=== PATIENT | male | born 1965 | race African-American/Black ===

== ENCOUNTER 2016-03-12 15:49 | Emergency (ER) | payer SELFPAY ==
[~2016-03-12] VITALS: Ht 182.9 cm; Wt 124.7 kg
[~2016-03-12 15:49] MED LIST: ALLP300T PO; AMIT150T3 PO; AMIT25TA9 PO; AMIT50TA3 PO; ASP325T PO; ASP81TEC PO; ASPI-875 PO; ATOR10TA66 PO; CLOP75TA PO; COLC0.6T7 PO; CPR500T PO; CYCL10TA9 PO; DICL50TA4 PO; DULA0.75 SQ; FAMO20TA5 PO; FENO145T2 PO; GLIP5TAB26 PO; GLPZ5TCR PO; GLYB5TAB6; HYDR-1231 PO; HYDR-2858 PO; HYDR-3454 PO; HYDR-3714 PO; HYDR-3816 PO; HYDR1TAB PO; HYOS0.1217 PO; INDO50CA PO; INSASP10V SC; INSASP10V SQ; INSU100I14 SQ; INSU100I5 SQ; INSU100V16 SQ; INSU100V5 SQ; LISI-552 PO; LISI5TAB PO; LISI5TAB14 PO; MAGN400T6 PO; METF-380 PO; METF500T8 PO; METO-272 PO; METO50TA7 PO; NAPR-243 PO; NF-LOVAZAC; NTR.4SL SL; OMEP40CA36 PO; OMG1KC PO; ONDA-42 SL; ONDAN4ODT PO; OXC5T PO; OXYC-109 PO; OXYC20TA63; PNT40TEC PO; PROM25SU10 PR; PROM25TA14 PO; SUCR1ORA5 PO; SULF1TAB35 PO; TIZA2CAP9 PO; TMSL.4C PO; TRAM50TA2 PO; TRM50T PO; [UNRECOGNIZED DRUG - OTHER]; mega red PO
--- OUTSIDE RECORDS SUMMARY | 2016-03-12 15:55 | XMS REPORT | Continuity of Care Document ---
Author Author [facility] Organization [facility] Address Unknown Phone Unavailable Care Team Providers Care Anode Rebuilder Name Role Phone [facility] OF PCP Insurance Providers Payer Name Policy Number Subscriber Name Relationship Unknown Charles Abraham 20 Self / Same As Patient Advance Directives Directive Response Recorded Date/Time Advance Directives No 06/28/15 12:42am Health Care Power of Firer Locomotive Crane No 06/28/15 12:42am Organ Donor No 06/27/15 9:56pm Chief Complaint and Reason for Visit Chief Complaint Abdominal/GI Problems Reason for Visit [id number] Diarrhea [id number] Chronic renal failure Vomiting Problems Active Problems Medical Problem Onset Date Status Abdominal pain, acute, left upper quadrant Unknown Acute Chest pain Unknown Acute Cholelithiasis without obstruction Unknown Acute Chronic renal failure Unknown Acute Diabetes Unknown Acute Diabetes Unknown Acute Diabetes mellitus Unknown Acute Diarrhea Unknown Acute Encounter for medication refill Unknown Acute Encounter for medication refill Unknown Acute Gastroenteritis Unknown Acute Gastroenteritis Unknown Acute Gout of left knee Unknown Acute Hyperglycemia due to type 2 diabetes mellitus Unknown Acute Hypomagnesemia Unknown Acute Hypomagnesemia Unknown Acute Nausea and vomiting Unknown Acute Pancreatitis Unknown Acute Vomiting Unknown Acute Medications Current Home Medications Medication Dose Units Route Directions Days/Qty Instructions Start Date Allopurinol 300 Mg 300 Mg Oral Bedtime 06/28/09 Metoprolol Succinate 50 Mg 50 Mg Oral Bedtime 05/12/12 Glipizide 5 Mg 5 Mg Oral Bedtime 06/04/12 Hydroxyzine Hcl 50 Mg 50 Mg Oral Bedtime 06/04/12 Insulin Detemir 100 Unit/1 Ml 100 Unit Sub-Q Twice A Day 04/16/13 Metformin Hcl (Glucophage) 1,000 Mg 1 Each Oral Twice A Day With Meals 40 09/08/14 Lisinopril 20 Mg 20 Mg Oral Daily 0 06/28/15 Amitriptyline Hcl 50 Mg 100 Mg Oral Bedtime AD TO TAKE 2 TABS (TOTAL OF 100MG) @ HS AND MAY TAKE 3 TABS IF NEEDED 06/28/15 Tizanidine Hcl 2 Mg 2 Mg Oral Three Times A Day 0 FOR SPASMS AND MUSCLE RELAXER 06/28/15 Omeprazole 40 Mg 40 Mg Oral Daily 30 06/28/15 Hydrocodone/Acetaminophen 1 Each 1 Each Oral Every 6 Hours 8 01/02/16 Promethazine Hcl (Phenergan Tablet) 25 Mg 25 Mg Oral Every 8HRS as needed for Nausea/Vomiting 14 01/02/16 Past Home Medications Medication Directions Ordered Status Indomethacin 50 Mg Capsule, 1 Each Oral Three Times A Day 09/15/08 Discontinued Colchicine 0.6 Mg Tablet, 0 Oral As Directed 09/15/08 Discontinued Lisinopril (Zestril) 5 Mg Tablet, 5 Mg Oral Bedtime 04/11/09 Discontinued Glyburide (Micronase) 5 Mg Tablet, 04/11/09 Discontinued [id number] Ethyl Esters 1 Gm Capsule, 04/11/09 Discontinued Insulin Determir 100 Unit/1 Ml Insuln.pen, 100 Unit Sub-Q Twice A Day Discontinued Insulin Aspart 10 Unit/0.1 Ml Vial, 25 Unit Sub-Q Before Meals 04/11/09 Discontinued Oxycodone Hcl 20 Mg Tab.sr.12h, 04/11/09 Discontinued Promethazine Hcl 25 Mg Supp, 25 Mg Rectal Every 4HRS 05/23/09 Discontinued Oxycodone Hcl (Oxycodone Ir) 5 Mg Tab, 5 Mg Oral Every 4HRS 05/23/09 Discontinued Oxycodone Hcl/Acetaminophen 1 Each Tablet, 1 Each Oral Every 4HRS 05/23/09 Discontinued [Isobard] , Daily 01/07/11 Discontinued Clopidogrel Bisulfate 75 Mg Tablet, 75 Mg Oral Daily 01/07/11 Discontinued Acetaminophen/Hydrocodone Bitart 1 Each Tablet, 1 - 2 Each Oral Q4hr Prn 05/09 Discontinued Ciprofloxacin 500 Mg Tablet, 1 Tab Oral Twice A Day 11/27/11 Discontinued Naproxen 500 Mg Tablet, 1 Each Oral Three Times A Day And Prn 11/27/11 Discontinued Tramadol Hcl 50 Mg Tab, 50 Mg Oral Q4-6HOURS as needed 11/27/11 Discontinued Ondansetron Hcl 4 Mg Tab, 4 Mg Oral Every 4HRS 11/27/11 Discontinued Amitriptyline Hcl (Elavil) 25 Mg Tablet, 2 Each Oral Bedtime 03/26/12 Discontinued Atorvastatin Calcium 10 Mg Tablet, 10 Mg Oral Bedtime 03/27/12 Discontinued Fish Oil 1,000 Mg Cap, 1000 Mg Oral Three Times A Day 03/27/12 Discontinued Aspirin 81 Mg Tabec, 81 Mg Oral Daily 03/27/12 Discontinued Nitroglycerin 0.4 Mg Subl, 0.4 Mg Sublingual As Needed 05/12/12 Discontinued Amitriptyline Hcl 150 Mg Tablet, 25 Mg Oral Twice A Day 05/12/12 Discontinued Aspirin 325 Mg Tab, 81 Mg Oral Bedtime 06/04/12 Discontinued Insulin Aspart 10 Unit/0.1 Ml Susp, 6 Unit Subcutaneously Daily@06,11 Discontinued Insulin Aspart 10 Unit/0.1 Ml Susp, 15 Unit Subcutaneously Before Meals 06/04 Discontinued Amitriptyline Hcl (Elavil) 25 Mg Tablet, 1 Tab Oral Bedtime 06/04/12 Discontinued Fenofibrate 145 Mg Tablet, 1 Tab Oral Bedtime 06/04/12 Discontinued Tramadol Hcl 50 Mg Tablet, 50 Mg Oral As Needed 06/04/12 Discontinued [Josue Red] , 1 Tab Oral Bedtime 06/04/12 Discontinued Tramadol Hcl 50 Mg Tab, 50 Mg Oral Every 4HRS 07/10/12 Discontinued Aspirin 81 Mg Tablet.dr, 81 Mg Oral Bedtime 04/16/13 Discontinued Amitriptyline Hcl (Elavil) 50 Mg Tablet, 50 Mg Oral Daily 04/16/13 Discontinued Metformin Hcl (Glucophage Xr) 500 Mg Tab.sr.24h, 1000 Mg Oral Twice A Day Discontinued Cyclobenzaprine Hcl (Flexeril) 10 Mg Tablet, 10 Mg Oral Three Times A Day as needed for Muscle Spasms 04/16/13 Discontinued Tramadol Hcl 50 Mg Tablet, 50 Mg Oral Every 6 Hours as needed for Pain Discontinued Insulin Aspart 100 Unit/1 Ml Insuln.pen, 15 Units Sub-Q Three Times A Day Discontinued Hydrocodone Bit/Acetaminophen 1 Each Tablet, 1-2 Tab Oral Every 4HRS as needed for Pain 04/20/13 Discontinued Hydrocodone Bit/Acetaminophen 1 Tab Tablet, 1-2 Tab Oral Every 6 Hours as needed for Pain 11/06/13 Discontinued Ondansetron Hcl 4 Mg Tab, 4-8 Mg Sublingual Every 6 Hours as needed for Nausea /Vomiting 06/15/14 Discontinued Hyoscyamine Sulfate (Levsin) 0.125 Mg/Tab Tab.rapdis, 1-2 Each Oral Every 4HRS as needed for Diarrhea/Cramping 06/15/14 Discontinued Famotidine (Pepcid) 20 Mg Tablet, 1 Each Oral Twice A Day 06/15/14 Discontinued Magnesium Oxide 400 Mg Tablet, 1 Each Oral Twice A Day With Meals 06/15/14 Discontinued Lisinopril (Lisinopril 5MG) 5 Mg Tablet, 5 Mg Oral Daily 09/08/14 Discontinued Atorvastatin Calcium 10 Mg Tablet, 10 Mg Oral Daily 09/08/14 Discontinued Metoprolol Succinate (Toprol Xl) 50 Mg Tab.sr.24h, 1 Each Oral Daily Discontinued Glipizide (Glucotrol Xl) 5 Mg Tab.osm.24, 1 Each Oral Daily 09/08/14 Discontinued Hydroxyzine Hcl 50 Mg Tablet, 50 Mg Oral Bedtime 09/08/14 Discontinued Amitriptyline Hcl (Elavil) 50 Mg Tablet, 1 Each Oral Bedtime 09/08/14 Discontinued Cyclobenzaprine Hcl (Flexeril) 10 Mg Tablet, 1 Each Oral Every 8HRS as needed for Spasms 09/08/14 Discontinued Insulin Detemir 100 Unit/1 Ml Vial, 100 Unit Sub-Q Twice A Day 09/08/14 Discontinued Indomethacin 50 Mg Capsule, 1 Each Oral Three Times A Day 09/08/14 Discontinued Hydrocodone Bit/Acetaminophen 1 Tab Tablet, 1 Tab Oral Every 4HRS as needed for Pain 09/08/14 Discontinued Sulfamethoxazole/Trimethoprim 1 Each Tablet, 1 Each Oral Twice A Day Discontinued Sucralfate 1 Gm/10 Ml Oral.susp, 1 Gm Oral Qid Ac And Hs 01/12/15 Discontinued Indomethacin 50 Mg Capsule, 50 Mg Oral Three Times A Day 01/12/15 Discontinued Social History Social History Problem Response Recorded Date/Time Alcohol Use Occasionally Uses 06/28/2015 12:39am Recreational Drug Use No 06/28/2015 12:39am Recent Foreign Travel No 11/06/2013 9:25pm Recent Infectious Disease Exposure No 11/06/2013 9:25pm Hospitalization with Isolation Denies 11/06/2013 9:25pm Sexually Transmitted Disease No 01/02/2016 3:28pm HIV/AIDS No 01/02/2016 3:28pm Do you dip or chew tobacco? No 06/27/2015 9:56pm Recent Hopitalizations Y KIDNEY STONES AND GASTROENTERITIS 01/02/2016 3:28pm Sexually Transmitted Disease No 01/02/2016 3:28pm Hospitalization with Isolation Denies 11/06/2013 9:25pm Hospital Discharge Instructions No hospital discharge instructions. Plan of Care Discharge Date 01/02/16 7:05pm Disposition 01 HOME, SELF-CARE Condition at Discharge Stable Instructions/Education Provided Diarrhea in Adolescents and Adults Acute Abdomen (Belly Pain), Adult (DC) Nausea and Vomiting, Adult Prescriptions See Medication Section Referrals [facility] - Primary Care Physician Additional Instructions/Education All discharge instructions reviewed with patient and/or family. Voiced understanding. Clear liquid diet for 24 hours and then advance as tolerated. [facility] tomorrow at 8 a.m. Take medications as directed. Return for worse pain, fever, vomiting, weakness, breathing problems or other concerns as needed. Functional Status No functional status results. Allergies, Adverse Reactions, Alerts No known allergies. Immunizations No immunization records. Vital Signs Acute Vital Signs Vital Response Date/Time Temperature (Fahrenheit) 97.8 degrees F (97.6 - 99.5) 01/02/2016 3:26pm Temperature (Calculated Celsius) 36.85340 degrees C (36.4 - 37.5) 01/02/2016 3:26pm Temperature Source Tympanic 01/02/2016 3:26pm Pulse Rate (adult) 80 bpm (60 - 90) 01/02/2016 3:26pm Respiratory Rate 18 bpm (12 - 24) 01/02/2016 3:26pm O2 Sat by Pulse Oximetry 98 % (88 - 100) 01/02/2016 3:26pm Blood Pressure 131/100 mm Hg 01/02/2016 3:26pm Blood Pressure Mean 110 mm Hg 01/02/2016 3:26pm Pain Numeric Pain Scale 10-Worst Possible Pain 01/02/2016 4:05pm Pain Numeric Pain Scale 10-Worst Possible Pain 01/02/2016 4:05pm Height (Feet) 6 feet 01/02/2016 3:26pm Height (Inches) 1 inches 01/02/2016 3:26pm Height (Calculated Centimeters) 185.478475 cm 01/02/2016 3:26pm Weight (Pounds) 290 pounds 01/02/2016 3:26pm Weight (Calculated Kilograms) 131.336834 kilograms 01/02/2016 3:26pm Capillary Refill Capillary Refill Less Than 3 Seconds 01/02/2016 3:26pm Height 6 ft 1 in Weight 290 lb Body Mass Index 38.3 kg/m^2 Results Laboratory Results Test Name Result Units Flags Reference Collection Date/Time Result Date/ Time Comments White Blood Count 17.2 10^3/uL H 4.3-11.0 01/02/2016 3:35pm 01/02/2016 3: 56pm Red Blood Count 5.02 10^6/uL 4.35-5.85 01/02/2016 3:35pm 01/02/2016 3: 56pm Hemoglobin 13.7 G/DL 13.3-17.7 01/02/2016 3:35pm 01/02/2016 3:56pm Hematocrit 40 % 40-54 01/02/2016 3:35pm 01/02/2016 3:56pm Mean Corpuscular Volume 80 FL 80-99 01/02/2016 3:35pm 01/02/2016 3: 56pm Mean Corpuscular Hemoglobin 27 PG 25-34 01/02/2016 3:35pm 01/02/2016 3: 56pm Mean Corpuscular Hemoglobin Concent 34 G/DL 32-36 01/02/2016 3:35pm 05/2015 3:56pm Red Cell Distribution Width 14.9 % H 10.0-14.5 01/02/2016 3:35pm 2015 3:56pm Platelet Count 308 10^3/uL 130-400 01/02/2016 3:35pm 01/02/2016 3:56pm Mean Platelet Volume 10.3 FL 7.4-10.4 01/02/2016 3:35pm 01/02/2016 3: 56pm Neutrophils (%) (Auto) 87 % H 42-75 01/02/2016 3:35pm 01/02/2016 3:56pm Lymphocytes (%) (Auto) 8 % L 12-44 01/02/2016 3:35pm 01/02/2016 3:56pm Monocytes (%) (Auto) 4 % 0-12 01/02/2016 3:35pm 01/02/2016 3:56pm Eosinophils (%) (Auto) 1 % 0-10 01/02/2016 3:35pm 01/02/2016 3:56pm Basophils (%) (Auto) 0 % 0-10 01/02/2016 3:35pm 01/02/2016 3:56pm Neutrophils # (Auto) 15.0 X 10^3 H 1.8-7.8 01/02/2016 3:35pm 01/02/2016 3 :56pm Lymphocytes # (Auto) 1.4 X 10^3 1.0-4.0 01/02/2016 3:35pm 01/02/2016 3: 56pm Monocytes # (Auto) 0.6 X 10^3 0.0-1.0 01/02/2016 3:35pm 01/02/2016 3: 56pm Eosinophils # (Auto) 0.2 10^3/uL 0.0-0.3 01/02/2016 3:35pm 01/02/2016 3 :56pm Basophils # (Auto) 0.0 10^3/uL 0.0-0.1 01/02/2016 3:35pm 01/02/2016 3: 56pm Neutrophils % (Manual) 79 % 01/02/2016 3:35pm 01/02/2016 4:13pm Band Neutrophils 0 % 01/02/2016 3:35pm 01/02/2016 4:13pm Lymphocytes % (Manual) 15 % 01/02/2016 3:35pm 01/02/2016 4:13pm Monocytes % (Manual) 2 % 01/02/2016 3:35pm 01/02/2016 4:13pm Eosinophils % (Manual) 1 % 01/02/2016 3:35pm 01/02/2016 4:13pm Basophils % (Manual) 2 % 01/02/2016 3:35pm 01/02/2016 4:13pm Metamyelocytes % 1 % 01/02/2016 3:35pm 01/02/2016 4:13pm Blood Morphology Comment NORMAL 01/02/2016 3:35pm 01/02/2016 4: 13pm Urine Color YELLOW 01/02/2016 5:20pm 01/02/2016 5:46pm Urine Clarity CLEAR 01/02/2016 5:20pm 01/02/2016 5:46pm Urine pH 5 5-9 01/02/2016 5:20pm 01/02/2016 5:46pm Urine Specific Valentines 1.015 * 1.016-1.022 01/02/2016 5:20pm 2015 5:46pm Urine Protein 4+ NEGATIVE 01/02/2016 5:20pm 01/02/2016 5:46pm Urine Glucose (UA) 2+ * NEGATIVE 01/02/2016 5:20pm 01/02/2016 5:46pm Urine RBC (Auto) 3+ * NEGATIVE 01/02/2016 5:20pm 01/02/2016 5:46pm Urine Ketones NEGATIVE NEGATIVE 01/02/2016 5:pm 01/02/2016 5:46pm Urine Nitrite NEGATIVE NEGATIVE 01/02/2016 5:20pm 01/02/2016 5:46pm Urine Bilirubin NEGATIVE NEGATIVE 01/02/2016 5:20pm 01/02/2016 5: 46pm Urine Urobilinogen NORMAL MG/DL NORMAL 01/02/2016 5:20pm 01/02/2016 5: 46pm Urine Leukocyte Esterase 1+ * NEGATIVE 01/02/2016 5:20pm 01/02/2016 5: 46pm Urine RBC 5-10 /HPF * 01/02/2016 5:20pm 01/02/2016 5:46pm Urine WBC 10-25 /HPF * 01/02/2016 5:20pm 01/02/2016 5:46pm Urine Bacteria FEW /HPF * 01/02/2016 5:20pm 01/02/2016 5:46pm Urine Squamous Epithelial Cells 0-2 /HPF 01/02/2016 5:20pm 2015 5:46pm Urine Crystals NONE /LPF 01/02/2016 5:20pm 01/02/2016 5:46pm Urine Casts NONE /LPF 01/02/2016 5:20pm 01/02/2016 5:46pm Urine Mucus NEGATIVE /LPF 01/02/2016 5:20pm 01/02/2016 5:46pm Urine Culture Indicated YES 01/02/2016 5:20pm 01/02/2016 5:46pm Sodium Level 137 MMOL/L 135-145 01/02/2016 3:35pm 01/02/2016 4:10pm Potassium Level 4.7 MMOL/L 3.6-5.0 01/02/2016 3:35pm 01/02/2016 4:10pm Chloride Level 107 MMOL/L 98-107 01/02/2016 3:35pm 01/02/2016 4:10pm Carbon Dioxide Level 16 MMOL/L L 21-32 01/02/2016 3:35pm 01/02/2016 4: 10pm Anion Gap 14 MMOL/L 5-14 01/02/2016 3:35pm 01/02/2016 4:10pm Blood Urea Nitrogen 32 MG/DL H 7-18 01/02/2016 3:35pm 01/02/2016 4:10pm Creatinine 2.59 MG/DL H 0.60-1.30 01/02/2016 3:35pm 01/02/2016 4:10pm BUN/Creatinine Ratio 12 01/02/2016 3:35pm 01/02/2016 4:10pm Estimat Glomerular Filtration Rate 32 01/02/2016 3:35pm 01/02/2016 4:10pm GFR INTERPRETIVE DATA UNITS FOR ESTIMATED GFR (eGFR): mL/min/1.73 M2 REFERENCE RANGE FOR ESTIMATED GFR (eGFR) eGFR NORMAL eGFR >60 MODERATELY DECREASED eGFR 30-59 SEVERLY DECREASED eGFR 15-29 KIDNEY FAILURE <15 (OR DIALYSIS) Glucose Level 302 MG/DL H 70-105 01/02/2016 3:35pm 01/02/2016 4:10pm Calcium Level 9.4 MG/DL 8.5-10.1 01/02/2016 3:35pm 01/02/2016 4:10pm Total Bilirubin 0.3 MG/DL 0.1-1.0 01/02/2016 3:35pm 01/02/2016 4:10pm Alkaline Phosphatase 89 U/L 40-136 01/02/2016 3:35pm 01/02/2016 4:10pm Aspartate Amino Transf (AST/SGOT) 17 U/L 5-34 01/02/2016 3:35pm 2015 4:10pm Alanine Aminotransferase (ALT/SGPT) 19 U/L 0-55 01/02/2016 3:35pm 01/01 4:10pm Total Protein 7.4 G/DL 6.4-8.2 01/02/2016 3:35pm 01/02/2016 4:10pm Albumin 3.8 G/DL 3.2-4.5 01/02/2016 3:35pm 01/02/2016 4:10pm Lipase 54 U/L 8-78 01/02/2016 3:35pm 01/02/2016 4:10pm Procedures No known history of procedures. Encounters Encounter Location Arrival/Admit Date Discharge/Depart Date Attending Provider Departed Emergency Room [facility] 01/02/16 3:14pm 01/01 7:05pm ROSALIE BURDICK MD Recent Diagnosis
[2016-03-12 16:09] VITALS: BP 187/97
[2016-03-12] MEDS ORDERED: HYDROcodone/APAP 5 MG/325 MG (LORTAB) TAB PO ONE (17:15)
[2016-03-12 17:31] LABS: BASOPHILS % (AUTO) 0 % (0-10); EOSINOPHILS # (AUTO) 0.1 10^3/uL (0.0-0.3); EOSINOPHILS % (AUTO) 1 % (0-10); LYMPHOCYTES # (AUTO) 2.1 X 10^3 (1.0-4.0); LYMPHOCYTES % (AUTO) 13 % (12-44); MEAN CORPUSCULAR HEMOGLOBIN 28 PG (25-34); MEAN CORPUSCULAR HGB CONC 33 G/DL (32-36); MEAN CORPUSCULAR VOLUME 83 FL (80-99); MEAN PLATELET VOLUME 10.7 FL (7.4-10.4); MONOCYTES # (AUTO) 0.8 X 10^3 (0.0-1.0); MONOCYTES % (AUTO) 5 % (0-12); NEUTROPHILS # (AUTO) 12.9 X 10^3 (1.8-7.8); NEUTROPHILS % (AUTO) 81 % (42-75); PLATELET COUNT 249 10^3/uL (130-400); RED CELL DISTRIBUTION WIDTH 16.1 % (10.0-14.5)
[2016-03-12] MEDS ORDERED: fentaNYL INJECTION 100 MCG/2 ML AMP IM ONE (17:45)
--- NOTE | 2016-03-12 17:49 | ED Lower Extremity ---
General Chief Complaint: Lower Extremity Stated Complaint: R FOOT SWELLING Nursing Triage Note: TO ROOM 06 VIA WC. COMPLAINS OF SEVERE RIGHT FOOT PAIN AND SWELLING X2 DAYS. DENIES INJURY. THINKS IT MIGHT BE GOUT. PT HAS RAN OUT OF HYDROCODONE. Nursing Sepsis Screen: No Definite Risk Source: patient Exam Limitations: no limitations History of Present Illness Time seen by provider: 17:44 Initial Comments To ER accompanied by his with reports of right foot pain for 2 days. Denies injury. He was recently treated for gouty arthropathy of the right knee with steroids. He is also diabetic. He denies fevers or chills. He finished his prednisone about 10 days. Onset: other (2 days ago) Severity: severe Pain/Injury Location: right foot Method of Injury: unknown Modifying Factors: Worse With Movement Allergies and Home Medications Allergies Coded Allergies: No Known Drug Allergies (Unverified , 09/15/08) Home Medications Allopurinol 300 Mg Tablet 300 MG PO HS (Reported) Amitriptyline HCl 50 Mg Tablet #AD 100 MG PO HS TO TAKE 2 TABS (TOTAL OF 100MG) @ HS AND MAY TAKE 3 TABS IF NEEDED Prescribed by: TANNER LONG on 06/28/15 1131 Diclofenac Potassium 50 Mg Tablet #30 50 MG PO Q6H PRN PRN ankle pain/swelling Prescribed by: JOS QUIROZ on 01/09/16 1646 Dulaglutide 0.75 Mg/0.5 Ml Pen.injctr 0.75 MG SQ WEEK (Reported) Hydrocodone/Acetaminophen 1 Each Tablet #8 1 EACH PO Q6H Prescribed by: ROSALIE BURDICK on 01/02/16 1843 Insulin Aspart 100 Unit/1 Ml Susp 30 UNIT SQ AC (Reported) Insulin Detemir 100 Unit/1 Ml Vial 100 UNIT SQ BID (Reported) Metoprolol Succinate 50 Mg Tab 50 MG PO HS (Reported) Omeprazole 40 Mg Capsule.dr #30 40 MG PO DAILY Prescribed by: KAYA BLOOD on 06/28/15 1142 Promethazine HCl 25 Mg Tablet #14 25 MG PO Q8H PRN PRN NAUSEA/VOMITING Prescribed by: ROSALIE BURDICK on 01/02/16 1843 Promethazine HCl 25 Mg Tablet 25 MG PO Q6H PRN PRN NAUSEA/VOMITING (Reported) Tizanidine HCl 2 Mg Capsule #0 2 MG PO TID FOR SPASMS AND MUSCLE RELAXER Prescribed by: TANNER LONG on 06/28/15 1133 Constitutional: see HPI EENTM: see HPI Respiratory: no symptoms reported Cardiovascular: no symptoms reported Genitourinary: no symptoms reported Musculoskeletal: see HPI Skin: see HPI Psychiatric/Neurological: No Symptoms Reported Past Lhvlxzl-Ekjgln-Pvwach Hx Patient Social History Recent Foreign Travel: No Contact w/Someone Who Travel: No Recent Infectious Disease Expo: No Recent Hopitalizations: Yes (KIDNEY STONES AND GASTROENTERITIS) Immunizations Up To Date Tetanus Booster (TDap): More than 5yrs PED Vaccines UTD: Yes Date of Influenza Vaccine: Dec 29, 2010 Seasonal Allergies Seasonal Allergies: No Surgeries HX Surgeries: Yes ("GROWTH UNDER ABDOMEN" REMOVED-BENIGN, PER PT. URETERAL STENTS ) Surgeries: Abdominal, Gallbladder, Renal Respiratory Hx Respiratory Disorders: No Cardiovascular Hx Cardiac Disorders: Yes (has had 2 stents in the past) Cardiac Disorders: High Cholesterol, Hypertension Neurological Hx Neurological Disorders: No Reproductive System Hx Reproductive Disorders: No Sexually Transmitted Disease: No HIV/AIDS: No Genitourinary Hx Genitourinary Disorders: Yes Genitourinary Disorders: Kidney Infection, Kidney Stones Gastrointestinal Hx Gastrointestinal Disorders: Yes Gastrointestinal Disorders: Gastroesophageal Reflux, Gall Bladder Disease Musculoskeletal Hx Musculoskeletal Disorders: Yes (R KNEE PAIN) Musculoskeletal Disorders: Gout Endocrine Hx Endocrine Disorders: Yes Endocrine Disorders: Diabetes, Insulin dep HEENT HX ENT Disorders: No Cancer Hx Cancer: No Psychosocial Hx Psychiatric Problems: Yes Behavioral Health Disorders: Anxiety Integumentary HX Skin/Integumentary Disorder: No Blood Transfusions Hx Blood Disorders: No Adverse Reaction to a Blood Tr: No Family Medical History Significant Family History: No Pertinent Family Hx Family Medial History: Chest pain 03 MOTHER Family history: Arthritis 03 MOTHER Family history: Diabetes mellitus 03 MOTHER 09 BROTHER Family history: Gastrointestinal disease 03 MOTHER 09 BROTHER Family history: Thyroid disorder 03 MOTHER Headache 03 MOTHER Hypercholesterolemia 03 FATHER 03 MOTHER 09 BROTHER Myocardial infarction 03 FATHER 03 MOTHER No Family History of: Abdominal aortic aneurysm Niraj's disease Alcoholism Aphasia Cancer Cancer of colon Cataract Congenital heart disease Congestive heart failure Cystic fibrosis Dementia Dysphagia Family history: Allergy Family history: Alzheimer's disease Family history: Asthma Family history: Breast disease Family history: Cardiovascular disease Family history: Coronary thrombosis Family history: Glaucoma Family history: Hypertension Family history: Osteoporosis Hearing loss Heart disease Hereditary disease History of - anemia History of - disorder History of - respiratory disease History of drug abuse Human immunodeficiency virus (HIV) seropositivity Kidney disease Malignant neoplasm of lung Parkinson's disease Prostate cancer Psychotic disorder Seizure disorder Stroke Tuberculosis Visual impairment Physical Exam Vital Signs Vital Sign - Last 12Hours 03/12/16 16:09 Temp 99.7 Pulse 98 Resp 18 B/P 187/97 Pulse Ox 93 O2 Delivery Room Air Capillary Refill : Less Than 3 Seconds General Appearance: WD/WN no apparent distress HEENT: PERRL/EOMI normal ENT inspection Neck: non-tender full range of motion Respiratory: no respiratory distress no accessory muscle use Hips: bilateral hip non-tender, bilateral hip normal inspection, bilateral hip normal range of motion Legs: bilateral leg non-tender, bilateral leg normal inspection, bilateral leg normal range of motion Knees: bilateral knee non-tender, bilateral knee normal inspection, bilateral knee normal range of motion Ankles: bilateral ankle non-tender, bilateral ankle normal inspection, bilateral ankle normal range of motion Feet: right foot swelling (there is mild swelling of the right foot with most of the tenderness being over the dorsal aspect of the midfoot. There is no particular pain over the first MTP joint. There is no redness swelling or pain to the calf or leg.) Neurologic/Psychiatric: alert normal mood/affect oriented x 3 Skin: normal color warm/dry Progress/Results/Core Measures Results/Orders Lab Results Laboratory Tests Test 03/12/16 17:06 Range/Units Band Neutrophils 0 % Basophils # (Auto) 0.0 0.0-0.1 10^3/uL Basophils % (Manual) 0 % Basophils (%) (Auto) 0 0-10 % Blood Morphology Comment NORMAL C-Reactive Protein High Sensitivity 8.85 H 0.00-0.50 MG/DL Eosinophils # (Auto) 0.1 0.0-0.3 10^3/uL Eosinophils % (Manual) 0 % Eosinophils (%) (Auto) 1 0-10 % Hematocrit 36 L 40-54 % Hemoglobin 12.1 L 13.3-17.7 G/DL Lymphocytes # (Auto) 2.1 1.0-4.0 X 10^3 Lymphocytes % (Manual) 20 % Lymphocytes (%) (Auto) 13 12-44 % Mean Corpuscular Hemoglobin 28 25-34 PG Mean Corpuscular Hemoglobin Concent 33 32-36 G/DL Mean Corpuscular Volume 83 80-99 FL Mean Platelet Volume 10.7 H 7.4-10.4 FL Monocytes # (Auto) 0.8 0.0-1.0 X 10^3 Monocytes % (Manual) 1 % Monocytes (%) (Auto) 5 0-12 % Neutrophils # (Auto) 12.9 H 1.8-7.8 X 10^3 Neutrophils % (Manual) 77 % Neutrophils (%) (Auto) 81 H 42-75 % Platelet Count 249 130-400 10^3/uL Reactive Lymphocytes 2 % Red Blood Count 4.40 4.35-5.85 10^6/uL Red Cell Distribution Width 16.1 H 10.0-14.5 % White Blood Count 16.0 H 4.3-11.0 10^3/uL My Orders Orders-BENJAMIN ANAND APRN Cbc With Automated Diff (03/12/16 16:34) Hs C Reactive Protein (03/12/16 16:34) Hydrocodone/Apap 5/325 Tablet (Lortab 5 (03/12/16 17:15) Foot, Right, 3 View (03/12/16 17:23) Manual Differential (03/12/16 17:06) Basic Metabolic Panel (03/12/16 17:40) Fentanyl Injection (Sublimaze Injection (03/12/16 17:45) Amoxicillin/Clavulanate Tablet (Augmenti (03/12/16 18:00) Medications Given in ED Current Medications Medications Dose Ordered Sig/Augusto Route Start Time Stop Time Status Last Admin Dose Admin Acetaminophen/ Hydrocodone Bitart 1 tab ONCE ONCE PO 03/12/16 17:15 03/12/16 17:16 DC 03/12/16 17:13 1 TAB Fentanyl Citrate 75 mcg ONCE ONCE IM 03/12/16 17:45 03/12/16 17:46 DC 03/12/16 17:58 75 MCG Vital Signs/I&O Vital Sign - Last 12Hours 03/12/16 16:09 Temp 99.7 Pulse 98 Resp 18 B/P 187/97 Pulse Ox 93 O2 Delivery Room Air Blood Pressure Mean: 127 Diagnostic Imaging Diagonstic Imaging: Xray Comments NAME: EVA ABRAHAM [facility] REC#: [id number] PT STATUS: REG ER : 1965 PHYSICIAN: BENJAMIN ANAND APRN ADMIT DATE: 03/12/16/ER Draft Date of Exam:03/12/16 FOOT, RIGHT, 3 VIEW INDICATION: Right foot pain and swelling. EXAMINATION: Three views of the right foot were obtained. FINDINGS: The alignment of the foot is normal. There are mild degenerative changes. There is no fracture or dislocation. There is some degenerative spurring of the inferior calcaneus. There are vascular calcifications. IMPRESSION: Mild degenerative changes; however, no acute fracture or dislocation. Dictated on workstation # [id number] Dict: 03/12/16 1745 Trans: 03/12/16 1749 [facility] [id number] Interpreted by: BISI MOREL Electronically signed by: Departure Impression Impression: Primary Impression: Cellulitis of foot Disposition: HOME, SELF-CARE Condition: Stable Departure-Patient Inst. Decision time for Depature: 17:51 Referrals: [facility] (PCP/Family) Primary Care Physician Patient Instructions: Cellulitis (Skin Infection), Adult (DC) Add. Discharge Instructions: 1. REturn to Er for any fevers, worsening swelling or redness 2. Antibiotics as directed. This is far more important than pain medication so if you can only afford one medication, choose the antibiotics 3. Follow-up with [facility] walk-in clinic on Tuesday. All discharge instructions reviewed with patient and/or family. Voiced understanding. Scripts Oxycodone HCl/Acetaminophen (Percocet 5-325 mg Tablet)1 Each Tablet1 Each PO Q4H PRN PAIN #10 TAB Do not fill unless the Augmentin is also filled Prov:BENJAMIN ANAND PIGMENT FURNACE TENDER 03/12/16 Amoxicillin/Potassium Clav (Augmentin 875-125 Tablet)1 Each Tablet1 Each PO BID #20 TAB Prov:BENJAMIN ANAND PIGMENT FURNACE TENDER 03/12/16 BENJAMIN ANAND PIGMENT FURNACE TENDER Mar 12, 2016 17:48
[2016-03-12 17:50] LABS: BAND NEUTROPHILS 0 %; BASOPHILS % (MANUAL) 0 %; EOSINOPHILS % (MANUAL) 0 %; LYMPHOCYTES % (MANUAL) 20 %; NEUTROPHILS % (MANUAL) 77 %; REACTIVE LYMPHOCYTES 2 %
[2016-03-12] MEDS ORDERED: AUGMENTIN 875 MG TAB (AMOXICILLIN/CLAVULANATE) PO SCH (18:00)
[2016-03-12 18:03] LABS: CALCIUM 9.2 MG/DL (8.5-10.1); CREATININE SERUM 2.29 MG/DL (0.60-1.30); POTASSIUM 4.1 MMOL/L (3.6-5.0)
[2016-03-12] MEDS ORDERED: AMOX-358 PO (18:03)
[2016-03-12] MEDS ORDERED: OXYC-197 PO (18:03)
== END 2016-03-12 18:18 | disposition home or self-care (01) ==
LOC: EDUNIT# 15:49 → ER 15:50
DX: L03.115 Cellulitis of right lower limb (principal); I10 Essential (primary) hypertension; E11.9 Type 2 diabetes mellitus without complications; Z79.899 Other long term (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 therapy; Z79.4 Long term (current) use of insulin; Z95.5 Presence of coronary angioplasty implant and graft
CPT/HCPCS: 36415; 73630; 80048; 85007; 85027; 86141; 96372; 99281

== ENCOUNTER 2016-03-18 14:01 | Emergency (ER) | payer SELFPAY ==
[~2016-03-18] VITALS: Ht 185.4 cm; Wt 124.7 kg
[~2016-03-18 14:01] MED LIST changes: +AMOX-358 PO; +OXYC-197 PO
--- OUTSIDE RECORDS SUMMARY | 2016-03-18 14:08 | XMS REPORT | Continuity of Care Document ---
Author Author [facility] Organization [facility] Address Unknown Phone Unavailable Care Team Providers Care Casino Runner Name Role Phone [facility] Insurance Providers Payer Name Policy Number Subscriber Name Relationship Unknown Charles Abraham 20 Self / Same As Patient Advance Directives Directive Response Recorded Date/Time Advance Directives No 06/28/15 12:42am Health Care Power of Pharmacy Clinical Specialist No 06/28/15 12:42am Organ Donor No 06/27/15 9:56pm Chief Complaint and Reason for Visit Chief Complaint Abdominal/GI Problems Reason for Visit [id number] Diarrhea [id number] Chronic renal failure Vomiting Problems Active Problems [...] Glyburide (Micronase) 5 Mg Tablet, 04/11/09 Discontinued [id number]-[id number] Ethyl Esters 1 Gm Capsule, 04/11/09 Discontinued [...] Vomiting, Adult Prescriptions See Medication Section Referrals [facility] - Primary Care Physician Additional Instructions/Education All discharge instructions reviewed with patient and/or family. Voiced understanding. Clear liquid diet for 24 hours and then advance as tolerated. Follow-up with the [facility] walk-in clinic tomorrow at 8 a.m. Take medications as directed. Return for worse pain, fever, vomiting, weakness, breathing problems or other concerns as needed. Functional Status No functional status results. Allergies, Adverse Reactions, Alerts No known allergies. Immunizations No immunization records. Vital Signs Acute Vital Signs Vital Response Date/Time Temperature (Fahrenheit) 97.8 degrees F (97.6 - 99.5) 01/02/2016 3:26pm Temperature (Calculated Celsius) 36.04529 degrees C (36.4 - 37.5) 01/02/2016 3:26pm [...] 1 inches 01/02/2016 3:26pm Height (Calculated Centimeters) 185.284363 cm 01/02/2016 3:26pm Weight (Pounds) 290 pounds 01/02/2016 3:26pm Weight (Calculated Kilograms) 131.089250 kilograms 01/02/2016 3:26pm Capillary Refill Capillary Refill [...] 5-9 01/02/2016 5:20pm 01/02/2016 5:46pm Urine Specific [place] 1.015 * 1.016-1.022 01/02/2016 5:20pm 2015 5:46pm [...] Date Attending Provider Departed Emergency Room [facility] 01/02/16 3:14pm 01/01 7:05pm ROSALIE BURDICK MD Recent Diagnosis
--- NOTE | 2016-03-18 16:53 | ED Lower Extremity ---
General Chief Complaint: Lower Extremity Stated Complaint: RIGHT FOOT PAIN Nursing Triage Note: PT TO ED 10 W/ C/O RT FOOT PAIN. PT REPORTS WAS SEEN IN THIS ED OVER THE PAST WEEK ET AT PCP'S ET DENIES IMPROVEMENT. NO OTHER C/O VOICED Nursing Sepsis Screen: No Definite Risk (MIKHAIL ARCHIBALD) History of Present Illness Time seen by provider: 16:10 Initial Comments Evaluation of continued right foot pain and swelling. (MIKHAIL ARCHIBALD) Allergies and Home Medications Allergies Coded Allergies: No Known Drug Allergies (Unverified , 09/15/08) Home Medications Allopurinol 300 Mg Tablet 300 MG PO HS (Reported) Amitriptyline HCl 50 Mg Tablet #AD 100 MG PO HS TO TAKE 2 TABS (TOTAL OF 100MG) @ HS AND MAY TAKE 3 TABS IF NEEDED Prescribed by: TANNER LONG on 06/28/15 1131 Amoxicillin/Potassium Clav 1 Each Tablet #20 1 EACH PO BID Prescribed by: BENJAMIN ANAND on 03/12/16 180 Diclofenac Potassium 50 Mg Tablet #30 50 MG PO Q6H PRN PRN ankle pain/swelling Prescribed by: JOS QUIROZ on 01/09/16 1646 Dulaglutide 0.75 Mg/0.5 Ml Pen.injctr 0.75 MG SQ WEEK (Reported) Hydrocodone/Acetaminophen 1 Each Tablet #8 1 EACH PO Q6H Prescribed by: ROSALIE BURDICK on 01/02/16 1843 Insulin Aspart 100 Unit/1 Ml Susp 30 UNIT SQ AC (Reported) Insulin Detemir 100 Unit/1 Ml Vial 100 UNIT SQ BID (Reported) Metoprolol Succinate 50 Mg Tab 50 MG PO HS (Reported) Naproxen 500 Mg Tablet #40 500 MG PO Q12H Prescribed by: MIKHAIL ARCHIBALD on 03/18/16 1737 Omeprazole 40 Mg Capsule.dr #30 40 MG PO DAILY Prescribed by: KAYA BLOOD on 06/28/15 1142 Oxycodone HCl/Acetaminophen 1 Each Tablet #10 1 EACH PO Q4H PRN PRN PAIN Do not fill unless the Augmentin is also filled Prescribed by: BENJAMIN ANAND on 03/12/16 1803 Promethazine HCl 25 Mg Tablet #14 25 MG PO Q8H PRN PRN NAUSEA/VOMITING Prescribed by: ROSALIE BURDICK on 01/02/16 1843 Promethazine HCl 25 Mg Tablet 25 MG PO Q6H PRN PRN NAUSEA/VOMITING (Reported) Tizanidine HCl 2 Mg Capsule #0 2 MG PO TID FOR SPASMS AND MUSCLE RELAXER Prescribed by: TANNER LONG on 06/28/15 1133 Constitutional: no symptoms reported see HPI EENTM: no symptoms reported see HPI Respiratory: no symptoms reported see HPI Cardiovascular: no symptoms reported see HPI Gastrointestinal: no symptoms reported see HPI Genitourinary: no symptoms reported see HPI Musculoskeletal: see HPI joint pain muscle pain other (Swelling, soft tissue tenderness, no erythema. Right foot. Sensation intact, pedal pulses 1+ and symmetric) Skin: no symptoms reported see HPI Psychiatric/Neurological: No Symptoms Reported See HPI (MIKHAIL ARCHIBALD) All Other Systems Reviewed Negative Unless Noted: Yes (MIKHAIL ARCHIBALD) Past Xypsdhd-Tfdkku-Cvbrfo Hx Patient Social History Alcohol Use: Rarely Uses Recreational Drug Use: Yes (MARIJUANA) Smoking Status: Current Everyday Smoker Recent Foreign Travel: No Contact w/Someone Who Travel: No Recent Infectious Disease Expo: No Recent Hopitalizations: Yes (KIDNEY STONES AND GASTROENTERITIS) Physical Abuse Screen: No Sexual Abuse: No (MIKHAIL ARCHIBALD) Immunizations Up To Date Tetanus Booster (TDap): More than 5yrs PED Vaccines UTD: Yes Date of Influenza Vaccine: Dec 29, 2010 (MIKHAIL ARCHIBALD) Seasonal Allergies Seasonal Allergies: No (MIKHAIL ARCHIBALD) Surgeries HX Surgeries: Yes ("GROWTH UNDER ABDOMEN" REMOVED-BENIGN, PER PT. URETERAL STENTS ) Surgeries: Abdominal, Gallbladder, Renal (MIKHAIL ARCHIBALD) Respiratory Hx Respiratory Disorders: No (MIKHAIL ARCHIBALD) Cardiovascular Hx Cardiac Disorders: Yes (has had 2 stents in the past) Cardiac Disorders: High Cholesterol, Hypertension (MIKHAIL ARCHIBALD) Neurological Hx Neurological Disorders: No (MIKHAIL ARCHIBALD) Reproductive System Hx Reproductive Disorders: No Sexually Transmitted Disease: No HIV/AIDS: No (MIKHAIL ARCHIBALD) Genitourinary Hx Genitourinary Disorders: Yes Genitourinary Disorders: Kidney Infection, Kidney Stones (MIKHAIL ARCHIBALD) Gastrointestinal Hx Gastrointestinal Disorders: Yes Gastrointestinal Disorders: Gastroesophageal Reflux, Gall Bladder Disease (MIKHAIL ARCHIBALD) Musculoskeletal Hx Musculoskeletal Disorders: Yes (R KNEE PAIN) Musculoskeletal Disorders: Gout (MIKHAIL ARCHIBALD) Endocrine Hx Endocrine Disorders: Yes Endocrine Disorders: Diabetes, Insulin dep (MIKHAIL ARCHIBALD) HEENT HX ENT Disorders: No (MIKHAIL ARCHIBALD) Cancer Hx Cancer: No (MIKHAIL ARCHIBALD) Psychosocial Hx Psychiatric Problems: Yes Behavioral Health Disorders: Anxiety (MIKHAIL ARCHIBALD) Integumentary HX Skin/Integumentary Disorder: No (MIKHAIL ARCHIBALD) Blood Transfusions Hx Blood Disorders: No Adverse Reaction to a Blood Tr: No (MIKHAIL ARCHIBALD) Reviewed Nursing Assessment Reviewed/Agree w Nursing PMH: Yes (MIKHAIL ARCHIBALD) Family Medical History Significant Family History: No Pertinent Family Hx Family Medial History: Chest pain 03 MOTHER Family history: Arthritis 03 MOTHER Family history: Diabetes mellitus 03 MOTHER 09 BROTHER Family history: Gastrointestinal disease 03 MOTHER 09 BROTHER Family history: Thyroid disorder 03 MOTHER Headache 03 MOTHER Hypercholesterolemia 03 FATHER 03 MOTHER 09 BROTHER Myocardial infarction 03 FATHER 03 MOTHER No Family History of: Abdominal aortic aneurysm [place] disease Alcoholism Aphasia Cancer Cancer of colon Cataract Congenital heart disease Congestive heart failure Cystic fibrosis Dementia Dysphagia Family history: Allergy Family history: Alzheimer's disease Family history: Asthma Family history: Breast disease Family history: Cardiovascular disease Family history: Coronary thrombosis Family history: Glaucoma Family history: Hypertension Family history: Osteoporosis Hearing loss Heart disease Hereditary disease History of - anemia History of - disorder History of - respiratory disease History of drug abuse Human immunodeficiency virus (HIV) seropositivity Kidney disease Malignant neoplasm of lung Parkinson's disease Prostate cancer Psychotic disorder Seizure disorder Stroke Tuberculosis Visual impairment (MIKHAIL ARCHIBALD) Family Medial History: Chest pain 03 MOTHER Family history: Arthritis 03 MOTHER Family history: Diabetes mellitus 03 MOTHER 09 BROTHER Family history: Gastrointestinal disease 03 MOTHER 09 BROTHER Family history: Thyroid disorder 03 MOTHER Headache 03 MOTHER Hypercholesterolemia 03 FATHER 03 MOTHER 09 BROTHER Myocardial infarction 03 FATHER 03 MOTHER No Family History of: Abdominal aortic aneurysm Niraj's disease Alcoholism Aphasia Cancer Cancer of colon Cataract Congenital heart disease Congestive heart failure Cystic fibrosis Dementia Dysphagia Family history: Allergy Family history: Alzheimer's disease Family history: Asthma Family history: Breast disease Family history: Cardiovascular disease Family history: Coronary thrombosis Family history: Glaucoma Family history: Hypertension Family history: Osteoporosis Hearing loss Heart disease Hereditary disease History of - anemia History of - disorder History of - respiratory disease History of drug abuse Human immunodeficiency virus (HIV) seropositivity Kidney disease Malignant neoplasm of lung Parkinson's disease Prostate cancer Psychotic disorder Seizure disorder Stroke Tuberculosis Visual impairment (ROSALIE BURDICK MD) Physical Exam Vital Signs Vital Sign - Last 12Hours 03/18/16 14:48 Temp 98.4 Pulse 84 Resp 20 B/P 155/94 Pulse Ox 96 O2 Delivery Room Air (ROSALIE BURDICK MD) Vital Signs Capillary Refill : Less Than 3 Seconds (MIKHAIL ARCHIBALD) General Appearance: WD/WN no apparent distress HEENT: PERRL/EOMI normal ENT inspection TMs normal pharynx normal Neck: non-tender full range of motion supple normal inspection Cardiovascular: normal peripheral pulses regular rate, rhythm no murmur Respiratory: chest non-tender lungs clear normal breath sounds no respiratory distress Gastrointestinal: normal bowel sounds non tender soft Hips: bilateral hip non-tender, bilateral hip normal inspection, bilateral hip normal range of motion Knees: right knee non-tender, right knee normal inspection, right knee normal range of motion, left knee pain, left knee soft tissue tenderness (no effusion) Ankles: bilateral ankle non-tender, bilateral ankle normal inspection, bilateral ankle normal range of motion Feet: left foot non-tender, left foot normal inspection, left foot normal range of motion, left foot no evidence of injury, right foot pain, right foot soft tissue tenderness, right foot swelling Neurologic/Tendon: normal sensation normal motor functions normal tendon functions Neurologic/Psychiatric: no motor/sensory deficits alert normal mood/affect oriented x 3 Skin: normal color warm/dry Lymphatic: no adenopathy (MIKHAIL ARCHIBALD) Progress/Results/Core Measures Results/Orders Lab Results Laboratory Tests Test 03/18/16 17:00 Range/Units Alanine Aminotransferase (ALT/SGPT) 17 0-55 U/L Albumin 3.3 3.2-4.5 G/DL Alkaline Phosphatase 77 40-136 U/L Anion Gap 11 5-14 MMOL/L Aspartate Amino Transf (AST/SGOT) 18 5-34 U/L BUN/Creatinine Ratio 9 Basophils # (Auto) 0.0 0.0-0.1 10^3/uL Basophils (%) (Auto) 0 0-10 % Blood Urea Nitrogen 21 H 7-18 MG/DL Calcium Level 9.3 8.5-10.1 MG/DL Carbon Dioxide Level 25 21-32 MMOL/L Chloride Level 104 98-107 MMOL/L Creatinine 2.29 H 0.60-1.30 MG/DL Eosinophils # (Auto) 0.2 0.0-0.3 10^3/uL Eosinophils (%) (Auto) 2 0-10 % Estimat Glomerular Filtration Rate 37 Glucose Level 136 H 70-105 MG/DL Hematocrit 39 L 40-54 % Hemoglobin 13.1 L 13.3-17.7 G/DL Lymphocytes # (Auto) 1.7 1.0-4.0 X 10^3 Lymphocytes (%) (Auto) 14 12-44 % Mean Corpuscular Hemoglobin 28 25-34 PG Mean Corpuscular Hemoglobin Concent 33 32-36 G/DL Mean Corpuscular Volume 83 80-99 FL Mean Platelet Volume 9.4 7.4-10.4 FL Monocytes # (Auto) 0.6 0.0-1.0 X 10^3 Monocytes (%) (Auto) 5 0-12 % Neutrophils # (Auto) 9.9 H 1.8-7.8 X 10^3 Neutrophils (%) (Auto) 80 H 42-75 % Platelet Count 280 130-400 10^3/uL Potassium Level 4.4 3.6-5.0 MMOL/L Red Blood Count 4.72 4.35-5.85 10^6/uL Red Cell Distribution Width 16.2 H 10.0-14.5 % Sodium Level 140 135-145 MMOL/L Total Bilirubin 0.2 0.1-1.0 MG/DL Total Protein 6.7 6.4-8.2 G/DL White Blood Count 12.5 H 4.3-11.0 10^3/uL (ROSALIE BURDICK MD) Vital Signs/I&O Vital Sign - Last 12Hours 03/18/16 03/18/16 14:48 17:39 Temp 98.4 Pulse 84 88 Resp 20 20 B/P 155/94 Pulse Ox 96 98 O2 Delivery Room Air Room Air (ROSALIE BURDICK MD) Blood Pressure Mean: 114 Progress Note : Time: 16:10 Progress Note Initial evaluation completed, labs ordered. 1700 WBC down to 12.5 (16 on 03/12/16) Glucose 136. (MIKHAIL ARCHIBALD) Progress Note : Progress Note 03/21/16:90 have reviewed the chart. Patient noted to have renal dysfunction that is chronic. I called and spoke with the patient. He has not filled his prescription for Naprosyn. I informed him of his renal dysfunction that is chronic. He has appointment on Tuesday with his clinic and will follow up with them for recheck and further evaluation and further prescriptions as needed. I did call [facility] and canceled the prescription. Patient was informed to avoid NSAIDs overall due to the chronic renal dysfunction. Patient verbalize understanding and agreement. Patient instructed to return for any worsening or other concerns as needed. Patient verbalized understanding and agreement. (ROSALIE BURDICK MD) Departure Impression Impression: Primary Impression: Cellulitis of foot Disposition: HOME, SELF-CARE Condition: Stable Departure-Patient Inst. Decision time for Depature: 17:35 (MIKHAIL ARCHIBALD) Referrals: [facility] (PCP/Family) Primary Care Physician Patient Instructions: Cellulitis (Skin Infection), Adult (DC) Add. Discharge Instructions: All discharge instructions reviewed with patient and/or family. Voiced understanding. Warm moist compresses every 2-3 hours to right foot. Keep foot elevated, move toes and ankle regularly. Use Naproxen for 3-4 days, then discontinue. Follow up with [facility] next . Scripts Naproxen 500 Mg [id number] Mg PO Q12H #40 TAB Ref 0 Prov:MIKHAIL ARCHIBALD 03/18/16 Work/School Note: Work Release Form Date Seen in the Emergency Department: Mar 18, 2016 Return to Work: Mar 29, 2016 Restrictions: No Restrictions Copy Copies To 1: CHARMAINE MERRILL AMY ARNP Mar 18, 2016 16:53 ROSALIE BURDICK MD Mar 21, 2016 11:00
[2016-03-18 17:05] LABS: BASOPHILS % (AUTO) 0 % (0-10); EOSINOPHILS # (AUTO) 0.2 10^3/uL (0.0-0.3); EOSINOPHILS % (AUTO) 2 % (0-10); LYMPHOCYTES # (AUTO) 1.7 X 10^3 (1.0-4.0); LYMPHOCYTES % (AUTO) 14 % (12-44); MEAN CORPUSCULAR HEMOGLOBIN 28 PG (25-34); MEAN CORPUSCULAR HGB CONC 33 G/DL (32-36); MEAN CORPUSCULAR VOLUME 83 FL (80-99); MEAN PLATELET VOLUME 9.4 FL (7.4-10.4); MONOCYTES # (AUTO) 0.6 X 10^3 (0.0-1.0); MONOCYTES % (AUTO) 5 % (0-12); NEUTROPHILS # (AUTO) 9.9 X 10^3 (1.8-7.8); NEUTROPHILS % (AUTO) 80 % (42-75); PLATELET COUNT 280 10^3/uL (130-400); RED BLOOD COUNT 4.72 10^6/uL (4.35-5.85); RED CELL DISTRIBUTION WIDTH 16.2 % (10.0-14.5); WHITE BLOOD COUNT 12.5 10^3/uL (4.3-11.0)
[2016-03-18 17:24] LABS: ALBUMIN 3.3 G/DL (3.2-4.5); BILIRUBIN,TOTAL 0.2 MG/DL (0.1-1.0); CALCIUM 9.3 MG/DL (8.5-10.1); CREATININE SERUM 2.29 MG/DL (0.60-1.30); POTASSIUM 4.4 MMOL/L (3.6-5.0); TOTAL PROTEIN 6.7 G/DL (6.4-8.2)
[2016-03-18] MEDS ORDERED: NAPR500T3 PO (17:37)
[2016-03-18 17:39] VITALS: BP 151/98
== END 2016-03-18 17:39 | disposition home or self-care (01) ==
LOC: EDUNIT# 14:01 → ER 14:04
DX: L03.115 Cellulitis of right lower limb (principal); I10 Essential (primary) hypertension; E11.9 Type 2 diabetes mellitus without complications; F17.210 Nicotine dependence, cigarettes, uncomplicated; Z79.899 Other long term (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 therapy; Z79.4 Long term (current) use of insulin; Z95.5 Presence of coronary angioplasty implant and graft
CPT/HCPCS: 36415; 80053; 85025; 99283

== ENCOUNTER 2016-04-04 21:55 | Emergency (ER) | payer SELFPAY ==
[~2016-04-04] VITALS: Ht 185.4 cm; Wt 129.3 kg
[~2016-04-04 21:55] MED LIST changes: +NAPR500T3 PO
--- OUTSIDE RECORDS SUMMARY | 2016-04-04 22:03 | XMS REPORT | Continuity of Care Document ---
Author Author [facility] Organization [facility] Address Unknown Phone Unavailable Care Team Providers Care Brass Molder Helper Name Role Phone [facility] OF PCP Insurance Providers Payer Name Policy Number Subscriber Name Relationship Unknown Charles Abraham 20 Self / Same As Patient Advance Directives Directive Response Recorded Date/Time Advance Directives No 06/28/15 12:42am Health Care Power of Insurance Office Manager No 06/28/15 12:42am Organ Donor No 06/27/15 9:56pm Chief Complaint and Reason for Visit Chief Complaint Abdominal/GI Problems Reason for Visit [id number] Diarrhea [id number] Chronic renal failure Vomiting Problems Active Problems [...] Glyburide (Micronase) 5 Mg Tablet, 04/11/09 Discontinued Pywtd-5-[id number] Ethyl Esters 1 Gm Capsule, 04/11/09 Discontinued [...] Vomiting, Adult Prescriptions See Medication Section Referrals [facility] - Primary Care Physician Additional Instructions/Education All discharge instructions reviewed with patient and/or family. Voiced understanding. Clear liquid diet for 24 hours and then advance as tolerated. Follow-up with the [facility] tomorrow at 8 a.m. Take medications as directed. Return for worse pain, fever, vomiting, weakness, breathing problems or other concerns as needed. Functional Status No functional status results. Allergies, Adverse Reactions, Alerts No known allergies. Immunizations No immunization records. Vital Signs Acute Vital Signs Vital Response Date/Time Temperature (Fahrenheit) 97.8 degrees F (97.6 - 99.5) 01/02/2016 3:26pm Temperature (Calculated Celsius) 36.71875 degrees C (36.4 - 37.5) 01/02/2016 3:26pm [...] 1 inches 01/02/2016 3:26pm Height (Calculated Centimeters) 185.110312 cm 01/02/2016 3:26pm Weight (Pounds) 290 pounds 01/02/2016 3:26pm Weight (Calculated Kilograms) 131.899740 kilograms 01/02/2016 3:26pm Capillary Refill Capillary Refill [...] 5-9 01/02/2016 5:20pm 01/02/2016 5:46pm Urine Specific [place] 1.015 * 1.016-1.022 01/02/2016 5:20pm 2015 5:46pm [...] Date Attending Provider Departed Emergency Room [facility] 01/02/16 3:14pm 01/01 7:05pm ROSALIE BURDICK MD Recent Diagnosis
[2016-04-04] MEDS ORDERED: FAMOTIDINE 20MG/2ML IV (PEPCID) IV STA (22:35)
[2016-04-04] MEDS ORDERED: NS IV 1000 ML 1,000 ML IV ONE ×2 (22:35→23:32)
[2016-04-04] MEDS ORDERED: ONDANSETRON 4 MG/2 ML (SDV) Z0FRAN IVP ONE (22:45)
[2016-04-04 22:47] LABS: BASOPHILS # (AUTO) 0.1 10^3/uL (0.0-0.1); BASOPHILS % (AUTO) 0 % (0-10); EOSINOPHILS # (AUTO) 0.2 10^3/uL (0.0-0.3); EOSINOPHILS % (AUTO) 1 % (0-10); LYMPHOCYTES # (AUTO) 2.5 X 10^3 (1.0-4.0); LYMPHOCYTES % (AUTO) 17 % (12-44); MEAN CORPUSCULAR HEMOGLOBIN 28 PG (25-34); MEAN CORPUSCULAR HGB CONC 34 G/DL (32-36); MEAN CORPUSCULAR VOLUME 82 FL (80-99); MEAN PLATELET VOLUME 9.6 FL (7.4-10.4); MONOCYTES # (AUTO) 0.6 X 10^3 (0.0-1.0); MONOCYTES % (AUTO) 5 % (0-12); NEUTROPHILS % (AUTO) 77 % (42-75); PLATELET COUNT 312 10^3/uL (130-400); RED BLOOD COUNT 4.67 10^6/uL (4.35-5.85); RED CELL DISTRIBUTION WIDTH 16.5 % (10.0-14.5); WHITE BLOOD COUNT 14.3 10^3/uL (4.3-11.0)
[2016-04-04 23:00] LABS: BAND NEUTROPHILS 17 %; BASOPHILS % (MANUAL) 0 %; EOSINOPHILS % (MANUAL) 0 %; LYMPHOCYTES % (MANUAL) 2 %; NEUTROPHILS % (MANUAL) 79 %
[2016-04-04 23:08] LABS: ALBUMIN 3.5 G/DL (3.2-4.5); BILIRUBIN,TOTAL 0.4 MG/DL (0.1-1.0); CALCIUM 9.6 MG/DL (8.5-10.1); CREATININE SERUM 2.71 MG/DL (0.60-1.30); MAGNESIUM 1.7 MG/DL (1.8-2.4); TOTAL PROTEIN 7.2 G/DL (6.4-8.2); URIC ACID 8.3 MG/DL (2.6-7.2)
[2016-04-04] MEDS ORDERED: PROMETHAZINE INJ 25 MG/ML (PHENERGAN) AMP IVP ONE (23:45)
[2016-04-05 00:44] LABS: BILIRUBIN,URINE NEGATIVE (NEGATIVE); KETONES,URINE 1+ (NEGATIVE); LEUKOCYTE ESTERASE ,URINE 2+ (NEGATIVE); NITRITE,URINE NEGATIVE (NEGATIVE); PH,URINE 7 (5-9); PROTEIN,URINE 4+ (NEGATIVE); UROBILINOGEN,URINE NORMAL (NORMAL)
[2016-04-05 01:03] LABS: SQUAMOUS EPITHELIAL CELL,UR RARE /HPF; WBC,URINE >100 /HPF
[2016-04-05 01:04] LABS: TRICHOMONAS,URINE FEW /HPF
[2016-04-05] MEDS ORDERED: METR500T PO (01:06)
[2016-04-05] MEDS ORDERED: SULF1TAB35 PO (01:06)
--- NOTE | 2016-04-05 01:06 | ED GI ---
General Chief Complaint: Abdominal/GI Problems Stated Complaint: N/V, R FOOT SWELLING, FEVER Nursing Triage Note: nausea/vomitting/abdominal pain x2 days. Sepsis Screen: Possible Sepsis Risk Source of Information: Spouse (/S.O. DOES ALL TALKING FOR PT) History of Present Illness Time Seen By Provider: 22:25 Initial Comments C/O NAUSEA/VOMITING/DIARRHEA AND GENERALIZED ABDOMINAL PAIN X 2 DAYS VOMITED >10 <20 TIMES TODAY-NO HEMATEMESIS OR COFFEE GROUND EMESIS DIARRHEA X 2 TODAY--NO BLACK/BLOODY/TARRY STOOLS NO URINARY DIFFICULTY STATES HE HAS NOT EATEN IN 2 DAYS AND CAN'T KEEP ANYTHING DOWN C/O CHILLS, NO KNOWN FEVER HAS HAD SLIGHT COUGH PT IS CURRENTLY BEING TREATED FOR GOUT AND CELLULITIS OF RIGHT FOOT--STARTED ON LEFT FOOT, THEN MOVED TO RIGHT FOOT--STATES PAIN IS ONLY WHEN HE BEARS WEIGHT ON RIGHT FOOT. NO INJURY TO EITHER FOOT. PT ALSO HAS PERIPHERAL NEUROPATHY PT WAS ON AUGMENTIN 500 MG AND WAS INCREASED TO 1000 MG ON TUESDAY BY EARLY CHILDHOOD EDUCATION SPECIALIST CHAPARRO MUJICA. PT STATES SINCE HE INCREASED DOSE, THESE SYMPTOMS BEGAN--NO PROBLEMS ON LOWER DOSE HE DOES STATE THAT PAIN IN FOOT IS MUCH BETTER SINCE INCREASING THE DOSE AFTER 1 DAY SEEN IN ER 02/22/16 FOR RIGHT KNEE EFFUSION AND TOOK PREDNISONE X 10 DAYS SEEN IN ER 03/12/16 FOR CELLULITIS IN RIGHT FOOT--RX FOR NAPROXEN WAS CANCELLED DUE TO RENAL INSUFFICIENCY. NO OTHER RX GIVEN SEEN AGAIN IN ER FOR CELLULITIS IN RIGHT FOOT--RX FOR AUGMENTIN 875 MG GIVEN NO SICK CONTACTS OR SUSPICIOUS FOODS PT IS DIABETIC, AND BLOOD SUGARS HAVE BEEN IN 80'S AND 90'S FOR THE LAST 2 DAYS , BUT HAS CONTINUED TO GIVE HIM LONG ACTING INSULIN. PCP: TORRI-TESFAYE Allergies and Home Medications Allergies Coded Allergies: No Known Drug Allergies (Unverified , 09/15/08) Home Medications Allopurinol 300 Mg Tablet 300 MG PO HS (Reported) Amitriptyline HCl 50 Mg Tablet #AD 100 MG PO HS TO TAKE 2 TABS (TOTAL OF 100MG) @ HS AND MAY TAKE 3 TABS IF NEEDED Prescribed by: TANNER LONG on 06/28/15 1131 Amoxicillin/Potassium Clav 1 Each Tablet #20 1 EACH PO BID Prescribed by: BENJAMIN ANAND on 03/12/16 1803 Diclofenac Potassium 50 Mg Tablet #30 50 MG PO Q6H PRN PRN ankle pain/swelling Prescribed by: JOS QUIROZ on 01/09/16 1646 Dulaglutide 0.75 Mg/0.5 Ml Pen.injctr 0.75 MG SQ WEEK (Reported) Hydrocodone/Acetaminophen 1 Each Tablet #8 1 EACH PO Q6H Prescribed by: ROSALIE BURDICK on 01/02/16 1843 Insulin Aspart 100 Unit/1 Ml Susp 30 UNIT SQ AC (Reported) Insulin Detemir 100 Unit/1 Ml Vial 100 UNIT SQ BID (Reported) Metoprolol Succinate 50 Mg Tab 50 MG PO HS (Reported) Metronidazole 500 Mg Tablet #40 500 MG PO QID Prescribed by: ANGELIA CHAMORRO on 04/05/16 0106 Naproxen 500 Mg Tablet #40 500 MG PO Q12H Prescribed by: MIKHAIL ARCHIBALD on 03/18/16 1737 Omeprazole 40 Mg Capsule.dr #30 40 MG PO DAILY Prescribed by: KAYA BLOOD on 06/28/15 1142 Oxycodone HCl/Acetaminophen 1 Each Tablet #10 1 EACH PO Q4H PRN PRN PAIN Do not fill unless the Augmentin is also filled Prescribed by: BENJAMIN ANAND on 03/12/16 1803 Sulfamethoxazole/Trimethoprim 1 Each Tablet #40 2 EACH PO BID Prescribed by: ANGELIA CHAMORRO on 04/05/16 0106 Tizanidine HCl 2 Mg Capsule #0 2 MG PO TID FOR SPASMS AND MUSCLE RELAXER Prescribed by: TANNER LONG on 06/28/15 1133 Review of Systems Constitutional: see HPI chillsNo diaphoresis EENTM: No Symptoms Reported Respiratory: See HPI CoughDenies Shortness of Air, Denies Wheezing Cardiovascular: No Symptoms ReportedDenies Chest Pain Gastrointestinal: See HPI Abdominal Pain Diarrhea Nausea Poor Appetite Poor Fluid IntakeDenies Rectal Bleeding, Vomiting Genitourinary: No Symptoms Reported Musculoskeletal: see HPI Skin: no symptoms reported Psychiatric/Neurological: See HPI Pre-Existing Deficit (PERIPHERAL NEUROPATHY) Endocrine: No Symptoms ReportedDenies Increased Thrist, Denies Increased Urine Hematologic/Lymphatic: No Symptoms Reported Past Mxayzje-Itudej-Ffojjr Hx Patient Social History Alcohol Use: Past History Recreational Drug Use: Yes (THC) Drug of Choice: cannibus Smoking Status: Current Everyday Smoker Type Used: Cigarettes 2nd Hand Smoke Exposure: Yes Recent Foreign Travel: No Contact w/Someone Who Travel: No Recent Infectious Disease Expo: No Recent Hopitalizations: Yes (KIDNEY STONES AND GASTROENTERITIS) Immunizations Up To Date Tetanus Booster (TDap): More than 5yrs PED Vaccines UTD: Yes Date of Influenza Vaccine: Dec 29, 2010 Seasonal Allergies Seasonal Allergies: No Surgeries HX Surgeries: Yes ("GROWTH UNDER ABDOMEN" REMOVED-BENIGN, PER PT. URETERAL STENTS; CARDIAC CATH-STENTS X 2 ) Surgeries: Abdominal, Cardiac, Coronary Stent, Gallbladder, Renal Respiratory Hx Respiratory Disorders: No Cardiovascular Hx Cardiac Disorders: Yes (has had 2 stents in the past) Cardiac Disorders: Coronary Artery Disease, High Cholesterol, Hypertension Neurological Hx Neurological Disorders: Yes (PERIPHERAL NEUROPATHY) Neurological Disorders: Neuropathy Reproductive System Hx Reproductive Disorders: No Sexually Transmitted Disease: No HIV/AIDS: No Genitourinary Hx Genitourinary Disorders: Yes (CHRONIC RENAL FAILURE/INSUFFICIENCY--HAS NOT BEEN REFERRED TO SINGLE STROKE PREFORMER) Genitourinary Disorders: Kidney Stones, Renal Failure Gastrointestinal Hx Gastrointestinal Disorders: Yes (S/P ASHLEY) Gastrointestinal Disorders: Gastroesophageal Reflux, Gall Bladder Disease Musculoskeletal Hx Musculoskeletal Disorders: Yes (R KNEE PAIN) Musculoskeletal Disorders: Gout Endocrine Hx Endocrine Disorders: Yes Endocrine Disorders: Diabetes, Insulin dep HEENT HX ENT Disorders: No Cancer Hx Cancer: No Psychosocial Hx Psychiatric Problems: Yes Behavioral Health Disorders: Anxiety Integumentary HX Skin/Integumentary Disorder: No Blood Transfusions Hx Blood Disorders: No Adverse Reaction to a Blood Tr: No Family Medical History Family Medial History: Chest pain 03 MOTHER Family history: Arthritis 03 MOTHER Family history: Diabetes mellitus 03 MOTHER 09 BROTHER Family history: Gastrointestinal disease 03 MOTHER 09 BROTHER Family history: Thyroid disorder 03 MOTHER Headache 03 MOTHER Hypercholesterolemia 03 FATHER 03 MOTHER 09 BROTHER Myocardial infarction 03 FATHER 03 MOTHER No Family History of: Abdominal aortic aneurysm [place]ont's disease Alcoholism Aphasia Cancer Cancer of colon Cataract Congenital heart disease Congestive heart failure Cystic fibrosis Dementia Dysphagia Family history: Allergy Family history: Alzheimer's disease Family history: Asthma Family history: Breast disease Family history: Cardiovascular disease Family history: Coronary thrombosis Family history: Glaucoma Family history: Hypertension Family history: Osteoporosis Hearing loss Heart disease Hereditary disease History of - anemia History of - disorder History of - respiratory disease History of drug abuse Human immunodeficiency virus (HIV) seropositivity Kidney disease Malignant neoplasm of lung Parkinson's disease Prostate cancer Psychotic disorder Seizure disorder Stroke Tuberculosis Visual impairment Physical Exam Vital Signs VS - Last 72 Hours, by Label 04/04/16 04/05/16 22:26 01:19 Temp 99.1 99.0 Pulse 112 93 Resp 22 18 B/P 148/97 Pulse Ox 97 94 O2 Delivery Room Air Capillary Refill : Less Than 3 Seconds General Appearance: WD/WN no apparent distress (BUT KEEPS BLANKETS PULLED OVER HEAD AND DOES NOT ANSWER ANY QUESTIONS) HEENT: PERRL/EOMI Neck: normal inspection Respiratory: normal breath sounds no respiratory distress no accessory muscle use Cardiovascular: regular rate, rhythm no murmur Gastrointestinal: normal bowel sounds soft no organomegaly no pulsatile massNo distended, No guarding, No rebound, tenderness (MILD DIFFUSE TENDERNESS , MODERATE EPIGASTRIC TENDERNESS)No hernia Extremities: normal range of motion normal capillary refill other (TRACE EDEMA TO DORSUM OF RIGHT FOOT--NO WOUNDS, NO WARMTH OR ERYTHEMA OR DISCOLORATION. NO EXTERNAL EVIDENCE OF TRAUMA. MILD TENDERNESS TO ENTIRE RIGHT FOOT. ANKLE IS WNL. HAS SENSATION TO BOTH FEET, BUT STATES BOTH FEET BURN ALL THE TIME) Back: no CVA tenderness Neurologic/Psychiatric: cutter banana room II-XII nml as tested no motor/sensory deficits alert oriented x 3 Skin: normal color warm/dry Progress/Results/Core Measures Results/Orders Lab Results Laboratory Tests Test 04/04/16 00:37 04/04/16 22:40 04/04/16 22:50 Range/Units Urine Bacteria TRACE /HPF Urine Bilirubin NEGATIVE NEGATIVE Urine Casts NONE /LPF Urine Clarity VERY CLOUDY H Urine Color YELLOW Urine Crystals NONE /LPF Urine Culture Indicated YES Urine Glucose (UA) NEGATIVE NEGATIVE Urine Ketones 1+ H NEGATIVE Urine Leukocyte Esterase 2+ H NEGATIVE Urine Mucus NEGATIVE /LPF Urine Nitrite NEGATIVE NEGATIVE Urine Other FEW SPERM H /HPF Urine Protein 4+ NEGATIVE Urine RBC 0-2 /HPF Urine RBC (Auto) 3+ H NEGATIVE Urine Specific [place] 1.010 L 1.016-1.022 Urine Squamous Epithelial Cells RARE /HPF Urine Trichomonas FEW H /HPF Urine Urobilinogen NORMAL NORMAL MG/DL Urine WBC >100 H /HPF Urine pH 7 5-9 Alanine Aminotransferase (ALT/SGPT) 12 0-55 U/L Albumin 3.5 3.2-4.5 G/DL Alkaline Phosphatase 85 40-136 U/L Amylase Level 142 H 25-125 U/L Anion Gap 15 H 5-14 MMOL/L Aspartate Amino Transf (AST/SGOT) 15 5-34 U/L BUN/Creatinine Ratio 7 Band Neutrophils 17 % Basophils # (Auto) 0.1 0.0-0.1 10^3/uL Basophils % (Manual) 0 % Basophils (%) (Auto) 0 0-10 % Blood Morphology Comment NORMAL Blood Urea Nitrogen 18 7-18 MG/DL C-Reactive Protein High Sensitivity 3.15 H 0.00-0.50 MG/DL Calcium Level 9.6 8.5-10.1 MG/DL Carbon Dioxide Level 25 21-32 MMOL/L Chloride Level 100 98-107 MMOL/L Creatinine 2.71 H 0.60-1.30 MG/DL Eosinophils # (Auto) 0.2 0.0-0.3 10^3/uL Eosinophils % (Manual) 0 % Eosinophils (%) (Auto) 1 0-10 % Erythrocyte Sedimentation Rate 90 H 0-15 MM/HR Estimat Glomerular Filtration Rate 31 Glucose Level 100 70-105 MG/DL Hematocrit 38 L 40-54 % Hemoglobin 12.9 L 13.3-17.7 G/DL Lipase 15 8-78 U/L Lymphocytes # (Auto) 2.5 1.0-4.0 X 10^3 Lymphocytes % (Manual) 2 % Lymphocytes (%) (Auto) 17 12-44 % Magnesium Level 1.7 L 1.8-2.4 MG/DL Mean Corpuscular Hemoglobin 28 25-34 PG Mean Corpuscular Hemoglobin Concent 34 32-36 G/DL Mean Corpuscular Volume 82 80-99 FL Mean Platelet Volume 9.6 7.4-10.4 FL Monocytes # (Auto) 0.6 0.0-1.0 X 10^3 Monocytes % (Manual) 5 % Monocytes (%) (Auto) 5 0-12 % Neutrophils # (Auto) 11.0 H 1.8-7.8 X 10^3 Neutrophils % (Manual) 79 % Neutrophils (%) (Auto) 77 H 42-75 % Platelet Count 312 130-400 10^3/uL Potassium Level 4.0 3.6-5.0 MMOL/L Red Blood Count 4.67 4.35-5.85 10^6/uL Red Cell Distribution Width 16.5 H 10.0-14.5 % Sodium Level 140 135-145 MMOL/L Total Bilirubin 0.4 0.1-1.0 MG/DL Total Protein 7.2 6.4-8.2 G/DL Uric Acid 8.3 H 2.6-7.2 MG/DL White Blood Count 14.3 H 4.3-11.0 10^3/uL Lactic Acid Level 1.7 0.5-2.0 MMOL/L My Orders Orders-ANGELIA CHAMORRO DO Saline Lock/Iv-Start (04/04/16 22:27) Amylase (04/04/16 22:27) Cbc With Automated Diff (04/04/16 22:27) Comprehensive Metabolic Panel (04/04/16 22:27) Lactic Acid Analyzer (04/04/16 22:27) Lipase (04/04/16 22:27) Magnesium (04/04/16 22:27) Ua Culture If Indicated (04/04/16 22:27) Blood Culture (04/04/16 22:27) Uric Acid (04/04/16 22:35) Ondansetron Injection (Zofran Injectio (04/04/16 22:45) Famotidine Injection (Pepcid Injection) (04/04/16 22:35) Saline Lock/Iv-Start (04/04/16 22:35) Ns Iv 1000 Ml (Sodium Chloride 0.9%) (04/04/16 22:35) Manual Differential (04/04/16 22:40) Hs C Reactive Protein (04/04/16 23:17) Erythrocyte Sedimentation Rate (04/04/16 23:17) Promethazine Injection (Phenergan Injec (04/04/16 23:45) Saline Lock/Iv-Start (04/04/16 23:32) Ns Iv 1000 Ml (Sodium Chloride 0.9%) (04/04/16 23:32) Ct Abdomen/Pelvis Wo (04/04/16 23:33) Urine Culture (04/04/16 00:37) Medications Given in ED Current Medications Medications Dose Ordered Sig/Augusto Route Start Time Stop Time Status Last Admin Dose Admin Ondansetron HCl 8 mg 8 mg ONCE ONCE IVP 04/04/16 22:45 04/04/16 22:46 DC 04/04/16 22:46 8 MG Promethazine HCl 50 mg 50 mg ONCE ONCE IVP 04/04/16 23:45 04/04/16 23:46 DC 04/04/16 23:44 50 MG Sodium Chloride 1,000 ml @ 0 mls/hr Q0M ONCE IV 04/04/16 22:35 04/04/16 22:36 DC 04/04/16 22:46 0 MLS/HR Sodium Chloride 1,000 ml @ 0 mls/hr Q0M ONCE IV 04/04/16 23:32 04/04/16 23:33 DC 04/04/16 23:44 0 MLS/HR Vital Signs/I&O Vital Sign - Last 12Hours 04/04/16 04/05/16 22:26 01:19 Temp 99.1 99.0 Pulse 112 93 Resp 22 18 B/P 148/97 Pulse Ox 97 94 O2 Delivery Room Air Intake and Output 04/05/16 00:00 Intake Total 1000 ml Balance 1000 ml Blood Pressure Mean: 114 Progress Note : Progress Note SYMPTOMS RESOLVED WITH MEDICATIONS-PT SITTING UP, SMILING, TALKING. PT ABLE TO TOLERATE ICE CHIPS AND SIPS OF WATER PRIOR TO DISMISSAL ECG Initial ECG Impression Time: 21:19 Initial ECG Rate: 99 Initial ECG Rhythm: Normal Sinus Initial ECG Impression: Nonspecific Changes Initial ECG Comparisson: Unchanged Diagnostic Imaging Comments CT ABDOMEN/PELVIS--NO ACUTE PROCESS, ASVD, PER [facility] VIA FAX @ 0049 Reviewed: Reviewed by Me Departure Impression Impression: Primary Impression: NAUSEA/VOMITING/ DIARRHEA AND EPIGASTRIC PAIN Additional Impressions: GASTROENTRITIS VS ADVERSE REACTION TO MEDICATION--DOSE RELATED Gout POSSIBLE CELLULITIS RIGHT FOOT IDDM (insulin dependent diabetes mellitus) Trichomonas infection Urinary tract infection Chronic renal failure Disposition: 01 HOME, SELF-CARE Condition: Improved Departure-Patient Inst. Referrals: [facility] (PCP/Family) Primary Care Physician Patient Instructions: Trichomoniasis (DC), Viral Gastroenteritis, Adult (DC), Urinary Tract Infection, Adult (DC) Add. Discharge Instructions: CLEAR LIQUIDS--WATER, BROTH, JELLO, GATORADE--SIPS AT A TIME TOMORROW IF YOU ARE BETTER, ADD BRATS DIET TO CLEAR LIQUIDS--BANANAS, RICE, APPLESAUCE, TOAST, SALTINES ACIDOPHILUS 2 PILLS 4 TIMES A DAY X 2 WEEKS STOP AUGMENTIN PARTNER NEEDS CHECKED / TREATED FOR TRICHOMONAS FOLLOW UP WITH YOUR DR IN 2-3 DAYS FOR RECHECK RETURN TO ER IF WORSE All discharge instructions reviewed with patient and/or family. Voiced understanding. Scripts Ondansetron (Zofran Odt)4 Mg Tab.rapdis4 Mg PO Q4H Nausea/Vomiting #10 TAB Prov:ANGELIA CHAMORRO DO 04/05/16 Promethazine HCl (Phenergan)25 Mg Supp.rect25 Mg RC Q4H Nausea/Vomiting #10 SUPP.RECT Prov:ANGELIA CHAMORRO DO 04/05/16 Metronidazole (Flagyl)500 Mg [id number] Mg PO QID FOR INFECTION #40 TAB Prov:ANGELIA CHAMORRO DO 04/05/16 Sulfamethoxazole/Trimethoprim (Bactrim Ds Tablet)1 Each Tablet2 Each PO BID #40 TAB Prov:ANGELIA CHAMORRO DO 04/05/16 ANGELIA CHAMORRO DO Apr 05, 2016 01:06
[2016-04-05 01:19] VITALS: BP 142/99
[2016-04-05] MEDS ORDERED: PROM25SU43 RC (03:33)
[2016-04-05] MEDS ORDERED: ONDA4TAB8 PO (03:33)
--- NOTE | 2016-04-05 07:04 | Diagnostic Imaging Report ---
PROCEDURE: CT abdomen and pelvis without contrast. TECHNIQUE: Multiple contiguous axial images were obtained through the abdomen and pelvis without the use of intravenous contrast. INDICATION: History of nephrolithiasis. Study compared 01/02/2016. FINDINGS: Appendix is normal. Exophytic left renal nodule stable. There is no hydronephrosis. No opaque kidney stone. Nonaneurysmal atherosclerotic aorta unchanged. Gallbladder absent. The liver, bile ducts, spleen, adrenals and pancreas all unremarkable. There is no ascites, abscess, hematoma or other fluid collection. No pneumatosis or free air. There is no focal inflammatory process identified. IMPRESSION: No obstructive phenomenon, fluid collection, ascites or focal inflammatory process. Dictated by: Dictated on workstation # [id number]
== END 2016-04-05 01:18 | disposition home or self-care (01) ==
LOC: EDUNIT# 21:55 → ER 21:58
DX: R11.2 Nausea with vomiting, unspecified (principal); R19.7 Diarrhea, unspecified; R10.13 Epigastric pain; A59.03 Trichomonal cystitis and urethritis; I12.9 Hypertensive chronic kidney disease with stage 1 through stage 4 chronic kidney disease, or unspecified chronic kidney disease; N18.9 Chronic kidney disease, unspecified; E11.9 Type 2 diabetes mellitus without complications; M10.9 Gout, unspecified; F17.210 Nicotine dependence, cigarettes, uncomplicated; Z79.4 Long term (current) use of insulin; Z79.899 Other long term (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 therapy; Z95.5 Presence of coronary angioplasty implant and graft
CPT/HCPCS: 36415; 74176; 80053; 81000; 82150; 83605; 83690; 83735; 84550; 85007; 85027; 85652; 86141; 87040; 87088; 96361; 96374; 96375

== ENCOUNTER 2016-06-04 08:40 | Day surgery (SDC) | payer OTHER ==
[~2016-06-04] VITALS: Ht 185.4 cm; Wt 135.3 kg
[2016-06-04] VITALS (13 sets, daily range): BP systolic 114–185; BP diastolic 74–99
[~2016-06-04 08:40] MED LIST changes: +METR500T PO; +ONDA4TAB8 PO; +PROM25SU43 RC
--- NOTE | 2016-06-04 09:48 | Diagnostic Imaging Report ---
Clinical indication: Patient complains of feeling faint and weak for approximately 3 days. Exam: Portable chest x-ray upright view. Comparisons: Chest x-ray dated 06/27/2015. Findings: Lungs/pleura: Lungs are clear. There is no pneumothorax. There is no pleural effusion. Mediastinum: Unremarkable. Pulmonary vasculature: Unremarkable. Heart: Unremarkable. Bones/extrathoracic soft tissue: Unremarkable. Impression: There is no radiographic evidence of acute cardiopulmonary process. Dictated by: Dictated on workstation # [id number]
[2016-06-04 09:51] LABS: BASOPHILS % (AUTO) 0 % (0-10); EOSINOPHILS # (AUTO) 0.5 10^3/uL (0.0-0.3); EOSINOPHILS % (AUTO) 4 % (0-10); LYMPHOCYTES % (AUTO) 16 % (12-44); MEAN CORPUSCULAR HEMOGLOBIN 28 PG (25-34); MEAN CORPUSCULAR HGB CONC 33 G/DL (32-36); MEAN CORPUSCULAR VOLUME 85 FL (80-99); MEAN PLATELET VOLUME 10.1 FL (7.4-10.4); MONOCYTES # (AUTO) 0.7 X 10^3 (0.0-1.0); MONOCYTES % (AUTO) 5 % (0-12); NEUTROPHILS # (AUTO) 9.5 X 10^3 (1.8-7.8); NEUTROPHILS % (AUTO) 75 % (42-75); PLATELET COUNT 253 10^3/uL (130-400); RED BLOOD COUNT 4.31 10^6/uL (4.35-5.85); RED CELL DISTRIBUTION WIDTH 16.1 % (10.0-14.5); WHITE BLOOD COUNT 12.7 10^3/uL (4.3-11.0)
[2016-06-04 10:37] LABS: ALANINE AMINOTRANSFERASE 15 U/L (0-55); ALBUMIN 3.2 G/DL (3.2-4.5); ANION GAP 11 MMOL/L (5-14); ASPARTATE AMINO TRANSFERASE 17 U/L (5-34); BILIRUBIN,TOTAL 0.3 MG/DL (0.1-1.0); BLOOD UREA NITROGEN 21 MG/DL (7-18); BUN/CREATININE RATIO 9; CARBON DIOXIDE 25 MMOL/L (21-32); CHLORIDE 102 MMOL/L (98-107); CREATININE SERUM 2.34 MG/DL (0.60-1.30); GFR ESTIMATED 36; GLUCOSE 305 MG/DL (70-105); POTASSIUM 4.6 MMOL/L (3.6-5.0); SODIUM 138 MMOL/L (135-145); TOTAL PROTEIN 6.6 G/DL (6.4-8.2)
[2016-06-04 10:43] LABS: TROPONIN I < 0.30 NG/ML (<0.30)
[2016-06-04] MEDS ORDERED: NS IV 1000 ML 1,000 ML ONE (11:32)
[2016-06-04] MEDS ORDERED: LIDOCAINE 1% INJ 20 ML (XYLOCAINE) VIAL ONE (11:32)
[2016-06-04] MEDS ORDERED: HEParin (CATH LAB) 2,000 ML IV ONE (11:32)
--- NOTE | 2016-06-04 11:37 | ED Chest Pain ---
General Chief Complaint: Chest Pain Stated Complaint: CHEST PAIN Nursing Triage Note: c/o chest pain x 2 days with mild SOA. Denies cough/N-V/fever/chills. Hx of CAD with stent. Nursing Sepsis Screen: No Definite Risk Source: patient Exam Limitations: no limitations History of Present Illness Time seen by provider: 11:32 Initial Comments The patient is a 50-year-old black male who presents today with a chief complaint of left chest pain. He reports that this is been coming at intervals for the last 2-3 days. It lasts 3-4 minutes and then abates. It is not related to eating or exercise. He has multiple risk factors which include male sex, hypertension, poorly controlled diabetes over many years, and smoking at one half to one pack of cigarettes per day. He denied radiation or diaphoresis. Timing/Duration: 2-3 days Severity/Quality: moderate, sharp Location: substernal Radiation: no radiation Activities at Onset: none Prior CP/Workup: no prior chest pain Associated Symptoms: denies symptoms Allergies and Home Medications Allergies Coded Allergies: No Known Drug Allergies (Unverified , 09/15/08) Home Medications Allopurinol 300 Mg Tablet, 300 MG PO HS, (Reported) Amitriptyline HCl 50 Mg Tablet, 100 MG PO HS, #AD TO TAKE 2 TABS (TOTAL OF 100MG) @ HS AND MAY TAKE 3 TABS IF NEEDED Prescribed by: TANNER LONG on 06/28/15 1131 Amoxicillin/Potassium Clav 1 Each Tablet, 1 EACH PO BID, #20 Prescribed by: BENJAMIN ANAND on 03/12/16 1803 Diclofenac Potassium 50 Mg Tablet, 50 MG PO Q6H PRN for ankle pain/swelling, # 30 Ref 0 Prescribed by: JOS QUIORZ on 01/09/16 1646 Dulaglutide 0.75 Mg/0.5 Ml Pen.injctr, 0.75 MG SQ WEEK, (Reported) Hydrocodone/Acetaminophen 1 Each Tablet, 1 EACH PO Q6H, #8 Prescribed by: ROSALIE BURDICK on 01/02/16 1843 Insulin Aspart 100 Unit/1 Ml Susp, 30 UNIT SQ AC, (Reported) Insulin Detemir 100 Unit/1 Ml Vial, 100 UNIT SQ BID, (Reported) Metoprolol Succinate 50 Mg Tab, 50 MG PO HS, (Reported) Metronidazole 500 Mg Tablet, 500 MG PO QID, #40 Prescribed by: ANGELIA CHAMORRO on 04/05/16 0106 Naproxen 500 Mg Tablet, 500 MG PO Q12H, #40 Ref 0 Prescribed by: MIKHAIL ARCHIBALD on 03/18/16 1737 Omeprazole 40 Mg Capsule.dr, 40 MG PO DAILY, #30 Ref 0 Prescribed by: KAYA BLOOD on 06/28/15 1142 Ondansetron 4 Mg Tab.rapdis, 4 MG PO Q4H, #10 Prescribed by: ANGELIA CHAMORRO on 04/05/16 0333 Oxycodone HCl/Acetaminophen 1 Each Tablet, 1 EACH PO Q4H PRN for PAIN, #10 Do not fill unless the Augmentin is also filled Prescribed by: BENJAMIN ANAND on 03/12/16 1803 Promethazine HCl 25 Mg Supp.rect, 25 MG RC Q4H, #10 Prescribed by: ANGELIA CHAMORRO on 04/05/16 0333 Sulfamethoxazole/Trimethoprim 1 Each Tablet, 2 EACH PO BID, #40 Prescribed by: ANGELIA CHAMORRO on 04/05/16 0106 Tizanidine HCl 2 Mg Capsule, 2 MG PO TID, #0 FOR SPASMS AND MUSCLE RELAXER Prescribed by: TANNER LONG on 06/28/15 1133 Review of Systems Constitutional: see HPI EENTM: No Symptoms Reported Respiratory: No Symptoms Reported Cardiovascular: See HPI Gastrointestinal: No Symptoms Reported Genitourinary: No Symptoms Reported Musculoskeletal: no symptoms reported Skin: no symptoms reported Psychiatric/Neurological: No Symptoms Reported Endocrine: No Symptoms Reported Past Lqcnxvu-Bdfowk-Hbspwl Hx Patient Social History Alcohol Use: Denies Use Recreational Drug Use: No Drug of Choice: cannibus Type Used: Cigarettes 2nd Hand Smoke Exposure: Yes Recent Foreign Travel: No Contact w/Someone Who Travel: No Recent Infectious Disease Expo: No Recent Hopitalizations: Yes (KIDNEY STONES AND GASTROENTERITIS) Immunizations Up To Date Tetanus Booster (TDap): More than 5yrs PED Vaccines UTD: Yes Date of Influenza Vaccine: Dec 29, 2010 Seasonal Allergies Seasonal Allergies: No Surgeries HX Surgeries: Yes Surgeries: Abdominal, Cardiac, Coronary Stent, Gallbladder, Renal Respiratory Hx Respiratory Disorders: No Cardiovascular Hx Cardiac Disorders: Yes (has had 2 stents in the past) Cardiac Disorders: Coronary Artery Disease, High Cholesterol, Hypertension Neurological Hx Neurological Disorders: Yes (PERIPHERAL NEUROPATHY) Neurological Disorders: Neuropathy Reproductive System Hx Reproductive Disorders: No Sexually Transmitted Disease: No HIV/AIDS: No Genitourinary Hx Genitourinary Disorders: Yes (CHRONIC RENAL FAILURE/INSUFFICIENCY--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) Genitourinary Disorders: Kidney Stones, Renal Failure Gastrointestinal Hx Gastrointestinal Disorders: Yes (S/P ASHLEY) Gastrointestinal Disorders: Gastroesophageal Reflux, Gall Bladder Disease Musculoskeletal Hx Musculoskeletal Disorders: Yes (R KNEE PAIN) Musculoskeletal Disorders: Gout Endocrine Hx Endocrine Disorders: Yes Endocrine Disorders: Diabetes, Insulin dep HEENT HX ENT Disorders: No Cancer Hx Cancer: No Psychosocial Hx Psychiatric Problems: Yes Behavioral Health Disorders: Anxiety Integumentary HX Skin/Integumentary Disorder: No Blood Transfusions Hx Blood Disorders: No Adverse Reaction to a Blood Tr: No Family Medical History Family Medial History: Chest pain 03 MOTHER Family history: Arthritis 03 MOTHER Family history: Diabetes mellitus 03 MOTHER 09 BROTHER Family history: Gastrointestinal disease 03 MOTHER 09 BROTHER Family history: Thyroid disorder 03 MOTHER Headache 03 MOTHER Hypercholesterolemia 03 FATHER 03 MOTHER 09 BROTHER Myocardial infarction 03 FATHER 03 MOTHER No Family History of: Abdominal aortic aneurysm Juniata's disease Alcoholism Aphasia Cancer Cancer of colon Cataract Congenital heart disease Congestive heart failure Cystic fibrosis Dementia Dysphagia Family history: Allergy Family history: Alzheimer's disease Family history: Asthma Family history: Breast disease Family history: Cardiovascular disease Family history: Coronary thrombosis Family history: Glaucoma Family history: Hypertension Family history: Osteoporosis Hearing loss Heart disease Hereditary disease History of - anemia History of - disorder History of - respiratory disease History of drug abuse Human immunodeficiency virus (HIV) seropositivity Kidney disease Malignant neoplasm of lung Parkinson's disease Prostate cancer Psychotic disorder Seizure disorder Stroke Tuberculosis Visual impairment Physical Exam Vital Signs Vital Sign - Last 12Hours 06/04/16 08:40 Temp 97.5 Pulse 70 Resp 16 B/P (MAP) 144/92 Pulse Ox 98 O2 Delivery Room Air Capillary Refill : Less Than 3 Seconds General Appearance: No Apparent Distress, WD/WN HEENT: Normal ENT Inspection Respiratory: Chest Non Tender, Lungs Clear, Normal Breath Sounds, No Accessory Muscle Use, No Respiratory Distress Cardiovascular: Regular Rate, Rhythm, No Edema, No Gallop, No JVD, No Murmur, Normal Peripheral Pulses Gastrointestinal: Normal Bowel Sounds, No Organomegaly, No Pulsatile Mass, Non Tender Extremity: Normal Capillary Refill, Normal Inspection, Normal Range of Motion, Non Tender, No Calf Tenderness, No Pedal Edema Neurologic/Psychiatric: Alert Skin: Normal Color, Warm/Dry Progress/Results/Core Measures Results/Orders Lab Results Laboratory Tests Test 06/04/16 09:38 06/04/16 10:09 Range/Units White Blood Count 12.7 H 4.3-11.0 10^3/uL Red Blood Count 4.31 L 4.35-5.85 10^6/uL Hemoglobin 12.1 L 13.3-17.7 G/DL Hematocrit 37 L 40-54 % Mean Corpuscular Volume 85 80-99 FL Mean Corpuscular Hemoglobin 28 25-34 PG Mean Corpuscular Hemoglobin Concent 33 32-36 G/DL Red Cell Distribution Width 16.1 H 10.0-14.5 % Platelet Count 253 130-400 10^3/uL Mean Platelet Volume 10.1 7.4-10.4 FL Neutrophils (%) (Auto) 75 42-75 % Lymphocytes (%) (Auto) 16 12-44 % Monocytes (%) (Auto) 5 0-12 % Eosinophils (%) (Auto) 4 0-10 % Basophils (%) (Auto) 0 0-10 % Neutrophils # (Auto) 9.5 H 1.8-7.8 X 10^3 Lymphocytes # (Auto) 2.0 1.0-4.0 X 10^3 Monocytes # (Auto) 0.7 0.0-1.0 X 10^3 Eosinophils # (Auto) 0.5 H 0.0-0.3 10^3/uL Basophils # (Auto) 0.0 0.0-0.1 10^3/uL Sodium Level 138 135-145 MMOL/L Potassium Level 4.6 3.6-5.0 MMOL/L Chloride Level 102 98-107 MMOL/L Carbon Dioxide Level 25 21-32 MMOL/L Anion Gap 11 5-14 MMOL/L Blood Urea Nitrogen 21 H 7-18 MG/DL Creatinine 2.34 H 0.60-1.30 MG/DL Estimat Glomerular Filtration Rate 36 BUN/Creatinine Ratio 9 Glucose Level 305 H 70-105 MG/DL Calcium Level 9.0 8.5-10.1 MG/DL Total Bilirubin 0.3 0.1-1.0 MG/DL Aspartate Amino Transf (AST/SGOT) 17 5-34 U/L Alanine Aminotransferase (ALT/SGPT) 15 0-55 U/L Alkaline Phosphatase 81 40-136 U/L Troponin I < 0.30 <0.30 NG/ML Total Protein 6.6 6.4-8.2 G/DL Albumin 3.2 3.2-4.5 G/DL My Orders Orders - CONSTANZA LANGFORD MD Cbc With Automated Diff (06/04/16 08:56) Comprehensive Metabolic Panel (06/04/16 08:56) Troponin I (06/04/16 08:56) Chest 1 View, Ap/Pa Only (06/04/16 08:56) Ekg Tracing (06/04/16 08:56) Vital Signs/I&O Vital Sign - Last 12Hours 06/04/16 08:40 Temp 97.5 Pulse 70 Resp 16 B/P (MAP) 144/92 Pulse Ox 98 O2 Delivery Room Air Blood Pressure Mean: 109 Departure Communication Progress Notes The patient workup was negative. He is considered at high risk because of his multiple risk factors. Dr. Valadez was contacted and was in the ER at 1125. He plans acute cardiac angiography today to clear up these issues Impression Impression: Primary Impression: chest pain/angina pectoris Disposition: ADMITTED INPATIENT Condition: Stable/Unchanged Decision to Admit Reason: Admit from ER (General) Decision to Admit/Date: Jun 04, 2016 Time/Decision to Admit Time: 11:38 Departure-Patient Inst. Referrals: [facility] (PCP/Family) Primary Care Physician CONSTANZA LANGFORD MD Jun 04, 2016 11:37
[2016-06-04] MEDS ORDERED: inSUlin ASPART (NovoLOG) 1 UNIT/0.01 ML (CHARGE PER UNIT) SC ONE (12:00)
[2016-06-04] MEDS ORDERED: NS IV 1000 ML 1,000 ML IV SCH ×2 (12:30→13:45)
[2016-06-04 12:32] LABS: INR 1.1 (0.8-1.4); PROTHROMBIN TIME PATIENT 13.6 SEC (12.2-14.7)
[2016-06-04] MEDS ORDERED: NITROGLYCERIN SUBLINGUAL 0.4 MG TAB (NITROSTAT) SL PRN (13:45)
[2016-06-04] MEDS ORDERED: CATHETER FLUSH 10 ML SYR IV PRN (13:45)
--- NOTE | 2016-06-04 14:08 | Cardiac Procedure Note-CS/ASA ---
Pre-Procedure Note Pre-Op Procedure Note H&P Reviewed The H&P was reviewed, patient examined and no changes noted. Date H&P Reviewed: Jun 04, 2016 Time H&P Reviewed: 14:08 Conscious Sedation Pre-Proced Time Reviewed: 14:08 ASA Class: 3 Airway Mallampati Classification: ([place] appropriate class) I. II. III, IV Lungs Heart ASA score ASA 1: a normal healthy patient ASA 2: a patient with a mild systemic disease (mid diabetes, controlled hypertension, obesity x ASA 3: a patient with a severe systemic disease that limits activity (angina , COPD, prior Myocardial infarction) ASA 4: a patient with an incapacitating disease that is a constant threat to life (CHF, renal failure) ASA 5: a moribund patient not expected to survive 24 hrs. (ruptured aneurysm) ASA 6: a declared brain patient whose organs are being harvested. For emergent operations, add the letter E after the classification Grade 3 Sedation Plan: Analgesia, Amnesia, Plan communicated to team members, Discussed options with patient/fam, Discussed risks with patient/fam Note The patient is an appropriate candidate to undergo the planned procedure, sedation, and anesthesia. The patient immediately re-assessed prior to indication. ERICA BOWMAN MD Jun 04, 2016 14:08
--- NOTE | 2016-06-04 14:08 | Cardiology History & Physical ---
HPI-Cardiology Cardiology Consultation Date of Consultation 06/04/16 Date of Admission Indication: chest pain HPI 50 years old gentleman with history of hypertension, hyperlipidemia, diabetes mellitus, obesity, tobaccoism and family history of heart disease started having recurrent chest pain for the last 3 days became worse today. Associated with shortness of breath and diaphoresis, generalized fatigue and loss of energy. Came into the emergency room for evaluation. Pain responded to nitroglycerin, started having some pain again while in the emergency room, reporting the pain ranging between 2-6/10. PMH-Cardiology Immunizations Up To Date Tetanus Booster (DTap): More than 5yrs Date of Influenza Vaccine: Dec 29, 2010 Seasonal Allergies Seasonal Allergies: No Surgeries HX Surgeries: Yes Surgeries: Gall Bladder, Cardiac, Coronary Stent Respiratory Hx Respiratory Disorders: No Cardiovascular Hx Cardiovascular Disorders: Yes (has had 2 stents in the past) Cardiac Disorders: Hypertension Neurological Hx Neurological Disorders: Yes (PERIPHERAL NEUROPATHY) Neurological Disorders: Neuropathy Reproductive System Hx Reproductive Disorders: No Sexually Transmitted Disease: No HIV/AIDS: No Genitourinary Hx Genitourinary Disorders: Yes (CHRONIC RENAL FAILURE/INSUFFICIENCY--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) Genitourinary Disorders: Kidney Stones, Renal Failure Gastrointestinal Hx Gastrointestinal Disorders: Yes (S/P ASHLEY) Gastrointestinal Disorders: Gastroesophageal Reflux, Gall Bladder Disease Musculoskeletal Hx Musculoskeletal Disorders: Yes (R KNEE PAIN) Musculoskeletal Disorders: Gout Endocrine Hx Endocrine Disorders: Yes Endocrine Disorders: Diabetes, Insulin dep HEENT HX ENT Disorders: No Cancer Hx Cancer: No Psychosocial Hx Psychiatric Problems: Yes Behavioral Health Disorders: Anxiety Integumentary HX Skin/Integumentary Disorder: No Blood Transfusions Hx Blood Disorders: No Adverse Reaction to a Blood Tr: No Other PMHx Other PMHx: past medical history as discussed below Social History Patient Social History Alcohol Use: Occasionally Uses Recreational Drug Use: Yes Smoking: Current some day smoker Dip or chew tobacco?: No Recent Foreign Travel: No Contact w/other who traveled: No Recent Infectious Disease Expo: No Family Hx Family History: 03 FATHER Hypercholesterolemia Myocardial infarction 03 MOTHER Chest pain Family history: Arthritis Family history: Diabetes mellitus Family history: Gastrointestinal disease Family history: Thyroid disorder Headache Hypercholesterolemia Myocardial infarction 09 BROTHER Family history: Diabetes mellitus Family history: Gastrointestinal disease Hypercholesterolemia ROS-Cardiology Review of Systems General: No Chills, No Night Sweats, Fatigue, Malaise, No Appetite HEENT: No Head Aches, No Visual Changes, No Eye Pain, No Ear Pain, No Dysphasia , No Sinus Congestion, No Post Nasal Drip, No Sore Throat Pulmonary: Dyspnea, No Cough, No Pleuritic Chest Pain Cardiovascular: Chest Pain, No: Edema, Lt Headedness, Orthopnea, Palpitations, Paroxysmal Noc. Dyspnea Gastrointestinal: No: Abdominal Pain, Constipation, Diarrhea, Hematochezia, Melena, Nausea, Vomiting Genitourinary: No Dysuria, No Frequency, No Incontinence, No Hematuria, No Retention Musculoskeletal: No: arm pain, back pain, foot pain, hand pain, leg pain, neck pain, shoulder pain Neurological: No: Change in speech, Confusion, Incoordination, Numbness, Seizures, Weakness Home Medications & Allergies Allergies: Coded Allergies: No Known Drug Allergies (Unverified , 09/15/08) Home Medication List Reviewed: Yes Exam-Cardiology Vital Signs Vital Signs Date Time Temp Pulse Resp B/P (MAP) Pulse Ox O2 Delivery O2 Flow Rate FiO2 06/04/16 13:28 80 06/04/16 13:20 98.6 25 153/94 95 Room Air Exam General Appearance: Alert, Oriented X3, Cooperative, No Acute Distress HEENT: Atraumatic, PERRLA Respiratory: Clear to Auscultation, Normal Air Movement Cardiovascular: Regular Rate, Normal S1, Normal S2, No Murmurs Abdominal: Normal Bowel Sounds, Soft, No Tenderness, No Hepatosplenomegaly, No Masses Extremities: No Clubbing, No Cyanosis, No Edema, Normal Pulses, No Tenderness/ Swelling Skin: No Rashes, No Breakdown, No Significant Lesion Neuro: Normal Gait, Normal Speech, Strength at 5/5 X4 Ext, Normal Tone, Sensation Intact Psych/Mental Status: Mental Status NL, Mood NL Results Labs Labs Laboratory Tests 06/04/16 09:38: White Blood Count 12.7H, Red Blood Count 4.31L, Hemoglobin 12.1L, Hematocrit 37L , Mean Corpuscular Volume 85, Mean Corpuscular Hemoglobin 28, Mean Corpuscular Hemoglobin Concent 33, Red Cell Distribution Width 16.1H, Platelet Count 253, Mean Platelet Volume 10.1, Neutrophils (%) (Auto) 75, Lymphocytes (%) (Auto) 16 , Monocytes (%) (Auto) 5, Eosinophils (%) (Auto) 4, Basophils (%) (Auto) 0, Neutrophils # (Auto) 9.5H, Lymphocytes # (Auto) 2.0, Monocytes # (Auto) 0.7, Eosinophils # (Auto) 0.5H, Basophils # (Auto) 0.0 06/04/16 10:09: Sodium Level 138, Potassium Level 4.6, Chloride Level 102, Carbon Dioxide Level 25, Anion Gap 11, Blood Urea Nitrogen 21H, Creatinine 2.34H, Estimat Glomerular Filtration Rate 36, BUN/Creatinine Ratio 9, Glucose Level 305H, Calcium Level 9.0, Total Bilirubin 0.3, Aspartate Amino Transf (AST/SGOT) 17, Alanine Aminotransferase (ALT/SGPT) 15, Alkaline Phosphatase 81, Troponin I < 0.30, Total Protein 6.6, Albumin 3.2 06/04/16 12:15: Prothrombin Time 13.6, INR Comment 1.1, Activated Partial Thromboplast Time 32 A/P-Cardiology Admission Diagnosis Chest pain nonspecific etiology Hypertension Hyperlipidemia Diabetes mellitus Assessment/Plan Chest pain resembling angina, multiple risk factors, we discussed the management plan, recommended cardiac catheterization possible PTCA. Procedure was explained in length to the patient all pros and cons were explained all questions were answered. Coronary artery disease, history of Promus stent 3.0x[address] Moreland, cardiac cath showed severe in stent restenosis, deployment of 3.0x28 Xience stent overlapping proximally, Severe proximal RCA for staged intervention Hypertension, I will restart home medication monitor blood pressure Hyperlipidemia, restart home medication and evaluate lipids Diabetes mellitus, has been on metformin, it will be held for 48 hours, monitor renal function closely. Tobaccoism, educated on smoking cessation Obesity, BMI 38, we discussed weight loss Family history of heart disease. Clinical Quality Measures AMI/AHF: ASA po Prior to arrival: No DVT/VTE Risk/Contraindication: Risk Factor Score Per Nursin RFS Level Per Nursing on Admit: 3=High ERICA BOWMAN MD Jun 04, 2016 14:08
[2016-06-04] MEDS ORDERED: fentaNYL INJECTION 100 MCG/2 ML AMP ONE (14:12)
[2016-06-04] MEDS ORDERED: MIDAZOLAM 5 MG/5 ML (VERSED) VIAL ONE (14:12)
[2016-06-04] MEDS ORDERED: NITROGLYCERIN DRIP 25 MG/D5W 250 ML IV ONE (14:30)
[2016-06-04] MEDS ORDERED: HEParin 1000 UNIT/ML (10ML VIAL) FOR BOLUS ONE (14:30)
[2016-06-04] MEDS ORDERED: EPTIFIBATIDE BOLUS 20 ML IV ONE (14:31)
[2016-06-04] MEDS ORDERED: TICAGRELOR 90 MG TABLET (BRILINTA) PO ONE (14:58)
[2016-06-04] MEDS ORDERED: ASPIRIN 81 MG CHEW (CHILDREN'S ASA) ONE (14:59)
[2016-06-04] MEDS ORDERED: PATIENT MAY USE OWN MEDS, ALL PO SCH (15:15)
[2016-06-04] MEDS ORDERED: OMEP40CA36 PO (15:21)
[2016-06-04] MEDS ORDERED: QUET50TA55 PO (15:21)
[2016-06-04] MEDS ORDERED: ATOR10TA PO (15:39)
[2016-06-04] MEDS: NS IV 1000 ML 1,000 ML IV SCH (16:22)
[2016-06-04] MEDS: inSUlin ASPART (NovoLOG) 1 UNIT/0.01 ML (CHARGE PER UNIT) SQ SCH (18:40)
[2016-06-04] MEDS ORDERED: QUEtiapine 100 MG (SEROquel) TAB IMMEDIATE RELEASE PO SCH (20:24)
[2016-06-04] MEDS ORDERED: ATORVASTATIN 10 MG (LIPITOR) TABLET PO SCH (21:00)
[2016-06-04] MEDS ORDERED: meTOproloL SUCCINATE 50 MG (TOPROL XL) TAB PO SCH (21:00)
[2016-06-04 21:05] LABS: CALCIUM 8.8 MG/DL (8.5-10.1); CREATININE SERUM 2.27 MG/DL (0.60-1.30); MAGNESIUM 1.5 MG/DL (1.8-2.4); POTASSIUM 3.7 MMOL/L (3.6-5.0)
[2016-06-04] MEDS ORDERED: MAGNESIUM 1 GM/100 ML IVPB 200 ML IV ONE (21:28)
[2016-06-04] MEDS ORDERED: PANTOPRAZOLE 40 MG (PROTONIX) TAB PO ONE (21:28)
[2016-06-04] MEDS: TICAGRELOR 90 MG TABLET (BRILINTA) PO SCH (21:37)
[2016-06-04] MEDS: inSUlin DETERMIR 1 UNIT/0.01 ML (LEVEMIR) CHARGE PER UNIT SQ SCH (21:40)
[2016-06-04] MEDS: MAGNESIUM 1 GM/100 ML IVPB 100 ML IV SCH ×2 (21:44→23:50)
[2016-06-05] VITALS (8 sets, daily range): BP systolic 125–193; BP diastolic 51–95
[2016-06-05] MEDS: NS IV 1000 ML 1,000 ML IV SCH (01:34)
[2016-06-05 03:46] LABS: MEAN PLATELET VOLUME 9.5 FL (7.4-10.4); RED BLOOD COUNT 3.97 10^6/uL (4.35-5.85); RED CELL DISTRIBUTION WIDTH 15.9 % (10.0-14.5); WHITE BLOOD COUNT 14.4 10^3/uL (4.3-11.0)
[2016-06-05 04:17] LABS: ANION GAP 12 MMOL/L (5-14); BLOOD UREA NITROGEN 20 MG/DL (7-18); BUN/CREATININE RATIO 9; CALCIUM 8.5 MG/DL (8.5-10.1); CARBON DIOXIDE 22 MMOL/L (21-32); CHLORIDE 107 MMOL/L (98-107); CHOLESTEROL 155 MG/DL (< 200); CREATININE SERUM 2.21 MG/DL (0.60-1.30); DIRECT LDL 54 MG/DL (1-129); GFR ESTIMATED 39; GLUCOSE 126 MG/DL (70-105); POTASSIUM 3.7 MMOL/L (3.6-5.0); SODIUM 141 MMOL/L (135-145); TRIGLYCERIDES 382 MG/DL (<150); VLDL CHOLESTEROL 76 MG/DL (5-40)
[2016-06-05 04:25] LABS: TROPONIN I < 0.30 NG/ML (<0.30)
[2016-06-05] MEDS ORDERED: PANTOPRAZOLE 40 MG (PROTONIX) TAB PO SCH (07:00)
--- NOTE | 2016-06-05 08:51 | Cardiology Discharge Summary ---
Diagnosis/Chief Complaint Date of Admission Jun 04, 2016 at 11:50 Date of Discharge Admission Diagnosis Chest pain nonspecific etiology Hypertension Hyperlipidemia Diabetes mellitus Discharge Diagnosis unstable angina Coronary artery disease Hypertension Hyperlipidemia Chief Complaint/HPI Chief Complaint/HPI 50 years old gentleman with history of coronary artery disease, stent to the LAD , admitted with unstable angina, chronic catheterization was carried out under emergency condition which showed severe disease in stent in the proximal to mid LAD, underwent balloon angioplasty and stent deployment with excellent results, still having a lesion in the proximal right coronary artery which will be operated on at the later point. He is feeling well, recovering well. We discussed the management plan, wishes to go home, I will discharge him and arrange for follow-up as an outpatient for a staged intervention to his right coronary artery Discharge Summary Hospital Course Hospital Course unstable angina, status post emergency cardiac catheterization showing severe stenosis in the LAD stent, underwent balloon angioplasty then appointment of 3.0 28 Xcience Alpine stentin the proximal LAD with excellent results. Still have severe stenosis in the proximal to midright coronary artery which will be staged for an intervention at a later point due to the underlying renal function. Coronary artery disease, history of Promus stent 3.0x[address] Moreland, cardiac cath showed severe in stent restenosis, deployment of 3.0x28 Xience stent overlapping proximally, Severe proximal RCA for staged intervention, I will see him as an outpatient, educated on the importance of compliance with medication. Hypertension, continue to monitor blood pressure Hyperlipidemia, continue to monitor lipids Diabetes mellitus, has been on metformin, it will be held for 48 hours, monitor renal function closely. Tobaccoism, educated on smoking cessation Obesity, BMI 38, we discussed weight loss Family history of heart disease. Labs Laboratory Tests 06/04/16 09:38: White Blood Count 12.7H, Red Blood Count 4.31L, Hemoglobin 12.1L, Hematocrit 37L , Red Cell Distribution Width 16.1H, Neutrophils # (Auto) 9.5H, Eosinophils # ( Auto) 0.5H 06/04/16 10:09: Blood Urea Nitrogen 21H, Creatinine 2.34H, Glucose Level 305H 06/04/16 12:15: 06/04/16 15:45: 06/04/16 17:53: Glucometer 144H 06/04/16 20:40: Blood Urea Nitrogen 20H, Creatinine 2.27H, Glucose Level 135H, Magnesium Level 1.5L 06/05/16 03:30: Blood Urea Nitrogen 20H, Creatinine 2.21H, Glucose Level 126H, White Blood Count 14.4H, Red Blood Count 3.97L, Hemoglobin 10.9L, Hematocrit 33L, Red Cell Distribution Width 15.9H, Triglycerides Level 382H, VLDL Cholesterol 76H, HDL Cholesterol 23L Procedures None. Discharge Physical Examination Allergies: Coded Allergies: No Known Drug Allergies (Unverified , 09/15/08) Vitals & I&Os Vital Signs Date Time Temp Pulse Resp B/P (MAP) Pulse Ox O2 Delivery O2 Flow Rate FiO2 06/05/16 07:00 67 06/05/16 07:00 98.6 06/05/16 06:00 16 130/70 95 Room Air General Appearance: Alert, Oriented X3, Cooperative, No Acute Distress HEENT: Atraumatic, PERRLA Respiratory: Clear to Auscultation, Normal Air Movement Cardiovascular: Regular Rate, Normal S1, Normal S2, No Murmurs Abdominal: Normal Bowel Sounds, Soft, No Tenderness, No Hepatosplenomegaly, No Masses Extremities: No Clubbing, No Cyanosis, No Edema, Normal Pulses, No Tenderness/ Swelling Skin: No Rashes, No Breakdown, No Significant Lesion Neuro: Normal Gait, Normal Speech, Strength at 5/5 X4 Ext, Normal Tone, Sensation Intact, Cranial Nerves 3-12 NL, Reflexes 2+ Psych/Mental Status: Mental Status NL, Mood NL Discharge Home Medications Reviewed and agree with Discharge Medication list on patient's Discharge Instruction sheet Instructions to Patient/Family Please see electonic discharge instructions given to patient. Clinical Quality Measures AMI/AHF: ASA po Prior to arrival: No DVT/VTE Risk/Contraindication: Risk Factor Score Per Nursin RFS Level Per Nursing on Admit: 3=High ERICA BOWMAN MD Jun 05, 2016 08:51
[2016-06-05] MEDS ORDERED: TICA90TA PO (08:58)
[2016-06-05] MEDS ORDERED: LISI-556 PO (08:58)
[2016-06-05] MEDS ORDERED: ASPI-983 PO (08:58)
[2016-06-05] MEDS: TICAGRELOR 90 MG TABLET (BRILINTA) PO SCH (08:59)
--- NOTE | 2016-06-05 08:59 | Discharge Inst-Post CATH ---
Discharge Inst-CATH Post Cardiac Cath D/C Inst Follow Up/Plan Appointment with Dr. Valadez's office on Tuesday, June 07, 2016 at 1 p.m. Hold metformin for 48 hours CARDIAC CATH DISCHARGE INSTRUCTIONS *Hold Metformin for 48 hours post heart cath. ACTIVITY * Go Home directly and rest. * Limit activity of the leg (or wrist if it was used) for 7 days including aerobics, swimming, jogging, bicycling, etc. * Restrict stair-climbing for 7 days if possible, if not, climb up with your non -cath leg, then bring together on the same step. * Avoid lifting, pushing, pulling or excessive movement of the affected extremity for 7 days. * Customary sexual activity may be resumed after 2 days-use caution not to use a position that strains or causes pain to the affected extremity. * No driving for 24 hours. * NO SMOKING. * Avoid straining for bowel movements for 7 days. * Gentle walking on level ground is allowed. * Returning to work will depend on the type of procedure and the results. Your doctor will discuss this with you. CALL YOUR DOCTOR FOR ANY OF THE FOLLOWING: *If bleeding from the puncture site occurs- Apply gentle pressure to site with clean cloth and call your doctor or EMS. * If a knot or lump forms under the skin, increases in size, or causes pain. * If bruising appears to be worsening or moving further down your leg instead of disappearing. * Temperature above 101 F. CARE OF YOUR GROIN INCISION; * Bruising or purple discoloration of the skin near the puncture site is common. * You may shower only, no bathtub bathing for 5 days. Be careful to avoid slipping as your leg may feel stiff. * If a closure device was used on your femoral artery, please see the attached guide regarding care of the device and your leg. * REMOVE the dressing from your groin the next day after your procedure in the shower. CARE OF YOUR WRIST INCISION; * Bruising or purple discoloration of the skin near the puncture site is common. * You may shower. * DO NOT submerge wrist. * Remove dressing in 24 hours. ERICA VALADEZ MD Jun 05, 2016 08:59
[2016-06-05] MEDS ORDERED: ASPIRIN E.C. 81 MG (ECOTRIN) TAB PO SCH (09:00)
[2016-06-05] MEDS: inSUlin DETERMIR 1 UNIT/0.01 ML (LEVEMIR) CHARGE PER UNIT SQ SCH (09:02)
[2016-06-05] MEDS: inSUlin ASPART (NovoLOG) 1 UNIT/0.01 ML (CHARGE PER UNIT) SQ SCH (09:02)
--- NOTE | 2016-06-06 12:47 | CARDIAC CATHETERIZATION ---
PROCEDURE PHYSICIAN: ERICA BOWMAN DATE OF PROCEDURE: 06/04/2016 REFERRING PHYSICIAN: [facility] BRIEF HISTORY: Mr. Silverman is a 50-year-old gentleman with history of coronary artery disease, known to have Promus Premier stent to the LAD in the remote past. He was admitted with unstable angina and brought for emergency cardiac catheterization. PROCEDURE NOTE: After explaining the procedure to the patient, all pros and cons were explained. All questions were answered. The patient signed a consent and then he was placed on the cardiac catheterization laboratory. The right groin was prepped in a sterile fashion. Local anesthesia applied to the right groin. 6-[place]ux[place] sheath was placed in the right femoral artery. Combination of right and left Rocky catheter were used to access the right and left coronary system. Multiple views were obtained. Pigtail catheter advanced to the left ventricular cavity. Pressure was measured. No left ventriculogram was done. Then I decided to proceed with percutaneous intervention. The patient was given to 5,000 units of heparin, double bolus Integrilin. FL 4.5 guide was advanced to the left coronary system. A BMW wire was advanced and parked in the distal LAD. The patient had 70 to 80% stenosis in the mid LAD within the stent and proximal to the stent. I proceeded with a predilatation using 3.0 x 20 mm then proceeded with placement of 3.0 x 23 mm Xience stent overlapping with the previous stent, deployed under 16 atmosphere up to 3.25 with good results. No residual stenosis was noted. At this point, sheath was removed. Mynx device deployed. Hemostasis achieved. Total contrast used 97 mL. FINDINGS: HEMODYNAMICS: LV pressure 143/16, end-diastolic pressure of 16. Aortic pressure 144/84, mean of 108. ANATOMY: 1. Left main coronary artery is bifurcating to left anterior descending and left circumflex artery with no obstructive disease. 2. The left anterior descending artery has a stent in its midportion, noted to be Promus Premiere 3.0 x 30, has 70% stenosis in-stent restenosis in the proximal portion of the stent and proximal to the stent. Some area within the stent is up to 80%. Successful balloon angioplasty then deployment of an overlapping stent with the previous stents using Xience Alpine 3.0 x 23 mm with excellent results. No residual stenosis was noted. 3. Left circumflex artery is moderate in size with mild disease, nonobstructive disease. 4. Right coronary artery is dominant artery, tortuous artery with 70% stenosis at the midportion, which will be treated with intervention at a later point to limit the amount of contrast used due to the renal failure. 5. No left ventriculogram was done. Left ventricular end diastolic pressure is normal. CONCLUSION: 1. Severe in-stent restenosis in the mid LAD. Successful balloon angioplasty then deployment of an overlapping stent proximal to the previous stents using Xience Alpine 3.0 x 23 mm expanded to 3.25 mm with excellent results. 2. 70% stenosis in the mid right coronary artery which will be treated at a later point. 3. Normal left ventricular end-diastolic pressure. DISCUSSION AND RECOMMENDATION: The patient will be treated medically. I will continue with aggressive medical therapy due to the fact that he has underlying renal failure. I will proceed with aggressive hydration, monitoring his renal function and then intervention on the right coronary artery. If patient continues to be symptomatic I will consider, bringing in back and doing the procedure earlier. Job ID: [id number] Dictated Date: 06/04/2016 15:17:12 Hospital Personnel Director Date: 06/06/2016 12:35:16 / ashleigh
--- OUTSIDE RECORDS SUMMARY | 2016-07-08 21:09 | XMS REPORT | Continuity of Care Document ---
Author Author [facility] Address Unknown Phone Unavailable Allergies Active Description Code Type Severity Reaction Onset Reported/Identified Relationship to Patient Clinical Status Yes No Known Drug Allergies [id number] Drug Allergy Mild N/A 09/15/2008 Yes Actos Drug Allergy 06/25/2009 Yes Actos Drug Allergy N/A N/A 06/25/2009 Yes acetaminophen-codeine 300-30 mg tablet Drug Allergy N/A N /A 09/24/2013 Medications Problems Date Dx Coded Attending Type Code Diagnosis Diagnosed By 09/15/2008 Ot 250.00 09/15/2008 Ot 274.9 09/15/2008 Ot 729.5 09/15/2008 Ot V15.81 11/01/2008 250.02 DIABETES MELLITUS POORLY CONTROLLED 11/01/2008 272.4 HYPERLIPIDEMIA HYPERLIPOPROTEINEMIAS (Old Classification) 11/01/2008 GARFIELD MAURICIO CHARMAINE K 250.02 DIABETES MELLITUS POORLY CONTROLLED 11/01/2008 GARFIELD MAURICIO CHARMAINE K 272.4 HYPERLIPIDEMIA HYPERLIPOPROTEINEMIAS (Old Classification) 11/01/2008 SARI MOJICA MD 250.02 DIABETES MELLITUS POORLY CONTROLLED 11/01/2008 SARI MOJICA MD 272.4 HYPERLIPIDEMIA HYPERLIPOPROTEINEMIAS (Old Classification) 11/01/2008 MERRILL DO CHARMAINE K 250.02 DIABETES MELLITUS POORLY CONTROLLED 11/01/2008 MERRILL DO CHARMAINE K 272.4 HYPERLIPIDEMIA HYPERLIPOPROTEINEMIAS (Old Classification) 11/01/2008 MERRILL , CHARMAINE K 250.02 DIABETES MELLITUS POORLY CONTROLLED 11/01/2008 MERRILL DO CHARMAINE K 272.4 HYPERLIPIDEMIA HYPERLIPOPROTEINEMIAS (Old Classification) 11/01/2008 MERRILL DO CHARMAINE K 250.02 DIABETES MELLITUS POORLY CONTROLLED 11/01/2008 MERRILL DO CHARMAINE K 272.4 HYPERLIPIDEMIA HYPERLIPOPROTEINEMIAS (Old Classification) 11/01/2008 MERRILL DO CHARMAINE K 250.02 DIABETES MELLITUS POORLY CONTROLLED 11/01/2008 MERRILL DO CHARMAINE K 272.4 HYPERLIPIDEMIA HYPERLIPOPROTEINEMIAS (Old Classification) 11/01/2008 MERRILL DO, CHARMAINE K 250.02 DIABETES MELLITUS POORLY CONTROLLED 11/01/2008 MERRILL DO, CHARMAINE K 272.4 HYPERLIPIDEMIA HYPERLIPOPROTEINEMIAS (Old Classification) 11/01/2008 MERRILL DO, CHARMAINE K 250.02 DIABETES MELLITUS POORLY CONTROLLED 11/01/2008 MERRILL DO, CHARMAINE K 272.4 HYPERLIPIDEMIA HYPERLIPOPROTEINEMIAS (Old Classification) 11/01/2008 MERRILL DO, CHARMAINE K 250.02 DIABETES MELLITUS POORLY CONTROLLED 11/01/2008 MERRILL DO, CHARMAINE K 272.4 HYPERLIPIDEMIA HYPERLIPOPROTEINEMIAS (Old Classification) 11/01/2008 MERRILL DO, CHARMAINE K 250.02 DIABETES MELLITUS POORLY CONTROLLED 11/01/2008 MERRILL DO, CHARMAINE K 272.4 HYPERLIPIDEMIA HYPERLIPOPROTEINEMIAS (Old Classification) 11/01/2008 MERRILL DO, CHARMAINE K 250.02 DIABETES MELLITUS POORLY CONTROLLED 11/01/2008 MERRILL DO, CHARMAINE K 272.4 HYPERLIPIDEMIA HYPERLIPOPROTEINEMIAS (Old Classification) 11/01/2008 MUOGHALU DDS, SANA N 250.02 DIABETES MELLITUS POORLY CONTROLLED 11/01/2008 MUOGHALU DDS, SANA N 272.4 HYPERLIPIDEMIA HYPERLIPOPROTEINEMIAS ( Old Classification) 11/07/2008 250.40 DIABETIC NEPHROPATHY 11/07/2008 MERRILL DO, CHARMAINE K 250.40 DIABETIC NEPHROPATHY 11/07/2008 SARI MOJICA MD 250.40 DIABETIC NEPHROPATHY 11/07/2008 MERRILL DO, CHARMAINE K 250.40 DIABETIC NEPHROPATHY 11/07/2008 MERRILL DO, CHARMAINE K 250.40 DIABETIC NEPHROPATHY 11/07/2008 MERRILL DO, CHARMAINE K 250.40 DIABETIC NEPHROPATHY 11/07/2008 MERRILL DO, CHARMAINE K 250.40 DIABETIC NEPHROPATHY 11/07/2008 MERRILL DO, CHARMAINE K 250.40 DIABETIC NEPHROPATHY 11/07/2008 MERRILL DO, CHARMAINE K 250.40 DIABETIC NEPHROPATHY 11/07/2008 MERRILL DO, CHARMAINE K 250.40 DIABETIC NEPHROPATHY 11/07/2008 MERRILL DO, CHARMAINE K 250.40 DIABETIC NEPHROPATHY 11/07/2008 MERRILL DO, CHARMAINE K 250.40 DIABETIC NEPHROPATHY 11/07/2008 MUOGHALU DDS, SANA N 250.40 DIABETIC NEPHROPATHY 02/11/2009 250.00 DIABETES MELLITUS TYPE II 02/11/2009 MERRILL DO, CHARMAINE K 250.00 DIABETES MELLITUS TYPE II 02/11/2009 SARI MOJICA MD 250.00 DIABETES MELLITUS TYPE II 02/11/2009 MERRILL DO, CHARMAINE K 250.00 DIABETES MELLITUS TYPE II 02/11/2009 MERRILL DO, CHARMAINE K 250.00 DIABETES MELLITUS TYPE II 02/11/2009 MERRILL DO, CHARMAINE K 250.00 DIABETES MELLITUS TYPE II 02/11/2009 MERRILL DO, CHARMAINE K 250.00 DIABETES MELLITUS TYPE II 02/11/2009 MERRILL DO, CHARMAINE K 250.00 DIABETES MELLITUS TYPE II 02/11/2009 MERRILL DO, CHARMAINE K 250.00 DIABETES MELLITUS TYPE II 02/11/2009 MERRILL DO, CHARMAINE K 250.00 DIABETES MELLITUS TYPE II 02/11/2009 MERRILL DO, CHARMAINE K 250.00 DIABETES MELLITUS TYPE II 02/11/2009 MERRILL DO, CHARMAINE K 250.00 DIABETES MELLITUS TYPE II 02/11/2009 LUIZ MONROYS, SANA N 250.00 DIABETES MELLITUS TYPE II 02/18/2009 599.7 HEMATURIA 02/18/2009 788.1 pain during urination (dysuria) 02/18/2009 MERRILL DO, CHARMAINE K 599.7 HEMATURIA 02/18/2009 MERRILL DO, CHARMAINE K 788.1 Pain During Urination (dysuria) 02/18/2009 SARI MOJICA MD 599.7 HEMATURIA 02/18/2009 SARI MOJICA MD 788.1 Pain During Urination (dysuria) 02/18/2009 MERRILL DO, CHARMAINE K 599.7 HEMATURIA 02/18/2009 MERRILL DO, CHARMAINE K 788.1 Pain During Urination (dysuria) 02/18/2009 MERRILL DO, CHARMAINE K 599.7 HEMATURIA 02/18/2009 MERRILL DO, CHARMAINE K 788.1 Pain During Urination (dysuria) 02/18/2009 MERRILL DO, CHARMAINE K 599.7 HEMATURIA 02/18/2009 MERRILL DO, CHARMAINE K 788.1 Pain During Urination (dysuria) 02/18/2009 MERRILL DO, CHARMAINE K 599.7 HEMATURIA 02/18/2009 MERRILL DO, CHARMAINE K 788.1 Pain During Urination (dysuria) 02/18/2009 MERRILL DO, CHARMAINE K 599.7 HEMATURIA 02/18/2009 MERRILL DO, CHARMAINE K 788.1 Pain During Urination (dysuria) 02/18/2009 MERRILL DO, CHARMAINE K 599.7 HEMATURIA 02/18/2009 MERRILL DO, CHARMAINE K 788.1 Pain During Urination (dysuria) 02/18/2009 MERRILL DO, CHARMAINE K 599.7 HEMATURIA 02/18/2009 MERRILL DO, CHARMAINE K 788.1 Pain During Urination (dysuria) 02/18/2009 MERRILL DO, CHARMAINE K 599.7 HEMATURIA 02/18/2009 MERRILL DO, CHARMAINE K 788.1 Pain During Urination (dysuria) 02/18/2009 MERRILL DO, CHARMAINE K 599.7 HEMATURIA 02/18/2009 MERRILL DO, CHARMAINE K 788.1 Pain During Urination (dysuria) 02/18/2009 MUOGHALU DDS, SANA N 599.7 HEMATURIA 02/18/2009 MUOGHALU DDS, SANA N 788.1 pain during urination (dysuria) 02/19/2009 599.70 blood in urine 02/19/2009 MERRILL DO, CHARMAINE K 599.70 Blood In Urine 02/19/2009 SARI MOJICA MD 599.70 Blood In Urine 02/19/2009 MERRILL DO, CHARMAINE K 599.70 Blood In Urine 02/19/2009 MRERILL DO, CHARMAINE K 599.70 Blood In Urine 02/19/2009 MERRILL DO, CHARMAINE K 599.70 Blood In Urine 02/19/2009 MERRILL DO, CHARMAINE K 599.70 Blood In Urine 02/19/2009 MERRILL DO, CHARMAINE K 599.70 Blood In Urine 02/19/2009 MERRILL DO, CHARMAINE K 599.70 Blood In Urine 02/19/2009 MERRILL DO, CHARMAINE K 599.70 Blood In Urine 02/19/2009 MERRILL DO, CHARMAINE K 599.70 Blood In Urine 02/19/2009 MERRILL DO, CHARMAINE K 599.70 Blood In Urine 02/19/2009 MUOGHALU DDS, SANA N 599.70 blood in urine 03/19/2009 NODX NO DIAGNOSIS 03/19/2009 MERRILL DO, CHARMAINE K NODX No Diagnosis 03/19/2009 SARI MOJICA MD NODX No Diagnosis 03/19/2009 MERRILL DO, CHARMAINE K NODX No Diagnosis 03/19/2009 MERRILL DO, CHARMAINE K NODX No Diagnosis 03/19/2009 MERRILL DOCHARMAINE NODX No Diagnosis 03/19/2009 MERRILL DO, CHARMAINE K NODX No Diagnosis 03/19/2009 MERRILL DO, CHARMAINE K NODX No Diagnosis 03/19/2009 MERRILL DO, CHARMAINE K NODX No Diagnosis 03/19/2009 MERRILL DO, CHARMAINE K NODX No Diagnosis 03/19/2009 MERRILL DO, CHARMAINE K NODX No Diagnosis 03/19/2009 MERRILL DO, CHARMAINE K NODX No Diagnosis 03/19/2009 FROYLANOGARTURU DDS, SANA N NODX NO DIAGNOSIS 05/23/2009 Ot 250.00 DIAB MIHAELA WO COMPL, TYPE II OR UNSPEC TY 05/23/2009 Ot 401.9 HYPERTENSION NOS 05/23/2009 Ot 574.20 CHOLELITHIASIS NOS 05/23/2009 Ot 592.1 CALCULUS OF URETER 05/23/2009 Ot 788.0 RENAL COLIC 05/23/2009 Ot 789.09 05/23/2009 Ot V58.67 LONG-TERM (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 07/05/2009 Ot 250.02 DIAB MIHAELA WO COMPL, TYPE II OR UNSPEC TY 07/05/2009 Ot 272.1 PURE HYPERGLYCERIDEMIA 07/05/2009 Ot 274.9 GOUT NOS 07/05/2009 Ot 278.00 OBESITY, NOS 07/05/2009 Ot 305.1 TOBACCO USE DISORDER 07/05/2009 Ot 401.9 HYPERTENSION NOS 07/05/2009 Ot 414.01 CORONARY ATHEROSCLEROSIS OF [place] CORON 07/05/2009 Ot 574.20 CHOLELITHIASIS NOS 07/05/2009 Ot 577.0 ACUTE PANCREATITIS 07/05/2009 Ot 592.0 CALCULUS OF KIDNEY 07/05/2009 Ot 593.9 RENAL URETERAL DIS NOS 07/05/2009 Ot 794.39 ABN CARDIOVASC STUDY NEC 07/05/2009 Ot V12.79 PERSONAL HISTORY OTH SPEC DIGESTIVE SYST 07/05/2009 Ot V85.39 BODY MASS INDEX 39.0-39.9, ADULT 08/16/2009 Ot 414.00 CORON ATHEROSCLER NOS TYPE VESSEL, NATIV 08/16/2009 Ot 440.20 ATHEROSCLEROSIS [place] ARTERIES EXTREMIT 08/16/2009 Ot 496 CHR AIRWAY OBSTRUCT NEC 08/16/2009 Ot 786.50 CHEST PAIN NOS 09/30/2009 729.5 PAIN IN LIMB 09/30/2009 MERRILL DO, CHARMAINE K 729.5 Pain In Limb 09/30/2009 SARI MOJICA MD 729.5 Pain In Limb 09/30/2009 MERRILL DO, CHARMAINE K 729.5 Pain In Limb 09/30/2009 MERRILL DO, CHARMAINE K 729.5 Pain In Limb 09/30/2009 MERRILL DO, CHARMAINE K 729.5 Pain In Limb 09/30/2009 MERRILL DO, CHARMAINE K 729.5 Pain In Limb 09/30/2009 MERRILL DO, CHARMAINE K 729.5 Pain In Limb 09/30/2009 MERRILL DO, CHARMAINE K 729.5 Pain In Limb 09/30/2009 MERRILL DO, CHARMAINE K 729.5 Pain In Limb 09/30/2009 MERRILL DO, CHARMAINE K 729.5 Pain In Limb 09/30/2009 MERRILL DO, CHARMAINE K 729.5 Pain In Limb 09/30/2009 LUIZ LUNA, SANA N 729.5 PAIN IN LIMB 02/03/2010 692.83 DERMATITIS DUE TO METALS 02/03/2010 MERRILL DO, CHARMAINE K 692.83 Dermatitis Due To Metals 02/03/2010 SARI MOJICA MD 692.83 Dermatitis Due To Metals 02/03/2010 MERRILL DO, CHARMAINE K 692.83 Dermatitis Due To Metals 02/03/2010 MERRILL DO, CHARMAINE K 692.83 Dermatitis Due To Metals 02/03/2010 MERRILL DO, CHARMAINE K 692.83 Dermatitis Due To Metals 02/03/2010 MERRILL DO, CHARMAINE K 692.83 Dermatitis Due To Metals 02/03/2010 MERRILL DO, CHARMAINE K 692.83 Dermatitis Due To Metals 02/03/2010 MERRILL DO, CHARMAINE K 692.83 Dermatitis Due To Metals 02/03/2010 MERRILL DO, CHARMAINE K 692.83 Dermatitis Due To Metals 02/03/2010 MERRILL DO, CHARMAINE K 692.83 Dermatitis Due To Metals 02/03/2010 MERRILL DO, CHARMAINE K 692.83 Dermatitis Due To Metals 02/03/2010 LUIZ LUNA, SANA N 692.83 DERMATITIS DUE TO METALS 05/14/2010 585.3 CHRONIC KIDNEY DISEASE STAGE III (MODERATE) 05/14/2010 MERRILL DO, CHARMAINE K 585.3 CHRONIC KIDNEY DISEASE STAGE III (MODERATE) 05/14/2010 GALINA KRAMER, SARI 585.3 CHRONIC KIDNEY DISEASE STAGE III (MODERATE) 05/14/2010 MERRILL DO, CHARMAINE K 585.3 CHRONIC KIDNEY DISEASE STAGE III (MODERATE) 05/14/2010 MERRILL DO, CHARMAINE K 585.3 CHRONIC KIDNEY DISEASE STAGE III (MODERATE) 05/14/2010 MERRILL DO, CHARMAINE K 585.3 CHRONIC KIDNEY DISEASE STAGE III (MODERATE) 05/14/2010 MERRILL DO, CHARMAINE K 585.3 CHRONIC KIDNEY DISEASE STAGE III (MODERATE) 05/14/2010 MERRILL DO, CHARMAINE K 585.3 CHRONIC KIDNEY DISEASE STAGE III (MODERATE) 05/14/2010 MERRILL DO, CHARMAINE K 585.3 CHRONIC KIDNEY DISEASE STAGE III (MODERATE) 05/14/2010 MERRILL DO, CHARMAINE K 585.3 CHRONIC KIDNEY DISEASE STAGE III (MODERATE) 05/14/2010 MERRILL DO, CHARMAINE K 585.3 CHRONIC KIDNEY DISEASE STAGE III (MODERATE) 05/14/2010 MERRILL DO, CHARMAINE K 585.3 CHRONIC KIDNEY DISEASE STAGE III (MODERATE) 05/14/2010 LUIZ DDS, SANA [place] 585.3 CHRONIC KIDNEY DISEASE STAGE III ( MODERATE) 12/10/2010 278.00 OBESITY UNSPECIFIED 12/10/2010 700 CORNS AND CALLOSITIES 12/10/2010 724.2 LUMBAGO 12/10/2010 V04.81 FLU DX (3 YRS AND ABOVE, IM) 12/10/2010 MERRILL DO, CHARMAINE K 278.00 OBESITY UNSPECIFIED 12/10/2010 MERRILL DO, CHARMAINE K 700 Corns And Callosities 12/10/2010 MERRILL DO, CHARMAINE K 724.2 LUMBAGO 12/10/2010 MERRILL DO, CHARMAINE K V04.81 FLU DX (3 YRS AND ABOVE, IM) 12/10/2010 SARI MOJICA MD 278.00 OBESITY UNSPECIFIED 12/10/2010 SARI MOJICA MD 700 Corns And Callosities 12/10/2010 SARI MOJICA MD 724.2 LUMBAGO 12/10/2010 SARI MOJICA MD V04.81 FLU DX (3 YRS AND ABOVE, IM) 12/10/2010 MERRILL DO, CHARMAINE K 278.00 OBESITY UNSPECIFIED 12/10/2010 MERRILL DO, CHARMAINE K 700 Corns And Callosities 12/10/2010 MERRILL DO, CHARMAINE K 724.2 LUMBAGO 12/10/2010 MERRILL DO, CHARMAINE K V04.81 FLU DX (3 YRS AND ABOVE, IM) 12/10/2010 MERRILL DO, CHARMAINE K 278.00 OBESITY UNSPECIFIED 12/10/2010 MERRILL DO, CHARMAINE K 700 Corns And Callosities 12/10/2010 MERRILL DO, CHARMAINE K 724.2 LUMBAGO 12/10/2010 MERRILL DO, CHARMAINE K V04.81 FLU DX (3 YRS AND ABOVE, IM) 12/10/2010 MERRILL DO, CHARMAINE K 278.00 OBESITY UNSPECIFIED 12/10/2010 MERRILL DO, CHARMAINE K 700 Corns And Callosities 12/10/2010 MERRILL DO, CHARMAINE K 724.2 LUMBAGO 12/10/2010 MERRILL DO, CHARMAINE K V04.81 FLU DX (3 YRS AND ABOVE, IM) 12/10/2010 MERRILL DO, CHARMAINE K 278.00 OBESITY UNSPECIFIED 12/10/2010 MERRILL DO, CHARMAINE K 700 Corns And Callosities 12/10/2010 MERRILL DO, CHARMAINE K 724.2 LUMBAGO 12/10/2010 MERRILL DO, CHARMAINE K V04.81 FLU DX (3 YRS AND ABOVE, IM) 12/10/2010 MERRILL DO, CHARMAINE K 278.00 OBESITY UNSPECIFIED 12/10/2010 MERRILL DO, CHARMAINE K 700 Corns And Callosities 12/10/2010 MERRILL DO, CHARMAINE K 724.2 LUMBAGO 12/10/2010 MERRILL DO, CHARMAINE K V04.81 FLU DX (3 YRS AND ABOVE, IM) 12/10/2010 MERRILL DO, CHARMAINE K 278.00 OBESITY UNSPECIFIED 12/10/2010 MERRILL DO, CHARMAINE K 700 Corns And Callosities 12/10/2010 MERRILL DO, CHARMAINE K 724.2 LUMBAGO 12/10/2010 MERRILL DO, CHARMAINE K V04.81 FLU DX (3 YRS AND ABOVE, IM) 12/10/2010 MERRILL DO, CHARMAINE K 278.00 OBESITY UNSPECIFIED 12/10/2010 MERRILL DO, CHARMAINE K 700 Corns And Callosities 12/10/2010 MERRILL DO, CHARMAINE K 724.2 LUMBAGO 12/10/2010 MERRILL DO, CHARMAINE K V04.81 FLU DX (3 YRS AND ABOVE, IM) 12/10/2010 MERRILL DO, CHARMAINE K 278.00 OBESITY UNSPECIFIED 12/10/2010 MERRILL DO, CHARMAINE K 700 Corns And Callosities 12/10/2010 MERRILL DO, CHARMAINE K 724.2 LUMBAGO 12/10/2010 MERRILL DO, CHARMAINE K V04.81 FLU DX (3 YRS AND ABOVE, IM) 12/10/2010 MERRILL DO, CHARMAINE K 278.00 OBESITY UNSPECIFIED 12/10/2010 MERRILL DO, CHARMAINE K 700 Corns And Callosities 12/10/2010 MERRILL DO, CHARMAINE K 724.2 LUMBAGO 12/10/2010 MERRILL DO, CHARMAINE K V04.81 FLU DX (3 YRS AND ABOVE, IM) 12/10/2010 MUOGHALU DDS, SANA N 278.00 OBESITY UNSPECIFIED 12/10/2010 MUOGHALU DDS, SANA N 700 CORNS AND CALLOSITIES 12/10/2010 MUOGHALU DDS, SANA N 724.2 LUMBAGO 12/10/2010 MUOGHALU DDS, SANA N V04.81 FLU DX (3 YRS AND ABOVE, IM) 01/07/2011 Ot 250.00 DIAB MIHAELA WO COMPL, TYPE II OR UNSPEC TY 01/07/2011 Ot 305.1 TOBACCO USE DISORDER 01/07/2011 Ot 401.9 HYPERTENSION NOS 01/07/2011 Ot 414.01 CORONARY ATHEROSCLEROSIS OF [place] CORON 01/07/2011 Ot 786.50 CHEST PAIN NOS 01/07/2011 Ot 789.00 ABDOMINAL PAIN, UNSPECIFIED SITE 01/07/2011 Ot 791.9 ABN URINE FINDINGS NEC 01/07/2011 Ot V45.82 PERCUTANEOUS TRANSLUM CORON ANGIOPLASTY 01/07/2011 Ot V58.67 LONG-TERM (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 05/01/2011 Ot 840.4 SPRAIN ROTATOR CUFF 05/01/2011 Ot 924.20 CONTUSION OF FOOT 05/01/2011 Ot 959.2 SHLDR/UPPER ARM INJ NOS 05/01/2011 Ot E000.8 OTHER EXTERNAL CAUSE STATUS 05/01/2011 Ot E849.0 ACCIDENT IN HOME 05/01/2011 Ot E917.9 STRUCK BY OBJ/PERSON NEC 05/01/2011 Ot E927.0 OVEREXERTION FROM SUDDEN STRENUOUS MOVEM 05/13/2011 840.4 ROTATOR CUFF (CAPSULE) SPRAIN 05/13/2011 MERRILL DO, CHARMAINE K 840.4 Rotator Cuff (capsule) Sprain 05/13/2011 SARI MOJICA MD 840.4 Rotator Cuff (capsule) Sprain 05/13/2011 MERRILL DO, CHARMAINE K 840.4 Rotator Cuff (capsule) Sprain 05/13/2011 MERRILL DO, CHARMAINE K 840.4 Rotator Cuff (capsule) Sprain 05/13/2011 MERRILL DO, CHARMAINE K 840.4 Rotator Cuff (capsule) Sprain 05/13/2011 MERRILL DO, CHARMAINE K 840.4 Rotator Cuff (capsule) Sprain 05/13/2011 MERRILL DO, CHARMAINE K 840.4 Rotator Cuff (capsule) Sprain 05/13/2011 MERRILL DO, CHARMAINE K 840.4 Rotator Cuff (capsule) Sprain 05/13/2011 MERRILL DO, CHARMAINE K 840.4 Rotator Cuff (capsule) Sprain 05/13/2011 MERRILL DO, CHARMAINE K 840.4 Rotator Cuff (capsule) Sprain 05/13/2011 MERRILL DO, CHARMAINE K 840.4 Rotator Cuff (capsule) Sprain 05/13/2011 LUIZ LUNA, SANA N 840.4 ROTATOR CUFF (CAPSULE) SPRAIN 06/21/2011 719.41 PAIN IN JOINT INVOLVING SHOULDER REGION 06/21/2011 CHARMAINE MERRILL DO 719.41 Pain In Joint Involving Shoulder Region 06/21/2011 SARI MOJICA MD 719.41 Pain In Joint Involving Shoulder Region 06/21/2011 CHARMAINE MERRILL DO 719.41 Pain In Joint Involving Shoulder Region 06/21/2011 KATERIN MERRILL DOA K 719.41 Pain In Joint Involving Shoulder Region 06/21/2011 CHARMAINE MERRILL DO K 719.41 Pain In Joint Involving Shoulder Region 06/21/2011 CHARMAINE MERRILL DO 719.41 Pain In Joint Involving Shoulder Region 06/21/2011 CHARMAINE MERRILL DO K 719.41 Pain In Joint Involving Shoulder Region 06/21/2011 CHARMAINE MERRILL DO K 719.41 Pain In Joint Involving Shoulder Region 06/21/2011 CHARMAINE MERRILL DO K 719.41 Pain In Joint Involving Shoulder Region 06/21/2011 CHARMAINE MERRILL DO K 719.41 Pain In Joint Involving Shoulder Region 06/21/2011 CHARMAINE MERRILL DO K 719.41 Pain In Joint Involving Shoulder Region 06/21/2011 LUIZ LUNA, SANA N 719.41 PAIN IN JOINT INVOLVING SHOULDER REGION 11/27/2011 Ot 250.00 DIAB MIHAELA WO COMPL, TYPE II OR UNSPEC TY 11/27/2011 Ot 414.00 CORON ATHEROSCLER NOS TYPE VESSEL, NATIV 11/27/2011 Ot 789.09 ABDOMINAL PAIN, OTHER SPECIFIED SITE 11/27/2011 Ot V45.82 PERCUTANEOUS TRANSLUM CORON ANGIOPLASTY 11/27/2011 Ot V58.67 LONG-TERM (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 11/27/2011 Ot V58.69 OTH MED,LT,CURRENT USE 03/23/2012 CHARMAINE MERRILL DO 414.00 CORONARY ATHEROSCLEROSIS OF UNSPECIFIED TYPE OF VESSEL [place] OR GRAFT 03/23/2012 CHARMAINE MERRILL DO 780.52 INSOMNIA UNSPECIFIED 03/23/2012 KATERIN MERRILL DOA K 791.0 MICROALBUMINURIA 03/23/2012 CHARMAINE MERRILL DO K V58.69 LONG-TERM (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 OTHER MEDICATIONS 03/23/2012 SARI MOJICA MD 414.00 CORONARY ATHEROSCLEROSIS OF UNSPECIFIED TYPE OF VESSEL [place] OR GRAFT 03/23/2012 SARI MOJICA MD 780.52 INSOMNIA UNSPECIFIED 03/23/2012 SARI MOJICA MD 791.0 MICROALBUMINURIA 03/23/2012 SARI MOJICA MD V58.69 LONG-TERM (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 OTHER MEDICATIONS 03/23/2012 CHARMAINE MERRILL DO 414.00 CORONARY ATHEROSCLEROSIS OF UNSPECIFIED TYPE OF VESSEL [place] OR GRAFT 03/23/2012 CHARMAINE MERRILL DO 780.52 INSOMNIA UNSPECIFIED 03/23/2012 KATERIN MERRILL DOA K 791.0 MICROALBUMINURIA 03/23/2012 GARFIELD MAURICIO CHARMAINE K V58.69 LONG-TERM (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 OTHER MEDICATIONS 03/23/2012 KATERIN MERRILL DOA K 414.00 CORONARY ATHEROSCLEROSIS OF UNSPECIFIED TYPE OF VESSEL [place] OR GRAFT 03/23/2012 GARFIELD MAURICIO CHARMAINE K 780.52 INSOMNIA UNSPECIFIED 03/23/2012 GARFIELD MAURICIO CHARMAINE K 791.0 MICROALBUMINURIA 03/23/2012 GARFIELD MAURICIO CHARMAINE K V58.69 LONG-TERM (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 OTHER MEDICATIONS 03/23/2012 MERRILL DO, CHARMAINE K 414.00 CORONARY ATHEROSCLEROSIS OF UNSPECIFIED TYPE OF VESSEL [place] OR GRAFT 03/23/2012 MERRILL DO, CHARMAINE K 780.52 INSOMNIA UNSPECIFIED 03/23/2012 MERRILL DO, CHARMAINE K 791.0 MICROALBUMINURIA 03/23/2012 MERRILL DO, CHARMAINE K V58.69 LONG-TERM (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 OTHER MEDICATIONS 03/23/2012 MERRILL DO, CHARMAINE K 414.00 CORONARY ATHEROSCLEROSIS OF UNSPECIFIED TYPE OF VESSEL [place] OR GRAFT 03/23/2012 MERRILL DO, CHARMAINE K 780.52 INSOMNIA UNSPECIFIED 03/23/2012 MERRILL DO, CHARMAINE K 791.0 MICROALBUMINURIA 03/23/2012 MERRILL DO, CHARMAINE K V58.69 LONG-TERM (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 OTHER MEDICATIONS 03/23/2012 MERRILL DO, CHARMAINE K 414.00 CORONARY ATHEROSCLEROSIS OF UNSPECIFIED TYPE OF VESSEL [place] OR GRAFT 03/23/2012 MERRILL DO, CHARMAINE K 780.52 INSOMNIA UNSPECIFIED 03/23/2012 MERRILL DO, CHARMAINE K 791.0 MICROALBUMINURIA 03/23/2012 MERRILL DO, CHARMAINE K V58.69 LONG-TERM (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 OTHER MEDICATIONS 03/23/2012 MERRILL DO, CHARMAINE K 414.00 CORONARY ATHEROSCLEROSIS OF UNSPECIFIED TYPE OF VESSEL [place] OR GRA[place] 03/23/2012 MERRILL DO, CHARMAINE K 780.52 INSOMNIA UNSPECIFIED 03/23/2012 MERRILL DO, CHARMAINE K 791.0 MICROALBUMINURIA 03/23/2012 MERRILL DO, CHARMAINE K V58.69 LONG-TERM (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 OTHER MEDICATIONS 03/23/2012 MERRILL DO, CHARMAINE K 414.00 CORONARY ATHEROSCLEROSIS OF UNSPECIFIED TYPE OF VESSEL [place] 03/23/2012 MERRILL DO, CHARMAINE K 780.52 INSOMNIA UNSPECIFIED 03/23/2012 MERRILL DO, CHARMAINE K 791.0 MICROALBUMINURIA 03/23/2012 MERRILL DO, CHARMAINE K V58.69 LONG-TERM (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 OTHER MEDICATIONS 03/23/2012 MERRILL DO, CHARMAINE K 414.00 CORONARY ATHEROSCLEROSIS OF UNSPECIFIED TYPE OF VESSEL [place] OR [place]RAFT 03/23/2012 MERRILL DO, CHARMAINE K 780.52 INSOMNIA UNSPECIFIED 03/23/2012 MERRILL DO, CHARMAINE K 791.0 MICROALBUMINURIA 03/23/2012 MERRILL DO, CHARMAINE K V58.69 LONG-TERM (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 OTHER MEDICATIONS 03/23/2012 MERRILL CHARMAINE MAURICIO 414.00 CORONARY ATHEROSCLEROSIS OF UNSPECIFIED TYPE OF VESSEL [place]RA[place] 03/23/2012 MERRILL CHARMAINE MAURICIO 780.52 INSOMNIA UNSPECIFIED 03/23/2012 CHARMAINE MERRILL DO 791.0 MICROALBUMINURIA 03/23/2012 GARFIELD MAURICIOCHARMAINE V58.69 LONG-TERM (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 OTHER MEDICATIONS 03/27/2012 Ot 250.00 DIAB MIHAELA WO COMPL, TYPE II OR UNSPEC TY 03/27/2012 Ot 272.4 HYPERLIPIDEMIA NEC/NOS 03/27/2012 Ot 276.50 VOLUME DEPLETION, UNSPECIFIED 03/27/2012 Ot 305.1 TOBACCO USE DISORDER 03/27/2012 Ot 403.90 HYPTNSV CHR KID DIS, UNSPEC, W CHR KD ST 03/27/2012 Ot 414.01 CORONARY ATHEROSCLEROSIS OF [place] CORON 03/27/2012 Ot 585.9 CHRONIC KIDNEY DISEASE, UNSPECIFIED 03/27/2012 Ot 787.01 NAUSEA WITH VOMITING 03/27/2012 Ot 789.09 ABDOMINAL PAIN, OTHER SPECIFIED SITE 03/27/2012 Ot V45.82 PERCUTANEOUS TRANSLUM CORON ANGIOPLASTY 06/05/2012 Ot 250.00 DIAB MIHAELA WO COMPL, TYPE II OR UNSPEC TY 06/05/2012 Ot 274.9 GOUT NOS 06/05/2012 Ot 414.01 CORONARY ATHEROSCLEROSIS OF [place] CORON 06/05/2012 Ot 593.9 RENAL URETERAL DIS NOS 06/05/2012 Ot 786.50 CHEST PAIN NOS 06/05/2012 Ot 794.31 ABNORM ELECTROCARDIOGRAM 06/05/2012 Ot V45.82 PERCUTANEOUS TRANSLUM CORON ANGIOPLASTY 06/05/2012 Ot V58.66 LONG-TERM (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 ASPIRIN 06/05/2012 Ot V58.67 LONG-TERM (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 06/05/2012 Ot V58.69 OTH MED,LT,CURRENT USE 07/10/2012 HARRISON KRAMER, LESIA Crowder Ot 719.46 JOINT PAIN-L/LEG 07/10/2012 HARRISON KRAMER, LESIA Crowder Ot 823.80 FX TIBIA NOS-CLOSED 07/10/2012 LESIA TERRY MD Ot E000.8 OTHER EXTERNAL CAUSE STATUS 07/10/2012 LESIA TERRY MD Ot E917.4 STAT OB W/O SUB FALL NEC 04/19/2013 FERNANDA KRAMER, ARIELLE Lezama Ot 250.00 DIAB MIHAELA WO COMPL, TYPE II OR UNSPEC TY 04/19/2013 FERNANDA KRAMER, ARIELLE Lezama Ot 272.0 PURE HYPERCHOLESTEROLEM 04/19/2013 ARIELLE MICHAEL MD Ot 272.4 HYPERLIPIDEMIA NEC/NOS 04/19/2013 ARIELLE MICHAEL MD Ot 274.9 GOUT NOS 04/19/2013 ARIELLE MICHAEL MD Ot 276.1 HYPOSMOLALITY 04/19/2013 ARIELLE MICHAEL MD Ot 305.1 TOBACCO USE DISORDER 04/19/2013 ARIELLE MICHAEL MD Ot 401.9 HYPERTENSION NOS 04/19/2013 ARIELLE MICHAEL MD Ot 414.01 CORONARY ATHEROSCLEROSIS OF [place] CORON 04/19/2013 ARIELLE MICHAEL MD Ot 574.20 CHOLELITHIASIS NOS 04/19/2013 ARIELLE MICHAEL MD Ot 577.0 ACUTE PANCREATITIS 04/19/2013 ARIELLE MICHAEL MD Ot 787.01 NAUSEA WITH VOMITING 04/19/2013 ARIELLE MICHAEL MD Ot V15.81 HX OF PAST NONCOMPLIANCE 04/19/2013 ARIELLE MICHAEL MD Ot V45.82 PERCUTANEOUS TRANSLUM CORON ANGIOPLASTY 04/20/2013 BRAYAN KRAMER, FACUNDO M Ot 574.10 CHOLELITH W CHOLECYS NEC 05/08/2013 MERRILL DO, CHARMAINE K 372.30 CONJUNCTIVITIS UNSPECIFIED 05/08/2013 MERRILL DO, CHARMAINE K 372.30 CONJUNCTIVITIS UNSPECIFIED 05/08/2013 MERRILL DO, CHARMAINE K 372.30 CONJUNCTIVITIS UNSPECIFIED 05/08/2013 MERRILL DO, CHARMAINE K 372.30 CONJUNCTIVITIS UNSPECIFIED 05/08/2013 MERRILL DO, CHARMAINE K 372.30 CONJUNCTIVITIS UNSPECIFIED 05/08/2013 MERRILL DO, CHARMAINE K 372.30 CONJUNCTIVITIS UNSPECIFIED 05/08/2013 MERRILL DO, CHARMAINE K 372.30 CONJUNCTIVITIS UNSPECIFIED 05/08/2013 MERRILL DO, CHARMAINE K 372.30 CONJUNCTIVITIS UNSPECIFIED 06/11/2013 MERRILL DO, CHARMAINE K 274.9 GOUT UNSPECIFIED 06/11/2013 MERRILL DO, CHARMAINE K 274.9 GOUT UNSPECIFIED 06/11/2013 MERRILL DO, CHARMAINE K 274.9 GOUT UNSPECIFIED 06/11/2013 MERRILL DO, CHARMAINE K 274.9 GOUT UNSPECIFIED 06/11/2013 MERRILL DO, CHARMAINE K 274.9 GOUT UNSPECIFIED 06/11/2013 MERRILL DO, CHARMAINE K 274.9 GOUT UNSPECIFIED 06/11/2013 MERRILL DO, CHARMAINE K 274.9 GOUT UNSPECIFIED 09/10/2013 MERRILL DO, CHARMAINE K 719.46 PAIN IN JOINT INVOLVING LOWER LEG 09/10/2013 MERRILL DO, CHARMAINE K 784.0 HEADACHE 09/10/2013 MERRILL DO, CHARMAINE K V15.81 PERSONAL HISTORY OF NONCOMPLIANCE WITH MEDICAL TREATMENT PRESENTING HAZARDS TO HEALTH 09/10/2013 MERRILL DO, CHARMAINE K 719.46 PAIN IN JOINT INVOLVING LOWER LEG 09/10/2013 MERRILL DO, CHARMAINE K 784.0 HEADACHE 09/10/2013 MERRILL DO, CHARMAINE K V15.81 PERSONAL HISTORY OF NONCOMPLIANCE WITH MEDICAL TREATMENT PRESENTING HAZARDS TO HEALTH 09/10/2013 MERRILL DO, CHARMAINE K 719.46 PAIN IN JOINT INVOLVING LOWER LEG 09/10/2013 MERRILL DO, CHARMAINE K 784.0 HEADACHE 09/10/2013 MERRILL DO, CHARMAINE K V15.81 PERSONAL HISTORY OF NONCOMPLIANCE WITH MEDICAL TREATMENT PRESENTING HAZARDS TO HEALTH 09/10/2013 MERRILL DO, CHARMAINE K 719.46 PAIN IN JOINT INVOLVING LOWER LEG 09/10/2013 MERRILL DO, CHARMAINE K 784.0 HEADACHE 09/10/2013 MERRILL DO, CHARMAINE K V15.81 PERSONAL HISTORY OF NONCOMPLIANCE WITH MEDICAL TREATMENT PRESENTING HAZARDS TO HEALTH 09/10/2013 MERRILL DO, CHARMAINE K 719.46 PAIN IN JOINT INVOLVING LOWER LEG 09/10/2013 MERRILL DO, CHARMAINE K 784.0 HEADACHE 09/10/2013 MERRILL DO, CHARMAINE K V15.81 PERSONAL HISTORY OF NONCOMPLIANCE WITH MEDICAL TREATMENT PRESENTING HAZARDS TO HEALTH 11/06/2013 COMPA WANG Ot 719.46 JOINT PAIN-L/LEG 02/06/2014 Ot 414.01 02/06/2014 Ot 786.50 02/06/2014 Ot 414.9 02/06/2014 Ot 786.50 02/06/2014 AMI MEZA MD Ot 717.5 02/11/2014 MERRILL DO, CHARMAINE K 840.9 SPRAIN OF UNSPECIFIED SITE OF SHOULDER AND UPPER ARM 03/06/2014 MARCEL MARIA TERESA KRAMER (DDU) Ot V68.01 03/06/2014 MARIA TERESA ROD MD (DDU) Ot V82.89 06/15/2014 OJS QUIROZ DO Ot 250.00 DIAB MIHAELA WO COMPL, TYPE II OR UNSPEC TY 06/15/2014 JOS QUIROZ DO Ot 275.2 DIS MAGNESIUM METABOLISM 06/15/2014 JOS QUIROZ DO Ot 558.9 NONINF GASTROENTERIT NEC 06/15/2014 JOS QUIROZ DO Ot 789.07 ABDOMINAL PAIN, GENERALIZED 06/15/2014 JOS QUIROZ DO Ot V58.69 OT MED,LT,CURRENT USE 06/15/2014 Ot 414.01 06/15/2014 Ot 786.50 06/15/2014 Ot 414.9 06/15/2014 Ot 786.50 06/15/2014 AMI MEZA MD Ot 717.5 06/15/2014 VINCE MEJIA MD (DDU) Ot V68.01 06/15/2014 VINCE MEJIA MD (DDU) Ot V82.89 06/15/2014 MARIA TERESA RDO MD (DDU) Ot V68.01 06/15/2014 MARIA TERESA ROD MD (DDU) Ot V82.89 09/08/2014 Ot 414.01 09/08/2014 Ot 786.50 09/08/2014 Ot 414.9 09/08/2014 Ot 786.50 09/08/2014 AMI MEZA MD Ot 717.5 09/08/2014 VINCE MEJIA MD (DDU) Ot V68.01 09/08/2014 VINCE MEJIA MD (DDU) Ot V82.89 09/08/2014 MARIA TERESA ROD MD (DDU) Ot V68.01 09/08/2014 MARIA TERESA ROD MD (DDU) Ot V82.89 09/08/2014 COMPA WANG Ot 250.00 DIAB MIHAELA WO COMPL, TYPE II OR UNSPEC TY 09/08/2014 COMPA WANG Ot 272.0 PURE HYPERCHOLESTEROLEM 09/08/2014 COMPA WANG Ot 274.9 GOUT NOS 09/08/2014 COMPA WANG Ot 401.9 HYPERTENSION NOS 09/08/2014 COMPA WANG Ot 729.5 PAIN IN LIMB 09/08/2014 COMPA WANG Ot V15.81 HX OF PAST NONCOMPLIANCE 09/08/2014 Ot 414.01 09/08/2014 Ot 786.50 09/08/2014 Ot 414.9 09/08/2014 Ot 786.50 09/08/2014 AMI MEZA MD Ot 717.5 09/08/2014 VINCE MEJIA MD (DDU) Ot V68.01 09/08/2014 VINCE MEJIA MD (DDU) Ot V82.89 09/08/2014 MARIA TERESA ROD MD (DDU) Ot V68.01 09/08/2014 MARIA TERESA ROD MD (DDU) Ot V82.89 09/13/2014 Ot 414.01 09/13/2014 Ot 786.50 09/13/2014 Ot 414.9 09/13/2014 Ot 786.50 09/13/2014 AMI MEZA MD Ot 717.5 09/13/2014 VINCE MEJIA MD (DDU) Ot V68.01 09/13/2014 VINCE MEJIA MD (DDU) Ot V82.89 09/13/2014 MARIA TERESA ROD MD (DDU) Ot V68.01 09/13/2014 MARIA TERESA ROD MD (DDU) Ot V82.89 01/12/2015 Ot 414.01 01/12/2015 Ot 786.50 01/12/2015 Ot 414.9 01/12/2015 Ot 786.50 01/12/2015 AMI MEZA MD Ot 717.5 01/12/2015 VINCE MEJIA MD (DDU) Ot V68.01 01/12/2015 VINCE MEJIA MD (DDU) Ot V82.89 01/12/2015 MARIA TERESA ROD MD (DDU) Ot V68.01 01/12/2015 MARIA TERESA ROD MD (DDU) Ot V82.89 01/12/2015 ANGELIA CHAMORRO DO Ot E11.9 TYPE 2 DIABETES MELLITUS WITHOUT COMPLIC 01/12/2015 ANGELIA CHAMORRO DO Ot F17.210 NICOTINE DEPENDENCE, CIGARETTES, UNCOMPL 01/12/2015 ANGELIA CHAMORRO DO Ot I70.201 UNSP ATHSCL [place] [facility] 01/12/2015 ANGELIA CHAMORRO DO Ot M77.31 CALCANEAL SPUR, RIGHT FOOT 01/12/2015 ANGELIA CHAMORRO DO Ot Z79.4 WATER PLUMBER (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 01/12/2015 ANGELIA CHAMORRO DO Ot Z79.899 OTHER SHELTER (CURRENT) DRUG THERAPY 01/14/2015 Ot 414.01 01/14/2015 Ot 786.50 01/14/2015 Ot 414.9 01/14/2015 Ot 786.50 01/14/2015 AMI MEZA MD Ot 717.5 01/14/2015 VINCE MEJIA MD (DDU) Ot V68.01 01/14/2015 VINCE MEJIA MD (DDU) Ot V82.89 01/14/2015 MARIA TERESA ROD MD (DDU) Ot V68.01 01/14/2015 MARIA TERESA ROD MD (DDU) Ot V82.89 06/27/2015 Ot 414.01 CORONARY ATHEROSCLEROSIS OF [place] CORON 06/27/2015 Ot 786.50 CHEST PAIN NOS 06/27/2015 Ot 414.9 CHR ISCHEMIC HRT DIS NOS 06/27/2015 Ot 786.50 CHEST PAIN NOS 06/27/2015 AMI MEZA MD Ot 717.5 DERANGEMENT MENISCUS NEC 06/27/2015 VINCE MEJIA MD (DDU) Ot V68.01 DISABILITY EXAMINATION 06/27/2015 VINCE MEJIA MD (DDU) Ot V82.89 SCREEN FOR OTH SPECIF CONDITIONS 06/27/2015 MARIA TERESA ROD MD (DDU) Ot V68.01 DISABILITY EXAMINATION 06/27/2015 MARIA TERESA ROD MD (DDU) Ot V82.89 SCREEN FOR OTH SPECIF CONDITIONS 06/28/2015 Ot 414.01 CORONARY ATHEROSCLEROSIS OF [place] CORON 06/28/2015 Ot 786.50 CHEST PAIN NOS 06/28/2015 Ot 414.9 CHR ISCHEMIC HRT DIS NOS 06/28/2015 Ot 786.50 CHEST PAIN NOS 06/28/2015 AMI MEZA MD Ot 717.5 DERANGEMENT MENISCUS NEC 06/28/2015 VINCE MEJIA MD (DDU) Ot V68.01 DISABILITY EXAMINATION 06/28/2015 VINCE MEJIA MD (DDU) Ot V82.89 SCREEN FOR OTH SPECIF CONDITIONS 06/28/2015 MARIA TERESA ROD MD (DDU) Ot V68.01 DISABILITY EXAMINATION 06/28/2015 MARIA TERESA ROD MD ([facility]) Ot V82.89 SCREEN FOR OTH SPECIF CONDITIONS 06/28/2015 KAYA TADEO MD Ot E11.65 TYPE 2 DIABETES MELLITUS WITH HYPERGLYCE 06/28/2015 KAYA TADEO MD Ot E66.9 OBESITY, UNSPECIFIED 06/28/2015 KAYA TADEO MD Ot F17.210 NICOTINE DEPENDENCE, CIGARETTES, UNCOMPL 06/28/2015 KAYA TADEO MD Ot I12.9 HYPERTENSIVE CHRONIC KIDNEY DISEASE W ST 06/28/2015 KAYA TADEO MD Ot K21.9 GASTRO-ESOPHAGEAL REFLUX DISEASE WITHOUT 06/28/2015 KAYA TADEO MD, Ot N18.3 CHRONIC KIDNEY DISEASE, STAGE 3 (MODERAT 06/28/2015 KAYA TADEO MD Ot R07.89 OTHER CHEST PAIN 06/28/2015 KAYA TADEO MD, Ot Z68.37 BODY MASS INDEX (BMI) 37.0-37.9, ADULT 06/28/2015 KAYA TADEO MD Ot Z79.4 SHELTER (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 06/28/2015 KAYA TADEO MD Ot Z91.14 PATIENT'S OTHER NONCOMPLIANCE WITH MEDIC 06/28/2015 KAYA TADEO MD Ot E11.65 TYPE 2 DIABETES MELLITUS WITH HYPERGLYCE 06/28/2015 KAYA TADEO MD Ot E66.9 OBESITY, UNSPECIFIED 06/28/2015 KAYA TADEO MD, Ot F17.210 NICOTINE DEPENDENCE, CIGARETTES, UNCOMPL 06/28/2015 KAYA TADEO MD, Ot I12.9 HYPERTENSIVE CHRONIC KIDNEY DISEASE W ST 06/28/2015 KAYA TADEO MD, Ot K21.9 GASTRO-ESOPHAGEAL REFLUX DISEASE WITHOUT 06/28/2015 KAYA TADEO MD, Ot N18.3 CHRONIC KIDNEY DISEASE, STAGE 3 (MODERAT 06/28/2015 KAYA TADEO MD Ot R07.89 OTHER CHEST PAIN 06/28/2015 KAYA TADEO MD Ot Z68.37 BODY MASS INDEX (BMI) 37.0-37.9, ADULT 06/28/2015 KAYA TADEO MD Ot Z79.4 SHELTER (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 06/28/2015 KAYA TADEO MD Ot Z91.14 PATIENT'S OTHER NONCOMPLIANCE WITH MEDIC 06/30/2015 Ot 414.01 CORONARY ATHEROSCLEROSIS OF [place] CORON 06/30/2015 Ot 786.50 CHEST PAIN NOS 06/30/2015 Ot 414.9 CHR ISCHEMIC HRT DIS NOS 06/30/2015 Ot 786.50 CHEST PAIN NOS 06/30/2015 AMI MEZA MD Ot 717.5 DERANGEMENT MENISCUS NEC 06/30/2015 VINCE MEJIA MD (U) Ot V68.01 DISABILITY EXAMINATION 06/30/2015 VINCE MEJIA MD (U) Ot V82.89 SCREEN FOR OTH SPECIF CONDITIONS 06/30/2015 MARIA TERESA ROD MD (U) Ot V68.01 DISABILITY EXAMINATION 06/30/2015 MARIA TERESA ROD MD (U) Ot V82.89 SCREEN FOR OTH SPECIF CONDITIONS 08/20/2015 Ot 574.20 CHOLELITHIASIS NOS 08/20/2015 Ot 592.0 CALCULUS OF KIDNEY 08/20/2015 Ot 592.1 CALCULUS OF URETER 08/20/2015 Ot 274.11 URIC ACID NEPHROLITHIAS 08/20/2015 Ot 592.1 CALCULUS OF URETER 08/20/2015 Ot 414.01 CORONARY ATHEROSCLEROSIS OF [place] CORON 08/20/2015 Ot 786.50 CHEST PAIN NOS 08/20/2015 Ot 414.9 CHR ISCHEMIC HRT DIS NOS 08/20/2015 Ot 786.50 CHEST PAIN NOS 08/20/2015 AMI MEZA MD Ot 717.5 DERANGEMENT MENISCUS NEC 08/20/2015 VINCE MEJIA MD (U) Ot V68.01 DISABILITY EXAMINATION 08/20/2015 VINCE MEJIA MD (U) Ot V82.89 SCREEN FOR OTH SPECIF CONDITIONS 08/20/2015 MARIA TERESA ROD MD (U) Ot V68.01 DISABILITY EXAMINATION 08/20/2015 MARIA TERESA ROD MD (U) Ot V82.89 SCREEN FOR OTH SPECIF CONDITIONS 08/20/2015 Ot 414.01 CORONARY ATHEROSCLEROSIS OF [place] CORON 08/20/2015 Ot 786.50 CHEST PAIN NOS 08/20/2015 Ot 414.9 CHR ISCHEMIC HRT DIS NOS 08/20/2015 Ot 786.50 CHEST PAIN NOS 08/20/2015 AIM MEZA MD Ot 717.5 DERANGEMENT MENISCUS NEC 08/20/2015 VINCE MEJIA MD (DDU) Ot V68.01 DISABILITY EXAMINATION 08/20/2015 VINCE MEJIA MD (DDU) Ot V82.89 SCREEN FOR OTH SPECIF CONDITIONS 08/20/2015 MARIA TERESA ROD MD (DDU) Ot V68.01 DISABILITY EXAMINATION 08/20/2015 MARIA TERESA ROD MD (DDU) Ot V82.89 SCREEN FOR OTH SPECIF CONDITIONS 09/29/2015 Ot 414.01 CORONARY ATHEROSCLEROSIS OF [place] CORON 09/29/2015 Ot 786.50 CHEST PAIN NOS 09/29/2015 Ot 414.9 CHR ISCHEMIC HRT DIS NOS 09/29/2015 Ot 786.50 CHEST PAIN NOS 09/29/2015 AMI MEZA MD Ot 717.5 DERANGEMENT MENISCUS NEC 09/29/2015 VINCE MEJIA MD (DDU) Ot V68.01 DISABILITY EXAMINATION 09/29/2015 VINCE MEJIA MD (DDU) Ot V82.89 SCREEN FOR OTH SPECIF CONDITIONS 09/29/2015 MARIA TERESA ROD MD (DDU) Ot V68.01 DISABILITY EXAMINATION 09/29/2015 MARIA TERESA ROD MD (DDU) Ot V82.89 SCREEN FOR OTH SPECIF CONDITIONS 11/10/2015 Ot 414.9 CHR ISCHEMIC HRT DIS NOS 11/10/2015 Ot 786.50 CHEST PAIN NOS 11/10/2015 AMI MEZA MD Ot 717.5 DERANGEMENT MENISCUS NEC 11/10/2015 VINCE MEJIA MD (DDU) Ot V68.01 DISABILITY EXAMINATION 11/10/2015 VINCE MEJIA MD (DDU) Ot V82.89 SCREEN FOR OTH SPECIF CONDITIONS 11/10/2015 MARIA TERESA ROD MD (DDU) Ot V68.01 DISABILITY EXAMINATION 11/10/2015 MARIA TERESA ROD MD (DDU) Ot V82.89 SCREEN FOR OTH SPECIF CONDITIONS 01/02/2016 Ot 414.9 CHR ISCHEMIC HRT DIS NOS 01/02/2016 Ot 786.50 CHEST PAIN NOS 01/02/2016 AMI MEZA MD Ot 717.5 DERANGEMENT MENISCUS NEC 01/02/2016 VINCE MEJIA MD (DDU) Ot V68.01 DISABILITY EXAMINATION 01/02/2016 VINCE MEJIA MD (DDU) Ot V82.89 SCREEN FOR OTH SPECIF CONDITIONS 01/02/2016 MARIA TERESA ROD MD (DDU) Ot V68.01 DISABILITY EXAMINATION 01/02/2016 MARIA TERESA ROD MD (DDU) Ot V82.89 SCREEN FOR OTH SPECIF CONDITIONS 01/02/2016 ROSALIE BURDICK MD Ot E11.65 TYPE 2 DIABETES MELLITUS WITH HYPERGLYCE 01/02/2016 ROSALIE BURDICK MD Ot I12.9 HYPERTENSIVE CHRONIC KIDNEY DISEASE W ST 01/02/2016 ROSALIE BURDICK MD Ot N18.9 CHRONIC KIDNEY DISEASE, UNSPECIFIED 01/02/2016 ROSALIE BURDICK MD Ot N28.89 OTHER SPECIFIED DISORDERS OF KIDNEY AND 01/02/2016 ROSALIE BURDICK MD Ot R10.32 LEFT LOWER QUADRANT PAIN 01/02/2016 ROSALIE BURDICK MD Ot R11.2 NAUSEA WITH VOMITING, UNSPECIFIED 01/02/2016 ROSALIE BURDICK MD Ot R19.7 DIARRHEA, UNSPECIFIED 01/02/2016 ROSALIE BURDICK MD Ot Z79.4 SHELTER (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 01/02/2016 ROSALIE BURDICK MD Ot Z79.84 SHELTER (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 ORAL HYPOGLYC 01/02/2016 ROSALIE BURDICK MD Ot Z79.899 OTHER WATER PLUMBER (CURRENT) DRUG THERAPY 01/02/2016 Ot 414.9 CHR ISCHEMIC HRT DIS NOS 01/02/2016 Ot 786.50 CHEST PAIN NOS 01/02/2016 AMI MEZA MD Ot 717.5 DERANGEMENT MENISCUS NEC 01/02/2016 VINCE MEJIA MD (DDU) Ot V68.01 DISABILITY EXAMINATION 01/02/2016 VINCE MEJIA MD (DDU) Ot V82.89 SCREEN FOR OTH SPECIF CONDITIONS 01/02/2016 MARIA TERESA ROD MD (DDU) Ot V68.01 DISABILITY EXAMINATION 01/02/2016 MARIA TERESA ROD MD (DDU) Ot V82.89 SCREEN FOR OTH SPECIF CONDITIONS 01/09/2016 Ot 414.9 CHR ISCHEMIC HRT DIS NOS 01/09/2016 Ot 786.50 CHEST PAIN NOS 01/09/2016 AMI MEZA MD Ot 717.5 DERANGEMENT MENISCUS NEC 01/09/2016 VINCE MEJIA MD (DDU) Ot V68.01 DISABILITY EXAMINATION 01/09/2016 ROBERTO KRAMER, VINCE H (DDU) Ot V82.89 SCREEN FOR OTH SPECIF CONDITIONS 01/09/2016 MARIA TERESA ROD MD (DDU) Ot V68.01 DISABILITY EXAMINATION 01/09/2016 MARIA TERESA ROD MD (DDU) Ot V82.89 SCREEN FOR OTH SPECIF CONDITIONS 01/09/2016 JOS QUIROZ DO Ot E11.9 TYPE 2 DIABETES MELLITUS WITHOUT COMPLIC 01/09/2016 JOS QUIROZ DO Ot I10 ESSENTIAL (PRIMARY) HYPERTENSION 01/09/2016 JOS QUIROZ DO Ot S93.402A SPRAIN OF UNSPECIFIED LIGAMENT OF LEFT A 01/09/2016 JOS QUIROZ DO, Ot S99.912A UNSPECIFIED INJURY OF LEFT ANKLE, INITIA 01/09/2016 JOS QUIROZ DO Ot W18.31XA FALL ON SAME LEVEL DUE TO STEPPING ON AN 01/09/2016 JOS QUIROZ DO, Ot Y92.[address] OR NOT APPLICABLE 01/09/2016 JOS QUIROZ DO Ot Y93.9 ACTIVITY, UNSPECIFIED 01/09/2016 JOS QUIROZ DO, Ot Y99.8 OTHER EXTERNAL CAUSE STATUS 01/09/2016 JOS QUIROZ DO, Ot Z79.4 SHELTER (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 01/09/2016 JOS QUIROZ DO, Ot Z79.899 OTHER SHELTER (CURRENT) DRUG THERAPY 01/10/2016 ROSALIE BURDICK MD Ot E11.65 TYPE 2 DIABETES MELLITUS WITH HYPERGLYCE 01/10/2016 ROSALIE BURDICK MD Ot I12.9 HYPERTENSIVE CHRONIC KIDNEY DISEASE W ST 01/10/2016 ROSALIE BURDICK MD Ot N18.9 CHRONIC KIDNEY DISEASE, UNSPECIFIED 01/10/2016 ROSALIE BURDICK MD Ot N28.89 OTHER SPECIFIED DISORDERS OF KIDNEY AND 01/10/2016 ROSALIE BURDICK MD Ot R10.32 LEFT LOWER QUADRANT PAIN 01/10/2016 ROSALIE BURDICK MD, Ot R11.2 NAUSEA WITH VOMITING, UNSPECIFIED 01/10/2016 ROSALIE BURDICK MD Ot R19.7 DIARRHEA, UNSPECIFIED 01/10/2016 ROSALIE BURDICK MD, Ot Z79.4 WATER PLUMBER (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 01/10/2016 ROSALIE BURDICK MD, Ot Z79.84 SHELTER (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 ORAL HYPOGLYC 01/10/2016 ROSALIE BURDICK MD, Ot Z79.899 OTHER WATER PLUMBER (CURRENT) DRUG THERAPY 01/12/2016 JOS QUIROZ DO, Ot E11.9 TYPE 2 DIABETES MELLITUS WITHOUT COMPLIC 01/12/2016 JOS QUIROZ DO Ot I10 ESSENTIAL (PRIMARY) HYPERTENSION 01/12/2016 JOS QUIROZ DO, Ot S93.402A SPRAIN OF UNSPECIFIED LIGAMENT OF LEFT A 01/12/2016 JOS QUIROZ DO, Ot S99.912A UNSPECIFIED INJURY OF LEFT ANKLE, INITIA 01/12/2016 JOS QUIROZ DO, Ot W18.31XA FALL ON SAME LEVEL DUE TO STEPPING ON AN 01/12/2016 JOS QUIROZ DO, Ot Y92.[address] OR NOT APPLICABLE 01/12/2016 JOS QUIROZ DO, Ot Y93.9 ACTIVITY, UNSPECIFIED 01/12/2016 JOS QUIROZ DO, Ot Y99.8 OTHER EXTERNAL CAUSE STATUS 01/12/2016 JOS QUIROZ DO, Ot Z79.4 WATER PLUMBER (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 01/12/2016 JOS QUIROZ DO, Ot Z79.899 OTHER WATER PLUMBER (CURRENT) DRUG THERAPY 02/24/2016 SAMSON SMITH MD Ot E11.9 TYPE 2 DIABETES MELLITUS WITHOUT COMPLIC 02/24/2016 SAMSON SMITH MD Ot I10 ESSENTIAL (PRIMARY) HYPERTENSION 02/24/2016 SAMSON SMITH MD Ot M10.9 GOUT, UNSPECIFIED 02/24/2016 SAMSON SMITH MD Ot M25.462 EFFUSION, LEFT KNEE 02/24/2016 SAMSON SMITH MD Ot M25.472 EFFUSION, LEFT ANKLE 02/24/2016 SAMSON SMITH MD Ot M25.562 PAIN IN LEFT KNEE 02/24/2016 SAMSON SMITH MD Ot Z79.4 WATER PLUMBER (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 02/24/2016 SASMON SMITH MD Ot Z79.899 OTHER SHELTER (CURRENT) DRUG THERAPY 03/12/2016 BENJAMIN ANAND APRN Ot E11.9 TYPE 2 DIABETES MELLITUS WITHOUT COMPLIC 03/12/2016 BENJAMIN ANAND REMOTE SENSING RESEARCH SCIENTIST Ot I10 ESSENTIAL (PRIMARY) HYPERTENSION 03/12/2016 BENJAMIN ANAND REMOTE SENSING RESEARCH SCIENTIST Ot L03.115 CELLULITIS OF RIGHT LOWER LIMB 03/12/2016 BENJAMIN ANAND REMOTE SENSING RESEARCH SCIENTIST Ot R22.41 LOCALIZED SWELLING, MASS AND LUMP, RIGHT 03/12/2016 BENJAMIN ANAND APRN Ot Z79.4 WATER PLUMBER (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 03/12/2016 BENJAMIN ANAND APRN Ot Z79.899 OTHER WATER PLUMBER (CURRENT) DRUG THERAPY 03/12/2016 BENJAMIN ANAND APRN Ot Z95.5 PRESENCE OF CORONARY ANGIOPLASTY IMPLANT 03/15/2016 BENJAMIN ANAND REMOTE SENSING RESEARCH SCIENTIST Ot E11.9 TYPE 2 DIABETES MELLITUS WITHOUT COMPLIC 03/15/2016 BENJAMIN ANAND APRN Ot I10 ESSENTIAL (PRIMARY) HYPERTENSION 03/15/2016 BENJAMIN ANAND REMOTE SENSING RESEARCH SCIENTIST Ot L03.115 CELLULITIS OF RIGHT LOWER LIMB 03/15/2016 BENJAMIN ANAND REMOTE SENSING RESEARCH SCIENTIST Ot R22.41 LOCALIZED SWELLING, MASS AND LUMP, RIGHT 03/15/2016 BENJAMIN ANAND APRN Ot Z79.4 SHELTER (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 03/15/2016 BNEJAMIN ANAND APRN Ot Z79.899 OTHER SHELTER (CURRENT) DRUG THERAPY 03/15/2016 BENJAMIN ANAND APRN Ot Z95.5 PRESENCE OF CORONARY ANGIOPLASTY IMPLANT 03/18/2016 MIKHAIL ARCHIBALDP Ot E11.9 TYPE 2 DIABETES MELLITUS WITHOUT COMPLIC 03/18/2016 MIKHAIL ARCHIBALD DATA CONTROL CLERK SUPERVISOR Ot F17.210 NICOTINE DEPENDENCE, CIGARETTES, UNCOMPL 03/18/2016 MIKHAIL ARCHIBALD DATA CONTROL CLERK SUPERVISOR Ot I10 ESSENTIAL (PRIMARY) HYPERTENSION 03/18/2016 MIKHAIL ARCHIBALD DATA CONTROL CLERK SUPERVISOR Ot L03.115 CELLULITIS OF RIGHT LOWER LIMB 03/18/2016 MIKHAIL ARCHIBALDP Ot M79.671 PAIN IN RIGHT FOOT 03/18/2016 MIKHAIL ARCHIBALDP Ot Z79.4 SHELTER (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 03/18/2016 MIKHAIL ARCHIBALDP Ot Z79.899 OTHER SHELTER (CURRENT) DRUG THERAPY 03/18/2016 MIKHAIL ARCHIBALD DATA CONTROL CLERK SUPERVISOR Ot Z95.5 PRESENCE OF CORONARY ANGIOPLASTY IMPLANT 03/19/2016 MIKHAIL ARCHIBALD DATA CONTROL CLERK SUPERVISOR Ot E11.9 TYPE 2 DIABETES MELLITUS WITHOUT COMPLIC 03/19/2016 DRAGAN, MIKHAIL DATA CONTROL CLERK SUPERVISOR Ot F17.210 NICOTINE DEPENDENCE, CIGARETTES, UNCOMPL 03/19/2016 DRAGAN, MIKHAIL DATA CONTROL CLERK SUPERVISOR Ot I10 ESSENTIAL (PRIMARY) HYPERTENSION 03/19/2016 DRAGAN, MIKHAIL DATA CONTROL CLERK SUPERVISOR Ot L03.115 CELLULITIS OF RIGHT LOWER LIMB 03/19/2016 DRAGAN, MIKHAIL DATA CONTROL CLERK SUPERVISOR Ot M79.671 PAIN IN RIGHT FOOT 03/19/2016 DRAGAN, MIKHAIL DATA CONTROL CLERK SUPERVISOR Ot Z79.4 WATER PLUMBER (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 03/19/2016 DRAGAN, MIKHAIL DATA CONTROL CLERK SUPERVISOR Ot Z79.899 OTHER WATER PLUMBER (CURRENT) DRUG THERAPY 03/19/2016 DRAGAN, MIKHAIL DATA CONTROL CLERK SUPERVISOR Ot Z95.5 PRESENCE OF CORONARY ANGIOPLASTY IMPLANT 03/24/2016 DRAGAN, MIKHAIL DATA CONTROL CLERK SUPERVISOR Ot E11.9 TYPE 2 DIABETES MELLITUS WITHOUT COMPLIC 03/24/2016 DRAGAN, MIKHAIL DATA CONTROL CLERK SUPERVISOR Ot F17.210 NICOTINE DEPENDENCE, CIGARETTES, UNCOMPL 03/24/2016 DRAGAN, MIKHAIL DATA CONTROL CLERK SUPERVISOR Ot I10 ESSENTIAL (PRIMARY) HYPERTENSION 03/24/2016 DRAGAN, MIKHAIL DATA CONTROL CLERK SUPERVISOR Ot L03.115 CELLULITIS OF RIGHT LOWER LIMB 03/24/2016 DRAGAN, MIKHAIL DATA CONTROL CLERK SUPERVISOR Ot M79.671 PAIN IN RIGHT FOOT 03/24/2016 DRAGAN, MIKHAIL DATA CONTROL CLERK SUPERVISOR Ot Z79.4 WATER PLUMBER (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 03/24/2016 DRAGAN, MIKHAIL DATA CONTROL CLERK SUPERVISOR Ot Z79.899 OTHER SHELTER (CURRENT) DRUG THERAPY 03/24/2016 DRAGAN, MIKHAIL DATA CONTROL CLERK SUPERVISOR Ot Z95.5 PRESENCE OF CORONARY ANGIOPLASTY IMPLANT 06/07/2016 Ot 414.9 CHR ISCHEMIC HRT DIS NOS 06/07/2016 Ot 786.50 CHEST PAIN NOS 06/07/2016 AMI MEZA MD Ot 717.5 DERANGEMENT MENISCUS NEC 06/07/2016 VINCE MEJIA MD (DDU) Ot V68.01 DISABILITY EXAMINATION 06/07/2016 VINCE MEJIA MD (DDU) Ot V82.89 SCREEN FOR OTH SPECIF CONDITIONS 06/07/2016 MARIA TERESA ROD MD (DDU) Ot V68.01 DISABILITY EXAMINATION 06/07/2016 MARIA TERESA ROD MD (DDU) Ot V82.89 SCREEN FOR OTH SPECIF CONDITIONS 06/24/2016 ERICA BOWMAN MD Ot E11.22 TYPE 2 DIABETES MELLITUS W DIABETIC AUTOMOBILE WASHER STEAM 06/24/2016 ERICA BOWMAN MD, Ot E66.9 OBESITY, UNSPECIFIED 06/24/2016 ERICA BOWMAN MD, Ot E78.5 HYPERLIPIDEMIA, UNSPECIFIED 06/24/2016 ERICA BOWMAN MD, Ot I12.9 HYPERTENSIVE CHRONIC KIDNEY DISEASE W ST 06/24/2016 ERICA BOWMAN MD, Ot I25.110 ATHSCL HEART DISEASE OF [place] [facility] ART W 06/24/2016 ERICA BOWMAN MD, Ot N18.9 CHRONIC KIDNEY DISEASE, UNSPECIFIED 06/24/2016 ERICA BOWMAN MD, Ot T82.855A STENOSIS OF CORONARY ARTERY STENT, INITI 06/24/2016 ERICA BOWMAN MD, Ot Z68.38 BODY MASS INDEX (BMI) 38.0-38.9, ADULT 06/24/2016 ERICA BOWMAN MD, Ot Z72.0 TOBACCO USE 06/24/2016 ERICA BOWMAN MD, Ot Z79.84 SHELTER (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 ORAL HYPOGLYC 06/24/2016 ERICA BOWMAN MD, Ot Z79.899 OTHER SHELTER (CURRENT) DRUG THERAPY Procedures Code Description Performed By Performed On 00.40 07/04/2009 00.45 07/04/2009 00.66 07/04/2009 36.07 07/04/2009 88.56 07/04/2009 56253 ROUTINE VENIPUNCTURE 03/23/2012 31087 A1C (IN-HOUSE) 60376 MICRO ALBUMIN-IN HOUSE 03/23/2012 17195 MICROALBUMIN 70890 CMP 03/23/2012 30533 LIPID PANEL 03/23 [id number] GFR CALC (RESULT ONLY) 03/23/2012 Cardiolog Rory Moreland 04/27/2012 35069 A1C (IN-HOUSE) 77056 ROUTINE VENIPUNCTURE 06/14/2013 25840 A1C (IN-HOUSE) 58765 MICRO ALBUMIN-IN HOUSE 06/14/2013 [id number] GFR CALC (RESULT ONLY) 06/14/2013 09487 CMP 06/14/2013 97256 LIPID PANEL 06/14 34438 MICROALBUMIN 24535 CMP 09/10/2013 86422 URIC ACID 2013 80022 [employer] 2013 69860 A1C (IN-HOUSE) 11322 JOINT INJECTION- LARGE JOINT (SPECIFY MEDCIN DESCRIPTION) 11/23/2013 76531 ROUTINE VENIPUNCTURE 02/11/2014 07125 [facility] 02/11/2014 81576 A1C (IN-HOUSE) Results Test Result Range Complete blood count (CBC) with automated white blood cell (WBC) differential - 01/02/16 15:35 Blood leukocytes automated count (number/volume) 17.2 10*3/ uL 4.3-11.0 Blood erythrocytes automated count (number/volume) 5.02 10*6 /uL 4.35-5.85 Venous blood hemoglobin measurement (mass/volume) 13.7 g/dL 13.3-17.7 Blood hematocrit (volume fraction) 40 % 40-54 Automated erythrocyte mean corpuscular volume 80 [foz_us] 80-99 Automated erythrocyte mean corpuscular hemoglobin (mass per erythrocyte) 27 pg 25-34 Automated erythrocyte mean corpuscular hemoglobin concentration measurement ( mass/volume) 34 g/dL 32-36 Automated erythrocyte distribution width ratio 14.9 % 10.0-14.5 Automated blood platelet count (count/volume) 308 10*3/uL 130-400 Automated blood platelet mean volume measurement 10.3 [foz_ us] 7.4-10.4 Automated blood neutrophils/100 leukocytes 87 % 42-75 Automated blood lymphocytes/100 leukocytes 8 % 12-44 Blood monocytes/100 leukocytes 4 % 0-12 Automated blood eosinophils/100 leukocytes 1 % 0-10 Automated blood basophils/100 leukocytes 0 % 0-10 Blood neutrophils automated count (number/volume) 15.0 10*3 1.8-7.8 Blood lymphocytes automated count (number/volume) 1.4 10*3 1.0-4.0 Blood monocytes automated count (number/volume) 0.6 10*3 0.0-1.0 Automated eosinophil count 0.2 10*3/uL 0.0-0.3 Automated blood basophil count (count/volume) 0.0 10*3/uL 0.0-0.1 Comprehensive metabolic panel - 01/02/16 15:35 Serum or plasma sodium measurement (moles/volume) 137 mmol/ L 135-145 Serum or plasma potassium measurement (moles/volume) 4.7 mmol/L 3.6-5.0 Serum or plasma chloride measurement (moles/volume) 107 mmol /L 98-107 Carbon dioxide 16 mmol/L 21-32 Serum or plasma anion gap determination (moles/volume) 14 mmol/L 5-14 Serum or plasma urea nitrogen measurement (mass/volume) 32 mg/dL 7-18 Serum or plasma creatinine measurement (mass/volume) 2.59 mg /dL 0.60-1.30 Serum or plasma urea nitrogen/creatinine mass ratio 12 NRG Serum or plasma creatinine measurement with calculation of estimated glomerular filtration rate 32 NRG Serum or plasma glucose measurement (mass/volume) 302 mg/dL 70-105 Serum or plasma calcium measurement (mass/volume) 9.4 mg/dL 8.5-10.1 Serum or plasma total bilirubin measurement (mass/volume) 0.3 mg/dL 0.1-1.0 Serum or plasma alkaline phosphatase measurement (enzymatic activity/volume) 89 U/L 40-136 Serum or plasma aspartate aminotransferase measurement (enzymatic activity/ volume) 17 U/L 5-34 Serum or plasma alanine aminotransferase measurement (enzymatic activity/volume ) 19 U/L 0-55 Serum or plasma protein measurement (mass/volume) 7.4 g/dL 6.4-8.2 Serum or plasma albumin measurement (mass/volume) 3.8 g/dL 3.2-4.5 Lipase - 01/02/16 15:35 Lipase 54 U/L 8-78 Blood manual differential performed detection - 01/02/16 15:35 Blood monocytes/100 leukocytes 2 % NRG Manual blood segmented neutrophils/100 leukocytes 79 % NRG Blood band neutrophils/100 leukocytes 0 % NRG Manual blood lymphocytes/100 leukocytes 15 % NRG Manual eosinophils/100 leukocytes in nose 1 % NRG Manual blood basophils/100 leukocytes 2 % NRG Blood erythrocyte morphology finding identification NORMAL NR Manual blood metamyelocytes/100 leukocytes 1 % NRG Urine drug screening test - 01/02/16 17:20 Urine phencyclidine detection by screening method NEGATIVE NEGATIVE Urine benzodiazepines detection by screening method NEGATIVE NEGATIVE Urine cocaine detection NEGATIVE NEGATIVE Urine amphetamines detection by screening method NEGATIVE NEGATIVE Urine methamphetamine detection by screening method NEGATIVE NEGATIVE Urine cannabinoids detection by screening method POSITIVE NEGATIVE Urine opiates detection by screening method NEGATIVE NEGATIVE Urine barbiturates detection NEGATIVE NEGATIVE Screening urine tricyclic antidepressants detection POSITIVE NEGATIVE Urine methadone detection by screening method NEGATIVE NEGATIVE Urine oxycodone detection NEGATIVE NEGATIVE Urine propoxyphene detection NEGATIVE NEGATIVE Urine buprenophrine screen NEGATIVE NEGATIVE Complete urinalysis with reflex to culture - 01/02/16 17:20 Urine color determination YELLOW NRG Urine clarity determination CLEAR NRG Urine pH measurement by test strip 5 5- 9 Specific gravity of urine by test strip 1.015 1.016-1.022 Urine protein assay by test strip, semi-quantitative 4+ NEGATIVE Urine glucose detection by automated test strip 2+ NEGATIVE Erythrocytes detection in urine sediment by light microscopy 3+ NEGATIVE Urine ketones detection by automated test strip NEGATIVE NEGATIVE Urine nitrite detection by test strip NEGATIVE NEGATIVE Urine total bilirubin detection by test strip NEGATIVE NEGATIVE Urine urobilinogen measurement by automated test strip (mass/volume) NORMAL NORMAL Urine leukocyte esterase detection by dipstick 1+ NEGATIVE Automated urine sediment erythrocyte count by microscopy (number/high power field) [HPF] NRG Automated urine sediment leukocyte count by microscopy (number/high power field ) [HPF] NRG Bacteria detection in urine sediment by light microscopy FEW NRG Squamous epithelial cells detection in urine sediment by light microscopy 0-2 NRG Crystals detection in urine sediment by light microscopy NONE NRG Casts detection in urine sediment by light microscopy NONE NRG Mucus detection in urine sediment by light microscopy NEGATIVE NRG Complete urinalysis with reflex to culture YES NRG Bacterial urine culture - 01/02/16 17:20 URINE CULTURE RESULTS <10,000/ML NRG Complete blood count (CBC) with automated white blood cell (WBC) differential - 02/22/16 15:42 Blood leukocytes automated count (number/volume) 11.3 10*3/ uL 4.3-11.0 Blood erythrocytes automated count (number/volume) 4.38 10*6 /uL 4.35-5.85 Venous blood hemoglobin measurement (mass/volume) 12.1 g/dL 13.3-17.7 Blood hematocrit (volume fraction) 36 % 40-54 Automated erythrocyte mean corpuscular volume 82 [foz_us] 80-99 Automated erythrocyte mean corpuscular hemoglobin (mass per erythrocyte) 28 pg 25-34 Automated erythrocyte mean corpuscular hemoglobin concentration measurement ( mass/volume) 34 g/dL 32-36 Automated erythrocyte distribution width ratio 15.8 % 10.0-14.5 Automated blood platelet count (count/volume) 229 10*3/uL 130-400 Automated blood platelet mean volume measurement 10.3 [foz_ us] 7.4-10.4 Automated blood neutrophils/100 leukocytes 74 % 42-75 Automated blood lymphocytes/100 leukocytes 18 % 12-44 Blood monocytes/100 leukocytes 6 % 0-12 Automated blood eosinophils/100 leukocytes 2 % 0-10 Automated blood basophils/100 leukocytes 0 % 0-10 Blood neutrophils automated count (number/volume) 8.4 10*3 1.8-7.8 Blood lymphocytes automated count (number/volume) 2.0 10*3 1.0-4.0 Blood monocytes automated count (number/volume) 0.6 10*3 0.0-1.0 Automated eosinophil count 0.2 10*3/uL 0.0-0.3 Automated blood basophil count (count/volume) 0.0 10*3/uL 0.0-0.1 Erythrocyte sedimentation rate by westergren method - 02/22/16 15:42 Erythrocyte sedimentation rate by westergren method 68 mm 0-15 Serum or plasma uric acid measurement (mass/volume) - 02/22/16 15:42 Serum or plasma uric acid measurement (mass/volume) 7.0 mg/ dL 2.6-7.2 Comprehensive metabolic panel - 02/22/16 15:42 Serum or plasma sodium measurement (moles/volume) 132 mmol/ L 135-145 Serum or plasma potassium measurement (moles/volume) 4.4 mmol/L 3.6-5.0 Serum or plasma chloride measurement (moles/volume) 101 mmol /L 98-107 Carbon dioxide 19 mmol/L 21-32 Serum or plasma anion gap determination (moles/volume) 12 mmol/L 5-14 Serum or plasma urea nitrogen measurement (mass/volume) 23 mg/dL 7-18 Serum or plasma creatinine measurement (mass/volume) 2.88 mg /dL 0.60-1.30 Serum or plasma urea nitrogen/creatinine mass ratio 8 NRG Serum or plasma creatinine measurement with calculation of estimated glomerular filtration rate 29 NRG Serum or plasma glucose measurement (mass/volume) 536 mg/dL 70-105 Serum or plasma calcium measurement (mass/volume) 8.7 mg/dL 8.5-10.1 Serum or plasma total bilirubin measurement (mass/volume) 0.2 mg/dL 0.1-1.0 Serum or plasma alkaline phosphatase measurement (enzymatic activity/volume) 90 U/L 40-136 Serum or plasma aspartate aminotransferase measurement (enzymatic activity/ volume) 13 U/L 5-34 Serum or plasma alanine aminotransferase measurement (enzymatic activity/volume ) 14 U/L 0-55 Serum or plasma protein measurement (mass/volume) 6.6 g/dL 6.4-8.2 Serum or plasma albumin measurement (mass/volume) 3.2 g/dL 3.2-4.5 Complete blood count (CBC) with automated white blood cell (WBC) differential - 03/12/16 17:06 Blood leukocytes automated count (number/volume) 16.0 10*3/ uL 4.3-11.0 Blood erythrocytes automated count (number/volume) 4.40 10*6 /uL 4.35-5.85 Venous blood hemoglobin measurement (mass/volume) 12.1 g/dL 13.3-17.7 Blood hematocrit (volume fraction) 36 % 40-54 Automated erythrocyte mean corpuscular volume 83 [foz_us] 80-99 Automated erythrocyte mean corpuscular hemoglobin (mass per erythrocyte) 28 pg 25-34 Automated erythrocyte mean corpuscular hemoglobin concentration measurement ( mass/volume) 33 g/dL 32-36 Automated erythrocyte distribution width ratio 16.1 % 10.0-14.5 Automated blood platelet count (count/volume) 249 10*3/uL 130-400 Automated blood platelet mean volume measurement 10.7 [foz_ us] 7.4-10.4 Automated blood neutrophils/100 leukocytes 81 % 42-75 Automated blood lymphocytes/100 leukocytes 13 % 12-44 Blood monocytes/100 leukocytes 5 % 0-12 Automated blood eosinophils/100 leukocytes 1 % 0-10 Automated blood basophils/100 leukocytes 0 % 0-10 Blood neutrophils automated count (number/volume) 12.9 10*3 1.8-7.8 Blood lymphocytes automated count (number/volume) 2.1 10*3 1.0-4.0 Blood monocytes automated count (number/volume) 0.8 10*3 0.0-1.0 Automated eosinophil count 0.1 10*3/uL 0.0-0.3 Automated blood basophil count (count/volume) 0.0 10*3/uL 0.0-0.1 Serum or plasma C reactive protein measurement (mass/volume) - 03/12/16 17:06 Serum or plasma C reactive protein measurement (mass/volume) 8.85 mg/dL 0.00-0.50 Blood manual differential performed detection - 03/12/16 17:06 Blood monocytes/100 leukocytes 1 % NRG Manual blood segmented neutrophils/100 leukocytes 77 % NRG Blood band neutrophils/100 leukocytes 0 % NRG Manual blood lymphocytes/100 leukocytes 20 % NRG Manual eosinophils/100 leukocytes in nose 0 % NRG Manual blood basophils/100 leukocytes 0 % NRG Blood lymphocytes variant/100 leukocytes 2 % NRG Blood erythrocyte morphology finding identification NORMAL NR Whole blood basic metabolic panel - 03/12/16 17:06 Serum or plasma sodium measurement (moles/volume) 139 mmol/ L 135-145 Serum or plasma potassium measurement (moles/volume) 4.1 mmol/L 3.6-5.0 Serum or plasma chloride measurement (moles/volume) 103 mmol /L 98-107 Carbon dioxide 25 mmol/L 21-32 Serum or plasma anion gap determination (moles/volume) 11 mmol/L 5-14 Serum or plasma urea nitrogen measurement (mass/volume) 22 mg/dL 7-18 Serum or plasma creatinine measurement (mass/volume) 2.29 mg /dL 0.60-1.30 Serum or plasma urea nitrogen/creatinine mass ratio 10 NRG Serum or plasma creatinine measurement with calculation of estimated glomerular filtration rate 37 NRG Serum or plasma glucose measurement (mass/volume) 150 mg/dL 70-105 Serum or plasma calcium measurement (mass/volume) 9.2 mg/dL 8.5-10.1 Complete blood count (CBC) with automated white blood cell (WBC) differential - 03/18/16 17:00 Blood leukocytes automated count (number/volume) 12.5 10*3/ uL 4.3-11.0 Blood erythrocytes automated count (number/volume) 4.72 10*6 /uL 4.35-5.85 Venous blood hemoglobin measurement (mass/volume) 13.1 g/dL 13.3-17.7 Blood hematocrit (volume fraction) 39 % 40-54 Automated erythrocyte mean corpuscular volume 83 [foz_us] 80-99 Automated erythrocyte mean corpuscular hemoglobin (mass per erythrocyte) 28 pg 25-34 Automated erythrocyte mean corpuscular hemoglobin concentration measurement ( mass/volume) 33 g/dL 32-36 Automated erythrocyte distribution width ratio 16.2 % 10.0-14.5 Automated blood platelet count (count/volume) 280 10*3/uL 130-400 Automated blood platelet mean volume measurement 9.4 [foz_us ] 7.4-10.4 Automated blood neutrophils/100 leukocytes 80 % 42-75 Automated blood lymphocytes/100 leukocytes 14 % 12-44 Blood monocytes/100 leukocytes 5 % 0-12 Automated blood eosinophils/100 leukocytes 2 % 0-10 Automated blood basophils/100 leukocytes 0 % 0-10 Blood neutrophils automated count (number/volume) 9.9 10*3 1.8-7.8 Blood lymphocytes automated count (number/volume) 1.7 10*3 1.0-4.0 Blood monocytes automated count (number/volume) 0.6 10*3 0.0-1.0 Automated eosinophil count 0.2 10*3/uL 0.0-0.3 Automated blood basophil count (count/volume) 0.0 10*3/uL 0.0-0.1 Comprehensive metabolic panel - 03/18/16 17:00 Serum or plasma sodium measurement (moles/volume) 140 mmol/ L 135-145 Serum or plasma potassium measurement (moles/volume) 4.4 mmol/L 3.6-5.0 Serum or plasma chloride measurement (moles/volume) 104 mmol /L 98-107 Carbon dioxide 25 mmol/L 21-32 Serum or plasma anion gap determination (moles/volume) 11 mmol/L 5-14 Serum or plasma urea nitrogen measurement (mass/volume) 21 mg/dL 7-18 Serum or plasma creatinine measurement (mass/volume) 2.29 mg /dL 0.60-1.30 Serum or plasma urea nitrogen/creatinine mass ratio 9 NRG Serum or plasma creatinine measurement with calculation of estimated glomerular filtration rate 37 NRG Serum or plasma glucose measurement (mass/volume) 136 mg/dL 70-105 Serum or plasma calcium measurement (mass/volume) 9.3 mg/dL 8.5-10.1 Serum or plasma total bilirubin measurement (mass/volume) 0.2 mg/dL 0.1-1.0 Serum or plasma alkaline phosphatase measurement (enzymatic activity/volume) 77 U/L 40-136 Serum or plasma aspartate aminotransferase measurement (enzymatic activity/ volume) 18 U/L 5-34 Serum or plasma alanine aminotransferase measurement (enzymatic activity/volume ) 17 U/L 0-55 Serum or plasma protein measurement (mass/volume) 6.7 g/dL 6.4-8.2 Serum or plasma albumin measurement (mass/volume) 3.3 g/dL 3.2-4.5 Complete urinalysis with reflex to culture - 04/04/16 00:37 Urine color determination YELLOW NRG Urine clarity determination VERY CLOUDY NRG Urine pH measurement by test strip 7 5- 9 Specific gravity of urine by test strip 1.010 1.016-1.022 Urine protein assay by test strip, semi-quantitative 4+ NEGATIVE Urine glucose detection by automated test strip NEGATIVE NEGATIVE Erythrocytes detection in urine sediment by light microscopy 3+ NEGATIVE Urine ketones detection by automated test strip 1+ NEGATIVE Urine nitrite detection by test strip NEGATIVE NEGATIVE Urine total bilirubin detection by test strip NEGATIVE NEGATIVE Urine urobilinogen measurement by automated test strip (mass/volume) NORMAL NORMAL Urine leukocyte esterase detection by dipstick 2+ NEGATIVE Automated urine sediment erythrocyte count by microscopy (number/high power field) [HPF] NRG Automated urine sediment leukocyte count by microscopy (number/high power field ) > [HPF] NRG Bacteria detection in urine sediment by light microscopy TRACE NRG Squamous epithelial cells detection in urine sediment by light microscopy RARE NRG Crystals detection in urine sediment by light microscopy NONE NRG Casts detection in urine sediment by light microscopy NONE NRG Mucus detection in urine sediment by light microscopy NEGATIVE NRG Complete urinalysis with reflex to culture YES NRG Urine Trichomonas species detection by light microscopy FEW NRG Other elements identification in urine sediment by light microscopy FEW SPERM NRG Bacterial urine culture - 04/04/16 00:37 URINE CULTURE RESULTS <10,000/ML NRG Complete blood count (CBC) with automated white blood cell (WBC) differential - 04/04/16 22:40 Blood leukocytes automated count (number/volume) 14.3 10*3/ uL 4.3-11.0 Blood erythrocytes automated count (number/volume) 4.67 10*6 /uL 4.35-5.85 Venous blood hemoglobin measurement (mass/volume) 12.9 g/dL 13.3-17.7 Blood hematocrit (volume fraction) 38 % 40-54 Automated erythrocyte mean corpuscular volume 82 [foz_us] 80-99 Automated erythrocyte mean corpuscular hemoglobin (mass per erythrocyte) 28 pg 25-34 Automated erythrocyte mean corpuscular hemoglobin concentration measurement ( mass/volume) 34 g/dL 32-36 Automated erythrocyte distribution width ratio 16.5 % 10.0-14.5 Automated blood platelet count (count/volume) 312 10*3/uL 130-400 Automated blood platelet mean volume measurement 9.6 [foz_us ] 7.4-10.4 Automated blood neutrophils/100 leukocytes 77 % 42-75 Automated blood lymphocytes/100 leukocytes 17 % 12-44 Blood monocytes/100 leukocytes 5 % 0-12 Automated blood eosinophils/100 leukocytes 1 % 0-10 Automated blood basophils/100 leukocytes 0 % 0-10 Blood neutrophils automated count (number/volume) 11.0 10*3 1.8-7.8 Blood lymphocytes automated count (number/volume) 2.5 10*3 1.0-4.0 Blood monocytes automated count (number/volume) 0.6 10*3 0.0-1.0 Automated eosinophil count 0.2 10*3/uL 0.0-0.3 Automated blood basophil count (count/volume) 0.1 10*3/uL 0.0-0.1 Blood manual differential performed detection - 04/04/16 22:40 Blood monocytes/100 leukocytes 5 % NR Manual blood segmented neutrophils/100 leukocytes 79 % NRG Blood band neutrophils/100 leukocytes 17 % NRG Manual blood lymphocytes/100 leukocytes 2 % NRG Manual eosinophils/100 leukocytes in nose 0 % NRG Manual blood basophils/100 leukocytes 0 % NRG Blood erythrocyte morphology finding identification NORMAL [facility] Comprehensive metabolic panel - 04/04/16 22:40 Serum or plasma sodium measurement (moles/volume) 140 mmol/ L 135-145 Serum or plasma potassium measurement (moles/volume) 4.0 mmol/L 3.6-5.0 Serum or plasma chloride measurement (moles/volume) 100 mmol /L 98-107 Carbon dioxide 25 mmol/L 21-32 Serum or plasma anion gap determination (moles/volume) 15 mmol/L 5-14 Serum or plasma urea nitrogen measurement (mass/volume) 18 mg/dL 7-18 Serum or plasma creatinine measurement (mass/volume) 2.71 mg /dL 0.60-1.30 Serum or plasma urea nitrogen/creatinine mass ratio 7 NRG Serum or plasma creatinine measurement with calculation of estimated glomerular filtration rate 31 NRG Serum or plasma glucose measurement (mass/volume) 100 mg/dL 70-105 Serum or plasma calcium measurement (mass/volume) 9.6 mg/dL 8.5-10.1 Serum or plasma total bilirubin measurement (mass/volume) 0.4 mg/dL 0.1-1.0 Serum or plasma alkaline phosphatase measurement (enzymatic activity/volume) 85 U/L 40-136 Serum or plasma aspartate aminotransferase measurement (enzymatic activity/ volume) 15 U/L 5-34 Serum or plasma alanine aminotransferase measurement (enzymatic activity/volume ) 12 U/L 0-55 Serum or plasma protein measurement (mass/volume) 7.2 g/dL 6.4-8.2 Serum or plasma albumin measurement (mass/volume) 3.5 g/dL 3.2-4.5 Serum or plasma uric acid measurement (mass/volume) - 04/04/16 22:40 Serum or plasma uric acid measurement (mass/volume) 8.3 mg/ dL 2.6-7.2 Magnesium - 04/04/16 22:40 Magnesium 1.7 mg/dL 1.8-2.4 Serum or plasma amylase measurement (enzymatic activity/volume) - 04/04/16 22: 40 Serum or plasma amylase measurement (enzymatic activity/volume) 142 U/L 25-125 Lipase - 04/04/16 22:40 Lipase 15 U/L 8-78 Serum or plasma C reactive protein measurement (mass/volume) - 04/04/16 22:40 Serum or plasma C reactive protein measurement (mass/volume) 3.15 mg/dL 0.00-0.50 Erythrocyte sedimentation rate by westergren method - 04/04/16 22:40 Erythrocyte sedimentation rate by westergren method 90 mm 0-15 Blood lactic acid measurement (moles/volume) - 04/04/16 22:50 Blood lactic acid measurement (moles/volume) 1.7 mmol/L 0.5-2.0 Bacterial blood culture - 04/04/16 22:50 Bacterial blood culture [facility] [place] Bacterial blood culture - 04/04/16 22:50 Bacterial blood culture [facility] [place] Complete blood count (CBC) with automated white blood cell (WBC) differential - 06/04/16 09:38 Blood leukocytes automated count (number/volume) 12.7 10*3/ uL 4.3-11.0 Blood erythrocytes automated count (number/volume) 4.31 10*6 /uL 4.35-5.85 Venous blood hemoglobin measurement (mass/volume) 12.1 g/dL 13.3-17.7 Blood hematocrit (volume fraction) 37 % 40-54 Automated erythrocyte mean corpuscular volume 85 [foz_us] 80-99 Automated erythrocyte mean corpuscular hemoglobin (mass per erythrocyte) 28 pg 25-34 Automated erythrocyte mean corpuscular hemoglobin concentration measurement ( mass/volume) 33 g/dL 32-36 Automated erythrocyte distribution width ratio 16.1 % 10.0-14.5 Automated blood platelet count (count/volume) 253 10*3/uL 130-400 Automated blood platelet mean volume measurement 10.1 [foz_ us] 7.4-10.4 Automated blood neutrophils/100 leukocytes 75 % 42-75 Automated blood lymphocytes/100 leukocytes 16 % 12-44 Blood monocytes/100 leukocytes 5 % 0-12 Automated blood eosinophils/100 leukocytes 4 % 0-10 Automated blood basophils/100 leukocytes 0 % 0-10 Blood neutrophils automated count (number/volume) 9.5 10*3 1.8-7.8 Blood lymphocytes automated count (number/volume) 2.0 10*3 1.0-4.0 Blood monocytes automated count (number/volume) 0.7 10*3 0.0-1.0 Automated eosinophil count 0.5 10*3/uL 0.0-0.3 Automated blood basophil count (count/volume) 0.0 10*3/uL 0.0-0.1 Comprehensive metabolic panel - 06/04/16 10:09 Serum or plasma sodium measurement (moles/volume) 138 mmol/ L 135-145 Serum or plasma potassium measurement (moles/volume) 4.6 mmol/L 3.6-5.0 Serum or plasma chloride measurement (moles/volume) 102 mmol /L 98-107 Carbon dioxide 25 mmol/L 21-32 Serum or plasma anion gap determination (moles/volume) 11 mmol/L 5-14 Serum or plasma urea nitrogen measurement (mass/volume) 21 mg/dL 7-18 Serum or plasma creatinine measurement (mass/volume) 2.34 mg /dL 0.60-1.30 Serum or plasma urea nitrogen/creatinine mass ratio 9 NRG Serum or plasma creatinine measurement with calculation of estimated glomerular filtration rate 36 NRG Serum or plasma glucose measurement (mass/volume) 305 mg/dL 70-105 Serum or plasma calcium measurement (mass/volume) 9.0 mg/dL 8.5-10.1 Serum or plasma total bilirubin measurement (mass/volume) 0.3 mg/dL 0.1-1.0 Serum or plasma alkaline phosphatase measurement (enzymatic activity/volume) 81 U/L 40-136 Serum or plasma aspartate aminotransferase measurement (enzymatic activity/ volume) 17 U/L 5-34 Serum or plasma alanine aminotransferase measurement (enzymatic activity/volume ) 15 U/L 0-55 Serum or plasma protein measurement (mass/volume) 6.6 g/dL 6.4-8.2 Serum or plasma albumin measurement (mass/volume) 3.2 g/dL 3.2-4.5 Serum or plasma troponin i.cardiac measurement (mass/volume) - 06/04/16 10:09 Serum or plasma troponin i.cardiac measurement (mass/volume) < ng/mL <0.30 PT panel in platelet poor plasma by coagulation assay - 06/04/16 12:15 Prothrombin time (PT) in platelet poor plasma by coagulation assay 13.6 s 12.2-14.7 INR in platelet poor plasma or blood by coagulation assay 1.1 0.8-1.4 Activated partial thromboplastin time (aPTT) in platelet poor plasma bycoagulation assay - 06/04/16 12:15 Activated partial thromboplastin time (aPTT) in platelet poor plasma bycoagulation assay 32 s 24-35 Serum or plasma troponin i.cardiac measurement (mass/volume) - 06/04/16 15:45 Serum or plasma troponin i.cardiac measurement (mass/volume) < ng/mL <0.30 Capillary blood glucose measurement by glucometer (mass/volume) - 06/04/16 17: 53 Capillary blood glucose measurement by glucometer (mass/volume) 144 mg/dL 70-110 Whole blood basic metabolic panel - 06/04/16 20:40 Serum or plasma sodium measurement (moles/volume) 142 mmol/ L 135-145 Serum or plasma potassium measurement (moles/volume) 3.7 mmol/L 3.6-5.0 Serum or plasma chloride measurement (moles/volume) 105 mmol /L 98-107 Carbon dioxide 26 mmol/L 21-32 Serum or plasma anion gap determination (moles/volume) 11 mmol/L 5-14 Serum or plasma urea nitrogen measurement (mass/volume) 20 mg/dL 7-18 Serum or plasma creatinine measurement (mass/volume) 2.27 mg /dL 0.60-1.30 Serum or plasma urea nitrogen/creatinine mass ratio 9 NRG Serum or plasma creatinine measurement with calculation of estimated glomerular filtration rate 38 NRG Serum or plasma glucose measurement (mass/volume) 135 mg/dL 70-105 Serum or plasma calcium measurement (mass/volume) 8.8 mg/dL 8.5-10.1 Magnesium - 06/04/16 20:40 Magnesium 1.5 mg/dL 1.8-2.4 Automated blood complete blood count (hemogram) panel - 06/05/16 03:30 Blood leukocytes automated count (number/volume) 14.4 10*3/ uL 4.3-11.0 Blood erythrocytes automated count (number/volume) 3.97 10*6 /uL 4.35-5.85 Venous blood hemoglobin measurement (mass/volume) 10.9 g/dL 13.3-17.7 Blood hematocrit (volume fraction) 33 % 40-54 Automated erythrocyte mean corpuscular volume 83 [foz_us] 80-99 Automated erythrocyte mean corpuscular hemoglobin (mass per erythrocyte) 28 pg 25-34 Automated erythrocyte mean corpuscular hemoglobin concentration measurement ( mass/volume) 33 g/dL 32-36 Automated erythrocyte distribution width ratio 15.9 % 10.0-14.5 Automated blood platelet count (count/volume) 273 10*3/uL 130-400 Automated blood platelet mean volume measurement 9.5 [foz_us ] 7.4-10.4 Whole blood basic metabolic panel - 06/05/16 03:30 Serum or plasma sodium measurement (moles/volume) 141 mmol/ L 135-145 Serum or plasma potassium measurement (moles/volume) 3.7 mmol/L 3.6-5.0 Serum or plasma chloride measurement (moles/volume) 107 mmol /L 98-107 Carbon dioxide 22 mmol/L 21-32 Serum or plasma anion gap determination (moles/volume) 12 mmol/L 5-14 Serum or plasma urea nitrogen measurement (mass/volume) 20 mg/dL 7-18 Serum or plasma creatinine measurement (mass/volume) 2.21 mg /dL 0.60-1.30 Serum or plasma urea nitrogen/creatinine mass ratio 9 NRG Serum or plasma creatinine measurement with calculation of estimated glomerular filtration rate 39 NRG Serum or plasma glucose measurement (mass/volume) 126 mg/dL 70-105 Serum or plasma calcium measurement (mass/volume) 8.5 mg/dL 8.5-10.1 Serum or plasma troponin i.cardiac measurement (mass/volume) - 06/05/16 03:30 Serum or plasma troponin i.cardiac measurement (mass/volume) < ng/mL <0.30 Lipid 1996 panel - 06/05/16 03:30 Serum or plasma triglyceride measurement (mass/volume) 382 mg/dL <150 Serum or plasma cholesterol measurement (mass/volume) 155 mg /dL < 200 Serum or plasma cholesterol in HDL measurement (mass/volume) 23 mg/dL 40-60 Cholesterol in LDL [mass/volume] in serum or plasma by direct assay 54 mg/dL 1-129 Serum or plasma cholesterol in VLDL measurement (mass/volume) 76 mg/dL 5-40 Encounters ACCT No. Visit Date/Time Discharge Status Pt. Type Provider Facility Loc./Unit Complaint [id number] 02/11/2014 11:53:00 02/11/2014 23: 59:59 CLS Outpatient [facility] [id number] 12/20/2013 00:00:00 12/20/2013 23: 59:59 CLS Outpatient [facility]MA[facility] K [id number] 11/23/2013 11:17:00 11/23/2013 23: 59:59 CLS Outpatient [facility] [id number] 10/12/2013 13:36:00 10/12/2013 23: 59:59 CLS Outpatient [facility] DO [facility]MA[facility] K [id number] 09/10/2013 08:26:00 09/10/2013 23: 59:59 CLS Outpatient [facility] [id number] 06/14/2013 11:34:00 06/14/2013 23: 59:59 CLS Outpatient [facility] [id number] 06/11/2013 16:49:00 06/11/2013 23: 59:59 CLS Outpatient [facility] [id number] 05/08/2013 16:16:00 05/08/2013 23: 59:59 CLS Outpatient [facility] [id number] 09/06/2012 10:39:00 09/06/2012 23: 59:59 CLS Outpatient [facility] [id number] 04/12/2012 12:53:00 04/12/2012 23: 59:59 CLS Outpatient SARI MOJICA MD [id number] 03/23/2012 09:53:00 03/23/2012 23: 59:59 CLS Outpatient CHARMAINE MERRILL DO [id number] 01/11/2012 14:51:00 01/11/2012 23: 59:59 CLS Outpatient [id number] 07/08/2011 13:35:00 07/08/2011 23:59 :59 CLS Outpatient SANA DEE DDS
--- OUTSIDE RECORDS SUMMARY | 2016-07-08 21:10 | XMS REPORT ---
Author Author CHAPARRO MUJICA [facility] eClinicalWorks Address Unknown Phone Unavailable Care Team Providers Care Senior Economist Name Role Phone CHAPARRO MUJICA CP Unavailable Allergies, Adverse Reactions, Alerts Substance Reaction Event Type Acetaminophen-Codeine #3 Failed Ameritox UDS- THC Drug Allergy Problems Problem Type Condition Code Onset Dates Condition Status Assessment Diabetes E11.9 Active Assessment Right foot pain M79.671 Active Assessment Insomnia, unspecified type G47.00 Active Problem Gout, unspecified M10.9 Active Problem Gastroesophageal reflux disease, esophagitis presence not specified K21.9 Active Problem Diabetes E11.9 Active Problem Coronary atherosclerosis of unspecified type of vessel, [place] or graft I25.10 Active Problem Encounter for long-term (current) use of other medications V58.69 Active Problem Proteinuria R80.9 Active Problem Insomnia, unspecified G47.00 Active Medications Medication Code System Code Instructions Start Date End Date Status Dosage Actos [facility] [address]-13 15 mg Feb 14, 2014 take 1 tablet (15 mg) by oral route once daily Seroquel [facility] [address]-38 50 MG Once a day Feb 11, 2014 3 tablet by Oral route 1 time per day at bedtime HydrOXYzine HCl [facility] [address]-00 50 mg Feb 11, 2014 1 tablet by Oral route 4 times per day PRN for anxiety GlipiZIDE [facility] [address]-91 10 MG 2 times a day Feb 11, 2014 2 tablet by Oral route 2 times per day Indomethacin [facility] [address]-16 50 mg Feb 11, 2014 1 capsule by Oral route 3 times per day Levemir [facility] [address]-52 100 units/mL May 16, 2014 inject 100 units by Subcutaneous route 2 times per day PredniSONE [facility] [address]-56 20 MG Orally Once a day Jan 22, 2015 Jan 27, 2015 1 tablet with food or milk Lisinopril [facility] [address]-62 5 mg Feb 11, 2014 1 tablet by Oral route 1 time per day Lipitor [facility] [address]-52 10 mg 1 TAB orally once a day Feb 11, 2014 1 tablet by Oral route 1 time per day Allopurinol [facility] [address]-12 300 mg Feb 11, 2014 1 tablet by Oral route 1 time per day Ranitidine HCl [facility] [address]-46 150 mg May 13, 2014 1 tablet by Oral route every [address] [facility] [address]-21 200-40 MG/5ML Orally 2 times a day 7.5 ml metformin ND 0 500 mg Feb 11, 2014 take 2 tablet by Oral route 2 times per day with the evening meal Procedures Procedure Coding System Code Date Office Visit, Est Pt., Level 3 CPT-4 58383 Jan 22, 2015 GLYCATED HEMOGLOBIN TEST CPT-4 96223 Jan 22, 2015 Vital Signs Date/Time: Jan 22, 2015 Temperature 98.1 F Weight 292.8 lbs Height 73 in BMI 38.63 Index Blood Pressure Diastolic 86 mmHg Blood Pressure Systolic 126 mmHg Cardiac Monitoring Heart Rate 104 bpm Results Name Result Date Reference Range Unit Abnormality Flag A1C (IN HOUSE) ----A1C IN HOUSE 10.1 20150122 4.30 - 5.6 % ----Previous A1c 12.3 20150122 ----Lot # [id number] ----Exp date 20150122 Summary Purpose eClinicalWorks Submission
--- OUTSIDE RECORDS SUMMARY | 2016-07-08 21:11 | XMS REPORT ---
Author Author CHAPARRO MUJICA Organization eClinicalWorks Address Unknown Phone Unavailable Care Team Providers Care Department Of Natural Resources Officer Name Role Phone CHAPARRO MUJICA CP Unavailable Allergies No Known Allergies Problems Problem Type Condition Code Onset Dates Condition Status Problem Gout, unspecified M10.9 Active Problem Gastroesophageal reflux disease, esophagitis presence not specified K21.9 Active Problem Diabetes E11.9 Active Problem Coronary atherosclerosis of unspecified type of vessel, [place] or graft I25.10 Active Problem Encounter for long-term (current) use of other medications V58.69 Active Problem Proteinuria R80.9 Active Problem Insomnia, unspecified G47.00 Active Medications No Known Medications Results No Known Results Summary Purpose eClinicalWorks Submission
--- OUTSIDE RECORDS SUMMARY | 2016-07-08 21:11 | XMS REPORT ---
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 781552684 Problem Leukocytosis, unspecified type D72.829 Active 033006573 Problem Chronic renal failure, stage 3 (moderate) N18.3 Active 21941430 Problem Type 2 diabetes mellitus with hyperglycemia E11.65 Active 450942341826120 Problem group home 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 Active 693622067 Problem Encounter for long-term (current) use of other medications V58.69 Active 468511064 Problem Coronary atherosclerosis of unspecified type of vessel, [place] or graft I25.10 Active 863208125 Problem Insomnia, unspecified G47.00 Active 763726392 Assessment Type 2 diabetes mellitus with hyperglycemia E11.65 Jan, Active 836328198125960 Problem Proteinuria R80.9 Active 05335575 ALLERGIES Unknown Allergies SOCIAL HISTORY No smoking Hx information available PLAN OF CARE VITAL SIGNS MEDICATIONS Medication Instructions Dosage Frequency Start Date End Date Duration Status Levemir FlexTouch 100 UNIT/ML Subcutaneous 2 times a day Inject 25 units 12h Jan, 160 days Active Toprol XL 50 mg TAKE ONE TABLET BY MOUTH ONCE DAILY 90 days Active Seroquel 50 mg Orally Once a day 3 Tablets 24h Jan, 30 days Active Trulicity 0.75 MG/0.5ML Inject 0.5 ml Jan, 160 days Active Levemir 100 UNIT/ML Subcutaneous 2 times a day inject 25 units 12h 19 Apr, 2014 Active PredniSONE 20 mg Orally Once a day 3 now, 2 qd3 d, 1qd 3d 24h Dec, Active NovoLog 100 UNIT/ML 30 units with meal, 10 units with snack Dec, Active Tizanidine HCl 2 MG TAKE ONE TABLET BY MOUTH THREE TIMES DAILY Active Atorvastatin Calcium 10 mg TAKE ONE TABLET BY MOUTH DAILY 90 days Active Allopurinol 300 MG TAKE ONE TABLET BY MOUTH DAILY 90 Active Hydrocodone-Acetaminophen 7.5-325 MG Orally every 4 hrs 1 tablet as needed 4h Dec, Active Omeprazole 40 mg Orally Once a day 1 capsule 24h May, 30 days Active Glucometer as directed Dec, Active PredniSONE 10 mg Orally Once a day 4 tablets daily X 4 days, 3 tabs daily X 3 days, 2 tabs daily X 3 days stop 24h Dec, Active RESULTS No Results PROCEDURES No Known procedures IMMUNIZATIONS No Known Immunizations
--- OUTSIDE RECORDS SUMMARY | 2016-07-08 21:11 | XMS REPORT ---
Author Author CHAPARRO MUJICA Organization eClinicalWorks Address Unknown Phone Unavailable Care Team Providers Care Account Executive Sales Representative Name Role Phone CHAPARRO MUJICA CP Unavailable Allergies No Known Allergies Problems Problem Type Condition Code Onset Dates Condition Status Problem Gout, unspecified M10.9 Active Problem Gastroesophageal reflux disease, esophagitis presence not specified K21.9 Active Problem Diabetes E11.9 Active Problem Coronary atherosclerosis of unspecified type of vessel, [place] or graft I25.10 Active Problem Encounter for long-term (current) use of other medications V58.69 Active Problem Proteinuria R80.9 Active Problem Insomnia, unspecified G47.00 Active Medications Medication Code System Code Instructions Start Date End Date Status Dosage GlipiZIDE [facility] [address]-21 10 mg Once a day at HS Feb 11, 2014 0 .5 tablet by Oral route 2 times per day Omeprazole [facility] [address]-18 40 MG Orally Once a day June 28, 2015 1 capsule Levemir [facility] [address]-58 100 units/mL May 16, 2014 inject 100 units by Subcutaneous route 2 times per day Tizanidine HCl [facility] 91594890913 2 MG TAKE ONE TABLET BY MOUTH THREE TIMES DAILY MetFORMIN HCl ER (OSM) [facility] 82808609212 1000 MG TAKE ONE TABLET BY MOUTH TWICE DAILY Amitriptyline HCl [facility] [address]-75 50 mg Orally Once a day at HS 2 tablet Toprol XL [facility] [address]-17 50 mg Orally Once a day at HS 1 tablet Allopurinol [facility] [address]-35 300 mg Feb 11, 2014 1 tablet by Oral route 1 time per day HydrOXYzine HCl [facility] 75568288881 50 MG TAKE ONE TABLET BY MOUTH FOUR TIMES DAILY NEEDED Lisinopril [facility] [address]-37 20 MG Orally Feb 11, 2014 1 tablet by Oral route 1 time per day Results No Known Results Summary Purpose eClinicalWorks Submission
--- OUTSIDE RECORDS SUMMARY | 2016-07-08 21:11 | XMS REPORT ---
Author Author CHAPARRO MUJICA Organization eClinicalWorks Address Unknown Phone Unavailable Care Team Providers Care Oracle Brm Developer Name Role Phone CHAPARRO MUJICA CP Unavailable Allergies No Known Allergies Problems Problem Type Condition Code Onset Dates Condition Status Problem Gout, unspecified M10.9 Active Problem Gastroesophageal reflux disease, esophagitis presence not specified K21.9 Active Problem Diabetes E11.9 Active Problem Coronary atherosclerosis of unspecified type of vessel, [place] or graft I25.10 Active Problem Encounter for long-term (current) use of other medications V58.69 Active Problem Proteinuria R80.9 Active Problem Insomnia, unspecified G47.00 Active Medications Medication Code System Code Instructions Start Date End Date Status Dosage [facility] [address]-89 15 MG Feb 14, 2014 take 1 tablet (15 mg) by oral route once daily Results No Known Results Summary Purpose eClinicalWorks Submission
--- OUTSIDE RECORDS SUMMARY | 2016-07-08 21:11 | XMS REPORT ---
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 Problem Type 2 diabetes mellitus with hyperglycemia E11.65 Active Problem Chronic kidney disease, stage 3 N18.3 Active Problem Chronic renal failure, stage 3 (moderate) N18.3 Active Problem Diabetes E11.9 Active Problem long-term 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 Active Problem Leukocytosis, unspecified type D72.829 Active Problem Encounter for long-term (current) use of other medications V58.69 Active Problem Coronary atherosclerosis of unspecified type of vessel, [place] or graft I25.10 Active Problem Insomnia, unspecified G47.00 Active Medications No Known Medications Results No Known Results Summary Purpose eClinicalWorks Submission
--- OUTSIDE RECORDS SUMMARY | 2016-07-08 21:12 | XMS REPORT ---
Author Author CHAPARRO MUJICA [facility] eClinicalWorks Address Unknown Phone Unavailable Care Team Providers Care Brine Tank Operator Name Role Phone CHAPARRO MUJICA CP Unavailable Allergies No Known Allergies Problems Problem Type Condition Code Onset Dates Condition Status Problem Proteinuria 791.0 Active Problem Esophageal reflux 530.81 Active Problem Pain in joint, shoulder region 719.41 Active Problem Gout, unspecified 274.9 Active Problem Headache 784.0 Active Problem Unspecified conjunctivitis 372.30 Active Problem Sprain and strain of unspecified site of shoulder and upper arm 840.9 Active Problem Rotator cuff (capsule) sprain and strain 840.4 Active Problem Personal history of noncompliance with medical treatment, presenting hazards to health V15.81 Active Problem Pain in joint, lower leg 719.46 Active Problem Encounter for long-term (current) use of other medications V58.69 Active Problem Coronary atherosclerosis of unspecified type of vessel, [place] or graft 414.00 Active Problem Insomnia, unspecified 780.52 Active Medications No Known Medications Results No Known Results Summary Purpose eClinicalWorks Submission
--- OUTSIDE RECORDS SUMMARY | 2016-07-08 21:12 | XMS REPORT ---
Author Author KAYA BLOOD [facility] Address [address] 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 095750172 Problem Leukocytosis, unspecified type D72.829 Active 745671164 Problem Chronic renal failure, stage 3 (moderate) N18.3 Active 87638762 Problem Type 2 diabetes mellitus with hyperglycemia E11.65 Active 162572942798170 Problem intermediate designer 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 Active 930334789 Problem Encounter for long-term (current) use of other medications V58.69 Active 941317409 Problem Coronary atherosclerosis of unspecified type of vessel, [place] or graft I25.10 Active 756733585 Problem Insomnia, unspecified G47.00 Active 760650883 Assessment Chronic kidney disease, stage 3 N18.3 Dec, Active 158665917 Problem Proteinuria R80.9 Active 19089954 ALLERGIES Substance Reaction Event Type Date Status Acetaminophen-Codeine #3 Failed [facility]itox UDS- THC Drug Allergy Dec, Active SOCIAL HISTORY No smoking Hx information available PLAN OF CARE VITAL SIGNS Height 73 in 2016-01-07 Weight 282 lbs 2016-01-07 Heart Rate 84 bpm 2016-01-07 Respiratory Rate 22 2016-01-07 BMI 37.20 kg/m2 2016-01-07 Blood pressure systolic 120 mmHg 2016-01-07 Blood pressure diastolic 80 mmHg 2016-01-07 MEDICATIONS Medication Instructions Dosage Frequency Start Date End Date Duration Status Seroquel 50 mg Orally Once a day 3 Tablets 24h Jan, 30 days Active Atorvastatin Calcium 10 mg TAKE ONE TABLET BY MOUTH DAILY 90 days Active Allopurinol 300 MG TAKE ONE TABLET BY MOUTH DAILY 90 Active NovoLog 100 UNIT/ML 30 units with meal, 10 units with snack Dec, Active Omeprazole 40 mg Orally Once a day 1 capsule 24h May, 30 days Active Toprol XL 50 mg TAKE ONE TABLET BY MOUTH ONCE DAILY 90 days Active Trulicity 0.75 MG/0.5ML Subcutaneous once weekly 0.5 ml Jul, Active Tizanidine HCl 2 MG TAKE ONE TABLET BY MOUTH THREE TIMES DAILY Active Hydrocodone-Acetaminophen 7.5-325 MG Orally every 6 hrs 1 tablet as needed 6h Active Glucometer as directed Dec, Active Levemir 100 UNIT/ML Subcutaneous 2 times a day inject 25 units 12h Apr, Active RESULTS No Results PROCEDURES Procedure Date Ordered Related Diagnosis Body Site COMPREHEN METABOLIC PANEL Jan 07, 2016 ASSAY OF PHOSPHORUS Jan 07, 2016 MANUAL CELL COUNT, EACH Jan 07, 2016 ASSAY OF BLOOD/URIC ACID Jan 07, 2016 VENIPUNCT, ROUTINE* Jan 07, 2016 Office Visit, Est Pt., Level 4 Jan 07, 2016 IMMUNIZATIONS No Known Immunizations
--- OUTSIDE RECORDS SUMMARY | 2016-07-08 21:12 | XMS REPORT ---
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 Active Problem Encounter for long-term (current) use of other medications V58.69 Active Problem Coronary atherosclerosis of unspecified type of vessel, [place] or graft I25.10 Active Assessment Diabetes E11.9 Active Problem Insomnia, unspecified G47.00 Active Medications Medication Code System Code Instructions Start Date End Date Status Dosage Toprol XL [facility] [address]-40 50 mg TAKE ONE TABLET BY MOUTH ONCE DAILY Atorvastatin Calcium [facility] [address]-76 10 mg TAKE ONE TABLET BY MOUTH DAILY Levemir [facility] [address]-14 100 UNIT/ML Subcutaneous 2 times a day May 16, 2014 inject 25 units NovoLog [facility] [address]-71 100 UNIT/ML Subcutaneous Jan 03, 2016 30 units with meal, 10 units with snack Omeprazole [facility] [address]-76 40 mg Orally Once a day June 28, 2015 1 capsule Trulicity [facility] [address]-72 0.75 MG/0.5ML Subcutaneous once weekly July 0.5 ml Tizanidine HCl [facility] 49249370066 2 MG TAKE ONE TABLET BY MOUTH THREE TIMES DAILY Hydrocodone-Acetaminophen [facility] [address]-15 7.5-325 MG Orally every 4 hrs Jan 12, 2016 1 tablet as needed PredniSONE [facility] [address]-06 20 mg Orally Once a day Jan 12, 2016 3 now, 2 qd3 d, 1qd 3d Glucometer [facility] 0 Jan 03, 2016 as directed Seroquel [facility] [address]-52 50 mg Orally Once a day Feb 11, 2014 3 Tablets Allopurinol [facility] 29988304481 300 MG TAKE ONE TABLET BY MOUTH DAILY Procedures Procedure Coding System Code Date Office Visit, Est Pt., Level 3 CPT-4 53125 Jan 12, 2016 Vital Signs Date/Time: Jan 12, 2016 Cardiac Monitoring Heart Rate 80 bpm Weight 281.8 lbs Height 73 in BMI 37.17 Index Blood Pressure Diastolic 78 mmHg Blood Pressure Systolic 132 mmHg Results No Known Results Summary Purpose eClinicalWorks Submission
--- OUTSIDE RECORDS SUMMARY | 2016-07-08 21:12 | XMS REPORT ---
Author DONAVAN Mata [facility] eClinicalWorks Address Unknown Phone Unavailable Care Team Providers Care Science Professor Name Role Phone DONAVAN NAJERA CP Unavailable Allergies, Adverse Reactions, Alerts Substance Reaction Event Type Acetaminophen-Codeine #3 Failed Ameritox UDS- THC Drug Allergy Problems Problem Type Condition Code Onset Dates Condition Status Assessment Leukocytosis, unspecified type D72.829 Active Problem Coronary atherosclerosis of unspecified type of vessel, [place] or graft I25.10 Active Problem Encounter for long-term (current) use of other medications V58.69 Active Assessment Nausea R11.0 Active Assessment Chronic renal failure, stage 3 (moderate) N18.3 Active Problem Chronic renal failure, stage 3 (moderate) N18.3 Active Problem Diabetes E11.9 Active Problem Leukocytosis, unspecified type D72.829 Active Problem Proteinuria R80.9 Active Problem Insomnia, unspecified G47.00 Active Problem Gout, unspecified M10.9 Active Problem Gastroesophageal reflux disease, esophagitis presence not specified K21.9 Active Medications Medication Code System Code Instructions Start Date End Date Status Dosage Omeprazole [facility] [address]-99 40 mg Orally Once a day June 28, 2015 1 capsule GlipiZIDE [facility] [address]-88 5 mg Orally Once a day Feb 11, 2014 1 tablet at bedtime Allopurinol [facility] 77048561671 300 MG TAKE ONE TABLET BY MOUTH DAILY Trulicity [facility] [address]-72 0.75 MG/0.5ML Subcutaneous once weekly July 0.5 ml Atorvastatin Calcium [facility] [address]-01 10 mg TAKE ONE TABLET BY MOUTH DAILY Tizanidine HCl [facility] 09200773392 2 MG TAKE ONE TABLET BY MOUTH THREE TIMES DAILY NovoLog [facility] [address]-84 100 UNIT/ML Subcutaneous Jan 03, 2016 30 units with meal, 10 units with snack Seroquel [facility] [address]-80 50 mg Orally Once a day Feb 11, 2014 3 Tablets Toprol XL [facility] [address]-14 50 mg TAKE ONE TABLET BY MOUTH ONCE DAILY Levemir [facility] [address]-33 100 UNIT/ML Subcutaneous 2 times a day May 16, 2014 inject 25 units Glucometer [facility] 0 Jan 03, 2016 as directed Hydrocodone-Acetaminophen [facility] [address]-77 7.5-325 MG Orally every 6 hrs 1 tablet as needed Procedures Procedure Coding System Code Date ROCEPHIN 1 GM (IM) CPT-4 J0696 Jan 03, 2016 THER/PROPH/DIAG INJ, SC/IM CPT-4 61473 Jan 03, 2016 Office Visit, Est Pt., Level 3 CPT-4 59212 Jan 03, 2016 URINALYSIS, AUTO, W/O SCOPE CPT-4 06423 Jan 03, 2016 Vital Signs Date/Time: Jan 03, 2016 Cardiac Monitoring Heart Rate 88 bpm Weight 282.8 lbs Height 73 in BMI 37.31 Index Blood Pressure Diastolic 84 mmHg Blood Pressure Systolic 130 mmHg Results Name Result Date Reference Range Unit Abnormality Flag UA LONG DIP (IN HOUSE) ----SASHA 1+ 20160103 ----NIT Negative 20160103 ----Exp date 20160103 ----Lot # [id number] 20160103 ----SG 1.025 20160103 ----KET negative 20160103 ----ANDREW negative 20160103 ----GLU Trace 20160103 ----Odor no 20160103 ----pH 5.0 20160103 ----BLO 2+ 20160103 ----URO 0.2 20160103 ----Protein 3+ 20160103 ----Lot # [id number] 20160103 ----Exp date 20160103 ----Clarity CLOUDY 20160103 ----Color yellow 20160103 Summary Purpose eClinicalWorks Submission
--- OUTSIDE RECORDS SUMMARY | 2016-07-08 21:12 | XMS REPORT ---
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 916576998 Problem Leukocytosis, unspecified type D72.829 Active 216552689 Problem Chronic renal failure, stage 3 (moderate) N18.3 Active 25214645 Problem Type 2 diabetes mellitus with hyperglycemia E11.65 Active [id number] Problem residential 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 Active 193985843 Problem Encounter for long-term (current) use of other medications V58.69 Active 436594305 Problem Coronary atherosclerosis of unspecified type of vessel, [place] or graft I25.10 Active 612847337 Problem Insomnia, unspecified G47.00 Active 750999583 Assessment Gout of left knee due to renal impairment, unspecified chronicity M10.362 Dec, Active 369592926 Problem Proteinuria R80.9 Active 68621769 ALLERGIES Substance Reaction Event Type Date Status Acetaminophen-Codeine #3 Failed [facility]itox [facility]DS- [facility] Drug Allergy Dec, Active SOCIAL HISTORY No smoking Hx information available PLAN OF CARE VITAL SIGNS Height 73 in 2016-01-28 Weight 287.0 lbs 2016-01-28 Heart Rate 88 bpm 2016-01-28 Respiratory Rate 22 2016-01-28 BMI 37.86 kg/m2 2016-01-28 Blood pressure systolic 131 mmHg 2016-01-28 Blood pressure diastolic 86 mmHg 2016-01-28 MEDICATIONS Medication Instructions Dosage Frequency Start Date End Date Duration Status Allopurinol 300 MG TAKE ONE TABLET BY MOUTH DAILY 90 Active PredniSONE 20 mg Orally Once a day 3 now, 2 qd3 d, 1qd 3d 24h Dec, Active Glucometer as directed Dec, Active Seroquel 50 mg Orally Once a day 3 Tablets 24h Jan, 30 days Active Atorvastatin Calcium 10 mg TAKE ONE TABLET BY MOUTH DAILY 90 days Active Trulicity 0.75 MG/0.5ML Subcutaneous once weekly 0.5 ml Jul, Active Omeprazole 40 mg Orally Once a day 1 capsule 24h May, 30 days Active PredniSONE 10 mg Orally Once a day 4 tablets daily X 4 days, 3 tabs daily X 3 days, 2 tabs daily X 3 days stop 24h Dec, Active Hydrocodone-Acetaminophen 7.5-325 MG Orally every 4 hrs 1 tablet as needed 4h Dec, Active Levemir 100 UNIT/ML Subcutaneous 2 times a day inject 25 units 12h 19 Apr, 2014 Active NovoLog 100 UNIT/ML 30 units with meal, 10 units with snack Dec, Active Toprol XL 50 mg TAKE ONE TABLET BY MOUTH ONCE DAILY 90 days Active Tizanidine HCl 2 MG TAKE ONE TABLET BY MOUTH THREE TIMES DAILY Active RESULTS No Results PROCEDURES Procedure Date Ordered Related Diagnosis Body Site Office Visit, Est Pt., Level 3 Jan 28, 2016 IMMUNIZATIONS No Known Immunizations
--- OUTSIDE RECORDS SUMMARY | 2016-07-08 21:13 | XMS REPORT ---
Author Author CHAPARRO MUJICA [facility] eClinicalWorks Address Unknown Phone Unavailable Care Team Providers Care Fender Mechanic Apprentice Name Role Phone CHAPARRO MUJICA CP Unavailable Allergies, Adverse Reactions, Alerts Substance Reaction Event Type Acetaminophen-Codeine #3 Failed Ameritox UDS- THC Drug Allergy Problems Problem Type Condition Code Onset Dates Condition Status Assessment Pain in right foot M79.671 Active Problem Encounter for long-term (current) use of other medications V58.69 Active Medications Medication Code System Code Instructions Start Date End Date Status Dosage GlipiZIDE [facility] [address]-39 10 mg Feb 11, 2014 1 tablet by Oral route 2 times per day HydrOXYzine HCl [facility] [address]-91 50 mg Feb 11, 2014 1 tablet by Oral route 4 times per day PRN for anxiety Levemir [facility] [address]-80 100 units/mL May 16, 2014 inject 100 units by Subcutaneous route 2 times per day Lipitor [facility] [address]-81 10 mg 1 TAB orally once a day Feb 11, 2014 1 tablet by Oral route 1 time per day Ranitidine HCl [facility] [address]-69 150 mg May 13, 2014 1 tablet by Oral route every 12 hours metformin ND 0 500 mg Feb 11, 2014 take 2 tablet by Oral route 2 times per day with the evening meal Seroquel [facility] [address]-16 50 mg Feb 11, 2014 1-2 tablet by Oral route 1 time per day at bedtime Bactrim [facility] [address]-54 200-40 MG/5ML Orally 2 times a day 7.5 ml Actos [facility] [address]-57 15 mg Feb 14, 2014 take 1 tablet (15 mg) by oral route once daily Lisinopril [facility] [address]-70 5 mg Feb 11, 2014 1 tablet by Oral route 1 time per day Indomethacin [facility] [address]-98 50 mg Feb 11, 2014 1 capsule by Oral route 3 times per day Allopurinol [facility] [address]-06 300 mg Feb 11, 2014 1 tablet by Oral route 1 time per day Procedures Procedure Coding System Code Date Office Visit, Est Pt., Level 3 CPT-4 57798 Jan 13, 2015 Vital Signs Date/Time: Jan 13, 2015 Temperature 98.0 F Weight 302 lbs Height 73 in BMI 39.84 Index Blood Pressure Diastolic 110 mmHg Blood Pressure Systolic 170 mmHg Cardiac Monitoring Heart Rate 84 bpm Results No Known Results Summary Purpose eClinicalWorks Submission
--- OUTSIDE RECORDS SUMMARY | 2016-07-08 21:13 | XMS REPORT ---
Author Author CHAPARRO MUJICA [facility] eClinicalWorks Address Unknown Phone Unavailable Care Team Providers Care Brim Pouncing Machine Operator Name Role Phone CHAPARRO MUJICA CP Unavailable Allergies, Adverse Reactions, Alerts Substance Reaction Event Type Acetaminophen-Codeine #3 Failed Ameritox UDS- THC Drug Allergy Problems Problem Type Condition Code Onset Dates Condition Status Assessment Localized edema R60.0 Active Assessment Type 2 diabetes mellitus with hyperglycemia E11.65 Active Assessment Pain in right foot M79.671 Active Problem Gout, unspecified M10.9 Active Problem Gastroesophageal reflux disease, esophagitis presence not specified K21.9 Active Problem Diabetes E11.9 Active Problem Coronary atherosclerosis of unspecified type of vessel, [place] or graft I25.10 Active Problem Encounter for long-term (current) use of other medications V58.69 Active Problem Proteinuria R80.9 Active Problem Insomnia, unspecified G47.00 Active Medications Medication Code System Code Instructions Start Date End Date Status Dosage Allopurinol [facility] [address]-61 300 mg Feb 11, 2014 1 tablet by Oral route 1 time per day HydrOXYzine HCl [facility] [address]-66 50 mg Feb 11, 2014 1 tablet by Oral route 4 times per day PRN for anxiety Levemir [facility] [address]-59 100 units/mL May 16, 2014 inject 100 units by Subcutaneous route 2 times per day Seroquel [facility] [address]-73 50 MG Once a day Feb 11, 2014 3 tablet by Oral route 1 time per day at bedtime GlipiZIDE [facility] [address]-01 10 MG 2 times a day Feb 11, 2014 2 tablet by Oral route 2 times per day Lipitor [facility] [address]-52 10 mg 1 TAB orally once a day Feb 11, 2014 1 tablet by Oral route 1 time per day Indomethacin [facility] [address]-57 50 mg Feb 11, 2014 1 capsule by Oral route 3 times per day metformin ND 0 500 mg Feb 11, 2014 take 2 tablet by Oral route 2 times per day with the evening meal Ranitidine HCl [facility] [address]-20 150 mg May 13, 2014 1 tablet by Oral route every 12 hours Lisinopril [facility] [address]-60 20 MG Orally Feb 11, 2014 1 tablet by Oral route 1 time per day Bactrim [facility] [address]-68 200-40 MG/5ML Orally 2 times a day 7.5 ml Actos [facility] [address]-60 15 mg Feb 14, 2014 take 1 tablet (15 mg) by oral route once daily Procedures Procedure Coding System Code Date Office Visit, Est Pt., Level 3 CPT-4 46310 Feb 04, 2015 Vital Signs Date/Time: Feb 04, 2015 Temperature 98.8 F Weight 289.2 lbs Height 73 in BMI 38.15 Index Blood Pressure Diastolic 86 mmHg Blood Pressure Systolic 160 mmHg Cardiac Monitoring Heart Rate 96 bpm Results No Known Results Summary Purpose eClinicalWorks Submission
--- OUTSIDE RECORDS SUMMARY | 2016-07-08 21:13 | XMS REPORT ---
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
--- OUTSIDE RECORDS SUMMARY | 2016-07-08 21:13 | XMS REPORT ---
Author Author CHAPARRO MUJICA [facility] eClinicalWorks Address Unknown Phone Unavailable Care Team Providers Care Box Liner Name Role Phone CHAPARRO MUJICA CP Unavailable Allergies, Adverse Reactions, Alerts Substance Reaction Event Type Acetaminophen-Codeine #3 Failed [facility]itox UDS- [facility]C Drug Allergy Problems Problem Type Condition Code Onset Dates Condition Status Assessment Viral illness B34.9 Active Problem Gout, unspecified M10.9 Active Problem Gastroesophageal reflux disease, esophagitis presence not specified K21.9 Active Problem Diabetes E11.9 Active Problem Coronary atherosclerosis of unspecified type of vessel, [place] or graft I25.10 Active Problem Encounter for long-term (current) use of other medications V58.69 Active Problem Proteinuria R80.9 Active Problem Insomnia, unspecified G47.00 Active Medications Medication Code System Code Instructions Start Date End Date Status Dosage GlipiZIDE [facility] [address]-95 10 MG 2 times a day Feb 11, 2014 2 tablet by Oral route 2 times per day Seroquel [facility] [address]-14 50 MG Once a day Feb 11, 2014 3 tablet by Oral route 1 time per day at bedtime Ranitidine HCl [facility] [address]-87 150 mg May 13, 2014 1 tablet by Oral route every 12 hours Levemir [facility] [address]-35 100 units/mL May 16, 2014 inject 100 units by Subcutaneous route 2 times per day Bactrim [facility] [address]-09 200-40 MG/5ML Orally 2 times a day 7.5 ml Promethazine-Codeine [facility] [address]-74 6.25-10 MG/5ML Orally every 6 hrs prn cough Feb 17, 2015 5 ml as needed Zofran [facility] [address]-48 4 MG Orally 3 times a day prn nause Feb 17, 2015 1 tablet metformin ND 0 500 mg Feb 11, 2014 take 2 tablet by Oral route 2 times per day with the evening meal Allopurinol [facility] [address]-04 300 mg Feb 11, 2014 1 tablet by Oral route 1 time per day Lipitor [facility] [address]-23 10 mg 1 TAB orally once a day Feb 11, 2014 1 tablet by Oral route 1 time per day Lisinopril [facility] [address]-70 20 MG Orally Feb 11, 2014 1 tablet by Oral route 1 time per day Actos [facility] [address]-41 15 mg Feb 14, 2014 take 1 tablet (15 mg) by oral route once daily Indomethacin [facility] [address]-56 50 mg Feb 11, 2014 1 capsule by Oral route 3 times per day HydrOXYzine HCl [facility] [address]-17 50 mg Feb 11, 2014 1 tablet by Oral route 4 times per day PRN for anxiety Procedures Procedure Coding System Code Date Office Visit, Est Pt., Level 3 CPT-4 47692 Feb 17, 2015 Vital Signs Date/Time: Feb 17, 2015 Temperature 99.0 F Weight 288.4 lbs Height 73 in BMI 38.05 Index Blood Pressure Diastolic 96 mmHg Blood Pressure Systolic 160 mmHg Cardiac Monitoring Heart Rate 96 bpm Results No Known Results Summary Purpose eClinicalWorks Submission
--- OUTSIDE RECORDS SUMMARY | 2016-07-08 21:57 | XMS REPORT | Continuity of Care Document ---
Author Author [facility] Address Unknown Phone Unavailable Allergies Active Description Code Type Severity Reaction Onset Reported/Identified Relationship to Patient Clinical Status Yes No Known Drug Allergies [id number] Drug Allergy Mild N/A 09/15/2008 Yes Actos [...] NOS 07/05/2009 Ot 414.01 CORONARY ATHEROSCLEROSIS OF [place] CORON 07/05/2009 Ot 574.20 CHOLELITHIASIS NOS 07/05/2009 Ot 577.0 ACUTE PANCREATITIS 07/05/2009 Ot 592.0 CALCULUS OF KIDNEY 07/05/2009 Ot 593.9 RENAL URETERAL DIS NOS 07/05/2009 Ot 794.39 ABN CARDIOVASC STUDY NEC 07/05/2009 Ot V12.79 PERSONAL HISTORY OTH SPEC DIGESTIVE SYST 07/05/2009 Ot V85.39 BODY MASS INDEX 39.0-39.9, ADULT 08/16/2009 Ot 414.00 CORON ATHEROSCLER NOS TYPE VESSEL, NATIV 08/16/2009 Ot 440.20 ATHEROSCLEROSIS [place] ARTERIES EXTREMIT 08/16/2009 Ot 496 CHR [...] NOS 01/07/2011 Ot 414.01 CORONARY ATHEROSCLEROSIS OF [place] CORON 01/07/2011 Ot 786.50 CHEST PAIN [...] CORONARY ATHEROSCLEROSIS OF UNSPECIFIED TYPE OF VESSEL [place] OR GRAFT 03/23/2012 CHARMAINE MERRILL DO 780.52 INSOMNIA UNSPECIFIED 03/23/2012 KATERIN MERRILL DOA K 791.0 MICROALBUMINURIA 03/23/2012 CHARMAINE MERRILL DO K V58.69 LONG-TERM (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 OTHER MEDICATIONS 03/23/2012 SARI MOJICA MD 414.00 CORONARY ATHEROSCLEROSIS OF UNSPECIFIED TYPE OF VESSEL [place] OR GRAFT 03/23/2012 SARI MOJICA MD 780.52 INSOMNIA UNSPECIFIED 03/23/2012 SARI MOJICA MD 791.0 MICROALBUMINURIA 03/23/2012 SARI MOJICA MD V58.69 LONG-TERM (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 OTHER MEDICATIONS 03/23/2012 CHARMAINE MERRILL DO 414.00 CORONARY ATHEROSCLEROSIS OF UNSPECIFIED TYPE OF VESSEL [place] OR GRAFT 03/23/2012 CHARMAINE MERRILL DO 780.52 INSOMNIA UNSPECIFIED 03/23/2012 KATERIN MERRILL DOA K 791.0 MICROALBUMINURIA 03/23/2012 GARFIELD MAURICIO CHARMAINE K V58.69 LONG-TERM (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 OTHER MEDICATIONS 03/23/2012 KATERIN MERRILL DOA K 414.00 CORONARY ATHEROSCLEROSIS OF UNSPECIFIED TYPE OF VESSEL [place] OR GRAFT 03/23/2012 GARFIELD MAURICIO CHARMAINE K 780.52 INSOMNIA UNSPECIFIED 03/23/2012 GARFIELD MAURICIO CHARMAINE K 791.0 MICROALBUMINURIA 03/23/2012 GARFIELD MAURICIO CHARMAINE K V58.69 LONG-TERM (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 OTHER MEDICATIONS 03/23/2012 MERRILL DO, CHARMAINE K 414.00 CORONARY ATHEROSCLEROSIS OF UNSPECIFIED TYPE OF VESSEL [place] OR GRAFT 03/23/2012 MERRILL DO, CHARMAINE K 780.52 INSOMNIA UNSPECIFIED 03/23/2012 MERRILL DO, CHARMAINE K 791.0 MICROALBUMINURIA 03/23/2012 MERRILL DO, CHARMAINE K V58.69 LONG-TERM (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 OTHER MEDICATIONS 03/23/2012 MERRILL DO, CHARMAINE K 414.00 CORONARY ATHEROSCLEROSIS OF UNSPECIFIED TYPE OF VESSEL [place] OR GRAFT 03/23/2012 MERRILL DO, CHARMAINE K 780.52 INSOMNIA UNSPECIFIED 03/23/2012 MERRILL DO, CHARMAINE K 791.0 MICROALBUMINURIA 03/23/2012 MERRILL DO, CHARMAINE K V58.69 LONG-TERM (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 OTHER MEDICATIONS 03/23/2012 MERRILL DO, CHARMAINE K 414.00 CORONARY ATHEROSCLEROSIS OF UNSPECIFIED TYPE OF VESSEL [place] OR GRAFT 03/23/2012 MERRILL DO, CHARMAINE K 780.52 INSOMNIA UNSPECIFIED 03/23/2012 MERRILL DO, CHARMAINE K 791.0 MICROALBUMINURIA 03/23/2012 MERRILL DO, CHARMAINE K V58.69 LONG-TERM (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 OTHER MEDICATIONS 03/23/2012 MERRILL DO, CHARMAINE K 414.00 CORONARY ATHEROSCLEROSIS OF UNSPECIFIED TYPE OF VESSEL [place] OR GRAFT 03/23/2012 MERRILL DO, CHARMAINE K 780.52 INSOMNIA UNSPECIFIED 03/23/2012 MERRILL DO, CHARMAINE K 791.0 MICROALBUMINURIA 03/23/2012 MERRILL DO, CHARMAINE K V58.69 LONG-TERM (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 OTHER MEDICATIONS 03/23/2012 MERRILL DO, CHARMAINE K 414.00 CORONARY ATHEROSCLEROSIS OF UNSPECIFIED TYPE OF VESSEL [place] OR GRAFT 03/23/2012 MERRILL DO, CHARMAINE K 780.52 INSOMNIA UNSPECIFIED 03/23/2012 MERRILL DO, CHARMAINE K 791.0 MICROALBUMINURIA 03/23/2012 MERRILL DO, CHARMAINE K V58.69 LONG-TERM (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 OTHER MEDICATIONS 03/23/2012 MERRILL DO, CHARMAINE K 414.00 CORONARY ATHEROSCLEROSIS OF UNSPECIFIED TYPE OF VESSEL [place] OR GRAFT 03/23/2012 MERRILL DO, CHARMAINE K 780.52 INSOMNIA UNSPECIFIED 03/23/2012 MERRILL DO, CHARMAINE K 791.0 MICROALBUMINURIA 03/23/2012 MERRILL DO, CHARMAINE K V58.69 LONG-TERM (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 OTHER MEDICATIONS 03/23/2012 MERRILL CHARMAINE MAURICIO 414.00 CORONARY ATHEROSCLEROSIS OF UNSPECIFIED TYPE OF VESSEL [place] OR GRAFT 03/23/2012 MERRILL CHARMAINE MAURICIO [...] ST 03/27/2012 Ot 414.01 CORONARY ATHEROSCLEROSIS OF [place] CORON 03/27/2012 Ot 585.9 CHRONIC KIDNEY DISEASE, UNSPECIFIED 03/27/2012 Ot 787.01 NAUSEA WITH VOMITING 03/27/2012 Ot 789.09 ABDOMINAL PAIN, OTHER SPECIFIED SITE 03/27/2012 Ot V45.82 PERCUTANEOUS TRANSLUM CORON ANGIOPLASTY 06/05/2012 Ot 250.00 DIAB MIHAELA WO COMPL, TYPE II OR UNSPEC TY 06/05/2012 Ot 274.9 GOUT NOS 06/05/2012 Ot 414.01 CORONARY ATHEROSCLEROSIS OF [place] CORON 06/05/2012 Ot 593.9 RENAL URETERAL [...] MICHAEL MD Ot 414.01 CORONARY ATHEROSCLEROSIS OF [place] CORON 04/19/2013 ARIELLE MICHAEL MD Ot [...] TERESA ROD MD (DDU) Ot V82.89 06/15/2014 JOS QUIROZ DO Ot 250.00 DIAB MIHAELA WO [...] MD (DDU) Ot V82.89 06/15/2014 MARIA TERESA ROD MD (DDU) Ot V68.01 06/15/2014 MARIA TERESA [...] ANGELIA CHAMORRO DO Ot I70.201 UNSP ATHSCL [place] ARTERIES OF [facility] 01/12/2015 ANGELIA CHAMORRO DO Ot M77.31 CALCANEAL SPUR, RIGHT FOOT 01/12/2015 ANGELIA CHAMORRO DO Ot 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 01/12/2015 ANGELIA CHAMORRO DO Ot Z79.899 OTHER GROUP HOME (CURRENT) DRUG THERAPY 01/14/2015 Ot 414.01 01/14/2015 Ot 786.50 01/14/2015 Ot 414.9 01/14/2015 Ot 786.50 01/14/2015 AMI MEZA MD Ot 717.5 01/14/2015 VINCE MEJIA MD (DDU) Ot V68.01 01/14/2015 VINCE MEJIA MD (DDU) Ot V82.89 01/14/2015 MARIA TERESA ROD MD (DDU) Ot V68.01 01/14/2015 MARIA TERESA ROD MD (DDU) Ot V82.89 06/27/2015 Ot 414.01 CORONARY ATHEROSCLEROSIS OF [place] CORON 06/27/2015 Ot 786.50 CHEST PAIN [...] CONDITIONS 06/28/2015 Ot 414.01 CORONARY ATHEROSCLEROSIS OF [place] CORON 06/28/2015 Ot 786.50 CHEST PAIN [...] DISABILITY EXAMINATION 06/28/2015 MARIA TERESA ROD MD ([facility]) Ot V82.89 SCREEN FOR OTH SPECIF [...] ADULT 06/28/2015 KAYA TADEO MD Ot Z79.4 GROUP HOME (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 06/28/2015 KAYA TADEO [...] BODY MASS INDEX (BMI) 37.0-37.9, ADULT 06/28/2015 AKYA TADEO MD Ot Z79.4 GROUP HOME (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 06/28/2015 KAYA TADEO MD Ot Z91.14 PATIENT'S OTHER NONCOMPLIANCE WITH MEDIC 06/30/2015 Ot 414.01 CORONARY ATHEROSCLEROSIS OF [place] CORON 06/30/2015 Ot 786.50 CHEST PAIN [...] URETER 08/20/2015 Ot 414.01 CORONARY ATHEROSCLEROSIS OF [place] CORON 08/20/2015 Ot 786.50 CHEST PAIN [...] CONDITIONS 08/20/2015 Ot 414.01 CORONARY ATHEROSCLEROSIS OF [place] CORON 08/20/2015 Ot 786.50 CHEST PAIN [...] CONDITIONS 09/29/2015 Ot 414.01 CORONARY ATHEROSCLEROSIS OF [place] CORON 09/29/2015 Ot 786.50 CHEST PAIN [...] UNSPECIFIED 01/02/2016 ROSALIE BURDICK MD Ot Z79.4 GROUP HOME (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 01/02/2016 ROSALIE BURDICK MD Ot Z79.84 GROUP HOME (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 ORAL HYPOGLYC 01/02/2016 ROSALIE BURDICK MD Ot Z79.899 OTHER 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 (CURRENT) DRUG THERAPY 01/02/2016 Ot 414.9 CHR [...] STATUS 01/09/2016 JOS QUIROZ DO, Ot Z79.4 GROUP HOME (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 01/09/2016 JOS QUIROZ DO, Ot Z79.899 OTHER GROUP HOME (CURRENT) DRUG THERAPY 01/10/2016 ROSALIE BURDICK MD [...] UNSPECIFIED 01/10/2016 ROSALIE BURDICK MD, Ot 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 01/10/2016 ROSALIE BURDICK MD, Ot Z79.84 GROUP HOME (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 ORAL HYPOGLYC 01/10/2016 ROSALIE BURDICK MD, Ot Z79.899 OTHER 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 (CURRENT) DRUG THERAPY 01/12/2016 JOS QUIROZ DO, [...] STATUS 01/12/2016 JOS QUIROZ DO, Ot 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 01/12/2016 JOS QUIROZ DO, Ot Z79.899 OTHER 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 (CURRENT) DRUG THERAPY 02/24/2016 SAMSON SMITH MD [...] KNEE 02/24/2016 SAMSON SMITH MD Ot 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 02/24/2016 SAMSON SMITH MD Ot Z79.899 OTHER GROUP HOME (CURRENT) DRUG THERAPY 03/12/2016 BENJAMIN ANAND APRN Ot E11.9 TYPE 2 DIABETES MELLITUS WITHOUT COMPLIC 03/12/2016 BENJAMIN ANAND PARTS WASHER Ot I10 ESSENTIAL (PRIMARY) HYPERTENSION 03/12/2016 BENJAMIN ANAND PARTS WASHER Ot L03.115 CELLULITIS OF RIGHT LOWER LIMB 03/12/2016 BENJAMIN ANAND PARTS WASHER Ot R22.41 LOCALIZED SWELLING, MASS AND LUMP, RIGHT 03/12/2016 BENJAMIN ANAND APRN Ot 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 03/12/2016 BENJAMIN ANAND APRN Ot Z79.899 OTHER 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 (CURRENT) DRUG THERAPY 03/12/2016 BENJAMIN ANAND APRN Ot Z95.5 PRESENCE OF CORONARY ANGIOPLASTY IMPLANT 03/15/2016 BENJAMIN ANAND PARTS WASHER Ot E11.9 TYPE 2 DIABETES MELLITUS WITHOUT COMPLIC 03/15/2016 BENJAMIN ANAND APRN Ot I10 ESSENTIAL (PRIMARY) HYPERTENSION 03/15/2016 BENJAMIN ANAND PARTS WASHER Ot L03.115 CELLULITIS OF RIGHT LOWER LIMB 03/15/2016 BENJAMIN ANAND PARTS WASHER Ot R22.41 LOCALIZED SWELLING, MASS AND LUMP, RIGHT 03/15/2016 BENJAMIN ANAND APRN Ot Z79.4 GROUP HOME (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 03/15/2016 BENJAMIN ANAND APRN Ot Z79.899 OTHER GROUP HOME (CURRENT) DRUG THERAPY 03/15/2016 BENJAMIN ANAND APRN Ot Z95.5 PRESENCE OF CORONARY ANGIOPLASTY IMPLANT 03/18/2016 MIKHAIL ARCHIBALDP Ot E11.9 TYPE 2 DIABETES MELLITUS WITHOUT COMPLIC 03/18/2016 MIKHAIL ARCHIBALD BRAID PATTERN SETTER Ot F17.210 NICOTINE DEPENDENCE, CIGARETTES, UNCOMPL 03/18/2016 MIKHAIL ARCHIBALD BRAID PATTERN SETTER Ot I10 ESSENTIAL (PRIMARY) HYPERTENSION 03/18/2016 MIKHAIL ARCHIBALD BRAID PATTERN SETTER Ot L03.115 CELLULITIS OF RIGHT LOWER LIMB 03/18/2016 MIKHAIL ARCHIBALDP Ot M79.671 PAIN IN RIGHT FOOT 03/18/2016 MIKHAIL ARCHIBALDP Ot Z79.4 GROUP HOME (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 03/18/2016 MIKHAIL ARCHIBALDP Ot Z79.899 OTHER GROUP HOME (CURRENT) DRUG THERAPY 03/18/2016 MIKHAIL ARCHIBALD BRAID PATTERN SETTER Ot Z95.5 PRESENCE OF CORONARY ANGIOPLASTY IMPLANT 03/19/2016 MIKHAIL ARCHIBALD BRAID PATTERN SETTER Ot E11.9 TYPE 2 DIABETES MELLITUS WITHOUT COMPLIC 03/19/2016 DRAGAN, MIKHAIL BRAID PATTERN SETTER Ot F17.210 NICOTINE DEPENDENCE, CIGARETTES, UNCOMPL 03/19/2016 DRAGAN, MIKHAIL BRAID PATTERN SETTER Ot I10 ESSENTIAL (PRIMARY) HYPERTENSION 03/19/2016 DRAGAN, MIKHAIL BRAID PATTERN SETTER Ot L03.115 CELLULITIS OF RIGHT LOWER LIMB 03/19/2016 DRAGAN, MIKHAIL BRAID PATTERN SETTER Ot M79.671 PAIN IN RIGHT FOOT 03/19/2016 DRAGAN, MIKHAIL BRAID PATTERN SETTER Ot 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 03/19/2016 DRAGAN, MIKHAIL BRAID PATTERN SETTER Ot Z79.899 OTHER 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 (CURRENT) DRUG THERAPY 03/19/2016 DRAGAN, MIKHAIL BRAID PATTERN SETTER Ot Z95.5 PRESENCE OF CORONARY ANGIOPLASTY IMPLANT 03/24/2016 DRAGAN, MIKHAIL BRAID PATTERN SETTER Ot E11.9 TYPE 2 DIABETES MELLITUS WITHOUT COMPLIC 03/24/2016 DRAGAN, MIKHAIL BRAID PATTERN SETTER Ot F17.210 NICOTINE DEPENDENCE, CIGARETTES, UNCOMPL 03/24/2016 DRAGAN, MIKHAIL BRAID PATTERN SETTER Ot I10 ESSENTIAL (PRIMARY) HYPERTENSION 03/24/2016 DRAGAN, MIKHAIL BRAID PATTERN SETTER Ot L03.115 CELLULITIS OF RIGHT LOWER LIMB 03/24/2016 DRAGAN, MIKHAIL BRAID PATTERN SETTER Ot M79.671 PAIN IN RIGHT FOOT 03/24/2016 DRAGAN, MIKHAIL BRAID PATTERN SETTER Ot 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9 CHRONIC KIDNEY DISEASE, UNSPECIFIED 06/24/2016 ERICA BOWMAN MD, Ot T82.855A STENOSIS OF CORONARY ARTERY STENT, INITI 06/24/2016 ERICA BOWMAN MD, Ot Z68.38 BODY MASS INDEX (BMI) 38.0-38.9, ADULT 06/24/2016 ERICA BOWMAN MD, Ot Z72.0 TOBACCO USE 06/24/2016 ERICA BOWMAN MD, Ot Z79.84 GROUP HOME (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 ORAL HYPOGLYC 06/24/2016 ERICA BOWMAN MD, Ot Z79.899 OTHER GROUP HOME (CURRENT) DRUG THERAPY Procedures Code Description Performed By Performed On 00.40 07/04/2009 00.45 07/04/2009 00.66 07/04/2009 36.07 07/04/2009 88.56 07/04/2009 81451 ROUTINE VENIPUNCTURE 03/23/2012 51880 A1C (IN-HOUSE) 34941 MICRO ALBUMIN-IN HOUSE 03/23/2012 89377 MICROALBUMIN 12257 CMP 03/23/2012 95826 LIPID PANEL 03/23 0197955 GFR CALC (RESULT ONLY) 03/23/2012 Cardiolog Rory Moreland 04/27/2012 09022 A1C (IN-HOUSE) 93981 ROUTINE VENIPUNCTURE 06/14/2013 39695 A1C (IN-HOUSE) 43268 MICRO ALBUMIN-IN HOUSE 06/14/2013 3229588 GFR CALC (RESULT ONLY) 06/14/2013 21902 CMP 06/14/2013 15890 LIPID PANEL 06/14 78405 MICROALBUMIN 88781 CMP 09/10/2013 06064 URIC ACID 2013 37881 [employer] 2013 93881 A1C (IN-HOUSE) 51143 JOINT INJECTION- LARGE JOINT (SPECIFY MEDCIN DESCRIPTION) 11/23/2013 80098 ROUTINE VENIPUNCTURE 02/11/2014 71015 [facility] 02/11/2014 23208 A1C (IN-HOUSE) Results Test Result Range Complete [...] Blood erythrocyte morphology finding identification NORMAL [facility] Comprehensive metabolic panel - 04/04/16 [...] culture - 04/04/16 22:50 Bacterial blood culture [facility] Bacterial blood culture - 04/04/16 22:50 Bacterial blood culture [facility] Complete blood count (CBC) with automated white [...] Status Pt. Type Provider Facility Loc./Unit Complaint [id number] 02/11/2014 11:53:00 02/11/2014 23: 59:59 CLS Outpatient MERRILL DOCHARMAINE [id number] 12/20/2013 00:00:00 12/20/2013 23: 59:59 CLS Outpatient MERRILL DO CHARMAINE K [id number] 11/23/2013 11:17:00 11/23/2013 23: 59:59 CLS Outpatient MERRILL DOCHARMAINE [id number] 10/12/2013 13:36:00 10/12/2013 23: 59:59 CLS Outpatient MERRILL DO CHARMAINE K [id number] 09/10/2013 08:26:00 09/10/2013 23: 59:59 CLS Outpatient MERRILL DOCHARMAINE [id number] 06/14/2013 11:34:00 06/14/2013 23: 59:59 CLS Outpatient MERRILL DOCHARMAINE [id number] 06/11/2013 16:49:00 06/11/2013 23: 59:59 CLS Outpatient MERRILL DOCHARMAINE [id number] 05/08/2013 16:16:00 05/08/2013 23: 59:59 CLS Outpatient MERRILL DOCHARMAINE [id number] 09/06/2012 10:39:00 09/06/2012 23: 59:59 CLS Outpatient MERRILL DOCHARMAINE [id number] 04/12/2012 12:53:00 04/12/2012 23: 59:59 CLS Outpatient SARI MOJICA MD [id number] 03/23/2012 09:53:00 03/23/2012 23: 59:59 CLS Outpatient CHARMAINE MERRILL DO [id number] 01/11/2012 14:51:00 01/11/2012 23: 59:59 CLS Outpatient [id number] 07/08/2011 13:35:00 07/08/2011 23:59 :59 CLS Outpatient SANA DEE DDS
== END 2016-06-05 08:58 | disposition home or self-care (01) ==
LOC: EDUNIT# 08:40 → ER 08:42 → ICU 11:50 → UNDOADMOB 11:50 → CATH 13:20 → ICU 13:20 → CATH 06-05 08:58 → UNDODISOB 06-05 11:13
PROVIDERS: ATTEND Internal Medicine Cardiovascular Disease
DX: I25.110 Atherosclerotic heart disease of native coronary artery with unstable angina pectoris (principal); T82.855A Stenosis of coronary artery stent, initial encounter; I12.9 Hypertensive chronic kidney disease with stage 1 through stage 4 chronic kidney disease, or unspecified chronic kidney disease; N18.9 Chronic kidney disease, unspecified; E78.5 Hyperlipidemia, unspecified; E11.22 Type 2 diabetes mellitus with diabetic chronic kidney disease; E66.9 Obesity, unspecified; Z79.84 Long term (current) use of oral hypoglycemic drugs; Z68.38 Body mass index [BMI] 38.0-38.9, adult; Z72.0 Tobacco use; Z79.899 Other long term (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 therapy
CPT/HCPCS: 36415; 71010; 80048; 80053; 80061; 82962; 83735; 84484; 85025; 85027; 85347; 85610; 85730; 93005; 93458; 96372

== ENCOUNTER → 2016-07-21 | Day surgery (SDC) | payer SELFPAY ==
[~2016-07-21] VITALS: Ht 185.4 cm; Wt 127.9 kg
[~2016-07-21] MED LIST changes: +ASPI-586 PO; +ASPI-983 PO; +ATOR10TA PO; +CLOP75TA69 PO; +HEParin (CATH LAB) 2,000 ML IV ONE; +LIDOCAINE 1% INJ 20 ML (XYLOCAINE) VIAL ONE; +LISI-556 PO; +NS IV 1000 ML 1,000 ML IV SCH; +NS IV 1000 ML 1,000 ML ONE; +QUET50TA PO; +QUET50TA55 PO; +TICA90TA PO
[2016-07-21 07:07] VITALS: BP 153/93
[2016-07-21 07:12] LABS: MEAN PLATELET VOLUME 9.8 FL (7.4-10.4); RED BLOOD COUNT 4.63 10^6/uL (4.35-5.85); WHITE BLOOD COUNT 14.5 10^3/uL (4.3-11.0)
[2016-07-21 07:13] LABS: BILIRUBIN,URINE NEGATIVE (NEGATIVE); KETONES,URINE NEGATIVE (NEGATIVE); LEUKOCYTE ESTERASE ,URINE 1+ (NEGATIVE); NITRITE,URINE NEGATIVE (NEGATIVE); PH,URINE 6.5 (5-9); PROTEIN,URINE 4+ (NEGATIVE); UROBILINOGEN,URINE NORMAL (NORMAL)
--- NOTE | 2016-07-21 07:21 | Diagnostic Imaging Report ---
EXAM: CHEST 1 VIEW, AP/PA ONLY. INDICATION: Chest pain. COMPARISON: Chest radiograph 06/04/2016. FINDINGS: Normal heart size and pulmonary vascularity. Calcified aorta. Low lung volumes. No dense consolidation, pleural effusion, or pneumothorax. Advanced degenerative changes in the left acromioclavicular joint. No acute osseous findings. IMPRESSION: Low lung volumes. No acute cardiopulmonary findings. Dictated by: Dictated on workstation # [id number]
[2016-07-21 07:23] LABS: PROTHROMBIN TIME PATIENT 12.5 SEC (12.2-14.7)
[2016-07-21 07:24] LABS: SQUAMOUS EPITHELIAL CELL,UR RARE /HPF; WBC,URINE 25-50 /HPF
[2016-07-21 07:33] LABS: ALBUMIN 3.7 G/DL (3.2-4.5); BILIRUBIN,TOTAL 0.2 MG/DL (0.1-1.0); CALCIUM 9.4 MG/DL (8.5-10.1); CREATININE SERUM 3.09 MG/DL (0.60-1.30); TOTAL PROTEIN 7.3 G/DL (6.4-8.2)
[2016-07-21 09:19] LABS: PROTEIN/CREATININE RATIO 2.63
== END ==
LOC: CATH 06:44
PROVIDERS: ATTEND Internal Medicine Cardiovascular Disease
DX: R07.89 Other chest pain (principal); Z53.09 Procedure and treatment not carried out because of other contraindication; I25.10 Atherosclerotic heart disease of native coronary artery without angina pectoris; I10 Essential (primary) hypertension; E78.5 Hyperlipidemia, unspecified; E11.9 Type 2 diabetes mellitus without complications; Z79.4 Long term (current) use of insulin; Z79.899 Other long term (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 therapy; Z72.0 Tobacco use; Z95.5 Presence of coronary angioplasty implant and graft; R35.8 Other polyuria
CPT/HCPCS: 36415; 71010; 80053; 80061; 81000; 82570; 84156; 85027; 85610; 85730; 87081; 87088; 93005

== ENCOUNTER → 2016-08-02 | Outpatient (CLI) | payer OTHER ==
[~2016-08-02] MED LIST changes: -HEParin (CATH LAB) 2,000 ML IV ONE; -LIDOCAINE 1% INJ 20 ML (XYLOCAINE) VIAL ONE; -NS IV 1000 ML 1,000 ML IV SCH; -NS IV 1000 ML 1,000 ML ONE
[2016-08-02 15:06] LABS: CALCIUM 8.8 MG/DL (8.5-10.1); CREATININE SERUM 2.25 MG/DL (0.60-1.30)
== END ==
LOC: LAB 14:24
PROVIDERS: ATTEND Physician Assistant
DX: I25.10 Atherosclerotic heart disease of native coronary artery without angina pectoris (principal); N18.9 Chronic kidney disease, unspecified; R07.89 Other chest pain; K21.9 Gastro-esophageal reflux disease without esophagitis
CPT/HCPCS: 36415; 80048

== ENCOUNTER 2016-08-04 07:54 | Day surgery (SDC) | payer OTHER ==
[2016-08-04] VITALS (18 sets, daily range): BP systolic 103–179; BP diastolic 54–104
[~2016-08-04] VITALS: Ht 185.4 cm; Wt 127.0 kg
[~2016-08-04 07:54] MED LIST changes: +HEParin (CATH LAB) 2,000 ML IV ONE; +NS IV 1000 ML 1,000 ML ONE
[2016-08-04] MEDS: NS IV 1000 ML 1,000 ML IV SCH ×4 (08:16→14:43)
[2016-08-04 08:21] LABS: MEAN PLATELET VOLUME 9.5 FL (7.4-10.4); RED BLOOD COUNT 4.58 10^6/uL (4.35-5.85); RED CELL DISTRIBUTION WIDTH 16.3 % (10.0-14.5); WHITE BLOOD COUNT 12.9 10^3/uL (4.3-11.0)
[2016-08-04 08:22] LABS: BILIRUBIN,URINE NEGATIVE (NEGATIVE); KETONES,URINE NEGATIVE (NEGATIVE); LEUKOCYTE ESTERASE ,URINE 1+ (NEGATIVE); NITRITE,URINE NEGATIVE (NEGATIVE); PH,URINE 6 (5-9); PROTEIN,URINE 4+ (NEGATIVE); UROBILINOGEN,URINE NORMAL (NORMAL)
[2016-08-04 08:32] LABS: PROTHROMBIN TIME PATIENT 12.7 SEC (12.2-14.7)
--- NOTE | 2016-08-04 08:32 | Diagnostic Imaging Report ---
Portable upright radiograph of the chest. INDICATION: Chest pain. FINDINGS: The lungs are clear. The heart size is normal. No effusion or pneumothorax. The mediastinum and ruby appear unremarkable. IMPRESSION: Unremarkable exam. Dictated by: Dictated on workstation # [id number]
[2016-08-04 08:40] LABS: ALBUMIN 3.5 G/DL (3.2-4.5); BILIRUBIN,TOTAL 0.2 MG/DL (0.1-1.0); CREATININE SERUM 2.36 MG/DL (0.60-1.30); POTASSIUM 3.8 MMOL/L (3.6-5.0); TOTAL PROTEIN 7.2 G/DL (6.4-8.2)
--- NOTE | 2016-08-04 09:24 | Cardiac Procedure Note-CS/ASA ---
Pre-Procedure Note Pre-Op Procedure Note H&P Reviewed The H&P was reviewed, patient examined and no changes noted. Date H&P Reviewed: Aug 04, 2016 Time H&P Reviewed: 09:23 Conscious Sedation Pre-Proced Time Reviewed: :23 ASA Class: 3 Airway Mallampati Classification: ([place] appropriate class) I. II. III, IV Lungs Heart ASA score ASA 1: a normal healthy patient ASA 2: a patient with a mild systemic disease (mid diabetes, controlled hypertension, obesity x ASA 3: a patient with a severe systemic disease that limits activity (angina , COPD, prior Myocardial infarction) ASA 4: a patient with an incapacitating disease that is a constant threat to life (CHF, renal failure) ASA 5: a moribund patient not expected to survive 24 hrs. (ruptured aneurysm) ASA 6: a declared brain patient whose organs are being harvested. For emergent operations, add the letter E after the classification Grade 3 Sedation Plan: Analgesia, Amnesia, Plan communicated to team members, Discussed options with patient/fam, Discussed risks with patient/fam Note The patient is an appropriate candidate to undergo the planned procedure, sedation, and anesthesia. The patient immediately re-assessed prior to indication. ERICA BOWMAN MD Aug 04, 2016 09:24
[2016-08-04] MEDS ORDERED: MIDAZOLAM 5 MG/5 ML (VERSED) VIAL ONE (09:50)
[2016-08-04] MEDS ORDERED: fentaNYL INJECTION 100 MCG/2 ML AMP ONE (09:50)
[2016-08-04] MEDS ORDERED: NS IV 1000 ML 1,000 ML ONE (09:57)
[2016-08-04] MEDS ORDERED: NITROGLYCERIN DRIP 25 MG/D5W 250 ML IV ONE (10:08)
[2016-08-04] MEDS ORDERED: HEParin 1000 UNIT/ML (10ML VIAL) FOR BOLUS ONE (10:08)
[2016-08-04] MEDS ORDERED: EPTIFIBATIDE BOLUS 0 ML IV ONE (10:09)
[2016-08-04] MEDS ORDERED: CLOPIDOGREL 300 MG (PLAVIX) TABLET PO ONE (10:53)
[2016-08-04] MEDS ORDERED: ASPIRIN 325 MG (5 GR) TABLET ONE (10:53)
--- NOTE | 2016-08-04 10:55 | Cardiology Post Procedure Note ---
Post-Procedure Note Physician (s)/Laborer Tree Tapping (s) Physician ERICA BOWMAN MD Pre-Procedure Diagnosis Pre-Procedure Diagnosis: CAD Post-Procedure Note Procedure Start Date: Aug 04, 2016 Procedure Start Time: 10:52 Name of Procedure: Stent to RCA Findings/Procedure Note 70% stenosis to mid RCA, 3.5x23 Xience Alpine with no residual stenosis Anesthesia Type: Conscious Sedation Estimated blood loss (mL): 20 ml Contrast Amount: 43 ml Post-Procedure Diagnosis Post-operative diagnosis: CAD ERICA BOWMAN MD Aug 04, 2016 10:55
[2016-08-04] MEDS ORDERED: PATIENT MAY USE OWN MEDS, ALL PO SCH (11:00)
[2016-08-04] MEDS ORDERED: NON-FORMULARY MEDICATION 1 EA EA (Dulaglutide (Trulicity) 0.75 MG) SQ SCH (11:00)
--- NOTE | 2016-08-04 13:54 | CARDIAC CATHETERIZATION ---
DATE OF SERVICE: 08/04/2016 CARDIAC CATHETERIZATION REFERRING PHYSICIAN: Jose Antonio Patel MD, [facility]. BRIEF HISTORY: The patient is a 50-year-old gentleman with history of coronary artery disease, stent to the LAD, underwent emergency angioplasty and stenting to the right coronary artery. The patient has underlying renal failure. He was seen by relationship consultant and cleared for intervention with plan to hydrate him well pre and post procedure with the use of minimal amount of contrast. PROCEDURE NOTE: After explaining the procedure to the patient, all pros and cons were explained, all questions were answered. The patient signed a consent, then he was placed on the cardiac catheterization laboratory. Right groin was prepped in a sterile fashion. Local anesthesia applied to the right groin. A 6-[place] sheath was placed in the right femoral artery with difficulties. At the end of the procedure, Mynx device failed to deploy. Manual pressure applied. I advanced FR guide to the right coronary artery. Angiogram was done. Then, I placed a BMW wire in the right coronary artery. Angiogram showed 70% to 80% stenosis. Pre-dilatation with 3.0 x 15 mm balloon, then I tried to advance a 3.5 x 23 mm XIENCE Alpine stent without success in crossing the lesion. I advanced a second BMW wire as a chloe wire, then I was able to advance the stent with difficulties. Then, stent was deployed under 12 atmosphere increased at the end to 14 atmosphere. Intracoronary nitroglycerin was given. Angiogram showed excellent results with no residual stenosis. Total contrast used was 43 mL. Total radiation dose is 1110 mGy. Hemostasis achieved. FINDINGS: Right coronary artery has 70% to 80% stenosis, complex intervention using chloe wire with deployment of 3.5 x 23 mm drug-eluting stent XIENCE Alpine expanded to 3.7 mm with excellent result, no residual stenosis. Manual pressure applied due to failure of Mynx device. CONCLUSION: Successful complex stenting to the right coronary artery using XIENCE Alpine 3.5 x 23 mm, expanded to 3.7 mm with excellent results. No residual stenosis. FINAL DIAGNOSES: 1. Coronary artery disease. 2. Hypertension. 3. Hyperlipidemia. 4. Diabetes mellitus. Job ID: [id number] DocumentID: [id number] Dictated Date: 08/04/2016 11:02:09 Apparel Cutter Date: 08/04/2016 12:46:25 Dictated By: ERICA BOWMAN MD
[2016-08-04] MEDS ORDERED: inSUlin DETERMIR 1 UNIT/0.01 ML (LEVEMIR) CHARGE PER UNIT SQ ONE (14:34)
[2016-08-04] MEDS: inSUlin ASPART (NovoLOG) 1 UNIT/0.01 ML (CHARGE PER UNIT) SQ SCH ×2 (14:43→19:22)
[2016-08-04] MEDS: inSUlin DETERMIR 1 UNIT/0.01 ML (LEVEMIR) CHARGE PER UNIT SQ SCH ×2 (14:44→20:59)
[2016-08-04] MEDS ORDERED: inSUlin DETERMIR 1000 UNITS/10 ML VIAL (LEVEMIR) SQ SCH (21:00)
[2016-08-04] MEDS ORDERED: CLOPIDOGREL 75 MG (PLAVIX) TABLET PO SCH (21:00)
[2016-08-04] MEDS ORDERED: ASPIRIN E.C. 81 MG (ECOTRIN) TAB PO SCH (21:00)
[2016-08-04] MEDS ORDERED: NON-FORMULARY MEDICATION 1 EA EA (Omeprazole 40 MG) PO SCH (21:00)
[2016-08-04] MEDS ORDERED: SEROQUEL 100 MG PO SCH (21:00)
[2016-08-04] MEDS ORDERED: ATORVASTATIN 10 MG (LIPITOR) TABLET PO SCH (21:00)
[2016-08-04] MEDS ORDERED: meTOproloL SUCCINATE 50 MG (TOPROL XL) TAB PO SCH (21:00)
[2016-08-04] MEDS ORDERED: PANTOPRAZOLE 40 MG (PROTONIX) TAB PO SCH (21:00)
[2016-08-04] MEDS ORDERED: QUEtiapine 100 MG (SEROquel) TAB IMMEDIATE RELEASE PO SCH (21:00)
[2016-08-05] VITALS: BP 128/53
[2016-08-05] MEDS: NS IV 1000 ML 1,000 ML IV SCH (00:46)
[2016-08-05 03:48] LABS: MEAN PLATELET VOLUME 9.9 FL (7.4-10.4); RED BLOOD COUNT 4.06 10^6/uL (4.35-5.85); RED CELL DISTRIBUTION WIDTH 16.1 % (10.0-14.5); WHITE BLOOD COUNT 13.8 10^3/uL (4.3-11.0)
[2016-08-05 04:00] VITALS: BP 166/75
[2016-08-05 04:07] LABS: CALCIUM 8.4 MG/DL (8.5-10.1); CREATININE SERUM 2.03 MG/DL (0.60-1.30); POTASSIUM 3.9 MMOL/L (3.6-5.0)
--- NOTE | 2016-08-05 07:48 | Discharge Inst-Post CATH ---
Discharge Inst-CATH Post Cardiac Cath D/C Inst Follow Up/Plan Appointment with Dr. Valadez's office in 2-4 weeks CARDIAC CATH DISCHARGE INSTRUCTIONS *Hold Metformin for 48 hours post heart cath. ACTIVITY * Go Home directly and rest. * Limit activity of the leg (or wrist if it was used) for 7 days including aerobics, swimming, jogging, bicycling, etc. * Restrict stair-climbing for 7 days if possible, if not, climb up with your non -cath leg, then bring together on the same step. * Avoid lifting, pushing, pulling or excessive movement of the affected extremity for 7 days. * Customary sexual activity may be resumed after 2 days-use caution not to use a position that strains or causes pain to the affected extremity. * No driving for 24 hours. * NO SMOKING. * Avoid straining for bowel movements for 7 days. * Gentle walking on level ground is allowed. * Returning to work will depend on the type of procedure and the results. Your doctor will discuss this with you. CALL YOUR DOCTOR FOR ANY OF THE FOLLOWING: *If bleeding from the puncture site occurs- Apply gentle pressure to site with clean cloth and call your doctor or EMS. * If a knot or lump forms under the skin, increases in size, or causes pain. * If bruising appears to be worsening or moving further down your leg instead of disappearing. * Temperature above 101 F. CARE OF YOUR GROIN INCISION; * Bruising or purple discoloration of the skin near the puncture site is common. * You may shower only, no bathtub bathing for 5 days. Be careful to avoid slipping as your leg may feel stiff. * If a closure device was used on your femoral artery, please see the attached guide regarding care of the device and your leg. * REMOVE the dressing from your groin the next day after your procedure in the shower. CARE OF YOUR WRIST INCISION; * Bruising or purple discoloration of the skin near the puncture site is common. * You may shower. * DO NOT submerge wrist. * Remove dressing in 24 hours. ERICA VALADEZ MD Aug 05, 2016 07:48
--- NOTE | 2016-08-05 07:50 | Cardiology Progress Note ---
Subjective Date Seen by Provider: Aug 05, 2016 Time Seen by Provider: 07:30 Subjective/Events-last exam patient is laying down in bed, groin is healed well. No hematoma, denied any chest pain or shortness of breath. No new complaint Review of Systems General: No Chills, No Night Sweats, No Fatigue, No Malaise, No Appetite, No Other HEENT: No Head Aches, No Visual Changes, No Eye Pain, No Ear Pain, No Dysphasia , No Sinus Congestion, No Post Nasal Drip, No Sore Throat, No Other Pulmonary: No Dyspnea, No Cough, No Pleuritic Chest Pain, No Other Cardiovascular: No: Chest Pain, Edema, Lt Headedness, Orthopnea, Other, Palpitations, Paroxysmal Noc. Dyspnea Objective-Cardiology Exam Last Set of Vital Signs Vital Signs Capillary Refill : NONE I&O Intake and Output 08/05/16 00:00 Intake Total 1612 ml Output Total 675 ml Balance 937 ml Intake Oral 612 ml IV Total 1000 ml Output Urine Total 675 ml # Voids 1 General: Alert, Oriented X3, Cooperative HEENT: Atraumatic, PERRLA Neck: Supple, No JVD, No Thyromegaly Lungs: Clear to Auscultation, Normal Air Movement Heart: Regular Rate, Normal S1, Normal S2, No Murmurs Abdomen: Normal Bowel Sounds, Soft, No Tenderness, No Hepatosplenomegaly, No Masses Extremities: No Clubbing, No Cyanosis, No Edema, Normal Pulses, No Tenderness/ Swelling Skin: No Rashes, No Breakdown, No Significant Lesion Neuro: Normal Gait, Normal Speech, Strength at 5/5 X4 Ext, Normal Tone, Sensation Intact Psych/Mental Status: Mental Status NL, Mood NL Results Lab Laboratory Tests 08/04/16 08:11 08/05/16 03:27 A/P-Cardiology Admission Diagnosis coronary artery disease Hypertension Hyperlipidemia Diabetes mellitus Assessment/Plan Coronary artery disease status post stent to the right coronary artery, history of stenting to the LAD done last month, recovering well Hypertension, controlled, continue current medication Hyperlipidemia, continue current medications Diabetes mellitus, followed and managed by primary care physician Acute on chronic renal insufficiency, improved with aggressive hydration, limited contrast exposure. ERICA BOWMAN MD Aug 05, 2016 07:50
[2016-08-05] MEDS: inSUlin DETERMIR 1 UNIT/0.01 ML (LEVEMIR) CHARGE PER UNIT SQ SCH (08:10)
[2016-08-05] MEDS: inSUlin ASPART (NovoLOG) 1 UNIT/0.01 ML (CHARGE PER UNIT) SQ SCH (08:10)
--- OUTSIDE RECORDS SUMMARY | 2016-08-16 09:59 | XMS REPORT | Continuity of Care Document ---
Author Author [facility] Address Unknown Phone Unavailable Allergies Active Description Code Type Severity Reaction Onset Reported/Identified Relationship to Patient Clinical Status Yes No Known Drug Allergies [id number] Drug Allergy Mild N/A 09/15/2008 Yes Actos [...] NOS 07/05/2009 Ot 414.01 CORONARY ATHEROSCLEROSIS OF [place] CORON 07/05/2009 Ot 574.20 CHOLELITHIASIS NOS 07/05/2009 Ot 577.0 ACUTE PANCREATITIS 07/05/2009 Ot 592.0 CALCULUS OF KIDNEY 07/05/2009 Ot 593.9 RENAL URETERAL DIS NOS 07/05/2009 Ot 794.39 ABN CARDIOVASC STUDY NEC 07/05/2009 Ot V12.79 PERSONAL HISTORY OTH SPEC DIGESTIVE SYST 07/05/2009 Ot V85.39 BODY MASS INDEX 39.0-39.9, ADULT 08/16/2009 Ot 414.00 CORON ATHEROSCLER NOS TYPE VESSEL, NATIV 08/16/2009 Ot 440.20 ATHEROSCLEROSIS [place] ARTERIES EXTREMIT 08/16/2009 Ot [address] [...] K 692.83 Dermatitis Due To Metals 02/03/2010 MERIRLL DO, CHARMAINE K 692.83 Dermatitis Due To [...] NOS 01/07/2011 Ot 414.01 CORONARY ATHEROSCLEROSIS OF [place] CORON 01/07/2011 Ot 786.50 CHEST PAIN NOS [...] CORONARY ATHEROSCLEROSIS OF UNSPECIFIED TYPE OF VESSEL [place] OR GRAFT 03/23/2012 CHARMAINE MERRILL DO 780.52 INSOMNIA UNSPECIFIED 03/23/2012 KATERIN MERRILL DOA K 791.0 MICROALBUMINURIA 03/23/2012 CHARMAINE MERRILL DO K V58.69 LONG-TERM (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 OTHER MEDICATIONS 03/23/2012 SARI MOJICA MD 414.00 CORONARY ATHEROSCLEROSIS OF UNSPECIFIED TYPE OF VESSEL [place] OR GRAFT 03/23/2012 SARI MOJICA MD 780.52 INSOMNIA UNSPECIFIED 03/23/2012 SARI MOJICA MD 791.0 MICROALBUMINURIA 03/23/2012 SARI MOJICA MD V58.69 LONG-TERM (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 OTHER MEDICATIONS 03/23/2012 CHARMAINE MERRILL DO 414.00 CORONARY ATHEROSCLEROSIS OF UNSPECIFIED TYPE OF VESSEL [place] OR GRAFT 03/23/2012 CHARMAINE MERRILL DO 780.52 INSOMNIA UNSPECIFIED 03/23/2012 KATERIN MERRILL DOA K 791.0 MICROALBUMINURIA 03/23/2012 GARFIELD MAURICIO CHARMAINE K V58.69 LONG-TERM (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 OTHER MEDICATIONS 03/23/2012 KATERIN MERRILL DOA K 414.00 CORONARY ATHEROSCLEROSIS OF UNSPECIFIED TYPE OF VESSEL [place] OR GRAFT 03/23/2012 GARFIELD MAURICIO CHARMAINE K 780.52 INSOMNIA UNSPECIFIED 03/23/2012 GARFIELD MAURICIO CHARMAINE K 791.0 MICROALBUMINURIA 03/23/2012 GARFIELD MAURICIO CHARMAINE K V58.69 LONG-TERM (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 OTHER MEDICATIONS 03/23/2012 MERRILL DO, CHARMAINE K 414.00 CORONARY ATHEROSCLEROSIS OF UNSPECIFIED TYPE OF VESSEL [place] OR GRAFT 03/23/2012 MERRILL DO, CHARMAINE K 780.52 INSOMNIA UNSPECIFIED 03/23/2012 MERRILL DO, CHARMAINE K 791.0 MICROALBUMINURIA 03/23/2012 MERRILL DO, CHARMAINE K V58.69 LONG-TERM (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 OTHER MEDICATIONS 03/23/2012 MERRILL DO, CHARMAINE K 414.00 CORONARY ATHEROSCLEROSIS OF UNSPECIFIED TYPE OF VESSEL [place] OR GRAFT 03/23/2012 MERRILL DO, CHARMAINE K 780.52 INSOMNIA UNSPECIFIED 03/23/2012 MERRILL DO, CHARMAINE K 791.0 MICROALBUMINURIA 03/23/2012 MERRILL DO, CHARMAINE K V58.69 LONG-TERM (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 OTHER MEDICATIONS 03/23/2012 MERRILL DO, CHARMAINE K 414.00 CORONARY ATHEROSCLEROSIS OF UNSPECIFIED TYPE OF VESSEL [place] OR GRAFT 03/23/2012 MERRILL DO, CHARMAINE K 780.52 INSOMNIA UNSPECIFIED 03/23/2012 MERRILL DO, CHARMAINE K 791.0 MICROALBUMINURIA 03/23/2012 MERRILL DO, CHARMAINE K V58.69 LONG-TERM (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 OTHER MEDICATIONS 03/23/2012 MERRILL DO, CHARMAINE K 414.00 CORONARY ATHEROSCLEROSIS OF UNSPECIFIED TYPE OF VESSEL [place] OR GRAFT 03/23/2012 MERRILL DO, CHARMAINE K 780.52 INSOMNIA UNSPECIFIED 03/23/2012 MERRILL DO, CHARMAINE K 791.0 MICROALBUMINURIA 03/23/2012 MERRILL DO, CHARMAINE K V58.69 LONG-TERM (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 OTHER MEDICATIONS 03/23/2012 MERRILL DO, CHARMAINE K 414.00 CORONARY ATHEROSCLEROSIS OF UNSPECIFIED TYPE OF VESSEL [place] OR GRAFT 03/23/2012 MERRILL DO, CHARMAINE K 780.52 INSOMNIA UNSPECIFIED 03/23/2012 MERRILL DO, CHARMAINE K 791.0 MICROALBUMINURIA 03/23/2012 MERRILL DO, CHARMAINE K V58.69 LONG-TERM (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 OTHER MEDICATIONS 03/23/2012 MERRILL DO, CHARMAINE K 414.00 CORONARY ATHEROSCLEROSIS OF UNSPECIFIED TYPE OF VESSEL [place] OR GRAFT 03/23/2012 MERRILL DO, CHARMAINE K 780.52 INSOMNIA UNSPECIFIED 03/23/2012 MERRILL DO, CHARAMINE K 791.0 MICROALBUMINURIA 03/23/2012 MERRILL DO, CHARMAINE K V58.69 LONG-TERM (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 OTHER MEDICATIONS 03/23/2012 MERRILL CHARMAINE MAURICIO 414.00 CORONARY ATHEROSCLEROSIS OF UNSPECIFIED TYPE OF VESSEL [place] OR GRAFT 03/23/2012 MERRILL CHARMAINE MAURICIO 780.52 [...] ST 03/27/2012 Ot 414.01 CORONARY ATHEROSCLEROSIS OF [place] CORON 03/27/2012 Ot 585.9 CHRONIC KIDNEY DISEASE, UNSPECIFIED 03/27/2012 Ot 787.01 NAUSEA WITH VOMITING 03/27/2012 Ot 789.09 ABDOMINAL PAIN, OTHER SPECIFIED SITE 03/27/2012 Ot V45.82 PERCUTANEOUS TRANSLUM CORON ANGIOPLASTY 06/05/2012 Ot 250.00 DIAB MIHAELA WO COMPL, TYPE II OR UNSPEC TY 06/05/2012 Ot 274.9 GOUT NOS 06/05/2012 Ot 414.01 CORONARY ATHEROSCLEROSIS OF [place] CORON 06/05/2012 Ot 593.9 RENAL URETERAL DIS [...] MICHAEL MD Ot 414.01 CORONARY ATHEROSCLEROSIS OF [place] CORON 04/19/2013 ARIELLE MICHAEL MD Ot 574.20 [...] K 274.9 GOUT UNSPECIFIED 06/11/2013 MERRILL DO, CAHRMAINE K 274.9 GOUT UNSPECIFIED 06/11/2013 MERRILL DO, [...] ANGELIA CHAMORRO DO Ot I70.201 UNSP ATHSCL [place] ARTERIES OF [facility] 01/12/2015 ANGELIA CHAMORRO DO Ot M77.31 CALCANEAL SPUR, RIGHT FOOT 01/12/2015 ANGELIA CHAMORRO DO Ot Z79.4 SEMAPHORE OPERATOR (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 01/12/2015 ANGELIA CHAMORRO DO Ot Z79.899 OTHER FDC (CURRENT) DRUG THERAPY 01/14/2015 Ot 414.01 01/14/2015 Ot 786.50 01/14/2015 Ot 414.9 01/14/2015 Ot 786.50 01/14/2015 AMI MEZA MD Ot 717.5 01/14/2015 VINCE MEJIA MD (DDU) Ot V68.01 01/14/2015 VINCE MEJIA MD (DDU) Ot V82.89 01/14/2015 MARIA TERESA ROD MD (DDU) Ot V68.01 01/14/2015 MARIA TERESA ROD MD (DDU) Ot V82.89 06/27/2015 Ot 414.01 CORONARY ATHEROSCLEROSIS OF [place] CORON 06/27/2015 Ot 786.50 CHEST PAIN NOS [...] CONDITIONS 06/28/2015 Ot 414.01 CORONARY ATHEROSCLEROSIS OF [place] CORON 06/28/2015 Ot 786.50 CHEST PAIN NOS [...] DISABILITY EXAMINATION 06/28/2015 MARIA TERESA ROD MD ([facility]) Ot V82.89 SCREEN FOR OTH SPECIF [...] ADULT 06/28/2015 KAYA TADEO MD Ot Z79.4 FDC (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 06/28/2015 KAYA TADEO [...] ADULT 06/28/2015 KAYA TADEO MD Ot Z79.4 FDC (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 06/28/2015 KAYA TADEO MD Ot Z91.14 PATIENT'S OTHER NONCOMPLIANCE WITH MEDIC 06/30/2015 Ot 414.01 CORONARY ATHEROSCLEROSIS OF [place] CORON 06/30/2015 Ot 786.50 CHEST PAIN NOS [...] URETER 08/20/2015 Ot 414.01 CORONARY ATHEROSCLEROSIS OF [place] CORON 08/20/2015 Ot 786.50 CHEST PAIN NOS [...] CONDITIONS 08/20/2015 Ot 414.01 CORONARY ATHEROSCLEROSIS OF [place] CORON 08/20/2015 Ot 786.50 CHEST PAIN NOS [...] CONDITIONS 09/29/2015 Ot 414.01 CORONARY ATHEROSCLEROSIS OF [place] CORON 09/29/2015 Ot 786.50 CHEST PAIN NOS [...] UNSPECIFIED 01/02/2016 ROSALIE BURDICK MD Ot Z79.4 FDC (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 01/02/2016 ROSALIE BURDICK MD Ot Z79.84 FDC (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 ORAL HYPOGLYC 01/02/2016 ROSALIE BURDICK MD Ot Z79.899 OTHER SEMAPHORE OPERATOR (CURRENT) DRUG THERAPY 01/02/2016 Ot 414.9 CHR [...] STATUS 01/09/2016 JOS QUIROZ DO, Ot Z79.4 FDC (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 01/09/2016 JOS QUIROZ DO, Ot Z79.899 OTHER FDC (CURRENT) DRUG THERAPY 01/10/2016 ROSALIE BURDICK MD [...] UNSPECIFIED 01/10/2016 ROSALIE BURDICK MD, Ot Z79.4 SEMAPHORE OPERATOR (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 01/10/2016 ROSALIE BURDICK MD, Ot Z79.84 FDC (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 ORAL HYPOGLYC 01/10/2016 ROSALIE BURDICK MD, Ot Z79.899 OTHER SEMAPHORE OPERATOR (CURRENT) DRUG THERAPY 01/12/2016 JOS QUIROZ DO, [...] STATUS 01/12/2016 JOS QUIROZ DO, Ot Z79.4 SEMAPHORE OPERATOR (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 01/12/2016 JOS QUIROZ DO, Ot Z79.899 OTHER SEMAPHORE OPERATOR (CURRENT) DRUG THERAPY 02/24/2016 SAMSON SMITH MD [...] KNEE 02/24/2016 SAMSON SMITH MD Ot Z79.4 SEMAPHORE OPERATOR (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 02/24/2016 SAMSON SMITH MD Ot Z79.899 OTHER FDC (CURRENT) DRUG THERAPY 03/12/2016 BENJAMIN ANAND APRN Ot E11.9 TYPE 2 DIABETES MELLITUS WITHOUT COMPLIC 03/12/2016 BENJAMIN ANAND GROCERY TEAM MEMBER Ot I10 ESSENTIAL (PRIMARY) HYPERTENSION 03/12/2016 BENJAMIN ANAND GROCERY TEAM MEMBER Ot L03.115 CELLULITIS OF RIGHT LOWER LIMB 03/12/2016 BENJAMIN ANAND GROCERY TEAM MEMBER Ot R22.41 LOCALIZED SWELLING, MASS AND LUMP, RIGHT 03/12/2016 BENJAMIN ANAND APRN Ot Z79.4 SEMAPHORE OPERATOR (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 03/12/2016 BENJAMIN ANAND APRN Ot Z79.899 OTHER SEMAPHORE OPERATOR (CURRENT) DRUG THERAPY 03/12/2016 BENJAMIN ANAND APRN Ot Z95.5 PRESENCE OF CORONARY ANGIOPLASTY IMPLANT 03/15/2016 BENJAMIN ANAND GROCERY TEAM MEMBER Ot E11.9 TYPE 2 DIABETES MELLITUS WITHOUT COMPLIC 03/15/2016 BENJAMIN ANAND APRN Ot I10 ESSENTIAL (PRIMARY) HYPERTENSION 03/15/2016 BENJAMIN ANAND GROCERY TEAM MEMBER Ot L03.115 CELLULITIS OF RIGHT LOWER LIMB 03/15/2016 BENJAMIN ANAND GROCERY TEAM MEMBER Ot R22.41 LOCALIZED SWELLING, MASS AND LUMP, RIGHT 03/15/2016 BENJAMIN ANAND APRN Ot Z79.4 FDC (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 03/15/2016 BENJAMIN ANAND APRN Ot Z79.899 OTHER FDC (CURRENT) DRUG THERAPY 03/15/2016 BENJAMIN ANAND APRN Ot Z95.5 PRESENCE OF CORONARY ANGIOPLASTY IMPLANT 03/18/2016 MIKHAIL ARCHIBALDP Ot E11.9 TYPE 2 DIABETES MELLITUS WITHOUT COMPLIC 03/18/2016 MIKHAIL ARCHIBALD PAYROLL TECHNICIAN Ot F17.210 NICOTINE DEPENDENCE, CIGARETTES, UNCOMPL 03/18/2016 MIKHAIL ARCHIBALD PAYROLL TECHNICIAN Ot I10 ESSENTIAL (PRIMARY) HYPERTENSION 03/18/2016 MIKHAIL ARCHIBALD PAYROLL TECHNICIAN Ot L03.115 CELLULITIS OF RIGHT LOWER LIMB 03/18/2016 MIKHAIL ARCHIBALDP Ot M79.671 PAIN IN RIGHT FOOT 03/18/2016 MIKHAIL ARCHIBALDP Ot Z79.4 FDC (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 03/18/2016 MIKHAIL ARCHIBALDP Ot Z79.899 OTHER FDC (CURRENT) DRUG THERAPY 03/18/2016 MIKHAIL ARCHIBALD PAYROLL TECHNICIAN Ot Z95.5 PRESENCE OF CORONARY ANGIOPLASTY IMPLANT 03/19/2016 MIKHAIL ARCHIBALD PAYROLL TECHNICIAN Ot E11.9 TYPE 2 DIABETES MELLITUS WITHOUT COMPLIC 03/19/2016 DRAGAN, MIKHAIL PAYROLL TECHNICIAN Ot F17.210 NICOTINE DEPENDENCE, CIGARETTES, UNCOMPL 03/19/2016 DRAGAN, MIKHAIL PAYROLL TECHNICIAN Ot I10 ESSENTIAL (PRIMARY) HYPERTENSION 03/19/2016 DRAGAN, MIKHAIL PAYROLL TECHNICIAN Ot L03.115 CELLULITIS OF RIGHT LOWER LIMB 03/19/2016 DRAGAN, MIKHAIL PAYROLL TECHNICIAN Ot M79.671 PAIN IN RIGHT FOOT 03/19/2016 DRAGAN, MIKHAIL PAYROLL TECHNICIAN Ot Z79.4 SEMAPHORE OPERATOR (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 03/19/2016 DRAGAN, MIKHAIL PAYROLL TECHNICIAN Ot Z79.899 OTHER SEMAPHORE OPERATOR (CURRENT) DRUG THERAPY 03/19/2016 DRAGAN, MIKHAIL PAYROLL TECHNICIAN Ot Z95.5 PRESENCE OF CORONARY ANGIOPLASTY IMPLANT 03/24/2016 DRAGAN, MIKHAIL PAYROLL TECHNICIAN Ot E11.9 TYPE 2 DIABETES MELLITUS WITHOUT COMPLIC 03/24/2016 DRAGAN, MIKHAIL PAYROLL TECHNICIAN Ot F17.210 NICOTINE DEPENDENCE, CIGARETTES, UNCOMPL 03/24/2016 DRAGAN, MIKHAIL PAYROLL TECHNICIAN Ot I10 ESSENTIAL (PRIMARY) HYPERTENSION 03/24/2016 DRAGAN, MIKHAIL PAYROLL TECHNICIAN Ot L03.115 CELLULITIS OF RIGHT LOWER LIMB 03/24/2016 DRAGAN, MIKHAIL PAYROLL TECHNICIAN Ot M79.671 PAIN IN RIGHT FOOT 03/24/2016 DRAGAN, MIKHAIL PAYROLL TECHNICIAN Ot Z79.4 SEMAPHORE OPERATOR (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 03/24/2016 DRAGAN, MIKHAIL PAYROLL TECHNICIAN Ot Z79.899 OTHER FDC (CURRENT) DRUG THERAPY 03/24/2016 DRAGAN, MIKHAIL PAYROLL TECHNICIAN Ot Z95.5 PRESENCE OF CORONARY ANGIOPLASTY IMPLANT 04/05/2016 ASHTYN DO, ANGELIA K Ot A59.03 TRICHOMONAL CYSTITIS AND URETHRITIS 04/05/2016 ASHTYN DO, ANGELIA K Ot E11.9 TYPE 2 DIABETES MELLITUS WITHOUT COMPLIC 04/05/2016 ASHTYN DO, ANGELIA K Ot F17.210 NICOTINE DEPENDENCE, CIGARETTES, UNCOMPL 04/05/2016 ASHTYN DO, ANGELIA K Ot I12.9 HYPERTENSIVE CHRONIC KIDNEY DISEASE W ST 04/05/2016 ASHTYN DO, ANGELIA K Ot M10.9 GOUT, UNSPECIFIED 04/05/2016 ASHTYN DO, ANGELIA K Ot N18.9 CHRONIC KIDNEY DISEASE, UNSPECIFIED 04/05/2016 ASHTYN DO, ANGELIA K Ot R10.13 EPIGASTRIC PAIN 04/05/2016 ASHTYN DO, ANGELIA K Ot R11.2 NAUSEA WITH VOMITING, UNSPECIFIED 04/05/2016 ASHTYN ANGELIA MAURICIO Ot R19.7 DIARRHEA, UNSPECIFIED 04/05/2016 ASHTYN ANGELIA MAURICIO Ot Z79.4 SEMAPHORE OPERATOR (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 04/05/2016 ANGELIA CHAMORRO DO K Ot Z79.899 OTHER SEMAPHORE OPERATOR (CURRENT) DRUG THERAPY 04/05/2016 ASHTYNANGELIA Toscano DO Ot Z95.5 PRESENCE OF CORONARY ANGIOPLASTY IMPLANT 06/05/2016 ERICA BOWMAN MD Ot E11.22 TYPE 2 DIABETES MELLITUS W DIABETIC 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 06/05/2016 ERICA BOWMAN MD, Ot E66.9 OBESITY, UNSPECIFIED 06/05/2016 ERICA BOWMAN MD, Ot E78.5 HYPERLIPIDEMIA, UNSPECIFIED 06/05/2016 ERICA BOWMAN MD, Ot I12.9 HYPERTENSIVE CHRONIC KIDNEY DISEASE W ST 06/05/2016 ERICA BOWMAN MD Ot I25.110 ATHSCL HEART DISEASE OF [place] COR ART W 06/05/2016 ERICA BOWMAN MD, Ot N18.9 CHRONIC KIDNEY DISEASE, UNSPECIFIED 06/05/2016 ERICA BOWMAN MD, Ot T82.855A STENOSIS OF CORONARY ARTERY STENT, INITI 06/05/2016 ERICA BOWMAN MD, Ot Z68.38 BODY MASS INDEX (BMI) 38.0-38.9, ADULT 06/05/2016 ERICA BOWMAN MD Ot Z72.0 TOBACCO USE 06/05/2016 ERICA BOWMAN MD, Ot Z79.84 SEMAPHORE OPERATOR (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 ORAL HYPOGLYC 06/05/2016 ERICA BOWMAN MD, Ot Z79.899 OTHER FDC (CURRENT) DRUG THERAPY 06/07/2016 Ot 414.9 CHR ISCHEMIC HRT DIS NOS 06/07/2016 Ot 786.50 CHEST PAIN NOS 06/07/2016 AMI MEZA MD Ot 717.5 DERANGEMENT MENISCUS NEC 06/07/2016 VINCE MEJIA MD (DDU) Ot V68.01 DISABILITY EXAMINATION 06/07/2016 VINCE MEJIA MD (PORFIRIOU) Ot V82.89 SCREEN FOR OTH SPECIF CONDITIONS 06/07/2016 MARIA TERESA ROD MD (DDU) Ot V68.01 DISABILITY EXAMINATION 06/07/2016 MARIA TERESA ROD MD (DDU) Ot V82.89 SCREEN FOR OTH SPECIF CONDITIONS 06/24/2016 ERICA BOWMAN MD Ot E11.22 TYPE 2 DIABETES MELLITUS W DIABETIC 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 MANAGER 06/24/2016 ERICA BOWMAN MD, Ot E66.9 OBESITY, UNSPECIFIED 06/24/2016 ERICA BOWMAN MD Ot E78.5 HYPERLIPIDEMIA, UNSPECIFIED 06/24/2016 ERICA BOWMAN MD Ot I12.9 HYPERTENSIVE CHRONIC KIDNEY DISEASE W ST 06/24/2016 ERICA BOWMAN MD Ot I25.110 ATHSCL HEART DISEASE OF [place] COR ART W 06/24/2016 ERICA BOWMAN MD, Ot N18.9 CHRONIC KIDNEY DISEASE, UNSPECIFIED 06/24/2016 ERICA BOWMAN MD, Ot T82.855A STENOSIS OF CORONARY ARTERY STENT, INITI 06/24/2016 ERICA BOWMAN MD, Ot Z68.38 BODY MASS INDEX (BMI) 38.0-38.9, ADULT 06/24/2016 ERICA BOWMAN MD, Ot Z72.0 TOBACCO USE 06/24/2016 ERICA BOWMAN MD, Ot Z79.84 SEMAPHORE OPERATOR (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 ORAL HYPOGLYC 06/24/2016 ERICA BOWMAN MD, Ot Z79.899 OTHER FDC (CURRENT) DRUG THERAPY 08/03/2016 DENISA FU Ot I25.10 ATHSCL HEART DISEASE OF [place] CORONARY 08/03/2016 DENISA FU Ot K21.9 GASTRO-ESOPHAGEAL REFLUX DISEASE WITHOUT 08/03/2016 DENISA FU Ot N18.9 CHRONIC KIDNEY DISEASE, UNSPECIFIED 08/03/2016 DENISA FU Ot R07.89 OTHER CHEST PAIN 08/04/2016 DENISA FU Ot I25.10 ATHSCL HEART DISEASE OF [place] CORONARY 08/04/2016 DENISA FU Ot K21.9 GASTRO-ESOPHAGEAL REFLUX DISEASE WITHOUT 08/04/2016 DENISA FU Ot N18.9 CHRONIC KIDNEY DISEASE, UNSPECIFIED 08/04/2016 DENISA FU Ot R07.89 OTHER CHEST PAIN 08/04/2016 Ot 414.9 CHR ISCHEMIC HRT DIS NOS 08/04/2016 Ot 786.50 CHEST PAIN NOS 08/04/2016 AMI MEZA MD Ot 717.5 DERANGEMENT MENISCUS NEC 08/04/2016 VINCE MEJIA MD (DDU) Ot V68.01 DISABILITY EXAMINATION 08/04/2016 VINCE MEJIA MD (DDU) Ot V82.89 SCREEN FOR OTH SPECIF CONDITIONS 08/04/2016 MARIA TERESA ROD MD (DDU) Ot V68.01 DISABILITY EXAMINATION 08/04/2016 MARIA TERESA ROD MD (DDU) Ot V82.89 SCREEN FOR OTH SPECIF CONDITIONS 08/04/2016 ERICA BOWMAN MD Ot E11.9 TYPE 2 DIABETES MELLITUS WITHOUT COMPLIC 08/04/2016 ERICA BOWMAN MD Ot E78.5 HYPERLIPIDEMIA, UNSPECIFIED 08/04/2016 ERICA BOWMAN MD Ot I10 ESSENTIAL (PRIMARY) HYPERTENSION 08/04/2016 ERICA BOWMAN MD, Ot I25.10 ATHSCL HEART DISEASE OF [place] CORONARY 08/04/2016 ERICA BOWMAN MD Ot R07.89 OTHER CHEST PAIN 08/04/2016 ERICA BOWMAN MD Ot R35.8 OTHER POLYURIA 08/04/2016 ERICA BOWMAN MD, Ot Z53.09 PROC/TRTMT NOT CARRIED OUT BECAUSE OF CO 08/04/2016 ERICA BOWMAN MD Ot Z72.0 TOBACCO USE 08/04/2016 ERICA BOWMAN MD Ot Z79.4 FDC (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 08/04/2016 ERICA BOWMAN MD, Ot Z79.899 OTHER SEMAPHORE OPERATOR (CURRENT) DRUG THERAPY 08/04/2016 ERICA BOWMAN MD Ot Z95.5 PRESENCE OF CORONARY ANGIOPLASTY IMPLANT 08/04/2016 DENISA FU Ot I25.10 ATHSCL HEART DISEASE OF [place] CORONARY 08/04/2016 DENISA FU Ot K21.9 GASTRO-ESOPHAGEAL REFLUX DISEASE WITHOUT 08/04/2016 DENISA FU Ot N18.9 CHRONIC KIDNEY DISEASE, UNSPECIFIED 08/04/2016 DENISA FU Ot R07.89 OTHER CHEST PAIN 08/05/2016 ANGELIA CHAMORRO DO Ot A59.03 TRICHOMONAL CYSTITIS AND URETHRITIS 08/05/2016 ASHTYN DO, ANGELIA K Ot E11.9 TYPE 2 DIABETES MELLITUS WITHOUT COMPLIC 08/05/2016 ASHTYN DO, ANGELIA K Ot F17.210 NICOTINE DEPENDENCE, CIGARETTES, UNCOMPL 08/05/2016 ASHTYN DO, ANGELIA K Ot I12.9 HYPERTENSIVE CHRONIC KIDNEY DISEASE W ST 08/05/2016 ASHTYN DO, ANGELIA K Ot M10.9 GOUT, UNSPECIFIED 08/05/2016 ASHTYN DO, ANGELIA K Ot N18.9 CHRONIC KIDNEY DISEASE, UNSPECIFIED 08/05/2016 ASHTYN DO, ANGELIA K Ot R10.13 EPIGASTRIC PAIN 08/05/2016 ASHTYN DO, ANGELIA K Ot R11.2 NAUSEA WITH VOMITING, UNSPECIFIED 08/05/2016 ASHTYN DO, ANGELIA K Ot R19.7 DIARRHEA, UNSPECIFIED 08/05/2016 ASHTYN DO, ANGELIA K Ot Z79.4 SEMAPHORE OPERATOR (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 08/05/2016 ASHTYN DO, ANGELIA K Ot Z79.899 OTHER SEMAPHORE OPERATOR (CURRENT) DRUG THERAPY 08/05/2016 ASHTYN DO, ANGELIA K Ot Z95.5 PRESENCE OF CORONARY ANGIOPLASTY IMPLANT 08/11/2016 ERICA BOWMAN MD Ot E11.9 TYPE 2 DIABETES MELLITUS WITHOUT COMPLIC 08/11/2016 ERICA BOWMAN MD Ot E78.5 HYPERLIPIDEMIA, UNSPECIFIED 08/11/2016 ERICA BOWMAN MD Ot I10 ESSENTIAL (PRIMARY) HYPERTENSION 08/11/2016 ERICA BOWMAN MD Ot I25.10 ATHSCL HEART DISEASE OF [place] CORONARY 08/11/2016 ERICA BOWMAN MD Ot R07.89 OTHER CHEST PAIN 08/11/2016 ERICA BOWMAN MD Ot R35.8 OTHER POLYURIA 08/11/2016 ERICA BOWMAN MD, Ot Z53.09 PROC/TRTMT NOT CARRIED OUT BECAUSE OF CO 08/11/2016 ERICA BOWMAN MD Ot Z72.0 TOBACCO USE 08/11/2016 ERICA BOWMAN MD, Ot Z79.4 FDC (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 08/11/2016 ERICA BOWMAN MD Ot Z79.899 OTHER SEMAPHORE OPERATOR (CURRENT) DRUG THERAPY 08/11/2016 ERICA BOWMAN MD Ot Z95.5 PRESENCE OF CORONARY ANGIOPLASTY IMPLANT 08/11/2016 DENISA FU Ot I25.10 ATHSCL HEART DISEASE OF [place] CORONARY 08/11/2016 DENISA FU Ot K21.9 GASTRO-ESOPHAGEAL REFLUX DISEASE WITHOUT 08/11/2016 DENISA FU Ot N18.9 CHRONIC KIDNEY DISEASE, UNSPECIFIED 08/11/2016 DENISA FU Ot R07.89 OTHER CHEST PAIN Procedures Code Description Performed By Performed On 00.40 07/04/2009 00.45 07/04/2009 00.66 07/04/2009 36.07 07/04/2009 88.56 07/04/2009 [id number] ROUTINE VENIPUNCTURE 03/23/2012 24749 A1C (IN-HOUSE) 68872 MICRO ALBUMIN-IN HOUSE 03/23/2012 50728 MICROALBUMIN 15065 CMP 03/23/2012 56972 LIPID PANEL 03/23 [id number] GFR CALC (RESULT ONLY) 03/23/2012 Cardiolog Rory Moreland 04/27/2012 20067 A1C (IN-HOUSE) 52367 ROUTINE VENIPUNCTURE 06/14/2013 68529 A1C (IN-HOUSE) 10777 MICRO ALBUMIN-IN HOUSE 06/14/2013 [id number] GFR CALC (RESULT ONLY) 06/14/2013 85492 CMP 06/14/2013 33439 LIPID PANEL 06/14 17772 MICROALBUMIN 15577 CMP 09/10/2013 87566 URIC ACID 2013 35869 [employer] 2013 16730 A1C (IN-HOUSE) 27058 JOINT INJECTION- LARGE JOINT (SPECIFY MEDCIN DESCRIPTION) 11/23/2013 38290 ROUTINE VENIPUNCTURE 02/11/2014 40461 CMP 02/11/2014 30172 A1C (IN-HOUSE) Results Test Result Range Complete [...] NRG Blood erythrocyte morphology finding identification NORMAL NRG Manual blood metamyelocytes/100 leukocytes 1 % NRG [...] NRG Blood erythrocyte morphology finding identification NORMAL NRG Whole blood basic metabolic panel - 03/12/16 [...] 04/04/16 22:40 Blood monocytes/100 leukocytes 5 % NRG Manual blood segmented neutrophils/100 leukocytes 79 % NRG Blood band neutrophils/100 leukocytes 17 % NRG Manual blood lymphocytes/100 leukocytes 2 % NRG Manual eosinophils/100 leukocytes in nose 0 % NRG Manual blood basophils/100 leukocytes 0 % NRG Blood erythrocyte morphology finding identification NORMAL [facility] Comprehensive metabolic panel - 04/04/16 22:40 [...] culture - 04/04/16 22:50 Bacterial blood culture NG NRG Bacterial blood culture - 04/04/16 22:50 Bacterial blood culture NG NRG Complete blood count (CBC) with automated [...] in VLDL measurement (mass/volume) 76 mg/dL 5-40 Automated blood complete blood count (hemogram) panel - 07/21/16 07:03 Blood leukocytes automated count (number/volume) 14.5 10*3/ uL 4.3-11.0 Blood erythrocytes automated count (number/volume) 4.63 10*6 /uL 4.35-5.85 Venous blood hemoglobin measurement (mass/volume) 12.5 g/dL 13.3-17.7 Blood hematocrit (volume fraction) 38 % 40-54 Automated erythrocyte mean corpuscular volume 83 [foz_us] 80-99 Automated erythrocyte mean corpuscular hemoglobin (mass per erythrocyte) 27 pg 25-34 Automated erythrocyte mean corpuscular hemoglobin concentration measurement ( mass/volume) 33 g/dL 32-36 Automated erythrocyte distribution width ratio 16.0 % 10.0-14.5 Automated blood platelet count (count/volume) 294 10*3/uL 130-400 Automated blood platelet mean volume measurement 9.8 [foz_us ] 7.4-10.4 Complete urinalysis with reflex to culture - 07/21/16 07:03 Urine color determination YELLOW NRG Urine clarity determination CLEAR NRG Urine pH measurement by test strip 6.5 5 -9 Specific gravity of urine by test strip [...] urinalysis with reflex to culture YES NRG PT panel in platelet poor plasma by coagulation assay - 07/21/16 07:03 Prothrombin time (PT) in platelet poor plasma by coagulation assay 12.5 s 12.2-14.7 INR in platelet poor plasma or blood by coagulation assay 1.0 0.8-1.4 Activated partial thromboplastin time (aPTT) in platelet poor plasma bycoagulation assay - 07/21/16 07:03 Activated partial thromboplastin time (aPTT) in platelet poor plasma bycoagulation assay 34 s 24-35 Comprehensive metabolic panel - 07/21/16 07:03 Serum or plasma sodium measurement (moles/volume) 139 mmol/ L 135-145 Serum or plasma potassium measurement (moles/volume) 4.0 mmol/L 3.6-5.0 Serum or plasma chloride measurement (moles/volume) 105 mmol /L 98-107 Carbon dioxide 21 mmol/L 21-32 Serum or plasma anion gap determination (moles/volume) 13 mmol/L 5-14 Serum or plasma urea nitrogen measurement (mass/volume) 38 mg/dL 7-18 Serum or plasma creatinine measurement (mass/volume) 3.09 mg /dL 0.60-1.30 Serum or plasma urea nitrogen/creatinine mass ratio 12 [facility] Serum or plasma creatinine measurement with calculation of estimated glomerular filtration rate 26 [facility] Serum or plasma glucose measurement (mass/volume) 208 mg/dL 70-105 Serum or plasma calcium measurement (mass/volume) 9.4 mg/dL 8.5-10.1 Serum or plasma total bilirubin measurement (mass/volume) 0.2 mg/dL 0.1-1.0 Serum or plasma alkaline phosphatase measurement (enzymatic activity/volume) 76 U/L 40-136 Serum or plasma aspartate aminotransferase measurement (enzymatic activity/ volume) 15 U/L 5-34 Serum or plasma alanine aminotransferase measurement (enzymatic activity/volume ) 11 U/L 0-55 Serum or plasma protein measurement (mass/volume) 7.3 g/dL 6.4-8.2 Serum or plasma albumin measurement (mass/volume) 3.7 g/dL 3.2-4.5 Lipid 1996 panel - 07/21/16 07:03 Serum or plasma triglyceride measurement (mass/volume) 668 mg/dL <150 Serum or plasma cholesterol measurement (mass/volume) 189 mg /dL < 200 Serum or plasma cholesterol in HDL measurement (mass/volume) 22 mg/dL 40-60 Cholesterol in LDL [mass/volume] in serum or plasma by direct assay 55 mg/dL 1-129 Serum or plasma cholesterol in VLDL measurement (mass/volume) 134 mg/dL 5-40 Urine protein/creatinine mass ratio - 07/21/16 07:03 Urine protein measurement (mass/volume) 295 mg/dL 6-12 Urine creatinine measurement (mass/volume) 112 mg/dL 30-125 Urine protein/creatinine mass ratio 2.63 NR Bacterial urine culture - 07/21/16 07:03 Bacterial urine culture [id number] NRG COLONY COUNT >100,000/ML NRG FTX;REPORTABLE SENSITIVITY NOT USUALLY PERFORMED FOR NRG FREE TEXT ENTRY 2 THIS ORGANISM. NR Methicillin resistant Staphylococcus aureus (MRSA) screening culture - 07:05 Methicillin resistant Staphylococcus aureus (MRSA) screening culture NEG NR Whole blood basic metabolic panel - 08/02/16 14:41 Serum or plasma sodium measurement (moles/volume) 139 mmol/ L 135-145 Serum or plasma potassium measurement (moles/volume) 4.0 mmol/L 3.6-5.0 Serum or plasma chloride measurement (moles/volume) 106 mmol /L 98-107 Carbon dioxide 22 mmol/L 21-32 Serum or plasma anion gap determination (moles/volume) 11 mmol/L 5-14 Serum or plasma urea nitrogen measurement (mass/volume) 18 mg/dL 7-18 Serum or plasma creatinine measurement (mass/volume) 2.25 mg /dL 0.60-1.30 Serum or plasma urea nitrogen/creatinine mass ratio 8 NRG Serum or plasma creatinine measurement with calculation of estimated glomerular filtration rate 38 NRG Serum or plasma glucose measurement (mass/volume) 278 mg/dL 70-105 Serum or plasma calcium measurement (mass/volume) 8.8 mg/dL 8.5-10.1 Complete urinalysis with reflex to culture - 08/04/16 08:05 Urine color determination YELLOW NRG Urine clarity determination SLIGHTLY CLOUDY NRG Urine pH measurement by test strip 6 5- 9 Specific gravity of urine by [...] detection in urine sediment by light microscopy 2-5 NRG Crystals detection in urine sediment by light microscopy NONE NRG Casts detection in urine sediment by light microscopy NONE NRG Mucus detection in urine sediment by light microscopy NEGATIVE NRG Complete urinalysis with reflex to culture YES NRG Bacterial urine culture - 08/04/16 08:05 Bacterial urine culture [id number] NRG COLONY COUNT >100,000/ML NRG FTX;REPORTABLE SENSITIVITY NOT USUALLY PERFORMED ON NRG FREE TEXT ENTRY 2 THIS ORGANISM. NRG Automated blood complete blood count (hemogram) panel - 08/04/16 08:11 Blood leukocytes automated count (number/volume) 12.9 10*3/ uL 4.3-11.0 Blood erythrocytes automated count (number/volume) 4.58 10*6 /uL 4.35-5.85 Venous blood hemoglobin measurement (mass/volume) 12.5 g/dL 13.3-17.7 Blood hematocrit (volume fraction) 38 % 40-54 Automated erythrocyte mean corpuscular volume 83 [foz_us] 80-99 Automated erythrocyte mean corpuscular hemoglobin (mass per erythrocyte) 27 pg 25-34 Automated erythrocyte mean corpuscular hemoglobin concentration measurement ( mass/volume) 33 g/dL 32-36 Automated erythrocyte distribution width ratio 16.3 % 10.0-14.5 Automated blood platelet count (count/volume) 265 10*3/uL 130-400 Automated blood platelet mean volume measurement 9.5 [foz_us ] 7.4-10.4 PT panel in platelet poor plasma by coagulation assay - 08/04/16 08:11 Prothrombin time (PT) in platelet poor plasma by coagulation assay 12.7 s 12.2-14.7 INR in platelet poor plasma or blood by coagulation assay 1.0 0.8-1.4 Activated partial thromboplastin time (aPTT) in platelet poor plasma bycoagulation assay - 08/04/16 08:11 Activated partial thromboplastin time (aPTT) in platelet poor plasma bycoagulation assay 30 s 24-35 Comprehensive metabolic panel - 08/04/16 08:11 Serum or plasma sodium measurement (moles/volume) 140 mmol/ L 135-145 Serum or plasma potassium measurement (moles/volume) 3.8 mmol/L 3.6-5.0 Serum or plasma chloride measurement (moles/volume) 106 mmol /L 98-107 Carbon dioxide 24 mmol/L 21-32 Serum or plasma anion gap determination (moles/volume) 10 mmol/L 5-14 Serum or plasma urea nitrogen measurement (mass/volume) 17 mg/dL 7-18 Serum or plasma creatinine measurement (mass/volume) 2.36 mg /dL 0.60-1.30 Serum or plasma urea nitrogen/creatinine mass ratio 7 NRG Serum or plasma creatinine measurement with calculation of estimated glomerular filtration rate 36 NRG Serum or plasma glucose measurement (mass/volume) 209 mg/dL 70-105 Serum or plasma calcium measurement (mass/volume) 9.0 mg/dL 8.5-10.1 Serum or plasma total bilirubin measurement (mass/volume) 0.2 mg/dL 0.1-1.0 Serum or plasma alkaline phosphatase measurement (enzymatic activity/volume) 77 U/L 40-136 Serum or plasma aspartate aminotransferase measurement (enzymatic activity/ volume) 18 U/L 5-34 Serum or plasma alanine aminotransferase measurement (enzymatic activity/volume ) 23 U/L 0-55 Serum or plasma protein measurement (mass/volume) 7.2 g/dL 6.4-8.2 Serum or plasma albumin measurement (mass/volume) 3.5 g/dL 3.2-4.5 Methicillin resistant Staphylococcus aureus (MRSA) screening culture - 08:11 Methicillin resistant Staphylococcus aureus (MRSA) screening culture NEG NRG Capillary blood glucose measurement by glucometer (mass/volume) - 08/04/16 19: 20 Capillary blood glucose measurement by glucometer (mass/volume) 103 mg/dL 70-110 Capillary blood glucose measurement by glucometer (mass/volume) - 08/04/16 20: 54 Capillary blood glucose measurement by glucometer (mass/volume) 102 mg/dL 70-110 Automated blood complete blood count (hemogram) panel - 08/05/16 03:27 Blood leukocytes automated count (number/volume) 13.8 10*3/ uL 4.3-11.0 Blood erythrocytes automated count (number/volume) 4.06 10*6 /uL 4.35-5.85 Venous blood hemoglobin measurement (mass/volume) 11.0 g/dL 13.3-17.7 Blood hematocrit (volume fraction) 34 % 40-54 Automated erythrocyte mean corpuscular volume 83 [foz_us] 80-99 Automated erythrocyte mean corpuscular hemoglobin (mass per erythrocyte) 27 pg 25-34 Automated erythrocyte mean corpuscular hemoglobin concentration measurement ( mass/volume) 33 g/dL 32-36 Automated erythrocyte distribution width ratio 16.1 % 10.0-14.5 Automated blood platelet count (count/volume) 250 10*3/uL 130-400 Automated blood platelet mean volume measurement 9.9 [foz_us ] 7.4-10.4 Whole blood basic metabolic panel - 08/05/16 03:27 Serum or plasma sodium measurement (moles/volume) 142 mmol/ L 135-145 Serum or plasma potassium measurement (moles/volume) 3.9 mmol/L 3.6-5.0 Serum or plasma chloride measurement (moles/volume) 110 mmol /L 98-107 Carbon dioxide 22 mmol/L 21-32 Serum or plasma anion gap determination (moles/volume) 10 mmol/L 5-14 Serum or plasma urea nitrogen measurement (mass/volume) 16 mg/dL 7-18 Serum or plasma creatinine measurement (mass/volume) 2.03 mg /dL 0.60-1.30 Serum or plasma urea nitrogen/creatinine mass ratio 8 NRG Serum or plasma creatinine measurement with calculation of estimated glomerular filtration rate 43 NRG Serum or plasma glucose measurement (mass/volume) 98 mg/dL 70-105 Serum or plasma calcium measurement (mass/volume) 8.4 mg/dL 8.5-10.1 Encounters ACCT No. Visit Date/Time Discharge Status Pt. Type Provider Facility Loc./Unit Complaint [id number] 02/11/2014 11:53:00 02/11/2014 23: 59:59 [facility] Outpatient CHARMAINE MERRILL DO [id number] 12/20/2013 00:00:00 12/20/2013 23: 59:59 [facility] Outpatient CHARMAINE MERRILL DO [id number] 11/23/2013 11:17:00 11/23/2013 23: 59:59 [facility] MERRILL DOCHARMAINE [id number] 10/12/2013 13:36:00 10/12/2013 23: 59:59 [facility] Outpatient MERRILL DOCHARMAINE [id number] 09/10/2013 08:26:00 09/10/2013 23: 59:59 [facility] Outpatient MERRILL DOCHARMAINE [id number] 06/14/2013 11:34:00 06/14/2013 23: 59:59 [facility] Outpatient MERRILL DOCHARMAINE [id number] 06/11/2013 16:49:00 06/11/2013 23: 59:59 [facility] Outpatient MERRILL DOCHARMAINE [id number] 05/08/2013 16:16:00 05/08/2013 23: 59:59 [facility] Outpatient MERRILL DOCHARMAINE [id number] 09/06/2012 10:39:00 09/06/2012 23: 59:59 [facility] Outpatient MERRILL DOCHARMAINE [id number] 04/12/2012 12:53:00 04/12/2012 23: 59:59 [facility] Outpatient GALINA KRAMER, SARI [id number] 03/23/2012 09:53:00 03/23/2012 23: 59:59 [facility] Outpatient MERRILL DOCHARMAINE [id number] 01/11/2012 14:51:00 01/11/2012 23: 59:59 [facility] Outpatient [id number] 07/08/2011 13:35:00 07/08/2011 23:59 :59 [facility] Outpatient SANA DEE DDS
== END 2016-08-05 09:05 | disposition home or self-care (01) ==
LOC: CATH 07:54 → ICU 11:21 → CATH 08-05 09:05
PROVIDERS: ATTEND Internal Medicine Cardiovascular Disease
DX: I25.10 Atherosclerotic heart disease of native coronary artery without angina pectoris (principal); N18.9 Chronic kidney disease, unspecified; E11.22 Type 2 diabetes mellitus with diabetic chronic kidney disease; I12.9 Hypertensive chronic kidney disease with stage 1 through stage 4 chronic kidney disease, or unspecified chronic kidney disease; E78.5 Hyperlipidemia, unspecified; K21.9 Gastro-esophageal reflux disease without esophagitis; E66.9 Obesity, unspecified; Z79.4 Long term (current) use of insulin; Z79.899 Other long term (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 therapy; Z72.0 Tobacco use; Z68.37 Body mass index [BMI] 37.0-37.9, adult; Z95.5 Presence of coronary angioplasty implant and graft
CPT/HCPCS: 36415; 71010; 80048; 80053; 81000; 82962; 85027; 85347; 85610; 85730; 87081; 87088; 93005

== ENCOUNTER → 2016-08-26 | Outpatient (CLI) | payer OTHER ==
[~2016-08-26] MED LIST changes: -HEParin (CATH LAB) 2,000 ML IV ONE; -NS IV 1000 ML 1,000 ML ONE
[2016-08-26 13:30] LABS: CALCIUM 9.5 MG/DL (8.5-10.1); CREATININE SERUM 2.97 MG/DL (0.60-1.30)
== END ==
LOC: LAB 12:36
PROVIDERS: ATTEND Internal Medicine Cardiovascular Disease
DX: I25.10 Atherosclerotic heart disease of native coronary artery without angina pectoris (principal); E78.2 Mixed hyperlipidemia; R07.89 Other chest pain; I10 Essential (primary) hypertension
CPT/HCPCS: 36415; 80048

== ENCOUNTER 2016-09-19 16:09 | Inpatient (IN) | payer OTHER ==
[~2016-09-19] VITALS: Ht 185.4 cm; Wt 126.6 kg
[2016-09-19 19:35] LABS: BASOPHILS # (AUTO) 0.1 10^3/uL (0.0-0.1); BASOPHILS % (AUTO) 0 % (0-10); EOSINOPHILS # (AUTO) 0.6 10^3/uL (0.0-0.3); EOSINOPHILS % (AUTO) 4 % (0-10); LYMPHOCYTES # (AUTO) 2.2 X 10^3 (1.0-4.0); LYMPHOCYTES % (AUTO) 14 % (12-44); MEAN CORPUSCULAR HEMOGLOBIN 28 PG (25-34); MEAN CORPUSCULAR HGB CONC 33 G/DL (32-36); MEAN CORPUSCULAR VOLUME 85 FL (80-99); MEAN PLATELET VOLUME 9.5 FL (7.4-10.4); MONOCYTES # (AUTO) 0.9 X 10^3 (0.0-1.0); MONOCYTES % (AUTO) 6 % (0-12); NEUTROPHILS # (AUTO) 11.8 X 10^3 (1.8-7.8); NEUTROPHILS % (AUTO) 76 % (42-75); PLATELET COUNT 371 10^3/uL (130-400); RED BLOOD COUNT 4.48 10^6/uL (4.35-5.85); RED CELL DISTRIBUTION WIDTH 16.9 % (10.0-14.5); WHITE BLOOD COUNT 15.5 10^3/uL (4.3-11.0)
[2016-09-19 19:49] LABS: BAND NEUTROPHILS 1 %; BASOPHILS % (MANUAL) 0 %; EOSINOPHILS % (MANUAL) 2 %; LYMPHOCYTES % (MANUAL) 19 %; NEUTROPHILS % (MANUAL) 76 %
[2016-09-19 19:54] LABS: ALBUMIN 3.7 GM/DL (3.2-4.5); BILIRUBIN,TOTAL 0.3 MG/DL (0.1-1.0); CALCIUM 9.4 MG/DL (8.5-10.1); POTASSIUM 4.2 MMOL/L (3.6-5.0); TOTAL PROTEIN 7.6 GM/DL (6.4-8.2); URIC ACID 5.1 MG/DL (2.6-7.2); hs C REACTIVE PROTEIN 3.7 MG/DL (0.00-0.50)
[2016-09-19 19:55] LABS: ERYTHROCYTE SEDIMENTATION RATE 71 MM/HR (0-15)
[2016-09-19] MEDS ORDERED: CLINDAMYCIN INJECTION 900 MG in NS (IVPB) 50 ML IV ONE (20:30)
[2016-09-19] MEDS ORDERED: methylPREDNISolone 125 MG (Solu-MEDROL) VIAL IVP ONE (20:30)
[2016-09-19 20:41] LABS: BILIRUBIN,URINE NEGATIVE (NEGATIVE); KETONES,URINE NEGATIVE (NEGATIVE); LEUKOCYTE ESTERASE ,URINE 1+ (NEGATIVE); NITRITE,URINE NEGATIVE (NEGATIVE); PH,URINE 7 (5-9); PROTEIN,URINE 4+ (NEGATIVE); UROBILINOGEN,URINE NORMAL (NORMAL)
--- NOTE | 2016-09-19 20:46 | Diagnostic Imaging Report ---
INDICATION: Knee pain. 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 Lateral view suggests a probable small joint effusion. A fracture dislocation is not identified. IMPRESSION: Probable joint effusion. No acute bony abnormality. Dictated by: Dictated on workstation # [id number]
[2016-09-19 20:51] LABS: CREATININE SERUM 2.83 MG/DL (0.60-1.30)
[2016-09-19] MEDS ORDERED: fentaNYL INJECTION 100 MCG/2 ML AMP IVP STA (21:34)
[2016-09-19 22:42] VITALS: BP 151/79
[2016-09-19] MEDS ORDERED: fentaNYL INJECTION 100 MCG/2 ML AMP IV PRN (23:45)
[2016-09-20] MEDS ORDERED: fentaNYL INJECTION 100 MCG/2 ML AMP IVP PRN (00:15)
[2016-09-20] MEDS ORDERED: QUEtiapine 100 MG (SEROquel) TAB IMMEDIATE RELEASE ONE (01:48)
[2016-09-20] MEDS: NS IV 1000 ML 1,000 ML IV SCH ×2 (01:59→14:13)
[2016-09-20 04:00] VITALS: BP 154/71
--- NOTE | 2016-09-20 04:14 | ED Lower Extremity ---
General Chief Complaint: Lower Extremity Stated Complaint: SEPTIC L KNEE JOINT; I.D.D.M; CHRONIC RENAL FAILUR Nursing Triage Note: PT STATES HE HAS HAD PROBLEMS WITH HIS L KNEE/ANKLE FOR A LONG TIME, STATES HE QUIT WORKING FOR A WHILE AND THE PAIN WENT AWAY BUT HAS STARTED WORKING RECENTLY AND HAS INCREASED PAIN, HE CANNOT PUT ANY WEIGHT ON IN. Nursing Sepsis Screen: No Definite Risk Source: patient (SOMEWHAT LIMITED HISTORIAN--WANTS FEMALE S.O. TO DO ALL TALKING FOR HIM), other (FEMALE S.O.) History of Present Illness Time seen by provider: 18:30 Initial Comments PT ARRIVES VIA POV ON [place] HAS HAD ONGOING PROBLEMS WITH LEFT KNEE SINCE 12/2015 HAS ALSO HAD PAIN IN BOTH KNEES, LEGS, FEET AND ANKLES--PAIN MOVES AROUND ORIGINALLY WAS FELT TO BE GOUT, AND TREATED WITH PREDNISONE AND SYMPTOMS GOT BETTER FOR A COUPLE OF DAYS, THEN PAIN RETURNED PAIN MOVED TO RIGHT LEG AND FOOT AND WAS DX WITH CELLULITIS AND TREATED WITH ANTIBIOTICS, AND SYMPTOMS IMPROVED, BUT FELT LIKE THE INFECTION NEVER WENT AWAY COMPLETELY WAS TREATED 1 1/2 MONTHS AGO AGAIN FOR CELLULITIS IN LEGS/FEET AND ALSO FOR GOUT --WITH BOTH ANTIBIOTICS AND GOUT MEDICATION, WITH IMPROVEMENT IN SYMPTOMS PT WAS OFF WORK FOR SEVERAL MONTHS FOR THESE PROBLEMS, AND PAIN WAS BETTER, THEN RECENTLY STARTED WORKING AGAIN AND PAIN HAS STARTED TO RETURN IN KNEES AND LEFT ANKLE, BUT HAS BEEN SEVERE IN LEFT KNEE FOR THE LAST COUPLE OF DAYS, AND HAS NOT BEEN ABLE TO BEAR WEIGHT AT ALL ON LEFT LEG, AND CANNOT BEND OR MOVE LEFT KNEE WITHOUT SEVERE PAIN --LEFT KNEE IS VERY SWOLLEN AND RED PT HAS HAD SUBJECTIVE FEVER AND CHILLS SINCE YESTERDAY PT HAS HISTORY OF PERIPHERAL NEUROPATHY, BUT STATES SINCE YESTERDAY HIS LEFT FOOT AND TOES ARE NUMB FROM THE ANKLE DOWN. NO KNOWN INJURY TO KNEE NO KNOWN OPEN SORES TO LEGS OR FEET. PCP:TORRI-TESFAYE, CRAFT CENTER DIRECTOR CHAPARRO MUJICA TRUCK SAFETY INSPECTOR: DR. BOWMAN Allergies and Home Medications Allergies Coded Allergies: No Known Drug Allergies (Unverified , 09/15/08) Home Medications Allopurinol 300 Mg Tablet, 300 MG PO HS, (Reported) Aspirin 81 Mg Tablet., 81 MG PO HS, (Reported) Atorvastatin Calcium 10 Mg Tablet, 10 MG PO HS, (Reported) Clopidogrel Bisulfate 75 Mg Tablet, 75 MG PO HS, (Reported) Dulaglutide 0.75 Mg/0.5 Ml Pen.injctr, 0.75 MG SQ WEEK, (Reported) Insulin Aspart 100 Unit/1 Ml Susp, 30 UNIT SQ AC, (Reported) Insulin Detemir 100 Unit/1 Ml Vial, 35 UNIT SQ BID, (Reported) Metoprolol Succinate 50 Mg Tab, 50 MG PO HS, (Reported) Omeprazole 40 Mg Capsule.dr, 40 MG PO HS, (Reported) Quetiapine Fumarate 50 Mg Tablet, 100-150 MG PO HS, (Reported) TAKES 2-3 (50 MG) TABLETS AT BEDTIME Constitutional: see HPI, chills, fever Respiratory: no symptoms reported Cardiovascular: no symptoms reported Gastrointestinal: no symptoms reported Genitourinary: no symptoms reported Musculoskeletal: see HPI Skin: no symptoms reported Psychiatric/Neurological: See HPI Past [id number] Hx Patient Social History Alcohol Use: Denies Use Recreational Drug Use: Yes (THC) Drug of Choice: cannibus Smoking Status: Current Everyday Smoker ( 1 PPD) Type Used: Cigarettes 2nd Hand Smoke Exposure: Yes Recent Foreign Travel: No Contact w/Someone Who Travel: No Recent Infectious Disease Expo: No Recent Hopitalizations: Yes Physical Abuse Screen: No Sexual Abuse: No Immunizations Up To Date Tetanus Booster (TDap): More than 5yrs PED Vaccines UTD: Yes Date of Influenza Vaccine: Dec 29, 2010 Seasonal Allergies Seasonal Allergies: No Surgeries HX Surgeries: Yes (CARDIAC CATHS-MULTIPLE STENTS) Surgeries: Abdominal, Cardiac, Coronary Stent, Gallbladder, Renal Respiratory Hx Respiratory Disorders: No Cardiovascular Hx Cardiac Disorders: Yes (MULTIPLE CARDIAC CATHS WITH MULTIPLE STENTS-MOST RECENT BEING 06/04/16, 07/21/16, 08/04/16) Cardiac Disorders: Coronary Artery Disease, High Cholesterol, Hypertension Neurological Hx Neurological Disorders: Yes (PERIPHERAL NEUROPATHY) Neurological Disorders: Neuropathy Reproductive System Hx Reproductive Disorders: No Sexually Transmitted Disease: No HIV/AIDS: No Genitourinary Hx Genitourinary Disorders: Yes (CHRONIC RENAL FAILURE/INSUFFICIENCY--HAS SEEN DAYCARE ASSISTANT X 1 ) Genitourinary Disorders: Kidney Stones, Renal Failure Gastrointestinal Hx Gastrointestinal Disorders: Yes (S/P ASHLEY) Gastrointestinal Disorders: Gastroesophageal Reflux, Gall Bladder Disease Musculoskeletal Hx Musculoskeletal Disorders: Yes (CHRONIC LEG, KNEE, ANKLE AND FOOT PAIN ) Musculoskeletal Disorders: Gout Endocrine Hx Endocrine Disorders: Yes Endocrine Disorders: Diabetes, Insulin dep HEENT HX ENT Disorders: No Cancer Hx Cancer: No Psychosocial Hx Psychiatric Problems: Yes Behavioral Health Disorders: Anxiety Integumentary HX Skin/Integumentary Disorder: No Blood Transfusions Hx Blood Disorders: No Adverse Reaction to a Blood Tr: No Family Medical History Family Medial History: Chest pain 03 MOTHER Family history: Arthritis 03 MOTHER Family history: Diabetes mellitus 03 MOTHER 09 BROTHER Family history: Gastrointestinal disease 03 MOTHER 09 BROTHER Family history: Thyroid disorder 03 MOTHER Headache 03 MOTHER Hypercholesterolemia 03 FATHER 03 MOTHER 09 BROTHER Myocardial infarction 03 FATHER 03 MOTHER No Family History of: Abdominal aortic aneurysm Broward's disease Alcoholism Aphasia Cancer Cancer of colon Cataract Congenital heart disease Congestive heart failure Cystic fibrosis Dementia Dysphagia Family history: Allergy Family history: Alzheimer's disease Family history: Asthma Family history: Breast disease Family history: Cardiovascular disease Family history: Coronary thrombosis Family history: Glaucoma Family history: Hypertension Family history: Osteoporosis Hearing loss Heart disease Hereditary disease History of - anemia History of - disorder History of - respiratory disease History of drug abuse Human immunodeficiency virus (HIV) seropositivity Kidney disease Malignant neoplasm of lung Parkinson's disease Prostate cancer Psychotic disorder Seizure disorder Stroke Tuberculosis Visual impairment Physical Exam Vital Signs Vital Sign - Last 12Hours 09/19/16 18:30 Temp 98.6 Pulse 97 Resp 16 B/P (MAP) 161/95 Capillary Refill : Less Than 3 Seconds General Appearance: other (LAYING WITH HAT PULLED DOWN OVER FACE AND BLANKET PULLED OVER HEAD) Cardiovascular: regular rate, rhythm, no murmur Respiratory: normal breath sounds Gastrointestinal: soft Legs: bilateral leg other (TRACE EDEMA BILATERALLY, WITH +1/4 DISTAL PULSES BILATERALLY. 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 publisher II-XII nml as tested, no motor/sensory deficits, alert, oriented x 3 Skin: warm/dry Progress/Results/Core Measures Results/Orders Lab Results Laboratory Tests Test 09/19/16 18:23 09/19/16 19:30 09/19/16 19:57 09/19/16 20:40 Range/Units Urine Color YELLOW Urine Clarity CLEAR Urine pH 7 5-9 Urine Specific [place] 1.010 L 1.016-1.022 Urine Protein 4+ NEGATIVE Urine Glucose (UA) 1+ H NEGATIVE Urine Ketones NEGATIVE NEGATIVE Urine Nitrite NEGATIVE NEGATIVE Urine Bilirubin NEGATIVE NEGATIVE Urine Urobilinogen NORMAL NORMAL MG/DL Urine Leukocyte Esterase 1+ H NEGATIVE Urine RBC (Auto) 2+ H NEGATIVE Urine RBC 5-10 H /HPF Urine WBC 10-25 H /HPF Urine Squamous Epithelial Cells 2-5 /HPF Urine Crystals NONE /LPF Urine Bacteria FEW H /HPF Urine Casts NONE /LPF Urine Mucus SMALL H /LPF Urine Culture Indicated YES Urine Opiates Screen NEGATIVE NEGATIVE Urine Oxycodone Screen NEGATIVE NEGATIVE Urine Methadone Screen NEGATIVE NEGATIVE Urine Propoxyphene Screen NEGATIVE NEGATIVE Urine Barbiturates Screen NEGATIVE NEGATIVE Ur Tricyclic Antidepressants Screen POSITIVE H NEGATIVE Urine Phencyclidine Screen NEGATIVE NEGATIVE Urine Amphetamines Screen NEGATIVE NEGATIVE Urine Methamphetamines Screen NEGATIVE NEGATIVE Urine Benzodiazepines Screen NEGATIVE NEGATIVE Urine Cocaine Screen NEGATIVE NEGATIVE Urine Cannabinoids Screen POSITIVE H NEGATIVE White Blood Count 15.5 H 4.3-11.0 10^3/uL Red Blood Count 4.48 4.35-5.85 10^6/uL Hemoglobin 12.4 L 13.3-17.7 G/DL Hematocrit 38 L 40-54 % Mean Corpuscular Volume 85 80-99 FL Mean Corpuscular Hemoglobin 28 25-34 PG Mean Corpuscular Hemoglobin Concent 33 32-36 G/DL Red Cell Distribution Width 16.9 H 10.0-14.5 % Platelet Count 371 130-400 10^3/uL Mean Platelet Volume 9.5 7.4-10.4 FL Neutrophils (%) (Auto) 76 H 42-75 % Lymphocytes (%) (Auto) 14 12-44 % Monocytes (%) (Auto) 6 0-12 % Eosinophils (%) (Auto) 4 0-10 % Basophils (%) (Auto) 0 0-10 % Neutrophils # (Auto) 11.8 H 1.8-7.8 X 10^3 Lymphocytes # (Auto) 2.2 1.0-4.0 X 10^3 Monocytes # (Auto) 0.9 0.0-1.0 X 10^3 Eosinophils # (Auto) 0.6 H 0.0-0.3 10^3/uL Basophils # (Auto) 0.1 0.0-0.1 10^3/uL Neutrophils % (Manual) 76 % Lymphocytes % (Manual) 19 % Monocytes % (Manual) 2 % Eosinophils % (Manual) 2 % Basophils % (Manual) 0 % Band Neutrophils 1 % Blood Morphology Comment NORMAL Erythrocyte Sedimentation Rate 71 H 0-15 MM/HR Sodium Level 139 135-145 MMOL/L Potassium Level 4.2 3.6-5.0 MMOL/L Chloride Level 103 98-107 MMOL/L Carbon Dioxide Level 21 21-32 MMOL/L Anion Gap 15 H 5-14 MMOL/L Blood Urea Nitrogen 28 H 7-18 MG/DL Creatinine 2.83 H 0.60-1.30 MG/DL Estimat Glomerular Filtration Rate 29 BUN/Creatinine Ratio 10 Glucose Level 222 H 70-105 MG/DL Uric Acid 5.1 2.6-7.2 MG/DL Calcium Level 9.4 8.5-10.1 MG/DL Total Bilirubin 0.3 0.1-1.0 MG/DL Aspartate Amino Transf (AST/SGOT) 11 5-34 U/L Alanine Aminotransferase (ALT/SGPT) 16 0-55 U/L Alkaline Phosphatase 89 40-136 U/L C-Reactive Protein High Sensitivity 3.70 H 0.00-0.50 MG/DL Total Protein 7.6 6.4-8.2 GM/DL Albumin 3.7 3.2-4.5 GM/DL Glucometer 211 H 70-110 MG/DL Lactic Acid Level 2.09 *H 0.50-2.00 MMOL/L My Orders Orders - ANGELIA CHAMORRO DO Accucheck Stat ONCE (09/19/16 18:38) Saline Lock/Iv-Start (09/19/16 18:38) Cbc With Automated Diff (09/19/16 18:38) Comprehensive Metabolic Panel (09/19/16 18:38) Hs C Reactive Protein (09/19/16 18:38) Erythrocyte Sedimentation Rate (09/19/16 18:38) Uric Acid (09/19/16 18:38) Manual Differential (09/19/16 19:30) Methylprednisolone Sod Succ (Solu-Medrol (09/19/16 20:30) Lactic Acid Analyzer (09/19/16 20:21) Blood Culture (09/19/16 20:21) Knee, Left, 3 Views (09/19/16 20:21) Clindamycin Injection (Cleocin Injection (09/19/16 20:30) Drug Screen Stat (Urine) (09/19/16 20:26) Ua Culture If Indicated (09/19/16 20:26) Urine Culture (09/19/16 18:23) Medications Given in ED Current Medications Medications Dose Ordered Sig/Augusto Route Start Time Stop Time Status Last Admin Dose Admin Clindamycin Phosphate 900 mg/ Sodium Chloride 56 ml @ 100 mls/hr ONCE ONCE IV 09/19/16 20:30 09/19/16 21:03 DC 09/19/16 21:03 100 MLS/HR Methylprednisolone Sodium Succinate 125 mg ONCE ONCE IVP 09/19/16 20:30 09/19/16 20:31 DC 09/19/16 20:42 125 MG Vital Signs/I&O Vital Sign - Last 12Hours 09/19/16 18:30 Temp 98.6 Pulse 97 Resp 16 B/P (MAP) 161/95 Blood Pressure Mean: 103 Point of Care Testing Finger Stick Blood Glucose: 211 Blood Glucose Action Taken: erp notified Progress Note : Progress Note PAIN EASED AT TIME OF ADMIT Diagnostic Imaging Comments XRAYS LEFT KNEE--NO ACUTE BONY INJURY, PROBABLE SMALL JOINT EFFUSION, PER RADIOLOGIST REPORT Reviewed: Reviewed by Me Departure Communication Progress Notes 2114--SPOKE WITH DR. MEJIA, ACCEPTS PT FOR ADMIT. 2118--SPOKE WITH DR. ROMAN FOR ORTHOPEDIC CONSULT, HE DOES NOT ADVISE ANY ADDITIONAL ANTIBIOTICS UNTIL KNEE CAN BE ASPIRATED TOMORROW Impression Impression: Primary Impression: LEFT KNEE PAIN, REDNESS AND SWELLING-R/O SEPTIC JOINT Additional Impressions: IDDM (insulin dependent diabetes mellitus) Hx of gout HX OF CELLULITIS TO LEGS AND FEET PERIPHERAL NEUROPTHY Urinary tract infection Disposition: ADMITTED INPATIENT Condition: Improved Decision to Admit Reason: Admit from ER (General) Decision to Admit/Date: Sep 19, 2016 Time/Decision to Admit Time: 21:15 Departure-Patient Inst. Referrals: CHAPARRO MUJICA (Family) Primary Care Physician SARI MOJICA MD (PCP) Primary Care Physician ANGELIA CHAMORRO DO Sep 20, 2016 04:14
[2016-09-20] MEDS ORDERED: inSUlin ASPART (NovoLOG) 1 UNIT/0.01 ML (CHARGE PER UNIT) SC SCH (06:00)
[2016-09-20 06:44] LABS: BASOPHILS % (AUTO) 0 % (0-10); EOSINOPHILS % (AUTO) 0 % (0-10); LYMPHOCYTES # (AUTO) 0.8 X 10^3 (1.0-4.0); LYMPHOCYTES % (AUTO) 5 % (12-44); MEAN CORPUSCULAR HEMOGLOBIN 28 PG (25-34); MEAN CORPUSCULAR HGB CONC 33 G/DL (32-36); MEAN CORPUSCULAR VOLUME 83 FL (80-99); MEAN PLATELET VOLUME 10.4 FL (7.4-10.4); MONOCYTES # (AUTO) 0.1 X 10^3 (0.0-1.0); MONOCYTES % (AUTO) 1 % (0-12); NEUTROPHILS # (AUTO) 13.7 X 10^3 (1.8-7.8); NEUTROPHILS % (AUTO) 94 % (42-75); PLATELET COUNT 378 10^3/uL (130-400); RED BLOOD COUNT 4.36 10^6/uL (4.35-5.85); RED CELL DISTRIBUTION WIDTH 16.2 % (10.0-14.5); WHITE BLOOD COUNT 14.6 10^3/uL (4.3-11.0)
[2016-09-20 07:00] LABS: ALBUMIN 3.3 GM/DL (3.2-4.5); BILIRUBIN,TOTAL 0.3 MG/DL (0.1-1.0); CREATININE SERUM 2.87 MG/DL (0.60-1.30); POTASSIUM 5.5 MMOL/L (3.6-5.0); TOTAL PROTEIN 7.1 GM/DL (6.4-8.2)
[2016-09-20 08:00] VITALS: BP 137/89
--- NOTE | 2016-09-20 08:04 | Consultation ---
History of Present Illness History of Present Illness Patient Consulted On(ellie/time) 09/20/16 07:59 Date Seen by Provider: Sep 20, 2016 Time Seen by Provider: 07:59 Reason for Visit: L knee pain History of Present Illness 51 yr old BM with severe L knee pain. Admits to low grade fevers and also a long history of gout and joint pain. Recently he has experienced severe RLE and R ankle pain as well. The pain "moves around" often. He has had similar episodes in his R knee and fluid aspirations have been done repeatedly on other occasions. He takes aspirin but denies lovenox or coumadin therapies. Allergies and Home Medications Allergies Coded Allergies: No Known Drug Allergies (Unverified , 09/15/08) Home Medications Allopurinol 300 Mg Tablet, 300 MG PO HS, (Reported) Aspirin 81 Mg Tablet.dr, 81 MG PO HS, (Reported) Atorvastatin Calcium 10 Mg Tablet, 10 MG PO HS, (Reported) Clopidogrel Bisulfate 75 Mg Tablet, 75 MG PO HS, (Reported) Dulaglutide 0.75 Mg/0.5 Ml Pen.injctr, 0.75 MG SQ WEEK, (Reported) Insulin Aspart 100 Unit/1 Ml Susp, 30 UNIT SQ AC, (Reported) Insulin Detemir 100 Unit/1 Ml Vial, 35 UNIT SQ BID, (Reported) Metoprolol Succinate 50 Mg Tab, 50 MG PO HS, (Reported) Omeprazole 40 Mg Capsule.dr, 40 MG PO HS, (Reported) Quetiapine Fumarate 50 Mg Tablet, 100-150 MG PO HS, (Reported) TAKES 2-3 (50 MG) TABLETS AT BEDTIME Past Moenxzx-Zatcjl-Oumili Hx Patient Social History Alcohol Use: Denies Use Recreational Drug Use: Yes (THC) Drug of Choice: cannibus Smoking Status: Current Everyday Smoker ( 1 PPD) Type Used: Cigarettes 2nd Hand Smoke Exposure: Yes Recent Foreign Travel: No Contact w/Someone Who Travel: No Recent Infectious Disease Expo: No Recent Hopitalizations: Yes Physical Abuse Screen: No Sexual Abuse: No Immunizations Up To Date Tetanus Booster (TDap): More than 5yrs PED Vaccines UTD: Yes Date of Influenza Vaccine: Dec 29, 2010 Seasonal Allergies Seasonal Allergies: No Surgeries HX Surgeries: Yes (CARDIAC CATHS-MULTIPLE STENTS) Surgeries: Abdominal, Cardiac, Coronary Stent, Gallbladder, Renal Respiratory Hx Respiratory Disorders: No Cardiovascular Hx Cardiac Disorders: Yes (MULTIPLE CARDIAC CATHS WITH MULTIPLE STENTS-MOST RECENT BEING 06/04/16, 07/21/16, 08/04/16) Cardiac Disorders: Coronary Artery Disease, High Cholesterol, Hypertension Neurological Hx Neurological Disorders: Yes (PERIPHERAL NEUROPATHY) Neurological Disorders: Neuropathy Reproductive System Hx Reproductive Disorders: No Sexually Transmitted Disease: No HIV/AIDS: No Genitourinary Hx Genitourinary Disorders: Yes (CHRONIC RENAL FAILURE/INSUFFICIENCY--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 ) Genitourinary Disorders: Kidney Stones, Renal Failure Gastrointestinal Hx Gastrointestinal Disorders: Yes (S/P ASHLEY) Gastrointestinal Disorders: Gastroesophageal Reflux, Gall Bladder Disease Musculoskeletal Hx Musculoskeletal Disorders: Yes (CHRONIC LEG, KNEE, ANKLE AND FOOT PAIN ) Musculoskeletal Disorders: Gout Endocrine Hx Endocrine Disorders: Yes Endocrine Disorders: Diabetes, Insulin dep HEENT HX ENT Disorders: No Cancer Hx Cancer: No Psychosocial Hx Psychiatric Problems: Yes Behavioral Health Disorders: Anxiety Integumentary HX Skin/Integumentary Disorder: No Blood Transfusions Hx Blood Disorders: No Adverse Reaction to a Blood Tr: No Family Medical History Family Medial History: Chest pain 03 MOTHER Family history: Arthritis 03 MOTHER Family history: Diabetes mellitus 03 MOTHER 09 BROTHER Family history: Gastrointestinal disease 03 MOTHER 09 BROTHER Family history: Thyroid disorder 03 MOTHER Headache 03 MOTHER Hypercholesterolemia 03 FATHER 03 MOTHER 09 BROTHER Myocardial infarction 03 FATHER 03 MOTHER No Family History of: Abdominal aortic aneurysm Niraj's disease Alcoholism Aphasia Cancer Cancer of colon Cataract Congenital heart disease Congestive heart failure Cystic fibrosis Dementia Dysphagia Family history: Allergy Family history: Alzheimer's disease Family history: Asthma Family history: Breast disease Family history: Cardiovascular disease Family history: Coronary thrombosis Family history: Glaucoma Family history: Hypertension Family history: Osteoporosis Hearing loss Heart disease Hereditary disease History of - anemia History of - disorder History of - respiratory disease History of drug abuse Human immunodeficiency virus (HIV) seropositivity Kidney disease Malignant neoplasm of lung Parkinson's disease Prostate cancer Psychotic disorder Seizure disorder Stroke Tuberculosis Visual impairment Review of Systems-General Constitutional: no symptoms reported Physical Exam-General Problems Physical Exam Vital Signs Vital Sign - Last 12Hours 09/19/16 09/19/16 18:30 22:12 Temp 98.6 Pulse 97 Resp 16 B/P (MAP) 161/95 Pulse Ox 94 O2 Delivery Room Air Capillary Refill : Less Than 3 Seconds Extremities: other (LLE: pain ful lateral jointline with attempted flexion, slightly warm to touch c/w the right, skin intact, negative patellar balotment) Assessment/Plan Assessment/Plan Admission Diagnosis/Plan ASSESMENT: L knee gout vs septic joint PLAN: hold blood thinners NPO for now L knee aspiration this AM: will f/u on results Clinical Quality Measures DVT/VTE Risk/Contraindication: Risk Factor Score Per Nursin RFS Level Per Nursing on Admit: 4+=Very High JAQUELINE MOREL DO Sep 20, 2016 08:03
[2016-09-20] MEDS: inSUlin (REGULAR) HUMAN 1 UNIT/0.01 ML (CHARGE PER UNIT) SC SCH ×2 (08:19→12:30)
--- NOTE | 2016-09-20 09:49 | Short Stay Summary-Hospitalist ---
HPI History of Present Illness: HPI/Chief Complaint CC: Left knee pain HPI: This is a 51-year-old -[place] male of [facility] with a past medical history of heart disease and diabetes mellitus insulin- dependent the presents to the emergency room with left knee pain and swelling and fever. I confer with the ER physician and she consulted orthopedics to evaluate whether or not this is a septic joint considering the findings that knee was tapped for the effusion and shows evidence of pseudogout and no evidence of any infection. He is responding to steroids and he is having subsequent hyperglycemia due to steroids. He reports that the knee feels much better and is able to walk on it and likely will be able to discharge today on appropriate treatment. He rarely checks his blood sugar even though he takes insulin. Source: patient Exam Limitations: no limitations Date Seen 09/20/16 Time Seen by Provider: 09:15 Attending Physician Kristie Tyler David F MD Referring Physician Date of Admission Sep 19, 2016 at 21:15 Home Medications & Allergies Home Medications Reviewed patient Home Medication Reconciliation Form Allergies Allergies Coded Allergies No Known Drug Allergies (Unverified09/15/08) Past Nqffxuc-Aodcks-Iyjref Hx Patient Social History Marrital Status: single Employed/Student: unemployed Alcohol Use: Denies Use Recreational Drug Use: Yes (THC) Drug of Choice: cannibus Smoking Status: Current Everyday Smoker ( 1 PPD) Type Used: Cigarettes 2nd Hand Smoke Exposure: Yes Physical Abuse Screen: No Sexual Abuse: No Recent Foreign Travel: No Contact w/other who traveled: No Recent Hopitalizations: Yes Recent Infectious Disease Expo: No Immunizations Up To Date Tetanus Booster (TDap): More than 5yrs Date of Influenza Vaccine: Dec 29, 2010 Seasonal Allergies Seasonal Allergies: No Surgeries HX Surgeries: Yes (CARDIAC CATHS-MULTIPLE STENTS) Surgeries: Abdominal, Cardiac, Coronary Stent, Gallbladder, Renal Respiratory Hx Respiratory Disorders: No Cardiovascular Hx Cardiovascular Disorders: Yes (MULTIPLE CARDIAC CATHS WITH MULTIPLE STENTS- MOST RECENT BEING 06/04/16, 07/21/16, 08/04/16) Cardiac Disorders: Coronary Artery Disease, High Cholesterol, Hypertension Neurological Hx Neurological Disorders: Yes (PERIPHERAL NEUROPATHY) Neurological Disorders: Neuropathy Reproductive System Hx Reproductive Disorders: No Sexually Transmitted Disease: No HIV/AIDS: No Genitourinary Hx Genitourinary Disorders: Yes (CHRONIC RENAL FAILURE/INSUFFICIENCY--HAS SEEN CHECKERER HAND X 1 ) Genitourinary Disorders: Kidney Stones, Renal Failure Gastrointestinal Hx Gastrointestinal Disorders: Yes (S/P ASHLEY) Gastrointestinal Disorders: Gastroesophageal Reflux, Gall Bladder Disease Musculoskeletal Hx Musculoskeletal Disorders: Yes (CHRONIC LEG, KNEE, ANKLE AND FOOT PAIN ) Musculoskeletal Disorders: Gout Endocrine Hx Endocrine Disorders: Yes Endocrine Disorders: Diabetes, Insulin dep HEENT HX ENT Disorders: No Cancer Hx Cancer: No Psychosocial Hx Psychiatric Problems: Yes Behavioral Health Disorders: Anxiety Integumentary HX Skin/Integumentary Disorder: No Blood Transfusions Hx Blood Disorders: No Adverse Reaction to a Blood Tr: No Family Medical History Family Hx: Chest pain 03 MOTHER Family history: Arthritis 03 MOTHER Family history: Diabetes mellitus 03 MOTHER 09 BROTHER Family history: Gastrointestinal disease 03 MOTHER 09 BROTHER Family history: Thyroid disorder 03 MOTHER Headache 03 MOTHER Hypercholesterolemia 03 FATHER 03 MOTHER 09 BROTHER Myocardial infarction 03 FATHER 03 MOTHER No Family History of: Abdominal aortic aneurysm Bulloch's disease Alcoholism Aphasia Cancer Cancer of colon Cataract Congenital heart disease Congestive heart failure Cystic fibrosis Dementia Dysphagia Family history: Allergy Family history: Alzheimer's disease Family history: Asthma Family history: Breast disease Family history: Cardiovascular disease Family history: Coronary thrombosis Family history: Glaucoma Family history: Hypertension Family history: Osteoporosis Hearing loss Heart disease Hereditary disease History of - anemia History of - disorder History of - respiratory disease History of drug abuse Human immunodeficiency virus (HIV) seropositivity Kidney disease Malignant neoplasm of lung Parkinson's disease Prostate cancer Psychotic disorder Seizure disorder Stroke Tuberculosis Visual impairment Review of Systems Constitutional: see HPI, fever, weakness EENTM: no symptoms reported Respiratory: no symptoms reported Cardiovascular: no symptoms reported Gastrointestinal: no symptoms reported Genitourinary: no symptoms reported Musculoskeletal: joint pain (left knee) Skin: no symptoms reported Psychiatric/Neurological: No Symptoms Reported All Other Systems Reviewed Negative Unless Noted: Yes Physical Exam Physical Exam Vital Signs Vital Sign - Last 12Hours 09/19/16 09/19/16 18:30 22:12 Temp 98.6 Pulse 97 Resp 16 B/P (MAP) 161/95 Pulse Ox 94 O2 Delivery Room Air Capillary Refill : Less Than 3 Seconds General Appearance: No Apparent Distress, WD/WN, Chronically ill Eyes: Bilateral Eye Normal Inspection, Bilateral Eye PERRL HEENT: PERRL/EOMI, Normal ENT Inspection, Pharynx Normal Neck: Full Range of Motion, Normal Inspection, Non Tender, Supple, Carotid Bruit Respiratory: Chest Non Tender, Lungs Clear, Normal Breath Sounds, No Accessory Muscle Use, No Respiratory Distress Cardiovascular: Regular Rate, Rhythm, No Edema, No Gallop, No JVD, No Murmur, Normal Peripheral Pulses Gastrointestinal: Normal Bowel Sounds, No Organomegaly, No Pulsatile Mass, Non Tender, Soft Back: Normal Inspection, No CVA Tenderness, No Vertebral Tenderness Extremity: Normal Capillary Refill, Normal Inspection, Normal Range of Motion, Non Tender, No Calf Tenderness, No Pedal Edema, Other (much improved effusion left knee w/improved erythema) Neurologic/Psychiatric: Alert, Oriented x3, No Motor/Sensory Deficits, Normal Mood/Affect Skin: Normal Color, Warm/Dry Lymphatic: No Adenopathy Results Results/Procedures Lab Laboratory Tests 09/19/16 19:30 09/20/16 06:00 09/20/16 06:10 Short Stay Diagnosis Discharge Diagnosis-Short Stay Admission Diagnosis Assessment: Acute left knee pseudogout status post joint fluid analysis Diabetes mellitus out of control due to steroids Coronary artery disease Current smoker Chronic renal failure creatinine usual 2.8 Final Discharge Diagnosis Assessment: Acute left knee pseudogout status post joint fluid analysis Diabetes mellitus out of control due to steroids Coronary artery disease Current smoker Chronic renal failure creatinine usual 2.8 Conclusion Plan Plan: Reconcile all home meds Steroid treatment Likely discharge today Steroids will cause hyperglycemia so will have close follow-up with [facility] Clinical Quality Measures DVT/VTE Risk/Contraindication: Risk Factor Score Per Nursin RFS Level Per Nursing on Admit: 4+=Very High IRENE MEJIA DO Sep 20, 2016 09:49
[2016-09-20] MEDS ORDERED: FEBU80TA PO (10:30)
[2016-09-20] MEDS ORDERED: cefTRIAXone INJECTION 1,000 MG in NS (IVPB) 50 ML IV SCH ×4 (10:45)
[2016-09-20] MEDS ORDERED: inSUlin ASPART (NovoLOG) 1 UNIT/0.01 ML (CHARGE PER UNIT) SQ SCH (11:00)
[2016-09-20 12:00] VITALS: BP 157/88
--- NOTE | 2016-09-20 12:47 | Progress Note-Standard ---
Standard Progress Note Progress Notes/Assess & Plan Date Seen by Provider: Sep 20, 2016 Time Seen by Provider: 12:46 Progress/Assessment & Plan aspirate came back as pseudogout. recommend cochicine continue allopurinol f/u PRN JAQUELINE MOREL DO Sep 20, 2016 12:47
[2016-09-20] MEDS ORDERED: COLC0.6C3 PO (12:50)
[2016-09-20] MEDS ORDERED: COLCHICINE 0.6 MG (COLCRYS) TABLET PO NR (13:00)
--- NOTE | 2016-09-20 13:18 | Discharge Summary-Hospitalist ---
Diagnosis/Chief Complaint Date of Admission Sep 19, 2016 at 21:15 Date of Discharge Discharge Date: Sep 20, 2016 Admission Diagnosis Assessment: Acute left knee pseudogout status post joint fluid analysis Diabetes mellitus out of control due to steroids Coronary artery disease Current smoker Chronic renal failure creatinine usual 2.8 Discharge Diagnosis Assessment: Acute left knee pseudogout CRI 2.8 creat CAD DM OOC due to steroids HTN HLP Plan: Reconcile all home meds Steroid treatment Likely discharge today Steroids will cause hyperglycemia so will have close follow-up with [facility] Reason Hospital Visit/Course CC: Left knee pain HPI: This is a 51-year-old -[place] male of [facility] with a past medical history of heart disease and diabetes mellitus insulin- dependent the presents to the emergency room with left knee pain and swelling and fever. I confer with the ER physician and she consulted orthopedics to evaluate whether or not this is a septic joint considering the findings that knee was tapped for the effusion and shows evidence of pseudogout and no evidence of any infection. He is responding to steroids and he is having subsequent hyperglycemia due to steroids. He reports that the knee feels much better and is able to walk on it and likely will be able to discharge today on appropriate treatment. He rarely checks his blood sugar even though he takes insulin. Hospital course: joint fluid was assessed to be without bacteria and dx with pseudogout so colchicine was rxed by ortho service and he was deemed stable for DC on home insulin dose since he was not dc on steroids. Pain was controlled by time of DC but if he needed any narcotic pain medicine I instructed him to call [facility] and maintain appt on 09/23 with [facility] as scheduled. Discharge Summary Discharge Physical Examination Allergies: Coded Allergies: No Known Drug Allergies (Unverified , 09/15/08) Vitals & I&Os Vital Signs Date Time Temp Pulse Resp B/P (MAP) Pulse Ox O2 Delivery O2 Flow Rate FiO2 09/20/16 12:00 98.9 79 20 157/88 97 Room Air Hospital Course Labs (last 24 hrs) Bad tablePending Labs Bad table Discharge Home Medications: Active Scripts Active Colchicine 0.6 Mg Capsule 0.6 Mg PO DAILY Reported Uloric (Febuxostat) 80 Mg Tablet 80 Mg PO HS Seroquel (Quetiapine Fumarate) 50 Mg Tablet 100-150 Mg PO HS TAKES 2-3 (50 MG) TABLETS AT BEDTIME Plavix (Clopidogrel Bisulfate) 75 Mg Tablet 75 Mg PO HS Aspir 81 (Aspirin) 81 Mg Tablet.dr 81 Mg PO HS Lipitor (Atorvastatin Calcium) 10 Mg Tablet 10 Mg PO HS Omeprazole 40 Mg Capsule.dr 40 Mg PO HS Trulicity (Dulaglutide) 0.75 Mg/0.5 Ml Pen.injctr 0.75 Mg SQ FR Novolog (Insulin Aspart) 100 Unit/1 Ml Susp 30 Unit SQ AC Levemir Vial (Insulin Detemir) 100 Unit/1 Ml Vial 35 Unit SQ BID Toprol Xl (Metoprolol Succinate) 50 Mg Tab 50 Mg PO HS Instructions to patient/family Please see electonic discharge instructions given to patient. Clinical Quality Measures DVT/VTE Risk/Contraindication: Risk Factor Score Per Nursin RFS Level Per Nursing on Admit: 4+=Very High IRENE MEJIA DO Sep 20, 2016 13:18
[2016-09-20 14:45] VITALS: BP 157/88
[2016-09-20] MEDS ORDERED: meTOproloL SUCCINATE 50 MG (TOPROL XL) TAB PO SCH (21:00)
[2016-09-20] MEDS ORDERED: PANTOPRAZOLE 40 MG (PROTONIX) TAB PO SCH (21:00)
[2016-09-20] MEDS ORDERED: CLOPIDOGREL 75 MG (PLAVIX) TABLET PO SCH (21:00)
[2016-09-20] MEDS ORDERED: ASPIRIN E.C. 81 MG (ECOTRIN) TAB PO SCH (21:00)
[2016-09-20] MEDS ORDERED: inSUlin DETERMIR 1 UNIT/0.01 ML (LEVEMIR) CHARGE PER UNIT SQ SCH (21:00)
[2016-09-20] MEDS ORDERED: ATORVASTATIN 10 MG (LIPITOR) TABLET PO SCH (21:00)
[2016-09-20] MEDS ORDERED: FEBUXOSTAT 80 MG PO SCH (21:00)
[2016-09-20] MEDS ORDERED: QUEtiapine 100 MG (SEROquel) TAB IMMEDIATE RELEASE PO SCH ×2 (21:00)
[2016-09-21] MEDS ORDERED: COLCHICINE 0.6 MG (COLCRYS) TABLET PO SCH (09:00)
[2016-09-24] MEDS ORDERED: NON-FORMULARY MEDICATION 1 EA EA (Dulaglutide (Trulicity) 0.75 MG) SQ SCH (10:45)
== END 2016-09-20 14:45 | disposition home or self-care (01) | DRG 554 ==
LOC: EDUNIT# 16:09 → ER 16:11 → 4TH 21:15 → 3RD 09-20 13:34 → 4TH 09-20 13:34
PROVIDERS: ADMIT Internal Medicine; ATTEND Family Medicine
PROC: 0S9D3ZX Drainage of Left Knee Joint, Percutaneous Approach, Diagnostic (ICD-10-PCS; principal; 2016-09-20)
DX: M11.262 Other chondrocalcinosis, left knee (principal); E11.65 Type 2 diabetes mellitus with hyperglycemia; I25.10 Atherosclerotic heart disease of native coronary artery without angina pectoris; I12.9 Hypertensive chronic kidney disease with stage 1 through stage 4 chronic kidney disease, or unspecified chronic kidney disease; N18.9 Chronic kidney disease, unspecified; F17.210 Nicotine dependence, cigarettes, uncomplicated; Z95.5 Presence of coronary angioplasty implant and graft; E78.5 Hyperlipidemia, unspecified; G62.9 Polyneuropathy, unspecified; T38.0X5A Adverse effect of glucocorticoids and synthetic analogues, initial encounter; Z79.4 Long term (current) use of insulin
CPT/HCPCS: 36415; 73562; 80053; 80306; 81000; 82962; 83605; 84550; 85007; 85025; 85027; 85652; 86141; 87040; 87070; 87075; 87077; 87088; 87116; 87205; 89051; 89060; 96365; 96375

== ENCOUNTER → 2016-11-22 | Outpatient (CLI) | payer OTHER ==
[~2016-11-22] MED LIST changes: +COLC0.6C3 PO; +FEBU80TA PO
--- NOTE | 2016-11-22 12:08 | Diagnostic Imaging Report ---
EXAMINATION: Doppler vascular ultrasound of the kidneys. INDICATION: Chronic renal disease. Proteinuria. FINDINGS: The right kidney is 11.6 and the left kidney is 9.4 CM in length. There is no hydronephrosis or focal lesion seen. Peak systolic velocities in the mid and distal segments of the right renal artery are 72 and 60 CM/S. The proximal renal artery on the right side is obscured. The proximal left renal artery is also obscured with velocities of 77 and 61 CM per second in the mid and distal segments. The resistive index in the right kidney is in the range of 0.44-0.71 and on the left side is in the range of 0.75-0.69. The urinary bladder appears unremarkable. IMPRESSION: The proximal renal artery on both sides is obscured. Dictated by: Dictated on workstation # [id number]
--- NOTE | 2016-11-22 12:25 | Diagnostic Imaging Report ---
Ultrasound of the pelvis. INDICATION: Chronic renal disease. FINDINGS: The urinary bladder appears normal with prevoid volume of 268 mL. After voiding, the urinary bladder is completely empty. IMPRESSION: Unremarkable exam. Dictated by: Dictated on workstation # [id number]
== END ==
LOC: RAD 09:01
PROVIDERS: ATTEND Internal Medicine Nephrology
DX: I12.9 Hypertensive chronic kidney disease with stage 1 through stage 4 chronic kidney disease, or unspecified chronic kidney disease (principal); N18.3 Chronic kidney disease, stage 3 (moderate); R80.9 Proteinuria, unspecified; N20.0 Calculus of kidney; E11.9 Type 2 diabetes mellitus without complications
CPT/HCPCS: 76857; 93975

== ENCOUNTER → 2016-11-29 | Outpatient (CLI) | payer OTHER ==
[2016-11-29 17:49] LABS: MEAN PLATELET VOLUME 10.2 FL (7.4-10.4); RED BLOOD COUNT 4.64 10^6/uL (4.35-5.85); WHITE BLOOD COUNT 10.9 10^3/uL (4.3-11.0)
[2016-11-29 18:09] LABS: ALBUMIN 3.6 GM/DL (3.2-4.5); CALCIUM 9.3 MG/DL (8.5-10.1); CREATININE SERUM 3.45 MG/DL (0.60-1.30); MAGNESIUM 1.9 MG/DL (1.8-2.4); PHOSPHORUS 3.5 MG/DL (2.3-4.7); POTASSIUM 4.2 MMOL/L (3.6-5.0); URIC ACID 6.9 MG/DL (2.6-7.2)
[2016-12-01 07:14] LABS: CALCIUM PARA THYROID HORMONE 9.1 mg/dL (8.5-10.5)
== END ==
LOC: LAB 17:28
PROVIDERS: ATTEND Internal Medicine Nephrology
DX: I12.9 Hypertensive chronic kidney disease with stage 1 through stage 4 chronic kidney disease, or unspecified chronic kidney disease (principal); N18.3 Chronic kidney disease, stage 3 (moderate); R80.9 Proteinuria, unspecified; E11.21 Type 2 diabetes mellitus with diabetic nephropathy; N20.0 Calculus of kidney
CPT/HCPCS: 36415; 80069; 82306; 83735; 83970; 84550; 85027

== ENCOUNTER → 2016-12-01 | Outpatient (CLI) | payer OTHER ==
[2016-12-01 10:08] LABS: BILIRUBIN,URINE NEGATIVE (NEGATIVE); KETONES,URINE NEGATIVE (NEGATIVE); LEUKOCYTE ESTERASE ,URINE 1+ (NEGATIVE); NITRITE,URINE NEGATIVE (NEGATIVE); PH,URINE 5 (5-9); PROTEIN,URINE 4+ (NEGATIVE); UROBILINOGEN,URINE NORMAL (NORMAL)
[2016-12-01 10:18] LABS: WBC,URINE 25-50 /HPF
[2016-12-01 10:45] LABS: PROTEIN/CREATININE RATIO 3.42
== END ==
LOC: LAB 10:01
PROVIDERS: ATTEND Nurse Practitioner Community Health
DX: N18.3 Chronic kidney disease, stage 3 (moderate); E11.9 Type 2 diabetes mellitus without complications; I12.9 Hypertensive chronic kidney disease with stage 1 through stage 4 chronic kidney disease, or unspecified chronic kidney disease; R80.9 Proteinuria, unspecified; N20.0 Calculus of kidney
CPT/HCPCS: 81000; 82570; 84156; 87088

== ENCOUNTER 2017-02-08 15:23 | Emergency (ER) | payer SELFPAY ==
[~2017-02-08] VITALS: Ht 185.4 cm; Wt 131.5 kg
[~2017-02-08 15:23] MED LIST changes: -NAPR500T3 PO; +NAPR500T4 PO
--- OUTSIDE RECORDS SUMMARY | 2017-02-08 15:29 | XMS REPORT ---
Author Author CHARMAINE MERRILL [facility] Address [address] [place] [address] Care Team Providers Care Communication Assistant Name Role Phone CHARMAINE MERRILL Unavailable PROBLEMS Type Condition ICD9-CM Code [id number] Code Onset Dates Condition Status SNOMED Code Problem Gout, unspecified M10.9 Active 45157102 Problem medical terminologist 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 Active 973208513 Problem Insomnia, unspecified G47.00 Active 024322800 Problem Coronary atherosclerosis of unspecified type of vessel, [place] or graft I25.10 Active 134489593 Problem Gastroesophageal reflux disease, esophagitis presence not specified K21.9 Active 858570149 Problem Pseudogout M11.20 Active 304674291 Problem Mixed hyperlipidemia E78.2 Active 377905916 Problem 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 866837265 Problem Type 2 diabetes mellitus with hyperglycemia E11.65 Active 075782165640315 Problem Mood disorder F39 Active 36098003 Problem Chronic kidney disease, stage 3 N18.3 Active 973450331 ALLERGIES No Information SOCIAL HISTORY Never Assessed PLAN OF CARE VITAL SIGNS MEDICATIONS Unknown Medications RESULTS No Results PROCEDURES No Known procedures IMMUNIZATIONS No Known Immunizations MEDICAL (GENERAL) HISTORY Type Description Date Medical History hyperlipidemia Medical History uric acid kidney stone (to be on lifelong allopurinol tx) Medical History coronary artery disease Medical History type II diabetes Medical History diabetic neuropathy Medical History chronic renal failure stage 3 Medical History Gout Medical History Gout, unspecified Medical History Encounter for long-term (current) use of other medications Medical History Diabetes Medical History Cellulitis of right lower extremity Medical History Proteinuria Medical History Leukocytosis, unspecified type Surgical History Gall stone/Kidney stone removal Surgical History Mass removal from groin Surgical History Gallbladder removal Surgical History Stents Hospitalization History Surgery Hospitalization History GERD, Atypical Chest Pain, Uncontrolled DMT2, Essential HTN, CKD stage 3, Obesity 06/27/15 Hospitalization History Stent placement 06/2016 Hospitalization History addtl stent placement 07/2016 Hospitalization History Acute left knee pseudogout status post joint fluid analysis-[facility] 09/20/16
--- OUTSIDE RECORDS SUMMARY | 2017-02-08 15:29 | XMS REPORT ---
Author Author CHAPARRO MUJICA [facility] Address [address] [place] [address] Care Team Providers Care Checker/Stocker Name Role Phone CHAPARRO MUJICA Unavailable PROBLEMS Type Condition ICD9-CM Code GAG91-HJ Code Onset Dates Condition Status SNOMED Code Problem Gout, unspecified M10.9 Active 25204292 Problem custodial 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 Active 075310791 Problem Insomnia, unspecified G47.00 Active 436372419 Problem Coronary atherosclerosis of unspecified type of vessel, [place] or graft I25.10 Active 000820070 Problem Gastroesophageal reflux disease, esophagitis presence not specified K21.9 Active 042269221 Problem Pseudogout M11.20 Active 390332963 Problem Mixed hyperlipidemia E78.2 Active 427234065 Problem 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 988702738 Problem Type 2 diabetes mellitus with hyperglycemia E11.65 Active 804711507737398 Problem Mood disorder F39 Active 65469402 Problem Chronic kidney disease, stage 3 N18.3 Active 811958852 ALLERGIES No Information SOCIAL HISTORY Never Assessed PLAN OF CARE VITAL SIGNS MEDICATIONS Medication Instructions Dosage Frequency Start Date End Date Duration Status Levemir 100 UNIT/ML Subcutaneous 2 times a day Inject 35 units 12h Apr, May, 30 days Active RESULTS No Results PROCEDURES No Known [...] left knee pseudogout status post joint fluid analysis-[facility] 09/20/16
--- OUTSIDE RECORDS SUMMARY | 2017-02-08 15:30 | XMS REPORT ---
Author Author CHAPARRO MUJICA [facility] Address [address] [place] [address] Care Team Providers Care Talking Books Library Clerk Name Role Phone CHAPARRO MUJICA Unavailable PROBLEMS Type Condition ICD9-CM Code WPT81-VL Code Onset Dates Condition Status SNOMED Code Problem Gout, unspecified M10.9 Active 97673509 Problem detention 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 Active 638831605 Problem Insomnia, unspecified G47.00 Active 810016600 Problem Coronary atherosclerosis of unspecified type of vessel, [place] or graft I25.10 Active 402984766 Problem Gastroesophageal reflux disease, esophagitis presence not specified K21.9 Active 842557536 Problem Pseudogout M11.20 Active 792931522 Problem Mixed hyperlipidemia E78.2 Active 208996450 Problem 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 581877709 Problem Type 2 diabetes mellitus with hyperglycemia E11.65 Active 354902150183289 Problem Mood disorder F39 Active 28978917 Problem Chronic kidney disease, stage 3 N18.3 Active 294127139 ALLERGIES Unknown Allergies SOCIAL HISTORY No smoking Hx information available PLAN OF CARE VITAL SIGNS MEDICATIONS Unknown Medications RESULTS No Results PROCEDURES No Known procedures IMMUNIZATIONS No Known Immunizations
--- OUTSIDE RECORDS SUMMARY | 2017-02-08 15:30 | XMS REPORT ---
Author Author CHAPARRO MUJICA 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 Active 401961776 Problem Insomnia, unspecified G47.00 Active 647591558 Problem Coronary atherosclerosis of unspecified type of vessel, [place] or graft I25.10 Active 369823737 Problem Gastroesophageal reflux disease, esophagitis presence not specified K21.9 Active 099935898 Problem Pseudogout M11.20 Active 961372417 Problem Mixed hyperlipidemia E78.2 Active 044294914 Problem 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 333256624 Problem Type 2 diabetes mellitus with hyperglycemia E11.65 Active 176241186494761 Problem Mood disorder F39 Active 22078211 Problem Chronic kidney disease, stage 3 N18.3 Active 715039434 ALLERGIES Substance Reaction Event Type Date Status Acetaminophen-Codeine #3 Failed [facility]ox UDS- THC Drug Allergy Mar, Active SOCIAL HISTORY Never Assessed PLAN OF CARE Activity Details Follow Up 4 Weeks Reason:DM VITAL SIGNS Height 73 in 2016-04-15 Weight 289.2 lbs 2016-04-15 Temperature 98.0 degrees Fahrenheit 2016-04-15 Heart Rate 88 bpm 2016-04-15 Respiratory Rate 20 2016-04-15 BMI 38.15 kg/m2 2016-04-15 Blood pressure systolic 130 mmHg 2016-04-15 Blood pressure diastolic 84 mmHg 2016-04-15 MEDICATIONS Medication Instructions Dosage Frequency Start Date End Date Duration Status Toprol XL 50 mg TAKE ONE TABLET BY MOUTH ONCE DAILY 90 days Active Levemir FlexTouch 100 UNIT/ML Subcutaneous 2 times a day Inject 35 units 12h 05 Jan, 2016 53 days Active Allopurinol 300 MG TAKE ONE TABLET BY MOUTH DAILY 90 Active Seroquel 50 mg Orally Once a day 3 Tablets 24h 15 Jan, 2014 30 days Active NovoLog 100 UNIT/ML 30 units with meal, 10 units with snack Dec, Active Flagyl 500 MG Orally 2 times a day 1 tablet 12h Mar, Mar, 07 days Active Trulicity 0.75 MG/0.5ML Inject 0.5 ml Jan, 160 days Active Glucometer as directed Dec, Active Omeprazole 40 mg Orally Once a day 1 capsule 24h May, 30 days Active Insulin Syringe 31G X 07/13 as directed Jan, Active Atorvastatin Calcium 10 mg TAKE ONE TABLET BY MOUTH DAILY 90 days Active RESULTS No Results PROCEDURES No [...] left knee pseudogout status post joint fluid analysis-[facility] 09/20/16
--- OUTSIDE RECORDS SUMMARY | 2017-02-08 15:31 | XMS REPORT ---
Author Author CHAPARRO MUJICA [facility] Address [address] [place] [address] Care Team Providers Care Custom Motorcycle Painter Name Role Phone CHAPARRO MUJICA Unavailable PROBLEMS Type Condition ICD9-CM Code [id number] Code Onset Dates Condition Status SNOMED Code Problem Gout, unspecified M10.9 Active 68936962 Problem long-term 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 Active 057882769 Problem Insomnia, unspecified G47.00 Active 015880116 Problem Coronary atherosclerosis of unspecified type of vessel, [place] or graft I25.10 Active 765132365 Problem Gastroesophageal reflux disease, esophagitis presence not specified K21.9 Active 202581231 Problem Pseudogout M11.20 Active 017645638 Problem Mixed hyperlipidemia E78.2 Active 937472865 Problem 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
--- OUTSIDE RECORDS SUMMARY | 2017-02-08 15:31 | XMS REPORT ---
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 Active 760742610 Problem Insomnia, unspecified G47.00 Active 308164958 Problem Coronary atherosclerosis of unspecified type of vessel, [place] or graft I25.10 Active 925941034 Problem Gastroesophageal reflux disease, esophagitis presence not specified K21.9 Active 480835606 Problem Pseudogout M11.20 Active 615000210 Problem Mixed hyperlipidemia E78.2 Active 656942771 Problem 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 313989466 Problem Type 2 diabetes mellitus with hyperglycemia E11.65 Active 698917015053620 Problem Mood disorder F39 Active 38480738 Problem Chronic kidney disease, stage 3 N18.3 Active 618915843 ALLERGIES Substance Reaction Event Type Date Status Acetaminophen-Codeine #3 Failed [facility]itox UDS- THC Drug Allergy Feb, Active SOCIAL HISTORY No smoking Hx information available PLAN OF CARE Activity Details Follow Up prn Reason: VITAL SIGNS Height 73 in 2016-03-23 Weight 286.9 lbs 2016-03-23 Temperature 97.9 degrees Fahrenheit 2016-03-23 Heart Rate 80 bpm 2016-03-23 Respiratory Rate 22 2016-03-23 BMI 37.85 kg/m2 2016-03-23 Blood pressure systolic 132 mmHg 2016-03-23 Blood pressure diastolic 90 mmHg 2016-03-23 MEDICATIONS Medication Instructions Dosage Frequency Start Date End Date Duration Status Glucometer as directed Dec, Active Seroquel 50 mg Orally Once a day 3 Tablets 24h Jan, 30 days Active Allopurinol 300 MG TAKE ONE TABLET BY MOUTH DAILY 90 Active Omeprazole 40 mg Orally Once a day 1 capsule 24h May, 30 days Active Toprol XL 50 mg TAKE ONE TABLET BY MOUTH ONCE DAILY 90 days Active Atorvastatin Calcium 10 mg TAKE ONE TABLET BY MOUTH DAILY 90 days Active Trulicity 0.75 MG/0.5ML Inject 0.5 ml Jan, 160 days Active Hydrocodone-Acetaminophen 10-325 MG Orally every 6 hrs 1 tablet as needed 6h Feb, 10 days Active NovoLog 100 UNIT/ML 30 units with meal, 10 units with snack Dec, Active Insulin Syringe 31G X 5/16 as directed Jan, Active RESULTS No Results PROCEDURES Procedure Date Ordered Related Diagnosis Body Site Office Visit, Est Pt., Level 3 Mar 23, 2016 IMMUNIZATIONS No Known Immunizations
--- OUTSIDE RECORDS SUMMARY | 2017-02-08 15:31 | XMS REPORT ---
Author Author CHAPARRO MUJICA [facility] Address [address] [place] [address] Care Team Providers Care Modeling And Simulation Analyst Name Role Phone CHAPARRO MUJICA Unavailable PROBLEMS Type Condition ICD9-CM Code [id number] Code Onset Dates Condition Status SNOMED Code Problem Gout, unspecified M10.9 Active 27811540 Problem [facility] 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 Active 237405675 Problem Insomnia, unspecified G47.00 Active 403324553 Problem Coronary atherosclerosis of unspecified type of vessel, [place] or graft I25.10 Active 103784289 Problem Gastroesophageal reflux disease, esophagitis presence not specified K21.9 Active 272462403 Problem Pseudogout M11.20 Active 358640774 Problem Mixed hyperlipidemia E78.2 Active 081312575 Problem 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
--- OUTSIDE RECORDS SUMMARY | 2017-02-08 15:31 | XMS REPORT ---
Author Author CHAPARRO MUJICA [facility] Address [address] [place] [address] Care Team Providers Care Television Cameraman Name Role Phone CHAPARRO MUJICA Unavailable PROBLEMS Type Condition ICD9-CM Code ONW06-TF Code Onset Dates Condition Status SNOMED Code Problem Gout, unspecified M10.9 Active 59263563 Problem long-term 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 Active 348462611 Problem Insomnia, unspecified G47.00 Active 259895545 Problem Coronary atherosclerosis of unspecified type of vessel, [place] or graft I25.10 Active 706531096 Problem Gastroesophageal reflux disease, esophagitis presence not specified K21.9 Active 114061840 Problem Pseudogout M11.20 Active 706689342 Problem Mixed hyperlipidemia E78.2 Active 842683557 Problem 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
--- OUTSIDE RECORDS SUMMARY | 2017-02-08 15:31 | XMS REPORT ---
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 Active 137467856 Problem Insomnia, unspecified G47.00 Active 382614507 Problem Coronary atherosclerosis of unspecified type of vessel, [place] or graft I25.10 Active 277007538 Problem Gastroesophageal reflux disease, esophagitis presence not specified K21.9 Active 490376701 Problem Pseudogout M11.20 Active 653261669 Problem Mixed hyperlipidemia E78.2 Active 098047395 Problem 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 701430129 Problem Type 2 diabetes mellitus with hyperglycemia E11.65 Active 186853697717060 Problem Mood disorder F39 Active 20806732 Problem Chronic kidney disease, stage 3 N18.3 Active 282387538 ALLERGIES Substance Reaction Event Type Date Status Acetaminophen-Codeine #3 Failed [facility]itox UDS- THC Drug Allergy Feb, Active SOCIAL HISTORY No smoking Hx information available PLAN OF CARE Activity Details Follow Up 2 - 3 Days Reason:infected foot VITAL SIGNS Height 73 in 2016-03-15 Weight 281.3 lbs 2016-03-15 Temperature 98.0 degrees Fahrenheit 2016-03-15 Heart Rate 78 bpm 2016-03-15 Respiratory Rate 20 2016-03-15 BMI 37.11 kg/m2 2016-03-15 Blood pressure systolic 132 mmHg 2016-03-15 Blood pressure diastolic 86 mmHg 2016-03-15 MEDICATIONS Medication Instructions Dosage Frequency Start Date End Date Duration Status Seroquel 50 mg Orally Once a day 3 Tablets 24h Jan, 30 days Active Atorvastatin Calcium 10 mg TAKE ONE TABLET BY MOUTH DAILY 90 days Active Trulicity 0.75 MG/0.5ML Inject 0.5 ml Jan, 160 days Active PredniSONE 20 mg Orally Once a day 2 tablet 24h Feb, Feb, 05 days Active NovoLog 100 UNIT/ML 30 units with meal, 10 units with snack Dec, Active Hydrocodone-Acetaminophen 5-325 MG Orally every 6 hrs 1 tablet as needed 6h Active Amoxicillin 500 MG Orally every 8 hrs 1 tablet 8h Active Glucometer as directed Dec, Active Insulin Syringe 31G X /16 as directed Jan, Active Omeprazole 40 mg Orally Once a day 1 capsule 24h May, 30 days Active Levemir FlexTouch 100 UNIT/ML Subcutaneous 2 times a day Inject 35 units 12h Jan, Active Tizanidine HCl 2 MG TAKE ONE TABLET BY MOUTH THREE TIMES DAILY Active Allopurinol 300 MG TAKE ONE TABLET BY MOUTH DAILY 90 Active Nystatin 102684 UNIT/ML Mouth/Throat Four times a day 5 ml 6h Feb, Feb, 20 days Active Toprol XL 50 mg TAKE ONE TABLET BY MOUTH ONCE DAILY 90 days Active Hydrocodone-Acetaminophen 10-325 MG Orally every 6 hrs 1 tablet as needed 6h Feb, Feb, 10 days Active RESULTS Name Result Date Reference Range A1C (IN HOUSE) 2016-03-15 A1C IN HOUSE 11.1 4.3 - 5.6 % Previous A1c 11.3 Lot [id number] Exp date Nov 2017 URINE PROTEIN TO CREATININE RATIO 2016-03-15 Creatinine, Urine 289.2 Not Estab. Protein,Total,Urine 927.6 Not Estab. Protein/Creat Ratio 3207 0-200 CRP 2016-03-15 C-Reactive Protein, Quant 36.2 0.0-4.9 MICROALBUMIN/CREATININE RATIO, URINE 2016-03-15 Microalbumin, Urine 5532.1 Not Estab. Microalb/Creat Ratio 1912.9 0.0-30.0 JOHNSON ANALYZER 2016-03-15 JOHNSON Direct Negative Negative See below: URIC ACID, SERUM 2016-03-15 Uric Acid, Serum 7.0 3.7-8.6 CBC 2016-03-15 WBC 11.1 3.4-10.8 RBC 4.46 4.14-5.80 Hemoglobin 12.2 12.6-17.7 Hematocrit 36.7 37.5-51.0 MCV 82 79-97 MCH 27.4 26.6-33.0 MCHC 33.2 31.5-35.7 RDW 16.5 12.3-15.4 Platelets 301 150-379 Neutrophils 68 Lymphs 26 Monocytes 4 Eos 2 Basos 0 Neutrophils (Absolute) 7.6 1.4-7.0 Lymphs (Absolute) 2.9 0.7-3.1 Monocytes(Absolute) 0.5 0.1-0.9 Eos (Absolute) 0.2 0.0-0.4 Baso (Absolute) 0.0 0.0-0.2 Immature Granulocytes 0 Immature Grans (Abs) 0.0 0.0-0.1 RA (RHEUMATOID) FACTOR 2016-03-15 RA Latex Turbid. 11.8 0.0-13.9 CMP 2016-03-15 Glucose, Serum 181 65-99 BUN 21 6-24 Creatinine, Serum 2.47 0.76-1.27 eGFR If NonAfricn Am 30 >59 eGFR If Africn Am 34 >59 BUN/Creatinine Ratio 9 9-20 Sodium, Serum 141 134-144 Potassium, Serum 4.5 3.5-5.2 Chloride, Serum 97 96-106 Carbon Dioxide, Total 26 18-29 Calcium, Serum 9.3 8.7-10.2 Protein, Total, Serum 6.3 6.0-8.5 Albumin, Serum 3.3 3.5-5.5 Globulin, Total 3.0 1.5-4.5 A/G Ratio 1.1 1.1-2.5 Bilirubin, Total <0.2 0.0-1.2 Alkaline Phosphatase, S 86 39-117 AST (SGOT) 11 0-40 ALT (SGPT) 11 0-44 ESR/SED RATE (IN HOUSE) 2016-03-15 SED/ESR RATE 104 mm/hr Lot # [id number] Exp Date 27 Apr 2016 0 - 15 mm MICROALBUMIN, URINE (IN HOUSE) 2016-03-15 MICROALBUMIN Abnormal Lot # [id number] Exp date Clarity cloudy Color yellow ALB 150 mg/L CRE 300 mg/dL A:C (IN HOUSE) 30-300 mg/g Control normal Control abnormal Lot # [id number] Exp date PROCEDURES Procedure Date Ordered Related Diagnosis Body Site ASSAY OF PROTEIN, URINE Mar 15, 2016 COMPREHEN METABOLIC PANEL Mar 15, 2016 ASSAY OF URINE CREATININE Mar 15, 2016 COMPLETE CBC W/AUTO DIFF WBC Mar 15, 2016 ASSAY OF BLOOD/URIC ACID Mar 15, 2016 C-REACTIVE PROTEIN Mar 15, 2016 RHEUMATOID FACTOR, QUANT Mar 15, 2016 GLYCATED HEMOGLOBIN TEST Mar 15, 2016 RBC SED RATE, NONAUTOMATED Mar 15, 2016 Office Visit, Est Pt., Level 3 Mar 15, 2016 MICROALBUMIN, SEMIQUANT Mar 15, 2016 MICROALBUMIN, QUANTITATIVE Mar 15, 2016 ANTINUCLEAR ANTIBODIES Mar 15, 2016 VENIPUNCT, ROUTINE* Mar 15, 2016 IMMUNIZATIONS No Known Immunizations
--- OUTSIDE RECORDS SUMMARY | 2017-02-08 15:31 | XMS REPORT ---
Author Author CHAPARRO MUJICA [facility] Address [address] [place] [address] Care Team Providers Care Joinery Machinist Name Role Phone CHAPARRO MUJICA Unavailable PROBLEMS Type Condition ICD9-CM Code [id number] Code Onset Dates Condition Status SNOMED Code Problem Gout, unspecified M10.9 Active 51693944 Problem custodial 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 Active 398893216 Problem Insomnia, unspecified G47.00 Active 692281337 Problem Coronary atherosclerosis of unspecified type of vessel, [place] or graft I25.10 Active 305479376 Problem Gastroesophageal reflux disease, esophagitis presence not specified K21.9 Active 271421745 Problem Pseudogout M11.20 Active 692394034 Problem Mixed hyperlipidemia E78.2 Active 169496735 Problem 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
--- OUTSIDE RECORDS SUMMARY | 2017-02-08 15:31 | XMS REPORT ---
Author Author CHAPARRO MUJICA [facility] Address [address] [place] [address] Care Team Providers Care Suction Dredge Dumping Supervisor Name Role Phone CHAPARRO MUJICA Unavailable PROBLEMS Type Condition ICD9-CM Code [id number]-RQ Code Onset Dates Condition Status SNOMED Code Problem Gout, unspecified M10.9 Active 35288624 Problem [facility]P 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 Active 200366642 Problem Insomnia, unspecified G47.00 Active 666325016 Problem Coronary atherosclerosis of unspecified type of vessel, [place] or graft I25.10 Active 346272434 Problem Gastroesophageal reflux disease, esophagitis presence not specified K21.9 Active 395655038 Problem Pseudogout M11.20 Active 605753098 Problem Mixed hyperlipidemia E78.2 Active 895471523 Problem 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
--- OUTSIDE RECORDS SUMMARY | 2017-02-08 15:32 | XMS REPORT ---
Author Author CHAPARRO MUJICA [facility] Address [address] [place] [address] Care Team Providers Care Full Stack Java Developer Name Role Phone CHAPARRO MUJICA Unavailable PROBLEMS Type Condition ICD9-CM Code YQU84-TK Code Onset Dates Condition Status SNOMED Code Problem Gout, unspecified M10.9 Active 45920209 Problem senior care 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 Active 862476369 Problem Insomnia, unspecified G47.00 Active 828207771 Problem Coronary atherosclerosis of unspecified type of vessel, [place] or graft I25.10 Active 660900883 Problem Gastroesophageal reflux disease, esophagitis presence not specified K21.9 Active 610668758 Problem Pseudogout M11.20 Active 218566423 Problem Mixed hyperlipidemia E78.2 Active 415836336 Problem 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
--- OUTSIDE RECORDS SUMMARY | 2017-02-08 15:32 | XMS REPORT ---
Author Author CHAPARRO MUJICA [facility] Address [address] [place] [address] Care Team Providers Care Lip Reading Teacher Name Role Phone CHAPARRO MUJICA Unavailable PROBLEMS Type Condition ICD9-CM Code BTR23-MD Code Onset Dates Condition Status SNOMED Code Problem Gout, unspecified M10.9 Active 02036619 Problem intermediate 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 Active 081743186 Problem Insomnia, unspecified G47.00 Active 291850052 Problem Coronary atherosclerosis of unspecified type of vessel, [place] or graft I25.10 Active 738807507 Problem Gastroesophageal reflux disease, esophagitis presence not specified K21.9 Active 425836760 Problem Pseudogout M11.20 Active 254059180 Problem Mixed hyperlipidemia E78.2 Active 023437465 Problem 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 022526844 Problem Type 2 diabetes mellitus with hyperglycemia E11.65 Active 055556552497363 Problem Mood disorder F39 Active 34008661 Problem Chronic kidney disease, stage 3 N18.3 Active 542917223 ALLERGIES Unknown Allergies SOCIAL HISTORY No smoking Hx information available PLAN OF CARE VITAL SIGNS MEDICATIONS Unknown Medications RESULTS Name Result Date Reference Range CBC 2016-03-29 WBC 14.4 3.4-10.8 RBC 4.44 4.14-5.80 Hemoglobin 12.1 12.6-17.7 Hematocrit 36.2 37.5-51.0 MCV 82 79-97 MCH 27.3 26.6-33.0 MCHC 33.4 31.5-35.7 RDW 17.3 12.3-15.4 Platelets 221 150-379 Neutrophils 77 Lymphs 16 Monocytes 5 Eos 1 Basos 0 Immature Cells Neutrophils (Absolute) 11.2 1.4-7.0 Lymphs (Absolute) 2.2 0.7-3.1 Monocytes(Absolute) 0.7 0.1-0.9 Eos (Absolute) 0.2 0.0-0.4 Baso (Absolute) 0.0 0.0-0.2 Immature Granulocytes 1 Immature Grans (Abs) 0.1 0.0-0.1 NRBC Hematology Comments: PROCEDURES Procedure Date Ordered Related Diagnosis Body Site COMPLETE CBC W/AUTO DIFF WBC Mar 29, 2016 VENIPUNCT, ROUTINE* Mar 29, 2016 IMMUNIZATIONS No Known Immunizations
--- OUTSIDE RECORDS SUMMARY | 2017-02-08 15:32 | XMS REPORT ---
Author Author CHAPARRO MUJICA [facility] Address [address] [place] [address] Care Team Providers Care Executive Advisor Name Role Phone CHAPARRO MUJICA Unavailable PROBLEMS Type Condition ICD9-CM Code VDD86-HQ Code Onset Dates Condition Status SNOMED Code Problem Gout, unspecified M10.9 Active 08223505 Problem prison 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 Active 111807383 Problem Insomnia, unspecified G47.00 Active 047724106 Problem Coronary atherosclerosis of unspecified type of vessel, [place] or graft I25.10 Active 901142741 Problem Gastroesophageal reflux disease, esophagitis presence not specified K21.9 Active 978705788 Problem Pseudogout M11.20 Active 103079668 Problem Mixed hyperlipidemia E78.2 Active 641515023 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
--- OUTSIDE RECORDS SUMMARY | 2017-02-08 15:32 | XMS REPORT ---
Author Author CHAPARRO MUJICA [facility] Address [address] [place] [address] Care Team Providers Care Computer Information Science Professor Name Role Phone CHAPARRO MUJICA Unavailable PROBLEMS Type Condition ICD9-CM Code YWI08-IC Code Onset Dates Condition Status SNOMED Code Problem Gout, unspecified M10.9 Active 45784950 Problem care home 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 Active 750321235 Problem Insomnia, unspecified G47.00 Active 213417332 Problem Coronary atherosclerosis of unspecified type of vessel, [place] or graft I25.10 Active 687524680 Problem Gastroesophageal reflux disease, esophagitis presence not specified K21.9 Active 652432215 Problem Pseudogout M11.20 Active 890578677 Problem Mixed hyperlipidemia E78.2 Active 023011071 Problem 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
--- OUTSIDE RECORDS SUMMARY | 2017-02-08 15:32 | XMS REPORT ---
Author Author CHAPARRO MUJICA [facility] Address [address] [place] [address] Care Team Providers Care Air Liaison And Special Staff Name Role Phone CHAPARRO MUJICA Unavailable PROBLEMS Type Condition ICD9-CM Code [id number] Code Onset Dates Condition Status SNOMED Code Problem Gout, unspecified M10.9 Active 01083115 Problem terminal gauger 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 Active 155902525 Problem Insomnia, unspecified G47.00 Active 629882107 Problem Coronary atherosclerosis of unspecified type of vessel, [place] or graft I25.10 Active 418052883 Problem Gastroesophageal reflux disease, esophagitis presence not specified K21.9 Active 058165024 Problem Pseudogout M11.20 Active 965760644 Problem Mixed hyperlipidemia E78.2 Active 620706156 Problem 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 025577613 Problem Type 2 diabetes mellitus with hyperglycemia E11.65 Active 506053402896291 Problem Mood disorder F39 Active 84061928 Problem Chronic kidney disease, stage 3 N18.3 Active 297409108 ALLERGIES Substance Reaction Event Type Date Status Acetaminophen-Codeine #3 Failed [facility]ox UDS- THC Drug Allergy Apr, Active SOCIAL HISTORY Never Assessed PLAN OF CARE Activity Details Follow Up prn Reason: VITAL SIGNS Height 73 in 2016-05-06 Weight 273.7 lbs 2016-05-06 Temperature 97.7 degrees Fahrenheit 2016-05-06 Heart Rate 112 bpm 2016-05-06 Respiratory Rate 20 2016-05-06 BMI 36.11 kg/m2 2016-05-06 Blood pressure systolic 125 mmHg 2016-05-06 Blood pressure diastolic 88 mmHg 2016-05-06 MEDICATIONS Medication Instructions Dosage Frequency Start Date End Date Duration Status Omeprazole 40 MG TAKE ONE CAPSULE BY MOUTH ONCE DAILY 30 Active NovoLog 100 UNIT/ML Subcutaneous 3 times a day Inject 30 units with meals 8h Dec, 90 days Active Tylenol/Codeine #3 300-30 MG Orally every 6 hrs 1 tablet as needed 6h Apr, Apr, 10 days Active Insulin Syringe 31G X 5/16 as directed Jan, Active Levemir FlexTouch 100 UNIT/ML Subcutaneous 2 times a day Inject 35 units 12h Jan, 53 days Active Toprol XL 50 mg TAKE ONE TABLET BY MOUTH ONCE DAILY 90 days Active Atorvastatin Calcium 10 mg TAKE ONE TABLET BY MOUTH DAILY 90 days Active Seroquel 50 mg Orally Once a day 3 Tablets 24h Jan, 30 days Active Allopurinol 300 MG TAKE ONE TABLET BY MOUTH DAILY 90 Active Glucometer as directed Dec, Active Trulicity 0.75 MG/0.5ML Inject 0.5 ml Jan, 160 days Active RESULTS Name Result Date Reference Range GLUCOSE FINGERSTICK (IN HOUSE) GLU FINGERSTICK 133 PC Lot # [id number] Exp date 07/17/2016 PROCEDURES Procedure Date Ordered Result Body Site GLUCOSE BLOOD TEST May 06, 2016 IMMUNIZATIONS No Known Immunizations MEDICAL (GENERAL) HISTORY [...]
--- OUTSIDE RECORDS SUMMARY | 2017-02-08 15:33 | XMS REPORT ---
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 Active 851272596 Problem Insomnia, unspecified G47.00 Active 154752570 Problem Coronary atherosclerosis of unspecified type of vessel, [place] or graft I25.10 Active 736786806 Problem Gastroesophageal reflux disease, esophagitis presence not specified K21.9 Active 604272018 Problem Pseudogout M11.20 Active 683092492 Problem Mixed hyperlipidemia E78.2 Active 469577456 Problem 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 944419028 Problem Type 2 diabetes mellitus with hyperglycemia E11.65 Active 573363967679835 Problem Mood disorder F39 Active 49225917 Problem Chronic kidney disease, stage 3 N18.3 Active 465332412 ALLERGIES Substance Reaction Event Type Date Status Acetaminophen-Codeine #3 Failed Ameritox UDS- THC Drug Allergy Feb, Active SOCIAL HISTORY No smoking Hx information available PLAN OF CARE Activity Details Follow Up 4 Weeks Reason:DM VITAL SIGNS Height 73 in 2016-03-08 Weight 278.5 lbs 2016-03-08 Temperature 98.3 degrees Fahrenheit 2016-03-08 Heart Rate 82 bpm 2016-03-08 Respiratory Rate 22 2016-03-08 BMI 36.74 kg/m2 2016-03-08 Blood pressure systolic 142 mmHg 2016-03-08 Blood pressure diastolic 90 mmHg 2016-03-08 MEDICATIONS Medication Instructions Dosage Frequency Start Date End Date Duration Status Levemir FlexTouch 100 UNIT/ML Subcutaneous 2 times a day Inject 25 units 12h Jan, 160 days Active Glucometer as directed Dec, Active Tizanidine HCl 2 MG TAKE ONE TABLET BY MOUTH THREE TIMES DAILY Active Seroquel 50 mg Orally Once a day 3 Tablets 24h 15 Jan, 2014 30 days Active Nystatin 324633 UNIT/ML Mouth/Throat Four times a day 5 ml 6h Feb, Feb, 20 days Active Allopurinol 300 MG TAKE ONE TABLET BY MOUTH DAILY 90 Active Atorvastatin Calcium 10 mg TAKE ONE TABLET BY MOUTH DAILY 90 days Active NovoLog 100 UNIT/ML 30 units with meal, 10 units with snack Dec, Active Insulin Syringe 31G X 5/16 as directed Jan, Active Toprol XL 50 mg TAKE ONE TABLET BY MOUTH ONCE DAILY 90 days Active Omeprazole 40 mg Orally Once a day 1 capsule 24h May, 30 days Active Trulicity 0.75 MG/0.5ML Inject 0.5 ml Jan, 160 days Active RESULTS Name Result Date Reference Range A1C (IN HOUSE) 2016-03-08 A1C IN HOUSE 11.3 4.3 - 5.6 % Previous A1c 11.8 Lot [id number] Exp date 11/2017 PROCEDURES Procedure Date Ordered Related Diagnosis Body Site GLYCATED HEMOGLOBIN TEST Mar 08, 2016 Office Visit, Est Pt., Level 3 Mar 08, 2016 IMMUNIZATIONS No Known Immunizations
--- OUTSIDE RECORDS SUMMARY | 2017-02-08 15:33 | XMS REPORT ---
Author Author CHAPARRO MUJICA [facility] Address [address] [place] [address] Care Team Providers Care Welder 2Nd Shift Name Role Phone CHAPARRO MUJICA Unavailable PROBLEMS Type Condition ICD9-CM Code [id number] Code Onset Dates Condition Status SNOMED Code Problem Gout, unspecified M10.9 Active 27461288 Problem long-term 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 Active 832834662 Problem Insomnia, unspecified G47.00 Active 202147979 Problem Coronary atherosclerosis of unspecified type of vessel, [place] or graft I25.10 Active 449189460 Problem Gastroesophageal reflux disease, esophagitis presence not specified K21.9 Active 789677813 Problem Pseudogout M11.20 Active 599414887 Problem Mixed hyperlipidemia E78.2 Active 484517172 Problem 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
--- OUTSIDE RECORDS SUMMARY | 2017-02-08 15:33 | XMS REPORT ---
Author Author CHAPARRO MUJICA [facility] Address [address] [place] [address] Care Team Providers Care Batch Dumper Name Role Phone CHAPARRO MUJICA Unavailable PROBLEMS Type Condition ICD9-CM Code NWS11-WT Code Onset Dates Condition Status SNOMED Code Problem Gout, unspecified M10.9 Active 38218250 Problem senior care 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 Active 250538347 Problem Insomnia, unspecified G47.00 Active 108591135 Problem Coronary atherosclerosis of unspecified type of vessel, [place] or graft I25.10 Active 882251167 Problem Gastroesophageal reflux disease, esophagitis presence not specified K21.9 Active 098255184 Problem Pseudogout M11.20 Active 238282027 Problem Mixed hyperlipidemia E78.2 Active 688010854 Problem 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
--- OUTSIDE RECORDS SUMMARY | 2017-02-08 15:34 | XMS REPORT ---
Author Author CHAPARRO MUJICA [facility] Address [address] [place] [address] Care Team Providers Care Roll Shop Supervisor Name Role Phone CHAPARRO MUJICA Unavailable PROBLEMS Type Condition ICD9-CM Code [id number] Code Onset Dates Condition Status SNOMED Code Problem Gout, unspecified M10.9 Active 08581446 Problem USP 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 Active 738446931 Problem Insomnia, unspecified G47.00 Active 071337802 Problem Coronary atherosclerosis of unspecified type of vessel, [place] or graft I25.10 Active 041901335 Problem Gastroesophageal reflux disease, esophagitis presence not specified K21.9 Active 260279438 Problem Pseudogout M11.20 Active 814559221 Problem Mixed hyperlipidemia E78.2 Active 389935040 Problem 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
--- OUTSIDE RECORDS SUMMARY | 2017-02-08 15:34 | XMS REPORT ---
Author Author CHAPARRO MUJICA [facility] Address [address] [place] [address] Care Team Providers Care Wood Boatbuilder Apprentice Name Role Phone CHAPARRO MUJICA Unavailable PROBLEMS Type Condition ICD9-CM Code RQI27-BH Code Onset Dates Condition Status SNOMED Code Problem Gout, unspecified M10.9 Active 12182361 Problem termite renewal inspector 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 Active 564701416 Problem Insomnia, unspecified G47.00 Active 147794280 Problem Coronary atherosclerosis of unspecified type of vessel, [place] or graft I25.10 Active 738234131 Problem Gastroesophageal reflux disease, esophagitis presence not specified K21.9 Active 242814440 Problem Pseudogout M11.20 Active 359547221 Problem Mixed hyperlipidemia E78.2 Active 299047045 Problem 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 056028033 Problem Type 2 diabetes mellitus with hyperglycemia E11.65 Active 559699282478412 Problem Mood disorder F39 Active 56658880 Problem Chronic kidney disease, stage 3 N18.3 Active 884916739 ALLERGIES Substance Reaction Event Type Date Status Acetaminophen-Codeine #3 Failed [facility]itox UDS- THC Drug Allergy Mar, Active SOCIAL HISTORY Never Assessed PLAN OF CARE Activity Details Follow Up 2 Weeks Reason:cellulitis VITAL SIGNS Height 73 in 2016-04-01 Weight 291.1 lbs 2016-04-01 Temperature 98.1 degrees Fahrenheit 2016-04-01 Heart Rate 92 bpm 2016-04-01 Respiratory Rate 20 2016-04-01 BMI 38.40 kg/m2 2016-04-01 Blood pressure systolic 142 mmHg 2016-04-01 Blood pressure diastolic 94 mmHg 2016-04-01 MEDICATIONS Medication Instructions Dosage Frequency Start Date End Date Duration Status NovoLog 100 UNIT/ML 30 units with meal, 10 units with snack Dec, Active Hydrocodone-Acetaminophen 10-325 MG Orally every 6 hrs 1 tablet as needed 6h Mar, 10 days Active Omeprazole 40 mg Orally Once a day 1 capsule 24h May, 30 days Active Insulin Syringe 31G X /16 as directed Jan, Active Levemir FlexTouch 100 UNIT/ML Subcutaneous 2 times a day Inject 35 units 12h Jan, 53 days Active Trulicity 0.75 MG/0.5ML Inject 0.5 ml Jan, 160 days Active Seroquel 50 mg Orally Once a day 3 Tablets 24h Jan, 30 days Active Toprol XL 50 mg TAKE ONE TABLET BY MOUTH ONCE DAILY 90 days Active Amoxicillin 500 MG Orally 3 times a day 2 capsules 8h Feb,Mar 10 day(s) Active Allopurinol 300 MG TAKE ONE TABLET BY MOUTH DAILY 90 Active Glucometer as directed Dec, Active Atorvastatin Calcium 10 mg TAKE ONE [...]
--- OUTSIDE RECORDS SUMMARY | 2017-02-08 15:34 | XMS REPORT ---
Author Author CHAPARRO MUJICA [facility] Address [address] [place] [address] Care Team Providers Care Sausage Wrapper Name Role Phone CHAPARRO MUJICA Unavailable PROBLEMS Type Condition ICD9-CM Code [id number] Code Onset Dates Condition Status SNOMED Code Problem Gout, unspecified M10.9 Active 52876915 Problem [facility] 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 Active 179885899 Problem Insomnia, unspecified G47.00 Active 477145413 Problem Coronary atherosclerosis of unspecified type of vessel, [place] or graft I25.10 Active 647759307 Problem Gastroesophageal reflux disease, esophagitis presence not specified K21.9 Active 356191348 Problem Pseudogout M11.20 Active 188451426 Problem Mixed hyperlipidemia E78.2 Active 432235780 Problem 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 314551003 Problem Type 2 diabetes mellitus with hyperglycemia E11.65 Active 856683586981094 Problem Mood disorder F39 Active 32889380 Problem Chronic kidney disease, stage 3 N18.3 Active 034096671 ALLERGIES Unknown Allergies SOCIAL HISTORY No smoking Hx information available PLAN OF CARE VITAL SIGNS MEDICATIONS Medication Instructions Dosage Frequency Start Date End Date Duration Status Seroquel 50 mg Orally Once a day 3 Tablets 24h Jan, 30 days Active Levemir FlexTouch 100 UNIT/ML Subcutaneous 2 times a day Inject 35 units 12h Jan, 53 days Active NovoLog 100 UNIT/ML 30 units with meal, 10 units with snack Dec, Active Omeprazole 40 mg Orally Once a day 1 capsule 24h May, 30 days Active RESULTS No Results PROCEDURES No Known procedures IMMUNIZATIONS No Known Immunizations
--- OUTSIDE RECORDS SUMMARY | 2017-02-08 15:34 | XMS REPORT ---
Author Author CHAPARRO MUJICA [facility] Address [address] [place] [address] Care Team Providers Care Rn Relief Charge Name Role Phone CHAPARRO UMJICA Unavailable PROBLEMS Type Condition ICD9-CM Code [id number] Code Onset Dates Condition Status SNOMED Code Problem Gout, unspecified M10.9 Active 10824060 Problem detention 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 Active 544307982 Problem Insomnia, unspecified G47.00 Active 215231479 Problem Coronary atherosclerosis of unspecified type of vessel, [place] or graft I25.10 Active 762718429 Problem Gastroesophageal reflux disease, esophagitis presence not specified K21.9 Active 523537854 Problem Pseudogout M11.20 Active 170933375 Problem Mixed hyperlipidemia E78.2 Active 710653071 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
--- OUTSIDE RECORDS SUMMARY | 2017-02-08 15:36 | XMS REPORT ---
Author Author CHAPARRO MUJICA [facility] Address [address] [place] [address] Care Team Providers Care Automatic Transmission Mechanic Name Role Phone CHAPARRO MUJICA Unavailable PROBLEMS Type Condition ICD9-CM Code ANV15-WY Code Onset Dates Condition Status SNOMED Code Problem Gout, unspecified M10.9 Active 20480675 Problem USP 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 Active 920939807 Problem Insomnia, unspecified G47.00 Active 231598448 Problem Coronary atherosclerosis of unspecified type of vessel, [place] or graft I25.10 Active 984468432 Problem Gastroesophageal reflux disease, esophagitis presence not specified K21.9 Active 010622300 Problem Pseudogout M11.20 Active 727707034 Problem Mixed hyperlipidemia E78.2 Active 453107055 Problem 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
--- NOTE | 2017-02-08 15:41 | ED Lower Extremity ---
General Chief Complaint: Lower Extremity Stated Complaint: LT KNEE PAIN/SWELLING Source: patient Exam Limitations: no limitations History of Present Illness Time seen by provider: 15:39 Initial Comments To ER with left knee pain and swelling for the past 2-3 days. Patient has a history of pseudogout. He was admitted a few months ago for similar presentation of the right knee. He denies fevers or chills. Is also diabetic. Onset: other Severity: moderate Pain/Injury Location: left knee Modifying Factors: Worse With Movement Allergies and Home Medications Allergies Coded Allergies: No Known Drug Allergies (Unverified , 09/15/08) Home Medications Aspirin 81 Mg Tablet.dr, 81 MG PO HS, (Reported) Atorvastatin Calcium 10 Mg Tablet, 10 MG PO HS, (Reported) Clopidogrel Bisulfate 75 Mg Tablet, 75 MG PO HS, (Reported) Colchicine 0.6 Mg Capsule, 0.6 MG PO DAILY, #7 Ref 0 Prescribed by: LESIA DEMARCO on 09/20/16 1250 Dulaglutide 0.75 Mg/0.5 Ml Pen.injctr, 0.75 MG SQ Fr, (Reported) Febuxostat 80 Mg Tablet, 80 MG PO HS, (Reported) Insulin Aspart 100 Unit/1 Ml Susp, 30 UNIT SQ AC, (Reported) Insulin Detemir 100 Unit/1 Ml Vial, 35 UNIT SQ BID, (Reported) Metoprolol Succinate 50 Mg Tab, 50 MG PO HS, (Reported) Omeprazole 40 Mg Capsule.dr, 40 MG PO HS, (Reported) Quetiapine Fumarate 50 Mg Tablet, 100-150 MG PO HS, (Reported) TAKES 2-3 (50 MG) TABLETS AT BEDTIME Constitutional: see HPI EENTM: see HPI Respiratory: no symptoms reported Cardiovascular: no symptoms reported Genitourinary: no symptoms reported Musculoskeletal: see HPI Skin: no symptoms reported Psychiatric/Neurological: No Symptoms Reported Past Nevroea-Bzumxh-Kekrce Hx Patient Social History Drug of Choice: cannibus Type Used: Cigarettes 2nd Hand Smoke Exposure: Yes Recent Foreign Travel: No Contact w/Someone Who Travel: No Recent Hopitalizations: Yes Immunizations Up To Date Tetanus Booster (TDap): More than 5yrs PED Vaccines UTD: Yes Date of Influenza Vaccine: Dec 29, 2010 Seasonal Allergies Seasonal Allergies: No Surgeries History of Surgeries: Yes (STONES IN KIDNEYS) Surgeries: Abdominal, Cardiac, Coronary Stent, Gallbladder, Renal Respiratory History of Respiratory Disorde: No Cardiovascular History of Cardiac Disorders: Yes (has had 2 stents in the past) Cardiac Disorders: Coronary Artery Disease, High Cholesterol, Hypertension Neurological History of Neurological Disord: No Neurological Disorders: Neuropathy Reproductive System Hx Reproductive Disorders: No Sexually Transmitted Disease: No HIV/AIDS: No Genitourinary History of Genitourinary Disor: Yes Genitourinary Disorders: Kidney Stones, Renal Failure Gastrointestinal History of Gastrointestinal Di: Yes (S/P ASHLEY) Gastrointestinal Disorders: Gastroesophageal Reflux, Gall Bladder Disease Musculoskeletal History of Musculoskeletal Dis: Yes (R KNEE PAIN) Musculoskeletal Disorders: Gout Endocrine History of Endocrine Disorders: Yes Endocrine Disorders: Diabetes, Insulin dep HEENT History of HEENT Disorders: No Cancer History of Cancer: No Psychosocial History of Psychiatric Problem: No Behavioral Health Disorders: Anxiety Integumentary History of Skin or Integumenta: No Blood Transfusions History of Blood Disorders: No Adverse Reaction to a Blood Tr: No Family Medical History Family Medial History: Chest pain 03 MOTHER Family history: Arthritis 03 MOTHER Family history: Diabetes mellitus 03 MOTHER 09 BROTHER Family history: Gastrointestinal disease 03 MOTHER 09 BROTHER Family history: Thyroid disorder 03 MOTHER Headache 03 MOTHER Hypercholesterolemia 03 FATHER 03 MOTHER 09 BROTHER Myocardial infarction 03 FATHER 03 MOTHER No Family History of: Abdominal aortic aneurysm [place]'s disease Alcoholism Aphasia Cancer Cancer of colon Cataract Congenital heart disease Congestive heart failure Cystic fibrosis Dementia Dysphagia Family history: Allergy Family history: Alzheimer's disease Family history: Asthma Family history: Breast disease Family history: Cardiovascular disease Family history: Coronary thrombosis Family history: Glaucoma Family history: Hypertension Family history: Osteoporosis Hearing loss Heart disease Hereditary disease History of - anemia History of - disorder History of - respiratory disease History of drug abuse Human immunodeficiency virus (HIV) seropositivity Kidney disease Malignant neoplasm of lung Parkinson's disease Prostate cancer Psychotic disorder Seizure disorder Stroke Tuberculosis Visual impairment Physical Exam Vital Signs Vital Sign - Last 12Hours 02/08/17 15:29 Temp 95.6 Pulse 87 Resp 18 B/P (MAP) 137/105 (116) Pulse Ox 95 O2 Delivery Room Air Capillary Refill : General Appearance: WD/WN, no apparent distress HEENT: PERRL/EOMI, normal ENT inspection Neck: non-tender, full range of motion Respiratory: normal breath sounds, no respiratory distress, no accessory muscle use Gastrointestinal: normal bowel sounds, non tender Hips: bilateral hip non-tender, bilateral hip normal inspection, bilateral hip normal range of motion Legs: bilateral leg non-tender, bilateral leg normal inspection, bilateral leg no evidence of injury Knees: left knee swelling (there is a palpable knee effusion. There is no erythema or warmth to the knee. There are no sores. He has limited flexion of the knee due to pain and swelling. He is unable to fully extend the knee either because of pain.) Ankles: bilateral ankle non-tender, bilateral ankle normal inspection, bilateral ankle normal range of motion Feet: bilateral foot non-tender, bilateral foot normal inspection, bilateral foot normal range of motion Neurologic/Psychiatric: alert, normal mood/affect, oriented x 3 Skin: normal color, warm/dry Progress/Results/Core Measures Results/Orders Lab Results Laboratory Tests Test 02/08/17 15:58 02/08/17 16:09 Range/Units White Blood Count 15.4 H 4.3-11.0 10^3/uL Red Blood Count 5.16 4.35-5.85 10^6/uL Hemoglobin 14.3 13.3-17.7 G/DL Hematocrit 42 40-54 % Mean Corpuscular Volume 81 80-99 FL Mean Corpuscular Hemoglobin 28 25-34 PG Mean Corpuscular Hemoglobin Concent 34 32-36 G/DL Red Cell Distribution Width 15.4 H 10.0-14.5 % Platelet Count 222 130-400 10^3/uL Mean Platelet Volume 10.0 7.4-10.4 FL Neutrophils (%) (Auto) 73 42-75 % Lymphocytes (%) (Auto) 18 12-44 % Monocytes (%) (Auto) 6 0-12 % Eosinophils (%) (Auto) 2 0-10 % Basophils (%) (Auto) 1 0-10 % Neutrophils # (Auto) 11.3 H 1.8-7.8 X 10^3 Lymphocytes # (Auto) 2.8 1.0-4.0 X 10^3 Monocytes # (Auto) 0.9 0.0-1.0 X 10^3 Eosinophils # (Auto) 0.3 0.0-0.3 10^3/uL Basophils # (Auto) 0.1 0.0-0.1 10^3/uL Neutrophils % (Manual) 71 % Lymphocytes % (Manual) 23 % Monocytes % (Manual) 1 % Eosinophils % (Manual) 4 % Basophils % (Manual) 0 % Band Neutrophils 1 % Blood Morphology Comment NORMAL Sodium Level 137 135-145 MMOL/L Potassium Level 4.9 3.6-5.0 MMOL/L Chloride Level 100 98-107 MMOL/L Carbon Dioxide Level 23 21-32 MMOL/L Anion Gap 14 5-14 MMOL/L Blood Urea Nitrogen 31 H 7-18 MG/DL Creatinine 3.32 H 0.60-1.30 MG/DL Estimat Glomerular Filtration Rate 24 BUN/Creatinine Ratio 9 Glucose Level 153 H 70-105 MG/DL Calcium Level 9.4 8.5-10.1 MG/DL C-Reactive Protein High Sensitivity 2.50 H 0.00-0.50 MG/DL My Orders Orders - BENJAMIN ANAND APRN Cbc With Automated Diff (02/08/17 15:37) Erythrocyte Sedimentation Rate (02/08/17 15:37) Hs C Reactive Protein (02/08/17 15:37) Basic Metabolic Panel (02/08/17 15:37) Saline Lock/Iv-Start (02/08/17 15:37) Ketorolac Injection (Toradol Injection) (02/08/17 15:45) Fentanyl Injection (Sublimaze Injection (02/08/17 15:45) Body Fluid Cell Count (02/08/17 15:37) Body Fluid Culture (02/08/17 15:37) Lidocaine 2% Injection 20 Ml (Xylocaine (02/08/17 15:45) Bupivacaine 0.5% Injection (Sensorcaine (02/08/17 15:45) Manual Differential (02/08/17 15:58) Ns Iv 1000 Ml (Sodium Chloride 0.9%) (02/08/17 17:00) Hydrocodone/Apap 5/325 Tablet (Lortab 5 (02/08/17 17:00) Dexamethasone Injection (Decadron Inject (02/08/17 17:00) Medications Given in ED Current Medications Medications Dose Ordered Sig/Augusto Route Start Time Stop Time Status Last Admin Dose Admin Acetaminophen/ Hydrocodone Bitart 1 tab ONCE ONCE PO 17 17:00 02/08/17 17:01 DC 02/08/17 17:19 1 TAB Dexamethasone Sodium Phosphate 10 mg ONCE ONCE IV 02/08/17 17:00 02/08/17 17:01 DC 02/08/17 17:21 10 MG Fentanyl Citrate 50 mcg ONCE ONCE IVP 02/08/17 15:45 02/08/17 15:46 DC 02/08/17 15:58 50 MCG Ketorolac Tromethamine 15 mg ONCE ONCE IVP 02/08/17 15:45 02/08/17 15:46 DC 02/08/17 15:58 15 MG Lidocaine HCl 2 ml ONCE ONCE INJ 02/08/17 15:45 02/08/17 15:46 DC 02/08/17 17:19 2 ML Vital Signs/I&O Vital Sign - Last 12Hours 02/08/17 15:29 Temp 95.6 Pulse 87 Resp 18 B/P (MAP) 137/105 (116) Pulse Ox 95 O2 Delivery Room Air Departure Communication (Admissions) Progress Notes 1619- lab calls to report that the synovial fluid which was very sanguinous upon aspiration had clotted and is unable to have cell count performed. Impression Impression: Primary Impression: Pseudogout of left knee Additional Impression: Chronic renal failure Disposition: HOME, SELF-CARE Condition: Stable Departure-Patient Inst. Decision time for Depature: 17:34 Referrals: SARI MOJICA MD (PCP) Primary Care Physician CAHPARRO MUJICA (Family) Primary Care Physician Patient Instructions: Gout (DC), Lifestyle Changes to Manage Gout Add. Discharge Instructions: 1. medication as directed 2. return to er as needed for any increased swelling or pain to the knee or fevers All discharge instructions reviewed with patient and/or family. Voiced understanding. Scripts Hydrocodone/Acetaminophen ([place] 5-325 Tablet) 1 Each Tablet 1 EACH PO Q6H Y for PAIN-MODERATE, #30 TAB Prov: BENJAMIN ANAND APRN 02/08/17 Work/School Note: Work Release Form Date Seen in the Emergency Department: Feb 15, 2017 Return to Work: Feb 09, 2017 BENJAMIN ANAND APRN Feb 08, 2017 15:41
[2017-02-08] MEDS ORDERED: LIDOCAINE 2% 20 ML (XYLOCAINE) VIAL INJ ONE (15:45)
[2017-02-08] MEDS ORDERED: KETOROLAC 30 MG/ML VIAL IVP ONE (15:45)
[2017-02-08] MEDS ORDERED: fentaNYL INJECTION 100 MCG/2 ML AMP IVP ONE (15:45)
[2017-02-08 16:05] LABS: BASOPHILS # (AUTO) 0.1 10^3/uL (0.0-0.1); BASOPHILS % (AUTO) 1 % (0-10); EOSINOPHILS # (AUTO) 0.3 10^3/uL (0.0-0.3); EOSINOPHILS % (AUTO) 2 % (0-10); LYMPHOCYTES # (AUTO) 2.8 X 10^3 (1.0-4.0); LYMPHOCYTES % (AUTO) 18 % (12-44); MEAN CORPUSCULAR HEMOGLOBIN 28 PG (25-34); MEAN CORPUSCULAR HGB CONC 34 G/DL (32-36); MEAN CORPUSCULAR VOLUME 81 FL (80-99); MONOCYTES # (AUTO) 0.9 X 10^3 (0.0-1.0); MONOCYTES % (AUTO) 6 % (0-12); NEUTROPHILS # (AUTO) 11.3 X 10^3 (1.8-7.8); NEUTROPHILS % (AUTO) 73 % (42-75); PLATELET COUNT 222 10^3/uL (130-400); RED BLOOD COUNT 5.16 10^6/uL (4.35-5.85); RED CELL DISTRIBUTION WIDTH 15.4 % (10.0-14.5); WHITE BLOOD COUNT 15.4 10^3/uL (4.3-11.0)
[2017-02-08 16:17] LABS: BAND NEUTROPHILS 1 %; BASOPHILS % (MANUAL) 0 %; EOSINOPHILS % (MANUAL) 4 %; NEUTROPHILS % (MANUAL) 71 %
[2017-02-08 16:18] LABS: LYMPHOCYTES % (MANUAL) 23 %
[2017-02-08 16:22] LABS: CALCIUM 9.4 MG/DL (8.5-10.1); CREATININE SERUM 3.32 MG/DL (0.60-1.30); POTASSIUM 4.9 MMOL/L (3.6-5.0); hs C REACTIVE PROTEIN 2.5 MG/DL (0.00-0.50)
[2017-02-08] MEDS ORDERED: DEXAMETHASONE 10 MG/ML (DECADRON) 1 ML VIAL IV ONE (17:00)
[2017-02-08] MEDS ORDERED: NS IV 1000 ML 1,000 ML IV SCH (17:00)
[2017-02-08] MEDS ORDERED: HYDROcodone/APAP 5 MG/325 MG (LORTAB) TAB PO ONE (17:00)
[2017-02-08] MEDS: BUPIVACAINE 0.5% 30 ML (SENSORCAINE) VIAL INJ ONE ×2 (17:19→17:23)
[2017-02-08 17:33] LABS: ERYTHROCYTE SEDIMENTATION RATE 25 MM/HR (0-15)
[2017-02-08] MEDS ORDERED: HYDR-757 PO (17:36)
[2017-02-08 18:30] VITALS: BP 139/98
== END 2017-02-08 18:30 | disposition home or self-care (01) ==
LOC: EDUNIT# 15:23 → ER 15:24
DX: M11.262 Other chondrocalcinosis, left knee (principal); E11.22 Type 2 diabetes mellitus with diabetic chronic kidney disease; I12.9 Hypertensive chronic kidney disease with stage 1 through stage 4 chronic kidney disease, or unspecified chronic kidney disease; N18.9 Chronic kidney disease, unspecified; E11.40 Type 2 diabetes mellitus with diabetic neuropathy, unspecified; I25.10 Atherosclerotic heart disease of native coronary artery without angina pectoris; E78.00 Pure hypercholesterolemia, unspecified; K21.9 Gastro-esophageal reflux disease without esophagitis; F41.9 Anxiety disorder, unspecified; Z82.49 Family history of ischemic heart disease and other diseases of the circulatory system; Z87.19 Personal history of other diseases of the digestive system; Z77.22 Contact with and (suspected) exposure to environmental tobacco smoke (acute) (chronic); Z79.4 Long term (current) use of insulin; Z87.442 Personal history of urinary calculi; Z95.5 Presence of coronary angioplasty implant and graft
CPT/HCPCS: 36415; 80048; 85007; 85027; 85652; 86141; 87070; 87205

== ENCOUNTER 2017-02-13 18:56 | Emergency (ER) | payer SELFPAY ==
[~2017-02-13] VITALS: Ht 185.4 cm; Wt 129.3 kg
[~2017-02-13 18:56] MED LIST changes: +HYDR-757 PO
[2017-02-13 19:45] LABS: BASOPHILS # (AUTO) 0.1 10^3/uL (0.0-0.1); BASOPHILS % (AUTO) 0 % (0-10); EOSINOPHILS # (AUTO) 0.6 10^3/uL (0.0-0.3); EOSINOPHILS % (AUTO) 4 % (0-10); LYMPHOCYTES # (AUTO) 1.8 X 10^3 (1.0-4.0); LYMPHOCYTES % (AUTO) 14 % (12-44); MEAN CORPUSCULAR HEMOGLOBIN 27 PG (25-34); MEAN CORPUSCULAR HGB CONC 33 G/DL (32-36); MEAN CORPUSCULAR VOLUME 82 FL (80-99); MEAN PLATELET VOLUME 9.8 FL (7.4-10.4); MONOCYTES # (AUTO) 0.8 X 10^3 (0.0-1.0); MONOCYTES % (AUTO) 6 % (0-12); NEUTROPHILS # (AUTO) 9.8 X 10^3 (1.8-7.8); NEUTROPHILS % (AUTO) 76 % (42-75); PLATELET COUNT 261 10^3/uL (130-400); RED BLOOD COUNT 4.29 10^6/uL (4.35-5.85); RED CELL DISTRIBUTION WIDTH 14.9 % (10.0-14.5)
--- NOTE | 2017-02-13 19:55 | Diagnostic Imaging Report ---
INDICATION: Gout. EXAMINATION: Three views of the left knee. FINDINGS: No bony erosion or abnormal soft tissue calcifications. The lateral view showed no definite joint effusion or loose body. IMPRESSION: No acute appearing abnormality. Dictated by: Dictated on workstation # [id number]
--- NOTE | 2017-02-13 19:56 | ED Lower Extremity ---
General Chief Complaint: Lower Extremity Stated Complaint: L KNEE SWELLING Nursing Triage Note: Pt c/o gout in left knee. Nursing Sepsis Screen: No Definite Risk Source: patient, old records History of Present Illness Time seen by provider: 19:14 Initial Comments C/O LEFT KNEE PAIN AND SWELLING FOR AT LEAST 2 WEEKS HAS PAIN TO DISTAL ASPECT OF LEFT POSTERIOR THIGH RADIATING TO POSTERIOR ASPECT OF LEFT KNEE NO FEVER NO NEW PARESTHESIAS OR MOTOR DEFICITS--PT DOES HAVE PERIPHERAL NEUROPATHY AND IS DIABETIC NO KNOWN INJURY NO OPEN WOUNDS/SORES NO REDNESS TO KNEE PT HAS HISTORY OF GOUT/PSEUDOGOUT, AND THIS IS A FREQUENT PROBLEM, ESPECIALLY OVER THE PAST YEAR. HAS ALSO PERIODICALLY HAD SIMILAR IN OTHER JOINTS OF BOTH LEGS AND FEET, BUT SEEMS WORST AND MOST FREQUENTLY IN LEFT KNEE. PT WAS SEEN HERE ON 02/08/17 FOR THE SAME AND FLUID WAS ASPIRATED FROM THE KNEE- -CULTURES DONE SHOWED NO GROWTH / NO BACTERIA GIVEN RX FOR HYDROCODONE PT STATES NO RELIEF WITH 4 HYDROCODONE AT 1430 TODAY PCP: TORRI-TESFAYE, INFORMATION MANAGER CHAPARRO MJUICA MANAGER VALIDATION: DR. BOWMAN Allergies and Home Medications Allergies Coded Allergies: No Known Drug Allergies (Unverified , 09/15/08) Home Medications Aspirin 81 Mg Tablet.dr, 81 MG PO HS, (Reported) Atorvastatin Calcium 10 Mg Tablet, 10 MG PO HS, (Reported) Clopidogrel Bisulfate 75 Mg Tablet, 75 MG PO HS, (Reported) Colchicine 0.6 Mg Capsule, 0.6 MG PO DAILY, #7 Ref 0 Prescribed by: LESIA DEMARCO on 09/20/16 1250 Colchicine 0.6 Mg Capsule, 0.6 MG PO UD, #10 Prescribed by: ANGELIA CHAMORRO on 02/13/17 2120 Dulaglutide 0.75 Mg/0.5 Ml Pen.injctr, 0.75 MG SQ Fr, (Reported) Febuxostat 80 Mg Tablet, 80 MG PO HS, (Reported) Hydrocodone/Acetaminophen 1 Each Tablet, 1 EACH PO Q6H PRN for PAIN-MODERATE, # 30 Prescribed by: BENJAMIN ANAND on 02/08/17 1736 Insulin Aspart 100 Unit/1 Ml Susp, 30 UNIT SQ AC, (Reported) Insulin Detemir 100 Unit/1 Ml Vial, 35 UNIT SQ BID, (Reported) Methylprednisolone 4 Mg Tab.ds.pk, 4 MG PO UD, #1 Prescribed by: ANGELIA CHAMORRO on 02/13/172119 Metoprolol Succinate 50 Mg Tab, 50 MG PO HS, (Reported) Omeprazole 40 Mg Capsule.dr, 40 MG PO HS, (Reported) Quetiapine Fumarate 50 Mg Tablet, 100-150 MG PO HS, (Reported) TAKES 2-3 (50 MG) TABLETS AT BEDTIME Constitutional: no symptoms reported Respiratory: no symptoms reported Cardiovascular: no symptoms reported Musculoskeletal: see HPI Skin: no symptoms reported Psychiatric/Neurological: See HPI Past Zbjhaxo-Hqcjgb-Cfmfan Hx Patient Social History Alcohol Use: Denies Use Recreational Drug Use: Yes (THC, ) Drug of Choice: THC Smoking Status: Current Everyday Smoker (1 PPD) Type Used: Cigarettes 2nd Hand Smoke Exposure: Yes Recent Foreign Travel: No Contact w/Someone Who Travel: No Recent Infectious Disease Expo: No Recent Hopitalizations: Yes Physical Abuse: No Sexual Abuse: No Mistreated: No Fear: No Immunizations Up To Date Tetanus Booster (TDap): Unknown PED Vaccines UTD: Yes Date of Influenza Vaccine: Dec 29, 2010 Seasonal Allergies Seasonal Allergies: No Surgeries History of Surgeries: Yes ("GROWTH UNDER ABDOMEN" REMOVED--BENIGN, PER PT; URETERAL STENTS; CARDIAC CATHS--STENTS X 2) Surgeries: Abdominal, Cardiac, Coronary Stent, Gallbladder, Renal Respiratory History of Respiratory Disorde: No Cardiovascular History of Cardiac Disorders: Yes (CARDIAC CATHS--STENTS X 2 --LAST CATH ) Cardiac Disorders: Coronary Artery Disease, High Cholesterol, Hypertension Neurological History of Neurological Disord: Yes (PERIPHERAL NEUROPATHY) Neurological Disorders: Neuropathy Reproductive System Hx Reproductive Disorders: No Sexually Transmitted Disease: No HIV/AIDS: No Genitourinary History of Genitourinary Disor: Yes (CHRONIC RENAL FAILURE/INSUFFICIENCY--SEEN [employer] X 1 PRIOR TO CARDIAC CATH 07/2016, BUT OTHERWISE DOES NOT SEE [employer]) Genitourinary Disorders: Kidney Stones, Renal Failure Gastrointestinal History of Gastrointestinal Di: Yes (S/P ASHLEY) Gastrointestinal Disorders: Gastroesophageal Reflux, Gall Bladder Disease Musculoskeletal History of Musculoskeletal Dis: Yes (CHRONIC KNEE PAIN, ANKLE PAIN, FOOT PAIN ; PSEUDO GOUT ) Musculoskeletal Disorders: Gout Endocrine History of Endocrine Disorders: Yes Endocrine Disorders: Diabetes, Insulin dep HEENT History of HEENT Disorders: No Cancer History of Cancer: No Psychosocial History of Psychiatric Problem: Yes Behavioral Health Disorders: Anxiety Suicide Risk Score: 1 Integumentary History of Skin or Integumenta: Yes (MULTIPLE EPISODES OF CELLULITIS) Blood Transfusions History of Blood Disorders: No Adverse Reaction to a Blood Tr: No Family Medical History Family Medial History: Chest pain 03 MOTHER Family history: Arthritis 03 MOTHER Family history: Diabetes mellitus 03 MOTHER 09 BROTHER Family history: Gastrointestinal disease 03 MOTHER 09 BROTHER Family history: Thyroid disorder 03 MOTHER Headache 03 MOTHER Hypercholesterolemia 03 FATHER 03 MOTHER 09 BROTHER Myocardial infarction 03 FATHER 03 MOTHER No Family History of: Abdominal aortic aneurysm Niraj's disease Alcoholism Aphasia Cancer Cancer of colon Cataract Congenital heart disease Congestive heart failure Cystic fibrosis Dementia Dysphagia Family history: Allergy Family history: Alzheimer's disease Family history: Asthma Family history: Breast disease Family history: Cardiovascular disease Family history: Coronary thrombosis Family history: Glaucoma Family history: Hypertension Family history: Osteoporosis Hearing loss Heart disease Hereditary disease History of - anemia History of - disorder History of - respiratory disease History of drug abuse Human immunodeficiency virus (HIV) seropositivity Kidney disease Malignant neoplasm of lung Parkinson's disease Prostate cancer Psychotic disorder Seizure disorder Stroke Tuberculosis Visual impairment Physical Exam Vital Signs Vital Sign - Last 12Hours 02/13/17 19:00 Pulse 90 Resp 18 B/P (MAP) 156/109 (125) Pulse Ox 99 O2 Delivery Room Air Capillary Refill : Less Than 3 Seconds General Appearance: WD/WN, no apparent distress, other (WALKS IN WITH CRUTCHES) Cardiovascular: regular rate, rhythm, no murmur Respiratory: normal breath sounds Hips: bilateral hip normal inspection Legs: bilateral leg normal inspection Knees: right knee normal inspection, left knee other (LEFT KNEE WITH MILD SWELLING AND EFFUSION. MARKED TENDERNESS--EXAGGERATED PAIN RESPONSE. LIMITED ROM IN FLEXION AND EXTENSION DUE TO PAIN. HAS SLIGHTLY DECREASE SENSATION TO LIGHT TOUCH-CHRONIC/STABLE; MOTOR/VASCULAR INTACT. ) Ankles: bilateral ankle normal inspection Feet: bilateral foot normal inspection Neurologic/Tendon: normal motor functions, normal tendon functions Neurologic/Psychiatric: button cutter II-XII nml as tested, alert, normal mood/affect, oriented x 3 Skin: normal color, warm/dry, No rash Progress/Results/Core Measures Results/Orders Lab Results Laboratory Tests Test 02/13/17 19:35 02/13/17 20:30 Range/Units White Blood Count 13.0 H 4.3-11.0 10^3/uL Red Blood Count 4.29 L 4.35-5.85 10^6/uL Hemoglobin 11.6 L 13.3-17.7 G/DL Hematocrit 35 L 40-54 % Mean Corpuscular Volume 82 80-99 FL Mean Corpuscular Hemoglobin 27 25-34 PG Mean Corpuscular Hemoglobin Concent 33 32-36 G/DL Red Cell Distribution Width 14.9 H 10.0-14.5 % Platelet Count 261 130-400 10^3/uL Mean Platelet Volume 9.8 7.4-10.4 FL Neutrophils (%) (Auto) 76 H 42-75 % Lymphocytes (%) (Auto) 14 12-44 % Monocytes (%) (Auto) 6 0-12 % Eosinophils (%) (Auto) 4 0-10 % Basophils (%) (Auto) 0 0-10 % Neutrophils # (Auto) 9.8 H 1.8-7.8 X 10^3 Lymphocytes # (Auto) 1.8 1.0-4.0 X 10^3 Monocytes # (Auto) 0.8 0.0-1.0 X 10^3 Eosinophils # (Auto) 0.6 H 0.0-0.3 10^3/uL Basophils # (Auto) 0.1 0.0-0.1 10^3/uL Erythrocyte Sedimentation Rate 55 H 0-15 MM/HR Sodium Level 139 135-145 MMOL/L Potassium Level 5.1 H 3.6-5.0 MMOL/L Chloride Level 106 98-107 MMOL/L Carbon Dioxide Level 22 21-32 MMOL/L Anion Gap 11 5-14 MMOL/L Blood Urea Nitrogen 42 H 7-18 MG/DL Creatinine 3.86 #H 0.60-1.30 MG/DL Estimat Glomerular Filtration Rate 20 BUN/Creatinine Ratio 11 Glucose Level 149 H 70-105 MG/DL Uric Acid 5.0 2.6-7.2 MG/DL Calcium Level 9.2 8.5-10.1 MG/DL Total Bilirubin 0.2 0.1-1.0 MG/DL Aspartate Amino Transf (AST/SGOT) 21 5-34 U/L Alanine Aminotransferase (ALT/SGPT) 16 0-55 U/L Alkaline Phosphatase 79 40-136 U/L Total Protein 7.5 6.4-8.2 GM/DL Albumin 3.5 3.2-4.5 GM/DL Urine Color YELLOW Urine Clarity CLEAR Urine pH 6 5-9 Urine Specific [place] 1.015 L 1.016-1.022 Urine Protein 4+ NEGATIVE Urine Glucose (UA) NEGATIVE NEGATIVE Urine Ketones NEGATIVE NEGATIVE Urine Nitrite NEGATIVE NEGATIVE Urine Bilirubin NEGATIVE NEGATIVE Urine Urobilinogen NORMAL NORMAL MG/DL Urine Leukocyte Esterase NEGATIVE NEGATIVE Urine RBC (Auto) 3+ H NEGATIVE Urine RBC 5-10 H /HPF Urine WBC 5-10 H /HPF Urine Squamous Epithelial Cells 2-5 /HPF Urine Crystals NONE /LPF Urine Bacteria TRACE /HPF Urine Casts NONE /LPF Urine Mucus NEGATIVE /LPF Urine Culture Indicated YES Urine Opiates Screen POSITIVE H NEGATIVE Urine Oxycodone Screen NEGATIVE NEGATIVE Urine Methadone Screen NEGATIVE NEGATIVE Urine Propoxyphene Screen NEGATIVE NEGATIVE Urine Barbiturates Screen NEGATIVE NEGATIVE Ur Tricyclic Antidepressants Screen POSITIVE H NEGATIVE Urine Phencyclidine Screen NEGATIVE NEGATIVE Urine Amphetamines Screen NEGATIVE NEGATIVE Urine Methamphetamines Screen NEGATIVE NEGATIVE Urine Benzodiazepines Screen NEGATIVE NEGATIVE Urine Cocaine Screen NEGATIVE NEGATIVE Urine Cannabinoids Screen POSITIVE H NEGATIVE My Orders Orders - ANGELIA CHAMORRO DO Knee, Left, 3 Views (02/13/17 19:14) Saline Lock/Iv-Start (02/13/17 19:18) Cbc With Automated Diff (02/13/17 19:18) Comprehensive Metabolic Panel (02/13/17 19:18) Erythrocyte Sedimentation Rate (02/13/17 19:18) Uric Acid (02/13/17 19:18) Drug Screen Stat (Urine) (02/13/17 19:18) Ua Culture If Indicated (02/13/17 19:18) Ct Extremity Lower Left Wo (02/13/17 20:06) Methylprednisolone Sod Succ (Solu-Medrol (02/13/17 20:30) 1/2 Ns Iv Solution (0.45% Sodium Chlorid (02/13/17 20:30) Urine Culture (02/13/17 20:30) Fentanyl Injection (Sublimaze Injection (02/13/17 20:53) Fentanyl Injection (Sublimaze Injection (02/13/17 20:54) Medications Given in ED Current Medications Medications Dose Ordered Sig/Augusto Route Start Time Stop Time Status Last Admin Dose Admin Methylprednisolone Sodium Succinate 125 mg ONCE ONCE IVP 02/13/17 20:30 02/13/17 20:31 DC 02/13/17 20:21 125 MG Vital Signs/I&O Vital Sign - Last 12Hours 02/13/17 02/13/17 19:00 21:40 Pulse 90 84 Resp 18 18 B/P (MAP) 156/109 (125) Pulse Ox 99 99 O2 Delivery Room Air Room Air Intake and Output 02/14/17 00:00 Intake Total 1000 ml Balance 1000 ml Blood Pressure Mean: 125 Progress Note : Progress Note PRIOR TO DISMISSAL, PT AMBULATED TO AND FROM THE BATHROOM ON HIS OWN WITHOUT THE USE OF CRUTCHES, WITHOUT DIFFICULTY Diagnostic Imaging Comments XRAYS LEFT KNEE--NO ACUTE PROCESS, PER RADIOLOGIST REPORT @ 1954 CT OF LEFT KNEE--SUB Q EDEMA, JOINT EFFUSION AND PROBABLE MILD CHRONIC EXTRA- ARTICULAR CORTICAL EROSIONS OFF THE POSTEROLATERAL FEMORAL CONDYLE. NO ABNORMAL SOFT TISSUE CALCIFICATIONS. NO LOOSE BODY. MEJIA'S CYST SUSPECTED. PER RADIOLOGIST REPORT @ 2119 Reviewed: Reviewed by Me Departure Impression Impression: Primary Impression: Pseudogout of left knee Additional Impressions: POSSIBLE MEJIA'S CYST LEFT KNEE Chronic pain of left knee HX OF GOUT AND PSEUDOGOUT Disposition: HOME, SELF-CARE Condition: Stable Departure-Patient Inst. Referrals: SARI MOJICA MD (PCP) Primary Care Physician CHAPARRO MUJICA (Family) Primary Care Physician VINCE FLORES DO ORTHO 4 STATES Patient Instructions: Mejia's Cyst (DC), Calcium Pyrophosphate Deposition Disease (Pseudogout), Gout (DC), Pseudogout (DC) Add. Discharge Instructions: USE CRUTCHES NEEDED FOR PAIN CONTINUE YOUR CURRENT MEDICATIONS TAKE YOUR HOME HYDROCODONE NEEDED FOR PAIN FOLLOW UP WITH DR. FLORES / LUL 4 STATES THIS WEEK FOR FURTHER CARE All discharge instructions reviewed with patient and/or family. Voiced understanding. Scripts Colchicine (Colchicine) 0.6 Mg Capsule 0.6 MG PO UD, #10 CAP Prov: ANGELIA CHAMORRO DO 02/13/17 Methylprednisolone (Medrol) 4 Mg Tab.ds.pk 4 MG PO UD, #1 PKG Prov: ANGELIA CHAMORRO DO 02/13/17 ANGELIA CHAMORRO DO Feb 13, 2017 19:56
[2017-02-13 20:03] LABS: ERYTHROCYTE SEDIMENTATION RATE 55 MM/HR (0-15)
[2017-02-13 20:05] LABS: ALBUMIN 3.5 GM/DL (3.2-4.5); BILIRUBIN,TOTAL 0.2 MG/DL (0.1-1.0); CALCIUM 9.2 MG/DL (8.5-10.1); CREATININE SERUM 3.86 MG/DL (0.60-1.30); POTASSIUM 5.1 MMOL/L (3.6-5.0); TOTAL PROTEIN 7.5 GM/DL (6.4-8.2)
[2017-02-13] MEDS ORDERED: methylPREDNISolone 125 MG (Solu-MEDROL) VIAL IVP ONE (20:30)
[2017-02-13] MEDS ORDERED: 1/2 NS IV SOLUTION 1,000 ML IV SCH (20:30)
[2017-02-13 20:41] LABS: BILIRUBIN,URINE NEGATIVE (NEGATIVE); KETONES,URINE NEGATIVE (NEGATIVE); LEUKOCYTE ESTERASE ,URINE NEGATIVE (NEGATIVE); NITRITE,URINE NEGATIVE (NEGATIVE); PH,URINE 6 (5-9); PROTEIN,URINE 4+ (NEGATIVE); UROBILINOGEN,URINE NORMAL (NORMAL)
[2017-02-13] MEDS ORDERED: fentaNYL INJECTION 100 MCG/2 ML AMP IVP STA (20:53)
[2017-02-13] MEDS ORDERED: fentaNYL INJECTION 100 MCG/2 ML AMP ONE (20:54)
--- NOTE | 2017-02-13 21:07 | Diagnostic Imaging Report ---
PROCEDURE: CT left lower extremity without contrast. TECHNIQUE: Multiple contiguous axial images were obtained through the left lower extremity without the use of intravenous contrast. Sagittal and coronal reformations were then performed. INDICATION: Gout. FINDINGS: Atherosclerotic vascular calcifications are noted. There is a small retropatellar knee joint effusion. Incidental bipartite patella present. No bony destruction is found. There appears to be is a small popliteal fossa Mejia's cyst. No abnormal soft tissue calcifications. No articular incongruity. There is no fracture. There is likely some chronic marginal erosion off the posterolateral aspect of the extra-articular femoral condyle. There is some generalized subcutaneous edema. IMPRESSION: Subcutaneous edema, joint effusion and probable mild chronic extra-articular cortical erosions off the posterolateral femoral condyle. No abnormal soft tissue calcifications. No loose body. No fracture. No acute osseous pathology. Mejia's cyst suspected. Dictated by: Dictated on workstation # [id number]
[2017-02-13] MEDS ORDERED: COLC0.6C3 PO (21:20)
[2017-02-13] MEDS ORDERED: METH4TAB PO (21:20)
[2017-02-13 21:40] VITALS: BP 146/89
== END 2017-02-13 21:39 | disposition home or self-care (01) ==
LOC: EDUNIT# 18:56 → ER 18:57
DX: M25.562 Pain in left knee (principal); G89.29 Other chronic pain; F12.10 Cannabis abuse, uncomplicated; F17.210 Nicotine dependence, cigarettes, uncomplicated; I25.10 Atherosclerotic heart disease of native coronary artery without angina pectoris; E11.40 Type 2 diabetes mellitus with diabetic neuropathy, unspecified; E11.22 Type 2 diabetes mellitus with diabetic chronic kidney disease; I12.9 Hypertensive chronic kidney disease with stage 1 through stage 4 chronic kidney disease, or unspecified chronic kidney disease; N18.9 Chronic kidney disease, unspecified; K21.9 Gastro-esophageal reflux disease without esophagitis; F41.9 Anxiety disorder, unspecified; E78.00 Pure hypercholesterolemia, unspecified; Z95.5 Presence of coronary angioplasty implant and graft; Z96.0 Presence of urogenital implants; Z82.49 Family history of ischemic heart disease and other diseases of the circulatory system; Z79.82 Long term (current) use of aspirin; Z79.4 Long term (current) use of insulin
CPT/HCPCS: 36415; 73562; 73700; 80053; 80306; 81000; 84550; 85025; 85652; 87088

== ENCOUNTER → 2017-07-05 | Outpatient (CLI) | payer OTHER ==
[~2017-07-05] MED LIST changes: +HYDR-34 PO; -HYDR-3816 PO; +METH4TAB PO; +NAPR-915 PO; -NAPR500T4 PO
[2017-07-05 10:06] LABS: ALBUMIN 3.5 GM/DL (3.2-4.5); BILIRUBIN,TOTAL 0.2 MG/DL (0.1-1.0); CALCIUM 8.6 MG/DL (8.5-10.1); CREATININE SERUM 3.92 MG/DL (0.60-1.30); POTASSIUM 4.5 MMOL/L (3.6-5.0); TOTAL PROTEIN 7.3 GM/DL (6.4-8.2)
== END ==
LOC: LAB 09:16
PROVIDERS: ATTEND Surgery
DX: Z02.71 Encounter for disability determination (principal)
CPT/HCPCS: 36415; 80053

== ENCOUNTER 2017-12-06 13:37 | Emergency (ER) | payer SELFPAY ==
[~2017-12-06] VITALS: Ht 185.4 cm; Wt 131.5 kg
[~2017-12-06 13:37] MED LIST changes: +HYDR-4226 PO; -HYDR-757 PO; +INDO50CA11 PO; -OXYC-197 PO; +OXYC1TAB87 PO
--- OUTSIDE RECORDS SUMMARY | 2017-12-06 13:44 | XMS REPORT ---
Author Author CHAPARRO MUJICA Organization [facility] Address [address] [place] [address] Care Team Providers Care Reports Analyst Name Role Phone CHAPARRO MUJICA Unavailable PROBLEMS Type Condition ICD9-CM Code QAM51-WU Code Onset Dates Condition Status SNOMED Code Problem 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 704946672 Problem Mood disorder F39 Active 18834066 Problem Chronic kidney disease, stage 3 N18.3 Active 867483812 Problem Chronic kidney disease, stage V (very severe) N18.5 Active 144545249 Problem Essential hypertension I10 Active 64384024 Problem Pseudogout M11.20 Active 900765383 Problem Mixed hyperlipidemia E78.2 Active 099782158 Problem Primary osteoarthritis of left knee M17.12 Active [id number] Problem Gout of left knee due to renal impairment, unspecified chronicity M10.362 Active 136608056 Problem Hypertriglyceridemia E78.1 Active 891554486 Problem Gastroesophageal reflux disease, esophagitis presence not specified K21.9 Active 176307353 Problem Coronary atherosclerosis of unspecified type of vessel, flandreau or graft I25.10 Active 951363800 Problem Gout, unspecified M10.9 Active 70577341 Problem snf 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 Active 703098634 Problem Insomnia, unspecified G47.00 Active 886984073 Problem Type 2 diabetes mellitus with hyperglycemia E11.65 Active [id number] ALLERGIES No Information ENCOUNTERS Encounter Location Date Diagnosis [facility] [address] [facility] [id number] [address] Oct, Essential hypertension I10 ; Coronary atherosclerosis of unspecified type of vessel, flandreau or graft I25.10 ; Type 2 diabetes mellitus with hyperglycemia E11.65 and Gout, unspecified M10.9 [facility] [address] [facility] [id number] [place] [address] Oct, Chronic kidney disease, stage V (very severe) N18.5 [place] [id number] [place] [address] 40565- 4705 Oct, Mixed hyperlipidemia E78.2 [place] [address] [place] [id number] [place] [address] 82920- 6255 Sep, Type 2 diabetes mellitus with hyperglycemia E11.65 [place] [address] [place] [id number] [place] [address] 14982- 6951 Sep, Mixed hyperlipidemia E78.2 [place] [address] [place] [id number] [place] [address] 63938- 7783 Sep, Chronic kidney disease, stage V (very severe) N18.5 [place] [address] [place] [id number] [place] [address] 40224- 0181 Sep, Type 2 diabetes mellitus with hyperglycemia E11.65 and Essential hypertension I10 [place] [address] [place] [id number] [place] [address] 45180- 7212 Sep, Type 2 diabetes mellitus with hyperglycemia E11.65 [place] [id number] [place] [address] 42535- 8300 Aug, Gout, unspecified M10.9 ; Gastroesophageal reflux disease, esophagitis presence not specified K21.9 ; Mood disorder F39 and Coronary atherosclerosis of unspecified type of vessel, flandreau or graft I25.10 [place] [id number] [place] [address] 49123- 3757 Aug, [place] [id number] [place] [address] 12012- 5098 June, Type 2 diabetes mellitus with hyperglycemia E11.65 [place] [address] [place] [id number] [place] [address] 55105- 4038 May, Mood disorder F39 ; Gastroesophageal reflux disease, esophagitis presence not specified K21.9 ; Gout, unspecified M10.9 ; Coronary atherosclerosis of unspecified type of vessel, flandreau or graft I25.10 and Type 2 diabetes mellitus with hyperglycemia E11.65 [place] [id number] [place] [address] 49448- 2988 May, Type 2 diabetes mellitus with hyperglycemia E11.65 [place] [address] [place] [id number] [place] [address] 27341- 3376 Apr, Diabetes E11.9 and Mood disorder F39 [place] [address] [place] [id number] [place] [address] 50755- 5050 15 Mar, 2017 Primary osteoarthritis of left knee M17.12 and Tear of lateral meniscus of left knee, unspecified tear type, unspecified whether old or current tear, initial encounter S83.282A [place] [address] [place] [id number] [place] [address] 50785- 9247 Feb, Mood disorder F39 [place] [address] [place] [id number] [place] [address] 16428- 0729 Feb, Pseudogout M11.20 [place] [address] [place] [id number] [place] [address] 80649- 4075 Jan, Other intermediate frame tender (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 [facility] [address] [place] [id number] [place] [address] 59682 -8633 Jan, [place] [address] [place] [id number] [place] [address] 62959- 2461 Jan, Pseudogout M11.20 ; Type 2 diabetes mellitus with hyperglycemia E11.65 and Other intermediate frame tender (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 [place] [address] [place] [id number] [place] [address] 86563- 0775 Jan, Gout of left knee due to renal impairment, unspecified chronicity M10.362 ; Type 2 diabetes mellitus with diabetic nephropathy E11.21 ; Synovial cyst of popliteal space [Mejia], left knee M71.22 and Low back pain M54.5 [facility] [address] [place] [id number] [place] [address] 25887- 7920 Dec, Pseudogout M11.20 [place] [address] [place] [id number] [place] [address] 26550- 2767 14 Dec, 2016 [place] [address] 92033- 3203 Dec, Type 2 diabetes mellitus with diabetic nephropathy E11.21 and Right anterior knee pain M25.561 [place] [address] [place] [id number] [place] [address] 58932- 1992 Nov, Pseudogout M11.20 [place] [address] [place] [id number] [place] [address] 64186- 6733 Nov, Pseudogout M11.20 ; Chronic kidney disease, stage 3 N18.3 ; Mixed hyperlipidemia E78.2 ; Gout, unspecified M10.9 ; Coronary atherosclerosis of unspecified type of vessel, flandreau or graft I25.10 ; Mood disorder F39 and Gastroesophageal reflux disease, esophagitis presence not specified K21.9 [place] [address] [place] [id number] [place] [address] 71123- 4005 Nov, [place] [address] [place] [id number] [place] [address] 37621- 3165 Oct, Pseudogout M11.20 [place] [address] [place] [id number] [place] [address] 57935- 3751 Sep, Pseudogout M11.20 [place] [address] [place] [id number] [place] [address] 53778- 7800 Sep, Pseudogout M11.20 [place] [address] [place] [id number] [place] [address] 13957- 2310 Sep, [place] [address] [place] [id number] [place] [address] [id number] Aug, [place] [address] [place] [id number] [place] [address] 20692- 8836 Aug, Diabetes E11.9 ; Chronic kidney disease, stage 3 N18.3 ; Hyperuricemia E79.0 ; Mixed hyperlipidemia E78.2 ; Gastroesophageal reflux disease, esophagitis presence not specified K21.9 ; Gout, unspecified M10.9 ; Coronary atherosclerosis of unspecified type of vessel, flandreau or graft I25.10 and Mood disorder F39 [place] [address] [place] [id number] [place] [address] 97518- 9536 June, [place] [address] [place] [id number] [place] [address] 93474- 7527 June, [place] [address] 11191- 0938 June, [place] [address] [place] [id number] [place] [address] 00291- 1789 May, Chronic renal failure, stage 3 (moderate) N18.3 [place] [address] [place] [id number] [place] [address] 92920- 3574 May, Diabetes E11.9 [place] [address] 28917- 7793 May, [place] [address] [place] [id number] [place] [address] 47088- 2375 Apr, [place] [address] [place] [id number] [place] [address] 04102- 8278 Apr, [place] [address] [place] [id number] [place] [address] 44632- 0940 Apr, Cellulitis of right lower extremity L03.115 and Diabetes E11.9 [place] [address] [place] [id number] [place] [address] 10047- 4631 Apr, Type 2 diabetes mellitus with hyperglycemia E11.65 [place] [address] [place] [id number] [place] [address] 02949- 7425 Mar, Cellulitis of right lower extremity L03.115 and Low back pain M54.5 [place] [address] [place] [id number] [place] [address] 82636- 3957 Mar, [place] [address] [place] [id number] [place] [address] 83698- 1088 Mar, Cellulitis of right lower extremity L03.115 [place] [address] [place] [address] 55095- 1255 Mar, Cellulitis of right lower extremity L03.115 [place] [address] [place] [address] 09163- 4779 Feb, Cellulitis of right lower extremity L03.115 [place] [address] [place] [address] 36518- 5132 Feb, Cellulitis of right lower extremity L03.115 [place] [address] [place] [address] 07790- 4588 Feb, [place] [address] [place] [address] 66174- 6738 Feb, Leukocytosis, unspecified type D72.829 ; Chronic renal failure, stage 3 (moderate) N18.3 and Type 2 diabetes mellitus with hyperglycemia E11.65 [place] [address] [place] [address] 17336- 2298 Feb, Leukocytosis, unspecified type D72.829 [place] [address] [address]- 4669 Feb, [place] [address] [place] [address] 80994- 3601 Feb, Cellulitis of right lower extremity L03.115 ; Thrush B37.0 ; Gout of left knee due to renal impairment, unspecified chronicity M10.362 and Chronic renal failure, stage 3 (moderate) N18.3 [place] [address] [place] [address] 54629- 2681 Feb, [place] [address] [address]- 6311 Feb, Right foot infection L08.9 ; Type 2 diabetes mellitus with hyperglycemia E11.65 ; Arthralgia of left knee M25.562 ; Chronic kidney disease , stage 3 N18.3 and Diabetes E11.9 [place] [address] [place] [id number] [place] [address] 71143- 0346 Feb, [place] [address] [place] [id number] [place] [address] 87825- 8310 Feb, Diabetes E11.9 ; Arthralgia of left knee M25.562 and Thrush B37.0 [place] [address] [place] [id number] [place] [address] 55849- 7496 Jan, [place] [address] [place] [id number] [place] [address] 22324- 3929 Jan, Type 2 diabetes mellitus with hyperglycemia E11.65 ; Chronic renal failure, stage 3 (moderate) N18.3 and Leukocytosis, unspecified type D72.829 [place] [address] [place] [id number] [place] [address] 12406- 5250 Jan, Type 2 diabetes mellitus with hyperglycemia E11.65 [place] [address] [place] [id number] [place] [address] 29837- 6648 Dec, Gout of left knee due to renal impairment, unspecified chronicity M10.362 [place] [address] [place] [id number] [place] [address] 57087- 2014 Dec, Gout of left knee due to renal impairment, unspecified chronicity M10.362 and Diabetes E11.9 [place] [address] [place] [id number] [place] [address] 03356- 0171 Dec, [place] [address] [place] [id number] [place] [address] 95689- 9784 Dec, [facility] [address] [place] [id number] [place] [address] 79510 -3283 Dec, [place] [address] [place] [address] 87733- 5828 Dec, Chronic kidney disease, stage 3 N18.3 ; Type 2 diabetes mellitus with diabetic nephropathy E11.21 ; Type 2 diabetes mellitus with hyperglycemia E11.65 and 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 [facility] [address] [place] [id number] [place] [address] 20136 -4809 Dec, Leukocytosis, unspecified type D72.829 ; Chronic renal failure, stage 3 (moderate) N18.3 and Nausea R11.0 [facility] [address] [place] [id number] [place] [address] 54546- 8348 Nov, [facility] [address] 09940- 9030 Jul, [place] [address] [place] [id number] [place] [address] 13156- 9038 Jul, Diabetes E11.9 ; Low back pain M54.5 and Other chronic pain G89.29 [place] [address] [place] [id number] [place] [address] 18878- 9878 June, [place] [address] 68308- 6381 June, [place] [address] [place] [id number] [place] [address] 36301- 8151 Jan, Viral illness B34.9 [place] [address] [place] [id number] [place] [address] 22869- 2046 08 Jan, 2015 Type 2 diabetes mellitus with hyperglycemia E11.65 ; Pain in right foot M79.671 and Localized edema R60.0 [facility] [address] [place] [id number] [place] [address] 36770- 3945 07 Jan, 2015 [place] [address] [place] [id number] [place] [address] 10623- 3434 Dec, Right foot pain M79.671 ; Insomnia, unspecified type G47.00 and Diabetes E11.9 [facility] [address] [place] [id number] [place] [address] 33588- 7187 16 Dec, 2014 Pain in right foot M79.671 [place] [address] [place] [address]- 0503 Nov, [facility] [address] [id number] [place] [address]- 0460 Sep, [facility] [address] [facility] [id number] [place] [address]- 1990 Sep, Diabetes mellitus, type II 250.00 [facility] [address] [facility] [id number] [place] [address]- 6376 May, [facility] [address] [facility] [id number] [place] [address]- 1611 May, [facility] [address] [facility] [id number] [place] [address]- 6002 Apr, [facility] [address] [facility] [id number] [place] [address]- 3442 Apr, [facility] [address] [place] [id number] [place] [address]- 4112 16 Apr, 2014 [facility] [address] [facility] [id number] [place] [address]- 4136 16 Apr, 2014 [facility] [address] [place] [id number] [place] [address]- 0417 Apr, [facility] [address] [facility] [id number] [place] [address]- 1142 Apr, [facility] [address] [facility] [id number] [place] [address]- 8261 Apr, [facility] [address] [id number] [place] [address]- 1597 Apr, [facility] [place] [facility] [address] [facility] [id number] [place] [address]- 7961 Jan, [facility] [place] [facility] [address] [facility] [id number] [place] [address]- 0846 Jan, [facility] [address] [facility] [id number] [place] [address]- 6371 Jan, [facility] [place] [facility] [address] [id number] [place] [address]- 5601 15 Jan, 2014 [facility] [place] [facility] [address] [id number] [place] [address]- 5699 Dec, [facility] [place] [facility] [address] [id number] [place] [address]- 5618 Dec, [facility] [place] [facility] [address] [id number] [place] [address]- 8493 Nov, [facility] [place] [facility] [address] [id number] [place] [address]- 1476 Nov, [facility] [place] [facility] [address] [id number] [place] [address]- 7851 Oct, [facility] [place] [facility] [address] [id number] [place] [address]- 8564 Oct, [facility] [place] [facility] [address] [id number] [place] [address]- 0793 Oct, [facility] [place] [facility] [address] [id number] [place] [address]- 7201 Oct, [facility] [place] [facility] [address] [id number] [place] [address]- 8781 Sep, [facility] [place] [facility] [address] [id number] [place] [address]- 6673 Sep, [facility] [place] [facility] [address] [id number] [place] [address]- 6792 Sep, [facility] [place] [facility] [address] [id number] [place] [address]- 9091 Sep, [facility] [place] [facility] [address] [id number] [place] [address]- 0554 Sep, [facility] [place] [facility] [address] [id number] [place] [address]- 0487 Sep, [facility] [place] [facility] [address] [id number] [place] [address]- 6981 Sep, [facility] [place] [facility] [address] [id number] [place] [address]- 9557 Sep, [facility] [place] [facility] [address] [id number] [place] [address]- 2155 Sep, [facility] [place] [facility] [address] [id number] [place] [address]- 9668 Sep, [facility] [place] [facility] [address] [id number] [place] [address]- 2361 Sep, [facility] [place] [facility] [address] [id number] [place] [address]- 5893 Sep, [facility] [place] [facility] [address] [id number] [place] [address]- 9129 Aug, [facility] [place] [facility] [address] [id number] [place] [address]- 2251 Aug, [facility] [place] [facility] [address] [id number] [place] [address]- 1563 Aug, [facility] [place] [facility] [address] [id number] [place] [address]- 5599 Aug, [facility] [place] [facility] [address] [id number] [place] [address]- 7125 June, [facility] [place] [facility] [address] [id number] [place] [address]- 8364 May, [facility] [place] [facility] [address] [id number] [place] [address]- 5365 24 May, 2013 [facility] [place] [facility] [address] [id number] [place] [address]- 8853 May, [facility] [place] [facility] [address] [id number] [place] [address]- 4274 18 May, 2013 [facility] [place] [facility] [address] [id number] [place] [address]- 9603 May, [facility] [place] [facility] [address] [id number] [place] [address]- 0536 17 May, 2013 [facility] [place] [facility] [address] [id number] [place] [address]- 5211 16 May, 2013 [facility] [place] [facility] [address] [id number] [place] [address]- 7474 16 May, 2013 [facility] [place] [facility] [address] [id number] [place] [address]- 5199 14 May, 2013 [facility] [place] [facility] [address] [id number] [place] [address]- 7311 14 May, 2013 [facility] [place] [facility] [address] [id number] [place] [address]- 1647 May, [facility] [place] [facility] [address] [id number] [place] [address]- 6012 May, [facility] [place] [facility] [address] [id number] [place] [address]- 4340 Apr, [facility] [place] [facility] [address] [id number] [place] [address]- 4034 Apr, [facility] [place] [facility] [address] [id number] [place] [address]- 5189 Mar, [facility] [place] [facility] [address] [id number] [place] [address]- 7766 Mar, [facility] [place] [facility] [address] [id number] [place] [address]- 5099 Dec, [facility] [place] [facility] [address] [id number] [place] [address]- 5758 Dec, [facility] [place] [facility] [address] [id number] [place] [address]- 0778 Dec, [facility] [place] [facility] [address] [id number] [place] [address]- 7838 Dec, [facility] [place] [facility] [address] [id number] [place] [address]- 2546 Nov, [facility] [address] [id number] [place] [address]- 2356 Nov, [facility] [place] [facility] [address] [id number] [place] [address]- 0193 30 Oct, 2012 [facility] [address] [id number] [place] [address] 2540 Oct, [facility] [place] [facility] [address] [id number] [place] [address]- 2138 Aug, [facility] [address] [id number] [place] [address]- 0417 Aug, [facility] [address] [id number] [place] [address]- 7797 Aug, [facility] [address] [facility] [id number] [place] [address]- 0269 Jul, [facility] [place] [facility] [address] [id number] [place] [address]- 2725 June, [facility] [address] [id number] [place] [address]- 8107 June, [facility] [address] [facility] [id number] [place] [address]- 2079 Apr, [facility] [address] [id number] [place] [address]- 4488 Mar, [facility] [place] [facility] [address] [id number] [place] [address]- 3112 Mar, [facility] [place] [facility] [address] [id number] [place] [address]- 6899 Mar, [facility] [place] [facility] [address] [id number] [place] 3576 Mar, [facility] [place] [facility] [address] [facility] [id number] [place] [address] Mar, [facility] [place] [facility] [address] [id number] [place] [address] Feb, [facility] [place] [facility] [address] [id number] [place] [address] Feb, [facility] [place] [facility] [address] [id number] [place] [address] Feb, [facility] [place] [facility] [address] [id number] [place] [address] Feb, [facility] [place] [facility] [address] [id number] [place] [address] Jan, [facility] [place] [facility] [address] [id number] [place] [address] Jan, [facility] [place] [facility] [address] [id number] [place] [address] Dec, [facility] [place] [facility] [address] [id number] [place] [address] Dec, [facility] [place] [facility] [address] [id number] [place] [address] Dec, [facility] [place] [facility] [address] [id number] [place] [address] Dec, [facility] [place] [facility] [address] [id number] [place] [address] Oct, [facility] [place] [facility] [address] [id number] [place] [address] Aug, [facility] [place] [facility] [address] [id number] [place] [address] Jul, [facility] [place] [facility] [address] [id number] [place] [address] June, [facility] [place] [facility] [address] [id number] [place] [address] June, [facility] [place] [facility] [address] [id number] [place] [address] June, [facility] [address] [id number] [place] [address] June, [facility] [place] [facility] [address] [id number] [place] [address] June, [facility] [place] [facility] [address] [id number] [place] [address] May, [facility] [place] [facility] [address] [id number] [place] [address] May, [facility] [place] [facility] [address] [id number] [place] [address] Apr, [facility] [place] [facility] [address] [id number] [place] [address] Apr, [facility] [place] [facility] [address] [id number] [place] [address] Mar, [facility] [place] [facility] [address] [id number] [place] [address] Feb, [facility] [place] [facility] [address] [id number] [place] [address] Nov, [facility] [place] [facility] [address] [id number] [place] [address] Nov, [facility] [place] [facility] [address] [id number] [place] [address] Nov, [facility] [place] [facility] [address] [id number] [place] [address] 17 Apr, 2010 [facility] [place] [facility] [address] [id number] [place] [address] Jan, [facility] [place] [facility] [address] [address] [id number] [place] [address] Dec, [facility] [place] [facility] [address] [id number] [place] [address] Dec, [facility] [place] [facility] [address] [id number] [place] [address] 29 Nov, 2009 [facility] [address] [id number] [place] [address] 12 Jun, 2009 [facility] [address] [id number] [place] [address] 29 Jan, 2009 [facility] [address] [id number] [place] [address] 28 Jan, 2009 [facility] [address] [id number] [place] [address] 23 Jan, 2009 [facility] [address] [id number] [place] [address] 22 Jan, 2009 [facility] [address] [id number] [place] [address] 16 Jan, 2009 [facility] [address] [facility] [id number] [place] [address] 15 Jan, 2009 [facility] [address] [id number] [place] [address] 15 Jan, 2009 [facility] [address] [facility] [id number] [place] [address] 11 Jan, 2009 [facility] [address] [facility] [id number] [place] [address] 11 Jan, 2009 [facility] [address] [id number] [place] [address] 10 Jan, 2009 [facility] [address] [id number] [place] [address] 04 Jan, 2009 [facility] [address] [id number] [place] [address] 02 Jan, 2009 [facility] [address] [id number] [place] [address] 25 Dec, 2008 [facility] [address] [id number] [place] [address] Dec, [facility] [address] [facility] [id number] [place] [address] Dec, [facility] [address] [facility] [id number] [place] [address] Dec, [facility] [address] [facility] [id number] [place] [address] Nov, [facility] [address] [facility] [id number] [place] [address] Oct, IMMUNIZATIONS No Known Immunizations SOCIAL HISTORY Never Assessed REASON FOR VISIT Lab (walk-in) PLAN OF CARE VITAL SIGNS MEDICATIONS Unknown Medications RESULTS No Results PROCEDURES Procedure Date Ordered Result Body Site ASSAY OF PROTEIN, URINE Nov 04, 2017 ASSAY OF URINE CREATININE Nov 04, 2017 URINALYSIS, AUTO W/SCOPE Nov 04, 2017 COMPLETE CBC W/AUTO DIFF WBC Nov 04, 2017 VENIPUNCT, ROUTINE* Nov 04, 2017 INSTRUCTIONS MEDICATIONS ADMINISTERED No Known Medications MEDICAL (GENERAL) HISTORY Type Description Date Medical [...] left knee pseudogout status post joint fluid analysis-[facility] 09/20/16
--- OUTSIDE RECORDS SUMMARY | 2017-12-06 13:44 | XMS REPORT ---
Author Author CHAPARRO MUJICA Organization [facility] Address [address] [place] [address] Care Team Providers Care Automotive Vehicle Inspector Name Role Phone CHAPARRO MUJICA Unavailable PROBLEMS Type Condition ICD9-CM Code JSS88-IQ Code Onset Dates Condition Status SNOMED Code Problem 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 333357962 Problem Mood disorder F39 Active 51678545 Problem Chronic kidney disease, stage 3 N18.3 Active 826883281 Problem Chronic kidney disease, stage V (very severe) N18.5 Active 378975311 Problem Essential hypertension I10 Active 59134720 Problem Pseudogout M11.20 Active 376422850 Problem Mixed hyperlipidemia E78.2 Active 597649503 Problem Primary osteoarthritis of left knee M17.12 Active 149308679926414 Problem Gout of left knee due to renal impairment, unspecified chronicity M10.362 Active 299021423 Problem Hypertriglyceridemia E78.1 Active 597259924 Problem Gastroesophageal reflux disease, esophagitis presence not specified K21.9 Active 016623446 Problem Coronary atherosclerosis of unspecified type of vessel, soboba or graft I25.10 Active 054846119 Problem Gout, unspecified M10.9 Active 90883417 Problem FPC 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 Active 312209613 Problem Insomnia, unspecified G47.00 Active 811834606 Problem Type 2 diabetes mellitus with hyperglycemia E11.65 Active [id number] ALLERGIES No Information ENCOUNTERS Encounter Location Date Diagnosis [facility] [address] [facility] [id number] [address] Oct, Essential hypertension I10 ; Coronary atherosclerosis of unspecified type of vessel, soboba or graft I25.10 ; Type 2 diabetes mellitus with hyperglycemia E11.65 and Gout, unspecified M10.9 [facility] [address] [facility] [id number] [address] Oct, Chronic kidney disease, stage V (very severe) N18.5 [place] [id number] [place] [address] 69681- 0683 Oct, Mixed hyperlipidemia E78.2 [place] [address] [place] [id number] [place] [address] 32191- 0010 Sep, Type 2 diabetes mellitus with hyperglycemia E11.65 [place] [address] [place] [id number] [place] [address] 81042- 6090 Sep, Mixed hyperlipidemia E78.2 [place] [address] [place] [id number] [place] [address] 28978- 4638 Sep, Chronic kidney disease, stage V (very severe) N18.5 [place] [address] [place] [id number] [place] [address] 47744- 0503 Sep, Type 2 diabetes mellitus with hyperglycemia E11.65 and Essential hypertension I10 [place] [address] [place] [id number] [place] [address] 86663- 7901 Sep, Type 2 diabetes mellitus with hyperglycemia E11.65 [place] [id number] [place] [address] 83318- 4452 Aug, Gout, unspecified M10.9 ; Gastroesophageal reflux disease, esophagitis presence not specified K21.9 ; Mood disorder F39 and Coronary atherosclerosis of unspecified type of vessel, soboba or graft I25.10 [place] [id number] [place] [address] 56864- 1144 Aug, [place] [id number] [place] [address] 32495- 9192 June, Type 2 diabetes mellitus with hyperglycemia E11.65 [place] [address] [place] [id number] [place] [address] 68523- 2194 May, Mood disorder F39 ; Gastroesophageal reflux disease, esophagitis presence not specified K21.9 ; Gout, unspecified M10.9 ; Coronary atherosclerosis of unspecified type of vessel, soboba or graft I25.10 and Type 2 diabetes mellitus with hyperglycemia E11.65 [place] [id number] [place] [address] 67824- 0177 May, Type 2 diabetes mellitus with hyperglycemia E11.65 [place] [address] [place] [id number] [place] [address] 01805- 6626 Apr, Diabetes E11.9 and Mood disorder F39 [place] [address] [place] [id number] [place] [address] 55907- 0050 15 Mar, 2017 Primary osteoarthritis of left knee M17.12 and Tear of lateral meniscus of left knee, unspecified tear type, unspecified whether old or current tear, initial encounter S83.282A [place] [address] [place] [id number] [place] [address] 88382- 7923 Feb, Mood disorder F39 [place] [address] [place] [id number] [place] [address] 15241- 3528 Feb, Pseudogout M11.20 [place] [address] [place] [id number] [place] [address] 84165- 4006 Jan, 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 terminal superintendent (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 [facility] [address] [place] [id number] [place] [address] 89863 -1228 Jan, [place] [address] [place] [id number] [place] [address] 84285- 3502 Jan, Pseudogout M11.20 ; Type 2 diabetes mellitus with hyperglycemia E11.65 and Other terminal superintendent (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 [place] [address] [place] [id number] [place] [address] 32504- 8149 Jan, Gout of left knee due to renal impairment, unspecified chronicity M10.362 ; Type 2 diabetes mellitus with diabetic nephropathy E11.21 ; Synovial cyst of popliteal space [Mejia], left knee M71.22 and Low back pain M54.5 [facility] [address] [place] [id number] [place] [address] 67680- 0213 Dec, Pseudogout M11.20 [place] [address] [place] [id number] [place] [address] 68437- 3402 14 Dec, 2016 [place] [address] 96779- 7270 Dec, Type 2 diabetes mellitus with diabetic nephropathy E11.21 and Right anterior knee pain M25.561 [place] [address] [place] [id number] [place] [address] 54162- 9191 Nov, Pseudogout M11.20 [place] [address] [place] [id number] [place] [address] 30530- 6948 Nov, Pseudogout M11.20 ; Chronic kidney disease, stage 3 N18.3 ; Mixed hyperlipidemia E78.2 ; Gout, unspecified M10.9 ; Coronary atherosclerosis of unspecified type of vessel, soboba or graft I25.10 ; Mood disorder F39 and Gastroesophageal reflux disease, esophagitis presence not specified K21.9 [place] [address] [place] [id number] [place] [address] 49923- 3845 Nov, [place] [address] [place] [id number] [place] [address] 50731- 5148 Oct, Pseudogout M11.20 [place] [address] [place] [id number] [place] [address] 92467- 0268 Sep, Pseudogout M11.20 [place] [address] [place] [id number] [place] [address] 00526- 2910 Sep, Pseudogout M11.20 [place] [address] [place] [id number] [place] [address] 55149- 5022 Sep, [place] [address] [place] [id number] [place] [address] [id number] Aug, [place] [address] [place] [id number] [place] [address] 59057- 0341 Aug, Diabetes E11.9 ; Chronic kidney disease, stage 3 N18.3 ; Hyperuricemia E79.0 ; Mixed hyperlipidemia E78.2 ; Gastroesophageal reflux disease, esophagitis presence not specified K21.9 ; Gout, unspecified M10.9 ; Coronary atherosclerosis of unspecified type of vessel, soboba or graft I25.10 and Mood disorder F39 [place] [address] [place] [id number] [place] [address] 58604- 6897 June, [place] [address] [place] [id number] [place] [address] 19841- 2038 June, [place] [address] 33334- 8334 June, [place] [address] [place] [id number] [place] [address] 36656- 7073 May, Chronic renal failure, stage 3 (moderate) N18.3 [place] [address] [place] [id number] [place] [address] 98918- 6716 May, Diabetes E11.9 [place] [address] 24688- 3530 May, [place] [address] [place] [id number] [place] [address] 09347- 8273 Apr, [place] [address] [place] [id number] [place] [address] 23473- 8991 Apr, [place] [address] [place] [id number] [place] [address] 27313- 4621 Apr, Cellulitis of right lower extremity L03.115 and Diabetes E11.9 [place] [address] [place] [id number] [place] [address] 74418- 4707 Apr, Type 2 diabetes mellitus with hyperglycemia E11.65 [place] [address] [place] [id number] [place] [address] 34539- 9407 Mar, Cellulitis of right lower extremity L03.115 and Low back pain M54.5 [place] [address] [place] [id number] [place] [address] 50045- 1591 Mar, [place] [address] [place] [id number] [place] [address] 22242- 3334 Mar, Cellulitis of right lower extremity L03.115 [place] [id number] [place] [address] 74562- 2261 Mar, Cellulitis of right lower extremity L03.115 [place] [id number] [place] [address] 14955- 6387 Feb, Cellulitis of right lower extremity L03.115 [place] [id number] [place] [address] 72358- 2283 Feb, Cellulitis of right lower extremity L03.115 [place] [id number] [place] [address] 12699- 3364 Feb, [place] [id number] [place] [address] 63328- 9352 Feb, Leukocytosis, unspecified type D72.829 ; Chronic renal failure, stage 3 (moderate) N18.3 and Type 2 diabetes mellitus with hyperglycemia E11.65 [place] [address] [place] [address] 87282- 9222 Feb, Leukocytosis, unspecified type D72.829 [place] [address] [address]- 6425 Feb, [place] [id number] [place] [address] 72852- 5983 Feb, Cellulitis of right lower extremity L03.115 ; Thrush B37.0 ; Gout of left knee due to renal impairment, unspecified chronicity M10.362 and Chronic renal failure, stage 3 (moderate) N18.3 [place] [id number] [place] [address] 31882- 3977 Feb, [place] [address] [address]- 7155 Feb, Right foot infection L08.9 ; Type 2 diabetes mellitus with hyperglycemia E11.65 ; Arthralgia of left knee M25.562 ; Chronic kidney disease , stage 3 N18.3 and Diabetes E11.9 [place] [address] [place] [id number] [place] [address] 65303- 3777 Feb, [place] [address] [place] [id number] [place] [address] 51986- 2379 Feb, Diabetes E11.9 ; Arthralgia of left knee M25.562 and Thrush B37.0 [place] [address] [place] [id number] [place] [address] 38892- 2955 Jan, [place] [address] [place] [id number] [place] [address] 54101- 5974 Jan, Type 2 diabetes mellitus with hyperglycemia E11.65 ; Chronic renal failure, stage 3 (moderate) N18.3 and Leukocytosis, unspecified type D72.829 [place] [address] [place] [id number] [place] [address] 36862- 3629 Jan, Type 2 diabetes mellitus with hyperglycemia E11.65 [place] [address] [place] [id number] [place] [address] 71215- 7958 Dec, Gout of left knee due to renal impairment, unspecified chronicity M10.362 [place] [address] [place] [id number] [place] [address] 35787- 6285 Dec, Gout of left knee due to renal impairment, unspecified chronicity M10.362 and Diabetes E11.9 [place] [address] [place] [id number] [place] [address] 98664- 0794 Dec, [place] [address] [place] [id number] [place] [address] 09927- 4276 Dec, [facility] [address] [place] [id number] [place] [address] 19255 -7179 Dec, [place] [id number] [place] [address] 60482- 9907 Dec, Chronic kidney disease, stage 3 N18.3 ; Type 2 diabetes mellitus with diabetic nephropathy E11.21 ; Type 2 diabetes mellitus with hyperglycemia E11.65 and terminal makeup operator 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 [facility] [address] [place] [id number] [place] [address] 41169 -6012 Dec, Leukocytosis, unspecified type D72.829 ; Chronic renal failure, stage 3 (moderate) N18.3 and Nausea R11.0 [facility] [address] [place] [id number] [place] [address] 57138- 6601 Nov, [facility] [address] 17399- 6576 Jul, [place] [address] [place] [id number] [place] [address] 30465- 1640 Jul, Diabetes E11.9 ; Low back pain M54.5 and Other chronic pain G89.29 [place] [address] [place] [id number] [place] [address] 40430- 2659 June, [place] [address] 26917- 7267 June, [place] [address] [place] [id number] [place] [address] 78945- 2167 Jan, Viral illness B34.9 [place] [address] [place] [id number] [place] [address] 10936- 1629 08 Jan, 2015 Type 2 diabetes mellitus with hyperglycemia E11.65 ; Pain in right foot M79.671 and Localized edema R60.0 [facility] [address] [place] [id number] [place] [address] 69175- 3618 07 Jan, 2015 [place] [address] [place] [id number] [place] [address] 74952- 8353 Dec, Right foot pain M79.671 ; Insomnia, unspecified type G47.00 and Diabetes E11.9 [facility] [address] [place] [id number] [place] [address] 96560- 7838 16 Dec, 2014 Pain in right foot M79.671 [place] [address] [place] [address]- 7816 Nov, [facility] [address] [id number] [place] [address]- 6520 Sep, [facility] [address] [facility] [id number] [place] [address]- 9483 Sep, Diabetes mellitus, type II 250.00 [facility] [address] [facility] [id number] [place] [address]- 0271 May, [facility] [address] [facility] [id number] [place] [address]- 6032 May, [facility] [address] [facility] [id number] [place] [address]- 9116 Apr, [facility] [address] [facility] [id number] [place] [address]- 7051 Apr, [facility] [address] [place] [id number] [address]- 9927 16 Apr, 2014 [facility] [address] [facility] [id number] [place] [address]- 9616 16 Apr, 2014 [facility] [address] [place] [id number] [place] [address]- 2558 Apr, [facility] [address] [facility] [id number] [place] [address]- 2980 Apr, [facility] [address] [facility] [id number] [place] [address]- 8226 Apr, [facility] [address] [id number] [place] [address]- 3275 Apr, [facility] [place] [facility] [address] [facility] [id number] [place] [address]- 3335 Jan, [facility] [place] [facility] [address] [facility] [id number] [place] [address]- 7726 Jan, [facility] [address] [facility] [id number] [place] [address]- 2654 Jan, [facility] [place] [facility] [address] [id number] [place] [address]- 1249 15 Jan, 2014 [facility] [place] [facility] [address] [id number] [place] [address]- 6286 Dec, [facility] [place] [facility] [address] [id number] [place] [address]- 7717 Dec, [facility] [place] [facility] [address] [id number] [place] [address]- 3314 Nov, [facility] [place] [facility] [address] [id number] [place] [address]- 6432 Nov, [facility] [place] [facility] [address] [id number] [place] [address]- 5183 Oct, [facility] [place] [facility] [address] [id number] [place] [address]- 9763 Oct, [facility] [place] [facility] [address] [id number] [place] [address]- 5807 Oct, [facility] [place] [facility] [address] [id number] [place] [address]- 9209 Oct, [facility] [place] [facility] [address] [id number] [place] [address]- 5100 Sep, [facility] [place] [facility] [address] [id number] [place] [address]- 0832 Sep, [facility] [place] [facility] [address] [id number] [address]- 5351 Sep, [facility] [place] [facility] [address] [id number] [place] [address]- 5801 Sep, [facility] [place] [facility] [address] [id number] [place] [address]- 5792 Sep, [facility] [place] [facility] [address] [id number] [place] [address]- 9869 Sep, [facility] [place] [facility] [address] [id number] [place] [address]- 0543 Sep, [facility] [place] [facility] [address] [id number] [place] [address]- 1744 Sep, [facility] [place] [facility] [address] [id number] [place] [address]- 5665 Sep, [facility] [place] [facility] [address] [id number] [place] [address]- 3233 Sep, [facility] [place] [facility] [address] [id number] [place] [address]- 3580 Sep, [facility] [place] [facility] [address] [id number] [place] [address]- 1646 Sep, [facility] [place] [facility] [address] [id number] [place] [address]- 5502 Aug, [facility] [place] [facility] [address] [id number] [place] [address]- 8650 Aug, [facility] [place] [facility] [address] [id number] [place] [address]- 7302 Aug, [facility] [place] [facility] [address] [id number] [place] [address]- 5673 Aug, [facility] [place] [facility] [address] [id number] [place] [address]- 2553 June, [facility] [place] [facility] [address] [id number] [place] [address]- 8284 May, [facility] [place] [facility] [address] [id number] [place] [address]- 4707 24 May, 2013 [facility] [place] [facility] [address] [id number] [place] [address]- 7403 May, [facility] [place] [facility] [address] [id number] [place] [address]- 5859 18 May, 2013 [facility] [place] [facility] [address] [id number] [place] [address]- 7364 May, [facility] [place] [facility] [address] [id number] [place] [address]- 9888 17 May, 2013 [facility] [place] [facility] [address] [id number] [place] [address]- 6873 16 May, 2013 [facility] [place] [facility] [address] [id number] [place] [address]- 9466 16 May, 2013 [facility] [place] [facility] [address] [id number] [place] [address]- 7462 14 May, 2013 [facility] [place] [facility] [address] [id number] [place] [address]- 7486 14 May, 2013 [facility] [place] [facility] [address] [id number] [place] [address]- 8429 May, [facility] [place] [facility] [address] [id number] [place] [address]- 5038 May, [facility] [place] [facility] [address] [id number] [place] [address]- 5928 Apr, [facility] [place] [facility] [address] [id number] [place] [address]- 9417 Apr, [facility] [place] [facility] [address] [id number] [place] [address]- 5365 Mar, [facility] [place] [facility] [address] [id number] [place] [address]- 9244 Mar, [facility] [place] [facility] [address] [id number] [place] [address]- 2035 Dec, [facility] [place] [facility] [address] [id number] [place] [address]- 8203 Dec, [facility] [place] [facility] [address] [id number] [place] [address]- 4112 Dec, [facility] [place] [facility] [address] [id number] [place] [address]- 2828 Dec, [facility] [place] [facility] [address] [id number] [place] [address]- 2546 Nov, [facility] [address] [id number] [place] [address]- 6027 Nov, [facility] [place] [facility] [address] [id number] [place] [address]- 5192 30 Oct, 2012 [facility] [address] [id number] [place] [address] 2549 Oct, [facility] [place] [facility] [address] [id number] [place] [address]- 1033 Aug, [facility] [address] [id number] [place] [address]- 3109 Aug, [facility] [address] [id number] [place] [address]- 5758 Aug, [facility] [address] [facility] [id number] [place] [address]- 4510 Jul, [facility] [place] [facility] [address] [id number] [place] [address]- 5889 June, [facility] [address] [id number] [place] [address]- 9816 June, [facility] [address] [facility] [id number] [place] [address]- 6355 Apr, [facility] [address] [id number], [place] [address]- 0753 Mar, [facility] [place] [facility] [address] [id number] [place] [address]- 8093 Mar, [facility] [place] [facility] [address] [id number] [place] [address] Mar, [facility] [place] [facility] [address] [id number] [address] Mar, [facility] [place] [facility] [address] [facility] [id number], [place] [address] Mar, [facility] [place] [facility] [address] [id number] [place] [address] Feb, [facility] [place] [facility] [address] [id number] [place] [address] Feb, [facility] [place] [facility] [address] [id number] [place] [address] Feb, [facility] [place] [facility] [address] [id number] [place] [address] Feb, [facility] [place] [facility] [address] [id number] [place] [address] Jan, [facility] [place] [facility] [address] [id number] [place] [address] Jan, [facility] [place] [facility] [address] [id number] [place] [address] Dec, [facility] [place] [facility] [address] [id number] [place] [address] Dec, [facility] [place] [facility] [address] [id number] [place] [address] Dec, [facility] [place] [facility] [address] [id number] [place] [address] Dec, [facility] [place] [facility] [address] [id number] [place] [address] Oct, [facility] [place] [facility] [address] [id number] [place] [address] Aug, [facility] [place] [facility] [address] [id number] [place] [address] Jul, [facility] [place] [facility] [address] [id number] [place] [address] June, [facility] [place] [facility] [address] [id number] [place] [address] June, [facility] [place] [facility] [address] [id number] [place] [address] June, [facility] [address] [id number] [place] [address] June, [facility] [place] [facility] [address] [id number] [place] [address] June, [facility] [place] [facility] [address] [id number] [place] [address] May, [facility] [place] [facility] [address] [id number] [place] [address]- [address] May, [facility] [place] [facility] [address] [id number] [place] [address] Apr, [facility] [place] [facility] [address] [id number] [place] [address] Apr, [facility] [place] [facility] [address] [id number] [place] [address] Mar, [facility] [place] [facility] [address] [id number] [place] [address] Feb, [facility] [place] [facility] [address] [id number] [place] [address] Nov, [facility] [place] [facility] [address] [id number] [place] [address] Nov, [facility] [place] [facility] [address] [id number], [place] [address] Nov, [facility] [place] [facility] [address] [id number], [place] [address] 17 Apr, 2010 [facility] [place] [facility] [address] [id number] [place] [address] Jan, [facility] [place] [facility] [address] [id number] [place] [address] Dec, [facility] [place] [facility] [address] [id number] [place] [address] Dec, [facility] [place] [facility] [address] [id number] [place] [address] 29 Nov, 2009 [facility] [address] [id number] [place] [address] 12 Jun, 2009 [facility] [address] [id number] [place] [address] 29 Jan, 2009 [facility] [address] [id number] [place] [address] 28 Jan, 2009 [facility] [address] [id number] [place] [address] 23 Jan, 2009 [facility] [address] [id number] [place] [address] 22 Jan, 2009 [facility] [address] [id number] [place] [address] 16 Jan, 2009 [facility] [address] [facility] [id number] [place] [address] 15 Jan, 2009 [facility] [address] [id number] [place] [address] 15 Jan, 2009 [facility] [address] [facility] [id number] [place] [address] 11 Jan, 2009 [facility] [address] [facility] [id number] [place] [address] 11 Jan, 2009 [facility] [address] [id number] [place] [address] 10 Jan, 2009 [facility] [address] [id number] [place] [address] 04 Jan, 2009 [facility] [address] [id number] [place] [address] 02 Jan, 2009 [facility] [address] [id number] [place] [address] 25 Dec, 2008 [facility] [address] [id number] [place] [address] Dec, [facility] [address] [facility] [id number] [place] [address] Dec, [facility] [address] [facility] [id number] [address] Dec, [facility] [address] [facility] [id number][place] [address] Nov, [facility] [address] [facility] [id number][place] [address] Oct, IMMUNIZATIONS No Known Immunizations SOCIAL HISTORY Never Assessed REASON FOR VISIT Repository Medication PLAN OF CARE VITAL SIGNS MEDICATIONS Medication Instructions Dosage Frequency Start Date End Date Duration Status Atorvastatin Calcium 40 MG Orally Once a day 1 tablet 24h 90 days Active RESULTS No Results PROCEDURES No Known procedures INSTRUCTIONS MEDICATIONS ADMINISTERED No Known Medications MEDICAL [...] left knee pseudogout status post joint fluid analysis-[facility] 09/20/16
--- OUTSIDE RECORDS SUMMARY | 2017-12-06 13:45 | XMS REPORT ---
Author Author CHAPARRO MUJICA Organization [facility] Address [address] [place] [address] Care Team Providers Care Accounts Receivable Bookkeeper Name Role Phone CHAPARRO MUJICA Unavailable PROBLEMS Type Condition ICD9-CM Code ZPG72-BQ Code Onset Dates Condition Status SNOMED Code Problem 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 393554981 Problem Mood disorder F39 Active 78272795 Problem Chronic kidney disease, stage 3 N18.3 Active 027377985 Problem Chronic kidney disease, stage V (very severe) N18.5 Active 979193451 Problem Essential hypertension I10 Active 43318726 Problem Pseudogout M11.20 Active 642999723 Problem Mixed hyperlipidemia E78.2 Active 885791731 Problem Primary osteoarthritis of left knee M17.12 Active [id number] Problem Gout of left knee due to renal impairment, unspecified chronicity M10.362 Active 419086003 Problem Hypertriglyceridemia E78.1 Active 439239404 Problem Gastroesophageal reflux disease, esophagitis presence not specified K21.9 Active 897711456 Problem Coronary atherosclerosis of unspecified type of vessel, chemehuevi or graft I25.10 Active 252433932 Problem Gout, unspecified M10.9 Active 84345060 Problem snf 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 Active 615624258 Problem Insomnia, unspecified G47.00 Active 072850416 Problem Type 2 diabetes mellitus with hyperglycemia E11.65 Active [id number] ALLERGIES No Information ENCOUNTERS Encounter Location Date Diagnosis [facility] [address] [facility] [id number] [address] Oct, Essential hypertension I10 ; Coronary atherosclerosis of unspecified type of vessel, chemehuevi or graft I25.10 ; Type 2 diabetes mellitus with hyperglycemia E11.65 and Gout, unspecified M10.9 [facility] [address] [facility] [id number], [place] [address] Oct, Chronic kidney disease, stage V (very severe) N18.5 [place] [id number] [place] [address] 70524- 2776 Oct, Mixed hyperlipidemia E78.2 [place] [address] [place] [id number] [place] [address] 42131- 2451 Sep, Type 2 diabetes mellitus with hyperglycemia E11.65 [place] [address] [place] [id number] [place] [address] 07220- 1379 Sep, Mixed hyperlipidemia E78.2 [place] [address] [place] [id number] [place] [address] 75621- 2574 Sep, Chronic kidney disease, stage V (very severe) N18.5 [place] [address] [place] [id number] [place] [address] 98277- 9556 Sep, Type 2 diabetes mellitus with hyperglycemia E11.65 and Essential hypertension I10 [place] [address] [place] [id number] [place] [address] 89947- 1418 Sep, Type 2 diabetes mellitus with hyperglycemia E11.65 [place] [id number] [place] [address] 56882- 6545 Aug, Gout, unspecified M10.9 ; Gastroesophageal reflux disease, esophagitis presence not specified K21.9 ; Mood disorder F39 and Coronary atherosclerosis of unspecified type of vessel, chemehuevi or graft I25.10 [place] [id number] [place] [address] 86699- 2148 Aug, [place] [id number] [place] [address] 07376- 5001 June, Type 2 diabetes mellitus with hyperglycemia E11.65 [place] [address] [place] [id number] [place] [address] 19780- 1769 May, Mood disorder F39 ; Gastroesophageal reflux disease, esophagitis presence not specified K21.9 ; Gout, unspecified M10.9 ; Coronary atherosclerosis of unspecified type of vessel, chemehuevi or graft I25.10 and Type 2 diabetes mellitus with hyperglycemia E11.65 [place] [id number] [place] [address] 02216- 4721 May, Type 2 diabetes mellitus with hyperglycemia E11.65 [place] [address] [place] [id number] [place] [address] 72483- 3436 Apr, Diabetes E11.9 and Mood disorder F39 [place] [address] [place] [id number] [place] [address] 53631- 4519 15 Mar, 2017 Primary osteoarthritis of left knee M17.12 and Tear of lateral meniscus of left knee, unspecified tear type, unspecified whether old or current tear, initial encounter S83.282A [place] [address] [place] [id number] [place] [address] 01720- 5225 Feb, Mood disorder F39 [place] [address] [place] [id number] [place] [address] 14768- 9792 Feb, Pseudogout M11.20 [place] [address] [place] [id number] [place] [address] 15299- 7822 Jan, 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 [facility] [address] [place] [id number] [place] [address] 29001 -9722 Jan, [place] [address] [place] [id number] [place] [address] 63369- 9416 Jan, Pseudogout M11.20 ; Type 2 diabetes mellitus with hyperglycemia E11.65 and 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 [place] [address] [place] [id number] [place] [address] 04137- 7711 Jan, Gout of left knee due to renal impairment, unspecified chronicity M10.362 ; Type 2 diabetes mellitus with diabetic nephropathy E11.21 ; Synovial cyst of popliteal space [Mejia], left knee M71.22 and Low back pain M54.5 [facility] [address] [id number] [place] [address] 53289- 7765 Dec, Pseudogout M11.20 [place] [address] [place] [id number] [place] [address] 11766- 4938 14 Dec, 2016 [place] [address] 12208- 0414 Dec, Type 2 diabetes mellitus with diabetic nephropathy E11.21 and Right anterior knee pain M25.561 [place] [address] [place] [id number] [place] [address] 84437- 4840 Nov, Pseudogout M11.20 [place] [address] [place] [id number] [place] [address] 05893- 6137 Nov, Pseudogout M11.20 ; Chronic kidney disease, stage 3 N18.3 ; Mixed hyperlipidemia E78.2 ; Gout, unspecified M10.9 ; Coronary atherosclerosis of unspecified type of vessel, chemehuevi or graft I25.10 ; Mood disorder F39 and Gastroesophageal reflux disease, esophagitis presence not specified K21.9 [place] [address] [place] [id number] [place] [address] 98016- 1966 Nov, [place] [address] [place] [id number] [place] [address] 39359- 4948 Oct, Pseudogout M11.20 [place] [address] [place] [id number] [place] [address] 32460- 1343 Sep, Pseudogout M11.20 [place] [address] [place] [id number] [place] [address] 27681- 0314 Sep, Pseudogout M11.20 [place] [address] [place] [id number] [place] [address] 78762- 5780 Sep, [place] [address] [place] [id number] [place] [address] [id number] Aug, [place] [address] [place] [id number] [place] [address] 67294- 4817 Aug, Diabetes E11.9 ; Chronic kidney disease, stage 3 N18.3 ; Hyperuricemia E79.0 ; Mixed hyperlipidemia E78.2 ; Gastroesophageal reflux disease, esophagitis presence not specified K21.9 ; Gout, unspecified M10.9 ; Coronary atherosclerosis of unspecified type of vessel, chemehuevi or graft I25.10 and Mood disorder F39 [place] [address] [place] [id number] [place] [address] 47071- 7339 June, [place] [address] [place] [id number] [place] [address] 71911- 6622 June, [place] [address] 71443- 8552 June, [place] [address] [place] [id number] [place] [address] 82501- 5307 May, Chronic renal failure, stage 3 (moderate) N18.3 [place] [address] [place] [id number] [place] [address] 45302- 0473 May, Diabetes E11.9 [place] [address] 06714- 1551 May, [place] [address] [place] [id number] [place] [address] 81529- 2415 Apr, [place] [address] [place] [id number] [place] [address] 16943- 9919 Apr, [place] [address] [place] [id number] [place] [address] 28091- 6520 Apr, Cellulitis of right lower extremity L03.115 and Diabetes E11.9 [place] [address] [place] [id number] [place] [address] 91819- 9640 Apr, Type 2 diabetes mellitus with hyperglycemia E11.65 [place] [address] [place] [id number] [place] [address] 70915- 9996 Mar, Cellulitis of right lower extremity L03.115 and Low back pain M54.5 [place] [address] [place] [id number] [place] [address] 67330- 6796 Mar, [place] [address] [place] [id number] [place] [address] 64125- 6763 Mar, Cellulitis of right lower extremity L03.115 [place] [address] [place] [address] 67110- 0149 Mar, Cellulitis of right lower extremity L03.115 [place] [id number] [place] [address] 37243- 1828 Feb, Cellulitis of right lower extremity L03.115 [place] [id number] [place] [address] 84403- 9467 Feb, Cellulitis of right lower extremity L03.115 [place] [address] [place] [address] 63724- 9266 Feb, [place] [id number] [place] [address] 03051- 0920 Feb, Leukocytosis, unspecified type D72.829 ; Chronic renal failure, stage 3 (moderate) N18.3 and Type 2 diabetes mellitus with hyperglycemia E11.65 [place] [address] [place] [address] 61506- 3079 Feb, Leukocytosis, unspecified type D72.829 [place] [address] [address]- 1119 Feb, [place] [address] [place] [address] 76804- 5591 Feb, Cellulitis of right lower extremity L03.115 ; Thrush B37.0 ; Gout of left knee due to renal impairment, unspecified chronicity M10.362 and Chronic renal failure, stage 3 (moderate) N18.3 [place] [address] [place] [address] 97746- 9886 Feb, [place] [address] [address]- 2987 Feb, Right foot infection L08.9 ; Type 2 diabetes mellitus with hyperglycemia E11.65 ; Arthralgia of left knee M25.562 ; Chronic kidney disease , stage 3 N18.3 and Diabetes E11.9 [place] [address] [place] [id number] [place] [address] 27901- 6514 Feb, [place] [address] [place] [id number] [place] [address] 90546- 2670 Feb, Diabetes E11.9 ; Arthralgia of left knee M25.562 and Thrush B37.0 [place] [address] [place] [id number] [place] [address] 42022- 0863 Jan, [place] [address] [place] [id number] [place] [address] 41095- 6544 Jan, Type 2 diabetes mellitus with hyperglycemia E11.65 ; Chronic renal failure, stage 3 (moderate) N18.3 and Leukocytosis, unspecified type D72.829 [place] [address] [place] [id number] [place] [address] 72746- 0131 Jan, Type 2 diabetes mellitus with hyperglycemia E11.65 [place] [address] [place] [id number] [place] [address] 92080- 6926 Dec, Gout of left knee due to renal impairment, unspecified chronicity M10.362 [place] [address] [place] [id number] [place] [address] 96258- 6803 Dec, Gout of left knee due to renal impairment, unspecified chronicity M10.362 and Diabetes E11.9 [place] [address] [place] [id number] [place] [address] 59120- 9472 Dec, [place] [address] [place] [id number] [place] [address] 57952- 9041 Dec, [facility] [address] [place] [id number] [place] [address] 62753 -6275 Dec, [place] [id number] [place] [address] 77889- 1867 Dec, Chronic kidney disease, stage 3 N18.3 ; Type 2 diabetes mellitus with diabetic nephropathy E11.21 ; Type 2 diabetes mellitus with hyperglycemia E11.65 and 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 [facility] [address] [place] [id number] [place] [address] 59145 -1454 Dec, Leukocytosis, unspecified type D72.829 ; Chronic renal failure, stage 3 (moderate) N18.3 and Nausea R11.0 [facility] [address] [place] [id number] [place] [address] 00578- 4821 Nov, [facility] [address] 39237- 8441 Jul, [place] [address] [place] [id number] [place] [address] 30247- 1320 Jul, Diabetes E11.9 ; Low back pain M54.5 and Other chronic pain G89.29 [place] [address] [place] [id number] [place] [address] 17708- 3836 June, [place] [address] 61252- 3147 June, [place] [address] [place] [id number] [place] [address] 66660- 5417 Jan, Viral illness B34.9 [place] [address] [place] [id number] [place] [address] 72139- 8035 08 Jan, 2015 Type 2 diabetes mellitus with hyperglycemia E11.65 ; Pain in right foot M79.671 and Localized edema R60.0 [facility] [address] [place] [id number] [place] [address] 78929- 5345 07 Jan, 2015 [place] [address] [place] [id number] [place] [address] 46810- 6045 Dec, Right foot pain M79.671 ; Insomnia, unspecified type G47.00 and Diabetes E11.9 [facility] [address] [place] [id number] [place] [address] 90621- 6461 16 Dec, 2014 Pain in right foot M79.671 [place] [address] [place] [address]- 3762 Nov, [facility] [address] [id number] [place] [address]- 7402 Sep, [facility] [address] [facility] [id number] [place] [address]- 7075 Sep, Diabetes mellitus, type II 250.00 [facility] [address] [facility] [id number] [place] [address]- 3625 May, [facility] [address] [facility] [id number] [place] [address]- 0990 May, [facility] [address] [facility] [id number] [place] [address]- 3904 Apr, [facility] [address] [facility] [id number] [place] [address]- 9450 Apr, [facility] [address] [place] [id number] [place] [address]- 8942 16 Apr, 2014 [facility] [address] [facility] [id number] [place] [address]- 2111 16 Apr, 2014 [facility] [address] [place] [id number] [place] [address]- 1328 Apr, [facility] [address] [facility] [id number] [place] [address]- 3205 Apr, [facility] [address] [facility] [id number] [place] [address]- 2341 Apr, [facility] [address] [id number] [place] [address]- 5779 Apr, [facility] [place] [facility] [address] [facility] [id number] [place] [address]- 1625 Jan, [facility] [place] [facility] [address] [facility] [id number] [place] [address]- 5316 Jan, [facility] [address] [facility] [id number] [place] [address]- 8392 Jan, [facility] [place] [facility] [address] [id number] [place] [address]- 1167 15 Jan, 2014 [facility] [place] [facility] [address] [id number] [place] [address]- 4353 Dec, [facility] [place] [facility] [address] [id number] [place] [address]- 6760 Dec, [facility] [place] [facility] [address] [id number] [place] [address]- 0337 Nov, [facility] [place] [facility] [address] [id number] [place] [address]- 6119 Nov, [facility] [place] [facility] [address] [id number] [place] [address]- 9748 Oct, [facility] [place] [facility] [address] [id number] [place] [address]- 8933 Oct, [facility] [place] [facility] [address] [id number] [place] [address]- 4229 Oct, [facility] [place] [facility] [address] [id number] [place] [address]- 4361 Oct, [facility] [place] [facility] [address] [id number] [place] [address]- 2790 Sep, [facility] [place] [facility] [address] [id number] [place] [address]- 6135 Sep, [facility] [place] [facility] [address] [id number], [place] [address]- 2705 Sep, [facility] [place] [facility] [address] [id number] [place] [address]- 2254 Sep, [facility] [place] [facility] [address] [id number] [place] [address]- 7877 Sep, [facility] [place] [facility] [address] [id number] [place] [address]- 8862 Sep, [facility] [place] [facility] [address] [id number] [place] [address]- 6706 Sep, [facility] [place] [facility] [address] [id number] [place] [address]- 0443 Sep, [facility] [place] [facility] [address] [id number] [place] [address]- 4192 Sep, [facility] [place] [facility] [address] [id number] [place] [address]- 3680 Sep, [facility] [place] [facility] [address] [id number] [place] [address]- 0367 Sep, [facility] [place] [facility] [address] [id number] [place] [address]- 6461 Sep, [facility] [place] [facility] [address] [id number] [place] [address]- 7411 Aug, [facility] [place] [facility] [address] [id number] [place] [address]- 3156 Aug, [facility] [place] [facility] [address] [id number] [place] [address]- 6383 Aug, [facility] [place] [facility] [address] [id number] [place] [address]- 2568 Aug, [facility] [place] [facility] [address] [id number] [place] [address]- 8865 June, [facility] [place] [facility] [address] [id number] [place] [address]- 9392 May, [facility] [place] [facility] [address] [id number] [place] [address]- 2088 24 May, 2013 [facility] [place] [facility] [address] [id number] [place] [address]- 6330 May, [facility] [place] [facility] [address] [id number] [place] [address]- 5340 18 May, 2013 [facility] [place] [facility] [address] [id number] [place] [address]- 4089 May, [facility] [place] [facility] [address] [id number] [place] [address]- 2800 17 May, 2013 [facility] [place] [facility] [address] [id number] [place] [address]- 4396 16 May, 2013 [facility] [place] [facility] [address] [id number] [place] [address]- 9436 16 May, 2013 [facility] [place] [facility] [address] [id number] [place] [address]- 4685 14 May, 2013 [facility] [place] [facility] [address] [id number] [place] [address]- 4668 14 May, 2013 [facility] [place] [facility] [address] [id number] [place] [address]- 1994 May, [facility] [place] [facility] [address] [id number] [place] [address]- 7423 May, [facility] [place] [facility] [address] [id number] [place] [address]- 7533 Apr, [facility] [place] [facility] [address] [id number] [place] [address]- 3277 Apr, [facility] [place] [facility] [address] [id number] [place] [address]- 2343 Mar, [facility] [place] [facility] [address] [id number] [place] [address]- 1353 Mar, [facility] [place] [facility] [address] [id number] [place] [address]- 2831 Dec, [facility] [place] [facility] [address] [id number] [place] [address]- 1654 Dec, [facility] [place] [facility] [address] [id number] [place] [address]- 8495 Dec, [facility] [place] [facility] [address] [id number] [place] [address]- 4423 Dec, [facility] [place] [facility] [address] [id number] [place] [address]- 2546 Nov, [facility] [address] [id number] [place] [address]- 8889 Nov, [facility] [place] [facility] [address] [id number] [place] [address]- 1874 30 Oct, 2012 [facility] [address] [id number] [place] [address] 2541 Oct, [facility] [place] [facility] [address] [id number] [place] [address]- 9628 Aug, [facility] [address] [id number] [place] [address]- 8475 Aug, [facility] [address] [id number] [place] [address]- 6184 Aug, [facility] [address] [facility] [id number] [place] [address]- 5238 Jul, [facility] [place] [facility] [address] [id number] [place] [address]- 6071 June, [facility] [address] [id number] [place] [address]- 0709 June, [facility] [address] [facility] [id number] [place] [address]- 5151 Apr, [facility] [address] [id number], [place] [address]- 1754 Mar, [facility] [place] [facility] [address] [id number] [place] [address]- 9750 Mar, [facility] [place] [facility] [address] [id number] [place] [address]- 4960 Mar, [facility] [place] [facility] [address] [id number] 4582 Mar, [facility] [place] [facility] [address] [facility] [id number], [place] [address]- 5639 Mar, [facility] [place] [facility] [address] [id number] [place] [address]- 9387 Feb, [facility] [place] [facility] [address] [id number] [place] [address] Feb, [facility] [place] [facility] [address] [id number] [place] [address] Feb, [facility] [place] [facility] [address] [id number] [place] [address] Feb, [facility] [place] [facility] [address] [id number] [place] [address] Jan, [facility] [place] [facility] [address] [id number] [place] [address] Jan, [facility] [place] [facility] [address] [id number] [place] [address] Dec, [facility] [place] [facility] [address] [id number] [place] [address] Dec, [facility] [place] [facility] [address] [id number] [place] [address] Dec, [facility] [place] [facility] [address] [id number] [place] [address] Dec, [facility] [place] [facility] [address] [id number] [place] [address] Oct, [facility] [place] [facility] [address] [id number] [place] [address] Aug, [facility] [place] [facility] [address] [id number] [place] [address] Jul, [facility] [place] [facility] [address] [id number] [place] [address] June, [facility] [place] [facility] [address] [id number] [place] [address] June, [facility] [place] [facility] [address] [id number] [place] [address] June, [facility] [address] [id number] [place] [address] June, [facility] [place] [facility] [address] [id number] [place] [address] June, [facility] [place] [facility] [address] [id number] [place] [address] May, [facility] [place] [facility] [address] [id number] [place] [address]- [address] May, [facility] [place] [facility] [address] [id number] [place] [address] Apr, [facility] [place] [facility] [address] [id number] [place] [address] Apr, [facility] [place] [facility] [address] [id number] [place] [address] Mar, [facility] [place] [facility] [address] [id number] [place] [address] Feb, [facility] [place] [facility] [address] [id number] [place] [address] Nov, [facility] [place] [facility] [address] [id number] [place] [address] Nov, [facility] [place] [facility] [address] [id number], [place] [address] Nov, [facility] [place] [facility] [address] [id number], [place] [address] 17 Apr, 2010 [facility] [place] [facility] [address] [id number] [place] [address] Jan, [facility] [place] [facility] [address] [id number] [place] [address] Dec, [facility] [place] [facility] [address] [id number] [place] [address] Dec, [facility] [place] [facility] [address] [id number] [place] [address] 29 Nov, 2009 [facility] [address] [id number] [place] [address] 12 Jun, 2009 [facility] [address] [id number] [place] [address] 29 Jan, 2009 [facility] [address] [id number] [place] [address] 28 Jan, 2009 [facility] [address] [id number] [place] [address] 23 Jan, 2009 [facility] [address] [id number] [place] [address] 22 Jan, 2009 [facility] [address] [id number] [place] [address] 16 Jan, 2009 [facility] [address] [facility] [id number] [place] [address] 15 Jan, 2009 [facility] [address] [id number] [place] [address] 15 Jan, 2009 [facility] [address] [facility] [id number] [place] [address] 11 Jan, 2009 [facility] [address] [facility] [id number] [place] [address] 11 Jan, 2009 [facility] [address] [id number] [place] [address] 10 Jan, 2009 [facility] [address] [id number] [place] [address] 04 Jan, 2009 [facility] [address] [id number] [place] [address] 02 Jan, 2009 [facility] [address] [id number] [place] [address] 25 Dec, 2008 [facility] [address] [id number] [place] [address] Dec, [facility] [address] [facility] [id number], [place] [address] Dec, [facility] [address] [facility] [id number], [place] [address] Dec, [facility] [address] [facility] [id number], [place] [address] Nov, [facility] [address] [facility] [id number], [place] [address] Oct, IMMUNIZATIONS No Known Immunizations SOCIAL HISTORY Never Assessed REASON FOR VISIT PALS Application/scripts PLAN OF CARE VITAL SIGNS MEDICATIONS Medication Instructions Dosage Frequency Start Date End Date Duration Status Lantus 100 UNIT/ML Subcutaneous 2 times a day Inject 35 units 12h Sep, 90 days Active Trulicity 0.75 MG/0.5ML Subcutaneous once weekly Inject 0.5 ml Jan, 90 days Active NovoLog 100 UNIT/ML Subcutaneous 3 times [...]
--- OUTSIDE RECORDS SUMMARY | 2017-12-06 13:45 | XMS REPORT ---
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 Name Role Phone CHAPARRO MUJICA Unavailable PROBLEMS Type Condition ICD9-CM Code ZCW51-MR Code Onset Dates Condition Status SNOMED Code Problem 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 168225313 Problem Mood disorder F39 Active 38519533 Problem Chronic kidney disease, stage 3 N18.3 Active 643246970 Problem Chronic kidney disease, stage V (very severe) N18.5 Active 433118494 Problem Essential hypertension I10 Active 30503492 Problem Pseudogout M11.20 Active 650723026 Problem Mixed hyperlipidemia E78.2 Active 272833536 Problem Primary osteoarthritis of left knee M17.12 Active [id number] Problem Gout of left knee due to renal impairment, unspecified chronicity M10.362 Active 168226558 Problem Hypertriglyceridemia E78.1 Active 648387785 Problem Gastroesophageal reflux disease, esophagitis presence not specified K21.9 Active 030046870 Problem Coronary atherosclerosis of unspecified type of vessel, lumbee or graft I25.10 Active 971232486 Problem Gout, unspecified M10.9 Active 24146304 Problem assisted 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 Active 150675723 Problem Insomnia, unspecified G47.00 Active 173230224 Problem Type 2 diabetes mellitus with hyperglycemia E11.65 Active [id number] ALLERGIES No Information ENCOUNTERS Encounter Location Date Diagnosis [facility] [address] [facility] [id number] [address] Oct, Essential hypertension I10 and Coronary atherosclerosis of unspecified type of vessel, lumbee or graft I25.10 [facility] [address] [facility] [id number] [address] 07 Oct, 2017 Chronic kidney disease, stage V (very severe) N18.5 [place] [id number] [place] [address] 81542- 5903 Oct, Mixed hyperlipidemia E78.2 [place] [address] [place] [id number] [place] [address] 55114- 4643 Sep, Type 2 diabetes mellitus with hyperglycemia E11.65 [place] [address] [id number] [place] [address] 06012- 6559 Sep, Mixed hyperlipidemia E78.2 [place] [address] [address] [id number] [place] [address] 84402- 6953 Sep, Chronic kidney disease, stage V (very severe) N18.5 [place] [address] [id number] [place] [address] 86554- 7966 Sep, Type 2 diabetes mellitus with hyperglycemia E11.65 and Essential hypertension I10 [place] [address] [id number] [place] [address] 85714- 1673 Sep, Type 2 diabetes mellitus with hyperglycemia E11.65 [place] [address] [id number] [place] [address] 10740- 3218 Aug, Gout, unspecified M10.9 ; Gastroesophageal reflux disease, esophagitis presence not specified K21.9 ; Mood disorder F39 and Coronary atherosclerosis of unspecified type of vessel, lumbee or graft I25.10 [place] [address] [address] 16[address] Aug, [place] [address] [place] [id number] [place] [address] 01116- 3100 June, Type 2 diabetes mellitus with hyperglycemia E11.65 [place] [address] [place] [address] 13757- 9091 May, Mood disorder F39 ; Gastroesophageal reflux disease, esophagitis presence not specified K21.9 ; Gout, unspecified M10.9 ; Coronary atherosclerosis of unspecified type of vessel, lumbee or graft I25.10 and Type 2 diabetes mellitus with hyperglycemia E11.65 [place] [address] [place] [id number] [place] [address] 40429- 0706 May, Type 2 diabetes mellitus with hyperglycemia E11.65 [place] [address] [address] [id number] [place] [address] 95281- 8030 Apr, Diabetes E11.9 and Mood disorder F39 [facility] [id number] [place] [address] 58998- 2301 15 Mar, 2017 Primary osteoarthritis of left knee M17.12 and Tear of lateral meniscus of left knee, unspecified tear type, unspecified whether old or current tear, initial encounter S83.282A [place] [address] [address] [id number] [place] [address] 40497- 2633 Feb, Mood disorder F39 [place] [address] [id number] [place] [address] 96254- 4463 09 Feb, 2017 Pseudogout M11.20 [place] [address] 75321- 9053 Jan, 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 [facility] [id number] [place] [address] 36483 -8267 Jan, [place] [address] [address] [id number] [place] [address] 78767- 8172 Jan, Pseudogout M11.20 ; Type 2 diabetes mellitus with hyperglycemia E11.65 and Other [facility] (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 [place] [address] [address] [id number] [place] [address] 76271- 2543 Jan, Gout of left knee due to renal impairment, unspecified chronicity M10.362 ; Type 2 diabetes mellitus with diabetic nephropathy E11.21 ; Synovial cyst of popliteal space [Mejia], left knee M71.22 and Low back pain M54.5 [facility] [id number] [place] [address] 99357- 5701 21 Dec, 2016 Pseudogout M11.20 [facility] [id number] [place] [address] 04955- 4835 Dec, [place] [address] [place] [address] 47371- 4586 Dec, Type 2 diabetes mellitus with diabetic nephropathy E11.21 and Right anterior knee pain M25.561 [place] [address] [address] [id number] [place] [address] 34008- 3184 Nov, Pseudogout M11.20 [place] [id number] [place] [address] 59502- 7926 Nov, Pseudogout M11.20 ; Chronic kidney disease, stage 3 N18.3 ; Mixed hyperlipidemia E78.2 ; Gout, unspecified M10.9 ; Coronary atherosclerosis of unspecified type of vessel, lumbee or graft I25.10 ; Mood disorder F39 and Gastroesophageal reflux disease, esophagitis presence not specified K21.9 [place] [address] [address] [id number] [place] [address] 25598- 2903 Nov, [place] [address] [address] [id number] [place] [address] 18463- 7604 Oct, Pseudogout M11.20 [place] [address] [address] [id number] [place] [address] 23814- 9181 Sep, Pseudogout M11.20 [place] [address] [id number] [place] [address] 74435- 7825 Sep, Pseudogout M11.20 [place] [id number] [place] [address] 77678- 2455 Sep, [place] [address] [place] [id number] [place] [address] [id number] Aug, [place] [address] 31897- 6891 Aug, Diabetes E11.9 ; Chronic kidney disease, stage 3 N18.3 ; Hyperuricemia E79.0 ; Mixed hyperlipidemia E78.2 ; Gastroesophageal reflux disease, esophagitis presence not specified K21.9 ; Gout, unspecified M10.9 ; Coronary atherosclerosis of unspecified type of vessel, lumbee or graft I25.10 and Mood disorder F39 [facility] [id number] [place] [address] 68275- 5814 June, [facility] [id number] [place] [address] 10021- 8644 June, [facility] [id number] [place] [address] 71406- 2030 June, [facility] [id number] [place] [address] 60938- 6453 May, Chronic renal failure, stage 3 (moderate) N18.3 [facility] [id number] [place] [address] 20683- 7050 May, Diabetes E11.9 [facility] [id number] [place] [address] 28954- 7453 May, [facility] [id number] [place] [address] 27038- 3707 Apr, [facility] [id number] [place] [address] 96608- 3658 Apr, [facility] [id number] [place] [address] 24887- 6181 Apr, Cellulitis of right lower extremity L03.115 and Diabetes E11.9 [facility] [id number] [place] [address] 57411- 0583 Apr, Type 2 diabetes mellitus with hyperglycemia E11.65 [facility] [id number] [place] [address] 55163- 5825 Mar, Cellulitis of right lower extremity L03.115 and Low back pain M54.5 [facility] [id number] [place] [address] 71346- 5402 Mar, [facility] [id number] [place] [address] 39901- 5974 Mar, Cellulitis of right lower extremity L03.115 [facility] [address] [address]- 4767 Mar, Cellulitis of right lower extremity L03.115 [facility] [address], [place] [address]- 1329 Feb, Cellulitis of right lower extremity L03.115 [facility] [address] [place] [address] 91652- 4382 Feb, Cellulitis of right lower extremity L03.115 [facility] [address] [address]- 7089 Feb, [place] [address] [place] [address] 66715- 2671 Feb, Leukocytosis, unspecified type D72.829 ; Chronic renal failure, stage 3 (moderate) N18.3 and Type 2 diabetes mellitus with hyperglycemia E11.65 [place] [address] [address]- 1857 Feb, Leukocytosis, unspecified type D72.829 [place] [address] [address]- 6820 Feb, [place] [address], [place] [address]- 0550 Feb, Cellulitis of right lower extremity L03.115 ; Thrush B37.0 ; Gout of left knee due to renal impairment, unspecified chronicity M10.362 and Chronic renal failure, stage 3 (moderate) N18.3 [facility] [address] [place] [id number] [address]- 5384 Feb, [place] [address] [address]- 9165 Feb, Right foot infection L08.9 ; Type 2 diabetes mellitus with hyperglycemia E11.65 ; Arthralgia of left knee M25.562 ; Chronic kidney disease , stage 3 N18.3 and Diabetes E11.9 [place] [address], [place] [address]- 2881 Feb, [place] [address] [address] [id number] [place] [address] 54953- 0796 Feb, Diabetes E11.9 ; Arthralgia of left knee M25.562 and Thrush B37.0 [place] [address] [address] [id number] [place] [address] 10123- 1242 Jan, [place] [address] [address] [id number] [place] [address] 72941- 1607 Jan, Type 2 diabetes mellitus with hyperglycemia E11.65 ; Chronic renal failure, stage 3 (moderate) N18.3 and Leukocytosis, unspecified type D72.829 [place] [address] [place] [address] [id number] [place] [address] 41913- 2252 Jan, Type 2 diabetes mellitus with hyperglycemia E11.65 [place] [address] [address] [id number] [place] [address] 29375- 8144 Dec, Gout of left knee due to renal impairment, unspecified chronicity M10.362 [place] [id number] [place] [address] 02093- 0538 Dec, Gout of left knee due to renal impairment, unspecified chronicity M10.362 and Diabetes E11.9 [place] [address] [place] [address] 02767- 8601 Dec, [place] [address] [place] [address] 74261- 9024 Dec, [facility] [address] [place] [address] 66141 -4615 Dec, [place] [address] [place] [id number] [place] [address] 50632- 1755 Dec, Chronic kidney disease, stage 3 N18.3 ; Type 2 diabetes mellitus with diabetic nephropathy E11.21 ; Type 2 diabetes mellitus with hyperglycemia E11.65 and assisted 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 [facility] [address] [id number] [place] [address] 14840 -8337 Dec, Leukocytosis, unspecified type D72.829 ; Chronic renal failure, stage 3 (moderate) N18.3 and Nausea R11.0 [place] [address] [place] [id number] [place] [address] 32704- 7269 Nov, [place] [address] 06568- 4061 Jul, [place] [address] 14534- 2966 Jul, Diabetes E11.9 ; Low back pain M54.5 and Other chronic pain G89.29 [place] [address] [place] [id number] [place] [address] 43436- 4662 June, [address] 97851- 6790 June, [place] [address] 23156- 9448 Jan, Viral illness B34.[address] 01448- 1039 Jan, Type 2 diabetes mellitus with hyperglycemia E11.65 ; Pain in right foot M79.671 and Localized edema R60.[address] 39203- 3594 Jan, [place] [address] 67341- 5369 Dec, Right foot pain M79.671 ; Insomnia, unspecified type G47.00 and Diabetes E11.9 [place] [address] [place] [id number] [place] [address] 57589- 1710 Dec, Pain in right foot M79.671 [place] [address] [place] [id number] [place] [address] 95407- 3056 Nov, [facility] [address] [id number] [place] [address]- 8302 Sep, [facility] [address] [id number] [place] [address]- 8657 Sep, Diabetes mellitus, type II 250.00 [facility] [address] [id number] [place] [address]- 5038 14 May, 2014 [facility] [address] [id number] [place] [address]- 8624 May, [facility] [address] [id number] [place] [address]- 6048 Apr, [facility] [address] [id number] [place] [address]- 6166 Apr, [facility] [address] [facility] [id number] [place] [address]- 3188 16 Apr, 2014 [facility] [address] [facility] [id number] [place] [address]- 4334 16 Apr, 2014 [facility] [address] [facility] [id number] [place] [address]- 1529 Apr, [facility] [address] [facility] [id number] [place] [address]- 3935 Apr, [facility] [address] [facility] [id number] [place] [address]- 7533 05 Apr, 2014 [facility] [place] [facility] [address] [id number] [address]- 6583 05 Apr, 2014 [facility] [place] [facility] [address] [id number] [place] [address]- 1482 Jan, [facility] [place] [facility] [address] [id number] [place] [address]- 9209 18 Jan, 2014 [facility] [place] [facility] [address] [facility] [id number] [place] [address]- 1599 15 Jan, 2014 [facility] [place] [facility] [address] [facility] [id number] [place] [address]- 3755 15 Jan, 2014 [facility] [place] [facility] [address] [id number] [place] [address]- 0590 Dec, [facility] [place] [facility] [address] [id number] [place] [address]- 2715 Dec, [facility] [place] [facility] [address] [id number] [place] [address]- 3852 Nov, [facility] [place] [facility] [address] [id number] [place] [address]- 3204 Nov, [facility] [place] [facility] [address] [id number] [place] [address]- 4512 Oct, [facility] [place] [facility] [address] [id number] [place] [address]- 9145 Oct, [facility] [place] [facility] [address] [id number] [place] [address]- 7438 Oct, [facility] [place] [facility] [address] [id number] [place] [address]- 9143 Oct, [facility] [place] [facility] [address] [id number] [place] [address]- 6974 Sep, [facility] [place] [facility] [address] [id number] [place] [address]- 3842 Sep, [facility] [place] [facility] [address] [id number] [place] [address]- 6853 Sep, [facility] [place] [facility] [address] [id number] [place] [address]- 4525 Sep, [facility] [place] [facility] [address] [id number] [place] [address]- 0856 Sep, [facility] [place] [facility] [address] [id number] [place] [address]- 3066 Sep, [facility] [place] [facility] [address] [id number] [place] [address]- 8798 Sep, [facility] [place] [facility] [address] [id number] [place] [address]- 5266 Sep, [facility] [place] [facility] [address] [id number] [place] [address]- 5442 Sep, [facility] [place] [facility] [address] [id number] [place] [address]- 7144 Sep, [facility] [place] [facility] [address] [id number] [place] [address]- 2593 Sep, [facility] [place] [facility] [address] [id number] [place] [address]- 7952 Sep, [facility] [place] [facility] [address] [id number] [place] [address]- 6986 Aug, [facility] [place] [facility] [address] [id number] [place] [address]- 8307 Aug, [facility] [place] [facility] [address] [id number] [place] [address]- 2278 Aug, [facility] [place] [facility] [address] [id number] [place] [address]- 3736 Aug, [facility] [place] [facility] [address] [id number] [place] [address]- 2579 June, [facility] [place] [facility] [address] [id number] [place] [address]- 5089 May, [facility] [place] [facility] [address] [id number] [place] [address]- 2071 May, [facility] [place] [facility] [address] [id number] [place] [address]- 2722 May, [facility] [place] [facility] [address] [id number] [place] [address]- 2826 May, [facility] [place] [facility] [address] [id number] [place] [address]- 4379 May, [facility] [place] [facility] [address] [id number] [place] [address]- 8398 17 May, 2013 [facility] [place] [facility] [address] [id number] [place] [address]- 7495 16 May, 2013 [facility] [place] [facility] [address] [id number] [place] [address]- 6859 16 May, 2013 [facility] [place] [facility] [address] [id number] [place] [address]- 5118 May, [facility] [place] [facility] [address] [id number] [place] [address]- 3348 14 May, 2013 [facility] [place] [facility] [address] [id number] [place] [address]- 2059 May, [facility] [place] [facility] [address] [id number] [place] [address]- 6842 May, [facility] [place] [facility] [address] [id number] [place] [address]- 6740 Apr, [facility] [place] [facility] [address] [id number] [place] [address]- 8896 Apr, [facility] [place] [facility] [address] [id number] [place] [address]- 2846 Mar, [facility] [place] [facility] [address] [id number] [place] [address]- 8619 Mar, [facility] [place] [facility] [address] [id number], [place] [address]- 3751 Dec, [facility] [place] [facility] [address] [id number] [place] [address]- 0336 Dec, [facility] [place] [facility] [address] [id number] [place] [address]- 0730 Dec, [facility] [place] [facility] [address] [id number] [place] [address]- 4690 Dec, [facility] [place] [facility] [address] [id number] [place] [address]- 8438 Nov, [facility] [place] [facility] [address] [id number] [place] [address]- 9099 25 Nov, 2012 [facility] [address] [id number] [place] [address]- 7589 30 Oct, 2012 [facility] [place] [facility] [address] [id number] [place] [address]- 3609 Oct, [facility] [address] [id number] [place] [address]- 6012 Aug, [facility] [address] [id number] [place] [address]- 3338 Aug, [facility] [address] [id number] [place] [address]- 2644 Aug, [facility] [address] [id number] [place] [address]- 1613 Jul, [facility] [address] [id number] [place] [address]- 2960 June, [facility] [address] [id number] [place] [address]- 2192 June, [facility] [address] [id number] [place] [address]- 3593 Apr, [facility] [address] [id number] [place] [address]- 6842 Mar, [facility] [place] [facility] [address] [id number] [place] [address]- 9137 Mar, [facility] [address] [id number] [place] [address]- 5641 Mar, [facility] [place] [facility] [address] [id number] [place] [address]- 1667 Mar, [facility] [place] [facility] [address] [id number] [place] [address] Mar, [facility] [place] [facility] [address] [id number] [place] [address] Feb, [facility] [place] [facility] [address] [id number] [place] [address] Feb, [facility] [place] [facility] [address] [id number] [place] [address] Feb, [facility] [place] [facility] [address] [id number] [place] [address] Feb, [facility] [place] [facility] [address] [id number] [place] [address] Jan, [facility] [place] [facility] [address] [id number] [place] [address] Jan, [facility] [place] [facility] [address] [id number] [place] [address] Dec, [facility] [place] [facility] [address] [id number] [place] [address] Dec, [facility] [place] [facility] [address] [id number] [place] [address] Dec, [facility] [place] [facility] [address] [id number] [place] [address] Dec, [facility] [place] [facility] [address] [id number] [place] [address] Oct, [facility] [place] [facility] [address] [id number] [place] [address] Aug, [facility] [place] [facility] [address] [id number], [place] [address] Jul, [facility] [place] [facility] [address] [id number] [place] [address] June, [facility] [place] [facility] [address] [id number] [place] [address] June, [facility] [place] [facility] [address] [id number] [place] [address] June, [facility] [place] [facility] [address] [id number] [place] [address] June, [facility] [address] [id number] [place] [address] June, [facility] [address] [id number] [place] [address] May, [facility] [address] [id number] [place] [address] May, [facility] [address] [id number] [place] [address]- [address] Apr, [facility] [address] [id number] [place] [address] Apr, [facility] [address] [id number] [place] [address] Mar, [facility] [address] [id number] [place] [address] Feb, [facility] [address] [id number] [place] [address] Nov, [facility] [address] [id number] [place] [address] Nov, [facility] [address] [facility] [id number] [place] [address] 13 Nov, 2010 [facility] [address] [id number] [place] [address] 17 Apr, 2010 [facility] [address] [id number] [place] [address] Jan, [facility] [place] [facility] [address] [id number] [place] [address] 24 Dec, 2009 [facility] [place] [facility] [address] [id number] [place] [address] Dec, [facility] [address] [id number] [place] [address] 29 Nov, 2009 [facility] [address] [id number] [place] [address] June, [facility] [address] [id number] [place] [address] 29 Jan, 2009 [facility] [address] [id number] [place] [address] 28 Jan, 2009 [facility] [address] [id number] [place] [address] 23 Jan, 2009 [facility] [address] [id number] [place] [address] 22 Jan, 2009 [facility] [address] [id number] [place] [address] 16 Jan, 2009 [facility] [address] [facility] [id number] [place] [address] 15 Jan, 2009 [facility] [address] [id number], [place] [address] 15 Jan, 2009 [facility] [address] [facility] [id number], [place] [address] 11 Jan, 2009 [facility] [address] [facility] [id number], [place] [address] 11 Jan, 2009 [facility] [place] [facility] [address] [facility] [id number], [place] [address] 10 Jan, 2009 [facility] [place] [facility] [address] [id number], [place] [address] 04 Jan, 2009 [facility] [place] [facility] [address] [id number], [place] [address] 02 Jan, 2009 [facility] [place] [facility] [address] [id number][place] 25 Dec, 2008 [facility] [place] [facility] [address] [facility] [id number], [place] [address] Dec, [facility] [place] [facility] [address] [id number], [place] [address] Dec, [facility] [address] [facility] [id number] [place] [address] Dec, [facility] [address] [facility] [id number], [place] [address] Nov, [facility] [address] [facility] [id number] [place] [address] 10 Oct, 2008 IMMUNIZATIONS No Known Immunizations SOCIAL HISTORY Never Assessed REASON FOR VISIT Orders from Results PLAN OF CARE VITAL SIGNS MEDICATIONS Medication Instructions Dosage Frequency Start Date End Date Duration Status Atorvastatin Calcium 40 MG Orally Once a day 1 tablet 24h Active RESULTS No Results PROCEDURES No Known [...] left knee pseudogout status post joint fluid analysis-[facility] 09/20/16
--- OUTSIDE RECORDS SUMMARY | 2017-12-06 13:46 | XMS REPORT ---
Author Author CHAPARRO MUJICA Organization [facility] Address [address] [place] [address] Care Team Providers Care Seo Consultant Name Role Phone CHAPARRO MUJICA Unavailable PROBLEMS Type Condition ICD9-CM Code NAP88-EN Code Onset Dates Condition Status SNOMED Code Problem 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 573989296 Problem Mood disorder F39 Active 99538108 Problem Chronic kidney disease, stage 3 N18.3 Active 439642379 Problem Chronic kidney disease, stage V (very severe) N18.5 Active 007404745 Problem Essential hypertension I10 Active 32314971 Problem Pseudogout M11.20 Active 384114959 Problem Mixed hyperlipidemia E78.2 Active 232840564 Problem Primary osteoarthritis of left knee M17.12 Active [id number] Problem Gout of left knee due to renal impairment, unspecified chronicity M10.362 Active 289089288 Problem Hypertriglyceridemia E78.1 Active 669921613 Problem Gastroesophageal reflux disease, esophagitis presence not specified K21.9 Active 133241593 Problem Coronary atherosclerosis of unspecified type of vessel, quinault or graft I25.10 Active 646155119 Problem Gout, unspecified M10.9 Active 64848819 Problem correction 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 Active 706014512 Problem Insomnia, unspecified G47.00 Active 110920243 Problem Type 2 diabetes mellitus with hyperglycemia E11.65 Active [id number] ALLERGIES Substance Reaction Event Type Date Status Acetaminophen-Codeine #3 Failed Ameritox UDS- THC Drug Allergy Sep, Active ENCOUNTERS Encounter Location Date Diagnosis [facility] [address] [facility] [id number] [address] Oct, Chronic kidney disease, stage V (very severe) N18.5 [facility] [address] [facility] [id number] [place] [address] Oct, Mixed hyperlipidemia E78.2 [facility] [place] [address] [place] [id number] [place] [address] 26972- 7603 Sep, Type 2 diabetes mellitus with hyperglycemia E11.65 [facility] [place] [address] [place] [id number] [place] [address] 37755- 5815 Sep, Mixed hyperlipidemia E78.2 [facility] [place] [address] [id number] [place] [address] 17192- 2220 Sep, Chronic kidney disease, stage V (very severe) N18.5 [facility] [place] [address] [id number] [place] [address] 56257- 8710 Sep, Type 2 diabetes mellitus with hyperglycemia E11.65 and Essential hypertension I10 [place] [address] [place] [id number] [place] [address] 89082- 3481 Sep, Type 2 diabetes mellitus with hyperglycemia E11.65 [facility] [place] [address] [id number] [place] [address] 36168- 8969 Aug, Gout, unspecified M10.9 ; Gastroesophageal reflux disease, esophagitis presence not specified K21.9 ; Mood disorder F39 and Coronary atherosclerosis of unspecified type of vessel, quinault or graft I25.10 [place] [address] [place] [address] [id number] [place] [address] 51480- 6433 Aug, [facility] [place] [address] [id number] [place] [address] 02000- 1795 June, Type 2 diabetes mellitus with hyperglycemia E11.65 [facility] [place] [address] [address] [id number] [place] [address] 89404- 6876 May, Mood disorder F39 ; Gastroesophageal reflux disease, esophagitis presence not specified K21.9 ; Gout, unspecified M10.9 ; Coronary atherosclerosis of unspecified type of vessel, quinault or graft I25.10 and Type 2 diabetes mellitus with hyperglycemia E11.65 [place] [address] [place] [address] 00871- 7066 May, Type 2 diabetes mellitus with hyperglycemia E11.65 [place] [address] [place] [address] 09540- 9762 Apr, Diabetes E11.9 and Mood disorder F39 [place] [address] [place] [address] [id number] [place] [address] 04955- 9579 15 Mar, 2017 Primary osteoarthritis of left knee M17.12 and Tear of lateral meniscus of left knee, unspecified tear type, unspecified whether old or current tear, initial encounter S83.282A [facility] [address] [address] [id number] [place] [address] 21547- 5003 Feb, Mood disorder F39 [facility] [address] [address] [id number] [place] [address] 66371- 5133 Feb, Pseudogout M11.20 [facility] [address] [address] [id number] [place] [address] 75798- 7986 Jan, 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 [facility] [id number] [place] [address] 44993 -2049 Jan, [facility] [address] [place] [address] [id number] [place] [address] 08386- 0266 Jan, Pseudogout M11.20 ; Type 2 diabetes mellitus with hyperglycemia E11.65 and 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 [place] [address] [place] [address] 63973- 7986 Jan, Gout of left knee due to renal impairment, unspecified chronicity M10.362 ; Type 2 diabetes mellitus with diabetic nephropathy E11.21 ; Synovial cyst of popliteal space [Mejia], left knee M71.22 and Low back pain M54.5 [facility] [address] [id number] [place] [address] 41422- 6683 Dec, Pseudogout M11.20 [facility] [id number] [place] [address] 25831- 6149 14 Dec, 2016 [place] [address] [id number] [place] [address] 13902- 5152 Dec, Type 2 diabetes mellitus with diabetic nephropathy E11.21 and Right anterior knee pain M25.561 [facility] [address] [address] [id number] [place] [address] 64523- 8821 Nov, Pseudogout M11.20 [facility] [address] [id number] [place] [address] 96685- 7938 Nov, Pseudogout M11.20 ; Chronic kidney disease, stage 3 N18.3 ; Mixed hyperlipidemia E78.2 ; Gout, unspecified M10.9 ; Coronary atherosclerosis of unspecified type of vessel, quinault or graft I25.10 ; Mood disorder F39 and Gastroesophageal reflux disease, esophagitis presence not specified K21.9 [place] [address] [address] [id number] [place] [address] 39458- 6693 Nov, [facility] [place] [address] [address] [id number] [place] [address] 42033- 2080 Oct, Pseudogout M11.20 [place] [address] [id number] [place] [address] 85260- 4467 Sep, Pseudogout M11.20 [facility] [address] [address] [id number] [place] [address] 10313- 8439 Sep, Pseudogout M11.20 [place] [address] [address] [id number] [place] [address] 39797- 1413 Sep, [facility] [id number] [place] [address] [id number] Aug, [place] [address] [place] [address] 38189- 2995 Aug, Diabetes E11.9 ; Chronic kidney disease, stage 3 N18.3 ; Hyperuricemia E79.0 ; Mixed hyperlipidemia E78.2 ; Gastroesophageal reflux disease, esophagitis presence not specified K21.9 ; Gout, unspecified M10.9 ; Coronary atherosclerosis of unspecified type of vessel, quinault or graft I25.10 and Mood disorder F39 [place] [address] [address] June, [facility] [address] [place] [address] 32913- 9660 June, [facility] [id number] [place] [address] 12006- 6832 June, [facility] [id number] [place] [address] 50497- 5906 May, Chronic renal failure, stage 3 (moderate) N18.3 [facility] [address] [place] [address] 70075- 5098 May, Diabetes E11.9 [facility] [address] [id number] [place] [address] 49264- 7188 May, [facility] [id number] [place] [address] 80304- 1795 Apr, [facility] [address] [place] [address] 94014- 1965 Apr, [facility] [address] [place] [address] 78575- 9174 Apr, Cellulitis of right lower extremity L03.115 and Diabetes E11.9 [facility] [address] [place] [address] 19086- 2476 Apr, Type 2 diabetes mellitus with hyperglycemia E11.65 [facility] [address] [place] [address] 17190- 4937 Mar, Cellulitis of right lower extremity L03.115 and Low back pain M54.5 [facility] [address] [place] [address] 77535- 8449 Mar, [facility] [address] [place] [address] 33536- 0270 Mar, Cellulitis of right lower extremity L03.115 [facility] [id number] [place] [address] 49515- 8949 Mar, Cellulitis of right lower extremity L03.115 [place] [address] [place] [address] 47097- 7907 Feb, Cellulitis of right lower extremity L03.115 [place] [address] [place] [address] 73739- 7319 Feb, Cellulitis of right lower extremity L03.115 [place] [address] [place] [address] 10959- 4450 Feb, [place] [address] [place] [address] 01538- 7361 Feb, Leukocytosis, unspecified type D72.829 ; Chronic renal failure, stage 3 (moderate) N18.3 and Type 2 diabetes mellitus with hyperglycemia E11.65 [place] [address] [place] [address] 65961- 2093 Feb, Leukocytosis, unspecified type D72.829 [place] [address] [place] [address] 12708- 8726 Feb, [place] [address] [place] [address] 35266- 9130 Feb, Cellulitis of right lower extremity L03.115 ; Thrush B37.0 ; Gout of left knee due to renal impairment, unspecified chronicity M10.362 and Chronic renal failure, stage 3 (moderate) N18.3 [place] [address] [place] [address] 36673- 1028 Feb, [place] [address] [place] [address] 35230- 7289 Feb, Right foot infection L08.9 ; Type 2 diabetes mellitus with hyperglycemia E11.65 ; Arthralgia of left knee M25.562 ; Chronic kidney disease , stage 3 N18.3 and Diabetes E11.9 [place] [address] [place] [address] 52887- 4674 Feb, [place] [address] [place] [address] 49172- 7677 Feb, Diabetes E11.9 ; Arthralgia of left knee M25.562 and Thrush B37.0 [place] [address] [place] [address] [id number] [place] [address] 08431- 0121 Jan, [place] [address] [place] [id number] [place] [address] 09651- 9729 Jan, Type 2 diabetes mellitus with hyperglycemia E11.65 ; Chronic renal failure, stage 3 (moderate) N18.3 and Leukocytosis, unspecified type D72.829 [place] [address] [place] [id number] [place] [address] 08047- 0050 Jan, Type 2 diabetes mellitus with hyperglycemia E11.65 [place] [address] [place] [id number] [place] [address] 67673- 2033 Dec, Gout of left knee due to renal impairment, unspecified chronicity M10.362 [place] [address] [place] [id number] [place] [address] 11754- 8907 Dec, Gout of left knee due to renal impairment, unspecified chronicity M10.362 and Diabetes E11.9 [place] [address] [place] [address] 31452- 3842 Dec, [place] [address] [place] [id number] [place] [address] 99002- 7630 Dec, [facility] [address] [address] Dec, [place] [address] [place] [id number] [place] [address] 79015- 3007 Dec, Chronic kidney disease, stage 3 N18.3 ; Type 2 diabetes mellitus with diabetic nephropathy E11.21 ; Type 2 diabetes mellitus with hyperglycemia E11.65 and 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 [facility] [address] [place] [id number] [place] [address] 11638 -7036 Dec, Leukocytosis, unspecified type D72.829 ; Chronic renal failure, stage 3 (moderate) N18.3 and Nausea R11.0 [place] [address] 62512- 2756 Nov, [facility] [address] 99033- 0521 Jul, [facility] [address] 36286- 9412 Jul, Diabetes E11.9 ; Low back pain M54.5 and Other chronic pain G89.29 [place] [address] 55072- 9064 June, [place] [address] 79001- 5160 June, [place] [address] 40859- 3126 Jan, Viral illness B34.9 [place] [address] 47368- 1593 Jan, Type 2 diabetes mellitus with hyperglycemia E11.65 ; Pain in right foot M79.671 and Localized edema R60.0 [place] [address] [place] [id number] [place] [address] 93645- 4930 Jan, [place] [address] 10341- 5285 Dec, Right foot pain M79.671 ; Insomnia, unspecified type G47.00 and Diabetes E11.9 [place] [address] 33340- 0950 Dec, Pain in right foot M79.671 [facility] [address] [place] [id number] [place] [address] 68473- 1107 Nov, [place] [address] 66055- 7328 Sep, [facility] [address] [id number] [place] [address]- 9947 Sep, Diabetes mellitus, type II 250.00 [facility] [address] [id number] [place] [address]- 2686 14 May, 2014 [facility] [address] [id number] [place] [address]- 2975 May, [facility] [address] [id number] [place] [address]- 1352 Apr, [facility] [address] [id number] [place] [address]- 4989 19 Apr, 2014 [facility] [address] [id number] [place] [address]- 7752 16 Apr, 2014 [facility] [address] [id number] [place] [address]- 2352 16 Apr, 2014 [facility] [address] [id number] [place] [address]- 0487 Apr, [facility] [address] [id number] [place] [address]- 7500 Apr, [facility] [address] [id number] [place] [address]- 4911 05 Apr, 2014 [facility] [address] [id number] [place] [address]- 9231 05 Apr, 2014 [facility] [place] [facility] [address] [id number] [place] [address]- 2386 18 Jan, 2014 [facility] [place] [facility] [address] [id number] [place] 3298 18 Jan, 2014 [facility] [place] [facility] [address] [facility] [id number] [place]- 6290 15 Jan, 2014 [facility] [place] [facility] [address] [facility] [id number] [place] 4078 15 Jan, 2014 [facility] [place] [facility] [address] [id number] [place] [address]- 4426 10 Dec, 2013 [facility] [place] [facility] [address] [id number] [place] [address]- 7768 Dec, [facility] [place] [facility] [address] [id number] [place] [address]- 1595 Nov, [facility] [place] [facility] [address] [id number] [place] [address]- 7908 Nov, [facility] [place] [facility] [address] [id number] [place] [address]- 8059 Oct, [facility] [place] [facility] [address] [id number] [place] [address]- 3884 Oct, [facility] [place] [facility] [address] [id number] [place] [address]- 4991 05 Oct, 2013 [facility] [place] [facility] [address] [id number] [place] [address]- 0235 Oct, [facility] [place] [facility] [address] [id number] [place] [address]- 7096 Sep, [facility] [place] [facility] [address] [id number] [place] [address]- 2130 Sep, [facility] [place] [facility] [address] [id number] [place] [address]- 5382 Sep, [facility] [place] [facility] [address] [id number] [place] [address]- 6181 Sep, [facility] [place] [facility] [address] [id number] [place] [address]- 8510 Sep, [facility] [place] [facility] [address] [id number] [place] [address]- 4263 Sep, [facility] [place] [facility] [address] [id number] [place] [address]- 6962 Sep, [facility] [place] [facility] [address] [id number] [place] [address]- 0503 Sep, [facility] [place] [facility] [address] [id number] [place] [address]- 1159 Sep, [facility] [place] [facility] [address] [id number] [place] [address]- 1604 Sep, [facility] [place] [facility] [address] [id number] [place] [address]- 1587 Sep, [facility] [place] [facility] [address] [id number] [place] [address]- 4697 Sep, [facility] [place] [facility] [address] [id number] [place] [address]- 2247 Aug, [facility] [place] [facility] [address] [id number] [place] [address]- 8321 Aug, [facility] [place] [facility] [address] [id number] [place] [address]- 3675 Aug, [facility] [place] [facility] [address] [id number] [place] [address]- 6392 Aug, [facility] [place] [facility] [address] [id number] [place] [address]- 7019 June, [facility] [place] [facility] [address] [id number] [place] [address]- 2010 May, [facility] [place] [facility] [address] [id number] [place] [address]- 2224 May, [facility] [place] [facility] [address] [id number] [place] [address]- 8230 May, [facility] [place] [facility] [address] [id number] [place] [address]- 2608 May, [facility] [place] [facility] [address] [id number] [place] [address]- 6766 May, [facility] [place] [facility] [address] [id number] [place] [address]- 9846 May, [facility] [place] [facility] [address] [id number] [place] [address]- 6295 16 May, 2013 [facility] [place] [facility] [address] [id number] [place] [address]- 3588 16 May, 2013 [facility] [place] [facility] [address] [id number] [place] [address]- 3388 14 May, 2013 [facility] [place] [facility] [address] [id number] [place] [address]- 9452 14 May, 2013 [facility] [place] [facility] [address] [id number] [place] [address]- 9959 14 May, 2013 [facility] [place] [facility] [address] [id number] [place] [address]- 2881 May, [facility] [place] [facility] [address] [facility] [id number] [place] [address]- 7137 Apr, [facility] [place] [facility] [address] [facility] [id number] [place] [address]- 7444 Apr, [facility] [place] [facility] [address] [facility] [id number] [place] [address]- 9549 Mar, [facility] [place] [facility] [address] [facility] [id number] [place] [address]- 9666 Mar, [facility] [place] [facility] [address] [facility] [id number] [place] [address]- 5373 Dec, [facility] [place] [facility] [address] [id number] [place] [address]- 5726 Dec, [facility] [place] [facility] [address] [facility] [id number] [place] [address]- 8293 Dec, [facility] [place] [facility] [address] [id number] [place] [address]- 8677 Dec, [facility] [place] [facility] [address] [facility] [id number] [place] [address]- 7176 Nov, [facility] [place] [facility] [address] [facility] [id number] [place] [address]- 9505 Nov, [facility] [place] [facility] [address] [id number] [place] [address]- 2386 30 Oct, 2012 [facility] [place] [facility] [address] [id number] [place] [address]- 8318 27 Oct, 2012 [facility] [place] [facility] [address] [id number] [place] [address]- 8471 Aug, [facility] [place] [facility] [address] [id number] [place] [address]- 8993 Aug, [facility] [place] [facility] [address] [id number] [place] [address]- 3142 Aug, [facility] [place] [facility] [address] [id number] [place] [address]- 8801 Jul, [facility] [place] [facility] [address] [facility] [id number] [place] [address] June, [facility] [place] [facility] [address] [id number] [place] [address] June, [facility] [place] [facility] [address] [id number] [place] [address] Apr, [facility] [place] [facility] [address] [id number] [place] [address] Mar, [facility] [place] [facility] [address] [id number] [place] [address] Mar, [facility] [place] [facility] [address] [id number] [place] [address] Mar, [facility] [place] [facility] [address] [id number] [place] [address] Mar, [facility] [place] [facility] [address] [id number] [place] [address] Mar, [facility] [place] [facility] [address] [id number] [place] [address] Feb, [facility] [place] [facility] [address] [id number] [place] [address] Feb, [facility] [address] [id number] [place] [address] Feb, [facility] [place] [facility] [address] [id number] [place] [address] Feb, [facility] [address] [id number] [place] [address] Jan, [facility] [place] [facility] [address] [id number] [place] [address] Jan, [facility] [address] [id number] [place] [address] Dec, [facility] [place] [facility] [address] [id number] [place] [address] Dec, [facility] [address] [id number] [place] [address] Dec, [facility] [place] [facility] [address] [id number] [place] [address] Dec, [facility] [address] [id number] [place] [address] Oct, [facility] [place] [facility] [address] [id number] [place] [address] Aug, [facility] [address] [id number] [place] [address] Jul, [facility] [place] [facility] [address] [id number] [place] [address] June, [facility] [place] [facility] [address] [id number] [place] [address] June, [facility] [place] [facility] [address] [id number] [place] [address] June, [facility] [place] [facility] [address] [facility] [id number] [place] [address] June, [facility] [place] [facility] [address] [id number] [place] [address] June, [facility] [place] [facility] [address] [id number] [place] [address] May, [facility] [place] [facility] [address] [id number] [place] [address] May, [facility] [place] [facility] [address] [id number] [place] [address] Apr, [facility] [place] [facility] [address] [id number] [place] [address] Apr, [facility] [place] [facility] [address] [id number] [place] [address] Mar, [facility] [place] [facility] [address] [id number] [place] [address] Feb, [facility] [place] [facility] [address] [id number] [place] [address] Nov, [facility] [place] [facility] [address] [id number] [place] [address] Nov, [facility] [place] [facility] [address] [id number] [place] [address]- [address] Nov, [facility] [place] [facility] [address] [id number] [place] [address] Apr, [facility] [place] [facility] [address] [id number] [place] [address] Jan, [facility] [place] [facility] [address] [id number] [place] [address] Dec, [facility] [place] [facility] [address] [id number] [place] [address] Dec, [facility] [place] [facility] [address] [id number] [place] [address] Nov, [facility] [place] [facility] [address] [id number] [place] [address] June, [facility] [address] [id number] [place] [address]- [id number] 29 Jan, 2009 [facility] [address] [id number] [place] [address] 28 Jan, 2009 [facility] [address] [facility] [id number] [place] [address] 23 Jan, 2009 [facility] [address] [id number] [place] [address] 22 Jan, 2009 [facility] [address] [id number] [place] [address] 16 Jan, 2009 [facility] [address] [id number] [place] [address] 15 Jan, 2009 [facility] [address] [facility] [id number] [place] [address] 15 Jan, 2009 [facility] [address] [id number] [place] [address] 11 Jan, 2009 [facility] [address] [id number] [place] [address] 11 Jan, 2009 [facility] [address] [facility] [id number] [place] [address] 10 Jan, 2009 [facility] [address] [id number] [place] [address] 04 Jan, 2009 [facility] [place] [facility] [address] [id number] [place] [address] 02 Jan, 2009 [facility] [place] [facility] [address] [id number] [place] [address] 25 Dec, 2008 [facility] [place] [facility] [address] [id number] [place] [address] Dec, [facility] [place] [facility] [address] [facility] [id number] [place] [address] 17 Dec, 2008 [facility] [place] [facility] [address] [facility] [id number] [place] [address] Dec, [facility] [address] [facility] [id number] [place] [address] Nov, [facility] [address] [facility] [id number] [place] [address] Oct, IMMUNIZATIONS No Known Immunizations SOCIAL HISTORY Never Assessed REASON FOR VISIT Diabetes-ANDREY mckay PLAN OF CARE Activity Details Follow Up 3 Months Reason:DM VITAL SIGNS Height 73 in 2017-10-12 Weight 302.0 lbs 2017-10-12 Temperature 98.8 degrees Fahrenheit 2017-10-12 Heart Rate 73 bpm 2017-10-12 Respiratory Rate 20 2017-10-12 Oximetry on room air:97 % 2017-10-12 BMI 39.84 kg/m2 2017-10-12 Blood pressure systolic 150 mmHg 2017-10-12 Blood pressure diastolic 98 mmHg 2017-10-12 MEDICATIONS Medication Instructions Dosage Frequency Start Date End Date Duration Status NovoLog 100 UNIT/ML Subcutaneous 3 times a day Inject 30 units with meals 8h Dec, 90 days Active Trulicity 0.75 MG/0.5ML Subcutaneous once weekly Inject 0.5 ml Jan, 90 days Active Lantus 100 UNIT/ML Subcutaneous 2 times a day 35u 12h Sep, Active Insulin Syringe 31G X 5/16 as directed Jan, Active Uloric 80 MG Orally Once a day 1 tablet 24h Aug, 90 days Active Toprol XL 100 mg Orally Once a day 1 /2tablet 24h Active Aspir-81 81 MG Orally Once a day 1 tablet 24h Active Omeprazole 40 MG Orally Once a day 1 capsule 24h 30 days Active Atorvastatin Calcium 10 MG Orally Once a day 1 tablet 24h 90 days Active Plavix 75 MG Orally Once a day 1 tablet 24h 90 days Active BD Insulin Syringe Ultrafine 31G X 15/64 as directed May, Active Seroquel 50 mg Orally Once a day 3 Tablets 24h Jan, 30 days Active Levemir FlexTouch 100 UNIT/ML Subcutaneous 2 times a day Inject 35 units 12h Jan, 90 days Not-Taking RESULTS Name Result Date Reference Range A1C (IN HOUSE) 2017-10-12 A1C IN HOUSE 11.1 4.3 - 5.6 % Previous A1c 10.1 Lot [id number] Exp date 04/2019 PROCEDURES Procedure Date Ordered Result Body Site GLYCATED HEMOGLOBIN TEST Oct 12, 2017 INSTRUCTIONS MEDICATIONS ADMINISTERED No Known Medications [...] left knee pseudogout status post joint fluid analysis-[facility] 09/20/16
--- OUTSIDE RECORDS SUMMARY | 2017-12-06 13:46 | XMS REPORT ---
Author Author CHAPARRO MUJICA [facility] Address [address] [place] [address] Care Team Providers Care [employer] Worker Name Role Phone CHPAARRO MUJICA Unavailable PROBLEMS Type Condition ICD9-CM Code NGP16-EQ Code Onset Dates Condition Status SNOMED Code Problem 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 314144741 Problem Mood disorder F39 Active 95253130 Problem Chronic kidney disease, stage 3 N18.3 Active 317222548 Problem Chronic kidney disease, stage V (very severe) N18.5 Active 018817200 Problem Essential hypertension I10 Active 37699541 Problem Pseudogout M11.20 Active 008872014 Problem Mixed hyperlipidemia E78.2 Active 613308458 Problem Primary osteoarthritis of left knee M17.12 Active 492381225449103 Problem Gout of left knee due to renal impairment, unspecified chronicity M10.362 Active 285473537 Problem Hypertriglyceridemia E78.1 Active 489954748 Problem Gastroesophageal reflux disease, esophagitis presence not specified K21.9 Active 378984076 Problem Coronary atherosclerosis of unspecified type of vessel, nulato or graft I25.10 Active 602903979 Problem Gout, unspecified M10.9 Active 86981893 Problem FPC 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 Active 270990546 Problem Insomnia, unspecified G47.00 Active 779949312 Problem Type 2 diabetes mellitus with hyperglycemia E11.65 Active [id number] ALLERGIES No Information ENCOUNTERS Encounter Location Date Diagnosis [facility] [address] [facility] [id number] [address] Oct, Essential hypertension I10 and Coronary atherosclerosis of unspecified type of vessel, nulato or graft I25.10 [facility] [address] [facility] [id number] [address] 07 Oct, 2017 Chronic kidney disease, stage V (very severe) N18.5 [place] [id number] [place] [address] 68125- 8775 Oct, Mixed hyperlipidemia E78.2 [place] [address] [place] [id number] [place] [address] 83974- 8006 Sep, Type 2 diabetes mellitus with hyperglycemia E11.65 [place] [id number] [place] [address] 24982- 8423 Sep, Mixed hyperlipidemia E78.2 [place] [id number] [place] [address] 78474- 7976 Sep, Chronic kidney disease, stage V (very severe) N18.5 [place] [id number] [place] [address] 92645- 4950 Sep, Type 2 diabetes mellitus with hyperglycemia E11.65 and Essential hypertension I10 [place] [id number] [place] [address] 32860- 1657 Sep, Type 2 diabetes mellitus with hyperglycemia E11.65 [place] [id number] [place] [address] 51551- 0006 Aug, Gout, unspecified M10.9 ; Gastroesophageal reflux disease, esophagitis presence not specified K21.9 ; Mood disorder F39 and Coronary atherosclerosis of unspecified type of vessel, nulato or graft I25.10 [place] [address] [address] Aug, [place] [id number] [place] [address] 88562- 7648 June, Type 2 diabetes mellitus with hyperglycemia E11.65 [place] [id number] [place] [address] 64074- 4030 May, Mood disorder F39 ; Gastroesophageal reflux disease, esophagitis presence not specified K21.9 ; Gout, unspecified M10.9 ; Coronary atherosclerosis of unspecified type of vessel, nulato or graft I25.10 and Type 2 diabetes mellitus with hyperglycemia E11.65 [place] [id number] [place] [address] 80542- 5392 May, Type 2 diabetes mellitus with hyperglycemia E11.65 [place] [id number] [place] [address] 57625- 5065 Apr, Diabetes E11.9 and Mood disorder F39 [facility] [id number] [place] [address] 05028- 3631 15 Mar, 2017 Primary osteoarthritis of left knee M17.12 and Tear of lateral meniscus of left knee, unspecified tear type, unspecified whether old or current tear, initial encounter S83.282A [place] [id number] [place] [address] 73300- 0965 Feb, Mood disorder F39 [place] [id number] [place] [address] 98303- 1503 09 Feb, 2017 Pseudogout M11.20 [place] [address] 73793- 6501 Jan, Other financial professional (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 [facility] [id number] [place] [address] 30426 -2804 Jan, [place] [id number] [place] [address] 11768- 7290 Jan, Pseudogout M11.20 ; Type 2 diabetes mellitus with hyperglycemia E11.65 and Other correction (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 [place] [id number] [place] [address] 83235- 6634 Jan, Gout of left knee due to renal impairment, unspecified chronicity M10.362 ; Type 2 diabetes mellitus with diabetic nephropathy E11.21 ; Synovial cyst of popliteal space [Mejia], left knee M71.22 and Low back pain M54.5 [facility] [id number] [place] [address] 13436- 7094 21 Dec, 2016 Pseudogout M11.20 [facility] [id number] [place] [address] 25355- 7662 Dec, [place] [id number] [place] [address] 46012- 7083 Dec, Type 2 diabetes mellitus with diabetic nephropathy E11.21 and Right anterior knee pain M25.561 [place] [id number] [place] [address] 29364- 6771 Nov, Pseudogout M11.20 [place] [id number] [place] [address] 91664- 5136 Nov, Pseudogout M11.20 ; Chronic kidney disease, stage 3 N18.3 ; Mixed hyperlipidemia E78.2 ; Gout, unspecified M10.9 ; Coronary atherosclerosis of unspecified type of vessel, nulato or graft I25.10 ; Mood disorder F39 and Gastroesophageal reflux disease, esophagitis presence not specified K21.9 [place] [id number] [place] [address] 22579- 0340 Nov, [place] [id number] [place] [address] 88122- 7950 Oct, Pseudogout M11.20 [place] [id number] [place] [address] 83188- 3437 Sep, Pseudogout M11.20 [place] [id number] [place] [address] 19183- 5632 Sep, Pseudogout M11.20 [place] [id number] [place] [address] 58511- 1334 Sep, [place] [address] [place] [id number] [place] [address] [id number] Aug, [place] [address] 10178- 6617 Aug, Diabetes E11.9 ; Chronic kidney disease, stage 3 N18.3 ; Hyperuricemia E79.0 ; Mixed hyperlipidemia E78.2 ; Gastroesophageal reflux disease, esophagitis presence not specified K21.9 ; Gout, unspecified M10.9 ; Coronary atherosclerosis of unspecified type of vessel, nulato or graft I25.10 and Mood disorder F39 [facility] [id number] [place] [address] 14329- 2471 June, [facility] [id number] [place] [address] 36099- 4106 June, [facility] [id number] [place] [address] 04732- 7693 June, [facility] [id number] [place] [address] 27401- 3202 May, Chronic renal failure, stage 3 (moderate) N18.3 [facility] [id number] [place] [address] 92273- 6240 May, Diabetes E11.9 [facility] [id number] [place] [address] 03261- 2619 May, [facility] [id number] [place] [address] 52060- 6957 Apr, [facility] [id number] [place] [address] 84868- 8897 Apr, [facility] [id number] [place] [address] 93079- 0381 Apr, Cellulitis of right lower extremity L03.115 and Diabetes E11.9 [facility] [id number] [place] [address] 65764- 8156 Apr, Type 2 diabetes mellitus with hyperglycemia E11.65 [facility] [id number] [place] [address] 17010- 9594 Mar, Cellulitis of right lower extremity L03.115 and Low back pain M54.5 [facility] [id number] [place] [address] 98485- 1302 Mar, [facility] [id number] [place] [address] 13572- 3023 Mar, Cellulitis of right lower extremity L03.115 [facility] [address] [address]- 0401 Mar, Cellulitis of right lower extremity L03.115 [facility] [address] [address]- 9054 Feb, Cellulitis of right lower extremity L03.115 [facility] [address] [place] [address] 01686- 5318 Feb, Cellulitis of right lower extremity L03.115 [facility] [address] [address]- 2678 Feb, [place] [address] [place] [address] 93201- 7075 Feb, Leukocytosis, unspecified type D72.829 ; Chronic renal failure, stage 3 (moderate) N18.3 and Type 2 diabetes mellitus with hyperglycemia E11.65 [place] [address] [address]- 0857 Feb, Leukocytosis, unspecified type D72.829 [place] [address] [address]- 4160 Feb, [place] [address] [address]- 6092 Feb, Cellulitis of right lower extremity L03.115 ; Thrush B37.0 ; Gout of left knee due to renal impairment, unspecified chronicity M10.362 and Chronic renal failure, stage 3 (moderate) N18.3 [facility] [address] [place] [id number] [address]- 0921 Feb, [place] [address] [address]- 4139 Feb, Right foot infection L08.9 ; Type 2 diabetes mellitus with hyperglycemia E11.65 ; Arthralgia of left knee M25.562 ; Chronic kidney disease , stage 3 N18.3 and Diabetes E11.9 [place] [address] [address]- 6087 Feb, [place] [id number] [place] [address] 14291- 9731 Feb, Diabetes E11.9 ; Arthralgia of left knee M25.562 and Thrush B37.0 [place] [id number] [place] [address] 41856- 8565 Jan, [place] [id number] [place] [address] 70524- 5746 Jan, Type 2 diabetes mellitus with hyperglycemia E11.65 ; Chronic renal failure, stage 3 (moderate) N18.3 and Leukocytosis, unspecified type D72.829 [place] [id number] [place] [address] 79105- 4589 Jan, Type 2 diabetes mellitus with hyperglycemia E11.65 [place] [id number] [place] [address] 81457- 0271 Dec, Gout of left knee due to renal impairment, unspecified chronicity M10.362 [place] [id number] [place] [address] 47533- 4797 Dec, Gout of left knee due to renal impairment, unspecified chronicity M10.362 and Diabetes E11.9 [place] [id number] [place] [address] 09407- 1995 Dec, [place] [id number] [place] [address] 06429- 8618 Dec, [facility] [address] [place] [address] 38639 -6079 Dec, [place] [id number] [place] [address] 98714- 8821 Dec, Chronic kidney disease, stage 3 N18.3 ; Type 2 diabetes mellitus with diabetic nephropathy E11.21 ; Type 2 diabetes mellitus with hyperglycemia E11.65 and FPC 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 [facility] [id number] [place] [address] 85558 -0823 Dec, Leukocytosis, unspecified type D72.829 ; Chronic renal failure, stage 3 (moderate) N18.3 and Nausea R11.0 [place] [id number] [place] [address] 08959- 2741 Nov, [place] [address] 59790- 2481 Jul, [place] [address] 93416- 5848 Jul, Diabetes E11.9 ; Low back pain M54.5 and Other chronic pain G89.29 [place] [address] [id number] [place] [address] 17581- 7138 June, [address] 86247- 7752 June, [place] [address] 97109- 5195 Jan, Viral illness B34.[address] 93966- 6138 Jan, Type 2 diabetes mellitus with hyperglycemia E11.65 ; Pain in right foot M79.671 and Localized edema R60.[address] 80691- 8388 Jan, [place] [address] 00193- 5870 Dec, Right foot pain M79.671 ; Insomnia, unspecified type G47.00 and Diabetes E11.9 [place] [address] [id number] [place] [address] 66385- 6719 Dec, Pain in right foot M79.671 [place] [id number] [place] [address] 10387- 6601 Nov, [facility] [address] [id number] [place] [address]- 6689 Sep, [facility] [address] [id number] [place] [address]- 3383 Sep, Diabetes mellitus, type II 250.00 [facility] [address] [id number] [place] [address]- 4284 14 May, 2014 [facility] [address] [id number] [place] [address]- 4865 May, [facility] [address] [id number] [place] [address]- 1951 Apr, [facility] [address] [id number] [place] [address]- 5251 Apr, [facility] [address] [facility] [id number] [place] [address]- 7368 16 Apr, 2014 [facility] [address] [facility] [id number] [place] [address]- 8573 16 Apr, 2014 [facility] [address] [facility] [id number] [place] [address]- 5331 Apr, [facility] [address] [facility] [id number] [place] [address]- 4613 Apr, [facility] [address] [facility] [id number] [place] [address]- 4442 05 Apr, 2014 [facility] [place] [facility] [address] [id number] [address]- 3365 05 Apr, 2014 [facility] [place] [facility] [address] [id number] [place] [address]- 6409 Jan, [facility] [place] [facility] [address] [id number] [place] [address]- 8368 18 Jan, 2014 [facility] [place] [facility] [address] [facility] [id number] [place] [address]- 2273 15 Jan, 2014 [facility] [place] [facility] [address] [facility] [id number] [place] [address]- 3874 15 Jan, 2014 [facility] [place] [facility] [address] [id number] [place] [address]- 7731 Dec, [facility] [place] [facility] [address] [id number] [place] [address]- 8490 Dec, [facility] [place] [facility] [address] [id number] [place] [address]- 4617 Nov, [facility] [place] [facility] [address] [id number] [place] [address]- 6294 Nov, [facility] [place] [facility] [address] [id number] [place] [address]- 5261 Oct, [facility] [place] [facility] [address] [id number] [place] [address]- 7745 Oct, [facility] [place] [facility] [address] [id number] [place] [address]- 1176 Oct, [facility] [place] [facility] [address] [id number] [place] [address]- 7056 Oct, [facility] [place] [facility] [address] [id number] [place] [address]- 7707 Sep, [facility] [place] [facility] [address] [id number] [place] [address]- 4299 Sep, [facility] [place] [facility] [address] [id number] [place] [address]- 1701 Sep, [facility] [place] [facility] [address] [id number] [place] [address]- 9642 Sep, [facility] [place] [facility] [address] [id number] [place] [address]- 3746 Sep, [facility] [place] [facility] [address] [id number] [place] [address]- 1051 Sep, [facility] [place] [facility] [address] [id number] [place] [address]- 1551 Sep, [facility] [place] [facility] [address] [id number] [place] [address]- 0716 Sep, [facility] [place] [facility] [address] [id number] [place] [address]- 5584 Sep, [facility] [place] [facility] [address] [id number] [place] [address]- 5495 Sep, [facility] [place] [facility] [address] [id number] [place] [address]- 3264 Sep, [facility] [place] [facility] [address] [id number] [place] [address]- 7813 Sep, [facility] [place] [facility] [address] [id number] [place] [address]- 3246 Aug, [facility] [place] [facility] [address] [id number] [place] [address]- 6284 Aug, [facility] [place] [facility] [address] [id number] [place] [address]- 3002 Aug, [facility] [place] [facility] [address] [id number] [place] [address]- 6315 Aug, [facility] [place] [facility] [address] [id number] [place] [address]- 3648 June, [facility] [place] [facility] [address] [id number] [place] [address]- 6403 May, [facility] [place] [facility] [address] [id number] [place] [address]- 2295 May, [facility] [place] [facility] [address] [id number] [place] [address]- 5575 May, [facility] [place] [facility] [address] [id number] [place] [address]- 2697 May, [facility] [place] [facility] [address] [id number] [place] [address]- 3374 May, [facility] [place] [facility] [address] [id number] [place] [address]- 0501 17 May, 2013 [facility] [place] [facility] [address] [id number] [place] [address]- 5334 16 May, 2013 [facility] [place] [facility] [address] [id number] [place] [address]- 3232 16 May, 2013 [facility] [place] [facility] [address] [id number] [place] [address]- 7291 May, [facility] [place] [facility] [address] [id number] [place] [address]- 5642 14 May, 2013 [facility] [place] [facility] [address] [id number] [place] [address]- 6041 May, [facility] [place] [facility] [address] [id number] [place] [address]- 1006 May, [facility] [place] [facility] [address] [id number] [place] [address]- 7650 Apr, [facility] [place] [facility] [address] [id number] [place] [address]- 6130 Apr, [facility] [place] [facility] [address] [id number] [place] [address]- 0044 Mar, [facility] [place] [facility] [address] [id number] [place] [address]- 6040 Mar, [facility] [place] [facility] [address] [id number] [address]- 5651 Dec, [facility] [place] [facility] [address] [id number] [place] [address]- 5015 Dec, [facility] [place] [facility] [address] [id number] [place] [address]- 7405 Dec, [facility] [place] [facility] [address] [id number] [place] [address]- 7453 Dec, [facility] [place] [facility] [address] [id number] [place] [address]- 6080 Nov, [facility] [place] [facility] [address] [id number] [place] [address]- 1241 25 Nov, 2012 [facility] [address] [id number] [place] [address]- 6510 30 Oct, 2012 [facility] [place] [facility] [address] [id number] [place] [address]- 1729 Oct, [facility] [address] [id number] [place] [address]- 4299 Aug, [facility] [address] [id number] [place] [address]- 9864 Aug, [facility] [address] [id number] [place] [address]- 8120 Aug, [facility] [address] [id number] [place] [address]- 2546 Jul, [facility] [address] [id number] [place] [address]- 6000 June, [facility] [address] [id number] [place] [address]- 6130 June, [facility] [address] [id number] [place] [address]- 5354 Apr, [facility] [address] [id number] [place] [address]- 1656 Mar, [facility] [place] [facility] [address] [id number] [place] [address]- 6110 Mar, [facility] [address] [id number] [place] [address]- 7292 Mar, [facility] [place] [facility] [address] [id number] [place] [address]- 0948 Mar, [facility] [place] [facility] [address] [id number] [place] [address]- 5690 Mar, [facility] [place] [facility] [address] [id number] [place] [address]- 8486 Feb, [facility] [place] [facility] [address] [id number] [place] [address]- 7776 Feb, [facility] [place] [facility] [address] [id number] [place] [address]- 6866 Feb, [facility] [place] [facility] [address] [id number] [place] [address] 2546 Feb, [facility] [place] [facility] [address] [id number] [place] [address] Jan, [facility] [place] [facility] [address] [id number] [place] [address] Jan, [facility] [place] [facility] [address] [id number] [place] [address] Dec, [facility] [place] [facility] [address] [id number] [place] [address] Dec, [facility] [place] [facility] [address] [id number] [place] [address] Dec, [facility] [place] [facility] [address] [id number] [place] [address] Dec, [facility] [place] [facility] [address] [id number] [place] [address] Oct, [facility] [place] [facility] [address] [id number] [place] [address] Aug, [facility] [place] [facility] [address] [id number] [place] [address] Jul, [facility] [place] [facility] [address] [id number] [place] [address] June, [facility] [place] [facility] [address] [id number] [place] [address] June, [facility] [place] [facility] [address] [id number] [place] [address] June, [facility] [place] [facility] [address] [id number] [place] [address] June, [facility] [address] [id number] [place] [address] June, [facility] [address] [id number] [place] [address] May, [facility] [address] [id number] [place] [address] May, [facility] [address] [id number] [place] [address] Apr, [facility] [address] [id number] [place] [address] Apr, [facility] [address] [id number] [place] [address] Mar, [facility] [address] [id number] [place] [address] Feb, [facility] [address] [id number] [place] [address] Nov, [facility] [address] [id number] [place] [address] Nov, [facility] [address] [facility] [id number] [place] [address] 13 Nov, 2010 [facility] [address] [id number] [place] [address] 17 Apr, 2010 [facility] [address] [id number] [place] [address] Jan, [facility] [place] [facility] [address] [id number] [place] [address] 24 Dec, 2009 [facility] [place] [facility] [address] [id number] [place] [address] Dec, [facility] [address] [id number] [place] [address] 29 Nov, 2009 [facility] [address] [id number] [place] [address] June, [facility] [address] [id number] [place] [address] 29 Jan, 2009 [facility] [address] [id number] [place] [address] 28 Jan, 2009 [facility] [address] [id number] [place] [address] 23 Jan, 2009 [facility] [address] [id number] [place] [address] 22 Jan, 2009 [facility] [address] [id number] [place] [address] 16 Jan, 2009 [facility] [address] [facility] [id number] [place] [address] 15 Jan, 2009 [facility] [facility] [address] [id number] [place] [address] 15 Jan, 2009 [facility] [address] [facility] [id number] [address] 11 Jan, 2009 [facility] [address] [facility] [id number] [address] 11 Jan, 2009 [facility] [address] [facility] [id number] [address] 10 Jan, 2009 [facility] [address] [id number] [place] [address] 04 Jan, 2009 [facility] [address] [id number] [place] [address] 02 Jan, 2009 [facility] [address] [id number] [place] [address] 25 Dec, 2008 [facility] [address] [facility] [id number] [place] [address] Dec, [facility] [address] [id number] [place] [address] Dec, [facility] [address] [facility] [id number] [place] [address] Dec, [facility] [address] [facility] [id number] [place] [address] Nov, [facility] [address] [facility] [id number] [place] [address] 10 Oct, 2008 IMMUNIZATIONS No Known Immunizations SOCIAL HISTORY Never Assessed REASON FOR VISIT Nephrology Appointment PLAN OF CARE VITAL SIGNS MEDICATIONS Unknown [...] left knee pseudogout status post joint fluid analysis-[facility] 09/20/16
--- OUTSIDE RECORDS SUMMARY | 2017-12-06 13:47 | XMS REPORT ---
Author Author CHAPARRO MUJICA Organization [facility] Address [address] [place] [address] Care Team Providers Care Software Development Advisor Name Role Phone CHAPARRO MUJICA Unavailable PROBLEMS Type Condition ICD9-CM Code CNU64-RH Code Onset Dates Condition Status SNOMED Code Problem 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 401242739 Problem Mood disorder F39 Active 73647193 Problem Chronic kidney disease, stage 3 N18.3 Active 028605191 Problem Chronic kidney disease, stage V (very severe) N18.5 Active 174852649 Problem Essential hypertension I10 Active 79561705 Problem Pseudogout M11.20 Active 689672417 Problem Mixed hyperlipidemia E78.2 Active 643109866 Problem Primary osteoarthritis of left knee M17.12 Active [id number] Problem Gout of left knee due to renal impairment, unspecified chronicity M10.362 Active 347421514 Problem Hypertriglyceridemia E78.1 Active 000813178 Problem Gastroesophageal reflux disease, esophagitis presence not specified K21.9 Active 302951688 Problem Coronary atherosclerosis of unspecified type of vessel, [place] or graft I25.10 Active 378014306 Problem Gout, unspecified M10.9 Active 92671397 Problem detention 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 Active 893291292 Problem Insomnia, unspecified G47.00 Active 527260436 Problem Type 2 diabetes mellitus with hyperglycemia E11.65 Active [id number] ALLERGIES No Information ENCOUNTERS Encounter Location Date Diagnosis [facility] [id number] [place] [address] 21678- 9811 Oct, Chronic kidney disease, stage V (very severe) N18.5 [facility] [address] [address] 6[address] Oct, Mixed hyperlipidemia E78.2 [facility] [id number] [place] [address] 91728- 9796 Sep, Type 2 diabetes mellitus with hyperglycemia E11.65 [place] [address] 06503- 0625 Sep, Mixed hyperlipidemia E78.2 [place] [address] 73770- 6660 Sep, Chronic kidney disease, stage V (very severe) N18.5 [place] [address] 43643- 2205 Sep, Type 2 diabetes mellitus with hyperglycemia E11.65 and Essential hypertension I10 [place] [address] 68898- 3292 Sep, Type 2 diabetes mellitus with hyperglycemia E11.65 [place] [address] 39045- 1803 Aug, Gout, unspecified M10.9 ; Gastroesophageal reflux disease, esophagitis presence not specified K21.9 ; Mood disorder F39 and Coronary atherosclerosis of unspecified type of vessel, [place] or graft I25.10 [place] [address] 33463- 4467 Aug, [place] [address] 42720- 8516 June, Type 2 diabetes mellitus with hyperglycemia E11.65 [place] [address] [place] [id number] [place] [address] 05524- 5794 May, Mood disorder F39 ; Gastroesophageal reflux disease, esophagitis presence not specified K21.9 ; Gout, unspecified M10.9 ; Coronary atherosclerosis of unspecified type of vessel, [place] or graft I25.10 and Type 2 diabetes mellitus with hyperglycemia E11.65 [place] [address] 21749- 0137 May, Type 2 diabetes mellitus with hyperglycemia E11.65 [place] [address] 74438- 3352 Apr, Diabetes E11.9 and Mood disorder F39 [facility] [address] [address] 5478 15 Mar, 2017 Primary osteoarthritis of left knee M17.12 and Tear of lateral meniscus of left knee, unspecified tear type, unspecified whether old or current tear, initial encounter S83.282A [place] [address] [place] [id number] [place] [address] 77696- 1640 Feb, Mood disorder F39 [place] [address] [place] [id number] [place] [address] 81663- 0191 Feb, Pseudogout M11.20 [place] [address] [place] [id number] [place] [address] 80370- 5797 Jan, 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 [facility] [address] [place] [id number] [place] [address] 41926 -7011 Jan, [place] [address] [place] [id number] [place] [address] 91864- 9558 Jan, Pseudogout M11.20 ; Type 2 diabetes mellitus with hyperglycemia E11.65 and Other mcc (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 [place] [id number] [place] [address] 11368- 4648 Jan, Gout of left knee due to renal impairment, unspecified chronicity M10.362 ; Type 2 diabetes mellitus with diabetic nephropathy E11.21 ; Synovial cyst of popliteal space [Mejia], left knee M71.22 and Low back pain M54.5 [place] [address] [address]- 7118 Dec, Pseudogout M11.20 [place] [address] [place] [id number] [place] [address] 96634- 9960 14 Dec, 2016 [place] [id number] [place] [address] 82205- 7955 13 Dec, 2016 Type 2 diabetes mellitus with diabetic nephropathy E11.21 and Right anterior knee pain M25.561 [place] [address] [place] [id number] [place] [address] 26762- 0137 Nov, Pseudogout M11.20 [place] [address] [place] [id number] [place] [address] 94218- 9644 Nov, Pseudogout M11.20 ; Chronic kidney disease, stage 3 N18.3 ; Mixed hyperlipidemia E78.2 ; Gout, unspecified M10.9 ; Coronary atherosclerosis of unspecified type of vessel, [place] or graft I25.10 ; Mood disorder F39 and Gastroesophageal reflux disease, esophagitis presence not specified K21.9 [place] [address] 82632- 2147 Nov, [place] [address] [place] [id number] [place] [address] 75922- 6637 Oct, Pseudogout M11.20 [place] [address] 16270- 9112 Sep, Pseudogout M11.20 [place] [address] [place] [id number] [place] [address] 71525- 0077 Sep, Pseudogout M11.20 [place] [address] [place] [id number] [place] [address] 82496- 3534 Sep, [facility] [address] [id number] [place] [address] [id number] Aug, [place] [address] [place] [id number] [place] [address] 23090- 6005 Aug, Diabetes E11.9 ; Chronic kidney disease, stage 3 N18.3 ; Hyperuricemia E79.0 ; Mixed hyperlipidemia E78.2 ; Gastroesophageal reflux disease, esophagitis presence not specified K21.9 ; Gout, unspecified M10.9 ; Coronary atherosclerosis of unspecified type of vessel, [place] or graft I25.10 and Mood disorder F39 [place] [address] [place] [id number] [place] [address] 83817- 6452 June, [place] [id number] [address]- 2034 June, [facility] [address] [place] [address] [id number] [place] [address] 61570- 4267 June, [facility] [address] [address]- 2133 May, Chronic renal failure, stage 3 (moderate) N18.3 [facility] [address] [place] [id number] [place] [address] 74081- 4186 May, Diabetes E11.9 [facility] [address] [place] [id number] [place] [address] 40817- 3577 May, [facility] [address] [place] [id number] [place] [address] 08426- 3839 Apr, [facility] [address] [place] [id number] [place] [address] 15898- 2771 Apr, [facility] [address] [place] [address] [id number] [place] [address] 91654- 0535 Apr, Cellulitis of right lower extremity L03.115 and Diabetes E11.9 [facility] [id number] [place] [address] 00935- 0412 Apr, Type 2 diabetes mellitus with hyperglycemia E11.65 [place] [id number] [place] [address] 11039- 3269 Mar, Cellulitis of right lower extremity L03.115 and Low back pain M54.5 [facility] [address] [address]- 5748 Mar, [facility] [address] [place] [id number] [place] [address] 07225- 2379 Mar, Cellulitis of right lower extremity L03.115 [facility] [address] 9841 Mar, Cellulitis of right lower extremity L03.115 [place] [address] [address]- 3592 Feb, Cellulitis of right lower extremity L03.115 [place] [address] [address]- 1292 Feb, Cellulitis of right lower extremity L03.115 [place] [address], [place] [address]- 7700 Feb, [place] [id number] [place] [address] 47371- 1436 Feb, Leukocytosis, unspecified type D72.829 ; Chronic renal failure, stage 3 (moderate) N18.3 and Type 2 diabetes mellitus with hyperglycemia E11.65 [place] [address] [address]- 5854 Feb, Leukocytosis, unspecified type D72.829 [place] [address] [address]- 7426 Feb, [place] [id number] [place] [address] 05557- 4088 Feb, Cellulitis of right lower extremity L03.115 ; Thrush B37.0 ; Gout of left knee due to renal impairment, unspecified chronicity M10.362 and Chronic renal failure, stage 3 (moderate) N18.3 [place] [address] [address]- 2586 Feb, [place] [address] [address]- 8516 Feb, Right foot infection L08.9 ; Type 2 diabetes mellitus with hyperglycemia E11.65 ; Arthralgia of left knee M25.562 ; Chronic kidney disease , stage 3 N18.3 and Diabetes E11.9 [place] [address] [address]- 8074 Feb, [place] [id number] [place] [address] 68386- 8279 Feb, Diabetes E11.9 ; Arthralgia of left knee M25.562 and Thrush B37.0 [place] [address] [place] [id number] [place] [address] 64418- 5657 Jan, [place] [address] [place] [id number] [place] [address] 28856- 5348 Jan, Type 2 diabetes mellitus with hyperglycemia E11.65 ; Chronic renal failure, stage 3 (moderate) N18.3 and Leukocytosis, unspecified type D72.829 [place] [address] [place] [id number] [place] [address] 01339- 5182 Jan, Type 2 diabetes mellitus with hyperglycemia E11.65 [place] [address] [place] [id number] [place] [address] 05814- 9557 Dec, Gout of left knee due to renal impairment, unspecified chronicity M10.362 [place] [id number] [place] [address] 35651- 0905 Dec, Gout of left knee due to renal impairment, unspecified chronicity M10.362 and Diabetes E11.9 [place] [address] [place] [id number] [place] [address] 24964- 0339 Dec, [place] [address] [place] [id number] [place] [address] 20540- 5526 Dec, [facility] [place] [address] [address] [id number] [place] [address] 65604 -5821 Dec, [place] [address] [place] [id number] [place] [address] 85543- 8220 Dec, Chronic kidney disease, stage 3 N18.3 ; Type 2 diabetes mellitus with diabetic nephropathy E11.21 ; Type 2 diabetes mellitus with hyperglycemia E11.65 and 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 [facility] [place] [id number] [place] [address] 63421 -2879 Dec, Leukocytosis, unspecified type D72.829 ; Chronic renal failure, stage 3 (moderate) N18.3 and Nausea R11.0 [facility] [address] 13020- 1193 Nov, [facility] [address] 97864- 6843 Jul, [facility] [address] 93060- 2921 Jul, Diabetes E11.9 ; Low back pain M54.5 and Other chronic pain G89.29 [facility] [address] 48212- 4204 June, [facility] [address] 99457- 0911 June, [facility] [address] 75814- 7246 Jan, Viral illness B34.9 [place] [address] 97184- 4932 Jan, Type 2 diabetes mellitus with hyperglycemia E11.65 ; Pain in right foot M79.671 and Localized edema R60.0 [place] [address] 78238- 5011 Jan, [place] [address] 25677- 6013 Dec, Right foot pain M79.671 ; Insomnia, unspecified type G47.00 and Diabetes E11.9 [place] [address] 76370- 1984 16 Dec, 2014 Pain in right foot M79.671 [place] [address] 82152- 2841 Nov, [facility] [address] 79020- 3993 Sep, [place] [address] 33697- 8799 Sep, Diabetes mellitus, type II 250.00 [facility] [address] [id number] [place] [address]- 5337 14 May, 2014 [facility] [address] [facility] [id number] [place] [address]- 1334 13 May, 2014 [facility] [address] [facility] [id number] [place] [address]- 4564 19 Apr, 2014 [facility] [address] [facility] [id number] [place] [address]- 0340 19 Apr, 2014 [facility] [address] [facility] [id number] [place] [address]- 3745 16 Apr, 2014 [facility] [address] [facility] [id number] [place] [address]- 1900 16 Apr, 2014 [facility] [address] [facility] [id number] [place] [address]- 5483 12 Apr, 2014 [facility] [address] [facility] [id number] [place] [address]- 3011 12 Apr, 2014 [facility] [address] [facility] [id number] [place] [address]- 1980 05 Apr, 2014 [facility] [address] [facility] [id number] [place] [address]- 2481 05 Apr, 2014 [facility] [address] [facility] [id number] [place] [address]- 8352 18 Jan, 2014 [facility] [address] [facility] [id number] [address]- 0518 18 Jan, 2014 [facility] [address] [facility] [id number] [address]- 1510 15 Jan, 2014 [facility] [address] [facility] [id number] [place] 2850 15 Jan, 2014 [facility] [address] [facility] [id number] [address]- 3667 Dec, [facility] [place] [facility] [address] [id number] [place] [address]- 7984 Dec, [facility] [place] [facility] [address] [id number] [place] [address]- 0503 Nov, [facility] [place] [facility] [address] [id number] [place] [address]- 1361 Nov, [facility] [place] [facility] [address] [id number] [place] [address]- 5464 Oct, [facility] [place] [facility] [address] [id number] [place] [address]- 7068 Oct, [facility] [place] [facility] [address] [id number] [place] [address]- 3026 Oct, [facility] [place] [facility] [address] [id number] [place] [address]- 7756 Oct, [facility] [place] [facility] [address] [id number] [place] [address]- 9487 Sep, [facility] [place] [facility] [address] [id number] [place] [address]- 3685 Sep, [facility] [place] [facility] [address] [id number] [place] [address]- 9068 Sep, [facility] [place] [facility] [address] [id number] [place] [address]- 4947 Sep, [facility] [place] [facility] [address] [id number] [place] [address]- 6931 Sep, [facility] [place] [facility] [address] [id number] [place] [address]- 9437 Sep, [facility] [place] [facility] [address] [id number] [place] [address]- 7812 Sep, [facility] [place] [facility] [address] [id number] [place] [address]- 2717 Sep, [facility] [place] [facility] [address] [id number] [place] [address]- 9960 Sep, [facility] [place] [facility] [address] [id number] [place] [address]- 8130 Sep, [facility] [place] [facility] [address] [id number] [place] [address]- 2164 Sep, [facility] [place] [facility] [address] [id number] [place] 8828 Sep, [facility] [place] [facility] [address] [id number] [place] [address]- 5009 Aug, [facility] [place] [facility] [address] [id number] [place] [address]- 8798 Aug, [facility] [place] [facility] [address] [id number] [place] [address]- 8325 Aug, [facility] [place] [facility] [address] [id number] [place] [address]- 3299 Aug, [facility] [place] [facility] [address] [id number] [place] [address]- 9551 June, [facility] [place] [facility] [address] [id number] [place] [address]- 8747 May, [facility] [place] [facility] [address] [id number] [place] [address]- 7421 May, [facility] [place] [facility] [address] [id number] [place] [address]- 3417 May, [facility] [place] [facility] [address] [id number] [place] [address]- 6756 18 May, 2013 [facility] [place] [facility] [address] [id number] [place] [address]- 9146 May, [facility] [place] [facility] [address] [id number] [place] [address]- 3253 May, [facility] [place] [facility] [address] [id number] [place] [address]- 5036 16 May, 2013 [facility] [place] [facility] [address] [id number] [place] [address]- 0405 16 May, 2013 [facility] [address] [id number] [place] [address]- 9191 14 May, 2013 [facility] [place] [facility] [address] [id number] [place] [address]- 9369 14 May, 2013 [facility] [place] [facility] [address] [id number] [place] [address]- 1823 14 May, 2013 [facility] [place] [facility] [address] [id number] [place] [address]- 4953 14 May, 2013 [facility] [place] [facility] [address] [id number] [place] [address]- 8974 Apr, [facility] [place] [facility] [address] [id number] [place] [address]- 0406 Apr, [facility] [place] [facility] [address] [id number] [place] [address]- 4121 Mar, [facility] [place] [facility] [address] [id number] [place] [address]- 5460 Mar, [facility] [place] [facility] [address] [facility] [id number] [place] [address]- 8041 Dec, [facility] [place] [facility] [address] [id number] [place] [address]- 5300 Dec, [facility] [place] [facility] [address] [id number] [place] [address]- 2337 Dec, [facility] [place] [facility] [address] [id number] [place] [address]- 2123 Dec, [facility] [place] [facility] [address] [id number] [place] [address]- 0991 Nov, [facility] [place] [facility] [address] [id number] [place] [address]- 5908 Nov, [facility] [place] [facility] [address] [id number] [place] [address]- 7302 30 Oct, 2012 [facility] [address] [id number] [place] [address]- 9998 Oct, [facility] [place] [facility] [address] [id number] [place] [address]- 5946 Aug, [facility] [place] [facility] [address] [id number] [place] [address]- 6540 Aug, [facility] [place] [facility] [address] [id number] [place] [address]- 3733 Aug, [facility] [address] [id number] [place] [address]- 8287 Jul, [facility] [place] [facility] [address] [id number] [place] [address]- 8697 June, [facility] [place] [facility] [address] [id number] [place] [address]- 5525 June, [facility] [place] [facility] [address] [id number] [place] [address]- 9331 Apr, [facility] [place] [facility] [address] [id number] [place] [address]- 7430 Mar, [facility] [place] [facility] [address] [id number] [place] [address]- 0695 Mar, [facility] [place] [facility] [address] [id number] [place] [address]- 5186 Mar, [facility] [place] [facility] [address] [id number] [address]- 3832 Mar, [facility] [place] [facility] [address] [id number] [place] [address]- 8037 Mar, [facility] [place] [facility] [address] [id number] [place] [address]- 7846 Feb, [facility] [place] [facility] [address] [id number] [place] [address]- 9573 Feb, [facility] [place] [facility] [address] [id number] [place] [address]- 0104 Feb, [facility] [address] [id number] [place] [address] Feb, [facility] [place] [facility] [address] [id number] [place] [address] Jan, [facility] [address] [id number] [place] [address] Jan, [facility] [place] [facility] [address] [id number] [place] [address] Dec, [facility] [address] [id number] [place] [address] Dec, [facility] [address] [id number] [place] [address] Dec, [facility] [address] [id number] [place] [address] Dec, [facility] [address] [id number] [place] [address] Oct, [facility] [place] [facility] [address] [id number] [place] [address] Aug, [facility] [address] [id number] [place] [address] Jul, [facility] [address] [id number] [place] [address] June, [facility] [address] [id number] [place] [address] June, [facility] [place] [facility] [address] [id number] [place] [address] June, [facility] [place] [facility] [address] [id number] [place] [address] June, [facility] [address] [id number] [place] [address] June, [facility] [place] [facility] [address] [id number] [place] [address] May, [facility] [place] [facility] [address] [id number] [place] [address] May, [facility] [place] [facility] [address] [id number] [place] [address] Apr, [facility] [place] [facility] [address] [id number] [place] [address] Apr, [facility] [address] [id number] [place] [address] Mar, [facility] [place] [facility] [address] [id number] [place] [address] Feb, [facility] [address] [id number] [place] [address] Nov, [facility] [address] [id number] [place] [address] Nov, [facility] [address] [id number] [place] [address] Nov, [facility] [address] [id number] [place] [address] Apr, [facility] [place] [facility] [address] [id number] [place] [address] Jan, [facility] [place] [facility] [address] [id number] [address] Dec, [facility] [place] [facility] [address] [id number] [place] [address] Dec, [facility] [place] [facility] [address] [id number] [place] [address] 29 Nov, 2009 [facility] [place] [facility] [address] [id number] [place] [address] June, [facility] [place] [facility] [address] [id number], [place] [address] 29 Jan, 2009 [facility] [address] [id number] [place] [address] 28 Jan, 2009 [facility] [address] [id number], [place] [address] 23 Jan, 2009 [facility] [address] [facility] [id number] [place] [address] 22 Jan, 2009 [facility] [address] [id number], [place] [address] 16 Jan, 2009 [facility] [address] [id number] [place] [address] 15 Jan, 2009 [facility] [address] [id number], [place] [address] 15 Jan, 2009 [facility] [address] [facility] [id number] [address] 11 Jan, 2009 [facility] [address] [id number], [place] [address] 254 11 Jan, 2009 [facility] [address] [id number], [place] [address] 10 Jan, 2009 [facility] [address] [facility] [id number], [place] [address] 04 Jan, 2009 [facility] [address] [id number][place] [address] 02 Jan, 2009 [facility] [address] [id number], [place] [address] 25 Dec, 2008 [facility] [address] [id number], [place] [address] 19 Dec, 2008 [facility] [address] [id number], [place] [address] 17 Dec, 2008 [facility] [address] [facility] [id number], [place] [address] 17 Dec, 2008 [facility] [address] [facility] [id number] [place] [id number] Nov, [facility] [address] [facility] [id number], [place] [address] 10 Oct, 2008 IMMUNIZATIONS No Known Immunizations SOCIAL HISTORY Never Assessed REASON FOR VISIT Lab (walk-in) PLAN OF CARE VITAL SIGNS MEDICATIONS Unknown Medications RESULTS No Results PROCEDURES Procedure Date Ordered Result Body Site LIPID PANEL Oct 12, 2017 COMPREHEN METABOLIC PANEL Oct 12, 2017 VENIPUNCT, ROUTINE* Oct 12, 2017 INSTRUCTIONS MEDICATIONS ADMINISTERED No [...]
--- OUTSIDE RECORDS SUMMARY | 2017-12-06 13:47 | XMS REPORT ---
Author Author CHAPARRO MUJICA [facility] Address [address] [place] [address] Care Team Providers Care Encyclopedia Research Worker Name Role Phone CHAPARRO MUJICA Unavailable PROBLEMS Type Condition ICD9-CM Code GFC36-FC Code Onset Dates Condition Status SNOMED Code Problem 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 489952364 Problem Mood disorder F39 Active 31689460 Problem Chronic kidney disease, stage 3 N18.3 Active 019891100 Problem Chronic kidney disease, stage V (very severe) N18.5 Active 541709622 Problem Essential hypertension I10 Active 23671569 Problem Pseudogout M11.20 Active 484692513 Problem Mixed hyperlipidemia E78.2 Active 870452344 Problem Primary osteoarthritis of left knee M17.12 Active [id number] Problem Gout of left knee due to renal impairment, unspecified chronicity M10.362 Active 984188397 Problem Hypertriglyceridemia E78.1 Active 405910586 Problem Gastroesophageal reflux disease, esophagitis presence not specified K21.9 Active 836302146 Problem Coronary atherosclerosis of unspecified type of vessel, bridge[place] or graft I25.10 Active 039106731 Problem Gout, unspecified M10.9 Active 44979537 Problem senior living 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 Active 663717498 Problem Insomnia, unspecified G47.00 Active 268560072 Problem Type 2 diabetes mellitus with hyperglycemia E11.65 Active [id number] ALLERGIES No Information ENCOUNTERS Encounter Location Date Diagnosis [facility] [id number] [place] [address] 68804- 3379 Sep, Type 2 diabetes mellitus with hyperglycemia E11.65 [facility] [address] [address] 7330 Sep, Mixed hyperlipidemia E78.2 [facility] [address] [place] [address] 28461- 1305 Sep, Chronic kidney disease, stage V (very severe) N18.5 [facility] [address] [address]28- 0277 Sep, Type 2 diabetes mellitus with hyperglycemia E11.65 and Essential hypertension I10 [facility] [address] [place] [id number] [place] [address] 48820- 9117 Sep, Type 2 diabetes mellitus with hyperglycemia E11.65 [facility] [address] 68412- 5738 Aug, Gout, unspecified M10.9 ; Gastroesophageal reflux disease, esophagitis presence not specified K21.9 ; Mood disorder F39 and Coronary atherosclerosis of unspecified type of vessel, bridge[place] or graft I25.10 [facility] [address] 46031- 1522 Aug, [place] [address] 05801- 0372 June, Type 2 diabetes mellitus with hyperglycemia E11.65 [facility] [place] [address] [place] [id number] [place] [address] 59037- 2609 May, Mood disorder F39 ; Gastroesophageal reflux disease, esophagitis presence not specified K21.9 ; Gout, unspecified M10.9 ; Coronary atherosclerosis of unspecified type of vessel, bridge[place] or graft I25.10 and Type 2 diabetes mellitus with hyperglycemia E11.65 [facility] [place] [address] [place] [id number] [place] [address] 65815- 9174 May, Type 2 diabetes mellitus with hyperglycemia E11.65 [facility] [place] [address] [place] [id number] [place] [address] 46560- 9054 Apr, Diabetes E11.9 and Mood disorder F39 [facility] [address] [place] [id number] [place] [address] 47511- 9582 15 Mar, 2017 Primary osteoarthritis of left knee M17.12 and Tear of lateral meniscus of left knee, unspecified tear type, unspecified whether old or current tear, initial encounter S83.282A [facility] [address] [address] 2523 Feb, Mood disorder F39 [facility] [place] [address] [place] [id number] [place] [address] 15692- 4320 Feb, Pseudogout M11.20 [facility] [address] [place] [id number] [place] [address] 64736- 4172 Jan, Other assisted (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 [facility] [address] [id number] [place] [address] 40739 -7842 Jan, [facility] [address] [place] [id number] [place] [address] 35878- 2617 Jan, Pseudogout M11.20 ; Type 2 diabetes mellitus with hyperglycemia E11.65 and 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 [facility] [address] [place] [id number] [place] [address] 45494- 5562 Jan, Gout of left knee due to renal impairment, unspecified chronicity M10.362 ; Type 2 diabetes mellitus with diabetic nephropathy E11.21 ; Synovial cyst of popliteal space [Mejia], left knee M71.22 and Low back pain M54.5 [facility] [address] [place] [address] 36171- 9122 Dec, Pseudogout M11.20 [facility] [address] [place] [id number] [place] [address] 39718- 1936 14 Dec, 2016 [facility] [place] [address] [place] [id number] [place] [address] 82302- 6302 13 Dec, 2016 Type 2 diabetes mellitus with diabetic nephropathy E11.21 and Right anterior knee pain M25.561 [facility] [address] [place] [id number] [place] [address] 62115- 0450 Nov, Pseudogout M11.20 [facility] [place] [address] [place] [id number] [place] [address] 76519- 8935 Nov, Pseudogout M11.20 ; Chronic kidney disease, stage 3 N18.3 ; Mixed hyperlipidemia E78.2 ; Gout, unspecified M10.9 ; Coronary atherosclerosis of unspecified type of vessel, bridgeport or graft I25.10 ; Mood disorder F39 and Gastroesophageal reflux disease, esophagitis presence not specified K21.9 [facility] [id number] [place] [address] 75224- 2401 Nov, [facility] [address] [place] [id number] [place] [address] 80583- 9431 Oct, Pseudogout M11.20 [facility] [address] [place] [id number] [place] [address] 30955- 6155 Sep, Pseudogout M11.20 [facility] [address] [place] [id number] [place] [address] 13384- 1096 Sep, Pseudogout M11.20 [facility] [address] [place] [id number] [place] [address] 64595- 3590 Sep, [facility] [address] [id number] [place] [address] [id number] Aug, [facility] [address] [place] [id number] [place] [address] 32468- 3170 Aug, Diabetes E11.9 ; Chronic kidney disease, stage 3 N18.3 ; Hyperuricemia E79.0 ; Mixed hyperlipidemia E78.2 ; Gastroesophageal reflux disease, esophagitis presence not specified K21.9 ; Gout, unspecified M10.9 ; Coronary atherosclerosis of unspecified type of vessel, bridgeport or graft I25.10 and Mood disorder F39 [facility] [address] [place] [id number] [place] [address] 40712- 6102 June, [facility] [address] [place] [id number] [place] [address] 10066- 2978 June, [facility] [address] [place] [id number] [place] [address] 51266- 8959 June, [facility] [address] [place] [id number] [place] [address] 78372- 0916 May, Chronic renal failure, stage 3 (moderate) N18.3 [facility] [address] [place] [address] 23175- 7835 May, Diabetes E11.9 [facility] [address] [id number] [place] [address] 01507- 2773 May, [facility] [address] [place] [id number] [place] [address] 78873- 0103 Apr, [facility] [address] [place] [id number] [place] [address] 10040- 5934 Apr, [place] [address] [place] [id number] [place] [address] 57172- 9148 Apr, Cellulitis of right lower extremity L03.115 and Diabetes E11.9 [place] [address] [place] [id number] [place] [address] 42901- 6273 Apr, Type 2 diabetes mellitus with hyperglycemia E11.65 [facility] [address] [place] [id number] [place] [address] 96517- 7026 Mar, Cellulitis of right lower extremity L03.115 and Low back pain M54.5 [place] [address] [place] [address] 81400- 1247 Mar, [place] [address] [place] [address] 67819- 3494 Mar, Cellulitis of right lower extremity L03.115 [facility] [address] [place] [address] 51469- 7509 Mar, Cellulitis of right lower extremity L03.115 [place] [address] [place] [id number] [place] [address] 05713- 1427 Feb, Cellulitis of right lower extremity L03.115 [facility] [address] [address]- 9853 Feb, Cellulitis of right lower extremity L03.115 [facility] [address] [address]- 7272 Feb, [place] [address] [address]- 8019 Feb, Leukocytosis, unspecified type D72.829 ; Chronic renal failure, stage 3 (moderate) N18.3 and Type 2 diabetes mellitus with hyperglycemia E11.65 [facility] [address] [address]- 1220 Feb, Leukocytosis, unspecified type D72.829 [facility] [address] [address]- 8509 Feb, [facility] [address] [place] [address] 92856- 3583 Feb, Cellulitis of right lower extremity L03.115 ; Thrush B37.0 ; Gout of left knee due to renal impairment, unspecified chronicity M10.362 and Chronic renal failure, stage 3 (moderate) N18.3 [place] [address] [address]- 1588 Feb, [place] [address] [place] [address] 71052- 7360 Feb, Right foot infection L08.9 ; Type 2 diabetes mellitus with hyperglycemia E11.65 ; Arthralgia of left knee M25.562 ; Chronic kidney disease , stage 3 N18.3 and Diabetes E11.9 [place] [address] [address]- 0190 Feb, [place] [address] [address]- 6414 Feb, Diabetes E11.9 ; Arthralgia of left knee M25.562 and Thrush B37.0 [place] [address] [address]- 5678 Jan, [place] [address] [place] [address] 25744- 2917 Jan, Type 2 diabetes mellitus with hyperglycemia E11.65 ; Chronic renal failure, stage 3 (moderate) N18.3 and Leukocytosis, unspecified type D72.829 [facility] [address] [place] [address] 00702- 7597 Jan, Type 2 diabetes mellitus with hyperglycemia E11.65 [facility] [address] [place] [id number] [place] [address] 09976- 6945 Dec, Gout of left knee due to renal impairment, unspecified chronicity M10.362 [facility] [place] [address] [place] [id number] [place] [address] 52381- 6353 Dec, Gout of left knee due to renal impairment, unspecified chronicity M10.362 and Diabetes E11.9 [facility] [address] [place] [id number] [place] [address] 95775- 3271 Dec, [place] [address] [place] [id number] [place] [address] 57423- 9087 Dec, [facility] [address] [place] [id number] [place] [address] 53837 -5929 Dec, [place] [address] [place] [id number] [place] [address] 29428- 9572 Dec, Chronic kidney disease, stage 3 N18.3 ; Type 2 diabetes mellitus with diabetic nephropathy E11.21 ; Type 2 diabetes mellitus with hyperglycemia E11.65 and 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 [facility] [address] [place] [id number] [place] [address] 32536 -9840 05 Dec, 2015 Leukocytosis, unspecified type D72.829 ; Chronic renal failure, stage 3 (moderate) N18.3 and Nausea R11.0 [place] [address] [place] [id number] [place] [address] 89864- 2969 Nov, [facility] [address] [place] [id number] [place] [address] 11597- 8195 Jul, [place] [address] [place] [id number] [place] [address] 81420- 4453 07 Jul, 2015 Diabetes E11.9 ; Low back pain M54.5 and Other chronic pain G89.29 [facility] [address] 94512- 3661 June, [facility] [address] [place] [id number] [place] [address] 12400- 6908 June, [facility] [address] 94972- 2062 Jan, Viral illness B34.9 [place] [address] 16290- 5306 Jan, Type 2 diabetes mellitus with hyperglycemia E11.65 ; Pain in right foot M79.671 and Localized edema R60.0 [place] [address] 48479- 2007 Jan, [place] [address] 90574- 2142 Dec, Right foot pain M79.671 ; Insomnia, unspecified type G47.00 and Diabetes E11.9 [place] [address] [place] [id number] [place] [address] 50517- 3299 Dec, Pain in right foot M79.671 [place] [address] [place] [id number] [place] [address] 68305- 7375 Nov, [facility] [address] 99562- 0384 Sep, [facility] [address] [place] [id number] [place] [address] 54834- 2276 Sep, Diabetes mellitus, type II 250.00 [facility] [address] [place] [id number] [place] [address] 09103- 0929 May, [place] [address] [place] [id number] [place] [address] 06725- 8562 May, [facility] [place] [facility] [address] [id number] [place] [address]- 7150 19 Apr, 2014 [facility] [place] [facility] [address] [id number] [place] [address]- 4436 19 Apr, 2014 [facility] [place] [facility] [address] [id number] [place] [address]- 9294 16 Apr, 2014 [facility] [place] [facility] [address] [id number] [place] [address]- 3937 16 Apr, 2014 [facility] [place] [facility] [address] [id number] [place] [address]- 8568 12 Apr, 2014 [facility] [place] [facility] [address] [id number] [place] [address]- 4221 12 Apr, 2014 [facility] [place] [facility] [address] [id number] [place] [address]- 2512 05 Apr, 2014 [facility] [place] [facility] [address] [id number] [place] [address]- 6734 05 Apr, 2014 [facility] [place] [facility] [address] [id number] [place] [address]- 0839 18 Jan, 2014 [facility] [place] [facility] [address] [id number] [place] [address]- 1313 18 Jan, 2014 [facility] [place] [facility] [address] [id number] [place] [address]- 1822 15 Jan, 2014 [facility] [place] [facility] [address] [id number] [place] [address]- 0136 15 Jan, 2014 [facility] [place] [facility] [address] [id number] [place] [address]- 2899 10 Dec, 2013 [facility] [place] [facility] [address] [id number] [place] [address]- 5604 10 Dec, 2013 [facility] [place] [facility] [address] [id number] [place] [address]- 9886 13 Nov, 2013 [facility] [place] [facility] [address] [id number] [place] [address]- 2601 Nov, [facility] [place] [facility] [address] [id number] [place] [address]- 7648 Oct, [facility] [place] [facility] [address] [id number] [place] [address]- 6212 Oct, [facility] [place] [facility] [address] [id number] [place] [address]- 8007 Oct, [facility] [place] [facility] [address] [id number] [place] [address]- 0491 05 Oct, 2013 [facility] [place] [facility] [address] [id number] [place] [address]- 7216 Sep, [facility] [place] [facility] [address] [id number] [place] [address]- 3795 Sep, [facility] [place] [facility] [address] [id number] [place] [address]- 9826 Sep, [facility] [place] [facility] [address] [id number] [place] [address]- 5914 Sep, [facility] [place] [facility] [address] [id number] [place] [address]- 2860 Sep, [facility] [place] [facility] [address] [id number] [place] [address]- 2943 Sep, [facility] [place] [facility] [address] [id number] [place] [address]- 2308 Sep, [facility] [place] [facility] [address] [id number] [address]- 4218 Sep, [facility] [place] [facility] [address] [id number] [place] [address]- 4053 Sep, [facility] [place] [facility] [address] [id number] [place] [address]- 1310 Sep, [facility] [place] [facility] [address] [id number] [place] [address]- 7833 Sep, [facility] [place] [facility] [address] [id number] [place] [address]- 0413 Sep, [facility] [address] [id number] [place] [address]- 9296 Aug, [facility] [address] [id number] [place] [address]- 3191 Aug, [facility] [address] [id number] [place] [address]- 2675 Aug, [facility] [address] [id number] [place] [address]- 0422 Aug, [facility] [address] [id number] [place] [address]- 3950 June, [facility] [address] [id number] [place] [address]- 5246 May, [facility] [address] [id number] [place] [address]- 6355 May, [facility] [address] [id number] [place] [address]- 4776 May, [facility] [address] [id number] [place] [address]- 4572 18 May, 2013 [facility] [address] [id number] [place] [address]- 3730 May, [facility] [place] [facility] [address] [id number] [place] [address]- 3926 17 May, 2013 [facility] [place] [facility] [address] [id number] [place] [address]- 9553 16 May, 2013 [facility] [place] [facility] [address] [id number] [place] [address]- 3863 16 May, 2013 [facility] [place] [facility] [address] [id number] [place] [address]- 7555 May, [facility] [place] [facility] [address] [id number] [place] [address]- 0789 May, [facility] [place] [facility] [address] [id number] [place] [address]- 1487 May, [facility] [place] [facility] [address] [id number] [place] [address]- 2400 May, [facility] [place] [facility] [address] [id number] [place] [address]- 2547 Apr, [facility] [place] [facility] [address] [id number] [place] [address]- 6194 Apr, [facility] [place] [facility] [address] [id number] [place] [address]- 7842 Mar, [facility] [place] [facility] [address] [id number] [place] [address]- 3534 Mar, [facility] [place] [facility] [address] [id number] [place] [address]- 1046 Dec, [facility] [place] [facility] [address] [id number] [address]- 9434 Dec, [facility] [place] [facility] [address] [id number] [place] [address]- 3940 Dec, [facility] [place] [facility] [address] [facility] [id number] [address]- 4504 Dec, [facility] [place] [facility] [address] [id number] [place] [address]- 4582 Nov, [facility] [place] [facility] [address] [id number] [place] [address]- 2784 Nov, [facility] [place] [facility] [address] [id number] [place] [address]- 1330 30 Oct, 2012 [facility] [place] [facility] [address] [id number] [place] [address]- 8077 Oct, [facility] [place] [facility] [address] [id number] [place] [address]- 3646 Aug, [facility] [place] [facility] [address] [id number] [place] [address]- 4036 Aug, [facility] [address] [id number] [place] [address]- 3809 Aug, [facility] [place] [facility] [address] [id number] [place] [address]- 2729 Jul, [facility] [place] [facility] [address] [id number] [place] [address]- 3970 June, [facility] [place] [facility] [address] [id number] [place] [address]- 9058 June, [facility] [address] [id number] [place] [address]- 0946 Apr, [facility] [place] [facility] [address] [id number] [place] [address]- 6410 Mar, [facility] [address] [id number] [place] [address]- 3184 Mar, [facility] [place] [facility] [address] [id number] [place] [address]- 5412 Mar, [facility] [address] [id number] [place] [address]- 2583 Mar, [facility] [address] [facility] [id number] [place] [address]- 4064 Mar, [facility] [address] [id number] [place] [address]- 3229 Feb, [facility] [place] [facility] [address] [id number] [place] [address]- 6171 Feb, [facility] [place] [facility] [address] [id number] [place] [address] Feb, [facility] [place] [facility] [address] [id number] [place] [address] Feb, [facility] [place] [facility] [address] [id number] [place] [address] Jan, [facility] [place] [facility] [address] [id number] [place] [address] Jan, [facility] [address] [id number] [place] [address] Dec, [facility] [address] [id number] [place] [address] Dec, [facility] [address] [id number] [place] [address] Dec, [facility] [address] [id number] [place] [address] Dec, [facility] [address] [id number] [place] [address] Oct, [facility] [address] [id number] [place] [address] Aug, [facility] [address] [id number] [place] [address] Jul, [facility] [address] [id number] [place] [address] June, [facility] [address] [id number] [place] [address] June, [facility] [address] [id number] [place] [address] June, [facility] [address] [id number] [place] [address] June, [facility] [place] [facility] [address] [id number] [place] [address] June, [facility] [place] [facility] [address] [id number] [place] [address] May, [facility] [place] [facility] [address] [id number] [place] [address] May, [facility] [place] [facility] [address] [id number] [place] [address] 15 Apr, 2011 [facility] [place] [facility] [address] [id number] [place] [address] 13 Apr, 2011 [facility] [place] [facility] [address] [id number] [place] [address] 27 Mar, 2011 [facility] [place] [facility] [address] [id number] [place] [address] Feb, [facility] [place] [facility] [address] [id number] [place] [address] Nov, [facility] [place] [facility] [address] [id number] [place] [address] 13 Nov, 2010 [facility] [place] [facility] [address] [id number] [place] [address] 13 Nov, 2010 [facility] [place] [facility] [address] [id number] [place] [address] Apr, [facility] [place] [facility] [address] [id number] [place] [address] Jan, [facility] [place] [facility] [address] [id number] [place] [address] Dec, [facility] [place] [facility] [address] [id number] [place] [address] Dec, [facility] [place] [facility] [address] [id number] [place] [address] 29 Nov, 2009 [facility] [place] [facility] [address] [id number] [place] [address] June, [facility] [place] [facility] [address] [id number] [place] [address] [address] 29 Jan, 2009 [facility] [place] [facility] [address] [id number] [place] [address] 28 Jan, 2009 [facility] [place] [facility] [address] [id number] [place] [address] 23 Jan, 2009 [facility] [place] [facility] [address] [facility] [id number] [address] [address] 22 Jan, 2009 [facility] [address] [facility] [id number] [address] 16 Jan, 2009 [facility] [address] [facility] [id number] [place] [address] 15 Jan, 2009 [facility] [address] [facility] [id number] [place] 15 Jan, 2009 [facility] [address] [facility] [id number] [place] [address] Jan, [facility] [id number] [address] Jan, [facility] [address] [facility] [id number] [address] Jan, [facility] [id number] [address] 04 Jan, 2009 [facility] [address] [id number] [address] 02 Jan, 2009 [facility] [id number] [address] Dec, [facility] [id number] [address] Dec, [facility] [id number] [address] Dec, [facility] [address] [id number] [address] 17 Dec, 2008 [facility] [id number] [address] Nov, [facility] [address] [id number] [address] 10 Oct, 2008 IMMUNIZATIONS No Known Immunizations SOCIAL HISTORY Never Assessed REASON FOR VISIT Repository Medication Request PLAN OF CARE VITAL SIGNS MEDICATIONS Medication Instructions Dosage Frequency Start Date End Date Duration Status Seroquel 50 mg Orally Once a day 3 Tablets 24h Jan, 30 days Active Atorvastatin Calcium 10 MG Orally Once a day 1 tablet 24h 90 days Active Uloric 80 MG Orally Once a day 1 tablet 24h Aug, 90 days Active Omeprazole 40 MG Orally Once a day 1 capsule 24h 30 days Active Toprol XL 100 MG Orally Once a day 1 tablet [...]
--- OUTSIDE RECORDS SUMMARY | 2017-12-06 13:48 | XMS REPORT ---
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 Active 593091747 Problem Type 2 diabetes mellitus with hyperglycemia E11.65 Active 294108326830803 Problem Chronic kidney disease, stage 3 N18.3 Active 571283328 Problem Gout, unspecified M10.9 Active 60038012 Problem Insomnia, unspecified G47.00 Active 057593034 Problem Coronary atherosclerosis of unspecified type of vessel, [place] or graft I25.10 Active 153261019 Problem Gastroesophageal reflux disease, esophagitis presence not specified K21.9 Active 423137618 Problem Primary osteoarthritis of left knee M17.12 Active 384820085414550 Problem Gout of left knee due to renal impairment, unspecified chronicity M10.362 Active 039000653 Problem Mixed hyperlipidemia E78.2 Active 506165669 Problem 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 377873494 Problem Pseudogout M11.20 Active 214084412 Problem Mood disorder F39 Active 55292474 ALLERGIES Substance Reaction Event Type Date Status Acetaminophen-Codeine #3 Failed Ameritox UDS- THC Drug Allergy May, Active ENCOUNTERS Encounter Location Date Diagnosis [facility] [address] [facility] [id number] [address] Sep, [place] [address] [id number] [address] Aug, Gout, unspecified M10.9 ; Gastroesophageal reflux disease, esophagitis presence not specified K21.9 ; Mood disorder F39 and Coronary atherosclerosis of unspecified type of vessel, [place] or graft I25.10 [facility] [id number] [place] [address] 16279- 2711 Aug, [place] [id number] [place] [address] 98749- 5606 June, Type 2 diabetes mellitus with hyperglycemia E11.65 [place] [id number] [place] [address] 65295- 3541 May, Mood disorder F39 ; Gastroesophageal reflux disease, esophagitis presence not specified K21.9 ; Gout, unspecified M10.9 ; Coronary atherosclerosis of unspecified type of vessel, [place] or graft I25.10 and Type 2 diabetes mellitus with hyperglycemia E11.65 [place] [address] [address]- 1141 May, Type 2 diabetes mellitus with hyperglycemia E11.65 [place] [id number] [place] [address] 72015- 2416 Apr, Diabetes E11.9 and Mood disorder F39 [place] [id number] [place] [address] 38016- 5407 Mar, Primary osteoarthritis of left knee M17.12 and Tear of lateral meniscus of left knee, unspecified tear type, unspecified whether old or current tear, initial encounter S83.282A [place] [id number] [place] [address] 06282- 8339 Feb, Mood disorder F39 [place] [id number] [place] [address] 04675- 2848 Feb, Pseudogout M11.20 [place] [id number] [place] [address] 24186- 7320 Jan, Other retirement (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 [place] [id number] [place] [address] 35769- 2691 18 Jan, 2017 Gout of left knee due to renal impairment, unspecified chronicity M10.362 ; Type 2 diabetes mellitus with diabetic nephropathy E11.21 ; Synovial cyst of popliteal space [Mejia], left knee M71.22 and Low back pain M54.5 [place] [id number] [place] [address] 66942- 3264 Dec, Pseudogout M11.20 [place] [address] 39014- 4624 14 Dec, 2016 [place] [address] 14329- 7186 Dec, Type 2 diabetes mellitus with diabetic nephropathy E11.21 and Right anterior knee pain M25.561 [place] [address] 83704- 7445 Nov, Pseudogout M11.20 [place] [id number] [place] [address] 53665- 3976 Nov, Pseudogout M11.20 ; Chronic kidney disease, stage 3 N18.3 ; Mixed hyperlipidemia E78.2 ; Gout, unspecified M10.9 ; Coronary atherosclerosis of unspecified type of vessel, [place] or graft I25.10 ; Mood disorder F39 and Gastroesophageal reflux disease, esophagitis presence not specified K21.9 [place] [id number] [place] [address] 51807- 4880 Nov, [place] [id number] [place] [address] 55149- 8458 Oct, Pseudogout M11.20 [place] [id number] [place] [address] 83524- 1703 Sep, Pseudogout M11.20 [place] [address] 86839- 1596 Sep, Pseudogout M11.20 [facility] [id number] [place] [address] 23423- 7148 Sep, [facility] [id number] [place] [address] [id number] Aug, [facility] [id number] [place] [address] 08118- 5187 Aug, Diabetes E11.9 ; Chronic kidney disease, stage 3 N18.3 ; Hyperuricemia E79.0 ; Mixed hyperlipidemia E78.2 ; Gastroesophageal reflux disease, esophagitis presence not specified K21.9 ; Gout, unspecified M10.9 ; Coronary atherosclerosis of unspecified type of vessel, [place] or graft I25.10 and Mood disorder F39 [place] [id number] [place] [address] 61765- 4079 June, [facility] [id number] [place] [address] 30300- 0916 June, [facility] [id number] [place] [address] 75596- 5994 June, [facility] [id number] [place] [address] 72996- 1670 May, Chronic renal failure, stage 3 (moderate) N18.3 [facility] [id number] [place] [address] 55360- 0553 May, Diabetes E11.9 [facility] [id number] [place] [address] 99465- 6015 May, [facility] [id number] [place] [address] 85554- 1771 Apr, [place] [id number] [place] [address] 237493- 6619 Apr, [facility] [id number] [place] [address] 69902356- 3908 Apr, Cellulitis of right lower extremity L03.115 and Diabetes E11.9 [place] [id number] [place] [address] 13757- 8207 Apr, Type 2 diabetes mellitus with hyperglycemia E11.65 [place] [id number] [place] [address] 47175- 8065 Mar, Cellulitis of right lower extremity L03.115 and Low back pain M54.5 [place] [id number] [place] [address] 91809- 5856 Mar, [place] [id number] [place] [address] 73878- 9042 Mar, Cellulitis of right lower extremity L03.115 [place] [id number] [place] [address] 92083- 0236 Mar, Cellulitis of right lower extremity L03.115 [place] [id number] [place] [address] 42111- 5483 Feb, Cellulitis of right lower extremity L03.115 [place] [id number] [place] [address] 18386- 2753 Feb, Cellulitis of right lower extremity L03.115 [place] [address] [place] [address] 05006- 2099 Feb, [place] [address] [place] [address] 20946- 6279 Feb, Leukocytosis, unspecified type D72.829 ; Chronic renal failure, stage 3 (moderate) N18.3 and Type 2 diabetes mellitus with hyperglycemia E11.65 [place] [address] [place] [address] 19987- 6739 Feb, Leukocytosis, unspecified type D72.829 [place] [address] [place] [address] 52339- 1372 Feb, [place] [id number] [place] [address] 55989- 0309 Feb, Cellulitis of right lower extremity L03.115 ; Thrush B37.0 ; Gout of left knee due to renal impairment, unspecified chronicity M10.362 and Chronic renal failure, stage 3 (moderate) N18.3 [place] [address] [address]- 4585 Feb, [place] [id number] [place] [address] 31852- 6156 Feb, Right foot infection L08.9 ; Type 2 diabetes mellitus with hyperglycemia E11.65 ; Arthralgia of left knee M25.562 ; Chronic kidney disease , stage 3 N18.3 and Diabetes E11.9 [place] [id number] [place] [address] 62711- 0024 Feb, [place] [id number] [place] [address] 90259- 4478 Feb, Diabetes E11.9 ; Arthralgia of left knee M25.562 and Thrush B37.0 [place] [id number] [place] [address] 85519- 3279 Jan, [place] [id number] [place] [address] 24065- 9381 Jan, Type 2 diabetes mellitus with hyperglycemia E11.65 ; Chronic renal failure, stage 3 (moderate) N18.3 and Leukocytosis, unspecified type D72.829 [place] [address] [place] [address] 10591- 7556 Jan, Type 2 diabetes mellitus with hyperglycemia E11.65 [place] [address] [place] [address] 16960- 5120 Dec, Gout of left knee due to renal impairment, unspecified chronicity M10.362 [place] [address] [place] [address] 60062- 5872 Dec, Gout of left knee due to renal impairment, unspecified chronicity M10.362 and Diabetes E11.9 [place] [address] [place] [address] 03088- 9265 14 Dec, 2015 [facility] [id number] [place] [address] 33920- 6989 Dec, [facility] [id number] [place] [address] 70880 -3931 Dec, [place] [address] 76295- 5487 Dec, Chronic kidney disease, stage 3 N18.3 ; Type 2 diabetes mellitus with diabetic nephropathy E11.21 ; Type 2 diabetes mellitus with hyperglycemia E11.65 and penitentiary 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 [facility] [id number] [place] [address] 04420 -4470 05 Dec, 2015 Leukocytosis, unspecified type D72.829 ; Chronic renal failure, stage 3 (moderate) N18.3 and Nausea R11.0 [place] [id number] [place] [address] 92205- 0020 Nov, [place] [id number] [place] [address] 77766- 3008 Jul, [place] [id number] [place] [address] 12384- 6941 Jul, Diabetes E11.9 ; Low back pain M54.5 and Other chronic pain G89.29 [place] [id number] [place] [address] 28192- 0022 June, [place] [id number] [place] [address] 99743- 6642 June, [place] [id number] [place] [address] 09483- 7374 Jan, Viral illness B34.9 [place] [id number] [place] [address] 98175- 6287 08 Jan, 2015 Type 2 diabetes mellitus with hyperglycemia E11.65 ; Pain in right foot M79.671 and Localized edema R60.0 [facility] [id number] [place] [address] 67062- 9191 Jan, [facility] [id number] [place] [address] 21576- 9591 Dec, Right foot pain M79.671 ; Insomnia, unspecified type G47.00 and Diabetes E11.9 [facility] [address] 50266- 5744 Dec, Pain in right foot M79.671 [facility] [id number] [place] [address] 84856- 7491 Nov, [facility] [id number] [place] [address] 76943- 0750 Sep, [facility] [id number] [place] [address] 60381- 0350 Sep, Diabetes mellitus, type II 250.00 [facility] [id number] [place] [address] 49923- 4773 May, [facility] [id number] [place] [address] 43760- 7017 May, [facility] [id number] [place] [address] 60345- 0012 Apr, [facility] [id number] [place] [address] 89561- 3956 Apr, [facility] [id number] [place] [address] 26456- 9043 Apr, [facility] [id number] [place] [address] 90228- 2101 Apr, [facility] [id number] [place] [address] 62283- 1864 Apr, [facility] [id number] [place] [address] 87052- 9268 Apr, [facility] [place] [facility] [address] [id number] [place] [address]- 3002 05 Apr, 2014 [facility] [place] [facility] [address] [id number] [place] [address]- 1696 05 Apr, 2014 [facility] [place] [facility] [address] [id number] [place] [address]- 1897 18 Jan, 2014 [facility] [place] [facility] [address] [id number] [place] 0855 18 Jan, 2014 [facility] [place] [facility] [address] [id number] [place] [address]- 2705 Jan, [facility] [place] [facility] [address] [id number] [place] [address]- 4410 Jan, [facility] [place] [facility] [address] [id number] [place] [address]- 0146 Dec, [facility] [place] [facility] [address] [id number] [place] [address]- 1856 Dec, [facility] [place] [facility] [address] [id number] [place] [address]- 9526 Nov, [facility] [place] [facility] [address] [id number] [place] [address]- 9227 Nov, [facility] [place] [facility] [address] [id number] [place] [address]- 6357 Oct, [facility] [place] [facility] [address] [id number] [place] [address]- 2707 Oct, [facility] [place] [facility] [address] [id number] [place] [address]- 2349 Oct, [facility] [place] [facility] [address] [id number] [place] [address]- 6076 Oct, [facility] [place] [facility] [address] [id number] [place] 6731 Sep, [facility] [place] [facility] [address] [id number] [place] [address]- 7128 Sep, [facility] [place] [facility] [address] [id number] [place] [address]- 8516 Sep, [facility] [place] [facility] [address] [id number] [place] [address]- 0321 Sep, [facility] [place] [facility] [address] [id number] [place] [address]- 7877 Sep, [facility] [place] [facility] [address] [id number] [place] [address]- 8331 Sep, [facility] [place] [facility] [address] [id number] [place] [address]- 4665 Sep, [facility] [place] [facility] [address] [id number] [place] [address]- 2370 Sep, [facility] [place] [facility] [address] [id number] [place] [address]- 7375 Sep, [facility] [place] [facility] [address] [id number] [place] [address]- 6310 Sep, [facility] [place] [facility] [address] [id number] [place] [address]- 1780 Sep, [facility] [place] [facility] [address] [id number] [place] [address]- 9417 Sep, [facility] [place] [facility] [address] [id number] [place] [address]- 0282 Aug, [facility] [place] [facility] [address] [id number] [place] [address]- 9024 Aug, [facility] [place] [facility] [address] [id number] [place] [address]- 2927 Aug, [facility] [place] [facility] [address] [id number] [place] [address]- 3087 Aug, [facility] [place] [facility] [address] [id number] [place] [address]- 2234 June, [facility] [place] [facility] [address] [id number] [place] [address]- 2101 24 May, 2013 [facility] [place] [facility] [address] [id number] [place] [address]- 4341 24 May, 2013 [facility] [place] [facility] [address] [id number] [place] [address]- 1163 21 May, 2013 [facility] [place] [facility] [address] [id number] [place] [address]- 1586 18 May, 2013 [facility] [place] [facility] [address] [id number] [place] [address]- 8737 17 May, 2013 [facility] [place] [facility] [address] [id number] [place] [address]- 9020 17 May, 2013 [facility] [place] [facility] [address] [id number] [place] [address]- 7684 16 May, 2013 [facility] [place] [facility] [address] [id number] [place] [address]- 9256 16 May, 2013 [facility] [place] [facility] [address] [id number] [place] [address]- 0642 14 May, 2013 [facility] [place] [facility] [address] [id number] [place] [address]- 4987 14 May, 2013 [facility] [place] [facility] [address] [id number] [place] [address]- 8084 14 May, 2013 [facility] [place] [facility] [address] [id number] [place] [address]- 0862 14 May, 2013 [facility] [place] [facility] [address] [id number] [place] [address]- 3610 Apr, [facility] [place] [facility] [address] [id number] [place] [address]- 5559 Apr, [facility] [place] [facility] [address] [id number] [place] [address]- 4728 Mar, [facility] [place] [facility] [address] [id number] [place] [address]- 2092 Mar, [facility] [place] [facility] [address] [id number] [place] [address]- 0819 Dec, [facility] [place] [facility] [address] [id number] [place] [address]- 4004 Dec, [facility] [place] [facility] [address] [id number] [place] [address]- 4568 Dec, [facility] [place] [facility] [address] [id number] [place] [address]- 0322 Dec, [facility] [place] [facility] [address] [id number] [place] [address]- 2798 Nov, [facility] [place] [facility] [address] [id number] [place] [address]- 0725 Nov, [facility] [place] [facility] [address] [id number] [place] [address]- 5006 Oct, [facility] [place] [facility] [address] [id number] [place] [address]- 5581 Oct, [facility] [place] [facility] [address] [id number] [place] [address]- 0089 Aug, [facility] [place] [facility] [address] [id number] [place] [address]- 9563 Aug, [facility] [place] [facility] [address] [id number] [place] [address]- 1605 Aug, [facility] [place] [facility] [address] [id number], [place] [address]- 6624 Jul, [facility] [place] [facility] [address] [id number] [place] [address]- 9192 June, [facility] [place] [facility] [address] [id number] [place] [address]- 7986 June, [facility] [place] [facility] [address] [id number] [place] [address]- 8656 Apr, [facility] [place] [facility] [address] [id number], [place] [address]- 5877 Mar, [facility] [address] [id number] [place] [address]- 9156 Mar, [facility] [address] [id number] [place] [address]- 3916 Mar, [facility] [address] [id number] [place] [address]- 8026 Mar, [facility] [place] [facility] [address] [id number] [place] [address]- 4426 Mar, [facility] [address] [id number] [place] [address]- 4009 Feb, [facility] [address] [id number] [place] [address]- 4889 Feb, [facility] [address] [id number] [place] [address]- 2591 Feb, [facility] [address] [id number] [place] [address]- 9405 Feb, [facility] [address] [id number] [place] [address]- 0162 Jan, [facility] [address] [id number] [place] [address]- 3450 Jan, [facility] [address] [id number] [place] [address]- 0141 Dec, [facility] [place] [facility] [address] [id number] [place] [address]- 2421 Dec, [facility] [place] [facility] [address] [id number] [place] [address]- 0212 Dec, [facility] [place] [facility] [address] [id number] [place] [address] Dec, [facility] [address] [id number] [address] Oct, [facility] [place] [facility] [address] [id number] [place] [address] Aug, [facility] [address] [id number] [place] [address] Jul, [facility] [place] [facility] [address] [id number] [place] [address] June, [facility] [address] [id number] [place] [address] June, [facility] [address] [id number] [place] [address] June, [facility] [address] [id number] [place] [address] June, [facility] [address] [id number] [place] [address] June, [facility] [address] [id number] [place] [address] May, [facility] [address] [id number] [place] [address] May, [facility] [address] [id number] [place] [address] Apr, [facility] [place] [facility] [address] [id number] [place] [address] Apr, [facility] [address] [id number] [place] [address] Mar, [facility] [place] [facility] [address] [id number] [place] [address] Feb, [facility] [place] [facility] [address] [id number] [place] [address] Nov, [facility] [place] [facility] [address] [id number] [place] [address] Nov, [facility] [place] [facility] [address] [id number] [place] [address] 13 Nov, 2010 [facility] [place] [facility] [address] [id number] [place] [address] 17 Apr, 2010 [facility] [place] [facility] [address] [id number] [place] [address] 07 Jan, 2010 [facility] [place] [facility] [address] [id number] [place] [address] 24 Dec, 2009 [facility] [place] [facility] [address] [id number] [place] [address] Dec, [facility] [place] [facility] [address] [id number] [place] [address] 29 Nov, 2009 [facility] [place] [facility] [address] [id number] [place] [address] June, [facility] [place] [facility] [address] [id number] [place] [address] 29 Jan, 2009 [facility] [place] [facility] [address] [id number] [place] [address] 28 Jan, 2009 [facility] [place] [facility] [address] [id number] [place] [address] 23 Jan, 2009 [facility] [place] [facility] [address] [id number] [place] [address] 22 Jan, 2009 [facility] [place] [facility] [address] [id number], [place] [address] 16 Jan, 2009 [facility] [place] [facility] [address] [id number] [place] [address] 15 Jan, 2009 [facility] [place] [facility] [address] [id number] [place] [address] 15 Jan, 2009 [facility] [place] [facility] [address] [id number] [place] [address] 11 Jan, 2009 [facility] [place] [facility] [address] [id number] [place] [address] 11 Jan, 2009 [facility] [place] [facility] [address] [id number], [place] [address] Jan, [facility] [id number], [place] [address] Jan, [facility] [id number], [place] [address] Jan, [facility] [facility] [id number] [address] Dec, [facility] [id number] [address] Dec, [facility] [id number] [place] [id number] Dec, [facility] [id number] [address] Dec, [facility] [id number] [address] Nov, [facility] [id number], [place] [address] Oct, IMMUNIZATIONS No Known Immunizations SOCIAL HISTORY Never Assessed REASON FOR VISIT Diabetes PLAN OF CARE Activity Details Follow Up 3 Months Reason:DM VITAL SIGNS Height 73 in 2017-06-08 Weight 290 lbs 2017-06-08 Temperature 98.1 degrees Fahrenheit 2017-06-08 Heart Rate 92 bpm 2017-06-08 Respiratory Rate 20 2017-06-08 BMI 38.26 kg/m2 2017-06-08 Blood pressure systolic 146 mmHg 2017-06-08 Blood pressure diastolic 96 mmHg 2017-06-08 MEDICATIONS Medication Instructions Dosage Frequency Start Date End Date Duration Status Levemir FlexTouch 100 UNIT/ML Subcutaneous 2 times a day Inject 35 units 12h Jan, 53 days Active Plavix 75 MG Orally Once a day 1 tablet 24h 90 days Active Omeprazole 40 MG Orally Once a day 1 capsule 24h 90 days Active Trulicity 0.75 MG/0.5ML Inject 0.5 ml Jan, 160 days Active Insulin Syringe 31G X 5/16 as directed Jan, Active Glucometer as directed Dec, Active Aspir-81 81 MG Orally Once a day 1 tablet 24h Active Seroquel 50 MG Orally Once a day 3 Tablets 24h Jan, 30 days Active Toprol XL 100 MG Orally Once a day 1 tablet 24h 90 days Active NovoLog 100 UNIT/ML Subcutaneous 3 times a day Inject 30 units with meals 8h Dec, Active Uloric 80 MG Orally Once a day 1 tablet 24h 19 Aug, 2016 90 days Active Atorvastatin Calcium 10 MG Orally Once a day 1 tablet 24h 90 days Active RESULTS Name Result Date Reference Range A1C (IN HOUSE) 2017-06-08 A1C IN HOUSE 10.1 4.3 - 5.6 % Previous A1c 8.7 Lot [id number] Exp date 03/2019 PROCEDURES Procedure Date Ordered Result Body Site GLYCATED HEMOGLOBIN TEST June 08, 2017 INSTRUCTIONS MEDICATIONS ADMINISTERED No Known Medications [...]
--- OUTSIDE RECORDS SUMMARY | 2017-12-06 13:48 | XMS REPORT ---
Author Author CHAPARRO MUJICA [facility] Address [address] [place] [address] Care Team Providers [place] Stocker Name Role Phone CHAPARRO MUJICA Unavailable PROBLEMS Type Condition ICD9-CM Code XAU93-QY Code Onset Dates Condition Status SNOMED Code Problem 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 890971418 Problem Mood disorder F39 Active 03469187 Problem Chronic kidney disease, stage 3 N18.3 Active 296744090 Problem Chronic kidney disease, stage V (very severe) N18.5 Active 970920551 Problem Essential hypertension I10 Active 74054108 Problem Pseudogout M11.20 Active 355623977 Problem Mixed hyperlipidemia E78.2 Active 426124942 Problem Primary osteoarthritis of left knee M17.12 Active [id number] Problem Gout of left knee due to renal impairment, unspecified chronicity M10.362 Active 131521564 Problem Hypertriglyceridemia E78.1 Active 589934136 Problem Gastroesophageal reflux disease, esophagitis presence not specified K21.9 Active 116720135 Problem Coronary atherosclerosis of unspecified type of vessel, pyramid [place] or graft I25.10 Active 824454129 Problem Gout, unspecified M10.9 Active 39790607 Problem FCI 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 Active 267905094 Problem Insomnia, unspecified G47.00 Active 970721271 Problem Type 2 diabetes mellitus with hyperglycemia E11.65 Active [id number] ALLERGIES No Information ENCOUNTERS Encounter Location Date Diagnosis [facility] [id number] [place] [address] 10780- 2572 Sep, Type 2 diabetes mellitus with hyperglycemia E11.65 [facility] [address], [place] [address] 2775 Sep, Mixed hyperlipidemia E78.2 [facility] [id number] [place] [address] 96718- 5651 Sep, Chronic kidney disease, stage V (very severe) N18.5 [place] [address] 57467- 2700 Sep, Type 2 diabetes mellitus with hyperglycemia E11.65 and Essential hypertension I10 [place] [address] [id number] [place] [address] 34368- 4018 Sep, Type 2 diabetes mellitus with hyperglycemia E11.65 [place] [address] 69756- 4075 Aug, Gout, unspecified M10.9 ; Gastroesophageal reflux disease, esophagitis presence not specified K21.9 ; Mood disorder F39 and Coronary atherosclerosis of unspecified type of vessel, [place] or graft I25.10 [place] [address] 76271- 0098 Aug, [place] [address] 38570- 8785 June, Type 2 diabetes mellitus with hyperglycemia E11.65 [place] [id number] [place] [address] 34853- 2142 May, Mood disorder F39 ; Gastroesophageal reflux disease, esophagitis presence not specified K21.9 ; Gout, unspecified M10.9 ; Coronary atherosclerosis of unspecified type of vessel, [place] or graft I25.10 and Type 2 diabetes mellitus with hyperglycemia E11.65 [place] [id number] [place] [address] 94918- 1507 May, Type 2 diabetes mellitus with hyperglycemia E11.65 [place] [address] [id number] [place] [address] 91611- 5743 Apr, Diabetes E11.9 and Mood disorder F39 [place] [id number] [place] [address] 46374- 4181 15 Mar, 2017 Primary osteoarthritis of left knee M17.12 and Tear of lateral meniscus of left knee, unspecified tear type, unspecified whether old or current tear, initial encounter S83.282A [facility] [address], [place] [address] 8329 Feb, Mood disorder F39 [place] [id number] [place] [address] 89685- 9368 Feb, Pseudogout M11.20 [place] [id number] [place] [address] 56850- 6768 Jan, Other care home (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 [facility] [id number] [place] [address] 97400 -9174 Jan, [place] [address] [id number] [place] [address] 36841- 3079 Jan, Pseudogout M11.20 ; Type 2 diabetes mellitus with hyperglycemia E11.65 and 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 [place] [address] [id number] [place] [address] 15688- 5706 Jan, Gout of left knee due to renal impairment, unspecified chronicity M10.362 ; Type 2 diabetes mellitus with diabetic nephropathy E11.21 ; Synovial cyst of popliteal space [Mejia], left knee M71.22 and Low back pain M54.5 [place] [address] [place] [address] 31698- 4448 Dec, Pseudogout M11.20 [place] [id number] [place] [address] 38265- 9446 14 Dec, 2016 [place] [id number] [place] [address] 31222- 9942 13 Dec, 2016 Type 2 diabetes mellitus with diabetic nephropathy E11.21 and Right anterior knee pain M25.561 [place] [address] [id number] [place] [address] 29593- 9225 Nov, Pseudogout M11.20 [place] [address] [address] [id number] [place] [address] 81008- 1449 Nov, Pseudogout M11.20 ; Chronic kidney disease, stage 3 N18.3 ; Mixed hyperlipidemia E78.2 ; Gout, unspecified M10.9 ; Coronary atherosclerosis of unspecified type of vessel, pyramid [place] or graft I25.10 ; Mood disorder F39 and Gastroesophageal reflux disease, esophagitis presence not specified K21.9 [facility] [id number] [place] [address] 60666- 8193 Nov, [facility] [id number] [place] [address] 93098- 7516 Oct, Pseudogout M11.20 [place] [id number] [place] [address] 29459- 4722 Sep, Pseudogout M11.20 [place] [id number] [place] [address] 73662- 7540 Sep, Pseudogout M11.20 [place] [id number] [place] [address] 37547- 8066 Sep, [facility] [id number] [place] [address] [id number] Aug, [place] [id number] [place] [address] 01568- 4431 Aug, Diabetes E11.9 ; Chronic kidney disease, stage 3 N18.3 ; Hyperuricemia E79.0 ; Mixed hyperlipidemia E78.2 ; Gastroesophageal reflux disease, esophagitis presence not specified K21.9 ; Gout, unspecified M10.9 ; Coronary atherosclerosis of unspecified type of vessel, pyramid [place] or graft I25.10 and Mood disorder F39 [facility] [id number] [place] [address] 68445- 5802 June, [facility] [id number] [place] [address] 73497- 3460 June, [facility] [id number] [place] [address] 19319- 8013 June, [facility] [id number] [place] [address] 84289- 5228 May, Chronic renal failure, stage 3 (moderate) N18.3 [facility] [address] [place] [address] 50434- 0605 May, Diabetes E11.9 [facility] [id number] [place] [address] 72945- 7555 May, [facility] [id number] [place] [address] 39187- 7425 Apr, [facility] [id number] [place] [address] 34583- 4326 Apr, [place] [id number] [place] [address] 44050- 0349 Apr, Cellulitis of right lower extremity L03.115 and Diabetes E11.9 [place] [id number] [place] [address] 32915- 0412 Apr, Type 2 diabetes mellitus with hyperglycemia E11.65 [place] [address] [id number] [place] [address] 82618- 9928 Mar, Cellulitis of right lower extremity L03.115 and Low back pain M54.5 [place] [address] [place] [address] 23781- 3094 Mar, [place] [address] [place] [address] 93575- 0207 Mar, Cellulitis of right lower extremity L03.115 [facility] [address] [place] [address] 49755- 5360 Mar, Cellulitis of right lower extremity L03.115 [place] [id number] [place] [address] 15870- 3018 Feb, Cellulitis of right lower extremity L03.115 [place] [address], [place] [address]- 0729 Feb, Cellulitis of right lower extremity L03.115 [place] [address], [place] [address]- 4560 Feb, [place] [address], [place] [address]- 8180 Feb, Leukocytosis, unspecified type D72.829 ; Chronic renal failure, stage 3 (moderate) N18.3 and Type 2 diabetes mellitus with hyperglycemia E11.65 [place] [address], [place] [address]- 7629 Feb, Leukocytosis, unspecified type D72.829 [place] [address], [place] [address]- 1185 Feb, [place] [address] [place] [address] 47708- 4542 Feb, Cellulitis of right lower extremity L03.115 ; Thrush B37.0 ; Gout of left knee due to renal impairment, unspecified chronicity M10.362 and Chronic renal failure, stage 3 (moderate) N18.3 [place] [address], [place] [address]- 3120 Feb, [place] [address] [place] [address] 44402- 7915 Feb, Right foot infection L08.9 ; Type 2 diabetes mellitus with hyperglycemia E11.65 ; Arthralgia of left knee M25.562 ; Chronic kidney disease , stage 3 N18.3 and Diabetes E11.9 [place] [address], [place] [address]- 2624 Feb, [place] [address] [address]- 4695 Feb, Diabetes E11.9 ; Arthralgia of left knee M25.562 and Thrush B37.0 [place] [address], [place] [address]- 0065 Jan, [place] [address] [place] [address] 87059- 2641 Jan, Type 2 diabetes mellitus with hyperglycemia E11.65 ; Chronic renal failure, stage 3 (moderate) N18.3 and Leukocytosis, unspecified type D72.829 [place] [address] [place] [address] 93190- 3671 Jan, Type 2 diabetes mellitus with hyperglycemia E11.65 [place] [id number] [place] [address] 49551- 0027 Dec, Gout of left knee due to renal impairment, unspecified chronicity M10.362 [place] [id number] [place] [address] 75724- 2603 Dec, Gout of left knee due to renal impairment, unspecified chronicity M10.362 and Diabetes E11.9 [place] [id number] [place] [address] 96602- 3788 Dec, [place] [id number] [place] [address] 65695- 6332 Dec, [facility] [id number] [place] [address] 44048 -2036 Dec, [place] [id number] [place] [address] 14298- 4140 Dec, Chronic kidney disease, stage 3 N18.3 ; Type 2 diabetes mellitus with diabetic nephropathy E11.21 ; Type 2 diabetes mellitus with hyperglycemia E11.65 and 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 [facility] [id number] [place] [address] 84843 -1993 05 Dec, 2015 Leukocytosis, unspecified type D72.829 ; Chronic renal failure, stage 3 (moderate) N18.3 and Nausea R11.0 [place] [id number] [place] [address] 75073- 2973 Nov, [facility] [id number] [place] [address] 11271- 3343 Jul, [place] [address] [place] [address] [place] [address] 76040- 4049 07 Jul, 2015 Diabetes E11.9 ; Low back pain M54.5 and Other chronic pain G89.29 [facility] [address] 47418- 4185 June, [facility] [id number] [place] [address] 61780- 3296 June, [facility] [address] 63308- 1370 Jan, Viral illness B34.9 [place] [address] 43889- 1553 Jan, Type 2 diabetes mellitus with hyperglycemia E11.65 ; Pain in right foot M79.671 and Localized edema R60.0 [place] [address] 04760- 0396 Jan, [place] [address] 55705- 9449 Dec, Right foot pain M79.671 ; Insomnia, unspecified type G47.00 and Diabetes E11.9 [place] [address] [id number] [place] [address] 24559- 3869 Dec, Pain in right foot M79.671 [place] [address] [id number] [place] [address] 12091- 4123 Nov, [facility] [address] 85286- 4555 Sep, [facility] [id number] [place] [address] 47969- 2174 Sep, Diabetes mellitus, type II 250.00 [facility] [id number] [place] [address] 32975- 6293 May, [place] [id number] [place] [address] 76896- 2709 May, [facility] [place] [facility] [address] [id number] [place] [address]- 2177 19 Apr, 2014 [facility] [place] [facility] [address] [id number] [place] [address]- 4528 19 Apr, 2014 [facility] [place] [facility] [address] [id number] [place] [address]- 8749 16 Apr, 2014 [facility] [place] [facility] [address] [id number] [place] [address]- 9366 16 Apr, 2014 [facility] [place] [facility] [address] [id number] [place] [address]- 9688 12 Apr, 2014 [facility] [place] [facility] [address] [id number] [place] [address]- 8978 12 Apr, 2014 [facility] [place] [facility] [address] [id number] [place] [address]- 5946 05 Apr, 2014 [facility] [place] [facility] [address] [id number] [place] [address]- 2180 05 Apr, 2014 [facility] [place] [facility] [address] [id number] [place] [address]- 0738 18 Jan, 2014 [facility] [place] [facility] [address] [id number] [place] [address]- 1920 18 Jan, 2014 [facility] [place] [facility] [address] [id number] [place] [address]- 3309 15 Jan, 2014 [facility] [place] [facility] [address] [id number] [place] [address]- 0215 15 Jan, 2014 [facility] [place] [facility] [address] [id number] [place] [address]- 3689 10 Dec, 2013 [facility] [place] [facility] [address] [id number] [place] [address]- 9315 10 Dec, 2013 [facility] [place] [facility] [address] [id number] [place] [address]- 8530 13 Nov, 2013 [facility] [place] [facility] [address] [id number] [place] [address]- 1075 Nov, [facility] [place] [facility] [address] [id number] [place] [address]- 1542 Oct, [facility] [place] [facility] [address] [id number] [place] [address]- 2718 Oct, [facility] [place] [facility] [address] [id number] [place] [address]- 1962 Oct, [facility] [place] [facility] [address] [id number] [place] [address]- 9716 05 Oct, 2013 [facility] [place] [facility] [address] [id number] [place] [address]- 5561 Sep, [facility] [place] [facility] [address] [id number] [place] [address]- 7594 Sep, [facility] [place] [facility] [address] [id number] [place] [address]- 4696 Sep, [facility] [place] [facility] [address] [id number] [place] [address]- 9084 Sep, [facility] [place] [facility] [address] [id number] [place] [address]- 1189 Sep, [facility] [place] [facility] [address] [id number] [place] [address]- 3311 Sep, [facility] [place] [facility] [address] [id number] [place] [address]- 9719 Sep, [facility] [place] [facility] [address] [id number], [place] [address]- 7314 Sep, [facility] [place] [facility] [address] [id number] [place] [address]- 1814 Sep, [facility] [place] [facility] [address] [id number] [place] [address]- 5053 Sep, [facility] [place] [facility] [address] [id number] [place] [address]- 5849 Sep, [facility] [place] [facility] [address] [id number] [place] [address]- 1798 Sep, [facility] [address] [id number] [place] [address]- 5353 Aug, [facility] [address] [id number] [place] [address]- 5333 Aug, [facility] [address] [id number] [place] [address]- 5270 Aug, [facility] [address] [id number] [place] [address]- 4303 Aug, [facility] [address] [id number] [place] [address]- 4826 June, [facility] [address] [id number] [place] [address]- 4694 May, [facility] [address] [id number] [place] [address]- 7990 May, [facility] [address] [id number] [place] [address]- 4253 May, [facility] [address] [id number] [place] [address]- 0774 18 May, 2013 [facility] [address] [id number] [place] [address]- 9953 May, [facility] [place] [facility] [address] [id number] [place] [address]- 3560 17 May, 2013 [facility] [place] [facility] [address] [id number] [place] [address]- 0134 16 May, 2013 [facility] [place] [facility] [address] [id number] [place] [address]- 7533 16 May, 2013 [facility] [place] [facility] [address] [id number] [place] [address]- 9953 May, [facility] [place] [facility] [address] [id number] [place] [address]- 7213 May, [facility] [place] [facility] [address] [id number] [place] [address]- 4229 May, [facility] [place] [facility] [address] [id number] [place] [address]- 6751 May, [facility] [place] [facility] [address] [id number] [place] [address]- 1924 Apr, [facility] [place] [facility] [address] [id number] [place] [address]- 1984 Apr, [facility] [place] [facility] [address] [id number] [place] [address]- 7829 Mar, [facility] [place] [facility] [address] [id number] [place] [address]- 5017 Mar, [facility] [place] [facility] [address] [id number] [place] [address]- 5209 Dec, [facility] [place] [facility] [address] [id number], [place] [address]- 7043 Dec, [facility] [place] [facility] [address] [id number] [place] [address]- 4169 Dec, [facility] [place] [facility] [address] [facility] [id number], [place] [address]- 5214 Dec, [facility] [place] [facility] [address] [id number], [place] [address]- 9630 Nov, [facility] [place] [facility] [address] [id number], [place] [address]- 4710 Nov, [facility] [place] [facility] [address] [id number] [place] [address]- 5250 30 Oct, 2012 [facility] [place] [facility] [address] [id number], [place] [address]- 5782 Oct, [facility] [place] [facility] [address] [id number], [place] [address]- 9387 Aug, [facility] [place] [facility] [address] [id number], [place] [address]- 7188 Aug, [facility] [address] [id number] [place] [address]- 3763 Aug, [facility] [place] [facility] [address] [id number] [place] [address]- 5037 Jul, [facility] [place] [facility] [address] [id number] [place] [address]- 4423 June, [facility] [place] [facility] [address] [id number] [place] [address]- 9643 June, [facility] [address] [id number] [place] [address]- 9018 Apr, [facility] [place] [facility] [address] [id number] [place] [address]- 1348 Mar, [facility] [address] [id number] [place] [address]- 1287 Mar, [facility] [place] [facility] [address] [id number] [place] [address]- 4057 Mar, [facility] [address] [id number] [place] [address]- 4876 Mar, [facility] [address] [facility] [id number] [place] [address]- 9287 Mar, [facility] [address] [id number] [place] [address]- 6996 Feb, [facility] [place] [facility] [address] [id number] [place] [address]- 7260 Feb, [facility] [place] [facility] [address] [id number] [place] [address]- 0689 Feb, [facility] [place] [facility] [address] [id number] [place] [address]- 5786 Feb, [facility] [place] [facility] [address] [id number] [place] [address]- 8437 Jan, [facility] [place] [facility] [address] [id number] [place] [address] 2545 Jan, [facility] [address] [id number] [place] [address]- 3166 Dec, [facility] [address] [id number] [place] [address] Dec, [facility] [address] [id number] [place] [address] Dec, [facility] [address] [id number] [place] [address] Dec, [facility] [address] [id number] [place] [address] Oct, [facility] [address] [id number] [place] [address] Aug, [facility] [address] [id number] [place] [address] Jul, [facility] [address] [id number] [place] [address] June, [facility] [address] [id number] [place] [address] June, [facility] [address] [id number] [place] [address] June, [facility] [address] [id number] [place] [address] June, [facility] [place] [facility] [address] [id number] [place] [address] June, [facility] [place] [facility] [address] [id number] [place] [address] May, [facility] [place] [facility] [address] [id number] [place] [address] May, [facility] [place] [facility] [address] [id number] [place] [address] 15 Apr, 2011 [facility] [place] [facility] [address] [id number] [place] [address] 13 Apr, 2011 [facility] [place] [facility] [address] [id number] [place] [address] 27 Mar, 2011 [facility] [place] [facility] [address] [id number] [place] [address] Feb, [facility] [place] [facility] [address] [id number] [place] [address] Nov, [facility] [place] [facility] [address] [id number] [place] [address] 13 Nov, 2010 [facility] [place] [facility] [address] [id number] [place] [address] 13 Nov, 2010 [facility] [place] [facility] [address] [id number] [place] [address] Apr, [facility] [place] [facility] [address] [id number] [place] [address] Jan, [facility] [place] [facility] [address] [id number] [place] [address] Dec, [facility] [place] [facility] [address] [id number] [place] [address] Dec, [facility] [place] [facility] [address] [id number] [place] [address] 29 Nov, 2009 [facility] [place] [facility] [address] [id number] [place] [address] June, [facility] [place] [facility] [address] [id number] [place] [address] 29 Jan, 2009 [facility] [place] [facility] [address] [id number] [place] [address] 28 Jan, 2009 [facility] [place] [facility] [address] [id number] [place] [address] 23 Jan, 2009 [facility] [place] [facility] [address] [facility] [id number], [place] [address] 22 Jan, 2009 [facility] [address] [facility] [id number] [address] 16 Jan, 2009 [facility] [address] [id number] [address] [address] 15 Jan, 2009 [facility] [id number] [address] 15 Jan, 2009 [facility] [address] [facility] [id number] [address] [address] Jan, [facility] [facility] [id number] [address] Jan, [facility] [id number] [address] Jan, [facility] [id number], [place] [address] 04 Jan, 2009 [facility] [id number] [address] 02 Jan, 2009 [facility] [id number], [place] [address] Dec, [facility] [id number] [address] Dec, [facility] [id number] [place] [address] Dec, [facility] [id number], [place] [address] Dec, [facility] [id number], [place] [address] Nov, [facility] [id number], [place] [address] 10 Oct, 2008 IMMUNIZATIONS No Known Immunizations SOCIAL HISTORY Never Assessed REASON FOR VISIT unable to contact/Repository Medication PLAN OF CARE VITAL SIGNS MEDICATIONS Unknown [...] left knee pseudogout status post joint fluid analysis-[facility] 09/20/16
--- OUTSIDE RECORDS SUMMARY | 2017-12-06 13:49 | XMS REPORT ---
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 Active 789561497 Problem Type 2 diabetes mellitus with hyperglycemia E11.65 Active 171050773934102 Problem Chronic kidney disease, stage 3 N18.3 Active 965768449 Problem Gout, unspecified M10.9 Active 25205395 Problem Insomnia, unspecified G47.00 Active 778399776 Problem Coronary atherosclerosis of unspecified type of vessel, rosebud or graft I25.10 Active 750481466 Problem Gastroesophageal reflux disease, esophagitis presence not specified K21.9 Active 084390629 Problem Primary osteoarthritis of left knee M17.12 Active [id number] Problem Gout of left knee due to renal impairment, unspecified chronicity M10.362 Active 061472624 Problem Mixed hyperlipidemia E78.2 Active 611132052 Problem 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 361423171 Problem Pseudogout M11.20 Active 706168556 Problem Mood disorder F39 Active 26208431 ALLERGIES No Information ENCOUNTERS Encounter Location Date Diagnosis [address] [facility] [id number] [address] Sep, [facility] [address] [id number] [address] 16 Aug, 2017 Gout, unspecified M10.9 ; Gastroesophageal reflux disease, esophagitis presence not specified K21.9 ; Mood disorder F39 and Coronary atherosclerosis of unspecified type of vessel, rosebud or graft I25.10 [facility] [address] [facility] [id number] [address] 11 Aug, 2017 [place] [id number] [place] [address] 47602- 0030 June, Type 2 diabetes mellitus with hyperglycemia E11.65 [place] [id number] [place] [address] 06242- 1041 May, Mood disorder F39 ; Gastroesophageal reflux disease, esophagitis presence not specified K21.9 ; Gout, unspecified M10.9 ; Coronary atherosclerosis of unspecified type of vessel, rosebud or graft I25.10 and Type 2 diabetes mellitus with hyperglycemia E11.65 [place] [id number] [place] [address] 26876- 9501 May, Type 2 diabetes mellitus with hyperglycemia E11.65 [place] [id number] [place] [address] 92637- 3148 Apr, Diabetes E11.9 and Mood disorder F39 [place] [address] [address]- 69[address] Mar, Primary osteoarthritis of left knee M17.12 and Tear of lateral meniscus of left knee, unspecified tear type, unspecified whether old or current tear, initial encounter S83.282A [place] [id number] [place] [address] 35077- 4764 Feb, Mood disorder F39 [place] [id number] [place] [address] 28633- 9701 Feb, Pseudogout M11.20 [place] [id number] [place] [address] 35019- 8374 Jan, Other mcc (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 [place] [id number] [place] [address] 01454- 8455 18 Jan, 2017 Gout of left knee due to renal impairment, unspecified chronicity M10.362 ; Type 2 diabetes mellitus with diabetic nephropathy E11.21 ; Synovial cyst of popliteal space [Mejia], left knee M71.22 and Low back pain M54.5 [place] [id number] [place] [address] 69824- 4667 Dec, Pseudogout M11.20 [place] [address] 18988- 6677 Dec, [place] [address] 75771- 0385 Dec, Type 2 diabetes mellitus with diabetic nephropathy E11.21 and Right anterior knee pain M25.561 [place] [address] 42509- 5459 Nov, Pseudogout M11.20 [place] [id number] [place] [address] 46751- 8236 Nov, Pseudogout M11.20 ; Chronic kidney disease, stage 3 N18.3 ; Mixed hyperlipidemia E78.2 ; Gout, unspecified M10.9 ; Coronary atherosclerosis of unspecified type of vessel, rosebud or graft I25.10 ; Mood disorder F39 and Gastroesophageal reflux disease, esophagitis presence not specified K21.9 [place] [id number] [place] [address] 91858- 3732 Nov, [place] [id number] [place] [address] 70834- 3420 Oct, Pseudogout M11.20 [place] [id number] [place] [address] 92690- 6995 Sep, Pseudogout M11.20 [place] [id number] [place] [address] 29236- 4194 Sep, Pseudogout M11.20 [place] [id number] [place] [address] 75923- 6515 Sep, [facility] [id number] [place] [address] [id number] Aug, [facility] [id number] [place] [address] 72899- 8204 Aug, Diabetes E11.9 ; Chronic kidney disease, stage 3 N18.3 ; Hyperuricemia E79.0 ; Mixed hyperlipidemia E78.2 ; Gastroesophageal reflux disease, esophagitis presence not specified K21.9 ; Gout, unspecified M10.9 ; Coronary atherosclerosis of unspecified type of vessel, rosebud or graft I25.10 and Mood disorder F39 [facility] [id number] [place] [address] 14340- 4420 June, [facility] [id number] [place] [address] 75874- 2935 June, [facility] [id number] [place] [address] 87331- 3012 June, [facility] [id number] [place] [address] 82169- 3977 May, Chronic renal failure, stage 3 (moderate) N18.3 [facility] [id number] [place] [address] 61702- 7041 May, Diabetes E11.9 [facility] [id number] [place] [address] 38562- 2911 May, [facility] [id number] [place] [address] 66446- 3421 Apr, [facility] [id number] [place] [address] 84573- 5286 Apr, [facility] [id number] [place] [address] [id number]- 0194 09 Apr, 2016 Cellulitis of right lower extremity L03.115 and Diabetes E11.9 [facility] [id number] [place] [address] 98226- 7512 Apr, Type 2 diabetes mellitus with hyperglycemia E11.65 [place] [address] [place] [address] 47631- 7301 Mar, Cellulitis of right lower extremity L03.115 and Low back pain M54.5 [place] [id number] [place] [address] 77735- 6430 Mar, [place] [id number] [place] [address] 09675- 1189 Mar, Cellulitis of right lower extremity L03.115 [place] [id number] [place] [address] 50249- 2624 Mar, Cellulitis of right lower extremity L03.115 [place] [id number] [place] [address] 65046- 3152 Feb, Cellulitis of right lower extremity L03.115 [place] [id number] [place] [address] 23636- 3918 Feb, Cellulitis of right lower extremity L03.115 [place] [address] [place] [address] 60456- 9887 Feb, [place] [address] [place] [address] 89069- 8767 Feb, Leukocytosis, unspecified type D72.829 ; Chronic renal failure, stage 3 (moderate) N18.3 and Type 2 diabetes mellitus with hyperglycemia E11.65 [place] [address] [place] [address] 79581- 8091 Feb, Leukocytosis, unspecified type D72.829 [place] [address] [place] [address] 33883- 4144 Feb, [place] [address] [place] [address] 30360- 5952 Feb, Cellulitis of right lower extremity L03.115 ; Thrush B37.0 ; Gout of left knee due to renal impairment, unspecified chronicity M10.362 and Chronic renal failure, stage 3 (moderate) N18.3 [place] [id number] [place] [address] 65373- 7814 Feb, [place] [id number] [place] [address] 42025- 1613 Feb, Right foot infection L08.9 ; Type 2 diabetes mellitus with hyperglycemia E11.65 ; Arthralgia of left knee M25.562 ; Chronic kidney disease , stage 3 N18.3 and Diabetes E11.9 [place] [id number] [place] [address] 68556- 9076 Feb, [place] [id number] [place] [address] 24591- 7619 Feb, Diabetes E11.9 ; Arthralgia of left knee M25.562 and Thrush B37.0 [place] [id number] [place] [address] 70035- 2854 Jan, [place] [id number] [place] [address] 55766- 8670 Jan, Type 2 diabetes mellitus with hyperglycemia E11.65 ; Chronic renal failure, stage 3 (moderate) N18.3 and Leukocytosis, unspecified type D72.829 [place] [id number] [place] [address] 03583- 1613 Jan, Type 2 diabetes mellitus with hyperglycemia E11.65 [place] [id number] [place] [address] 97176- 8428 Dec, Gout of left knee due to renal impairment, unspecified chronicity M10.362 [place] [id number] [place] [address] 06931- 8192 Dec, Gout of left knee due to renal impairment, unspecified chronicity M10.362 and Diabetes E11.9 [place] [id number] [place] [address] 72799- 3099 Dec, [facility] [id number] [place] [address] 97808- 4980 Dec, 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 [id number] [place] [address] 68498 -0449 Dec, Leukocytosis, unspecified type D72.829 ; Chronic renal failure, stage 3 (moderate) N18.3 and Nausea R11.0 [place] [id number] [place] [address] 95276- 5575 Nov, [facility] [id number] [place] [address] 18337- 6576 Jul, [place] [address] 26766- 0799 Jul, Diabetes E11.9 ; Low back pain M54.5 and Other chronic pain G89.29 [place] [id number] [place] [address] 22087- 2433 June, [place] [id number] [place] [address] 45453- 8614 June, [facility] [id number] [place] [address] 81973- 2914 Jan, Viral illness B34.9 [place] [address] 25382- 2415 08 Jan, 2015 Type 2 diabetes mellitus with hyperglycemia E11.65 ; Pain in right foot M79.671 and Localized edema R60.0 [place] [address] 58550- 4883 Jan, [facility] [id number] [place] [address] 11071- 1831 Dec, Right foot pain M79.671 ; Insomnia, unspecified type G47.00 and Diabetes E11.9 [facility] [id number] [place] [address] 78891- 3786 Dec, Pain in right foot M79.671 [facility] [id number] [place] [address] 77228- 8914 Nov, [facility] [id number] [place] [address] 29413- 3969 Sep, [facility] [id number] [place] [address] 62023- 9318 Sep, Diabetes mellitus, type II 250.00 [facility] [id number] [place] [address] 40251- 2275 May, [facility] [id number] [place] [address] 10994- 4454 May, [facility] [id number] [place] [address] 51858- 0584 Apr, [facility] [address] [address]- 6767 Apr, [facility] [address] [place] [address] 39994- 9352 16 Apr, 2014 [facility] [address] [address]- 6361 16 Apr, 2014 [facility] [id number] [place] [address] 05137- 5710 Apr, [facility] [address] [address]- 3158 Apr, [facility] [address] [place] [address] 94739- 0079 05 Apr, 2014 [facility] [place] [facility] [address] [id number] [place] [address]- 5242 05 Apr, 2014 [facility] [place] [facility] [address] [id number] [place] [address]- 8267 Jan, [facility] [place] [facility] [address] [id number] [place] 4941 Jan, [facility] [place] [facility] [address] [id number] [place] [address]- 9838 Jan, [facility] [place] [facility] [address] [id number] [place] [address]- 3500 Jan, [facility] [place] [facility] [address] [id number] [place] [address]- 5070 Dec, [facility] [place] [facility] [address] [id number] [place] [address]- 8638 Dec, [facility] [place] [facility] [address] [id number] [place] [address]- 3159 Nov, [facility] [place] [facility] [address] [id number] [place] [address]- 4838 Nov, [facility] [place] [facility] [address] [id number] [place] [address]- 1771 Oct, [facility] [place] [facility] [address] [id number] [place] [address]- 0129 Oct, [facility] [place] [facility] [address] [id number] [place] [address]- 7222 Oct, [facility] [place] [facility] [address] [id number] [place] [address]- 5317 Oct, [facility] [place] [facility] [address] [id number] [place] [address]- 5415 Sep, [facility] [place] [facility] [address] [id number] [place] 2803 Sep, [facility] [place] [facility] [address] [id number] [place] [address]- 7513 Sep, [facility] [place] [facility] [address] [id number] [place] [address]- 6380 Sep, [facility] [place] [facility] [address] [id number] [place] [address]- 5736 Sep, [facility] [place] [facility] [address] [id number] [place] [address]- 9048 Sep, [facility] [place] [facility] [address] [id number] [place] [address]- 0592 Sep, [facility] [place] [facility] [address] [id number] [place] [address]- 8827 Sep, [facility] [place] [facility] [address] [id number] [place] [address]- 6988 Sep, [facility] [place] [facility] [address] [id number] [place] [address]- 2228 Sep, [facility] [place] [facility] [address] [id number] [place] [address]- 0290 Sep, [facility] [place] [facility] [address] [id number] [place] [address]- 5808 Sep, [facility] [place] [facility] [address] [id number] [place] [address]- 9269 Aug, [facility] [place] [facility] [address] [id number] [place] [address]- 0660 Aug, [facility] [place] [facility] [address] [id number] [place] [address]- 6454 Aug, [facility] [place] [facility] [address] [id number] [place] [address]- 8257 Aug, [facility] [place] [facility] [address] [id number] [place] [address]- 6344 June, [facility] [place] [facility] [address] [id number] [place] [address]- 2196 May, [facility] [place] [facility] [address] [id number] [place] [address]- 8868 24 May, 2013 [facility] [place] [facility] [address] [id number] [place] [address]- 2377 21 May, 2013 [facility] [place] [facility] [address] [id number] [place] [address]- 3899 18 May, 2013 [facility] [place] [facility] [address] [id number] [place] [address]- 8796 17 May, 2013 [facility] [place] [facility] [address] [id number] [place] [address]- 3091 17 May, 2013 [facility] [place] [facility] [address] [id number] [place] [address]- 7423 16 May, 2013 [facility] [place] [facility] [address] [id number] [place] [address]- 0683 16 May, 2013 [facility] [place] [facility] [address] [id number] [place] [address]- 3526 14 May, 2013 [facility] [place] [facility] [address] [id number] [place] [address]- 8862 14 May, 2013 [facility] [place] [facility] [address] [id number] [place] [address]- 9959 14 May, 2013 [facility] [place] [facility] [address] [id number] [place] [address]- 6116 14 May, 2013 [facility] [place] [facility] [address] [id number] [place] [address]- 1954 Apr, [facility] [place] [facility] [address] [id number] [place] [address]- 8102 Apr, [facility] [place] [facility] [address] [id number] [place] 1750 Mar, [facility] [place] [facility] [address] [id number] [place] [address]- 9610 Mar, [facility] [place] [facility] [address] [id number] [place] [address]- 6768 Dec, [facility] [place] [facility] [address] [id number] [place] [address]- 2547 Dec, [facility] [place] [facility] [address] [id number] [place] [address]- 1816 Dec, [facility] [place] [facility] [address] [facility] [id number] [place] [address]- 2546 Dec, [facility] [place] [facility] [address] [id number] [place] [address]- 9729 Nov, [facility] [place] [facility] [address] [id number] [place] [address]- 2778 Nov, [facility] [place] [facility] [address] [id number] [place] [address]- 8806 Oct, [facility] [place] [facility] [address] [id number] [place] [address]- 9876 Oct, [facility] [place] [facility] [address] [id number] [address]- 9296 Aug, [facility] [place] [facility] [address] [id number] [place] [address]- 9682 Aug, [facility] [place] [facility] [address] [facility] [id number] [place] [address]- 9107 Aug, [facility] [place] [facility] [address] [id number] [place] [address]- 3707 Jul, [facility] [place] [facility] [address] [id number] [place] [address]- 2546 June, [facility] [place] [facility] [address] [id number] [place] [address]- 2546 June, [facility] [place] [facility] [address] [id number] [place] [address]- 2546 Apr, [facility] [place] [facility] [address] [id number] [place] [address]- 2546 Mar, [facility] [place] [facility] [address] [id number] [place] [address]- 6466 Mar, [facility] [address] [id number] [place] [address]- 4026 Mar, [facility] [place] [facility] [address] [id number] [place] [address] 2546 Mar, [facility] [address] [id number] [place] [address]- 8766 Mar, [facility] [address] [id number] [place] [address] 2545 Feb, [facility] [address] [id number] [place] [address]- 8504 Feb, [facility] [address] [id number] [place] [address]- 9860 Feb, [facility] [address] [id number] [place] [address]- 1632 Feb, [facility] [address] [id number] [place] [address]- 2922 Jan, [facility] [address] [id number] [place] [address]- 2447 Jan, [facility] [address] [id number] [place] 3950 Dec, [facility] [address] [id number] [place] [address] 2546 Dec, [facility] [address] [id number] [place] [address] Dec, [facility] [place] [facility] [address] [id number] [place] [address] Dec, [facility] [place] [facility] [address] [id number] [place] [address] Oct, [facility] [address] [id number] [place] [address] Aug, [facility] [address] [id number] [place] [address] Jul, [facility] [place] [facility] [address] [id number] [place] [address] June, [facility] [place] [facility] [address] [id number] [place] [address] June, [facility] [place] [facility] [address] [id number] [place] [address] June, [facility] [place] [facility] [address] [id number] [place] [address] June, [facility] [place] [facility] [address] [id number] [place] [address] June, [facility] [place] [facility] [address] [id number] [place] [address] May, [facility] [place] [facility] [address] [id number] [place] [address] May, [facility] [place] [facility] [address] [id number] [place] [address] Apr, [facility] [place] [facility] [address] [id number] [place] [address] Apr, [facility] [place] [facility] [address] [id number] [place] [address] Mar, [facility] [place] [facility] [address] [id number] [address] Feb, [facility] [place] [facility] [address] [id number] [place] [address] Nov, [facility] [place] [facility] [address] [id number] [place] [address] Nov, [facility] [place] [facility] [address] [id number] [place] [address] Nov, [facility] [place] [facility] [address] [id number] [place] [address] 17 Apr, 2010 [facility] [address] [id number] [place] [id number] 07 Jan, 2010 [facility] [place] [facility] [address] [id number] [place] [address] 24 Dec, 2009 [facility] [address] [id number] [place] [address] 11 Dec, 2009 [facility] [place] [facility] [address] [id number] [place] [address] 29 Nov, 2009 [facility] [address] [id number] [place] [address] June, [facility] [place] [facility] [address] [id number] [place] [address] 29 Jan, 2009 [facility] [address] [id number] [place] [address] 28 Jan, 2009 [facility] [place] [facility] [address] [id number] [place] [address] 23 Jan, 2009 [facility] [address] [id number] [place] [address] 22 Jan, 2009 [facility] [address] [facility] [id number] [place] [address] 16 Jan, 2009 [facility] [place] [facility] [address] [id number] [place] [address] 15 Jan, 2009 [facility] [place] [facility] [address] [id number] [place] [address] 15 Jan, 2009 [facility] [place] [facility] [address] [id number] [place] [address] 11 Jan, 2009 [facility] [place] [facility] [address] [facility] [id number] [place] [id number] Jan, 2009 [facility] [place] [facility] [address] [facility] [id number] [place] [address] [id number] 10 Jan, 2009 [facility] [place] [facility] [id number] [address] Jan, [facility] [id number] [address] Jan, [facility] [id number] [address] Dec, [facility] [id number] [address] Dec, [facility] [address] [id number] [address] Dec, [facility] [id number] [address] Dec, [facility] [id number] [address] Nov, [facility] [id number] [address] Oct, IMMUNIZATIONS No Known Immunizations SOCIAL HISTORY Never Assessed REASON FOR VISIT Refill request PLAN OF CARE VITAL SIGNS MEDICATIONS Medication Instructions Dosage Frequency Start Date End Date Duration Status BD Insulin Syringe Ultrafine 31G X 15/64" 1 ML as directed May, Active Omeprazole 40 MG Orally Once a day 1 capsule 24h 90 days Active Toprol XL 100 MG Orally Once a day 1 tablet 24h 90 days Active Seroquel 50 mg Orally Once a day 3 Tablets 24h Jan, 30 days Active Plavix 75 MG Orally Once a day 1 tablet 24h 90 days Active Uloric 80 MG Orally Once a day 1 tablet 24h Aug, 90 days Active RESULTS No Results PROCEDURES [...]
--- OUTSIDE RECORDS SUMMARY | 2017-12-06 13:49 | XMS REPORT ---
Author Author VICTOR M CHIN [facility] Address [address] [place] [address] Care Team Providers Care Digital Media Planner Name Role Phone VICTOR M CHIN Unavailable PROBLEMS Type Condition ICD9-CM Code BSB88-TV Code Onset Dates Condition Status SNOMED Code Problem [facility] 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 Active 331093948 Problem Type 2 diabetes mellitus with hyperglycemia E11.65 Active 148726845576464 Problem Chronic kidney disease, stage 3 N18.3 Active 893594840 Problem Gout, unspecified M10.9 Active 79997746 Problem Insomnia, unspecified G47.00 Active 782640046 Problem Coronary atherosclerosis of unspecified type of vessel, [place] or graft I25.10 Active 115024801 Problem Gastroesophageal reflux disease, esophagitis presence not specified K21.9 Active 542901558 Problem Primary osteoarthritis of left knee M17.12 Active [id number] Problem Gout of left knee due to renal impairment, unspecified chronicity M10.362 Active 428803104 Problem Mixed hyperlipidemia E78.2 Active 338484406 Problem 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 614905377 Problem Pseudogout M11.20 Active 140340915 Problem Mood disorder F39 Active 38431314 ALLERGIES No Information ENCOUNTERS Encounter Location Date Diagnosis [place] [id number] [place] [address] 79390- 8562 June, Type 2 diabetes mellitus with hyperglycemia E11.65 [place] [address] [place] [address] 19063- 9837 May, Mood disorder F39 ; Gastroesophageal reflux disease, esophagitis presence not specified K21.9 ; Gout, unspecified M10.9 ; Coronary atherosclerosis of unspecified type of vessel, [place] or graft I25.10 and Type 2 diabetes mellitus with hyperglycemia E11.65 [place] [address] [place] [address] 73310- 6792 May, Type 2 diabetes mellitus with hyperglycemia E11.65 [place] [address] [place] [id number] [place] [address] 92273- 7530 Apr, Diabetes E11.9 and Mood disorder F39 [facility] [address] [id number] [place] [address] 08734- 2606 15 Mar, 2017 Primary osteoarthritis of left knee M17.12 and Tear of lateral meniscus of left knee, unspecified tear type, unspecified whether old or current tear, initial encounter S83.282A [place] [address] [place] [id number] [place] [address] 08943- 7308 Feb, Mood disorder F39 [place] [address] [place] [id number] [place] [address] 17566- 9885 Feb, Pseudogout M11.20 [place] [address] [place] [id number] [place] [address] 33312- 3149 Jan, Other oil heaterman (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 [facility] [address] [place] [id number] [place] [address] 19107 -8781 Jan, [place] [address] [place] [id number] [place] [address] 20854- 2342 Jan, Pseudogout M11.20 ; Type 2 diabetes mellitus with hyperglycemia E11.65 and Other halfway (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 [place] [address] [place] [id number] [place] [address] 35632- 1160 Jan, Gout of left knee due to renal impairment, unspecified chronicity M10.362 ; Type 2 diabetes mellitus with diabetic nephropathy E11.21 ; Synovial cyst of popliteal space [Mejia], left knee M71.22 and Low back pain M54.5 [facility] [address] [place] [address] 05356- 8254 21 Dec, 2016 Pseudogout M11.20 [facility] [address] [place] [id number] [place] [address] 82673- 7381 Dec, [place] [address] [place] [address] 39175- 2992 Dec, Type 2 diabetes mellitus with diabetic nephropathy E11.21 and Right anterior knee pain M25.561 [place] [address] [place] [id number] [place] [address] 06293- 9615 Nov, Pseudogout M11.20 [place] [address] [place] [id number] [place] [address] 28229- 2578 Nov, Pseudogout M11.20 ; Chronic kidney disease, stage 3 N18.3 ; Mixed hyperlipidemia E78.2 ; Gout, unspecified M10.9 ; Coronary atherosclerosis of unspecified type of vessel, [place] or graft I25.10 ; Mood disorder F39 and Gastroesophageal reflux disease, esophagitis presence not specified K21.9 [place] [address] [place] [id number] [place] [address] 80690- 0117 Nov, [place] [address] [place] [id number] [place] [address] 10768- 9769 Oct, Pseudogout M11.20 [place] [address] [place] [id number] [place] [address] 25639- 1801 Sep, Pseudogout M11.20 [place] [address] [place] [id number] [place] [address] 07285- 0090 Sep, Pseudogout M11.20 [place] [address] [place] [id number] [place] [address] 43254- 8065 Sep, [place] [address] [place] [id number] [place] [address] [id number] Aug, [place] [address] [place] [id number] [place] [address] 97379- 8639 Aug, Diabetes E11.9 ; Chronic kidney disease, stage 3 N18.3 ; Hyperuricemia E79.0 ; Mixed hyperlipidemia E78.2 ; Gastroesophageal reflux disease, esophagitis presence not specified K21.9 ; Gout, unspecified M10.9 ; Coronary atherosclerosis of unspecified type of vessel, [place] or graft I25.10 and Mood disorder F39 [facility] [address] [id number] [place] [address] 35344- 5849 June, [facility] [address] [id number] [place] [address] 57378- 5686 June, [facility] [address] [place] [id number] [place] [address] 92698- 1315 June, [facility] [address] [place] [id number] [place] [address] 29217- 0670 May, Chronic renal failure, stage 3 (moderate) N18.3 [facility] [address] 56021- 2178 May, Diabetes E11.9 [place] [address] [place] [id number] [place] [address] 82340- 8139 May, [facility] [address] [place] [id number] [place] [address] 55295- 0428 Apr, [facility] [address] [place] [id number] [place] [address] 37818- 1008 Apr, [place] [address] [place] [id number] [place] [address] 76484- 6404 Apr, Cellulitis of right lower extremity L03.115 and Diabetes E11.9 [facility] [address] [place] [id number] [place] [address] 42983- 7940 Apr, Type 2 diabetes mellitus with hyperglycemia E11.65 [facility] [address] [place] [id number] [place] [address] 35816- 2373 Mar, Cellulitis of right lower extremity L03.115 and Low back pain M54.5 [facility] [address] [place] [id number] [place] [address] 01018- 2034 Mar, [facility] [address] [place] [address] [id number] [place] [address] 36401- 9885 Mar, Cellulitis of right lower extremity L03.115 [facility] [address] [address]- 4479 Mar, Cellulitis of right lower extremity L03.115 [facility] [address] [address]- 2426 Feb, Cellulitis of right lower extremity L03.115 [facility] [address] [place] [address] 11091- 2894 Feb, Cellulitis of right lower extremity L03.115 [place] [address] [address]- 5865 Feb, [place] [address] [place] [address] 03042- 7662 Feb, Leukocytosis, unspecified type D72.829 ; Chronic renal failure, stage 3 (moderate) N18.3 and Type 2 diabetes mellitus with hyperglycemia E11.65 [place] [address] [address]- 4705 Feb, Leukocytosis, unspecified type D72.829 [place] [address] [address]- 8510 Feb, [place] [address] [place] [id number] [address]- 0237 Feb, Cellulitis of right lower extremity L03.115 ; Thrush B37.0 ; Gout of left knee due to renal impairment, unspecified chronicity M10.362 and Chronic renal failure, stage 3 (moderate) N18.3 [place] [address] [place] [id number] [address]- 4368 Feb, [place] [address] [address]- 8379 Feb, Right foot infection L08.9 ; Type 2 diabetes mellitus with hyperglycemia E11.65 ; Arthralgia of left knee M25.562 ; Chronic kidney disease , stage 3 N18.3 and Diabetes E11.9 [place] [address] [address]- 4253 Feb, [place] [address] [place] [id number] [place] [address] 03295- 8273 Feb, Diabetes E11.9 ; Arthralgia of left knee M25.562 and Thrush B37.0 [place] [address] [place] [id number] [place] [address] 30006- 7352 Jan, [place] [address] [place] [id number] [place] [address] 69597- 6413 Jan, Type 2 diabetes mellitus with hyperglycemia E11.65 ; Chronic renal failure, stage 3 (moderate) N18.3 and Leukocytosis, unspecified type D72.829 [place] [address] [place] [id number] [place] [address] 78182- 5799 Jan, Type 2 diabetes mellitus with hyperglycemia E11.65 [place] [address] [place] [id number] [place] [address] 26027- 5249 Dec, Gout of left knee due to renal impairment, unspecified chronicity M10.362 [place] [address] [place] [id number] [place] [address] 69498- 4831 Dec, Gout of left knee due to renal impairment, unspecified chronicity M10.362 and Diabetes E11.9 [place] [address] [place] [address] 95117- 7480 Dec, [place] [address] [place] [address] 38538- 8173 Dec, [facility] [address] [place] [address] 18547 -4268 Dec, [place] [address] [place] [id number] [place] [address] 25411- 4649 Dec, Chronic kidney disease, stage 3 N18.3 ; Type 2 diabetes mellitus with diabetic nephropathy E11.21 ; Type 2 diabetes mellitus with hyperglycemia E11.65 and [facility] 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 [facility] [address] [place] [address] 63944 -9085 Dec, Leukocytosis, unspecified type D72.829 ; Chronic renal failure, stage 3 (moderate) N18.3 and Nausea R11.0 [place] [address] [place] [id number] [place] [address] 22013- 1984 Nov, [place] [address] 11388- 4816 Jul, [place] [address] 98660- 4031 Jul, Diabetes E11.9 ; Low back pain M54.5 and Other chronic pain G89.29 [place] [address] [place] [id number] [place] [address] 61798- 4699 June, [address] 93519- 0989 June, [place] [address] [place] [id number] [place] [address] 02105- 4475 Jan, Viral illness B34.[address] 60364- 5805 Jan, Type 2 diabetes mellitus with hyperglycemia E11.65 ; Pain in right foot M79.671 and Localized edema R60.0 [place] [id number] [place] [address] 81990- 8013 Jan, [place] [address] 96763- 4213 Dec, Right foot pain M79.671 ; Insomnia, unspecified type G47.00 and Diabetes E11.9 [place] [address] 26151- 8512 16 Dec, 2014 Pain in right foot M79.671 [place] [address] [place] [id number] [place] [address] 67992- 2460 Nov, [place] [address] [id number] [place] [address]- 5686 Sep, [facility] [address] [id number] [place] [address]- 9620 Sep, Diabetes mellitus, type II 250.00 [facility] [address] [id number] [place] [address]- 9967 14 May, 2014 [facility] [address] [id number] [place] [address]- 4460 May, [facility] [address] [id number] [place] [address]- 2122 Apr, [facility] [address] [id number] [place] [address]- 1719 Apr, [facility] [address] [facility] [id number] [place] [address]- 1341 16 Apr, 2014 [facility] [address] [facility] [id number] [place] [address]- 6113 16 Apr, 2014 [facility] [address] [facility] [id number] [place] [address]- 9883 Apr, [facility] [address] [facility] [id number] [place] [address]- 0609 Apr, [facility] [address] [facility] [id number] [place] [address]- 9837 Apr, [facility] [place] [facility] [address] [id number] [address]- 0776 05 Apr, 2014 [facility] [place] [facility] [address] [facility] [id number] [place] [address]- 3914 Jan, [facility] [place] [facility] [address] [id number] [place] [address]- 2531 Jan, [facility] [place] [facility] [address] [facility] [id number] [place] [address]- 3282 15 Jan, [address] [facility] [place] [facility] [address] [id number] [place] [address]- 4119 15 Jan, 2014 [facility] [place] [facility] [address] [id number] [place] [address]- 2378 Dec, [facility] [place] [facility] [address] [id number] [place] [address]- 6070 Dec, [facility] [place] [facility] [address] [id number] [place] [address]- 3271 Nov, [facility] [place] [facility] [address] [id number] [place] [address]- 1392 Nov, [facility] [place] [facility] [address] [id number] [place] [address]- 5205 Oct, [facility] [place] [facility] [address] [id number] [place] [address]- 4112 Oct, [facility] [place] [facility] [address] [id number] [place] [address]- 6307 Oct, [facility] [place] [facility] [address] [id number] [place] [address]- 2923 Oct, [facility] [place] [facility] [address] [id number] [place] [address]- 4695 Sep, [facility] [place] [facility] [address] [id number] [place] [address]- 9574 Sep, [facility] [place] [facility] [address] [id number] [place] [address]- 8327 Sep, [facility] [place] [facility] [address] [id number] [place] [address]- 6620 Sep, [facility] [place] [facility] [address] [id number] [place] [address]- 2300 Sep, [facility] [place] [facility] [address] [id number] [place] [address]- 1335 Sep, [facility] [place] [facility] [address] [id number] [place] [address]- 9748 Sep, [facility] [place] [facility] [address] [id number] [place] [address]- 7213 Sep, [facility] [place] [facility] [address] [id number] [place] [address]- 8626 Sep, [facility] [place] [facility] [address] [id number] [place] [address]- 9508 Sep, [facility] [place] [facility] [address] [id number] [place] [address]- 5988 Sep, [facility] [place] [facility] [address] [id number] [place] [address]- 1552 Sep, [facility] [place] [facility] [address] [id number] [place] [address]- 6585 Aug, [facility] [place] [facility] [address] [id number] [place] [address]- 4517 Aug, [facility] [place] [facility] [address] [id number] [place] [address]- 1868 Aug, [facility] [place] [facility] [address] [id number] [place] [address]- 6482 Aug, [facility] [place] [facility] [address] [id number] [place] [address]- 8068 June, [facility] [place] [facility] [address] [id number] [place] [address]- 2358 May, [facility] [place] [facility] [address] [id number] [place] [address]- 2908 May, [facility] [place] [facility] [address] [id number] [place] [address]- 6560 May, [facility] [place] [facility] [address] [id number] [place] [address]- 6761 May, [facility] [place] [facility] [address] [id number] [place] [address]- 3758 May, [facility] [place] [facility] [address] [id number] [place] [address]- 6586 17 May, 2013 [facility] [place] [facility] [address] [id number] [place] [address]- 8916 16 May, 2013 [facility] [place] [facility] [address] [id number] [place] [address]- 3208 16 May, 2013 [facility] [place] [facility] [address] [id number] [place] [address]- 5568 May, [facility] [place] [facility] [address] [id number] [place] [address]- 0816 14 May, 2013 [facility] [place] [facility] [address] [id number] [place] [address]- 4180 May, [facility] [place] [facility] [address] [id number] [place] [address]- 9041 May, [facility] [place] [facility] [address] [id number] [place] [address]- 1994 Apr, [facility] [place] [facility] [address] [id number] [place] [address]- 2244 Apr, [facility] [place] [facility] [address] [id number] [place] [address]- 7864 Mar, [facility] [place] [facility] [address] [id number] [place] [address]- 4753 Mar, [facility] [place] [facility] [address] [id number] [place] [address]- 0704 Dec, [facility] [place] [facility] [address] [id number] [place] [address]- 4709 Dec, [facility] [place] [facility] [address] [id number] [place] [address]- 0898 Dec, [facility] [place] [facility] [address] [id number] [place] [address]- 1644 Dec, [facility] [place] [facility] [address] [id number] [place] [address]- 6329 Nov, [facility] [place] [facility] [address] [id number] [place] [address]- 1213 Nov, [facility] [address] [id number] [place] [address]- 0337 30 Oct, 2012 [facility] [place] [facility] [address] [id number] [place] [address]- 6433 Oct, [facility] [address] [id number] [place] [address]- 6729 Aug, [facility] [place] [facility] [address] [id number] [place] [address]- 8096 Aug, [facility] [address] [id number] [place] [address]- 9451 Aug, [facility] [address] [id number] [place] [address]- 4632 Jul, [facility] [address] [id number] [place] [address]- 5313 June, [facility] [address] [id number] [place] [address]- 2284 June, [facility] [address] [id number] [place] [address]- 4924 Apr, [facility] [address] [id number] [place] [address]- 2163 Mar, [facility] [place] [facility] [address] [id number] [place] [address]- 5458 Mar, [facility] [address] [id number] [place] [address]- 8667 Mar, [facility] [place] [facility] [address] [id number] [place] [address]- 0236 Mar, [facility] [place] [facility] [address] [id number] [place] [address]- 0246 Mar, [facility] [place] [facility] [address] [id number] [place] [address]- 3685 Feb, [facility] [address] [id number] [place] [address]- 1324 Feb, [facility] [place] [facility] [address] [id number] [place] [address]- 2116 Feb, [facility] [address] [id number] [place] [address] 2546 Feb, [facility] [address] [id number] [place] [address]- 0646 Jan, [facility] [address] [id number] [place] [address]- 2061 Jan, [facility] [place] [facility] [address] [id number] [place] [address]- 4245 Dec, [facility] [place] [facility] [address] [id number] [place] [address]- 5926 Dec, [facility] [place] [facility] [address] [id number], [place] [address]- 0618 Dec, [facility] [place] [facility] [address] [id number] [place] [address]- 7035 Dec, [facility] [place] [facility] [address] [id number] [place] [address]- 5526 Oct, [facility] [place] [facility] [address] [id number], [place] [address]- 3156 Aug, [facility] [place] [facility] [address] [id number], [place] [address]- 8149 Jul, [facility] [place] [facility] [address] [id number] [place] [address]- 0626 June, [facility] [place] [facility] [address] [id number], [place] [address]- 9276 June, [facility] [place] [facility] [address] [id number] [place] [address]- 2856 June, [facility] [place] [facility] [address] [id number] [place] [address]- 1399 June, [facility] [address] [id number] [place] [address]- 2484 June, [facility] [place] [facility] [address] [id number] [place] [address]- 8006 May, [facility] [address] [id number] [place] [address]- 3626 May, [facility] [place] [facility] [address] [id number] [place] [address]- 4424 15 Apr, 2011 [facility] [address] [id number] [place] [address]- 1964 Apr, [facility] [address] [id number] [place] [address]- 9008 Mar, [facility] [address] [id number] [place] [address] Feb, [facility] [address] [id number] [place] [address] Nov, [facility] [address] [id number] [place] [address] Nov, [facility] [address] [facility] [id number] [place] [address] 13 Nov, 2010 [facility] [address] [id number] [place] [address] 17 Apr, 2010 [facility] [place] [facility] [address] [id number] [place] [address] Jan, [facility] [place] [facility] [address] [id number] [place] [address] 24 Dec, 2009 [facility] [place] [facility] [address] [id number] [place] [address] Dec, [facility] [place] [facility] [address] [id number] [place] [address] 29 Nov, 2009 [facility] [place] [facility] [address] [id number] [place] [address] 12 Jun, 2009 [facility] [address] [id number] [place] [address] 29 Jan, 2009 [facility] [address] [id number] [place] [address] 28 Jan, 2009 [facility] [address] [id number] [place] [address]46 23 Jan, 2009 [facility] [address] [id number] [place] [address] 22 Jan, 2009 [facility] [address] [id number] [place] [address] 16 Jan, 2009 [facility] [address] [facility] [id number] [place] [address] 15 Jan, 2009 [facility] [address] [id number], [place] [address] 15 Jan, 2009 [facility] [address] [id number] [place] [address] 11 Jan, 2009 [facility] [address] [id number], [place] [address] 11 Jan, 2009 [facility] [address] [facility] [id number], [place] [address] 10 Jan, 2009 [facility] [address] [id number], [place] [address] 04 Jan, 2009 [facility] [address] [id number], [place] [address] 02 Jan, 2009 [facility] [place] [facility] [address] [id number] [address] 25 Dec, 2008 [facility] [address] [id number], [place] [address] 19 Dec, 2008 [facility] [address] [id number], [place] [address] Dec, [facility] [address] [facility] [id number] [place] [address] Dec, [facility] [address] [facility] [id number], [place] [address] Nov, [facility] [address] [facility] [id number] [place] [address] Oct, IMMUNIZATIONS No Known Immunizations SOCIAL HISTORY Never Assessed REASON FOR VISIT mejia's cyst left knee-xray done and ER records scanned in. Consult Victor M Chin; Nettie RT(R) PLAN OF CARE Activity Details Follow Up 1 Week Reason: VITAL SIGNS Height 73 in 2017-04-14 Blood pressure systolic 144 mmHg 2017-04-14 Blood pressure diastolic 86 mmHg 2017-04-14 MEDICATIONS Unknown Medications RESULTS No Results PROCEDURES [...]
--- OUTSIDE RECORDS SUMMARY | 2017-12-06 13:50 | XMS REPORT ---
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 Active 035060942 Problem Type 2 diabetes mellitus with hyperglycemia E11.65 Active 224259117783331 Problem Chronic kidney disease, stage 3 N18.3 Active 576961827 Problem Gout, unspecified M10.9 Active 08742414 Problem Insomnia, unspecified G47.00 Active 523021071 Problem Coronary atherosclerosis of unspecified type of vessel, [place] or graft I25.10 Active 348559122 Problem Gastroesophageal reflux disease, esophagitis presence not specified K21.9 Active 854297622 Problem Primary osteoarthritis of left knee M17.12 Active 283741402335004 Problem Gout of left knee due to renal impairment, unspecified chronicity M10.362 Active 264673014 Problem Mixed hyperlipidemia E78.2 Active 817286653 Problem 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 082808614 Problem Pseudogout M11.20 Active 168668422 Problem Mood disorder F39 Active 29256661 ALLERGIES No Information ENCOUNTERS Encounter Location Date Diagnosis [place] [address] [facility] [id number] [address] Sep, [place] [address] [facility] [id number] [address] 6897 Aug, [place] [address] [place] [id number] [place] [address] 22190- 9502 June, Type 2 diabetes mellitus with hyperglycemia E11.65 [place] [address] [facility] [id number] [address] 18 Apr, 2018 Mood disorder F39 ; Gastroesophageal reflux disease, esophagitis presence not specified K21.9 ; Gout, unspecified M10.9 ; Coronary atherosclerosis of unspecified type of vessel, [place] or graft I25.10 and Type 2 diabetes mellitus with hyperglycemia E11.65 [place] [address] [place] [id number] [place] [address] 05378- 1781 May, Type 2 diabetes mellitus with hyperglycemia E11.65 [place] [address] [place] [id number] [place] [address] 11564- 7153 Apr, Diabetes E11.9 and Mood disorder F39 [place] [address] [place] [id number] [place] [address] 76642- 4887 15 Mar, 2017 Primary osteoarthritis of left knee M17.12 and Tear of lateral meniscus of left knee, unspecified tear type, unspecified whether old or current tear, initial encounter S83.282A [place] [address] [place] [id number] [place] [address] 14530- 8932 Feb, Mood disorder F39 [place] [address] [place] [id number] [place] [address] 63127- 1410 Feb, Pseudogout M11.20 [place] [address] [place] [id number] [place] [address] 83829- 7944 Jan, 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 [facility] WALK IN [facility] [address] [place] [id number] [place] [address] 56613 -4679 Jan, [facility] [address] [place] [id number] [place] [address] 70928- 9782 Jan, Pseudogout M11.20 ; Type 2 diabetes mellitus with hyperglycemia E11.65 and Other care home (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 [place] [address] [place] [id number] [place] [address] 93094- 0239 Jan, Gout of left knee due to renal impairment, unspecified chronicity M10.362 ; Type 2 diabetes mellitus with diabetic nephropathy E11.21 ; Synovial cyst of popliteal space [Mejia], left knee M71.22 and Low back pain M54.5 [facility] [address] [place] [id number] [place] [address] 72891- 2618 Dec, Pseudogout M11.20 [facility] [address] [place] [id number] [place] [address] 50864- 9002 14 Dec, 2016 [facility] [address] 07605- 0351 13 Dec, 2016 Type 2 diabetes mellitus with diabetic nephropathy E11.21 and Right anterior knee pain M25.561 [facility] [address] [address]- 1984 Nov, Pseudogout M11.20 [place] [address] 61237- 7335 Nov, Pseudogout M11.20 ; Chronic kidney disease, stage 3 N18.3 ; Mixed hyperlipidemia E78.2 ; Gout, unspecified M10.9 ; Coronary atherosclerosis of unspecified type of vessel, [place] or graft I25.10 ; Mood disorder F39 and Gastroesophageal reflux disease, esophagitis presence not specified K21.9 [place] [address] [place] [id number] [place] [address] 84674- 0828 Nov, [facility] [address] [place] [id number] [place] [address] 12106- 8505 Oct, Pseudogout M11.20 [facility] [address] [place] [id number] [place] [address] 62602- 8110 Sep, Pseudogout M11.20 [facility] [address] [place] [id number] [place] [address] 51065- 7426 Sep, Pseudogout M11.20 [facility] [address] 26350- 8715 Sep, [facility] [address] [id number] Aug, [facility] [address] 02993- 8616 Aug, Diabetes E11.9 ; Chronic kidney disease, stage 3 N18.3 ; Hyperuricemia E79.0 ; Mixed hyperlipidemia E78.2 ; Gastroesophageal reflux disease, esophagitis presence not specified K21.9 ; Gout, unspecified M10.9 ; Coronary atherosclerosis of unspecified type of vessel, [place] or graft I25.10 and Mood disorder F39 [place] [address] 70577- 8747 June, [place] [address] 13440- 2780 June, [place] [address] 72876- 7950 June, [place] [address] 79885- 0638 May, Chronic renal failure, stage 3 (moderate) N18.3 [place] [address] 69496- 0065 May, Diabetes E11.9 [place] [address] 62798- 9198 May, [place] [address] 84659- 5748 Apr, [place] [address] [place] [id number] [place] [address] 96520- 8962 Apr, [place] [address] [place] [id number] [place] [address] 74499- 6009 Apr, Cellulitis of right lower extremity L03.115 and Diabetes E11.9 [place] [address] 51736- 2843 Apr, Type 2 diabetes mellitus with hyperglycemia E11.65 [place] [address] 62367- 0045 16 Mar, 2016 Cellulitis of right lower extremity L03.115 and Low back pain M54.5 [place] [address] [address]- 8673 Mar, [place] [id number] [place] [address] 22379- 7528 Mar, Cellulitis of right lower extremity L03.115 [place] [address]00565100[place] [address] 2546 Mar, Cellulitis of right lower extremity L03.115 [place] [id number] [place] [address] 19048 2543 Feb, Cellulitis of right lower extremity L03.115 [place] [address] [place] [id number] [place] [address] 74479- 5061 Feb, Cellulitis of right lower extremity L03.115 [place] [address]00565[address] [address]- 3140 Feb, [place] [id number] [place] [address] 20622- 0178 Feb, Leukocytosis, unspecified type D72.829 ; Chronic renal failure, stage 3 (moderate) N18.3 and Type 2 diabetes mellitus with hyperglycemia E11.65 [place] [address] [address]- 6702 Feb, Leukocytosis, unspecified type D72.829 [place] [address] [address]- 5763 Feb, [place] [address] [address]- 2743 Feb, Cellulitis of right lower extremity L03.115 ; Thrush B37.0 ; Gout of left knee due to renal impairment, unspecified chronicity M10.362 and Chronic renal failure, stage 3 (moderate) N18.3 [place] [address] [address]- 0863 Feb, [place] [address] [place] [id number] [address]- 2693 Feb, Right foot infection L08.9 ; Type 2 diabetes mellitus with hyperglycemia E11.65 ; Arthralgia of left knee M25.562 ; Chronic kidney disease , stage 3 N18.3 and Diabetes E11.9 [place] [address] [place] [id number] [place] [address] 32216- 6662 Feb, [place] [address] [place] [id number] [place] [address] 07286- 2840 Feb, Diabetes E11.9 ; Arthralgia of left knee M25.562 and Thrush B37.0 [place] [address] [place] [id number] [place] [address] 20045- 9069 Jan, [place] [address] [place] [id number] [place] [address] 86367- 1072 Jan, Type 2 diabetes mellitus with hyperglycemia E11.65 ; Chronic renal failure, stage 3 (moderate) N18.3 and Leukocytosis, unspecified type D72.829 [place] [address] [place] [id number] [place] [address] 71003- 3119 Jan, Type 2 diabetes mellitus with hyperglycemia E11.65 [place] [address] [place] [id number] [place] [address] 89617- 5737 Dec, Gout of left knee due to renal impairment, unspecified chronicity M10.362 [place] [id number] [place] [address] 51372- 7362 Dec, Gout of left knee due to renal impairment, unspecified chronicity M10.362 and Diabetes E11.9 [place] [address] [address]- 1055 Dec, [place] [address] [place] [id number] [place] [address] 68180- 5979 Dec, [facility] [address]00565100[place] [address] -6418 Dec, [facility] [address] [place] [id number] [place] [address] 90596- 8516 Dec, Chronic kidney disease, stage 3 N18.3 ; Type 2 diabetes mellitus with diabetic nephropathy E11.21 ; Type 2 diabetes mellitus with hyperglycemia E11.65 and intermediate 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 [facility] [address] [place] [id number] [place] [address] 20305 -0446 Dec, Leukocytosis, unspecified type D72.829 ; Chronic renal failure, stage 3 (moderate) N18.3 and Nausea R11.0 [place] [address] [place] [id number] [place] [address] 81711- 8629 Nov, [place] [address] 15743- 4976 Jul, [place] [address] 84657- 3571 Jul, Diabetes E11.9 ; Low back pain M54.5 and Other chronic pain G89.29 [place] [address] [place] [id number] [place] [address] 87563- 5176 June, [place] [address] 20954- 3917 June, [place] [address] [place] [id number] [place] [address] 07639- 1906 Jan, Viral illness B34.9 [place] [address] 86270- 2563 Jan, Type 2 diabetes mellitus with hyperglycemia E11.65 ; Pain in right foot M79.671 and Localized edema R60.0 [place] [address] 42547- 5274 Jan, [place] [address] [place] [id number] [place] [address] 80999- 7985 Dec, Right foot pain M79.671 ; Insomnia, unspecified type G47.00 and Diabetes E11.9 [place] [address] [address]- 8803 Dec, Pain in right foot M79.671 [facility] [address] [place] [address]- 8873 Nov, [facility] [address]65100[place] [address]- 4868 Sep, [facility] [address] [address]- 7810 Sep, Diabetes mellitus, type II 250.00 [facility] [address] [place] [address]- 2176 May, [facility] [address]005[address]100[place] [address]- 7530 May, [facility] [address] [address]- 1475 Apr, [facility] [address] [address]- 4880 Apr, [facility] [address]100[place] [address]- 6371 Apr, [facility] [address] [address]- 6542 Apr, [facility] [address] [place] [id number] [address]- 1506 Apr, [facility] [address] [place] [id number] [address]- 3385 Apr, [facility] [address] [place] [id number] [address]- 1778 Apr, [facility] [address] [place] [id number] [address]- 8686 05 Apr, [address] [facility] [address] [place] [id number] [address]- 2534 Jan, [facility] [address] [place] [address]- 6337 18 Jan, 2014 [facility] [place] [facility] [address] [id number] [place] [address]- 4086 15 Jan, 2014 [facility] [place] [facility] [address] [id number] [place] [address]- 4340 15 Jan, 2014 [facility] [place] [facility] [address] [id number] [place] [address]- 2084 Dec, [facility] [place] [facility] [address] [id number] [place] [address]- 0264 Dec, [facility] [place] [facility] [address] [id number] [place] [address]- 6878 Nov, [facility] [place] [facility] [address] [id number] [place] [address]- 3145 Nov, [facility] [place] [facility] [address] [id number] [place] [address]- 2027 Oct, [facility] [place] [facility] [address] [id number] [place] [address]- 9377 26 Oct, 2013 [facility] [place] [facility] [address] [id number] [place] [address]- 1634 05 Oct, 2013 [facility] [place] [facility] [address] [id number] [place] [address]- 2411 05 Oct, 2013 [facility] [place] [facility] [address] [id number] [place] [address]- 9760 Sep, [facility] [place] [facility] [address] [id number] [place] [address]- 3881 Sep, [facility] [place] [facility] [address] [id number] [place] [address]- 8196 Sep, [facility] [place] [facility] [address] [id number] [place] [address]- 9863 Sep, [facility] [place] [facility] [address] [id number] [place] [address]- 9394 Sep, [facility] [place] [facility] [address] [id number] [place] [address]- 0443 Sep, [facility] [place] [facility] [address] [id number] [place] [address]- 3834 Sep, [facility] [place] [facility] [address] [id number] [place] [address]- 0926 Sep, [facility] [place] [facility] [address] [id number] [place] [address]- 3368 Sep, [facility] [place] [facility] [address] [id number] [place] [address]- 0922 Sep, [facility] [place] [facility] [address] [id number] [place] [address]- 4447 Sep, [facility] [place] [facility] [address] [id number] [place] [address]- 7838 Sep, [facility] [place] [facility] [address] [id number] [place] [address]- 7435 Aug, [facility] [place] [facility] [address] [id number] [place] [address]- 4427 Aug, [facility] [place] [facility] [address] [id number] [place] [address]- 1374 Aug, [facility] [place] [facility] [address] [id number] [place] [address]- 1262 Aug, [facility] [place] [facility] [address] [id number] [place] [address]- 2400 June, [facility] [place] [facility] [address] [id number] [place] [address]- 1135 May, [facility] [place] [facility] [address] [id number] [place] [address]- 7942 May, [facility] [place] [facility] [address] [id number] [place] [address]- 7272 May, [facility] [place] [facility] [address] [id number] [place] [address]- 3947 18 May, 2013 [facility] [place] [facility] [address] [id number] [place] [address]- 1134 17 May, 2013 [facility] [place] [facility] [address] [id number] [place] [address]- 4244 17 May, 2013 [facility] [place] [facility] [address] [id number] [place] [address]- 5590 16 May, 2013 [facility] [place] [facility] [address] [id number] [place] [address]- 7067 16 May, 2013 [facility] [place] [facility] [address] [id number] [place] [address]- 5501 14 May, 2013 [facility] [place] [facility] [address] [id number] [place] [address]- 1530 May, [facility] [place] [facility] [address] [id number] [place] [address]- 4995 May, [facility] [place] [facility] [address] [id number] [place] [address]- 3284 14 May, 2013 [facility] [place] [facility] [address] [id number] [place] [address]- 2636 Apr, [facility] [place] [facility] [address] [id number] [place] [address]- 1486 Apr, [facility] [place] [facility] [address] [id number] [place] [address]- 0216 Mar, [facility] [place] [facility] [address] [id number] [place] [address]- 0525 Mar, [facility] [place] [facility] [address] [id number] [place] [address]- 0002 Dec, [facility] [place] [facility] [address] [id number] [place] [address]- 9265 Dec, [facility] [place] [facility] [address] [id number] [place] [address]- 5468 Dec, [facility] [place] [facility] [address] [id number] [place] [address]- 1319 Dec, [facility] [place] [facility] [address] [id number] [place] [address]- 4428 Nov, [facility] [place] [facility] [address] [id number] [place] [address]- 2238 Nov, [facility] [place] [facility] [address] [id number] [place] [address]- 3204 30 Oct, 2012 [facility] [place] [facility] [address] [id number] [place] [address]- 4077 Oct, [facility] [place] [facility] [address] [id number] [place] [address]- 7499 Aug, [facility] [place] [facility] [address] [id number] [place] [address]- 1369 Aug, [facility] [place] [facility] [address] [id number] [place] [address]- 8839 Aug, [facility] [place] [facility] [address] [id number] [place] [address]- 6784 Jul, [facility] [place] [facility] [address] [id number] [place] [address]- 9572 June, [facility] [place] [facility] [address] [id number] [place] [address]- 2090 June, [facility] [place] [facility] [address] [id number] [place] [address]- 9839 Apr, [facility] [place] [facility] [address] [id number] [place] [address]- 9056 Mar, [facility] [place] [facility] [address] [id number] [place] [address]- 8002 Mar, [facility] [place] [facility] [address] [id number] [place] [address]- 5394 Mar, [facility] [place] [facility] [address] [id number] [address]- 3036 08 Mar, 2012 [facility] [address] [id number] [place] [address]- 5278 Mar, [facility] [address] [id number] [place] [address]- 9489 Feb, [facility] [address] [id number] [place] [address]- 7512 Feb, [facility] [place] [facility] [address] [id number] [place] [address]- 8446 Feb, [facility] [address] [id number] [place] [address]- 9020 Feb, [facility] [address] [id number] [place] 5438 Jan, [facility] [address] [id number] [place] 2579 Jan, [facility] [address] [id number] [place] [address]- 5168 Dec, [facility] [address] [id number] [place] [address]- 9058 Dec, [facility] [address] [id number] [place] [address]- 0139 Dec, [facility] [address] [id number] [address]- 6633 Dec, [facility] [place] [facility] [address] [id number] [place] [address]- 9069 Oct, [facility] [place] [facility] [address] [id number] [place] [address]- 2367 Aug, [facility] [place] [facility] [address] [id number] [place] [address]- 9686 Jul, [facility] [place] [facility] [address] [id number] [place] [address]- 4182 June, [facility] [place] [facility] [address] [id number] [place] [address]- 8356 June, [facility] [address] [id number] [place] [address]- 6226 June, [facility] [address] [id number] [place] [address]- 2546 June, [facility] [address] [id number] [place] [address]- 0996 June, [facility] [address] [id number] [place] [address]- 8256 May, [facility] [address] [id number] [place] [address]- 9116 May, [facility] [address] [id number] [place] [address]- 7496 Apr, [facility] [address] [id number] [place] [address] [address] Apr, [facility] [address] [id number] [place] [address] [address] Mar, [facility] [address] [id number] [place] [address] [address] Feb, [facility] [address] [id number] [place] [address] [address] Nov, [facility] [address] [id number] [place] [address] [address] Nov, [facility] [address] [id number] [place] [address] Nov, [facility] [address] [id number] [place] [address] 17 Apr, [address] [facility] [address] [id number] [place] [address] Jan, [facility] [address] [id number] [place] [address] Dec, [facility] [address] [id number] [place] [address] 11 Dec, 2009 [facility] [address] [id number] [place] [address] 29 Nov, 2009 [facility] [address] [id number] [place] [address] June, [facility] [address] [id number] [place] [address] 29 Jan, 2009 [facility] [address] [id number] [place] [address] 28 Jan, 2009 [facility] [address] [id number] [place] [address] 23 Jan, 2009 [facility] [address] [facility] [id number] [place] [address] 22 Jan, 2009 [facility] [address] [id number] [address] 16 Jan, 2009 [facility] [address] [id number] [place] [address] 15 Jan, 2009 [facility] [address] [facility] [id number] [place] [address] 15 Jan, 2009 [facility] [place] [facility] [address] [id number] [address] 11 Jan, 2009 [facility] [place] [facility] [address] [id number] [address] 11 Jan, 2009 [facility] [place] [facility] [address] [id number] [place] [address] 10 Jan, 2009 [facility] [place] [facility] [address] [id number] [address] 04 Jan, 2009 [facility] [place] [facility] [address] [facility] [id number] [place] 02 Jan, 2009 [facility] [place] [facility] [address] [facility] [id number] [place] [address] Dec, [facility] [address] [id number] [address] Dec, [facility] [address] [id number] [address] Dec, [facility] [address] [id number] [address] Dec, [facility] [address] [id number] [address] Nov, [facility] [address] [id number] [address] Oct, IMMUNIZATIONS No Known Immunizations SOCIAL HISTORY Never Assessed REASON FOR VISIT Medication refill request PLAN OF CARE VITAL SIGNS MEDICATIONS Medication Instructions Dosage Frequency Start Date End Date Duration Status Atorvastatin Calcium 10 MG Orally Once a day 1 tablet 24h 90 days Active Seroquel 50 MG Orally Once a day 3 Tablets 24h Jan, 30 days Active Insulin Syringe 31G X 5/16 as directed Jan, Active RESULTS No Results PROCEDURES No Known [...] left knee pseudogout status post joint fluid analysis-[facility] 09/20/16
--- OUTSIDE RECORDS SUMMARY | 2017-12-06 13:50 | XMS REPORT ---
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 453244621 Problem Type 2 diabetes mellitus with hyperglycemia E11.65 Active 896776418212515 Problem Chronic kidney disease, stage 3 N18.3 Active 915721308 Problem Gout, unspecified M10.9 Active 90138586 Problem Insomnia, unspecified G47.00 Active 812075415 Problem Coronary atherosclerosis of unspecified type of vessel, tatitlek or graft I25.10 Active 750225968 Problem Gastroesophageal reflux disease, esophagitis presence not specified K21.9 Active 987259668 Problem Primary osteoarthritis of left knee M17.12 Active 178349162384605 Problem Gout of left knee due to renal impairment, unspecified chronicity M10.362 Active 083804499 Problem Mixed hyperlipidemia E78.2 Active 366442492 Problem 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 999646654 Problem Pseudogout M11.20 Active 168482570 Problem Mood disorder F39 Active 05294858 ALLERGIES No Information ENCOUNTERS Encounter Location Date Diagnosis [place] [id number] [place] [address] 27190- 5444 June, Type 2 diabetes mellitus with hyperglycemia E11.65 [place] [id number] [place] [address] 49332- 7023 May, Mood disorder F39 ; Gastroesophageal reflux disease, esophagitis presence not specified K21.9 ; Gout, unspecified M10.9 ; Coronary atherosclerosis of unspecified type of vessel, tatitlek or graft I25.10 and Type 2 diabetes mellitus with hyperglycemia E11.65 [place] [id number] [address] 2268 May, Type 2 diabetes mellitus with hyperglycemia E11.65 [place] [id number] [place] [address] 51889- 3763 Apr, Diabetes E11.9 and Mood disorder F39 [facility] [id number] [place] [address] 68146- 2118 15 Mar, 2017 Primary osteoarthritis of left knee M17.12 and Tear of lateral meniscus of left knee, unspecified tear type, unspecified whether old or current tear, initial encounter S83.282A [place] [id number] [place] [address] 43494- 3395 Feb, Mood disorder F39 [place] [id number] [place] [address] 90238- 8688 Feb, Pseudogout M11.20 [place] [id number] [place] [address] 40278- 9189 Jan, 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 [facility] [id number] [place] [address] 80554 -5823 Jan, [place] [id number] [place] [address] 45017- 0788 Jan, Pseudogout M11.20 ; Type 2 diabetes mellitus with hyperglycemia E11.65 and Other custodial (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 [place] [id number] [place] [address] 22333- 4834 Jan, Gout of left knee due to renal impairment, unspecified chronicity M10.362 ; Type 2 diabetes mellitus with diabetic nephropathy E11.21 ; Synovial cyst of popliteal space [Mejia], left knee M71.22 and Low back pain M54.5 [place] [id number] [place] [address] 48294- 2528 Dec, Pseudogout M11.20 [place] [id number] [place] [address] 48658- 3352 Dec, [place] [id number] [place] [address] 33538- 4420 Dec, Type 2 diabetes mellitus with diabetic nephropathy E11.21 and Right anterior knee pain M25.561 [place] [id number] [place] [address] 46208- 6579 Nov, Pseudogout M11.20 [place] [id number] [place] [address] 58372- 0596 Nov, Pseudogout M11.20 ; Chronic kidney disease, stage 3 N18.3 ; Mixed hyperlipidemia E78.2 ; Gout, unspecified M10.9 ; Coronary atherosclerosis of unspecified type of vessel, tatitlek or graft I25.10 ; Mood disorder F39 and Gastroesophageal reflux disease, esophagitis presence not specified K21.9 [place] [id number] [place] [address] 21254- 2624 Nov, [place] [id number] [place] [address] 93496- 6396 Oct, Pseudogout M11.20 [place] [id number] [place] [address] 71692- 1881 Sep, Pseudogout M11.20 [place] [id number] [place] [address] 78644- 5989 Sep, Pseudogout M11.20 [place] [id number] [place] [address] 34016- 3523 Sep, [facility] [id number] [place] [address] [id number] Aug, [place] [address] 17830- 2039 Aug, Diabetes E11.9 ; Chronic kidney disease, stage 3 N18.3 ; Hyperuricemia E79.0 ; Mixed hyperlipidemia E78.2 ; Gastroesophageal reflux disease, esophagitis presence not specified K21.9 ; Gout, unspecified M10.9 ; Coronary atherosclerosis of unspecified type of vessel, tatitlek or graft I25.10 and Mood disorder F39 [facility] [id number] [place] [address] 84131- 7144 June, [facility] [id number] [place] [address] 96483- 9788 June, [facility] [id number] [place] [address] 22431- 9680 June, [facility] [id number] [place] [address] 58679- 7850 May, Chronic renal failure, stage 3 (moderate) N18.3 [facility] [id number] [place] [address] 75751- 8787 May, Diabetes E11.9 [facility] [id number] [place] [address] 21400- 9802 May, [facility] [id number] [place] [address] 45523- 4598 Apr, [facility] [id number] [place] [address] 30445- 2610 Apr, [facility] [id number] [place] [address] 23967- 8823 Apr, Cellulitis of right lower extremity L03.115 and Diabetes E11.9 [facility] [id number] [place] [address] 73139- 5839 Apr, Type 2 diabetes mellitus with hyperglycemia E11.65 [facility] [id number] [place] [address] 18934- 4274 Mar, Cellulitis of right lower extremity L03.115 and Low back pain M54.5 [facility] [id number] [place] [address] 41256- 5408 Mar, [facility] [id number] [place] [address] 27205- 2325 Mar, Cellulitis of right lower extremity L03.115 [facility] [address] [address]- 3509 Mar, Cellulitis of right lower extremity L03.115 [facility] [address] [address]- 6193 Feb, Cellulitis of right lower extremity L03.115 [place] [id number] [place] [address] 39262- 1823 Feb, Cellulitis of right lower extremity L03.115 [place] [address] [address]- 6377 Feb, [place] [id number] [place] [address] 53222- 6682 Feb, Leukocytosis, unspecified type D72.829 ; Chronic renal failure, stage 3 (moderate) N18.3 and Type 2 diabetes mellitus with hyperglycemia E11.65 [place] [address], [place] [address]- 4528 Feb, Leukocytosis, unspecified type D72.829 [place] [address] [address]- 6684 Feb, [place] [id number] [place] [address] 43490- 9752 Feb, Cellulitis of right lower extremity L03.115 ; Thrush B37.0 ; Gout of left knee due to renal impairment, unspecified chronicity M10.362 and Chronic renal failure, stage 3 (moderate) N18.3 [place] [address] [address]- 7260 Feb, [place] [id number] [place] [address] 95760- 2287 Feb, Right foot infection L08.9 ; Type 2 diabetes mellitus with hyperglycemia E11.65 ; Arthralgia of left knee M25.562 ; Chronic kidney disease , stage 3 N18.3 and Diabetes E11.9 [place] [id number] [place] [address] 14631- 5571 Feb, [place] [address] 57837- 0180 Feb, Diabetes E11.9 ; Arthralgia of left knee M25.562 and Thrush B37.0 [place] [address] 85871- 3929 Jan, [place] [address] 26170- 8842 Jan, Type 2 diabetes mellitus with hyperglycemia E11.65 ; Chronic renal failure, stage 3 (moderate) N18.3 and Leukocytosis, unspecified type D72.829 [place] [id number] [place] [address] 08867- 9938 Jan, Type 2 diabetes mellitus with hyperglycemia E11.65 [place] [id number] [place] [address] 36681- 4442 Dec, Gout of left knee due to renal impairment, unspecified chronicity M10.362 [place] [id number] [place] [address] 99302- 2807 Dec, Gout of left knee due to renal impairment, unspecified chronicity M10.362 and Diabetes E11.9 [place] [id number] [place] [address] 02857- 6328 Dec, [place] [id number] [place] [address] 67616- 6090 Dec, 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 [id number] [place] [address] 64758 -1685 Dec, Leukocytosis, unspecified type D72.829 ; Chronic renal failure, stage 3 (moderate) N18.3 and Nausea R11.0 [place] [id number] [place] [address] 73544- 0724 Nov, [place] [address] 08299- 0654 Jul, [place] [address] 89962- 8433 Jul, Diabetes E11.9 ; Low back pain M54.5 and Other chronic pain G89.29 [place] [id number] [place] [address] 92447- 3485 June, [place] [address] 06749- 3142 June, [place] [address] 27330- 5249 Jan, Viral illness B34.[address] 39995- 9249 Jan, Type 2 diabetes mellitus with hyperglycemia E11.65 ; Pain in right foot M79.671 and Localized edema R60.0 [place] [id number] [place] [address] 62647- 0976 Jan, [place] [address] 98355- 4080 Dec, Right foot pain M79.671 ; Insomnia, unspecified type G47.00 and Diabetes E11.9 [place] [id number] [place] [address] 25814- 8841 16 Dec, 2014 Pain in right foot M79.671 [place] [address] 39563- 6785 Nov, [facility] [address] [id number] [place] [address]- 6607 Sep, [facility] [address] [facility] [id number] [place] [address]- 3734 Sep, Diabetes mellitus, type II 250.00 [facility] [address] [facility] [id number] [place] [address]- 3346 May, [facility] [address] [facility] [id number] [place] [address]- 5485 May, [facility] [address] [id number] [place] [address]- 4403 Apr, [facility] [address] [facility] [id number] [place] [address]- 8621 Apr, [facility] [address] [facility] [id number] [place] [address]- 6968 16 Apr, 2014 [facility] [address] [facility] [id number] [place] [address]- 1296 16 Apr, 2014 [facility] [address] [facility] [id number] [place] [address]- 1087 Apr, [facility] [address] [facility] [id number] [place] [address]- 3473 Apr, [facility] [address] [facility] [id number] [place] [address]- 7122 05 Apr, 2014 [facility] [place] [facility] [address] [id number] [address]- 3098 05 Apr, 2014 [facility] [place] [facility] [address] [id number] [place] [address]- 9819 Jan, [facility] [place] [facility] [address] [facility] [id number] [place] [address]- 6048 18 Jan, 2014 [facility] [place] [facility] [address] [facility] [id number] [place] [address]- 2370 15 Jan, 2014 [facility] [place] [facility] [address] [facility] [id number] [place] [address]- 5139 15 Jan, 2014 [facility] [place] [facility] [address] [id number] [place] [address]- 7243 Dec, [facility] [place] [facility] [address] [id number] [place] [address]- 3258 Dec, [facility] [place] [facility] [address] [id number] [place] [address]- 8100 Nov, [facility] [place] [facility] [address] [id number] [place] [address]- 7164 Nov, [facility] [place] [facility] [address] [id number] [place] [address]- 9787 Oct, [facility] [place] [facility] [address] [id number] [place] [address]- 9716 Oct, [facility] [place] [facility] [address] [id number] [place] [address]- 0996 Oct, [facility] [place] [facility] [address] [id number] [place] [address]- 9308 Oct, [facility] [place] [facility] [address] [id number] [place] [address]- 1142 Sep, [facility] [place] [facility] [address] [id number] [place] [address]- 1541 Sep, [facility] [place] [facility] [address] [id number] [place] [address]- 4042 Sep, [facility] [place] [facility] [address] [id number] [place] [address]- 2392 Sep, [facility] [place] [facility] [address] [id number] [place] [address]- 4256 Sep, [facility] [place] [facility] [address] [id number] [place] [address]- 0730 Sep, [facility] [place] [facility] [address] [id number] [place] [address]- 6509 Sep, [facility] [place] [facility] [address] [id number] [place] [address]- 7797 Sep, [facility] [place] [facility] [address] [id number] [place] [address]- 6891 Sep, [facility] [place] [facility] [address] [id number] [place] 3482 Sep, [facility] [place] [facility] [address] [id number] [place] [address]- 3565 Sep, [facility] [place] [facility] [address] [id number] [place] [address]- 3082 Sep, [facility] [place] [facility] [address] [id number] [place] [address]- 1552 Aug, [facility] [place] [facility] [address] [id number] [place] [address]- 4193 Aug, [facility] [place] [facility] [address] [id number] [place] [address]- 5007 Aug, [facility] [place] [facility] [address] [id number] [place] [address]- 5164 Aug, [facility] [place] [facility] [address] [id number] [place] [address]- 2601 June, [facility] [place] [facility] [address] [id number] [place] [address]- 7011 May, [facility] [place] [facility] [address] [id number] [place] [address]- 1715 May, [facility] [place] [facility] [address] [id number] [place] [address]- 8469 May, [facility] [place] [facility] [address] [id number] [place] [address]- 4549 May, [facility] [place] [facility] [address] [id number] [place] 1897 May, [facility] [place] [facility] [address] [id number], [place] [address]- 9163 17 May, 2013 [facility] [place] [facility] [address] [id number] [place] [address]- 2437 16 May, 2013 [facility] [place] [facility] [address] [id number] [place] [address]- 4661 16 May, 2013 [facility] [place] [facility] [address] [id number] [place] [address]- 7185 May, [facility] [place] [facility] [address] [id number] [place] [address]- 3127 May, [facility] [place] [facility] [address] [id number] [place] [address]- 2661 May, [facility] [place] [facility] [address] [id number] [place] [address]- 5859 May, [facility] [place] [facility] [address] [facility] [id number] [place] [address]- 7381 Apr, [facility] [place] [facility] [address] [id number] [place] [address]- 2183 Apr, [facility] [place] [facility] [address] [id number] [place] [address]- 5348 Mar, [facility] [place] [facility] [address] [facility] [id number] [place] [address]- 6046 Mar, [facility] [place] [facility] [address] [id number], [place] [address]- 0425 Dec, [facility] [place] [facility] [address] [id number], [place] [address]- 4455 Dec, [facility] [place] [facility] [address] [id number] [place] [address]- 8145 Dec, [facility] [place] [facility] [address] [id number] [place] [address]- 4760 Dec, [facility] [place] [facility] [address] [facility] [id number] [place] [address]- 6677 Nov, [facility] [place] [facility] [address] [id number] [place] [address]- 9229 25 Nov, 2012 [facility] [place] [facility] [address] [id number] [place] [address]- 4320 30 Oct, 2012 [facility] [place] [facility] [address] [id number] [place] [address]- 0516 Oct, [facility] [place] [facility] [address] [id number] [place] [address]- 8994 Aug, [facility] [place] [facility] [address] [id number] [place] [address]- 6638 Aug, [facility] [place] [facility] [address] [id number] [place] [address]- 0887 Aug, [facility] [place] [facility] [address] [id number] [place] [address]- 7403 Jul, [facility] [place] [facility] [address] [id number] [place] [address]- 1944 June, [facility] [place] [facility] [address] [id number] [place] [address]- 3698 June, [facility] [place] [facility] [address] [id number] [place] [address]- 4618 Apr, [facility] [place] [facility] [address] [id number] [place] [address]- 4011 Mar, [facility] [place] [facility] [address] [id number] [place] [address]- 5773 Mar, [facility] [place] [facility] [address] [id number] [place] [address]- 9109 Mar, [facility] [place] [facility] [address] [id number] [place] [address]- 5443 Mar, [facility] [place] [facility] [address] [id number] [place] [address]- 0421 Mar, [facility] [place] [facility] [address] [id number] [place] [address]- 0068 Feb, [facility] [address] [id number] [place] [address]- 8203 Feb, [facility] [place] [facility] [address] [id number] [place] [address]- 5203 Feb, [facility] [place] [facility] [address] [id number] [place] [address]- 8800 Feb, [facility] [place] [facility] [address] [id number] [place] [address]- 5392 Jan, [facility] [place] [facility] [address] [id number] [place] 3793 Jan, [facility] [place] [facility] [address] [id number] [place] [address]- 1667 Dec, [facility] [place] [facility] [address] [id number] [place] [address]- 3791 Dec, [facility] [place] [facility] [address] [id number] [place] [address]- 4733 Dec, [facility] [place] [facility] [address] [id number] [place] [address]- 0924 Dec, [facility] [place] [facility] [address] [id number] [place] [address]- 3876 Oct, [facility] [place] [facility] [address] [id number] [place] [address]- 4374 Aug, [facility] [place] [facility] [address] [id number] [place] [address]- 1403 Jul, [facility] [place] [facility] [address] [id number] [place] [address]- 8883 June, [facility] [place] [facility] [address] [id number] [place] [address]- 5507 June, [facility] [place] [facility] [address] [id number] [place] [address] June, [facility] [place] [facility] [address] [id number] [place] [address] June, [facility] [address] [id number] [place] [address] June, [facility] [place] [facility] [address] [id number] [place] [address] May, [facility] [address] [id number] [place] [address] May, [facility] [address] [id number] [place] [address] Apr, [facility] [address] [id number] [place] [address] Apr, [facility] [address] [id number] [place] [address] Mar, [facility] [address] [id number] [place] [address] Feb, [facility] [address] [id number] [place] [address] Nov, [facility] [address] [id number] [place] [address] Nov, [facility] [address] [facility] [id number] [place] [address] Nov, [facility] [address] [id number] [place] [address] 17 Apr, 2010 [facility] [address] [id number] [place] [address] Jan, [facility] [place] [facility] [address] [id number] [place] [address] Dec, [facility] [place] [facility] [address] [id number] [place] [address] Dec, [facility] [place] [facility] [address] [id number] [place] [address] 29 Nov, 2009 [facility] [address] [id number] [place] [address] June, [facility] [address] [id number] [place] [address] 29 Jan, 2009 [facility] [address] [id number] [place] [address] 28 Jan, 2009 [facility] [address] [id number] [place] [address] 23 Jan, 2009 [facility] [address] [id number] [place] [address] 22 Jan, 2009 [facility] [address] [id number] [place] [address] 16 Jan, 2009 [facility] [address] [facility] [id number] [place] [address] 15 Jan, 2009 [facility] [address] [id number], [place] [address] 15 Jan, 2009 [facility] [address] [id number] [place] [address] 11 Jan, 2009 [facility] [address] [id number], [place] [address] 11 Jan, 2009 [facility] [address] [id number], [place] [address] 10 Jan, 2009 [facility] [place] [facility] [address] [id number], [place] [address] 04 Jan, 2009 [facility] [place] [facility] [address] [id number] [place] [address] 02 Jan, 2009 [facility] [place] [facility] [address] [id number], [place] [address] 25 Dec, 2008 [facility] [place] [facility] [address] [id number], [place] [address] 19 Dec, 2008 [facility] [place] [facility] [address] [facility] [id number] [place] [address] Dec, [facility] [address] [facility] [id number] [place] [address] Dec, [facility] [address] [facility] [id number] [place] [address] Nov, [facility] [address] [facility] [id number] [place] [address] Oct, IMMUNIZATIONS No Known Immunizations SOCIAL HISTORY Never Assessed REASON FOR VISIT Missed Appointment PLAN OF CARE VITAL SIGNS MEDICATIONS [...]
--- OUTSIDE RECORDS SUMMARY | 2017-12-06 13:51 | XMS REPORT ---
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 Active 847857500 Problem Type 2 diabetes mellitus with hyperglycemia E11.65 Active [id number] Problem Chronic kidney disease, stage 3 N18.3 Active 974576538 Problem Gout, unspecified M10.9 Active 21764287 Problem Insomnia, unspecified G47.00 Active 986507809 Problem Coronary atherosclerosis of unspecified type of vessel, umkumiut or graft I25.10 Active 431525149 Problem Gastroesophageal reflux disease, esophagitis presence not specified K21.9 Active 583528387 Problem Primary osteoarthritis of left knee M17.12 Active [id number] Problem Gout of left knee due to renal impairment, unspecified chronicity M10.362 Active 754389455 Problem Mixed hyperlipidemia E78.2 Active 254128069 Problem 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 452311111 Problem Pseudogout M11.20 Active 873397196 Problem Mood disorder F39 Active 37920393 ALLERGIES Substance Reaction Event Type Date Status Acetaminophen-Codeine #3 Failed Ameritox UDS- THC Drug Allergy Aug, Active ENCOUNTERS Encounter Location Date Diagnosis [facility] [place] [address] [facility] [id number], [place] [address] May, [facility] [place] [address] [facility] [id number], [place] [address] Apr, Diabetes E11.9 and Mood disorder F39 [facility] [place] [address] [facility] [id number], [place] [address] 15 Mar, 2017 Primary osteoarthritis of left knee M17.12 and Tear of lateral meniscus of left knee, unspecified tear type, unspecified whether old or current tear, initial encounter S83.282A [place] [address] [id number] [place] [address] 00852- 4332 Feb, Mood disorder F39 [facility] [place] [id number] [place] [address] 46534- 1463 Feb, Pseudogout M11.20 [place] [address] [id number] [place] [address] 73578- 2104 Jan, 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 [id number] [place] [address] 37422 -6691 Jan, [place] [address] [id number] [place] [address] 31375- 2617 Jan, Pseudogout M11.20 ; Type 2 diabetes mellitus with hyperglycemia E11.65 and Other longterm (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 [place] [address] [id number] [place] [address] 28280- 2720 18 Jan, 2017 Gout of left knee due to renal impairment, unspecified chronicity M10.362 ; Type 2 diabetes mellitus with diabetic nephropathy E11.21 ; Synovial cyst of popliteal space [Mejia], left knee M71.22 and Low back pain M54.5 [place] [address] [place] [address] 86707- 2135 Dec, Pseudogout M11.20 [place] [id number], [place] [address] 4558 14 Dec, 2016 [place] [address] [id number] [place] [address] 33189- 5057 13 Dec, 2016 Type 2 diabetes mellitus with diabetic nephropathy E11.21 and Right anterior knee pain M25.561 [place] [address] [id number] [place] [address] 35333- 5890 Nov, Pseudogout M11.20 [place] [address] [id number] [place] [address] 59105- 4067 Nov, Pseudogout M11.20 ; Chronic kidney disease, stage 3 N18.3 ; Mixed hyperlipidemia E78.2 ; Gout, unspecified M10.9 ; Coronary atherosclerosis of unspecified type of vessel, umkumiut or graft I25.10 ; Mood disorder F39 and Gastroesophageal reflux disease, esophagitis presence not specified K21.9 [place] [address] 20000- 9327 Nov, [place] [address] 68579- 6825 Oct, Pseudogout M11.20 [place] [address] 01386- 1514 Sep, Pseudogout M11.20 [place] [address] 49939- 9567 Sep, Pseudogout M11.20 [place] [address] [id number] [place] [address] 25523- 4131 Sep, [facility] [address] [id number] Aug, [place] [address] [id number] [place] [address] 45317- 9351 Aug, Diabetes E11.9 ; Chronic kidney disease, stage 3 N18.3 ; Hyperuricemia E79.0 ; Mixed hyperlipidemia E78.2 ; Gastroesophageal reflux disease, esophagitis presence not specified K21.9 ; Gout, unspecified M10.9 ; Coronary atherosclerosis of unspecified type of vessel, umkumiut or graft I25.10 and Mood disorder F39 [place] [id number] [place] [address] 06230- 0187 June, [facility] [place] [address] [id number] [place] [address] 90730- 8749 June, [facility] [place] [id number] [place] [address] 41286- 5784 June, [facility] [place] [address] [place] [address] 11543- 1447 May, Chronic renal failure, stage 3 (moderate) N18.3 [facility] [place] [id number] [place] [address] 02391- 7484 May, Diabetes E11.9 [facility] [place] [id number] [place] [address] 48732- 3628 May, [facility] [place] [address] [id number] [place] [address] 80304- 8028 Apr, [facility] [place] [address] [id number] [place] [address] 13721- 5308 Apr, [facility] [place] [id number] [place] [address] 93163- 7645 Apr, Cellulitis of right lower extremity L03.115 and Diabetes E11.9 [facility] [place] [address] [id number] [place] [address] 29493- 0377 Apr, Type 2 diabetes mellitus with hyperglycemia E11.65 [facility] [place] [address] [id number] [place] [address] 96435- 9930 Mar, Cellulitis of right lower extremity L03.115 and Low back pain M54.5 [place] [id number] [place] [address] 37089- 1593 Mar, [facility] [place] [id number] [place] [address] 04192- 5648 Mar, Cellulitis of right lower extremity L03.115 [facility] [place] [id number] [place] [address] 81456- 1617 Mar, Cellulitis of right lower extremity L03.115 [facility] [place] [address] [place] [address] 42062- 1594 Feb, Cellulitis of right lower extremity L03.115 [facility] [place] [address] [id number] [address]- 8839 Feb, Cellulitis of right lower extremity L03.115 [place] [address], [place] [address]- 8268 Feb, [place] [address] [address]- 9930 Feb, Leukocytosis, unspecified type D72.829 ; Chronic renal failure, stage 3 (moderate) N18.3 and Type 2 diabetes mellitus with hyperglycemia E11.65 [place] [address], [place] [address]- 8013 Feb, Leukocytosis, unspecified type D72.829 [place] [address], [place] [address]- 5602 Feb, [place] [address] [address]- 4656 Feb, Cellulitis of right lower extremity L03.115 ; Thrush B37.0 ; Gout of left knee due to renal impairment, unspecified chronicity M10.362 and Chronic renal failure, stage 3 (moderate) N18.3 [place] [address], [place] [address]- 8490 Feb, [place] [address], [place] [address]- 7565 Feb, Right foot infection L08.9 ; Type 2 diabetes mellitus with hyperglycemia E11.65 ; Arthralgia of left knee M25.562 ; Chronic kidney disease , stage 3 N18.3 and Diabetes E11.9 [place] [address], [place] [address]- 7771 Feb, [place] [address] [place] [address] 79218- 0015 Feb, Diabetes E11.9 ; Arthralgia of left knee M25.562 and Thrush B37.0 [place] [address] [place] [address] 19717- 7753 Jan, [facility] [place] [address], [place] [address]- 1319 Jan, Type 2 diabetes mellitus with hyperglycemia E11.65 ; Chronic renal failure, stage 3 (moderate) N18.3 and Leukocytosis, unspecified type D72.829 [place] [address], [place] [address]- 0011 Jan, Type 2 diabetes mellitus with hyperglycemia E11.65 [place] [address] [id number] [place] [address] 42011- 7581 Dec, Gout of left knee due to renal impairment, unspecified chronicity M10.362 [place] [id number] [place] [address] 95591- 4867 Dec, Gout of left knee due to renal impairment, unspecified chronicity M10.362 and Diabetes E11.9 [place] [id number] [place] [address] 71088- 1724 Dec, [place] [id number] [place] [address] 52520- 3011 Dec, [facility] [place] [id number] [place] [address] 78972 -3150 Dec, [place] [id number] [place] [address] 77813- 1031 Dec, Chronic kidney disease, stage 3 N18.3 ; Type 2 diabetes mellitus with diabetic nephropathy E11.21 ; Type 2 diabetes mellitus with hyperglycemia E11.65 and half-way 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 [facility] [address] [place] [address] 79508 -0598 Dec, Leukocytosis, unspecified type D72.829 ; Chronic renal failure, stage 3 (moderate) N18.3 and Nausea R11.0 [place] [address], [place] [address]- 4039 Nov, [place] [address] [place] [address]- 1900 07 Jul, 2015 [facility] [place] [id number] [place] [address] 58922- 4774 Jul, Diabetes E11.9 ; Low back pain M54.5 and Other chronic pain G89.29 [facility] [place] [address] 08420- 1568 June, [facility] [place] [address] 30824- 4182 June, [facility] [place] [address] 92025- 6593 Jan, Viral illness B34.9 [place] [address] 30253- 7943 Jan, Type 2 diabetes mellitus with hyperglycemia E11.65 ; Pain in right foot M79.671 and Localized edema R60.0 [place] [address] 68302- 4760 Jan, [facility] [place] [address] 96437- 6205 Dec, Right foot pain M79.671 ; Insomnia, unspecified type G47.00 and Diabetes E11.9 [place] [address] [id number] [place] [address] 13942- 0204 Dec, Pain in right foot M79.671 [facility] [place] [address] [id number] [place] [address] 07269- 8789 Nov, [facility] [place] [address] 50195- 0044 Sep, [facility] [place] [address] 32560- 9299 Sep, Diabetes mellitus, type II 250.00 [facility] [place] [address] [id number] [place] [address] 48241- 2747 May, [facility] [place] [facility] [address] [id number] [place] [address]- 6293 13 May, 2014 [facility] [place] [facility] [address] [id number] [place] [address]- 3575 19 Apr, 2014 [facility] [place] [facility] [address] [id number] [place] [address]- 7846 19 Apr, 2014 [facility] [place] [facility] [address] [id number] [place] [address]- 8141 16 Apr, 2014 [facility] [place] [facility] [address] [id number] [place] [address]- 7554 16 Apr, 2014 [facility] [place] [facility] [address] [id number] [place] [address]- 9305 12 Apr, 2014 [facility] [place] [facility] [address] [id number] [place] [address]- 6337 12 Apr, 2014 [facility] [place] [facility] [address] [id number] [place] [address]- 3998 05 Apr, 2014 [facility] [place] [facility] [address] [id number] [place] [address]- 7005 05 Apr, 2014 [facility] [place] [facility] [address] [id number] [place] [address]- 1957 18 Jan, 2014 [facility] [place] [facility] [address] [id number] [place] [address]- 9222 18 Jan, 2014 [facility] [place] [facility] [address] [id number] [place] [address]- 3838 15 Jan, 2014 [facility] [place] [facility] [address] [id number] [place] [address]- 0887 15 Jan, 2014 [facility] [place] [facility] [address] [id number] [place] [address]- 1328 10 Dec, 2013 [facility] [place] [facility] [address] [id number] [place] [address]- 5906 10 Dec, 2013 [facility] [place] [facility] [address] [id number] [place] [address]- 1996 Nov, [facility] [place] [facility] [address] [id number] [place] [address]- 4105 Nov, [facility] [place] [facility] [address] [id number] [place] [address]- 8035 Oct, [facility] [place] [facility] [address] [id number] [place] [address]- 9794 Oct, [facility] [place] [facility] [address] [id number] [place] [address]- 8881 Oct, [facility] [place] [facility] [address] [id number] [place] [address]- 2914 Oct, [facility] [place] [facility] [address] [id number] [place] [address]- 2498 Sep, [facility] [place] [facility] [address] [id number] [place] [address]- 7513 Sep, [facility] [place] [facility] [address] [id number] [place] [address]- 9497 Sep, [facility] [place] [facility] [address] [id number] [place] [address]- 5881 Sep, [facility] [place] [facility] [address] [id number] [place] [address]- 6770 Sep, [facility] [place] [facility] [address] [id number], [place] [address]- 7042 Sep, [facility] [place] [facility] [address] [id number], [place] [address]- 7127 Sep, [facility] [place] [facility] [address] [id number] [place] [address]- 2336 Sep, [facility] [place] [facility] [address] [id number] [place] [address]- 9085 Sep, [facility] [place] [facility] [address] [id number] [place] [address]- 1612 Sep, [facility] [place] [facility] [address] [id number] [place] [address]- 4636 Sep, [facility] [place] [facility] [address] [id number] [place] 0571 Sep, [facility] [place] [facility] [address] [id number] [place] [address]- 0079 Aug, [facility] [place] [facility] [address] [id number] [place] 6663 Aug, [facility] [place] [facility] [address] [id number] [place] [address]- 3054 Aug, [facility] [place] [facility] [address] [id number] [place] [address]- 1195 Aug, [facility] [place] [facility] [address] [id number] [place] [address]- 9302 June, [facility] [place] [facility] [address] [id number] [place] [address]- 8295 May, [facility] [place] [facility] [address] [id number] [place] [address]- 8529 24 May, 2013 [facility] [place] [facility] [address] [id number] [place] [address]- 3144 May, [facility] [place] [facility] [address] [id number] [place] [address]- 2534 18 May, 2013 [facility] [place] [facility] [address] [id number] [place] [address]- 4752 17 May, 2013 [facility] [place] [facility] [address] [id number] [place] [address]- 1636 17 May, 2013 [facility] [place] [facility] [address] [id number] [place] [address]- 5349 16 May, 2013 [facility] [place] [facility] [address] [id number] [place] [address]- 2060 16 May, 2013 [facility] [place] [facility] [address] [id number] [place] [address]- 1871 14 May, 2013 [facility] [place] [facility] [address] [id number] [place] [address]- 6110 May, [facility] [place] [facility] [address] [id number] [place] [address]- 7068 May, [facility] [place] [facility] [address] [id number] [place] [address]- 7370 May, [facility] [place] [facility] [address] [id number] [place] [address]- 4006 Apr, [facility] [place] [facility] [address] [id number] [place] [address]- 3423 Apr, [facility] [place] [facility] [address] [id number] [place] [address]- 5873 Mar, [facility] [place] [facility] [address] [id number] [place] [address]- 0014 Mar, [facility] [place] [facility] [address] [id number] [place] [address]- 9400 Dec, [facility] [place] [facility] [address] [id number] [place] [address]- 2297 Dec, [facility] [place] [facility] [address] [id number] [place] [address]- 1691 Dec, [facility] [place] [facility] [address] [id number] [place] [address]- 0917 Dec, [facility] [place] [facility] [address] [id number], [place] [address]- 0252 Nov, [facility] [place] [facility] [address] [id number] [place] [address]- 9287 Nov, [facility] [place] [facility] [address] [id number] [place] [address]- 0379 30 Oct, 2012 [facility] [place] [facility] [address] [id number] [place] 7363 Oct, [facility] [place] [facility] [address] [id number], [place] [address]- 5038 Aug, [facility] [address] [id number] [place] [address]- 1779 Aug, [facility] [address] [id number] [place] [address]- 0327 Aug, [facility] [address] [id number] [place] [address]- 6694 Jul, [facility] [address] [id number] [place] [address]- 4932 June, [facility] [address] [id number] [place] [address]- 6852 June, [facility] [address] [id number] [place] [address]- 8626 Apr, [facility] [address] [id number] [place] [address]- 9553 Mar, [facility] [address] [id number] [place] [address]- 1643 Mar, [facility] [address] [id number] [place] [address]- 1505 Mar, [facility] [address] [id number] [place] [address]- 3412 Mar, [facility] [address] [id number] [place] [address]- 3125 Mar, [facility] [place] [facility] [address] [id number], [place] [address]- 9622 Feb, [facility] [place] [facility] [address] [id number] [place] [address]- 7014 Feb, [facility] [place] [facility] [address] [id number] [place] [address]- 7169 Feb, [facility] [place] [facility] [address] [id number], [place] [address]- 6087 Feb, [facility] [place] [facility] [address] [id number] [place] [address]- 8799 Jan, [facility] [address] [id number] [place] [address]- 9305 Jan, [facility] [place] [facility] [address] [id number] [place] [address]- 1673 Dec, [facility] [place] [facility] [address] [id number] [place] [address]- 6464 Dec, [facility] [address] [id number] [place] [address]- 3319 Dec, [facility] [place] [facility] [address] [id number] [place] [address] Dec, [facility] [address] [id number] [place] [address] Oct, [facility] [address] [id number] [place] [address] Aug, [facility] [address] [id number] [place] [address] Jul, [facility] [place] [facility] [address] [id number] [place] [address] June, [facility] [place] [facility] [address] [id number] [place] [address] June, [facility] [place] [facility] [address] [id number] [place] [address] June, [facility] [place] [facility] [address] [id number] [place] [address] June, [facility] [place] [facility] [address] [id number] [place] [address] June, [facility] [place] [facility] [address] [id number] [place] [address] May, [facility] [place] [facility] [address] [id number] [place] [address] 23 May, 2011 [facility] [place] [facility] [address] [id number] [place] [address]- [address] 15 Apr, 2011 [facility] [place] [facility] [address] [id number] [place] [address]- [address] 13 Apr, 2011 [facility] [place] [facility] [address] [id number] [place] [address] 27 Mar, 2011 [facility] [place] [facility] [address] [id number] [place] [address]- 49[address] Feb, [facility] [place] [facility] [address] [id number] [place] [address] 26 Nov, 2010 [facility] [place] [facility] [address] [id number] [place] [address]- [address] 13 Nov, 2010 [facility] [place] [facility] [address] [id number] [place] [address]- [address] 13 Nov, 2010 [facility] [place] [facility] [address] [id number] [place] [address]- [address] 17 Apr, 2010 [facility] [place] [facility] [address] [id number] [place] [address]- [address] 07 Jan, 2010 [facility] [place] [facility] [address] [id number] [place] [address] 24 Dec, 2009 [facility] [place] [facility] [address] [id number] [address] Dec, [facility] [place] [facility] [address] [id number] [place] [address]- [address] 29 Nov, 2009 [facility] [place] [facility] [address] [id number] [place] [address] June, [facility] [place] [facility] [address] [id number] [place] [address] 29 Jan, 2009 [facility] [place] [facility] [address] [id number] [place] [address]- [address] Jan, [facility] [place] [facility] [address] [id number] [place] [address] 23 Jan, 2009 [facility] [address] [facility] [id number] [place] [address] 22 Jan, 2009 [facility] [address] [id number] [place] [address] 16 Jan, 2009 [facility] [address] [facility] [id number] [place] [address] 15 Jan, 2009 [facility] [address] [id number] [place] [address] 2546 15 Jan, 2009 [facility] [address] [facility] [id number] [place] [address], [place] [address] 11 Jan, 2009 [facility] [address] [facility] [id number] [place] [address] 11 Jan, 2009 [facility] [address] [facility] [id number] [place] [address] 10 Jan, 2009 [facility] [address] [facility] [id number], [place] [address] 04 Jan, 2009 [facility] [address] [facility] [facility] [id number] [place] [address] 02 Jan, 2009 [facility] [address] [facility] [facility] [id number], [place] [address] 25 Dec, 2008 [facility] [address] [facility] [facility] [id number], [place] [address] 19 Dec, 2008 [facility] [address] [facility] [facility] [id number], [place] [address] 17 Dec, 2008 [facility] [address] [facility] [facility] [id number], [place] [address] 17 Dec, 2008 [facility] [address] [facility] [facility] [id number], [place] [address] 20 Nov, 2008 [facility] [address] [facility] [facility] [id number], [place] [address] Oct, IMMUNIZATIONS No Known Immunizations SOCIAL HISTORY Never Assessed REASON FOR VISIT Diabetes. Med refills needed. Knees and feet have been swelling. Pt will be going to see Nephrology specialist soon. KENNY Young PLAN OF CARE Activity Details Follow Up 3 Months Reason:DM VITAL SIGNS Height 73 in 2016-09-15 Weight 283 lbs 2016-09-15 Temperature 98.6 degrees Fahrenheit 2016-09-15 Heart Rate 72 bpm 2016-09-15 Respiratory Rate 20 2016-09-15 BMI 37.33 kg/m2 2016-09-15 Blood pressure systolic 150 mmHg 2016-09-15 Blood pressure diastolic 94 mmHg 2016-09-15 MEDICATIONS Medication Instructions Dosage Frequency Start Date End Date Duration Status Seroquel 50 mg Orally Once a day 3 Tablets 24h Jan, 30 days Active Esomeprazole Magnesium 40 MG Orally Once a day 1 capsule 24h May, 30 day(s) Active NovoLog 100 UNIT/ML Subcutaneous 3 times a day Inject 30 units with meals 8h Dec, Active Plavix 75 MG Orally Once a day 1 tablet 24h 90 days Active Toprol XL 50 MG Orally Once a day 1 tablet 24h 90 days Active Uloric 80 MG Orally Once a day 1 tablet 24h Aug, 90 days Active Omeprazole 40 MG Orally Once a day 1 capsule 24h 90 days Active Aspir-81 81 MG Orally Once a day 1 tablet 24h Active Glucometer as directed Dec, Active Uloric 80 MG Orally Once a day 1 tablet 24h Aug, Nov, 90 days Active Levemir FlexTouch 100 UNIT/ML Subcutaneous 2 times a day Inject 35 units 12h Jan, 53 days Active Insulin Syringe 31G X 5/16 as directed Jan, Active Atorvastatin Calcium 10 MG Orally Once a day 1 tablet 24h 90 days Active Trulicity 0.75 MG/0.5ML Inject 0.5 ml Jan, 160 days Active RESULTS Name Result Date Reference Range A1C (IN HOUSE) 2016-09-15 A1C IN HOUSE 8.4 4.3 - 5.6 % Previous A1c 11.1 Lot [id number] Exp date 05/2018 PROCEDURES Procedure Date Ordered Result Body Site GLYCATED HEMOGLOBIN TEST September 15, 2016 INSTRUCTIONS MEDICATIONS ADMINISTERED No Known Medications MEDICAL [...]
--- OUTSIDE RECORDS SUMMARY | 2017-12-06 13:51 | XMS REPORT ---
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 Active 982176693 Problem Type 2 diabetes mellitus with hyperglycemia E11.65 Active 887067826347458 Problem Chronic kidney disease, stage 3 N18.3 Active 398997599 Problem Gout, unspecified M10.9 Active 43754620 Problem Insomnia, unspecified G47.00 Active 308775272 Problem Coronary atherosclerosis of unspecified type of vessel, lytton or graft I25.10 Active 884059470 Problem Gastroesophageal reflux disease, esophagitis presence not specified K21.9 Active 558723603 Problem Primary osteoarthritis of left knee M17.12 Active [id number] Problem Gout of left knee due to renal impairment, unspecified chronicity M10.362 Active 794050586 Problem Mixed hyperlipidemia E78.2 Active 043437169 Problem 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 657398129 Problem Pseudogout M11.20 Active 989684602 Problem Mood disorder F39 Active 72347109 ALLERGIES No Information ENCOUNTERS Encounter Location Date Diagnosis [place] [id number] [place] [address] 27015- 7762 June, Type 2 diabetes mellitus with hyperglycemia E11.65 [place] [id number] [place] [address] 24185- 2669 May, Mood disorder F39 ; Gastroesophageal reflux disease, esophagitis presence not specified K21.9 ; Gout, unspecified M10.9 ; Coronary atherosclerosis of unspecified type of vessel, lytton or graft I25.10 and Type 2 diabetes mellitus with hyperglycemia E11.65 [place] [id number] [address] 2382 May, Type 2 diabetes mellitus with hyperglycemia E11.65 [place] [id number] [place] [address] 97945- 1721 Apr, Diabetes E11.9 and Mood disorder F39 [facility] [id number] [place] [address] 01359- 7493 15 Mar, 2017 Primary osteoarthritis of left knee M17.12 and Tear of lateral meniscus of left knee, unspecified tear type, unspecified whether old or current tear, initial encounter S83.282A [place] [id number] [place] [address] 63450- 0429 Feb, Mood disorder F39 [place] [id number] [place] [address] 43572- 8450 Feb, Pseudogout M11.20 [place] [id number] [place] [address] 42235- 9445 Jan, 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 [facility] [id number] [place] [address] 59659 -1822 Jan, [place] [id number] [place] [address] 83955- 1600 Jan, Pseudogout M11.20 ; Type 2 diabetes mellitus with hyperglycemia E11.65 and Other jail (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 [place] [id number] [place] [address] 09379- 8395 Jan, Gout of left knee due to renal impairment, unspecified chronicity M10.362 ; Type 2 diabetes mellitus with diabetic nephropathy E11.21 ; Synovial cyst of popliteal space [Mejia], left knee M71.22 and Low back pain M54.5 [place] [id number] [place] [address] 69920- 2881 Dec, Pseudogout M11.20 [place] [id number] [place] [address] 38618- 6282 Dec, [place] [id number] [place] [address] 61030- 8123 Dec, Type 2 diabetes mellitus with diabetic nephropathy E11.21 and Right anterior knee pain M25.561 [place] [id number] [place] [address] 29775- 9401 Nov, Pseudogout M11.20 [place] [id number] [place] [address] 00889- 4591 Nov, Pseudogout M11.20 ; Chronic kidney disease, stage 3 N18.3 ; Mixed hyperlipidemia E78.2 ; Gout, unspecified M10.9 ; Coronary atherosclerosis of unspecified type of vessel, lytton or graft I25.10 ; Mood disorder F39 and Gastroesophageal reflux disease, esophagitis presence not specified K21.9 [place] [id number] [place] [address] 94193- 4614 Nov, [place] [id number] [place] [address] 26691- 1699 Oct, Pseudogout M11.20 [place] [id number] [place] [address] 01151- 8106 Sep, Pseudogout M11.20 [place] [id number] [place] [address] 30946- 4181 Sep, Pseudogout M11.20 [place] [id number] [place] [address] 53733- 2504 Sep, [facility] [id number] [place] [address] [id number] Aug, [place] [address] 62849- 8454 Aug, Diabetes E11.9 ; Chronic kidney disease, stage 3 N18.3 ; Hyperuricemia E79.0 ; Mixed hyperlipidemia E78.2 ; Gastroesophageal reflux disease, esophagitis presence not specified K21.9 ; Gout, unspecified M10.9 ; Coronary atherosclerosis of unspecified type of vessel, lytton or graft I25.10 and Mood disorder F39 [facility] [id number] [place] [address] 18410- 8893 June, [facility] [id number] [place] [address] 76867- 9864 June, [facility] [id number] [place] [address] 05822- 8694 June, [facility] [id number] [place] [address] 97582- 8846 May, Chronic renal failure, stage 3 (moderate) N18.3 [facility] [id number] [place] [address] 76168- 7224 May, Diabetes E11.9 [facility] [id number] [place] [address] 39965- 1625 May, [facility] [id number] [place] [address] 54188- 8928 Apr, [facility] [id number] [place] [address] 82617- 5740 Apr, [facility] [id number] [place] [address] 15122- 2192 Apr, Cellulitis of right lower extremity L03.115 and Diabetes E11.9 [facility] [address] [place] [address] 52137- 7676 Apr, Type 2 diabetes mellitus with hyperglycemia E11.65 [facility] [address] [place] [address] 74281- 0966 Mar, Cellulitis of right lower extremity L03.115 and Low back pain M54.5 [facility] [id number] [place] [address] 95492- 8822 Mar, [facility] [id number] [place] [address] 15626- 3916 Mar, Cellulitis of right lower extremity L03.115 [facility] [address] [address] 2319 Mar, Cellulitis of right lower extremity L03.115 [facility] [address] [address]- 8892 Feb, Cellulitis of right lower extremity L03.115 [place] [address] [place] [address] 13768- 4160 Feb, Cellulitis of right lower extremity L03.115 [place] [address] [address]- 1894 Feb, [place] [address] [place] [address] 31487- 1718 Feb, Leukocytosis, unspecified type D72.829 ; Chronic renal failure, stage 3 (moderate) N18.3 and Type 2 diabetes mellitus with hyperglycemia E11.65 [place] [address] [address]- 8631 Feb, Leukocytosis, unspecified type D72.829 [place] [address] [address]- 2274 Feb, [place] [address] [place] [address] 15341- 7167 Feb, Cellulitis of right lower extremity L03.115 ; Thrush B37.0 ; Gout of left knee due to renal impairment, unspecified chronicity M10.362 and Chronic renal failure, stage 3 (moderate) N18.3 [place] [address] [address]- 7357 Feb, [place] [address] [place] [address] 00571- 5075 Feb, Right foot infection L08.9 ; Type 2 diabetes mellitus with hyperglycemia E11.65 ; Arthralgia of left knee M25.562 ; Chronic kidney disease , stage 3 N18.3 and Diabetes E11.9 [place] [id number] [place] [address] 78671- 0388 Feb, [place] [address] 37458- 0131 Feb, Diabetes E11.9 ; Arthralgia of left knee M25.562 and Thrush B37.0 [place] [address] 61444- 4886 Jan, [place] [address] 55170- 0995 Jan, Type 2 diabetes mellitus with hyperglycemia E11.65 ; Chronic renal failure, stage 3 (moderate) N18.3 and Leukocytosis, unspecified type D72.829 [place] [id number] [place] [address] 47535- 0412 Jan, Type 2 diabetes mellitus with hyperglycemia E11.65 [place] [id number] [place] [address] 50286- 7227 Dec, Gout of left knee due to renal impairment, unspecified chronicity M10.362 [place] [id number] [place] [address] 09159- 2278 Dec, Gout of left knee due to renal impairment, unspecified chronicity M10.362 and Diabetes E11.9 [place] [id number] [place] [address] 33066- 2494 Dec, [place] [id number] [place] [address] 99806- 8553 Dec, [facility] [id number] [place] [address] 58789 -1198 Dec, [place] [id number] [place] [address] 10926- 8888 Dec, Chronic kidney disease, stage 3 N18.3 ; Type 2 diabetes mellitus with diabetic nephropathy E11.21 ; Type 2 diabetes mellitus with hyperglycemia E11.65 and terminal operator 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 [facility] [id number] [place] [address] 73765 -3571 Dec, Leukocytosis, unspecified type D72.829 ; Chronic renal failure, stage 3 (moderate) N18.3 and Nausea R11.0 [place] [id number] [place] [address] 00259- 9375 Nov, [place] [address] 39146- 5184 Jul, [place] [address] 46671- 8353 Jul, Diabetes E11.9 ; Low back pain M54.5 and Other chronic pain G89.29 [place] [id number] [place] [address] 12772- 2856 June, [place] [address] 25235- 7644 June, [place] [address] 40568- 3598 Jan, Viral illness B34.[address] 83984- 2443 Jan, Type 2 diabetes mellitus with hyperglycemia E11.65 ; Pain in right foot M79.671 and Localized edema R60.0 [place] [id number] [place] [address] 26294- 9223 Jan, [place] [address] 95463- 6593 Dec, Right foot pain M79.671 ; Insomnia, unspecified type G47.00 and Diabetes E11.9 [place] [id number] [place] [address] 05231- 4333 16 Dec, 2014 Pain in right foot M79.671 [place] [address] 99749- 2469 Nov, [facility] [address] [id number] [place] [address]- 9597 Sep, [facility] [address] [facility] [id number] [place] [address]- 4196 Sep, Diabetes mellitus, type II 250.00 [facility] [address] [facility] [id number] [place] [address]- 8009 May, [facility] [address] [facility] [id number] [place] [address]- 0670 May, [facility] [address] [id number] [place] [address]- 8026 Apr, [facility] [address] [facility] [id number] [place] [address]- 4536 Apr, [facility] [address] [facility] [id number] [place] [address]- 3240 16 Apr, 2014 [facility] [address] [facility] [id number] [place] [address]- 6090 16 Apr, 2014 [facility] [address] [facility] [id number] [place] [address]- 0705 Apr, [facility] [address] [facility] [id number] [place] [address]- 9501 Apr, [facility] [address] [facility] [id number] [place] [address]- 7959 05 Apr, 2014 [facility] [place] [facility] [address] [id number] [address]- 4740 05 Apr, 2014 [facility] [place] [facility] [address] [id number] [place] [address]- 3079 Jan, [facility] [place] [facility] [address] [facility] [id number] [place] [address]- 6709 18 Jan, 2014 [facility] [place] [facility] [address] [facility] [id number] [place] [address]- 6272 15 Jan, 2014 [facility] [place] [facility] [address] [facility] [id number] [place] [address]- 0692 15 Jan, 2014 [facility] [place] [facility] [address] [id number] [place] [address]- 5864 Dec, [facility] [place] [facility] [address] [id number] [place] [address]- 3272 Dec, [facility] [place] [facility] [address] [id number] [place] [address]- 0182 Nov, [facility] [place] [facility] [address] [id number] [place] [address]- 4315 Nov, [facility] [place] [facility] [address] [id number] [place] [address]- 3037 Oct, [facility] [place] [facility] [address] [id number] [place] [address]- 1996 Oct, [facility] [place] [facility] [address] [id number] [place] [address]- 7943 Oct, [facility] [place] [facility] [address] [id number] [place] [address]- 2895 Oct, [facility] [place] [facility] [address] [id number] [place] [address]- 0010 Sep, [facility] [place] [facility] [address] [id number] [place] [address]- 1493 Sep, [facility] [place] [facility] [address] [id number] [place] [address]- 7724 Sep, [facility] [place] [facility] [address] [id number] [place] [address]- 8742 Sep, [facility] [place] [facility] [address] [id number] [place] [address]- 6727 Sep, [facility] [place] [facility] [address] [id number] [place] [address]- 7156 Sep, [facility] [place] [facility] [address] [id number] [place] [address]- 3695 Sep, [facility] [place] [facility] [address] [id number] [place] [address]- 0077 Sep, [facility] [place] [facility] [address] [id number] [place] [address]- 4889 Sep, [facility] [place] [facility] [address] [id number] [place] 0669 Sep, [facility] [place] [facility] [address] [id number] [place] [address]- 2623 Sep, [facility] [place] [facility] [address] [id number] [place] [address]- 2662 Sep, [facility] [place] [facility] [address] [id number] [place] [address]- 0754 Aug, [facility] [place] [facility] [address] [id number] [place] [address]- 4528 Aug, [facility] [place] [facility] [address] [id number] [place] [address]- 6344 Aug, [facility] [place] [facility] [address] [id number] [place] [address]- 5161 Aug, [facility] [place] [facility] [address] [id number] [place] [address]- 6237 June, [facility] [place] [facility] [address] [id number] [place] [address]- 7184 May, [facility] [place] [facility] [address] [id number] [place] [address]- 5586 May, [facility] [place] [facility] [address] [id number] [place] [address]- 6096 May, [facility] [place] [facility] [address] [id number] [place] [address]- 7908 May, [facility] [place] [facility] [address] [id number] [place] 6416 May, [facility] [place] [facility] [address] [id number] [address]- 8556 17 May, 2013 [facility] [place] [facility] [address] [id number] [place] [address]- 6114 16 May, 2013 [facility] [place] [facility] [address] [id number] [place] [address]- 0908 16 May, 2013 [facility] [place] [facility] [address] [id number] [place] [address]- 7345 May, [facility] [place] [facility] [address] [id number] [place] [address]- 0901 May, [facility] [place] [facility] [address] [id number] [place] [address]- 3319 May, [facility] [place] [facility] [address] [id number] [place] [address]- 1542 May, [facility] [place] [facility] [address] [facility] [id number] [place] [address]- 4528 Apr, [facility] [place] [facility] [address] [id number] [place] [address]- 7269 Apr, [facility] [place] [facility] [address] [id number] [place] [address]- 9112 Mar, [facility] [place] [facility] [address] [facility] [id number] [place] [address]- 1303 Mar, [facility] [place] [facility] [address] [id number], [place] [address]- 7736 Dec, [facility] [place] [facility] [address] [id number], [place] [address]- 9301 Dec, [facility] [place] [facility] [address] [id number] [place] [address]- 1950 Dec, [facility] [place] [facility] [address] [id number] [place] [address]- 4913 Dec, [facility] [place] [facility] [address] [facility] [id number] [place] [address]- 9387 Nov, [facility] [place] [facility] [address] [id number] [place] [address]- 7479 25 Nov, 2012 [facility] [place] [facility] [address] [id number] [place] [address]- 0281 30 Oct, 2012 [facility] [place] [facility] [address] [id number] [place] [address]- 0728 Oct, [facility] [place] [facility] [address] [id number] [place] [address]- 2275 Aug, [facility] [place] [facility] [address] [id number] [place] [address]- 1853 Aug, [facility] [place] [facility] [address] [id number] [place] [address]- 1059 Aug, [facility] [place] [facility] [address] [id number] [place] [address]- 0939 Jul, [facility] [place] [facility] [address] [id number] [place] [address]- 6054 June, [facility] [place] [facility] [address] [id number] [place] [address]- 1531 June, [facility] [place] [facility] [address] [id number] [place] [address]- 0915 Apr, [facility] [place] [facility] [address] [id number] [place] [address]- 6360 Mar, [facility] [place] [facility] [address] [id number] [place] [address]- 4735 Mar, [facility] [place] [facility] [address] [id number] [place] [address]- 5238 Mar, [facility] [place] [facility] [address] [id number] [place] [address]- 6216 Mar, [facility] [place] [facility] [address] [id number] [place] [address]- 0120 Mar, [facility] [place] [facility] [address] [id number] [place] [address]- 0242 Feb, [facility] [address] [id number] [place] [address]- 5926 Feb, [facility] [place] [facility] [address] [id number] [place] [address]- 0311 Feb, [facility] [place] [facility] [address] [id number] [place] [address]- 0619 Feb, [facility] [place] [facility] [address] [id number] [place] [address]- 1816 Jan, [facility] [place] [facility] [address] [id number] [place] 2665 Jan, [facility] [place] [facility] [address] [id number] [place] [address]- 3785 Dec, [facility] [place] [facility] [address] [id number] [place] [address]- 5673 Dec, [facility] [place] [facility] [address] [id number] [place] [address]- 3536 Dec, [facility] [place] [facility] [address] [id number] [place] [address] Dec, [facility] [place] [facility] [address] [id number] [place] [address] Oct, [facility] [place] [facility] [address] [id number] [place] [address] Aug, [facility] [place] [facility] [address] [id number] [place] [address] Jul, [facility] [place] [facility] [address] [id number] [place] [address] June, [facility] [place] [facility] [address] [id number] [place] [address] June, [facility] [place] [facility] [address] [id number] [place] [address] June, [facility] [place] [facility] [address] [id number] [place] [address] June, [facility] [address] [id number] [place] [address] June, [facility] [place] [facility] [address] [id number] [place] [address] May, [facility] [address] [id number] [place] [address] May, [facility] [address] [id number] [place] [address]- [address] Apr, [facility] [address] [id number] [place] [address] Apr, [facility] [address] [id number] [place] [address] Mar, [facility] [address] [id number] [place] [address] Feb, [facility] [address] [id number] [place] [address] Nov, [facility] [address] [id number] [place] [address] Nov, [facility] [address] [facility] [id number] [place] [address] Nov, [facility] [address] [id number] [place] [address]- [address]16 17 Apr, 2010 [facility] [address] [id number] [place] [address] Jan, [facility] [place] [facility] [address] [id number] [place] [address] Dec, [facility] [place] [facility] [address] [id number] [place] [address]46 Dec, [facility] [place] [facility] [address] [id number] [place] [address]- [address] 29 Nov, 2009 [facility] [address] [id number] [place] [address] June, [facility] [address] [id number] [place] [address]- [address]846 29 Jan, 2009 [facility] [address] [id number] [place] [address]- [address]98 28 Jan, 2009 [facility] [address] [id number] [place] [address]- [address] 23 Jan, 2009 [facility] [address] [id number] [place] [address] 22 Jan, 2009 [facility] [address] [id number] [place] [address]- [address] 16 Jan, 2009 [facility] [address] [facility] [id number] [place] [address] 15 Jan, 2009 [facility] [address] [id number], [place] [address] 15 Jan, 2009 [facility] [address] [id number] [place] [address]- [address]46 11 Jan, 2009 [facility] [address] [id number], [place] [address]68 11 Jan, 2009 [facility] [address] [id number], [place] [address] 10 Jan, 2009 [facility] [place] [facility] [address] [id number], [place] [address] 04 Jan, 2009 [facility] [place] [facility] [address] [id number] [place] [address]- 12[address] 02 Jan, 2009 [facility] [place] [facility] [address] [id number] [address] 25 Dec, 2008 [facility] [facility] [address] [id number] [address] 19 Dec, 2008 [facility] [address] [facility] [id number] [place] [address] 17 Dec, 2008 [facility] [address] [facility] [id number] [place] [address] Dec, [facility] [address] [facility] [id number][place] [address] Nov, [facility] [address] [facility] [id number][place] [address] Oct, IMMUNIZATIONS No Known Immunizations SOCIAL HISTORY Never Assessed REASON FOR VISIT Repository PLAN OF CARE VITAL SIGNS MEDICATIONS Medication Instructions Dosage Frequency Start Date End Date Duration Status Omeprazole 40 MG Orally Once a day 1 capsule 24h 90 days Active Toprol XL 100 MG Orally Once a day 1 tablet 24h 90 days Active Plavix 75 MG Orally Once a day 1 tablet 24h 90 days Active Atorvastatin Calcium 10 MG Orally Once a day 1 tablet 24h 90 days Active Uloric 80 MG Orally Once a day 1 tablet 24h Aug, 90 days Active Seroquel 50 MG Orally Once a day 3 Tablets 24h Jan, 30 days Active RESULTS No Results PROCEDURES [...]
--- OUTSIDE RECORDS SUMMARY | 2017-12-06 13:53 | XMS REPORT ---
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 Active 277512964 Problem Type 2 diabetes mellitus with hyperglycemia E11.65 Active [id number] Problem Chronic kidney disease, stage 3 N18.3 Active 168019890 Problem Gout, unspecified M10.9 Active 41204389 Problem Insomnia, unspecified G47.00 Active 324594944 Problem Coronary atherosclerosis of unspecified type of vessel, jena or graft I25.10 Active 292256377 Problem Gastroesophageal reflux disease, esophagitis presence not specified K21.9 Active 211603209 Problem Primary osteoarthritis of left knee M17.12 Active [id number] Problem Gout of left knee due to renal impairment, unspecified chronicity M10.362 Active 752478580 Problem Mixed hyperlipidemia E78.2 Active 542203550 Problem 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 512348825 Problem Pseudogout M11.20 Active 933287067 Problem Mood disorder F39 Active 25253857 ALLERGIES No Information ENCOUNTERS Encounter Location Date Diagnosis [place] [id number] [place] [address] 76183- 9075 June, Type 2 diabetes mellitus with hyperglycemia E11.65 [place] [address] [place] [address] 54106- 4137 May, Mood disorder F39 ; Gastroesophageal reflux disease, esophagitis presence not specified K21.9 ; Gout, unspecified M10.9 ; Coronary atherosclerosis of unspecified type of vessel, jena or graft I25.10 and Type 2 diabetes mellitus with hyperglycemia E11.65 [place] [id number] [address] 4[address] May, Type 2 diabetes mellitus with hyperglycemia E11.65 [place] [id number] [place] [address] 06024- 9673 Apr, Diabetes E11.9 and Mood disorder F39 [facility] [id number] [place] [address] 73387- 3008 15 Mar, 2017 Primary osteoarthritis of left knee M17.12 and Tear of lateral meniscus of left knee, unspecified tear type, unspecified whether old or current tear, initial encounter S83.282A [place] [id number] [place] [address] 47030- 4124 Feb, Mood disorder F39 [place] [id number] [place] [address] 53216- 3002 Feb, Pseudogout M11.20 [place] [id number] [place] [address] 31780- 5435 Jan, Other rn long term care (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 [facility] [id number] [place] [address] 11929 -3412 Jan, [place] [id number] [place] [address] 72218- 6414 Jan, Pseudogout M11.20 ; Type 2 diabetes mellitus with hyperglycemia E11.65 and Other residential (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 [place] [id number] [place] [address] 17538- 5042 Jan, Gout of left knee due to renal impairment, unspecified chronicity M10.362 ; Type 2 diabetes mellitus with diabetic nephropathy E11.21 ; Synovial cyst of popliteal space [Mejia], left knee M71.22 and Low back pain M54.5 [place] [id number] [place] [address] 20167- 4159 Dec, Pseudogout M11.20 [place] [id number] [place] [address] 92599- 8376 Dec, [place] [id number] [place] [address] 83731- 0255 Dec, Type 2 diabetes mellitus with diabetic nephropathy E11.21 and Right anterior knee pain M25.561 [place] [id number] [place] [address] 07950- 3832 Nov, Pseudogout M11.20 [place] [id number] [place] [address] 04709- 1567 Nov, Pseudogout M11.20 ; Chronic kidney disease, stage 3 N18.3 ; Mixed hyperlipidemia E78.2 ; Gout, unspecified M10.9 ; Coronary atherosclerosis of unspecified type of vessel, jena or graft I25.10 ; Mood disorder F39 and Gastroesophageal reflux disease, esophagitis presence not specified K21.9 [place] [id number] [place] [address] 25898- 9860 Nov, [place] [id number] [place] [address] 38077- 7014 Oct, Pseudogout M11.20 [place] [id number] [place] [address] 69213- 6903 Sep, Pseudogout M11.20 [place] [id number] [place] [address] 81670- 5197 Sep, Pseudogout M11.20 [place] [id number] [place] [address] 70371- 6511 Sep, [facility] [id number] [place] [address] [id number] Aug, [place] [address] 07658- 4517 Aug, Diabetes E11.9 ; Chronic kidney disease, stage 3 N18.3 ; Hyperuricemia E79.0 ; Mixed hyperlipidemia E78.2 ; Gastroesophageal reflux disease, esophagitis presence not specified K21.9 ; Gout, unspecified M10.9 ; Coronary atherosclerosis of unspecified type of vessel, jena or graft I25.10 and Mood disorder F39 [facility] [id number] [place] [address] 30566- 6984 June, [facility] [id number] [place] [address] 47384- 6491 June, [facility] [id number] [place] [address] 11805- 2990 June, [facility] [id number] [place] [address] 75977- 8807 May, Chronic renal failure, stage 3 (moderate) N18.3 [facility] [id number] [place] [address] 12270- 8302 May, Diabetes E11.9 [facility] [id number] [place] [address] 10015- 7763 May, [facility] [id number] [place] [address] 20185- 3289 Apr, [facility] [id number] [place] [address] 21727- 9006 Apr, [facility] [id number] [place] [address] 93670- 1766 Apr, Cellulitis of right lower extremity L03.115 and Diabetes E11.9 [facility] [address] [place] [address] 03273- 9194 Apr, Type 2 diabetes mellitus with hyperglycemia E11.65 [facility] [address] [place] [address] 71228- 7926 Mar, Cellulitis of right lower extremity L03.115 and Low back pain M54.5 [facility] [id number] [place] [address] 58018- 3543 Mar, [facility] [id number] [place] [address] 85943- 3134 Mar, Cellulitis of right lower extremity L03.115 [facility] [address] [address]- 7939 Mar, Cellulitis of right lower extremity L03.115 [facility] [address] [address]- 8646 Feb, Cellulitis of right lower extremity L03.115 [place] [address] [place] [address] 86429- 8696 Feb, Cellulitis of right lower extremity L03.115 [place] [address] [address]- 3345 Feb, [place] [address] [place] [address] 64724- 7235 Feb, Leukocytosis, unspecified type D72.829 ; Chronic renal failure, stage 3 (moderate) N18.3 and Type 2 diabetes mellitus with hyperglycemia E11.65 [place] [address] [address]- 6001 Feb, Leukocytosis, unspecified type D72.829 [place] [address] [address]- 6858 Feb, [place] [address] [place] [address] 22044- 9472 Feb, Cellulitis of right lower extremity L03.115 ; Thrush B37.0 ; Gout of left knee due to renal impairment, unspecified chronicity M10.362 and Chronic renal failure, stage 3 (moderate) N18.3 [place] [address] [address]- 7797 Feb, [place] [address] [place] [address] 56837- 4841 Feb, Right foot infection L08.9 ; Type 2 diabetes mellitus with hyperglycemia E11.65 ; Arthralgia of left knee M25.562 ; Chronic kidney disease , stage 3 N18.3 and Diabetes E11.9 [place] [id number] [place] [address] 74255- 2132 Feb, [place] [address] 75926- 2515 Feb, Diabetes E11.9 ; Arthralgia of left knee M25.562 and Thrush B37.0 [place] [address] 91559- 9478 Jan, [place] [address] 75238- 7841 Jan, Type 2 diabetes mellitus with hyperglycemia E11.65 ; Chronic renal failure, stage 3 (moderate) N18.3 and Leukocytosis, unspecified type D72.829 [place] [id number] [place] [address] 54003- 1369 Jan, Type 2 diabetes mellitus with hyperglycemia E11.65 [place] [id number] [place] [address] 05849- 0985 Dec, Gout of left knee due to renal impairment, unspecified chronicity M10.362 [place] [id number] [place] [address] 04415- 9208 Dec, Gout of left knee due to renal impairment, unspecified chronicity M10.362 and Diabetes E11.9 [place] [id number] [place] [address] 67655- 6628 Dec, [place] [id number] [place] [address] 89836- 7760 Dec, [facility] [id number] [place] [address] 59674 -2328 Dec, [place] [id number] [place] [address] 84105- 2623 Dec, Chronic kidney disease, stage 3 N18.3 ; Type 2 diabetes mellitus with diabetic nephropathy E11.21 ; Type 2 diabetes mellitus with hyperglycemia E11.65 and 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 [facility] [id number] [place] [address] 03901 -6660 Dec, Leukocytosis, unspecified type D72.829 ; Chronic renal failure, stage 3 (moderate) N18.3 and Nausea R11.0 [place] [id number] [place] [address] 06092- 8127 Nov, [place] [address] 58262- 9352 Jul, [place] [address] 53127- 1975 Jul, Diabetes E11.9 ; Low back pain M54.5 and Other chronic pain G89.29 [place] [id number] [place] [address] 83058- 0395 June, [place] [address] 72003- 5927 June, [place] [address] 27458- 1277 Jan, Viral illness B34.[address] 25867- 5030 Jan, Type 2 diabetes mellitus with hyperglycemia E11.65 ; Pain in right foot M79.671 and Localized edema R60.0 [place] [id number] [place] [address] 15484- 0407 Jan, [place] [address] 75068- 7485 Dec, Right foot pain M79.671 ; Insomnia, unspecified type G47.00 and Diabetes E11.9 [place] [id number] [place] [address] 88955- 1261 16 Dec, 2014 Pain in right foot M79.671 [place] [address] 39788- 0449 Nov, [facility] [address] [id number] [place] [address]- 0784 Sep, [facility] [address] [facility] [id number] [place] [address]- 5653 Sep, Diabetes mellitus, type II 250.00 [facility] [address] [facility] [id number] [place] [address]- 6020 May, [facility] [address] [facility] [id number] [place] [address]- 9291 May, [facility] [address] [id number] [place] [address]- 7552 Apr, [facility] [address] [facility] [id number] [place] [address]- 8032 Apr, [facility] [address] [facility] [id number] [place] [address]- 1046 16 Apr, 2014 [facility] [address] [facility] [id number] [place] [address]- 1014 16 Apr, 2014 [facility] [address] [facility] [id number] [place] [address]- 2086 Apr, [facility] [address] [facility] [id number] [place] [address]- 5755 Apr, [facility] [address] [facility] [id number] [place] [address]- 6675 05 Apr, 2014 [facility] [place] [facility] [address] [id number] [address]- 0652 05 Apr, 2014 [facility] [place] [facility] [address] [id number] [place] [address]- 1575 Jan, [facility] [place] [facility] [address] [facility] [id number] [place] [address]- 0636 18 Jan, 2014 [facility] [place] [facility] [address] [facility] [id number] [place] [address]- 2284 15 Jan, 2014 [facility] [place] [facility] [address] [facility] [id number] [place] [address]- 1852 15 Jan, 2014 [facility] [place] [facility] [address] [id number] [place] [address]- 5029 Dec, [facility] [place] [facility] [address] [id number] [place] [address]- 7132 Dec, [facility] [place] [facility] [address] [id number] [place] [address]- 2768 Nov, [facility] [place] [facility] [address] [id number] [place] [address]- 3017 Nov, [facility] [place] [facility] [address] [id number] [place] [address]- 0840 Oct, [facility] [place] [facility] [address] [id number] [place] [address]- 2802 Oct, [facility] [place] [facility] [address] [id number] [place] [address]- 1900 Oct, [facility] [place] [facility] [address] [id number] [place] [address]- 2216 Oct, [facility] [place] [facility] [address] [id number] [place] [address]- 1828 Sep, [facility] [place] [facility] [address] [id number] [place] [address]- 7940 Sep, [facility] [place] [facility] [address] [id number] [place] [address]- 3199 Sep, [facility] [place] [facility] [address] [id number] [place] [address]- 1077 Sep, [facility] [place] [facility] [address] [id number] [place] [address]- 5580 Sep, [facility] [place] [facility] [address] [id number] [place] [address]- 2057 Sep, [facility] [place] [facility] [address] [id number] [place] [address]- 5733 Sep, [facility] [place] [facility] [address] [id number] [place] [address]- 0827 Sep, [facility] [place] [facility] [address] [id number] [place] [address]- 0869 Sep, [facility] [place] [facility] [address] [id number] [place] 0552 Sep, [facility] [place] [facility] [address] [id number] [place] [address]- 7676 Sep, [facility] [place] [facility] [address] [id number] [place] [address]- 1359 Sep, [facility] [place] [facility] [address] [id number] [place] [address]- 2453 Aug, [facility] [place] [facility] [address] [id number] [place] [address]- 1048 Aug, [facility] [place] [facility] [address] [id number] [place] [address]- 9548 Aug, [facility] [place] [facility] [address] [id number] [place] [address]- 9077 Aug, [facility] [place] [facility] [address] [id number] [place] [address]- 0063 June, [facility] [place] [facility] [address] [id number] [place] [address]- 3212 May, [facility] [place] [facility] [address] [id number] [place] [address]- 2264 May, [facility] [place] [facility] [address] [id number] [place] [address]- 0625 May, [facility] [place] [facility] [address] [id number] [place] [address]- 8558 May, [facility] [place] [facility] [address] [id number] [place] 9815 May, [facility] [place] [facility] [address] [id number], [place] [address]- 5551 17 May, 2013 [facility] [place] [facility] [address] [id number] [place] [address]- 4186 16 May, 2013 [facility] [place] [facility] [address] [id number] [place] [address]- 7909 16 May, 2013 [facility] [place] [facility] [address] [id number] [place] [address]- 2670 May, [facility] [place] [facility] [address] [id number] [place] [address]- 9950 May, [facility] [place] [facility] [address] [id number] [place] [address]- 9017 May, [facility] [place] [facility] [address] [id number] [place] [address]- 3375 May, [facility] [place] [facility] [address] [facility] [id number] [place] [address]- 6785 Apr, [facility] [place] [facility] [address] [id number] [place] [address]- 8586 Apr, [facility] [place] [facility] [address] [id number] [place] [address]- 9241 Mar, [facility] [place] [facility] [address] [facility] [id number] [place] [address]- 5320 Mar, [facility] [place] [facility] [address] [id number], [place] [address]- 0237 Dec, [facility] [place] [facility] [address] [id number], [place] [address]- 1290 Dec, [facility] [place] [facility] [address] [id number] [place] [address]- 9115 Dec, [facility] [place] [facility] [address] [id number] [place] [address]- 9061 Dec, [facility] [place] [facility] [address] [facility] [id number] [place] [address]- 6823 Nov, [facility] [place] [facility] [address] [id number] [place] [address]- 6860 25 Nov, 2012 [facility] [place] [facility] [address] [id number] [place] [address]- 6233 30 Oct, 2012 [facility] [place] [facility] [address] [id number] [place] [address]- 6299 Oct, [facility] [place] [facility] [address] [id number] [place] [address]- 5048 Aug, [facility] [place] [facility] [address] [id number] [place] [address]- 1433 Aug, [facility] [place] [facility] [address] [id number] [place] [address]- 9464 Aug, [facility] [place] [facility] [address] [id number] [place] [address]- 8171 Jul, [facility] [place] [facility] [address] [id number] [place] [address]- 8047 June, [facility] [place] [facility] [address] [id number] [place] [address]- 1170 June, [facility] [place] [facility] [address] [id number] [place] [address]- 4866 Apr, [facility] [place] [facility] [address] [id number] [place] [address]- 4690 Mar, [facility] [place] [facility] [address] [id number] [place] [address]- 7451 Mar, [facility] [place] [facility] [address] [id number] [place] [address]- 5775 Mar, [facility] [place] [facility] [address] [id number] [place] [address]- 5752 Mar, [facility] [place] [facility] [address] [id number] [place] [address]- 0318 Mar, [facility] [place] [facility] [address] [id number] [place] [address]- 4423 Feb, [facility] [address] [id number] [place] [address]- 9793 Feb, [facility] [place] [facility] [address] [id number] [place] [address]- 7802 Feb, [facility] [place] [facility] [address] [id number] [place] [address]- 7884 Feb, [facility] [place] [facility] [address] [id number] [place] [address]- 8217 Jan, [facility] [place] [facility] [address] [id number] [place] 6556 Jan, [facility] [place] [facility] [address] [id number] [place] [address]- 6224 Dec, [facility] [place] [facility] [address] [id number] [place] [address]- 5165 Dec, [facility] [place] [facility] [address] [id number] [place] [address]- 0960 Dec, [facility] [place] [facility] [address] [id number] [place] [address]- 5882 Dec, [facility] [place] [facility] [address] [id number] [place] [address]- 1254 Oct, [facility] [place] [facility] [address] [id number] [place] [address]- 6409 Aug, [facility] [place] [facility] [address] [id number] [place] [address]- 9065 Jul, [facility] [place] [facility] [address] [id number] [place] [address]- 8493 June, [facility] [place] [facility] [address] [id number] [place] [address]- 3505 June, [facility] [place] [facility] [address] [id number] [place] 5815 June, [facility] [place] [facility] [address] [id number] [place] [address] June, [facility] [address] [id number] [place] [address] June, [facility] [place] [facility] [address] [id number] [place] [address] May, [facility] [address] [id number] [place] [address] May, [facility] [address] [id number] [place] [address] Apr, [facility] [address] [id number] [place] [address] Apr, [facility] [address] [id number] [place] [address] Mar, [facility] [address] [id number] [place] [address] Feb, [facility] [address] [id number] [place] [address] Nov, [facility] [address] [id number] [place] [address] Nov, [facility] [address] [facility] [id number] [place] [address] Nov, [facility] [address] [id number] [place] [address] 17 Apr, 2010 [facility] [address] [id number] [place] [address] Jan, [facility] [place] [facility] [address] [id number] [place] [address] Dec, [facility] [place] [facility] [address] [id number] [place] [address] Dec, [facility] [place] [facility] [address] [id number] [place] [address] 29 Nov, 2009 [facility] [address] [id number] [place] [address] June, [facility] [address] [id number] [place] [address] 29 Jan, 2009 [facility] [address] [id number] [place] [address] 28 Jan, 2009 [facility] [address] [id number] [place] [address] 23 Jan, 2009 [facility] [address] [id number] [place] [address] 22 Jan, 2009 [facility] [address] [id number] [place] [address] 16 Jan, 2009 [facility] [address] [facility] [id number] [place] [address] 15 Jan, 2009 [facility] [address] [id number] [address] 15 Jan, 2009 [facility] [address] [id number] [place] [address] 11 Jan, 2009 [facility] [address] [id number], [place] [address] 11 Jan, 2009 [facility] [address] [id number], [place] [address] 10 Jan, 2009 [facility] [place] [facility] [address] [id number], [place] [address] 04 Jan, 2009 [facility] [place] [facility] [address] [id number] [place] [address] 02 Jan, 2009 [facility] [place] [facility] [address] [id number], [place] [address] 25 Dec, 2008 [facility] [place] [facility] [address] [id number], [place] [address] 19 Dec, 2008 [facility] [place] [facility] [address] [facility] [id number] [place] [address] Dec, [facility] [address] [facility] [id number] [place] [address] Dec, [facility] [address] [facility] [id number] [place] [address] Nov, [facility] [address] [facility] [facility] [id number] [place] [address] Oct, IMMUNIZATIONS No Known Immunizations SOCIAL HISTORY Never Assessed REASON FOR VISIT Mert Garcia RN PLAN OF CARE Activity Details Follow Up prn Reason: VITAL SIGNS MEDICATIONS Unknown Medications RESULTS Name Result Date Reference Range [employer] 2017-02-23 PROCEDURES Procedure Date Ordered Result Body Site No Charge Feb 23, 2017 INSTRUCTIONS MEDICATIONS ADMINISTERED No Known Medications [...] left knee pseudogout status post joint fluid analysis-[facility] 09/20/16
--- OUTSIDE RECORDS SUMMARY | 2017-12-06 13:53 | XMS REPORT ---
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 Active 137603985 Problem Type 2 diabetes mellitus with hyperglycemia E11.65 Active 302898390567343 Problem Chronic kidney disease, stage 3 N18.3 Active 385740532 Problem Gout, unspecified M10.9 Active 63892500 Problem Insomnia, unspecified G47.00 Active 241680967 Problem Coronary atherosclerosis of unspecified type of vessel, [place] or graft I25.10 Active 961390534 Problem Gastroesophageal reflux disease, esophagitis presence not specified K21.9 Active 828856302 Problem Primary osteoarthritis of left knee M17.12 Active [id number] Problem Gout of left knee due to renal impairment, unspecified chronicity M10.362 Active 802829382 Problem Mixed hyperlipidemia E78.2 Active 189493805 Problem 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 783832557 Problem Pseudogout M11.20 Active 694001205 Problem Mood disorder F39 Active 93407721 ALLERGIES No Information ENCOUNTERS Encounter Location Date Diagnosis [place] [id number] [place] [address] 55060- 0237 May, [place] [id number], [place] [address] 7[address] May, Type 2 diabetes mellitus with hyperglycemia E11.65 [place] [id number] [place] [address] 85301- 8551 Apr, Diabetes E11.9 and Mood disorder F39 [place] [id number] [place] [address] 65213- 5739 Mar, Primary osteoarthritis of left knee M17.12 and Tear of lateral meniscus of left knee, unspecified tear type, unspecified whether old or current tear, initial encounter S83.282A [place] [id number] [place] [address] 39164- 2164 Feb, Mood disorder F39 [facility] [id number] [place] [address] 34253- 3258 Feb, Pseudogout M11.20 [place] [id number] [place] [address] 31437- 2526 Jan, Other longterm (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 [facility] [id number] [place] [address] 14447 -7472 Jan, [place] [id number] [place] [address] 42680- 9741 Jan, Pseudogout M11.20 ; Type 2 diabetes mellitus with hyperglycemia E11.65 and 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 [place] [id number] [place] [address] 87303- 1786 Jan, Gout of left knee due to renal impairment, unspecified chronicity M10.362 ; Type 2 diabetes mellitus with diabetic nephropathy E11.21 ; Synovial cyst of popliteal space [Mejia], left knee M71.22 and Low back pain M54.5 [place] [id number] [place] [address] 60776- 7482 Dec, Pseudogout M11.20 [place] [address], [place] [address] 5[address] 14 Dec, 2016 [place] [id number] [place] [address] 96561- 1686 13 Dec, 2016 Type 2 diabetes mellitus with diabetic nephropathy E11.21 and Right anterior knee pain M25.561 [place] [id number] [place] [address] 11213- 8113 Nov, Pseudogout M11.20 [facility] [id number] [place] [address] 22601- 9102 Nov, Pseudogout M11.20 ; Chronic kidney disease, stage 3 N18.3 ; Mixed hyperlipidemia E78.2 ; Gout, unspecified M10.9 ; Coronary atherosclerosis of unspecified type of vessel, [place] or graft I25.10 ; Mood disorder F39 and Gastroesophageal reflux disease, esophagitis presence not specified K21.9 [facility] [id number] [place] [address] 60930- 9265 Nov, [facility] [id number] [place] [address] 82874- 1826 Oct, Pseudogout M11.20 [facility] [id number] [place] [address] 97972- 0259 Sep, Pseudogout M11.20 [place] [id number] [place] [address] 39160- 3576 Sep, Pseudogout M11.20 [place] [id number] [place] [address] 18972- 2200 Sep, [facility] [id number] [place] [address] [id number] Aug, [place] [id number] [place] [address] 44456- 5096 Aug, Diabetes E11.9 ; Chronic kidney disease, stage 3 N18.3 ; Hyperuricemia E79.0 ; Mixed hyperlipidemia E78.2 ; Gastroesophageal reflux disease, esophagitis presence not specified K21.9 ; Gout, unspecified M10.9 ; Coronary atherosclerosis of unspecified type of vessel, [place] or graft I25.10 and Mood disorder F39 [facility] [address] [place] [address] 86298- 5232 June, [facility] [id number] [place] [address] 77770- 7752 June, [facility] [id number], [place] [address] 3912 June, [facility] [id number] [place] [address] 67865- 4513 May, Chronic renal failure, stage 3 (moderate) N18.3 [facility] [address], [place] [address]- 4883 May, Diabetes E11.9 [facility] [id number] [place] [address] 45261- 3303 May, [facility] [id number] [place] [address] 10760- 7410 Apr, [facility] [id number] [place] [address] 28424- 5891 Apr, [facility] [id number] [place] [address] 30989- 9481 Apr, Cellulitis of right lower extremity L03.115 and Diabetes E11.9 [facility] [address], [place] [address]- 6368 Apr, Type 2 diabetes mellitus with hyperglycemia E11.65 [place] [address] [place] [address] 30980- 2131 Mar, Cellulitis of right lower extremity L03.115 and Low back pain M54.5 [place] [address] [address] 8314 Mar, [facility] [address] [address]- 4830 Mar, Cellulitis of right lower extremity L03.115 [facility] [address] 5306 Mar, Cellulitis of right lower extremity L03.115 [facility] [address] 5806 Feb, Cellulitis of right lower extremity L03.115 [place] [address], [place] [address]- 3979 Feb, Cellulitis of right lower extremity L03.115 [place] [address] [address]- 3716 Feb, [place] [address], [place] [address]- 7019 Feb, Leukocytosis, unspecified type D72.829 ; Chronic renal failure, stage 3 (moderate) N18.3 and Type 2 diabetes mellitus with hyperglycemia E11.65 [place] [address], [place] [address]- 9350 Feb, Leukocytosis, unspecified type D72.829 [place] [address], [place] [address]- 3138 Feb, [place] [address] [place] [address] 89310- 2029 Feb, Cellulitis of right lower extremity L03.115 ; Thrush B37.0 ; Gout of left knee due to renal impairment, unspecified chronicity M10.362 and Chronic renal failure, stage 3 (moderate) N18.3 [place] [address], [place] [address]- 8670 Feb, [place] [address] [place] [address]- 6907 Feb, Right foot infection L08.9 ; Type 2 diabetes mellitus with hyperglycemia E11.65 ; Arthralgia of left knee M25.562 ; Chronic kidney disease , stage 3 N18.3 and Diabetes E11.9 [place] [address], [place] [address]- 9645 Feb, [place] [address] [place] [address]- 4254 Feb, Diabetes E11.9 ; Arthralgia of left knee M25.562 and Thrush B37.0 [place] [address] [place] [address] 02833- 8315 Jan, [place] [id number] [place] [address] 06826- 2325 Jan, Type 2 diabetes mellitus with hyperglycemia E11.65 ; Chronic renal failure, stage 3 (moderate) N18.3 and Leukocytosis, unspecified type D72.829 [place] [id number] [place] [address] 54668- 1492 Jan, Type 2 diabetes mellitus with hyperglycemia E11.65 [place] [id number] [place] [address] 75925- 4768 Dec, Gout of left knee due to renal impairment, unspecified chronicity M10.362 [place] [id number] [place] [address] 54661- 1934 Dec, Gout of left knee due to renal impairment, unspecified chronicity M10.362 and Diabetes E11.9 [place] [id number] [place] [address] 52251- 3327 Dec, [place] [id number] [place] [address] 91399- 3866 Dec, [facility] [place] [id number] [place] [address] 98495 -9704 Dec, [place] [id number] [place] [address] 91886- 5493 Dec, Chronic kidney disease, stage 3 N18.3 ; Type 2 diabetes mellitus with diabetic nephropathy E11.21 ; Type 2 diabetes mellitus with hyperglycemia E11.65 and residential 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 [facility] [id number] [place] [address] 71208 -9889 05 Dec, 2015 Leukocytosis, unspecified type D72.829 ; Chronic renal failure, stage 3 (moderate) N18.3 and Nausea R11.0 [place] [id number] [place] [address] 00222- 4275 Nov, [facility] [id number] [place] [address] 43526- 8895 Jul, [facility] [address] 56034- 5475 Jul, Diabetes E11.9 ; Low back pain M54.5 and Other chronic pain G89.29 [facility] [address] 76983- 1429 June, [facility] [address] 50274- 3295 June, [facility] [address] 02455- 4789 Jan, Viral illness B34.9 [place] [address] 06510- 1758 Jan, Type 2 diabetes mellitus with hyperglycemia E11.65 ; Pain in right foot M79.671 and Localized edema R60.0 [place] [address] 60975- 2253 Jan, [facility] [address] 05597- 6671 Dec, Right foot pain M79.671 ; Insomnia, unspecified type G47.00 and Diabetes E11.9 [place] [id number] [place] [address] 57416- 9658 Dec, Pain in right foot M79.671 [facility] [id number] [place] [address] 19980- 4158 Nov, [facility] [address] 13880- 9188 Sep, [facility] [address] 04475- 9574 Sep, Diabetes mellitus, type II 250.00 [facility] [address] 34823- 8656 14 May, 2014 [facility] [place] [facility] [address] [id number] [place] [address]- 8501 13 May, 2014 [facility] [place] [facility] [address] [id number] [place] [address]- 2359 19 Apr, 2014 [facility] [place] [facility] [address] [id number] [place] [address]- 0570 19 Apr, 2014 [facility] [place] [facility] [address] [id number] [place] [address]- 4108 16 Apr, 2014 [facility] [place] [facility] [address] [id number] [place] [address]- 2175 16 Apr, 2014 [facility] [place] [facility] [address] [id number] [place] [address]- 6866 12 Apr, 2014 [facility] [place] [facility] [address] [id number] [place] [address]- 7076 12 Apr, 2014 [facility] [place] [facility] [address] [id number] [place] [address]- 7512 05 Apr, 2014 [facility] [place] [facility] [address] [id number] [place] [address]- 5457 05 Apr, 2014 [facility] [place] [facility] [address] [id number] [place] [address]- 7958 18 Jan, 2014 [facility] [place] [facility] [address] [id number] [place] [address]- 3347 18 Jan, 2014 [facility] [place] [facility] [address] [id number] [place] [address]- 6524 15 Jan, 2014 [facility] [place] [facility] [address] [id number] [place] 7867 15 Jan, 2014 [facility] [place] [facility] [address] [id number] [place] [address]- 0909 10 Dec, 2013 [facility] [place] [facility] [address] [id number] [place] [address]- 1931 10 Dec, 2013 [facility] [place] [facility] [address] [id number] [place] [address]- 5160 Nov, [facility] [place] [facility] [address] [id number] [place] [address]- 6679 Nov, [facility] [place] [facility] [address] [id number] [place] [address]- 9183 Oct, [facility] [place] [facility] [address] [id number] [place] [address]- 6535 Oct, [facility] [place] [facility] [address] [id number] [place] [address]- 6153 Oct, [facility] [place] [facility] [address] [id number] [place] [address]- 0279 Oct, [facility] [place] [facility] [address] [id number] [place] [address]- 5323 Sep, [facility] [place] [facility] [address] [id number] [place] [address]- 7390 Sep, [facility] [place] [facility] [address] [id number] [place] [address]- 2606 Sep, [facility] [place] [facility] [address] [id number] [place] [address]- 5659 Sep, [facility] [place] [facility] [address] [id number] [place] [address]- 5204 Sep, [facility] [place] [facility] [address] [id number] [place] [address]- 1946 Sep, [facility] [place] [facility] [address] [id number] [place] [address]- 2758 Sep, [facility] [place] [facility] [address] [id number] [place] [address]- 5397 Sep, [facility] [place] [facility] [address] [id number] [place] [address]- 1538 Sep, [facility] [place] [facility] [address] [id number] [place] [address]- 6554 Sep, [facility] [place] [facility] [address] [id number] [place] [address]- 9057 Sep, [facility] [place] [facility] [address] [id number] [place] [address]- 1873 Sep, [facility] [place] [facility] [address] [id number] [place] [address]- 3852 Aug, [facility] [place] [facility] [address] [id number] [place] [address]- 4420 Aug, [facility] [place] [facility] [address] [id number] [place] [address]- 6677 Aug, [facility] [place] [facility] [address] [id number] [place] [address]- 8656 Aug, [facility] [place] [facility] [address] [id number] [place] [address]- 9129 June, [facility] [place] [facility] [address] [id number] [place] [address]- 5858 May, [facility] [place] [facility] [address] [id number] [place] [address]- 0740 May, [facility] [place] [facility] [address] [id number] [place] [address]- 2075 May, [facility] [place] [facility] [address] [id number] [place] [address]- 4417 May, [facility] [place] [facility] [address] [id number] [place] [address]- 6222 May, [facility] [place] [facility] [address] [id number] [place] [address]- 5991 May, [facility] [place] [facility] [address] [id number] [place] [address]- 1528 May, [facility] [place] [facility] [address] [id number] [place] 6049 May, [facility] [place] [facility] [address] [id number] [place] [address]- 8934 14 May, 2013 [facility] [place] [facility] [address] [id number] [place] [address]- 1139 May, [facility] [place] [facility] [address] [id number] [place] [address]- 4007 14 May, 2013 [facility] [place] [facility] [address] [id number] [place] [address]- 0832 May, [facility] [place] [facility] [address] [id number] [place] [address]- 4355 Apr, [facility] [place] [facility] [address] [id number] [place] [address]- 9358 Apr, [facility] [place] [facility] [address] [id number] [place] [address]- 2035 Mar, [facility] [place] [facility] [address] [facility] [id number] [place] [address]- 5073 Mar, [facility] [place] [facility] [address] [facility] [id number] [place] [address]- 2167 Dec, [facility] [place] [facility] [address] [facility] [id number] [place] [address]- 5336 Dec, [facility] [place] [facility] [address] [facility] [id number] [place] [address]- 0563 Dec, [facility] [place] [facility] [address] [facility] [id number] [place] [address]- 6714 Dec, [facility] [place] [facility] [address] [facility] [id number] [place] [address]- 8443 Nov, [facility] [place] [facility] [address] [id number] [place] [address]- 8677 Nov, [facility] [place] [facility] [address] [facility] [id number] [place] [address]- 4970 30 Oct, 2012 [facility] [place] [facility] [address] [facility] [id number] [place] [address]- 3072 Oct, [facility] [place] [facility] [address] [id number] [place] [address]- 8905 Aug, [facility] [place] [facility] [address] [id number] [place] [address]- 0242 Aug, [facility] [place] [facility] [address] [id number] [place] [address]- 5284 Aug, [facility] [place] [facility] [address] [id number] [place] [address]- 5344 Jul, [facility] [place] [facility] [address] [id number] [place] [address]- 4663 June, [facility] [place] [facility] [address] [id number] [place] [address]- 0940 June, [facility] [place] [facility] [address] [id number] [place] [address]- 6866 Apr, [facility] [place] [facility] [address] [id number] [place] [address]- 9758 Mar, [facility] [place] [facility] [address] [id number] [place] [address]- 6727 Mar, [facility] [place] [facility] [address] [id number] [place] [address]- 7109 Mar, [facility] [place] [facility] [address] [id number] [place] [address]- 1515 Mar, [facility] [place] [facility] [address] [id number] [place] [address]- 3112 Mar, [facility] [place] [facility] [address] [id number] [place] [address]- 8099 Feb, [facility] [place] [facility] [address] [id number] [place] [address] 7997 Feb, [facility] [place] [facility] [address] [id number] [place] 4169 Feb, [facility] [place] [facility] [address] [id number] [address]- 6151 Feb, [facility] [address] [id number] [place] [address]- 6220 Jan, [facility] [place] [facility] [address] [id number] [place] [address]- 3806 Jan, [facility] [place] [facility] [address] [id number] [place] [address]- 9952 Dec, [facility] [place] [facility] [address] [id number] [place] [address]- 1398 Dec, [facility] [place] [facility] [address] [id number] [place] [address]- 5146 Dec, [facility] [place] [facility] [address] [id number] [place] [address]- 4120 Dec, [facility] [address] [id number] [place] [address]- 1960 Oct, [facility] [place] [facility] [address] [id number] [place] [address]- 7141 Aug, [facility] [address] [id number] [place] [address]- 5458 Jul, [facility] [place] [facility] [address] [id number] [place] [address]- 0477 June, [facility] [place] [facility] [address] [id number] [place] [address]- 5967 June, [facility] [place] [facility] [address] [id number] [place] [address]- 0043 June, [facility] [place] [facility] [address] [id number] [place] [address]- 1563 June, [facility] [place] [facility] [address] [id number] [place] [address]- 0709 June, [facility] [place] [facility] [address] [id number] [place] [address]- 7421 May, [facility] [place] [facility] [address] [id number] [place] [address]- 7994 23 May, 2011 [facility] [address] [id number] [place] [address]- 9703 15 Apr, 2011 [facility] [place] [facility] [address] [id number] [place] [address] 2546 13 Apr, 2011 [facility] [address] [id number] [place] [address]- 3726 27 Mar, 2011 [facility] [place] [facility] [address] [id number] [place] [address]- 7681 Feb, [facility] [address] [id number] [place] [address]- 6136 26 Nov, 2010 [facility] [place] [facility] [address] [id number] [place] [address] 13 Nov, 2010 [facility] [place] [facility] [address] [id number] [place] [address] 13 Nov, 2010 [facility] [address] [id number] [place] [address] 17 Apr, 2010 [facility] [place] [facility] [address] [id number] [place] [address] Jan, [facility] [place] [facility] [address] [id number] [place] [address] 24 Dec, 2009 [facility] [place] [facility] [address] [id number] [place] [address] Dec, [facility] [place] [facility] [address] [id number] [place] [address] 29 Nov, 2009 [facility] [place] [facility] [address] [id number] [place] [address] June, [facility] [place] [facility] [address] [id number] [place] [address] 29 Jan, 2009 [facility] [place] [facility] [address] [id number] [place] [address] 28 Jan, 2009 [facility] [address] [id number] [place] [address] 23 Jan, 2009 [facility] [place] [facility] [address] [id number] [place] [address]296 22 Jan, 2009 [facility] [address] [facility] [id number], [place] [address] 16 Jan, 2009 [facility] [place] [facility] [address] [id number], [place] [address] 15 Jan, 2009 [facility] [address] [id number] [place] [address] 15 Jan, 2009 [facility] [place] [facility] [address] [id number], [place] [address] 11 Jan, 2009 [facility] [place] [facility] [address] [facility] [id number], [place] [address] 11 Jan, 2009 [facility] [place] [facility] [address] [id number], [place] [address] 10 Jan, 2009 [facility] [place] [facility] [address] [id number], [place] [address] 04 Jan, 2009 [facility] [place] [facility] [address] [facility] [id number], [place] [address] 02 Jan, 2009 [facility] [place] [facility] [address] [id number], [place] [address] 25 Dec, 2008 [facility] [place] [facility] [address] [id number], [place] [address] 19 Dec, 2008 [facility] [place] [facility] [address] [id number], [place] [address] 17 Dec, 2008 [facility] [place] [facility] [address] [id number], [place] [address] 17 Dec, 2008 [facility] [place] [facility] [address] [facility] [id number], [place] [address] 20 Nov, 2008 [facility] [place] [facility] [address] [facility] [id number] [place] [address] 10 Oct, 2008 IMMUNIZATIONS No Known Immunizations SOCIAL HISTORY Never Assessed REASON FOR VISIT Controlled Med Refill 10/27/2016 PLAN OF CARE VITAL SIGNS MEDICATIONS Medication Instructions Dosage Frequency Start Date End Date Duration Status Hydrocodone-Acetaminophen 7.5-325 MG Orally 3 times a day 1 tablet as needed 8h Sep, 28 days Active RESULTS No Results PROCEDURES No [...]
--- OUTSIDE RECORDS SUMMARY | 2017-12-06 13:54 | XMS REPORT ---
Author Author CHAPARRO MUJICA [facility] Address [address] [place] [address] Care Team Providers Care Commercial Drone Pilot Name Role Phone CHAPARRO MUJICA Unavailable PROBLEMS Type Condition ICD9-CM Code WKB22-TE Code Onset Dates Condition Status SNOMED Code Problem meterman 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 Active 955503801 Problem Type 2 diabetes mellitus with hyperglycemia E11.65 Active 074547174253147 Problem Chronic kidney disease, stage 3 N18.3 Active 379514366 Problem Gout, unspecified M10.9 Active 81002641 Problem Insomnia, unspecified G47.00 Active 379537296 Problem Coronary atherosclerosis of unspecified type of vessel, chemehuevi or graft I25.10 Active 637544682 Problem Gastroesophageal reflux disease, esophagitis presence not specified K21.9 Active 433168542 Problem Primary osteoarthritis of left knee M17.12 Active [id number] Problem Gout of left knee due to renal impairment, unspecified chronicity M10.362 Active 493327764 Problem Mixed hyperlipidemia E78.2 Active 438057135 Problem 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 087404665 Problem Pseudogout M11.20 Active 239125469 Problem Mood disorder F39 Active 05111061 ALLERGIES No Information ENCOUNTERS Encounter Location Date Diagnosis [place] [id number] [address] May, [place] [id number] [facility] [id number], [place] [address] 09 Apr, 2017 Diabetes E11.9 and Mood disorder F39 [place] [id number] [place] [address] 30806- 6953 15 Mar, 2017 Primary osteoarthritis of left knee M17.12 and Tear of lateral meniscus of left knee, unspecified tear type, unspecified whether old or current tear, initial encounter S83.282A [place] [address], [place] [address] Feb, Mood disorder F39 [place] [id number] [place] [address] 86156- 9656 Feb, Pseudogout M11.20 [place] [id number] [place] [address] 51242- 2995 Jan, Other care home (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 [facility] [id number] [place] [address] 09337 -7948 Jan, [place] [id number] [place] [address] 41475- 9662 Jan, Pseudogout M11.20 ; Type 2 diabetes mellitus with hyperglycemia E11.65 and Other meterman (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 [place] [id number] [place] [address]- 1960 Jan, Gout of left knee due to renal impairment, unspecified chronicity M10.362 ; Type 2 diabetes mellitus with diabetic nephropathy E11.21 ; Synovial cyst of popliteal space [Mejia], left knee M71.22 and Low back pain M54.5 [place] [id number] [place] [address] 24538- 6209 Dec, Pseudogout M11.20 [place] [id number] [place] [address] 49329- 1158 14 Dec, 2016 [place] [id number] [place] [address] 20269- 6177 13 Dec, 2016 Type 2 diabetes mellitus with diabetic nephropathy E11.21 and Right anterior knee pain M25.561 [place] [id number] [place] [address] 02768- 5996 Nov, Pseudogout M11.20 [place] [id number] [place] [address] 98877- 0155 Nov, Pseudogout M11.20 ; Chronic kidney disease, stage 3 N18.3 ; Mixed hyperlipidemia E78.2 ; Gout, unspecified M10.9 ; Coronary atherosclerosis of unspecified type of vessel, chemehuevi or graft I25.10 ; Mood disorder F39 and Gastroesophageal reflux disease, esophagitis presence not specified K21.9 [facility] [address], [place] [address] 44[address] Nov, [facility] [id number] [place] [address] 52269- 2012 Oct, Pseudogout M11.20 [facility] [id number] [place] [address] 68286- 0213 Sep, Pseudogout M11.20 [facility] [id number] [place] [address] 16284- 7270 Sep, Pseudogout M11.20 [place] [id number] [place] [address] 18652- 1746 Sep, [facility] [id number] [place] [address] [id number] Aug, [facility] [id number] [place] [address] 97469- 4616 Aug, Diabetes E11.9 ; Chronic kidney disease, stage 3 N18.3 ; Hyperuricemia E79.0 ; Mixed hyperlipidemia E78.2 ; Gastroesophageal reflux disease, esophagitis presence not specified K21.9 ; Gout, unspecified M10.9 ; Coronary atherosclerosis of unspecified type of vessel, chemehuevi or graft I25.10 and Mood disorder F39 [facility] [address], [place] [address]- 7273 June, [facility] [id number] [place] [address] 74787- 3011 June, [facility] [address] [place] [address] 02427- 6028 June, [facility] [id number] [place] [address] 45864- 2578 May, Chronic renal failure, stage 3 (moderate) N18.3 [facility] [id number] [place] [address] 25512- 0039 May, Diabetes E11.9 [facility] [address] [place] [address] 83324- 8893 May, [facility] [id number] [place] [address] 48982- 2335 Apr, [place] [id number] [place] [address] 62504- 9168 Apr, [place] [id number] [place] [address] 24237- 5621 Apr, Cellulitis of right lower extremity L03.115 and Diabetes E11.9 [place] [id number] [place] [address] 68673- 5230 Apr, Type 2 diabetes mellitus with hyperglycemia E11.65 [place] [id number] [place] [address] 84239- 7009 Mar, Cellulitis of right lower extremity L03.115 and Low back pain M54.5 [place] [address] [place] [address] 26308- 7623 Mar, [place] [address] [place] [address] 68175- 5260 Mar, Cellulitis of right lower extremity L03.115 [place] [address] [place] [address] 55411- 4739 Mar, Cellulitis of right lower extremity L03.115 [place] [id number] [place] [address] 40970- 0026 Feb, Cellulitis of right lower extremity L03.115 [facility] [address], [place] [address]- 7734 Feb, Cellulitis of right lower extremity L03.115 [place] [address], [place] [address]- 5757 Feb, [place] [address], [place] [address]- 4295 Feb, Leukocytosis, unspecified type D72.829 ; Chronic renal failure, stage 3 (moderate) N18.3 and Type 2 diabetes mellitus with hyperglycemia E11.65 [place] [address], [place] [address]- 1200 Feb, Leukocytosis, unspecified type D72.829 [place] [address], [place] [address]- 3304 Feb, [place] [address] [place] [address] 99128- 6476 Feb, Cellulitis of right lower extremity L03.115 ; Thrush B37.0 ; Gout of left knee due to renal impairment, unspecified chronicity M10.362 and Chronic renal failure, stage 3 (moderate) N18.3 [place] [address], [place] [address]- 9749 Feb, [place] [address] [place] [address] 88689- 5682 Feb, Right foot infection L08.9 ; Type 2 diabetes mellitus with hyperglycemia E11.65 ; Diabetes E11.9 ; Chronic kidney disease, stage 3 N18.3 and Arthralgia of left knee M25.562 [place] [address], [place] [address]- 6818 Feb, [place] [address], [place] [address]- 0799 Feb, Diabetes E11.9 ; Arthralgia of left knee M25.562 and Thrush B37.0 [place] [address], [place] [address]- 7629 Jan, [place] [address] [place] [address] 26740- 5905 Jan, Type 2 diabetes mellitus with hyperglycemia E11.65 ; Chronic renal failure, stage 3 (moderate) N18.3 and Leukocytosis, unspecified type D72.829 [place] [id number] [place] [address] 72366- 1968 Jan, Type 2 diabetes mellitus with hyperglycemia E11.65 [place] [id number] [place] [address] 75023- 4768 Dec, Gout of left knee due to renal impairment, unspecified chronicity M10.362 [place] [id number] [place] [address] 02443- 2090 Dec, Gout of left knee due to renal impairment, unspecified chronicity M10.362 and Diabetes E11.9 [place] [id number] [place] [address] 96738- 7488 Dec, [place] [id number] [place] [address] 59838- 3731 Dec, [facility] [id number] [place] [address] 23444 -5569 Dec, [place] [id number] [place] [address] 16706- 1711 Dec, Chronic kidney disease, stage 3 N18.3 ; Type 2 diabetes mellitus with diabetic nephropathy E11.21 ; Type 2 diabetes mellitus with hyperglycemia E11.65 and meterman 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 [facility] WALK IN [facility] [id number] [place] [address] 67979 -8346 05 Dec, 2015 Leukocytosis, unspecified type D72.829 ; Chronic renal failure, stage 3 (moderate) N18.3 and Nausea R11.0 [place] [id number] [place] [address] 69166- 2490 Nov, [place] [id number] [place] [address] 98452- 1388 Jul, [place] [id number] [place] [address] 27502- 7811 07 Jul, 2015 Diabetes E11.9 ; Low back pain M54.5 and Other chronic pain G89.29 [place] [address] 94982- 2762 June, [facility] [address] 58401- 2567 June, [place] [address] 76859- 3261 Jan, Viral illness B34.9 [place] [address] 49094- 1691 Jan, Type 2 diabetes mellitus with hyperglycemia E11.65 ; Pain in right foot M79.671 and Localized edema R60.0 [place] [address] 98850- 2334 Jan, [place] [address] 89766- 0211 Dec, Right foot pain M79.671 ; Insomnia, unspecified type G47.00 and Diabetes E11.9 [place] [id number] [place] [address] 02840- 2648 Dec, Pain in right foot M79.671 [place] [id number] [place] [address] 56287- 1086 Nov, [place] [address] 82922- 8058 Sep, [place] [address] 03240- 0641 Sep, Diabetes mellitus, type II 250.00 [facility] [id number] [place] [address] 78742- 5419 May, [place] [address] 96296- 5848 May, [facility] [place] [facility] [address] [id number] [place] [address]- 6947 19 Apr, 2014 [facility] [place] [facility] [address] [id number] [place] [address]- 5432 19 Apr, 2014 [facility] [place] [facility] [address] [id number] [place] [address]- 1319 16 Apr, 2014 [facility] [place] [facility] [address] [id number] [place] [address]- 9617 16 Apr, 2014 [facility] [place] [facility] [address] [id number] [place] [address]- 0306 12 Apr, 2014 [facility] [place] [facility] [address] [id number] [place] [address]- 6256 12 Apr, 2014 [facility] [place] [facility] [address] [id number] [place] [address]- 7790 05 Apr, 2014 [facility] [place] [facility] [address] [id number] [place] [address]- 7153 05 Apr, 2014 [facility] [place] [facility] [address] [id number] [place] [address]- 2012 18 Jan, 2014 [facility] [place] [facility] [address] [id number] [place] [address]- 2921 18 Jan, 2014 [facility] [place] [facility] [address] [id number] [place] [address]- 2349 15 Jan, 2014 [facility] [place] [facility] [address] [id number] [place] [address]- 1088 15 Jan, 2014 [facility] [place] [facility] [address] [id number] [place] [address]- 4646 10 Dec, 2013 [facility] [place] [facility] [address] [id number] [place] [address]- 4900 10 Dec, 2013 [facility] [place] [facility] [address] [id number] [place] [address]- 4630 13 Nov, 2013 [facility] [place] [facility] [address] [id number] [address]- 9801 Nov, [facility] [place] [facility] [address] [id number] [place] [address]- 8975 Oct, [facility] [place] [facility] [address] [id number] [place] [address]- 5947 Oct, [facility] [place] [facility] [address] [id number] [place] [address]- 3712 Oct, [facility] [place] [facility] [address] [id number] [place] [address]- 9867 Oct, [facility] [place] [facility] [address] [id number] [place] [address]- 7749 Sep, [facility] [place] [facility] [address] [id number] [place] [address]- 6192 Sep, [facility] [place] [facility] [address] [id number] [place] [address]- 0266 Sep, [facility] [place] [facility] [address] [id number] [place] [address]- 8833 Sep, [facility] [place] [facility] [address] [id number] [place] [address]- 9116 Sep, [facility] [place] [facility] [address] [id number] [place] [address]- 2632 Sep, [facility] [place] [facility] [address] [id number] [place] [address]- 6873 Sep, [facility] [place] [facility] [address] [id number] [place] [address]- 5298 Sep, [facility] [place] [facility] [address] [id number] [place] [address]- 9523 Sep, [facility] [place] [facility] [address] [id number] [place] [address]- 9098 Sep, [facility] [place] [facility] [address] [id number] [place] [address]- 0538 Sep, [facility] [place] [facility] [address] [id number] [place] [address]- 3910 Sep, [facility] [place] [facility] [address] [id number] [place] [address]- 2463 Aug, [facility] [place] [facility] [address] [id number] [place] [address]- 9020 Aug, [facility] [place] [facility] [address] [id number] [place] [address]- 2689 Aug, [facility] [place] [facility] [address] [id number] [place] [address]- 3598 Aug, [facility] [place] [facility] [address] [id number] [place] [address]- 2799 June, [facility] [place] [facility] [address] [id number] [place] [address]- 6012 May, [facility] [place] [facility] [address] [id number] [place] [address]- 6566 May, [facility] [place] [facility] [address] [id number] [place] [address]- 5914 May, [facility] [place] [facility] [address] [id number] [place] [address]- 7285 18 May, 2013 [facility] [place] [facility] [address] [id number] [place] [address]- 4674 May, [facility] [place] [facility] [address] [id number] [place] [address]- 9897 17 May, 2013 [facility] [place] [facility] [address] [id number] [place] [address]- 7163 16 May, 2013 [facility] [place] [facility] [address] [id number] [place] [address]- 6696 May, [facility] [place] [facility] [address] [id number] [place] [address]- 0497 May, [facility] [place] [facility] [address] [id number] [place] [address]- 6883 May, [facility] [place] [facility] [address] [id number] [place] [address]- 4725 May, [facility] [place] [facility] [address] [id number] [place] [address]- 0062 May, [facility] [place] [facility] [address] [id number] [place] [address]- 3575 Apr, [facility] [place] [facility] [address] [id number] [place] [address]- 2695 Apr, [facility] [place] [facility] [address] [id number] [place] [address]- 2639 Mar, [facility] [place] [facility] [address] [id number] [place] [address]- 8650 Mar, [facility] [place] [facility] [address] [id number] [place] [address]- 3001 Dec, [facility] [place] [facility] [address] [id number] [place] [address]- 7247 Dec, [facility] [place] [facility] [address] [id number] [place] [address]- 8544 Dec, [facility] [place] [facility] [address] [id number] [place] [address]- 0653 Dec, [facility] [place] [facility] [address] [id number], [place] [address]- 8993 Nov, [facility] [place] [facility] [address] [id number], [place] [address]- 6005 Nov, [facility] [place] [facility] [address] [id number] [place] [address]- 2359 Oct, [facility] [place] [facility] [address] [id number] [place] [address]- 9376 Oct, [facility] [place] [facility] [address] [id number] [place] 0049 Aug, [facility] [place] [facility] [address] [id number] [place] [address]- 9720 10 Aug, 2012 [facility] [address] [id number] [place] [address]- 4711 Aug, [facility] [address] [id number] [place] [address]- 7871 Jul, [facility] [address] [id number] [place] [address]- 8527 June, [facility] [address] [id number] [place] [address]- 0914 June, [facility] [address] [id number] [place] [address]- 8452 Apr, [facility] [address] [id number] [place] [address]- 0971 Mar, [facility] [address] [id number] [place] [address]- 6929 Mar, [facility] [address] [id number] [place] [address]- 7653 Mar, [facility] [address] [id number] [place] [address]- 9979 Mar, [facility] [address] [facility] [id number] [place] [address]- 0229 Mar, [facility] [address] [id number] [place] [address]- 0044 Feb, [facility] [address] [id number] [place] [address] 2548 Feb, [facility] [place] [facility] [address] [id number] [place] [address]- 5513 Feb, [facility] [place] [facility] [address] [id number] [place] [address] 2546 Feb, [facility] [address] [id number] [place] [address]- 1074 Jan, [facility] [place] [facility] [address] [id number] [place] [address]- 1161 Jan, [facility] [place] [facility] [address] [id number] [place] [address]- 2226 Dec, [facility] [place] [facility] [address] [id number] [place] [address]- 3766 Dec, [facility] [place] [facility] [address] [id number] [place] [address]- 6686 Dec, [facility] [place] [facility] [address] [id number] [place] [address]- 6569 Dec, [facility] [place] [facility] [address] [id number] [place] [address]- 0266 Oct, [facility] [place] [facility] [address] [id number] [place] [address]- 5846 Aug, [facility] [place] [facility] [address] [id number] [place] [address]- 9676 Jul, [facility] [place] [facility] [address] [id number] [place] [address]- 2834 June, [facility] [place] [facility] [address] [id number] [place] [address]- 6767 June, [facility] [place] [facility] [address] [id number] [place] [address]- 8286 June, [facility] [place] [facility] [address] [id number] [place] [address]- 2356 June, [facility] [place] [facility] [address] [id number] [place] [address]- 4396 June, [facility] [place] [facility] [address] [id number] [place] [address]- 7976 May, [facility] [place] [facility] [address] [id number] [place] [address]- 5886 May, [facility] [place] [facility] [address] [id number] [place] [address]- 3078 15 Apr, 2011 [facility] [address] [id number] [place] [address] 13 Apr, 2011 [facility] [place] [facility] [address] [id number] [place] [address] 27 Mar, 2011 [facility] [place] [facility] [address] [id number] [place] [address] Feb, [facility] [place] [facility] [address] [id number] [place] [address] 26 Nov, 2010 [facility] [place] [facility] [address] [id number] [place] [address] Nov, [facility] [place] [facility] [address] [id number] [place] [address] 13 Nov, 2010 [facility] [address] [id number] [place] [address] 17 Apr, 2010 [facility] [place] [facility] [address] [id number] [place] [address] Jan, [facility] [place] [facility] [address] [id number] [place] [address] Dec, [facility] [place] [facility] [address] [id number] [place] [address] Dec, [facility] [place] [facility] [address] [id number] [place] [address] 29 Nov, 2009 [facility] [place] [facility] [address] [id number] [place] [address] June, [facility] [place] [facility] [address] [id number] [place] [address] 29 Jan, 2009 [facility] [place] [facility] [address] [id number] [place] [address] Jan, [facility] [place] [facility] [address] [id number] [place] [address] Jan, [facility] [place] [facility] [address] [facility] [id number][place] [address] 22 Jan, 2009 [facility] [address] [facility] [id number][place] [address] 16 Jan, 2009 [facility] [address] [facility] [id number] [address] 15 Jan, 2009 [facility] [address] [facility] [id number][place] [address] 15 Jan, 2009 [facility] [address] [facility] [id number][place] [address] Jan, [facility] [address] [facility] [id number][place] [address] Jan, [facility] [address] [id number], [place] [address] Jan, [facility] [id number], [place] [address] 04 Jan, 2009 [facility] [id number], [place] [address] Jan, [facility] [id number], [place] [address] Dec, [facility] [id number], [place] [address] Dec, [facility] [address] [facility] [id number], [place] [address] Dec, [facility] [address] [facility] [id number][place] [address] 17 Dec, 2008 [facility] [address] [facility] [id number] 20 Nov, 2008 [facility] [address] [facility] [id number][place] [address] 10 Oct, 2008 IMMUNIZATIONS No Known Immunizations SOCIAL HISTORY Never Assessed REASON FOR VISIT Hospital admit/DC PLAN OF CARE VITAL SIGNS MEDICATIONS Medication Instructions Dosage Frequency Start Date End Date Duration Status Aspir-81 81 MG Orally Once a day 1 tablet 24h Active NovoLog 100 UNIT/ML Subcutaneous 3 times a day Inject 30 units with meals 8h Dec, Active Insulin Syringe 31G X 5/16 as directed Jan, Active Glucometer as directed Dec, Active Colchicine 0.6 MG Orally Once a day 1 tablet 24h Aug, Sep, Active Seroquel 50 mg Orally Once a day 3 Tablets 24h 15 Jan, 2014 30 days Active Trulicity 0.75 MG/0.5ML Inject 0.5 ml Jan, 160 days Active Uloric 80 MG Orally Once a day 1 tablet 24h Aug, 90 days Active Atorvastatin Calcium 10 MG Orally Once a day 1 tablet 24h 90 days Active Toprol XL 50 MG Orally Once a day 1 tablet 24h 90 days Active Levemir FlexTouch 100 UNIT/ML Subcutaneous 2 times a day Inject 35 units 12h Jan, 53 days Active Omeprazole 40 MG Orally Once a day 1 capsule 24h 90 days Active Plavix 75 MG [...]
--- OUTSIDE RECORDS SUMMARY | 2017-12-06 13:54 | XMS REPORT ---
Author Author CHAPARRO MUJICA [facility] Address [address] [place] [address] Care Team Providers Care Customer Relationship Specialist Name Role Phone CHAPARRO MUJICA Unavailable PROBLEMS Type Condition ICD9-CM Code ZKZ48-BR Code Onset Dates Condition Status SNOMED Code Problem long term care pharmacist 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 Active 782439459 Problem Type 2 diabetes mellitus with hyperglycemia E11.65 Active 891603889833628 Problem Chronic kidney disease, stage 3 N18.3 Active 357054299 Problem Gout, unspecified M10.9 Active 04337494 Problem Insomnia, unspecified G47.00 Active 127235755 Problem Coronary atherosclerosis of unspecified type of vessel, hughes or graft I25.10 Active 153154373 Problem Gastroesophageal reflux disease, esophagitis presence not specified K21.9 Active 597510612 Problem Primary osteoarthritis of left knee M17.12 Active 199325258246512 Problem Gout of left knee due to renal impairment, unspecified chronicity M10.362 Active 495708895 Problem Mixed hyperlipidemia E78.2 Active 846848683 Problem 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 164712907 Problem Pseudogout M11.20 Active 983064792 Problem Mood disorder F39 Active 58000411 ALLERGIES No Information ENCOUNTERS Encounter Location Date Diagnosis [place] [id number] [place] [address] 40967- 0256 June, Type 2 diabetes mellitus with hyperglycemia E11.65 [place] [id number] [place] [address] 11638- 5098 May, Mood disorder F39 ; Gastroesophageal reflux disease, esophagitis presence not specified K21.9 ; Gout, unspecified M10.9 ; Coronary atherosclerosis of unspecified type of vessel, hughes or graft I25.10 and Type 2 diabetes mellitus with hyperglycemia E11.65 [place] [id number] [address] 6076 May, Type 2 diabetes mellitus with hyperglycemia E11.65 [place] [id number] [place] [address] 06715- 4323 Apr, Diabetes E11.9 and Mood disorder F39 [facility] [place] [id number] [place] [address] 26922- 4675 15 Mar, 2017 Primary osteoarthritis of left knee M17.12 and Tear of lateral meniscus of left knee, unspecified tear type, unspecified whether old or current tear, initial encounter S83.282A [place] [id number] [place] [address] 30056- 0161 Feb, Mood disorder F39 [place] [id number] [place] [address] 22337- 9065 Feb, Pseudogout M11.20 [place] [id number] [place] [address] 54144- 4072 Jan, 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 [facility] [id number] [place] [address] 63382 -0822 Jan, [place] [id number] [place] [address] 49239- 4694 Jan, Pseudogout M11.20 ; Type 2 diabetes mellitus with hyperglycemia E11.65 and Other halfway (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 [place] [id number] [place] [address] 21752- 8594 Jan, Gout of left knee due to renal impairment, unspecified chronicity M10.362 ; Type 2 diabetes mellitus with diabetic nephropathy E11.21 ; Synovial cyst of popliteal space [Mejia], left knee M71.22 and Low back pain M54.5 [place] [id number] [place] [address] 73298- 5516 Dec, Pseudogout M11.20 [place] [id number] [place] [address] 11796- 8494 Dec, [place] [id number] [place] [address] 20687- 8458 Dec, Type 2 diabetes mellitus with diabetic nephropathy E11.21 and Right anterior knee pain M25.561 [place] [id number] [place] [address] 51957- 7252 Nov, Pseudogout M11.20 [place] [id number] [place] [address] 35131- 0426 Nov, Pseudogout M11.20 ; Chronic kidney disease, stage 3 N18.3 ; Mixed hyperlipidemia E78.2 ; Gout, unspecified M10.9 ; Coronary atherosclerosis of unspecified type of vessel, hughes or graft I25.10 ; Mood disorder F39 and Gastroesophageal reflux disease, esophagitis presence not specified K21.9 [place] [id number] [place] [address] 45352- 7559 Nov, [place] [id number] [place] [address] 34194- 3206 Oct, Pseudogout M11.20 [place] [id number] [place] [address] 00232- 6639 Sep, Pseudogout M11.20 [place] [id number] [place] [address] 06815- 7009 Sep, Pseudogout M11.20 [place] [id number] [place] [address] 74359- 4105 Sep, [facility] [id number] [place] [address] [id number] Aug, [place] [address] 89445- 0052 Aug, Diabetes E11.9 ; Chronic kidney disease, stage 3 N18.3 ; Hyperuricemia E79.0 ; Mixed hyperlipidemia E78.2 ; Gastroesophageal reflux disease, esophagitis presence not specified K21.9 ; Gout, unspecified M10.9 ; Coronary atherosclerosis of unspecified type of vessel, hughes or graft I25.10 and Mood disorder F39 [facility], [place] [id number] [place] [address] 14945- 3335 June, [facility], [place] [id number] [place] [address] 71127- 1004 June, [facility] [place] [id number] [place] [address] 41905- 9581 June, [facility] [place] [id number] [place] [address] 85676- 8224 May, Chronic renal failure, stage 3 (moderate) N18.3 [facility] [place] [id number] [place] [address] 88291- 9904 May, Diabetes E11.9 [facility] [place] [id number] [place] [address] 35899- 8023 May, [facility] [place] [id number] [place] [address] 28118- 8996 Apr, [facility] [place] [id number] [place] [address] 05756- 9039 Apr, [facility] [place] [id number] [place] [address] 20287- 4303 Apr, Cellulitis of right lower extremity L03.115 and Diabetes E11.9 [facility] [place] [id number] [place] [address] 77195- 3014 Apr, Type 2 diabetes mellitus with hyperglycemia E11.65 [facility] [place] [id number] [place] [address] 44568- 9027 Mar, Cellulitis of right lower extremity L03.115 and Low back pain M54.5 [facility] [place] [id number] [place] [address] 26617- 3833 Mar, [facility] [place] [id number] [place] [address] 04390- 2812 Mar, Cellulitis of right lower extremity L03.115 [facility], [place] [address] [address]- 5584 Mar, Cellulitis of right lower extremity L03.115 [facility], [place] [address] [address]- 8291 Feb, Cellulitis of right lower extremity L03.115 [place] [address] [place] [address] 68564- 3808 Feb, Cellulitis of right lower extremity L03.115 [place] [address] [address]- 6961 Feb, [place] [address] [place] [address] 26806- 6848 Feb, Leukocytosis, unspecified type D72.829 ; Chronic renal failure, stage 3 (moderate) N18.3 and Type 2 diabetes mellitus with hyperglycemia E11.65 [place] [address] [address]- 5580 Feb, Leukocytosis, unspecified type D72.829 [place] [address] [address]- 2745 Feb, [place] [address] [place] [address] 58717- 7852 Feb, Cellulitis of right lower extremity L03.115 ; Thrush B37.0 ; Gout of left knee due to renal impairment, unspecified chronicity M10.362 and Chronic renal failure, stage 3 (moderate) N18.3 [place] [address] [address]- 3636 Feb, [place] [address] [place] [address] 87127- 9722 Feb, Right foot infection L08.9 ; Type 2 diabetes mellitus with hyperglycemia E11.65 ; Arthralgia of left knee M25.562 ; Chronic kidney disease , stage 3 N18.3 and Diabetes E11.9 [place] [id number] [place] [address] 98244- 7469 Feb, [place] [address] 56322- 9524 Feb, Diabetes E11.9 ; Arthralgia of left knee M25.562 and Thrush B37.0 [place] [address] 40841- 4441 Jan, [place] [address] 21703- 9854 Jan, Type 2 diabetes mellitus with hyperglycemia E11.65 ; Chronic renal failure, stage 3 (moderate) N18.3 and Leukocytosis, unspecified type D72.829 [place] [id number] [place] [address] 10827- 6983 Jan, Type 2 diabetes mellitus with hyperglycemia E11.65 [place] [id number] [place] [address] 66112- 3178 Dec, Gout of left knee due to renal impairment, unspecified chronicity M10.362 [place] [id number] [place] [address] 13402- 5513 Dec, Gout of left knee due to renal impairment, unspecified chronicity M10.362 and Diabetes E11.9 [place] [id number] [place] [address] 37784- 1476 Dec, [place] [id number] [place] [address] 60846- 4322 Dec, [facility] [id number] [place] [address] 42026 -2992 Dec, [place] [id number] [place] [address] 41143- 0242 Dec, Chronic kidney disease, stage 3 N18.3 ; Type 2 diabetes mellitus with diabetic nephropathy E11.21 ; Type 2 diabetes mellitus with hyperglycemia E11.65 and long term care pharmacist 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 [facility] [id number] [place] [address] 94270 -0527 Dec, Leukocytosis, unspecified type D72.829 ; Chronic renal failure, stage 3 (moderate) N18.3 and Nausea R11.0 [place] [id number] [place] [address] 61187- 4113 Nov, [place] [address] 14842- 4223 Jul, [place] [address] 50626- 2076 Jul, Diabetes E11.9 ; Low back pain M54.5 and Other chronic pain G89.29 [place] [id number] [place] [address] 27159- 4726 June, [place] [address] 15890- 4693 June, [place] [address] 62806- 9011 Jan, Viral illness B34.[address] 06025- 1385 Jan, Type 2 diabetes mellitus with hyperglycemia E11.65 ; Pain in right foot M79.671 and Localized edema R60.0 [place] [id number] [place] [address] 30905- 4764 Jan, [place] [address] 41815- 9504 Dec, Right foot pain M79.671 ; Insomnia, unspecified type G47.00 and Diabetes E11.9 [place] [id number] [place] [address] 04574- 8595 16 Dec, 2014 Pain in right foot M79.671 [place] [address] 67266- 1915 Nov, [facility] [address] [id number] [place] [address]- 5197 Sep, [facility] [address] [facility] [id number] [place] [address]- 8263 Sep, Diabetes mellitus, type II 250.00 [facility] [address] [facility] [id number] [place] [address]- 6510 May, [facility] [address] [facility] [id number] [place] [address]- 6537 May, [facility] [address] [id number] [place] [address]- 2725 Apr, [facility] [address] [facility] [id number] [place] [address]- 5850 Apr, [facility] [address] [facility] [id number] [place] [address]- 6110 16 Apr, 2014 [facility] [address] [facility] [id number] [place] [address]- 7673 16 Apr, 2014 [facility] [address] [facility] [id number] [place] [address]- 4663 Apr, [facility] [address] [facility] [id number] [place] [address]- 1193 Apr, [facility] [address] [facility] [id number] [place] [address]- 2552 05 Apr, 2014 [facility] [place] [facility] [address] [id number] [address]- 8326 05 Apr, 2014 [facility] [place] [facility] [address] [id number] [place] [address]- 0862 Jan, [facility] [place] [facility] [address] [facility] [id number] [place] [address]- 4576 18 Jan, 2014 [facility] [place] [facility] [address] [facility] [id number] [place] [address]- 3709 15 Jan, 2014 [facility] [place] [facility] [address] [facility] [id number] [place] [address]- 5625 15 Jan, 2014 [facility] [place] [facility] [address] [id number] [place] [address]- 4671 Dec, [facility] [place] [facility] [address] [id number] [place] [address]- 0888 Dec, [facility] [place] [facility] [address] [id number] [place] [address]- 8678 Nov, [facility] [place] [facility] [address] [id number] [place] [address]- 3311 Nov, [facility] [place] [facility] [address] [id number] [place] [address]- 2344 Oct, [facility] [place] [facility] [address] [id number] [place] [address]- 5724 Oct, [facility] [place] [facility] [address] [id number] [place] [address]- 8402 Oct, [facility] [place] [facility] [address] [id number] [place] [address]- 8118 Oct, [facility] [place] [facility] [address] [id number] [place] [address]- 6411 Sep, [facility] [place] [facility] [address] [id number] [place] [address]- 0387 Sep, [facility] [place] [facility] [address] [id number] [place] [address]- 8766 Sep, [facility] [place] [facility] [address] [id number] [place] [address]- 2832 Sep, [facility] [place] [facility] [address] [id number] [place] [address]- 6404 Sep, [facility] [place] [facility] [address] [id number] [place] [address]- 5894 Sep, [facility] [place] [facility] [address] [id number] [place] [address]- 4036 Sep, [facility] [place] [facility] [address] [id number] [place] [address]- 4746 Sep, [facility] [place] [facility] [address] [id number] [place] [address]- 1684 Sep, [facility] [place] [facility] [address] [id number] [place] 3003 Sep, [facility] [place] [facility] [address] [id number] [place] [address]- 2381 Sep, [facility] [place] [facility] [address] [id number] [place] [address]- 7068 Sep, [facility] [place] [facility] [address] [id number] [place] [address]- 3185 Aug, [facility] [place] [facility] [address] [id number] [place] [address]- 6710 Aug, [facility] [place] [facility] [address] [id number] [place] [address]- 0774 Aug, [facility] [place] [facility] [address] [id number] [place] [address]- 7084 Aug, [facility] [place] [facility] [address] [id number] [place] [address]- 4580 June, [facility] [place] [facility] [address] [id number] [place] [address]- 1729 May, [facility] [place] [facility] [address] [id number] [place] [address]- 7032 May, [facility] [place] [facility] [address] [id number] [place] [address]- 5964 May, [facility] [place] [facility] [address] [id number] [place] [address]- 4672 May, [facility] [place] [facility] [address] [id number] [place] 6213 May, [facility] [place] [facility] [address] [id number] [address]- 0223 17 May, 2013 [facility] [place] [facility] [address] [id number] [place] [address]- 7235 16 May, 2013 [facility] [place] [facility] [address] [id number] [place] [address]- 1548 16 May, 2013 [facility] [place] [facility] [address] [id number] [place] [address]- 7669 May, [facility] [place] [facility] [address] [id number] [place] [address]- 1951 May, [facility] [place] [facility] [address] [id number] [place] [address]- 8195 May, [facility] [place] [facility] [address] [id number] [place] [address]- 3302 May, [facility] [place] [facility] [address] [facility] [id number] [place] [address]- 9654 Apr, [facility] [place] [facility] [address] [id number] [place] [address]- 3991 Apr, [facility] [place] [facility] [address] [id number] [place] [address]- 5792 Mar, [facility] [place] [facility] [address] [facility] [id number] [place] [address]- 9887 Mar, [facility] [place] [facility] [address] [id number] [place] [address]- 8038 Dec, [facility] [place] [facility] [address] [id number] [place] [address]- 8891 Dec, [facility] [place] [facility] [address] [id number] [place] [address]- 3907 Dec, [facility] [place] [facility] [address] [id number] [place] [address]- 4682 Dec, [facility] [place] [facility] [address] [facility] [id number] [place] [address]- 1091 Nov, [facility] [place] [facility] [address] [id number] [place] [address]- 3157 25 Nov, 2012 [facility] [place] [facility] [address] [id number] [place] [address]- 4389 30 Oct, 2012 [facility] [place] [facility] [address] [id number] [place] [address]- 7323 Oct, [facility] [place] [facility] [address] [id number] [place] [address]- 2695 Aug, [facility] [place] [facility] [address] [id number] [place] [address]- 7299 Aug, [facility] [place] [facility] [address] [id number] [place] [address]- 2215 Aug, [facility] [place] [facility] [address] [id number] [place] [address]- 2976 Jul, [facility] [place] [facility] [address] [id number] [place] [address]- 8062 June, [facility] [place] [facility] [address] [id number] [place] [address]- 3217 June, [facility] [place] [facility] [address] [id number] [place] [address]- 7043 Apr, [facility] [place] [facility] [address] [id number] [place] [address]- 9780 Mar, [facility] [place] [facility] [address] [id number] [place] [address]- 3689 Mar, [facility] [place] [facility] [address] [id number] [place] [address]- 1042 Mar, [facility] [place] [facility] [address] [id number] [place] [address]- 2835 Mar, [facility] [place] [facility] [address] [id number] [place] [address]- 8988 Mar, [facility] [place] [facility] [address] [id number] [place] [address]- 3277 Feb, [facility] [address] [id number] [place] [address]- 8161 Feb, [facility] [place] [facility] [address] [id number] [place] [address]- 1593 Feb, [facility] [place] [facility] [address] [id number] [place] [address]- 2454 Feb, [facility] [place] [facility] [address] [id number] [place] [address]- 9990 Jan, [facility] [place] [facility] [address] [id number] [place] 8306 Jan, [facility] [place] [facility] [address] [id number] [place] [address]- 8638 Dec, [facility] [place] [facility] [address] [id number] [place] [address]- 6384 Dec, [facility] [place] [facility] [address] [id number] [place] [address]- 6020 Dec, [facility] [place] [facility] [address] [id number] [place] [address]- 6857 Dec, [facility] [place] [facility] [address] [id number] [place] [address]- 1327 Oct, [facility] [place] [facility] [address] [id number] [place] [address]- 1119 Aug, [facility] [place] [facility] [address] [id number] [place] [address]- 5073 Jul, [facility] [place] [facility] [address] [id number] [place] [address]- 3084 June, [facility] [place] [facility] [address] [id number] [place] [address]- 6526 June, [facility] [place] [facility] [address] [id number] [place] 0660 June, [facility] [place] [facility] [address] [id number] [place] [address] June, [facility] [address] [id number] [place] [address] June, [facility] [place] [facility] [address] [id number] [place] [address] May, [facility] [address] [id number] [place] [address] May, [facility] [address] [id number] [place] [address] Apr, [facility] [address] [id number] [place] [address] Apr, [facility] [address] [id number] [place] [address] Mar, [facility] [address] [id number] [place] [address] Feb, [facility] [address] [id number] [place] [address] Nov, [facility] [address] [id number] [place] [address] Nov, [facility] [address] [facility] [id number] [place] [address] Nov, [facility] [address] [id number] [place] [address] 17 Apr, 2010 [facility] [address] [id number] [place] [address] Jan, [facility] [place] [facility] [address] [id number] [place] [address] Dec, [facility] [place] [facility] [address] [id number] [place] [address] Dec, [facility] [place] [facility] [address] [id number] [place] [address] 29 Nov, 2009 [facility] [address] [id number] [place] [address] June, [facility] [address] [id number] [place] [address] 29 Jan, 2009 [facility] [address] [id number] [place] [address] 28 Jan, 2009 [facility] [address] [id number] [place] [address] 23 Jan, 2009 [facility] [address] [id number] [place] [address] 22 Jan, 2009 [facility] [address] [id number] [place] [address] 16 Jan, 2009 [facility] [address] [facility] [id number] [place] [address] 15 Jan, 2009 [facility] [address] [id number] [place] [address] 15 Jan, 2009 [facility] [address] [id number] [place] [address] 11 Jan, 2009 [facility] [address] [id number] [place] [address] 11 Jan, 2009 [facility] [address] [id number] [place] [address] 10 Jan, 2009 [facility] [place] [facility] [address] [id number] [place] [address] 04 Jan, 2009 [facility] [place] [facility] [address] [id number] [place] [address] 02 Jan, 2009 [facility] [place] [facility] [address] [id number] [place] [address] 25 Dec, 2008 [facility] [place] [facility] [address] [id number] [place] [address] 19 Dec, 2008 [facility] [place] [facility] [address] [facility] [id number] [place] [address] Dec, [facility] [place] [address] [facility] [id number] [place] [address] Dec, [facility] [place] [address] [facility] [id number] [place] [address] Nov, [facility] [place] [address] [facility] [id number] [place] [address] Oct, IMMUNIZATIONS No Known Immunizations SOCIAL HISTORY Never Assessed REASON FOR VISIT Controlled Med Refill PLAN OF CARE VITAL SIGNS MEDICATIONS Unknown [...] left knee pseudogout status post joint fluid analysis-[facility] 09/20/16
--- OUTSIDE RECORDS SUMMARY | 2017-12-06 13:55 | XMS REPORT ---
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 596270239 Problem Type 2 diabetes mellitus with hyperglycemia E11.65 Active 714460682620863 Problem Chronic kidney disease, stage 3 N18.3 Active 908546236 Problem Gout, unspecified M10.9 Active 91432636 Problem Insomnia, unspecified G47.00 Active 850883718 Problem Coronary atherosclerosis of unspecified type of vessel, shinnecock or graft I25.10 Active 261277510 Problem Gastroesophageal reflux disease, esophagitis presence not specified K21.9 Active 919103487 Problem Primary osteoarthritis of left knee M17.12 Active [id number] Problem Gout of left knee due to renal impairment, unspecified chronicity M10.362 Active 876497342 Problem Mixed hyperlipidemia E78.2 Active 549902907 Problem 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 244435615 Problem Pseudogout M11.20 Active 824224760 Problem Mood disorder F39 Active 71361825 ALLERGIES Substance Reaction Event Type Date Status Acetaminophen-Codeine #3 Failed Ameritox UDS- [facility] Drug Allergy Dec, Active ENCOUNTERS Encounter Location Date Diagnosis [facility] [address] [facility] [id number], [place] [address] June, Type 2 diabetes mellitus with hyperglycemia E11.65 [facility] [address] [facility] [id number], [place] [address] May, Mood disorder F39 ; Gastroesophageal reflux disease, esophagitis presence not specified K21.9 ; Gout, unspecified M10.9 ; Coronary atherosclerosis of unspecified type of vessel, shinnecock or graft I25.10 and Type 2 diabetes mellitus with hyperglycemia E11.65 [facility] [id number] [address] May, Type 2 diabetes mellitus with hyperglycemia E11.65 [facility] [id number] [place] [address] 56884- 1345 Apr, Diabetes E11.9 and Mood disorder F39 [facility] [id number] [place] [address] 14153- 1534 15 Mar, 2017 Primary osteoarthritis of left knee M17.12 and Tear of lateral meniscus of left knee, unspecified tear type, unspecified whether old or current tear, initial encounter S83.282A [facility] [id number] [place] [address] 10410- 3648 Feb, Mood disorder F39 [place] [id number] [place] [address] 34325- 9655 Feb, Pseudogout M11.20 [facility] [id number] [place] [address] 63430- 2236 Jan, Other residential (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 [facility] [id number] [place] [address] 09627 -8477 Jan, [place] [address] [place] [address] 01831- 6732 Jan, Pseudogout M11.20 ; Type 2 diabetes mellitus with hyperglycemia E11.65 and 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 [place] [address] [place] [address] 26211- 5425 Jan, Gout of left knee due to renal impairment, unspecified chronicity M10.362 ; Type 2 diabetes mellitus with diabetic nephropathy E11.21 ; Synovial cyst of popliteal space [Mejia], left knee M71.22 and Low back pain M54.5 [facility] [address] [place] [address] 62242- 0451 Dec, Pseudogout M11.20 [place] [address] [place] [address] 29516- 9637 Dec, [facility] [place] [id number] [place] [address] 53643- 6461 Dec, Type 2 diabetes mellitus with diabetic nephropathy E11.21 and Right anterior knee pain M25.561 [facility] [address] 25448- 8146 Nov, Pseudogout M11.20 [facility] [id number] [place] [address] 76646- 2421 Nov, Pseudogout M11.20 ; Chronic kidney disease, stage 3 N18.3 ; Mixed hyperlipidemia E78.2 ; Gout, unspecified M10.9 ; Coronary atherosclerosis of unspecified type of vessel, shinnecock or graft I25.10 ; Mood disorder F39 and Gastroesophageal reflux disease, esophagitis presence not specified K21.9 [facility] [id number] [place] [address] 14901- 7254 Nov, [facility] [id number] [place] [address] 68237- 7834 Oct, Pseudogout M11.20 [facility] [id number] [place] [address] 37490- 3123 Sep, Pseudogout M11.20 [facility] [id number] [place] [address] 00114- 0567 Sep, Pseudogout M11.20 [place] [id number] [place] [address] 21465- 8129 Sep, [facility] [address] [id number] Aug, [place] [id number] [place] [address] 25854- 8363 Aug, Diabetes E11.9 ; Chronic kidney disease, stage 3 N18.3 ; Hyperuricemia E79.0 ; Mixed hyperlipidemia E78.2 ; Gastroesophageal reflux disease, esophagitis presence not specified K21.9 ; Gout, unspecified M10.9 ; Coronary atherosclerosis of unspecified type of vessel, shinnecock or graft I25.10 and Mood disorder F39 [place] [id number] [place] [address] 72906- 9459 June, [place] [id number] [place] [address] 88163- 3521 June, [place] [address] 98818- 5907 June, [place] [address] 60886- 7932 May, Chronic renal failure, stage 3 (moderate) N18.3 [place] [id number] [place] [address] 47005- 6531 May, Diabetes E11.9 [place] [id number] [place] [address] 11480- 8226 May, [place] [id number] [place] [address] 04842- 5984 Apr, [place] [id number] [place] [address] 72438- 5365 Apr, [place] [id number] [place] [address] 69524- 1610 Apr, Cellulitis of right lower extremity L03.115 and Diabetes E11.9 [place] [id number] [place] [address] 66771- 4329 Apr, Type 2 diabetes mellitus with hyperglycemia E11.[address] [address]87- 8727 Mar, Cellulitis of right lower extremity L03.115 and Low back pain M54.5 [place] [id number] [place] [address] 23010- 5777 Mar, [id number] [address] 3716 Mar, Cellulitis of right lower extremity L03.115 [place] [address], [place] [address] 7758 Mar, Cellulitis of right lower extremity L03.115 [place] [address], [place] [address]- 1286 Feb, Cellulitis of right lower extremity L03.115 [place] [address], [place] [address]- 3694 Feb, Cellulitis of right lower extremity L03.115 [place] [address] [place] [address] 36289- 1139 Feb, [place] [address], [place] [address] 3033 Feb, Leukocytosis, unspecified type D72.829 ; Chronic renal failure, stage 3 (moderate) N18.3 and Type 2 diabetes mellitus with hyperglycemia E11.65 [place] [address], [place] [address]- 5472 Feb, Leukocytosis, unspecified type D72.829 [place] [address], [place] [address]- 1057 Feb, [place] [address] [address]- 0155 Feb, Cellulitis of right lower extremity L03.115 ; Thrush B37.0 ; Gout of left knee due to renal impairment, unspecified chronicity M10.362 and Chronic renal failure, stage 3 (moderate) N18.3 [place] [address], [place] [address]- 5013 Feb, [place] [id number] [address]- 4845 Feb, Right foot infection L08.9 ; Type 2 diabetes mellitus with hyperglycemia E11.65 ; Arthralgia of left knee M25.562 ; Chronic kidney disease , stage 3 N18.3 and Diabetes E11.9 [place] [id number] [place] [address] 04892- 7339 Feb, [place] [id number] [place] [address] 72451- 6699 Feb, Diabetes E11.9 ; Arthralgia of left knee M25.562 and Thrush B37.0 [place] [id number] [place] [address] 20096- 1318 Jan, [place] [id number] [place] [address] 74144- 7649 Jan, Type 2 diabetes mellitus with hyperglycemia E11.65 ; Chronic renal failure, stage 3 (moderate) N18.3 and Leukocytosis, unspecified type D72.829 [place] [id number] [place] [address] 23481- 0926 Jan, Type 2 diabetes mellitus with hyperglycemia E11.65 [place] [id number] [place] [address] 04879- 1228 Dec, Gout of left knee due to renal impairment, unspecified chronicity M10.362 [place] [address] [place] [address] 74602- 9888 Dec, Gout of left knee due to renal impairment, unspecified chronicity M10.362 and Diabetes E11.9 [place] [address] [place] [address] 44536- 1743 Dec, [place] [address] [place] [address] 67093- 5904 Dec, [facility] [address] [place] [address] 55086 -5213 Dec, [place] [address] [place] [address] 68454- 8747 Dec, Chronic kidney disease, stage 3 N18.3 ; Type 2 diabetes mellitus with diabetic nephropathy E11.21 ; Type 2 diabetes mellitus with hyperglycemia E11.65 and alf 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 [facility] [id number] [place] [address] 36650 -5270 Dec, Leukocytosis, unspecified type D72.829 ; Chronic renal failure, stage 3 (moderate) N18.3 and Nausea R11.0 [place] [id number] [place] [address] 78546- 0868 Nov, [facility] [id number] [place] [address] 78721- 2051 Jul, [place] [address] 19107- 7870 Jul, Diabetes E11.9 ; Low back pain M54.5 and Other chronic pain G89.29 [place] [address] 75207- 4034 June, [facility] [id number] [place] [address] 32691- 5143 June, [place] [address] 81918- 8140 Jan, Viral illness B34.9 [place] [address] 26128- 9494 08 Jan, 2015 Type 2 diabetes mellitus with hyperglycemia E11.65 ; Pain in right foot M79.671 and Localized edema R60.0 [place] [id number] [place] [address] 03001- 8688 07 Jan, 2015 [place] [address] 35589- 6794 Dec, Right foot pain M79.671 ; Insomnia, unspecified type G47.00 and Diabetes E11.9 [place] [id number] [place] [address] 60421- 6547 16 Dec, 2014 Pain in right foot M79.671 [facility] [place] [facility] [address] [id number] [place] [address]- 7383 Nov, [facility] [address] [id number] [place] [address]- 7350 Sep, [facility] [place] [facility] [address] [facility] [id number] [place] [address]- 1133 Sep, Diabetes mellitus, type II 250.00 [facility] [place] [facility] [address] [id number] [place] [address]- 6649 14 May, 2014 [facility] [place] [facility] [address] [id number] [place] [address]- 6177 May, [facility] [place] [facility] [address] [facility] [id number] [place] [address]- 1617 Apr, [facility] [place] [facility] [address] [facility] [id number] [place] [address]- 1105 Apr, [facility] [place] [facility] [address] [facility] [id number], [place] [address]- 3811 16 Apr, 2014 [facility] [place] [facility] [address] [facility] [id number] [place] [address]- 0283 16 Apr, 2014 [facility] [place] [facility] [address] [facility] [id number], [place] [address]- 3976 Apr, [facility] [place] [facility] [address] [facility] [id number], [place] [address]- 8110 Apr, [facility] [place] [facility] [address] [facility] [id number], [place] [address]- 7530 05 Apr, 2014 [facility] [place] [facility] [address] [facility] [id number] [place] [address]- 1091 05 Apr, 2014 [facility] [place] [facility] [address] [facility] [id number], [place] [address]- 3063 Jan, [facility] [place] [facility] [address] [facility] [id number], [place] [address]- 3776 Jan, [facility] [place] [facility] [address] [facility] [id number], [place] [address]- 2419 15 Jan, 2014 [facility] [place] [facility] [address] [id number] [place] [address]- 3608 15 Jan, 2014 [facility] [place] [facility] [address] [id number] [place] [address]- 1273 Dec, [facility] [place] [facility] [address] [id number] [place] [address]- 9723 Dec, [facility] [place] [facility] [address] [id number] [place] [address]- 3295 Nov, [facility] [place] [facility] [address] [id number] [place] [address]- 3002 Nov, [facility] [place] [facility] [address] [id number] [place] [address]- 4722 Oct, [facility] [place] [facility] [address] [id number] [place] [address]- 9019 Oct, [facility] [place] [facility] [address] [id number] [place] [address]- 4968 Oct, [facility] [place] [facility] [address] [id number] [place] [address]- 4941 05 Oct, 2013 [facility] [place] [facility] [address] [facility] [id number] [place] [address]- 1347 Sep, [facility] [place] [facility] [address] [id number] [place] [address]- 5484 Sep, [facility] [place] [facility] [address] [id number], [place] [address]- 1368 Sep, [facility] [place] [facility] [address] [id number] [place] [address]- 6421 Sep, [facility] [place] [facility] [address] [id number] [place] [address]- 3225 Sep, [facility] [place] [facility] [address] [id number] [place] [address]- 3448 Sep, [facility] [place] [facility] [address] [id number] [place] [address]- 8355 Sep, [facility] [place] [facility] [address] [id number] [place] 3844 Sep, [facility] [place] [facility] [address] [id number] [place] [address]- 1647 Sep, [facility] [place] [facility] [address] [id number] [place] [address]- 7286 Sep, [facility] [place] [facility] [address] [id number] [place] [address]- 4191 Sep, [facility] [place] [facility] [address] [id number] [place] [address]- 5699 Sep, [facility] [place] [facility] [address] [id number] [place] [address]- 4400 Aug, [facility] [place] [facility] [address] [id number] [place] [address]- 2412 Aug, [facility] [place] [facility] [address] [id number] [place] [address]- 5757 Aug, [facility] [place] [facility] [address] [id number] [place] [address]- 2643 Aug, [facility] [place] [facility] [address] [id number] [place] [address]- 3774 June, [facility] [place] [facility] [address] [id number] [place] [address]- 9819 May, [facility] [place] [facility] [address] [id number] [place] [address]- 8625 24 May, 2013 [facility] [place] [facility] [address] [id number] [place] [address]- 3069 May, [facility] [place] [facility] [address] [id number] [place] [address]- 6397 18 May, 2013 [facility] [place] [facility] [address] [id number] [place] [address]- 8127 17 May, 2013 [facility] [place] [facility] [address] [id number] [place] [address]- 5733 17 May, 2013 [facility] [place] [facility] [address] [id number] [place] [address]- 9061 16 May, 2013 [facility] [place] [facility] [address] [id number] [place] [address]- 2505 16 May, 2013 [facility] [place] [facility] [address] [id number] [place] [address]- 6479 14 May, 2013 [facility] [place] [facility] [address] [id number] [place] [address]- 9552 May, [facility] [place] [facility] [address] [id number] [place] [address]- 8389 May, [facility] [place] [facility] [address] [id number] [place] [address]- 5224 May, [facility] [place] [facility] [address] [id number] [place] [address]- 5446 Apr, [facility] [place] [facility] [address] [id number] [place] [address]- 1735 Apr, [facility] [place] [facility] [address] [id number] [place] [address]- 1579 Mar, [facility] [place] [facility] [address] [id number] [place] [address]- 5279 Mar, [facility] [place] [facility] [address] [id number], [place] [address]- 0005 Dec, [facility] [place] [facility] [address] [id number] [place] [address]- 3623 Dec, [facility] [place] [facility] [address] [id number] [place] [address]- 0963 Dec, [facility] [place] [facility] [address] [id number] [place] [address]- 6635 Dec, [facility] [place] [facility] [address] [id number] [place] [address]- 4006 Nov, [facility] [address] [id number] [place] [address]- 7827 Nov, [facility] [address] [id number] [place] [address]- 3747 30 Oct, 2012 [facility] [address] [id number] [place] [address]- 7638 Oct, [facility] [address] [id number] [place] [address]- 4314 Aug, [facility] [address] [id number] [place] [address]- 9155 Aug, [facility] [address] [id number] [place] [address]- 0038 Aug, [facility] [address] [id number] [place] [address]- 7031 Jul, [facility] [address] [id number] [place] [address]- 8757 June, [facility] [address] [id number] [place] [address]- 4587 June, [facility] [address] [facility] [id number] [place] [address]- 4260 Apr, [facility] [address] [id number] [place] [address]- 9336 Mar, [facility] [address] [id number] [place] [address]- 6664 Mar, [facility] [place] [facility] [address] [id number] [place] [address]- 4806 Mar, [facility] [address] [id number] [place] [address]- 2546 Mar, [facility] [address] [id number] [place] [address]- 2468 Mar, [facility] [address] [id number] [place] [address]- 8430 Feb, [facility] [place] [facility] [address] [id number] [place] [address]- 9300 Feb, [facility] [place] [facility] [address] [id number] [place] [address]- 5494 Feb, [facility] [place] [facility] [address] [id number] [place] [address]- 4294 Feb, [facility] [place] [facility] [address] [id number] [place] [address]- 6219 Jan, [facility] [place] [facility] [address] [id number] [place] [address]- 7729 Jan, [facility] [place] [facility] [address] [id number] [place] [address]- 4006 Dec, [facility] [place] [facility] [address] [id number] [place] [address]- 9892 Dec, [facility] [place] [facility] [address] [id number] [place] [address]- 6337 Dec, [facility] [place] [facility] [address] [id number] [place] [address]- 8209 Dec, [facility] [place] [facility] [address] [id number], [place] [address]- 5191 Oct, [facility] [place] [facility] [address] [id number], [place] [address]- 5012 Aug, [facility] [place] [facility] [address] [id number] [place] [address]- 2311 Jul, [facility] [place] [facility] [address] [id number], [place] [address] June, [facility] [place] [facility] [address] [id number] [place] [address] June, [facility] [place] [facility] [address] [id number] [place] [address] June, [facility] [address] [id number] [place] [address] June, [facility] [place] [facility] [address] [id number] [place] [address] June, [facility] [place] [facility] [address] [id number] [place] [address] May, [facility] [place] [facility] [address] [id number] [place] [address] May, [facility] [place] [facility] [address] [id number] [place] [address] Apr, [facility] [place] [facility] [address] [id number] [place] [address] Apr, [facility] [place] [facility] [address] [id number] [place] [address] Mar, [facility] [place] [facility] [address] [id number] [place] [address] Feb, [facility] [place] [facility] [address] [id number] [place] [address] Nov, [facility] [place] [facility] [address] [id number] [place] [address] Nov, [facility] [place] [facility] [address] [id number] [place] [address] Nov, [facility] [place] [facility] [address] [id number] [place] [address] 17 Apr, 2010 [facility] [place] [facility] [address] [id number] [place] [address] Jan, [facility] [place] [facility] [address] [id number] [place] [address] 24 Dec, 2009 [facility] [place] [facility] [address] [id number] [place] [address] Dec, [facility] [place] [facility] [address] [id number] [place] [address] 29 Nov, 2009 [facility] [address] [id number] [place] [address] June, [facility] [address] [id number] [place] [address] 29 Jan, 2009 [facility] [address] [id number] [place] [address] 28 Jan, 2009 [facility] [address] [id number] [place] [address]- [address] 23 Jan, 2009 [facility] [address] [id number] [place] [address] 22 Jan, 2009 [facility] [address] [id number] [place] [address] 16 Jan, 2009 [facility] [address] [id number] [place] [address] 15 Jan, 2009 [facility] [address] [id number] [place] [address] 15 Jan, 2009 [facility] [address] [id number] [place] [address] Jan, [facility] [address] [id number] [place] [address] 11 Jan, 2009 [facility] [address] [id number], [place] [address] 10 Jan, 2009 [facility] [address] [id number] [place] [address] 04 Jan, 2009 [facility] [address] [id number] [place] [address] 02 Jan, 2009 [facility] [address] [id number] [place] [address] 25 Dec, 2008 [facility] [address] [id number], [place] [address] Dec, [facility] [address] [facility] [id number], [place] [address] Dec, [facility] [address] [facility] [id number] [id number] Dec, [facility] [address] [facility] [id number], [place] [address] Nov, [facility] [address] [facility] [id number], [place] [address] Oct, IMMUNIZATIONS No Known Immunizations SOCIAL HISTORY Never Assessed REASON FOR VISIT pain management [facility] PLAN OF CARE Activity Details Follow Up 4 Weeks Reason:DM VITAL SIGNS Height 73 in 2017-01-10 Weight 294.7 lbs 2017-01-10 Temperature 96.9 degrees Fahrenheit 2017-01-10 Heart Rate 92 bpm 2017-01-10 Respiratory Rate 20 2017-01-10 BMI 38.88 kg/m2 2017-01-10 Blood pressure systolic 130 mmHg 2017-01-10 Blood pressure diastolic 78 mmHg 2017-01-10 MEDICATIONS Medication Instructions Dosage Frequency Start Date End Date Duration Status Insulin Syringe 31G X 5/16 as directed Jan, Active Trulicity 0.75 MG/0.5ML Inject 0.5 ml Jan, 160 days Active Glucometer as directed Dec, Active NovoLog 100 UNIT/ML Subcutaneous 3 times a day Inject 30 units with meals 8h Dec, Active Uloric 80 MG Orally Once a day 1 tablet 24h Aug, 90 days Active Hydrocodone-Acetaminophen 7.5-325 MG Orally 3 times a day 1 tablet as needed 8h 25 Nov, 2016 28 days Active Toprol XL 100 MG Orally Once a day 1 tablet 24h 90 days Active Seroquel 50 mg Orally Once a day 3 Tablets 24h 15 Jan, 2014 30 days Active Aspir-81 81 MG Orally Once a day 1 tablet 24h Active Omeprazole 40 MG Orally Once a day 1 capsule 24h 90 days Active Levemir FlexTouch 100 UNIT/ML Subcutaneous 2 times a day Inject 35 units 12h Jan, 53 days Active Atorvastatin Calcium 10 MG Orally Once a day 1 tablet 24h 90 days Active Plavix 75 MG Orally Once a day 1 tablet 24h 90 days Active RESULTS Name Result Date Reference Range A1C (IN HOUSE) 2017-01-10 A1C IN HOUSE 8.7 4.3 - 5.6 % Previous A1c 8.4 Lot [id number] Exp date 08/2018 Xray : Knee, Right 1-2 views (IN HOUSE) 2017-01-10 PROCEDURES Procedure Date Ordered Result Body Site GLYCATED HEMOGLOBIN TEST Jan 10, 2017 X-RAY EXAM OF KNEE, 1 OR 2 Jan 10, 2017 INSTRUCTIONS MEDICATIONS ADMINISTERED No Known Medications [...] left knee pseudogout status post joint fluid analysis-[facility] 09/20/16
--- OUTSIDE RECORDS SUMMARY | 2017-12-06 13:55 | XMS REPORT ---
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 Active 986364616 Problem Type 2 diabetes mellitus with hyperglycemia E11.65 Active [id number] Problem Chronic kidney disease, stage 3 N18.3 Active 519967443 Problem Gout, unspecified M10.9 Active 15561433 Problem Insomnia, unspecified G47.00 Active 647492135 Problem Coronary atherosclerosis of unspecified type of vessel, [place] or graft I25.10 Active 114235693 Problem Gastroesophageal reflux disease, esophagitis presence not specified K21.9 Active 187635780 Problem Primary osteoarthritis of left knee M17.12 Active [id number] Problem Gout of left knee due to renal impairment, unspecified chronicity M10.362 Active 896828734 Problem Mixed hyperlipidemia E78.2 Active 987652295 Problem 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 828168161 Problem Pseudogout M11.20 Active 246081463 Problem Mood disorder F39 Active 07314914 ALLERGIES No Information ENCOUNTERS Encounter Location Date Diagnosis [place] [id number] [place] [address] 09295- 8028 June, Type 2 diabetes mellitus with hyperglycemia E11.65 [place] [id number] [place] [address] 68623- 6039 May, Mood disorder F39 ; Gastroesophageal reflux disease, esophagitis presence not specified K21.9 ; Gout, unspecified M10.9 ; Coronary atherosclerosis of unspecified type of vessel, [place] or graft I25.10 and Type 2 diabetes mellitus with hyperglycemia E11.65 [place] [id number], [place] [address] 0967 May, Type 2 diabetes mellitus with hyperglycemia E11.65 [place] [id number] [place] [address] 78987- 7174 Apr, Diabetes E11.9 and Mood disorder F39 [facility] [id number] [place] [address] 71332- 3757 15 Mar, 2017 Primary osteoarthritis of left knee M17.12 and Tear of lateral meniscus of left knee, unspecified tear type, unspecified whether old or current tear, initial encounter S83.282A [place] [id number] [place] [address] 20738- 6729 Feb, Mood disorder F39 [place] [id number] [place] [address] 92523- 6601 Feb, Pseudogout M11.20 [place] [id number] [place] [address] 06897- 8738 Jan, Other salvage determiner (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 [facility] [id number] [place] [address] 01917 -1980 Jan, [place] [id number] [place] [address] 68363- 9717 Jan, Pseudogout M11.20 ; Type 2 diabetes mellitus with hyperglycemia E11.65 and Other care home (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 [place] [id number] [place] [address] 37785- 2461 Jan, Gout of left knee due to renal impairment, unspecified chronicity M10.362 ; Type 2 diabetes mellitus with diabetic nephropathy E11.21 ; Synovial cyst of popliteal space [Mejia], left knee M71.22 and Low back pain M54.5 [place] [id number] [place] [address] 95242- 0420 Dec, Pseudogout M11.20 [place] [id number] [place] [address] 35660- 0211 Dec, [place] [id number] [place] [address] 01036- 9924 Dec, Type 2 diabetes mellitus with diabetic nephropathy E11.21 and Right anterior knee pain M25.561 [place] [id number] [place] [address] 31356- 0585 Nov, Pseudogout M11.20 [place] [id number] [place] [address] 10781- 9971 Nov, Pseudogout M11.20 ; Chronic kidney disease, stage 3 N18.3 ; Mixed hyperlipidemia E78.2 ; Gout, unspecified M10.9 ; Coronary atherosclerosis of unspecified type of vessel, kasigl[place] or graft I25.10 ; Mood disorder F39 and Gastroesophageal reflux disease, esophagitis presence not specified K21.9 [place] [id number] [place] [address] 59384- 9586 Nov, [place] [id number] [place] [address] 74299- 6917 Oct, Pseudogout M11.20 [place] [id number] [place] [address] 68550- 6753 Sep, Pseudogout M11.20 [place] [id number] [place] [address] 34765- 8678 Sep, Pseudogout M11.20 [place] [id number] [place] [address] 53807- 0023 Sep, [facility] [id number] [place] [address] [id number] Aug, [place] [address] 53627- 2987 Aug, Diabetes E11.9 ; Chronic kidney disease, stage 3 N18.3 ; Hyperuricemia E79.0 ; Mixed hyperlipidemia E78.2 ; Gastroesophageal reflux disease, esophagitis presence not specified K21.9 ; Gout, unspecified M10.9 ; Coronary atherosclerosis of unspecified type of vessel, kasigl[place] or graft I25.10 and Mood disorder F39 [facility] [id number] [place] [address] 74181- 0697 June, [facility] [id number] [place] [address] 57488- 0984 June, [facility] [id number] [place] [address] 01932- 0644 June, [facility] [id number] [place] [address] 67833- 6099 May, Chronic renal failure, stage 3 (moderate) N18.3 [facility] [id number] [place] [address] 31131- 6442 May, Diabetes E11.9 [facility] [id number] [place] [address] 40560- 8025 May, [facility] [id number] [place] [address] 28955- 6612 Apr, [facility] [id number] [place] [address] 09641- 4074 Apr, [facility] [id number] [place] [address] 46447- 5319 Apr, Cellulitis of right lower extremity L03.115 and Diabetes E11.9 [facility] [address] [place] [address] 85014- 6359 Apr, Type 2 diabetes mellitus with hyperglycemia E11.65 [facility] [address] [place] [address] 65703- 6937 Mar, Cellulitis of right lower extremity L03.115 and Low back pain M54.5 [facility] [id number] [place] [address] 46958- 5209 Mar, [facility] [id number] [place] [address] 93076- 8347 Mar, Cellulitis of right lower extremity L03.115 [facility] [address] [address]- 7145 Mar, Cellulitis of right lower extremity L03.115 [facility] [address] [address]- 8140 Feb, Cellulitis of right lower extremity L03.115 [place] [address] [place] [address] 15822- 6702 Feb, Cellulitis of right lower extremity L03.115 [place] [address] [address]- 4298 Feb, [place] [address] [place] [address] 65572- 3533 Feb, Leukocytosis, unspecified type D72.829 ; Chronic renal failure, stage 3 (moderate) N18.3 and Type 2 diabetes mellitus with hyperglycemia E11.65 [place] [address], [place] [address]- 7418 Feb, Leukocytosis, unspecified type D72.829 [place] [address] [address]- 8576 Feb, [place] [address] [place] [address] 50902- 8499 Feb, Cellulitis of right lower extremity L03.115 ; Thrush B37.0 ; Gout of left knee due to renal impairment, unspecified chronicity M10.362 and Chronic renal failure, stage 3 (moderate) N18.3 [place] [address] [address]- 9239 Feb, [place] [address] [place] [address] 93985- 6584 Feb, Right foot infection L08.9 ; Type 2 diabetes mellitus with hyperglycemia E11.65 ; Arthralgia of left knee M25.562 ; Chronic kidney disease , stage 3 N18.3 and Diabetes E11.9 [place] [id number] [place] [address] 41775- 1475 Feb, [place] [address] 65970- 1175 Feb, Diabetes E11.9 ; Arthralgia of left knee M25.562 and Thrush B37.0 [place] [address] 37455- 1474 Jan, [place] [address] 21547- 0170 Jan, Type 2 diabetes mellitus with hyperglycemia E11.65 ; Chronic renal failure, stage 3 (moderate) N18.3 and Leukocytosis, unspecified type D72.829 [place] [id number] [place] [address] 35984- 3571 Jan, Type 2 diabetes mellitus with hyperglycemia E11.65 [place] [id number] [place] [address] 38581- 6166 Dec, Gout of left knee due to renal impairment, unspecified chronicity M10.362 [place] [id number] [place] [address] 74698- 7398 Dec, Gout of left knee due to renal impairment, unspecified chronicity M10.362 and Diabetes E11.9 [place] [id number] [place] [address] 91027- 1946 Dec, [place] [id number] [place] [address] 46758- 8805 Dec, [facility] [id number] [place] [address] 79579 -6479 Dec, [place] [id number] [place] [address] 58746- 3599 Dec, Chronic kidney disease, stage 3 N18.3 ; Type 2 diabetes mellitus with diabetic nephropathy E11.21 ; Type 2 diabetes mellitus with hyperglycemia E11.65 and 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 [facility] [id number] [place] [address] 25849 -0883 Dec, Leukocytosis, unspecified type D72.829 ; Chronic renal failure, stage 3 (moderate) N18.3 and Nausea R11.0 [place] [id number] [place] [address] 83408- 0215 Nov, [place] [address] 26100- 0846 Jul, [place] [address] 20105- 0371 Jul, Diabetes E11.9 ; Low back pain M54.5 and Other chronic pain G89.29 [place] [id number] [place] [address] 80844- 2524 June, [place] [address] 55138- 3292 June, [place] [address] 88724- 3056 Jan, Viral illness B34.[address] 95419- 4501 Jan, Type 2 diabetes mellitus with hyperglycemia E11.65 ; Pain in right foot M79.671 and Localized edema R60.0 [place] [id number] [place] [address] 62827- 2093 Jan, [place] [address] 94015- 8079 Dec, Right foot pain M79.671 ; Insomnia, unspecified type G47.00 and Diabetes E11.9 [place] [id number] [place] [address] 67131- 8916 16 Dec, 2014 Pain in right foot M79.671 [place] [address] 55882- 0827 Nov, [facility] [address] [id number] [place] [address]- 4610 Sep, [facility] [address] [facility] [id number] [place] [address]- 0636 Sep, Diabetes mellitus, type II 250.00 [facility] [address] [facility] [id number] [place] [address]- 4512 May, [facility] [address] [facility] [id number] [place] [address]- 8601 May, [facility] [address] [id number] [place] [address]- 6028 Apr, [facility] [address] [facility] [id number] [place] [address]- 7106 Apr, [facility] [address] [facility] [id number] [place] [address]- 0960 16 Apr, 2014 [facility] [address] [facility] [id number] [place] [address]- 8251 16 Apr, 2014 [facility] [address] [facility] [id number] [place] [address]- 3711 Apr, [facility] [address] [facility] [id number] [place] [address]- 6008 Apr, [facility] [address] [facility] [id number] [place] [address]- 9622 05 Apr, 2014 [facility] [place] [facility] [address] [id number], [place] [address]- 2645 05 Apr, 2014 [facility] [place] [facility] [address] [id number] [place] [address]- 2682 Jan, [facility] [place] [facility] [address] [facility] [id number] [place] [address]- 1048 18 Jan, 2014 [facility] [place] [facility] [address] [facility] [id number] [place] [address]- 8774 15 Jan, 2014 [facility] [place] [facility] [address] [facility] [id number] [place] [address]- 9152 15 Jan, 2014 [facility] [place] [facility] [address] [id number] [place] [address]- 5048 Dec, [facility] [place] [facility] [address] [id number] [place] [address]- 8121 Dec, [facility] [place] [facility] [address] [id number] [place] [address]- 6487 Nov, [facility] [place] [facility] [address] [id number] [place] [address]- 5055 Nov, [facility] [place] [facility] [address] [id number] [place] [address]- 5521 Oct, [facility] [place] [facility] [address] [id number] [place] [address]- 3431 Oct, [facility] [place] [facility] [address] [id number] [place] [address]- 1966 Oct, [facility] [place] [facility] [address] [id number] [place] [address]- 2482 Oct, [facility] [place] [facility] [address] [id number] [place] [address]- 6894 Sep, [facility] [place] [facility] [address] [id number] [place] [address]- 2432 Sep, [facility] [place] [facility] [address] [id number] [place] [address]- 5109 Sep, [facility] [place] [facility] [address] [id number] [place] [address]- 4525 Sep, [facility] [place] [facility] [address] [id number] [place] [address]- 3294 Sep, [facility] [place] [facility] [address] [id number] [place] [address]- 2631 Sep, [facility] [place] [facility] [address] [id number] [place] [address]- 0246 Sep, [facility] [place] [facility] [address] [id number] [place] [address]- 7271 Sep, [facility] [place] [facility] [address] [id number] [place] [address]- 7618 Sep, [facility] [place] [facility] [address] [id number] [place] 1563 Sep, [facility] [place] [facility] [address] [id number] [place] [address]- 5832 Sep, [facility] [place] [facility] [address] [id number] [place] [address]- 2364 Sep, [facility] [place] [facility] [address] [id number] [place] [address]- 1839 Aug, [facility] [place] [facility] [address] [id number] [place] [address]- 2878 Aug, [facility] [place] [facility] [address] [id number] [place] [address]- 6895 Aug, [facility] [place] [facility] [address] [id number] [place] [address]- 2738 Aug, [facility] [place] [facility] [address] [id number] [place] [address]- 2035 June, [facility] [place] [facility] [address] [id number] [place] [address]- 4523 May, [facility] [place] [facility] [address] [id number] [place] [address]- 5337 May, [facility] [place] [facility] [address] [id number] [place] [address]- 0129 May, [facility] [place] [facility] [address] [id number] [place] [address]- 0268 May, [facility] [place] [facility] [address] [id number] [place] 1154 May, [facility] [place] [facility] [address] [id number], [place] [address]- 6736 17 May, 2013 [facility] [place] [facility] [address] [id number] [place] [address]- 9937 16 May, 2013 [facility] [place] [facility] [address] [id number] [place] [address]- 9130 16 May, 2013 [facility] [place] [facility] [address] [id number] [place] [address]- 9496 May, [facility] [place] [facility] [address] [id number] [place] [address]- 9851 May, [facility] [place] [facility] [address] [id number] [place] [address]- 6775 May, [facility] [place] [facility] [address] [id number] [place] [address]- 2116 May, [facility] [place] [facility] [address] [facility] [id number] [place] [address]- 2679 Apr, [facility] [place] [facility] [address] [id number] [place] [address]- 3996 Apr, [facility] [place] [facility] [address] [id number] [place] [address]- 5797 Mar, [facility] [place] [facility] [address] [facility] [id number] [place] [address]- 9322 Mar, [facility] [place] [facility] [address] [id number], [place] [address]- 2859 Dec, [facility] [place] [facility] [address] [id number], [place] [address]- 5426 Dec, [facility] [place] [facility] [address] [id number] [place] [address]- 1724 Dec, [facility] [place] [facility] [address] [id number] [place] [address]- 2245 Dec, [facility] [place] [facility] [address] [facility] [id number] [place] [address]- 3328 Nov, [facility] [place] [facility] [address] [id number] [place] [address]- 2496 25 Nov, 2012 [facility] [place] [facility] [address] [id number] [place] [address]- 9337 30 Oct, 2012 [facility] [place] [facility] [address] [id number] [place] [address]- 9065 Oct, [facility] [place] [facility] [address] [id number] [place] [address]- 1400 Aug, [facility] [place] [facility] [address] [id number] [place] [address]- 1398 Aug, [facility] [place] [facility] [address] [id number] [place] [address]- 8631 Aug, [facility] [place] [facility] [address] [id number] [place] [address]- 0215 Jul, [facility] [place] [facility] [address] [id number] [place] [address]- 3677 June, [facility] [place] [facility] [address] [id number] [place] [address]- 8909 June, [facility] [place] [facility] [address] [id number] [place] [address]- 9947 Apr, [facility] [place] [facility] [address] [id number] [place] [address]- 2531 Mar, [facility] [place] [facility] [address] [id number] [place] [address]- 0199 Mar, [facility] [place] [facility] [address] [id number] [place] [address]- 6888 Mar, [facility] [place] [facility] [address] [id number] [place] [address]- 5270 Mar, [facility] [place] [facility] [address] [id number] [place] [address]- 0815 Mar, [facility] [place] [facility] [address] [id number] [place] [address]- 3998 Feb, [facility] [address] [id number] [place] [address]- 9800 Feb, [facility] [place] [facility] [address] [id number] [place] [address]- 1951 Feb, [facility] [place] [facility] [address] [id number] [place] [address]- 2058 Feb, [facility] [place] [facility] [address] [id number] [place] [address]- 4703 Jan, [facility] [place] [facility] [address] [id number] [place] 2580 Jan, [facility] [place] [facility] [address] [id number] [place] [address]- 9598 Dec, [facility] [place] [facility] [address] [id number] [place] [address]- 7294 Dec, [facility] [place] [facility] [address] [id number] [place] [address]- 7275 Dec, [facility] [place] [facility] [address] [id number] [place] [address]- 7016 Dec, [facility] [place] [facility] [address] [id number] [place] [address]- 9456 Oct, [facility] [place] [facility] [address] [id number] [place] [address]- 6846 Aug, [facility] [place] [facility] [address] [id number] [place] [address]- 5812 Jul, [facility] [place] [facility] [address] [id number] [place] [address]- 4481 June, [facility] [place] [facility] [address] [id number] [place] [address] June, [facility] [place] [facility] [address] [id number] [place] [address] June, [facility] [place] [facility] [address] [id number] [place] [address] June, [facility] [address] [id number] [place] [address] June, [facility] [place] [facility] [address] [id number] [place] [address] May, [facility] [address] [id number] [place] [address] May, [facility] [address] [id number] [place] [address] Apr, [facility] [address] [id number] [place] [address] Apr, [facility] [address] [id number] [place] [address] Mar, [facility] [address] [id number] [place] [address] Feb, [facility] [address] [id number] [place] [address] Nov, [facility] [address] [id number] [place] [address] Nov, [facility] [address] [facility] [id number] [place] [address] Nov, [facility] [address] [id number] [place] [address] 17 Apr, 2010 [facility] [address] [id number] [place] [address] Jan, [facility] [place] [facility] [address] [id number] [place] [address] Dec, [facility] [place] [facility] [address] [id number] [place] [address] Dec, [facility] [place] [facility] [address] [id number] [place] [address] 29 Nov, 2009 [facility] [address] [id number] [place] [address] June, [facility] [address] [id number] [place] [address]- [address] 29 Jan, 2009 [facility] [address] [id number] [place] [address] 28 Jan, 2009 [facility] [address] [id number] [place] [address] 23 Jan, 2009 [facility] [address] [id number] [place] [address]- [address] 22 Jan, 2009 [facility] [address] [id number] [place] [address]- [address] 16 Jan, 2009 [facility] [address] [facility] [id number] [place] [address] 15 Jan, 2009 [facility] [address] [id number], [place] [address] 15 Jan, 2009 [facility] [address] [id number] [place] [address] 11 Jan, 2009 [facility] [address] [id number], [place] [address] 11 Jan, 2009 [facility] [address] [id number], [place] [address] 10 Jan, 2009 [facility] [place] [facility] [address] [id number], [place] [address] 04 Jan, 2009 [facility] [place] [facility] [address] [id number] [place] [address]- [address] 02 Jan, 2009 [facility] [place] [facility] [address] [id number], [place] [address] 25 Dec, 2008 [facility] [place] [facility] [address] [id number], [place] [address] 19 Dec, 2008 [facility] [place] [facility] [address] [facility] [id number] [place] [address] Dec, [facility] [facility] [address] [facility] [id number] [place] [address] Dec, [facility] [address] [facility] [id number] [place] [address] Nov, [facility] [address] [facility] [id number] [place] [address] Oct, IMMUNIZATIONS No Known Immunizations SOCIAL HISTORY Never Assessed REASON FOR VISIT Controlled Med Refill PLAN OF CARE VITAL SIGNS MEDICATIONS Medication Instructions Dosage Frequency Start Date End Date Duration Status Hydrocodone-Acetaminophen 7.5-325 MG Orally 3 times a day 1 tablet as needed 8h Jan, 28 days Active RESULTS No Results PROCEDURES [...]
--- OUTSIDE RECORDS SUMMARY | 2017-12-06 13:56 | XMS REPORT ---
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 Active 156916676 Problem Type 2 diabetes mellitus with hyperglycemia E11.65 Active 709492149510390 Problem Chronic kidney disease, stage 3 N18.3 Active 236043851 Problem Gout, unspecified M10.9 Active 07898241 Problem Insomnia, unspecified G47.00 Active 046313173 Problem Coronary atherosclerosis of unspecified type of vessel, catawba or graft I25.10 Active 348651226 Problem Gastroesophageal reflux disease, esophagitis presence not specified K21.9 Active 435178274 Problem Primary osteoarthritis of left knee M17.12 Active [id number] Problem Gout of left knee due to renal impairment, unspecified chronicity M10.362 Active 153295695 Problem Mixed hyperlipidemia E78.2 Active 328810070 Problem 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 405269054 Problem Pseudogout M11.20 Active 868062221 Problem Mood disorder F39 Active 54896519 ALLERGIES No Information ENCOUNTERS Encounter Location Date Diagnosis [place] [id number] [place] [address] 60364- 5504 June, Type 2 diabetes mellitus with hyperglycemia E11.65 [place] [id number] [place] [address] 85534- 0081 May, Mood disorder F39 ; Gastroesophageal reflux disease, esophagitis presence not specified K21.9 ; Gout, unspecified M10.9 ; Coronary atherosclerosis of unspecified type of vessel, catawba or graft I25.10 and Type 2 diabetes mellitus with hyperglycemia E11.65 [place] [id number] [address] 6518 May, Type 2 diabetes mellitus with hyperglycemia E11.65 [place] [id number] [place] [address] 80795- 1635 Apr, Diabetes E11.9 and Mood disorder F39 [facility] [id number] [place] [address] 08646- 8504 15 Mar, 2017 Primary osteoarthritis of left knee M17.12 and Tear of lateral meniscus of left knee, unspecified tear type, unspecified whether old or current tear, initial encounter S83.282A [place] [id number] [place] [address] 81825- 6718 Feb, Mood disorder F39 [place] [id number] [place] [address] 21177- 3720 Feb, Pseudogout M11.20 [place] [id number] [place] [address] 36975- 4031 Jan, 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 [facility] [id number] [place] [address] 22287 -4987 Jan, [place] [id number] [place] [address] 02755- 9414 Jan, Pseudogout M11.20 ; Type 2 diabetes mellitus with hyperglycemia E11.65 and Other assisted (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 [place] [id number] [place] [address] 96984- 0147 Jan, Gout of left knee due to renal impairment, unspecified chronicity M10.362 ; Type 2 diabetes mellitus with diabetic nephropathy E11.21 ; Synovial cyst of popliteal space [Mejia], left knee M71.22 and Low back pain M54.5 [place] [id number] [place] [address] 92765- 7242 Dec, Pseudogout M11.20 [place] [id number] [place] [address] 08851- 6060 Dec, [place] [id number] [place] [address] 15353- 7797 Dec, Type 2 diabetes mellitus with diabetic nephropathy E11.21 and Right anterior knee pain M25.561 [place] [id number] [place] [address] 83075- 0386 Nov, Pseudogout M11.20 [place] [id number] [place] [address] 39041- 6771 Nov, Pseudogout M11.20 ; Chronic kidney disease, stage 3 N18.3 ; Mixed hyperlipidemia E78.2 ; Gout, unspecified M10.9 ; Coronary atherosclerosis of unspecified type of vessel, catawba or graft I25.10 ; Mood disorder F39 and Gastroesophageal reflux disease, esophagitis presence not specified K21.9 [place] [id number] [place] [address] 94487- 3177 Nov, [place] [id number] [place] [address] 82045- 9116 Oct, Pseudogout M11.20 [place] [id number] [place] [address] 19980- 2858 Sep, Pseudogout M11.20 [place] [id number] [place] [address] 72515- 9390 Sep, Pseudogout M11.20 [place] [id number] [place] [address] 76631- 4341 Sep, [facility] [id number] [place] [address] [id number] Aug, [place] [address] 12826- 3335 Aug, Diabetes E11.9 ; Chronic kidney disease, stage 3 N18.3 ; Hyperuricemia E79.0 ; Mixed hyperlipidemia E78.2 ; Gastroesophageal reflux disease, esophagitis presence not specified K21.9 ; Gout, unspecified M10.9 ; Coronary atherosclerosis of unspecified type of vessel, catawba or graft I25.10 and Mood disorder F39 [facility] [id number] [place] [address] 69369- 9542 June, [facility] [id number] [place] [address] 85805- 6229 June, [facility] [id number] [place] [address] 01808- 6179 June, [facility] [id number] [place] [address] 91841- 0994 May, Chronic renal failure, stage 3 (moderate) N18.3 [facility] [id number] [place] [address] 32440- 1117 May, Diabetes E11.9 [facility] [id number] [place] [address] 69640- 1030 May, [facility] [id number] [place] [address] 81406- 7101 Apr, [facility] [id number] [place] [address] 08792- 0335 Apr, [facility] [id number] [place] [address] 55970- 3269 Apr, Cellulitis of right lower extremity L03.115 and Diabetes E11.9 [facility] [id number] [place] [address] 69794- 3151 Apr, Type 2 diabetes mellitus with hyperglycemia E11.65 [facility] [id number] [place] [address] 03578- 6624 Mar, Cellulitis of right lower extremity L03.115 and Low back pain M54.5 [facility] [id number] [place] [address] 34675- 0427 Mar, [facility] [id number] [place] [address] 08482- 2237 Mar, Cellulitis of right lower extremity L03.115 [facility] [address] [address]- 3115 Mar, Cellulitis of right lower extremity L03.115 [facility] [address] [address]- 3966 Feb, Cellulitis of right lower extremity L03.115 [place] [id number] [place] [address] 74809- 1048 Feb, Cellulitis of right lower extremity L03.115 [place] [address] [address]- 8628 Feb, [place] [id number] [place] [address] 26283- 5328 Feb, Leukocytosis, unspecified type D72.829 ; Chronic renal failure, stage 3 (moderate) N18.3 and Type 2 diabetes mellitus with hyperglycemia E11.65 [place] [address] [address]- 5924 Feb, Leukocytosis, unspecified type D72.829 [place] [address] [address]- 9696 Feb, [place] [id number] [place] [address] 71244- 2715 Feb, Cellulitis of right lower extremity L03.115 ; Thrush B37.0 ; Gout of left knee due to renal impairment, unspecified chronicity M10.362 and Chronic renal failure, stage 3 (moderate) N18.3 [place] [address] [address]- 5718 Feb, [place] [id number] [place] [address] 44278- 8984 Feb, Right foot infection L08.9 ; Type 2 diabetes mellitus with hyperglycemia E11.65 ; Arthralgia of left knee M25.562 ; Chronic kidney disease , stage 3 N18.3 and Diabetes E11.9 [place] [id number] [place] [address] 55115- 3374 Feb, [place] [address] 09740- 6242 Feb, Diabetes E11.9 ; Arthralgia of left knee M25.562 and Thrush B37.0 [place] [address] 25515- 2586 Jan, [place] [address] 42724- 7712 Jan, Type 2 diabetes mellitus with hyperglycemia E11.65 ; Chronic renal failure, stage 3 (moderate) N18.3 and Leukocytosis, unspecified type D72.829 [place] [id number] [place] [address] 90809- 4658 Jan, Type 2 diabetes mellitus with hyperglycemia E11.65 [place] [id number] [place] [address] 83414- 2428 Dec, Gout of left knee due to renal impairment, unspecified chronicity M10.362 [place] [id number] [place] [address] 83783- 7133 Dec, Gout of left knee due to renal impairment, unspecified chronicity M10.362 and Diabetes E11.9 [place] [id number] [place] [address] 76439- 5070 Dec, [place] [id number] [place] [address] 06254- 1349 Dec, [facility] [id number] [place] [address] 36030 -7022 Dec, [place] [id number] [place] [address] 86963- 6426 Dec, Chronic kidney disease, stage 3 N18.3 ; Type 2 diabetes mellitus with diabetic nephropathy E11.21 ; Type 2 diabetes mellitus with hyperglycemia E11.65 and long term care pharmacist 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 [facility] [id number] [place] [address] 91951 -6490 Dec, Leukocytosis, unspecified type D72.829 ; Chronic renal failure, stage 3 (moderate) N18.3 and Nausea R11.0 [place] [id number] [place] [address] 95011- 2162 Nov, [place] [address] 83686- 5233 Jul, [place] [address] 99074- 1270 Jul, Diabetes E11.9 ; Low back pain M54.5 and Other chronic pain G89.29 [place] [id number] [place] [address] 15316- 0914 June, [place] [address] 83126- 9753 June, [place] [address] 43399- 4836 Jan, Viral illness B34.[address] 80847- 8679 Jan, Type 2 diabetes mellitus with hyperglycemia E11.65 ; Pain in right foot M79.671 and Localized edema R60.0 [place] [id number] [place] [address] 63907- 4025 Jan, [place] [address] 99977- 3321 Dec, Right foot pain M79.671 ; Insomnia, unspecified type G47.00 and Diabetes E11.9 [place] [id number] [place] [address] 76922- 8110 16 Dec, 2014 Pain in right foot M79.671 [place] [address] 24079- 8841 Nov, [facility] [address] [id number] [place] [address]- 7996 Sep, [facility] [address] [facility] [id number] [place] [address]- 0580 Sep, Diabetes mellitus, type II 250.00 [facility] [address] [facility] [id number] [place] [address]- 5015 May, [facility] [address] [facility] [id number] [place] [address]- 1913 May, [facility] [address] [id number] [place] [address]- 4149 Apr, [facility] [address] [facility] [id number] [place] [address]- 5176 Apr, [facility] [address] [facility] [id number] [place] [address]- 4035 16 Apr, 2014 [facility] [address] [facility] [id number] [place] [address]- 2139 16 Apr, 2014 [facility] [address] [facility] [id number] [place] [address]- 1386 Apr, [facility] [address] [facility] [id number] [place] [address]- 2343 Apr, [facility] [address] [facility] [id number] [place] [address]- 3796 05 Apr, 2014 [facility] [place] [facility] [address] [id number] [address]- 4145 05 Apr, 2014 [facility] [place] [facility] [address] [id number] [place] [address]- 3788 Jan, [facility] [place] [facility] [address] [facility] [id number] [place] [address]- 8500 18 Jan, 2014 [facility] [place] [facility] [address] [facility] [id number] [place] [address]- 8634 15 Jan, 2014 [facility] [place] [facility] [address] [facility] [id number] [place] [address]- 5244 15 Jan, 2014 [facility] [place] [facility] [address] [id number] [place] [address]- 4028 Dec, [facility] [place] [facility] [address] [id number] [place] [address]- 5316 Dec, [facility] [place] [facility] [address] [id number] [place] [address]- 4917 Nov, [facility] [place] [facility] [address] [id number] [place] [address]- 1762 Nov, [facility] [place] [facility] [address] [id number] [place] [address]- 0290 Oct, [facility] [place] [facility] [address] [id number] [place] [address]- 4874 Oct, [facility] [place] [facility] [address] [id number] [place] [address]- 6290 Oct, [facility] [place] [facility] [address] [id number] [place] [address]- 3446 Oct, [facility] [place] [facility] [address] [id number] [place] [address]- 2798 Sep, [facility] [place] [facility] [address] [id number] [place] [address]- 4536 Sep, [facility] [place] [facility] [address] [id number] [place] [address]- 0551 Sep, [facility] [place] [facility] [address] [id number] [place] [address]- 2982 Sep, [facility] [place] [facility] [address] [id number] [place] [address]- 2328 Sep, [facility] [place] [facility] [address] [id number] [place] [address]- 2712 Sep, [facility] [place] [facility] [address] [id number] [place] [address]- 6915 Sep, [facility] [place] [facility] [address] [id number] [place] [address]- 2981 Sep, [facility] [place] [facility] [address] [id number] [place] [address]- 4255 Sep, [facility] [place] [facility] [address] [id number] [place] 4010 Sep, [facility] [place] [facility] [address] [id number] [place] [address]- 4920 Sep, [facility] [place] [facility] [address] [id number] [place] [address]- 6866 Sep, [facility] [place] [facility] [address] [id number] [place] [address]- 0710 Aug, [facility] [place] [facility] [address] [id number] [place] [address]- 1149 Aug, [facility] [place] [facility] [address] [id number] [place] [address]- 5801 Aug, [facility] [place] [facility] [address] [id number] [place] [address]- 3092 Aug, [facility] [place] [facility] [address] [id number] [place] [address]- 8858 June, [facility] [place] [facility] [address] [id number] [place] [address]- 0911 May, [facility] [place] [facility] [address] [id number] [place] [address]- 8924 May, [facility] [place] [facility] [address] [id number] [place] [address]- 9305 May, [facility] [place] [facility] [address] [id number] [place] [address]- 0850 May, [facility] [place] [facility] [address] [id number] [place] 2977 May, [facility] [place] [facility] [address] [id number] [address]- 4675 17 May, 2013 [facility] [place] [facility] [address] [id number] [place] [address]- 3978 16 May, 2013 [facility] [place] [facility] [address] [id number] [place] [address]- 4644 16 May, 2013 [facility] [place] [facility] [address] [id number] [place] [address]- 4294 May, [facility] [place] [facility] [address] [id number] [place] [address]- 8133 May, [facility] [place] [facility] [address] [id number] [place] [address]- 7413 May, [facility] [place] [facility] [address] [id number] [place] [address]- 7283 May, [facility] [place] [facility] [address] [facility] [id number] [place] [address]- 8553 Apr, [facility] [place] [facility] [address] [id number] [place] [address]- 6830 Apr, [facility] [place] [facility] [address] [id number] [place] [address]- 6688 Mar, [facility] [place] [facility] [address] [facility] [id number] [place] [address]- 3315 Mar, [facility] [place] [facility] [address] [id number], [place] [address]- 3257 Dec, [facility] [place] [facility] [address] [id number], [place] [address]- 9163 Dec, [facility] [place] [facility] [address] [id number] [place] [address]- 8675 Dec, [facility] [place] [facility] [address] [id number] [place] [address]- 1645 Dec, [facility] [place] [facility] [address] [facility] [id number] [place] [address]- 6273 Nov, [facility] [place] [facility] [address] [id number] [place] [address]- 5874 25 Nov, 2012 [facility] [place] [facility] [address] [id number] [place] [address]- 0006 30 Oct, 2012 [facility] [place] [facility] [address] [id number] [place] [address]- 3849 Oct, [facility] [place] [facility] [address] [id number] [place] [address]- 8233 Aug, [facility] [place] [facility] [address] [id number] [place] [address]- 9606 Aug, [facility] [place] [facility] [address] [id number] [place] [address]- 4930 Aug, [facility] [place] [facility] [address] [id number] [place] [address]- 0819 Jul, [facility] [place] [facility] [address] [id number] [place] [address]- 7828 June, [facility] [place] [facility] [address] [id number] [place] [address]- 1347 June, [facility] [place] [facility] [address] [id number] [place] [address]- 1915 Apr, [facility] [place] [facility] [address] [id number] [place] [address]- 0763 Mar, [facility] [place] [facility] [address] [id number] [place] [address]- 5943 Mar, [facility] [place] [facility] [address] [id number] [place] [address]- 8420 Mar, [facility] [place] [facility] [address] [id number] [place] [address]- 7492 Mar, [facility] [place] [facility] [address] [id number] [place] [address]- 2079 Mar, [facility] [place] [facility] [address] [id number] [place] [address]- 4689 Feb, [facility] [address] [id number] [place] [address]- 7280 Feb, [facility] [place] [facility] [address] [id number] [place] [address]- 9120 Feb, [facility] [place] [facility] [address] [id number] [place] [address]- 4329 Feb, [facility] [place] [facility] [address] [id number] [place] [address]- 6629 Jan, [facility] [place] [facility] [address] [id number] [place] 7512 Jan, [facility] [place] [facility] [address] [id number] [place] [address]- 8126 Dec, [facility] [place] [facility] [address] [id number] [place] [address]- 2557 Dec, [facility] [place] [facility] [address] [id number] [place] [address]- 6412 Dec, [facility] [place] [facility] [address] [id number] [place] [address]- 5870 Dec, [facility] [place] [facility] [address] [id number] [place] [address]- 5150 Oct, [facility] [place] [facility] [address] [id number] [place] [address]- 4719 Aug, [facility] [place] [facility] [address] [id number] [place] [address]- 4253 Jul, [facility] [place] [facility] [address] [id number] [place] [address]- 6899 June, [facility] [place] [facility] [address] [id number] [place] [address]- 4687 June, [facility] [place] [facility] [address] [id number] [place] 9734 June, [facility] [place] [facility] [address] [id number] [place] [address] 2546 June, [facility] [address] [id number] [place] [address]- 7646 June, [facility] [place] [facility] [address] [id number] [place] [address]- 1216 May, [facility] [address] [id number] [place] [address]- 1486 May, [facility] [address] [id number] [place] [address] Apr, [facility] [address] [id number] [place] [address] Apr, [facility] [address] [id number] [place] [address] Mar, [facility] [address] [id number] [place] [address] Feb, [facility] [address] [id number] [place] [address] Nov, [facility] [address] [id number] [place] [address] Nov, [facility] [address] [facility] [id number] [place] [address] Nov, [facility] [address] [id number] [place] [address] 17 Apr, 2010 [facility] [address] [id number] [place] [address] Jan, [facility] [place] [facility] [address] [id number] [place] [address] Dec, [facility] [place] [facility] [address] [id number] [place] [address] Dec, [facility] [place] [facility] [address] [id number] [place] [address] 29 Nov, 2009 [facility] [address] [id number] [place] [address] June, [facility] [address] [id number] [place] [address] 29 Jan, 2009 [facility] [address] [id number] [place] [address] 28 Jan, 2009 [facility] [address] [id number] [place] [address] 23 Jan, 2009 [facility] [address] [id number] [place] [address] 22 Jan, 2009 [facility] [address] [id number] [place] [address] 16 Jan, 2009 [facility] [address] [facility] [id number] [place] [address] 15 Jan, 2009 [facility] [address] [id number] [address] 15 Jan, 2009 [facility] [address] [id number] [place] [address] 11 Jan, 2009 [facility] [address] [id number], [place] [address] 11 Jan, 2009 [facility] [address] [id number] [address] 10 Jan, 2009 [facility] [place] [facility] [address] [id number] [address] 04 Jan, 2009 [facility] [place] [facility] [address] [id number] [place] [address] 02 Jan, 2009 [facility] [place] [facility] [address] [id number][place] [address] 25 Dec, 2008 [facility] [place] [facility] [address] [id number] [address] 19 Dec, 2008 [facility] [place] [facility] [address] [facility] [id number] [place] [address] Dec, [facility] [address] [facility] [id number] [place] [address] Dec, [facility] [address] [facility] [id number] [place] [address] Nov, [facility] [address] [facility] [id number] [place] [address] Oct, IMMUNIZATIONS No Known Immunizations SOCIAL HISTORY Never Assessed REASON FOR VISIT DC Narcotic Med due to violation PLAN OF CARE VITAL SIGNS MEDICATIONS Unknown [...] left knee pseudogout status post joint fluid analysis-[facility] 09/20/16
--- OUTSIDE RECORDS SUMMARY | 2017-12-06 13:57 | XMS REPORT ---
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 436653196 Problem Type 2 diabetes mellitus with hyperglycemia E11.65 Active [id number] Problem Chronic kidney disease, stage 3 N18.3 Active 339549085 Problem Gout, unspecified M10.9 Active 00823368 Problem Insomnia, unspecified G47.00 Active 181149433 Problem Coronary atherosclerosis of unspecified type of vessel, [place] or graft I25.10 Active 749993424 Problem Gastroesophageal reflux disease, esophagitis presence not specified K21.9 Active 972307572 Problem Primary osteoarthritis of left knee M17.12 Active [id number] Problem Gout of left knee due to renal impairment, unspecified chronicity M10.362 Active 260457449 Problem Mixed hyperlipidemia E78.2 Active 511283850 Problem 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 310348423 Problem Pseudogout M11.20 Active 925289410 Problem Mood disorder F39 Active 36058188 ALLERGIES Substance Reaction Event Type Date Status Acetaminophen-Codeine #3 Failed [facility] UDS- [facility]C Drug Allergy Jan, Active ENCOUNTERS Encounter Location Date Diagnosis [facility] [address] [facility] [id number] [address] June, Type 2 diabetes mellitus with hyperglycemia E11.65 [facility] [address] [facility] [id number], [place] [address] May, Mood disorder F39 ; Gastroesophageal reflux disease, esophagitis presence not specified K21.9 ; Gout, unspecified M10.9 ; Coronary atherosclerosis of unspecified type of vessel, [place] or graft I25.10 and Type 2 diabetes mellitus with hyperglycemia E11.65 [facility] [address] [id number] [address] May, Type 2 diabetes mellitus with hyperglycemia E11.65 [facility] [id number] [place] [address] 28358- 6411 Apr, Diabetes E11.9 and Mood disorder F39 [place] [id number] [place] [address] 58624- 4435 15 Mar, 2017 Primary osteoarthritis of left knee M17.12 and Tear of lateral meniscus of left knee, unspecified tear type, unspecified whether old or current tear, initial encounter S83.282A [place] [id number] [place] [address] 34566- 7475 Feb, Mood disorder F39 [place] [id number] [place] [address] 38295- 3611 Feb, Pseudogout M11.20 [place] [id number] [place] [address] 79077- 3248 Jan, Other jail (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 [facility] [id number] [place] [address] 68849 -2004 Jan, [place] [address] [place] [address] 17148- 2067 Jan, Pseudogout M11.20 ; Type 2 diabetes mellitus with hyperglycemia E11.65 and Other long term care administrator (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 [place] [address] [place] [address] 92680- 2818 Jan, Gout of left knee due to renal impairment, unspecified chronicity M10.362 ; Type 2 diabetes mellitus with diabetic nephropathy E11.21 ; Synovial cyst of popliteal space [Mejia], left knee M71.22 and Low back pain M54.5 [facility] [address] [place] [address] 43762- 0462 Dec, Pseudogout M11.20 [place] [address] [place] [address] 75662- 0677 Dec, [place] [id number] [place] [address] 69122- 4967 Dec, Type 2 diabetes mellitus with diabetic nephropathy E11.21 and Right anterior knee pain M25.561 [place] [address] 96022- 1651 Nov, Pseudogout M11.20 [place] [id number] [place] [address] 26425- 9467 Nov, Pseudogout M11.20 ; Chronic kidney disease, stage 3 N18.3 ; Mixed hyperlipidemia E78.2 ; Gout, unspecified M10.9 ; Coronary atherosclerosis of unspecified type of vessel, [place] or graft I25.10 ; Mood disorder F39 and Gastroesophageal reflux disease, esophagitis presence not specified K21.9 [place] [id number] [place] [address] 94319- 4197 Nov, [place] [id number] [place] [address] 57285- 8631 Oct, Pseudogout M11.20 [place] [id number] [place] [address] 24968- 2476 Sep, Pseudogout M11.20 [place] [id number] [place] [address] 06454- 5517 Sep, Pseudogout M11.20 [place] [id number] [place] [address] 83305- 6407 Sep, [facility] [address] [id number] Aug, [place] [id number] [place] [address] 04467- 7005 Aug, Diabetes E11.9 ; Chronic kidney disease, stage 3 N18.3 ; Hyperuricemia E79.0 ; Mixed hyperlipidemia E78.2 ; Gastroesophageal reflux disease, esophagitis presence not specified K21.9 ; Gout, unspecified M10.9 ; Coronary atherosclerosis of unspecified type of vessel, [place] or graft I25.10 and Mood disorder F39 [place] [id number] [place] [address] 17039- 3922 June, [place] [id number] [place] [address] 79397- 7439 June, [place] [address] 41852- 4445 June, [place] [address] 75358- 0328 May, Chronic renal failure, stage 3 (moderate) N18.3 [place] [id number] [place] [address] 77066- 1592 May, Diabetes E11.9 [place] [id number] [place] [address] 72601- 4893 May, [place] [id number] [place] [address] 15262- 7393 Apr, [place] [id number] [place] [address] 49049- 3972 Apr, [place] [id number] [place] [address] 66450- 8780 Apr, Cellulitis of right lower extremity L03.115 and Diabetes E11.9 [place] [id number] [place] [address] 45578- 9403 Apr, Type 2 diabetes mellitus with hyperglycemia E11.[address] 82478- 8292 Mar, Cellulitis of right lower extremity L03.115 and Low back pain M54.5 [place] [id number] [place] [address] 17792- 2191 Mar, [id number] [address] 2851 Mar, Cellulitis of right lower extremity L03.115 [place] [address] [address] 2310 Mar, Cellulitis of right lower extremity L03.115 [place] [address] [address] 3166 Feb, Cellulitis of right lower extremity L03.115 [place] [address] [address] 3769 Feb, Cellulitis of right lower extremity L03.115 [place] [address] [place] [address] 07185- 8161 Feb, [place] [address] [address] 0109 Feb, Leukocytosis, unspecified type D72.829 ; Chronic renal failure, stage 3 (moderate) N18.3 and Type 2 diabetes mellitus with hyperglycemia E11.65 [place] [address] [address] 7612 Feb, Leukocytosis, unspecified type D72.829 [place] [address] [address]- 9649 Feb, [place] [address] [address]- 9529 Feb, Cellulitis of right lower extremity L03.115 ; Thrush B37.0 ; Gout of left knee due to renal impairment, unspecified chronicity M10.362 and Chronic renal failure, stage 3 (moderate) N18.3 [place] [address] [address]- 4680 Feb, [place] [id number] [address]- 5349 Feb, Right foot infection L08.9 ; Type 2 diabetes mellitus with hyperglycemia E11.65 ; Arthralgia of left knee M25.562 ; Chronic kidney disease , stage 3 N18.3 and Diabetes E11.9 [place] [id number] [place] [address] 48697- 2359 Feb, [place] [id number] [place] [address] 85952- 1954 Feb, Diabetes E11.9 ; Arthralgia of left knee M25.562 and Thrush B37.0 [place] [id number] [place] [address] 05263- 7299 Jan, [place] [id number] [place] [address] 05622- 9156 Jan, Type 2 diabetes mellitus with hyperglycemia E11.65 ; Chronic renal failure, stage 3 (moderate) N18.3 and Leukocytosis, unspecified type D72.829 [place] [id number] [place] [address] 23924- 3039 Jan, Type 2 diabetes mellitus with hyperglycemia E11.65 [place] [id number] [place] [address] 59269- 4522 Dec, Gout of left knee due to renal impairment, unspecified chronicity M10.362 [place] [address] [place] [address] 62786- 2277 Dec, Gout of left knee due to renal impairment, unspecified chronicity M10.362 and Diabetes E11.9 [place] [address] [place] [address] 46403- 9778 Dec, [place] [address] [place] [address] 76076- 1661 Dec, [facility] [address] [place] [address] 33263 -2267 Dec, [place] [address] [place] [address] 64797- 5477 Dec, Chronic kidney disease, stage 3 N18.3 ; Type 2 diabetes mellitus with diabetic nephropathy E11.21 ; Type 2 diabetes mellitus with hyperglycemia E11.65 and retirement 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 [facility] [id number] [place] [address] 72389 -8207 Dec, Leukocytosis, unspecified type D72.829 ; Chronic renal failure, stage 3 (moderate) N18.3 and Nausea R11.0 [place] [id number] [place] [address] 34794- 1281 Nov, [facility] [id number] [place] [address] 14141- 8956 Jul, [place] [address] 47137- 4471 Jul, Diabetes E11.9 ; Low back pain M54.5 and Other chronic pain G89.29 [place] [address] 90659- 5740 June, [facility] [id number] [place] [address] 16577- 0316 June, [place] [address] 38710- 9025 Jan, Viral illness B34.9 [place] [address] 10004- 5588 08 Jan, 2015 Type 2 diabetes mellitus with hyperglycemia E11.65 ; Pain in right foot M79.671 and Localized edema R60.0 [place] [id number] [place] [address] 73551- 5280 07 Jan, 2015 [place] [address] 68653- 2819 Dec, Right foot pain M79.671 ; Insomnia, unspecified type G47.00 and Diabetes E11.9 [place] [id number] [place] [address] 67893- 3657 16 Dec, 2014 Pain in right foot M79.671 [facility] [place] [facility] [address] [id number] [place] [address]- 8294 Nov, [facility] [address] [id number] [place] [address]- 2796 Sep, [facility] [place] [facility] [address] [facility] [id number] [place] [address]- 0233 Sep, Diabetes mellitus, type II 250.00 [facility] [address] [id number] [place] [address]- 8978 14 May, 2014 [facility] [place] [facility] [address] [id number] [place] [address]- 6175 May, [facility] [place] [facility] [address] [facility] [id number] [place] [address]- 0806 Apr, [facility] [place] [facility] [address] [facility] [id number] [place] [address]- 4859 Apr, [facility] [place] [facility] [address] [facility] [id number], [place] [address]- 5692 16 Apr, 2014 [facility] [place] [facility] [address] [facility] [id number] [place] [address]- 3778 16 Apr, 2014 [facility] [place] [facility] [address] [facility] [id number], [place] [address]- 5093 Apr, [facility] [place] [facility] [address] [facility] [id number], [place] [address]- 6129 Apr, [facility] [place] [facility] [address] [facility] [id number], [place] [address]- 3806 05 Apr, 2014 [facility] [place] [facility] [address] [facility] [id number] [place] [address]- 8815 05 Apr, 2014 [facility] [place] [facility] [address] [facility] [id number], [place] [address]- 6783 Jan, [facility] [place] [facility] [address] [facility] [id number], [place] [address]- 8636 Jan, [facility] [place] [facility] [address] [facility] [id number], [place] [address]- 3066 15 Jan, 2014 [facility] [place] [facility] [address] [id number] [place] [address]- 9516 15 Jan, 2014 [facility] [place] [facility] [address] [id number] [place] [address]- 3740 Dec, [facility] [place] [facility] [address] [id number] [place] [address]- 9833 Dec, [facility] [place] [facility] [address] [id number] [place] [address]- 8247 Nov, [facility] [place] [facility] [address] [id number] [place] [address]- 5209 Nov, [facility] [place] [facility] [address] [id number] [place] [address]- 3136 Oct, [facility] [place] [facility] [address] [id number] [place] [address]- 0099 Oct, [facility] [place] [facility] [address] [id number] [place] [address]- 7846 Oct, [facility] [place] [facility] [address] [id number] [place] [address]- 1240 05 Oct, 2013 [facility] [place] [facility] [address] [facility] [id number] [place] [address]- 3294 Sep, [facility] [place] [facility] [address] [id number] [place] [address]- 7297 Sep, [facility] [place] [facility] [address] [id number], [place] [address]- 6405 Sep, [facility] [place] [facility] [address] [id number] [place] [address]- 3796 Sep, [facility] [place] [facility] [address] [id number] [place] [address]- 4569 Sep, [facility] [place] [facility] [address] [id number] [place] [address]- 7424 Sep, [facility] [place] [facility] [address] [id number] [place] [address]- 3740 Sep, [facility] [place] [facility] [address] [id number] [place] 4812 Sep, [facility] [place] [facility] [address] [id number] [place] [address]- 5394 Sep, [facility] [place] [facility] [address] [id number] [place] [address]- 9744 Sep, [facility] [place] [facility] [address] [id number] [place] [address]- 5982 Sep, [facility] [place] [facility] [address] [id number] [place] [address]- 8988 Sep, [facility] [place] [facility] [address] [id number] [place] [address]- 2729 Aug, [facility] [place] [facility] [address] [id number] [place] [address]- 2111 Aug, [facility] [place] [facility] [address] [id number] [place] [address]- 1320 Aug, [facility] [place] [facility] [address] [id number] [place] [address]- 0735 Aug, [facility] [place] [facility] [address] [id number] [place] [address]- 9770 June, [facility] [place] [facility] [address] [id number] [place] [address]- 0300 May, [facility] [place] [facility] [address] [id number] [place] [address]- 6916 24 May, 2013 [facility] [place] [facility] [address] [id number] [place] [address]- 2683 May, [facility] [place] [facility] [address] [id number] [place] [address]- 1298 18 May, 2013 [facility] [place] [facility] [address] [id number] [place] [address]- 8175 17 May, 2013 [facility] [place] [facility] [address] [id number] [place] [address]- 1001 17 May, 2013 [facility] [place] [facility] [address] [id number] [place] [address]- 6280 16 May, 2013 [facility] [place] [facility] [address] [id number] [place] [address]- 2424 16 May, 2013 [facility] [place] [facility] [address] [id number] [place] [address]- 2330 14 May, 2013 [facility] [place] [facility] [address] [id number] [place] [address]- 0754 May, [facility] [place] [facility] [address] [id number] [place] [address]- 6516 May, [facility] [place] [facility] [address] [id number] [place] [address]- 2245 May, [facility] [place] [facility] [address] [id number] [place] [address]- 8221 Apr, [facility] [place] [facility] [address] [id number] [place] [address]- 9628 Apr, [facility] [place] [facility] [address] [id number] [place] [address]- 2088 Mar, [facility] [place] [facility] [address] [id number] [place] [address]- 8064 Mar, [facility] [place] [facility] [address] [id number], [place] [address]- 9399 Dec, [facility] [place] [facility] [address] [id number] [place] [address]- 3843 Dec, [facility] [place] [facility] [address] [id number] [place] [address]- 6054 Dec, [facility] [place] [facility] [address] [id number] [place] [address]- 2077 Dec, [facility] [place] [facility] [address] [id number] [place] [address]- 2666 Nov, [facility] [address] [id number] [place] [address]- 6360 Nov, [facility] [address] [id number] [place] [address]- 1436 30 Oct, 2012 [facility] [address] [id number] [place] [address]- 8243 Oct, [facility] [address] [id number] [place] [address]- 8673 Aug, [facility] [address] [id number] [place] [address]- 3074 Aug, [facility] [address] [id number] [place] [address]- 2753 Aug, [facility] [address] [id number] [place] [address]- 8420 Jul, [facility] [address] [id number] [place] [address]- 5103 June, [facility] [address] [id number] [place] [address]- 7058 June, [facility] [address] [facility] [id number] [place] [address]- 1532 Apr, [facility] [address] [id number] [place] [address]- 4636 Mar, [facility] [address] [id number] [place] [address]- 5299 Mar, [facility] [address] [id number] [place] [address]- 4606 Mar, [facility] [address] [id number] [place] [address]- 2546 Mar, [facility] [address] [id number] [place] [address]- 6945 Mar, [facility] [address] [id number] [place] [address]- 2962 Feb, [facility] [place] [facility] [address] [id number] [place] [address]- 5233 Feb, [facility] [place] [facility] [address] [id number] [place] [address]- 3744 Feb, [facility] [place] [facility] [address] [id number] [place] [address]- 0117 Feb, [facility] [place] [facility] [address] [id number] [place] [address]- 6145 Jan, [facility] [place] [facility] [address] [id number] [place] [address]- 1933 Jan, [facility] [place] [facility] [address] [id number] [place] [address]- 5517 Dec, [facility] [place] [facility] [address] [id number] [place] [address]- 0135 Dec, [facility] [place] [facility] [address] [id number] [place] [address]- 0633 Dec, [facility] [place] [facility] [address] [id number] [place] [address]- 6099 Dec, [facility] [place] [facility] [address] [id number], [place] [address]- 8888 Oct, [facility] [place] [facility] [address] [id number], [place] [address]- 9223 Aug, [facility] [place] [facility] [address] [id number] [place] [address]- 4301 Jul, [facility] [place] [facility] [address] [id number], [place] [address]- 4336 June, [facility] [place] [facility] [address] [id number] [place] [address]- 5892 June, [facility] [place] [facility] [address] [id number] [place] [address]- 7732 June, [facility] [address] [id number] [place] [address]- 9433 June, [facility] [place] [facility] [address] [id number] [place] [address]- 9436 June, [facility] [place] [facility] [address] [id number] [place] [address]- 8047 May, [facility] [place] [facility] [address] [id number] [place] [address]- 9150 May, [facility] [place] [facility] [address] [id number] [place] [address]- 9516 Apr, [facility] [place] [facility] [address] [id number] [place] [address]- 8102 Apr, [facility] [place] [facility] [address] [id number] [place] [address]- 6811 Mar, [facility] [place] [facility] [address] [id number] [place] [address] Feb, [facility] [place] [facility] [address] [id number] [place] [address] Nov, [facility] [place] [facility] [address] [id number] [place] [address] Nov, [facility] [place] [facility] [address] [id number] [place] [address] Nov, [facility] [place] [facility] [address] [id number] [place] [address] 17 Apr, 2010 [facility] [place] [facility] [address] [id number] [place] [address] Jan, [facility] [place] [facility] [address] [id number] [place] [address] 24 Dec, 2009 [facility] [place] [facility] [address] [id number] [place] [address] Dec, [facility] [place] [facility] [address] [id number] [place] [address] 29 Nov, 2009 [facility] [address] [id number] [place] [address] June, [facility] [address] [id number] [place] [address] 29 Jan, 2009 [facility] [address] [id number] [place] [address] 28 Jan, 2009 [facility] [address] [id number] [place] [address] 23 Jan, 2009 [facility] [address] [id number] [place] [address] 22 Jan, 2009 [facility] [address] [id number] [place] [address] 16 Jan, 2009 [facility] [address] [id number] [place] [address] 15 Jan, 2009 [facility] [address] [id number] [place] [address] 15 Jan, 2009 [facility] [address] [id number] [place] [address] Jan, [facility] [address] [id number] [place] [address] 11 Jan, 2009 [facility] [address] [id number], [place] [address] 10 Jan, 2009 [facility] [address] [id number] [place] [address] 04 Jan, 2009 [facility] [address] [id number] [place] [address] 02 Jan, 2009 [facility] [address] [id number] [place] [address] 25 Dec, 2008 [facility] [address] [id number], [place] [address] Dec, [facility] [address] [facility] [id number], [place] [address] Dec, [facility] [address] [facility] [id number], [place] [address] Dec, [facility] [address] [facility] [id number], [place] [address] Nov, [facility] [address] [facility] [id number], [place] [address] Oct, IMMUNIZATIONS No Known Immunizations SOCIAL HISTORY Never Assessed REASON FOR VISIT Hospital f/u- swollen left knee for several days- had fluid on knee and gout, fluid was removed in the ER in Tuesday, went home worked the next day, then Tuesday knee got much worse, could not bare weight, went back to ER last night ( tuesday) was told had a Bakers cyst, was told needed to see Ortho, is here today requesting refferal to Chris or Yogesh Garcia RN PLAN OF CARE Activity Details Follow Up 2 Months Reason:DM VITAL SIGNS Height 73 in 2017-02-14 Weight 293 lbs 2017-02-14 Temperature 98.0 degrees Fahrenheit 2017-02-14 Heart Rate 88 bpm 2017-02-14 Respiratory Rate 18 2017-02-14 BMI 38.65 kg/m2 2017-02-14 Blood pressure systolic 142 mmHg 2017-02-14 Blood pressure diastolic 82 mmHg 2017-02-14 MEDICATIONS Medication Instructions Dosage Frequency Start Date End Date Duration Status Uloric 80 MG Orally Once a day 1 tablet 24h Aug, 90 days Active NovoLog 100 UNIT/ML Subcutaneous 3 times a day Inject 30 units with meals 8h Dec, Active Levemir FlexTouch 100 UNIT/ML Subcutaneous 2 times a day Inject 35 units 12h Jan, 53 days Active Atorvastatin Calcium 10 MG Orally Once a day 1 tablet 24h 90 days Active Glucometer as directed Dec, Active Trulicity 0.75 MG/0.5ML Inject 0.5 ml Jan, 160 days Active Aspir-81 81 MG Orally Once a day 1 tablet 24h Active Toprol XL 100 MG Orally Once a day 1 tablet 24h 90 days Active Seroquel 50 mg Orally Once a day 3 Tablets 24h 15 Jan, 2014 30 days Active Omeprazole 40 MG Orally Once a day 1 capsule 24h 90 days Active Insulin Syringe 31G X 07/13 as directed Jan, Active Hydrocodone-Acetaminophen 7.5-325 MG Orally 3 times a day 1 tablet as needed 8h Dec, 28 days Active Plavix 75 MG Orally Once [...]
[2017-12-06] MEDS ORDERED: ASPIRIN 81 MG CHEW (CHILDREN'S ASA) PO ONE (14:00)
[2017-12-06] MEDS ORDERED: ONDANSETRON 4 MG (ZOFRAN) ORAL DISSOLVE TAB SL STA (14:14)
--- NOTE | 2017-12-06 14:14 | ED Chest Pain ---
General Chief Complaint: Chest Pain Stated Complaint: CHEST PAIN Nursing Triage Note: PT AMB TO ROOM #7 W/O DIFFICULTY. A&OX4. C/O CHEST PAIN THAT BEGINS ON LT SIDE OF CHEST, RADIATES TO RT SIDE OF CHEST, THEN RADIATES UP RT SIDE OF NECK. SOB. PT REPORTS INTERMITTENT PAIN DESCRIBED "PRESSURE." REPORTS PAIN BEGAN X3 DAYS AGO WHILE HE WAS AT WORK. PT HAS CARDIAC HISTORY OF STENT PLACEMENT 1.5 YEARS AGO. INITIAL BP 176/110. Nursing Sepsis Screen: No Definite Risk History of Present Illness Date Seen by Provider: Dec 06, 2017 Time Seen by Provider: 13:40 Initial Comments Here with report of chest pain on the left side of the chest that radiates to the right side to the right neck. Short of breath. Intermittent over the last 3 days but worse now. Does have significant blood pressure issues takes aspirin at nighttime but has not had any today. Takes blood pressure medicines at nighttime and has not had it yet today. Denies nausea or vomiting. Blood pressures been uncontrolled since l took him off lisinopril due to chronic renal disease. Timing/Duration: intermittent, 2-3 days Severity/Quality: moderate, pressure Location: central Radiation: neck Activities at Onset: none Prior CP/Workup: cardiac cath, echocardiography, heart attack Modifying Factors: improves with rest ASA po WASTEWATER MANAGER: No NTG SL WASTEWATER MANAGER: No Associated Symptoms: No abdominal pain, No back pain, No diaphoresis, No nausea /vomiting, No shortness of breath, No weakness Allergies and Home Medications Allergies Coded Allergies: No Known Drug Allergies (Unverified , 09/15/08) Home Medications Aspirin 81 Mg Tablet.dr, 81 MG PO HS, (Reported) Atorvastatin Calcium 10 Mg Tablet, 10 MG PO HS, (Reported) Clopidogrel Bisulfate 75 Mg Tablet, 75 MG PO HS, (Reported) Colchicine 0.6 Mg Capsule, 0.6 MG PO DAILY Prescribed by: LESIA DEMARCO on 09/20/16 1250 Colchicine 0.6 Mg Capsule, 0.6 MG PO UD Prescribed by: ANGELIA CHAMORRO on 02/13/172119 Dulaglutide 0.75 Mg/0.5 Ml Pen.injctr, 0.75 MG SQ Fr, (Reported) Febuxostat 80 Mg Tablet, 80 MG PO HS, (Reported) Hydrocodone/Acetaminophen 1 Each Tablet, 1 EACH PO Q6H PRN for PAIN-MODERATE Prescribed by: BENJAMIN ANAND on 02/08/17 1736 Insulin Aspart 100 Unit/1 Ml Susp, 30 UNIT SQ AC, (Reported) Insulin Detemir 100 Unit/1 Ml Vial, 35 UNIT SQ BID, (Reported) Methylprednisolone 4 Mg Tab.ds.pk, 4 MG PO UD Prescribed by: ANGELIA CHAMORRO on 02/13/17 2120 Metoprolol Succinate 50 Mg Tab, 50 MG PO HS, (Reported) Omeprazole 40 Mg Capsule.dr, 40 MG PO HS, (Reported) Quetiapine Fumarate 50 Mg Tablet, 100-150 MG PO HS, (Reported) TAKES 2-3 (50 MG) TABLETS AT BEDTIME Patient Home Medication List Home Medication List Reviewed: Yes Review of Systems Review of Systems Constitutional: see HPI; No chills, No fever EENTM: No Symptoms Reported Respiratory: Denies Cough, Denies Shortness of Air; Other (chest pain worse with deep breathing.) Cardiovascular: Chest Pain; Denies Edema, Denies Lightheadedness Gastrointestinal: No Symptoms Reported Genitourinary: No Symptoms Reported Musculoskeletal: no symptoms reported Skin: no symptoms reported All Other Systems Reviewed Negative Unless Noted: Yes Past Tdfbdtd-Vhcczc-Kdefbv Hx Past Med/Social Hx: Reviewed Nursing Past Med/Soc Hx Patient Social History Alcohol Use: Rarely Uses Recreational Drug Use: No Drug of Choice: THC Type Used: Cigarettes 2nd Hand Smoke Exposure: Yes Recent Foreign Travel: No Contact w/Someone Who Travel: No Recent Infectious Disease Expo: No Recent Hopitalizations: Yes Immunizations Up To Date Tetanus Booster (TDap): Unknown PED Vaccines UTD: Yes Date of Influenza Vaccine: Dec 29, 2010 Seasonal Allergies Seasonal Allergies: No Past Medical History Surgeries: Yes Abdominal, Cardiac, Coronary Stent, Gallbladder, Renal Respiratory: No Cardiac: Yes (CARDIAC CATHS--STENTS X 2 --LAST CATH 08/04/16) Coronary Artery Disease, High Cholesterol, Hypertension Neurological: Yes (PERIPHERAL NEUROPATHY) Neuropathy Reproductive Disorders: No Sexually Transmitted Disease: No HIV/AIDS: No Genitourinary: Yes Kidney Stones, Renal Failure Gastrointestinal: Yes (S/P ASHLEY) Gastroesophageal Reflux, Gall Bladder Disease Musculoskeletal: Yes (CHRONIC KNEE PAIN, ANKLE PAIN, FOOT PAIN ; PSEUDO GOUT ) Gout Endocrine: Yes Diabetes, Insulin dep HEENT: No Cancer: No Psychosocial: Yes Anxiety Integumentary: Yes (MULTIPLE EPISODES OF CELLULITIS) Blood Disorders: No Adverse Reaction/Blood Tranf: No Family Medical History Reviewed Nursing Family Hx Chest pain 03 MOTHER Family history: Arthritis 03 MOTHER Family history: Diabetes mellitus 03 MOTHER 09 BROTHER Family history: Gastrointestinal disease 03 MOTHER 09 BROTHER Family history: Thyroid disorder 03 MOTHER Headache 03 MOTHER Hypercholesterolemia 03 FATHER 03 MOTHER 09 BROTHER Myocardial infarction 03 FATHER 03 MOTHER No Family History of: Abdominal aortic aneurysm Luling's disease Alcoholism Aphasia Cancer Cancer of colon Cataract Congenital heart disease Congestive heart failure Cystic fibrosis Dementia Dysphagia Family history: Allergy Family history: Alzheimer's disease Family history: Asthma Family history: Breast disease Family history: Cardiovascular disease Family history: Coronary thrombosis Family history: Glaucoma Family history: Hypertension Family history: Osteoporosis Hearing loss Heart disease Hereditary disease History of - anemia History of - disorder History of - respiratory disease History of drug abuse Human immunodeficiency virus (HIV) seropositivity Kidney disease Malignant neoplasm of lung Parkinson's disease Prostate cancer Psychotic disorder Seizure disorder Stroke Tuberculosis Visual impairment Physical Exam Vital Signs Vital Signs - First Documented 12/06/17 13:38 Temp 97.8 Pulse 66 Resp 18 B/P (MAP) 176/110 (132) Pulse Ox 96 O2 Delivery Room Air Capillary Refill : Less Than 3 Seconds Height, Weight, BMI Height: 6'1.00" Weight: 290lbs. 0.0oz. 131.712069td; 36.8 BMI Method:Stated General Appearance: No Apparent Distress, WD/WN HEENT: PERRL/EOMI, Pharynx Normal Neck: Non Tender, Supple Respiratory: Lungs Clear, Normal Breath Sounds Cardiovascular: Regular Rate, Rhythm, No Murmur Gastrointestinal: Non Tender, Soft Extremity: Normal Range of Motion, Non Tender Neurologic/Psychiatric: Alert, Oriented x3 Skin: Normal Color, Warm/Dry Progress/Results/Core Measures Results/Orders Lab Results Laboratory Tests Test 12/06/17 14:32 Range/Units White Blood Count 12.5 H 4.3-11.0 10^3/uL Red Blood Count 4.23 L 4.35-5.85 10^6/uL Hemoglobin 11.3 L 13.3-17.7 G/DL Hematocrit 35 L 40-54 % Mean Corpuscular Volume 82 80-99 FL Mean Corpuscular Hemoglobin 27 25-34 PG Mean Corpuscular Hemoglobin Concent 33 32-36 G/DL Red Cell Distribution Width 15.6 H 10.0-14.5 % Platelet Count 274 130-400 10^3/uL Mean Platelet Volume 10.3 7.4-10.4 FL Neutrophils (%) (Auto) 73 42-75 % Lymphocytes (%) (Auto) 18 12-44 % Monocytes (%) (Auto) 5 0-12 % Eosinophils (%) (Auto) 4 0-10 % Basophils (%) (Auto) 0 0-10 % Neutrophils # (Auto) 9.2 H 1.8-7.8 X 10^3 Lymphocytes # (Auto) 2.2 1.0-4.0 X 10^3 Monocytes # (Auto) 0.6 0.0-1.0 X 10^3 Eosinophils # (Auto) 0.5 H 0.0-0.3 10^3/uL Basophils # (Auto) 0.1 0.0-0.1 10^3/uL Prothrombin Time 13.2 12.2-14.7 SEC INR Comment 1.0 0.8-1.4 Activated Partial Thromboplast Time 21 L 24-35 SEC D-Dimer 0.87 H 0.00-0.49 UG/ML Sodium Level 138 135-145 MMOL/L Potassium Level 5.1 H 3.6-5.0 MMOL/L Chloride Level 106 98-107 MMOL/L Carbon Dioxide Level 22 21-32 MMOL/L Anion Gap 10 5-14 MMOL/L Blood Urea Nitrogen 39 H 7-18 MG/DL Creatinine 4.90 H 0.60-1.30 MG/DL Estimat Glomerular Filtration Rate 15 BUN/Creatinine Ratio 8 Glucose Level 123 H 70-105 MG/DL Calcium Level 8.9 8.5-10.1 MG/DL Corrected Calcium 9.1 8.5-10.1 MG/DL Magnesium Level 1.7 L 1.8-2.4 MG/DL Total Bilirubin 0.3 0.1-1.0 MG/DL Aspartate Amino Transf (AST/SGOT) 23 5-34 U/L Alanine Aminotransferase (ALT/SGPT) 19 0-55 U/L Alkaline Phosphatase 71 40-136 U/L Myoglobin 246.2 H 10.0-92.0 NG/ML Troponin I < 0.30 <0.30 NG/ML B-Type Natriuretic Peptide 43.0 <100.0 PG/ML Total Protein 7.4 6.4-8.2 GM/DL Albumin 3.7 3.2-4.5 GM/DL My Orders Orders - ROSALIE BURDICK MD Ekg Tracing (12/06/17 13:39) Cbc With Automated Diff (12/06/17 13:51) Magnesium (12/06/17 13:51) Chest 1 View, Ap/Pa Only (12/06/17 13:51) Cardiac Profile 1 (12/06/17 13:51) Comprehensive Metabolic Panel (12/06/17 13:51) Myoglobin Serum (12/06/17 13:51) Protime With Inr (12/06/17 13:51) Partial Thromboplastin Time (12/06/17 13:51) O2 (12/06/17 13:51) Monitor-Rhythm Ecg Trace Only (12/06/17 13:51) Aspirin Chewable Tablet (Baby Aspirin Ch (12/06/17 14:00) Saline Lock/Iv-Start (12/06/17 13:51) BNP (12/06/17 13:51) Fibrin Degradation Products (12/06/17 13:51) Ondansetron Oral Dissolve Tab (Zofran (12/06/17 14:14) Nitroglycerin 0.4 Mg Btl 25's (Nitrostat (12/06/17 15:15) Metoprolol Tartrate (Ir) Tab (Lopressor (12/06/17 17:15) Nitroglycerin Ointment (Nitrobid Ointme (12/06/17 17:15) Ns Iv 1000 Ml (Sodium Chloride 0.9%) (12/06/17 17:15) Medications Given in ED Vital Signs/I&O 12/06/17 12/06/17 12/06/17 13:38 13:38 19:08 Temp 97.8 97.1 Pulse 66 68 Resp 18 17 B/P (MAP) 176/110 (132) 173/102 (125) Pulse Ox 96 98 O2 Delivery Room Air Room Air Room Air Blood Pressure Mean: 132 Progress Progress Note : Progress Note Seen and evaluated. IV, labs, EKG and chest x-ray ordered. ASA 324 mg by mouth ordered. Monitor patient. 1513: Patient very difficult IV start. Lab was able to get blood for evaluation but unable to get IV. I was able to place a right EJ 20-gauge catheter with success. Patient had still hypertensive 160s over 100s and we will initiate nitroglycerin sublingual now. Monitor patient. 1650: Pain resolved after nitroglycerin. I did discuss with his primary provider regarding the chest pain workup as he has fairly significant disease history with stents placed to the right coronary artery last year in July. Patient does have worsening renal failure and currently his creatinine is 4.9. In discussion with the on-call provider for [facility], she is concerned about the need for nephrology consult for which I agree. Patient has advanced renal disease and this will make management difficult in the setting of his chest pain and hypertension. Blood pressure currently 166/86. I have discussed the findings and concerns with the patient and family. We will need to transfer him. He sees a female supervisor machining at the [facility] in [place] on and they are unsure of her name. They believe it is Dr. Mcknight. They would like to pursue transfer to [facility] in [place], [place] and this has been initiated and we're pending call back. Patient accepted for transfer to [place]. Case discussed with Hospitalist hydrogen plant operations manager who accepted. Family agrees with plan. To go by EMS. Initial ECG Impression Date: Dec 06, 2017 Initial ECG Impression Time: 13:41 Initial ECG Rate: 72 Initial ECG Rhythm: Normal Sinus Initial ECG Comparisson: Unchanged Comment Sinus rhythm with normal axis. No evidence of ST elevation AK. Unchanged from 05 August 2016. Interpreted by me. Diagnostic Imaging Diagonstic Imaging: Xray Plain Films/CT/US/NM/MRI: chest Comments VIA [facility]. [place], [place] NAME: EVA ABRAHAM [facility] REC#: [id number] PT STATUS: REG ER : 1965 PHYSICIAN: ROSALIE BURDICK MD ADMIT DATE: 12/06/17/ER Draft Date of Exam:12/06/17 CHEST 1 VIEW, AP/PA ONLY Indication: Chest pain Frontal chest obtained at 238 hours p.m. and compared to 08/04/2016. Study limited by motion artifact. Heart and mediastinal silhouette are normal in appearance. The lungs appear clear. There is no pneumothorax or pleural fluid Impression: Limited study but no overt acute abnormality. Dictated on workstation # [id number] Dict: 12/06/17 1456 Trans: 12/06/17 1459 [facility] [id number] Interpreted by: WAYNE HOOVER MD Electronically signed by: Departure Impression Primary Impression: Chest pain Qualified Codes: R07.9 - Chest pain, unspecified Additional Impressions: Malignant hypertension Acute on chronic renal failure Qualified Codes: N17.9 - Acute kidney failure, unspecified; N18.5 - Chronic kidney disease, stage 5 Disposition: 02 XFER SHT-TRM HOSP Condition: Stable Transfer Time Spoke to Accepting Phy: 16:50 Transfer Time: 17:30 Transfer Facility: [place], [place], Hospitalist accepting Method of Transfer: EMS Departure-Patient Inst. Referrals: SARI MOJICA MD (PCP) Primary Care Physician CHAPARRO MUJICA (Family) Primary Care Physician ROSALIE BURDICK MD Dec 06, 2017 14:14
[2017-12-06 14:41] LABS: BASOPHILS # (AUTO) 0.1 10^3/uL (0.0-0.1); BASOPHILS % (AUTO) 0 % (0-10); EOSINOPHILS # (AUTO) 0.5 10^3/uL (0.0-0.3); EOSINOPHILS % (AUTO) 4 % (0-10); HEMATOCRIT 35 % (40-54); HEMOGLOBIN 11.3 G/DL (13.3-17.7); LYMPHOCYTES # (AUTO) 2.2 X 10^3 (1.0-4.0); LYMPHOCYTES % (AUTO) 18 % (12-44); MEAN CORPUSCULAR HEMOGLOBIN 27 PG (25-34); MEAN CORPUSCULAR HGB CONC 33 G/DL (32-36); MEAN CORPUSCULAR VOLUME 82 FL (80-99); MEAN PLATELET VOLUME 10.3 FL (7.4-10.4); MONOCYTES # (AUTO) 0.6 X 10^3 (0.0-1.0); MONOCYTES % (AUTO) 5 % (0-12); NEUTROPHILS # (AUTO) 9.2 X 10^3 (1.8-7.8); NEUTROPHILS % (AUTO) 73 % (42-75); PLATELET COUNT 274 10^3/uL (130-400); RED BLOOD COUNT 4.23 10^6/uL (4.35-5.85); RED CELL DISTRIBUTION WIDTH 15.6 % (10.0-14.5); WHITE BLOOD COUNT 12.5 10^3/uL (4.3-11.0)
[2017-12-06 14:59] LABS: PROTHROMBIN TIME PATIENT 13.2 SEC (12.2-14.7)
--- NOTE | 2017-12-06 15:00 | Diagnostic Imaging Report ---
Indication: Chest pain Frontal chest obtained at 238 hours p.m. and compared to 08/04/2016. Study limited by motion artifact. Heart and mediastinal silhouette are normal in appearance. The lungs appear clear. There is no pneumothorax or pleural fluid Impression: Limited study but no overt acute abnormality. Dictated by: Dictated on workstation # [id number]
[2017-12-06 15:02] LABS: ALANINE AMINOTRANSFERASE 19 U/L (0-55); ALBUMIN 3.7 GM/DL (3.2-4.5); ALKALINE PHOSPHATASE 71 U/L (40-136); BILIRUBIN,TOTAL 0.3 MG/DL (0.1-1.0); BUN/CREATININE RATIO 8; CALCIUM 8.9 MG/DL (8.5-10.1); CARBON DIOXIDE 22 MMOL/L (21-32); CHLORIDE 106 MMOL/L (98-107); GFR ESTIMATED 15; GLUCOSE 123 MG/DL (70-105); MAGNESIUM 1.7 MG/DL (1.8-2.4); POTASSIUM 5.1 MMOL/L (3.6-5.0); SODIUM 138 MMOL/L (135-145); TOTAL PROTEIN 7.4 GM/DL (6.4-8.2)
[2017-12-06 15:09] LABS: MYOGLOBIN SERUM 246.2 NG/ML (10.0-92.0)
[2017-12-06] MEDS: NITROGLYCERIN 0.4 MG SL TABS BTL 25'S SL PRN ×3 (15:12→15:24)
[2017-12-06] MEDS ORDERED: NS IV 1000 ML 1,000 ML IV SCH (17:15)
[2017-12-06] MEDS ORDERED: NITROGLYCERIN 2% OINT 1 GM UNIT DOSE PACKET TOP ONE (17:15)
[2017-12-06] MEDS ORDERED: meTOprolol TARTRATE 50 MG (LOPRESSOR) TAB PO ONE (17:15)
[2017-12-06 19:08] VITALS: BP 173/102
== END 2017-12-06 19:08 | disposition short-term general hospital (02) ==
LOC: ER 13:37
DX: R07.89 Other chest pain (principal); E11.22 Type 2 diabetes mellitus with diabetic chronic kidney disease; I12.9 Hypertensive chronic kidney disease with stage 1 through stage 4 chronic kidney disease, or unspecified chronic kidney disease; N18.9 Chronic kidney disease, unspecified; N17.9 Acute kidney failure, unspecified; I25.10 Atherosclerotic heart disease of native coronary artery without angina pectoris; E78.00 Pure hypercholesterolemia, unspecified; F41.9 Anxiety disorder, unspecified; K21.9 Gastro-esophageal reflux disease without esophagitis; M10.9 Gout, unspecified; F12.10 Cannabis abuse, uncomplicated; Z77.22 Contact with and (suspected) exposure to environmental tobacco smoke (acute) (chronic); Z82.49 Family history of ischemic heart disease and other diseases of the circulatory system; Z87.442 Personal history of urinary calculi; Z90.49 Acquired absence of other specified parts of digestive tract; Z95.5 Presence of coronary angioplasty implant and graft; Z79.82 Long term (current) use of aspirin; Z79.4 Long term (current) use of insulin; Z79.52 Long term (current) use of systemic steroids
CPT/HCPCS: 36415; 71045; 80053; 83735; 83874; 83880; 84484; 85025; 85379; 85610; 85730; 93005; 93041

== ENCOUNTER 2018-01-17 16:39 | Emergency (ER) | payer MEDICAID ==
[~2018-01-17] VITALS: Ht 185.4 cm; Wt 129.3 kg
--- OUTSIDE RECORDS SUMMARY | 2018-01-17 16:45 | XMS REPORT ---
Author Author CHAPARRO MUJICA [facility] Address [address] [place] [address] Care Team Providers Care Salvage Cutter Name Role Phone CHAPARRO MUJICA Unavailable PROBLEMS Type Condition ICD9-CM Code YBX02-NP Code Onset Dates Condition Status SNOMED Code Problem Chronic kidney disease, stage 3 N18.3 Active 715907117 Problem Mixed hyperlipidemia E78.2 Active 660124399 Problem Mood disorder F39 Active 50321881 Problem Delayed gastric emptying K30 Active 838093598 Problem Chronic kidney disease, stage V (very severe) N18.5 Active 110390111 Problem Gout of left knee due to renal impairment, unspecified chronicity M10.362 Active 913380701 Problem Pseudogout M11.20 Active 771895866 Problem Essential hypertension I10 Active 15054993 Problem Primary osteoarthritis of left knee M17.12 Active 945280862653462 Problem Hypertriglyceridemia E78.1 Active 537483056 Problem Gout, unspecified M10.9 Active 05031725 Problem Coronary atherosclerosis of unspecified type of vessel, [place] or graft I25.10 Active 627549613 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 Active 362804071 Problem Insomnia, unspecified G47.00 Active 430536112 Problem Type 2 diabetes mellitus with hyperglycemia E11.65 Active 337124270800332 Problem Gastroesophageal reflux disease, esophagitis presence not specified K21.9 Active 507011103 Problem 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 988281098 ALLERGIES No Information ENCOUNTERS Encounter Location Date Diagnosis [facility] [id number], [place] [address] Jan, [facility] [id number] [address] Dec, Type 2 diabetes mellitus with hyperglycemia E11.65 [facility] [id number] [place] [address] 87881- 2554 Dec, [place] [id number] [place] [address] 99622- 1220 Nov, Type 2 diabetes mellitus with hyperglycemia E11.65 [facility] [id number] [place] [address] 76844- 7566 Nov, [place] [address] [address]- 7389 Nov, Chronic kidney disease, stage V (very severe) N18.5 ; Type 2 diabetes mellitus with hyperglycemia E11.65 ; Encounter for immunization Z23 and Delayed gastric emptying K30 [place] [address] [address]- 4464 Nov, [facility] [place] [id number] [place] [address] 93576- 6023 Oct, Essential hypertension I10 ; Coronary atherosclerosis of unspecified type of vessel, [place] or graft I25.10 ; Type 2 diabetes mellitus with hyperglycemia E11.65 and Gout, unspecified M10.9 [facility] [id number] [place] [address] 40302- 9539 07 Oct, 2017 Chronic kidney disease, stage V (very severe) N18.5 [facility] [id number] [place] [address] 04739- 1984 Oct, Mixed hyperlipidemia E78.2 [place] [id number] [place] [address] 23572- 0686 Sep, Type 2 diabetes mellitus with hyperglycemia E11.65 [facility] [id number] [place] [address] 07468- 0071 Sep, Mixed hyperlipidemia E78.2 [facility] [id number] [place] [address] 36347- 6747 16 Sep, 2017 Chronic kidney disease, stage V (very severe) N18.5 [place] [id number] [place] [address] 27077- 1720 Sep, Type 2 diabetes mellitus with hyperglycemia E11.65 and Essential hypertension I10 [place] [id number] [place] [address] 11021- 3571 Sep, Type 2 diabetes mellitus with hyperglycemia E11.65 [facility] [id number] [place] [address] 45230- 7773 16 Aug, 2017 Gout, unspecified M10.9 ; Gastroesophageal reflux disease, esophagitis presence not specified K21.9 ; Mood disorder F39 and Coronary atherosclerosis of unspecified type of vessel, [place] or graft I25.10 [place] [id number] [place] [address] 16102- 5409 Aug, [place] [id number] [place] [address] 65405- 2943 June, Type 2 diabetes mellitus with hyperglycemia E11.65 [facility] [id number] [place] [address] 72260- 0818 May, Mood disorder F39 ; Gastroesophageal reflux disease, esophagitis presence not specified K21.9 ; Gout, unspecified M10.9 ; Coronary atherosclerosis of unspecified type of vessel, [place] or graft I25.10 and Type 2 diabetes mellitus with hyperglycemia E11.65 [place] [id number] [place] [address] 06307- 4036 May, Type 2 diabetes mellitus with hyperglycemia E11.65 [place] [id number] [place] [address] 31802- 4660 Apr, Diabetes E11.9 and Mood disorder F39 [place] [id number] [place] [address] 29558- 3549 Mar, Primary osteoarthritis of left knee M17.12 and Tear of lateral meniscus of left knee, unspecified tear type, unspecified whether old or current tear, initial encounter S83.282A [place] [id number] [place] [address] 13551- 2842 Feb, Mood disorder F39 [place] [id number] [place] [address] 77091- 5336 Feb, Pseudogout M11.20 [facility] [id number] [place] [address] 84919- 5738 Jan, Other senior care (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 [facility] [address] [address] Jan, [facility] [id number] [place] [address] 41684- 6291 Jan, Pseudogout M11.20 ; Type 2 diabetes mellitus with hyperglycemia E11.65 and Other long term care administrator (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 [place] [id number] [place] [address] 88305- 8966 Jan, Gout of left knee due to renal impairment, unspecified chronicity M10.362 ; Type 2 diabetes mellitus with diabetic nephropathy E11.21 ; Synovial cyst of popliteal space [Mejia], left knee M71.22 and Low back pain M54.5 [place] [id number] [place] [address] 54136- 3834 Dec, Pseudogout M11.20 [place] [id number] [place] [address] 21789- 5258 14 Dec, 2016 [place] [id number] [place] [address] 02032- 4970 13 Dec, 2016 Type 2 diabetes mellitus with diabetic nephropathy E11.21 and Right anterior knee pain M25.561 [place] [address] [place] [address] 53218- 7352 Nov, Pseudogout M11.20 [place] [id number] [place] [address] 56191- 8504 Nov, Pseudogout M11.20 ; Chronic kidney disease, stage 3 N18.3 ; Mixed hyperlipidemia E78.2 ; Gout, unspecified M10.9 ; Coronary atherosclerosis of unspecified type of vessel, [place] or graft I25.10 ; Mood disorder F39 and Gastroesophageal reflux disease, esophagitis presence not specified K21.9 [facility] [id number] [place] [address] 93339- 1929 Nov, [facility] [id number] [place] [address] 15772- 2563 Oct, Pseudogout M11.20 [facility] [id number] [place] [address] 50809- 5352 Sep, Pseudogout M11.20 [facility] [id number] [place] [address] 37258- 0870 Sep, Pseudogout M11.20 [facility] [id number] [place] [address] 57457- 3556 Sep, [facility] [id number] [place] [address] [id number] Aug, [facility] [id number] [place] [address] 09490- 5248 Aug, Diabetes E11.9 ; Chronic kidney disease, stage 3 N18.3 ; Hyperuricemia E79.0 ; Mixed hyperlipidemia E78.2 ; Gastroesophageal reflux disease, esophagitis presence not specified K21.9 ; Gout, unspecified M10.9 ; Coronary atherosclerosis of unspecified type of vessel, [place] or graft I25.10 and Mood disorder F39 [facility] [id number] [place] [address] 93713- 2140 June, [facility] [id number] [place] [address] 87010- 5427 June, [facility] [id number] [place] [address] 50087- 8418 June, [facility] [id number] [place] [address] 54713- 4766 May, Chronic renal failure, stage 3 (moderate) N18.3 [facility] [id number] [place] [address] 05403- 1837 May, Diabetes E11.9 [facility] [address], [place] [address]- 8599 May, [facility] [id number] [place] [address] 83974- 0996 Apr, [facility] [id number] [place] [address] 90808- 3616 Apr, [facility] [id number] [place] [address] 11410- 4849 Apr, Cellulitis of right lower extremity L03.115 and Diabetes E11.9 [facility] [id number] [place] [address] 32251- 2615 Apr, Type 2 diabetes mellitus with hyperglycemia E11.65 [facility] [id number] [place] [address] 58859- 4937 Mar, Cellulitis of right lower extremity L03.115 and Low back pain M54.5 [facility] [address], [place] [address]- 5683 Mar, [facility] [id number] [place] [address] 67968- 1838 Mar, Cellulitis of right lower extremity L03.115 [facility] [address], [place] [address]- 9174 Mar, Cellulitis of right lower extremity L03.115 [facility] [address], [place] [address]- 0724 Feb, Cellulitis of right lower extremity L03.115 [facility] [address] [place] [address] 30632- 7946 Feb, Cellulitis of right lower extremity L03.115 [facility] [address], [place] [address]- 5485 Feb, [facility] [address] [place] [address] 90987- 4816 Feb, Leukocytosis, unspecified type D72.829 ; Chronic renal failure, stage 3 (moderate) N18.3 and Type 2 diabetes mellitus with hyperglycemia E11.65 [place] [address], [place] [address]- 3010 Feb, Leukocytosis, unspecified type D72.829 [place] [id number] [place] [address] 40275- 2391 Feb, [place] [id number] [place] [address] 62334- 3097 Feb, Cellulitis of right lower extremity L03.115 ; Thrush B37.0 ; Gout of left knee due to renal impairment, unspecified chronicity M10.362 and Chronic renal failure, stage 3 (moderate) N18.3 [place] [address], [place] [address]- 4587 Feb, [place] [id number] [place] [address] 16538- 3519 Feb, Right foot infection L08.9 ; Type 2 diabetes mellitus with hyperglycemia E11.65 ; Arthralgia of left knee M25.562 ; Chronic kidney disease , stage 3 N18.3 and Diabetes E11.9 [place] [address], [place] [address]- 6058 Feb, [place] [address], [place] [address]- 0380 Feb, Diabetes E11.9 ; Arthralgia of left knee M25.562 and Thrush B37.0 [place] [address], [place] [address]- 3657 Jan, [id number] [place] [address] 45345- 9650 Jan, Type 2 diabetes mellitus with hyperglycemia E11.65 ; Chronic renal failure, stage 3 (moderate) N18.3 and Leukocytosis, unspecified type D72.829 [place] [address] [place] [address] 94868- 0347 Jan, Type 2 diabetes mellitus with hyperglycemia E11.65 [facility] [id number] [place] [address] 46257- 9052 30 Dec, 2015 Gout of left knee due to renal impairment, unspecified chronicity M10.362 [id number] [place] [address] 79644- 7982 Dec, Gout of left knee due to renal impairment, unspecified chronicity M10.362 and Diabetes E11.9 [place] [id number] [place] [address] 25929- 9724 Dec, [place] [id number] [place] [address] 25470- 6010 Dec, [facility] [address] [id number] [place] [address] 48663 -6234 Dec, [place] [id number] [place] [address] 95947- 0904 Dec, Chronic kidney disease, stage 3 N18.3 ; Type 2 diabetes mellitus with diabetic nephropathy E11.21 ; Type 2 diabetes mellitus with hyperglycemia E11.65 and halfway 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 [facility] [place] [id number] [place] [address] 80572 -3304 Dec, Leukocytosis, unspecified type D72.829 ; Chronic renal failure, stage 3 (moderate) N18.3 and Nausea R11.0 [place] [address] [place] [address] 70195- 3601 Nov, [place] [id number] [place] [address] 36865- 1674 Jul, [place] [id number] [place] [address] 30733- 5697 Jul, Diabetes E11.9 ; Low back pain M54.5 and Other chronic pain G89.29 [place] [id number] [place] [address] 32493- 7170 June, [facility] [id number] [place] [address] 97870- 0487 June, [facility] [id number] [place] [address] 71678- 9926 Jan, Viral illness B34.9 [facility] [address] 19281- 1711 Jan, Type 2 diabetes mellitus with hyperglycemia E11.65 ; Pain in right foot M79.671 and Localized edema R60.0 [facility] [address] 85768- 5505 Jan, [facility] [address] 91722- 0536 Dec, Right foot pain M79.671 ; Insomnia, unspecified type G47.00 and Diabetes E11.9 [facility] [id number] [place] [address] 69873- 4842 Dec, Pain in right foot M79.671 [facility] [id number] [place] [address] 09682- 9160 Nov, [facility] [id number] [place] [address] 28157- 9830 Sep, [facility] [id number] [place] [address] 01391- 8458 Sep, Diabetes mellitus, type II 250.00 [facility] [id number] [place] [address] 93055- 9970 May, [facility] [address] 37976- 0336 May, [facility] [id number] [place] [address] 49840- 1410 Apr, [facility] [id number] [place] [address] 70672- 8944 Apr, 2014 [facility] [place] [facility] [address] [id number] [place] [address]- 5827 16 Apr, 2014 [facility] [place] [facility] [address] [id number] [place] [address]- 8603 16 Apr, 2014 [facility] [place] [facility] [address] [id number] [place] [address]- 4180 12 Apr, 2014 [facility] [place] [facility] [address] [id number] [place] [address]- 8448 12 Apr, 2014 [facility] [place] [facility] [address] [id number] [place] [address]- 0359 05 Apr, 2014 [facility] [place] [facility] [address] [id number] [place] [address]- 4101 05 Apr, 2014 [facility] [place] [facility] [address] [id number] [place] [address]- 2130 18 Jan, 2014 [facility] [place] [facility] [address] [id number] [place] [address]- 9480 18 Jan, 2014 [facility] [place] [facility] [address] [id number] [place] [address]- 4056 15 Jan, 2014 [facility] [place] [facility] [address] [id number] [place] [address]- 2769 15 Jan, 2014 [facility] [place] [facility] [address] [id number] [address]- 1612 10 Dec, 2013 [facility] [place] [facility] [address] [id number] [address]- 3003 10 Dec, 2013 [facility] [place] [facility] [address] [id number] [place] [address]- 4979 13 Nov, 2013 [facility] [place] [facility] [address] [id number] [place] [address]- 0052 13 Nov, 2013 [facility] [place] [facility] [address] [id number] [place] [address]- 5608 26 Oct, 2013 [facility] [place] [facility] [address] [id number] [place] [address]- 7233 Oct, 2013 [facility] [place] [facility] [address] [id number] [place] [address]- 5713 Oct, [facility] [place] [facility] [address] [id number] [place] [address]- 2252 Oct, [facility] [place] [facility] [address] [id number] [place] [address]- 6403 Sep, [facility] [place] [facility] [address] [id number] [place] [address]- 3268 Sep, [facility] [place] [facility] [address] [id number] [place] [address]- 5692 Sep, [facility] [place] [facility] [address] [id number] [place] [address]- 6286 Sep, [facility] [place] [facility] [address] [id number] [place] [address]- 1561 Sep, [facility] [place] [facility] [address] [id number] [place] [address]- 8647 Sep, [facility] [place] [facility] [address] [id number] [place] [address]- 8453 Sep, [facility] [place] [facility] [address] [id number] [place] [address]- 5490 Sep, [facility] [place] [facility] [address] [id number] [place] [address]- 2820 Sep, [facility] [place] [facility] [address] [id number] [place] [address]- 9948 Sep, [facility] [place] [facility] [address] [id number] [place] [address]- 3928 Sep, [facility] [place] [facility] [address] [id number] [place] [address]- 0245 Sep, [facility] [place] [facility] [address] [id number] [place] [address]- 4363 Aug, [facility] [place] [facility] [address] [id number] [place] [address]- 3178 Aug, [facility] [place] [facility] [address] [id number] [place] [address]- 3955 Aug, [facility] [place] [facility] [address] [id number] [place] [address]- 7597 Aug, [facility] [place] [facility] [address] [id number] [place] [address]- 9099 June, [facility] [place] [facility] [address] [id number] [place] [address]- 9234 24 May, 2013 [facility] [place] [facility] [address] [id number] [place] [address]- 4870 24 May, 2013 [facility] [place] [facility] [address] [id number] [place] [address]- 3004 May, [facility] [place] [facility] [address] [id number] [place] [address]- 7601 18 May, 2013 [facility] [place] [facility] [address] [id number] [place] [address]- 3909 17 May, 2013 [facility] [place] [facility] [address] [id number] [place] [address]- 3608 17 May, 2013 [facility] [place] [facility] [address] [id number] [place] [address]- 9920 16 May, 2013 [facility] [place] [facility] [address] [id number] [place] [address]- 3968 16 May, 2013 [facility] [place] [facility] [address] [id number] [place] [address]- 8120 14 May, 2013 [facility] [place] [facility] [address] [id number] [place] [address]- 7342 14 May, 2013 [facility] [place] [facility] [address] [id number] [place] [address]- 1296 14 May, 2013 [facility] [place] [facility] [address] [id number] [place] [address]- 0068 May, [facility] [place] [facility] [address] [id number] [place] [address]- 8897 Apr, [facility] [place] [facility] [address] [id number] [place] [address]- 0842 Apr, [facility] [place] [facility] [address] [id number] [place] 8766 Mar, [facility] [place] [facility] [address] [id number] [place] [address]- 4153 Mar, [facility] [place] [facility] [address] [id number] [place] 6038 Dec, [facility] [place] [facility] [address] [id number] [place] [address]- 6599 Dec, [facility] [place] [facility] [address] [id number] [place] [address]- 3279 Dec, [facility] [place] [facility] [address] [id number] [place] [address]- 1219 Dec, [facility] [place] [facility] [address] [id number] [place] [address]- 8526 Nov, [facility] [place] [facility] [address] [id number] [place] [address]- 7050 Nov, [facility] [place] [facility] [address] [id number] [place] [address]- 2428 Oct, [facility] [place] [facility] [address] [id number] [place] [address]- 0763 Oct, [facility] [place] [facility] [address] [id number] [place] [address]- 0142 Aug, [facility] [place] [facility] [address] [id number] [place] 7671 Aug, [facility] [place] [facility] [address] [id number] [place] [address]- 2964 Aug, [facility] [place] [facility] [address] [id number] [place] [address]- 5138 Jul, [facility] [address] [id number] [place] [address]- 9995 June, [facility] [address] [id number] [place] [address] June, [facility] [address] [id number] [place] [address] Apr, [facility] [address] [id number] [place] [address] Mar, [facility] [address] [id number] [place] [address] Mar, [facility] [address] [id number] [place] [address] Mar, [facility] [address] [id number] [place] [address] Mar, [facility] [address] [id number] [place] [address] Mar, [facility] [address] [id number] [place] [address] Feb, [facility] [address] [id number] [place] [address] Feb, [facility] [address] [id number] [place] [address] Feb, [facility] [address] [id number] [place] [address] Feb, [facility] [place] [facility] [address] [id number] [place] [address] Jan, [facility] [place] [facility] [address] [id number] [place] [address] Jan, [facility] [address] [id number] [place] [address] Dec, [facility] [place] [facility] [address] [id number] [place] [address] Dec, [facility] [place] [facility] [address] [id number] [place] [address] Dec, [facility] [place] [facility] [address] [id number] [place] [address] Dec, [facility] [place] [facility] [address] [id number] [place] [address] Oct, [facility] [place] [facility] [address] [id number] [place] [address] Aug, [facility] [place] [facility] [address] [id number] [place] [address] Jul, [facility] [place] [facility] [address] [id number] [place] [address] June, [facility] [place] [facility] [address] [id number] [place] [address] June, [facility] [place] [facility] [address] [id number] [place] [address] June, [facility] [place] [facility] [address] [id number] [place] [address] June, [facility] [place] [facility] [address] [id number] [place] [address] June, [facility] [place] [facility] [address] [id number] [place] [address] May, [facility] [place] [facility] [address] [id number] [place] [address] May, [facility] [place] [facility] [address] [id number] [place] [address] Apr, [facility] [place] [facility] [address] [id number] [place] [address] Apr, [facility] [place] [facility] [address] [id number] [place] [address] 27 Mar, 2011 [facility] [address] [id number] [place] [address] Feb, [facility] [address] [id number] [place] [address] 26 Nov, 2010 [facility] [address] [id number] [place] [address] 13 Nov, 2010 [facility] [address] [id number] [place] [address] 13 Nov, 2010 [facility] [address] [id number] [place] [address], [place] [address] 17 Apr, 2010 [facility] [address] [id number] [place] Jan, [facility] [address] [id number] [place] [address] Dec, [facility] [address] [id number] [place] [address] Dec, [facility] [address] [facility] [id number] [place] [address] 29 Nov, 2009 [facility] [address] [facility] [id number] [place] [address] June, [facility] [address] [id number] [place] [address] 29 Jan, 2009 [facility] [address] [id number] [place] [address] 28 Jan, 2009 [facility] [address] [id number] [place] [address] 23 Jan, 2009 [facility] [address] [id number] [place] [address] 22 Jan, 2009 [facility] [address] [id number] [place] [address] 16 Jan, 2009 [facility] [address] [id number] [address] 15 Jan, 2009 [facility] [address] [facility] [id number] [address] Jan, [facility] [address] [facility] [id number] [address] Jan, [facility] [address] [facility] [id number], [place] [address] Jan, [facility] [address] [facility] [id number], [place] [address] Jan, [facility] [address] [facility] [id number][place] [address] Jan, [facility] [id number] [address] Jan, [facility] [id number], [place] [address] Dec, [facility] [id number], [place] [address] Dec, [facility] [id number] [address] Dec, [facility] [address] [id number], [place] [address] Dec, [facility] [address] [id number], [place] [address] Nov, [facility] [address] [id number], [place] [address] Oct, IMMUNIZATIONS No Known Immunizations SOCIAL HISTORY Never Assessed REASON FOR VISIT Medication refill request PLAN OF CARE VITAL SIGNS MEDICATIONS Medication Instructions Dosage Frequency Start Date End Date Duration Status Lantus SoloStar 100 UNIT/ML Subcutaneous 2 times a day inject 35 units 12h Oct, 90 days Active NovoLog 100 UNIT/ML Subcutaneous 3 times a day Inject 30 units with meals 8h 05 Dec, 2015 90 days Active RESULTS No Results PROCEDURES [...] History Proteinuria Medical History Leukocytosis, unspecified type Medical History 11/2017 Nuclear stress test [facility] WN Medical History 11/2017 Swallow study Severe gastroparesis. Surgical History Gall stone/Kidney stone removal Surgical History Mass removal from groin Surgical History Gallbladder removal Surgical History Stents Surgical History stress test 11/2017 Surgical History stomach test--empty slowly 11/2017 Hospitalization History Surgery Hospitalization History GERD, Atypical Chest Pain, Uncontrolled DMT2, Essential HTN, CKD stage 3, Obesity 06/27/15 Hospitalization History Stent placement 06/2016 Hospitalization History addtl stent placement 07/2016 Hospitalization History Acute left knee pseudogout status post joint fluid analysis-[facility] 09/20/16 Hospitalization History kidneys--[facility] 11/2017
--- OUTSIDE RECORDS SUMMARY | 2018-01-17 16:45 | XMS REPORT ---
Author Author CHAPARRO MUJICA [facility] Address [address] [place] [address] Care Team Providers Care Engineering Inspection Assistant Name Role Phone CHAPARRO MUJICA Unavailable PROBLEMS Type Condition ICD9-CM Code YCK19-BZ Code Onset Dates Condition Status SNOMED Code Problem Chronic kidney disease, stage 3 N18.3 Active 296079538 Problem Mixed hyperlipidemia E78.2 Active 199756842 Problem Mood disorder F39 Active 33463516 Problem Delayed gastric emptying K30 Active 691217501 Problem Chronic kidney disease, stage V (very severe) N18.5 Active 154310758 Problem Gout of left knee due to renal impairment, unspecified chronicity M10.362 Active 912904944 Problem Pseudogout M11.20 Active 206158271 Problem Essential hypertension I10 Active 24081685 Problem Primary osteoarthritis of left knee M17.12 Active 108294008796203 Problem Hypertriglyceridemia E78.1 Active 118041285 Problem Gout, unspecified M10.9 Active 44428962 Problem Coronary atherosclerosis of unspecified type of vessel, [place] or graft I25.10 Active 043597564 Problem snf 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 Active 410217326 Problem Insomnia, unspecified G47.00 Active 860480892 Problem Type 2 diabetes mellitus with hyperglycemia E11.65 Active 782488435224121 Problem Gastroesophageal reflux disease, esophagitis presence not specified K21.9 Active 871206196 Problem 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 406663900 ALLERGIES No Information ENCOUNTERS Encounter Location Date Diagnosis [facility] [id number], [place] [address] 03 Jan, 2018 [facility] [id number], [place] [address] 3[address] 14 Dec, 2017 [facility] [id number], [place] [address] 8782 Dec, Chronic kidney disease, stage 3 N18.3 [facility] [id number] [place] [address] 33635- 0796 Dec, Type 2 diabetes mellitus with hyperglycemia E11.65 [facility] [id number] [place] [address] 78361- 1812 Dec, [facility] [id number] [place] [address] 94045- 4180 Nov, Type 2 diabetes mellitus with hyperglycemia E11.65 [facility] [id number] [place] [address] 64275- 9056 Nov, [place] [id number] [place] [address] 77526- 2526 Nov, Chronic kidney disease, stage V (very severe) N18.5 ; Type 2 diabetes mellitus with hyperglycemia E11.65 ; Encounter for immunization Z23 and Delayed gastric emptying K30 [place] [id number] [place] [address] 15903- 5517 Nov, [place] [id number] [place] [address] 45856- 1260 Oct, Essential hypertension I10 ; Coronary atherosclerosis of unspecified type of vessel, [place] or graft I25.10 ; Type 2 diabetes mellitus with hyperglycemia E11.65 and Gout, unspecified M10.9 [place] [id number] [place] [address] 04232- 4850 Oct, Chronic kidney disease, stage V (very severe) N18.5 [place] [id number] [place] [address] 60298- 6043 Oct, Mixed hyperlipidemia E78.2 [place] [id number] [place] [address] 82048- 9674 Sep, Type 2 diabetes mellitus with hyperglycemia E11.65 [facility] [id number] [place] [address] 61948- 8324 Sep, Mixed hyperlipidemia E78.2 [place] [address] [place] [address] 13289- 5143 16 Sep, 2017 Chronic kidney disease, stage V (very severe) N18.5 [place] [id number] [place] [address] 30220- 0374 Sep, Type 2 diabetes mellitus with hyperglycemia E11.65 and Essential hypertension I10 [place] [id number] [place] [address] 79300- 4997 Sep, Type 2 diabetes mellitus with hyperglycemia E11.65 [place] [id number] [place] [address] 38619- 2060 Aug, Gout, unspecified M10.9 ; Gastroesophageal reflux disease, esophagitis presence not specified K21.9 ; Mood disorder F39 and Coronary atherosclerosis of unspecified type of vessel, [place] or graft I25.10 [id number] [place] [address] 81601- 7457 Aug, [place] [id number] [place] [address] 46038- 2546 June, Type 2 diabetes mellitus with hyperglycemia E11.65 [place] [id number] [place] [address] 15140- 7439 May, Mood disorder F39 ; Gastroesophageal reflux disease, esophagitis presence not specified K21.9 ; Gout, unspecified M10.9 ; Coronary atherosclerosis of unspecified type of vessel, wy[place] or graft I25.10 and Type 2 diabetes mellitus with hyperglycemia E11.65 [place] [address] [place] [address] 02716- 8315 May, Type 2 diabetes mellitus with hyperglycemia E11.65 [place] [id number] [place] [address] 30806- 0256 Apr, Diabetes E11.9 and Mood disorder F39 [place] [id number] [place] [address] 13032- 7518 Mar, Primary osteoarthritis of left knee M17.12 and Tear of lateral meniscus of left knee, unspecified tear type, unspecified whether old or current tear, initial encounter S83.282A [place] [id number] [place] [address] 34174- 0638 Feb, Mood disorder F39 [facility] [id number] [place] [address] 94741- 9861 Feb, Pseudogout M11.20 [facility] [id number] [place] [address] 07786- 4964 Jan, Other long term care pharmacist (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 [facility]ALK IN [facility] [id number] [place] [address] 18718 -9388 Jan, [place] [id number] [place] [address] 62618- 4197 Jan, Pseudogout M11.20 ; Type 2 diabetes mellitus with hyperglycemia E11.65 and Other [facility] (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 [place] [id number] [place] [address] 95038- 6820 Jan, Gout of left knee due to renal impairment, unspecified chronicity M10.362 ; Type 2 diabetes mellitus with diabetic nephropathy E11.21 ; Synovial cyst of popliteal space [Mejia], left knee M71.22 and Low back pain M54.5 [place] [id number] [place] [address] 85963- 2941 Dec, Pseudogout M11.20 [place] [id number] [place] [address] 42994- 0373 14 Dec, 2016 [place] [id number] [place] [address] 48973- 2569 13 Dec, 2016 Type 2 diabetes mellitus with diabetic nephropathy E11.21 and Right anterior knee pain M25.561 [place] [id number] [place] [address] 25511- 0565 Nov, Pseudogout M11.20 [place] [id number] [place] [address] 51117- 1598 Nov, Pseudogout M11.20 ; Chronic kidney disease, stage 3 N18.3 ; Mixed hyperlipidemia E78.2 ; Gout, unspecified M10.9 ; Coronary atherosclerosis of unspecified type of vessel, wy[place] or graft I25.10 ; Mood disorder F39 and Gastroesophageal reflux disease, esophagitis presence not specified K21.9 [facility] [address] [place] [address] 82313- 6294 Nov, [facility] [id number] [place] [address] 14767- 6764 Oct, Pseudogout M11.20 [facility] [id number] [place] [address] 77154- 0662 Sep, Pseudogout M11.20 [facility] [id number] [place] [address] 07665- 6824 Sep, Pseudogout M11.20 [facility] [id number] [place] [address] 65603- 5301 Sep, [facility] [id number] [place] [address] [id number] Aug, [facility] [id number] [place] [address] 82234- 1543 Aug, Diabetes E11.9 ; Chronic kidney disease, stage 3 N18.3 ; Hyperuricemia E79.0 ; Mixed hyperlipidemia E78.2 ; Gastroesophageal reflux disease, esophagitis presence not specified K21.9 ; Gout, unspecified M10.9 ; Coronary atherosclerosis of unspecified type of vessel, wy[place] or graft I25.10 and Mood disorder F39 [facility] [id number] [place] [address] 57896- 7370 June, [facility] [id number] [place] [address] 22971- 2867 June, [facility] [address] [place] [address] 22093- 3690 June, [place] [address], [place] [address]- 8536 May, Chronic renal failure, stage 3 (moderate) N18.3 [facility] [id number] [place] [address] 81143- 6700 May, Diabetes E11.9 [facility] [id number] [place] [address] 88019- 4146 May, [facility] [id number] [place] [address] 12732- 4440 Apr, [facility] [id number] [place] [address] 79351- 1726 Apr, [place] [id number] [place] [address] 11945- 6229 Apr, Cellulitis of right lower extremity L03.115 and Diabetes E11.9 [place] [id number] [place] [address] 40089- 1444 Apr, Type 2 diabetes mellitus with hyperglycemia E11.65 [place] [id number] [place] [address] 49608- 5597 Mar, Cellulitis of right lower extremity L03.115 and Low back pain M54.5 [place] [id number] [place] [address] 98062- 7297 Mar, [facility] [id number] [place] [address] 80670- 9601 Mar, Cellulitis of right lower extremity L03.115 [facility] [address] [place] [address] 31470- 0867 Mar, Cellulitis of right lower extremity L03.115 [facility] [id number] [place] [address] 501052- 5473 Feb, Cellulitis of right lower extremity L03.115 [facility] [address] [place] [address] 75293- 9505 Feb, Cellulitis of right lower extremity L03.115 [facility] [address], [place] [address]- 6368 Feb, [facility] [address] [place] [address] 44771- 8945 Feb, Leukocytosis, unspecified type D72.829 ; Chronic renal failure, stage 3 (moderate) N18.3 and Type 2 diabetes mellitus with hyperglycemia E11.65 [address] [place], [place] [address]- 8301 Feb, Leukocytosis, unspecified type D72.829 [address] [address] [place] [address] 02349- 7392 Feb, [address] [place] [address] [place] [address] 49719- 9734 Feb, Cellulitis of right lower extremity L03.115 ; Thrush B37.0 ; Gout of left knee due to renal impairment, unspecified chronicity M10.362 and Chronic renal failure, stage 3 (moderate) N18.3 [address], [place] [address]- 9470 Feb, [address] [address], [place] [address]- 7850 Feb, Right foot infection L08.9 ; Type 2 diabetes mellitus with hyperglycemia E11.65 ; Arthralgia of left knee M25.562 ; Chronic kidney disease , stage 3 N18.3 and Diabetes E11.9 [address] [place], [place] [address]- 0042 Feb, [address] [place] [place] [address] 85099- 6931 Feb, Diabetes E11.9 ; Arthralgia of left knee M25.562 and Thrush B37.0 [address] [place] [address] [place] [address] 24756- 3051 Jan, [address], [place] [address]- 8614 Jan, Type 2 diabetes mellitus with hyperglycemia E11.65 ; Chronic renal failure, stage 3 (moderate) N18.3 and Leukocytosis, unspecified type D72.829 [address] [place] [address] [place] [address] 24866- 5009 Jan, Type 2 diabetes mellitus with hyperglycemia E11.65 [place] [id number] [place] [address] 79504- 7576 Dec, Gout of left knee due to renal impairment, unspecified chronicity M10.362 [place] [id number] [place] [address] 24352- 6458 Dec, Gout of left knee due to renal impairment, unspecified chronicity M10.362 and Diabetes E11.9 [place] [id number] [place] [address] 27569- 7232 Dec, [place] [id number] [place] [address] 58403- 1605 Dec, [facility]ALK IN [place] [id number] [place] [address] 45034 -2534 Dec, [address] [place] [place] [address] 56346- 5221 Dec, Chronic kidney disease, stage 3 N18.3 ; Type 2 diabetes mellitus with diabetic nephropathy E11.21 ; Type 2 diabetes mellitus with hyperglycemia E11.65 and long term care administrator 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 [facility] IN [facility] [address] [place] [address] 25232 -2862 Dec, Leukocytosis, unspecified type D72.829 ; Chronic renal failure, stage 3 (moderate) N18.3 and Nausea R11.0 [address] [address] [place] [address] 08544- 1704 Nov, [place] [id number] [place] [address] 47146- 1134 Jul, [facility] [id number] [place] [address] 95369- 0369 Jul, Diabetes E11.9 ; Low back pain M54.5 and Other chronic pain G89.29 [facility] [id number] [place] [address] 66577- 9410 June, [facility] [address] 17083- 2459 June, [facility] [address] 00043- 8725 Jan, Viral illness B34.9 [address] [address] 60844- 2426 Jan, Type 2 diabetes mellitus with hyperglycemia E11.65 ; Pain in right foot M79.671 and Localized edema R60.0 [address] [address] 10733- 8163 Jan, [facility] [address] 22794- 9054 Dec, Right foot pain M79.671 ; Insomnia, unspecified type G47.00 and Diabetes E11.9 [facility] [id number] [place] [address] 76402- 5951 Dec, Pain in right foot M79.671 [facility] [id number] [place] [address] 90586- 3034 Nov, [facility] [id number] [place] [address] 76214- 7560 Sep, [facility] [address] 42511- 3836 Sep, Diabetes mellitus, type II 250.00 [facility] [id number] [place] [address] 76235- 0428 May, [facility] [address] [place] [address]- 9232 13 May, 2014 [facility] [place] [facility] [address] [id number] [place] [address]- 9729 19 Apr, 2014 [facility] [place] [facility] [address] [id number] [place] [address]- 5416 19 Apr, 2014 [facility] [place] [facility] [address] [id number] [place] [address]- 6339 16 Apr, 2014 [facility] [place] [facility] [address] [id number] [place] [address]- 5438 16 Apr, 2014 [facility] [place] [facility] [address] [id number] [place] [address]- 3895 12 Apr, 2014 [facility] [place] [facility] [address] [id number] [place] [address]- 0371 12 Apr, 2014 [facility] [place] [facility] [address] [id number] [place] [address]- 8549 05 Apr, 2014 [facility] [place] [facility] [address] [id number] [place] [address]- 4556 05 Apr, 2014 [facility] [place] [facility] [address] [id number] [place] [address]- 4111 18 Jan, 2014 [facility] [place] [facility] [address] [facility] [id number] [place] [address]- 9820 18 Jan, 2014 [facility] [place] [facility] [address] [id number] [place] [address]- 2577 15 Jan, 2014 [facility] [place] [facility] [address] [id number] [place] [address]- 5847 15 Jan, 2014 [facility] [place] [facility] [address] [id number] [place] [address]- 6094 10 Dec, 2013 [facility] [place] [facility] [address] [facility] [id number] [place] [address]- 9013 10 Dec, 2013 [facility] [place] [facility] [address] [facility] [id number] [place] [address]- 1060 13 Nov, 2013 [facility] [place] [facility] [address] [id number] [place] [address]- 8599 Nov, [facility] [place] [facility] [address] [id number] [place] [address]- 4606 Oct, [facility] [place] [facility] [address] [id number] [place] [address]- 6259 Oct, [facility] [place] [facility] [address] [id number] [place] [address]- 5278 Oct, [facility] [place] [facility] [address] [id number] [place] [address]- 4804 Oct, [facility] [place] [facility] [address] [id number] [place] [address]- 7171 Sep, [facility] [place] [facility] [address] [id number] [place] [address]- 1052 Sep, [facility] [place] [facility] [address] [id number] [place] [address]- 8931 Sep, [facility] [place] [facility] [address] [id number] [place] [address]- 0385 Sep, [facility] [place] [facility] [address] [id number] [place] [address]- 9701 Sep, [facility] [place] [facility] [address] [id number] [place] [address]- 1546 Sep, [facility] [place] [facility] [address] [id number] [place] [address]- 3606 Sep, [facility] [place] [facility] [address] [id number] [place] [address]- 5770 Sep, [facility] [place] [facility] [address] [id number] [place] [address]- 1428 Sep, [facility] [place] [facility] [address] [id number] [place] [address]- 0752 Sep, [facility] [place] [facility] [address] [id number] [place] [address]- 2468 Sep, [facility] [place] [facility] [address] [id number] [place] [address]- 4561 Sep, [facility] [place] [facility] [address] [id number] [place] [address]- 7345 Aug, [facility] [place] [facility] [address] [id number] [place] [address]- 0170 Aug, [facility] [place] [facility] [address] [id number] [place] [address]- 5365 Aug, [facility] [place] [facility] [address] [id number] [place] [address]- 7083 Aug, [facility] [place] [facility] [address] [id number] [place] [address]- 6073 June, [facility] [place] [facility] [address] [id number] [place] [address]- 9784 May, [facility] [place] [facility] [address] [id number] [place] [address]- 0294 24 May, 2013 [facility] [place] [facility] [address] [id number] [place] [address]- 2940 May, [facility] [place] [facility] [address] [id number] [place] [address]- 1835 18 May, 2013 [facility] [place] [facility] [address] [id number] [place] [address]- 9769 May, [facility] [place] [facility] [address] [id number] [place] [address]- 7213 17 May, 2013 [facility] [place] [facility] [address] [id number] [place] [address]- 6813 16 May, 2013 [facility] [place] [facility] [address] [id number] [place] [address]- 5608 16 May, 2013 [facility] [place] [facility] [address] [id number] [place] [address]- 0933 May, [facility] [place] [facility] [address] [id number] [place] [address]- 5671 14 May, 2013 [facility] [address] [id number] [place] [address]- 7173 May, [facility] [place] [facility] [address] [id number] [place] [address]- 2031 May, [facility] [place] [facility] [address] [id number] [place] [address]- 3508 Apr, [facility] [place] [facility] [address] [id number] [place] [address]- 9351 Apr, [facility] [place] [facility] [address] [id number] [place] [address]- 4189 Mar, [facility] [place] [facility] [address] [id number] [place] [address]- 2608 Mar, [facility] [place] [facility] [address] [id number] [place] [address]- 2526 Dec, [facility] [place] [facility] [address] [id number] [place] [address]- 7728 Dec, [facility] [place] [facility] [address] [id number] [place] [address]- 0018 Dec, [facility] [place] [facility] [address] [facility] [id number] [place] [address]- 2594 Dec, [facility] [place] [facility] [address] [id number] [place] [address]- 9826 Nov, [facility] [place] [facility] [address] [id number] [place] [address]- 3752 Nov, [facility] [place] [facility] [address] [id number] [place] [address]- 5297 30 Oct, 2012 [facility] [place] [facility] [address] [id number] [place] [address]- 5106 Oct, [facility] [place] [facility] [address] [id number] [place] [address] Aug, [facility] [address] [id number] [place] [address] Aug, [facility] [place] [facility] [address] [id number] [place] [address] Aug, [facility] [address] [id number] [place] [address] Jul, [facility] [place] [facility] [address] [id number] [place] [address] June, [facility] [address] [id number] [place] [address] June, [facility] [place] [facility] [address] [id number] [place] [address] Apr, [facility] [place] [facility] [address] [id number] [place] [address] Mar, [facility] [place] [facility] [address] [id number] [place] [address] Mar, [facility] [place] [facility] [address] [id number] [place] [address] Mar, [facility] [place] [facility] [address] [id number] [place] [address] Mar, [facility] [place] [facility] [address] [id number] [place] [address] Mar, [facility] [place] [facility] [address] [id number], [place] [address] Feb, [facility] [place] [facility] [address] [id number] [place] [address] Feb, [facility] [place] [facility] [address] [id number] [place] [address] Feb, [facility] [place] [facility] [address] [id number] [place] [address] Feb, [facility] [place] [facility] [address] [id number] [place] [address] Jan, [facility] [address] [id number] [place] [address] Jan, [facility] [place] [facility] [address] [id number] [place] [address] Dec, [facility] [address] [id number] [place] [address] Dec, [facility] [place] [facility] [address] [id number] [place] [address] Dec, [facility] [address] [id number] [place] [address] Dec, [facility] [place] [facility] [address] [id number] [place] [address] Oct, [facility] [address] [id number] [place] [address] Aug, [facility] [address] [id number] [place] [address] Jul, [facility] [place] [facility] [address] [id number] [place] [address] June, [facility] [address] [id number] [place] [address] June, [facility] [place] [facility] [address] [id number] [place] [address] June, [facility] [place] [facility] [address] [id number] [place] [address] June, [facility] [place] [facility] [address] [id number] [place] [address] June, [facility] [place] [facility] [address] [id number] [place] [address] May, [facility] [place] [facility] [address] [id number] [place] [address] May, [facility] [place] [facility] [address] [address] [id number] [place] [address] 15 Apr, 2011 [facility] [place] [facility] [address] [id number] [place] [address] 13 Apr, 2011 [facility] [place] [facility] [address] [id number] [place] [address] 27 Mar, 2011 [facility] [place] [facility] [address] [id number] [place] [address] Feb, [facility] [address] [id number] [place] [address] Nov, [facility] [place] [facility] [address] [id number] [place] [address] 13 Nov, 2010 [facility] [place] [facility] [address] [id number] [place] [address] Nov, [facility] [address] [id number] [place] [address] 17 Apr, 2010 [facility] [place] [facility] [address] [id number] [place] [address] Jan, [facility] [place] [facility] [address] [id number] [place] [address] 24 Dec, 2009 [facility] [place] [facility] [address] [id number] [place] [address] Dec, [facility] [place] [facility] [address] [id number], [place] [address] 29 Nov, 2009 [facility] [place] [facility] [address] [id number] [place] [address] June, [facility] [place] [facility] [address] [id number] [place] [address] 29 Jan, 2009 [facility] [place] [facility] [address] [id number] [place] [address] Jan, [facility] [place] [facility] [address] [id number], [place] [address] 23 Jan, 2009 [facility] [address] [id number], [place] [address] 22 Jan, 2009 [facility] [address] [id number], [place] [address] 16 Jan, 2009 [facility] [address] [id number], [place] [address] 15 Jan, 2009 [facility] [address] [id number], [place] [address] 15 Jan, 2009 [facility] [address] [id number], [place] [address] 11 Jan, 2009 [facility] [address] [id number], [place] [address] 11 Jan, 2009 [facility] [id number], [place] [address] 10 Jan, 2009 [facility] [address] [id number], [place] [address] 04 Jan, 2009 [facility] [address] [id number], [place] [address] 02 Jan, 2009 [facility] [address] [id number], [place] [address] 25 Dec, 2008 [facility] [address] [id number], [place] [address] Dec, [facility] [address] [id number], [place] [address] 17 Dec, 2008 [facility] [address] [id number], [place] [address] 17 Dec, 2008 [facility] [address] [id number], [place] [address] 20 Nov, 2008 [facility] [address] [id number], [place] [address] 10 Oct, 2008 IMMUNIZATIONS No Known Immunizations SOCIAL HISTORY Never Assessed REASON FOR VISIT Nephrology Appt PLAN OF CARE VITAL SIGNS MEDICATIONS Unknown [...] pseudogout status post joint fluid analysis-VC 09/20/16 Hospitalization History kidneys--[facility] 11/2017
--- OUTSIDE RECORDS SUMMARY | 2018-01-17 16:46 | XMS REPORT ---
Author Author CHAPARRO MUJICA [facility] Address [address] [place] [address] Care Team Providers Care Boom Master Name Role Phone CHAPARRO MUJICA Unavailable PROBLEMS Type Condition ICD9-CM Code [id number] Code Onset Dates Condition Status SNOMED Code Problem Chronic kidney disease, stage 3 N18.3 Active 838432734 Problem Mixed hyperlipidemia E78.2 Active 399088509 Problem Mood disorder F39 Active 30365895 Problem Delayed gastric emptying K30 Active 714230657 Problem Chronic kidney disease, stage V (very severe) N18.5 Active 902814120 Problem Gout of left knee due to renal impairment, unspecified chronicity M10.362 Active 001588603 Problem Pseudogout M11.20 Active 741280178 Problem Essential hypertension I10 Active 18170856 Problem Primary osteoarthritis of left knee M17.12 Active 265466378255618 Problem Hypertriglyceridemia E78.1 Active 390643643 Problem Gout, unspecified M10.9 Active 51571409 Problem Coronary atherosclerosis of unspecified type of vessel, [place] or graft I25.10 Active 999076398 Problem 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 Active 820301939 Problem Insomnia, unspecified G47.00 Active 686954337 Problem Type 2 diabetes mellitus with hyperglycemia E11.65 Active 050260830778417 Problem Gastroesophageal reflux disease, esophagitis presence not specified K21.9 Active 939624151 Problem 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 369622879 ALLERGIES No Information ENCOUNTERS Encounter Location Date Diagnosis [facility] [id number] [address] Dec, [facility] [id number] [address] Nov, Type 2 diabetes mellitus with hyperglycemia E11.65 [facility] [id number] [place] [address] 09898- 5390 18 Nov, 2017 [place] [address] 58095- 3096 17 Nov, 2017 Chronic kidney disease, stage V (very severe) N18.5 ; Type 2 diabetes mellitus with hyperglycemia E11.65 ; Encounter for immunization Z23 and Delayed gastric emptying K30 [place] [id number] [place] [address] 16512- 2821 Nov, [place] [address] 20665- 6051 Oct, Essential hypertension I10 ; Coronary atherosclerosis of unspecified type of vessel, or[place] or graft I25.10 ; Type 2 diabetes mellitus with hyperglycemia E11.65 and Gout, unspecified M10.9 [place] [address] 96148- 1751 Oct, Chronic kidney disease, stage V (very severe) N18.5 [place] [address] 36615- 1818 Oct, Mixed hyperlipidemia E78.2 [place] [address] 27145- 2891 Sep, Type 2 diabetes mellitus with hyperglycemia E11.65 [facility] [id number] [place] [address] 81505- 5836 Sep, Mixed hyperlipidemia E78.2 [place] [id number] [place] [address] 23946- 9472 Sep, Chronic kidney disease, stage V (very severe) N18.5 [place] [id number] [place] [address] 24716- 3460 Sep, Type 2 diabetes mellitus with hyperglycemia E11.65 and Essential hypertension I10 [place] [id number] [place] [address] 53589- 0826 Sep, Type 2 diabetes mellitus with hyperglycemia E11.65 [place] [address] 86133- 0453 Aug, Gout, unspecified M10.9 ; Gastroesophageal reflux disease, esophagitis presence not specified K21.9 ; Mood disorder F39 and Coronary atherosclerosis of unspecified type of vessel, or[place] or graft I25.10 [place] [id number] [place] [address] 41440- 3979 Aug, [place] [id number] [place] [address] 90016- 2457 June, Type 2 diabetes mellitus with hyperglycemia E11.65 [place] [id number] [place] [address] 72638- 1414 May, Mood disorder F39 ; Gastroesophageal reflux disease, esophagitis presence not specified K21.9 ; Gout, unspecified M10.9 ; Coronary atherosclerosis of unspecified type of vessel, orutsar[place] or graft I25.10 and Type 2 diabetes mellitus with hyperglycemia E11.65 [facility] [id number] [place] [address] 09908- 9971 May, Type 2 diabetes mellitus with hyperglycemia E11.65 [facility] [id number] [place] [address] 62601- 2020 Apr, Diabetes E11.9 and Mood disorder F39 [place] [address] [place] [address] 01254- 9877 15 Mar, 2017 Primary osteoarthritis of left knee M17.12 and Tear of lateral meniscus of left knee, unspecified tear type, unspecified whether old or current tear, initial encounter S83.282A [place] [address] [place] [address] 30459- 9199 Feb, Mood disorder F39 [place] [id number] [place] [address] 01761- 7900 Feb, Pseudogout M11.20 [place] [address] [place] [address] 30105- 2712 Jan, Other enhanced environmental operator (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 [facility] [id number] [place] [address] 06405 -6609 Jan, [place] [address] 79089- 0683 Jan, Pseudogout M11.20 ; Type 2 diabetes mellitus with hyperglycemia E11.65 and Other fpc (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 [place] [address] 17236- 2838 Jan, Gout of left knee due to renal impairment, unspecified chronicity M10.362 ; Type 2 diabetes mellitus with diabetic nephropathy E11.21 ; Synovial cyst of popliteal space [Mejia], left knee M71.22 and Low back pain M54.5 [place] [address] 50306- 9114 Dec, Pseudogout M11.20 [place] [address] 90444- 2094 Dec, [place] [address] 68893- 3876 Dec, Type 2 diabetes mellitus with diabetic nephropathy E11.21 and Right anterior knee pain M25.561 [place] [address] 45333- 7786 Nov, Pseudogout M11.20 [place] [address] 29752- 4359 Nov, Pseudogout M11.20 ; Chronic kidney disease, stage 3 N18.3 ; Mixed hyperlipidemia E78.2 ; Gout, unspecified M10.9 ; Coronary atherosclerosis of unspecified type of vessel, or[place] or graft I25.10 ; Mood disorder F39 and Gastroesophageal reflux disease, esophagitis presence not specified K21.9 [place] [address] 51355- 3500 16 Nov, 2016 [place] [address] 07010- 9223 Oct, Pseudogout M11.20 [facility] [address] [place] [address] 07215- 1725 Sep, Pseudogout M11.20 [facility] [id number] [place] [address] 45965- 4390 Sep, Pseudogout M11.20 [facility] [id number] [place] [address] 13904- 6759 Sep, [facility] [address] [id number] Aug, [facility] [id number] [place] [address] 00970- 6861 Aug, Diabetes E11.9 ; Chronic kidney disease, stage 3 N18.3 ; Hyperuricemia E79.0 ; Mixed hyperlipidemia E78.2 ; Gastroesophageal reflux disease, esophagitis presence not specified K21.9 ; Gout, unspecified M10.9 ; Coronary atherosclerosis of unspecified type of vessel, orutsar[place] or graft I25.10 and Mood disorder F39 [facility] [id number] [place] [address] 35212- 5151 June, [facility] [id number] [place] [address] 81337- 1280 June, [facility] [id number] [place] [address] 65110- 6331 June, [facility] [id number] [place] [address] 99185- 9586 May, Chronic renal failure, stage 3 (moderate) N18.3 [facility] [id number] [place] [address] 83280- 7156 May, Diabetes E11.9 [facility] [id number] [place] [address] 04955- 4259 May, [facility] [id number] [place] [address] 65747- 9846 Apr, [place] [address] [address] 6016 Apr, [place] [id number] [place] [address] 67742- 9265 Apr, Cellulitis of right lower extremity L03.115 and Diabetes E11.9 [place] [address] [place] [address] 64930- 7068 Apr, Type 2 diabetes mellitus with hyperglycemia E11.65 [place] [id number] [place] [address] 81917- 3404 Mar, Cellulitis of right lower extremity L03.115 and Low back pain M54.5 [place] [id number] [place] [address] 42288- 9562 Mar, [place] [id number] [place] [address] 71637- 8584 Mar, Cellulitis of right lower extremity L03.115 [place] [address] [place] [address] 09472- 6000 Mar, Cellulitis of right lower extremity L03.115 [place] [address] [place] [address] 64404- 1338 Feb, Cellulitis of right lower extremity L03.115 [place] [address] [place] [address] 31951- 0860 Feb, Cellulitis of right lower extremity L03.115 [place] [address] [place] [address] 97305- 4437 Feb, [place] [address] [place] [address] 07760- 3577 Feb, Leukocytosis, unspecified type D72.829 ; Chronic renal failure, stage 3 (moderate) N18.3 and Type 2 diabetes mellitus with hyperglycemia E11.65 [place] [address] [address]- 3691 Feb, Leukocytosis, unspecified type D72.829 [place] [id number], [place] [address]- 9265 Feb, [place] [address], [place] [address]- 0052 Feb, Cellulitis of right lower extremity L03.115 ; Thrush B37.0 ; Gout of left knee due to renal impairment, unspecified chronicity M10.362 and Chronic renal failure, stage 3 (moderate) N18.3 [place] [address] [address]- 8671 Feb, [place] [address] [place] [address] 12554- 1514 Feb, Right foot infection L08.9 ; Type 2 diabetes mellitus with hyperglycemia E11.65 ; Arthralgia of left knee M25.562 ; Chronic kidney disease , stage 3 N18.3 and Diabetes E11.9 [place] [address], [place] [address]- 5956 Feb, [place] [address] [address]- 9973 Feb, Diabetes E11.9 ; Arthralgia of left knee M25.562 and Thrush B37.0 [place] [address] [address]- 9826 Jan, [place] [address] [address]- 3286 Jan, Type 2 diabetes mellitus with hyperglycemia E11.65 ; Chronic renal failure, stage 3 (moderate) N18.3 and Leukocytosis, unspecified type D72.829 [place] [address], [place] [address]- 0498 Jan, Type 2 diabetes mellitus with hyperglycemia E11.65 [place] [id number], [place] [address]- 4752 Dec, Gout of left knee due to renal impairment, unspecified chronicity M10.362 [facility] [id number] [place] [address] 25026- 7081 Dec, Gout of left knee due to renal impairment, unspecified chronicity M10.362 and Diabetes E11.9 [facility] [id number] [place] [address] 43757- 2964 Dec, [facility] [address] 02218- 2557 Dec, [facility] [id number] [place] [address] 41297 -7446 Dec, [place] [address] 09220- 1067 Dec, Chronic kidney disease, stage 3 N18.3 ; Type 2 diabetes mellitus with diabetic nephropathy E11.21 ; Type 2 diabetes mellitus with hyperglycemia E11.65 and 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 [facility] [id number] [place] [address] 18969 -2688 Dec, Leukocytosis, unspecified type D72.829 ; Chronic renal failure, stage 3 (moderate) N18.3 and Nausea R11.0 [place] [id number] [place] [address] 22704- 6288 Nov, [place] [id number] [place] [address] 74720- 2610 Jul, [place] [id number] [place] [address] 37223- 8523 Jul, Diabetes E11.9 ; Low back pain M54.5 and Other chronic pain G89.29 [place] [id number] [place] [address] 07393- 1886 June, [place] [id number] [place] [address] 51698- 4949 June, [place] [address] 04029- 5621 Jan, Viral illness B34.9 [facility] [id number] [place] [address] 69264- 0424 Jan, Type 2 diabetes mellitus with hyperglycemia E11.65 ; Pain in right foot M79.671 and Localized edema R60.0 [facility] [id number] [place] [address] 81208- 3776 Jan, [facility] [address] 40236- 7608 Dec, Right foot pain M79.671 ; Insomnia, unspecified type G47.00 and Diabetes E11.9 [facility] [address] 64047- 0665 Dec, Pain in right foot M79.671 [facility] [id number] [place] [address] 26857- 6773 Nov, [facility] [id number] [place] [address] 60184- 6440 Sep, [facility] [id number] [place] [address] 85028- 8032 Sep, Diabetes mellitus, type II 250.00 [facility] [id number] [place] [address] 96367- 2213 14 May, 2014 [facility] [id number] [place] [address] 99777- 0481 May, [facility] [id number] [place] [address] 06201- 2530 Apr, [facility] [id number] [place] [address] 81845- 3813 Apr, [facility] [id number] [place] [address] 556987- 2410 Apr, [facility] [id number] [place] [address] 32567- 0100 Apr, [facility] [place] [facility] [address] [id number] [place] [address]- 7378 12 Apr, 2014 [facility] [place] [facility] [address] [id number] [place] [address]- 7223 12 Apr, 2014 [facility] [place] [facility] [address] [id number] [place] [address]- 3500 05 Apr, 2014 [facility] [place] [facility] [address] [id number] [place] [address]- 9714 05 Apr, 2014 [facility] [place] [facility] [address] [id number] [place] [address]- 7402 18 Jan, 2014 [facility] [place] [facility] [address] [id number] [place] [address]- 3256 18 Jan, 2014 [facility] [place] [facility] [address] [id number] [place] [address]- 1842 15 Jan, 2014 [facility] [place] [facility] [address] [id number] [place] [address]- 7051 15 Jan, 2014 [facility] [place] [facility] [address] [id number] [place] [address]- 4569 Dec, [facility] [place] [facility] [address] [id number] [place] [address]- 1847 Dec, [facility] [place] [facility] [address] [id number] [place] [address]- 8895 Nov, [facility] [place] [facility] [address] [id number] [place] [address]- 0696 Nov, [facility] [place] [facility] [address] [id number] [place] [address]- 4388 Oct, [facility] [place] [facility] [address] [id number] [place] [address]- 4381 Oct, [facility] [place] [facility] [address] [id number] [place] [address]- 6705 05 Oct, 2013 [facility] [place] [facility] [address] [id number] [place] [address]- 2321 Oct, [facility] [place] [facility] [address] [id number] [place] [address]- 3953 Sep, [facility] [place] [facility] [address] [id number] [place] [address]- 5106 Sep, [facility] [place] [facility] [address] [id number] [place] [address]- 9715 Sep, [facility] [place] [facility] [address] [id number] [place] [address]- 7738 Sep, [facility] [place] [facility] [address] [id number] [place] [address]- 6743 Sep, [facility] [place] [facility] [address] [id number] [place] [address]- 8279 Sep, [facility] [place] [facility] [address] [id number] [place] [address]- 0518 Sep, [facility] [place] [facility] [address] [id number] [place] [address]- 1142 Sep, [facility] [place] [facility] [address] [id number] [place] [address]- 7421 Sep, [facility] [place] [facility] [address] [id number] [place] [address]- 8867 Sep, [facility] [place] [facility] [address] [id number] [place] [address]- 8586 Sep, [facility] [place] [facility] [address] [id number] [place] [address]- 0722 Sep, [facility] [place] [facility] [address] [id number] [place] [address]- 6460 Aug, [facility] [place] [facility] [address] [id number] [place] [address]- 1725 Aug, [facility] [place] [facility] [address] [id number] [place] [address]- 6703 Aug, [facility] [place] [facility] [address] [id number] [place] [address]- 9802 14 Aug, 2013 [facility] [address] [id number] [place] [address]- 8844 23 Jun, 2013 [facility] [address] [id number] [place] [address]- 8805 24 May, 2013 [facility] [address] [id number] [place] [address]- 5018 24 May, 2013 [facility] [address] [id number] [place] [address]- 2395 21 May, 2013 [facility] [address] [id number] [place] [address]- 0922 18 May, 2013 [facility] [address] [id number] [place] [address]- 1263 17 May, 2013 [facility] [address] [id number] [place] [address]- 4900 17 May, 2013 [facility] [address] [id number] [place] [address]- 4862 16 May, 2013 [facility] [address] [id number] [place] [address]- 9391 16 May, 2013 [facility] [address] [id number] [place] [address]- 8538 14 May, 2013 [facility] [place] [facility] [address] [id number] [place] [address]- 7538 14 May, 2013 [facility] [address] [id number] [place] [address]- 1516 14 May, 2013 [facility] [place] [facility] [address] [id number] [place] [address]- 5338 14 May, 2013 [facility] [place] [facility] [address] [id number] [place] [address]- 8168 11 Apr, 2013 [facility] [place] [facility] [address] [id number] [place] [address]- 5749 Apr, [facility] [place] [facility] [address] [id number] [place] [address]- 6227 Mar, [facility] [place] [facility] [address] [id number] [place] 9126 Mar, [facility] [place] [facility] [address] [id number] [place] [address]- 4435 Dec, [facility] [place] [facility] [address] [id number] [place] [address]- 4484 Dec, [facility] [place] [facility] [address] [id number] [place] [address]- 4372 Dec, [facility] [place] [facility] [address] [id number] [place] [address]- 8921 Dec, [facility] [place] [facility] [address] [id number] [place] [address]- 3943 Nov, [facility] [place] [facility] [address] [id number] [address]- 5204 Nov, [facility] [place] [facility] [address] [id number] [place] [address]- 4048 Oct, [facility] [place] [facility] [address] [id number], [place] [address]- 5232 Oct, [facility] [place] [facility] [address] [id number], [place] [address]- 8963 Aug, [facility] [place] [facility] [address] [id number], [place] [address]- 7756 Aug, [facility] [place] [facility] [address] [id number] [place] [address]- 2545 Aug, [facility] [place] [facility] [address] [id number], [place] [address]- 2104 Jul, [facility] [place] [facility] [address] [id number], [place] [address]- 4097 June, [facility] [place] [facility] [address] [id number], [place] [address]- 3245 June, [facility] [address] [id number] [place] [address] Apr, [facility] [place] [facility] [address] [id number] [place] [address] Mar, [facility] [address] [id number] [place] [address] Mar, [facility] [place] [facility] [address] [id number] [place] [address] Mar, [facility] [address] [id number] [place] [address] Mar, [facility] [address] [id number] [place] [address] Mar, [facility] [address] [id number] [place] [address] Feb, [facility] [address] [id number] [place] [address] Feb, [facility] [address] [id number] [place] [address] Feb, [facility] [address] [facility] [id number] [place] [address] Feb, [facility] [address] [id number] [place] [address] Jan, [facility] [address] [id number] [place] [address] Jan, [facility] [place] [facility] [address] [id number] [place] [address] Dec, [facility] [place] [facility] [address] [id number] [place] [address] Dec, [facility] [address] [id number] [place] [address] Dec, [facility] [place] [facility] [address] [id number] [place] [address] Dec, [facility] [address] [id number] [place] [address] Oct, [facility] [address] [id number] [place] [address] Aug, [facility] [address] [id number] [place] [address] Jul, [facility] [address] [id number] [place] [address] June, [facility] [address] [id number] [place] [address] June, [facility] [address] [id number] [place] [address] June, [facility] [address] [id number] [place] [address] June, [facility] [address] [id number] [place] [address] June, [facility] [address] [id number] [place] [address] May, [facility] [place] [facility] [address] [id number] [place] [address] May, [facility] [place] [facility] [address] [id number] [place] [address] Apr, [facility] [place] [facility] [address] [id number] [place] [address] Apr, [facility] [place] [facility] [address] [id number] [place] [address] Mar, [facility] [place] [facility] [address] [id number] [place] [address] Feb, [facility] [place] [facility] [address] [id number], [place] [address] Nov, 2010 [facility] [address] [address] [id number] [place] [address] 13 Nov, 2010 [facility] [place] [facility] [address] [id number] [place] [address] 13 Nov, 2010 [facility] [place] [facility] [address] [id number] [place] [address] 17 Apr, 2010 [facility] [place] [facility] [address] [id number] [place] [address] 07 Jan, 2010 [facility] [place] [facility] [address] [id number] [place] [address] 24 Dec, 2009 [facility] [place] [facility] [address] [id number] [place] [address] Dec, [facility] [address] [id number] [place] [address] 29 Nov, 2009 [facility] [place] [facility] [address] [id number] [place] [address] June, [facility] [address] [id number] [place] [address] 29 Jan, 2009 [facility] [place] [facility] [address] [id number] [place] [address] 28 Jan, 2009 [facility] [place] [facility] [address] [id number] [place] [address] 23 Jan, 2009 [facility] [place] [facility] [address] [id number] [place] [address] 22 Jan, 2009 [facility] [place] [facility] [address] [id number] [place] [address]46 16 Jan, 2009 [facility] [place] [facility] [address] [id number] [place] [address]47 15 Jan, 2009 [facility] [place] [facility] [address] [id number] [place] [address] 254 15 Jan, 2009 [facility] [place] [facility] [address] [facility] [id number], [place] [address] 11 Jan, 2009 [facility] [address] [facility] [id number], [place] [address] Jan, [facility] [address] [facility] [id number], [place] [address] Jan, [facility] [address] [facility] [id number], [place] [address] Jan, [facility] [address] [facility] [id number], [place] [address] Jan, [facility] [address] [facility] [id number], [place] [address] Dec, [facility] [address] [facility] [id number][place] [address] Dec, [facility] [id number], [place] [address] Dec, [facility] [address] [facility] [id number], [place] [address] Dec, [facility] [id number] [address] Nov, [facility] [address] [id number], [place] [address] Oct, IMMUNIZATIONS No Known Immunizations SOCIAL HISTORY Never Assessed REASON FOR VISIT medication reconciliation per discharge summary Sandy PLAN OF CARE VITAL SIGNS MEDICATIONS Medication Instructions Dosage Frequency Start Date End Date Duration Status NovoLog 100 UNIT/ML Subcutaneous 3 times a day Inject 30 units with meals 8h Dec, 90 days Active Plavix 75 MG Orally Once a day 1 tablet 24h 90 days Active Lantus 100 UNIT/ML Subcutaneous 2 times a day Inject 35 units 12h Sep, 90 days Active Insulin Syringe 31G X 5/16 as directed Jan, Active Atorvastatin Calcium 40 MG Orally Once a day 1 tablet 24h 90 days Active Reglan 10 MG as directed Active BD Insulin Syringe Ultrafine 31G X 5/16 as directed May, Active Uloric 80 MG Orally Once a day 1 tablet 24h Aug, 90 days Active Toprol XL 100 mg Orally Once a day 1.5 tablets 24h 90 days Active Lantus SoloStar 100 UNIT/ML Subcutaneous 2 times a day Inject 35 units 12h Oct, 42 days Not-Taking BD Pen Needle Fiorella U/F 32G X 4 MM as directed Oct, Not- Taking Aspir-81 81 MG Orally Once a day 1 tablet 24h Active Trulicity 0.75 MG/0.5ML Subcutaneous once weekly Inject 0.5 ml Jan, 90 days Active Omeprazole 40 MG Orally Once a day 1 capsule 24h 30 days Active Seroquel 50 mg Orally Once a day 3 Tablets 24h 30 days Active RESULTS No Results PROCEDURES [...] Medical History 11/2017 Nuclear stress test [facility] Medical History 11/2017 Swallow study Severe gastroparesis. [...] pseudogout status post joint fluid analysis-[facility] 09/20/16 Hospitalization History kidneys--[facility] 11/2017
--- OUTSIDE RECORDS SUMMARY | 2018-01-17 16:47 | XMS REPORT ---
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 Name Role Phone CHAPARRO MUJICA Unavailable PROBLEMS Type Condition ICD9-CM Code KOY70-LF Code Onset Dates Condition Status SNOMED Code Problem Chronic kidney disease, stage 3 N18.3 Active 587966927 Problem Mixed hyperlipidemia E78.2 Active 970792323 Problem Mood disorder F39 Active 17605597 Problem Delayed gastric emptying K30 Active 312803203 Problem Chronic kidney disease, stage V (very severe) N18.5 Active 277348291 Problem Gout of left knee due to renal impairment, unspecified chronicity M10.362 Active 762452691 Problem Pseudogout M11.20 Active 002920654 Problem Essential hypertension I10 Active 97810877 Problem Primary osteoarthritis of left knee M17.12 Active 451464516644405 Problem Hypertriglyceridemia E78.1 Active 012914161 Problem Gout, unspecified M10.9 Active 59077516 Problem Coronary atherosclerosis of unspecified type of vessel, [place] or graft I25.10 Active 150473701 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 Active 255505614 Problem Insomnia, unspecified G47.00 Active 371822167 Problem Type 2 diabetes mellitus with hyperglycemia E11.65 Active 819051662785032 Problem Gastroesophageal reflux disease, esophagitis presence not specified K21.9 Active 760697844 Problem 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 [id number] ALLERGIES No Information ENCOUNTERS Encounter Location Date Diagnosis [facility] [address], [place] [address] Nov, Type 2 diabetes mellitus with hyperglycemia E11.65 [facility] [id number], [place] [address] Nov, [facility] [id number] [place] [address] 82942- 5529 Nov, Chronic kidney disease, stage V (very severe) N18.5 ; Type 2 diabetes mellitus with hyperglycemia E11.65 ; Encounter for immunization Z23 and Delayed gastric emptying K30 [facility] [id number] [place] [address] 87733- 6472 Nov, [facility] [address] 24892- 2513 Oct, Essential hypertension I10 ; Coronary atherosclerosis of unspecified type of vessel, [place] or graft I25.10 ; Type 2 diabetes mellitus with hyperglycemia E11.65 and Gout, unspecified M10.9 [facility] [address] 12659- 2529 Oct, Chronic kidney disease, stage V (very severe) N18.5 [facility] [address] 89449- 1341 Oct, Mixed hyperlipidemia E78.2 [facility] [address] 41979- 8659 Sep, Type 2 diabetes mellitus with hyperglycemia E11.65 [facility] [id number] [place] [address] 62661- 2578 Sep, Mixed hyperlipidemia E78.2 [facility] [id number] [place] [address] 44986- 8319 Sep, Chronic kidney disease, stage V (very severe) N18.5 [facility] [id number] [place] [address] 61116- 9924 Sep, Type 2 diabetes mellitus with hyperglycemia E11.65 and Essential hypertension I10 [facility] [address] 82315- 4251 Sep, Type 2 diabetes mellitus with hyperglycemia E11.65 [facility] [id number] [place] [address] 11600- 0383 Aug, Gout, unspecified M10.9 ; Gastroesophageal reflux disease, esophagitis presence not specified K21.9 ; Mood disorder F39 and Coronary atherosclerosis of unspecified type of vessel, [place] or graft I25.10 [facility] [id number] [place] [address] 77893- 3665 Aug, [facility] [id number] [place] [address] 72527- 2361 June, Type 2 diabetes mellitus with hyperglycemia E11.65 [facility] [id number] [place] [address] 97567- 1121 May, Mood disorder F39 ; Gastroesophageal reflux disease, esophagitis presence not specified K21.9 ; Gout, unspecified M10.9 ; Coronary atherosclerosis of unspecified type of vessel, [place] or graft I25.10 and Type 2 diabetes mellitus with hyperglycemia E11.65 [facility] [id number] [place] [address] 99457- 3772 May, Type 2 diabetes mellitus with hyperglycemia E11.65 [facility] [id number] [place] [address] 73953- 2648 Apr, Diabetes E11.9 and Mood disorder F39 [facility] [id number] [place] [address] 06959- 0761 Mar, Primary osteoarthritis of left knee M17.12 and Tear of lateral meniscus of left knee, unspecified tear type, unspecified whether old or current tear, initial encounter S83.282A [facility] [id number] [place] [address] 90579- 6102 Feb, Mood disorder F39 [facility] [id number] [place] [address] 48226- 7759 Feb, Pseudogout M11.20 [facility] [id number] [place] [address] 00749- 0850 Jan, Other long term care social worker (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 [facility] [id number] [place] [address] 80772 -0827 Jan, [facility] [id number] [place] [address] 84616- 4547 22 Jan, 2017 Pseudogout M11.20 ; Type 2 diabetes mellitus with hyperglycemia E11.65 and Other long term care social worker (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 [facility] [id number] [place] [address] 76137- 1886 18 Jan, 2017 Gout of left knee due to renal impairment, unspecified chronicity M10.362 ; Type 2 diabetes mellitus with diabetic nephropathy E11.21 ; Synovial cyst of popliteal space [Mejia], left knee M71.22 and Low back pain M54.5 [place] [id number] [place] [address] 78638- 9948 Dec, Pseudogout M11.20 [facility] [id number] [place] [address] 54549- 0280 14 Dec, [address] 62015- 2849 13 Dec, 2016 Type 2 diabetes mellitus with diabetic nephropathy E11.21 and Right anterior knee pain M25.561 [facility] [id number] [place] [address] 40637- 9800 Nov, Pseudogout M11.20 [place] [id number] [place] [address] 21885- 0994 Nov, Pseudogout M11.20 ; Chronic kidney disease, stage 3 N18.3 ; Mixed hyperlipidemia E78.2 ; Gout, unspecified M10.9 ; Coronary atherosclerosis of unspecified type of vessel, [place] or graft I25.10 ; Mood disorder F39 and Gastroesophageal reflux disease, esophagitis presence not specified K21.9 [facility] [place] [id number] [place] [address] 97975- 1523 Nov, [facility] [id number] [place] [address] 21307- 6466 Oct, Pseudogout M11.[address] 85800- 4433 Sep, Pseudogout M11.20 [facility] [id number] [place] [address] 98112- 3513 Sep, Pseudogout M11.20 [facility] [id number] [place] [address] 280524- 1053 Sep, [facility] [address] [id number] Aug, [facility] [id number] [place] [address] 01548- 0969 Aug, Diabetes E11.9 ; Chronic kidney disease, stage 3 N18.3 ; Hyperuricemia E79.0 ; Mixed hyperlipidemia E78.2 ; Gastroesophageal reflux disease, esophagitis presence not specified K21.9 ; Gout, unspecified M10.9 ; Coronary atherosclerosis of unspecified type of vessel, [place] or graft I25.10 and Mood disorder F39 [facility] [id number] [place] [address] 85784- 4796 June, [facility] [id number] [place] [address] 15281- 6415 June, [facility] [id number] [place] [address] 05765- 1375 June, [facility] [id number] [place] [address] 53659- 9447 May, Chronic renal failure, stage 3 (moderate) N18.3 [facility] [id number] [place] [address] 47365- 5795 May, Diabetes E11.9 [facility] [id number] [place] [address] 55269- 2394 May, [facility] [id number] [place] [address] 81968- 7208 Apr, [facility] [id number] [place] [address] 82657- 0145 Apr, [place] [id number] [place] [address] 98556- 8509 Apr, Cellulitis of right lower extremity L03.115 and Diabetes E11.9 [facility] [place] [id number] [place] [address] 74264- 3825 Apr, Type 2 diabetes mellitus with hyperglycemia E11.65 [facility] [id number] [place] [address] 59704- 1236 Mar, Cellulitis of right lower extremity L03.115 and Low back pain M54.5 [place] [address] 56749- 9154 Mar, [facility] [id number] [place] [address] 59455- 7981 Mar, Cellulitis of right lower extremity L03.115 [facility] [place] [id number] [place] [address] 53028- 8588 Mar, Cellulitis of right lower extremity L03.115 [facility] [id number] [place] [address] 68723- 8753 Feb, Cellulitis of right lower extremity L03.115 [facility] [place] [id number] [place] [address] 23322- 2496 Feb, Cellulitis of right lower extremity L03.115 [facility] [place] [id number] [place] [address] 08662- 9634 Feb, [facility] [id number] [place] [address] 67121- 3120 Feb, Leukocytosis, unspecified type D72.829 ; Chronic renal failure, stage 3 (moderate) N18.3 and Type 2 diabetes mellitus with hyperglycemia E11.65 [place] [address] [place] [address] 89648- 4015 Feb, Leukocytosis, unspecified type D72.829 [facility] [place] [id number] [place] [address] 71173- 4882 Feb, [facility] [address], [place] [address]- 5744 Feb, Cellulitis of right lower extremity L03.115 ; Thrush B37.0 ; Gout of left knee due to renal impairment, unspecified chronicity M10.362 and Chronic renal failure, stage 3 (moderate) N18.3 [facility] [id number] [place] [address] 23456- 7377 Feb, [facility] [place] [id number] [place] [address] 37071- 6156 Feb, Right foot infection L08.9 ; Type 2 diabetes mellitus with hyperglycemia E11.65 ; Arthralgia of left knee M25.562 ; Chronic kidney disease , stage 3 N18.3 and Diabetes E11.9 [place] [id number] [place] [address] 75807- 1770 Feb, [place] [id number] [place] [address] 75118- 1764 Feb, Diabetes E11.9 ; Arthralgia of left knee M25.562 and Thrush B37.0 [place] [id number] [place] [address] 03338- 4538 Jan, [place] [address] [place] [address] 72493- 3503 Jan, Type 2 diabetes mellitus with hyperglycemia E11.65 ; Chronic renal failure, stage 3 (moderate) N18.3 and Leukocytosis, unspecified type D72.829 [place] [address] [place] [address] 46068- 1000 Jan, Type 2 diabetes mellitus with hyperglycemia E11.65 [facility] [place] [address] [place] [address] 89826- 2776 Dec, Gout of left knee due to renal impairment, unspecified chronicity M10.362 [facility] [address] [place] [address] 11196- 8806 Dec, Gout of left knee due to renal impairment, unspecified chronicity M10.362 and Diabetes E11.9 [place] [id number] [place] [address] 34259- 9890 14 Dec, 2015 [facility] [id number] [place] [address] 31715- 5129 Dec, [facility] [address] 92656 -6060 Dec, [place] [address] 65630- 3661 Dec, Chronic kidney disease, stage 3 N18.3 ; Type 2 diabetes mellitus with diabetic nephropathy E11.21 ; Type 2 diabetes mellitus with hyperglycemia E11.65 and 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 [facility] IN [facility] [address] 53844 -5220 Dec, Leukocytosis, unspecified type D72.829 ; Chronic renal failure, stage 3 (moderate) N18.3 and Nausea R11.0 [place] [id number] [place] [address] 37257- 8838 Nov, [place] [id number] [place] [address] 45222- 9637 Jul, [place] [id number] [place] [address] 10707- 8547 Jul, Diabetes E11.9 ; Low back pain M54.5 and Other chronic pain G89.29 [place] [id number] [place] [address] 61740- 2186 June, [place] [address] 17718- 3749 June, [place] [id number] [place] [address] 13079- 3016 Jan, Viral illness B34.9 [place] [address] 50254- 3355 Jan, Type 2 diabetes mellitus with hyperglycemia E11.65 ; Pain in right foot M79.671 and Localized edema R60.0 [facility] [id number] [place] [address] 71065- 7671 Jan, [facility] [id number] [place] [address] 67481- 1619 Dec, Right foot pain M79.671 ; Insomnia, unspecified type G47.00 and Diabetes E11.9 [facility] [id number] [place] [address] 46422- 3231 Dec, Pain in right foot M79.671 [facility] [id number] [place] [address] 18972- 4897 Nov, [facility] [id number] [place] [address] 27668- 9028 Sep, [facility] [id number] [place] [address] 35420- 0868 Sep, Diabetes mellitus, type II 250.00 [facility] [id number] [place] [address] 61247- 7469 May, [facility] [id number] [place] [address] 33246- 6991 May, [facility] [id number] [place] [address] 86105- 1518 Apr, [facility] [id number] [place] [address] 99964- 6804 Apr, [facility] [id number] [place] [address] 48889- 2583 16 Apr, 2014 [facility] [id number] [place] [address] 25889- 5710 16 Apr, 2014 [facility] [id number] [place] [address] 28838- 6062 Apr, [facility] [place] [facility] [address] [id number] [place] [address]- 1107 12 Apr, 2014 [facility] [place] [facility] [address] [id number] [place] [address]- 4345 Apr, [facility] [place] [facility] [address] [id number] [place] [address]- 1622 05 Apr, 2014 [facility] [place] [facility] [address] [id number] [place] [address]- 5136 Jan, [facility] [place] [facility] [address] [id number] [place] [address]- 6520 18 Jan, 2014 [facility] [place] [facility] [address] [id number] [place] [address]- 9876 Jan, [facility] [place] [facility] [address] [id number] [place] [address]- 9132 Jan, [facility] [place] [facility] [address] [id number] [place] [address]- 6840 Dec, [facility] [place] [facility] [address] [id number] [place] [address]- 9386 Dec, [facility] [place] [facility] [address] [id number] [place] [address]- 9094 Nov, [facility] [place] [facility] [address] [id number] [place] [address]- 3601 Nov, [facility] [place] [facility] [address] [id number] [place] [address]- 2272 Oct, [facility] [place] [facility] [address] [id number] [place] [address]- 4104 Oct, [facility] [place] [facility] [address] [id number] [place] [address]- 7032 Oct, [facility] [place] [facility] [address] [id number] [place] [address]- 7036 05 Oct, 2013 [facility] [place] [facility] [address] [id number] [place] [address]- 5546 Sep, [facility] [place] [facility] [address] [id number] [place] [address]- 0810 Sep, [facility] [place] [facility] [address] [id number] [place] [address]- 3607 Sep, [facility] [place] [facility] [address] [id number] [place] [address]- 4029 Sep, [facility] [place] [facility] [address] [id number] [place] [address]- 4533 Sep, [facility] [place] [facility] [address] [id number] [place] [address]- 8885 Sep, [facility] [place] [facility] [address] [id number] [place] [address]- 1697 Sep, [facility] [place] [facility] [address] [id number] [place] [address]- 8537 Sep, [facility] [place] [facility] [address] [id number] [place] [address]- 8160 Sep, [facility] [place] [facility] [address] [id number] [place] [address]- 5233 Sep, [facility] [place] [facility] [address] [id number] [place] [address]- 5735 Sep, [facility] [place] [facility] [address] [id number] [place] [address]- 5186 Sep, [facility] [place] [facility] [address] [id number] [place] [address]- 1088 Aug, [facility] [place] [facility] [address] [id number] [place] [address]- 0283 Aug, [facility] [place] [facility] [address] [id number] [place] [address]- 5096 Aug, [facility] [place] [facility] [address] [id number] [place] [address]- 3975 Aug, [facility] [place] [facility] [address] [id number] [place] [address]- 2724 June, [facility] [address] [id number] [place] [address]- 6044 24 May, 2013 [facility] [place] [facility] [address] [id number] [place] [address]- 6015 24 May, 2013 [facility] [address] [id number] [place] [address]- 2341 21 May, 2013 [facility] [place] [facility] [address] [id number] [place] [address]- 8562 18 May, 2013 [facility] [address] [id number] [place] [address]- 0344 17 May, 2013 [facility] [place] [facility] [address] [id number] [place] [address]- 1722 17 May, 2013 [facility] [place] [facility] [address] [id number] [place] [address]- 0213 16 May, 2013 [facility] [address] [id number] [place] [address]- 4655 16 May, 2013 [facility] [place] [facility] [address] [id number] [place] [address]- 3396 14 May, 2013 [facility] [address] [id number] [place] [address]- 6322 14 May, 2013 [facility] [place] [facility] [address] [id number] [place] [address]- 8541 14 May, 2013 [facility] [place] [facility] [address] [id number] [place] [address]- 1644 14 May, 2013 [facility] [place] [facility] [address] [id number] [place] [address]- 6260 Apr, [facility] [place] [facility] [address] [id number] [place] [address]- 9961 Apr, [facility] [place] [facility] [address] [id number] [place] [address]- 6078 Mar, [facility] [place] [facility] [address] [id number] [place] [address]- 1864 Mar, [facility] [place] [facility] [address] [id number] [place] [address]- 6920 Dec, [facility] [place] [facility] [address] [id number] [place] [address]- 0017 Dec, [facility] [place] [facility] [address] [id number] [place] [address]- 0604 Dec, [facility] [place] [facility] [address] [id number] [place] [address]- 9696 Dec, [facility] [place] [facility] [address] [id number] [place] [address]- 6658 Nov, [facility] [place] [facility] [address] [id number] [place] [address]- 3858 Nov, [facility] [place] [facility] [address] [id number] [place] [address]- 8329 Oct, [facility] [place] [facility] [address] [id number] [place] [address]- 5589 Oct, [facility] [place] [facility] [address] [id number], [place] [address]- 9847 Aug, [facility] [place] [facility] [address] [id number], [place] [address]- 8395 Aug, [facility] [place] [facility] [address] [id number], [place] [address]- 7834 Aug, [facility] [place] [facility] [address] [id number] [place] [address]- 8081 Jul, [facility] [place] [facility] [address] [id number], [place] [address]- 1165 June, [facility] [place] [facility] [address] [id number], [place] [address]- 7360 June, [facility] [place] [facility] [address] [id number], [place] [address] Apr, [facility] [address] [id number] [place] [address] Mar, [facility] [place] [facility] [address] [id number] [place] [address] Mar, [facility] [address] [id number] [place] [address] Mar, [facility] [place] [facility] [address] [id number] [place] [address] Mar, [facility] [address] [id number] [place] [address] Mar, [facility] [address] [id number] [place] [address] Feb, [facility] [address] [id number] [place] [address] Feb, [facility] [address] [id number] [place] [address] Feb, [facility] [address] [id number] [place] [address] Feb, [facility] [address] [id number] [place] [address] Jan, [facility] [address] [id number] [place] [address] Jan, [facility] [place] [facility] [address] [id number] [place] [address] Dec, [facility] [place] [facility] [address] [id number] [place] [address] Dec, [facility] [place] [facility] [address] [id number] [place] [address] Dec, [facility] [place] [facility] [address] [id number] [place] [address] Dec, [facility] [place] [facility] [address] [id number] [place] [address] Oct, [facility] [address] [id number] [place] [address] Aug, [facility] [address] [id number] [place] [address] Jul, [facility] [address] [id number] [place] [address] June, [facility] [address] [id number] [place] [address] June, [facility] [address] [id number] [place] [address] June, [facility] [address] [id number] [place] [address] June, [facility] [address] [id number] [place] [address] June, [facility] [address] [id number] [place] [address] May, [facility] [address] [id number] [place] [address] May, [facility] [address] [id number] [place] [address] Apr, [facility] [place] [facility] [address] [id number], [place] [address] Apr, [facility] [place] [facility] [address] [id number] [place] [address] Mar, [facility] [place] [facility] [address] [id number] [place] [address] Feb, [facility] [place] [facility] [address] [id number] [place] [address] Nov, [facility] [place] [facility] [address] [id number], [place] [address] 13 Nov, 2010 [facility] [address] [id number] [place] [address] 13 Nov, 2010 [facility] [place] [facility] [address] [id number] [place] [address] 17 Apr, 2010 [facility] [address] [id number] [place] [address] 07 Jan, 2010 [facility] [place] [facility] [address] [id number] [place] [address]45 24 Dec, 2009 [facility] [place] [facility] [address] [id number] [place] [address] 11 Dec, 2009 [facility] [place] [facility] [address] [id number] [place] [address] 29 Nov, 2009 [facility] [address] [facility] [id number] [place] [address] June, [facility] [place] [facility] [address] [id number] [place] [address] 29 Jan, 2009 [facility] [place] [facility] [address] [id number] [place] [address] 28 Jan, 2009 [facility] [place] [facility] [address] [id number] [place] [address] 23 Jan, 2009 [facility] [place] [facility] [address] [id number] [place] [address] 22 Jan, 2009 [facility] [place] [facility] [address] [id number] [address] 16 Jan, 2009 [facility] [place] [facility] [address] [id number] [place] [address]46 15 Jan, 2009 [facility] [place] [facility] [address] [id number] [place] [address] 15 Jan, 2009 [facility] [place] [facility] [address] [id number] [place] [address] 254 11 Jan, 2009 [facility] [place] [facility] [address] [id number] [address] 11 Jan, 2009 [facility] [address], [place] [address] Jan, [facility] [address], [place] [address] Jan, [facility] [address], [place] [address] Jan, [facility] [address], [place] [address] Dec, [facility] [id number] [place] [address] Dec, [facility] [address], [place] [address] Dec, [facility] [address], [place] [address] Dec, [facility] [address], [place] [address] Nov, [facility] [address], [place] [address] Oct, IMMUNIZATIONS No Known Immunizations SOCIAL HISTORY Never Assessed REASON FOR VISIT Sample Request PLAN OF CARE VITAL SIGNS MEDICATIONS Medication Instructions Dosage Frequency Start Date End Date Duration Status BD Insulin Syringe Ultrafine 31G X 5/16" 0.5 ML as directed May, Active RESULTS No Results PROCEDURES No Known [...] type Medical History 11/2017 Nuclear stress test Aston JADE Medical History 11/2017 Swallow study Severe gastroparesis. [...] left knee pseudogout status post joint fluid analysis-[facility] 09/20/16 Hospitalization History kidneys--[facility] 11/2017
--- NOTE | 2018-01-17 17:16 | ED Lower Extremity ---
General Chief Complaint: Lower Extremity Stated Complaint: R KNEE PAIN Source: patient Exam Limitations: no limitations History of Present Illness Date Seen by Provider: Jan 17, 2018 Time Seen by Provider: 17:16 Allergies and Home Medications Allergies Coded Allergies: No Known Drug Allergies (Unverified , 09/15/08) Home Medications Aspirin 81 Mg Tablet.dr, 81 MG PO HS, (Reported) Atorvastatin Calcium 10 Mg Tablet, 10 MG PO HS, (Reported) Clopidogrel Bisulfate 75 Mg Tablet, 75 MG PO HS, (Reported) Colchicine 0.6 Mg Capsule, 0.6 MG PO DAILY Prescribed by: LESIA DEMARCO on 09/20/16 1250 Colchicine 0.6 Mg Capsule, 0.6 MG PO UD Prescribed by: ANGELIA CHAMORRO on 02/13/172119 Dulaglutide 0.75 Mg/0.5 Ml Pen.injctr, 0.75 MG SQ Fr, (Reported) Febuxostat 80 Mg Tablet, 80 MG PO HS, (Reported) Hydrocodone/Acetaminophen 1 Each Tablet, 1 EACH PO Q6H PRN for PAIN-MODERATE Prescribed by: BENJAMIN ANAND on 02/08/17 1736 Insulin Aspart 100 Unit/1 Ml Susp, 30 UNIT SQ AC, (Reported) Insulin Detemir 100 Unit/1 Ml Vial, 35 UNIT SQ BID, (Reported) Methylprednisolone 4 Mg Tab.ds.pk, 4 MG PO UD Prescribed by: ANGELIA CHAMORRO on 02/13/172119 Metoprolol Succinate 50 Mg Tab, 50 MG PO HS, (Reported) Omeprazole 40 Mg Capsule.dr, 40 MG PO HS, (Reported) Quetiapine Fumarate 50 Mg Tablet, 100-150 MG PO HS, (Reported) TAKES 2-3 (50 MG) TABLETS AT BEDTIME Past Zwxokoy-Umiwij-Lnmowb Hx Patient Social History Drug of Choice: THC Type Used: Cigarettes 2nd Hand Smoke Exposure: Yes Recent Foreign Travel: No Contact w/Someone Who Travel: No Recent Hopitalizations: Yes Immunizations Up To Date Tetanus Booster (TDap): Unknown PED Vaccines UTD: Yes Date of Influenza Vaccine: Dec 29, 2010 Seasonal Allergies Seasonal Allergies: No Past Medical History Surgeries: Yes Abdominal, Cardiac, Coronary Stent, Gallbladder, Renal Respiratory: No Cardiac: Yes (CARDIAC CATHS--STENTS X 2 --LAST CATH 08/04/16) Coronary Artery Disease, High Cholesterol, Hypertension Neurological: Yes (PERIPHERAL NEUROPATHY) Neuropathy Reproductive Disorders: No Sexually Transmitted Disease: No HIV/AIDS: No Genitourinary: Yes Kidney Stones, Renal Failure Gastrointestinal: Yes (S/P ASHLEY) Gastroesophageal Reflux, Gall Bladder Disease Musculoskeletal: Yes (CHRONIC KNEE PAIN, ANKLE PAIN, FOOT PAIN ; PSEUDO GOUT ) Gout Endocrine: Yes Diabetes, Insulin dep HEENT: No Cancer: No Psychosocial: Yes Anxiety Integumentary: Yes (MULTIPLE EPISODES OF CELLULITIS) Blood Disorders: No Adverse Reaction/Blood Tranf: No Family Medical History Chest pain 03 MOTHER Family history: Arthritis 03 MOTHER Family history: Diabetes mellitus 03 MOTHER 09 BROTHER Family history: Gastrointestinal disease 03 MOTHER 09 BROTHER Family history: Thyroid disorder 03 MOTHER Headache 03 MOTHER Hypercholesterolemia 03 FATHER 03 MOTHER 09 BROTHER Myocardial infarction 03 FATHER 03 MOTHER No Family History of: Abdominal aortic aneurysm Kane's disease Alcoholism Aphasia Cancer Cancer of colon Cataract Congenital heart disease Congestive heart failure Cystic fibrosis Dementia Dysphagia Family history: Allergy Family history: Alzheimer's disease Family history: Asthma Family history: Breast disease Family history: Cardiovascular disease Family history: Coronary thrombosis Family history: Glaucoma Family history: Hypertension Family history: Osteoporosis Hearing loss Heart disease Hereditary disease History of - anemia History of - disorder History of - respiratory disease History of drug abuse Human immunodeficiency virus (HIV) seropositivity Kidney disease Malignant neoplasm of lung Parkinson's disease Prostate cancer Psychotic disorder Seizure disorder Stroke Tuberculosis Visual impairment Physical Exam Vital Signs Vital Signs - First Documented 01/17/18 16:53 Temp 98.6 Pulse 84 Resp 18 B/P (MAP) 153/99 (117) Pulse Ox 94 O2 Delivery Room Air Capillary Refill : Height, Weight, BMI Height: 6'1.00" Weight: 290lbs. 0.0oz. 131.464924nw; 36.8 BMI Method:Stated Progress/Results/Core Measures Results/Orders My Orders Orders - ROLAND GOODEN Hydrocodone/Apap 7.5/325 Tab (Lortab 7. (01/17/18 17:15) Knee, Right, 3 Views (01/17/18 17:14) Medications Given in ED Current Medications Medications Dose Ordered Sig/Augusto Route Start Time Stop Time Status Last Admin Dose Admin Acetaminophen/ Hydrocodone Bitart 1 ea ONCE ONCE PO 01/17/18 17:15 01/17/18 17:16 DC 01/17/18 17:31 1 EA Vital Signs/I&O 01/17/18 16:53 Temp 98.6 Pulse 84 Resp 18 B/P (MAP) 153/99 (117) Pulse Ox 94 O2 Delivery Room Air Departure Impression Primary Impression: Chronic pain of right knee Additional Impression: Ellie-Schlatter's disease of right lower extremity Disposition: 01 HOME, SELF-CARE Condition: Stable/Unchanged Departure-Patient Inst. Decision time for Depature: 17:54 Referrals: [facility] (PCP) Primary Care Physician CHAPARRO MUJICA (Family) Primary Care Physician LEXY AVALOS MD Patient Instructions: Chronic Knee Pain (DC), [place]-Schlatter Disease (DC) Add. Discharge Instructions: Ice to the sore areas at 20 minute intervals. Tylenol as directed by the bottle for pain relief. Follow-up with [facility] within 1 week for recheck. Follow-up with an orthopedic surgeon to discuss options for your chronic knee pain. Return back to the emergency room for any worsening symptoms or concerns as needed. All discharge instructions reviewed with patient and/or family. Voiced understanding. ROLAND GOODEN Jan 17, 2018 17:16
[2018-01-17] MEDS: HYDROcodone/APAP 7.5 MG/325 MG (LORTAB, LORCET PLUS) TABLET PO ONE (17:31)
--- NOTE | 2018-01-17 17:45 | Diagnostic Imaging Report ---
INDICATION: Right knee pain and swelling COMPARISON: None. FINDINGS: Three views of the right knee demonstrate no fracture or dislocation. There is no joint effusion. There is chronic [place]-Schlatter's. Atherosclerosis is present. IMPRESSION: 1. No fracture or dislocation. 2. Atherosclerosis. 3. Chronic [place]-Schlatter's. Dictated by: Dictated on workstation # [id number]
[2018-01-17 18:20] VITALS: BP 168/89
== END 2018-01-17 18:20 | disposition home or self-care (01) ==
LOC: EDUNIT# 16:39 → ER 16:40
DX: M25.561 Pain in right knee (principal); G89.29 Other chronic pain; M92.51 Juvenile osteochondrosis of proximal tibia; I25.10 Atherosclerotic heart disease of native coronary artery without angina pectoris; E78.00 Pure hypercholesterolemia, unspecified; I10 Essential (primary) hypertension; K21.9 Gastro-esophageal reflux disease without esophagitis; E11.40 Type 2 diabetes mellitus with diabetic neuropathy, unspecified; F41.9 Anxiety disorder, unspecified; M10.9 Gout, unspecified; Z87.448 Personal history of other diseases of urinary system; Z87.442 Personal history of urinary calculi; Z82.49 Family history of ischemic heart disease and other diseases of the circulatory system; Z79.82 Long term (current) use of aspirin; Z79.02 Long term (current) use of antithrombotics/antiplatelets; Z79.4 Long term (current) use of insulin; Z77.22 Contact with and (suspected) exposure to environmental tobacco smoke (acute) (chronic); Z95.5 Presence of coronary angioplasty implant and graft; Z95.9 Presence of cardiac and vascular implant and graft, unspecified; Z79.52 Long term (current) use of systemic steroids
CPT/HCPCS: 73562

== ENCOUNTER → 2018-01-24 | Outpatient (CLI) | payer MEDICAID | LOC: CARD 12:50 | PROVIDERS: ATTEND Physician Assistant | DX: I25.10 Atherosclerotic heart disease of native coronary artery without angina pectoris (principal); I12.9 Hypertensive chronic kidney disease with stage 1 through stage 4 chronic kidney disease, or unspecified chronic kidney disease; N18.9 Chronic kidney disease, unspecified; E13.9 Other specified diabetes mellitus without complications; E78.2 Mixed hyperlipidemia; I08.3 Combined rheumatic disorders of mitral, aortic and tricuspid valves | CPT/HCPCS: 93306 ==

== ENCOUNTER → 2018-03-23 | Outpatient (CLI) | payer MEDICAID ==
[2018-03-23 14:21] LABS: HEMOGLOBIN 9.8 G/DL (13.3-17.7); RED BLOOD COUNT 3.76 10^6/uL (4.35-5.85); RED CELL DISTRIBUTION WIDTH 16.1 % (10.0-14.5)
[2018-03-23 14:53] LABS: ALBUMIN 3.5 GM/DL (3.2-4.5); CALCIUM 8.4 MG/DL (8.5-10.1); CREATININE SERUM 5.9 MG/DL (0.60-1.30); PHOSPHORUS 4.1 MG/DL (2.3-4.7); POTASSIUM 4.7 MMOL/L (3.6-5.0)
== END ==
LOC: LAB 13:47
PROVIDERS: ATTEND Internal Medicine Nephrology
DX: I12.9 Hypertensive chronic kidney disease with stage 1 through stage 4 chronic kidney disease, or unspecified chronic kidney disease (principal); E11.22 Type 2 diabetes mellitus with diabetic chronic kidney disease; N18.3 Chronic kidney disease, stage 3 (moderate); R80.9 Proteinuria, unspecified; N20.0 Calculus of kidney; N17.9 Acute kidney failure, unspecified; R60.9 Edema, unspecified
CPT/HCPCS: 36415; 80069; 84550; 85027

== ENCOUNTER 2018-06-12 13:33 | Emergency (ER) | payer MEDICAID ==
[~2018-06-12] VITALS: Ht 185.4 cm; Wt 129.3 kg
--- OUTSIDE RECORDS SUMMARY | 2018-06-12 13:37 | XMS REPORT | Encounter Summary ---
Author Author [facility] Organization [facility] Address Unknown Phone Unavailable Care Team Providers Care Plywood Scarfer Tender Name Role Phone Heidy Beltran APRN PCP Brandon Valadez MD Unavailable Reason for Visit * Reason Comments Transplant Referral Attempt to schedule #1 Encounter Details Care Team Description Date Type Department Zahra De La Torre Transplant Referral (Attempt to schedule #1) 05/04/2018 Telephone [facility] [address] [address] Social History Date Tobacco Use Types Packs/Day Years Used Never Assessed Sex Assigned at Date Recorded Not on file Industry Job Start Date Occupation Not on file Not on file Not on file Travel End Travel History Travel Start No recent travel history available. documented as of this encounter Plan of Treatment Not on filedocumented as of this encounter Visit Diagnoses Not on filedocumented in this encounter
--- OUTSIDE RECORDS SUMMARY | 2018-06-12 13:37 | XMS REPORT | Encounter Summary ---
Author Author [facility] Organization [facility] Address Unknown Phone Unavailable Care Team Providers Care Food Prep Worker Name Role Phone Heidy Beltran APRN PCP Brandon Valadez MD Unavailable Reason for Visit * Reason Comments Transplant Referral Attempt to schedule #3 Encounter Details Care Team Description Date Type Department Zahra De La Torre Transplant Referral (Attempt to schedule #3) 05/17/2018 Telephone [facility] [address] [address] Social History Date Tobacco Use [...]
--- OUTSIDE RECORDS SUMMARY | 2018-06-12 13:37 | XMS REPORT | Encounter Summary ---
Author Author [facility] Address Unknown Phone Unavailable Care Team Providers Care Gambling Supervisor Name Role Phone Heidy Beltran APRN PCP Brandon Valadez MD Unavailable Reason for Visit * Reason Comments Transplant Referral Attempt to schedule #2 Encounter Details Care Team Description Date Type Department Zahra De La Torre Transplant Referral (Attempt to schedule #2) 05/05/2018 Telephone [facility] [address] [address] Social History Date Tobacco Use [...]
--- OUTSIDE RECORDS SUMMARY | 2018-06-12 13:37 | XMS REPORT | Clinical Summary ---
Author Author [facility] Organization [facility] Address Unknown Phone Unavailable Care Team Providers Care Paint Formulator Name Role Phone Heidy Beltran APRN PCP Brandon Valadez MD Unavailable Source Comments Some departments are not documenting in the electronic medical record. If you do not see the information that you expected, contact Release of Information in the Health Information Management department at [phone] for further assistance in locating additional records.[facility] Allergies Not on File Medications Not on file Active Problems Not on file Encounters Care Team Description Date Type Specialty Irene Vega Financial/Insurance Questions (Authorization for Kidney Eval) 06/12/2018 Telephone Transplant Surgery oMra Lebron, RN 05/26/2018 Orders Only Transplant Surgery Mora Lebron, RN Pre-transplant evaluation for end stage renal disease ( Primary Dx) 05/22/2018 Orders Only Transplant Surgery Zahra De La Torre Transplant Referral (Scheduled New K Eval ) 05/22/2018 Telephone Transplant Surgery Zahra De La Torre Transplant Referral (Attempt to schedule #3) 05/17/2018 Telephone Transplant Surgery Zahra De La Torre Transplant Referral (Attempt to schedule #2) 05/05/2018 Telephone Transplant Surgery Zahra De La Torre Transplant Referral (Attempt to schedule #1) 05/04/2018 Telephone Transplant Surgery Irene Vega Financial/Insurance Questions (INSURANCE) 04/19/2018 Telephone Transplant Surgery Irene Vega Financial/Insurance Questions (Benefit Collection for 2019) 04/19/2018 Telephone Transplant Surgery Zahra De La Torre Transplant Referral (Intake Interview ) 04/04/2018 Telephone Transplant Surgery from Last 3 Months Social History Date Tobacco Use Types Packs/Day Years Used Never Assessed Sex Assigned at Date Recorded Not on file Industry Job Start Date Occupation Not on file Not on file Not on file Travel End Travel History Travel Start No recent travel history available. Last Filed Vital Signs Not on file Plan of Treatment Health Maintenance Due Date Last Done Comments PHYSICAL (COMPREHENSIVE) 08/06/1974 EXAM HIV SCREENING 08/06/1982 DTAP/TDAP VACCINES (1 - 08/06/1985 Tdap) COLORECTAL CANCER 08/06/2017 SCREENING SHINGLES RECOMBINANT 08/06/2017 VACCINE (1 of 2) INFLUENZA VACCINE 09/28/2018 Results Not on filefrom Last 3 Months Insurance Type Payer Benefit Subscriber ID Effective Phone Address Plan / Dates Group Medicaid [facility] xxxxxxxxxxx [id number] COMMUNITY [place] PLAN [place] Advance Directives Patient has advance care planning documents on file. For more information, please contact: [facility] [address] [place] [address]
--- OUTSIDE RECORDS SUMMARY | 2018-06-12 13:37 | XMS REPORT | Encounter Summary ---
Author Author [facility] Organization [facility] Address Unknown Phone Unavailable Care Team Providers Care Freight Rate Clerk Name Role Phone Heidy Beltran APRN PCP Brandon Valadez MD Unavailable Reason for Visit * Reason Comments Financial/Insurance Authorization for Kidney Eval Questions Encounter Details Care Team Description Date Type Department Irene Vega Financial/Insurance Questions (Authorization for Kidney Eval) 06/12/[address]phone [address] [id number] Social History Date Tobacco Use Types Packs/Day Years Used Never Assessed Sex Assigned at Date Recorded Not on file Industry Job Start Date Occupation Not on file Not on file Not on file Travel End Travel History Travel Start No recent travel history available. documented as of this encounter Miscellaneous Notes * Telephone Encounter - Irene Vega - 06/12/2018 7:28 AM CDT TRANSPLANT AUTHORIZATION PLAN [employer] [facility] AUTHORIZATION Phase 1 Evaluation NCM: Eva Thomas Phone #: [phone] FAX #:[phone] Faxed a request for Kidney Transplant Eval along with clinicals. Fax confirmation received. MM 06/12/18 documented in this encounter Plan of Treatment Not on filedocumented as of this encounter Visit Diagnoses Not on filedocumented in this encounter
--- OUTSIDE RECORDS SUMMARY | 2018-06-12 13:37 | XMS REPORT | Encounter Summary ---
Author Author [facility] Organization [facility] Address Unknown Phone Unavailable Care Team Providers Care Medical Asst Name Role Phone Heidy Beltran APRN PCP Brandon Valadez MD Unavailable Reason for Referral * Radiology Services (Routine) Referred By Contact Referred To Contact Status Reason Specialty Diagnoses / Procedures Jeremias Becerra MD [address] [address] No Auth Needed Radiology Diagnoses Pre-transplant evaluation for end stage renal disease P rocedures CT ABD/PELV WO CONTRAST Encounter Details Care Team Description Date Type Department Mora Lebron RN Pre-transplant evaluation for end stage renal disease ( Primary Dx) 05/22/2018 Orders Only [facility] [address] [address] Social History Date Tobacco Use Types Packs/Day Years Used Never Assessed Sex Assigned at Date Recorded Not on file Industry Job Start Date Occupation Not on file Not on file Not on file Travel End Travel History Travel Start No recent travel history available. documented as of this encounter Plan of Treatment Order Schedule Name Priority Associated Diagnoses Expected: 05/30/2018 (Approximate), Expires: 05/22/2019 CT ABD/PELV WO CONTRAST Routine Pre-transplant evaluation for end stage renal disease documented as of this encounter Visit Diagnoses Diagnosis Pre-transplant evaluation for end stage renal disease - Primary Other specified pre-operative examination documented in this encounter
--- OUTSIDE RECORDS SUMMARY | 2018-06-12 13:37 | XMS REPORT | Encounter Summary ---
Author Author [facility] Organization [facility] Address Unknown Phone Unavailable Care Team Providers Care Call Center Nurse Name Role Phone Heidy Beltran APRN PCP Brandon Valadez MD Unavailable Encounter Details Care Team Description Date Type Department Mora Lebron, RN 05/26/2018 Orders Only The [facility] [address] [id number] Social History Date Tobacco Use Types Packs/Day [...]
--- OUTSIDE RECORDS SUMMARY | 2018-06-12 13:37 | XMS REPORT | Encounter Summary ---
Author Author [facility] Organization [facility] Address Unknown Phone Unavailable Care Team Providers Care Clinical Molecular Geneticist Name Role Phone Heidy Beltran APRN PCP Brandon Valadez MD Unavailable Reason for Visit * Reason Comments Transplant Referral Scheduled New K Eval Encounter Details Care Team Description Date Type Department Zahra De La Torre Transplant Referral (Scheduled New K Eval ) 05/22/2018 Telephone The [facility] [address] [address] Social History Date Tobacco Use [...]
--- OUTSIDE RECORDS SUMMARY | 2018-06-12 13:38 | XMS REPORT | Encounter Summary ---
Author Author [facility] Organization [facility] Address Unknown Phone Unavailable Care Team Providers Care Content Assistant Name Role Phone Heidy Beltran APRN PCP Brandon Valadez MD Unavailable Reason for Visit * Reason Comments Financial/Insurance INSURANCE Questions Encounter Details Care Team Description Date Type Department Irene Vega Financial/Insurance Questions (INSURANCE) 04/19/2018 Telephone The [address] [phone] Social History Date Tobacco Use Types Packs/Day Years Used Never Assessed Sex Assigned at Date Recorded Not on file Industry Job Start Date Occupation Not on file Not on file Not on file Travel End Travel History Travel Start No recent travel history available. documented as of this encounter Miscellaneous Notes * Telephone Encounter - Irene Vega - 04/19/2018 11:12 AM VISUAL DESIGNER INSURANCE [facility] [employer] Benefits verified/ appropriate for evaluation with [facility]. Auth required prior to evaluation and auth required to activate when primary. NO AUTH REQUIRED WHEN 2ND PAYER TO ANY OTHER INSURANCE Please advised TFA of eval date in order for me to obtain eval Auth. AL DESIGNER documented in this encounter Plan of Treatment Not on filedocumented as of this encounter Visit Diagnoses Not on filedocumented in this encounter
--- OUTSIDE RECORDS SUMMARY | 2018-06-12 13:38 | XMS REPORT ---
Author Author CHAPARRO MUJICA Organization [facility] Address [address] [place] [address] Care Team Providers Care Stave Cutting Supervisor Name Role Phone CHAPARRO MUJICA Unavailable PROBLEMS Type Condition ICD9-CM Code ITZ13-EV Code Onset Dates Condition Status SNOMED Code Problem Primary osteoarthritis of left knee M17.12 Active [id number] Problem Chronic kidney disease, stage V (very severe) N18.5 Active 357538721 Problem Essential hypertension I10 Active 78600254 Problem Diabetes mellitus E11.9 Active 09749116 Problem Insomnia, unspecified G47.00 Active 321446878 Problem Proteinuria R80.9 Active 23988310 Problem Gout, unspecified M10.9 Active 11515759 Problem Hypertriglyceridemia E78.1 Active 898041279 Problem Kidney stone N20.0 Active 71797340 Problem Delayed gastric emptying K30 Active 861616078 Problem Acute kidney failure, unspecified N17.9 Active 41229632 Problem Edema R60.9 Active 89475011 Problem 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 Active 476432687 Problem Chronic kidney disease, stage 3 N18.3 Active 848610519 Problem Gastroesophageal reflux disease, esophagitis presence not specified K21.9 Active 592264430 Problem Coronary atherosclerosis of unspecified type of vessel, [place] or graft I25.10 Active 420426880 Problem Mixed hyperlipidemia E78.2 Active 431292416 Problem Mood disorder F39 Active 42261442 Problem Type 2 diabetes mellitus with hyperglycemia E11.65 Active 367379641260229 Problem Pseudogout M11.20 Active 040532339 Problem 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 431674648 Problem Gout of left knee due to renal impairment, unspecified chronicity M10.362 Active 706986348 ALLERGIES No Information ENCOUNTERS Encounter Location Date Diagnosis [facility] [address] [facility] [id number] [address] Jan, [place] [address] [place] [id number] [place] [address] 90060- 6784 Dec, Chronic kidney disease, stage 3 N18.3 ; Proteinuria R80.9 ; Diabetes mellitus E11.9 ; Acute kidney failure, unspecified N17.9 and Mixed hyperlipidemia E78.2 [place] [address] 78245- 0742 Dec, Chronic kidney disease, stage 3 N18.3 ; Essential hypertension I10 ; Proteinuria R80.9 ; Diabetes mellitus E11.9 ; Kidney stone N20.0 ; Acute kidney failure, unspecified N17.9 ; Edema R60.9 and Mixed hyperlipidemia E78.2 [place] [address] 85257- 3002 Dec, [place] [address] 81968- 5563 Dec, Chronic kidney disease, stage 3 N18.3 [place] [address] 25006- 8812 Dec, Type 2 diabetes mellitus with hyperglycemia E11.65 [place] [address] 67808- 1439 Dec, [place] [address] 78133- 2976 Nov, Type 2 diabetes mellitus with hyperglycemia E11.65 [place] [address] 18204- 6283 Nov, [place] [address] 48446- 3337 Nov, Chronic kidney disease, stage V (very severe) N18.5 ; Type 2 diabetes mellitus with hyperglycemia E11.65 ; Encounter for immunization Z23 and Delayed gastric emptying K30 [place] [address] 87244- 0623 Nov, [place] [address] 59404- 4774 Oct, Essential hypertension I10 ; Coronary atherosclerosis of unspecified type of vessel, [place] tribe or graft I25.10 ; Type 2 diabetes mellitus with hyperglycemia E11.65 and Gout, unspecified M10.9 [place] [address] [address] [id number] [place] [address] 54698- 2641 Oct, Chronic kidney disease, stage V (very severe) N18.5 [place] [address] [address] [id number] [place] [address] 77405- 2130 Oct, Mixed hyperlipidemia E78.2 [place] [address] [address] [id number] [place] [address] 17466- 8147 Sep, Type 2 diabetes mellitus with hyperglycemia E11.65 [place] [address] [place] [address] [id number] [place] [address] 73746- 4722 Sep, Mixed hyperlipidemia E78.2 [place] [address] [id number] [place] [address] 85971- 2931 Sep, Chronic kidney disease, stage V (very severe) N18.5 [place] [address] [address] [id number] [place] [address] 54454- 1220 Sep, Type 2 diabetes mellitus with hyperglycemia E11.65 and Essential hypertension I10 [place] [address] [place] [address] [id number] [place] [address] 09904- 5611 Sep, Type 2 diabetes mellitus with hyperglycemia E11.65 [place] [address] [address] [id number] [place] [address] 28526- 1248 Aug, Gout, unspecified M10.9 ; Gastroesophageal reflux disease, esophagitis presence not specified K21.9 ; Mood disorder F39 and Coronary atherosclerosis of unspecified type of vessel, [place] or graft I25.10 [place] [address] [address] [id number] [place] [address] 59628- 8849 Aug, [place] [address] [address] [id number] [place] [address] 59126- 8150 June, Type 2 diabetes mellitus with hyperglycemia E11.65 [place] [address] [place] [address] 33421- 6013 May, Mood disorder F39 ; Gastroesophageal reflux disease, esophagitis presence not specified K21.9 ; Gout, unspecified M10.9 ; Coronary atherosclerosis of unspecified type of vessel, [place] tribe or graft I25.10 and Type 2 diabetes mellitus with hyperglycemia E11.65 [place] [address] [place] [address] [id number] [place] [address] 87027- 5992 May, Type 2 diabetes mellitus with hyperglycemia E11.65 [place] [address] [address] [id number] [place] [address] 12692- 9046 Apr, Diabetes E11.9 and Mood disorder F39 [place] [address] [address] [id number] [place] [address] 46680- 0309 15 Mar, 2017 Primary osteoarthritis of left knee M17.12 and Tear of lateral meniscus of left knee, unspecified tear type, unspecified whether old or current tear, initial encounter S83.282A [place] [address] [address] [id number] [place] [address] 25387- 2266 Feb, Mood disorder F39 [place] [address] [address] [id number] [place] [address] 27292- 6941 Feb, Pseudogout M11.20 [place] [address] [place] [address] 97214- 4086 Jan, Other buttermaker continuous churn (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 [facility] [address] [place] [address] 31184 -2261 Jan, [facility] [address] [place] [id number] [place] [address] 49096- 8899 Jan, Pseudogout M11.20 ; Type 2 diabetes mellitus with hyperglycemia E11.65 and Other buttermaker continuous churn (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 [facility] [address] [place] [address] 71492- 3293 Jan, Gout of left knee due to renal impairment, unspecified chronicity M10.362 ; Type 2 diabetes mellitus with diabetic nephropathy E11.21 ; Synovial cyst of popliteal space [Mejia], left knee M71.22 and Low back pain M54.5 [place] [address] 62198- 0077 Dec, Pseudogout M11.20 [place] [address] 45114- 3866 Dec, [place] [address] 49651- 3943 Dec, Type 2 diabetes mellitus with diabetic nephropathy E11.21 and Right anterior knee pain M25.561 [place] [address] 77448- 5107 Nov, Pseudogout M11.20 [place] [address] 69621- 9627 Nov, Pseudogout M11.20 ; Chronic kidney disease, stage 3 N18.3 ; Mixed hyperlipidemia E78.2 ; Gout, unspecified M10.9 ; Coronary atherosclerosis of unspecified type of vessel, um[place] tribe or graft I25.10 ; Mood disorder F39 and Gastroesophageal reflux disease, esophagitis presence not specified K21.9 [place] [address] [place] [id number] [place] [address] 80914- 8531 Nov, [place] [address] [address] [id number] [place] [address] 58567- 8644 Oct, Pseudogout M11.20 [place] [address] [place] [id number] [place] [address] 83747- 4697 Sep, Pseudogout M11.20 [place] [address] 82864- 6481 Sep, Pseudogout M11.20 [place] [address] [place] [id number] [place] [address] 14685- 1459 Sep, [place] [address] [id number] Aug, [facility] [address] [place] [address] 46622- 5568 Aug, Diabetes E11.9 ; Chronic kidney disease, stage 3 N18.3 ; Hyperuricemia E79.0 ; Mixed hyperlipidemia E78.2 ; Gastroesophageal reflux disease, esophagitis presence not specified K21.9 ; Gout, unspecified M10.9 ; Coronary atherosclerosis of unspecified type of vessel, [place] tribe or graft I25.10 and Mood disorder F39 [facility] [address] [id number] [address] 2987 June, [place] [address] [place] [id number] [place] [address] 64457- 1078 June, [place] [address] [place] [id number] [place] [address] 21118- 6026 June, [place] [address] [place] [id number] [place] [address] 43412- 2154 May, Chronic renal failure, stage 3 (moderate) N18.3 [place] [address] [address] [id number] [place] [address] 05248- 2799 May, Diabetes E11.9 [place] [address] [address] 4213 May, [place] [address] [address] 7672 Apr, [facility] [id number] [place] [address] 73971- 1331 Apr, [facility] [address] [place] [address] 43453- 6396 Apr, Cellulitis of right lower extremity L03.115 and Diabetes E11.9 [facility] [address] [address]- 2333 Apr, Type 2 diabetes mellitus with hyperglycemia E11.65 [place] [address] [place] [id number] [place] [address] 80513- 4039 Mar, Cellulitis of right lower extremity L03.115 and Low back pain M54.5 [place] [address] [place] [address] 91910- 7107 Mar, [place] [address] [place] [address] 96584- 5621 Mar, Cellulitis of right lower extremity L03.115 [place] [address] [place] [address] 58230- 9399 Mar, Cellulitis of right lower extremity L03.115 [place] [address] [place] [id number] [place] [address] 20432- 4281 Feb, Cellulitis of right lower extremity L03.115 [place] [address] [place] [id number] [place] [address] 08635- 8923 Feb, Cellulitis of right lower extremity L03.115 [place] [address] [place] [address] 53730- 1456 Feb, [place] [address] [place] [address] 88737- 7229 Feb, Leukocytosis, unspecified type D72.829 ; Chronic renal failure, stage 3 (moderate) N18.3 and Type 2 diabetes mellitus with hyperglycemia E11.65 [place] [address] [place] [address] 36958- 4934 Feb, Leukocytosis, unspecified type D72.829 [place] [address] [place] [address] 00205- 2163 Feb, [place] [address] [place] [address] 67829- 6630 Feb, Cellulitis of right lower extremity L03.115 ; Thrush B37.0 ; Gout of left knee due to renal impairment, unspecified chronicity M10.362 and Chronic renal failure, stage 3 (moderate) N18.3 [place] [address] [place] [id number] [place] [address] 28382- 2253 Feb, [place] [address] [place] [id number] [place] [address] 42959- 3737 Feb, Right foot infection L08.9 ; Type 2 diabetes mellitus with hyperglycemia E11.65 ; Arthralgia of left knee M25.562 ; Chronic kidney disease , stage 3 N18.3 and Diabetes E11.9 [place] [address] [place] [id number] [place] [address] 70751- 6758 Feb, [place] [address] [place] [id number] [place] [address] 64823- 9223 Feb, Diabetes E11.9 ; Arthralgia of left knee M25.562 and Thrush B37.0 [place] [address] [place] [id number] [place] [address] 93831- 5396 Jan, [place] [address] [place] [id number] [place] [address] 20064- 7394 Jan, Type 2 diabetes mellitus with hyperglycemia E11.65 ; Chronic renal failure, stage 3 (moderate) N18.3 and Leukocytosis, unspecified type D72.829 [place] [address] [place] [id number] [place] [address] 04508- 4921 Jan, Type 2 diabetes mellitus with hyperglycemia E11.65 [place] [address] [place] [address] 31224- 4381 Dec, Gout of left knee due to renal impairment, unspecified chronicity M10.362 [place] [address] [place] [address] 99442- 2221 Dec, Gout of left knee due to renal impairment, unspecified chronicity M10.362 and Diabetes E11.9 [place] [address] [place] [address] 26668- 9804 Dec, [place] [address] [place] [address] 98290- 7570 Dec, [facility] [id number] [place] [address] 39100 -9352 Dec, [place] [address] 85130- 9713 Dec, Chronic kidney disease, stage 3 N18.3 ; Type 2 diabetes mellitus with diabetic nephropathy E11.21 ; Type 2 diabetes mellitus with hyperglycemia E11.65 and group home 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 [facility] [address] 93923 -9495 Dec, Leukocytosis, unspecified type D72.829 ; Chronic renal failure, stage 3 (moderate) N18.3 and Nausea R11.0 [place] [address] 68200- 7426 Nov, [place] [address] 31548- 5393 Jul, [place] [address] 21474- 1288 Jul, Diabetes E11.9 ; Low back pain M54.5 and Other chronic pain G89.29 [place] [address] 51389- 3976 June, [place] [address] [place] [id number] [place] [address] 83132- 3449 June, [place] [address] 39194- 0176 Jan, Viral illness B34.9 [place] [address] [place] [id number] [place] [address] 85587- 2170 Jan, Type 2 diabetes mellitus with hyperglycemia E11.65 ; Pain in right foot M79.671 and Localized edema R60.0 [facility] [address] [id number] [place] [address] 59259- 7215 Jan, [place] [address] 16521- 6057 Dec, Right foot pain M79.671 ; Insomnia, unspecified type G47.00 and Diabetes E11.9 [facility] [address] [place] [id number] [place] [address] 17080- 5510 Dec, Pain in right foot M79.671 [facility] [address] [id number] [place] [address] 51438- 4649 Nov, [facility] [address] 24176- 0193 Sep, [facility] [address] [id number] [place] [address] 37046- 1267 Sep, Diabetes mellitus, type II 250.00 [facility] [address] [id number] [place] [address] 76553- 8692 May, [facility] [id number] [place] [address] 05862- 2945 May, [facility] [id number] [place] [address] 58560- 6425 Apr, [facility] [id number] [place] [address] 09158- 0430 Apr, [facility] [id number] [place] [address] 32979- 7671 Apr, [facility] [id number] [place] [address] 72793- 1461 Apr, [facility] [id number] [place] [address] 56277- 4060 Apr, [facility] [id number] [place] [address] 65295- 2609 Apr, [facility] [id number] [place] [address] 98171- 1561 Apr, [facility] [id number] [place] [address] 24267- 9720 Apr, [facility] [place] [facility] [address] [facility] [id number] [place] [address]- 8458 18 Jan, 2014 [facility] [place] [facility] [address] [id number] [place] [address]- 4472 18 Jan, 2014 [facility] [place] [facility] [address] [id number] [place] [address]- 4727 15 Jan, 2014 [facility] [place] [facility] [address] [id number] [place] [address]- 7489 15 Jan, 2014 [facility] [place] [facility] [address] [id number] [place] [address]- 0396 Dec, [facility] [place] [facility] [address] [id number] [place] [address]- 7881 Dec, [facility] [place] [facility] [address] [id number] [place] [address]- 2780 Nov, [facility] [place] [facility] [address] [id number] [place] [address]- 2019 Nov, [facility] [place] [facility] [address] [id number] [place] [address]- 8582 Oct, [facility] [place] [facility] [address] [id number] [place] [address]- 1785 Oct, [facility] [place] [facility] [address] [id number] [place] [address]- 5437 05 Oct, 2013 [facility] [place] [facility] [address] [id number] [place] [address]- 3859 05 Oct, 2013 [facility] [place] [facility] [address] [id number] [place] [address]- 4569 Sep, [facility] [place] [facility] [address] [id number] [place] [address]- 8858 Sep, [facility] [place] [facility] [address] [id number] [place] [address]- 4354 Sep, [facility] [place] [facility] [address] [id number] [place] [address]- 9913 Sep, [facility] [place] [facility] [address] [id number] [place] [address]- 0957 Sep, [facility] [place] [facility] [address] [id number] [place] [address]- 2927 Sep, [facility] [place] [facility] [address] [id number] [place] [address]- 4669 Sep, [facility] [place] [facility] [address] [id number] [place] [address]- 5281 Sep, [facility] [place] [facility] [address] [id number] [place] [address]- 6280 Sep, [facility] [place] [facility] [address] [id number] [place] [address]- 5288 Sep, [facility] [place] [facility] [address] [id number] [place] [address]- 6415 Sep, [facility] [place] [facility] [address] [id number] [place] [address]- 1606 Sep, [facility] [place] [facility] [address] [id number] [place] [address]- 6430 Aug, [facility] [place] [facility] [address] [id number] [place] [address]- 7229 Aug, [facility] [place] [facility] [address] [id number] [place] [address]- 4597 Aug, [facility] [place] [facility] [address] [id number] [place] [address]- 8269 Aug, [facility] [place] [facility] [address] [id number] [place] [address]- 8477 June, [facility] [place] [facility] [address] [id number] [place] [address]- 0796 May, [facility] [place] [facility] [address] [id number] [place] [address]- 8801 May, [facility] [place] [facility] [address] [id number] [place] [address]- 9136 21 May, 2013 [facility] [place] [facility] [address] [id number] [place] [address]- 3837 18 May, 2013 [facility] [place] [facility] [address] [id number] [place] [address]- 1858 17 May, 2013 [facility] [place] [facility] [address] [id number] [place] [address]- 3014 17 May, 2013 [facility] [place] [facility] [address] [id number] [place] [address]- 9059 16 May, 2013 [facility] [place] [facility] [address] [id number] [place] [address]- 0732 16 May, 2013 [facility] [place] [facility] [address] [id number] [place] [address]- 4047 14 May, 2013 [facility] [place] [facility] [address] [id number] [place] [address]- 4790 May, [facility] [place] [facility] [address] [id number] [place] [address]- 3913 14 May, 2013 [facility] [place] [facility] [address] [id number] [place] [address]- 4141 May, [facility] [place] [facility] [address] [id number] [place] [address]- 5411 Apr, [facility] [place] [facility] [address] [id number] [place] [address]- 1215 Apr, [facility] [place] [facility] [address] [id number] [place] [address]- 2555 Mar, [facility] [place] [facility] [address] [id number] [place] [address]- 7692 Mar, [facility] [place] [facility] [address] [id number] [place] [address]- 7352 Dec, [facility] [place] [facility] [address] [id number] [place] [address]- 7667 Dec, [facility] [place] [facility] [address] [id number] [place] [address]- 0153 Dec, [facility] [place] [facility] [address] [id number] [place] [address]- 2149 Dec, [facility] [place] [facility] [address] [id number] [place] [address]- 1297 Nov, [facility] [place] [facility] [address] [id number] [place] [address]- 9183 Nov, [facility] [place] [facility] [address] [id number] [place] [address]- 6793 Oct, [facility] [place] [facility] [address] [id number] [place] [address]- 9137 Oct, [facility] [address] [id number] [place] [address]- 3466 Aug, [facility] [place] [facility] [address] [id number] [place] [address]- 3695 Aug, [facility] [place] [facility] [address] [id number] [place] [address]- 7802 Aug, [facility] [place] [facility] [address] [facility] [id number] [place] [address]- 8276 Jul, [facility] [place] [facility] [address] [id number] [place] [address]- 4969 June, [facility] [place] [facility] [address] [id number] [address]- 2546 June, [facility] [place] [facility] [address] [id number] [place] [address]- 8240 Apr, [facility] [place] [facility] [address] [id number] [place] [address]- 6946 Mar, [facility] [place] [facility] [address] [id number] [place] [address]- 9436 Mar, [facility] [place] [facility] [address] [id number], [place] [address]- 6559 Mar, [facility] [address] [id number] [place] [address]- 3607 Mar, [facility] [place] [facility] [address] [id number] [place] [address]- 5113 Mar, [facility] [address] [id number] [place] [address] Feb, [facility] [place] [facility] [address] [id number] [place] [address] Feb, [facility] [address] [id number] [place] [address] Feb, [facility] [address] [id number] [place] [address] Feb, [facility] [address] [facility] [id number] [place] [address] Jan, [facility] [address] [id number] [place] [address] Jan, [facility] [address] [id number] [place] [address] Dec, [facility] [address] [facility] [id number] [place] [address] Dec, [facility] [address] [id number] [place] [address] Dec, [facility] [place] [facility] [address] [id number], [place] [address] Dec, [facility] [place] [facility] [address] [id number] [place] [address] Oct, [facility] [place] [facility] [address] [id number] [place] [address] Aug, [facility] [place] [facility] [address] [id number], [place] [address] Jul, [facility] [place] [facility] [address] [id number] [place] [address] June, [facility] [place] [facility] [address] [id number] [place] [address] June, [facility] [place] [facility] [address] [id number] [place] [address] June, [facility] [place] [facility] [address] [id number] [place] [address] June, [facility] [place] [facility] [address] [id number] [place] [address] June, [facility] [place] [facility] [address] [id number] [place] [address] May, [facility] [place] [facility] [address] [id number] [place] [address] May, [facility] [place] [facility] [address] [id number] [place] [address] Apr, [facility] [place] [facility] [address] [id number] [place] [address] Apr, [facility] [place] [facility] [address] [id number] [place] [address] Mar, [facility] [place] [facility] [address] [id number] [place] [address] Feb, [facility] [place] [facility] [address] [id number] [place] [address] Nov, [facility] [place] [facility] [address] [id number] [place] [address] Nov, [facility] [place] [facility] [address] [id number] [place] [address] Nov, [facility] [place] [facility] [address] [id number] [place] [address] 17 Apr, 2010 [facility] [place] [facility] [address] [id number] [place] [address] 07 Jan, 2010 [facility] [address] [id number] [place] [address] 24 Dec, 2009 [facility] [address] [id number] [place] [address] 11 Dec, 2009 [facility] [address] [facility] [id number] [place] [address] 29 Nov, 2009 [facility] [place] [facility] [address] [id number] [place] [address] June, [facility] [address] [id number] [place] [address] 29 Jan, 2009 [facility] [address] [id number] [place] [address] 28 Jan, 2009 [facility] [address] [id number] [place] [address] 23 Jan, 2009 [facility] [place] [facility] [address] [id number], [place] [address] 22 Jan, 2009 [facility] [address] [id number], [place] [address] 16 Jan, 2009 [facility] [place] [facility] [address] [facility] [id number], [place] [address] 15 Jan, 2009 [facility] [place] [facility] [address] [id number], [place] [address] 15 Jan, 2009 [facility] [place] [facility] [address] [id number], [place] [address] 11 Jan, 2009 [facility] [place] [facility] [address] [id number] [place] [address] 11 Jan, 2009 [facility] [place] [facility] [address] [facility] [id number], [place] [address] 10 Jan, 2009 [facility] [place] [facility] [address] [facility] [id number], [place] [address] 04 Jan, 2009 [facility] [place] [facility] [address] [id number] [address] Jan, [facility] [address] [id number], [place] [address] Dec, [facility] [address] [id number], [place] [address] Dec, [facility] [address] [id number] [address] Dec, [facility] [address] [id number], [place] [address] Dec, [facility] [address] [id number], [place] [address] Nov, [facility] [address] [id number], [place] [address] Oct, IMMUNIZATIONS No Known Immunizations SOCIAL HISTORY Never Assessed REASON FOR VISIT Lab (walk-in) PLAN OF CARE Activity Details Future/Pending Procedure ROUTINE VENIPUNCTURE VITAL SIGNS MEDICATIONS Unknown Medications RESULTS No Results PROCEDURES Procedure Date Ordered Result Body Site LAB NOT BILLED BY [facility] Jan 18, 2018 VENIPUNCT, ROUTINE* Jan 18, 2018 INSTRUCTIONS MEDICATIONS ADMINISTERED No Known Medications MEDICAL [...] Medical History 11/2017 Nuclear stress test [facility] Medical History 11/2017 Swallow study Severe [...] post joint fluid analysis-[facility] 09/20/16 Hospitalization History kidneys--[facility] 11/2017
--- OUTSIDE RECORDS SUMMARY | 2018-06-12 13:38 | XMS REPORT | Encounter Summary ---
Author Author [facility] Organization [facility] Address Unknown Phone Unavailable Care Team Providers Care Renewable Energy Trader Name Role Phone Heidy Beltran APRN PCP Brandon Valadez MD Unavailable Reason for Visit * Reason Comments Financial/Insurance Benefit Collection for 2019 Questions Encounter Details Care Team Description Date Type Department Irene Vega Financial/Insurance Questions (Benefit Collection for 2019) 04/19/[address] [address] Social History Date Tobacco Use Types Packs/Day Years Used Never Assessed Sex Assigned at Date Recorded Not on file Industry Job Start Date Occupation Not on file Not on file Not on file Travel End Travel History Travel Start No recent travel history available. 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 COLLECTION: Verified by: Irene Middleton Date: April 19, 2018 ID #: [id number] Subscriber:Self Ins Plan:[employer] Phone#:[phone] Plan Type:[facility] KANCARE (prev [place] Medicaid): No Spend Down Reported as of 04/19/18 $48 INPT ADMIT COPAY RETIREMENT/CORRECTION CARE [phone] OUTPT HOSPITAL $3/VISIT SURGICENTER $3/DOS OUTPT REHAB $1/VISIT DME $3/CLAIM HHC $3/VISIT NON-EMERGENCY TRANSPORT OR AMBULANCE $3/DOS OV $2/COPAY MENTAL HEALTH CALL S [phone], $3/VISIT DENTAL $3/DOS RX $3/FILL (NO MAIL ORDER) If 2ndry to Medicare: PAYS [place] FOR IMMUNOS AFTER PART B IS IT COVERED? CALL [phone] [facility] Reference Number: [id number] [place] [facility] OPT HEALTH Benefits verified/ appropriate for evaluation with [facility]. Auth required prior to evaluation and auth required to activate when primary. NO AUTH REQUIRED WHEN 2ND PAYER TO ANY OTHER INSURANCE EMS ENGINEERING MANAGER documented in this encounter Plan of Treatment Not on filedocumented as of this encounter Visit Diagnoses Not on filedocumented in this encounter
--- OUTSIDE RECORDS SUMMARY | 2018-06-12 13:38 | XMS REPORT | Encounter Summary ---
Author Author [facility] Organization [facility] Address Unknown Phone Unavailable Care Team Providers Care Cyber Forensics Analyst Name Role Phone Heidy Beltran APRN PCP Brandon Valadez MD Unavailable Reason for Visit * Reason Comments Transplant Referral Intake Interview Encounter Details Care Team Description Date Type Department Zahra De La Torre Transplant Referral (Intake Interview ) 04/04/2018 Telephone The [address] [address] Social History Date Tobacco Use Types Packs/Day Years Used Never Assessed Sex Assigned at Date Recorded Not on file Industry Job Start Date Occupation Not on file Not on file Not on file Travel End Travel History Travel Start No recent travel history available. documented as of this encounter Miscellaneous Notes * Telephone Encounter - Zahra De La Torre - 04/04/2018 3:34 PM ELECTRONICS TESTER New Referral IntakeTO PATIENT: Thank you for contacting us, how did you hear about our transplant program? Thoracic Medicine Physician Is Mongolian your primary language? Yes Who is your kidney doctor? Dr. Mariann Canales Who is your primary doctor? Heidy Umaña Have you had a hospitalization in the past 6 months? 4 months ago, [facility] in [place] chest pain Past Medical History: (if answer is yes, please specify) How tall are you? 6 1 How much do you weigh? 285 Calculated BMI: 37.6 What is the cause of your kidney disease? diabetes Are you currently on dialysis? No Are you diabetic? Diabetes at what age were you diagnosed? Type II, around 32 Have you been denied or listed by another transplant center? No Have you had a previous organ transplant? No History of: Heart disease? No Do you have a heart doctor? Dr. Valadez History of heart stents? Yes - [facility] Are you on medication to keep stents open (ex. Coumadin, Plavix, Brilinta)?No Are you on medication to help raise your blood pressure (Midodrine)? No Lung disease? No Are you on oxygen? No Do you wear CPAP (breathing machine at night to sleep)? No Do you use tobacco products or have you in the past? Yes - smoking Packs per week? 2 for 25 years? When did you quit? Currently trying Do you use any illegal substances or have you in the past? (Chronic use) No TO PATIENT: If you currently smoke, you need to quit to be considered a transplant candidate. Liver disease? No Cancer? No Any active infections? No History of HIV or Hepatitis? No open wounds or sores? No Psychiatric illness? No Do you see a psychiatrist or counselor? No Do you use a cane/walker/ other assistive devices to get around? No Past Surgical History: Have you had any abdominal surgeries? gall bladder removed - [facility] camargo Have you had any surgeries on blood vessels? No Have you had any amputations? No Would you accept a lifesaving blood transfusion? Yes Demographic and Social History:What gender were you assigned at ? Male What gender do you identify with currently? Male What race do you identify with? Primary Insurance Company: Medicaid Policy #: [id number] Secondary Insurance Company: No Do you have a support person who will be with you before, during, and after a transplant? Name and Relationship of Support Person: Kendal Gusman Do you have an interest living donors? No If so, they are welcome to come to evaluation with you. We may need you to sign a Release of Information Authorization Form. Do you have access to a fax machine or an e-mail address we can send it to? TO PATIENT: You will need to bring your support person with you to the transplant evaluation. This is required to be considered a candidate for transplant. If you have interested living donors, they are welcome to come with you, as well. If patient has possible living donor - have them call: If recipient last name, A-L Alexia, If recipient last name M-Z, Raven, TRONICS TESTER documented in this encounter Plan of Treatment Not on filedocumented as of this encounter Visit Diagnoses Not on filedocumented in this encounter
--- OUTSIDE RECORDS SUMMARY | 2018-06-12 13:52 | XMS REPORT ---
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 Name Role Phone CHAPARRO MUJICA Unavailable PROBLEMS Type Condition ICD9-CM Code IHZ11-RY Code Onset Dates Condition Status SNOMED Code Problem Primary osteoarthritis of left knee M17.12 Active [id number] Problem Chronic kidney disease, stage V (very severe) N18.5 Active 938087277 Problem Essential hypertension I10 Active 29463889 Problem Diabetes mellitus E11.9 Active 96193737 Problem Insomnia, unspecified G47.00 Active 656482567 Problem Proteinuria R80.9 Active 83829163 Problem Gout, unspecified M10.9 Active 76519871 Problem Hypertriglyceridemia E78.1 Active 034539866 Problem Kidney stone N20.0 Active 85900874 Problem Delayed gastric emptying K30 Active 065252835 Problem Acute kidney failure, unspecified N17.9 Active 51535274 Problem Edema R60.9 Active 26223942 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 Active 911022966 Problem Chronic kidney disease, stage 3 N18.3 Active 554377485 Problem Gastroesophageal reflux disease, esophagitis presence not specified K21.9 Active 227279685 Problem Coronary atherosclerosis of unspecified type of vessel, mechoopda or graft I25.10 Active 899138271 Problem Mixed hyperlipidemia E78.2 Active 559694643 Problem Mood disorder F39 Active 83685991 Problem Type 2 diabetes mellitus with hyperglycemia E11.65 Active 979862847716430 Problem Pseudogout M11.20 Active 931597728 Problem 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 386803183 Problem Gout of left knee due to renal impairment, unspecified chronicity M10.362 Active 882070649 ALLERGIES No Information ENCOUNTERS Encounter Location Date Diagnosis [facility] [address] [facility] [id number] [address] Jan, [place] [address] [place] [id number] [place] [address] 83208- 2076 Jan, [place] [address] [address]- [address] Jan, Essential hypertension I10 ; Gout, unspecified M10.9 ; Coronary atherosclerosis of unspecified type of vessel, mechoopda or graft I25.10 ; Mixed hyperlipidemia E78.2 and Type 2 diabetes mellitus with hyperglycemia E11.65 [place] [address] [address]- 8220 Dec, Chronic kidney disease, stage 3 N18.3 ; Proteinuria R80.9 ; Diabetes mellitus E11.9 ; Acute kidney failure, unspecified N17.9 and Mixed hyperlipidemia E78.2 [place] [address] [address]- 2311 16 Dec, 2017 Chronic kidney disease, stage 3 N18.3 ; Essential hypertension I10 ; Proteinuria R80.9 ; Diabetes mellitus E11.9 ; Kidney stone N20.0 ; Acute kidney failure, unspecified N17.9 ; Edema R60.9 and Mixed hyperlipidemia E78.2 [place] [address] [address] [id number] [place] [address] 32669- 2118 Dec, Type 2 diabetes mellitus with hyperglycemia E11.65 [place] [address] [place] [id number] [place] [address] 07871- 9246 Dec, Chronic kidney disease, stage 3 N18.3 [place] [address] [place] [id number] [place] [address] 11850- 4731 Dec, Type 2 diabetes mellitus with hyperglycemia E11.65 [place] [address] 77990- 9194 Dec, [place] [address] 83211- 9084 Nov, Type 2 diabetes mellitus with hyperglycemia E11.65 [place] [address] 94571- 4419 Nov, [place] [address] [place] [id number] [place] [address] 59727- 8760 17 Nov, 2017 Chronic kidney disease, stage V (very severe) N18.5 ; Type 2 diabetes mellitus with hyperglycemia E11.65 ; Encounter for immunization Z23 and Delayed gastric emptying K30 [place] [address] [place] [id number] [place] [address] 38323- 7320 Nov, [place] [address] 53571- 5848 Oct, Essential hypertension I10 ; Coronary atherosclerosis of unspecified type of vessel, mechoopda or graft I25.10 ; Type 2 diabetes mellitus with hyperglycemia E11.65 and Gout, unspecified M10.9 [place] [address] [place] [id number] [place] [address] 62397- 9804 Oct, Chronic kidney disease, stage V (very severe) N18.[address] 20965- 8729 Oct, Mixed hyperlipidemia E78.2 [place] [id number] [place] [address] 67300- 9466 Sep, Type 2 diabetes mellitus with hyperglycemia E11.65 [place] [address] [place] [id number] [place] [address] 66873- 0714 Sep, Mixed hyperlipidemia E78.2 [place] [address] [place] [id number] [place] [address] 78967- 8214 Sep, Chronic kidney disease, stage V (very severe) N18.5 [place] [address] [place] [id number] [place] [address] 53428- 5246 Sep, Type 2 diabetes mellitus with hyperglycemia E11.65 and Essential hypertension I10 [place] [address] [place] [id number] [place] [address] 63007- 4426 Sep, Type 2 diabetes mellitus with hyperglycemia E11.65 [place] [address] 45338- 7795 Aug, Gout, unspecified M10.9 ; Gastroesophageal reflux disease, esophagitis presence not specified K21.9 ; Mood disorder F39 and Coronary atherosclerosis of unspecified type of vessel, mechoopda or graft I25.10 [place] [address] [place] [address] 06086- 1665 Aug, [place] [address] [place] [id number] [place] [address] 71216- 4145 June, Type 2 diabetes mellitus with hyperglycemia E11.65 [place] [address] [place] [id number] [place] [address] 79104- 2690 May, Mood disorder F39 ; Gastroesophageal reflux disease, esophagitis presence not specified K21.9 ; Gout, unspecified M10.9 ; Coronary atherosclerosis of unspecified type of vessel, mechoopda or graft I25.10 and Type 2 diabetes mellitus with hyperglycemia E11.65 [place] [address] [place] [id number] [place] [address] 74295- 1063 May, Type 2 diabetes mellitus with hyperglycemia E11.65 [place] [address] [place] [id number] [place] [address] 99435- 1484 Apr, Diabetes E11.9 and Mood disorder F39 [place] [address] [place] [id number] [place] [address] 03691- 2749 Mar, Primary osteoarthritis of left knee M17.12 and Tear of lateral meniscus of left knee, unspecified tear type, unspecified whether old or current tear, initial encounter S83.282A [place] [address] [place] [id number] [place] [address] 35267- 9571 Feb, Mood disorder F39 [place] [address] [place] [id number] [place] [address] 06660- 5323 Feb, Pseudogout M11.20 [place] [address] [place] [id number] [place] [address] 35856- 6480 Jan, 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 [facility] [address] [place] [id number] [place] [address] 04747 -1125 Jan, [place] [address] [place] [id number] [place] [address] 64967- 0586 Jan, Pseudogout M11.20 ; Type 2 diabetes mellitus with hyperglycemia E11.65 and Other correction (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 [place] [address] [place] [id number] [place] [address] 03653- 3037 Jan, Gout of left knee due to renal impairment, unspecified chronicity M10.362 ; Type 2 diabetes mellitus with diabetic nephropathy E11.21 ; Synovial cyst of popliteal space [Mejia], left knee M71.22 and Low back pain M54.5 [place] [id number] [place] [address] 53630- 4655 Dec, Pseudogout M11.20 [place] [address] [place] [id number] [place] [address] 07727- 3873 Dec, [place] [address] [place] [id number] [place] [address] 33733- 0832 Dec, Type 2 diabetes mellitus with diabetic nephropathy E11.21 and Right anterior knee pain M25.561 [place] [address] [place] [id number] [place] [address] 63513- 4246 Nov, Pseudogout M11.20 [place] [id number] [place] [address] 08097- 8720 Nov, Pseudogout M11.20 ; Chronic kidney disease, stage 3 N18.3 ; Mixed hyperlipidemia E78.2 ; Gout, unspecified M10.9 ; Coronary atherosclerosis of unspecified type of vessel, mechoopda or graft I25.10 ; Mood disorder F39 and Gastroesophageal reflux disease, esophagitis presence not specified K21.9 [place] [address] [place] [id number] [place] [address] 82204- 5572 16 Nov, 2016 [place] [address] [place] [id number] [place] [address] 99993- 2009 Oct, Pseudogout M11.20 [place] [address] [place] [id number] [place] [address] 06869- 2738 Sep, Pseudogout M11.20 [facility] [address] [place] [id number] [place] [address] 38871- 9363 Sep, Pseudogout M11.20 [facility] [address] [place] [id number] [place] [address] 65440- 8785 Sep, [facility] [place] [address] [id number] Aug, [facility] [address] [place] [id number] [place] [address] 52854- 1399 Aug, Diabetes E11.9 ; Chronic kidney disease, stage 3 N18.3 ; Hyperuricemia E79.0 ; Mixed hyperlipidemia E78.2 ; Gastroesophageal reflux disease, esophagitis presence not specified K21.9 ; Gout, unspecified M10.9 ; Coronary atherosclerosis of unspecified type of vessel, mechoopda or graft I25.10 and Mood disorder F39 [facility] [address] [place] [id number] [place] [address] 57392- 1413 June, [facility] [address] [place] [id number] [place] [address] 23726- 4230 June, [facility] [address] [place] [id number] [place] [address] 94370- 6581 June, [facility] [address] [place] [id number] [place] [address] 25781- 5728 May, Chronic renal failure, stage 3 (moderate) N18.3 [facility] [address] [place] [id number] [place] [address] 75298- 6007 May, Diabetes E11.9 [facility] [address] [place] [id number] [place] [address] 69459- 1151 May, [facility] [address] [place] [id number] [place] [address] 60165- 3592 Apr, [facility] [address] [place] [id number] [place] [address] 89595- 9275 Apr, [place] [address] [place] [address] 88477- 4444 Apr, Cellulitis of right lower extremity L03.115 and Diabetes E11.9 [place] [address] [place] [address] 11114- 8166 Apr, Type 2 diabetes mellitus with hyperglycemia E11.65 [place] [address] [place] [id number] [place] [address] 09224- 1767 Mar, Cellulitis of right lower extremity L03.115 and Low back pain M54.5 [place] [address] [place] [id number] [place] [address] 39716- 6434 Mar, [place] [address] [place] [id number] [place] [address] 95662- 4882 Mar, Cellulitis of right lower extremity L03.115 [place] [address] [place] [id number] [place] [address] 17355- 7418 Mar, Cellulitis of right lower extremity L03.115 [place] [address] [place] [id number] [place] [address] 14974- 5761 Feb, Cellulitis of right lower extremity L03.115 [place] [address] [place] [address] 34977- 1320 Feb, Cellulitis of right lower extremity L03.115 [place] [address] [place] [address] 79406- 5909 Feb, [place] [address] [place] [address] 36818- 6214 Feb, Leukocytosis, unspecified type D72.829 ; Chronic renal failure, stage 3 (moderate) N18.3 and Type 2 diabetes mellitus with hyperglycemia E11.65 [place] [address] [address]- 9866 Feb, Leukocytosis, unspecified type D72.829 [place] [address] [address]- 6676 Feb, [place] [address] [place] [id number] [place] [address] 38184- 1796 Feb, Cellulitis of right lower extremity L03.115 ; Thrush B37.0 ; Gout of left knee due to renal impairment, unspecified chronicity M10.362 and Chronic renal failure, stage 3 (moderate) N18.3 [place] [address] [place] [id number] [place] [address] 74422- 4747 Feb, [place] [address] [place] [id number] [place] [address] 67615- 0837 Feb, Right foot infection L08.9 ; Type 2 diabetes mellitus with hyperglycemia E11.65 ; Arthralgia of left knee M25.562 ; Chronic kidney disease , stage 3 N18.3 and Diabetes E11.9 [place] [address] [place] [id number] [place] [address] 01490- 1634 Feb, [place] [address] [place] [id number] [place] [address] 49926- 9278 Feb, Diabetes E11.9 ; Arthralgia of left knee M25.562 and Thrush B37.0 [place] [address] [place] [address] 35872- 3317 Jan, [place] [address] [place] [address] 92936- 5819 Jan, Type 2 diabetes mellitus with hyperglycemia E11.65 ; Chronic renal failure, stage 3 (moderate) N18.3 and Leukocytosis, unspecified type D72.829 [place] [address] [place] [id number] [place] [address] 51107- 8124 Jan, Type 2 diabetes mellitus with hyperglycemia E11.65 [place] [address] [address]- 1920 Dec, Gout of left knee due to renal impairment, unspecified chronicity M10.362 [place] [address] [place] [address] 69746- 9358 14 Dec, 2015 Gout of left knee due to renal impairment, unspecified chronicity M10.362 and Diabetes E11.9 [place] [address] [place] [id number] [place] [address] 69620- 8858 14 Dec, 2015 [place] [address] [place] [id number] [place] [address] 52925- 8708 Dec, [facility] [address] [place] [id number] [place] [address] 13630 -2460 Dec, [place] [address] [place] [id number] [place] [address] 70596- 9797 Dec, Chronic kidney disease, stage 3 N18.3 ; Type 2 diabetes mellitus with diabetic nephropathy E11.21 ; Type 2 diabetes mellitus with hyperglycemia E11.65 and 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 [facility] [address] [place] [id number] [place] [address] 67753 -8043 Dec, Leukocytosis, unspecified type D72.829 ; Chronic renal failure, stage 3 (moderate) N18.3 and Nausea R11.0 [place] [address] [place] [id number] [place] [address] 96463- 4401 Nov, [place] [address] [place] [id number] [place] [address] 58312- 4692 Jul, [place] [address] [place] [id number] [place] [address] 45419- 2895 Jul, Diabetes E11.9 ; Low back pain M54.5 and Other chronic pain G89.29 [place] [address] [place] [id number] [place] [address] 82342- 7501 June, [place] [address] [place] [id number] [place] [address] 50159- 8551 June, [place] [address] [place] [id number] [place] [address] 75587- 1903 Jan, Viral illness B34.9 [facility] [address] [place] [id number] [place] [address] 31693- 7525 Jan, Type 2 diabetes mellitus with hyperglycemia E11.65 ; Pain in right foot M79.671 and Localized edema R60.0 [facility] [address] [place] [id number] [place] [address] 29517- 9787 Jan, [facility] [address] 28324- 7368 Dec, Right foot pain M79.671 ; Insomnia, unspecified type G47.00 and Diabetes E11.9 [facility] [address] 08586- 8645 Dec, Pain in right foot M79.671 [facility] [address] [place] [id number] [place] [address] 25912- 1690 Nov, [facility] [address] 99780- 2969 Sep, [facility] [address] [place] [id number] [place] [address] 96215- 3115 Sep, Diabetes mellitus, type II 250.00 [facility] [address] [place] [id number] [place] [address] 40479- 9863 May, [facility] [address] [place] [id number] [place] [address] 09005- 5537 May, [facility] [address] [place] [id number] [place] [address] 41163- 8432 Apr, [facility] [address] [place] [id number] [place] [address] 27209- 6170 Apr, [facility] [address] [place] [id number] [place] [address] 79786- 4019 Apr, [facility] [address] [place] [id number] [place] [address] 56061- 7676 Apr, [facility] [address] [place] [address]- 5630 12 Apr, 2014 [facility] [place] [facility] [address] [id number] [place] [address]- 8594 12 Apr, 2014 [facility] [place] [facility] [address] [id number] [place] [address]- 9489 05 Apr, 2014 [facility] [place] [facility] [address] [id number] [place] [address]- 7102 05 Apr, 2014 [facility] [place] [facility] [address] [id number] [place] [address]- 3038 18 Jan, 2014 [facility] [place] [facility] [address] [id number] [place] [address]- 4462 18 Jan, 2014 [facility] [place] [facility] [address] [id number] [place] [address]- 5143 15 Jan, 2014 [facility] [place] [facility] [address] [facility] [id number] [place] [address]- 0352 15 Jan, 2014 [facility] [place] [facility] [address] [id number] [place] [address]- 5606 10 Dec, 2013 [facility] [place] [facility] [address] [id number] [place] [address]- 4205 10 Dec, 2013 [facility] [place] [facility] [address] [facility] [id number] [place] [address]- 5348 Nov, [facility] [place] [facility] [address] [id number] [place] [address]- 1002 Nov, [facility] [place] [facility] [address] [id number] [place] [address]- 0785 26 Oct, 2013 [facility] [place] [facility] [address] [id number] [place] [address]- 2289 Oct, [facility] [place] [facility] [address] [facility] [id number] [place] [address]- 3291 05 Oct, 2013 [facility] [place] [facility] [address] [facility] [id number] [place] [address]- 3182 05 Oct2013 [facility] [place] [facility] [address] [id number] [place] [address]- 4431 Sep, [facility] [place] [facility] [address] [id number] [place] [address]- 5310 Sep, [facility] [place] [facility] [address] [id number] [place] [address]- 8153 Sep, [facility] [place] [facility] [address] [id number] [place] [address]- 5877 Sep, [facility] [place] [facility] [address] [id number] [place] [address]- 1218 Sep, [facility] [place] [facility] [address] [id number] [place] [address]- 6654 Sep, [facility] [place] [facility] [address] [id number] [place] [address]- 1944 Sep, [facility] [place] [facility] [address] [id number] [place] [address]- 5375 Sep, [facility] [place] [facility] [address] [id number] [place] [address]- 2158 Sep, [facility] [place] [facility] [address] [id number] [place] [address]- 3041 Sep, [facility] [place] [facility] [address] [id number] [place] [address]- 4101 Sep, [facility] [place] [facility] [address] [id number] [place] [address]- 2244 Sep, [facility] [place] [facility] [address] [id number] [place] [address]- 9908 Aug, [facility] [place] [facility] [address] [id number] [place] [address]- 7047 Aug, [facility] [place] [facility] [address] [id number] [place] [address]- 2721 Aug, [facility] [place] [facility] [address] [id number] [place] [address]- 4750 14 Aug, 2013 [facility] [place] [facility] [address] [id number] [place] [address]- 4924 June, [facility] [place] [facility] [address] [id number] [place] [address]- 8990 24 May, 2013 [facility] [place] [facility] [address] [id number] [place] [address]- 6699 24 May, 2013 [facility] [place] [facility] [address] [id number] [place] [address]- 0752 May, [facility] [place] [facility] [address] [id number] [place] [address]- 6475 18 May, 2013 [facility] [place] [facility] [address] [id number] [place] [address]- 6268 17 May, 2013 [facility] [place] [facility] [address] [id number] [place] [address]- 7930 17 May, 2013 [facility] [place] [facility] [address] [id number] [place] [address]- 7000 16 May, 2013 [facility] [place] [facility] [address] [id number] [place] [address]- 2458 16 May, 2013 [facility] [place] [facility] [address] [id number] [place] [address]- 1210 14 May, 2013 [facility] [place] [facility] [address] [id number] [place] [address]- 0087 14 May, 2013 [facility] [place] [facility] [address] [id number] [place] [address]- 0676 14 May, 2013 [facility] [place] [facility] [address] [id number] [place] [address]- 5843 14 May, 2013 [facility] [place] [facility] [address] [id number] [place] [address] Apr, [facility] [place] [facility] [address] [id number] [place] [address] Apr, [facility] [place] [facility] [address] [id number] [place] [address] Mar, [facility] [address] [id number] [place] [address] Mar, [facility] [place] [facility] [address] [id number] [place] [address] Dec, [facility] [address] [id number] [place] [address] Dec, [facility] [place] [facility] [address] [id number] [place] [address] Dec, [facility] [address] [id number] [place] [address] Dec, [facility] [place] [facility] [address] [id number] [place] [address] Nov, [facility] [place] [facility] [address] [id number] [place] [address] Nov, [facility] [address] [id number] [place] [address] Oct, [facility] [place] [facility] [address] [id number] [place] [address] Oct, [facility] [address] [id number] [place] [address] Aug, [facility] [place] [facility] [address] [id number] [place] [address] Aug, [facility] [place] [facility] [address] [id number] [place] [address] Aug, [facility] [place] [facility] [address] [id number] [place] [address] Jul, [facility] [place] [facility] [address] [id number] [place] [address] June, [facility] [place] [facility] [address] [id number] [place] [address] June, [facility] [address] [id number] [place] [address] Apr, [facility] [place] [facility] [address] [id number] [place] [address] Mar, [facility] [address] [id number] [place] [address] Mar, [facility] [address] [id number] [place] [address] Mar, [facility] [address] [id number] [place] [address] Mar, [facility] [address] [id number] [place] [address] Mar, [facility] [address] [id number] [place] [address] Feb, [facility] [address] [id number] [place] [address] Feb, [facility] [address] [id number] [place] [address] Feb, [facility] [address] [id number] [place] [address] Feb, [facility] [address] [id number] [address] Jan, [facility] [place] [facility] [address] [id number], [place] [address] Jan, [facility] [place] [facility] [address] [id number] [place] [address] Dec, [facility] [place] [facility] [address] [id number] [place] [address] Dec, [facility] [place] [facility] [address] [id number] [place] [address] Dec, [facility] [place] [facility] [address] [id number] [place] [address] Dec, [facility] [address] [id number] [place] [address] Oct, [facility] [address] [id number] [place] [address] Aug, [facility] [address] [id number] [place] [address] Jul, [facility] [address] [id number] [place] [address] June, [facility] [address] [id number] [place] [address] June, [facility] [address] [id number] [place] [address] June, [facility] [address] [id number] [place] [address] June, [facility] [address] [id number] [place] [address] June, [facility] [address] [id number] [place] [address] May, [facility] [address] [id number] [place] [address] May, [facility] [address] [id number] [place] [address] Apr, [facility] [address] [id number] [place] [address] Apr, [facility] [place] [facility] [address] [id number] [place] [address] Mar, [facility] [place] [facility] [address] [id number] [place] [address] Feb, [facility] [place] [facility] [address] [id number] [place] [address] Nov, [facility] [place] [facility] [address] [id number] [place] [address] 13 Nov, 2010 [facility] [place] [facility] [address] [id number] [place] [address] 13 Nov, 2010 [facility] [place] [facility] [address] [id number] [place] [address] 17 Apr, 2010 [facility] [place] [facility] [address] [id number] [place] [address] 07 Jan, 2010 [facility] [address] [id number] [place] [address] 24 Dec, 2009 [facility] [place] [facility] [address] [id number] [place] [address] Dec, [facility] [address] [id number] [place] [address] 29 Nov, 2009 [facility] [address] [id number] [place] [address] June, [facility] [address] [id number] [place] [address] 29 Jan, 2009 [facility] [place] [facility] [address] [id number] [place] [address] 28 Jan, 2009 [facility] [place] [facility] [address] [id number] [place] [address]- 29[address] 23 Jan, 2009 [facility] [place] [facility] [address] [id number], [place] [address] 22 Jan, 2009 [facility] [place] [facility] [address] [id number] [place] [address]47 16 Jan, 2009 [facility] [place] [facility] [address] [id number] [place] [address] 15 Jan, 2009 [facility] [place] [facility] [address] [id number] [place] [address] 15 Jan, 2009 [facility] [place] [facility] [address] [id number], [place] [address] Jan, [facility] [id number], [place] [address] Jan, [facility] [id number], [place] [address] Jan, [facility] [id number], [place] [address] Jan, [facility] [id number], [place] [address] Jan, [facility] [id number] [place] [address] Dec, [facility] [id number] [place] [address] Dec, [facility] [id number] [place] [address] Dec, [facility] [id number], [place] [address] Dec, [facility] [id number], [place] [address] Nov, [facility] [id number], [place] [address] Oct, IMMUNIZATIONS No Known Immunizations SOCIAL HISTORY Never Assessed REASON FOR VISIT medication clarification PLAN OF CARE VITAL SIGNS MEDICATIONS Unknown [...] left knee pseudogout status post joint fluid analysis-[facility] 09/20/16 Hospitalization History kidneys--[facility] 11/2017
--- OUTSIDE RECORDS SUMMARY | 2018-06-12 13:53 | XMS REPORT ---
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 Name Role Phone CHAPARRO MUJICA Unavailable PROBLEMS Type Condition ICD9-CM Code [id number] Code Onset Dates Condition Status SNOMED Code Problem Primary osteoarthritis of left knee M17.12 Active [id number] Problem Chronic kidney disease, stage V (very severe) N18.5 Active 965810209 Problem Essential hypertension I10 Active 69989134 Problem Diabetes mellitus E11.9 Active 98714376 Problem Insomnia, unspecified G47.00 Active 122122404 Problem Proteinuria R80.9 Active 65943778 Problem Gout, unspecified M10.9 Active 29667851 Problem Hypertriglyceridemia E78.1 Active 570933974 Problem Kidney stone N20.0 Active 72189394 Problem Delayed gastric emptying K30 Active 795364484 Problem Acute kidney failure, unspecified N17.9 Active 68358380 Problem Edema R60.9 Active 63274845 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 Active 054376124 Problem Chronic kidney disease, stage 3 N18.3 Active 664681575 Problem Gastroesophageal reflux disease, esophagitis presence not specified K21.9 Active 047457274 Problem Coronary atherosclerosis of unspecified type of vessel, rincon or graft I25.10 Active 099101094 Problem Mixed hyperlipidemia E78.2 Active 434931249 Problem Mood disorder F39 Active 84815353 Problem Type 2 diabetes mellitus with hyperglycemia E11.65 Active [id number] Problem Pseudogout M11.20 Active 206042353 Problem 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 783301672 Problem Gout of left knee due to renal impairment, unspecified chronicity M10.362 Active [id number] ALLERGIES No Information ENCOUNTERS Encounter Location Date Diagnosis [facility] [place] [address] [facility] [id number] [address] Jan, [place] [address] [place] [id number] [place] [address] 36702- 6664 Jan, [place] [address] 98804- 8877 Jan, Essential hypertension I10 ; Gout, unspecified M10.9 ; Coronary atherosclerosis of unspecified type of vessel, rincon or graft I25.10 ; Mixed hyperlipidemia E78.2 and Type 2 diabetes mellitus with hyperglycemia E11.65 [place] [address] 58233- 3110 Dec, Chronic kidney disease, stage 3 N18.3 ; Proteinuria R80.9 ; Diabetes mellitus E11.9 ; Acute kidney failure, unspecified N17.9 and Mixed hyperlipidemia E78.2 [place] [address] 29590- 6141 16 Dec, 2017 Chronic kidney disease, stage 3 N18.3 ; Essential hypertension I10 ; Proteinuria R80.9 ; Diabetes mellitus E11.9 ; Kidney stone N20.0 ; Acute kidney failure, unspecified N17.9 ; Edema R60.9 and Mixed hyperlipidemia E78.2 [place] [address] [place] [id number] [place] [address] 15801- 2543 Dec, Type 2 diabetes mellitus with hyperglycemia E11.65 [place] [address] [place] [id number] [place] [address] 63078- 1689 Dec, Chronic kidney disease, stage 3 N18.3 [place] [address] [place] [id number] [place] [address] 73362- 6718 Dec, Type 2 diabetes mellitus with hyperglycemia E11.65 [place] [address] 96223- 5156 Dec, [place] [address] 80972- 3441 Nov, Type 2 diabetes mellitus with hyperglycemia E11.65 [place] [address] 63507- 6130 Nov, [place] [address] [place] [id number] [place] [address] 02906- 3270 17 Nov, 2017 Chronic kidney disease, stage V (very severe) N18.5 ; Type 2 diabetes mellitus with hyperglycemia E11.65 ; Encounter for immunization Z23 and Delayed gastric emptying K30 [place] [address] [place] [id number] [place] [address] 97888- 4600 Nov, [place] [address] 67927- 2300 Oct, Essential hypertension I10 ; Coronary atherosclerosis of unspecified type of vessel, rincon or graft I25.10 ; Type 2 diabetes mellitus with hyperglycemia E11.65 and Gout, unspecified M10.9 [place] [address] [place] [id number] [place] [address] 79486- 6490 Oct, Chronic kidney disease, stage V (very severe) N18.[address] [address]28- 8806 Oct, Mixed hyperlipidemia E78.2 [place] [id number] [place] [address] 63752- 4912 Sep, Type 2 diabetes mellitus with hyperglycemia E11.65 [place] [address] [place] [id number] [place] [address] 16160- 1982 Sep, Mixed hyperlipidemia E78.2 [place] [address] [place] [id number] [place] [address] 82163- 8738 Sep, Chronic kidney disease, stage V (very severe) N18.5 [place] [address] [place] [id number] [place] [address] 84498- 8626 Sep, Type 2 diabetes mellitus with hyperglycemia E11.65 and Essential hypertension I10 [place] [address] [place] [id number] [place] [address] 09013- 7175 Sep, Type 2 diabetes mellitus with hyperglycemia E11.65 [place] [address] 44765- 1691 Aug, Gout, unspecified M10.9 ; Gastroesophageal reflux disease, esophagitis presence not specified K21.9 ; Mood disorder F39 and Coronary atherosclerosis of unspecified type of vessel, rincon or graft I25.10 [place] [address] [place] [address] 35185- 7503 Aug, [place] [address] [place] [id number] [place] [address] 62514- 0288 June, Type 2 diabetes mellitus with hyperglycemia E11.65 [place] [address] [place] [id number] [place] [address] 59576- 5817 May, Mood disorder F39 ; Gastroesophageal reflux disease, esophagitis presence not specified K21.9 ; Gout, unspecified M10.9 ; Coronary atherosclerosis of unspecified type of vessel, rincon or graft I25.10 and Type 2 diabetes mellitus with hyperglycemia E11.65 [place] [address] [place] [id number] [place] [address] 06490- 2142 May, Type 2 diabetes mellitus with hyperglycemia E11.65 [place] [address] [place] [id number] [place] [address] 86295- 4439 Apr, Diabetes E11.9 and Mood disorder F39 [place] [address] [place] [id number] [place] [address] 47297- 6502 Mar, Primary osteoarthritis of left knee M17.12 and Tear of lateral meniscus of left knee, unspecified tear type, unspecified whether old or current tear, initial encounter S83.282A [place] [address] [place] [id number] [place] [address] 21959- 3987 Feb, Mood disorder F39 [place] [address] [place] [id number] [place] [address] 25155- 0369 Feb, Pseudogout M11.20 [place] [address] [place] [id number] [place] [address] 82762- 0320 Jan, 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 [facility] WALK IN [facility] [address] [place] [id number] [place] [address] 26202 -3960 Jan, [place] [address] [place] [id number] [place] [address] 37677- 1833 Jan, Pseudogout M11.20 ; Type 2 diabetes mellitus with hyperglycemia E11.65 and Other prison (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 [place] [address] [place] [id number] [place] [address] 63939- 5574 Jan, Gout of left knee due to renal impairment, unspecified chronicity M10.362 ; Type 2 diabetes mellitus with diabetic nephropathy E11.21 ; Synovial cyst of popliteal space [Mejia], left knee M71.22 and Low back pain M54.5 [place] [id number] [place] [address] 13455- 0179 Dec, Pseudogout M11.20 [place] [address] [place] [id number] [place] [address] 00743- 1867 Dec, [place] [address] [place] [id number] [place] [address] 34235- 1526 Dec, Type 2 diabetes mellitus with diabetic nephropathy E11.21 and Right anterior knee pain M25.561 [place] [address] [place] [id number] [place] [address] 24212- 7054 Nov, Pseudogout M11.20 [place] [id number] [place] [address] 34837- 6042 Nov, Pseudogout M11.20 ; Chronic kidney disease, stage 3 N18.3 ; Mixed hyperlipidemia E78.2 ; Gout, unspecified M10.9 ; Coronary atherosclerosis of unspecified type of vessel, rincon or graft I25.10 ; Mood disorder F39 and Gastroesophageal reflux disease, esophagitis presence not specified K21.9 [place] [address] [place] [id number] [place] [address] 82510- 7155 16 Nov, 2016 [place] [address] [place] [id number] [place] [address] 47506- 3311 Oct, Pseudogout M11.20 [place] [address] [place] [id number] [place] [address] 20433- 8841 Sep, Pseudogout M11.20 [facility] [place] [address] [place] [id number] [place] [address] 34131- 9081 Sep, Pseudogout M11.20 [facility] [place] [address] [place] [id number] [place] [address] 09171- 2823 Sep, [facility] [address] [id number] Aug, [facility] [place] [address] [place] [id number] [place] [address] 06924- 4794 Aug, Diabetes E11.9 ; Chronic kidney disease, stage 3 N18.3 ; Hyperuricemia E79.0 ; Mixed hyperlipidemia E78.2 ; Gastroesophageal reflux disease, esophagitis presence not specified K21.9 ; Gout, unspecified M10.9 ; Coronary atherosclerosis of unspecified type of vessel, rincon or graft I25.10 and Mood disorder F39 [facility] [place] [address] [place] [id number] [place] [address] 69516- 9998 June, [facility] [place] [address] [place] [id number] [place] [address] 22740- 3197 June, [facility] [place] [address] [place] [id number] [place] [address] 68052- 3534 June, [facility] [place] [address] [place] [id number] [place] [address] 09720- 7204 May, Chronic renal failure, stage 3 (moderate) N18.3 [facility] [place] [address] [place] [id number] [place] [address] 33327- 4218 May, Diabetes E11.9 [facility] [place] [address] [place] [id number] [place] [address] 55902- 1793 May, [facility] [place] [address] [place] [id number] [place] [address] 02261- 3261 Apr, [facility] [place] [address] [place] [id number] [place] [address] 94873- 4280 Apr, [place] [address] [place] [address] 25389- 7888 Apr, Cellulitis of right lower extremity L03.115 and Diabetes E11.9 [place] [address] [place] [address] 03916- 8726 Apr, Type 2 diabetes mellitus with hyperglycemia E11.65 [place] [address] [place] [id number] [place] [address] 66291- 8259 Mar, Cellulitis of right lower extremity L03.115 and Low back pain M54.5 [place] [address] [place] [id number] [place] [address] 72085- 5270 Mar, [place] [address] [place] [id number] [place] [address] 27668- 4849 Mar, Cellulitis of right lower extremity L03.115 [place] [address] [place] [id number] [place] [address] 96791- 3962 Mar, Cellulitis of right lower extremity L03.115 [place] [address] [place] [id number] [place] [address] 74126- 7827 Feb, Cellulitis of right lower extremity L03.115 [place] [address] [place] [address] 30712- 1098 Feb, Cellulitis of right lower extremity L03.115 [place] [address] [place] [address] 71435- 6475 Feb, [place] [address] [place] [address] 23919- 7177 Feb, Leukocytosis, unspecified type D72.829 ; Chronic renal failure, stage 3 (moderate) N18.3 and Type 2 diabetes mellitus with hyperglycemia E11.65 [place] [address] [address]- 1239 Feb, Leukocytosis, unspecified type D72.829 [place] [address] [address]- 7792 Feb, [place] [address] [place] [id number] [place] [address] 35254- 2196 Feb, Cellulitis of right lower extremity L03.115 ; Thrush B37.0 ; Gout of left knee due to renal impairment, unspecified chronicity M10.362 and Chronic renal failure, stage 3 (moderate) N18.3 [place] [address] [place] [id number] [place] [address] 72185- 0428 Feb, [place] [address] [place] [id number] [place] [address] 81774- 6728 Feb, Right foot infection L08.9 ; Type 2 diabetes mellitus with hyperglycemia E11.65 ; Arthralgia of left knee M25.562 ; Chronic kidney disease , stage 3 N18.3 and Diabetes E11.9 [place] [address] [place] [id number] [place] [address] 47199- 6572 Feb, [place] [address] [place] [id number] [place] [address] 01780- 6442 Feb, Diabetes E11.9 ; Arthralgia of left knee M25.562 and Thrush B37.0 [place] [address] [place] [address] 76587- 7142 Jan, [place] [address] [place] [address] 40037- 8958 Jan, Type 2 diabetes mellitus with hyperglycemia E11.65 ; Chronic renal failure, stage 3 (moderate) N18.3 and Leukocytosis, unspecified type D72.829 [place] [address] [place] [id number] [place] [address] 74703- 8232 Jan, Type 2 diabetes mellitus with hyperglycemia E11.65 [place] [address] [address]- 3846 Dec, Gout of left knee due to renal impairment, unspecified chronicity M10.362 [place] [address] [place] [address] 38747- 0364 14 Dec, 2015 Gout of left knee due to renal impairment, unspecified chronicity M10.362 and Diabetes E11.9 [place] [address] [place] [id number] [place] [address] 91809- 4447 14 Dec, 2015 [place] [address] [place] [id number] [place] [address] 67818- 3918 Dec, [facility] [address] [place] [id number] [place] [address] 43855 -6776 Dec, [place] [address] [place] [id number] [place] [address] 05142- 2247 Dec, Chronic kidney disease, stage 3 N18.3 ; Type 2 diabetes mellitus with diabetic nephropathy E11.21 ; Type 2 diabetes mellitus with hyperglycemia E11.65 and 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 [facility] IN [facility] [address] [place] [id number] [place] [address] 83740 -8068 Dec, Leukocytosis, unspecified type D72.829 ; Chronic renal failure, stage 3 (moderate) N18.3 and Nausea R11.0 [place] [address] [place] [id number] [place] [address] 74208- 0350 Nov, [place] [address] [place] [id number] [place] [address] 50339- 1430 Jul, [place] [address] [place] [id number] [place] [address] 68627- 3001 Jul, Diabetes E11.9 ; Low back pain M54.5 and Other chronic pain G89.29 [place] [address] [place] [id number] [place] [address] 80471- 7316 June, [place] [address] [place] [id number] [place] [address] 52009- 7148 June, [place] [address] [place] [id number] [place] [address] 34029- 6132 Jan, Viral illness B34.9 [facility] [place] [address] [place] [id number] [place] [address] 24414- 6161 Jan, Type 2 diabetes mellitus with hyperglycemia E11.65 ; Pain in right foot M79.671 and Localized edema R60.0 [facility] [place] [address] [place] [id number] [place] [address] 94242- 2050 Jan, [facility] [place] [address] 43065- 8524 Dec, Right foot pain M79.671 ; Insomnia, unspecified type G47.00 and Diabetes E11.9 [facility] [place] [address] 05270- 3540 Dec, Pain in right foot M79.671 [facility] [place] [address] [place] [id number] [place] [address] 40023- 6160 Nov, [facility] [place] [address] 22546- 4263 Sep, [facility] [place] [address] [place] [id number] [place] [address] 25379- 2487 Sep, Diabetes mellitus, type II 250.00 [facility] [place] [address] [place] [id number] [place] [address] 44614- 2773 May, [facility] [place] [address] [place] [id number] [place] [address] 58969- 0452 May, [facility] [place] [address] [place] [id number] [place] [address] 03911- 2781 Apr, [facility] [place] [address] [place] [id number] [place] [address] 90402- 9195 Apr, [facility] [place] [address] [place] [id number] [place] [address] 92253- 7983 Apr, [facility] [place] [address] [place] [id number] [place] [address] 48733- 8813 Apr, [facility] [place] [address] [place] [address]- 1430 12 Apr, 2014 [facility] [place] [facility] [address] [id number] [place] [address]- 7202 12 Apr, 2014 [facility] [place] [facility] [address] [id number] [place] [address]- 3744 05 Apr, 2014 [facility] [place] [facility] [address] [id number] [place] [address]- 4475 05 Apr, 2014 [facility] [place] [facility] [address] [id number] [place] [address]- 0489 18 Jan, 2014 [facility] [place] [facility] [address] [id number] [place] [address]- 6204 18 Jan, 2014 [facility] [place] [facility] [address] [id number] [place] [address]- 2585 15 Jan, 2014 [facility] [place] [facility] [address] [facility] [id number] [place] [address]- 6585 15 Jan, 2014 [facility] [place] [facility] [address] [id number] [place] [address]- 3490 10 Dec, 2013 [facility] [place] [facility] [address] [id number] [place] [address]- 1473 10 Dec, 2013 [facility] [place] [facility] [address] [facility] [id number] [place] [address]- 9498 Nov, [facility] [place] [facility] [address] [id number] [place] [address]- 2831 Nov, [facility] [place] [facility] [address] [id number] [place] [address]- 0258 26 Oct, 2013 [facility] [place] [facility] [address] [id number] [place] [address]- 6186 Oct, [facility] [place] [facility] [address] [facility] [id number] [place] [address]- 2869 05 Oct, 2013 [facility] [place] [facility] [address] [facility] [id number] [place] [address]- 4002 05 Oct2013 [facility] [place] [facility] [address] [id number] [place] [address]- 6794 Sep, [facility] [place] [facility] [address] [id number] [place] [address]- 1618 Sep, [facility] [place] [facility] [address] [id number] [place] [address]- 3812 Sep, [facility] [place] [facility] [address] [id number] [place] [address]- 7191 Sep, [facility] [place] [facility] [address] [id number] [place] [address]- 2461 Sep, [facility] [place] [facility] [address] [id number] [place] [address]- 3141 Sep, [facility] [place] [facility] [address] [id number] [place] [address]- 1350 Sep, [facility] [place] [facility] [address] [id number] [place] [address]- 4971 Sep, [facility] [place] [facility] [address] [id number] [place] [address]- 5556 Sep, [facility] [place] [facility] [address] [id number] [place] [address]- 1507 Sep, [facility] [place] [facility] [address] [id number] [place] [address]- 0080 Sep, [facility] [place] [facility] [address] [id number] [place] [address]- 8493 Sep, [facility] [place] [facility] [address] [id number] [place] [address]- 2550 Aug, [facility] [place] [facility] [address] [id number] [place] [address]- 4658 Aug, [facility] [place] [facility] [address] [id number] [place] [address]- 5734 Aug, [facility] [place] [facility] [address] [id number] [place] [address]- 2058 14 Aug, 2013 [facility] [place] [facility] [address] [id number] [place] [address]- 9318 June, [facility] [place] [facility] [address] [id number] [place] [address]- 3380 24 May, 2013 [facility] [place] [facility] [address] [id number] [place] [address]- 9416 24 May, 2013 [facility] [place] [facility] [address] [id number] [place] [address]- 1181 May, [facility] [place] [facility] [address] [id number] [place] [address]- 7893 18 May, 2013 [facility] [place] [facility] [address] [id number] [place] [address]- 3884 17 May, 2013 [facility] [place] [facility] [address] [id number] [place] [address]- 3495 17 May, 2013 [facility] [place] [facility] [address] [id number] [place] [address]- 8350 16 May, 2013 [facility] [place] [facility] [address] [id number] [place] [address]- 1755 16 May, 2013 [facility] [place] [facility] [address] [id number] [place] [address]- 0281 14 May, 2013 [facility] [place] [facility] [address] [id number] [place] [address]- 5319 14 May, 2013 [facility] [place] [facility] [address] [id number] [place] [address]- 9922 14 May, 2013 [facility] [place] [facility] [address] [id number] [place] [address]- 5[address] 14 May, 2013 [facility] [place] [facility] [address] [id number] [place] [address] Apr, [facility] [place] [facility] [address] [id number] [place] [address] Apr, [facility] [place] [facility] [address] [id number] [place] [address] Mar, [facility] [address] [id number] [place] [address] Mar, [facility] [place] [facility] [address] [id number] [place] [address] Dec, [facility] [address] [id number] [place] [address] Dec, [facility] [place] [facility] [address] [id number] [place] [address] Dec, [facility] [address] [id number] [place] [address] Dec, [facility] [place] [facility] [address] [id number] [place] [address] Nov, [facility] [place] [facility] [address] [id number] [place] [address] Nov, [facility] [address] [id number] [place] [address] Oct, [facility] [place] [facility] [address] [id number] [place] [address] Oct, [facility] [address] [id number] [place] [address] Aug, [facility] [place] [facility] [address] [id number] [place] [address] Aug, [facility] [place] [facility] [address] [id number] [place] [address] Aug, [facility] [place] [facility] [address] [id number] [place] [address] Jul, [facility] [place] [facility] [address] [id number] [place] [address] June, [facility] [place] [facility] [address] [id number] [place] [address] June, [facility] [address] [id number] [place] [address] Apr, [facility] [place] [facility] [address] [id number] [place] [address] Mar, [facility] [address] [id number] [place] [address] Mar, [facility] [address] [id number] [place] [address] Mar, [facility] [address] [id number] [place] [address] [address] Mar, [facility] [address] [id number] [place] [address] Mar, [facility] [address] [id number] [place] [address] Feb, [facility] [address] [id number] [place] [address] Feb, [facility] [address] [id number] [place] [address] Feb, [facility] [address] [id number] [place] [address] Feb, [facility] [address] [id number] [address] Jan, [facility] [place] [facility] [address] [id number][place] [address] Jan, [facility] [place] [facility] [address] [id number] [place] [address] Dec, [facility] [place] [facility] [address] [id number] [place] [address] Dec, [facility] [place] [facility] [address] [id number] [place] [address] Dec, [facility] [place] [facility] [address] [id number] [place] [address] Dec, [facility] [address] [id number] [place] [address] Oct, [facility] [address] [id number] [place] [address] Aug, [facility] [address] [id number] [place] [address] Jul, [facility] [address] [id number] [place] [address] June, [facility] [address] [id number] [place] [address] June, [facility] [address] [id number] [place] [address] June, [facility] [address] [id number] [place] [address] June, [facility] [address] [id number] [place] [address] June, [facility] [address] [id number] [place] [address] May, [facility] [address] [id number] [place] [address] May, [facility] [address] [id number] [place] [address] Apr, [facility] [address] [id number] [place] [address] Apr, [facility] [place] [facility] [address] [id number] [place] [address] Mar, [facility] [place] [facility] [address] [id number] [place] [address] Feb, [facility] [place] [facility] [address] [id number] [place] [address] Nov, [facility] [place] [facility] [address] [id number] [place] [address] 13 Nov, 2010 [facility] [place] [facility] [address] [id number] [place] [address] 13 Nov, 2010 [facility] [place] [facility] [address] [id number] [place] [address] 17 Apr, 2010 [facility] [place] [facility] [address] [id number] [place] [address] 07 Jan, 2010 [facility] [address] [id number] [place] [address] 24 Dec, 2009 [facility] [place] [facility] [address] [id number] [place] [address] Dec, [facility] [address] [id number] [place] [address] 29 Nov, 2009 [facility] [address] [id number] [place] [address] June, [facility] [address] [id number] [place] [address] 29 Jan, 2009 [facility] [place] [facility] [address] [id number] [place] [address] 28 Jan, 2009 [facility] [place] [facility] [address] [id number] [place] [address] 23 Jan, 2009 [facility] [place] [facility] [address] [id number][place] [address] 22 Jan, 2009 [facility] [place] [facility] [address] [id number] [place] [address] 16 Jan, 2009 [facility] [place] [facility] [address] [id number] [place] [address] 15 Jan, 2009 [facility] [place] [facility] [address] [id number] [place] [address] 15 Jan, 2009 [facility] [place] [facility] [address] [id number][place] [address] Jan, [facility] [place] [id number] [address] Jan, [facility] [place] [id number] [address] Jan, [facility] [place] [id number], [place] [address] Jan, [facility] [place] [id number], [place] [address] Jan, [facility] [place] [id number], [place] [address] Dec, [facility] [place] [id number] [place] [address] Dec, [facility] [place] [id number] [place] [address] Dec, [facility] [place] [id number], [place] [address] Dec, [facility] [place] [id number] [address] Nov, [facility] [place] [id number] [address] Oct, IMMUNIZATIONS No Known Immunizations SOCIAL HISTORY Never Assessed REASON FOR VISIT Samples Request PLAN OF CARE VITAL SIGNS MEDICATIONS Medication Instructions Dosage Frequency Start Date End Date Duration Status Aspir-81 81 MG Orally Once a day 1 tablet 24h 90 days Active Omeprazole 40 MG Orally Once a day 1 capsule 24h 30 days Active Atorvastatin Calcium 40 MG Orally Once a day 1 tablet 24h 90 days Active Reglan 10 MG Orally every 8 hours 1 tablet as needed 8h Active Seroquel 50 mg Orally Once a day 3 Tablets 24h 30 days Active Toprol XL 100 mg Orally Once a day 1.5 tablets 24h 90 days Active Uloric 80 MG [...] left knee pseudogout status post joint fluid analysis-[facility] 09/20/16 Hospitalization History kidneys--[facility] 11/2017
--- OUTSIDE RECORDS SUMMARY | 2018-06-12 13:54 | XMS REPORT ---
Author Author CHAPARRO MUJICA Organization [facility] Address [address] [place] [address] Care Team Providers Care Gathering Worker Name Role Phone CHAPARRO MUJICA Unavailable PROBLEMS Type Condition ICD9-CM Code NIJ97-FB Code Onset Dates Condition Status SNOMED Code Problem Primary osteoarthritis of left knee M17.12 Active 045628629691148 Problem Chronic kidney disease, stage V (very severe) N18.5 Active 474029506 Problem Essential hypertension I10 Active 09401615 Problem Diabetes mellitus E11.9 Active 73717282 Problem Insomnia, unspecified G47.00 Active 707357907 Problem Proteinuria R80.9 Active 61945743 Problem Gout, unspecified M10.9 Active 30555371 Problem Hypertriglyceridemia E78.1 Active 160497484 Problem Kidney stone N20.0 Active 77496143 Problem Delayed gastric emptying K30 Active 809784572 Problem Acute kidney failure, unspecified N17.9 Active 38739569 Problem Edema R60.9 Active 78925033 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 Active 326585581 Problem Chronic kidney disease, stage 3 N18.3 Active 533364927 Problem Gastroesophageal reflux disease, esophagitis presence not specified K21.9 Active 594168019 Problem Coronary atherosclerosis of unspecified type of vessel, alatna or graft I25.10 Active 567900981 Problem Mixed hyperlipidemia E78.2 Active 387420242 Problem Mood disorder F39 Active 38814027 Problem Type 2 diabetes mellitus with hyperglycemia E11.65 Active 841139195617147 Problem Pseudogout M11.20 Active 390961084 Problem 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 591396649 Problem Gout of left knee due to renal impairment, unspecified chronicity M10.362 Active 632206689 ALLERGIES No Information ENCOUNTERS Encounter Location Date Diagnosis [facility] [address] [facility] [id number] [address] Dec, Chronic kidney disease, stage 3 N18.3 ; Proteinuria R80.9 ; Diabetes mellitus E11.9 ; Acute kidney failure, unspecified N17.9 and Mixed hyperlipidemia E78.2 [place] [address] [address]- [address] Dec, Chronic kidney disease, stage 3 N18.3 ; Essential hypertension I10 ; Proteinuria R80.9 ; Diabetes mellitus E11.9 ; Kidney stone N20.0 ; Acute kidney failure, unspecified N17.9 ; Edema R60.9 and Mixed hyperlipidemia E78.2 [place] [address] [address]- 2941 Dec, Type 2 diabetes mellitus with hyperglycemia E11.65 [place] [address] 54123- 8348 Dec, Chronic kidney disease, stage 3 N18.3 [place] [address] 47886- 7077 Dec, Type 2 diabetes mellitus with hyperglycemia E11.65 [place] [address] 90900- 0931 Dec, [place] [address] 34200- 6076 Nov, Type 2 diabetes mellitus with hyperglycemia E11.65 [place] [address] 90695- 4033 Nov, [place] [address] 92487- 6880 Nov, Chronic kidney disease, stage V (very severe) N18.5 ; Type 2 diabetes mellitus with hyperglycemia E11.65 ; Encounter for immunization Z23 and Delayed gastric emptying K30 [place] [address] 94004- 8919 Nov, [place] [address] 30936- 4422 Oct, Essential hypertension I10 ; Coronary atherosclerosis of unspecified type of vessel, alatna or graft I25.10 ; Type 2 diabetes mellitus with hyperglycemia E11.65 and Gout, unspecified M10.9 [place] [address] 88623- 8727 Oct, Chronic kidney disease, stage V (very severe) N18.5 [place] [address] 25760- 6092 Oct, Mixed hyperlipidemia E78.2 [place] [address] 24735- 4322 Sep, Type 2 diabetes mellitus with hyperglycemia E11.65 [place] [address] 11636- 6147 Sep, Mixed hyperlipidemia E78.2 [place] [address] 59490- 9427 Sep, Chronic kidney disease, stage V (very severe) N18.5 [place] [address] [place] [id number] [place] [address] 19276- 2334 Sep, Type 2 diabetes mellitus with hyperglycemia E11.65 and Essential hypertension I10 [place] [address] 29046- 0943 Sep, Type 2 diabetes mellitus with hyperglycemia E11.65 [place] [address] [place] [id number] [place] [address] 35735- 1612 Aug, Gout, unspecified M10.9 ; Gastroesophageal reflux disease, esophagitis presence not specified K21.9 ; Mood disorder F39 and Coronary atherosclerosis of unspecified type of vessel, alatna or graft I25.10 [place] [address] 50295- 8511 Aug, [place] [address] [place] [id number] [place] [address] 61828- 6828 June, Type 2 diabetes mellitus with hyperglycemia E11.65 [place] [address] 19146- 8721 May, Mood disorder F39 ; Gastroesophageal reflux disease, esophagitis presence not specified K21.9 ; Gout, unspecified M10.9 ; Coronary atherosclerosis of unspecified type of vessel, alatna or graft I25.10 and Type 2 diabetes mellitus with hyperglycemia E11.65 [place] [address] [place] [address] 10482- 7107 May, Type 2 diabetes mellitus with hyperglycemia E11.65 [place] [address] [place] [id number] [place] [address] 61422- 3445 Apr, Diabetes E11.9 and Mood disorder F39 [place] [address] [place] [id number] [place] [address] 38623- 6894 Mar, Primary osteoarthritis of left knee M17.12 and Tear of lateral meniscus of left knee, unspecified tear type, unspecified whether old or current tear, initial encounter S83.282A [place] [address] [place] [id number] [place] [address] 96303- 6724 Feb, Mood disorder F39 [place] [address] [place] [id number] [place] [address] 51091- 6212 Feb, Pseudogout M11.20 [place] [address] [place] [id number] [place] [address] 50151- 3585 Jan, Other long-term (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 [facility] [address] [place] [id number] [place] [address] 74358 -9088 Jan, [place] [address] [place] [id number] [place] [address] 72947- 9912 Jan, Pseudogout M11.20 ; Type 2 diabetes mellitus with hyperglycemia E11.65 and Other long-term (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 [place] [address] [place] [address] 78717- 7963 Jan, Gout of left knee due to renal impairment, unspecified chronicity M10.362 ; Type 2 diabetes mellitus with diabetic nephropathy E11.21 ; Synovial cyst of popliteal space [Mejia], left knee M71.22 and Low back pain M54.5 [facility] [address] [place] [id number] [place] [address] 60076- 4763 Dec, Pseudogout M11.20 [facility] [address] [place] [id number] [place] [address] 23268- 2297 14 Dec, 2016 [facility] [address] 22136- 3406 13 Dec, 2016 Type 2 diabetes mellitus with diabetic nephropathy E11.21 and Right anterior knee pain M25.561 [place] [address] [place] [id number] [place] [address] 46301- 3538 Nov, Pseudogout M11.20 [place] [address] [place] [id number] [place] [address] 52618- 5333 Nov, Pseudogout M11.20 ; Chronic kidney disease, stage 3 N18.3 ; Mixed hyperlipidemia E78.2 ; Gout, unspecified M10.9 ; Coronary atherosclerosis of unspecified type of vessel, alatna or graft I25.10 ; Mood disorder F39 and Gastroesophageal reflux disease, esophagitis presence not specified K21.9 [facility] [address] [place] [id number] [place] [address] 94254- 1578 Nov, [place] [address] [place] [id number] [place] [address] 44640- 0622 Oct, Pseudogout M11.20 [facility] [address] [place] [id number] [place] [address] 93330- 2587 Sep, Pseudogout M11.20 [facility] [address] [place] [id number] [place] [address] 03892- 1985 Sep, Pseudogout M11.20 [facility] [address] [place] [id number] [place] [address] 56028- 4625 Sep, [facility] [address] [place] [id number] [place] [address] [id number] Aug, [facility] [address] [address] 9579 Aug, Diabetes E11.9 ; Chronic kidney disease, stage 3 N18.3 ; Hyperuricemia E79.0 ; Mixed hyperlipidemia E78.2 ; Gastroesophageal reflux disease, esophagitis presence not specified K21.9 ; Gout, unspecified M10.9 ; Coronary atherosclerosis of unspecified type of vessel, alatna or graft I25.10 and Mood disorder F39 [place] [address] [place] [id number] [place] [address] 98882- 8044 June, [place] [address] [place] [id number] [place] [address] 67744- 8670 June, [place] [address] [place] [id number] [place] [address] 77714- 8700 June, [place] [address] [place] [id number] [place] [address] 90899- 8600 May, Chronic renal failure, stage 3 (moderate) N18.3 [place] [address] [place] [address]- 9526 May, Diabetes E11.9 [place] [address] [place] [id number] [place] [address] 27736- 3592 May, [place] [address] [address] 1795 Apr, [place] [address] [place] [id number] [place] [address] 96391- 1946 Apr, [place] [address] [place] [id number] [place] [address] 35344- 4347 Apr, Cellulitis of right lower extremity L03.115 and Diabetes E11.9 [place] [address] [id number] [address]- 8973 Apr, Type 2 diabetes mellitus with hyperglycemia E11.65 [place] [address] [address]- 3207 Mar, Cellulitis of right lower extremity L03.115 and Low back pain M54.5 [place] [address] [address]- 0950 Mar, [place] [address] [place] [address] 67713- 4186 Mar, Cellulitis of right lower extremity L03.115 [facility] [address] [place] [address] 84152- 5410 Mar, Cellulitis of right lower extremity L03.115 [place] [address] [place] [address] 35157- 2488 Feb, Cellulitis of right lower extremity L03.115 [place] [address] [place] [address] 79561- 3103 Feb, Cellulitis of right lower extremity L03.115 [place] [address] [place] [address] 80396- 5004 Feb, [place] [address] [place] [address] 12183- 6426 Feb, Leukocytosis, unspecified type D72.829 ; Chronic renal failure, stage 3 (moderate) N18.3 and Type 2 diabetes mellitus with hyperglycemia E11.65 [place] [address] [address]- 5962 Feb, Leukocytosis, unspecified type D72.829 [place] [address] [place] [address] 48023- 7058 Feb, [place] [address] [place] [address] 63844- 8479 Feb, Cellulitis of right lower extremity L03.115 ; Thrush B37.0 ; Gout of left knee due to renal impairment, unspecified chronicity M10.362 and Chronic renal failure, stage 3 (moderate) N18.3 [place] [address] [place] [address] 13416- 5286 Feb, [place] [address] [place] [address] 80272- 7326 Feb, Right foot infection L08.9 ; Type 2 diabetes mellitus with hyperglycemia E11.65 ; Arthralgia of left knee M25.562 ; Chronic kidney disease , stage 3 N18.3 and Diabetes E11.9 [place] [address] [place] [id number] [place] [address] 04407- 8306 Feb, [place] [address] [place] [id number] [place] [address] 47797- 4146 Feb, Diabetes E11.9 ; Arthralgia of left knee M25.562 and Thrush B37.0 [place] [address] [place] [id number] [place] [address] 42916- 6812 Jan, [place] [address] [place] [id number] [place] [address] 96151- 9766 Jan, Type 2 diabetes mellitus with hyperglycemia E11.65 ; Chronic renal failure, stage 3 (moderate) N18.3 and Leukocytosis, unspecified type D72.829 [place] [address] [place] [id number] [place] [address] 32115- 7312 Jan, Type 2 diabetes mellitus with hyperglycemia E11.65 [place] [address] [place] [id number] [place] [address] 68676- 4675 Dec, Gout of left knee due to renal impairment, unspecified chronicity M10.362 [place] [address] [place] [id number] [place] [address] 02741- 1683 Dec, Gout of left knee due to renal impairment, unspecified chronicity M10.362 and Diabetes E11.9 [place] [address] [place] [id number] [place] [address] 71793- 0088 Dec, [place] [address] [place] [id number] [place] [address] 44312- 5701 Dec, [facility] [address] [place] [id number] [place] [address] 43989 -7630 Dec, [facility] [address] [place] [id number] [place] [address] 70419- 9591 Dec, Chronic kidney disease, stage 3 N18.3 ; Type 2 diabetes mellitus with diabetic nephropathy E11.21 ; Type 2 diabetes mellitus with hyperglycemia E11.65 and 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 [facility] [address] [place] [id number] [place] [address] 46849 -6824 Dec, Leukocytosis, unspecified type D72.829 ; Chronic renal failure, stage 3 (moderate) N18.3 and Nausea R11.0 [place] [address] [place] [id number] [place] [address] 77797- 5547 Nov, [place] [address] 96590- 3537 Jul, [place] [address] 57837- 4236 Jul, Diabetes E11.9 ; Low back pain M54.5 and Other chronic pain G89.29 [place] [address] [place] [id number] [place] [address] 12387- 2561 June, [place] [address] 09520- 5010 June, [place] [address] [place] [id number] [place] [address] 93156- 9509 Jan, Viral illness B34.9 [place] [address] 61954- 2103 Jan, Type 2 diabetes mellitus with hyperglycemia E11.65 ; Pain in right foot M79.671 and Localized edema R60.0 [place] [address] 34550- 0011 Jan, [place] [address] [place] [id number] [place] [address] 71107- 6156 Dec, Right foot pain M79.671 ; Insomnia, unspecified type G47.00 and Diabetes E11.9 [facility] [address] [address]- 0915 Dec, Pain in right foot M79.671 [facility] [address] [address]- 9428 Nov, [facility] [address] [place] [id number] [place] [address] 30054- 7857 Sep, [facility] [address] [place] [id number] [place] [address] 51490- 2437 Sep, Diabetes mellitus, type II 250.00 [facility] [address] [place] [id number] [place] [address] 33283- 2793 May, [facility] [address] [place] [id number] [place] [address] 63459- 6695 May, [facility] [address] [place] [id number] [place] [address] 28140- 7631 Apr, [facility] [address] [address]- 5295 Apr, [facility] [address] [place] [id number] [place] [address] 93536- 0584 Apr, [facility] [address] [address]- 3640 Apr, [facility] [address] [place] [address] 96731- 2220 Apr, [facility] [address] [address]- 3592 Apr, [facility] [address] [place] [id number] [place] [address] 49711- 0422 Apr, [facility] [address] [address]- 2310 Apr, [facility] [address] [place] [address] 760357- 5399 Jan, [facility] [place] [facility] [address] [id number] [place] [address]- 3940 18 Jan, 2014 [facility] [place] [facility] [address] [id number] [place] [address]- 7057 Jan, [facility] [place] [facility] [address] [id number] [place] [address]- 8809 Jan, [facility] [place] [facility] [address] [id number] [place] [address]- 5941 Dec, [facility] [place] [facility] [address] [id number] [place] [address]- 6902 Dec, [facility] [place] [facility] [address] [id number] [place] [address]- 5390 Nov, [facility] [place] [facility] [address] [id number] [place] [address]- 6707 Nov, [facility] [place] [facility] [address] [id number] [place] [address]- 2547 Oct, [facility] [place] [facility] [address] [id number] [place] [address]- 9492 Oct, [facility] [place] [facility] [address] [id number] [place] [address]- 3943 05 Oct, 2013 [facility] [place] [facility] [address] [id number] [place] [address]- 7132 Oct, [facility] [place] [facility] [address] [id number], [place] [address]- 9338 Sep, [facility] [place] [facility] [address] [id number] [place] [address]- 4016 Sep, [facility] [place] [facility] [address] [id number] [place] [address]- 1132 Sep, [facility] [place] [facility] [address] [id number], [place] [address]- 6518 Sep, [facility] [place] [facility] [address] [id number], [place] [address]- 3237 Sep, [facility] [place] [facility] [address] [id number] [place] [address]- 2018 Sep, [facility] [place] [facility] [address] [id number] [place] [address]- 9406 Sep, [facility] [place] [facility] [address] [id number] [place] [address]- 8365 Sep, [facility] [place] [facility] [address] [id number] [place] [address]- 1821 Sep, [facility] [place] [facility] [address] [id number] [place] [address]- 9749 Sep, [facility] [place] [facility] [address] [id number] [place] [address]- 3642 Sep, [facility] [place] [facility] [address] [id number] [place] [address]- 2197 Sep, [facility] [place] [facility] [address] [id number] [place] [address]- 2946 Aug, [facility] [place] [facility] [address] [id number] [place] [address]- 3525 Aug, [facility] [place] [facility] [address] [id number] [place] [address]- 1593 Aug, [facility] [place] [facility] [address] [id number] [place] [address]- 0521 Aug, [facility] [place] [facility] [address] [id number] [place] [address]- 9548 June, [facility] [place] [facility] [address] [id number] [place] [address]- 8795 May, [facility] [place] [facility] [address] [id number] [place] [address]- 2529 May, [facility] [place] [facility] [address] [id number] [place] [address]- 2200 May, [facility] [place] [facility] [address] [id number] [place] [address]- 9374 18 May, 2013 [facility] [place] [facility] [address] [id number] [place] [address]- 3258 17 May, 2013 [facility] [place] [facility] [address] [id number] [place] [address]- 1666 17 May, 2013 [facility] [place] [facility] [address] [id number] [place] [address]- 3124 16 May, 2013 [facility] [place] [facility] [address] [id number] [place] [address]- 4671 16 May, 2013 [facility] [place] [facility] [address] [id number] [place] [address]- 1808 14 May, 2013 [facility] [place] [facility] [address] [id number] [place] [address]- 9872 14 May, 2013 [facility] [place] [facility] [address] [id number] [place] [address]- 1198 14 May, 2013 [facility] [place] [facility] [address] [id number] [place] [address]- 7764 14 May, 2013 [facility] [place] [facility] [address] [id number] [place] [address]- 2363 Apr, [facility] [place] [facility] [address] [id number] [place] [address]- 4086 Apr, [facility] [place] [facility] [address] [id number] [place] [address]- 4616 Mar, [facility] [place] [facility] [address] [id number] [place] [address]- 2105 Mar, [facility] [place] [facility] [address] [id number] [place] 8558 Dec, [facility] [place] [facility] [address] [id number] [place] 6097 Dec, [facility] [place] [facility] [address] [id number] [place] [address]- 3352 Dec, [facility] [place] [facility] [address] [id number] [place] [address]- 3145 Dec, [facility] [place] [facility] [address] [id number] [place] [address]- 3456 Nov, [facility] [place] [facility] [address] [id number] [place] [address] 2546 Nov, [facility] [place] [facility] [address] [id number] [place] [address]- 2549 Oct, [facility] [place] [facility] [address] [id number] [place] [address]- 5664 Oct, [facility] [place] [facility] [address] [id number] [place] [address]- 8175 Aug, [facility] [place] [facility] [address] [id number] [place] [address]- 8997 Aug, [facility] [place] [facility] [address] [id number] [place] [address]- 7026 Aug, [facility] [place] [facility] [address] [id number] [place] [address]- 3834 Jul, [facility] [place] [facility] [address] [id number] [place] [address]- 5506 June, [facility] [place] [facility] [address] [id number], [place] [address]- 2546 June, [facility] [place] [facility] [address] [id number], [place] [address]- 2546 Apr, [facility] [place] [facility] [address] [id number] [place] [address]- 2546 Mar, [facility] [place] [facility] [address] [id number], [place] [address]- 2546 Mar, [facility] [place] [facility] [address] [id number] [place] [address]- 2546 Mar, [facility] [place] [facility] [address] [id number] [place] [address]- 2546 08 Mar, 2012 [facility] [address] [id number] [place] [address]- 1244 Mar, [facility] [address] [id number] [place] [address] Feb, [facility] [address] [id number] [place] [address] Feb, [facility] [address] [id number] [place] [address] Feb, [facility] [address] [id number] [place] [address] Feb, [facility] [address] [id number] [place] [address] Jan, [facility] [address] [id number] [place] [address] Jan, [facility] [address] [id number] [place] [address] Dec, [facility] [address] [id number] [place] [address] Dec, [facility] [address] [id number] [place] [address] Dec, [facility] [address] [id number] [place] [address] Dec, [facility] [address] [id number] [place] [address] Oct, [facility] [place] [facility] [address] [id number] [place] [address] Aug, [facility] [place] [facility] [address] [id number] [place] [address] Jul, [facility] [place] [facility] [address] [id number] [place] [address] June, [facility] [address] [id number] [place] [address] June, [facility] [place] [facility] [address] [id number] [place] [address] June, [facility] [place] [facility] [address] [id number] [place] [address] June, [facility] [place] [facility] [address] [id number] [place] [address] June, [facility] [address] [id number] [place] [address] May, [facility] [place] [facility] [address] [id number] [place] [address] May, [facility] [address] [id number] [place] [address] Apr, [facility] [place] [facility] [address] [id number] [place] [address] Apr, [facility] [place] [facility] [address] [id number] [place] [address] Mar, [facility] [place] [facility] [address] [id number] [place] [address] Feb, [facility] [place] [facility] [address] [id number] [place] [address] Nov, [facility] [place] [facility] [address] [id number] [address] Nov, [facility] [place] [facility] [address] [id number] [place] [address] Nov, [facility] [place] [facility] [address] [id number] [place] [address] 17 Apr, 2010 [facility] [place] [facility] [address] [id number] [place] [address] Jan, [facility] [place] [facility] [address] [id number] [place] [address] 24 Dec, 2009 [facility] [address] [id number] [place] [address] 11 Dec, 2009 [facility] [address] [id number] [place] [address] 29 Nov, 2009 [facility] [address] [id number] [place] [address] June, [facility] [address] [id number] [place] [address] 29 Jan, 2009 [facility] [address] [id number] [place] [address] 28 Jan, 2009 [facility] [address] [id number] [place] [address] 23 Jan, 2009 [facility] [address] [id number] [place] [address] 22 Jan, 2009 [facility] [address] [id number] [place] [address] 16 Jan, 2009 [facility] [address] [id number] [place] [address] 15 Jan, 2009 [facility] [address] [facility] [id number] [place] [address] 15 Jan, 2009 [facility] [address] [id number] [place] [address] 11 Jan, 2009 [facility] [place] [facility] [address] [id number], [place] [address] 11 Jan, 2009 [facility] [address] [id number] [place] [address] 10 Jan, 2009 [facility] [place] [facility] [address] [id number] [place] [address] 04 Jan, 2009 [facility] [address] [facility] [id number] [address] 02 Jan, 2009 [facility] [address] [facility] [id number], [place] [address] Dec, [facility] [address] [id number], [place] [address] Dec, [facility] [address] [id number], [place] [address] Dec, [facility] [address] [id number], [place] [address] Dec, [facility] [address] [facility] [id number], [place] [address] Nov, [facility] [address] [id number], [place] [address] Oct, IMMUNIZATIONS No Known Immunizations SOCIAL HISTORY Never Assessed REASON FOR VISIT PHONG Alexis PLAN OF CARE VITAL SIGNS MEDICATIONS Medication Instructions Dosage Frequency Start Date End Date Duration Status Lantus SoloStar 100 UNIT/ML Subcutaneous 2 times a day inject 35 units 12h 21 Oct, 2017 30 days Active RESULTS No Results PROCEDURES [...] Medical History 11/2017 Nuclear stress test [facility] WN Medical History 11/2017 Swallow study Severe [...] left knee pseudogout status post joint fluid analysis-[facility] 09/20/16 Hospitalization History kidneys--[facility] 11/2017
[2018-06-12] MEDS ORDERED: ONDANSETRON 4 MG/2 ML (SDV) Z0FRAN IVP ONE ×2 (14:45→17:45)
[2018-06-12] MEDS ORDERED: NS IV 1000 ML 1,000 ML IV STA (14:45)
[2018-06-12] MEDS ORDERED: METO200T48 (14:49)
[2018-06-12 14:51] LABS: BASOPHILS # (AUTO) 0.1 10^3/uL (0.0-0.1); BASOPHILS % (AUTO) 1 % (0-10); EOSINOPHILS # (AUTO) 0.2 10^3/uL (0.0-0.3); EOSINOPHILS % (AUTO) 2 % (0-10); HEMATOCRIT 33 % (40-54); HEMOGLOBIN 10.9 G/DL (13.3-17.7); LYMPHOCYTES # (AUTO) 2.4 X 10^3 (1.0-4.0); LYMPHOCYTES % (AUTO) 18 % (12-44); MEAN CORPUSCULAR HGB CONC 33 G/DL (32-36); MEAN CORPUSCULAR VOLUME 80 FL (80-99); MEAN PLATELET VOLUME 10.1 FL (7.4-10.4); MONOCYTES # (AUTO) 0.7 X 10^3 (0.0-1.0); MONOCYTES % (AUTO) 6 % (0-12); NEUTROPHILS # (AUTO) 9.7 X 10^3 (1.8-7.8); NEUTROPHILS % (AUTO) 74 % (42-75); PLATELET COUNT 258 10^3/uL (130-400); RED CELL DISTRIBUTION WIDTH 17.4 % (10.0-14.5); WHITE BLOOD COUNT 13.1 10^3/uL (4.3-11.0)
[2018-06-12 14:52] LABS: MEAN CORPUSCULAR HEMOGLOBIN 26 PG (25-34)
[2018-06-12] MEDS ORDERED: lantus (14:53)
[2018-06-12 15:08] LABS: BILIRUBIN,TOTAL 0.3 MG/DL (0.1-1.0); CALCIUM 9.2 MG/DL (8.5-10.1); CREATININE SERUM 8.27 MG/DL (0.60-1.30); MAGNESIUM 2.2 MG/DL (1.8-2.4); POTASSIUM 4.7 MMOL/L (3.6-5.0)
[2018-06-12 15:09] LABS: ALBUMIN 3.8 GM/DL (3.2-4.5); TOTAL PROTEIN 7.9 GM/DL (6.4-8.2)
--- NOTE | 2018-06-12 15:51 | Diagnostic Imaging Report ---
INDICATION: Epigastric pain with nausea and vomiting. TIME OF EXAMINATION: 3:41 PM. COMPARISON: 12/06/2017. FINDINGS: The heart size is normal. The pulmonary vascularity is unremarkable. The lungs are clear. No infiltrate, effusion, or pneumothorax is detected. IMPRESSION: No acute cardiopulmonary process is detected. Dictated by: Dictated on workstation # [id number]
--- NOTE | 2018-06-12 15:57 | ED GI ---
General Chief Complaint: Abdominal/GI Problems Stated Complaint: ABD PAIN Nursing Triage Note: AMB TO ROOM REPORTS THAT FOR 2 DAYS HAS HAD EPIGASTRIC PAIN N/V HAS NOT TAKEN MEDS . Sepsis Screen: No Definite Risk Source of Information: Patient Exam Limitations: No Limitations History of Present Illness Date Seen by Provider: Jun 12, 2018 Time Seen by Provider: 14:40 Initial Comments Here with report that he is had upper abdominal pain with nausea and vomiting over the last 2 days. He has been unable to take his medicine due to the concerns. Does have chronic kidney disease but is not on dialysis yet. Denies breathing problems. Overall does not feel well. Abdominal pain is in the epigastric region. He follows with communication professor through [facility] system per the . Patient has not been receiving his insulin over the last 2 days because he has not been able to eat or drink. Timing/Duration: 1-2 Days Severity/Quality: Mild, Moderate, Cramping Location: Epigastric Radiation: No Radiation Activities at Onset: None Modifying Factors: Worsens With Eating Associated Symptoms: No Back Pain, No Chest Pain, No Fever/Chills; Nausea/ Vomiting; No Shortness of Air, No Weakness Allergies and Home Medications Allergies Coded Allergies: No Known Drug Allergies (Unverified , 09/15/08) Home Medications Aspirin 81 Mg Tablet.dr, 81 MG PO HS, (Reported) Atorvastatin Calcium 10 Mg Tablet, 10 MG PO HS, (Reported) Clopidogrel Bisulfate 75 Mg Tablet, 75 MG PO HS, (Reported) Colchicine 0.6 Mg Capsule, 0.6 MG PO DAILY Prescribed by: LESIA DEMARCO on 09/20/16 1250 Colchicine 0.6 Mg Capsule, 0.6 MG PO UD Prescribed by: ANGELIA CHAMORRO on 02/13/172119 Dulaglutide 0.75 Mg/0.5 Ml Pen.injctr, 0.75 MG SQ Fr, (Reported) Febuxostat 80 Mg Tablet, 80 MG PO HS, (Reported) Hydrocodone/Acetaminophen 1 Each Tablet, 1 EACH PO Q6H PRN for PAIN-MODERATE Prescribed by: BENJAMIN ANAND on 02/08/17 1736 Omeprazole 40 Mg Capsule.dr, 40 MG PO HS, (Reported) Quetiapine Fumarate 50 Mg Tablet, 100-150 MG PO HS, (Reported) TAKES 2-3 (50 MG) TABLETS AT BEDTIME Patient Home Medication List Home Medication List Reviewed: Yes Review of Systems Review of Systems Constitutional: see HPI; No chills, No fever EENTM: No Symptoms Reported Respiratory: No Symptoms Reported Cardiovascular: No Symptoms Reported Gastrointestinal: See HPI, Abdominal Pain, Nausea, Vomiting Genitourinary: No Symptoms Reported Musculoskeletal: no symptoms reported Skin: no symptoms reported Psychiatric/Neurological: No Symptoms Reported Endocrine: See HPI All Other Systems Reviewed Negative Unless Noted: Yes Past Edflfkx-Gdxizr-Rssmrj Hx Past Med/Social Hx: Reviewed Nursing Past Med/Soc Hx Patient Social History Alcohol Use: Denies Use Recreational Drug Use: No Drug of Choice: THC Smoking Status: Current Someday Smoker Type Used: Cigarettes 2nd Hand Smoke Exposure: Yes Recent Foreign Travel: No Contact w/Someone Who Travel: No Recent Infectious Disease Expo: No Recent Hopitalizations: No Immunizations Up To Date Tetanus Booster (TDap): Unknown PED Vaccines UTD: Yes Date of Influenza Vaccine: Dec 29, 2010 Seasonal Allergies Seasonal Allergies: No Past Medical History Surgeries: Yes Gallbladder Respiratory: No Cardiac: Yes (CARDIAC CATHS--STENTS X 2 --LAST CATH 08/04/16) Coronary Artery Disease, High Cholesterol, Hypertension Neurological: Yes (PERIPHERAL NEUROPATHY) Neuropathy Reproductive Disorders: No Sexually Transmitted Disease: No HIV/AIDS: No Genitourinary: Yes Kidney Stones, Renal Failure Gastrointestinal: Yes (S/P ASHLEY) Gastroesophageal Reflux, Gall Bladder Disease Musculoskeletal: Yes (CHRONIC KNEE PAIN, ANKLE PAIN, FOOT PAIN ; PSEUDO GOUT ) Gout Endocrine: Yes Diabetes, Insulin dep HEENT: No Cancer: No Psychosocial: Yes Anxiety Integumentary: Yes (MULTIPLE EPISODES OF CELLULITIS) Blood Disorders: No Adverse Reaction/Blood Tranf: No Family Medical History Reviewed Nursing Family Hx Chest pain 03 MOTHER Family history: Arthritis 03 MOTHER Family history: Diabetes mellitus 03 MOTHER 09 BROTHER Family history: Gastrointestinal disease 03 MOTHER 09 BROTHER Family history: Thyroid disorder 03 MOTHER Headache 03 MOTHER Hypercholesterolemia 03 FATHER 03 MOTHER 09 BROTHER Myocardial infarction 03 FATHER 03 MOTHER No Family History of: Abdominal aortic aneurysm Niraj's disease Alcoholism Aphasia Cancer Cancer of colon Cataract Congenital heart disease Congestive heart failure Cystic fibrosis Dementia Dysphagia Family history: Allergy Family history: Alzheimer's disease Family history: Asthma Family history: Breast disease Family history: Cardiovascular disease Family history: Coronary thrombosis Family history: Glaucoma Family history: Hypertension Family history: Osteoporosis Hearing loss Heart disease Hereditary disease History of - anemia History of - disorder History of - respiratory disease History of drug abuse Human immunodeficiency virus (HIV) seropositivity Kidney disease Malignant neoplasm of lung Parkinson's disease Prostate cancer Psychotic disorder Seizure disorder Stroke Tuberculosis Visual impairment Physical Exam Vital Signs Vital Signs - First Documented 06/12/18 13:54 Temp 96.1 Pulse 72 Resp 18 B/P (MAP) 176/89 (118) Pulse Ox 95 O2 Delivery Room Air Capillary Refill : Less Than 3 Seconds Height/Weight/BMI Height: 6'1.00" Weight: 285lbs. oz. 129.500067sh; 36.8 BMI Method:Stated General Appearance: WD/WN, no apparent distress HEENT: PERRL/EOMI, pharynx normal Neck: full range of motion, supple Respiratory: lungs clear, normal breath sounds Cardiovascular: regular rate, rhythm, no murmur Gastrointestinal: tenderness Extremities: non-tender, normal inspection Back: normal inspection, no CVA tenderness, no vertebral tenderness Neurologic/Psychiatric: alert, oriented x 3 Skin: normal color, warm/dry Progress/Results/Core Measures Results/Orders Lab Results Laboratory Tests Test 06/12/18 14:12 Range/Units White Blood Count 13.1 H 4.3-11.0 10^3/uL Red Blood Count 4.12 L 4.35-5.85 10^6/uL Hemoglobin 10.9 L 13.3-17.7 G/DL Hematocrit 33 L 40-54 % Mean Corpuscular Volume 80 80-99 FL Mean Corpuscular Hemoglobin 26 25-34 PG Mean Corpuscular Hemoglobin Concent 33 32-36 G/DL Red Cell Distribution Width 17.4 H 10.0-14.5 % Platelet Count 258 130-400 10^3/uL Mean Platelet Volume 10.1 7.4-10.4 FL Neutrophils (%) (Auto) 74 42-75 % Lymphocytes (%) (Auto) 18 12-44 % Monocytes (%) (Auto) 6 0-12 % Eosinophils (%) (Auto) 2 0-10 % Basophils (%) (Auto) 1 0-10 % Neutrophils # (Auto) 9.7 H 1.8-7.8 X 10^3 Lymphocytes # (Auto) 2.4 1.0-4.0 X 10^3 Monocytes # (Auto) 0.7 0.0-1.0 X 10^3 Eosinophils # (Auto) 0.2 0.0-0.3 10^3/uL Basophils # (Auto) 0.1 0.0-0.1 10^3/uL Sodium Level 140 135-145 MMOL/L Potassium Level 4.7 3.6-5.0 MMOL/L Chloride Level 108 H 98-107 MMOL/L Carbon Dioxide Level 21 21-32 MMOL/L Anion Gap 11 5-14 MMOL/L Blood Urea Nitrogen 72 H 7-18 MG/DL Creatinine 8.27 H 0.60-1.30 MG/DL Estimat Glomerular Filtration Rate 8 BUN/Creatinine Ratio 9 Glucose Level 86 70-105 MG/DL Calcium Level 9.2 8.5-10.1 MG/DL Corrected Calcium 9.4 8.5-10.1 MG/DL Magnesium Level 2.2 1.8-2.4 MG/DL Total Bilirubin 0.3 0.1-1.0 MG/DL Aspartate Amino Transf (AST/SGOT) 17 5-34 U/L Alanine Aminotransferase (ALT/SGPT) 14 0-55 U/L Alkaline Phosphatase 71 40-136 U/L C-Reactive Protein High Sensitivity 1.87 H 0.00-0.50 MG/DL Total Protein 7.9 6.4-8.2 GM/DL Albumin 3.8 3.2-4.5 GM/DL My Orders Orders - ROSALIE BURDICK MD Cbc With Automated Diff (06/12/18 14:45) Comprehensive Metabolic Panel (06/12/18 14:45) Hs C Reactive Protein (06/12/18 14:45) Magnesium (06/12/18 14:45) Ondansetron Injection (Zofran Injectio (06/12/18 14:45) Ns Iv 1000 Ml (Sodium Chloride 0.9%) (06/12/18 14:45) Ed Iv/Invasive Line Start (06/12/18 14:45) Chest Pa/Lat (2 View) (06/12/18 15:24) Fentanyl Injection (Sublimaze Injection (06/12/18 16:10) Medications Given in ED Current Medications Medications Dose Ordered Sig/Augusto Route Start Time Stop Time Status Last Admin Dose Admin Ondansetron HCl 4 mg ONCE ONCE IVP 06/12/18 14:45 06/12/18 14:47 DC 06/12/18 14:58 4 MG Vital Signs/I&O 06/12/18 13:54 Temp 96.1 Pulse 72 Resp 18 B/P (MAP) 176/89 (118) Pulse Ox 95 O2 Delivery Room Air Blood Pressure Mean: 118 Progress Progress Note : Progress Note Seen and evaluated. IV, labs and UA ordered. Very hard IV stick and ultimately was able to place a 20-gauge to the left EJ. Normal saline 1 L bolus. Chest x- ray ordered. Creatinine is noted to be greater than 8 and GFR is 8 now. This represents a change for him. He is dehydrated but has the abdominal discomfort going on. He may benefit from gentle hydration but also may need dialysis. Patient will require transfer for evaluation by nephrology service and either hydration and/or dialysis as indicated. This was discussed with patient and family who agree. 1555: I have initiated contact with [facility] for transfer and an pending call back from the hospital service. Patient is having some tenderness now. He did receive Zofran earlier which helped his nausea. Fentanyl 50 g IV ordered for pain. 1634: I discussed the case with Dr. Matos at [facility] and he accepts patient for transfer. Patient and family agree with plan. To go by EMS. Chest x-ray films clouded to [facility]: Xray Plain Films/CT/US/NM/MRI: chest Comments NAME: EVA ABRAHAM Magdy [facility] REC#: [id number] PT STATUS: REG ER : 1965 PHYSICIAN: ROSALIE BURDICK MD ADMIT DATE: 06/12/18/ER Signed Date of Exam: 06/12/18 CHEST PA/LAT (2 VIEW) INDICATION: Epigastric pain with nausea and vomiting. TIME OF EXAMINATION: 3:41 PM. COMPARISON: 12/06/2017. FINDINGS: The heart size is normal. The pulmonary vascularity is unremarkable. The lungs are clear. No infiltrate, effusion, or pneumothorax is detected. IMPRESSION: No acute cardiopulmonary process is detected. Dictated by: Dictated on workstation # [id number] Dict: 06/12/18 1549 Trans: 06/12/18 1555 Interpreted by: EVA IRENE MD Electronically signed by: EVA IRENE MD 06/12/18 1554 Departure Impression Primary Impression: Acute on chronic renal failure Qualified Codes: N17.9 - Acute kidney failure, unspecified; N18.5 - Chronic kidney disease, stage 5 Additional Impression: Epigastric abdominal pain Disposition: XF [facility] HOSP Condition: Stable Transfer Transfer Time: 16:34 Transfer Facility: [place], [place], Dr. Matos accepting Method of Transfer: EMS Departure-Patient Inst. Referrals: [facility] [place] Primary Care Physician CHAPARRO MUJICA (Family) Primary Care Physician ROSALIE BURDICK MD Jun 12, 2018 15:57
--- NOTE | 2018-06-12 16:06 | NUR ---
MED LIST AND FACE SHEET FAXED TO S
[2018-06-12] MEDS ORDERED: fentaNYL INJECTION 100 MCG/2 ML AMP IVP STA (16:10)
--- NOTE | 2018-06-12 16:34 | NUR ---
ACCEPTING PHYSICAN WILL CALL BACK WITH ROOM
--- NOTE | 2018-06-12 17:03 | NUR ---
CON'T TO WAIT FOR ROOM FROM [facility].
--- NOTE | 2018-06-12 17:20 | NUR ---
EMS CALLED FOR TRANSFER
[2018-06-12] MEDS ORDERED: hydrALAZINE (APESOLINE) 20 MG/ML VIAL IV ONE (17:30)
--- NOTE | 2018-06-12 17:36 | NUR ---
PATIENT CHILLING TEMP 97.8 DR NOTIFIED.
[2018-06-12] MEDS ORDERED: LORazepam INJ 2 MG/ML (ATIVAN) VIAL IVP ONE (18:15)
[2018-06-12 18:22] VITALS: BP 127/88
--- NOTE | 2018-06-12 18:22 | NUR ---
EMS HERE FOR TRANSFER
== END 2018-06-12 18:26 | disposition short-term general hospital (02) ==
LOC: EDUNIT# 13:33 → ER 13:34
DX: N17.9 Acute kidney failure, unspecified (principal); E11.22 Type 2 diabetes mellitus with diabetic chronic kidney disease; I12.0 Hypertensive chronic kidney disease with stage 5 chronic kidney disease or end stage renal disease; N18.6 End stage renal disease; R10.13 Epigastric pain; I25.10 Atherosclerotic heart disease of native coronary artery without angina pectoris; E78.00 Pure hypercholesterolemia, unspecified; F12.10 Cannabis abuse, uncomplicated; M10.9 Gout, unspecified; F41.9 Anxiety disorder, unspecified; K21.9 Gastro-esophageal reflux disease without esophagitis; F17.210 Nicotine dependence, cigarettes, uncomplicated; Z98.890 Other specified postprocedural states; Z82.49 Family history of ischemic heart disease and other diseases of the circulatory system; Z90.49 Acquired absence of other specified parts of digestive tract; Z87.19 Personal history of other diseases of the digestive system; Z99.2 Dependence on renal dialysis; Z79.82 Long term (current) use of aspirin; Z79.02 Long term (current) use of antithrombotics/antiplatelets; Z95.9 Presence of cardiac and vascular implant and graft, unspecified; Z87.442 Personal history of urinary calculi
CPT/HCPCS: 36415; 71046; 80053; 83735; 85025; 86141; 96361; 96374; 96375; 96376

== ENCOUNTER → 2018-07-10 | Outpatient (CLI) | payer MEDICAID ==
[~2018-07-10] MED LIST changes: +METO200T48; +lantus
[2018-07-10 17:52] LABS: HEMOGLOBIN 9.1 G/DL (13.3-17.7); MEAN PLATELET VOLUME 10.6 FL (7.4-10.4); RED CELL DISTRIBUTION WIDTH 17.3 % (10.0-14.5)
[2018-07-10 18:08] LABS: ALBUMIN 3.9 GM/DL (3.2-4.5); CREATININE SERUM 8.63 MG/DL (0.60-1.30); PHOSPHORUS 5.5 MG/DL (2.3-4.7); POTASSIUM 5.2 MMOL/L (3.6-5.0); URIC ACID 5.6 MG/DL (2.6-7.2)
== END ==
LOC: LAB 17:15
PROVIDERS: ATTEND Internal Medicine Nephrology
DX: I12.9 Hypertensive chronic kidney disease with stage 1 through stage 4 chronic kidney disease, or unspecified chronic kidney disease (principal); E11.22 Type 2 diabetes mellitus with diabetic chronic kidney disease; N18.3 Chronic kidney disease, stage 3 (moderate); N17.9 Acute kidney failure, unspecified; R80.9 Proteinuria, unspecified; N20.0 Calculus of kidney; R60.9 Edema, unspecified
CPT/HCPCS: 36415; 80069; 84550; 85027

== ENCOUNTER → 2018-07-31 | Outpatient (CLI) | payer MEDICAID ==
[2018-07-31 17:34] LABS: BASOPHILS # (AUTO) 0.1 10^3/uL (0.0-0.1); BASOPHILS % (AUTO) 1 % (0-10); EOSINOPHILS # (AUTO) 0.2 10^3/uL (0.0-0.3); EOSINOPHILS % (AUTO) 2 % (0-10); HEMATOCRIT 29 % (40-54); HEMOGLOBIN 9.4 G/DL (13.3-17.7); LYMPHOCYTES % (AUTO) 17 % (12-44); MEAN CORPUSCULAR HEMOGLOBIN 26 PG (25-34); MEAN CORPUSCULAR HGB CONC 32 G/DL (32-36); MEAN CORPUSCULAR VOLUME 81 FL (80-99); MEAN PLATELET VOLUME 10.7 FL (7.4-10.4); MONOCYTES # (AUTO) 0.6 X 10^3 (0.0-1.0); MONOCYTES % (AUTO) 5 % (0-12); NEUTROPHILS # (AUTO) 8.7 X 10^3 (1.8-7.8); NEUTROPHILS % (AUTO) 75 % (42-75); PLATELET COUNT 212 10^3/uL (130-400); RED CELL DISTRIBUTION WIDTH 17.7 % (10.0-14.5); WHITE BLOOD COUNT 11.6 10^3/uL (4.3-11.0)
[2018-07-31 17:48] LABS: ALBUMIN 3.7 GM/DL (3.2-4.5); CALCIUM 8.2 MG/DL (8.5-10.1); CREATININE SERUM 8.67 MG/DL (0.60-1.30); PHOSPHORUS 4.4 MG/DL (2.3-4.7); POTASSIUM 4.5 MMOL/L (3.6-5.0); URIC ACID 6.5 MG/DL (2.6-7.2)
== END ==
LOC: LAB 16:52
PROVIDERS: ATTEND Internal Medicine Nephrology
DX: I12.9 Hypertensive chronic kidney disease with stage 1 through stage 4 chronic kidney disease, or unspecified chronic kidney disease (principal); E11.22 Type 2 diabetes mellitus with diabetic chronic kidney disease; N18.3 Chronic kidney disease, stage 3 (moderate); R80.9 Proteinuria, unspecified; N20.0 Calculus of kidney; N17.9 Acute kidney failure, unspecified; R60.9 Edema, unspecified
CPT/HCPCS: 36415; 80069; 84550; 85025

== ENCOUNTER → 2018-08-14 | Outpatient (CLI) | payer MEDICAID ==
[2018-08-14 14:10] LABS: HEMOGLOBIN 9.6 G/DL (13.3-17.7); MEAN PLATELET VOLUME 9.8 FL (7.4-10.4); RED CELL DISTRIBUTION WIDTH 17.5 % (10.0-14.5); WHITE BLOOD COUNT 11.1 10^3/uL (4.3-11.0)
[2018-08-14 14:32] LABS: ALBUMIN 3.6 GM/DL (3.2-4.5); CALCIUM 7.5 MG/DL (8.5-10.1); CREATININE SERUM 8.27 MG/DL (0.60-1.30); PHOSPHORUS 4.3 MG/DL (2.3-4.7); POTASSIUM 4.6 MMOL/L (3.6-5.0); URIC ACID 11.3 MG/DL (2.6-7.2)
== END ==
LOC: LAB 13:47
PROVIDERS: ATTEND Internal Medicine Nephrology
DX: E11.22 Type 2 diabetes mellitus with diabetic chronic kidney disease (principal); I12.9 Hypertensive chronic kidney disease with stage 1 through stage 4 chronic kidney disease, or unspecified chronic kidney disease; N18.3 Chronic kidney disease, stage 3 (moderate); N17.9 Acute kidney failure, unspecified; R80.9 Proteinuria, unspecified; N20.0 Calculus of kidney; R60.9 Edema, unspecified
CPT/HCPCS: 36415; 80069; 84550; 85027

== ENCOUNTER → 2018-09-04 | Outpatient (CLI) | payer MEDICAID | LOC: LAB 19:23 | PROVIDERS: ATTEND Internal Medicine Nephrology | DX: I12.9 Hypertensive chronic kidney disease with stage 1 through stage 4 chronic kidney disease, or unspecified chronic kidney disease (principal); E11.22 Type 2 diabetes mellitus with diabetic chronic kidney disease; N18.3 Chronic kidney disease, stage 3 (moderate); N20.0 Calculus of kidney; N17.9 Acute kidney failure, unspecified; R60.9 Edema, unspecified; Z53.8 Procedure and treatment not carried out for other reasons ==

== ENCOUNTER → 2018-09-07 | Outpatient (CLI) | payer MEDICAID ==
[2018-09-07 16:38] LABS: BASOPHILS # (AUTO) 0.1 10^3/uL (0.0-0.1); BASOPHILS % (AUTO) 1 % (0-10); EOSINOPHILS # (AUTO) 0.2 10^3/uL (0.0-0.3); EOSINOPHILS % (AUTO) 1 % (0-10); HEMATOCRIT 30 % (40-54); HEMOGLOBIN 9.5 G/DL (13.3-17.7); LYMPHOCYTES % (AUTO) 11 % (12-44); MEAN CORPUSCULAR HEMOGLOBIN 26 PG (25-34); MEAN CORPUSCULAR HGB CONC 32 G/DL (32-36); MEAN CORPUSCULAR VOLUME 81 FL (80-99); MONOCYTES # (AUTO) 0.9 X 10^3 (0.0-1.0); MONOCYTES % (AUTO) 6 % (0-12); NEUTROPHILS # (AUTO) 13.9 X 10^3 (1.8-7.8); NEUTROPHILS % (AUTO) 81 % (42-75); PLATELET COUNT 259 10^3/uL (130-400); RED CELL DISTRIBUTION WIDTH 17.5 % (10.0-14.5); WHITE BLOOD COUNT 17.1 10^3/uL (4.3-11.0)
[2018-09-07 16:59] LABS: ALBUMIN 3.9 GM/DL (3.2-4.5); CREATININE SERUM 9.46 MG/DL (0.60-1.30); PHOSPHORUS 5.7 MG/DL (2.3-4.7); URIC ACID 5.8 MG/DL (2.6-7.2)
[2018-09-07 17:14] LABS: ANISOCYTOSIS SLIGHT; BAND NEUTROPHILS 1 %; BASOPHILS % (MANUAL) 0 %; EOSINOPHILS % (MANUAL) 0 %; LYMPHOCYTES % (MANUAL) 14 %; MONOCYTES % (MANUAL) 4 %; NEUTROPHILS % (MANUAL) 81 %; TARGET CELLS SLIGHT
[2018-09-07 17:16] LABS: HYPOCHROMASIA SLIGHT
== END ==
LOC: LAB 16:01
PROVIDERS: ATTEND Internal Medicine Nephrology
DX: E11.22 Type 2 diabetes mellitus with diabetic chronic kidney disease (principal); I12.9 Hypertensive chronic kidney disease with stage 1 through stage 4 chronic kidney disease, or unspecified chronic kidney disease; N18.3 Chronic kidney disease, stage 3 (moderate); N20.0 Calculus of kidney; N17.9 Acute kidney failure, unspecified; R80.9 Proteinuria, unspecified; R60.9 Edema, unspecified
CPT/HCPCS: 36415; 80069; 84550; 85007; 85027

== ENCOUNTER → 2018-09-13 | Outpatient (CLI) | payer MEDICAID ==
[2018-09-13 14:31] LABS: BASOPHILS # (AUTO) 0.1 10^3/uL (0.0-0.1); BASOPHILS % (AUTO) 1 % (0-10); EOSINOPHILS # (AUTO) 0.3 10^3/uL (0.0-0.3); EOSINOPHILS % (AUTO) 2 % (0-10); HEMATOCRIT 30 % (40-54); HEMOGLOBIN 9.9 G/DL (13.3-17.7); LYMPHOCYTES # (AUTO) 1.7 X 10^3 (1.0-4.0); LYMPHOCYTES % (AUTO) 14 % (12-44); MEAN CORPUSCULAR HEMOGLOBIN 26 PG (25-34); MEAN CORPUSCULAR HGB CONC 33 G/DL (32-36); MEAN CORPUSCULAR VOLUME 80 FL (80-99); MONOCYTES # (AUTO) 0.6 X 10^3 (0.0-1.0); MONOCYTES % (AUTO) 5 % (0-12); NEUTROPHILS # (AUTO) 9.4 X 10^3 (1.8-7.8); NEUTROPHILS % (AUTO) 78 % (42-75); PLATELET COUNT 253 10^3/uL (130-400); RED CELL DISTRIBUTION WIDTH 17.1 % (10.0-14.5); WHITE BLOOD COUNT 12.1 10^3/uL (4.3-11.0)
[2018-09-13 14:37] LABS: ALBUMIN 3.5 GM/DL (3.2-4.5); CALCIUM 8.2 MG/DL (8.5-10.1); CREATININE SERUM 9.4 MG/DL (0.60-1.30); PHOSPHORUS 5.3 MG/DL (2.3-4.7); POTASSIUM 4.9 MMOL/L (3.6-5.0)
[2018-09-14 08:04] LABS: HEPATITIS C ANTIBODY C Non-Reactive (Non-Reactive)
== END ==
LOC: LAB 14:01
PROVIDERS: ATTEND Internal Medicine Nephrology
DX: E11.22 Type 2 diabetes mellitus with diabetic chronic kidney disease (principal); I12.9 Hypertensive chronic kidney disease with stage 1 through stage 4 chronic kidney disease, or unspecified chronic kidney disease; N18.3 Chronic kidney disease, stage 3 (moderate); N20.0 Calculus of kidney; N17.9 Acute kidney failure, unspecified
CPT/HCPCS: 36415; 80069; 80074; 85025

== ENCOUNTER 2019-07-04 09:47 | Emergency (ER) | payer MEDICAID ==
[~2019-07-04] VITALS: Ht 185.4 cm; Wt 111.0 kg
[~2019-07-04 09:47] MED LIST changes: -INDO50CA11 PO; +INDO50CA82 PO; +OMEP40CA27 PO; -OMEP40CA36 PO
--- OUTSIDE RECORDS SUMMARY | 2019-07-04 10:11 | XMS REPORT | Clinical Summary ---
Author Author [facility] Organization [facility] Address Unknown Phone Unavailable Care Team Providers Care Debug Technician Name Role Phone Heidy Beltran APRN PCP Brandon Valadez MD Unavailable Source Comments Some departments are not documenting in the electronic medical record. If you d o not see the information that you expected, contact Release of Information in [facility] [employer] Information Management department at [phone] for further assistan ce in locating additional records.[facility] Allergies Not on File Medications Not on file Active Problems Not on file Encounters Care Team Description Date Type Specialty Marcella Paul Transplant Referral (Status Update) 06/29/2019 Telephone Transplant Surgery Heather Farley Transplant Referral (Status Update to [facility]) 06/29/2019 Telephone Transplant Surgery Marcella Paul Transplant Referral (Status Update) 05/25/2019 Telephone Transplant Surgery Irene Vega Financial/Insurance Questions (Transplan t Benefits for 2019) 05/22/2019 Telephone Transplant Surgery Mora Walter, pressure washer Referral (TC to patient with f/u questions) 05/15/2019 Telephone Transplant Surgery Marcella Paul Transplant Referral (Status Update) 04/30/2019 Telephone Transplant Surgery Marcella Paul Transplant Referral (Intake Interview At tempt #3) 04/16/2019 Telephone Transplant Surgery Marcella Paul Transplant Referral (Intake Interview At tempt #2) 04/09/2019 Telephone Transplant Surgery from Last 3 Months [...] Health Maintenance Due Date Last Done Comments HIV SCREENING 08/06/1982 DTAP/TDAP VACCINES (1 - 08/06/1985 Tdap) HEPATITIS C SCREENING 08/06/1985 PHYSICAL (COMPREHENSIVE) 08/06/1985 EXAM COLORECTAL CANCER 08/06/2017 SCREENING SHINGLES RECOMBINANT 08/06/2017 VACCINE (1 of 2) INFLUENZA VACCINE 11/29/2019 Results Not on filefrom Last 3 Months Insurance Type Payer Benefit Subscriber ID Effective Phone Address Plan / Dates Group Medicaid UHC MEDICAID [place] UHC xxxxxxxxxxx 2018-P COMMUNITY resent PLAN [place] Advance Directives 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
--- OUTSIDE RECORDS SUMMARY | 2019-07-04 10:11 | XMS REPORT | Encounter Summary ---
Author Author [facility] Organization [facility] Address Unknown Phone Unavailable Care Team Providers Care Senior Cisco Network Engineer Name Role Phone Heidy Beltran APRN PCP Brandon Valadez MD Unavailable Reason for Visit * Reason Comments Transplant Referral Intake Interview Attempt #1 Encounter Details Care Team Description Date Type Department Marcella Paul Transplant Referral (Intake Interview At tempt #1) 04/03/[address] [address] Social History Date Tobacco Use [...]
--- OUTSIDE RECORDS SUMMARY | 2019-07-04 10:11 | XMS REPORT | Encounter Summary ---
Author Author [facility] Organization [facility] Address Unknown Phone Unavailable Care Team Providers Care Knife Finisher Name Role Phone Heidy Beltran APRN PCP Brandon Valadez MD Unavailable Reason for Visit * Reason Comments Transplant Referral TC to patient with f/u ques tions Encounter Details Care Team Description Date Type Department Mora Walter RN Transplant Referral (TC to patient with f/u questions) 05/15/[address] Tele[address] [id number] Social History Date Tobacco Use Types Packs/Day Years Used Never Assessed Sex Assigned at Date Recorded Not on file Industry Job Start Date Occupation Not on file Not on file Not on file Travel End Travel History Travel Start No recent travel history available. documented as of this encounter Miscellaneous Notes * Telephone Encounter - Marcella Paul - 05/16/2019 8:03 AM CDT Records Request- Information Requested: Cath, Echo, Stress, Last Clinic Note DOS 2018 From: Dr. Valadez documented in this encounter Plan of Treatment Not on filedocumented as of this encounter Visit Diagnoses Not on filedocumented in this encounter
--- OUTSIDE RECORDS SUMMARY | 2019-07-04 10:11 | XMS REPORT | Encounter Summary ---
Author Author [facility] Organization [facility] Address Unknown Phone Unavailable Care Team Providers Care Behavioral Health Tech Name Role Phone Heidy Beltran APRN PCP Brandon Valadez MD Unavailable Reason for Visit * Reason Comments Financial/Insurance Transplant Benefits for 0 Questions Encounter Details Care Team Description Date Type Department Irene Vega Financial/Insurance Questions (Transplan t Benefits for 2019) 05/22/2019 Telephone [address] [phone] Social History Date Tobacco Use Types Packs/Day Years Used Never Assessed Sex Assigned at Date Recorded Not on file Industry Job Start Date Occupation Not on file Not on file Not on file Travel End Travel History Travel Start No recent travel history available. documented as of this encounter Miscellaneous Notes * Telephone Encounter - Irene Vega - 05/22/2019 9:16 AM CDT TRANSPLANT BENEFIT COLLECTION: Verified by: Irene Middleton Date: May 21, 2019 PRIMARY ID #: [id number] EFF:11/28/18 A&B Subscriber:Self Ins Plan:Medicare A&B Phone#:[phone] Plan Type:Traditional MEDICARE A&B - 2020 BENEFIT SUMMARY: PART A: DAYS REFRESH AFTER 60 CONSECUTIVE OUTPT DAYS DAYS 1-60 $1408 DEDUCTIBLE DAYS 61-90 $352/DAY COPAY DAYS 91-150 (USING ANY LIFETIME RESERVE DAYS) $704DAY COPAY DAYS > 150 PT PORTION 100%; after a 3-day minimum medically necessary inpatient hospital stay for a related illness or injury. PART A/ SNF BENEFITS: IN 2020: DAYS 1-20 PT PORTION $0; DAYS 21-100 $176/DAY WOMEN'S LACROSSE COACH AY; DAYS > 100 PT PORTION 100% PART B / BENEFITS IN 2020: DEDUCTIBLE $198 WITH 80% REIMBURSEMENT OF ALLOWABLE, NO OUT OF POCKET MAXIMUM MEDICARE WILL PAY FOR DRUGS INFUSED THROUGH AN ITEM OF DME, LIKE AN INFUSION PUM P, OR DRUGS GIVEN BY A NEBULIZER WHEN GIVEN BY A LICENSED MEDICAL PROVIDER. PART B WILL COVER IMMUNOSUPPRESSIVE DRUGS IF COVERED THE TRANSPLANT, EVEN SECONDARY PAYER No Case Management, No transplant Network, No prior authorizations, No benefit l amado Reference Number: [id number] PART D RX Plan:[employer] Phone #: [phone] Co-Pay Structure:$1.30 - $3.90 Current Subsidy: LIS Level 2 100% Dual Extra Help Valcyte:$3.90 Generic:$1.30 Spoke to Ander Ref.#[id number] SECONDARY ID #: [id number] Subscriber:Self Ins Plan:[employer] Phone#:[phone] Plan Type:[facility] Nabsys (prev [place] Medicaid):No SpendDown Reported as of 05/22/19 $48 INPT ADMIT COPAY PENITENTIARY/BUILDING COORDINATOR CARE [phone] OUTPT HOSPITAL $3/VISIT SURGICENTER $3/DOS OUTPT REHAB $1/VISIT DME $3/CLAIM HHC $3/VISIT NON-EMERGENCY TRANSPORT OR AMBULANCE $3/DOS OV $2/COPAY MENTAL HEALTH CALL [facility] [phone], $3/VISIT DENTAL $3/DOS RX $3/FILL (NO MAIL ORDER) If 2ndry to Medicare: PAYS PATTIE FOR IMMUNOS AFTER PART B IS IT COVERED? CALL [phone] Reference Number: [id number] Auth requirements:No Auth Required for Eval & Listing documented in this encounter Plan of Treatment Not on filedocumented as of this encounter Visit Diagnoses Not on filedocumented in this encounter
--- OUTSIDE RECORDS SUMMARY | 2019-07-04 10:11 | XMS REPORT | Encounter Summary ---
Author Author [facility] Organization [facility] Address Unknown Phone Unavailable Care Team Providers Care Oiler Helper Name Role Phone Heidy Beltran APRN PCP Brandon Valadez MD Unavailable Reason for Visit * Reason Comments Transplant Referral Status Update to Dialysis C enter Encounter Details Care Team Description Date Type Department Heather Farley Transplant Referral (Status Update to Di alysis Center) 06/29/2019 Telephone The [address] [address] Social History Date Tobacco Use [...]
--- OUTSIDE RECORDS SUMMARY | 2019-07-04 10:11 | XMS REPORT | Encounter Summary ---
Author Author [facility] Organization [facility] Address Unknown Phone Unavailable Care Team Providers Care Motor Coach Tour Operator Name Role Phone Heidy Beltran APRN PCP Brandon Valadez MD Unavailable Reason for Visit * Reason Comments Transplant Referral Intake Interview Attempt #2 Encounter Details Care Team Description Date Type Department Marcella Paul Transplant Referral (Intake Interview At tempt #2) 04/09/2019 Telephone The [address] [address] Social History Date Tobacco Use [...]
--- OUTSIDE RECORDS SUMMARY | 2019-07-04 10:11 | XMS REPORT | Encounter Summary ---
Author Author [facility] Organization [facility] Address Unknown Phone Unavailable Care Team Providers Care Recreational Therapist Name Role Phone Heidy Beltran APRN PCP Brandon Valadez MD Unavailable Reason for Visit * Reason Comments Transplant Referral Intake Interview Attempt #3 Encounter Details Care Team Description Date Type Department Marcella Paul Transplant Referral (Intake Interview At tempt #3) 04/16/[address] Telephone [address] [address] Social History Date Tobacco Use Types Packs/Day Years Used Never Assessed Sex Assigned at Date Recorded Not on file Industry Job Start Date Occupation Not on file Not on file Not on file Travel End Travel History Travel Start No recent travel history available. documented as of this encounter Miscellaneous Notes * Telephone Encounter - Marcella Paul - 04/16/2019 12:21 PM NUTRITION REPRESENTATIVE New Referral Intake TO PATIENT: Thank you for contacting us, how did you hear about our transplant program? Neph Is Ecuadorean your primary language? Yes Who is your kidney doctor? Dr. aCnales Who is your primary doctor? Dr. Beltran Have you had a hospitalization in the past 6 months? No Past Medical History: (if answer is yes, please specify) How tall are you? 6 1 How much do you weigh? 240 Calculated BMI: 31.7 What is the cause of your kidney disease? Diabetes Are you diabetic? Type unknown to patient at what age were you diagnosed (Detailer)? 15 years ago Are you currently on dialysis? Yes Type/Start date/ Schedule: HD, MWF, 09/19/18 What center: [facility] Have you been denied or listed by another transplant center? No Are you currently working with any other transplant centers? No Have you had a previous organ transplant? No History of: Heart disease? No Do you have a heart doctor? No History of heart stents? 2, 7-8 years Are you on medication to keep stents open (ex. Coumadin, Plavix, Brilinta)? Reyes vix Are you on medication to help raise your blood pressure (Midodrine)? No Lung disease? No Are you on oxygen (How many liters)? No Do you wear CPAP (breathing machine at night to sleep)? No Do you use tobacco or nicotine products or have you in the past? Currently smo kes Packs/cans per day? 1 pack lasts 2 1/2 days for years? 30 When did you quit? N A, educated that he would need to quit and he understood Do you use any illegal substances or have you in the past? Stopped marijuana 5 years TO PATIENT: If you currently smoke, you need to quit to be considered a transpla nt candidate. Liver disease? No History of HIV or Hepatitis? No Cancer? No Any active infections? No open wounds or sores? No Psychiatric illness (Depression/Anxiety/Bipolar Disorder)? No Do you see a psychiatrist or counselor? No Do you use a cane/walker/ other assistive devices to get around? No Past Surgical History: Have you had any abdominal surgeries? No Have you had any surgeries on blood vessels? No Have you had any amputations? No Would you accept a lifesaving blood transfusion? Yes Demographic and Social History: What gender were you assigned at ? Male What gender do you identify with currently? Male What race do you identify with? Primary Insurance Company: Medicare Policy #: [id number] Secondary Insurance Company: [facility] Lift Policy #: [id number] Do you have a support person who will be with you before, during, and after a tr ansplant?Yes Name and Relationship of Support Person: Uzma Collins Do you have an interest living donors? No If so, they are welcome to come to evaluation with you. We may need you to sign a Release of Information Authorization Form. Do you have access to a fax machine or an e-mail address we can send it to? Send to dialysis TO PATIENT: You will need to bring your support person with you to the transplan t evaluation. This is required to be considered a candidate for transplant. If you have interested living donors, they are welcome to come with you, as well. Note to staff - Obtain the following records: nephrology note hospital discharge summary within 6 month (or most recent) pathology report Notify Dr. Tee if delay in scheduling due to lack of records If patient has possible living donor - have them call: Walter - [phone] Ana - [phone] ITION REPRESENTATIVE documented in this encounter Plan of Treatment Not on filedocumented as of this encounter Visit Diagnoses Not on filedocumented in this encounter
--- OUTSIDE RECORDS SUMMARY | 2019-07-04 10:11 | XMS REPORT | Encounter Summary ---
Author Author [facility] Organization [facility] Address Unknown Phone Unavailable Care Team Providers Care Credit Underwriter Name Role Phone Heidy Beltran APRN PCP Brandon Valadez MD Unavailable Reason for Visit * Reason Comments Transplant Referral Status Update Encounter Details Care Team Description Date Type Department Marcella Paul Transplant Referral (Status Update) 04/30/2019 Telephone The [address] [address] Social History Date Tobacco Use [...]
--- OUTSIDE RECORDS SUMMARY | 2019-07-04 10:11 | XMS REPORT | Encounter Summary ---
Author Author [facility] Organization [facility] Address Unknown Phone Unavailable Care Team Providers Care Retort Firer Name Role Phone eHidy Beltran APRN PCP Brandon Valadez MD Unavailable Reason for Visit * Reason Comments Transplant Referral Status Update Encounter Details Care Team Description Date Type Department Marcella Paul Transplant Referral (Status Update) 05/25/2019 Telephone The [address] [address] Social History Date Tobacco Use [...]
--- OUTSIDE RECORDS SUMMARY | 2019-07-04 10:11 | XMS REPORT | Encounter Summary ---
Author Author [facility] Organization [facility] Address Unknown Phone Unavailable Care Team Providers Care Tissue Packer Name Role Phone Heidy Beltran APRN PCP Brandon Valadez MD Unavailable Reason for Visit * Reason Comments Transplant Referral Status Update Encounter Details Care Team Description Date Type Department Marcella Paul Transplant Referral (Status Update) 06/29/2019 Telephone The [address] [address] Social History Date Tobacco Use [...]
--- OUTSIDE RECORDS SUMMARY | 2019-07-04 10:12 | XMS REPORT ---
Author Author Charles MUJICA [facility] Address [address] [place] [address] Care Team Providers Care License Registration Examiner Name Role Phone CHAPARRO MUJICA Unavailable PROBLEMS Type Condition ICD9-CM Code DXU90-AM Code Onset Dates Condition S tatus SNOMED Code Problem jail 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 Active 544014407 Problem Insomnia, unspecified G47.00 Active 657980848 Problem Chronic kidney disease, stage 3 N18.3 Active 161517011 Problem 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 467560374 Problem Gout of left knee due to renal impairment, unspe cified chronicity M10.362 Active 658048258 Problem Mood disorder F39 Active 484547 05 Problem Essential hypertension I10 Active 45384665 Problem Primary osteoarthritis of left knee M17.12 Active [id number] Problem Kidney stone N20.0 Active 0295943 7 Problem Proteinuria R80.9 Active 19119185 Problem Sinusitis J32.9 Active 68794356 Problem Dependence on renal dialysis Z99.2 A ctive 823517303 Problem Delayed gastric emptying K30 Activ e 552912327 Problem Gastroesophageal reflux disease, esophagitis pre sence not specified K21.9 Active 892895808 Problem End stage renal disease N18.6 Active 06333984 Problem Chronic kidney disease, stage V (very severe) N18. 5 Active 386319063 Problem Hypertriglyceridemia E78.1 Active 976960260 Problem Coronary atherosclerosis of unspecified type of vessel, [place] or graft I25.10 Active 580982205 Problem End stage kidney disease N18.6 Activ e 18289788 Problem Type 2 diabetes mellitus with hyperglycemia E11.65 Active 911218779157616 Problem Hypoglycemia E16.2 Active 5672666 03 Problem Diabetes E11.9 Active 054246964 ALLERGIES No Information ENCOUNTERS Encounter Location Date Diagnosis [facility] [address] [facility] [id number] [address] [address] May, [facility] [address] [place] [id number] [address] [place] [id number] Apr, Pseudogout M11.20 [facility] [address] [facility] [id number] [address] [place] [id number] 16 Apr, 2019 Type 2 diabetes mellitus wit h diabetic nephropathy E11.21 and Other viral warts B07.8 [facility] [address] [place] [id number] [address] [place] [address] Jan, Other viral warts B07.8 ; Di abetes E11.9 ; Dependence on renal dialysis Z99.2 and End stage renal disease N18.6 [facility] [address] [place] [id number] [address] [place] [address] Oct, Type 2 diabetes mellitus wit h diabetic nephropathy E11.21 ; Hypoglycemia E16.2 and Dermatofibroma D23.9 [place] [id number] [place] [address] Oct, [facility] [address] [place] [id number] [address] [place] [address] Jul, Type 2 diabetes mellitus wit h hyperglycemia E11.65 [facility] [address] [place] [id number] [address] [place] [id number] Jul, Type 2 diabetes mellitus wit h hyperglycemia E11.65 [facility] [address] [place] [address] Jul, Type 2 diabetes mellitus wit h hyperglycemia E11.65 [facility] [address] [place] [id number] [address] [place] [address] June, Type 2 diabetes mellitus wit h hyperglycemia E11.65 ; End stage kidney disease N18.6 and Callus L84 [facility] [address] [facility] [id number] [address] [place] [phone] May, [facility] [address] [place] [id number] [address] [place] [address] May, Essential hypertension I10 [facility] [address] [facility] [id number] [address] [place] [address] Apr, [facility] [address] [facility] [id number] [address] [address] Apr, Type 2 diabetes mellitus wit h hyperglycemia E11.65 and Essential hypertension I10 [facility] [address] [facility] [id number] [address] [address] Apr, [facility] [address] [facility] [id number] [address] [address] Apr, Type 2 diabetes mellitus wit h hyperglycemia E11.65 [place] [address] [address] Apr, [place] [address] [address] Mar, Type 2 diabetes mellitus wit h hyperglycemia E11.65 [place] [address] [address] Mar, Type 2 diabetes mellitus wit h diabetic nephropathy E11.21 ; End stage kidney disease N18.6 ; Callus L84 and Onychomycosis B35.1 [place] [address] [place] [id number] [place] [address] Feb, [facility] [address] [address] Feb, Sinusitis J32.9 ; Nausea R11 .0 and Otalgia H92.09 [facility] [address] [address] Jan, [facility] [address] [address] Jan, [place] [address] [address] Jan, Essential hypertension I10 ; Gout, unspecified M10.9 ; Coronary atherosclerosis of unspecified type of vessel, [place] or graft I25.10 ; Mixed hyperlipidemia E78.2 and Type 2 diabetes mellitus with hyperglycemia E11.65 [place] [address] [address] Dec, Chronic kidney disease, stag e 3 N18.3 ; Proteinuria R80.9 ; Diabetes mellitus E11.9 ; Acute kidney failure, unspecified N17.9 and Mixed hyperlipidemia E78.[address] [address] 16 Dec, 2017 Chronic kidney disease, stag e 3 N18.3 ; Essential hypertension I10 ; Proteinuria R80.9 ; Diabetes mellitus E11.9 ; Kidney stone N20.0 ; Acute kidney failure, unspecified N17.9 ; Edema R60.9 and Mixed hyperlipidemia E78.2 [place] [address] [address] Dec, Type 2 diabetes mellitus wit h hyperglycemia E11.65 [place] [address] [address] Dec, Chronic kidney disease, stag e 3 N18.3 [place] [address] [address] Dec, Type 2 diabetes mellitus wit h hyperglycemia E11.65 [place] [address] [address] Dec, [place] [address] [address] Nov, Type 2 diabetes mellitus wit h hyperglycemia E11.65 [place] [address] [address] Nov, [place] [address] [address] Nov, Chronic kidney disease, stag e V (very severe) N18.5 ; Type 2 diabetes mellitus with hyperglycemia E11.65 ; Encounter for immunization Z23 and Delayed gastric emptying K30 [address] [address] Nov, [place] [address] [address] Oct, Essential hypertension I10 ; Coronary atherosclerosis of unspecified type of vessel, [place] or graft I25.10 ; Type 2 diabetes mellitus with hyperglycemia E11.65 and Gout, unspecified M10.9 [place] [address] [address] Oct, Chronic kidney disease, stag e V (very severe) N18.5 [place] [address] [address] Oct, Mixed hyperlipidemia E78.2 [place] [address] [address] Sep, Type 2 diabetes mellitus wit h hyperglycemia E11.65 [place] [address] [address] Sep, Mixed hyperlipidemia E78.2 [place] [address] [address] Sep, Chronic kidney disease, stag e V (very severe) N18.5 [place] [address] [address] Sep, Type 2 diabetes mellitus wit h hyperglycemia E11.65 and Essential hypertension I10 [place] [address] [address] Sep, Type 2 diabetes mellitus wit h hyperglycemia E11.65 [place] [address] [address] Aug, Gout, unspecified M10.9 ; Ga stroesophageal reflux disease, esophagitis presence not specified K21.9 ; Mood disorder F39 and Coronary atherosclerosis of unspecified type of vessel, [place] or graft I25.10 [place] [address] [address] Aug, [facility] [address] [facility] [id number] [address] [place] [address] June, Type 2 diabetes mellitus wit h hyperglycemia E11.65 [place] [address] [facility] [id number] [address] [place] [address] 18 May, 2017 Mood disorder F39 ; Gastroes ophageal reflux disease, esophagitis presence not specified K21.9 ; Gout, unspecified M10.9 ; Coronary atherosclerosis of unspecified type of vessel, [place] or graft I25.10 and Type 2 diabetes mellitus with hyperglycemia E11.65 [place] [address] [facility] [id number] [address] [place] [address] May, Type 2 diabetes mellitus wit h hyperglycemia E11.65 [place] [address] [facility] [id number] [address] [place] [address] Apr, Diabetes E11.9 and Mood diso rder F39 [place] [address] [facility] [id number] [address] [place] [address] 15 Mar, 2017 Primary osteoarthritis of le ft knee M17.12 and Tear of lateral meniscus of left knee, unspecified tear type, unspecified whether old or current tear, initial encounter S83.282A [place] [address] [place] [id number] [place] [address] Feb, Mood disorder F39 [place] [address] [facility] [id number] [address] [place] [address] Feb, Pseudogout M11.20 [place] [address] [facility] [id number] [address] [place] [address] Jan, Other mcfp (current) dr anna mendosa Z79.899 [facility] [address] [facility] [id number] [address] [place] [address] Jan, [facility] [address] 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 [place] [address] [address] Jan, Gout of left knee due to eloisa al impairment, unspecified chronicity M10.362 ; Type 2 diabetes mellitus with diabetic nephropathy E11.21 ; Synovial cyst of popliteal space [Mejia], left knee M71.22 and Low back pain M54.5 [place] [address] [address] Dec, Pseudogout M11.20 [place] [address] [address] Dec, [place] [address] [address] Dec, Type 2 diabetes mellitus wit h diabetic nephropathy E11.21 and Right anterior knee pain M25.561 [place] [address] [place] [id number] [place] [address] Nov, Pseudogout M11.20 [place] [address] [address] Nov, Pseudogout M11.20 ; Chronic kidney disease, stage 3 N18.3 ; Mixed hyperlipidemia E78.2 ; Gout, unspecified M10.9 ; Coronary atherosclerosis of unspecified type of vessel, [place] or graft I25.10 ; Mood disorder F39 and Gastroesophageal reflux disease, esophagitis presence not specified K21.9 [place] [address] [place] [id number] [place] [address] Nov, [place] [address] [place] [id number] [place] [address] Oct, Pseudogout M11.20 [place] [address] [place] [id number] [place] [address] Sep, Pseudogout M11.20 [place] [address] [address] Sep, Pseudogout M11.20 [facility] [address] [facility] [id number] [address] [place] [address] Sep, [facility] [id number] [place] [id number] Aug, [place] [address] [place] [id number] [place] [address] Aug, Diabetes E11.9 ; Chronic kid tahir disease, stage 3 N18.3 ; Hyperuricemia E79.0 ; Mixed hyperlipidemia E78.2 ; Gastroesophageal reflux disease, esophagitis presence not specified K21.9 ; Gout, unspecified M10.9 ; Coronary atherosclerosis of unspecified type of vessel, [place] or graft I25.10 and Mood disorder F39 [place] [address] [place] [id number] [place] [address] June, [place] [address] [address] June, [facility] [address] [place] [id number] [address] [place] [address] June, [facility] [address] [address] May, Chronic renal failure, stage 3 (moderate) N18.3 [place] [address] [place] [id number] [address] [place] [address] May, Diabetes E11.9 [facility] [address] [place] [id number] [address] [place] [address] May, [place] [address] [place] [id number] [place] [address] Apr, [facility] [address] [place] [id number] [address] [place] [address] Apr, [facility] [address] [place] [id number] [address] [place] [address] Apr, Cellulitis of right lower ex tremity L03.115 and Diabetes E11.9 [facility] [address] [facility] [id number] [address] [place] [address] Apr, Type 2 diabetes mellitus wit h hyperglycemia E11.65 [facility] [address] [facility] [id number] [address] [place] [address] Mar, Cellulitis of right lower ex tremity L03.115 and Low back pain M54.5 [facility] [address] [facility] [id number] [address] [place] [address] Mar, [place] [address] [facility] [id number] [address] [place] [address] Mar, Cellulitis of right lower ex tremity L03.115 [place] [address] [facility] [id number] [address] [place] [address] Mar, Cellulitis of right lower ex tremity L03.115 [place] [address] [facility] [id number] [address] [place] [address] Feb, Cellulitis of right lower ex tremity L03.115 [place] [address] [facility] [id number] [address] [place] [address] Feb, Cellulitis of right lower ex tremity L03.115 [place] [address] [place] [id number] [place] [address] Feb, [place] [address] [facility] [id number] [address] [place] [address] Feb, Leukocytosis, unspecified ty pe D72.829 ; Chronic renal failure, stage 3 (moderate) N18.3 and Type 2 diabetes mellitus with hyperglycemia E11.65 [facility] [address] [facility] [id number] [address] [place] [address] Feb, Leukocytosis, unspecified ty pe D72.829 [place] [address] [place] [id number] [place] [address] Feb, [place] [address] [id number] [address] [place] [address] Feb, Cellulitis of right lower ex tremity L03.115 ; Thrush B37.0 ; Gout of left knee due to renal impairment, unspecified chronicity M10.362 and Chronic renal failure, stage 3 (moderate) N18.3 [place] [address] [id number] [address] [place] [address] Feb, [place] [address] [facility] [id number] [address] [place] [address] Feb, Right foot infection L08.9 ; Type 2 diabetes mellitus with hyperglycemia E11.65 ; Arthralgia of left knee M25.562 ; Chronic kidney disease, stage 3 N18.3 and Diabetes E11.9 [place] [address] [facility] [id number] [address] [place] [address] Feb, [place] [address] [facility] [id number] [address] [place] [address] Feb, Diabetes E11.9 ; Arthralgia of left knee M25.562 and Thrush B37.0 [place] [address] [facility] [id number] [address] [place] [address] Jan, [place] [address] [facility] [id number] [address] [place] [address] Jan, Type 2 diabetes mellitus wit h hyperglycemia E11.65 ; Chronic renal failure, stage 3 (moderate) N18.3 and Leukocytosis, unspecified type D72.829 [place] [address] [facility] [id number] [address] [place] [address] Jan, Type 2 diabetes mellitus wit h hyperglycemia E11.65 [place] [address] [facility] [id number] [address] [place] [address] Dec, Gout of left knee due to eloisa al impairment, unspecified chronicity M10.362 [place] [address] [facility] [id number] [address] [place] [address] Dec, Gout of left knee due to eloisa al impairment, unspecified chronicity M10.362 and Diabetes E11.9 [facility] [address] [facility] [id number] [address] [place] [address] Dec, [facility] [address] [facility] [id number] [address] [place] [address] 11 Dec, 2015 [facility] [address] [facility] [id number] [address] [place] [address] Dec, [facility] [address] [facility] [id number] [address] [place] [phone] 09 Dec, 2015 Chronic kidney disease, stag e 3 N18.3 ; Type 2 diabetes mellitus with diabetic nephropathy E11.21 ; Type 2 diabetes mellitus with hyperglycemia E11.65 and jail 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 [facility] [address] [place] [id number] [address] [place] [address] Dec, Leukocytosis, unspecified ty pe D72.829 ; Chronic renal failure, stage 3 (moderate) N18.3 and Nausea R11.0 [facility] [address] [facility] [id number] [address] [place] [address] Nov, [facility] [address] [facility] [id number] [address] [place] [address] Jul, [facility] [address] [place] [id number] [address] [place] [address] Jul, Diabetes E11.9 ; Low back pa in M54.5 and Other chronic pain G89.29 [facility] [address] [facility] [id number] [address] [place] [address] June, [facility] [address] [facility] [id number] [address] [place] [address] June, [facility] [address] [facility] [id number] [address] [place] [address] Jan, Viral illness B34.9 [facility] [address] [place] [id number] [place] [address] Jan, Type 2 diabetes mellitus wit h hyperglycemia E11.65 ; Pain in right foot M79.671 and Localized edema R60.0 [facility] [address] [id number] [address] [place] [address] Jan, [facility] [address] [id number] [address] [place] [address] Dec, Right foot pain M79.671 ; In somnia, unspecified type G47.00 and Diabetes E11.9 [facility] [address] [id number] [address] [place] [address] Dec, Pain in right foot M79.671 [facility] [address] [id number] [address] [place] [address] Nov, [facility] [address] [id number] [address] [place] [phone] Sep, [facility] [address] [id number] [address] [place] [address] Sep, Diabetes mellitus, type II 2 50.00 [facility] [address] [id number] [address] [place] [phone] May, [facility] [address] [id number] [address] [place] [phone] May, [facility] [address] [id number] [address] [place] [phone] Apr, [facility] [address] [id number] [address] [place] [phone] Apr, [facility] [address] [id number] [address] [place] [address] Apr, [facility] [address] [id number] [address] [place] [phone] 16 Apr, 2014 [facility] [address] [id number] [address] [place] [phone] Apr, [facility] [address] [id number] [address] [place] [address], [place] [address] Apr, [facility] [address] [id number] [address] [place] [address], [place] [address] Apr, [facility] [address] [id number] [address] [place] [address], [place] [address] 05 Apr, 2014 [facility] [address] [id number] [address] [place] [address], [place] [address] Jan, [facility] [address] [id number] [address] [place] [address], [place] [address] Jan, [facility] [address] [id number] [address] [place] [address], [place] [address] Jan, [facility] [address] [id number] [address] [place] [address], [place] [address] Jan, [facility] [address] [id number] [address] [place] [address], [place] [address] Dec, [facility] [address] [id number] [address] [place] [address], [place] [address] Dec, [facility] [address] [id number] [address] [place] [address], [place] [address] Nov, [facility] [address] [id number] [address] [place] [address], [place] [address] Nov, [facility] [address] [id number] [address] [place] [address], [place] [address] Oct, [facility] [address] [id number] [address] [place] [address], [place] [address] Oct, [facility] [address] [id number] [address] [place] [address], [place] [address] Oct, [facility] [address] [id number] [address] [place] [address], [place] [address] 05 Oct, 2013 [facility] [address] [id number] [address] [place] [address], [place] [address] Sep, [facility] [address] [id number] [facility] [place] [address] Sep, [facility] [address] [id number] [address] [place] [address], [place] [address] Sep, [facility] [address] [id number] [address] [place] [address], [place] [address] Sep, [facility] [address] [id number] [address] [place] [address], [place] [id number] Sep, [facility] [address] [id number] [address] [place] [address], [place] [id number] Sep, [facility] [address] [id number] [address] [place] [address], [place] [id number] Sep, [facility] [address] [id number] [address] [place] [address], [place] [id number] Sep, [facility] [address] [id number] [address] [place] [address], [place] [id number] Sep, [facility] [address] [id number] [address] [place] [address], [place] [id number] Sep, [facility] [address] [id number] [address] [place] [address], [place] [id number] Sep, [facility] [address] [id number] [address] [place] [address], [place] [id number] Sep, [facility] [address] [id number] [address] [place] [address], [place] [address] Aug, [facility] [address] [id number] [address] [place] [address], [place] [id number] Aug, [facility] [address] [id number] [address] [place] [address], [place] [id number] Aug, [facility] [address] [id number] [address] [place] [address], [place] [id number] Aug, [facility] [address] [id number] [facility] [place] [address] June, [facility] [address] [id number] [address] [place] [address], [place] [id number] 24 May, 2013 [facility] [address] [id number] 95 [place] [address], [place] [id number] 24 May, 2013 [facility] [address] [id number] [address] [place] [address], [place] [id number] May, [facility] [address] [id number] [address] [place] [address], [place] [address] 18 May, 2013 [facility] [address] [id number] [address] [place] [address], [place] [address] 17 May, 2013 [facility] [address] [id number] [address] [place] [address], [place] [id number] 17 May, 2013 [facility] [address] [id number] [address] [place] [address], [place] [id number] 16 May, 2013 [facility] [address] [id number] [address] [place] [address], [place] [address] 16 May, 2013 [facility] [address] [id number] [address] [place] [address], [place] [id number] 14 May, 2013 [facility] [address] [id number] [address] [place] [address], [place] [address] 14 May, 2013 [facility] [address] [id number] [address] [place] [address], [place] [address] 14 May, 2013 [facility] [address] [id number] [address] [place] [address], [place] [id number] May, [facility] [address] [id number] [address] [place] [address], [place] [address] Apr, [facility] [address] [id number] [address] [place] [address], [place] [address] Apr, [facility] [address] [id number] [address] [place] [address], [place] [address] Mar, [facility] [address] [id number] [address] [place] [address], [place] [address] Mar, [facility] [address] [id number] [address] [place] [address], [place] [address] Dec, [facility] [address] [id number] [address] [place] [address], [place] [address] Dec, [facility] [address] [id number] [address] [place] [address], [place] [address] Dec, [facility] [address] [id number] [address] [place] [address], [place] [address] Dec, [facility] [address] [id number] [address] [place] [address], [place] [id number] Nov, [facility] [address] [id number] [address] [place] [address], [place] [id number] Nov, [facility] [address] [id number] [address] [place] [address], [place] [address] Oct, [facility] [address] [id number] [address] [place] [address], [place] [address] Oct, [facility] [address] [id number] [address] [place] [address], [place] [address] Aug, [facility] [address] [id number] [address] [place] [address], [place] [address] Aug, [facility] [address] [id number] [address] [place] [address], [place] [address] Aug, [facility] [address] [id number] [address] [place] [address], [place] [id number] Jul, [facility] [address] [id number] [address] [place] [address], [place] [address] June, [facility] [address] [id number] [address] [place] [address], [place] [address] June, [facility] [address] [id number] [address] [place] [address], [place] [address] Apr, [facility] [address] [id number] [address] [place] [address], [place] [address] Mar, [facility] [address] [id number] [address] [place] [address], [place] [address] Mar, [facility] [address] [id number] [address] [place] [address], [place] [address] Mar, [facility] [address] [id number] [address] [place] [address], [place] [address] Mar, [facility] [address] [id number] [address] [place] [address], [place] [address] Mar, [facility] [address] [id number] [address] [place] [address], [place] [address] Feb, [facility] [address] [id number] [address] [place] [address], [place] [address] Feb, [facility] [address] [id number] [address] [place] [address], [place] [address] Feb, [facility] [address] [id number] [address] [place] [address], [place] [address] Feb, [facility] [address] [id number] [address] [place] [address], [place] [address] Jan, [facility] [address] [id number] [address] [place] [address], [place] [address] Jan, [facility] [address] [id number] [address] [place] [address], [place] [address] Dec, [facility] [address] [id number] [address] [place] [address], [place] [address] Dec, [facility] [address] [id number] [address] [place] [address], [place] [address] Dec, [facility] [address] [id number] [address] [place] [address], [place] [address] Dec, [facility] [address] [id number] [address] [place] [address], [place] [address] Oct, [facility] [address] [id number] [address] [place] [address], [place] [address] Aug, [facility] [address] [id number] [address] [place] [address], [place] [address] Jul, [facility] [address] [id number] [address] [place] [address], [place] [address] June, [facility] [address] [id number] [address] [place] [address], [place] [address] June, [facility] [address] [id number] [address] [place] [address], [place] [address] June, [facility] [address] [id number] [address] [place] [address], [place] [address] June, [facility] [address] [id number] [address] [place] [address], [place] [address] June, [facility] [address] [id number] [address] [place] [address], [place] [address] May, [facility] [address] [id number] [address] [place] [address], [place] [id number] May, [facility] [address] [id number] [address] [place] [address], [place] [address] Apr, [facility] [address] [id number] [address] [place] [id number] Apr, [facility] [address] [id number] [address] [place] [address], [place] [address] Mar, [facility] [address] [id number] [address] [place] [address], [place] [address] Feb, [facility] [address] [id number] [address] [place] [address], [place] [address] Nov, [facility] [address] [id number] [address] [place] [id number] 13 Nov, 2010 [facility] [address] [id number] [address] [place] [address], [place] [address] 13 Nov, 2010 [facility] [address] [id number] [address] [place] [address], [place] [address] 17 Apr, 2010 [facility] [address] [id number] [address] [place] [address], [place] [address] 07 Jan, 2010 [facility] [address] [id number] [address] [place] [address], [place] [address] 24 Dec, 2009 [facility] [address] [id number] [address] [place] [address], [place] [address] Dec, [facility] [address] [id number] [address] [place] [address], [place] [address] 29 Nov, 2009 [facility] [address] [id number] [address] [place] [address], [place] [address] June, [facility] [address] [id number] [address] [place] [address], [place] [address] 29 Jan, 2009 [facility] [address] [id number] [address] [place] [address], [place] [address] 28 Jan, 2009 [facility] [address] [id number] [address] [place] [address], [place] [address] 23 Jan, 2009 [facility] [address] [id number] [address] [place] [address], [place] [address] 22 Jan, 2009 [facility] [address] [id number] [address] [place] [address], [place] [address] 16 Jan, 2009 [facility] [address] [id number] [address] [place] [address], [place] [address] 15 Jan, 2009 [facility] [address] [id number] [address] [place] [address], [place] [address] 15 Jan, 2009 [facility] [address] [id number] [address] [place] [address], [place] [address] 11 Jan, 2009 [facility] [address] [id number] [address] [place] [phone] Jan, [facility] [address] [id number] [address] [place] [phone] Jan, [facility] [address] [id number] [address] [place] [phone] Jan, [facility] [address] [id number] [address] [place] [id number] Jan, [facility] [address] [id number] [address] [place] [id number] Dec, [facility] [address] [id number] [address] [place] [id number] Dec, [facility] [address] [id number] [address] [place] [id number] Dec, [facility] [address] [id number] [address] [place] [phone] Dec, [facility] [address] [id number] [address] [place] [phone] Nov, [facility] [address] [id number] [address] [place] [phone] Oct, IMMUNIZATIONS No Known Immunizations SOCIAL HISTORY Never Assessed REASON FOR VISIT VMB not set up PLAN OF CARE VITAL SIGNS MEDICATIONS Unknown Medications RESULTS No Results PROCEDURES No Known procedures INSTRUCTIONS MEDICATIONS ADMINISTERED No Known Medications MEDICAL (GENERAL) HISTORY Type Description Date Medical History hyperlipidemia Medical History uric acid kidney stone (to be on lifelon g allopurinol tx) Medical History coronary artery disease [...] Medical History 11/2017 Nuclear stress test Aston TRINH Medical History 11/2017 Swallow study Severe gastropar esis. Medical History Edema Surgical History Gall stone/Kidney stone removal Surgical History Mass removal from groin Surgical History Gallbladder removal Surgical History Stents Surgical History stress test 11/2017 Surgical History stomach test--empty slowly 11/2017 Hospitalization History Surgery Hospitalization History GERD, Atypical Chest Pain, U ncontrolled DMT2, Essential HTN, CKD stage 3, Obesity 06/27/15 Hospitalization History Stent placement 06/2016 Hospitalization History addtl stent placement 07/2016 Hospitalization History Acute left knee pseudogout s tatus post joint fluid analysis-[facility] 09/20/16 Hospitalization History kidneys--Clancy 11/2017 Hospitalization History Diverticulitis--[facility] 06/2018
--- OUTSIDE RECORDS SUMMARY | 2019-07-04 10:13 | XMS REPORT ---
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 803409605 Problem Insomnia, unspecified G47.00 Active 476365777 Problem Chronic kidney disease, stage 3 N18.3 Active 091330222 Problem 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 827363057 Problem Gout of left knee due to renal impairment, unspe cified chronicity M10.362 Active 965771948 Problem Mood disorder F39 Active 533945 05 Problem Essential hypertension I10 Active 11736014 Problem Primary osteoarthritis of left knee M17.12 Active 533330447121187 Problem Kidney stone N20.0 Active 1855516 7 Problem Proteinuria R80.9 Active 17104009 Problem Sinusitis J32.9 Active 22939548 Problem Dependence on renal dialysis Z99.2 A ctive 313933166 Problem Delayed gastric emptying K30 Activ e 489180864 Problem Gastroesophageal reflux disease, esophagitis pre sence not specified K21.9 Active 153615348 Problem End stage renal disease N18.6 Active 68474687 Problem Chronic kidney disease, stage V (very severe) N18. 5 Active 025802857 Problem Hypertriglyceridemia E78.1 Active 928119942 Problem Coronary atherosclerosis of unspecified type of vessel, elim ira or graft I25.10 Active 273865393 Problem End stage kidney disease N18.6 Activ e 13255998 Problem Type 2 diabetes mellitus with hyperglycemia E11.65 Active 728745738289444 Problem Hypoglycemia E16.2 Active 2688003 03 Problem Diabetes E11.9 Active 764432370 ALLERGIES No Information ENCOUNTERS Encounter Location Date Diagnosis [facility] [address] [facility] [id number] [address] [place] [address] May, [facility] [address] [facility] [id number] [address] [place] [address] Apr, Pseudogout M11.20 [facility] [address] [facility] [id number] [address] [place] [address] 16 Apr, 2019 Type 2 diabetes mellitus wit h diabetic nephropathy E11.21 and Other viral warts B07.8 [facility] [address] [facility] [id number] [address] [place] [address] Jan, Other viral warts B07.8 ; Di abetes E11.9 ; Dependence on renal dialysis Z99.2 and End stage renal disease N18.6 [facility] [address] [facility] [id number] [address] [place] [address] Oct, Type 2 diabetes mellitus wit h diabetic nephropathy E11.21 ; Hypoglycemia E16.2 and Dermatofibroma D23.9 [facility] [address] [place] [id number] [address] [place] [address] Oct, [place] [address] [place] [id number] [address] [place] [address] Jul, Type 2 diabetes mellitus wit h hyperglycemia E11.65 [facility] [address] [facility] [id number] [address] [place] [address] Jul, Type 2 diabetes mellitus wit h hyperglycemia E11.65 [facility] [address] [facility] [id number] [address] [place] [address] Jul, Type 2 diabetes mellitus wit h hyperglycemia E11.65 [facility] [address] [facility] [id number] [address] [place] [address] June, Type 2 diabetes mellitus wit h hyperglycemia E11.65 ; End stage kidney disease N18.6 and Callus L84 [facility] [address] [facility] [id number] [address] [place] [address] May, [facility] [address] [facility] [id number] [address] [place] [address] May, Essential hypertension I10 [facility] [address] [facility] [id number] [address] [place] [address] Apr, [facility] [address] [facility] [id number] [address] [place] [address] Apr, Type 2 diabetes mellitus wit h hyperglycemia E11.65 and Essential hypertension I10 [place] [address] [facility] [id number] [address] [place] [address] Apr, [place] [address] [address] Apr, Type 2 diabetes mellitus wit h hyperglycemia E11.65 [place] [address] [facility] [id number] [address] [place] [address] Apr, [place] [address] [address] Mar, Type 2 diabetes mellitus wit h hyperglycemia E11.65 [place] [address] [address] Mar, Type 2 diabetes mellitus wit h diabetic nephropathy E11.21 ; End stage kidney disease N18.6 ; Callus L84 and Onychomycosis B35.1 [place] [address] [address] Feb, [facility] [address] [place] [id number] [address] [place] [address] Feb, Sinusitis J32.9 ; Nausea R11 .0 and Otalgia H92.09 [place] [address] [place] [id number] [address] [place] [address] Jan, [facility] [address] [address] Jan, [place] [address] [address] Jan, Essential hypertension I10 ; Gout, unspecified M10.9 ; Coronary atherosclerosis of unspecified type of vessel, elim ira or graft I25.10 ; Mixed hyperlipidemia E78.2 and Type 2 diabetes mellitus with hyperglycemia E11.65 [place] [address] [facility] [id number] [address] [place] [address] Dec, Chronic kidney disease, stag e 3 N18.3 ; Proteinuria R80.9 ; Diabetes mellitus E11.9 ; Acute kidney failure, unspecified N17.9 and Mixed hyperlipidemia E78.2 [place] [address] [facility] [id number] [address] [place] [address] 16 Dec, 2017 Chronic kidney disease, stag e 3 N18.3 ; Essential hypertension I10 ; Proteinuria R80.9 ; Diabetes mellitus E11.9 ; Kidney stone N20.0 ; Acute kidney failure, unspecified N17.9 ; Edema R60.9 and Mixed hyperlipidemia E78.2 [place] [address] [facility] [id number] [address] [place] [address] Dec, Type 2 diabetes mellitus wit h hyperglycemia E11.65 [place] [address] [place] [id number] [address] [place] [address] Dec, Chronic kidney disease, stag e 3 N18.3 [place] [address] [facility] [id number] [address] [place] [address] 06 Dec, 2017 Type 2 diabetes mellitus wit h hyperglycemia E11.65 [place] [address] [place] [id number] [address] [place] [address] Dec, [place] [address] [place] [id number] [address] [place] [address] Nov, Type 2 diabetes mellitus wit h hyperglycemia E11.65 [place] [address] [place] [id number] [address] [place] [address] Nov, [place] [address] [facility] [id number] [address] [place] [address] Nov, Chronic kidney disease, stag e V (very severe) N18.5 ; Type 2 diabetes mellitus with hyperglycemia E11.65 ; Encounter for immunization Z23 and Delayed gastric emptying K30 [facility] [address] [facility] [id number] [address] [place] [address] Nov, [place] [address] [facility] [id number] [address] [place] [address] Oct, Essential hypertension I10 ; Coronary atherosclerosis of unspecified type of vessel, elim ira or graft I25.10 ; Type 2 diabetes mellitus with hyperglycemia E11.65 and Gout, unspecified M10.9 [place] [address] [facility] [id number] [address] [place] [address] Oct, Chronic kidney disease, stag e V (very severe) N18.5 [place] [address] [facility] [id number] [address] [place] [address] Oct, Mixed hyperlipidemia E78.2 [place] [address] [facility] [id number] [address] [place] [address] Sep, Type 2 diabetes mellitus wit h hyperglycemia E11.65 [place] [address] [facility] [id number] [address] [place] [address] Sep, Mixed hyperlipidemia E78.2 [place] [address] [facility] [id number] [address] [place] [address] 16 Sep, 2017 Chronic kidney disease, stag e V (very severe) N18.5 [place] [address] [facility] [id number] [address] [place] [address] Sep, Type 2 diabetes mellitus wit h hyperglycemia E11.65 and Essential hypertension I10 [place] [address] [facility] [id number] [address] [place] [address] Sep, Type 2 diabetes mellitus wit h hyperglycemia E11.65 [place] [address] [facility] [id number] [address] [place] [address] Aug, Gout, unspecified M10.9 ; Ga stroesophageal reflux disease, esophagitis presence not specified K21.9 ; Mood disorder F39 and Coronary atherosclerosis of unspecified type of vessel, elim ira or graft I25.10 [place] [address] [facility] [id number] [address] [place] [address] Aug, [place] [address] [facility] [id number] [address] [place] [address] June, Type 2 diabetes mellitus wit h hyperglycemia E11.65 [place] [address] [place] [id number] [address] [place] [address] May, Mood disorder F39 ; Gastroes ophageal reflux disease, esophagitis presence not specified K21.9 ; Gout, unspecified M10.9 ; Coronary atherosclerosis of unspecified type of vessel, elim ira or graft I25.10 and Type 2 diabetes mellitus with hyperglycemia E11.65 [place] [address] [place] [id number] [address] [place] [address] May, Type 2 diabetes mellitus wit h hyperglycemia E11.65 [place] [address] [address] Apr, Diabetes E11.9 and Mood diso rder F39 [place] [address] [place] [id number] [address] [place] [address] Mar, Primary osteoarthritis of le ft knee M17.12 and Tear of lateral meniscus of left knee, unspecified tear type, unspecified whether old or current tear, initial encounter S83.282A [place] [address] [place] [id number] [address] [place] [address] Feb, Mood disorder F39 [place] [address] [place] [id number] [place] [address] Feb, Pseudogout M11.20 [place] [address] [place] [id number] [place] [address] Jan, Other usp (current) dr anna therapy Z79.899 [facility] [address] [facility] [id number] [address] [place] [address] Jan, [facility] [address] [place] [id number] [address] [place] [address] Jan, Pseudogout M11.20 ; Type 2 d iabetes mellitus with hyperglycemia E11.65 and 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 [place] [address] [place] [id number] [place] [address] 18 Jan, 2017 Gout of left knee due to eloisa al impairment, unspecified chronicity M10.362 ; Type 2 diabetes mellitus with diabetic nephropathy E11.21 ; Synovial cyst of popliteal space [Mejia], left knee M71.22 and Low back pain M54.5 [place] [address] [place] [id number] [place] [address] Dec, Pseudogout M11.20 [place] [address] [place] [id number] [place] [address] Dec, [place] [address] [place] [id number] [place] [address] Dec, Type 2 diabetes mellitus wit h diabetic nephropathy E11.21 and Right anterior knee pain M25.561 [place] [address] [place] [id number] [place] [address] Nov, Pseudogout M11.20 [place] [address] [place] [id number] [place] [address] Nov, Pseudogout M11.20 ; Chronic kidney disease, stage 3 N18.3 ; Mixed hyperlipidemia E78.2 ; Gout, unspecified M10.9 ; Coronary atherosclerosis of unspecified type of vessel, elim ira or graft I25.10 ; Mood disorder F39 and Gastroesophageal reflux disease, esophagitis presence not specified K21.9 [place] [address] [place] [id number] [address] [place] [address] Nov, [place] [address] [place] [id number] [place] [address] Oct, Pseudogout M11.20 [place] [address] [place] [id number] [place] [address] Sep, Pseudogout M11.20 [place] [address] [place] [id number] [place] [address] Sep, Pseudogout M11.20 [place] [address] [place] [id number] [place] [address] Sep, [facility] [address] [place] [id number] [place] [id number] Aug, [facility] [address] [place] [id number] [address] [place] [address] Aug, Diabetes E11.9 ; Chronic kid tahir disease, stage 3 N18.3 ; Hyperuricemia E79.0 ; Mixed hyperlipidemia E78.2 ; Gastroesophageal reflux disease, esophagitis presence not specified K21.9 ; Gout, unspecified M10.9 ; Coronary atherosclerosis of unspecified type of vessel, elim ira or graft I25.10 and Mood disorder F39 [facility] [address] [place] [id number] [place] [address] June, [facility] [address] [address] June, [facility] [address] [place] [id number] [address] [place] [address] June, [facility] [address] [place] [id number] [place] [address] May, Chronic renal failure, stage 3 (moderate) N18.3 [facility] [address] [place] [id number] [place] [address] May, Diabetes E11.9 [facility] [id number] [place] [address] May, [facility] [address] [place] [id number] [place] [address] Apr, [facility] [address] [place] [id number] [address] [place] [address] Apr, [facility] [address] [place] [id number] [place] [address] Apr, Cellulitis of right lower ex tremity L03.115 and Diabetes E11.9 [facility] [address] [place] [id number] [place] [address] Apr, Type 2 diabetes mellitus wit h hyperglycemia E11.65 [facility] [address] [id number] [address] [place] [address] Mar, Cellulitis of right lower ex tremity L03.115 and Low back pain M54.5 [facility] [address] [id number] [address] [place] [address] Mar, [facility] [address] [facility] [id number] [address] [place] [address] Mar, Cellulitis of right lower ex tremity L03.115 [place] [address] [facility] [id number] [address] [place] [address] Mar, Cellulitis of right lower ex tremity L03.115 [place] [address] [facility] [id number] [address] [place] [address] Feb, Cellulitis of right lower ex tremity L03.115 [place] [address] [id number] [address] [place] [address] Feb, Cellulitis of right lower ex tremity L03.115 [place] [address] [facility] [id number] [address] [place] [address] Feb, [facility] [address] [facility] [id number] [address] [place] [address] Feb, Leukocytosis, unspecified ty pe D72.829 ; Chronic renal failure, stage 3 (moderate) N18.3 and Type 2 diabetes mellitus with hyperglycemia E11.65 [facility] [address] [id number] [address] [place] [address] Feb, Leukocytosis, unspecified ty pe D72.829 [facility] [address] [facility] [id number] [address] [place] [address] Feb, [facility] [address] [facility] [id number] [address] [place] [address] Feb, Cellulitis of right lower ex tremity L03.115 ; Thrush B37.0 ; Gout of left knee due to renal impairment, unspecified chronicity M10.362 and Chronic renal failure, stage 3 (moderate) N18.3 [place] [address] [id number] [address] [place] [address] Feb, [place] [address] [facility] [id number] [address] [place] [address] Feb, Right foot infection L08.9 ; Type 2 diabetes mellitus with hyperglycemia E11.65 ; Arthralgia of left knee M25.562 ; Chronic kidney disease, stage 3 N18.3 and Diabetes E11.9 [place] [address] [facility] [id number] [address] [place] [address] Feb, [place] [address] [facility] [id number] [address] [place] [address] Feb, Diabetes E11.9 ; Arthralgia of left knee M25.562 and Thrush B37.0 [place] [address] [facility] [id number] [address] [place] [address] Jan, [place] [address] [facility] [id number] [address] [place] [address] Jan, Type 2 diabetes mellitus wit h hyperglycemia E11.65 ; Chronic renal failure, stage 3 (moderate) N18.3 and Leukocytosis, unspecified type D72.829 [place] [address] [facility] [id number] [address] [place] [address] Jan, Type 2 diabetes mellitus wit h hyperglycemia E11.65 [place] [address] [facility] [id number] [address] [place] [address] Dec, Gout of left knee due to eloisa al impairment, unspecified chronicity M10.362 [place] [address] [facility] [id number] [address] [place] [address] Dec, Gout of left knee due to eloisa al impairment, unspecified chronicity M10.362 and Diabetes E11.9 [place] [address] [place] [id number] [address] [place] [address] 14 Dec, 2015 [facility] [address] [address] Dec, [facility] [address] [place] [id number] [place] [address] Dec, [facility] [address] [address] Dec, Chronic kidney disease, stag e 3 N18.3 ; Type 2 diabetes mellitus with diabetic nephropathy E11.21 ; Type 2 diabetes mellitus with hyperglycemia E11.65 and halfway 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 [facility] [address] [address] 05 Dec, 2015 Leukocytosis, unspecified ty pe D72.829 ; Chronic renal failure, stage 3 (moderate) N18.3 and Nausea R11.0 [place] [address] [address] Nov, [place] [address] [address] Jul, [place] [address] [address] Jul, Diabetes E11.9 ; Low back pa in M54.5 and Other chronic pain G89.29 [place] [address] [place] [id number] [address] [place] [address] June, [place] [address] [address] June, [place] [address] [address] Jan, Viral illness B34.9 [place] [address] [place] [id number] [address] [place] [address] Jan, Type 2 diabetes mellitus wit h hyperglycemia E11.65 ; Pain in right foot M79.671 and Localized edema R60.0 [facility] [address] [id number] [address] [place] [address] Jan, [facility] [address] [id number] [address] [place] [address] Dec, Right foot pain M79.671 ; In somnia, unspecified type G47.00 and Diabetes E11.9 [facility] [address] [id number] [address] [place] [address] Dec, Pain in right foot M79.671 [facility] [address] [id number] [address] [place] [address] Nov, [facility] [address] [id number] [address] [place] [address] Sep, [facility] [address] [id number] [address] [place] [address] Sep, Diabetes mellitus, type II 2 50.00 [facility] [address] [id number] [address] [place] [address] May, [facility] [address] [id number] [address] [place] [address] May, [facility] [address] [id number] [address] [place] [address] Apr, [facility] [address] [id number] [address] [place] [address] Apr, [facility] [address] [id number] [address] [place] [address] Apr, [facility] [address] [id number] [address] [place] [address] Apr, [facility] [address] [id number] [address] [place] [address] Apr, [facility] [address] [facility] [id number] [address] [place] [address] Apr, [facility] [address] [id number] [address] [place] [address], [place] [address] Apr, [facility] [address] [id number] [address] [place] [address], [place] [address] Apr, [facility] [address] [id number] [address] [place] [address], [place] [address] Jan, [facility] [address] [id number] [address] [place] [address], [place] [address] Jan, [facility] [address] [id number] [address] [place] [address], [place] [address] Jan, [facility] [address] [id number] [address] [place] [address], [place] [address] Jan, [facility] [address] [id number] [address] [place] [address], [place] [address] Dec, [facility] [address] [id number] [address] [place] [address], [place] [address] Dec, [facility] [address] [id number] [address] [place] [address], [place] [address] Nov, [facility] [address] [id number] [address] [place] [address], [place] [address] Nov, [facility] [address] [id number] [address] [place] [address], [place] [address] Oct, [facility] [address] [id number] [address] [place] [address], [place] [address] Oct, [facility] [address] [id number] [address] [place] [address], [place] [address] Oct, [facility] [address] [id number] [address] [place] [address], [place] [address] Oct, [facility] [address] [id number] [address] [place] [address], [place] [address] Sep, [facility] [address] [id number] [address] [place] [id number] Sep, [facility] [address] [id number] [address] [place] [address], [place] [address] Sep, [facility] [address] [id number] [address] [place] [address], [place] [address] Sep, [facility] [address] [id number] [address] [place] [address], [place] [address] Sep, [facility] [address] [id number] [address] [place] [address], [place] [address] Sep, [facility] [address] [id number] [address] [place] [address], [place] [address] Sep, [facility] [address] [id number] [address] [place] [address], [place] [address] Sep, [facility] [address] [id number] [address] [place] [address], [place] [address] Sep, [facility] [address] [id number] [address] [place] [address], [place] [address] Sep, [facility] [address] [id number] [address] [place] [address], [place] [address] Sep, [facility] [address] [id number] [address] [place] [address], [place] [address] Sep, [facility] [address] [id number] [address] [place] [address], [place] [address] Aug, [facility] [address] [id number] [address] [place] [address], [place] [address] Aug, [facility] [address] [id number] [address] [place] [address], [place] [address] Aug, [facility] [address] [id number] [address] [place] [address], [place] [address] Aug, [facility] [address] [id number] [address] [place] [address], [place] [address] June, [facility] [address] [id number] [facility] [place] [address] 24 May, 2013 [facility] [address] [id number] [address] [place] [address], [place] [address] 24 May, 2013 [facility] [address] [id number] [address] [place] [address], [place] [address] 21 May, 2013 [facility] [address] [id number] [address] [place] [address], [place] [address] 18 May, 2013 [facility] [address] [id number] [address] [place] [address], [place] [address] 17 May, 2013 [facility] [address] [id number] [address] [place] [address], [place] [address] 17 May, 2013 [facility] [address] [id number] [address] [place] [address], [place] [address] 16 May, 2013 [facility] [address] [id number] [address] [place] [address], [place] [address] 16 May, 2013 [facility] [address] [id number] [address] [place] [address], [place] [address] 14 May, 2013 [facility] [address] [id number] [address] [place] [address], [place] [address] 14 May, 2013 [facility] [address] [id number] [address] [place] [address], [place] [address] 14 May, 2013 [facility] [address] [id number] [address] [place] [address], [place] [address] 14 May, 2013 [facility] [address] [id number] [address] [place] [address], [place] [address] Apr, [facility] [address] [id number] [address] [place] [address], [place] [address] Apr, [facility] [address] [id number] [address] [place] [address], [place] [address] Mar, [facility] [address] [id number] [address] [place] [address], [place] [address] Mar, [facility] [address] [id number] [address] [place] [address], [place] [address] Dec, [facility] [address] [id number] [address] [place] [address], [place] [address] Dec, [facility] [address] [id number] [address] [place] [address], [place] [address] Dec, [facility] [address] [id number] [address] [place] [address], [place] [address] Dec, [facility] [address] [id number] [address] [place] [address], [place] [address] Nov, [facility] [address] [id number] [address] [place] [address], [place] [address] Nov, [facility] [address] [id number] [address] [place] [address], [place] [address] Oct, [facility] [address] [id number] [address] [place] [address], [place] [address] Oct, [facility] [address] [id number] [address] [place] [address], [place] [address] Aug, [facility] [address] [id number] [address] [place] [address], [place] [address] Aug, [facility] [address] [id number] [address] [place] [address], [place] [address] Aug, [facility] [address] [id number] [address] [place] [address] Jul, [facility] [address] [id number] [address] [place] [address], [place] [address] June, [facility] [address] [id number] [address] [place] [address], [place] [address] June, [facility] [address] [id number] [address] [place] [address], [place] [address] Apr, [facility] [address] [id number] [address] [place] [address], [place] [address] Mar, [facility] [address] [id number] [address] [place] [address], [place] [address] Mar, [facility] [address] [id number] [address] [place] [address], [place] [address] Mar, [facility] [address] [id number] [address] [place] [address], [place] [address] Mar, [facility] [address] [id number] [address] [place] [address], [place] [address] Mar, [facility] [address] [id number] [address] [place] [address], [place] [address] Feb, [facility] [address] [id number] [address] [place] [address], [place] [address] Feb, [facility] [address] [id number] [address] [place] [address], [place] [address] Feb, [facility] [address] [id number] [address] [place] [address], [place] [address] Feb, [facility] [address] [id number] [address] [place] [address], [place] [address] Jan, [facility] [address] [id number] [address] [place] [address], [place] [address] Jan, [facility] [address] [id number] [address] [place] [address], [place] [address] Dec, [facility] [address] [id number] [address] [place] [address], [place] [address] Dec, [facility] [address] [id number] [address] [place] [address], [place] [address] Dec, [facility] [address] [id number] [address] [place] [address], [place] [address] Dec, [facility] [address] [id number] [address] [place] [address], [place] [address] Oct, [facility] [address] [id number] [address] [place] [address], [place] [address] Aug, [facility] [address] [id number] [address] [place] [address], [place] [address] Jul, [facility] [address] [id number] [address] [place] [address], [place] [address] June, [facility] [address] [id number] [address] [place] [address], [place] [address] June, [facility] [address] [id number] [address] [place] [address], [place] [address] June, [facility] [address] [id number] [address] [place] [address], [place] [address] June, [facility] [address] [id number] [address] [place] [address], [place] [address] June, [facility] [address] [id number] [address] [place] [address], [place] [address] May, [facility] [address] [id number] [address] [place] [address], [place] [address] May, [facility] [address] [id number] [address] [place] [address], [place] [address] Apr, [facility] [address] [id number] [address] [place] [address], [place] [address] Apr, [facility] [address] [id number] [address] [place] [address], [place] [address] Mar, [facility] [address] [id number] [address] [place] [address], [place] [address] Feb, [facility] [address] [id number] [address] [place] [address], [place] [address] Nov, [facility] [address] [id number] [address] [place] [address], [place] [address] Nov, [facility] [address] [id number] [address] [place] [address], [place] [address] 13 Nov, 2010 [facility] [address] [id number] [address] [place] [address], [place] [address] 17 Apr, 2010 [facility] [address] [id number] [address] [place] [address], [place] [address] 07 Jan, 2010 [facility] [address] [id number] [address] [place] [address], [place] [address] 24 Dec, 2009 [facility] [address] [id number] [address] [place] [address], [place] [address] 11 Dec, 2009 [facility] [address] [id number] [address] [place] [address], [place] [address] 29 Nov, 2009 [facility] [address] [id number] [address] [place] [address], [place] [address] June, [facility] [address] [id number] [address] [place] [address], [place] [address] 29 Jan, 2009 [facility] [address] [id number] [address] [place] [address], [place] [address] 28 Jan, 2009 [facility] [address] [id number] [address] [place] [address], [place] [address] 23 Jan, 2009 [facility] [address] [id number] [address] [place] [address], [place] [address] 22 Jan, 2009 [facility] [address] [id number] [address] [place] [address], [place] [address] 16 Jan, 2009 [facility] [address] [id number] [address] [place] [address], [place] [address] 15 Jan, 2009 [facility] [address] [id number] [address] [place] [address], [place] [address] 15 Jan, 2009 [facility] [address] [id number] [address] [place] [address], [place] [address] 11 Jan, 2009 [facility] [address] [id number] [address] [place] [address], [place] [address] 11 Jan, 2009 [facility] [address] [facility] [id number] [address] [place] [address] Jan, [facility] [address] [facility] [id number] [address] [place] [address] Jan, [facility] [address] [facility] [id number] [address] [place] [address] Jan, [facility] [address] [facility] [id number] [address] [place] [address] Dec, [facility] [address] [facility] [id number] [address] [place] [address] Dec, [facility] [address] [facility] [id number] [address] [place] [address] Dec, [facility] [address] [facility] [id number] [address] [place] [address] Dec, [facility] [address] [facility] [id number] [address] [place] [address] Nov, [facility] [address] [facility] [id number] [address] [place] [address] Oct, IMMUNIZATIONS No Known Immunizations SOCIAL HISTORY Never Assessed REASON FOR VISIT PLAN OF CARE VITAL SIGNS MEDICATIONS Unknown [...] knee pseudogout s tatus post joint fluid analysis-[facility] 09/20/16 Hospitalization History kidneys--[place] 11/2017 Hospitalization History Diverticulitis--[place] 06/2018
--- OUTSIDE RECORDS SUMMARY | 2019-07-04 10:13 | XMS REPORT ---
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 305394708 Problem Insomnia, unspecified G47.00 Active 907010515 Problem Chronic kidney disease, stage 3 N18.3 Active 163782716 Problem 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 532550221 Problem Gout of left knee due to renal impairment, unspe cified chronicity M10.362 Active 542664586 Problem Mood disorder F39 Active 477800 05 Problem Essential hypertension I10 Active 64276801 Problem Primary osteoarthritis of left knee M17.12 Active [id number] Problem Kidney stone N20.0 Active 6760368 7 Problem Proteinuria R80.9 Active 61919733 Problem Sinusitis J32.9 Active 54475009 Problem Dependence on renal dialysis Z99.2 A ctive 494981252 Problem Delayed gastric emptying K30 Activ e 805517474 Problem Gastroesophageal reflux disease, esophagitis pre sence not specified K21.9 Active 484078648 Problem End stage renal disease N18.6 Active 02693663 Problem Chronic kidney disease, stage V (very severe) N18. 5 Active 542938505 Problem Hypertriglyceridemia E78.1 Active 451621550 Problem Coronary atherosclerosis of unspecified type of vessel, andreafski or graft I25.10 Active 229431681 Problem End stage kidney disease N18.6 Activ e 52155253 Problem Type 2 diabetes mellitus with hyperglycemia E11.65 Active 649088026753167 Problem Hypoglycemia E16.2 Active 0734597 03 Problem Diabetes E11.9 Active 821447237 ALLERGIES No Information ENCOUNTERS Encounter Location Date Diagnosis [facility] [address] [facility] [id number] [address] [place] [phone] May, [facility] [address] [facility] [id number] [address] [place] [address] Apr, Pseudogout M11.20 [facility] [address] [facility] [id number] [address] [place] [phone] 16 Apr, 2019 Type 2 diabetes mellitus wit h diabetic nephropathy E11.21 and Other viral warts B07.8 [facility] [address] [facility] [id number] [address] [place] [address] Jan, Other viral warts B07.8 ; Di abetes E11.9 ; Dependence on renal dialysis Z99.2 and End stage renal disease N18.6 [facility] [address] [facility] [id number] [address] [place] [phone] Oct, Type 2 diabetes mellitus wit h diabetic nephropathy E11.21 ; Hypoglycemia E16.2 and Dermatofibroma D23.9 [facility] [address] [place] [id number] [address] [place] [phone] Oct, [place] [address] [place] [id number] [address] [place] [address] Jul, Type 2 diabetes mellitus wit h hyperglycemia E11.65 [facility] [address] [facility] [id number] [address] [place] [address] Jul, Type 2 diabetes mellitus wit h hyperglycemia E11.65 [facility] [address] [facility] [id number] [address] [place] [address] Jul, Type 2 diabetes mellitus wit h hyperglycemia E11.65 [facility] [address] [facility] [id number] [address] [place] [address] June, Type 2 diabetes mellitus wit h hyperglycemia E11.65 ; End stage kidney disease N18.6 and Callus L84 [facility] [address] [facility] [id number] [address] [place] [phone] May, [facility] [address] [facility] [id number] [address] [place] [phone] May, Essential hypertension I10 [facility] [address] [facility] [id number] [address] [place] [phone] Apr, [facility] [address] [facility] [id number] [address] [place] [address] Apr, Type 2 diabetes mellitus wit h hyperglycemia E11.65 and Essential hypertension I10 [place] [address] [facility] [id number] [address] [place] [phone] Apr, [place] [address] [address] Apr, Type 2 diabetes mellitus wit h hyperglycemia E11.65 [place] [address] [facility] [id number] [address] [place] [address] Apr, [place] [address] [address] Mar, Type 2 diabetes mellitus wit h hyperglycemia E11.65 [place] [address] [address] Mar, Type 2 diabetes mellitus wit h diabetic nephropathy E11.21 ; End stage kidney disease N18.6 ; Callus L84 and Onychomycosis B35.1 [place] [address] [address] Feb, [facility] [address] [place] [id number] [address] [place] [address] Feb, Sinusitis J32.9 ; Nausea R11 .0 and Otalgia H92.09 [place] [address] [place] [id number] [address] [place] [address] Jan, [facility] [address] [address] Jan, [place] [address] [address] Jan, Essential hypertension I10 ; Gout, unspecified M10.9 ; Coronary atherosclerosis of unspecified type of vessel, andreafski or graft I25.10 ; Mixed hyperlipidemia E78.2 and Type 2 diabetes mellitus with hyperglycemia E11.65 [place] [address] [facility] [id number] [address] [place] [address] Dec, Chronic kidney disease, stag e 3 N18.3 ; Proteinuria R80.9 ; Diabetes mellitus E11.9 ; Acute kidney failure, unspecified N17.9 and Mixed hyperlipidemia E78.2 [place] [address] [facility] [id number] [address] [place] [address] 16 Dec, 2017 Chronic kidney disease, stag e 3 N18.3 ; Essential hypertension I10 ; Proteinuria R80.9 ; Diabetes mellitus E11.9 ; Kidney stone N20.0 ; Acute kidney failure, unspecified N17.9 ; Edema R60.9 and Mixed hyperlipidemia E78.2 [place] [address] [facility] [id number] [address] [place] [address] Dec, Type 2 diabetes mellitus wit h hyperglycemia E11.65 [place] [address] [place] [id number] [address] [place] [address] Dec, Chronic kidney disease, stag e 3 N18.3 [place] [address] [facility] [id number] [address] [place] [phone] 06 Dec, 2017 Type 2 diabetes mellitus wit h hyperglycemia E11.65 [place] [address] [place] [id number] [address] [place] [address] Dec, [place] [address] [place] [id number] [address] [place] [address] Nov, Type 2 diabetes mellitus wit h hyperglycemia E11.65 [place] [address] [place] [id number] [address] [place] [address] Nov, [place] [address] [facility] [id number] [address] [place] [address] Nov, Chronic kidney disease, stag e V (very severe) N18.5 ; Type 2 diabetes mellitus with hyperglycemia E11.65 ; Encounter for immunization Z23 and Delayed gastric emptying K30 [facility] [address] [facility] [id number] [address] [place] [address] Nov, [place] [address] [facility] [id number] [address] [place] [address] Oct, Essential hypertension I10 ; Coronary atherosclerosis of unspecified type of vessel, andreafski or graft I25.10 ; Type 2 diabetes mellitus with hyperglycemia E11.65 and Gout, unspecified M10.9 [place] [address] [facility] [id number] [address] [place] [address] Oct, Chronic kidney disease, stag e V (very severe) N18.5 [place] [address] [facility] [id number] [address] [place] [address] Oct, Mixed hyperlipidemia E78.2 [place] [address] [facility] [id number] [address] [place] [address] Sep, Type 2 diabetes mellitus wit h hyperglycemia E11.65 [place] [address] [facility] [id number] [address] [place] [phone] Sep, Mixed hyperlipidemia E78.2 [place] [address] [facility] [id number] [address] [place] [id number] 16 Sep, 2017 Chronic kidney disease, stag e V (very severe) N18.5 [place] [address] [facility] [id number] [address] [place] [address] Sep, Type 2 diabetes mellitus wit h hyperglycemia E11.65 and Essential hypertension I10 [place] [address] [facility] [id number] [address] [place] [address] Sep, Type 2 diabetes mellitus wit h hyperglycemia E11.65 [place] [address] [facility] [id number] [address] [place] [address] Aug, Gout, unspecified M10.9 ; Ga stroesophageal reflux disease, esophagitis presence not specified K21.9 ; Mood disorder F39 and Coronary atherosclerosis of unspecified type of vessel, andreafski or graft I25.10 [place] [address] [facility] [id number] [address] [place] [address] Aug, [place] [address] [facility] [id number] [address] [place] [address] June, Type 2 diabetes mellitus wit h hyperglycemia E11.65 [place] [address] [place] [id number] [address] [place] [address] May, Mood disorder F39 ; Gastroes ophageal reflux disease, esophagitis presence not specified K21.9 ; Gout, unspecified M10.9 ; Coronary atherosclerosis of unspecified type of vessel, andreafski or graft I25.10 and Type 2 diabetes mellitus with hyperglycemia E11.65 [place] [address] [place] [id number] [address] [place] [address] May, Type 2 diabetes mellitus wit h hyperglycemia E11.65 [place] [address] [address] Apr, Diabetes E11.9 and Mood diso rder F39 [place] [address] [place] [id number] [address] [place] [address] Mar, Primary osteoarthritis of le ft knee M17.12 and Tear of lateral meniscus of left knee, unspecified tear type, unspecified whether old or current tear, initial encounter S83.282A [place] [address] [place] [id number] [address] [place] [address] Feb, Mood disorder F39 [place] [address] [place] [id number] [place] [address] Feb, Pseudogout M11.20 [place] [address] [place] [id number] [place] [address] Jan, Other prison (current) dr anna therapy Z79.899 [facility] [address] [facility] [id number] [address] [place] [address] Jan, [facility] [address] [place] [id number] [address] [place] [address] Jan, Pseudogout M11.20 ; Type 2 d iabetes mellitus with hyperglycemia E11.65 and 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 [place] [address] [place] [id number] [place] [id number] 18 Jan, 2017 Gout of left knee due to eloisa al impairment, unspecified chronicity M10.362 ; Type 2 diabetes mellitus with diabetic nephropathy E11.21 ; Synovial cyst of popliteal space [Mejia], left knee M71.22 and Low back pain M54.5 [place] [address] [place] [id number] [place] [phone] Dec, Pseudogout M11.20 [place] [address] [place] [id number] [place] [address] Dec, [place] [address] [place] [id number] [place] [address] Dec, Type 2 diabetes mellitus wit h diabetic nephropathy E11.21 and Right anterior knee pain M25.561 [place] [address] [place] [id number] [place] [address] Nov, Pseudogout M11.20 [place] [address] [place] [id number] [place] [address] Nov, Pseudogout M11.20 ; Chronic kidney disease, stage 3 N18.3 ; Mixed hyperlipidemia E78.2 ; Gout, unspecified M10.9 ; Coronary atherosclerosis of unspecified type of vessel, andreafski or graft I25.10 ; Mood disorder F39 and Gastroesophageal reflux disease, esophagitis presence not specified K21.9 [place] [address] [place] [id number] [place] [address] Nov, [place] [address] [place] [id number] [place] [address] Oct, Pseudogout M11.20 [place] [address] [place] [id number] [place] [address] Sep, Pseudogout M11.20 [place] [address] [place] [id number] [place] [address] Sep, Pseudogout M11.20 [place] [address] [place] [id number] [place] [address] Sep, [facility] [address] [place] [id number] [place] [id number] Aug, [facility] [address] [place] [id number] [address] [place] [phone] Aug, Diabetes E11.9 ; Chronic kid tahir disease, stage 3 N18.3 ; Hyperuricemia E79.0 ; Mixed hyperlipidemia E78.2 ; Gastroesophageal reflux disease, esophagitis presence not specified K21.9 ; Gout, unspecified M10.9 ; Coronary atherosclerosis of unspecified type of vessel, andreafski or graft I25.10 and Mood disorder F39 [facility] [address] [place] [id number] [place] [phone] June, [facility] [address] [address] June, [facility] [address] [place] [id number] [address] [place] [address] June, [facility] [address] [place] [id number] [address] [place] [address] May, Chronic renal failure, stage 3 (moderate) N18.3 [facility] [address] [place] [id number] [place] [address] May, Diabetes E11.9 [facility] [id number] [place] [address] May, [facility] [address] [place] [id number] [place] [id number] Apr, [facility] [address] [place] [id number] [address] [place] [address] Apr, [facility] [address] [place] [id number] [place] [address] Apr, Cellulitis of right lower ex tremity L03.115 and Diabetes E11.9 [facility] [address] [place] [id number] [place] [address] Apr, Type 2 diabetes mellitus wit h hyperglycemia E11.65 [facility] [address] [id number] [address] [place] [address] Mar, Cellulitis of right lower ex tremity L03.115 and Low back pain M54.5 [facility] [address] [id number] [address] [place] [phone] Mar, [facility] [address] [facility] [id number] [address] [place] [address] Mar, Cellulitis of right lower ex tremity L03.115 [place] [address] [facility] [id number] [address] [place] [address] Mar, Cellulitis of right lower ex tremity L03.115 [place] [address] [facility] [id number] [address] [place] [address] Feb, Cellulitis of right lower ex tremity L03.115 [place] [address] [id number] [address] [place] [address] Feb, Cellulitis of right lower ex tremity L03.115 [place] [address] [facility] [id number] [address] [place] [address] Feb, [facility] [address] [facility] [id number] [address] [place] [address] Feb, Leukocytosis, unspecified ty pe D72.829 ; Chronic renal failure, stage 3 (moderate) N18.3 and Type 2 diabetes mellitus with hyperglycemia E11.65 [facility] [address] [id number] [address] [place] [address] Feb, Leukocytosis, unspecified ty pe D72.829 [facility] [address] [facility] [id number] [address] [place] [phone] Feb, [facility] [address] [facility] [id number] [address] [place] [address] Feb, Cellulitis of right lower ex tremity L03.115 ; Thrush B37.0 ; Gout of left knee due to renal impairment, unspecified chronicity M10.362 and Chronic renal failure, stage 3 (moderate) N18.3 [place] [address] [id number] [address] [place] [address] Feb, [place] [address] [facility] [id number] [address] [place] [address] Feb, Right foot infection L08.9 ; Type 2 diabetes mellitus with hyperglycemia E11.65 ; Arthralgia of left knee M25.562 ; Chronic kidney disease, stage 3 N18.3 and Diabetes E11.9 [place] [address] [facility] [id number] [address] [place] [address] Feb, [place] [address] [facility] [id number] [address] [place] [address] Feb, Diabetes E11.9 ; Arthralgia of left knee M25.562 and Thrush B37.0 [place] [address] [facility] [id number] [address] [place] [address] Jan, [place] [address] [facility] [id number] [address] [place] [address] Jan, Type 2 diabetes mellitus wit h hyperglycemia E11.65 ; Chronic renal failure, stage 3 (moderate) N18.3 and Leukocytosis, unspecified type D72.829 [place] [address] [facility] [id number] [address] [place] [address] Jan, Type 2 diabetes mellitus wit h hyperglycemia E11.65 [place] [address] [facility] [id number] [address] [place] [address] Dec, Gout of left knee due to eloisa al impairment, unspecified chronicity M10.362 [place] [address] [facility] [id number] [address] [place] [address] Dec, Gout of left knee due to eloisa al impairment, unspecified chronicity M10.362 and Diabetes E11.9 [place] [address] [place] [id number] [address] [place] [phone] 14 Dec, 2015 [facility] [address] [address] Dec, [facility] [address] [place] [id number] [place] [address] Dec, [facility] [address] [address] Dec, Chronic kidney disease, stag e 3 N18.3 ; Type 2 diabetes mellitus with diabetic nephropathy E11.21 ; Type 2 diabetes mellitus with hyperglycemia E11.65 and jail 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 [facility] [address] [address] 05 Dec, 2015 Leukocytosis, unspecified ty pe D72.829 ; Chronic renal failure, stage 3 (moderate) N18.3 and Nausea R11.0 [place] [address] [address] Nov, [place] [address] [address] Jul, [place] [address] [address] Jul, Diabetes E11.9 ; Low back pa in M54.5 and Other chronic pain G89.29 [place] [address] [place] [id number] [address] [place] [address] June, [place] [address] [address] June, [place] [address] [address] Jan, Viral illness B34.9 [place] [address] [place] [id number] [address] [place] [address] Jan, Type 2 diabetes mellitus wit h hyperglycemia E11.65 ; Pain in right foot M79.671 and Localized edema R60.0 [facility] [address] [id number] [address] [place] [address] Jan, [facility] [address] [id number] [address] [place] [address] Dec, Right foot pain M79.671 ; In somnia, unspecified type G47.00 and Diabetes E11.9 [facility] [address] [id number] [address] [place] [address] Dec, Pain in right foot M79.671 [facility] [address] [id number] [address] [place] [phone] Nov, [facility] [address] [id number] [address] [place] [address] Sep, [facility] [address] [id number] [address] [place] [address] Sep, Diabetes mellitus, type II 2 50.00 [facility] [address] [id number] [address] [place] [id number] May, [facility] [address] [id number] [address] [place] [address] May, [facility] [address] [id number] [address] [place] [id number] Apr, [facility] [address] [id number] [address] [place] [phone] Apr, [facility] [address] [id number] [address] [place] [phone] Apr, [facility] [address] [id number] [address] [place] [phone] Apr, [facility] [address] [id number] [address] [place] [phone] Apr, [facility] [address] [facility] [id number] [address] [place] [phone] Apr, [facility] [address] [id number] [address] [place] [address], [place] [address] Apr, [facility] [address] [id number] [address] [place] [address], [place] [address] Apr, [facility] [address] [id number] [address] [place] [address], [place] [id number] Jan, [facility] [address] [id number] [address] [place] [address], [place] [address] Jan, [facility] [address] [id number] [address] [place] [address], [place] [address] Jan, [facility] [address] [id number] [address] [place] [address], [place] [address] Jan, [facility] [address] [id number] [address] [place] [address], [place] [address] Dec, [facility] [address] [id number] [address] [place] [address], [place] [address] Dec, [facility] [address] [id number] [address] [place] [address], [place] [address] Nov, [facility] [address] [id number] [address] [place] [address], [place] [address] Nov, [facility] [address] [id number] [address] [place] [address], [place] [address] Oct, [facility] [address] [id number] [address] [place] [address], [place] [address] Oct, [facility] [address] [id number] [address] [place] [address], [place] [address] Oct, [facility] [address] [id number] [address] [place] [address], [place] [address] Oct, [facility] [address] [id number] [address] [place] [address], [place] [address] Sep, [facility] [address] [id number] [address] [place] [id number] Sep, [facility] [address] [id number] [address] [place] [address], [place] [address] Sep, [facility] [address] [id number] [address] [place] [address], [place] [address] Sep, [facility] [address] [id number] [address] [place] [address], [place] [address] Sep, [facility] [address] [id number] [address] [place] [address], [place] [address] Sep, [facility] [address] [id number] [address] [place] [address], [place] [address] Sep, [facility] [address] [id number] [address] [place] [address], [place] [address] Sep, [facility] [address] [id number] [address] [place] [address], [place] [address] Sep, [facility] [address] [id number] [address] [place] [address], [place] [address] Sep, [facility] [address] [id number] [address] [place] [address], [place] [address] Sep, [facility] [address] [id number] [address] [place] [address], [place] [address] Sep, [facility] [address] [id number] [address] [place] [address], [place] [address] Aug, [facility] [address] [id number] [address] [place] [address], [place] [address] Aug, [facility] [address] [id number] [address] [place] [address], [place] [address] Aug, [facility] [address] [id number] [address] [place] [address], [place] [address] Aug, [facility] [address] [id number] [address] [place] [address], [place] [address] June, [facility] [address] [id number] [facility] [address] 24 May, 2013 [facility] [address] [id number] [address] [place] [address], [place] [address] 24 May, 2013 [facility] [address] [id number] [address] [place] [address], [place] [address] 21 May, 2013 [facility] [address] [id number] [address] [place] [address], [place] [address] 18 May, 2013 [facility] [address] [id number] [address] [place] [address], [place] [address] 17 May, 2013 [facility] [address] [id number] [address] [place] [address], [place] [address] 17 May, 2013 [facility] [address] [id number] [address] [place] [address], [place] [address] 16 May, 2013 [facility] [address] [id number] [address] [place] [address], [place] [address] 16 May, 2013 [facility] [address] [id number] [address] [place] [address], [place] [address] 14 May, 2013 [facility] [address] [id number] [address] [place] [address], [place] [address] 14 May, 2013 [facility] [address] [id number] [address] [place] [address], [place] [address] 14 May, 2013 [facility] [address] [id number] [address] [place] [address], [place] [address] 14 May, 2013 [facility] [address] [id number] [address] [place] [address], [place] [address] Apr, [facility] [address] [id number] [address] [place] [address], [place] [address] Apr, [facility] [address] [id number] [address] [place] [address], [place] [address] Mar, [facility] [address] [id number] [address] [place] [address], [place] [address] Mar, [facility] [address] [id number] [address] [place] [address], [place] [address] Dec, [facility] [address] [id number] [address] [place] [address], [place] [address] Dec, [facility] [address] [id number] [address] [place] [address], [place] [address] Dec, [facility] [address] [id number] [address] [place] [address], [place] [address] Dec, [facility] [address] [id number] [address] [place] [address], [place] [address] Nov, [facility] [address] [id number] [address] [place] [address], [place] [address] Nov, [facility] [address] [id number] [address] [place] [address], [place] [address] Oct, [facility] [address] [id number] [address] [place] [address], [place] [address] Oct, [facility] [address] [id number] [address] [place] [address], [place] [address] Aug, [facility] [address] [id number] [address] [place] [address], [place] [address] Aug, [facility] [address] [id number] [address] [place] [address], [place] [address] Aug, [facility] [address] [id number] [address] [place] [address] Jul, [facility] [address] [id number] [address] [place] [address], [place] [address] June, [facility] [address] [id number] [address] [place] [address], [place] [address] June, [facility] [address] [id number] [address] [place] [address], [place] [address] Apr, [facility] [address] [id number] [address] [place] [address], [place] [address] Mar, [facility] [address] [id number] [address] [place] [address], [place] [address] Mar, [facility] [address] [id number] [address] [place] [address], [place] [address] Mar, [facility] [address] [id number] [address] [place] [address], [place] [address] Mar, [facility] [address] [id number] [address] [place] [address], [place] [address] Mar, [facility] [address] [id number] [address] [place] [address], [place] [address] Feb, [facility] [address] [id number] [address] [place] [address], [place] [address] Feb, [facility] [address] [id number] [address] [place] [address], [place] [address] Feb, [facility] [address] [id number] [address] [place] [address], [place] [address] Feb, [facility] [address] [id number] [address] [place] [address], [place] [address] Jan, [facility] [address] [id number] [address] [place] [address], [place] [address] Jan, [facility] [address] [id number] [address] [place] [address], [place] [address] Dec, [facility] [address] [id number] [address] [place] [address], [place] [address] Dec, [facility] [address] [id number] [address] [place] [address], [place] [address] Dec, [facility] [address] [id number] [address] [place] [address], [place] [address] Dec, [facility] [address] [id number] [address] [place] [address], [place] [address] Oct, [facility] [address] [id number] [address] [place] [address], [place] [address] Aug, [facility] [address] [id number] [address] [place] [address], [place] [address] Jul, [facility] [address] [id number] [address] [place] [address], [place] [address] June, [facility] [address] [id number] [address] [place] [address], [place] [address] June, [facility] [address] [id number] [address] [place] [address], [place] [address] June, [facility] [address] [id number] [address] [place] [address], [place] [address] June, [facility] [address] [id number] [address] [place] [address], [place] [address] June, [facility] [address] [id number] [address] [place] [address], [place] [address] May, [facility] [address] [id number] [address] [place] [address], [place] [address] May, [facility] [address] [id number] [address] [place] [address], [place] [address] Apr, [facility] [address] [id number] [address] [place] [address], [place] [address] Apr, [facility] [address] [id number] [address] [place] [address], [place] [address] Mar, [facility] [address] [id number] [address] [place] [address], [place] [address] Feb, [facility] [address] [id number] [address] [place] [address], [place] [address] Nov, [facility] [address] [id number] [address] [place] [address], [place] [address] Nov, [facility] [address] [id number] [address] [place] [address], [place] [address] 13 Nov, 2010 [facility] [address] [id number] [address] [place] [address], [place] [address] 17 Apr, 2010 [facility] [address] [id number] [address] [place] [address], [place] [address] 07 Jan, 2010 [facility] [address] [id number] [address] [place] [address], [place] [address] 24 Dec, 2009 [facility] [address] [id number] [address] [place] [address], [place] [address] 11 Dec, 2009 [facility] [address] [id number] [address] [place] [address], [place] [address] 29 Nov, 2009 [facility] [address] [id number] [address] [place] [address], [place] [address] June, [facility] [address] [id number] [address] [place] [address], [place] [address] 29 Jan, 2009 [facility] [address] [id number] [address] [place] [address], [place] [address] 28 Jan, 2009 [facility] [address] [id number] [address] [place] [address], [place] [address] 23 Jan, 2009 [facility] [address] [id number] [address] [place] [address], [place] [address] 22 Jan, 2009 [facility] [address] [id number] [address] [place] [address], [place] [address] 16 Jan, 2009 [facility] [address] [id number] [address] [place] [address], [place] [address] 15 Jan, 2009 [facility] [address] [id number] [address] [place] [address], [place] [address] 15 Jan, 2009 [facility] [address] [id number] [address] [place] [address], [place] [address] 11 Jan, 2009 [facility] [address] [id number] [address] [place] [address], [place] [address] 11 Jan, 2009 [facility] [address] [facility] [id number] [address] [place] [address] Jan, [facility] [address] [facility] [id number] [address] [place] [address] Jan, [facility] [address] [facility] [id number] [address] [place] [address] Jan, [facility] [address] [facility] [id number] [address] [place] [address] Dec, [facility] [address] [facility] [id number] [address] [place] [address] Dec, [facility] [address] [facility] [id number] [address] [place] [address] Dec, [facility] [address] [facility] [id number] [address] [place] [address] Dec, [facility] [address] [facility] [id number] [address] [place] [address] Nov, [facility] [address] [facility] [id number] [address] [place] [address] Oct, IMMUNIZATIONS No Known Immunizations SOCIAL HISTORY [...] knee pseudogout s tatus post joint fluid analysis-[facility] 09/20/16 Hospitalization History kidneys--[facility] 11[facility]2017 Hospitalization History Diverticulitis--[facility] 06/2018
--- OUTSIDE RECORDS SUMMARY | 2019-07-04 10:13 | XMS REPORT ---
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 Active 713804157 Problem Insomnia, unspecified G47.00 Active 026554859 Problem Chronic kidney disease, stage 3 N18.3 Active 844779176 Problem 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 455140764 Problem Gout of left knee due to renal impairment, unspe cified chronicity M10.362 Active 314984101 Problem Mood disorder F39 Active 141216 05 Problem Essential hypertension I10 Active 58494739 Problem Primary osteoarthritis of left knee M17.12 Active 183835254222001 Problem Kidney stone N20.0 Active 0971730 7 Problem Proteinuria R80.9 Active 45296986 Problem Sinusitis J32.9 Active 39378031 Problem Dependence on renal dialysis Z99.2 A ctive 906140913 Problem Delayed gastric emptying K30 Activ e 914814695 Problem Gastroesophageal reflux disease, esophagitis pre sence not specified K21.9 Active 019142260 Problem End stage renal disease N18.6 Active 34512561 Problem Chronic kidney disease, stage V (very severe) N18. 5 Active 881843005 Problem Hypertriglyceridemia E78.1 Active 414979878 Problem Coronary atherosclerosis of unspecified type of vessel, twin hills or graft I25.10 Active 393153488 Problem End stage kidney disease N18.6 Activ e 19225992 Problem Type 2 diabetes mellitus with hyperglycemia E11.65 Active 934598290330877 Problem Hypoglycemia E16.2 Active 8713441 03 Problem Diabetes E11.9 Active 005914164 ALLERGIES No Information ENCOUNTERS Encounter Location Date Diagnosis [facility] [address] [id number] [place] [address] 16 Apr, 2019 Type 2 diabetes mellitus with diabetic n ephropathy E11.21 and Other viral warts B07.8 [place] [address] [address] Jan, Other viral warts B07.8 ; Diabetes E11.9 ; Dependence on renal dialysis Z99.2 and End stage renal disease N18.6 [facility] [address] [address] Oct, Type 2 diabetes mellitus with diabetic n ephropathy E11.21 ; Hypoglycemia E16.2 and Dermatofibroma D23.9 [place] [address] [address] Oct, [place] [address] [address] Jul, Type 2 diabetes mellitus with hyperglyce fareed E11.65 [place] [address] [address] Jul, Type 2 diabetes mellitus with hyperglyce fareed E11.65 [place] [address] [address] Jul, Type 2 diabetes mellitus with hyperglyce fareed E11.65 [place] [address] [address] June, Type 2 diabetes mellitus with hyperglyce fareed E11.65 ; End stage kidney disease N18.6 and Callus L84 [place] [address] [address] May, [facility] [address] [address] May, Essential hypertension I10 [facility] [address] [address] Apr, [place] [address] [address] Apr, Type 2 diabetes mellitus with hyperglyce fareed E11.65 and Essential hypertension I10 [facility] [address] [address] Apr, [facility] [address] [address] 13 Apr, 2018 Type 2 diabetes mellitus with hyperglyce fareed E11.65 [place] [address] [address] Apr, [place] [address] [address] Mar, Type 2 diabetes mellitus with hyperglyce fareed E11.65 [place] [address] [address] Mar, Type 2 diabetes mellitus with diabetic n ephropathy E11.21 ; End stage kidney disease N18.6 ; Callus L84 and Onychomycosis B35.1 [place] [address] [address] Feb, [facility] [address] [facility] [id number] [address] [place] [address] Feb, Sinusitis J32.9 ; Nausea R11 .0 and Otalgia H92.09 [place] [address] [address] Jan, [place] [address] [address] Jan, [place] [address] [address] Jan, Essential hypertension I10 ; Gout, unspe cified M10.9 ; Coronary atherosclerosis of unspecified type of vessel, twin hills or graft I25.10 ; Mixed hyperlipidemia E78.2 and Type 2 diabetes mellitus with hyperglycemia E11.65 [place] [address] [address] Dec, Chronic kidney disease, stage 3 N18.3 ; Proteinuria R80.9 ; Diabetes mellitus E11.9 ; Acute kidney failure, unspecified N17.9 and Mixed hyperlipidemia E78.2 [place] [address] [address] Dec, Chronic kidney disease, stage 3 N18.3 ; Essential hypertension I10 ; Proteinuria R80.9 ; Diabetes mellitus E11.9 ; Kidney stone N20.0 ; Acute kidney failure, unspecified N17.9 ; Edema R60.9 and Mixed hyperlipidemia E78.2 [place] [address] [address] 14 Dec, 2017 Type 2 diabetes mellitus with hyperglyce fareed E11.65 [place] [address] [address] Dec, Chronic kidney disease, stage 3 N18.3 [place] [address] [address] 06 Dec, 2017 Type 2 diabetes mellitus with hyperglyce fareed E11.65 [place] [address] [address] Dec, [place] [address] [address] Nov, Type 2 diabetes mellitus with hyperglyce fareed E11.65 [place] [address] [address] Nov, [place] [address] [address] Nov, Chronic kidney disease, stage V (very se zahra) N18.5 ; Type 2 diabetes mellitus with hyperglycemia E11.65 ; Encounter for immunization Z23 and Delayed gastric emptying K30 [address] [address] Nov, [place] [address] [address] 20 Oct, 2017 Essential hypertension I10 ; Coronary at herosclerosis of unspecified type of vessel, twin hills or graft I25.10 ; Type 2 diabetes mellitus with hyperglycemia E11.65 and Gout, unspecified M10.9 [place] [address] [address] 07 Oct, 2017 Chronic kidney disease, stage V (very se zahra) N18.5 [place] [address] [address] 07 Oct, 2017 Mixed hyperlipidemia E78.2 [place] [address] [address] Sep, Type 2 diabetes mellitus with hyperglyce fareed E11.65 [place] [address] [address] Sep, Mixed hyperlipidemia E78.2 [place] [address] [address] Sep, Chronic kidney disease, stage V (very se zahra) N18.5 [place] [address] [address] Sep, Type 2 diabetes mellitus with hyperglyce fareed E11.65 and Essential hypertension I10 [place] [address] [address] Sep, Type 2 diabetes mellitus with hyperglyce fareed E11.65 [place] [address] [address] Aug, Gout, unspecified M10.9 ; Gastroesophage al reflux disease, esophagitis presence not specified K21.9 ; Mood disorder F39 and Coronary atherosclerosis of unspecified type of vessel, twin hills or graft I25.10 [place] [address] [address] Aug, [place] [address] [address] June, Type 2 diabetes mellitus with hyperglyce fareed E11.65 [place] [address] [address] May, Mood disorder F39 ; Gastroesophageal ref lux disease, esophagitis presence not specified K21.9 ; Gout, unspecified M10.9 ; Coronary atherosclerosis of unspecified type of vessel, twin hills or graft I25.10 and Type 2 diabetes mellitus with hyperglycemia E11.65 [place] [address] [address] May, Type 2 diabetes mellitus with hyperglyce fareed E11.65 [facility] [address] [address] Apr, Diabetes E11.9 and Mood disorder F39 [facility] [address] [address] 15 Mar, 2017 Primary osteoarthritis of left knee M17. 12 and Tear of lateral meniscus of left knee, unspecified tear type, unspecified whether old or current tear, initial encounter S83.282A [place] [address] [address] Feb, Mood disorder F39 [place] [address] [address] 09 Feb, 2017 Pseudogout M11.20 [place] [address] [address] 27 Jan, 2017 Other medical terminologist (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 therapy Z 79.899 [facility] [address] [facility] [id number] [place] [address] Jan, [place] [address] [address] Jan, Pseudogout M11.20 ; Type 2 diabetes familia itus with hyperglycemia E11.65 and Other retirement (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 [place] [address] [address] Jan, Gout of left knee due to renal impairmen t, unspecified chronicity M10.362 ; Type 2 diabetes mellitus with diabetic nephropathy E11.21 ; Synovial cyst of popliteal space [Mejia], left knee M71.22 and Low back pain M54.5 [place] [address] [address] 21 Dec, 2016 Pseudogout M11.20 [place] [address] [address] 14 Dec, 2016 [place] [address] [address] Dec, Type 2 diabetes mellitus with diabetic n ephropathy E11.21 and Right anterior knee pain M25.561 [place] [address] [address] Nov, Pseudogout M11.20 [place] [address] [address] Nov, Pseudogout M11.20 ; Chronic kidney disea se, stage 3 N18.3 ; Mixed hyperlipidemia E78.2 ; Gout, unspecified M10.9 ; Coronary atherosclerosis of unspecified type of vessel, twin hills or graft I25.10 ; Mood disorder F39 and Gastroesophageal reflux disease, esophagitis presence not specified K21.9 [place] [address] [address] Nov, [place] [address] [address] Oct, Pseudogout M11.20 [place] [address] [address] Sep, Pseudogout M11.20 [place] [address] [address] Sep, Pseudogout M11.20 [place] [address] [address] Sep, [place] [address] [id number] [id number] Aug, [place] [address] [address] Aug, Diabetes E11.9 ; Chronic kidney disease, stage 3 N18.3 ; Hyperuricemia E79.0 ; Mixed hyperlipidemia E78.2 ; Gastroesophageal reflux disease, esophagitis presence not specified K21.9 ; Gout, unspecified M10.9 ; Coronary atherosclerosis of unspecified type of vessel, twin hills or graft I25.10 and Mood disorder F39 [place] [address] [address] June, [facility] [address] [address] June, [facility] [address] [address] June, [facility] [address] [address] May, Chronic renal failure, stage 3 (moderate ) N18.3 [facility] [address] [address] May, Diabetes E11.9 [place] [address] [address] May, [place] [address] [address] Apr, [place] [address] [address] Apr, [place] [address] [address] Apr, Cellulitis of right lower extremity L03. 115 and Diabetes E11.9 [place] [address] [address] Apr, Type 2 diabetes mellitus with hyperglyce fareed E11.65 [place] [address] [address] Mar, Cellulitis of right lower extremity L03. 115 and Low back pain M54.5 [facility] [address] [address] Mar, [place] [address] [address] Mar, Cellulitis of right lower extremity L03. 115 [place] [address] [address] Mar, Cellulitis of right lower extremity L03. 115 [place] [address] [address] Feb, Cellulitis of right lower extremity L03. 115 [place] [address] [address] Feb, Cellulitis of right lower extremity L03. 115 [place] [address] [address] Feb, [place] [address] [address] Feb, Leukocytosis, unspecified type D72.829 ; Chronic renal failure, stage 3 (moderate) N18.3 and Type 2 diabetes mellitus with hyperglycemia E11.65 [place] [address] [address] Feb, Leukocytosis, unspecified type D72.829 [place] [address] [address] Feb, [place] [address] [address] Feb, Cellulitis of right lower extremity L03. 115 ; Thrush B37.0 ; Gout of left knee due to renal impairment, unspecified chronicity M10.362 and Chronic renal failure, stage 3 (moderate) N18.3 [place] [address] [address] Feb, [place] [address] [address] Feb, Right foot infection L08.9 ; Type 2 diab etes mellitus with hyperglycemia E11.65 ; Arthralgia of left knee M25.562 ; Chronic kidney disease, stage 3 N18.3 and Diabetes E11.9 [place] [address] [address] Feb, [place] [address] [address] Feb, Diabetes E11.9 ; Arthralgia of left knee M25.562 and Thrush B37.0 [place] [address] [address] Jan, [place] [address] [address] Jan, Type 2 diabetes mellitus with hyperglyce fareed E11.65 ; Chronic renal failure, stage 3 (moderate) N18.3 and Leukocytosis, unspecified type D72.829 [place] [address] [address] Jan, Type 2 diabetes mellitus with hyperglyce fareed E11.65 [place] [address] [address] Dec, Gout of left knee due to renal impairmen t, unspecified chronicity M10.[address] [address] Dec, Gout of left knee due to renal impairmen t, unspecified chronicity M10.362 and Diabetes E11.9 [place] [address] [address] Dec, [address] [address] Dec, [facility] [place] [id number] [address] [place] [address] Dec, [address] [address] Dec, Chronic kidney disease, stage 3 N18.3 ; Type 2 diabetes mellitus with diabetic nephropathy E11.21 ; Type 2 diabetes mellitus with hyperglycemia E11.65 and 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 [facility] [address] [id number] [address] [place] [address] 05 Dec, 2015 Leukocytosis, unspecified ty pe D72.829 ; Chronic renal failure, stage 3 (moderate) N18.3 and Nausea R11.[address] [address] Nov, [facility] [address] [address] Jul, [facility] [address] [address] Jul, Diabetes E11.9 ; Low back pain M54.5 and Other chronic pain G89.29 [place] [address] [address] June, [facility] [address] [address] June, [facility] [address] [address] Jan, Viral illness B34.9 [place] [address] [address] Jan, Type 2 diabetes mellitus with hyperglyce fareed E11.65 ; Pain in right foot M79.671 and Localized edema R60.0 [place] [address] [address] Jan, [place] [address] [address] Dec, Right foot pain M79.671 ; Insomnia, unsp ecified type G47.00 and Diabetes E11.9 [place] [address] [address] Dec, Pain in right foot M79.671 [place] [address] [address] Nov, [place] [address] [address] Sep, [place] [address] [address] Sep, Diabetes mellitus, type II 250.00 [place] [address] [address] May, [place] [address] [address] 13 May, 2014 [facility] [place] [facility] [address] [facility] [id number] [place] [address] 19 Apr, 2014 [facility] [place] [facility] [address] [id number] [place] [address] 19 Apr, 2014 [facility] [place] [facility] [address] [id number] [place] [address] 16 Apr, 2014 [facility] [place] [facility] [address] [id number] [place] [address] 16 Apr, 2014 [facility] [place] [facility] [address] [id number] [place] [address] 12 Apr, 2014 [facility] [place] [facility] [address] [id number] [place] [address] 12 Apr, 2014 [facility] [place] [facility] [address] [id number] [place] [address] 05 Apr, 2014 [facility] [place] [facility] [address] [id number] [place] [address] 05 Apr, 2014 [facility] [place] [facility] [address] [id number] [place] [address] 18 Jan, 2014 [facility] [place] [address] [id number] [place] [address] 18 Jan, 2014 [facility] [place] [facility] [address] [id number] [place] [address] 15 Jan, 2014 [facility] [place] [facility] [address] [id number] [place] [address] 15 Jan, 2014 [facility] [place] [address] [id number] [place] [address] 10 Dec, 2013 [facility] [place] [facility] [address] [id number] [place] [address] 10 Dec, 2013 [facility] [place] [address] [id number] [place] [address] 13 Nov, 2013 [facility] [place] [facility] [address] [id number] [place] [address] 13 Nov, 2013 [facility] [place] [facility] [address] [id number] [place] [address] Oct, 2013 [facility] [place] [facility] [address] [facility] [id number] [place] [address] Oct, 2013 [facility] [place] [facility] [address] [facility] [id number] [place] [address] Oct, 2013 [facility] [place] [facility] [address] [id number] [place] [address] Oct, 2013 [facility] [place] [facility] [address] [facility] [id number] [place] [address] Sep, [facility] [place] [facility] [address] [facility] [id number] [place] [address] Sep, [facility] [place] [facility] [address] [id number] [place] [address] Sep, [facility] [place] [address] [id number] [place] [address] Sep, [facility] [address] [id number] [place] [address] Sep, [facility] [place] [facility] [address] [id number] [place] [address] Sep, [facility] [address] [id number] [place] [address] Sep, [facility] [place] [facility] [address] [id number] [place] [address] Sep, [facility] [place] [facility] [address] [id number] [place] [address] Sep, [facility] [place] [facility] [address] [facility] [id number] [place] [address] Sep, [facility] [address] [id number] [place] [address] Sep, [facility] [address] [id number] [place] [address] Sep, [facility] [address] [id number] [place] [address] Aug, [facility] [place] [facility] [address] [id number] [place] [address] 28 Aug, 2013 [facility] [place] [facility] [address] [id number] [place] [address] Aug, [facility] [place] [facility] [address] [facility] [id number] [place] [address] Aug, [facility] [place] [facility] [address] [id number] [place] [address] June, [facility] [place] [facility] [address] [id number] [place] [address] 24 May, 2013 [facility] [place] [facility] [address] [id number] [place] [address] 24 May, 2013 [facility] [address] [id number] [place] [address] 21 May, 2013 [facility] [address] [id number] [place] [address] 18 May, 2013 [facility] [place] [address] [id number] [place] [address] 17 May, 2013 [facility] [place] [facility] [address] [id number] [place] [address] 17 May, 2013 [facility] [place] [facility] [address] [id number] [place] [address] 16 May, 2013 [facility] [place] [facility] [address] [id number] [place] [address] 16 May, 2013 [facility] [address] [id number] [place] [address] 14 May, 2013 [facility] [address] [id number] [place] [address] 14 May, 2013 [facility] [address] [id number] [place] [address] 14 May, 2013 [facility] [address] [id number] [place] [address] 14 May, 2013 [facility] [address] [id number] [place] [address] Apr, [facility] [place] [facility] [address] [id number] [place] [address] Apr, [facility] [place] [facility] [address] [id number] [place] [address] Mar, [facility] [place] [facility] [address] [id number] [place] [address] Mar, [facility] [place] [address] [id number] [place] [address] Dec, [facility] [place] [facility] [address] [id number] [place] [address] Dec, [facility] [place] [facility] [address] [id number] [place] [address] Dec, [facility] [place] [facility] [address] [id number] [place] [address] Dec, [facility] [place] [facility] [address] [id number] [place] [address] Nov, [facility] [place] [address] [id number] [place] [address] Nov, [facility] [address] [id number] [place] [address] Oct, [facility] [address] [id number] [place] [address] Oct, [facility] [place] [address] [id number] [place] [address] Aug, [facility] [address] [id number] [place] [address] Aug, [facility] [address] [place] [id number] [place] [address] Aug, [facility] [place] [facility] [address] [id number] [place] [address] Jul, [facility] [place] [facility] [address] [id number] [place] [address] June, [facility] [place] [facility] [address] [id number] [place] [address] June, [facility] [address] [id number] [place] [address] Apr, [facility] [place] [facility] [address] [id number] [place] [address] Mar, [facility] [address] [id number] [place] [address] Mar, [facility] [place] [facility] [address] [id number] [place] [address] Mar, [facility] [address] [id number] [place] [address] Mar, [facility] [place] [facility] [address] [id number] [place] [address] Mar, [facility] [address] [place] [id number] [place] [address] Feb, [facility] [place] [facility] [address] [id number] [place] [address] Feb, [facility] [address] [place] [id number] [place] [address] Feb, [facility] [place] [facility] [address] [id number] [place] [address] Feb, [facility] [address] [id number] [place] [address] Jan, [facility] [address] [id number] [place] [address] Jan, [facility] [address] [id number] [place] [address] Dec, [facility] [address] [id number] [place] [address] Dec, [facility] [address] [id number] [place] [address] Dec, [facility] [address] [id number] [place] [address] Dec, [facility] [address] [id number] [place] [address] Oct, [facility] [address] [id number] [place] [address] Aug, [facility] [address] [id number] [place] [address] Jul, [facility] [address] [id number] [place] [address] June, [facility] [address] [id number] [place] [address] June, [facility] [address] [id number] [place] [address] June, [facility] [address] [id number] [place] [address] June, [facility] [id number] [place] [address] June, [facility] [address] [id number] [place] [address] May, [facility] [id number] [place] [address] May, [facility] [id number] [place] [address] Apr, [facility] [id number] [place] [address] Apr, [facility] [address] [id number] [place] [address] Mar, [facility] [id number] [place] [address] Feb, [facility] [address] [id number] [place] [address] Nov, [facility] [id number] [place] [address] Nov, [facility] [address] [id number] [place] [address] 13 Nov, 2010 [facility] [address] [facility] [id number] [place] [address] 17 Apr, 2010 [facility] [address] [id number] [place] [address] 07 Jan, 2010 [facility] [address] [id number] [place] [address] 24 Dec, 2009 [facility] [address] [id number] [place] [address] 11 Dec, 2009 [facility] [address] [id number] [place] [address] 29 Nov, 2009 [facility] [address] [id number] [place] [address] June, [facility] [address] [id number] [place] [address] 29 Jan, 2009 [facility] [address] [id number] [place] [address] 28 Jan, 2009 [facility] [address] [id number] [place] [address] 23 Jan, 2009 [facility] [address] [id number] [place] [address] 22 Jan, 2009 [facility] [address] [id number] [place] [address] 16 Jan, 2009 [facility] [address] [id number] [place] [address] 15 Jan, 2009 [facility] [address] [id number] [place] [address] 15 Jan, 2009 [facility] [address] [id number] [place] [address] 11 Jan, 2009 [facility] [address] [id number] [place] [address] 11 Jan, 2009 [facility] [address] [id number] [place] [address] Jan, [facility] [id number] [place] [address] Jan, [facility] [address] [address] Jan, [facility] [id number] [place] [address] Dec, [facility] [address] [address] Dec, [facility] [address] [address] Dec, [facility] [address] [address] Dec, [facility] [address] [address] Nov, [facility] [address] [address] Oct, IMMUNIZATIONS No Known Immunizations SOCIAL HISTORY Never Assessed REASON FOR VISIT PLAN OF CARE VITAL SIGNS MEDICATIONS No Known Medications RESULTS No Results PROCEDURES No Known [...] knee pseudogout s tatus post joint fluid analysis-[facility] 09/20/16 Hospitalization History kidneys--11/2017 Hospitalization History Diverticulitis--[facility] 06/2018
--- OUTSIDE RECORDS SUMMARY | 2019-07-04 10:14 | XMS REPORT ---
Author Author Charles Abraham Organization [facility] Address [address] [place] [address] Care Team Providers Care National Account Representative Name Role Phone CLAUDIO Abraham Unavailable PROBLEMS Type Condition ICD9-CM Code TPT55-SS Code Onset Dates Condition S tatus SNOMED Code Problem custodial 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 Active 461579267 Problem Insomnia, unspecified G47.00 Active 506388880 Problem Chronic kidney disease, stage 3 N18.3 Active 814446376 Problem 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 025633967 Problem Gout of left knee due to renal impairment, unspe cified chronicity M10.362 Active 453268284 Problem Mood disorder F39 Active 684861 05 Problem Essential hypertension I10 Active 93069227 Problem Primary osteoarthritis of left knee M17.12 Active 552056836645966 Problem Kidney stone N20.0 Active 2948546 7 Problem Proteinuria R80.9 Active 75547105 Problem Sinusitis J32.9 Active 24716024 Problem Dependence on renal dialysis Z99.2 A ctive 214129323 Problem Delayed gastric emptying K30 Activ e 551869455 Problem Gastroesophageal reflux disease, esophagitis pre sence not specified K21.9 Active 563641966 Problem End stage renal disease N18.6 Active 86790100 Problem Chronic kidney disease, stage V (very severe) N18. 5 Active 572187523 Problem Hypertriglyceridemia E78.1 Active 320899689 Problem Coronary atherosclerosis of unspecified type of vessel, iqugmiut or graft I25.10 Active 598182666 Problem End stage kidney disease N18.6 Activ e 18183134 Problem Type 2 diabetes mellitus with hyperglycemia E11.65 Active 580190162555576 Problem Hypoglycemia E16.2 Active 1082455 03 Problem Diabetes E11.9 Active 521988667 ALLERGIES No Information ENCOUNTERS Encounter Location Date Diagnosis [facility] [address] [id number] [place] [address] Apr, [place] [address] [address] Jan, Other viral warts B07.8 ; Diabetes E11.9 ; Dependence on renal dialysis Z99.2 and End stage renal disease N18.6 [place] [address] [address] Oct, Type 2 diabetes mellitus with diabetic n ephropathy E11.21 ; Hypoglycemia E16.2 and Dermatofibroma D23.9 [place] [address] [address] Oct, [place] [address] [address] Jul, Type 2 diabetes mellitus with hyperglyce fareed E11.65 [place] [address] [address] Jul, Type 2 diabetes mellitus with hyperglyce fareed E11.65 [place] [address] [address] Jul, Type 2 diabetes mellitus with hyperglyce fareed E11.65 [place] [address] [address] June, Type 2 diabetes mellitus with hyperglyce fareed E11.65 ; End stage kidney disease N18.6 and Callus L84 [place] [address] [address] May, [place] [address] [address] May, Essential hypertension I10 [place] [address] [address] Apr, [place] [address] [address] Apr, Type 2 diabetes mellitus with hyperglyce fareed E11.65 and Essential hypertension I10 [place] [address] [address] Apr, [place] [address] [address] Apr, Type 2 diabetes mellitus with hyperglyce fareed E11.65 [place] [address] [address] Apr, [place] [address] [address] Mar, Type 2 diabetes mellitus with hyperglyce fareed E11.65 [place] [address] [address] Mar, Type 2 diabetes mellitus with diabetic n ephropathy E11.21 ; End stage kidney disease N18.6 ; Callus L84 and Onychomycosis B35.1 [place] [address] [address] Feb, [facility] [address] [facility] [id number] [address] [address] Feb, Sinusitis J32.9 ; Nausea R11 .0 and Otalgia H92.09 [place] [address] [address] Jan, [place] [address] [address] Jan, [place] [address] [address] Jan, Essential hypertension I10 ; Gout, unspe cified M10.9 ; Coronary atherosclerosis of unspecified type of vessel, iqugmiut or graft I25.10 ; Mixed hyperlipidemia E78.2 and Type 2 diabetes mellitus with hyperglycemia E11.65 [place] [address] [address] Dec, Chronic kidney disease, stage 3 N18.3 ; Proteinuria R80.9 ; Diabetes mellitus E11.9 ; Acute kidney failure, unspecified N17.9 and Mixed hyperlipidemia E78.2 [place] [address] [address] Dec, Chronic kidney disease, stage 3 N18.3 ; Essential hypertension I10 ; Proteinuria R80.9 ; Diabetes mellitus E11.9 ; Kidney stone N20.0 ; Acute kidney failure, unspecified N17.9 ; Edema R60.9 and Mixed hyperlipidemia E78.2 [place] [address] [address] Dec, Type 2 diabetes mellitus with hyperglyce fareed E11.65 [place] [address] [address] Dec, Chronic kidney disease, stage 3 N18.3 [place] [address] [address] Dec, Type 2 diabetes mellitus with hyperglyce fareed E11.65 [place] [address] [address] Dec, [place] [address] [address] Nov, Type 2 diabetes mellitus with hyperglyce fareed E11.65 [place] [address] [address] Nov, [address] [address] Nov, Chronic kidney disease, stage V (very se zahra) N18.5 ; Type 2 diabetes mellitus with hyperglycemia E11.65 ; Encounter for immunization Z23 and Delayed gastric emptying K30 [place] [address] [address] Nov, [address] [address] Oct, Essential hypertension I10 ; Coronary at herosclerosis of unspecified type of vessel, iqugmiut or graft I25.10 ; Type 2 diabetes mellitus with hyperglycemia E11.65 and Gout, unspecified M10.9 [place] [address] [address] Oct, Chronic kidney disease, stage V (very se zahra) N18.5 [place] [address] [address] 07 Oct, 2017 Mixed hyperlipidemia E78.2 [place] [address] [address] Sep, Type 2 diabetes mellitus with hyperglyce fareed E11.65 [place] [address] [address] Sep, Mixed hyperlipidemia E78.2 [place] [address] [address] 16 Sep, 2017 Chronic kidney disease, stage V (very se zahra) N18.5 [place] [address] [address] Sep, Type 2 diabetes mellitus with hyperglyce fareed E11.65 and Essential hypertension I10 [place] [address] [address] Sep, Type 2 diabetes mellitus with hyperglyce fareed E11.65 [place] [address] [address] Aug, Gout, unspecified M10.9 ; Gastroesophage al reflux disease, esophagitis presence not specified K21.9 ; Mood disorder F39 and Coronary atherosclerosis of unspecified type of vessel, iqugmiut or graft I25.10 [place] [address] [address] Aug, [place] [address] [address] June, Type 2 diabetes mellitus with hyperglyce fareed E11.65 [place] [address] [address] May, Mood disorder F39 ; Gastroesophageal ref lux disease, esophagitis presence not specified K21.9 ; Gout, unspecified M10.9 ; Coronary atherosclerosis of unspecified type of vessel, iqugmiut or graft I25.10 and Type 2 diabetes mellitus with hyperglycemia E11.65 [place] [address] [address] May, Type 2 diabetes mellitus with hyperglyce fareed E11.65 [place] [address] [place] [id number] [place] [address] Apr, Diabetes E11.9 and Mood disorder F39 [facility] [address] [place] [id number] [place] [address] 15 Mar, 2017 Primary osteoarthritis of left knee M17. 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 [facility] [address] [facility] [id number] [address] [place] [address] Jan, [place] [address] [address] Jan, Pseudogout M11.20 ; Type 2 diabetes familia itus with hyperglycemia E11.65 and Other mcc (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 [place] [address] [address] Jan, Gout of left knee due to renal impairmen t, unspecified chronicity M10.362 ; Type 2 diabetes mellitus with diabetic nephropathy E11.21 ; Synovial cyst of popliteal space [Mejia], left knee M71.22 and Low back pain M54.5 [place] [address] [address] 21 Dec, 2016 Pseudogout M11.20 [place] [address] [address] 14 Dec, 2016 [place] [address] [address] Dec, Type 2 diabetes mellitus with diabetic n ephropathy E11.21 and Right anterior knee pain M25.561 [place] [address] [address] Nov, Pseudogout M11.20 [place] [address] [address] Nov, Pseudogout M11.20 ; Chronic kidney disea se, stage 3 N18.3 ; Mixed hyperlipidemia E78.2 ; Gout, unspecified M10.9 ; Coronary atherosclerosis of unspecified type of vessel, iqugmiut or graft I25.10 ; Mood disorder F39 and Gastroesophageal reflux disease, esophagitis presence not specified K21.9 [place] [address] [address] Nov, [place] [address] [address] Oct, Pseudogout M11.20 [place] [address] [address] Sep, Pseudogout M11.20 [place] [address] [address] Sep, Pseudogout M11.20 [place] [address] [address] Sep, [place] [address] [place] [id number] [id number] Aug, [place] [address] [address] Aug, Diabetes E11.9 ; Chronic kidney disease, stage 3 N18.3 ; Hyperuricemia E79.0 ; Mixed hyperlipidemia E78.2 ; Gastroesophageal reflux disease, esophagitis presence not specified K21.9 ; Gout, unspecified M10.9 ; Coronary atherosclerosis of unspecified type of vessel, iqugmiut or graft I25.10 and Mood disorder F39 [place] [address] [place] [id number] [place] [address] June, [facility] [address] [address] June, [facility] [address] [address] June, [facility] [address] [address] May, Chronic renal failure, stage 3 (moderate ) N18.3 [facility] [address] [address] May, Diabetes E11.9 [place] [address] [address] May, [facility] [address] [address] Apr, [place] [address] [address] Apr, [facility] [address] [address] Apr, Cellulitis of right lower extremity L03. 115 and Diabetes E11.9 [place] [address] [address] Apr, Type 2 diabetes mellitus with hyperglyce fareed E11.65 [place] [address] [address] Mar, Cellulitis of right lower extremity L03. 115 and Low back pain M54.5 [facility] [address] [address] Mar, [facility] [address] [address] Mar, Cellulitis of right lower extremity L03. 115 [place] [address] [address] Mar, Cellulitis of right lower extremity L03. 115 [place] [address] [address] Feb, Cellulitis of right lower extremity L03. 115 [place] [address] [address] Feb, Cellulitis of right lower extremity L03. 115 [place] [address] [address] Feb, [place] [address] [address] Feb, Leukocytosis, unspecified type D72.829 ; Chronic renal failure, stage 3 (moderate) N18.3 and Type 2 diabetes mellitus with hyperglycemia E11.65 [place] [address] [address] Feb, Leukocytosis, unspecified type D72.829 [place] [address] [address] Feb, [place] [address] [address] Feb, Cellulitis of right lower extremity L03. 115 ; Thrush B37.0 ; Gout of left knee due to renal impairment, unspecified chronicity M10.362 and Chronic renal failure, stage 3 (moderate) N18.3 [place] [address] [address] Feb, [place] [address] [address] Feb, Right foot infection L08.9 ; Type 2 diab etes mellitus with hyperglycemia E11.65 ; Arthralgia of left knee M25.562 ; Chronic kidney disease, stage 3 N18.3 and Diabetes E11.9 [place] [address] [address] Feb, [place] [address] [address] Feb, Diabetes E11.9 ; Arthralgia of left knee M25.562 and Thrush B37.0 [place] [address] [address] Jan, [address] [address] Jan, Type 2 diabetes mellitus with hyperglyce fareed E11.65 ; Chronic renal failure, stage 3 (moderate) N18.3 and Leukocytosis, unspecified type D72.829 [place] [address] [address] Jan, Type 2 diabetes mellitus with hyperglyce fareed E11.65 [place] [address] [address] Dec, Gout of left knee due to renal impairmen t, unspecified chronicity M10.[address] [address] Dec, Gout of left knee due to renal impairmen t, unspecified chronicity M10.362 and Diabetes E11.9 [place] [address] [address] Dec, [address] [address] Dec, [facility] [address] [address] Dec, [address] [address] Dec, Chronic kidney disease, stage 3 N18.3 ; Type 2 diabetes mellitus with diabetic nephropathy E11.21 ; Type 2 diabetes mellitus with hyperglycemia E11.65 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 [facility] [address] [address] 05 Dec, 2015 Leukocytosis, unspecified ty pe D72.829 ; Chronic renal failure, stage 3 (moderate) N18.3 and Nausea R11.[address] [address] Nov, [facility] [address] [address] Jul, [place] [address] [address] Jul, Diabetes E11.9 ; Low back pain M54.5 and Other chronic pain G89.29 [place] [address] [address] June, [facility] [address] [address] June, [place] [address] [address] Jan, Viral illness B34.9 [place] [address] [address] Jan, Type 2 diabetes mellitus with hyperglyce fareed E11.65 ; Pain in right foot M79.671 and Localized edema R60.0 [place] [address] [address] Jan, [place] [address] [address] Dec, Right foot pain M79.671 ; Insomnia, unsp ecified type G47.00 and Diabetes E11.9 [place] [address] [address] Dec, Pain in right foot M79.671 [place] [address] [address] Nov, [place] [address] [address] Sep, [place] [address] [address] Sep, Diabetes mellitus, type II 250.00 [place] [address] [address] May, [facility] [address] [id number] [place] [address] 13 May, 2014 [facility] [address] [id number] [place] [address] 19 Apr, 2014 [facility] [address] [id number] [place] [address] 19 Apr, 2014 [facility] [address] [id number] [place] [address] 16 Apr, 2014 [facility] [address] [id number] [place] [address] 16 Apr, 2014 [facility] [address] [id number] [place] [address] 12 Apr, 2014 [facility] [address] [id number] [place] [address] 12 Apr, 2014 [facility] [address] [id number] [place] [address] 05 Apr, 2014 [facility] [address] [id number] [place] [address] 05 Apr, 2014 [facility] [address] [id number] [place] [address] 18 Jan, 2014 [facility] [address] [id number] [place] [address] 18 Jan, 2014 [facility] [address] [id number] [place] [address] 15 Jan, 2014 [facility] [address] [id number] [place] [address] 15 Jan, 2014 [facility] [address] [id number] [place] [address] 10 Dec, 2013 [facility] [address] [place] [id number] [place] [address] 10 Dec, 2013 [facility] [address] [id number] [place] [address] 13 Nov, 2013 [facility] [address] [id number] [place] [address] Nov, [facility] [address] [id number] [place] [address] Oct, [facility] [address] [facility] [id number] [place] [address] Oct, [facility] [address] [facility] [id number] [place] [address] Oct, 2013 [facility] [address] [facility] [id number] [place] [address] Oct, [facility] [address] [facility] [id number] [place] [address] Sep, [facility] [address] [facility] [id number] [place] [address] Sep, [facility] [address] [id number] [place] [address] Sep, [facility] [address] [id number] [place] [address] Sep, [facility] [address] [facility] [id number] [place] [address] Sep, [facility] [address] [id number] [place] [address] Sep, [facility] [address] [id number] [place] [address] Sep, [facility] [address] [id number] [place] [address] Sep, [facility] [address] [facility] [id number] [place] [address] Sep, [facility] [address] [facility] [id number] [place] [address] Sep, [facility] [address] [facility] [id number] [place] [address] Sep, [facility] [address] [id number] [place] [address] Sep, [facility] [address] [facility] [id number] [place] [address] 28 Aug, 2013 [facility] [address] [id number] [place] [address] 28 Aug, 2013 [facility] [address] [id number] [place] [address] Aug, [facility] [address] [id number] [place] [address] Aug, [facility] [address] [id number] [place] [address] June, [facility] [address] [id number] [place] [address] 24 May, 2013 [facility] [address] [id number] [place] [address] 24 May, 2013 [facility] [address] [id number] [place] [address] 21 May, 2013 [facility] [address] [id number] [place] [address] 18 May, 2013 [facility] [address] [id number] [place] [address] 17 May, 2013 [facility] [address] [id number] [place] [address] 17 May, 2013 [facility] [address] [id number] [place] [address] 16 May, 2013 [facility] [address] [id number] [place] [address] 16 May, 2013 [facility] [address] [id number] [place] [address] 14 May, 2013 [facility] [address] [id number] [place] [address] 14 May, 2013 [facility] [address] [id number] [place] [address] 14 May, 2013 [facility] [address] [id number] [place] [address] 14 May, 2013 [facility] [address] [id number] [place] [address] Apr, [facility] [address] [id number] [place] [address] Apr, [facility] [address] [id number] [place] [address] Mar, [facility] [address] [id number] [place] [address] Mar, [facility] [address] [id number] [place] [address] Dec, [facility] [address] [id number] [place] [address] Dec, [facility] [address] [id number] [place] [address] Dec, [facility] [address] [place] [id number] [place] [address] Dec, [facility] [address] [id number] [place] [address] Nov, [facility] [address] [id number] [place] [address] Nov, [facility] [address] [id number] [place] [address] Oct, [facility] [address] [id number] [place] [address] Oct, [facility] [address] [id number] [place] [address] Aug, [facility] [address] [id number] [place] [address] Aug, [facility] [address] [id number] [place] [address] Aug, [facility] [address] [id number] [place] [address] Jul, [facility] [address] [id number] [place] [address] June, [facility] [address] [id number] [place] [address] June, [facility] [address] [id number] [place] [address] Apr, [facility] [address] [id number] [place] [address] Mar, [facility] [address] [id number] [place] [address] Mar, [facility] [address] [id number] [place] [address] Mar, [facility] [address] [id number] [place] [address] Mar, [facility] [address] [id number] [place] [address] Mar, [facility] [address] [id number] [place] [address] Feb, [facility] [address] [id number] [place] [address] Feb, [facility] [address] [id number] [place] [address] Feb, [facility] [address] [id number] [place] [address] Feb, [facility] [address] [id number] [place] [address] Jan, [facility] [address] [id number] [place] [address] Jan, [facility] [address] [id number] [place] [address] Dec, [facility] [address] [id number] [place] [address] Dec, [facility] [address] [id number] [place] [address] Dec, [facility] [address] [id number] [place] [address] Dec, [facility] [address] [id number] [place] [address] Oct, [facility] [address] [id number] [place] [address] Aug, [facility] [address] [id number] [place] [address] Jul, [facility] [address] [id number] [place] [address] June, [facility] [address] [id number] [place] [address] June, [facility] [address] [id number] [place] [address] June, [facility] [address] [id number] [place] [address] June, [facility] [address] [id number] [place] [address] June, [facility] [address] [id number] [place] [address] May, [facility] [address] [id number] [place] [address] May, [facility] [address] [id number] [place] [address] Apr, [facility] [address] [id number] [place] [address] Apr, [facility] [address] [id number] [place] [address] Mar, [facility] [id number] [place] [address] Feb, [facility] [address] [id number] [place] [address] Nov, [facility] [id number] [place] [address] Nov, [facility] [address] [id number] [place] [address] 13 Nov, 2010 [facility] [address] [id number] [place] [address] 17 Apr, 2010 [facility] [address] [id number] [place] [address] 07 Jan, 2010 [facility] [address] [id number] [place] [address] 24 Dec, 2009 [facility] [address] [id number] [place] [address] Dec, [facility] [address] [id number] [place] [address] 29 Nov, 2009 [facility] [address] [id number] [place] [address] June, [facility] [address] [id number] [place] [address] 29 Jan, 2009 [facility] [address] [id number] [place] [address] 28 Jan, 2009 [facility] [address] [id number] [place] [address] 23 Jan, 2009 [facility] [address] [id number] [place] [address] 22 Jan, 2009 [facility] [address] [id number] [place] [address] 16 Jan, 2009 [facility] [address] [id number] [place] [address] 15 Jan, 2009 [facility] [address] [id number] [place] [address] 15 Jan, 2009 [facility] [address] [id number] [place] [address] 11 Jan, 2009 [facility] [address] [id number] [place] [address] 11 Jan, 2009 [facility] [id number] [place] [address] Jan, [facility] [id number] [place] [address] Jan, [facility] [address] [id number] [place] [address] Jan, [facility] [address] [address] Dec, [facility] [address] [address] Dec, [facility] [address] [address] Dec, [facility] [address] [address] Dec, [facility] [address] [address] Nov, [facility] [address] [address] Oct, IMMUNIZATIONS No Known Immunizations SOCIAL HISTORY Never Assessed REASON FOR VISIT PLAN OF CARE VITAL SIGNS Height 73 in 2013-05-08 Weight 294.2 lbs 2013-05-08 Temperature 99.1 degrees Fahrenheit 2013-05-08 Heart Rate 84 bpm 2013-05-08 Respiratory Rate 24 2013-05-08 Blood pressure systolic 118 mmHg 2013-05-08 Blood pressure diastolic 72 mmHg 2013-05-08 MEDICATIONS Unknown Medications RESULTS No Results PROCEDURES [...] knee pseudogout s tatus post joint fluid analysis-[facility] 09/20/16 Hospitalization History kidneys--[facility] 11/2017 Hospitalization History Diverticulitis--[facility] 06/2018
--- OUTSIDE RECORDS SUMMARY | 2019-07-04 10:14 | XMS REPORT ---
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 Active 131570198 Problem Insomnia, unspecified G47.00 Active 904687172 Problem Chronic kidney disease, stage 3 N18.3 Active 332954307 Problem 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 864606700 Problem Gout of left knee due to renal impairment, unspe cified chronicity M10.362 Active 233332024 Problem Mood disorder F39 Active 686241 05 Problem Essential hypertension I10 Active 62417779 Problem Primary osteoarthritis of left knee M17.12 Active 904027355693970 Problem Kidney stone N20.0 Active 5338947 7 Problem Proteinuria R80.9 Active 61647789 Problem Sinusitis J32.9 Active 84212731 Problem Dependence on renal dialysis Z99.2 A ctive 606163509 Problem Delayed gastric emptying K30 Activ e 432834340 Problem Gastroesophageal reflux disease, esophagitis pre sence not specified K21.9 Active 496323141 Problem End stage renal disease N18.6 Active 26770172 Problem Chronic kidney disease, stage V (very severe) N18. 5 Active 993678592 Problem Hypertriglyceridemia E78.1 Active 225088349 Problem Coronary atherosclerosis of unspecified type of vessel, [place] or graft I25.10 Active 600178777 Problem End stage kidney disease N18.6 Activ e 48921992 Problem Type 2 diabetes mellitus with hyperglycemia E11.65 Active 996232323952822 Problem Hypoglycemia E16.2 Active 8344661 03 Problem Diabetes E11.9 Active 543361118 ALLERGIES No Information ENCOUNTERS Encounter Location Date Diagnosis [facility] [address] [id number] [place] [address] Jan, Other viral warts B07.8 ; Diabetes E11.9 ; Dependence on renal dialysis Z99.2 and End stage renal disease N18.6 [place] [address] [address] Oct, Type 2 diabetes mellitus with diabetic n ephropathy E11.21 ; Hypoglycemia E16.2 and Dermatofibroma D23.9 [place] [address] [address] Oct, [place] [address] [address] Jul, Type 2 diabetes mellitus with hyperglyce fareed E11.65 [place] [address] [address] Jul, Type 2 diabetes mellitus with hyperglyce fareed E11.65 [place] [address] [address] Jul, Type 2 diabetes mellitus with hyperglyce fareed E11.65 [place] [address] [address] June, Type 2 diabetes mellitus with hyperglyce fareed E11.65 ; End stage kidney disease N18.6 and Callus L84 [place] [address] [address] May, [place] [address] [address] May, Essential hypertension I10 [place] [address] [address] Apr, [place] [address] [address] Apr, Type 2 diabetes mellitus with hyperglyce fareed E11.65 and Essential hypertension I10 [place] [address] [address] Apr, [place] [address] [address] Apr, Type 2 diabetes mellitus with hyperglyce fareed E11.65 [place] [address] [address] Apr, [place] [address] [address] Mar, Type 2 diabetes mellitus with hyperglyce fareed E11.65 [place] [address] [address] Mar, Type 2 diabetes mellitus with diabetic n ephropathy E11.21 ; End stage kidney disease N18.6 ; Callus L84 and Onychomycosis B35.1 [place] [address] [address] Feb, [facility] [address] [facility] [id number] [address] [place] [address] Feb, Sinusitis J32.9 ; Nausea R11 .0 and Otalgia H92.[address] [address] Jan, [place] [address] [address] Jan, [place] [address] [address] Jan, Essential hypertension I10 ; Gout, unspe cified M10.9 ; Coronary atherosclerosis of unspecified type of vessel, [place] or graft I25.10 ; Mixed hyperlipidemia E78.2 and Type 2 diabetes mellitus with hyperglycemia E11.65 [place] [address] [address] Dec, Chronic kidney disease, stage 3 N18.3 ; Proteinuria R80.9 ; Diabetes mellitus E11.9 ; Acute kidney failure, unspecified N17.9 and Mixed hyperlipidemia E78.2 [place] [address] [address] Dec, Chronic kidney disease, stage 3 N18.3 ; Essential hypertension I10 ; Proteinuria R80.9 ; Diabetes mellitus E11.9 ; Kidney stone N20.0 ; Acute kidney failure, unspecified N17.9 ; Edema R60.9 and Mixed hyperlipidemia E78.2 [place] [address] [address] Dec, Type 2 diabetes mellitus with hyperglyce fareed E11.65 [place] [address] [address] Dec, Chronic kidney disease, stage 3 N18.3 [place] [address] [address] Dec, Type 2 diabetes mellitus with hyperglyce fareed E11.65 [place] [address] [address] Dec, [place] [address] [address] Nov, Type 2 diabetes mellitus with hyperglyce fareed E11.65 [place] [address] [address] Nov, [place] [address] [address] Nov, Chronic kidney disease, stage V (very se zahra) N18.5 ; Type 2 diabetes mellitus with hyperglycemia E11.65 ; Encounter for immunization Z23 and Delayed gastric emptying K30 [place] [address] [address] Nov, [place] [address] [address] Oct, Essential hypertension I10 ; Coronary at herosclerosis of unspecified type of vessel, [place] or graft I25.10 ; Type 2 diabetes mellitus with hyperglycemia E11.65 and Gout, unspecified M10.9 [place] [address] [address] Oct, Chronic kidney disease, stage V (very se zahra) N18.5 [place] [address] [address] Oct, Mixed hyperlipidemia E78.2 [place] [address] [address] Sep, Type 2 diabetes mellitus with hyperglyce fareed E11.65 [place] [address] [address] Sep, Mixed hyperlipidemia E78.2 [place] [address] [address] Sep, Chronic kidney disease, stage V (very se zahra) N18.5 [place] [address] [address] Sep, Type 2 diabetes mellitus with hyperglyce fareed E11.65 and Essential hypertension I10 [place] [address] [address] Sep, Type 2 diabetes mellitus with hyperglyce fareed E11.65 [place] [address] [address] Aug, Gout, unspecified M10.9 ; Gastroesophage al reflux disease, esophagitis presence not specified K21.9 ; Mood disorder F39 and Coronary atherosclerosis of unspecified type of vessel, [place] or graft I25.10 [place] [address] [address] Aug, [place] [address] [address] June, Type 2 diabetes mellitus with hyperglyce fareed E11.65 [place] [address] [address] May, Mood disorder F39 ; Gastroesophageal ref lux disease, esophagitis presence not specified K21.9 ; Gout, unspecified M10.9 ; Coronary atherosclerosis of unspecified type of vessel, [place] or graft I25.10 and Type 2 diabetes mellitus with hyperglycemia E11.65 [place] [address] [address] May, Type 2 diabetes mellitus with hyperglyce fareed E11.65 [place] [address] [address] Apr, Diabetes E11.9 and Mood disorder F39 [place] [address] [address] 15 Mar, 2017 Primary osteoarthritis of left knee M17. 12 and Tear of lateral meniscus of left knee, unspecified tear type, unspecified whether old or current tear, initial encounter S83.282A [place] [address] [address] Feb, Mood disorder F39 [place] [address] [address] 09 Feb, 2017 Pseudogout M11.20 [place] [address] [address] Jan, Other manager terminal (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 therapy Z 79.899 [facility] [address] [facility] [id number] [address] [place] [address] Jan, [place] [address] [address] Jan, Pseudogout M11.20 ; Type 2 diabetes familia itus with hyperglycemia E11.65 and Other manager terminal (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 [place] [address] [address] Jan, Gout of left knee due to renal impairmen t, unspecified chronicity M10.362 ; Type 2 diabetes mellitus with diabetic nephropathy E11.21 ; Synovial cyst of popliteal space [Mejia], left knee M71.22 and Low back pain M54.5 [place] [address] [address] 21 Dec, 2016 Pseudogout M11.20 [place] [address] [address] 14 Dec, 2016 [place] [address] [address] 13 Dec, 2016 Type 2 diabetes mellitus with diabetic n ephropathy E11.21 and Right anterior knee pain M25.561 [place] [address] [address] Nov, Pseudogout M11.20 [place] [address] [address] Nov, Pseudogout M11.20 ; Chronic kidney disea se, stage 3 N18.3 ; Mixed hyperlipidemia E78.2 ; Gout, unspecified M10.9 ; Coronary atherosclerosis of unspecified type of vessel, [place] or graft I25.10 ; Mood disorder F39 and Gastroesophageal reflux disease, esophagitis presence not specified K21.9 [place] [address] [address] Nov, [place] [address] [address] Oct, Pseudogout M11.20 [place] [address] [address] Sep, Pseudogout M11.20 [place] [address] [address] Sep, Pseudogout M11.20 [place] [address] [address] Sep, [place] [address] [id number] [id number] Aug, [place] [address] [address] Aug, Diabetes E11.9 ; Chronic kidney disease, stage 3 N18.3 ; Hyperuricemia E79.0 ; Mixed hyperlipidemia E78.2 ; Gastroesophageal reflux disease, esophagitis presence not specified K21.9 ; Gout, unspecified M10.9 ; Coronary atherosclerosis of unspecified type of vessel, [place] or graft I25.10 and Mood disorder F39 [place] [address] [address] June, [place] [address] [address] June, [place] [address] [address] June, [facility] [address] [address] May, Chronic renal failure, stage 3 (moderate ) N18.3 [facility] [address] [address] May, Diabetes E11.9 [facility] [address] [address] May, [facility] [address] [address] Apr, [place] [address] [address] Apr, [place] [address] [address] Apr, Cellulitis of right lower extremity L03. 115 and Diabetes E11.9 [place] [address] [address] Apr, Type 2 diabetes mellitus with hyperglyce fareed E11.65 [place] [address] [address] Mar, Cellulitis of right lower extremity L03. 115 and Low back pain M54.5 [place] [address] [address] Mar, [place] [address] [address] Mar, Cellulitis of right lower extremity L03. 115 [place] [address] [address] Mar, Cellulitis of right lower extremity L03. 115 [place] [address] [address] Feb, Cellulitis of right lower extremity L03. 115 [place] [address] [address] Feb, Cellulitis of right lower extremity L03. 115 [place] [address] [address] Feb, [place] [address] [address] Feb, Leukocytosis, unspecified type D72.829 ; Chronic renal failure, stage 3 (moderate) N18.3 and Type 2 diabetes mellitus with hyperglycemia E11.65 [place] [address] [address] Feb, Leukocytosis, unspecified type D72.829 [place] [address] [address] Feb, [place] [address] [address] Feb, Cellulitis of right lower extremity L03. 115 ; Thrush B37.0 ; Gout of left knee due to renal impairment, unspecified chronicity M10.362 and Chronic renal failure, stage 3 (moderate) N18.3 [place] [address] [address] Feb, [place] [address] [address] Feb, Right foot infection L08.9 ; Type 2 diab etes mellitus with hyperglycemia E11.65 ; Arthralgia of left knee M25.562 ; Chronic kidney disease, stage 3 N18.3 and Diabetes E11.9 [place] [address] [place] [id number] [place] [address] Feb, [place] [address] [address] Feb, Diabetes E11.9 ; Arthralgia of left knee M25.562 and Thrush B37.0 [place] [address] [address] Jan, [place] [address] [address] Jan, Type 2 diabetes mellitus with hyperglyce fareed E11.65 ; Chronic renal failure, stage 3 (moderate) N18.3 and Leukocytosis, unspecified type D72.[address] [address] Jan, Type 2 diabetes mellitus with hyperglyce fareed E11.[address] [address] Dec, Gout of left knee due to renal impairmen t, unspecified chronicity M10.[address] [address] Dec, Gout of left knee due to renal impairmen t, unspecified chronicity M10.362 and Diabetes E11.[address] [address] Dec, [address] [address] Dec, [facility] [place] [address] [address] Dec, [address] [address] Dec, Chronic kidney disease, stage 3 N18.3 ; Type 2 diabetes mellitus with diabetic nephropathy E11.21 ; Type 2 diabetes mellitus with hyperglycemia E11.65 and 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 [address] [address] June, [place] [address] [address] Jan, Viral illness B34.9 [place] [address] [address] Jan, Type 2 diabetes mellitus with hyperglyce fareed E11.65 ; Pain in right foot M79.671 and Localized edema R60.0 [place] [address] [address] Jan, [place] [address] [address] Dec, Right foot pain M79.671 ; Insomnia, unsp ecified type G47.00 and Diabetes E11.9 [place] [address] [address] Dec, Pain in right foot M79.671 [place] [address] [address] Nov, [place] [address] [address] Sep, [place] [address] [address] Sep, Diabetes mellitus, type II 250.00 [place] [address] [address] May, [place] [address] [address] May, [place] [address] [address] Apr, [place] [address] [id number] [place] [address] 19 Apr, 2014 [facility] [place] [facility] [address] [id number] [place] [address] 16 Apr, 2014 [facility] [place] [facility] [address] [id number] [place] [address] 16 Apr, 2014 [facility] [place] [facility] [address] [id number] [place] [address] 12 Apr, 2014 [facility] [place] [facility] [address] [id number] [place] [address] 12 Apr, 2014 [facility] [place] [facility] [address] [id number] [place] [address] 05 Apr, 2014 [facility] [place] [facility] [address] [id number] [place] [address] 05 Apr, 2014 [facility] [place] [facility] [address] [id number] [place] [address] 18 Jan, 2014 [facility] [place] [facility] [address] [id number] [place] [address] 18 Jan, 2014 [facility] [place] [facility] [address] [id number] [place] [address] 15 Jan, 2014 [facility] [place] [facility] [address] [id number] [place] [address] 15 Jan, 2014 [facility] [place] [facility] [address] [id number] [place] [address] 10 Dec, 2013 [facility] [place] [facility] [address] [id number] [place] [address] 10 Dec, 2013 [facility] [place] [facility] [address] [id number] [place] [address] 13 Nov, 2013 [facility] [place] [facility] [address] [id number] [place] [address] 13 Nov, 2013 [facility] [place] [facility] [address] [id number] [place] [address] 26 Oct, 2013 [facility] [place] [facility] [address] [id number] [place] [address] 26 Oct, 2013 [facility] [place] [facility] [address] [facility] [id number] [place] [address] Oct, 2013 [facility] [place] [facility] [address] [facility] [id number] [place] [address] Oct, [facility] [place] [facility] [address] [id number] [place] [address] Sep, [facility] [place] [facility] [address] [id number] [place] [address] Sep, [facility] [place] [facility] [address] [facility] [id number] [place] [address] Sep, [facility] [place] [facility] [address] [id number] [place] [address] Sep, [facility] [place] [facility] [address] [id number] [place] [address] Sep, [facility] [place] [facility] [address] [id number] [place] [address] Sep, [facility] [place] [facility] [address] [id number] [place] [address] Sep, [facility] [place] [facility] [address] [id number] [place] [address] Sep, [facility] [place] [facility] [address] [id number] [place] [address] Sep, [facility] [place] [facility] [address] [id number] [place] [address] Sep, [facility] [place] [facility] [address] [id number] [place] [address] Sep, [facility] [place] [facility] [address] [id number] [place] [address] Sep, [facility] [place] [facility] [address] [id number] [place] [address] Aug, [facility] [place] [facility] [address] [id number] [place] [address] Aug, [facility] [place] [facility] [address] [id number] [place] [address] 14 Aug, 2013 [facility] [place] [facility] [address] [facility] [id number] [facility] [address] 14 Aug, 2013 [facility] [place] [facility] [address] [facility] [id number] [place] [address] June, [facility] [place] [facility] [address] [facility] [id number] [place] [address] 24 May, 2013 [facility] [place] [facility] [address] [facility] [id number] [place] [address] 24 May, 2013 [facility] [place] [facility] [address] [facility] [id number] [place] [address] May, [facility] [place] [facility] [address] [facility] [id number] [place] [address] 18 May, 2013 [facility] [place] [facility] [address] [id number] [facility] [place] [address] 17 May, 2013 [facility] [place] [facility] [address] [id number] [place] [address] 17 May, 2013 [facility] [place] [facility] [address] [facility] [id number] [facility] [place] [address] 16 May, 2013 [facility] [place] [facility] [address] [facility] [id number] [facility] [place] [address] 16 May, 2013 [facility] [place] [facility] [address] [facility] [id number] [facility] [place] [address] 14 May, 2013 [facility] [place] [facility] [address] [id number] [facility] [place] [address] 14 May, 2013 [facility] [place] [facility] [address] [facility] [id number] [place] [address] 14 May, 2013 [facility] [place] [facility] [address] [facility] [id number] [place] [address] 14 May, 2013 [facility] [place] [facility] [address] [facility] [id number] [facility] [place] [address] 11 Apr, 2013 [facility] [place] [facility] [address] [id number] [facility] [place] [address] Apr, [facility] [place] [facility] [address] [id number] [place] [address] Mar, [facility] [address] [id number] [place] [address] Mar, [facility] [place] [facility] [address] [id number] [place] [address] Dec, [facility] [place] [facility] [address] [id number] [place] [address] Dec, [facility] [place] [facility] [address] [id number] [place] [address] Dec, [facility] [place] [facility] [address] [id number] [place] [address] Dec, [facility] [place] [facility] [address] [id number] [place] [address] Nov, [facility] [place] [facility] [address] [id number] [place] [address] Nov, [facility] [place] [facility] [address] [id number] [place] [address] Oct, [facility] [place] [facility] [address] [id number] [place] [address] Oct, [facility] [place] [facility] [address] [id number] [place] [address] Aug, [facility] [place] [facility] [address] [id number] [place] [address] Aug, [facility] [place] [facility] [address] [id number] [place] [address] Aug, [facility] [place] [facility] [address] [id number] [place] [address] Jul, [facility] [place] [facility] [address] [place] [id number] [place] [address] June, [facility] [place] [facility] [address] [id number] [place] [address] June, [facility] [place] [facility] [address] [id number] [place] [address] Apr, [facility] [address] [id number] [place] [address] Mar, [facility] [place] [facility] [address] [id number] [place] [address] Mar, [facility] [place] [facility] [address] [id number] [place] [address] Mar, [facility] [place] [facility] [address] [id number] [place] [address] Mar, [facility] [place] [facility] [address] [id number] [place] [address] Mar, [facility] [place] [facility] [address] [id number] [place] [address] Feb, [facility] [place] [facility] [address] [id number] [place] [address] Feb, [facility] [place] [facility] [address] [id number] [place] [address] Feb, [facility] [place] [facility] [address] [id number] [place] [address] Feb, [facility] [place] [facility] [address] [id number] [place] [address] Jan, [facility] [address] [id number] [place] [address] Jan, [facility] [address] [id number] [place] [address] Dec, [facility] [address] [id number] [place] [address] Dec, [facility] [address] [id number] [place] [address] Dec, [facility] [address] [id number] [place] [address] Dec, [facility] [address] [id number] [place] [address] Oct, [facility] [address] [id number] [place] [address] Aug, [facility] [address] [id number] [place] [address] Jul, [facility] [address] [id number] [place] [address] June, [facility] [address] [id number] [place] [address] June, [facility] [address] [id number] [place] [address] June, [facility] [address] [id number] [place] [address] June, [facility] [address] [id number] [place] [address] June, [facility] [address] [id number] [place] [address] May, [facility] [address] [id number] [place] [address] May, [facility] [address] [id number] [place] [address] Apr, [facility] [address] [id number] [place] [address] Apr, [facility] [address] [id number] [place] [address] Mar, [facility] [address] [id number] [place] [address] Feb, [facility] [address] [id number] [place] [address] Nov, [facility] [address] [id number] [place] [address] Nov, [facility] [address] [id number] [place] [address] Nov, [facility] [id number] [place] [address] Apr, [facility] [address] [id number] [place] [address] 07 Jan, 2010 [facility] [address] [id number] [place] [address] 24 Dec, 2009 [facility] [address] [id number] [place] [address] Dec, [facility] [address] [id number] [place] [address] 29 Nov, 2009 [facility] [address] [id number] [place] [address] June, [facility] [address] [id number] [place] [address] 29 Jan, 2009 [facility] [address] [id number] [place] [address] 28 Jan, 2009 [facility] [address] [id number] [place] [address] 23 Jan, 2009 [facility] [address] [id number] [place] [address] 22 Jan, 2009 [facility] [address] [id number] [place] [address] 16 Jan, 2009 [facility] [address] [id number] [place] [address] 15 Jan, 2009 [facility] [address] [id number] [place] [address] 15 Jan, 2009 [facility] [address] [id number] [place] [address] 11 Jan, 2009 [facility] [address] [id number] [place] [address] 11 Jan, 2009 [facility] [address] [id number] [place] [address] 10 Jan, 2009 [facility] [address] [id number] [place] [address] 04 Jan, 2009 [facility] [address] [id number] [place] [address] Jan, [facility] [address] [id number] [place] [address] Dec, [facility] [address] [id number] [place] [address] Dec, [facility] [address] [id number] [place] [address] Dec, [facility] [address] [id number] [place] [address] Dec, [facility] [address] [id number] [place] [address] Nov, [facility] [address] [id number] [place] [address] Oct, IMMUNIZATIONS No Known Immunizations SOCIAL HISTORY [...] knee pseudogout s tatus post joint fluid analysis-[facility] 09/20/16 Hospitalization History kidneys--[facility] 11[facility]2017 Hospitalization History Diverticulitis--[facility] 06/2018
--- OUTSIDE RECORDS SUMMARY | 2019-07-04 10:14 | XMS REPORT ---
Author Author Charles MUJICA [facility] Address [address] [place] [address] Care Team Providers Care Tag Machine Operator Name Role Phone CHAPARRO MUJICA Unavailable PROBLEMS Type Condition ICD9-CM Code ADA32-GJ Code Onset Dates Condition S tatus SNOMED Code Problem FDC 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 Active 680891907 Problem Insomnia, unspecified G47.00 Active 944705392 Problem Chronic kidney disease, stage 3 N18.3 Active 684764273 Problem 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 136579361 Problem Gout of left knee due to renal impairment, unspe cified chronicity M10.362 Active 607634475 Problem Mood disorder F39 Active 890123 05 Problem Essential hypertension I10 Active 17557497 Problem Primary osteoarthritis of left knee M17.12 Active [id number] Problem Kidney stone N20.0 Active 0974948 7 Problem Proteinuria R80.9 Active 79506192 Problem Sinusitis J32.9 Active 99005918 Problem Dependence on renal dialysis Z99.2 A ctive 559437052 Problem Delayed gastric emptying K30 Activ e 306809263 Problem Gastroesophageal reflux disease, esophagitis pre sence not specified K21.9 Active 064491326 Problem End stage renal disease N18.6 Active 09282703 Problem Chronic kidney disease, stage V (very severe) N18. 5 Active 261121109 Problem Hypertriglyceridemia E78.1 Active 929560810 Problem Coronary atherosclerosis of unspecified type of vessel, upper sk[place] or graft I25.10 Active 457080020 Problem End stage kidney disease N18.6 Activ e 02187880 Problem Type 2 diabetes mellitus with hyperglycemia E11.65 Active 450186304153447 Problem Hypoglycemia E16.2 Active 9683831 03 Problem Diabetes E11.9 Active 225264186 ALLERGIES Substance Reaction Event Type Date Status Acetaminophen-Codeine #3 Failed Ameritox UDS- [facility] Drug Allergy 27 M ar, 2018 Active ENCOUNTERS Encounter Location Date Diagnosis [place] [address] [address] Apr, [place] [address] [address] Jan, Other viral warts B07.8 ; Diabetes E11.9 ; Dependence on renal dialysis Z99.2 and End stage renal disease N18.6 [place] [address] [address] Oct, Type 2 diabetes mellitus with diabetic n ephropathy E11.21 ; Hypoglycemia E16.2 and Dermatofibroma D23.9 [place] [address] [address] Oct, [place] [address] [address] Jul, Type 2 diabetes mellitus with hyperglyce fareed E11.65 [place] [address] [address] Jul, Type 2 diabetes mellitus with hyperglyce fareed E11.65 [place] [address] [address] Jul, Type 2 diabetes mellitus with hyperglyce fareed E11.65 [place] [address] [address] June, Type 2 diabetes mellitus with hyperglyce fareed E11.65 ; End stage kidney disease N18.6 and Callus L84 [place] [address] [address] May, [place] [address] [address] May, Essential hypertension I10 [place] [address] [address] Apr, [place] [address] [address] Apr, Type 2 diabetes mellitus with hyperglyce fareed E11.65 and Essential hypertension I10 [place] [address] [address] Apr, [facility] [address] [address] Apr, Type 2 diabetes mellitus with hyperglyce fareed E11.65 [place] [address] [address] Apr, [place] [address] [address] Mar, Type 2 diabetes mellitus with hyperglyce fareed E11.65 [place] [address] [address] Mar, Type 2 diabetes mellitus with diabetic n ephropathy E11.21 ; End stage kidney disease N18.6 ; Callus L84 and Onychomycosis B35.[address] [address] Feb, [facility] [address] [facility] [id number] [place] [address] Feb, Sinusitis J32.9 ; Nausea R11 .0 and Otalgia H92.09 [place] [address] [address] Jan, [place] [address] [address] Jan, [place] [address] [address] Jan, Essential hypertension I10 ; Gout, unspe cified M10.9 ; Coronary atherosclerosis of unspecified type of vessel, upper [place] or graft I25.10 ; Mixed hyperlipidemia E78.2 and Type 2 diabetes mellitus with hyperglycemia E11.65 [place] [address] [address] Dec, Chronic kidney disease, stage 3 N18.3 ; Proteinuria R80.9 ; Diabetes mellitus E11.9 ; Acute kidney failure, unspecified N17.9 and Mixed hyperlipidemia E78.2 [place] [address] [address] 16 Dec, 2017 Chronic kidney disease, stage 3 N18.3 ; Essential hypertension I10 ; Proteinuria R80.9 ; Diabetes mellitus E11.9 ; Kidney stone N20.0 ; Acute kidney failure, unspecified N17.9 ; Edema R60.9 and Mixed hyperlipidemia E78.2 [place] [address] [address] 14 Dec, 2017 Type 2 diabetes mellitus with hyperglyce fareed E11.65 [place] [address] [address] Dec, Chronic kidney disease, stage 3 N18.3 [place] [address] [address] Dec, Type 2 diabetes mellitus with hyperglyce fareed E11.65 [place] [address] [address] Dec, [place] [address] [address] Nov, Type 2 diabetes mellitus with hyperglyce fareed E11.[address] [address] Nov, [address] [address] Nov, Chronic kidney disease, stage V (very se zahra) N18.5 ; Type 2 diabetes mellitus with hyperglycemia E11.65 ; Encounter for immunization Z23 and Delayed gastric emptying K30 [place] [address] [address] Nov, [address] [address] Oct, Essential hypertension I10 ; Coronary at herosclerosis of unspecified type of vessel, upper sk[place] or graft I25.10 ; Type 2 diabetes mellitus with hyperglycemia E11.65 and Gout, unspecified M10.[address] [address] Oct, Chronic kidney disease, stage V (very se zahra) N18.5 [place] [address] [address] Oct, Mixed hyperlipidemia E78.2 [place] [address] [address] Sep, Type 2 diabetes mellitus with hyperglyce fareed E11.65 [place] [address] [address] Sep, Mixed hyperlipidemia E78.2 [place] [address] [address] Sep, Chronic kidney disease, stage V (very se zahra) N18.5 [place] [address] [address] Sep, Type 2 diabetes mellitus with hyperglyce fareed E11.65 and Essential hypertension I10 [place] [address] [address] Sep, Type 2 diabetes mellitus with hyperglyce fareed E11.65 [place] [address] [address] Aug, Gout, unspecified M10.9 ; Gastroesophage al reflux disease, esophagitis presence not specified K21.9 ; Mood disorder F39 and Coronary atherosclerosis of unspecified type of vessel, upper sk[place] or graft I25.10 [place] [address] [address] Aug, [place] [address] [address] June, Type 2 diabetes mellitus with hyperglyce fareed E11.65 [place] [address] [address] May, Mood disorder F39 ; Gastroesophageal ref lux disease, esophagitis presence not specified K21.9 ; Gout, unspecified M10.9 ; Coronary atherosclerosis of unspecified type of vessel, upper sk[place] or graft I25.10 and Type 2 diabetes mellitus with hyperglycemia E11.65 [facility] [address] [address] May, Type 2 diabetes mellitus with hyperglyce fareed E11.65 [facility] [address] [address] Apr, Diabetes E11.9 and Mood disorder F39 [place] [address] [address] 15 Mar, 2017 Primary osteoarthritis of left knee M17. 12 and Tear of lateral meniscus of left knee, unspecified tear type, unspecified whether old or current tear, initial encounter S83.282A [place] [address] [address] Feb, Mood disorder F39 [place] [address] [address] Feb, Pseudogout M11.20 [place] [address] [address] Jan, Other care home (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 therapy Z 79.899 [facility] [address] [facility] [id number] [address] [address] Jan, [place] [address] [address] Jan, Pseudogout M11.20 ; Type 2 diabetes familia itus with hyperglycemia E11.65 and 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 [place] [address] [address] Jan, Gout of left knee due to renal impairmen t, unspecified chronicity M10.362 ; Type 2 diabetes mellitus with diabetic nephropathy E11.21 ; Synovial cyst of popliteal space [Mejia], left knee M71.22 and Low back pain M54.5 [place] [address] [address] Dec, Pseudogout M11.20 [place] [address] [address] 14 Dec, 2016 [place] [address] [place] [address] Dec, Type 2 diabetes mellitus with diabetic n ephropathy E11.21 and Right anterior knee pain M25.561 [place] [address] [address] Nov, Pseudogout M11.20 [place] [address] [address] Nov, Pseudogout M11.20 ; Chronic kidney disea se, stage 3 N18.3 ; Mixed hyperlipidemia E78.2 ; Gout, unspecified M10.9 ; Coronary atherosclerosis of unspecified type of vessel, upper sk[place]it or graft I25.10 ; Mood disorder F39 and Gastroesophageal reflux disease, esophagitis presence not specified K21.9 [place] [address] [address] Nov, [place] [address] [address] Oct, Pseudogout M11.20 [place] [address] [address] Sep, Pseudogout M11.20 [place] [address] [address] Sep, Pseudogout M11.20 [place] [address] [address] Sep, [place] [address] [place] [id number] [id number] Aug, [place] [address] [address] Aug, Diabetes E11.9 ; Chronic kidney disease, stage 3 N18.3 ; Hyperuricemia E79.0 ; Mixed hyperlipidemia E78.2 ; Gastroesophageal reflux disease, esophagitis presence not specified K21.9 ; Gout, unspecified M10.9 ; Coronary atherosclerosis of unspecified type of vessel, upper skagit or graft I25.10 and Mood disorder F39 [facility] [address] [address] June, [facility] [address] [address] June, [facility] [address] [address] June, [facility] [address] [address] May, Chronic renal failure, stage 3 (moderate ) N18.3 [place] [address] [address] May, Diabetes E11.9 [place] [address] [address] May, [place] [address] [address] Apr, [place] [address] [address] Apr, [place] [address] [address] Apr, Cellulitis of right lower extremity L03. 115 and Diabetes E11.9 [place] [address] [address] Apr, Type 2 diabetes mellitus with hyperglyce fareed E11.65 [place] [address] [address] Mar, Cellulitis of right lower extremity L03. 115 and Low back pain M54.5 [place] [address] [address] Mar, [place] [address] [address] Mar, Cellulitis of right lower extremity L03. 115 [place] [address] [address] Mar, Cellulitis of right lower extremity L03. 115 [place] [address] [address] Feb, Cellulitis of right lower extremity L03. 115 [place] [address] [address] Feb, Cellulitis of right lower extremity L03. 115 [place] [address] [address] Feb, [place] [address] [address] Feb, Leukocytosis, unspecified type D72.829 ; Chronic renal failure, stage 3 (moderate) N18.3 and Type 2 diabetes mellitus with hyperglycemia E11.65 [place] [address] [address] Feb, Leukocytosis, unspecified type D72.829 [place] [address] [address] Feb, [place] [address] [address] Feb, Cellulitis of right lower extremity L03. 115 ; Thrush B37.0 ; Gout of left knee due to renal impairment, unspecified chronicity M10.362 and Chronic renal failure, stage 3 (moderate) N18.3 [place] [address] [address] Feb, [address] [address] Feb, Right foot infection L08.9 ; Type 2 diab etes mellitus with hyperglycemia E11.65 ; Arthralgia of left knee M25.562 ; Chronic kidney disease, stage 3 N18.3 and Diabetes E11.9 [place] [address] [address] Feb, [place] [address] [address] Feb, Diabetes E11.9 ; Arthralgia of left knee M25.562 and Thrush B37.0 [place] [address] [address] Jan, [address] [address] Jan, Type 2 diabetes mellitus with hyperglyce fareed E11.65 ; Chronic renal failure, stage 3 (moderate) N18.3 and Leukocytosis, unspecified type D72.829 [place] [address] [address] Jan, Type 2 diabetes mellitus with hyperglyce fareed E11.65 [place] [address] [address] Dec, Gout of left knee due to renal impairmen t, unspecified chronicity M10.[address] [address] Dec, Gout of left knee due to renal impairmen t, unspecified chronicity M10.362 and Diabetes E11.[address] [address] Dec, [address] [address] Dec, [facility] [address] [place] [address] Dec, [address] [address] Dec, Chronic kidney disease, stage 3 N18.3 ; Type 2 diabetes mellitus with diabetic nephropathy E11.21 ; Type 2 diabetes mellitus with hyperglycemia E11.65 and FDC 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 [facility] [address] [place] [id number] [address] [place] [address] Dec, Leukocytosis, unspecified ty pe D72.829 ; Chronic renal failure, stage 3 (moderate) N18.3 and Nausea R11.0 [place] [address] [address] Nov, [place] [address] [address] Jul, [facility] [address] [address] Jul, Diabetes E11.9 ; Low back pain M54.5 and Other chronic pain G89.29 [place] [address] [address] June, [place] [address] [address] June, [place] [address] [address] Jan, Viral illness B34.9 [place] [address] [address] Jan, Type 2 diabetes mellitus with hyperglyce fareed E11.65 ; Pain in right foot M79.671 and Localized edema R60.0 [place] [address] [address] Jan, [place] [address] [address] Dec, Right foot pain M79.671 ; Insomnia, unsp ecified type G47.00 and Diabetes E11.9 [place] [address] [address] Dec, Pain in right foot M79.671 [place] [address] [address] Nov, [place] [address] [address] Sep, [place] [address] [address] Sep, Diabetes mellitus, type II 250.00 [place] [address] [place] [id number] [place] [address] 14 May, 2014 [facility] [address] [id number] [place] [address] 13 May, 2014 [facility] [address] [id number] [place] [address] 19 Apr, 2014 [facility] [address] [id number] [place] [address] 19 Apr, 2014 [facility] [address] [id number] [place] [address] 16 Apr, 2014 [facility] [address] [id number] [place] [address] 16 Apr, 2014 [facility] [address] [id number] [place] [address] 12 Apr, 2014 [facility] [address] [id number] [place] [address] 12 Apr, 2014 [facility] [address] [id number] [place] [address] 05 Apr, 2014 [facility] [address] [id number] [place] [address] 05 Apr, 2014 [facility] [address] [id number] [place] [address] 18 Jan, 2014 [facility] [address] [id number] [place] [address] 18 Jan, 2014 [facility] [address] [id number] [place] [address] 15 Jan, 2014 [facility] [address] [id number] [place] [address] 15 Jan, 2014 [facility] [address] [place] [id number] [place] [address] 10 Dec, 2013 [facility] [address] [id number] [place] [address] 10 Dec, 2013 [facility] [address] [id number] [place] [address] Nov, [facility] [address] [facility] [id number] [place] [address] Nov, [facility] [address] [facility] [id number] [place] [address] Oct, [facility] [address] [facility] [id number] [place] [address] Oct, 2013 [facility] [address] [id number] [place] [address] Oct, [facility] [address] [facility] [id number] [place] [address] Oct, [facility] [address] [id number] [place] [address] Sep, [facility] [address] [id number] [place] [address] Sep, [facility] [address] [id number] [place] [address] Sep, [facility] [address] [id number] [place] [address] Sep, [facility] [address] [id number] [place] [address] Sep, [facility] [address] [id number] [place] [address] Sep, [facility] [address] [id number] [place] [address] Sep, [facility] [address] [id number] [place] [address] Sep, [facility] [address] [facility] [id number] [place] [address] Sep, [facility] [address] [id number] [place] [address] Sep, [facility] [address] [id number] [place] [address] Sep, [facility] [address] [id number] [place] [address] Sep, [facility] [address] [id number] [facility] [address] Aug, [facility] [address] [facility] [id number] [facility] [address] Aug, [facility] [address] [id number] [facility] [address] Aug, [facility] [address] [id number] [facility] [address] Aug, [facility] [address] [id number] [facility] [address] June, [facility] [address] [place] [id number] [place] [address] 24 May, 2013 [facility] [address] [id number] [place] [address] 24 May, 2013 [facility] [address] [id number] [place] [address] May, [facility] [address] [facility] [id number] [place] [address] 18 May, 2013 [facility] [address] [id number] [place] [address] 17 May, 2013 [facility] [address] [id number] [place] [address] 17 May, 2013 [facility] [address] [id number] [place] [address] 16 May, 2013 [facility] [address] [facility] [id number] [place] [address] 16 May, 2013 [facility] [address] [id number] [place] [address] 14 May, 2013 [facility] [address] [id number] [place] [address] 14 May, 2013 [facility] [address] [id number] [place] [address] 14 May, 2013 [facility] [address] [id number] [place] [address] May, [facility] [address] [id number] [place] [address] Apr, [facility] [address] [id number] [place] [address] Apr, [facility] [address] [id number] [place] [address] Mar, [facility] [address] [id number] [place] [address] Mar, [facility] [address] [id number] [place] [address] Dec, [facility] [address] [id number] [place] [address] Dec, [facility] [address] [id number] [place] [address] Dec, [facility] [address] [id number] [place] [address] Dec, [facility] [address] [id number] [place] [address] Nov, [facility] [address] [id number] [place] [address] Nov, [facility] [address] [id number] [place] [address] Oct, [facility] [address] [id number] [place] [address] Oct, [facility] [address] [id number] [place] [address] Aug, [facility] [id number] [place] [address] Aug, [facility] [address] [id number] [place] [address] Aug, [facility] [id number] [place] [address] Jul, [facility] [address] [id number] [place] [address] June, [facility] [address] [id number] [place] [address] June, [facility] [address] [id number] [place] [address] Apr, [facility] [address] [id number] [place] [address] Mar, [facility] [address] [id number] [place] [address] Mar, [facility] [address] [id number] [place] [address] Mar, [facility] [address] [id number] [place] [address] Mar, [facility] [address] [id number] [place] [address] Mar, [facility] [address] [id number] [place] [address] Feb, [facility] [address] [id number] [place] [address] Feb, [facility] [address] [id number] [place] [address] Feb, [facility] [address] [id number] [place] [address] Feb, [facility] [address] [id number] [place] [address] Jan, [facility] [address] [id number] [place] [address] Jan, [facility] [address] [id number] [place] [address] Dec, [facility] [address] [facility] [id number] [place] [address] Dec, [facility] [address] [id number] [place] [address] 08 Dec, 2011 [facility] [address] [id number] [place] [address] Dec, [facility] [address] [id number] [place] [address] Oct, [facility] [address] [id number] [place] [address] Aug, [facility] [address] [id number] [place] [address] Jul, [facility] [address] [id number] [place] [address] June, [facility] [id number] [place] [address] June, [facility] [id number] [place] [address] June, [facility] [address] [id number] [place] [address] June, [facility] [address] [id number] [place] [address] June, [facility] [id number] [place] [address] May, [facility] [address] [id number] [place] [address] May, [facility] [id number] [place] [address] Apr, [facility] [address] [id number] [place] [address] Apr, [facility] [id number] [place] [address] Mar, [facility] [address] [id number] [place] [address] Feb, [facility] [address] [id number] [place] [address] Nov, [facility] [address] [id number] [place] [address] 13 Nov, 2010 [facility] [address] [id number] [place] [address] 13 Nov, 2010 [facility] [address] [id number] [place] [address] 17 Apr, 2010 [facility] [address] [id number] [place] [address] 07 Jan, 2010 [facility] [address] [id number] [place] [address] 24 Dec, 2009 [facility] [address] [id number] [place] [address] 11 Dec, 2009 [facility] [address] [id number] [place] [address] 29 Nov, 2009 [facility] [address] [id number] [place] [address] June, [facility] [address] [id number] [place] [address] 29 Jan, 2009 [facility] [address] [id number] [place] [address] 28 Jan, 2009 [facility] [address] [id number] [place] [address] 23 Jan, 2009 [facility] [address] [id number] [place] [address] 22 Jan, 2009 [facility] [address] [id number] [place] [address] 16 Jan, 2009 [facility] [address] [id number] [place] [address] 15 Jan, 2009 [facility] [address] [id number] [place] [address] 15 Jan, 2009 [facility] [address] [id number] [place] [address] 11 Jan, 2009 [facility] [address] [id number] [place] [address] Jan, [facility] [address] [id number] [place] [address] Jan, [facility] [address] [id number] [place] [address] Jan, [facility] [address] [id number] [place] [address] Jan, [facility] [id number] [place] [address] Dec, [facility] [id number] [place] [address] Dec, [facility] [id number] [place] [address] Dec, [facility] [address] [id number] [place] [address] Dec, [facility] [id number] [place] [address] Nov, [facility] [address] [id number] [place] [address] Oct, IMMUNIZATIONS No Known Immunizations SOCIAL HISTORY Never Assessed REASON FOR VISIT Diabetes follow up ANDREY Traore PLAN OF CARE Activity Details Follow Up 3 Months Reason:DM VITAL SIGNS Height 73 in 2018-05-24 Weight 289.9 lbs 2018-05-24 Temperature 98.2 degrees Fahrenheit 2018-05-24 Heart Rate 96 bpm 2018-05-24 Respiratory Rate 20 2018-05-24 BMI 38.24 kg/m2 2018-05-24 Blood pressure systolic 168 mmHg 2018-05-24 Blood pressure diastolic 86 mmHg 2018-05-24 MEDICATIONS Medication Instructions Dosage Frequency Start Date End Date Duration S tatus Insulin Syringe 31G X 5/16 as directed Jan, Active BD Insulin Syringe Ultrafine 31G X 5/16 as directed A 2017 Active Uloric 80 MG Orally Once a day 1 tablet 24h Aug, 90 days Active Seroquel 50 mg Orally Once a day 3 Tablets 24h 30 da ys Active Omeprazole 40 MG Orally Once a day 1 capsule 24h 30 Active Terbinafine HCl 250 MG Orally Once a day 1 tablet 24h 20 Mar, 2018 90 days Active Januvia 25 MG Orally Once a day 1 tablet 24h 20 Apr, 2018 30 days Active Atorvastatin Calcium 40 MG Orally Once a day 1 tablet 24h 90 days Active Aspir-81 81 MG Orally Once a day 1 tablet 24h 90 day s Active Lantus 100 UNIT/ML Subcutaneous 2 times a day Inject 35 units 12h 15 Sep, 2017 90 days Active Toprol XL 100 mg Orally twice a day 1 tablets 12h Active RESULTS No Results PROCEDURES No Known [...] pseudogout s tatus post joint fluid analysis-[facility] 09/20/16 Hospitalization History kidneys--[facility] 11/2017 Hospitalization History Diverticulitis--[facility] 06/2018
--- OUTSIDE RECORDS SUMMARY | 2019-07-04 10:14 | XMS REPORT ---
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 Active 013818747 Problem Insomnia, unspecified G47.00 Active 804644995 Problem Chronic kidney disease, stage 3 N18.3 Active 669588456 Problem 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 579437955 Problem Gout of left knee due to renal impairment, unspe cified chronicity M10.362 Active 383661107 Problem Mood disorder F39 Active 604907 05 Problem Essential hypertension I10 Active 53474269 Problem Primary osteoarthritis of left knee M17.12 Active 895931240678931 Problem Kidney stone N20.0 Active 3693184 7 Problem Proteinuria R80.9 Active 08708743 Problem Sinusitis J32.9 Active 93030549 Problem Dependence on renal dialysis Z99.2 A ctive 031215132 Problem Delayed gastric emptying K30 Activ e 429132190 Problem Gastroesophageal reflux disease, esophagitis pre sence not specified K21.9 Active 686356654 Problem End stage renal disease N18.6 Active 89765814 Problem Chronic kidney disease, stage V (very severe) N18. 5 Active 370894531 Problem Hypertriglyceridemia E78.1 Active 904992715 Problem Coronary atherosclerosis of unspecified type of vessel, big lagoon or graft I25.10 Active 676713269 Problem End stage kidney disease N18.6 Activ e 64069223 Problem Type 2 diabetes mellitus with hyperglycemia E11.65 Active [id number] Problem Hypoglycemia E16.2 Active 4010977 03 Problem Diabetes E11.9 Active 857985765 ALLERGIES No Information ENCOUNTERS Encounter Location Date Diagnosis [facility] [address] [id number] [place] [address] Jan, Other viral warts B07.8 ; Diabetes E11.9 ; Dependence on renal dialysis Z99.2 and End stage renal disease N18.6 [place] [address] [address] Oct, Type 2 diabetes mellitus with diabetic n ephropathy E11.21 ; Hypoglycemia E16.2 and Dermatofibroma D23.9 [place] [address] [address] Oct, [place] [address] [address] Jul, Type 2 diabetes mellitus with hyperglyce fareed E11.65 [place] [address] [address] Jul, Type 2 diabetes mellitus with hyperglyce fareed E11.65 [place] [address] [address] Jul, Type 2 diabetes mellitus with hyperglyce fareed E11.65 [place] [address] [address] June, Type 2 diabetes mellitus with hyperglyce fareed E11.65 ; End stage kidney disease N18.6 and Callus L84 [place] [address] [address] May, [place] [address] [address] May, Essential hypertension I10 [place] [address] [address] Apr, [place] [address] [address] Apr, Type 2 diabetes mellitus with hyperglyce fareed E11.65 and Essential hypertension I10 [place] [address] [address] Apr, [place] [address] [address] Apr, Type 2 diabetes mellitus with hyperglyce fareed E11.65 [place] [address] [address] Apr, [place] [address] [address] Mar, Type 2 diabetes mellitus with hyperglyce fareed E11.65 [place] [address] [address] Mar, Type 2 diabetes mellitus with diabetic n ephropathy E11.21 ; End stage kidney disease N18.6 ; Callus L84 and Onychomycosis B35.1 [place] [address] [address] Feb, [facility] [address] [facility] [id number] [address] [place] [address] Feb, Sinusitis J32.9 ; Nausea R11 .0 and Otalgia H92.[address] [address] Jan, [place] [address] [address] Jan, [place] [address] [address] Jan, Essential hypertension I10 ; Gout, unspe cified M10.9 ; Coronary atherosclerosis of unspecified type of vessel, big lagoon or graft I25.10 ; Mixed hyperlipidemia E78.2 and Type 2 diabetes mellitus with hyperglycemia E11.65 [place] [address] [address] Dec, Chronic kidney disease, stage 3 N18.3 ; Proteinuria R80.9 ; Diabetes mellitus E11.9 ; Acute kidney failure, unspecified N17.9 and Mixed hyperlipidemia E78.2 [place] [address] [address] Dec, Chronic kidney disease, stage 3 N18.3 ; Essential hypertension I10 ; Proteinuria R80.9 ; Diabetes mellitus E11.9 ; Kidney stone N20.0 ; Acute kidney failure, unspecified N17.9 ; Edema R60.9 and Mixed hyperlipidemia E78.2 [place] [address] [address] Dec, Type 2 diabetes mellitus with hyperglyce fareed E11.65 [place] [address] [address] Dec, Chronic kidney disease, stage 3 N18.3 [place] [address] [address] Dec, Type 2 diabetes mellitus with hyperglyce fareed E11.65 [place] [address] [address] Dec, [place] [address] [address] Nov, Type 2 diabetes mellitus with hyperglyce fareed E11.65 [place] [address] [address] Nov, [place] [address] [address] Nov, Chronic kidney disease, stage V (very se zahra) N18.5 ; Type 2 diabetes mellitus with hyperglycemia E11.65 ; Encounter for immunization Z23 and Delayed gastric emptying K30 [place] [address] [address] Nov, [place] [address] [address] Oct, Essential hypertension I10 ; Coronary at herosclerosis of unspecified type of vessel, big lagoon or graft I25.10 ; Type 2 diabetes mellitus with hyperglycemia E11.65 and Gout, unspecified M10.9 [place] [address] [address] Oct, Chronic kidney disease, stage V (very se zahra) N18.5 [place] [address] [address] Oct, Mixed hyperlipidemia E78.2 [place] [address] [address] Sep, Type 2 diabetes mellitus with hyperglyce fareed E11.65 [place] [address] [address] Sep, Mixed hyperlipidemia E78.2 [place] [address] [address] Sep, Chronic kidney disease, stage V (very se zahra) N18.5 [place] [address] [address] Sep, Type 2 diabetes mellitus with hyperglyce fareed E11.65 and Essential hypertension I10 [place] [address] [address] Sep, Type 2 diabetes mellitus with hyperglyce fareed E11.65 [place] [address] [address] Aug, Gout, unspecified M10.9 ; Gastroesophage al reflux disease, esophagitis presence not specified K21.9 ; Mood disorder F39 and Coronary atherosclerosis of unspecified type of vessel, big lagoon or graft I25.10 [place] [address] [address] Aug, [place] [address] [address] June, Type 2 diabetes mellitus with hyperglyce fareed E11.65 [place] [address] [address] May, Mood disorder F39 ; Gastroesophageal ref lux disease, esophagitis presence not specified K21.9 ; Gout, unspecified M10.9 ; Coronary atherosclerosis of unspecified type of vessel, big lagoon or graft I25.10 and Type 2 diabetes mellitus with hyperglycemia E11.65 [place] [address] [address] May, Type 2 diabetes mellitus with hyperglyce fareed E11.65 [place] [address] [address] Apr, Diabetes E11.9 and Mood disorder F39 [place] [address] [address] 15 Mar, 2017 Primary osteoarthritis of left knee M17. 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 Z 79.899 [facility] [address] [facility] [id number] [address] [place] [address] Jan, [place] [address] [address] Jan, Pseudogout M11.20 ; Type 2 diabetes familia itus with hyperglycemia E11.65 and Other terminal system operator (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 [place] [address] [address] Jan, Gout of left knee due to renal impairmen t, unspecified chronicity M10.362 ; Type 2 diabetes mellitus with diabetic nephropathy E11.21 ; Synovial cyst of popliteal space [Mejia], left knee M71.22 and Low back pain M54.5 [place] [address] [address] 21 Dec, 2016 Pseudogout M11.20 [place] [address] [address] 14 Dec, 2016 [place] [address] [address] 13 Dec, 2016 Type 2 diabetes mellitus with diabetic n ephropathy E11.21 and Right anterior knee pain M25.561 [place] [address] [address] Nov, Pseudogout M11.20 [place] [address] [address] Nov, Pseudogout M11.20 ; Chronic kidney disea se, stage 3 N18.3 ; Mixed hyperlipidemia E78.2 ; Gout, unspecified M10.9 ; Coronary atherosclerosis of unspecified type of vessel, big lagoon or graft I25.10 ; Mood disorder F39 and Gastroesophageal reflux disease, esophagitis presence not specified K21.9 [place] [address] [address] Nov, [place] [address] [address] Oct, Pseudogout M11.20 [place] [address] [address] Sep, Pseudogout M11.20 [place] [address] [address] Sep, Pseudogout M11.20 [place] [address] [address] Sep, [place] [address] [id number] [id number] Aug, [place] [address] [address] Aug, Diabetes E11.9 ; Chronic kidney disease, stage 3 N18.3 ; Hyperuricemia E79.0 ; Mixed hyperlipidemia E78.2 ; Gastroesophageal reflux disease, esophagitis presence not specified K21.9 ; Gout, unspecified M10.9 ; Coronary atherosclerosis of unspecified type of vessel, big lagoon or graft I25.10 and Mood disorder F39 [place] [address] [address] June, [place] [address] [address] June, [place] [address] [address] June, [facility] [address] [address] May, Chronic renal failure, stage 3 (moderate ) N18.3 [facility] [address] [address] May, Diabetes E11.9 [facility] [address] [address] May, [facility] [address] [address] Apr, [place] [address] [address] Apr, [place] [address] [address] Apr, Cellulitis of right lower extremity L03. 115 and Diabetes E11.9 [place] [address] [address] Apr, Type 2 diabetes mellitus with hyperglyce fareed E11.65 [place] [address] [address] Mar, Cellulitis of right lower extremity L03. 115 and Low back pain M54.5 [place] [address] [address] Mar, [place] [address] [address] Mar, Cellulitis of right lower extremity L03. 115 [place] [address] [address] Mar, Cellulitis of right lower extremity L03. 115 [place] [address] [address] Feb, Cellulitis of right lower extremity L03. 115 [place] [address] [address] Feb, Cellulitis of right lower extremity L03. 115 [place] [address] [address] Feb, [place] [address] [address] Feb, Leukocytosis, unspecified type D72.829 ; Chronic renal failure, stage 3 (moderate) N18.3 and Type 2 diabetes mellitus with hyperglycemia E11.65 [place] [address] [address] Feb, Leukocytosis, unspecified type D72.829 [place] [address] [address] Feb, [place] [address] [address] Feb, Cellulitis of right lower extremity L03. 115 ; Thrush B37.0 ; Gout of left knee due to renal impairment, unspecified chronicity M10.362 and Chronic renal failure, stage 3 (moderate) N18.3 [place] [address] [address] Feb, [place] [address] [address] Feb, Right foot infection L08.9 ; Type 2 diab etes mellitus with hyperglycemia E11.65 ; Arthralgia of left knee M25.562 ; Chronic kidney disease, stage 3 N18.3 and Diabetes E11.9 [place] [address] [place] [id number] [place] [address] Feb, [place] [address] [address] Feb, Diabetes E11.9 ; Arthralgia of left knee M25.562 and Thrush B37.0 [place] [address] [address] Jan, [place] [address] [address] Jan, Type 2 diabetes mellitus with hyperglyce fareed E11.65 ; Chronic renal failure, stage 3 (moderate) N18.3 and Leukocytosis, unspecified type D72.[address] [address] Jan, Type 2 diabetes mellitus with hyperglyce fareed E11.[address] [address] Dec, Gout of left knee due to renal impairmen t, unspecified chronicity M10.[address] [address] Dec, Gout of left knee due to renal impairmen t, unspecified chronicity M10.362 and Diabetes E11.[address] [address] Dec, [address] [address] Dec, [facility] [place] [address] [address] Dec, [address] [address] Dec, Chronic kidney disease, stage 3 N18.3 ; Type 2 diabetes mellitus with diabetic nephropathy E11.21 ; Type 2 diabetes mellitus with hyperglycemia E11.65 and 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 [facility] [address] [address] Dec, Leukocytosis, unspecified ty pe D72.829 ; Chronic renal failure, stage 3 (moderate) N18.3 and Nausea R11.[address] [address] Nov, [address] [address] Jul, [address] [address] Jul, Diabetes E11.9 ; Low back pain M54.5 and Other chronic pain G89.29 [place] [address] [address] June, [facility] [address] [address] June, [place] [address] [address] Jan, Viral illness B34.9 [place] [address] [address] Jan, Type 2 diabetes mellitus with hyperglyce fareed E11.65 ; Pain in right foot M79.671 and Localized edema R60.0 [place] [address] [address] Jan, [place] [address] [address] Dec, Right foot pain M79.671 ; Insomnia, unsp ecified type G47.00 and Diabetes E11.9 [place] [address] [address] Dec, Pain in right foot M79.671 [place] [address] [address] Nov, [place] [address] [address] Sep, [place] [address] [address] Sep, Diabetes mellitus, type II 250.00 [place] [address] [address] May, [place] [address] [address] May, [place] [address] [address] Apr, [place] [address] [id number] [place] [address] 19 Apr, 2014 [facility] [place] [facility] [address] [id number] [place] [address] 16 Apr, 2014 [facility] [place] [facility] [address] [id number] [place] [address] 16 Apr, 2014 [facility] [place] [facility] [address] [id number] [place] [address] 12 Apr, 2014 [facility] [place] [facility] [address] [id number] [place] [address] 12 Apr, 2014 [facility] [place] [facility] [address] [id number] [place] [address] 05 Apr, 2014 [facility] [place] [facility] [address] [id number] [place] [address] 05 Apr, 2014 [facility] [place] [facility] [address] [id number] [place] [address] 18 Jan, 2014 [facility] [place] [facility] [address] [id number] [place] [address] 18 Jan, 2014 [facility] [place] [facility] [address] [id number] [place] [address] 15 Jan, 2014 [facility] [place] [facility] [address] [id number] [place] [address] 15 Jan, 2014 [facility] [place] [facility] [address] [id number] [place] [address] 10 Dec, 2013 [facility] [place] [facility] [address] [id number] [place] [address] 10 Dec, 2013 [facility] [place] [facility] [address] [id number] [place] [address] 13 Nov, 2013 [facility] [place] [facility] [address] [id number] [place] [address] 13 Nov, 2013 [facility] [place] [facility] [address] [id number] [place] [address] 26 Oct, 2013 [facility] [place] [facility] [address] [id number] [place] [address] 26 Oct, 2013 [facility] [place] [facility] [address] [facility] [id number] [place] [address] Oct, 2013 [facility] [place] [facility] [address] [facility] [id number] [place] [address] Oct, [facility] [place] [facility] [address] [id number] [place] [address] Sep, [facility] [place] [facility] [address] [id number] [place] [address] Sep, [facility] [place] [facility] [address] [facility] [id number] [place] [address] Sep, [facility] [place] [facility] [address] [id number] [place] [address] Sep, [facility] [place] [facility] [address] [id number] [place] [address] Sep, [facility] [place] [facility] [address] [id number] [place] [address] Sep, [facility] [place] [facility] [address] [id number] [place] [address] Sep, [facility] [place] [facility] [address] [id number] [place] [address] Sep, [facility] [place] [facility] [address] [id number] [place] [address] Sep, [facility] [place] [facility] [address] [id number] [place] [address] Sep, [facility] [place] [facility] [address] [id number] [place] [address] Sep, [facility] [place] [facility] [address] [id number] [place] [address] Sep, [facility] [place] [facility] [address] [id number] [place] [address] Aug, [facility] [place] [facility] [address] [id number] [place] [address] Aug, [facility] [place] [facility] [address] [id number] [place] [address] 14 Aug, 2013 [facility] [place] [facility] [address] [facility] [id number] [facility] [place] [address] 14 Aug, 2013 [facility] [place] [facility] [address] [facility] [id number] [place] [address] June, [facility] [place] [facility] [address] [facility] [id number] [place] [address] 24 May, 2013 [facility] [place] [facility] [address] [facility] [id number] [place] [address] 24 May, 2013 [facility] [place] [facility] [address] [facility] [id number] [place] [address] May, [facility] [place] [facility] [address] [facility] [id number] [place] [address] 18 May, 2013 [facility] [place] [facility] [address] [id number] [facility] [place] [address] 17 May, 2013 [facility] [place] [facility] [address] [id number] [place] [address] 17 May, 2013 [facility] [place] [facility] [address] [facility] [id number] [facility] [place] [address] 16 May, 2013 [facility] [place] [facility] [address] [facility] [id number] [facility] [place] [address] 16 May, 2013 [facility] [place] [facility] [address] [facility] [id number] [facility] [place] [address] 14 May, 2013 [facility] [place] [facility] [address] [id number] [facility] [place] [address] 14 May, 2013 [facility] [place] [facility] [address] [facility] [id number] [place] [address] 14 May, 2013 [facility] [place] [facility] [address] [facility] [id number] [place] [address] 14 May, 2013 [facility] [place] [facility] [address] [facility] [id number] [facility] [place] [address] 11 Apr, 2013 [facility] [place] [facility] [address] [id number] [facility] [place] [address] Apr, [facility] [place] [facility] [address] [id number] [place] [address] Mar, [facility] [address] [id number] [place] [address] Mar, [facility] [place] [facility] [address] [id number] [place] [address] Dec, [facility] [place] [facility] [address] [id number] [place] [address] Dec, [facility] [place] [facility] [address] [id number] [place] [address] Dec, [facility] [place] [facility] [address] [id number] [place] [address] Dec, [facility] [place] [facility] [address] [id number] [place] [address] Nov, [facility] [place] [facility] [address] [id number] [place] [address] Nov, [facility] [place] [facility] [address] [id number] [place] [address] Oct, [facility] [place] [facility] [address] [id number] [place] [address] Oct, [facility] [place] [facility] [address] [id number] [place] [address] Aug, [facility] [place] [facility] [address] [id number] [place] [address] Aug, [facility] [place] [facility] [address] [id number] [place] [address] Aug, [facility] [place] [facility] [address] [id number] [place] [address] Jul, [facility] [place] [facility] [address] [place] [id number] [place] [address] June, [facility] [place] [facility] [address] [id number] [place] [address] June, [facility] [place] [facility] [address] [id number] [place] [address] Apr, [facility] [address] [id number] [place] [address] Mar, [facility] [place] [facility] [address] [id number] [place] [address] Mar, [facility] [place] [facility] [address] [id number] [place] [address] Mar, [facility] [address] [id number] [place] [address] Mar, [facility] [address] [id number] [place] [address] Mar, [facility] [address] [id number] [place] [address] Feb, [facility] [address] [id number] [place] [address] Feb, [facility] [address] [id number] [place] [address] Feb, [facility] [address] [id number] [place] [address] Feb, [facility] [address] [id number] [place] [address] Jan, [facility] [address] [id number] [place] [address] Jan, [facility] [address] [id number] [place] [address] Dec, [facility] [address] [id number] [place] [address] Dec, [facility] [address] [id number] [place] [address] Dec, [facility] [address] [id number] [place] [address] Dec, [facility] [address] [id number] [place] [address] Oct, [facility] [address] [id number] [place] [address] Aug, [facility] [address] [id number] [place] [address] Jul, [facility] [address] [id number] [place] [address] June, [facility] [address] [id number] [place] [address] June, [facility] [address] [id number] [place] [address] June, [facility] [address] [id number] [place] [address] June, [facility] [address] [id number] [place] [address] June, [facility] [address] [id number] [place] [address] May, [facility] [address] [id number] [place] [address] May, [facility] [address] [id number] [place] [address] Apr, [facility] [address] [id number] [place] [address] Apr, [facility] [address] [id number] [place] [address] Mar, [facility] [address] [id number] [place] [address] Feb, [facility] [address] [id number] [place] [address] Nov, [facility] [id number] [place] [address] Nov, [facility] [address] [id number] [place] [address] Nov, [facility] [id number] [place] [address] Apr, [facility] [address] [id number] [place] [address] 07 Jan, 2010 [facility] [address] [id number] [place] [address] 24 Dec, 2009 [facility] [address] [id number] [place] [address] Dec, [facility] [address] [id number] [place] [address] 29 Nov, 2009 [facility] [address] [id number] [place] [address] June, [facility] [address] [id number] [place] [address] 29 Jan, 2009 [facility] [address] [id number] [place] [address] 28 Jan, 2009 [facility] [address] [id number] [place] [address] 23 Jan, 2009 [facility] [address] [id number] [place] [address] 22 Jan, 2009 [facility] [address] [id number] [place] [address] 16 Jan, 2009 [facility] [address] [id number] [place] [address] 15 Jan, 2009 [facility] [address] [id number] [place] [address] 15 Jan, 2009 [facility] [address] [id number] [place] [address] 11 Jan, 2009 [facility] [address] [id number] [place] [address] 11 Jan, 2009 [facility] [address] [id number] [place] [address] 10 Jan, 2009 [facility] [address] [id number] [place] [address] 04 Jan, 2009 [facility] [address] [id number] [place] [address] Jan, [facility] [address] [id number] [place] [address] Dec, [facility] [address] [id number] [place] [address] Dec, [facility] [address] [id number] [place] [address] Dec, [facility] [address] [id number] [place] [address] Dec, [facility] [address] [id number] [place] [address] Nov, [facility] [address] [id number] [place] [address] Oct, IMMUNIZATIONS No Known Immunizations SOCIAL HISTORY [...]
--- OUTSIDE RECORDS SUMMARY | 2019-07-04 10:15 | XMS REPORT ---
Author Author Charles Perez Doctor Organization [facility] Address Unknown Phone Unavailable Care Team Providers Care Boilermaker Helper Name Role Phone Migration, Doctor Unavailable Unavailable PROBLEMS Type Condition ICD9-CM Code SXF21-IW Code Onset Dates Condition S tatus SNOMED Code Problem director long term care 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 Active 159213199 Problem Insomnia, unspecified G47.00 Active 218090618 Problem Chronic kidney disease, stage 3 N18.3 Active 491049667 Problem 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 035344512 Problem Gout of left knee due to renal impairment, unspe cified chronicity M10.362 Active 714220634 Problem Mood disorder F39 Active 598684 05 Problem Essential hypertension I10 Active 45293116 Problem Primary osteoarthritis of left knee M17.12 Active 623921843899435 Problem Kidney stone N20.0 Active 0824552 7 Problem Proteinuria R80.9 Active 55929739 Problem Sinusitis J32.9 Active 45998342 Problem Dependence on renal dialysis Z99.2 A ctive 109006572 Problem Delayed gastric emptying K30 Activ e 956760115 Problem Gastroesophageal reflux disease, esophagitis pre sence not specified K21.9 Active 941210733 Problem End stage renal disease N18.6 Active 90476504 Problem Chronic kidney disease, stage V (very severe) N18. 5 Active 291465690 Problem Hypertriglyceridemia E78.1 Active 954425650 Problem Coronary atherosclerosis of unspecified type of vessel, tlingit & haida or graft I25.10 Active 216911295 Problem End stage kidney disease N18.6 Activ e 98705871 Problem Type 2 diabetes mellitus with hyperglycemia E11.65 Active 844099162249964 Problem Hypoglycemia E16.2 Active 9243652 03 Problem Diabetes E11.9 Active 597708734 ALLERGIES No Information ENCOUNTERS Encounter Location Date Diagnosis [facility] [address] [id number] [place] [address] Jan, Other viral warts B07.8 ; Diabetes E11.9 ; Dependence on renal dialysis Z99.2 and End stage renal disease N18.6 [place] [address] [address] Oct, Type 2 diabetes mellitus with diabetic n ephropathy E11.21 ; Hypoglycemia E16.2 and Dermatofibroma D23.9 [place] [address] [address] Oct, [place] [address] [address] Jul, Type 2 diabetes mellitus with hyperglyce fareed E11.65 [place] [address] [address] Jul, Type 2 diabetes mellitus with hyperglyce fareed E11.65 [place] [address] [address] Jul, Type 2 diabetes mellitus with hyperglyce fareed E11.65 [place] [address] [address] June, Type 2 diabetes mellitus with hyperglyce fareed E11.65 ; End stage kidney disease N18.6 and Callus L84 [place] [address] [address] May, [place] [address] [address] May, Essential hypertension I10 [place] [address] [address] Apr, [place] [address] [address] Apr, Type 2 diabetes mellitus with hyperglyce fareed E11.65 and Essential hypertension I10 [place] [address] [address] Apr, [place] [address] [address] Apr, Type 2 diabetes mellitus with hyperglyce fareed E11.65 [place] [address] [address] Apr, [place] [address] [address] Mar, Type 2 diabetes mellitus with hyperglyce fareed E11.65 [place] [address] [address] Mar, Type 2 diabetes mellitus with diabetic n ephropathy E11.21 ; End stage kidney disease N18.6 ; Callus L84 and Onychomycosis B35.1 [place] [address] [address] Feb, [facility] [address] [facility] [id number] [address] [place] [address] Feb, Sinusitis J32.9 ; Nausea R11 .0 and Otalgia H92.[address] [address] Jan, [place] [address] [address] Jan, [place] [address] [address] Jan, Essential hypertension I10 ; Gout, unspe cified M10.9 ; Coronary atherosclerosis of unspecified type of vessel, tlingit & haida or graft I25.10 ; Mixed hyperlipidemia E78.2 and Type 2 diabetes mellitus with hyperglycemia E11.65 [place] [address] [address] Dec, Chronic kidney disease, stage 3 N18.3 ; Proteinuria R80.9 ; Diabetes mellitus E11.9 ; Acute kidney failure, unspecified N17.9 and Mixed hyperlipidemia E78.2 [place] [address] [address] Dec, Chronic kidney disease, stage 3 N18.3 ; Essential hypertension I10 ; Proteinuria R80.9 ; Diabetes mellitus E11.9 ; Kidney stone N20.0 ; Acute kidney failure, unspecified N17.9 ; Edema R60.9 and Mixed hyperlipidemia E78.2 [place] [address] [address] Dec, Type 2 diabetes mellitus with hyperglyce fareed E11.65 [place] [address] [address] Dec, Chronic kidney disease, stage 3 N18.3 [place] [address] [address] Dec, Type 2 diabetes mellitus with hyperglyce fareed E11.65 [place] [address] [address] Dec, [place] [address] [address] Nov, Type 2 diabetes mellitus with hyperglyce fareed E11.65 [place] [address] [address] Nov, [place] [address] [address] Nov, Chronic kidney disease, stage V (very se zahra) N18.5 ; Type 2 diabetes mellitus with hyperglycemia E11.65 ; Encounter for immunization Z23 and Delayed gastric emptying K30 [place] [address] [address] Nov, [place] [address] [address] Oct, Essential hypertension I10 ; Coronary at herosclerosis of unspecified type of vessel, tlingit & haida or graft I25.10 ; Type 2 diabetes mellitus with hyperglycemia E11.65 and Gout, unspecified M10.9 [place] [address] [address] Oct, Chronic kidney disease, stage V (very se zahra) N18.5 [place] [address] [address] Oct, Mixed hyperlipidemia E78.2 [place] [address] [address] Sep, Type 2 diabetes mellitus with hyperglyce fareed E11.65 [place] [address] [address] Sep, Mixed hyperlipidemia E78.2 [place] [address] [address] Sep, Chronic kidney disease, stage V (very se zahra) N18.5 [place] [address] [address] Sep, Type 2 diabetes mellitus with hyperglyce fareed E11.65 and Essential hypertension I10 [place] [address] [address] Sep, Type 2 diabetes mellitus with hyperglyce fareed E11.65 [place] [address] [address] Aug, Gout, unspecified M10.9 ; Gastroesophage al reflux disease, esophagitis presence not specified K21.9 ; Mood disorder F39 and Coronary atherosclerosis of unspecified type of vessel, tlingit & haida or graft I25.10 [place] [address] [address] Aug, [place] [address] [address] June, Type 2 diabetes mellitus with hyperglyce fareed E11.65 [place] [address] [address] May, Mood disorder F39 ; Gastroesophageal ref lux disease, esophagitis presence not specified K21.9 ; Gout, unspecified M10.9 ; Coronary atherosclerosis of unspecified type of vessel, tlingit & haida or graft I25.10 and Type 2 diabetes mellitus with hyperglycemia E11.65 [place] [address] [address] May, Type 2 diabetes mellitus with hyperglyce fareed E11.65 [place] [address] [address] Apr, Diabetes E11.9 and Mood disorder F39 [place] [address] [address] 15 Mar, 2017 Primary osteoarthritis of left knee M17. 12 and Tear of lateral meniscus of left knee, unspecified tear type, unspecified whether old or current tear, initial encounter S83.282A [place] [address] [address] Feb, Mood disorder F39 [place] [address] [address] 09 Feb, 2017 Pseudogout M11.20 [place] [address] [address] Jan, Other director long term care (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 therapy Z 79.899 [facility] [address] [facility] [id number] [address] [place] [address] Jan, [place] [address] [address] Jan, Pseudogout M11.20 ; Type 2 diabetes familia itus with hyperglycemia E11.65 and Other director long term care (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 [place] [address] [address] Jan, Gout of left knee due to renal impairmen t, unspecified chronicity M10.362 ; Type 2 diabetes mellitus with diabetic nephropathy E11.21 ; Synovial cyst of popliteal space [Mejia], left knee M71.22 and Low back pain M54.5 [place] [address] [address] 21 Dec, 2016 Pseudogout M11.20 [place] [address] [address] 14 Dec, 2016 [place] [address] [address] 13 Dec, 2016 Type 2 diabetes mellitus with diabetic n ephropathy E11.21 and Right anterior knee pain M25.561 [place] [address] [address] Nov, Pseudogout M11.20 [place] [address] [address] Nov, Pseudogout M11.20 ; Chronic kidney disea se, stage 3 N18.3 ; Mixed hyperlipidemia E78.2 ; Gout, unspecified M10.9 ; Coronary atherosclerosis of unspecified type of vessel, tlingit & haida or graft I25.10 ; Mood disorder F39 and Gastroesophageal reflux disease, esophagitis presence not specified K21.9 [place] [address] [address] Nov, [place] [address] [address] Oct, Pseudogout M11.20 [place] [address] [address] Sep, Pseudogout M11.20 [place] [address] [address] Sep, Pseudogout M11.20 [place] [address] [address] Sep, [place] [address] [id number] [id number] Aug, [place] [address] [address] Aug, Diabetes E11.9 ; Chronic kidney disease, stage 3 N18.3 ; Hyperuricemia E79.0 ; Mixed hyperlipidemia E78.2 ; Gastroesophageal reflux disease, esophagitis presence not specified K21.9 ; Gout, unspecified M10.9 ; Coronary atherosclerosis of unspecified type of vessel, tlingit & haida or graft I25.10 and Mood disorder F39 [place] [address] [address] June, [place] [address] [address] June, [place] [address] [address] June, [facility] [address] [address] May, Chronic renal failure, stage 3 (moderate ) N18.3 [facility] [address] [address] May, Diabetes E11.9 [facility] [address] [address] May, [facility] [address] [address] Apr, [place] [address] [address] Apr, [place] [address] [address] Apr, Cellulitis of right lower extremity L03. 115 and Diabetes E11.9 [place] [address] [address] Apr, Type 2 diabetes mellitus with hyperglyce fareed E11.65 [place] [address] [address] Mar, Cellulitis of right lower extremity L03. 115 and Low back pain M54.5 [place] [address] [address] Mar, [place] [address] [address] Mar, Cellulitis of right lower extremity L03. 115 [place] [address] [address] Mar, Cellulitis of right lower extremity L03. 115 [place] [address] [address] Feb, Cellulitis of right lower extremity L03. 115 [place] [address] [address] Feb, Cellulitis of right lower extremity L03. 115 [place] [address] [address] Feb, [place] [address] [address] Feb, Leukocytosis, unspecified type D72.829 ; Chronic renal failure, stage 3 (moderate) N18.3 and Type 2 diabetes mellitus with hyperglycemia E11.65 [place] [address] [address] Feb, Leukocytosis, unspecified type D72.829 [place] [address] [address] Feb, [place] [address] [address] Feb, Cellulitis of right lower extremity L03. 115 ; Thrush B37.0 ; Gout of left knee due to renal impairment, unspecified chronicity M10.362 and Chronic renal failure, stage 3 (moderate) N18.3 [place] [address] [address] Feb, [place] [address] [address] Feb, Right foot infection L08.9 ; Type 2 diab etes mellitus with hyperglycemia E11.65 ; Arthralgia of left knee M25.562 ; Chronic kidney disease, stage 3 N18.3 and Diabetes E11.9 [place] [address] [place] [id number] [place] [address] Feb, [place] [address] [address] Feb, Diabetes E11.9 ; Arthralgia of left knee M25.562 and Thrush B37.0 [place] [address] [address] Jan, [place] [address] [address] Jan, Type 2 diabetes mellitus with hyperglyce fareed E11.65 ; Chronic renal failure, stage 3 (moderate) N18.3 and Leukocytosis, unspecified type D72.[address] [address] Jan, Type 2 diabetes mellitus with hyperglyce fareed E11.[address] [address] Dec, Gout of left knee due to renal impairmen t, unspecified chronicity M10.[address] [address] Dec, Gout of left knee due to renal impairmen t, unspecified chronicity M10.362 and Diabetes E11.[address] [address] Dec, [address] [address] Dec, [facility] [address] [address] Dec, [address] [address] Dec, Chronic kidney disease, stage 3 N18.3 ; Type 2 diabetes mellitus with diabetic nephropathy E11.21 ; Type 2 diabetes mellitus with hyperglycemia E11.65 and director long term care 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 [facility] [address] [address] Dec, Leukocytosis, unspecified ty pe D72.829 ; Chronic renal failure, stage 3 (moderate) N18.3 and Nausea R11.[address] [address] Nov, [address] [address] Jul, [address] [address] Jul, Diabetes E11.9 ; Low back pain M54.5 and Other chronic pain G89.29 [place] [address] [address] June, [facility] [address] [address] June, [place] [address] [address] Jan, Viral illness B34.9 [place] [address] [address] Jan, Type 2 diabetes mellitus with hyperglyce fareed E11.65 ; Pain in right foot M79.671 and Localized edema R60.0 [place] [address] [address] Jan, [place] [address] [address] Dec, Right foot pain M79.671 ; Insomnia, unsp ecified type G47.00 and Diabetes E11.9 [place] [address] [address] Dec, Pain in right foot M79.671 [place] [address] [address] Nov, [place] [address] [address] Sep, [place] [address] [address] Sep, Diabetes mellitus, type II 250.00 [place] [address] [address] May, [place] [address] [address] May, [place] [address] [address] Apr, [place] [address] [id number] [place] [address] 19 Apr, 2014 [facility] [place] [facility] [address] [id number] [place] [address] 16 Apr, 2014 [facility] [place] [facility] [address] [id number] [place] [address] 16 Apr, 2014 [facility] [place] [facility] [address] [id number] [place] [address] 12 Apr, 2014 [facility] [place] [facility] [address] [id number] [place] [address] 12 Apr, 2014 [facility] [place] [facility] [address] [id number] [place] [address] 05 Apr, 2014 [facility] [place] [facility] [address] [id number] [place] [address] 05 Apr, 2014 [facility] [place] [facility] [address] [id number] [place] [address] 18 Jan, 2014 [facility] [place] [facility] [address] [id number] [place] [address] 18 Jan, 2014 [facility] [place] [facility] [address] [id number] [place] [address] 15 Jan, 2014 [facility] [place] [facility] [address] [id number] [place] [address] 15 Jan, 2014 [facility] [place] [facility] [address] [id number] [place] [address] 10 Dec, 2013 [facility] [place] [facility] [address] [id number] [place] [address] 10 Dec, 2013 [facility] [place] [facility] [address] [id number] [place] [address] 13 Nov, 2013 [facility] [place] [facility] [address] [id number] [place] [address] 13 Nov, 2013 [facility] [place] [facility] [address] [id number] [place] [address] 26 Oct, 2013 [facility] [place] [facility] [address] [id number] [place] [address] 26 Oct, 2013 [facility] [place] [facility] [address] [facility] [id number] [place] [address] Oct, 2013 [facility] [place] [facility] [address] [facility] [id number] [place] [address] Oct, [facility] [place] [facility] [address] [id number] [place] [address] Sep, [facility] [place] [facility] [address] [id number] [place] [address] Sep, [facility] [place] [facility] [address] [facility] [id number] [place] [address] Sep, [facility] [place] [facility] [address] [id number] [place] [address] Sep, [facility] [place] [facility] [address] [id number] [place] [address] Sep, [facility] [place] [facility] [address] [id number] [place] [address] Sep, [facility] [place] [facility] [address] [id number] [place] [address] Sep, [facility] [place] [facility] [address] [id number] [place] [address] Sep, [facility] [place] [facility] [address] [id number] [place] [address] Sep, [facility] [place] [facility] [address] [id number] [place] [address] Sep, [facility] [place] [facility] [address] [id number] [place] [address] Sep, [facility] [place] [facility] [address] [id number] [place] [address] Sep, [facility] [place] [facility] [address] [id number] [place] [address] Aug, [facility] [place] [facility] [address] [id number] [place] [address] Aug, [facility] [place] [facility] [address] [id number] [place] [address] 14 Aug, 2013 [facility] [place] [facility] [address] [facility] [id number] [facility] [place] [address] 14 Aug, 2013 [facility] [place] [facility] [address] [facility] [id number] [place] [address] June, [facility] [place] [facility] [address] [facility] [id number] [place] [address] 24 May, 2013 [facility] [place] [facility] [address] [facility] [id number] [place] [address] 24 May, 2013 [facility] [place] [facility] [address] [facility] [id number] [place] [address] May, [facility] [place] [facility] [address] [facility] [id number] [place] [address] 18 May, 2013 [facility] [place] [facility] [address] [id number] [facility] [place] [address] 17 May, 2013 [facility] [place] [facility] [address] [id number] [place] [address] 17 May, 2013 [facility] [place] [facility] [address] [facility] [id number] [facility] [place] [address] 16 May, 2013 [facility] [place] [facility] [address] [facility] [id number] [facility] [place] [address] 16 May, 2013 [facility] [place] [facility] [address] [facility] [id number] [facility] [place] [address] 14 May, 2013 [facility] [place] [facility] [address] [id number] [facility] [place] [address] 14 May, 2013 [facility] [place] [facility] [address] [facility] [id number] [place] [address] 14 May, 2013 [facility] [place] [facility] [address] [facility] [id number] [place] [address] 14 May, 2013 [facility] [place] [facility] [address] [facility] [id number] [facility] [place] [address] 11 Apr, 2013 [facility] [place] [facility] [address] [id number] [facility] [place] [address] Apr, [facility] [place] [facility] [address] [id number] [place] [address] Mar, [facility] [address] [id number] [place] [address] Mar, [facility] [place] [facility] [address] [id number] [place] [address] Dec, [facility] [place] [facility] [address] [id number] [place] [address] Dec, [facility] [place] [facility] [address] [id number] [place] [address] Dec, [facility] [place] [facility] [address] [id number] [place] [address] Dec, [facility] [place] [facility] [address] [id number] [place] [address] Nov, [facility] [place] [facility] [address] [id number] [place] [address] Nov, [facility] [place] [facility] [address] [id number] [place] [address] Oct, [facility] [place] [facility] [address] [id number] [place] [address] Oct, [facility] [place] [facility] [address] [id number] [place] [address] Aug, [facility] [place] [facility] [address] [id number] [place] [address] Aug, [facility] [place] [facility] [address] [id number] [place] [address] Aug, [facility] [place] [facility] [address] [id number] [place] [address] Jul, [facility] [place] [facility] [address] [place] [id number] [place] [address] June, [facility] [place] [facility] [address] [id number] [place] [address] June, [facility] [place] [facility] [address] [id number] [place] [address] Apr, [facility] [address] [id number] [place] [address] Mar, [facility] [address] [id number] [place] [address] Mar, [facility] [address] [id number] [place] [address] Mar, [facility] [address] [id number] [place] [address] Mar, [facility] [address] [id number] [place] [address] Mar, [facility] [address] [id number] [place] [address] Feb, [facility] [address] [id number] [place] [address] Feb, [facility] [address] [id number] [place] [address] Feb, [facility] [address] [id number] [place] [address] Feb, [facility] [address] [id number] [place] [address] Jan, [facility] [address] [id number] [place] [address] Jan, [facility] [address] [id number] [place] [address] Dec, [facility] [address] [id number] [place] [address] Dec, [facility] [address] [id number] [place] [address] Dec, [facility] [address] [id number] [place] [address] Dec, [facility] [address] [id number] [place] [address] Oct, [facility] [address] [id number] [place] [address] Aug, [facility] [address] [id number] [place] [address] Jul, [facility] [address] [id number] [place] [address] June, [facility] [address] [id number] [place] [address] June, [facility] [address] [id number] [place] [address] June, [facility] [address] [id number] [place] [address] June, [facility] [address] [id number] [place] [address] June, [facility] [address] [id number] [place] [address] May, [facility] [place] [facility] [address] [id number] [place] [address] May, [facility] [place] [facility] [address] [id number] [place] [address] Apr, [facility] [place] [facility] [address] [id number] [place] [address] Apr, [facility] [place] [facility] [address] [id number] [place] [address] Mar, [facility] [place] [facility] [address] [id number] [place] [address] Feb, [facility] [place] [facility] [address] [id number] [place] [address] Nov, [facility] [place] [facility] [id number] [place] [address] Nov, [facility] [place] [facility] [address] [id number] [place] [address] Nov, [facility] [place] [facility] [id number] [place] [address] Apr, [facility] [place] [facility] [address] [id number] [place] [address] 07 Jan, 2010 [facility] [place] [facility] [address] [id number] [place] [address] 24 Dec, 2009 [facility] [place] [facility] [address] [id number] [place] [address] Dec, [facility] [address] [id number] [place] [address] 29 Nov, 2009 [facility] [place] [facility] [address] [id number] [place] [address] June, [facility] [address] [id number] [place] [address] 29 Jan, 2009 [facility] [place] [facility] [address] [id number] [place] [address] 28 Jan, 2009 [facility] [address] [id number] [place] [address] 23 Jan, 2009 [facility] [place] [facility] [address] [id number] [place] [address] 22 Jan, 2009 [facility] [address] [id number] [place] [address] 16 Jan, 2009 [facility] [place] [facility] [address] [id number] [place] [address] 15 Jan, 2009 [facility] [place] [facility] [address] [id number] [place] [address] 15 Jan, 2009 [facility] [place] [facility] [address] [id number] [place] [address] 11 Jan, 2009 [facility] [place] [facility] [address] [id number] [place] [address] 11 Jan, 2009 [facility] [place] [facility] [address] [id number] [place] [address] 10 Jan, 2009 [facility] [place] [facility] [address] [id number] [place] [address] 04 Jan, 2009 [facility] [place] [facility] [address] [id number] [place] [address] Jan, [facility] [address] [id number] [place] [address] Dec, [facility] [address] [id number] [place] [address] Dec, [facility] [address] [id number] [place] [address] Dec, [facility] [address] [id number] [place] [address] Dec, [facility] [address] [id number] [place] [address] Nov, [facility] [address] [id number] [place] [address] Oct, IMMUNIZATIONS No Known Immunizations SOCIAL HISTORY Never Assessed REASON FOR VISIT PLAN OF CARE VITAL SIGNS Height 73 in 2013-06-11 Weight 291.2 lbs 2013-06-11 Temperature 98.1 degrees Fahrenheit 2013-06-11 Heart Rate 92 bpm 2013-06-11 Respiratory Rate 20 2013-06-11 Blood pressure systolic 128 mmHg 2013-06-11 Blood pressure diastolic 86 mmHg 2013-06-11 MEDICATIONS No Known Medications RESULTS No Results PROCEDURES Procedure Date Ordered Result Body Site GLYCATED HEMOGLOBIN TEST June 11, 2013 INSTRUCTIONS MEDICATIONS ADMINISTERED No Known Medications MEDICAL [...] knee pseudogout s tatus post joint fluid analysis-[facility] 09/20/16 Hospitalization History kidneys--[place] 11/2017 Hospitalization History Diverticulitis--[place] 06/2018
--- OUTSIDE RECORDS SUMMARY | 2019-07-04 10:15 | XMS REPORT ---
Author Author Charles Perez Doctor Organization [facility] Address Unknown Phone Unavailable Care Team Providers Care Fingerprint Technician Name Role Phone Migration, Doctor Unavailable Unavailable PROBLEMS Type Condition ICD9-CM Code DPM53-SP Code Onset Dates Condition S tatus SNOMED Code Problem rn long term care 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 Active 951514876 Problem Insomnia, unspecified G47.00 Active 199174068 Problem Chronic kidney disease, stage 3 N18.3 Active 491724761 Problem 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 800797734 Problem Gout of left knee due to renal impairment, unspe cified chronicity M10.362 Active 603106328 Problem Mood disorder F39 Active 341129 05 Problem Essential hypertension I10 Active 82189503 Problem Primary osteoarthritis of left knee M17.12 Active 378408196035927 Problem Kidney stone N20.0 Active 3867924 7 Problem Proteinuria R80.9 Active 05061921 Problem Sinusitis J32.9 Active 81535283 Problem Dependence on renal dialysis Z99.2 A ctive 207721077 Problem Delayed gastric emptying K30 Activ e 061644093 Problem Gastroesophageal reflux disease, esophagitis pre sence not specified K21.9 Active 141410007 Problem End stage renal disease N18.6 Active 76018069 Problem Chronic kidney disease, stage V (very severe) N18. 5 Active 539009852 Problem Hypertriglyceridemia E78.1 Active 470496261 Problem Coronary atherosclerosis of unspecified type of vessel, [place] or graft I25.10 Active 074825332 Problem End stage kidney disease N18.6 Activ e 57446888 Problem Type 2 diabetes mellitus with hyperglycemia E11.65 Active 140415651953554 Problem Hypoglycemia E16.2 Active 1394458 03 Problem Diabetes E11.9 Active 884356339 ALLERGIES No Information ENCOUNTERS Encounter Location Date Diagnosis [facility] [address] [id number] [place] [address] Jan, Other viral warts B07.8 ; Diabetes E11.9 ; Dependence on renal dialysis Z99.2 and End stage renal disease N18.6 [place] [address] [address] Oct, Type 2 diabetes mellitus with diabetic n ephropathy E11.21 ; Hypoglycemia E16.2 and Dermatofibroma D23.9 [place] [address] [address] Oct, [place] [address] [address] Jul, Type 2 diabetes mellitus with hyperglyce fareed E11.65 [place] [address] [address] Jul, Type 2 diabetes mellitus with hyperglyce fareed E11.65 [place] [address] [address] Jul, Type 2 diabetes mellitus with hyperglyce fareed E11.65 [place] [address] [address] June, Type 2 diabetes mellitus with hyperglyce fareed E11.65 ; End stage kidney disease N18.6 and Callus L84 [place] [address] [address] May, [place] [address] [address] May, Essential hypertension I10 [place] [address] [address] Apr, [place] [address] [address] Apr, Type 2 diabetes mellitus with hyperglyce fareed E11.65 and Essential hypertension I10 [place] [address] [address] Apr, [place] [address] [address] Apr, Type 2 diabetes mellitus with hyperglyce fareed E11.65 [place] [address] [address] Apr, [place] [address] [address] Mar, Type 2 diabetes mellitus with hyperglyce fareed E11.65 [place] [address] [address] Mar, Type 2 diabetes mellitus with diabetic n ephropathy E11.21 ; End stage kidney disease N18.6 ; Callus L84 and Onychomycosis B35.1 [place] [address] [address] Feb, [facility] [address] [facility] [id number] [address] [place] [address] Feb, Sinusitis J32.9 ; Nausea R11 .0 and Otalgia H92.[address] [address] Jan, [place] [address] [address] Jan, [place] [address] [address] Jan, Essential hypertension I10 ; Gout, unspe cified M10.9 ; Coronary atherosclerosis of unspecified type of vessel, [place] or graft I25.10 ; Mixed hyperlipidemia E78.2 and Type 2 diabetes mellitus with hyperglycemia E11.65 [place] [address] [address] Dec, Chronic kidney disease, stage 3 N18.3 ; Proteinuria R80.9 ; Diabetes mellitus E11.9 ; Acute kidney failure, unspecified N17.9 and Mixed hyperlipidemia E78.2 [place] [address] [address] Dec, Chronic kidney disease, stage 3 N18.3 ; Essential hypertension I10 ; Proteinuria R80.9 ; Diabetes mellitus E11.9 ; Kidney stone N20.0 ; Acute kidney failure, unspecified N17.9 ; Edema R60.9 and Mixed hyperlipidemia E78.2 [place] [address] [address] Dec, Type 2 diabetes mellitus with hyperglyce fareed E11.65 [place] [address] [address] Dec, Chronic kidney disease, stage 3 N18.3 [place] [address] [address] Dec, Type 2 diabetes mellitus with hyperglyce fareed E11.65 [place] [address] [address] Dec, [place] [address] [address] Nov, Type 2 diabetes mellitus with hyperglyce fareed E11.65 [place] [address] [address] Nov, [place] [address] [address] Nov, Chronic kidney disease, stage V (very se zahra) N18.5 ; Type 2 diabetes mellitus with hyperglycemia E11.65 ; Encounter for immunization Z23 and Delayed gastric emptying K30 [place] [address] [address] Nov, [place] [address] [address] Oct, Essential hypertension I10 ; Coronary at herosclerosis of unspecified type of vessel, [place] or graft I25.10 ; Type 2 diabetes mellitus with hyperglycemia E11.65 and Gout, unspecified M10.9 [place] [address] [address] Oct, Chronic kidney disease, stage V (very se zahra) N18.5 [place] [address] [address] Oct, Mixed hyperlipidemia E78.2 [place] [address] [address] Sep, Type 2 diabetes mellitus with hyperglyce fareed E11.65 [place] [address] [address] Sep, Mixed hyperlipidemia E78.2 [place] [address] [address] Sep, Chronic kidney disease, stage V (very se zahra) N18.5 [place] [address] [address] Sep, Type 2 diabetes mellitus with hyperglyce fareed E11.65 and Essential hypertension I10 [place] [address] [address] Sep, Type 2 diabetes mellitus with hyperglyce fareed E11.65 [place] [address] [address] Aug, Gout, unspecified M10.9 ; Gastroesophage al reflux disease, esophagitis presence not specified K21.9 ; Mood disorder F39 and Coronary atherosclerosis of unspecified type of vessel, [place] or graft I25.10 [place] [address] [address] Aug, [place] [address] [address] June, Type 2 diabetes mellitus with hyperglyce fareed E11.65 [place] [address] [address] May, Mood disorder F39 ; Gastroesophageal ref lux disease, esophagitis presence not specified K21.9 ; Gout, unspecified M10.9 ; Coronary atherosclerosis of unspecified type of vessel, [place] or graft I25.10 and Type 2 diabetes mellitus with hyperglycemia E11.65 [place] [address] [address] May, Type 2 diabetes mellitus with hyperglyce fareed E11.65 [place] [address] [address] Apr, Diabetes E11.9 and Mood disorder F39 [place] [address] [address] 15 Mar, 2017 Primary osteoarthritis of left knee M17. 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 [facility] [address] [facility] [id number] [address] [place] [address] Jan, [place] [address] [address] Jan, Pseudogout M11.20 ; Type 2 diabetes familia itus with hyperglycemia E11.65 and 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 [place] [address] [address] Jan, Gout of left knee due to renal impairmen t, unspecified chronicity M10.362 ; Type 2 diabetes mellitus with diabetic nephropathy E11.21 ; Synovial cyst of popliteal space [Mejia], left knee M71.22 and Low back pain M54.5 [place] [address] [address] 21 Dec, 2016 Pseudogout M11.20 [place] [address] [address] 14 Dec, 2016 [place] [address] [address] 13 Dec, 2016 Type 2 diabetes mellitus with diabetic n ephropathy E11.21 and Right anterior knee pain M25.561 [place] [address] [address] Nov, Pseudogout M11.20 [place] [address] [address] Nov, Pseudogout M11.20 ; Chronic kidney disea se, stage 3 N18.3 ; Mixed hyperlipidemia E78.2 ; Gout, unspecified M10.9 ; Coronary atherosclerosis of unspecified type of vessel, [place] or graft I25.10 ; Mood disorder F39 and Gastroesophageal reflux disease, esophagitis presence not specified K21.9 [place] [address] [address] Nov, [place] [address] [address] Oct, Pseudogout M11.20 [place] [address] [address] Sep, Pseudogout M11.20 [place] [address] [address] Sep, Pseudogout M11.20 [place] [address] [address] Sep, [place] [address] [id number] [id number] Aug, [place] [address] [address] Aug, Diabetes E11.9 ; Chronic kidney disease, stage 3 N18.3 ; Hyperuricemia E79.0 ; Mixed hyperlipidemia E78.2 ; Gastroesophageal reflux disease, esophagitis presence not specified K21.9 ; Gout, unspecified M10.9 ; Coronary atherosclerosis of unspecified type of vessel, [place] or graft I25.10 and Mood disorder F39 [place] [address] [address] June, [place] [address] [address] June, [place] [address] [address] June, [facility] [address] [address] May, Chronic renal failure, stage 3 (moderate ) N18.3 [facility] [address] [address] May, Diabetes E11.9 [facility] [address] [address] May, [facility] [address] [address] Apr, [place] [address] [address] Apr, [place] [address] [address] Apr, Cellulitis of right lower extremity L03. 115 and Diabetes E11.9 [place] [address] [address] Apr, Type 2 diabetes mellitus with hyperglyce fareed E11.65 [place] [address] [address] Mar, Cellulitis of right lower extremity L03. 115 and Low back pain M54.5 [place] [address] [address] Mar, [place] [address] [address] Mar, Cellulitis of right lower extremity L03. 115 [place] [address] [address] Mar, Cellulitis of right lower extremity L03. 115 [place] [address] [address] Feb, Cellulitis of right lower extremity L03. 115 [place] [address] [address] Feb, Cellulitis of right lower extremity L03. 115 [place] [address] [address] Feb, [place] [address] [address] Feb, Leukocytosis, unspecified type D72.829 ; Chronic renal failure, stage 3 (moderate) N18.3 and Type 2 diabetes mellitus with hyperglycemia E11.65 [place] [address] [address] Feb, Leukocytosis, unspecified type D72.829 [place] [address] [address] Feb, [place] [address] [address] Feb, Cellulitis of right lower extremity L03. 115 ; Thrush B37.0 ; Gout of left knee due to renal impairment, unspecified chronicity M10.362 and Chronic renal failure, stage 3 (moderate) N18.3 [place] [address] [address] Feb, [place] [address] [address] Feb, Right foot infection L08.9 ; Type 2 diab etes mellitus with hyperglycemia E11.65 ; Arthralgia of left knee M25.562 ; Chronic kidney disease, stage 3 N18.3 and Diabetes E11.9 [place] [address] [place] [id number] [place] [address] Feb, [place] [address] [address] Feb, Diabetes E11.9 ; Arthralgia of left knee M25.562 and Thrush B37.0 [place] [address] [address] Jan, [place] [address] [address] Jan, Type 2 diabetes mellitus with hyperglyce fareed E11.65 ; Chronic renal failure, stage 3 (moderate) N18.3 and Leukocytosis, unspecified type D72.[address] [address] Jan, Type 2 diabetes mellitus with hyperglyce fareed E11.[address] [address] Dec, Gout of left knee due to renal impairmen t, unspecified chronicity M10.[address] [address] Dec, Gout of left knee due to renal impairmen t, unspecified chronicity M10.362 and Diabetes E11.[address] [address] Dec, [address] [address] Dec, [facility] [place] [address] [address] Dec, [address] [address] Dec, Chronic kidney disease, stage 3 N18.3 ; Type 2 diabetes mellitus with diabetic nephropathy E11.21 ; Type 2 diabetes mellitus with hyperglycemia E11.65 and rn long term care 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 [facility] [address] [address] Dec, Leukocytosis, unspecified ty pe D72.829 ; Chronic renal failure, stage 3 (moderate) N18.3 and Nausea R11.[address] [address] Nov, [address] [address] Jul, [address] [address] Jul, Diabetes E11.9 ; Low back pain M54.5 and Other chronic pain G89.29 [place] [address] [address] June, [facility] [address] [address] June, [place] [address] [address] Jan, Viral illness B34.9 [place] [address] [address] Jan, Type 2 diabetes mellitus with hyperglyce fareed E11.65 ; Pain in right foot M79.671 and Localized edema R60.0 [place] [address] [address] Jan, [place] [address] [address] Dec, Right foot pain M79.671 ; Insomnia, unsp ecified type G47.00 and Diabetes E11.9 [place] [address] [address] Dec, Pain in right foot M79.671 [place] [address] [address] Nov, [place] [address] [address] Sep, [place] [address] [address] Sep, Diabetes mellitus, type II 250.00 [place] [address] [address] May, [place] [address] [address] May, [place] [address] [address] Apr, [place] [address] [id number] [place] [address] 19 Apr, 2014 [facility] [place] [facility] [address] [id number] [place] [address] 16 Apr, 2014 [facility] [place] [facility] [address] [id number] [place] [address] 16 Apr, 2014 [facility] [place] [facility] [address] [id number] [place] [address] 12 Apr, 2014 [facility] [place] [facility] [address] [id number] [place] [address] 12 Apr, 2014 [facility] [place] [facility] [address] [id number] [place] [address] 05 Apr, 2014 [facility] [place] [facility] [address] [id number] [place] [address] 05 Apr, 2014 [facility] [place] [facility] [address] [id number] [place] [address] 18 Jan, 2014 [facility] [place] [facility] [address] [id number] [place] [address] 18 Jan, 2014 [facility] [place] [facility] [address] [id number] [place] [address] 15 Jan, 2014 [facility] [place] [facility] [address] [id number] [place] [address] 15 Jan, 2014 [facility] [place] [facility] [address] [id number] [place] [address] 10 Dec, 2013 [facility] [place] [facility] [address] [id number] [place] [address] 10 Dec, 2013 [facility] [place] [facility] [address] [id number] [place] [address] 13 Nov, 2013 [facility] [place] [facility] [address] [id number] [place] [address] 13 Nov, 2013 [facility] [place] [facility] [address] [id number] [place] [address] 26 Oct, 2013 [facility] [place] [facility] [address] [id number] [place] [address] 26 Oct, 2013 [facility] [place] [facility] [address] [facility] [id number] [place] [address] Oct, 2013 [facility] [place] [facility] [address] [facility] [id number] [place] [address] Oct, [facility] [place] [facility] [address] [id number] [place] [address] Sep, [facility] [place] [facility] [address] [id number] [place] [address] Sep, [facility] [place] [facility] [address] [facility] [id number] [place] [address] Sep, [facility] [place] [facility] [address] [id number] [place] [address] Sep, [facility] [place] [facility] [address] [id number] [place] [address] Sep, [facility] [place] [facility] [address] [id number] [place] [address] Sep, [facility] [place] [facility] [address] [id number] [place] [address] Sep, [facility] [place] [facility] [address] [id number] [place] [address] Sep, [facility] [place] [facility] [address] [id number] [place] [address] Sep, [facility] [place] [facility] [address] [id number] [place] [address] Sep, [facility] [place] [facility] [address] [id number] [place] [address] Sep, [facility] [place] [facility] [address] [id number] [place] [address] Sep, [facility] [place] [facility] [address] [id number] [place] [address] Aug, [facility] [place] [facility] [address] [id number] [place] [address] Aug, [facility] [place] [facility] [address] [id number] [place] [address] 14 Aug, 2013 [facility] [place] [facility] [address] [facility] [id number] [facility] [place] [address] 14 Aug, 2013 [facility] [place] [facility] [address] [facility] [id number] [place] [address] June, [facility] [place] [facility] [address] [facility] [id number] [place] [address] 24 May, 2013 [facility] [place] [facility] [address] [facility] [id number] [place] [address] 24 May, 2013 [facility] [place] [facility] [address] [facility] [id number] [place] [address] May, [facility] [place] [facility] [address] [facility] [id number] [place] [address] 18 May, 2013 [facility] [place] [facility] [address] [id number] [facility] [place] [address] 17 May, 2013 [facility] [place] [facility] [address] [id number] [place] [address] 17 May, 2013 [facility] [place] [facility] [address] [facility] [id number] [facility] [place] [address] 16 May, 2013 [facility] [place] [facility] [address] [facility] [id number] [facility] [place] [address] 16 May, 2013 [facility] [place] [facility] [address] [facility] [id number] [facility] [place] [address] 14 May, 2013 [facility] [place] [facility] [address] [id number] [facility] [place] [address] 14 May, 2013 [facility] [place] [facility] [address] [facility] [id number] [place] [address] 14 May, 2013 [facility] [place] [facility] [address] [facility] [id number] [place] [address] 14 May, 2013 [facility] [place] [facility] [address] [facility] [id number] [facility] [place] [address] 11 Apr, 2013 [facility] [place] [facility] [address] [id number] [facility] [place] [address] Apr, [facility] [place] [facility] [address] [id number] [place] [address] Mar, [facility] [address] [id number] [place] [address] Mar, [facility] [place] [facility] [address] [id number] [place] [address] Dec, [facility] [place] [facility] [address] [id number] [place] [address] Dec, [facility] [place] [facility] [address] [id number] [place] [address] Dec, [facility] [place] [facility] [address] [id number] [place] [address] Dec, [facility] [place] [facility] [address] [id number] [place] [address] Nov, [facility] [place] [facility] [address] [id number] [place] [address] Nov, [facility] [place] [facility] [address] [id number] [place] [address] Oct, [facility] [place] [facility] [address] [id number] [place] [address] Oct, [facility] [place] [facility] [address] [id number] [place] [address] Aug, [facility] [place] [facility] [address] [id number] [place] [address] Aug, [facility] [place] [facility] [address] [id number] [place] [address] Aug, [facility] [place] [facility] [address] [id number] [place] [address] Jul, [facility] [place] [facility] [address] [place] [id number] [place] [address] June, [facility] [place] [facility] [address] [id number] [place] [address] June, [facility] [place] [facility] [address] [id number] [place] [address] Apr, [facility] [address] [id number] [place] [address] Mar, [facility] [address] [id number] [place] [address] Mar, [facility] [address] [id number] [place] [address] Mar, [facility] [address] [id number] [place] [address] Mar, [facility] [address] [id number] [place] [address] Mar, [facility] [address] [id number] [place] [address] Feb, [facility] [address] [id number] [place] [address] Feb, [facility] [address] [id number] [place] [address] Feb, [facility] [address] [id number] [place] [address] Feb, [facility] [address] [id number] [place] [address] Jan, [facility] [address] [id number] [place] [address] Jan, [facility] [address] [id number] [place] [address] Dec, [facility] [address] [id number] [place] [address] Dec, [facility] [address] [id number] [place] [address] Dec, [facility] [address] [id number] [place] [address] Dec, [facility] [address] [id number] [place] [address] Oct, [facility] [address] [id number] [place] [address] Aug, [facility] [address] [id number] [place] [address] Jul, [facility] [address] [id number] [place] [address] June, [facility] [address] [id number] [place] [address] June, [facility] [address] [id number] [place] [address] June, [facility] [address] [id number] [place] [address] June, [facility] [address] [id number] [place] [address] June, [facility] [address] [id number] [place] [address] May, [facility] [address] [id number] [place] [address] May, [facility] [address] [id number] [place] [address] Apr, [facility] [address] [id number] [place] [address] Apr, [facility] [address] [id number] [place] [address] Mar, [facility] [address] [id number] [place] [address] Feb, [facility] [address] [id number] [place] [address] Nov, [facility] [id number] [place] [address] Nov, [facility] [address] [id number] [place] [address] Nov, [facility] [id number] [place] [address] Apr, [facility] [address] [id number] [place] [address] 07 Jan, 2010 [facility] [address] [id number] [place] [address] 24 Dec, 2009 [facility] [address] [id number] [place] [address] Dec, [facility] [address] [id number] [place] [address] 29 Nov, 2009 [facility] [address] [id number] [place] [address] June, [facility] [address] [id number] [place] [address] 29 Jan, 2009 [facility] [address] [id number] [place] [address] 28 Jan, 2009 [facility] [address] [id number] [place] [address] 23 Jan, 2009 [facility] [address] [id number] [place] [address] 22 Jan, 2009 [facility] [address] [id number] [place] [address] 16 Jan, 2009 [facility] [address] [id number] [place] [address] 15 Jan, 2009 [facility] [address] [id number] [place] [address] 15 Jan, 2009 [facility] [address] [id number] [place] [address] 11 Jan, 2009 [facility] [address] [id number] [place] [address] 11 Jan, 2009 [facility] [address] [id number] [place] [address] 10 Jan, 2009 [facility] [address] [id number] [place] [address] 04 Jan, 2009 [facility] [address] [id number] [place] [address] Jan, [facility] [address] [id number] [place] [address] Dec, [facility] [address] [id number] [place] [address] Dec, [facility] [address] [id number] [place] [address] Dec, [facility] [address] [id number] [place] [address] Dec, [facility] [address] [id number] [place] [address] Nov, [facility] [address] [id number] [place] [address] Oct, IMMUNIZATIONS No Known Immunizations SOCIAL HISTORY Never Assessed REASON FOR VISIT PLAN OF CARE VITAL SIGNS MEDICATIONS No Known Medications RESULTS No Results PROCEDURES Procedure Date Ordered Result Body Site COMPREHEN METABOLIC PANEL June 14, 2013 LIPID PANEL June 14, 2013 MICROALBUMIN, SEMIQUANT June 14, 2013 GLYCATED HEMOGLOBIN TEST June 14, 2013 MICROALBUMIN, QUANTITATIVE June 14, 2013 VENIPUNCT, ROUTINE* June 14, 2013 INSTRUCTIONS MEDICATIONS ADMINISTERED No Known Medications [...] knee pseudogout s tatus post joint fluid analysis-[facility] 09/20/16 Hospitalization History kidneys--11/2017 Hospitalization History Diverticulitis--[facility] 06/2018
--- OUTSIDE RECORDS SUMMARY | 2019-07-04 10:15 | XMS REPORT ---
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 Active 116804299 Problem Insomnia, unspecified G47.00 Active 198664517 Problem Chronic kidney disease, stage 3 N18.3 Active 328100062 Problem 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 591715982 Problem Gout of left knee due to renal impairment, unspe cified chronicity M10.362 Active 080438689 Problem Mood disorder F39 Active 203499 05 Problem Essential hypertension I10 Active 03680143 Problem Primary osteoarthritis of left knee M17.12 Active 958493231925559 Problem Kidney stone N20.0 Active 1966909 7 Problem Proteinuria R80.9 Active 42213132 Problem Sinusitis J32.9 Active 73225394 Problem Dependence on renal dialysis Z99.2 A ctive 310858479 Problem Delayed gastric emptying K30 Activ e 464892597 Problem Gastroesophageal reflux disease, esophagitis pre sence not specified K21.9 Active 876073132 Problem End stage renal disease N18.6 Active 72613365 Problem Chronic kidney disease, stage V (very severe) N18. 5 Active 269806344 Problem Hypertriglyceridemia E78.1 Active 688605294 Problem Coronary atherosclerosis of unspecified type of vessel, [place] or graft I25.10 Active 711654461 Problem End stage kidney disease N18.6 Activ e 97862120 Problem Type 2 diabetes mellitus with hyperglycemia E11.65 Active 704124693947570 Problem Hypoglycemia E16.2 Active 6489503 03 Problem Diabetes E11.9 Active [id number] ALLERGIES No Information ENCOUNTERS Encounter Location Date Diagnosis [facility] [address] [id number] [place] [address] Feb, [facility] [address] [id number] [place] [address] Jan, Other viral warts B07.8 ; Diabetes E11.9 ; Dependence on renal dialysis Z99.2 and End stage renal disease N18.6 [place] [address] [address] Oct, Type 2 diabetes mellitus with diabetic n ephropathy E11.21 ; Hypoglycemia E16.2 and Dermatofibroma D23.9 [place] [address] [address] Oct, [place] [address] [address] Jul, Type 2 diabetes mellitus with hyperglyce fareed E11.65 [place] [address] [address] Jul, Type 2 diabetes mellitus with hyperglyce fareed E11.65 [place] [address] [address] Jul, Type 2 diabetes mellitus with hyperglyce fareed E11.65 [place] [address] [address] June, Type 2 diabetes mellitus with hyperglyce fareed E11.65 ; End stage kidney disease N18.6 and Callus L84 [place] [address] [address] May, [place] [address] [address] May, Essential hypertension I10 [place] [address] [address] Apr, [place] [address] [address] Apr, Type 2 diabetes mellitus with hyperglyce fareed E11.65 and Essential hypertension I10 [place] [address] [address] Apr, [place] [address] [address] Apr, Type 2 diabetes mellitus with hyperglyce fareed E11.65 [facility] [address] [address] Apr, [place] [address] [address] Mar, Type 2 diabetes mellitus with hyperglyce fareed E11.65 [place] [address] [address] Mar, Type 2 diabetes mellitus with diabetic n ephropathy E11.21 ; End stage kidney disease N18.6 ; Callus L84 and Onychomycosis B35.[address] [address] Feb, [facility] [address] [facility] [address] [id number] [address] [place] [address] Feb, Sinusitis J32.9 ; Nausea R11 .0 and Otalgia H92.[address] [address] Jan, [place] [address] [address] Jan, [address] [address] Jan, Essential hypertension I10 ; Gout, unspe cified M10.9 ; Coronary atherosclerosis of unspecified type of vessel, [place] or graft I25.10 ; Mixed hyperlipidemia E78.2 and Type 2 diabetes mellitus with hyperglycemia E11.65 [place] [address] [address] Dec, Chronic kidney disease, stage 3 N18.3 ; Proteinuria R80.9 ; Diabetes mellitus E11.9 ; Acute kidney failure, unspecified N17.9 and Mixed hyperlipidemia E78.2 [place] [address] [address] Dec, Chronic kidney disease, stage 3 N18.3 ; Essential hypertension I10 ; Proteinuria R80.9 ; Diabetes mellitus E11.9 ; Kidney stone N20.0 ; Acute kidney failure, unspecified N17.9 ; Edema R60.9 and Mixed hyperlipidemia E78.2 [place] [address] [address] Dec, Type 2 diabetes mellitus with hyperglyce fareed E11.65 [place] [address] [address] Dec, Chronic kidney disease, stage 3 N18.3 [place] [address] [address] Dec, Type 2 diabetes mellitus with hyperglyce fareed E11.65 [place] [address] [address] Dec, [place] [address] [address] Nov, Type 2 diabetes mellitus with hyperglyce fareed E11.65 [place] [address] [address] Nov, [place] [address] [address] Nov, Chronic kidney disease, stage V (very se zahra) N18.5 ; Type 2 diabetes mellitus with hyperglycemia E11.65 ; Encounter for immunization Z23 and Delayed gastric emptying K30 [place] [address] [address] Nov, [address] [address] Oct, Essential hypertension I10 ; Coronary at herosclerosis of unspecified type of vessel, [place] or graft I25.10 ; Type 2 diabetes mellitus with hyperglycemia E11.65 and Gout, unspecified M10.9 [place] [address] [address] Oct, Chronic kidney disease, stage V (very se zahra) N18.5 [place] [address] [address] Oct, Mixed hyperlipidemia E78.2 [place] [address] [address] Sep, Type 2 diabetes mellitus with hyperglyce fareed E11.65 [place] [address] [address] Sep, Mixed hyperlipidemia E78.2 [place] [address] [address] 16 Sep, 2017 Chronic kidney disease, stage V (very se zahra) N18.5 [place] [address] [address] Sep, Type 2 diabetes mellitus with hyperglyce fareed E11.65 and Essential hypertension I10 [place] [address] [address] Sep, Type 2 diabetes mellitus with hyperglyce fareed E11.65 [place] [address] [address] Aug, Gout, unspecified M10.9 ; Gastroesophage al reflux disease, esophagitis presence not specified K21.9 ; Mood disorder F39 and Coronary atherosclerosis of unspecified type of vessel, [place] or graft I25.10 [place] [address] [address] Aug, [place] [address] [address] June, Type 2 diabetes mellitus with hyperglyce fareed E11.65 [place] [address] [address] May, Mood disorder F39 ; Gastroesophageal ref lux disease, esophagitis presence not specified K21.9 ; Gout, unspecified M10.9 ; Coronary atherosclerosis of unspecified type of vessel, [place] or graft I25.10 and Type 2 diabetes mellitus with hyperglycemia E11.65 [place] [address] [address] May, Type 2 diabetes mellitus with hyperglyce fareed E11.65 [place] [address] [address] 09 Apr, 2017 Diabetes E11.9 and Mood disorder F39 [place] [address] [address] 15 Mar, 2017 Primary osteoarthritis of left knee M17. 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 [facility] [address] [facility] [address] [id number] [address] [place] [address] Jan, [place] [address] [address] Jan, Pseudogout M11.20 ; Type 2 diabetes familia itus with hyperglycemia E11.65 and Other correction (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 [place] [address] [address] Jan, Gout of left knee due to renal impairmen t, unspecified chronicity M10.362 ; Type 2 diabetes mellitus with diabetic nephropathy E11.21 ; Synovial cyst of popliteal space [Mejia], left knee M71.22 and Low back pain M54.5 [place] [address] [address] Dec, Pseudogout M11.20 [place] [address] [address] 14 Dec, 2016 [place] [address] [address] 13 Dec, 2016 Type 2 diabetes mellitus with diabetic n ephropathy E11.21 and Right anterior knee pain M25.561 [place] [address] [address] Nov, Pseudogout M11.20 [place] [address] [address] Nov, Pseudogout M11.20 ; Chronic kidney disea se, stage 3 N18.3 ; Mixed hyperlipidemia E78.2 ; Gout, unspecified M10.9 ; Coronary atherosclerosis of unspecified type of vessel, [place] or graft I25.10 ; Mood disorder F39 and Gastroesophageal reflux disease, esophagitis presence not specified K21.9 [place] [address] [address] Nov, [place] [address] [address] Oct, Pseudogout M11.20 [place] [address] [address] Sep, Pseudogout M11.20 [place] [address] [address] Sep, Pseudogout M11.20 [place] [address] [address] Sep, [place] [address] [id number] [id number] Aug, [place] [address] [address] Aug, Diabetes E11.9 ; Chronic kidney disease, stage 3 N18.3 ; Hyperuricemia E79.0 ; Mixed hyperlipidemia E78.2 ; Gastroesophageal reflux disease, esophagitis presence not specified K21.9 ; Gout, unspecified M10.9 ; Coronary atherosclerosis of unspecified type of vessel, [place] or graft I25.10 and Mood disorder F39 [place] [address] [address] June, [place] [address] [place] [address] June, [facility] [address] [address] June, [facility] [address] [address] May, Chronic renal failure, stage 3 (moderate ) N18.3 [place] [address] [address] May, Diabetes E11.9 [place] [address] [address] May, [place] [address] [address] Apr, [place] [address] [address] Apr, [place] [address] [address] Apr, Cellulitis of right lower extremity L03. 115 and Diabetes E11.9 [place] [address] [address] Apr, Type 2 diabetes mellitus with hyperglyce fareed E11.65 [place] [address] [address] Mar, Cellulitis of right lower extremity L03. 115 and Low back pain M54.5 [place] [address] [address] Mar, [place] [address] [address] Mar, Cellulitis of right lower extremity L03. 115 [place] [address] [address] Mar, Cellulitis of right lower extremity L03. 115 [place] [address] [address] Feb, Cellulitis of right lower extremity L03. 115 [place] [address] [address] Feb, Cellulitis of right lower extremity L03. 115 [place] [address] [address] Feb, [place] [address] [address] Feb, Leukocytosis, unspecified type D72.829 ; Chronic renal failure, stage 3 (moderate) N18.3 and Type 2 diabetes mellitus with hyperglycemia E11.65 [place] [address] [address] Feb, Leukocytosis, unspecified type D72.829 [place] [address] [address] Feb, [place] [address] [address] Feb, Cellulitis of right lower extremity L03. 115 ; Thrush B37.0 ; Gout of left knee due to renal impairment, unspecified chronicity M10.362 and Chronic renal failure, stage 3 (moderate) N18.3 [place] [address] [address] Feb, [place] [address] [address] Feb, Right foot infection L08.9 ; Type 2 diab etes mellitus with hyperglycemia E11.65 ; Arthralgia of left knee M25.562 ; Chronic kidney disease, stage 3 N18.3 and Diabetes E11.9 [place] [address] [address] Feb, [place] [address] [address] Feb, Diabetes E11.9 ; Arthralgia of left knee M25.562 and Thrush B37.0 [place] [address] [address] Jan, [place] [address] [address] Jan, Type 2 diabetes mellitus with hyperglyce fareed E11.65 ; Chronic renal failure, stage 3 (moderate) N18.3 and Leukocytosis, unspecified type D72.829 [place] [address] [address] Jan, Type 2 diabetes mellitus with hyperglyce fareed E11.65 [place] [address] [address] Dec, Gout of left knee due to renal impairmen t, unspecified chronicity M10.[address] [address] Dec, Gout of left knee due to renal impairmen t, unspecified chronicity M10.362 and Diabetes E11.9 [place] [address] [address] Dec, [place] [address] [address] Dec, [facility] [address] [address] Dec, [place] [address] [address] Dec, Chronic kidney disease, stage 3 N18.3 ; Type 2 diabetes mellitus with diabetic nephropathy E11.21 ; Type 2 diabetes mellitus with hyperglycemia E11.65 and 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 [facility] [place] [id number] [place] [address] 05 Dec, 2015 Leukocytosis, unspecified ty pe D72.829 ; Chronic renal failure, stage 3 (moderate) N18.3 and Nausea R11.0 [place] [address] [address] Nov, [place] [address] [address] Jul, [place] [address] [address] Jul, Diabetes E11.9 ; Low back pain M54.5 and Other chronic pain G89.29 [place] [address] [address] June, [place] [address] [address] June, [place] [address] [address] Jan, Viral illness B34.[address] [address] Jan, Type 2 diabetes mellitus with hyperglyce fareed E11.65 ; Pain in right foot M79.671 and Localized edema R60.[address] [address] Jan, [address] [address] Dec, Right foot pain M79.671 ; Insomnia, unsp ecified type G47.00 and Diabetes E11.[address] [address] Dec, Pain in right foot M79.[address] [address] Nov, [place] [address] [address] Sep, [address] [address] Sep, Diabetes mellitus, type II 250.[address] [address] May, [address] [address] May, [address] [id number] [place] [address] 19 Apr, 2014 [facility] [place] [facility] [address] [id number] [place] [address] 19 Apr, 2014 [facility] [place] [facility] [address] [id number] [place] [address] 16 Apr, 2014 [facility] [place] [facility] [address] [id number] [place] [address] 16 Apr, 2014 [facility] [place] [facility] [address] [id number] [place] [address] 12 Apr, 2014 [facility] [place] [facility] [address] [id number] [place] [address] 12 Apr, 2014 [facility] [place] [facility] [address] [id number] [place] [address] 05 Apr, 2014 [facility] [place] [facility] [address] [id number] [place] [address] 05 Apr, 2014 [facility] [place] [facility] [address] [id number] [place] [address] 18 Jan, 2014 [facility] [place] [facility] [address] [id number] [place] [address] 18 Jan, 2014 [facility] [place] [facility] [address] [id number] [place] [address] 15 Jan, 2014 [facility] [place] [facility] [address] [id number] [place] [address] 15 Jan, 2014 [facility] [place] [facility] [address] [id number] [place] [address] 10 Dec, 2013 [facility] [place] [facility] [address] [id number] [place] [address] 10 Dec, 2013 [facility] [place] [facility] [address] [id number] [place] [address] 13 Nov, 2013 [facility] [place] [facility] [address] [id number] [place] [address] Nov, [facility] [place] [facility] [address] [id number] [place] [address] 26 Oct, 2013 [facility] [place] [facility] [address] [id number] [place] [address] Oct, 2013 [facility] [place] [facility] [address] [id number] [place] [address] Oct, 2013 [facility] [place] [facility] [address] [id number] [place] [address] Oct, 2013 [facility] [place] [facility] [address] [id number] [place] [address] Sep, [facility] [place] [facility] [address] [id number] [place] [address] Sep, [facility] [place] [facility] [address] [id number] [place] [address] Sep, [facility] [place] [facility] [address] [id number] [place] [address] Sep, [facility] [place] [facility] [address] [id number] [place] [address] Sep, [facility] [place] [facility] [address] [id number] [place] [address] Sep, [facility] [place] [facility] [address] [id number] [place] [address] Sep, [facility] [place] [facility] [address] [id number] [place] [address] Sep, [facility] [place] [facility] [address] [id number] [place] [address] Sep, [facility] [place] [facility] [address] [id number] [place] [address] Sep, [facility] [place] [facility] [address] [id number] [place] [address] Sep, [facility] [place] [facility] [address] [id number] [place] [address] Sep, [facility] [place] [facility] [address] [id number] [place] [address] Aug, [facility] [place] [facility] [address] [id number] [place] [address] 28 Aug, 2013 [facility] [place] [facility] [address] [id number] [place] [address] Aug, [facility] [place] [facility] [address] [id number] [place] [address] Aug, [facility] [place] [facility] [address] [id number] [facility] [place] [address] June, [facility] [place] [facility] [address] [id number] [place] [address] 24 May, 2013 [facility] [place] [facility] [address] [id number] [place] [address] 24 May, 2013 [facility] [place] [facility] [address] [id number] [place] [address] 21 May, 2013 [facility] [place] [facility] [address] [id number] [facility] [place] [address] 18 May, 2013 [facility] [place] [facility] [address] [id number] [facility] [place] [address] 17 May, 2013 [facility] [place] [facility] [address] [id number] [place] [address] 17 May, 2013 [facility] [place] [facility] [address] [id number] [facility] [place] [address] 16 May, 2013 [facility] [place] [facility] [address] [id number] [facility] [place] [address] 16 May, 2013 [facility] [place] [facility] [address] [id number] [facility] [place] [address] 14 May, 2013 [facility] [place] [facility] [address] [id number] [place] [address] 14 May, 2013 [facility] [place] [facility] [address] [id number] [facility] [place] [address] 14 May, 2013 [facility] [place] [facility] [address] [id number] [facility] [place] [address] 14 May, 2013 [facility] [place] [facility] [address] [id number] [facility] [place] [address] Apr, [facility] [place] [facility] [address] [id number] [place] [address] Apr, [facility] [place] [facility] [address] [id number] [place] [address] Mar, [facility] [place] [facility] [address] [id number] [place] [address] Mar, [facility] [place] [facility] [address] [id number] [place] [address] Dec, [facility] [place] [facility] [address] [id number] [place] [address] Dec, [facility] [place] [facility] [address] [id number] [place] [address] Dec, [facility] [place] [facility] [address] [id number] [place] [address] Dec, [facility] [place] [facility] [address] [id number] [place] [address] Nov, [facility] [place] [facility] [address] [id number] [place] [address] Nov, [facility] [place] [facility] [address] [id number] [place] [address] Oct, [facility] [place] [facility] [address] [id number] [place] [address] Oct, [facility] [place] [facility] [address] [id number] [place] [address] Aug, [facility] [place] [facility] [address] [id number] [place] [address] Aug, [facility] [place] [facility] [address] [id number] [place] [address] Aug, [facility] [place] [facility] [address] [id number] [place] [address] Jul, [facility] [place] [facility] [address] [id number] [place] [address] June, [facility] [place] [facility] [address] [id number] [place] [address] June, [facility] [address] [id number] [place] [address] Apr, [facility] [place] [facility] [address] [id number] [place] [address] Mar, [facility] [address] [id number] [place] [address] Mar, [facility] [address] [id number] [place] [address] Mar, [facility] [address] [id number] [place] [address] Mar, [facility] [address] [id number] [place] [address] Mar, [facility] [address] [id number] [place] [address] Feb, [facility] [address] [id number] [place] [address] Feb, [facility] [address] [id number] [place] [address] Feb, [facility] [address] [id number] [place] [address] Feb, [facility] [address] [id number] [place] [address] Jan, [facility] [address] [id number] [place] [address] Jan, [facility] [address] [id number] [place] [address] Dec, [facility] [address] [id number] [place] [address] Dec, [facility] [address] [id number] [place] [address] Dec, [facility] [address] [id number] [place] [address] Dec, [facility] [address] [id number] [place] [address] 04 Oct, 2011 [facility] [address] [id number] [place] [address] Aug, [facility] [address] [id number] [place] [address] Jul, [facility] [address] [id number] [place] [address] June, [facility] [address] [id number] [place] [address] June, [facility] [address] [id number] [place] [address] June, [facility] [address] [id number] [place] [address] June, [facility] [address] [id number] [place] [address] June, [facility] [address] [id number] [place] [address] May, [facility] [address] [id number] [place] [address] May, [facility] [address] [id number] [place] [address] Apr, [facility] [address] [id number] [place] [address] Apr, [facility] [address] [id number] [place] [address] Mar, [facility] [address] [id number] [place] [address] Feb, [facility] [id number] [place] [address] Nov, [facility] [address] [id number] [place] [address] Nov, [facility] [id number] [place] [address] Nov, [facility] [address] [id number] [place] [address] 17 Apr, 2010 [facility] [address] [id number] [place] [address] 07 Jan, 2010 [facility] [address] [id number] [place] [address] 24 Dec, 2009 [facility] [address] [id number] [place] [address] 11 Dec, 2009 [facility] [address] [id number] [place] [address] 29 Nov, 2009 [facility] [address] [id number] [place] [address] June, [facility] [address] [id number] [place] [address] 29 Jan, 2009 [facility] [address] [id number] [place] [address] 28 Jan, 2009 [facility] [address] [id number] [place] [address] 23 Jan, 2009 [facility] [address] [id number] [place] [address] 22 Jan, 2009 [facility] [address] [id number] [place] [address] 16 Jan, 2009 [facility] [address] [id number] [place] [address] 15 Jan, 2009 [facility] [address] [id number] [place] [address] 15 Jan, 2009 [facility] [address] [id number] [place] [address] 11 Jan, 2009 [facility] [address] [id number] [place] [address] 11 Jan, 2009 [facility] [address] [id number] [place] [address] 10 Jan, 2009 [facility] [address] [id number] [place] [address] Jan, [facility] [address] [id number] [place] [address] Jan, [facility] [address] [id number] [place] [address] Dec, [facility] [address] [id number] [place] [address] Dec, [facility] [id number] [place] [address] Dec, [facility] [address] [id number] [place] [address] Dec, [facility] [address] [id number] [place] [address] Nov, [facility] [address] [id number] [place] [address] Oct, IMMUNIZATIONS No Known Immunizations SOCIAL HISTORY Never Assessed REASON FOR VISIT PLAN OF CARE VITAL SIGNS Height 73 in 2013-09-10 Weight 292.8 lbs 2013-09-10 Temperature 96.9 degrees Fahrenheit 2013-09-10 Heart Rate 96 bpm 2013-09-10 Respiratory Rate 20 2013-09-10 Blood pressure systolic 130 mmHg 2013-09-10 Blood pressure diastolic 84 mmHg 2013-09-10 MEDICATIONS Unknown Medications RESULTS No Results PROCEDURES Procedure Date Ordered Result Body Site ASSAY OF BLOOD/URIC ACID September 10, 2013 GLYCATED HEMOGLOBIN TEST September 10, 2013 COMPREHEN METABOLIC PANEL September 10, 2013 VISIT September 10, 2013 INSTRUCTIONS MEDICATIONS ADMINISTERED No Known Medications [...] knee pseudogout s tatus post joint fluid analysis-[facility] 09/20/16 Hospitalization History kidneys--[facility] 11/2017 Hospitalization History Diverticulitis--[facility] 06/2018
--- OUTSIDE RECORDS SUMMARY | 2019-07-04 10:15 | XMS REPORT ---
Author Author Charles MUJICA [facility] Address [address] [place] [address] Care Team Providers Care Kitchen Operator Name Role Phone CHAPARRO MUJICA Unavailable PROBLEMS Type Condition ICD9-CM Code UUU64-SG Code Onset Dates Condition S tatus SNOMED Code Problem custodial 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 Active 197331584 Problem Insomnia, unspecified G47.00 Active 515455464 Problem Chronic kidney disease, stage 3 N18.3 Active 724971751 Problem 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 114555615 Problem Gout of left knee due to renal impairment, unspe cified chronicity M10.362 Active 798710988 Problem Mood disorder F39 Active 334619 05 Problem Essential hypertension I10 Active 82550851 Problem Primary osteoarthritis of left knee M17.12 Active [id number] Problem Kidney stone N20.0 Active 8599831 7 Problem Proteinuria R80.9 Active 88700564 Problem Sinusitis J32.9 Active 76505858 Problem Dependence on renal dialysis Z99.2 A ctive 960458784 Problem Delayed gastric emptying K30 Activ e 539026314 Problem Gastroesophageal reflux disease, esophagitis pre sence not specified K21.9 Active 735827798 Problem End stage renal disease N18.6 Active 75236939 Problem Chronic kidney disease, stage V (very severe) N18. 5 Active 462326551 Problem Hypertriglyceridemia E78.1 Active 921273196 Problem Coronary atherosclerosis of unspecified type of vessel, [place] or graft I25.10 Active 537337324 Problem End stage kidney disease N18.6 Activ e 77829800 Problem Type 2 diabetes mellitus with hyperglycemia E11.65 Active 127039054866005 Problem Hypoglycemia E16.2 Active 9455330 03 Problem Diabetes E11.9 Active 770869429 ALLERGIES No Information ENCOUNTERS Encounter Location Date Diagnosis [facility] [address] [id number] [place] [address] Jan, Other viral warts B07.8 ; Diabetes E11.9 ; Dependence on renal dialysis Z99.2 and End stage renal disease N18.6 [place] [address] [address] Oct, Type 2 diabetes mellitus with diabetic n ephropathy E11.21 ; Hypoglycemia E16.2 and Dermatofibroma D23.9 [place] [address] [address] Oct, [place] [address] [address] Jul, Type 2 diabetes mellitus with hyperglyce fareed E11.65 [place] [address] [address] Jul, Type 2 diabetes mellitus with hyperglyce fareed E11.65 [place] [address] [address] Jul, Type 2 diabetes mellitus with hyperglyce fareed E11.65 [place] [address] [address] June, Type 2 diabetes mellitus with hyperglyce fareed E11.65 ; End stage kidney disease N18.6 and Callus L84 [place] [address] [address] May, [place] [address] [address] May, Essential hypertension I10 [place] [address] [address] Apr, [place] [address] [address] Apr, Type 2 diabetes mellitus with hyperglyce fareed E11.65 and Essential hypertension I10 [place] [address] [address] Apr, [place] [address] [address] Apr, Type 2 diabetes mellitus with hyperglyce fareed E11.65 [facility] [address] [address] Apr, [place] [address] [address] Mar, Type 2 diabetes mellitus with hyperglyce fareed E11.65 [place] [address] [address] Mar, Type 2 diabetes mellitus with diabetic n ephropathy E11.21 ; End stage kidney disease N18.6 ; Callus L84 and Onychomycosis B35.[address] [address] Feb, [facility] IN [facility] [address] [facility] [id number] [address] [place] [address] Feb, Sinusitis J32.9 ; Nausea R11 .0 and Otalgia H92.[address] [address] Jan, [place] [address] [address] Jan, [address] [address] Jan, Essential hypertension I10 ; Gout, unspe cified M10.9 ; Coronary atherosclerosis of unspecified type of vessel, [place] or graft I25.10 ; Mixed hyperlipidemia E78.2 and Type 2 diabetes mellitus with hyperglycemia E11.65 [place] [address] [address] Dec, Chronic kidney disease, stage 3 N18.3 ; Proteinuria R80.9 ; Diabetes mellitus E11.9 ; Acute kidney failure, unspecified N17.9 and Mixed hyperlipidemia E78.2 [place] [address] [address] Dec, Chronic kidney disease, stage 3 N18.3 ; Essential hypertension I10 ; Proteinuria R80.9 ; Diabetes mellitus E11.9 ; Kidney stone N20.0 ; Acute kidney failure, unspecified N17.9 ; Edema R60.9 and Mixed hyperlipidemia E78.2 [place] [address] [address] Dec, Type 2 diabetes mellitus with hyperglyce fareed E11.65 [place] [address] [address] Dec, Chronic kidney disease, stage 3 N18.3 [place] [address] [address] Dec, Type 2 diabetes mellitus with hyperglyce fareed E11.65 [place] [address] [address] Dec, [place] [address] [address] Nov, Type 2 diabetes mellitus with hyperglyce fareed E11.65 [place] [address] [address] Nov, [place] [address] [address] Nov, Chronic kidney disease, stage V (very se zahra) N18.5 ; Type 2 diabetes mellitus with hyperglycemia E11.65 ; Encounter for immunization Z23 and Delayed gastric emptying K30 [place] [address] [address] Nov, [address] [address] Oct, Essential hypertension I10 ; Coronary at herosclerosis of unspecified type of vessel, [place] or graft I25.10 ; Type 2 diabetes mellitus with hyperglycemia E11.65 and Gout, unspecified M10.9 [place] [address] [address] Oct, Chronic kidney disease, stage V (very se zahra) N18.5 [place] [address] [address] Oct, Mixed hyperlipidemia E78.2 [place] [address] [address] Sep, Type 2 diabetes mellitus with hyperglyce fareed E11.65 [place] [address] [address] Sep, Mixed hyperlipidemia E78.2 [place] [address] [address] 16 Sep, 2017 Chronic kidney disease, stage V (very se zahra) N18.5 [place] [address] [address] Sep, Type 2 diabetes mellitus with hyperglyce fareed E11.65 and Essential hypertension I10 [place] [address] [address] Sep, Type 2 diabetes mellitus with hyperglyce fareed E11.65 [place] [address] [address] Aug, Gout, unspecified M10.9 ; Gastroesophage al reflux disease, esophagitis presence not specified K21.9 ; Mood disorder F39 and Coronary atherosclerosis of unspecified type of vessel, [place] or graft I25.10 [place] [address] [address] Aug, [place] [address] [address] June, Type 2 diabetes mellitus with hyperglyce fareed E11.65 [place] [address] [address] May, Mood disorder F39 ; Gastroesophageal ref lux disease, esophagitis presence not specified K21.9 ; Gout, unspecified M10.9 ; Coronary atherosclerosis of unspecified type of vessel, [place] or graft I25.10 and Type 2 diabetes mellitus with hyperglycemia E11.65 [place] [address] [address] May, Type 2 diabetes mellitus with hyperglyce fareed E11.65 [place] [address] [address] 09 Apr, 2017 Diabetes E11.9 and Mood disorder F39 [place] [address] [address] 15 Mar, 2017 Primary osteoarthritis of left knee M17. 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 [place] [address] [address] Jan, Gout of left knee due to renal impairmen t, unspecified chronicity M10.362 ; Type 2 diabetes mellitus with diabetic nephropathy E11.21 ; Synovial cyst of popliteal space [Mejia], left knee M71.22 and Low back pain M54.5 [place] [address] [address] Dec, Pseudogout M11.20 [place] [address] [address] 14 Dec, 2016 [place] [address] [address] 13 Dec, 2016 Type 2 diabetes mellitus with diabetic n ephropathy E11.21 and Right anterior knee pain M25.561 [place] [address] [address] Nov, Pseudogout M11.20 [place] [address] [address] Nov, Pseudogout M11.20 ; Chronic kidney disea se, stage 3 N18.3 ; Mixed hyperlipidemia E78.2 ; Gout, unspecified M10.9 ; Coronary atherosclerosis of unspecified type of vessel, [place] or graft I25.10 ; Mood disorder F39 and Gastroesophageal reflux disease, esophagitis presence not specified K21.9 [place] [address] [address] Nov, [place] [address] [address] Oct, Pseudogout M11.20 [place] [address] [address] Sep, Pseudogout M11.20 [place] [address] [address] Sep, Pseudogout M11.20 [place] [address] [address] Sep, [place] [address] [id number] [id number] Aug, [place] [address] [address] Aug, Diabetes E11.9 ; Chronic kidney disease, stage 3 N18.3 ; Hyperuricemia E79.0 ; Mixed hyperlipidemia E78.2 ; Gastroesophageal reflux disease, esophagitis presence not specified K21.9 ; Gout, unspecified M10.9 ; Coronary atherosclerosis of unspecified type of vessel, [place] or graft I25.10 and Mood disorder F39 [place] [address] [address] June, [place] [address] [place] [address] June, [facility] [address] [address] June, [facility] [address] [address] May, Chronic renal failure, stage 3 (moderate ) N18.3 [place] [address] [address] May, Diabetes E11.9 [place] [address] [address] May, [place] [address] [address] Apr, [place] [address] [address] Apr, [place] [address] [address] Apr, Cellulitis of right lower extremity L03. 115 and Diabetes E11.9 [place] [address] [address] Apr, Type 2 diabetes mellitus with hyperglyce fareed E11.65 [place] [address] [address] Mar, Cellulitis of right lower extremity L03. 115 and Low back pain M54.5 [place] [address] [address] Mar, [place] [address] [address] Mar, Cellulitis of right lower extremity L03. 115 [place] [address] [address] Mar, Cellulitis of right lower extremity L03. 115 [place] [address] [address] Feb, Cellulitis of right lower extremity L03. 115 [place] [address] [address] Feb, Cellulitis of right lower extremity L03. 115 [place] [address] [address] Feb, [place] [address] [address] Feb, Leukocytosis, unspecified type D72.829 ; Chronic renal failure, stage 3 (moderate) N18.3 and Type 2 diabetes mellitus with hyperglycemia E11.65 [place] [address] [address] Feb, Leukocytosis, unspecified type D72.829 [place] [address] [address] Feb, [place] [address] [address] Feb, Cellulitis of right lower extremity L03. 115 ; Thrush B37.0 ; Gout of left knee due to renal impairment, unspecified chronicity M10.362 and Chronic renal failure, stage 3 (moderate) N18.3 [place] [address] [address] Feb, [place] [address] [address] Feb, Right foot infection L08.9 ; Type 2 diab etes mellitus with hyperglycemia E11.65 ; Arthralgia of left knee M25.562 ; Chronic kidney disease, stage 3 N18.3 and Diabetes E11.9 [place] [address] [address] Feb, [place] [address] [address] Feb, Diabetes E11.9 ; Arthralgia of left knee M25.562 and Thrush B37.0 [place] [address] [address] Jan, [place] [address] [address] Jan, Type 2 diabetes mellitus with hyperglyce fareed E11.65 ; Chronic renal failure, stage 3 (moderate) N18.3 and Leukocytosis, unspecified type D72.829 [place] [address] [address] Jan, Type 2 diabetes mellitus with hyperglyce fareed E11.65 [place] [address] [address] Dec, Gout of left knee due to renal impairmen t, unspecified chronicity M10.[address] [address] Dec, Gout of left knee due to renal impairmen t, unspecified chronicity M10.362 and Diabetes E11.9 [place] [address] [address] Dec, [place] [address] [address] Dec, [facility] WALK IN [address] [address] Dec, [place] [address] [address] Dec, Chronic kidney disease, stage 3 N18.3 ; Type 2 diabetes mellitus with diabetic nephropathy E11.21 ; Type 2 diabetes mellitus with hyperglycemia E11.65 and custodial 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 [facility] WALK IN [place] [id number] [place] [address] 05 Dec, 2015 Leukocytosis, unspecified ty pe D72.829 ; Chronic renal failure, stage 3 (moderate) N18.3 and Nausea R11.0 [place] [address] [address] Nov, [place] [address] [address] Jul, [place] [address] [address] Jul, Diabetes E11.9 ; Low back pain M54.5 and Other chronic pain G89.29 [place] [address] [address] June, [place] [address] [address] June, [place] [address] [address] Jan, Viral illness B34.[address] [address] Jan, Type 2 diabetes mellitus with hyperglyce fareed E11.65 ; Pain in right foot M79.671 and Localized edema R60.[address] [address] Jan, [address] [address] Dec, Right foot pain M79.671 ; Insomnia, unsp ecified type G47.00 and Diabetes E11.[address] [address] Dec, Pain in right foot M79.[address] [address] Nov, [place] [address] [address] Sep, [address] [address] Sep, Diabetes mellitus, type II 250.[address] [address] May, [address] [address] May, [address] [id number] [place] [address] 19 Apr, 2014 [facility] [place] [facility] [address] [id number] [place] [address] 19 Apr, 2014 [facility] [place] [facility] [address] [id number] [place] [address] 16 Apr, 2014 [facility] [place] [facility] [address] [id number] [place] [address] 16 Apr, 2014 [facility] [place] [facility] [address] [id number] [place] [address] 12 Apr, 2014 [facility] [place] [facility] [address] [id number] [place] [address] 12 Apr, 2014 [facility] [place] [facility] [address] [id number] [place] [address] 05 Apr, 2014 [facility] [place] [facility] [address] [id number] [place] [address] 05 Apr, 2014 [facility] [place] [facility] [address] [id number] [place] [address] 18 Jan, 2014 [facility] [place] [facility] [address] [id number] [place] [address] 18 Jan, 2014 [facility] [place] [facility] [address] [id number] [place] [address] 15 Jan, 2014 [facility] [place] [facility] [address] [id number] [place] [address] 15 Jan, 2014 [facility] [place] [facility] [address] [id number] [place] [address] 10 Dec, 2013 [facility] [place] [facility] [address] [id number] [place] [address] 10 Dec, 2013 [facility] [place] [facility] [address] [id number] [place] [address] 13 Nov, 2013 [facility] [place] [facility] [address] [id number] [place] [address] Nov, [facility] [place] [facility] [address] [id number] [place] [address] 26 Oct, 2013 [facility] [place] [facility] [address] [facility] [id number] [place] [address] Oct, 2013 [facility] [place] [facility] [address] [facility] [id number] [place] [address] Oct, 2013 [facility] [place] [facility] [address] [id number] [place] [address] Oct, 2013 [facility] [place] [facility] [address] [id number] [place] [address] Sep, [facility] [place] [facility] [address] [facility] [id number] [place] [address] Sep, [facility] [place] [facility] [address] [id number] [place] [address] Sep, [facility] [place] [facility] [address] [id number] [place] [address] Sep, [facility] [place] [facility] [address] [id number] [place] [address] Sep, [facility] [place] [facility] [address] [id number] [place] [address] Sep, [facility] [place] [facility] [address] [id number] [place] [address] Sep, [facility] [place] [facility] [address] [id number] [place] [address] Sep, [facility] [place] [facility] [address] [id number] [place] [address] Sep, [facility] [place] [facility] [address] [id number] [place] [address] Sep, [facility] [place] [facility] [address] [id number] [place] [address] Sep, [facility] [place] [facility] [address] [id number] [place] [address] Sep, [facility] [place] [facility] [address] [id number] [place] [address] Aug, [facility] [place] [facility] [address] [id number] [place] [address] 28 Aug, 2013 [facility] [place] [facility] [address] [facility] [id number] [place] [address] Aug, [facility] [place] [facility] [address] [facility] [id number] [place] [address] Aug, [facility] [place] [facility] [address] [facility] [id number] [place] [address] June, [facility] [place] [facility] [address] [facility] [id number] [place] [address] 24 May, 2013 [facility] [place] [facility] [address] [facility] [id number] [place] [address] 24 May, 2013 [facility] [place] [facility] [address] [facility] [id number] [place] [address] 21 May, 2013 [facility] [place] [facility] [address] [id number] [place] [address] 18 May, 2013 [facility] [place] [facility] [address] [id number] [place] [address] 17 May, 2013 [facility] [place] [facility] [address] [facility] [id number] [place] [address] 17 May, 2013 [facility] [place] [facility] [address] [id number] [place] [address] 16 May, 2013 [facility] [place] [facility] [address] [id number] [place] [address] 16 May, 2013 [facility] [place] [facility] [address] [id number] [place] [address] 14 May, 2013 [facility] [place] [facility] [address] [facility] [id number] [place] [address] 14 May, 2013 [facility] [place] [facility] [address] [facility] [id number] [place] [address] 14 May, 2013 [facility] [place] [facility] [address] [facility] [id number] [place] [address] 14 May, 2013 [facility] [place] [facility] [address] [id number] [place] [address] Apr, [facility] [place] [facility] [address] [id number] [place] [address] Apr, [facility] [place] [facility] [address] [id number] [place] [address] Mar, [facility] [place] [facility] [address] [id number] [place] [address] Mar, [facility] [place] [facility] [address] [id number] [place] [address] Dec, [facility] [place] [facility] [address] [id number] [place] [address] Dec, [facility] [place] [facility] [address] [id number] [place] [address] Dec, [facility] [place] [facility] [address] [id number] [place] [address] Dec, [facility] [place] [facility] [address] [id number] [place] [address] Nov, [facility] [place] [facility] [address] [id number] [place] [address] Nov, [facility] [place] [facility] [address] [id number] [place] [address] Oct, [facility] [place] [facility] [address] [id number] [place] [address] Oct, [facility] [place] [facility] [address] [id number] [place] [address] Aug, [facility] [place] [facility] [address] [id number] [place] [address] Aug, [facility] [place] [facility] [address] [id number] [place] [address] Aug, [facility] [place] [facility] [address] [id number] [place] [address] Jul, [facility] [place] [facility] [address] [id number] [place] [address] June, [facility] [place] [facility] [address] [id number] [place] [address] June, [facility] [address] [id number] [place] [address] Apr, [facility] [place] [facility] [address] [id number] [place] [address] Mar, [facility] [address] [id number] [place] [address] Mar, [facility] [address] [id number] [place] [address] Mar, [facility] [address] [id number] [place] [address] Mar, [facility] [address] [id number] [place] [address] Mar, [facility] [address] [id number] [place] [address] Feb, [facility] [address] [id number] [place] [address] Feb, [facility] [address] [id number] [place] [address] Feb, [facility] [address] [id number] [place] [address] Feb, [facility] [address] [id number] [place] [address] Jan, [facility] [address] [id number] [place] [address] Jan, [facility] [address] [id number] [place] [address] Dec, [facility] [address] [id number] [place] [address] Dec, [facility] [address] [id number] [place] [address] Dec, [facility] [address] [id number] [place] [address] Dec, [facility] [address] [id number] [place] [address] 04 Oct, 2011 [facility] [address] [id number] [place] [address] Aug, [facility] [address] [id number] [place] [address] Jul, [facility] [address] [id number] [place] [address] June, [facility] [address] [id number] [place] [address] June, [facility] [address] [id number] [place] [address] June, [facility] [address] [id number] [place] [address] June, [facility] [address] [id number] [place] [address] June, [facility] [address] [id number] [place] [address] May, [facility] [address] [id number] [place] [address] May, [facility] [address] [id number] [place] [address] Apr, [facility] [address] [id number] [place] [address] Apr, [facility] [address] [id number] [place] [address] Mar, [facility] [address] [id number] [place] [address] Feb, [facility] [id number] [place] [address] Nov, [facility] [address] [id number] [place] [address] Nov, [facility] [id number] [place] [address] Nov, [facility] [address] [id number] [place] [address] 17 Apr, 2010 [facility] [address] [id number] [place] [address] 07 Jan, 2010 [facility] [address] [id number] [place] [address] 24 Dec, 2009 [facility] [address] [id number] [place] [address] 11 Dec, 2009 [facility] [address] [id number] [place] [address] 29 Nov, 2009 [facility] [address] [id number] [place] [address] June, [facility] [address] [id number] [place] [address] 29 Jan, 2009 [facility] [address] [id number] [place] [address] 28 Jan, 2009 [facility] [address] [id number] [place] [address] 23 Jan, 2009 [facility] [address] [id number] [place] [address] 22 Jan, 2009 [facility] [address] [id number] [place] [address] 16 Jan, 2009 [facility] [address] [id number] [place] [address] 15 Jan, 2009 [facility] [address] [id number] [place] [address] 15 Jan, 2009 [facility] [address] [id number] [place] [address] 11 Jan, 2009 [facility] [address] [id number] [place] [address] 11 Jan, 2009 [facility] [address] [id number] [place] [address] 10 Jan, 2009 [facility] [address] [id number] [place] [address] Jan, [facility] [address] [id number] [place] [address] Jan, [facility] [address] [id number] [place] [address] Dec, [facility] [address] [id number] [place] [address] Dec, [facility] [id number] [place] [address] Dec, [facility] [address] [id number] [place] [address] Dec, [facility] [id number] [place] [address] Nov, [facility] [address] [id number] [place] [address] Oct, IMMUNIZATIONS No Known Immunizations SOCIAL HISTORY Never Assessed REASON FOR VISIT VMB not set up- unable to make contact PLAN OF CARE VITAL SIGNS MEDICATIONS No [...]
--- OUTSIDE RECORDS SUMMARY | 2019-07-04 10:16 | XMS REPORT ---
Author Author Charles Perez Doctor Organization [facility] Address Unknown Phone Unavailable Care Team Providers Care Waist Cutter Name Role Phone Migration, Doctor Unavailable Unavailable PROBLEMS Type Condition ICD9-CM Code ALO08-TT Code Onset Dates Condition S tatus SNOMED Code Problem Gastroesophageal reflux disease, esophagitis pre sence not specified K21.9 Active 357028371 Problem Hypertriglyceridemia E78.1 Active 663137993 Problem Insomnia, unspecified G47.00 Active 936535572 Problem Coronary atherosclerosis of unspecified type of vessel, white earth or graft I25.10 Active 357813327 Problem 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 858644093 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 5 Active 887892929 Problem Delayed gastric emptying K30 Activ e 649010094 Problem Type 2 diabetes mellitus with hyperglycemia E11.65 Active [id number] Problem Primary osteoarthritis of left knee M17.12 Active 236986973460310 Problem Hypoglycemia E16.2 Active 1451533 03 Problem Gout of left knee due to renal impairment, unspe cified chronicity M10.362 Active 121348461 Problem Kidney stone N20.0 Active 4855120 7 Problem Proteinuria R80.9 Active 80973171 Problem Sinusitis J32.9 Active 65916361 Problem End stage kidney disease N18.6 Activ e [id number] ALLERGIES No Information ENCOUNTERS Encounter Location Date Diagnosis [facility] [address] [facility] [id number] [address] [place] [address] Oct, Type 2 diabetes mellitus wit h diabetic nephropathy E11.21 ; Hypoglycemia E16.2 and Dermatofibroma D23.9 [facility] [address] [facility] [id number] [address] [place] [address] Oct, [place] [id number] [id number] [address] [place] [address] Jul, Type 2 diabetes mellitus wit h hyperglycemia E11.65 [facility] [address] [facility] [id number] [address] [place] [address] Jul, Type 2 diabetes mellitus wit h hyperglycemia E11.65 [facility] [address] [facility] [id number] [address] [place] [address] Jul, Type 2 diabetes mellitus wit h hyperglycemia E11.65 [facility] [address] [facility] [id number] [address] [place] [address] June, Type 2 diabetes mellitus wit h hyperglycemia E11.65 ; End stage kidney disease N18.6 and Callus L84 [facility] [address] [facility] [id number] [address] [place] [address] May, [facility] [address] [facility] [id number] [address] [place] [address] May, Essential hypertension I10 [facility] [address] [facility] [id number] [address] [place] [phone] Apr, [facility] [address] [facility] [id number] [address] [place] [address] Apr, Type 2 diabetes mellitus wit h hyperglycemia E11.65 and Essential hypertension I10 [facility] [address] [facility] [id number] [address] [place] [address] Apr, [facility] [address] [facility] [id number] [address] [place] [address] Apr, Type 2 diabetes mellitus wit h hyperglycemia E11.65 [facility] [address] [facility] [id number] [address] [place] [address] Apr, [facility] [address] [facility] [id number] [address] [place] [address] Mar, Type 2 diabetes mellitus wit h hyperglycemia E11.65 [facility] [address] [facility] [id number] [address] [place] [address] Mar, Type 2 diabetes mellitus wit h diabetic nephropathy E11.21 ; End stage kidney disease N18.6 ; Callus L84 and Onychomycosis B35.1 [place] [address] [address] Feb, [facility] [address] [address] Feb, Sinusitis J32.9 ; Nausea R11 .0 and Otalgia H92.09 [place] [address] [address] Jan, [place] [address] [address] Jan, [place] [address] [address] 18 Jan, 2018 Essential hypertension I10 ; Gout, unspecified M10.9 ; Coronary atherosclerosis of unspecified type of vessel, white earth or graft I25.10 ; Mixed hyperlipidemia E78.2 and Type 2 diabetes mellitus with hyperglycemia E11.65 [place] [address] [address] Dec, Chronic kidney disease, stag e 3 N18.3 ; Proteinuria R80.9 ; Diabetes mellitus E11.9 ; Acute kidney failure, unspecified N17.9 and Mixed hyperlipidemia E78.2 [place] [address] [address] 16 Dec, 2017 Chronic kidney disease, stag e 3 N18.3 ; Essential hypertension I10 ; Proteinuria R80.9 ; Diabetes mellitus E11.9 ; Kidney stone N20.0 ; Acute kidney failure, unspecified N17.9 ; Edema R60.9 and Mixed hyperlipidemia E78.2 [place] [address] [address] 14 Dec, 2017 Type 2 diabetes mellitus wit h hyperglycemia E11.65 [place] [address] [address] Dec, Chronic kidney disease, stag e 3 N18.3 [place] [address] [place] [id number] [place] [address] Dec, Type 2 diabetes mellitus wit h hyperglycemia E11.65 [place] [address] [place] [id number] [address] [place] [address] Dec, [place] [address] [place] [id number] [place] [address] Nov, Type 2 diabetes mellitus wit h hyperglycemia E11.65 [place] [address] [place] [id number] [place] [address] Nov, [place] [address] [address] Nov, Chronic kidney disease, stag e V (very severe) N18.5 ; Type 2 diabetes mellitus with hyperglycemia E11.65 ; Encounter for immunization Z23 and Delayed gastric emptying K30 [place] [address] [address] Nov, [place] [address] [address] Oct, Essential hypertension I10 ; Coronary atherosclerosis of unspecified type of vessel, white earth or graft I25.10 ; Type 2 diabetes mellitus with hyperglycemia E11.65 and Gout, unspecified M10.9 [place] [address] [place] [id number] [place] [address] Oct, Chronic kidney disease, stag e V (very severe) N18.5 [place] [address] [place] [id number] [address] [place] [address] Oct, Mixed hyperlipidemia E78.2 [place] [address] [place] [id number] [place] [address] Sep, Type 2 diabetes mellitus wit h hyperglycemia E11.65 [place] [address] [place] [id number] [place] [address] Sep, Mixed hyperlipidemia E78.2 [place] [address] [address] Sep, Chronic kidney disease, stag e V (very severe) N18.5 [place] [address] [address] Sep, Type 2 diabetes mellitus wit h hyperglycemia E11.65 and Essential hypertension I10 [place] [address] [address] Sep, Type 2 diabetes mellitus wit h hyperglycemia E11.65 [place] [address] [address] Aug, Gout, unspecified M10.9 ; Ga stroesophageal reflux disease, esophagitis presence not specified K21.9 ; Mood disorder F39 and Coronary atherosclerosis of unspecified type of vessel, white earth or graft I25.10 [place] [address] [address] Aug, [place] [address] [address] June, Type 2 diabetes mellitus wit h hyperglycemia E11.65 [place] [address] [address] May, Mood disorder F39 ; Gastroes ophageal reflux disease, esophagitis presence not specified K21.9 ; Gout, unspecified M10.9 ; Coronary atherosclerosis of unspecified type of vessel, white earth or graft I25.10 and Type 2 diabetes mellitus with hyperglycemia E11.65 [place] [address] [address] May, Type 2 diabetes mellitus wit h hyperglycemia E11.65 [place] [address] [address] Apr, Diabetes E11.9 and Mood diso rder F39 [place] [address] [address] Mar, Primary osteoarthritis of le ft knee M17.12 and Tear of lateral meniscus of left knee, unspecified tear type, unspecified whether old or current tear, initial encounter S83.282A [facility] [address] [facility] [id number] [address] [place] [address] Feb, Mood disorder F39 [facility] [address] [facility] [id number] [address] [place] [address] Feb, Pseudogout M11.20 [facility] [address] [facility] [id number] [address] [place] [address] Jan, 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 [facility] [address] [facility] [id number] [address] [place] [address] Jan, [facility] [address] [facility] [id number] [address] [place] [address] Jan, Pseudogout M11.20 ; Type 2 d iabetes mellitus with hyperglycemia E11.65 and Other intermodal dispatcher (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 [place] [address] [facility] [id number] [address] [place] [address] Jan, Gout of left knee due to eloisa al impairment, unspecified chronicity M10.362 ; Type 2 diabetes mellitus with diabetic nephropathy E11.21 ; Synovial cyst of popliteal space [Mejia], left knee M71.22 and Low back pain M54.5 [place] [address] [facility] [id number] [address] [place] [address] Dec, Pseudogout M11.20 [facility] [address] [facility] [id number] [address] [place] [address] 14 Dec, 2016 [place] [address] [facility] [id number] [address] [place] [address] 13 Dec, 2016 Type 2 diabetes mellitus wit h diabetic nephropathy E11.21 and Right anterior knee pain M25.561 [facility] [address] [facility] [id number] [address] [place] [address] Nov, Pseudogout M11.20 [facility] [address] [place] [id number] [place] [address] Nov, Pseudogout M11.20 ; Chronic kidney disease, stage 3 N18.3 ; Mixed hyperlipidemia E78.2 ; Gout, unspecified M10.9 ; Coronary atherosclerosis of unspecified type of vessel, white earth or graft I25.10 ; Mood disorder F39 and Gastroesophageal reflux disease, esophagitis presence not specified K21.9 [facility] [address] [address] Nov, [place] [address] [address] Oct, Pseudogout M11.20 [place] [address] [place] [id number] [place] [address] Sep, Pseudogout M11.20 [place] [address] [address] Sep, Pseudogout M11.20 [place] [address] [place] [id number] [place] [address] Sep, [facility] [address] [id number] Aug, [facility] [address] [address] Aug, Diabetes E11.9 ; Chronic kid tahir disease, stage 3 N18.3 ; Hyperuricemia E79.0 ; Mixed hyperlipidemia E78.2 ; Gastroesophageal reflux disease, esophagitis presence not specified K21.9 ; Gout, unspecified M10.9 ; Coronary atherosclerosis of unspecified type of vessel, white earth or graft I25.10 and Mood disorder F39 [facility] [address] [place] [id number] [address] [place] [address] June, [facility] [address] [address] June, [facility] [address] [id number] [address] [place] [address] June, [facility] [address] [facility] [id number] [address] [place] [phone] May, Chronic renal failure, stage 3 (moderate) N18.3 [facility] [address] [facility] [id number] [address] [place] [address] May, Diabetes E11.9 [facility] [address] [id number] [address] [place] [address] May, [facility] [address] [id number] [address] [place] [address] Apr, [facility] [address] [facility] [id number] [address] [place] [address] Apr, [place] [address] [facility] [id number] [address] [place] [address] Apr, Cellulitis of right lower ex tremity L03.115 and Diabetes E11.9 [facility] [address] [facility] [id number] [address] [place] [address] Apr, Type 2 diabetes mellitus wit h hyperglycemia E11.65 [facility] [address] [facility] [id number] [address] [place] [address] Mar, Cellulitis of right lower ex tremity L03.115 and Low back pain M54.5 [facility] [address] [facility] [id number] [address] [place] [address] Mar, [facility] [address] [facility] [id number] [address] [place] [address] Mar, Cellulitis of right lower ex tremity L03.115 [facility] [address] [facility] [id number] [address] [place] [address] Mar, Cellulitis of right lower ex tremity L03.115 [place] [address] [facility] [id number] [address] [place] [address] Feb, Cellulitis of right lower ex tremity L03.115 [place] [address] [id number] [address] [place] [address] Feb, Cellulitis of right lower ex tremity L03.115 [place] [address] [id number] [address] [place] [address] Feb, [place] [address] [id number] [address] [place] [address] Feb, Leukocytosis, unspecified ty pe D72.829 ; Chronic renal failure, stage 3 (moderate) N18.3 and Type 2 diabetes mellitus with hyperglycemia E11.65 [place] [address] [id number] [address] [place] [address] Feb, Leukocytosis, unspecified ty pe D72.829 [place] [address] [facility] [id number] [address] [place] [address] Feb, [place] [address] [id number] [address] [place] [address] Feb, Cellulitis of right lower ex tremity L03.115 ; Thrush B37.0 ; Gout of left knee due to renal impairment, unspecified chronicity M10.362 and Chronic renal failure, stage 3 (moderate) N18.3 [place] [address] [id number] [address] [place] [address] Feb, [place] [address] [facility] [id number] [address] [place] [address] Feb, Right foot infection L08.9 ; Type 2 diabetes mellitus with hyperglycemia E11.65 ; Arthralgia of left knee M25.562 ; Chronic kidney disease, stage 3 N18.3 and Diabetes E11.9 [place] [address] [id number] [address] [place] [address] Feb, [place] [address] [facility] [id number] [address] [place] [address] 09 Tod, 2017 Diabetes E11.9 ; Arthralgia of left knee M25.562 and Thrush B37.0 [place] [address] [facility] [id number] [address] [place] [address] Jan, [place] [address] [facility] [id number] [address] [place] [address] Jan, Type 2 diabetes mellitus wit h hyperglycemia E11.65 ; Chronic renal failure, stage 3 (moderate) N18.3 and Leukocytosis, unspecified type D72.829 [place] [address] [place] [id number] [place] [address] Jan, Type 2 diabetes mellitus wit h hyperglycemia E11.65 [place] [address] [facility] [id number] [address] [place] [address] Dec, Gout of left knee due to eloisa al impairment, unspecified chronicity M10.362 [place] [address] [address] Dec, Gout of left knee due to eloisa al impairment, unspecified chronicity M10.362 and Diabetes E11.9 [place] [address] [place] [id number] [place] [address] Dec, [place] [address] [place] [id number] [address] [place] [phone] Dec, [facility] [address] [place] [id number] [address] [place] [address] Dec, [facility] [address] [place] [id number] [address] [place] [address] Dec, Chronic kidney disease, stag e 3 N18.3 ; Type 2 diabetes mellitus with diabetic nephropathy E11.21 ; Type 2 diabetes mellitus with hyperglycemia E11.65 and residential 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 [facility] [address] [facility] [id number] [address] [place] [address] 05 Dec, 2015 Leukocytosis, unspecified ty pe D72.829 ; Chronic renal failure, stage 3 (moderate) N18.3 and Nausea R11.0 [facility] [address] [facility] [id number] [address] [place] [phone] Nov, [facility] [address] [facility] [id number] [address] [place] [address] Jul, [facility] [address] [facility] [id number] [address] [place] [address] Jul, Diabetes E11.9 ; Low back pa in M54.5 and Other chronic pain G89.29 [facility] [address] [id number] [address] [place] [address] June, [facility] [address] [facility] [id number] [address] [place] [address] June, [facility] [address] [facility] [id number] [address] [place] [address] Jan, Viral illness B34.9 [place] [address] [facility] [id number] [address] [place] [address] Jan, Type 2 diabetes mellitus wit h hyperglycemia E11.65 ; Pain in right foot M79.671 and Localized edema R60.0 [facility] [address] [facility] [id number] [address] [place] [address] Jan, [facility] [address] [facility] [id number] [address] [place] [address] Dec, Right foot pain M79.671 ; In somnia, unspecified type G47.00 and Diabetes E11.9 [facility] [address] [facility] [id number] [address] [place] [address] Dec, Pain in right foot M79.671 [facility] [address] [facility] [id number] [address] [place] [phone] Nov, [facility] [address] [facility] [id number] [address] [place] [address] Sep, [facility] [address] [facility] [id number] [address] [place] [address] Sep, Diabetes mellitus, type II 2 50.00 [facility] [address] [id number] [address] [place] [address], [place] [address] 14 May, 2014 [facility] [address] [id number] [address] [place] [address], [place] [address] 13 May, 2014 [facility] [address] [id number] [address] [place] [address], [place] [address] 19 Apr, 2014 [facility] [address] [id number] [address] [place] [address], [place] [address] 19 Apr, 2014 [facility] [address] [id number] [address] [place] [address], [place] [address] 16 Apr, 2014 [facility] [address] [id number] [address] [place] [address], [place] [address] 16 Apr, 2014 [facility] [address] [id number] [address] [place] [address], [place] [address] 12 Apr, 2014 [facility] [address] [id number] [address] [place] [address], [place] [address] 12 Apr, 2014 [facility] [address] [id number] [address] [place] [address], [place] [address] 05 Apr, 2014 [facility] [address] [id number] [address] [place] [address], [place] [address] 05 Apr, 2014 [facility] [address] [id number] [address] [place] [address], [place] [address] 18 Jan, 2014 [facility] [address] [id number] [address] [place] [phone] 18 Jan, 2014 [facility] [address] [id number] [address] [place] [phone] Jan, [facility] [address] [id number] [address] [place] [address] 15 Jan, 2014 [facility] [address] [id number] [address] [place] [phone] Dec, [facility] [address] [id number] [address] [place] [address], [place] [address] Dec, [facility] [address] [id number] [address] [place] [address], [place] [address] Nov, [facility] [address] [id number] [address] [place] [address], [place] [address] Nov, [facility] [address] [id number] [address] [place] [address], [place] [address] Oct, [facility] [address] [id number] [address] [place] [address], [place] [address] Oct, [facility] [address] [id number] [address] [place] [address], [place] [address] Oct, [facility] [address] [id number] [address] [place] [address], [place] [address] Oct, [facility] [address] [id number] [address] [place] [address], [place] [address] Sep, [facility] [address] [id number] [address] [place] [address], [place] [address] Sep, [facility] [address] [id number] [address] [place] [address], [place] [address] Sep, [facility] [address] [id number] [address] [place] [address], [place] [address] Sep, [facility] [address] [id number] [address] [place] [address], [place] [address] Sep, [facility] [address] [id number] [address] [place] [address], [place] [id number] Sep, [facility] [address] [id number] [address] [place] [address], [place] [id number] Sep, [facility] [address] [id number] [address] [place] [address], [place] [id number] Sep, [facility] [address] [id number] [address] [place] [address], [place] [address] Sep, [facility] [address] [id number] [address] [place] [address], [place] [address] Sep, [facility] [address] [id number] [address] [place] [address], [place] [id number] Sep, [facility] [address] [id number] [address] [place] [address], [place] [id number] Sep, [facility] [address] [id number] [address] [place] [address], [place] [address] Aug, [facility] [address] [id number] [address] [place] [address], [place] [address] Aug, [facility] [address] [id number] [address] [place] [address], [place] [id number] Aug, [facility] [address] [id number] [address] [place] [address], [place] [address] Aug, [facility] [address] [id number] [address] [place] [address], [place] [address] June, [facility] [address] [id number] [address] [place] [address], [place] [address] May, [facility] [address] [id number] [address] [place] [address], [place] [address] May, [facility] [address] [id number] [address] [place] [address], [place] [address] May, [facility] [address] [id number] [address] [place] [address], [place] [address] 18 May, 2013 [facility] [address] [id number] [address] [place] [address], [place] [address] May, [facility] [address] [id number] [address] [place] [address], [place] [address] May, [facility] [address] [id number] [address] [place] [address], [place] [address] 16 May, 2013 [facility] [address] [id number] [address] [place] [address], [place] [address] 16 May, 2013 [facility] [address] [id number] [address] [place] [address], [place] [address] 14 May, 2013 [facility] [address] [id number] [address] [place] [address], [place] [address] 14 May, 2013 [facility] [address] [id number] [address] [place] [address], [place] [address] 14 May, 2013 [facility] [address] [id number] [address] [place] [address], [place] [address] 14 May, 2013 [facility] [address] [id number] [address] [place] [address], [place] [address] Apr, [facility] [address] [id number] [address] [place] [address], [place] [address] Apr, [facility] [address] [id number] [address] [place] [address], [place] [address] Mar, [facility] [address] [id number] [address] [place] [address], [place] [address] Mar, [facility] [address] [id number] [address] [place] [address], [place] [address] Dec, [facility] [address] [id number] [address] [place] [address], [place] [address] Dec, [facility] [address] [id number] [address] [place] [address], [place] [address] Dec, [facility] [address] [id number] [address] [place] [address], [place] [address] Dec, [facility] [address] [id number] [address] [place] [address], [place] [address] Nov, [facility] [address] [id number] [address] [place] [address], [place] [address] Nov, [facility] [address] [id number] [address] [place] [address], [place] [address] 30 Oct, 2012 [facility] [address] [id number] [address] [place] [address], [place] [address] Oct, [facility] [address] [id number] [address] [place] [address], [place] [address] Aug, [facility] [address] [id number] [address] [place] [address], [place] [address] Aug, [facility] [address] [id number] [address] [place] [address], [place] [address] Aug, [facility] [address] [id number] [address] [place] [address], [place] [address] Jul, [facility] [address] [id number] [address] [place] [address], [place] [address] June, [facility] [address] [id number] [address] [place] [address], [place] [address] June, [facility] [address] [id number] [address] [place] [address], [place] [address] Apr, [facility] [address] [id number] [address] [place] [address], [place] [address] Mar, [facility] [address] [id number] [address] [place] [address], [place] [address] Mar, [facility] [address] [id number] [address] [place] [address], [place] [address] Mar, [facility] [address] [id number] [address] [place] [address], [place] [address] Mar, [facility] [address] [id number] [address] [place] [address], [place] [address] Mar, [facility] [address] [id number] [address] [place] [address], [place] [address] Feb, [facility] [address] [id number] [address] [place] [address], [place] [address] Feb, [facility] [address] [id number] [address] [place] [address], [place] [address] Feb, [facility] [address] [id number] [address] [place] [address], [place] [address] Feb, [facility] [address] [id number] [address] [place] [address], [place] [address] Jan, [facility] [address] [id number] [address] [place] [address], [place] [address] Jan, [facility] [address] [id number] [address] [place] [address], [place] [address] Dec, [facility] [address] [id number] [address] [place] [address], [place] [address] Dec, [facility] [address] [id number] [address] [place] [address], [place] [address] Dec, [facility] [address] [id number] [address] [place] [address], [place] [address] Dec, [facility] [address] [id number] [address] [place] [address], [place] [address] Oct, [facility] [address] [id number] [address] [place] [address], [place] [address] Aug, [facility] [address] [id number] [address] [place] [address], [place] [address] Jul, [facility] [address] [id number] [address] [place] [address], [place] [address] June, [facility] [address] [id number] [address] [place] [address], [place] [address] June, [facility] [address] [id number] [address] [place] [address], [place] [address] June, [facility] [address] [id number] [address] [place] [address], [place] [address] June, [facility] [address] [id number] [address] [place] [address], [place] [address] June, [facility] [address] [id number] [address] [place] [address], [place] [address] May, [facility] [address] [id number] [address] [place] [address], [place] [address] May, [facility] [address] [id number] [address] [place] [address], [place] [address] Apr, [facility] [address] [id number] [address] [place] [address], [place] [address] Apr, [facility] [address] [id number] [address] [place] [address], [place] [address] Mar, [facility] [address] [id number] [address] [place] [address], [place] [address] Feb, [facility] [address] [id number] [address] [place] [address], [place] [address] Nov, [facility] [address] [id number] [address] [place] [address] Nov, [facility] [address] [id number] [address] [place] [address], [place] [address] Nov, [facility] [address] [id number] [address] [place] [address] Apr, [facility] [address] [id number] [address] [place] [address] Jan, [facility] [address] [id number] [address] [place] [address] Dec, [facility] [address] [id number] [address] [place] [address], [place] [address] Dec, [facility] [address] [id number] [address] [place] [address], [place] [address] 29 Nov, 2009 [facility] [address] [id number] [address] [place] [address] June, [facility] [address] [id number] [address] [place] [address] 29 Jan, 2009 [facility] [address] [id number] [address] [place] [address], [place] [address] 28 Jan, 2009 [facility] [address] [id number] [address] [place] [address], [place] [address] 23 Jan, 2009 [facility] [address] [id number] [address] [place] [address], [place] [address] 22 Jan, 2009 [facility] [address] [id number] [address] [place] [address], [place] [address] 16 Jan, 2009 [facility] [address] [id number] [address] [place] [address], [place] [address] 15 Jan, 2009 [facility] [address] [id number] [address] [place] [address], [place] [address] 15 Jan, 2009 [facility] [address] [id number] [address] [place] [address], [place] [address] 11 Jan, 2009 [facility] [address] [id number] [address] [place] [address], [place] [address] 11 Jan, 2009 [facility] [address] [id number] [address] [place] [address], [place] [address] 10 Jan, 2009 [facility] [address] [id number] [address] [place] [address], [place] [address] 04 Jan, 2009 [facility] [address] [id number] [address] [place] [address], [place] [address] 02 Jan, 2009 [facility] [address] [id number] [address] [place] [address] 25 Dec, 2008 [facility] [address] [id number] [address] [place] [phone] 19 Dec, 2008 [facility] [address] [id number] [address] [place] [address], [place] [address] 17 Dec, 2008 [facility] [address] [id number] [address] [place] [address] 17 Dec, 2008 [facility] [address] [facility] [id number] [address] [place] [address] Nov, [facility] [address] [facility] [id number] [address] [place] [address] 10 Oct, 2008 IMMUNIZATIONS No Known Immunizations SOCIAL HISTORY Never Assessed REASON FOR VISIT PLAN OF CARE VITAL SIGNS Height 73 in 2014-02-11 Weight 291.21 lbs 2014-02-11 Temperature 97 degrees Fahrenheit 2014-02-11 Heart Rate 84 bpm 2014-02-11 Respiratory Rate 20 2014-02-11 Blood pressure systolic 126 mmHg 2014-02-11 Blood pressure diastolic 86 mmHg 2014-02-11 MEDICATIONS Unknown Medications RESULTS No Results PROCEDURES Procedure Date Ordered Result Body Site GLYCATED HEMOGLOBIN TEST Feb 11, 2014 COMPREHEN METABOLIC PANEL Feb 11, 2014 VENIPUNCT, ROUTINE* Feb 11, 2014 INSTRUCTIONS MEDICATIONS ADMINISTERED No Known Medications MEDICAL [...] knee pseudogout s tatus post joint fluid analysis-[facility] 09/20/16 Hospitalization History kidneys--[facility] 11/2017 Hospitalization History Diverticulitis--[facility] 06/2018
--- OUTSIDE RECORDS SUMMARY | 2019-07-04 10:16 | XMS REPORT ---
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 5 Active 242221755 Problem End stage kidney disease N18.6 Activ e 39820437 Problem Gout of left knee due to renal impairment, unspe cified chronicity M10.362 Active 702053713 Problem Type 2 diabetes mellitus with hyperglycemia E11.65 Active [id number] Problem Mood disorder F39 Active 649249 05 Problem Delayed gastric emptying K30 Activ e 539660074 Problem Kidney stone N20.0 Active 1303637 7 Problem Proteinuria R80.9 Active 47450655 Problem Sinusitis J32.9 Active 12921438 ALLERGIES No Information ENCOUNTERS Encounter Location Date Diagnosis [facility], [place] [address] [facility] [id number] [address] [place] [id number] Oct, [facility], [place] [address] [facility] [id number] [address] [place] [id number] Oct, [facility], [place] [address] [facility] [id number] [address] [place] [address] Jul, Type 2 diabetes mellitus wit h hyperglycemia E11.65 [facility], [place] [address] [facility] [id number] [address] [place] [address] Jul, Type 2 diabetes mellitus wit h hyperglycemia E11.65 [facility], [place] [address] [facility] [id number] [address] [place] [address] Jul, Type 2 diabetes mellitus wit h hyperglycemia E11.65 [facility], [place] [address] [facility] [id number] [address] [place] [address] June, Type 2 diabetes mellitus wit h hyperglycemia E11.65 ; End stage kidney disease N18.6 and Callus L84 [facility], [place] [address] [facility] [id number] [address] [place] [id number] May, [facility], [place] [address] [facility] [id number] [address] [place] [id number] May, Essential hypertension I10 [facility], [place] [address] [facility] [id number] [address] [place] [address] Apr, [facility], [place] [address] [facility] [id number] [address] [place] [id number] Apr, Type 2 diabetes mellitus wit h hyperglycemia E11.65 and Essential hypertension I10 [facility], [place] [address] [facility] [id number] [address] [place] [address] Apr, [facility], [place] [address] [facility] [id number] [address] [place] [address] Apr, Type 2 diabetes mellitus wit h hyperglycemia E11.65 [facility], [place] [address] [facility] [id number] [address] [place] [address] Apr, [facility], [place] [address] [facility] [id number] [address] [place] [address] Mar, Type 2 diabetes mellitus wit h hyperglycemia E11.65 [facility], [place] [address] [facility] [id number] [address] [place] [address] Mar, Type 2 diabetes mellitus wit h diabetic nephropathy E11.21 ; End stage kidney disease N18.6 ; Callus L84 and Onychomycosis B35.1 [facility], [place] [address] [place] [id number] [address] [place] [address] Feb, [facility] [address] [address] Feb, Sinusitis J32.9 ; Nausea R11 .0 and Otalgia H92.09 [place] [address] [address] Jan, [facility], [place] [address] [address] Jan, [place] [address] [address] Jan, Essential hypertension I10 ; Gout, unspecified M10.9 ; Coronary atherosclerosis of unspecified type of vessel, chalkyitsik or graft I25.10 ; Mixed hyperlipidemia E78.2 and Type 2 diabetes mellitus with hyperglycemia E11.65 [place] [address] [address] Dec, Chronic kidney disease, stag e 3 N18.3 ; Proteinuria R80.9 ; Diabetes mellitus E11.9 ; Acute kidney failure, unspecified N17.9 and Mixed hyperlipidemia E78.[address] [address] 16 Dec, 2017 Chronic kidney disease, stag e 3 N18.3 ; Essential hypertension I10 ; Proteinuria R80.9 ; Diabetes mellitus E11.9 ; Kidney stone N20.0 ; Acute kidney failure, unspecified N17.9 ; Edema R60.9 and Mixed hyperlipidemia E78.2 [place] [address] [address] Dec, Type 2 diabetes mellitus wit h hyperglycemia E11.65 [place] [address] [address] Dec, Chronic kidney disease, stag e 3 N18.3 [place] [address] [place] [address] Dec, Type 2 diabetes mellitus wit h hyperglycemia E11.65 [place] [address] [place] [id number] [place] [address] Dec, [facility], [place] [address] [place] [id number] [address] [place] [address] Nov, Type 2 diabetes mellitus wit h hyperglycemia E11.65 [place] [address] [place] [id number] [place] [address] Nov, [place] [address] [place] [id number] [place] [address] Nov, Chronic kidney disease, stag e V (very severe) N18.5 ; Type 2 diabetes mellitus with hyperglycemia E11.65 ; Encounter for immunization Z23 and Delayed gastric emptying K30 [place] [address] [place] [id number] [place] [address] Nov, [place] [address] [address] Oct, Essential hypertension I10 ; Coronary atherosclerosis of unspecified type of vessel, chalkyitsik or graft I25.10 ; Type 2 diabetes mellitus with hyperglycemia E11.65 and Gout, unspecified M10.9 [place] [address] [place] [id number] [place] [address] Oct, Chronic kidney disease, stag e V (very severe) N18.5 [place] [address] [place] [id number] [address] [place] [address] Oct, Mixed hyperlipidemia E78.2 [place] [address] [place] [id number] [address] [place] [address] Sep, Type 2 diabetes mellitus wit h hyperglycemia E11.65 [place] [address] [place] [id number] [address] [place] [address] Sep, Mixed hyperlipidemia E78.2 [place] [address] [place] [id number] [address] [place] [address] Sep, Chronic kidney disease, stag e V (very severe) N18.5 [place] [address] [address] Sep, Type 2 diabetes mellitus wit h hyperglycemia E11.65 and Essential hypertension I10 [place] [address] [address] Sep, Type 2 diabetes mellitus wit h hyperglycemia E11.65 [place] [address] [address] Aug, Gout, unspecified M10.9 ; Ga stroesophageal reflux disease, esophagitis presence not specified K21.9 ; Mood disorder F39 and Coronary atherosclerosis of unspecified type of vessel, chalkyitsik or graft I25.10 [place] [address] [address] Aug, [place] [address] [address] June, Type 2 diabetes mellitus wit h hyperglycemia E11.65 [place] [address] [address] May, Mood disorder F39 ; Gastroes ophageal reflux disease, esophagitis presence not specified K21.9 ; Gout, unspecified M10.9 ; Coronary atherosclerosis of unspecified type of vessel, chalkyitsik or graft I25.10 and Type 2 diabetes mellitus with hyperglycemia E11.65 [place] [address] [address] May, Type 2 diabetes mellitus wit h hyperglycemia E11.65 [place] [address] [place] [id number] [place] [address] Apr, Diabetes E11.9 and Mood diso rder F39 [place] [address] [place] [id number] [place] [address] 15 Mar, 2017 Primary osteoarthritis of le ft knee M17.12 and Tear of lateral meniscus of left knee, unspecified tear type, unspecified whether old or current tear, initial encounter S83.282A [facility], [place] [address] [id number] [address] [place] [address] Feb, Mood disorder F39 [facility], [place] [address] [id number] [address] [place] [address] Feb, Pseudogout M11.20 [facility], [place] [address] [facility] [id number] [address] [place] [address] Jan, Other group home (current) dr anna therapy Z79.899 [facility] [address] [id number] [address] [place] [address] Jan, [facility], [place] [address] [facility] [id number] [address] [place] [address] Jan, Pseudogout M11.20 ; Type 2 d iabetes mellitus with hyperglycemia E11.65 and Other buttermaker (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 [facility], [place] [address] [facility] [id number] [address] [place] [address] Jan, Gout of left knee due to eloisa al impairment, unspecified chronicity M10.362 ; Type 2 diabetes mellitus with diabetic nephropathy E11.21 ; Synovial cyst of popliteal space [Mejia], left knee M71.22 and Low back pain M54.5 [facility], [place] [address] [facility] [id number] [address] [place] [address] Dec, Pseudogout M11.20 [facility], [place] [address] [id number] [address] [place] [address] 14 Dec, 2016 [facility], [place] [address] [facility] [id number] [address] [place] [address] 13 Dec, 2016 Type 2 diabetes mellitus wit h diabetic nephropathy E11.21 and Right anterior knee pain M25.561 [facility], [place] [address] [id number] [address] [place] [address] Nov, Pseudogout M11.20 [facility], [place] [address] [facility] [id number] [address] [place] [address] Nov, Pseudogout M11.20 ; Chronic kidney disease, stage 3 N18.3 ; Mixed hyperlipidemia E78.2 ; Gout, unspecified M10.9 ; Coronary atherosclerosis of unspecified type of vessel, chalkyitsik or graft I25.10 ; Mood disorder F39 and Gastroesophageal reflux disease, esophagitis presence not specified K21.9 [facility], [place] [address] [place] [id number] [address] [place] [address] Nov, [facility], [place] [address] [place] [id number] [place] [address] Oct, Pseudogout M11.20 [facility], [place] [address] [place] [id number] [place] [address] Sep, Pseudogout M11.20 [facility], [place] [address] [place] [id number] [address] [place] [address] Sep, Pseudogout M11.20 [facility], [place] [address] [place] [id number] [place] [address] Sep, [facility] [address] [place] [id number] [place] [id number] Aug, [facility], [place] [address] [place] [id number] [place] [address] Aug, Diabetes E11.9 ; Chronic kid tahir disease, stage 3 N18.3 ; Hyperuricemia E79.0 ; Mixed hyperlipidemia E78.2 ; Gastroesophageal reflux disease, esophagitis presence not specified K21.9 ; Gout, unspecified M10.9 ; Coronary atherosclerosis of unspecified type of vessel, chalkyitsik or graft I25.10 and Mood disorder F39 [facility], [place] [address] [place] [id number] [address] [place] [id number] June, [facility], [place] [address] [place] [id number] [place] [address] June, [facility], [place] [address] [place] [id number] [address] [place] [address] June, [facility], [place] [address] [id number] [address] [place] [address] May, Chronic renal failure, stage 3 (moderate) N18.3 [facility], [place] [address] [id number] [address] [place] [address] May, Diabetes E11.9 [facility], [place] [address] [id number] [address] [place] [address] May, [facility], [place] [address] [id number] [address] [place] [address] Apr, [facility], [place] [address] [id number] [address] [place] [address] Apr, [facility], [place] [address] [id number] [address] [place] [address] Apr, Cellulitis of right lower ex tremity L03.115 and Diabetes E11.9 [facility], [place] [address] [id number] [address] [place] [address] Apr, Type 2 diabetes mellitus wit h hyperglycemia E11.65 [facility], [place] [address] [id number] [address] [place] [address] Mar, Cellulitis of right lower ex tremity L03.115 and Low back pain M54.5 [facility], [place] [address] [facility] [id number] [address] [place] [address] Mar, [facility], [place] [address] [id number] [address] [place] [address] Mar, Cellulitis of right lower ex tremity L03.115 [facility], [place] [address] [id number] [address] [place] [id number] Mar, Cellulitis of right lower ex tremity L03.115 [facility], [place] [address] [id number] [address] [place] [address] Feb, Cellulitis of right lower ex tremity L03.115 [facility], [place] [address] [id number] [address] [place] [address] Feb, Cellulitis of right lower ex tremity L03.115 [place] [address] [id number] [address] [place] [address] Feb, [facility], [place] [address] [id number] [address] [place] [address] Feb, Leukocytosis, unspecified ty pe D72.829 ; Chronic renal failure, stage 3 (moderate) N18.3 and Type 2 diabetes mellitus with hyperglycemia E11.65 [place] [address] [id number] [address] [place] [address] Feb, Leukocytosis, unspecified ty pe D72.829 [place] [address] [id number] [address] [place] [address] Feb, [place] [address] [id number] [address] [place] [address] Feb, Cellulitis of right lower ex tremity L03.115 ; Thrush B37.0 ; Gout of left knee due to renal impairment, unspecified chronicity M10.362 and Chronic renal failure, stage 3 (moderate) N18.3 [place] [address] [id number] [address] [place] [address] Feb, [place] [address] [facility] [id number] [address] [place] [address] Feb, Right foot infection L08.9 ; Type 2 diabetes mellitus with hyperglycemia E11.65 ; Arthralgia of left knee M25.562 ; Chronic kidney disease, stage 3 N18.3 and Diabetes E11.9 [place] [address] [id number] [address] [place] [address] Feb, [place] [address] [facility] [id number] [address] [place] [address] Feb, Diabetes E11.9 ; Arthralgia of left knee M25.562 and Thrush B37.0 [place] [address] [address] Jan, [place] [address] [address] Jan, Type 2 diabetes mellitus wit h hyperglycemia E11.65 ; Chronic renal failure, stage 3 (moderate) N18.3 and Leukocytosis, unspecified type D72.829 [place] [address] [address] Jan, Type 2 diabetes mellitus wit h hyperglycemia E11.65 [place] [address] [address] Dec, Gout of left knee due to eloisa al impairment, unspecified chronicity M10.362 [place] [address] [address] Dec, Gout of left knee due to eloisa al impairment, unspecified chronicity M10.362 and Diabetes E11.9 [place] [address] [address] Dec, [place] [address] [address] Dec, [facility] [address] [address] Dec, [place] [address] [address] Dec, Chronic kidney disease, stag e 3 N18.3 ; Type 2 diabetes mellitus with diabetic nephropathy E11.21 ; Type 2 diabetes mellitus with hyperglycemia E11.65 and skilled nursing 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 [facility] [address] [address] 05 Dec, 2015 Leukocytosis, unspecified ty pe D72.829 ; Chronic renal failure, stage 3 (moderate) N18.3 and Nausea R11.0 [place] [address] [address] Nov, [facility], [place] [address] [facility] [id number] [address] [place] [address] Jul, [facility], [place] [address] [facility] [id number] [address] [place] [id number] Jul, Diabetes E11.9 ; Low back pa in M54.5 and Other chronic pain G89.29 [facility], [place] [address] [facility] [id number] [address] [place] [address] June, [facility], [place] [address] [facility] [id number] [address] [place] [address] June, [facility], [place] [address] [facility] [id number] [address] [place] [address] Jan, Viral illness B34.9 [facility], [place] [address] [facility] [id number] [address] [place] [address] Jan, Type 2 diabetes mellitus wit h hyperglycemia E11.65 ; Pain in right foot M79.671 and Localized edema R60.0 [facility], [place] [address] [facility] [id number] [address] [place] [address] Jan, [facility], [place] [address] [facility] [id number] [address] [place] [address] Dec, Right foot pain M79.671 ; In somnia, unspecified type G47.00 and Diabetes E11.9 [facility], [place] [address] [facility] [id number] [address] [place] [address] Dec, Pain in right foot M79.671 [facility], [place] [address] [facility] [id number] [address] [place] [address] Nov, [facility], [place] [address] [facility] [id number] [address] [place] [address] Sep, [facility], [place] [address] [facility] [id number] [address] [place] [address] Sep, Diabetes mellitus, type II 2 50.00 [facility], [place] [address] [id number] [address] [place] [address] [place] [address] 14 May, 2014 [facility] [address] [id number] [address] [place] [address], [place] [address] 13 May, 2014 [facility] [address] [id number] [address] [place] [address], [place] [address] 19 Apr, 2014 [facility] [address] [id number] [address] [place] [address], [place] [address] 19 Apr, 2014 [facility] [address] [id number] [address] [place] [address], [place] [address] 16 Apr, 2014 [facility] [address] [id number] [address] [place] [address], [place] [address] 16 Apr, 2014 [facility] [address] [id number] [address] [place] [address], [place] [address] 12 Apr, 2014 [facility] [address] [id number] [address] [place] [address], [place] [address] 12 Apr, 2014 [facility] [address] [id number] [address] [place] [address], [place] [address] 05 Apr, 2014 [facility] [address] [id number] [address] [place] [address], [place] [address] 05 Apr, 2014 [facility] [address] [id number] [address] [place] [address], [place] [address] 18 Jan, 2014 [facility] [address] [id number] [address] [place] [address], [place] [address] 18 Jan, 2014 [facility] [address] [id number] [address] [place] [address], [place] [address] 15 Jan, 2014 [facility] [address] [id number] [address] [place] [address], [place] [address] 15 Jan, 2014 [facility] [address] [id number] [address] [place] [address], [place] [address] 10 Dec, 2013 [facility] [address] [id number] [address] [place] [address], [place] [address] 10 Dec, 2013 [facility] [address] [id number] [facility] [place] [address] Nov, [facility] [address] [id number] [address] [place] [address], [place] [address] Nov, [facility] [address] [id number] [address] [place] [address], [place] [address] Oct, [facility] [address] [id number] [address] [place] [address], [place] [address] Oct, [facility] [address] [id number] [address] [place] [address], [place] [address] Oct, [facility] [address] [id number] [address] [place] [address], [place] [id number] Oct, [facility] [address] [id number] [address] [place] [address], [place] [id number] Sep, [facility] [address] [id number] [address] [place] [address], [place] [id number] Sep, [facility] [address] [id number] [address] [place] [address], [place] [id number] Sep, [facility] [address] [id number] [address] [place] [address], [place] [id number] Sep, [facility] [address] [id number] [address] [place] [address], [place] [id number] Sep, [facility] [address] [id number] [address] [place] [address], [place] [id number] Sep, [facility] [address] [id number] [address] [place] [address], [place] [id number] Sep, [facility] [address] [id number] [address] [place] [address], [place] [id number] Sep, [facility] [address] [id number] [address] [place] [address], [place] [id number] Sep, [facility] [address] [id number] [address] [place] [address], [place] [id number] Sep, [facility] [address] [id number] [facility] [place] [id number] Sep, [facility] [address] [id number] [address] [place] [address], [place] [id number] Sep, [facility] [address] [id number] [address] [place] [address], [place] [id number] Aug, [facility] [address] [id number] [address] [place] [address], [place] [id number] Aug, [facility] [address] [id number] [address] [place] [address], [place] [id number] Aug, [facility] [address] [id number] [address] [place] [address], [place] [id number] Aug, [facility] [address] [id number] [address] [place] [address], [place] [id number] June, [facility] [address] [id number] [address] [place] [address], [place] [id number] May, [facility] [address] [id number] [address] [place] [address], [place] [id number] May, [facility] [address] [id number] [address] [place] [address], [place] [id number] May, [facility] [address] [id number] [address] [place] [address], [place] [id number] 18 May, 2013 [facility] [address] [id number] [address] [place] [address], [place] [address] May, [facility] [place] [facility] [address] [id number] [address] [place] [address], [place] [address] May, [facility] [place] [facility] [address] [id number] [address] [place] [address], [place] [id number] 16 May, 2013 [facility] [place] [facility] [address] [id number] [address] [place] [address], [place] [address] May, [facility] [place] [facility] [address] [id number] [address] [place] [id number] 14 May, 2013 [facility] [address] [id number] [address] [place] [address], [place] [id number] 14 May, 2013 [facility] [address] [id number] [address] [place] [address], [place] [id number] 14 May, 2013 [facility] [address] [id number] [address] [place] [address], [place] [id number] 14 May, 2013 [facility] [address] [id number] [address] [place] [address], [place] [id number] Apr, [facility] [address] [id number] [address] [place] [address], [place] [id number] Apr, [facility] [address] [id number] [address] [place] [address], [place] [id number] Mar, [facility] [address] [id number] [address] [place] [address], [place] [id number] Mar, [facility] [address] [id number] [address] [place] [address], [place] [id number] Dec, [facility] [address] [id number] [address] [place] [address], [place] [id number] Dec, [facility] [address] [id number] [address] [place] [address], [place] [id number] Dec, [facility] [address] [id number] [address] [place] [address], [place] [id number] Dec, [facility] [address] [id number] [address] [place] [address], [place] [id number] Nov, [facility] [address] [id number] [address] [place] [address], [place] [id number] Nov, [facility] [address] [id number] [address] [place] [address], [place] [id number] 30 Oct, 2012 [facility] [address] [id number] [address] [place] [address], [place] [id number] Oct, [facility] [address] [id number] [address] [place] [address], [place] [id number] Aug, [facility] [address] [id number] [address] [place] [address], [place] [id number] Aug, [facility] [address] [id number] [address] [place] [address], [place] [id number] Aug, [facility] [address] [id number] [address] [place] [address], [place] [id number] Jul, [facility] [address] [id number] [address] [place] [address], [place] [id number] June, [facility] [address] [id number] [address] [place] [address], [place] [id number] June, [facility] [address] [id number] [address] [place] [address], [place] [id number] Apr, [facility] [address] [id number] [address] [place] [address], [place] [id number] Mar, [facility] [address] [id number] [address] [place] [address], [place] [id number] Mar, [facility] [address] [id number] [address] [place] [address], [place] [id number] Mar, [facility] [address] [id number] [address] [place] [address], [place] [id number] Mar, [facility] [address] [id number] [address] [place] [address], [place] [id number] Mar, [facility] [address] [id number] [address] [place] [address], [place] [id number] Feb, [facility] [address] [id number] [address] [place] [address], [place] [id number] Feb, [facility] [address] [id number] [address] [place] [address], [place] [id number] Feb, [facility] [address] [id number] [address] [place] [address], [place] [id number] Feb, [facility] [address] [id number] [address] [place] [address], [place] [id number] Jan, [facility] [address] [id number] [address] [place] [address], [place] [id number] Jan, [facility] [address] [id number] [address] [place] [address], [place] [id number] Dec, [facility] [address] [id number] [address] [place] [address], [place] [id number] Dec, [facility] [address] [id number] [address] [place] [address], [place] [id number] Dec, [facility] [address] [id number] [address] [place] [address], [place] [id number] Dec, [facility] [address] [id number] [address] [place] [address], [place] [id number] Oct, [facility] [address] [id number] [address] [place] [address], [place] [id number] Aug, [facility] [address] [id number] [address] [place] [address], [place] [id number] Jul, [facility] [address] [id number] [address] [place] [address], [place] [id number] June, [facility] [address] [id number] [address] [place] [address], [place] [id number] June, [facility] [address] [id number] [address] [place] [address], [place] [address] June, [facility] [address] [id number] [address] [place] [address], [place] [id number] June, [facility] [address] [id number] [address] [place] [address], [place] [id number] June, [facility] [address] [id number] [address] [place] [address], [place] [id number] May, [facility] [address] [id number] [address] [place] [address], [place] [id number] May, [facility] [address] [id number] [address] [place] [address], [place] [id number] 15 Apr, 2011 [facility] [address] [id number] [address] [place] [address], [place] [id number] 13 Apr, 2011 [facility] [address] [id number] [address] [place] [address], [place] [id number] Mar, [facility] [address] [id number] [address] [place] [address], [place] [address] Feb, [facility] [address] [id number] [address] [place] [address], [place] [address] Nov, [facility] [address] [id number] [address] [place] [address], [place] [id number] 13 Nov, 2010 [facility] [address] [id number] [address] [place] [address], [place] [address] Nov, [facility] [address] [id number] [address] [place] [address], [place] [id number] Apr, [facility] [address] [id number] [address] [place] [address], [place] [id number] Jan, [facility] [address] [id number] [address] [place] [address], [place] [id number] Dec, [facility] [address] [id number] [address] [place] [id number] Dec, [facility] [address] [id number] [address] [place] [address], [place] [id number] Nov, [facility] [address] [id number] [address] [place] [address], [place] [id number] June, [facility] [address] [id number] [address] [place] [address], [place] [id number] Jan, [facility] [address] [id number] [address] [place] [id number] 28 Jan, 2009 [facility] [address] [id number] [address] [place] [address], [place] [id number] 23 Jan, 2009 [facility] [address] [id number] [address] [place] [id number] 22 Jan, 2009 [facility] [address] [id number] [address] [place] [id number] 16 Jan, 2009 [facility] [address] [id number] [address] [place] [id number] 15 Jan, 2009 [facility] [address] [id number] [address] [place] [address], [place] [id number] 15 Jan, 2009 [facility] [address] [id number] [address] [place] [id number] 11 Jan, 2009 [facility] [address] [id number] [address] [place] [id number] 11 Jan, 2009 [facility] [address] [id number] [address] [place] [id number] 10 Jan, 2009 [facility] [address] [id number] [address] [place] [id number] 04 Jan, 2009 [facility] [address] [id number] [address] [place] [id number] 02 Jan, 2009 [facility] [address] [id number] [address] [place] [id number] 25 Dec, 2008 [facility] [address] [id number] [address] [place] [id number] 19 Dec, 2008 [facility] [address] [id number] [address] [place] [id number] 17 Dec, 2008 [facility] [address] [id number] [address] [place] [id number] 17 Dec, 2008 [facility] [address] [id number] [address] [place] [id number] 20 Nov, 2008 [facility] [place] [address] [id number] [address] [place] [address] 10 Oct, 2008 IMMUNIZATIONS No Known Immunizations SOCIAL HISTORY Never Assessed REASON FOR VISIT PLAN OF CARE VITAL SIGNS Height 73 in 2013-11-23 Weight 281.7 lbs 2013-11-23 Temperature 97.3 degrees Fahrenheit 2013-11-23 Heart Rate 84 bpm 2013-11-23 Respiratory Rate 22 2013-11-23 Blood pressure systolic 118 mmHg 2013-11-23 Blood pressure diastolic 84 mmHg 2013-11-23 MEDICATIONS Unknown Medications RESULTS No Results PROCEDURES Procedure Date Ordered Result Body Site DRAIN/INJECT, JOINT/BURSA Nov 23, 2013 INSTRUCTIONS MEDICATIONS ADMINISTERED No Known Medications [...]
--- OUTSIDE RECORDS SUMMARY | 2019-07-04 10:16 | XMS REPORT ---
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 5 Active 090386619 Problem End stage kidney disease N18.6 Activ e 26734158 Problem Gout of left knee due to renal impairment, unspe cified chronicity M10.362 Active 895392030 Problem Type 2 diabetes mellitus with hyperglycemia E11.65 Active [id number] Problem Mood disorder F39 Active 203615 05 Problem Delayed gastric emptying K30 Activ e 116214426 Problem Kidney stone N20.0 Active 2290754 7 Problem Proteinuria R80.9 Active 77635041 Problem Sinusitis J32.9 Active 44318229 ALLERGIES No Information ENCOUNTERS Encounter Location Date Diagnosis [facility] [address] [facility] [id number] [address] [place] [address] Oct, [facility] [address] [facility] [id number] [address] [place] [address] Jul, Type 2 diabetes mellitus wit h hyperglycemia E11.65 [facility] [address] [facility] [id number] [address] [place] [address] Jul, Type 2 diabetes mellitus wit h hyperglycemia E11.65 [facility] [address] [facility] [id number] [address] [place] [address] Jul, Type 2 diabetes mellitus wit h hyperglycemia E11.65 [facility] [address] [facility] [id number] [address] [place] [address] June, Type 2 diabetes mellitus wit h hyperglycemia E11.65 ; End stage kidney disease N18.6 and Callus L84 [facility] [address] [facility] [id number] [address] [place] [address] May, [facility] [address] [facility] [id number] [address] [place] [address] May, Essential hypertension I10 [facility] [address] [facility] [id number] [address] [place] [address] Apr, [facility] [address] [facility] [id number] [address] [place] [address] Apr, Type 2 diabetes mellitus wit h hyperglycemia E11.65 and Essential hypertension I10 [facility] [address] [facility] [id number] [address] [place] [address] Apr, [facility] [address] [facility] [id number] [address] [place] [address] Apr, Type 2 diabetes mellitus wit h hyperglycemia E11.65 [facility] [address] [facility] [id number] [address] [place] [address] Apr, [facility] [address] [facility] [id number] [address] [place] [address] Mar, Type 2 diabetes mellitus wit h hyperglycemia E11.65 [facility] [address] [facility] [id number] [address] [place] [address] Mar, Type 2 diabetes mellitus wit h diabetic nephropathy E11.21 ; End stage kidney disease N18.6 ; Callus L84 and Onychomycosis B35.1 [facility] [address] [facility] [id number] [address] [place] [address] Feb, [facility] [address] [place] [id number] [address] [place] [address] Feb, Sinusitis J32.9 ; Nausea R11 .0 and Otalgia H92.09 [facility] [address] [address] Jan, [place] [address] [address] Jan, [place] [address] [address] Jan, Essential hypertension I10 ; Gout, unspecified M10.9 ; Coronary atherosclerosis of unspecified type of vessel, [place] or graft I25.10 ; Mixed hyperlipidemia E78.2 and Type 2 diabetes mellitus with hyperglycemia E11.65 [place] [address] [address] Dec, Chronic kidney disease, stag e 3 N18.3 ; Proteinuria R80.9 ; Diabetes mellitus E11.9 ; Acute kidney failure, unspecified N17.9 and Mixed hyperlipidemia E78.2 [place] [address] [address] 16 Dec, 2017 Chronic kidney disease, stag e 3 N18.3 ; Essential hypertension I10 ; Proteinuria R80.9 ; Diabetes mellitus E11.9 ; Kidney stone N20.0 ; Acute kidney failure, unspecified N17.9 ; Edema R60.9 and Mixed hyperlipidemia E78.2 [place] [address] [place] [id number] [address] [place] [address] 14 Dec, 2017 Type 2 diabetes mellitus wit h hyperglycemia E11.[address] [address] 14 Dec, 2017 Chronic kidney disease, stag e 3 N18.3 [place] [address] [address] 06 Dec, 2017 Type 2 diabetes mellitus wit h hyperglycemia E11.65 [place] [address] [place] [id number] [address] [place] [address] Dec, [place] [address] [address] Nov, Type 2 diabetes mellitus wit h hyperglycemia E11.65 [place] [address] [place] [id number] [place] [address] Nov, [place] [address] [address] Nov, Chronic kidney disease, stag e V (very severe) N18.5 ; Type 2 diabetes mellitus with hyperglycemia E11.65 ; Encounter for immunization Z23 and Delayed gastric emptying K30 [place] [address] [place] [id number] [place] [address] Nov, [place] [address] [address] Oct, Essential hypertension I10 ; Coronary atherosclerosis of unspecified type of vessel, [place] or graft I25.10 ; Type 2 diabetes mellitus with hyperglycemia E11.65 and Gout, unspecified M10.9 [place] [address] [address] 07 Oct, 2017 Chronic kidney disease, stag e V (very severe) N18.5 [place] [address] [address] Oct, Mixed hyperlipidemia E78.2 [place] [address] [place] [id number] [place] [address] Sep, Type 2 diabetes mellitus wit h hyperglycemia E11.65 [place] [address] [address] Sep, Mixed hyperlipidemia E78.2 [place] [address] [place] [id number] [place] [address] Sep, Chronic kidney disease, stag e V (very severe) N18.5 [place] [address] [address] 15 Sep, 2017 Type 2 diabetes mellitus wit h hyperglycemia E11.65 and Essential hypertension I10 [place] [address] [address] Sep, Type 2 diabetes mellitus wit h hyperglycemia E11.65 [place] [address] [address] 16 Aug, 2017 Gout, unspecified M10.9 ; Ga stroesophageal reflux disease, esophagitis presence not specified K21.9 ; Mood disorder F39 and Coronary atherosclerosis of unspecified type of vessel, [place] or graft I25.10 [place] [address] [address] Aug, [place] [address] [address] June, Type 2 diabetes mellitus wit h hyperglycemia E11.65 [place] [address] [address] May, Mood disorder F39 ; Gastroes ophageal reflux disease, esophagitis presence not specified K21.9 ; Gout, unspecified M10.9 ; Coronary atherosclerosis of unspecified type of vessel, [place] or graft I25.10 and Type 2 diabetes mellitus with hyperglycemia E11.65 [place] [address] [address] May, Type 2 diabetes mellitus wit h hyperglycemia E11.65 [place] [address] [address] Apr, Diabetes E11.9 and Mood diso rder F39 [place] [address] [address] 15 Mar, 2017 Primary osteoarthritis of le ft knee M17.12 and Tear of lateral meniscus of left knee, unspecified tear type, unspecified whether old or current tear, initial encounter S83.282A [place] [address] [address] Feb, Mood disorder F39 [facility] [address] [facility] [id number] [address] [place] [address] Feb, Pseudogout M11.20 [facility] [address] [facility] [id number] [address] [place] [address] Jan, 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 [facility] [address] [id number] [address] [place] [address] Jan, [facility] [address] [facility] [id number] [address] [place] [address] Jan, Pseudogout M11.20 ; Type 2 d iabetes mellitus with hyperglycemia E11.65 and 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 (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 [facility] [address] [facility] [id number] [address] [place] [address] Jan, Gout of left knee due to eloisa al impairment, unspecified chronicity M10.362 ; Type 2 diabetes mellitus with diabetic nephropathy E11.21 ; Synovial cyst of popliteal space [Mejia], left knee M71.22 and Low back pain M54.5 [place] [address] [facility] [id number] [address] [place] [address] Dec, Pseudogout M11.20 [place] [address] [facility] [id number] [address] [place] [address] Dec, [place] [address] [facility] [id number] [address] [place] [address] 13 Dec, 2016 Type 2 diabetes mellitus wit h diabetic nephropathy E11.21 and Right anterior knee pain M25.561 [place] [address] [facility] [id number] [address] [place] [address] Nov, Pseudogout M11.20 [facility] [address] [facility] [id number] [address] [place] [address] Nov, Pseudogout M11.20 ; Chronic kidney disease, stage 3 N18.3 ; Mixed hyperlipidemia E78.2 ; Gout, unspecified M10.9 ; Coronary atherosclerosis of unspecified type of vessel, [place] or graft I25.10 ; Mood disorder F39 and Gastroesophageal reflux disease, esophagitis presence not specified K21.9 [facility] [address] [facility] [id number] [address] [place] [address] Nov, [facility] [address] [facility] [id number] [address] [place] [address] Oct, Pseudogout M11.20 [facility] [address] [place] [id number] [address] [place] [address] Sep, Pseudogout M11.20 [facility] [address] [place] [id number] [address] [place] [address] Sep, Pseudogout M11.20 [facility] [address] [place] [id number] [address] [place] [address] Sep, [facility] [address] [place] [id number] [place] [id number] Aug, [facility] [address] [place] [id number] [address] [place] [address] Aug, Diabetes E11.9 ; Chronic kid tahir disease, stage 3 N18.3 ; Hyperuricemia E79.0 ; Mixed hyperlipidemia E78.2 ; Gastroesophageal reflux disease, esophagitis presence not specified K21.9 ; Gout, unspecified M10.9 ; Coronary atherosclerosis of unspecified type of vessel, [place] or graft I25.10 and Mood disorder F39 [facility] [address] [facility] [id number] [address] [place] [address] June, [facility] [address] [place] [id number] [address] [place] [address] June, [facility] [address] [facility] [id number] [address] [place] [address] June, [facility] [address] [facility] [id number] [address] [place] [address] May, Chronic renal failure, stage 3 (moderate) N18.3 [facility] [address] [id number] [address] [place] [address] May, Diabetes E11.9 [facility] [address] [id number] [address] [place] [address] May, [facility] [address] [id number] [address] [place] [address] Apr, [facility] [address] [id number] [address] [place] [address] Apr, [facility] [address] [id number] [address] [place] [address] Apr, Cellulitis of right lower ex tremity L03.115 and Diabetes E11.9 [facility] [address] [facility] [id number] [address] [place] [address] Apr, Type 2 diabetes mellitus wit h hyperglycemia E11.65 [facility] [address] [facility] [id number] [address] [place] [address] Mar, Cellulitis of right lower ex tremity L03.115 and Low back pain M54.5 [place] [address] [facility] [id number] [address] [place] [address] Mar, [facility] [address] [facility] [id number] [address] [place] [address] Mar, Cellulitis of right lower ex tremity L03.115 [facility] [address] [facility] [id number] [address] [place] [address] Mar, Cellulitis of right lower ex tremity L03.115 [facility] [address] [facility] [id number] [address] [place] [address] Feb, Cellulitis of right lower ex tremity L03.115 [facility] [address] [facility] [id number] [address] [place] [address] Feb, Cellulitis of right lower ex tremity L03.115 [place] [address] [id number] [address] [place] [address] Feb, [facility] [address] [id number] [address] [place] [address] Feb, Leukocytosis, unspecified ty pe D72.829 ; Chronic renal failure, stage 3 (moderate) N18.3 and Type 2 diabetes mellitus with hyperglycemia E11.65 [place] [address] [id number] [address] [place] [address] Feb, Leukocytosis, unspecified ty pe D72.829 [place] [address] [id number] [address] [place] [address] Feb, [place] [address] [id number] [address] [place] [address] Feb, Cellulitis of right lower ex tremity L03.115 ; Thrush B37.0 ; Gout of left knee due to renal impairment, unspecified chronicity M10.362 and Chronic renal failure, stage 3 (moderate) N18.3 [place] [address] [id number] [address] [place] [address] Feb, [place] [address] [id number] [address] [place] [address] Feb, Right foot infection L08.9 ; Type 2 diabetes mellitus with hyperglycemia E11.65 ; Arthralgia of left knee M25.562 ; Chronic kidney disease, stage 3 N18.3 and Diabetes E11.9 [place] [address] [id number] [address] [place] [address] Feb, [place] [address] [id number] [address] [place] [address] Feb, Diabetes E11.9 ; Arthralgia of left knee M25.562 and Thrush B37.0 [place] [address] [id number] [address] [place] [address] Jan, [place] [address] [place] [id number] [place] [address] 08 Jan, 2016 Type 2 diabetes mellitus wit h hyperglycemia E11.65 ; Chronic renal failure, stage 3 (moderate) N18.3 and Leukocytosis, unspecified type D72.829 [facility] [address] [address] Jan, Type 2 diabetes mellitus wit h hyperglycemia E11.65 [place] [address] [address] Dec, Gout of left knee due to eloisa al impairment, unspecified chronicity M10.362 [place] [address] [address] Dec, Gout of left knee due to eloisa al impairment, unspecified chronicity M10.362 and Diabetes E11.9 [place] [address] [address] Dec, [place] [address] [address] Dec, [facility] [address] [address] Dec, [place] [address] [address] Dec, Chronic kidney disease, stag e 3 N18.3 ; Type 2 diabetes mellitus with diabetic nephropathy E11.21 ; Type 2 diabetes mellitus with hyperglycemia E11.65 and 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 [facility] [address] [address] Dec, Leukocytosis, unspecified ty pe D72.829 ; Chronic renal failure, stage 3 (moderate) N18.3 and Nausea R11.0 [facility] [address] [address] Nov, [place] [address] [address] Jul, [facility] [address] [facility] [id number] [address] [place] [address] Jul, Diabetes E11.9 ; Low back pa in M54.5 and Other chronic pain G89.29 [facility] [address] [id number] [address] [place] [address] June, [facility] [address] [facility] [id number] [address] [place] [address] June, [facility] [address] [id number] [address] [place] [address] Jan, Viral illness B34.9 [facility] [address] [facility] [id number] [address] [place] [address] Jan, Type 2 diabetes mellitus wit h hyperglycemia E11.65 ; Pain in right foot M79.671 and Localized edema R60.0 [facility] [address] [facility] [id number] [address] [place] [address] Jan, [facility] [address] [facility] [id number] [address] [place] [address] Dec, Right foot pain M79.671 ; In somnia, unspecified type G47.00 and Diabetes E11.9 [facility] [address] [facility] [id number] [address] [place] [address] Dec, Pain in right foot M79.671 [facility] [address] [id number] [address] [place] [address] Nov, [facility] [address] [facility] [id number] [address] [place] [address] Sep, [facility] [address] [facility] [id number] [address] [place] [address] Sep, Diabetes mellitus, type II 2 50.00 [facility] [address] [facility] [id number] [address] [place] [address] May, [facility] [address] [id number] [address] [place] [address] [place] [address] 13 May, 2014 [facility] [address] [id number] [address] [place] [address], [place] [address] 19 Apr, 2014 [facility] [address] [id number] [address] [place] [address], [place] [address] 19 Apr, 2014 [facility] [address] [id number] [address] [place] [address], [place] [address] 16 Apr, 2014 [facility] [address] [id number] [address] [place] [address], [place] [address] 16 Apr, 2014 [facility] [address] [id number] [address] [place] [address], [place] [address] 12 Apr, 2014 [facility] [address] [id number] [address] [place] [address], [place] [address] 12 Apr, 2014 [facility] [address] [id number] [address] [place] [address], [place] [address] 05 Apr, 2014 [facility] [address] [id number] [address] [place] [address], [place] [address] 05 Apr, 2014 [facility] [address] [id number] [address] [place] [address], [place] [address] 18 Jan, 2014 [facility] [address] [id number] [address] [place] [address], [place] [address] 18 Jan, 2014 [facility] [address] [id number] [address] [place] [address], [place] [address] 15 Jan, 2014 [facility] [address] [id number] [address] [place] [address], [place] [address] 15 Jan, 2014 [facility] [address] [id number] [address] [place] [address], [place] [address] 10 Dec, 2013 [facility] [address] [id number] [address] [place] [address], [place] [address] 10 Dec, 2013 [facility] [address] [id number] [address] [place] [address], [place] [address] 13 Nov, 2013 [facility] [address] [id number] [facility] [place] [address] 13 Nov, 2013 [facility] [address] [id number] [facility] [place] [address] Oct, [facility] [address] [id number] [address] [place] [address], [place] [address] Oct, 2013 [facility] [address] [id number] [address] [place] [address], [place] [address] 05 Oct, 2013 [facility] [address] [id number] [address] [place] [address], [place] [address] 05 Oct, 2013 [facility] [address] [id number] [address] [place] [address], [place] [address] Sep, [facility] [address] [id number] [address] [place] [address], [place] [address] Sep, [facility] [address] [id number] [address] [place] [address], [place] [address] Sep, [facility] [address] [id number] [address] [place] [address], [place] [address] Sep, [facility] [address] [id number] [address] [place] [address], [place] [address] Sep, [facility] [address] [id number] [address] [place] [address], [place] [address] Sep, [facility] [address] [id number] [address] [place] [address], [place] [address] Sep, [facility] [address] [id number] [address] [place] [address], [place] [address] Sep, [facility] [address] [id number] [address] [place] [address], [place] [address] Sep, [facility] [address] [id number] [address] [place] [address], [place] [address] Sep, [facility] [address] [id number] [address] [place] [address], [place] [address] Sep, [facility] [address] [id number] [address] [place] [address] Sep, [facility] [address] [id number] [address] [place] [address], [place] [address] Aug, [facility] [address] [id number] [address] [place] [address], [place] [address] Aug, [facility] [address] [id number] [address] [place] [address], [place] [address] Aug, [facility] [address] [id number] [address] [place] [address], [place] [address] Aug, [facility] [address] [id number] [address] [place] [address], [place] [address] June, [facility] [address] [id number] [address] [place] [address], [place] [address] May, [facility] [address] [id number] [address] [place] [address], [place] [address] 24 May, 2013 [facility] [address] [id number] [address] [place] [address], [place] [address] May, [facility] [address] [id number] [address] [place] [address], [place] [address] 18 May, 2013 [facility] [address] [id number] [address] [place] [address], [place] [address] 17 May, 2013 [facility] [address] [id number] [address] [place] [address], [place] [address] 17 May, 2013 [facility] [address] [id number] [address] [place] [address], [place] [address] 16 May, 2013 [facility] [address] [id number] [address] [place] [address], [place] [address] 16 May, 2013 [facility] [address] [id number] [address] [place] [address], [place] [address] May, [facility] [address] [id number] [address] [place] [address] 14 May, 2013 [facility] [address] [id number] [address] [place] [address], [place] [address] 14 May, 2013 [facility] [address] [id number] [address] [place] [address], [place] [address] 14 May, 2013 [facility] [address] [id number] [address] [place] [address], [place] [address] Apr, [facility] [address] [id number] [address] [place] [address], [place] [address] Apr, [facility] [address] [id number] [address] [place] [address], [place] [address] Mar, [facility] [address] [id number] [address] [place] [address], [place] [address] Mar, [facility] [address] [id number] [address] [place] [address], [place] [address] Dec, [facility] [address] [id number] [address] [place] [address], [place] [address] Dec, [facility] [address] [id number] [address] [place] [address], [place] [address] Dec, [facility] [address] [id number] [address] [place] [address], [place] [address] Dec, [facility] [address] [id number] [address] [place] [address], [place] [address] Nov, [facility] [address] [id number] [address] [place] [address], [place] [address] Nov, [facility] [address] [id number] [address] [place] [address], [place] [address] 30 Oct, 2012 [facility] [place] [facility] [address] [id number] [address] [place] [address], [place] [address] 27 Oct, 2012 [facility] [address] [id number] [address] [place] [address], [place] [address] Aug, [facility] [address] [id number] [address] [place] [address], [place] [address] Aug, [facility] [address] [id number] [address] [place] [address], [place] [address] Aug, [facility] [address] [id number] [address] [place] [address], [place] [address] Jul, [facility] [address] [id number] [address] [place] [address], [place] [address] June, [facility] [address] [id number] [address] [place] [address], [place] [address] June, [facility] [address] [id number] [address] [place] [address], [place] [address] Apr, [facility] [address] [id number] [address] [place] [address], [place] [address] Mar, [facility] [address] [id number] [address] [place] [address], [place] [address] Mar, [facility] [address] [id number] [address] [place] [address], [place] [address] Mar, [facility] [address] [id number] [address] [place] [address], [place] [address] Mar, [facility] [address] [id number] [address] [place] [address], [place] [address] Mar, [facility] [address] [id number] [address] [place] [address], [place] [address] Feb, [facility] [address] [id number] [address] [place] [address], [place] [address] Feb, [facility] [address] [id number] [address] [place] [address], [place] [address] Feb, [facility] [address] [id number] [address] [place] [address], [place] [address] Feb, [facility] [address] [id number] [address] [place] [address], [place] [address] Jan, [facility] [address] [id number] [address] [place] [address], [place] [address] Jan, [facility] [address] [id number] [address] [place] [address], [place] [address] Dec, [facility] [address] [id number] [address] [place] [address], [place] [address] Dec, [facility] [address] [id number] [address] [place] [address], [place] [address] Dec, [facility] [address] [id number] [address] [place] [address], [place] [address] Dec, [facility] [address] [id number] [address] [place] [address], [place] [address] Oct, [facility] [address] [id number] [address] [place] [address], [place] [address] Aug, [facility] [address] [id number] [address] [place] [address], [place] [address] Jul, [facility] [address] [id number] [address] [place] [address], [place] [address] June, [facility] [address] [id number] [address] [place] [address], [place] [address] June, [facility] [address] [id number] [address] [place] [address], [place] [address] June, [facility] [address] [id number] [address] [place] [address], [place] [address] June, [facility] [address] [id number] [address] [place] [address], [place] [address] June, [facility] [address] [id number] [address] [place] [address], [place] [address] May, [facility] [address] [id number] [address] [place] [address], [place] [address] May, [facility] [address] [id number] [address] [place] [address], [place] [address] 15 Apr, 2011 [facility] [address] [id number] [address] [place] [address], [place] [address] 13 Apr, 2011 [facility] [address] [id number] [address] [place] [address], [place] [address] Mar, [facility] [address] [id number] [address] [place] [address], [place] [address] Feb, [facility] [address] [id number] [address] [place] [address], [place] [address] Nov, [facility] [address] [id number] [address] [place] [address], [place] [address] Nov, [facility] [address] [id number] [address] [place] [address], [place] [address] Nov, [facility] [address] [id number] [address] [place] [address], [place] [address] Apr, [facility] [address] [id number] [address] [place] [address], [place] [address] Jan, [facility] [address] [id number] [address] [place] [address], [place] [address] Dec, [facility] [address] [id number] [address] [place] [address], [place] [address] Dec, [facility] [address] [id number] [address] [place] [address], [place] [address] 29 Nov, 2009 [facility] [address] [id number] [address] [place] [address], [place] [address] June, [facility] [address] [id number] [address] [place] [address], [place] [address] 29 Jan, 2009 [facility] [address] [id number] [address] [place] [address], [place] [address] Jan, [facility] [address] [id number] [address] [place] [address] 23 Jan, 2009 [facility] [address] [id number] [address] [place] [address] 22 Jan, 2009 [facility] [address] [id number] [address] [place] [address] 16 Jan, 2009 [facility] [address] [id number] [address] [place] [address] 15 Jan, 2009 [facility] [address] [id number] [address] [place] [address] 15 Jan, 2009 [facility] [address] [id number] [address] [place] [address] 11 Jan, 2009 [facility] [address] [id number] [address] [place] [address] 11 Jan, 2009 [facility] [address] [id number] [address] [place] [address] 10 Jan, 2009 [facility] [address] [id number] [address] [place] [address] 04 Jan, 2009 [facility] [address] [id number] [address] [place] [address] 02 Jan, 2009 [facility] [address] [id number] [address] [place] [address] 25 Dec, 2008 [facility] [address] [id number] [address] [place] [address] Dec, [facility] [address] [id number] [address] [place] [address] 17 Dec, 2008 [facility] [address] [id number] [address] [place] [address] 17 Dec, 2008 [facility] [address] [id number] [address] [place] [id number] 20 Nov, 2008 [facility] [address] [id number] [address] [place] [address] 10 Oct, 2008 IMMUNIZATIONS No Known Immunizations [...] Medical History 11/2017 Nuclear stress test Aston W [facility] Medical History 11/2017 Swallow study Severe gastropar [...] knee pseudogout s tatus post joint fluid analysis-[facility] 09/20/16 Hospitalization History kidneys--[facility] 11/2017 Hospitalization History Diverticulitis--[facility] 06/2018
--- OUTSIDE RECORDS SUMMARY | 2019-07-04 10:16 | XMS REPORT ---
Author Author Charles Perez Doctor Organization 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 5 Active 178081929 Problem End stage kidney disease N18.6 Activ e 14366952 Problem Gout of left knee due to renal impairment, unspe cified chronicity M10.362 Active 545977869 Problem Type 2 diabetes mellitus with hyperglycemia E11.65 Active 563097571352631 Problem Mood disorder F39 Active 943191 05 Problem Delayed gastric emptying K30 Activ e 406378560 Problem Kidney stone N20.0 Active 6198627 7 Problem Proteinuria R80.9 Active 31316767 Problem Sinusitis J32.9 Active 00374948 ALLERGIES No Information ENCOUNTERS Encounter Location Date Diagnosis [facility] [address] [facility] [id number] [address] [place] [address] Oct, [facility] [address] [facility] [id number] [address] [place] [phone] Jul, Type 2 diabetes mellitus wit h hyperglycemia E11.65 [facility] [address] [facility] [id number] [address] [place] [address] Jul, Type 2 diabetes mellitus wit h hyperglycemia E11.65 [facility] [address] [facility] [id number] [address] [place] [address] Jul, Type 2 diabetes mellitus wit h hyperglycemia E11.65 [facility] [address] [facility] [id number] [address] [place] [address] June, Type 2 diabetes mellitus wit h hyperglycemia E11.65 ; End stage kidney disease N18.6 and Callus L84 [facility] [address] [facility] [id number] [address] [place] [address] May, [facility] [address] [facility] [id number] [address] [place] [phone] May, Essential hypertension I10 [facility] [address] [facility] [id number] [address] [place] [address] Apr, [facility] [address] [facility] [id number] [address] [place] [address] Apr, Type 2 diabetes mellitus wit h hyperglycemia E11.65 and Essential hypertension I10 [facility] [address] [facility] [id number] [address] [place] [address] Apr, [facility] [address] [facility] [id number] [address] [place] [address] Apr, Type 2 diabetes mellitus wit h hyperglycemia E11.65 [facility] [address] [facility] [id number] [address] [place] [address] Apr, [facility] [address] [facility] [id number] [address] [place] [address] Mar, Type 2 diabetes mellitus wit h hyperglycemia E11.65 [facility] [address] [facility] [id number] [address] [place] [address] Mar, Type 2 diabetes mellitus wit h diabetic nephropathy E11.21 ; End stage kidney disease N18.6 ; Callus L84 and Onychomycosis B35.1 [facility] [address] [facility] [id number] [address] [place] [phone] Feb, [facility] [address] [place] [id number] [address] [place] [address] Feb, Sinusitis J32.9 ; Nausea R11 .0 and Otalgia H92.09 [facility] [address] [address] Jan, [place] [address] [address] Jan, [place] [address] [address] Jan, Essential hypertension I10 ; Gout, unspecified M10.9 ; Coronary atherosclerosis of unspecified type of vessel, [place] or graft I25.10 ; Mixed hyperlipidemia E78.2 and Type 2 diabetes mellitus with hyperglycemia E11.65 [place] [address] [address] Dec, Chronic kidney disease, stag e 3 N18.3 ; Proteinuria R80.9 ; Diabetes mellitus E11.9 ; Acute kidney failure, unspecified N17.9 and Mixed hyperlipidemia E78.2 [place] [address] [address] 16 Dec, 2017 Chronic kidney disease, stag e 3 N18.3 ; Essential hypertension I10 ; Proteinuria R80.9 ; Diabetes mellitus E11.9 ; Kidney stone N20.0 ; Acute kidney failure, unspecified N17.9 ; Edema R60.9 and Mixed hyperlipidemia E78.2 [place] [address] [place] [id number] [address] [place] [address] 14 Dec, 2017 Type 2 diabetes mellitus wit h hyperglycemia E11.[address] [address] 14 Dec, 2017 Chronic kidney disease, stag e 3 N18.3 [place] [address] [address] 06 Dec, 2017 Type 2 diabetes mellitus wit h hyperglycemia E11.65 [place] [address] [place] [id number] [address] [place] [address] Dec, [place] [address] [address] Nov, Type 2 diabetes mellitus wit h hyperglycemia E11.65 [place] [address] [place] [id number] [place] [address] Nov, [place] [address] [address] Nov, Chronic kidney disease, stag e V (very severe) N18.5 ; Type 2 diabetes mellitus with hyperglycemia E11.65 ; Encounter for immunization Z23 and Delayed gastric emptying K30 [place] [address] [place] [id number] [place] [address] Nov, [place] [address] [address] Oct, Essential hypertension I10 ; Coronary atherosclerosis of unspecified type of vessel, [place] or graft I25.10 ; Type 2 diabetes mellitus with hyperglycemia E11.65 and Gout, unspecified M10.9 [place] [address] [address] 07 Oct, 2017 Chronic kidney disease, stag e V (very severe) N18.5 [place] [address] [address] Oct, Mixed hyperlipidemia E78.2 [place] [address] [place] [id number] [place] [address] Sep, Type 2 diabetes mellitus wit h hyperglycemia E11.65 [place] [address] [address] Sep, Mixed hyperlipidemia E78.2 [place] [address] [place] [id number] [place] [address] Sep, Chronic kidney disease, stag e V (very severe) N18.5 [place] [address] [address] 15 Sep, 2017 Type 2 diabetes mellitus wit h hyperglycemia E11.65 and Essential hypertension I10 [place] [address] [address] Sep, Type 2 diabetes mellitus wit h hyperglycemia E11.65 [place] [address] [address] 16 Aug, 2017 Gout, unspecified M10.9 ; Ga stroesophageal reflux disease, esophagitis presence not specified K21.9 ; Mood disorder F39 and Coronary atherosclerosis of unspecified type of vessel, [place] or graft I25.10 [place] [address] [address] Aug, [place] [address] [address] June, Type 2 diabetes mellitus wit h hyperglycemia E11.65 [place] [address] [address] May, Mood disorder F39 ; Gastroes ophageal reflux disease, esophagitis presence not specified K21.9 ; Gout, unspecified M10.9 ; Coronary atherosclerosis of unspecified type of vessel, [place] or graft I25.10 and Type 2 diabetes mellitus with hyperglycemia E11.65 [place] [address] [address] May, Type 2 diabetes mellitus wit h hyperglycemia E11.65 [place] [address] [address] Apr, Diabetes E11.9 and Mood diso rder F39 [place] [address] [address] 15 Mar, 2017 Primary osteoarthritis of le ft knee M17.12 and Tear of lateral meniscus of left knee, unspecified tear type, unspecified whether old or current tear, initial encounter S83.282A [place] [address] [address] Feb, Mood disorder F39 [facility] [address] [facility] [id number] [address] [place] [address] Feb, Pseudogout M11.20 [facility] [address] [facility] [id number] [address] [place] [address] Jan, 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 [facility] [address] [id number] [address] [place] [address] Jan, [facility] [address] [facility] [id number] [address] [place] [address] Jan, Pseudogout M11.20 ; Type 2 d iabetes mellitus with hyperglycemia E11.65 and 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 (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 [facility] [address] [facility] [id number] [address] [place] [address] Jan, Gout of left knee due to eloisa al impairment, unspecified chronicity M10.362 ; Type 2 diabetes mellitus with diabetic nephropathy E11.21 ; Synovial cyst of popliteal space [Mejia], left knee M71.22 and Low back pain M54.5 [place] [address] [facility] [id number] [address] [place] [address] Dec, Pseudogout M11.20 [place] [address] [facility] [id number] [address] [place] [address] Dec, [place] [address] [facility] [id number] [address] [place] [address] 13 Dec, 2016 Type 2 diabetes mellitus wit h diabetic nephropathy E11.21 and Right anterior knee pain M25.561 [place] [address] [facility] [id number] [address] [place] [address] Nov, Pseudogout M11.20 [facility] [address] [facility] [id number] [address] [place] [address] Nov, Pseudogout M11.20 ; Chronic kidney disease, stage 3 N18.3 ; Mixed hyperlipidemia E78.2 ; Gout, unspecified M10.9 ; Coronary atherosclerosis of unspecified type of vessel, [place] or graft I25.10 ; Mood disorder F39 and Gastroesophageal reflux disease, esophagitis presence not specified K21.9 [facility] [address] [facility] [id number] [address] [place] [address] Nov, [facility] [address] [facility] [id number] [address] [place] [address] Oct, Pseudogout M11.20 [facility] [address] [place] [id number] [address] [place] [address] Sep, Pseudogout M11.20 [facility] [address] [place] [id number] [address] [place] [address] Sep, Pseudogout M11.20 [facility] [address] [place] [id number] [address] [place] [address] Sep, [facility] [address] [place] [id number] [place] [id number] Aug, [facility] [address] [place] [id number] [address] [place] [address] Aug, Diabetes E11.9 ; Chronic kid tahir disease, stage 3 N18.3 ; Hyperuricemia E79.0 ; Mixed hyperlipidemia E78.2 ; Gastroesophageal reflux disease, esophagitis presence not specified K21.9 ; Gout, unspecified M10.9 ; Coronary atherosclerosis of unspecified type of vessel, [place] or graft I25.10 and Mood disorder F39 [facility] [address] [facility] [id number] [address] [place] [address] June, [facility] [address] [place] [id number] [address] [place] [address] June, [facility] [address] [facility] [id number] [address] [place] [address] June, [facility] [address] [facility] [id number] [address] [place] [address] May, Chronic renal failure, stage 3 (moderate) N18.3 [facility] [address] [id number] [address] [place] [address] May, Diabetes E11.9 [facility] [address] [id number] [address] [place] [id number] May, [facility] [address] [id number] [address] [place] [phone] Apr, [facility] [address] [id number] [address] [place] [address] Apr, [facility] [address] [id number] [address] [place] [address] Apr, Cellulitis of right lower ex tremity L03.115 and Diabetes E11.9 [facility] [address] [facility] [id number] [address] [place] [address] Apr, Type 2 diabetes mellitus wit h hyperglycemia E11.65 [facility] [address] [facility] [id number] [address] [place] [address] Mar, Cellulitis of right lower ex tremity L03.115 and Low back pain M54.5 [place] [address] [facility] [id number] [address] [place] [address] Mar, [facility] [address] [facility] [id number] [address] [place] [address] Mar, Cellulitis of right lower ex tremity L03.115 [facility] [address] [facility] [id number] [address] [place] [address] Mar, Cellulitis of right lower ex tremity L03.115 [facility] [address] [facility] [id number] [address] [place] [address] Feb, Cellulitis of right lower ex tremity L03.115 [facility] [address] [facility] [id number] [address] [place] [address] Feb, Cellulitis of right lower ex tremity L03.115 [place] [address] [id number] [address] [place] [address] Feb, [facility] [address] [id number] [address] [place] [address] Feb, Leukocytosis, unspecified ty pe D72.829 ; Chronic renal failure, stage 3 (moderate) N18.3 and Type 2 diabetes mellitus with hyperglycemia E11.65 [place] [address] [id number] [address] [place] [address] Feb, Leukocytosis, unspecified ty pe D72.829 [place] [address] [id number] [address] [place] [address] Feb, [place] [address] [id number] [address] [place] [address] Feb, Cellulitis of right lower ex tremity L03.115 ; Thrush B37.0 ; Gout of left knee due to renal impairment, unspecified chronicity M10.362 and Chronic renal failure, stage 3 (moderate) N18.3 [place] [address] [id number] [address] [place] [address] Feb, [place] [address] [id number] [address] [place] [address] Feb, Right foot infection L08.9 ; Type 2 diabetes mellitus with hyperglycemia E11.65 ; Arthralgia of left knee M25.562 ; Chronic kidney disease, stage 3 N18.3 and Diabetes E11.9 [place] [address] [id number] [address] [place] [address] Feb, [place] [address] [id number] [address] [place] [address] Feb, Diabetes E11.9 ; Arthralgia of left knee M25.562 and Thrush B37.0 [place] [address] [id number] [address] [place] [address] Jan, [place] [address] [place] [id number] [place] [address] 08 Jan, 2016 Type 2 diabetes mellitus wit h hyperglycemia E11.65 ; Chronic renal failure, stage 3 (moderate) N18.3 and Leukocytosis, unspecified type D72.829 [facility] [address] [address] Jan, Type 2 diabetes mellitus wit h hyperglycemia E11.65 [place] [address] [address] Dec, Gout of left knee due to eloisa al impairment, unspecified chronicity M10.362 [place] [address] [address] Dec, Gout of left knee due to eloisa al impairment, unspecified chronicity M10.362 and Diabetes E11.9 [place] [address] [address] Dec, [place] [address] [address] Dec, [facility] [address] [address] Dec, [place] [address] [address] Dec, Chronic kidney disease, stag e 3 N18.3 ; Type 2 diabetes mellitus with diabetic nephropathy E11.21 ; Type 2 diabetes mellitus with hyperglycemia E11.65 and 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 [facility] [address] [address] Dec, Leukocytosis, unspecified ty pe D72.829 ; Chronic renal failure, stage 3 (moderate) N18.3 and Nausea R11.0 [facility] [address] [address] Nov, [place] [address] [address] Jul, [facility] [address] [facility] [id number] [address] [place] [address] Jul, Diabetes E11.9 ; Low back pa in M54.5 and Other chronic pain G89.29 [facility] [address] [id number] [address] [place] [address] June, [facility] [address] [facility] [id number] [address] [place] [address] June, [facility] [address] [id number] [address] [place] [phone] Jan, Viral illness B34.9 [facility] [address] [facility] [id number] [address] [place] [address] Jan, Type 2 diabetes mellitus wit h hyperglycemia E11.65 ; Pain in right foot M79.671 and Localized edema R60.0 [facility] [address] [facility] [id number] [address] [place] [address] Jan, [facility] [address] [facility] [id number] [address] [place] [address] Dec, Right foot pain M79.671 ; In somnia, unspecified type G47.00 and Diabetes E11.9 [facility] [address] [facility] [id number] [address] [place] [address] Dec, Pain in right foot M79.671 [facility] [address] [id number] [address] [place] [address] Nov, [facility] [address] [facility] [id number] [address] [place] [id number] Sep, [facility] [address] [facility] [id number] [address] [place] [id number] Sep, Diabetes mellitus, type II 2 50.00 [facility] [address] [facility] [id number] [address] [place] [address] May, [facility] [address] [id number] [address] [place] [address] [place] [address] 13 May, 2014 [facility] [address] [id number] [address] [place] [address], [place] [address] 19 Apr, 2014 [facility] [address] [id number] [address] [place] [address], [place] [address] 19 Apr, 2014 [facility] [address] [id number] [address] [place] [address], [place] [address] 16 Apr, 2014 [facility] [address] [id number] [address] [place] [address], [place] [address] 16 Apr, 2014 [facility] [address] [id number] [address] [place] [address], [place] [address] 12 Apr, 2014 [facility] [address] [id number] [address] [place] [address], [place] [address] 12 Apr, 2014 [facility] [address] [id number] [address] [place] [address], [place] [address] 05 Apr, 2014 [facility] [address] [id number] [address] [place] [address], [place] [address] 05 Apr, 2014 [facility] [address] [id number] [address] [place] [address], [place] [address] 18 Jan, 2014 [facility] [address] [id number] [address] [place] [address], [place] [address] 18 Jan, 2014 [facility] [address] [id number] [address] [place] [address], [place] [address] 15 Jan, 2014 [facility] [address] [id number] [address] [place] [address], [place] [address] 15 Jan, 2014 [facility] [address] [id number] [address] [place] [address], [place] [address] 10 Dec, 2013 [facility] [address] [id number] [address] [place] [address], [place] [address] 10 Dec, 2013 [facility] [address] [id number] [address] [place] [address], [place] [address] 13 Nov, 2013 [facility] [address] [id number] [facility] [place] [address] 13 Nov, 2013 [facility] [address] [id number] [facility] [place] [address] Oct, [facility] [address] [id number] [address] [place] [address], [place] [address] Oct, 2013 [facility] [address] [id number] [address] [place] [address], [place] [address] 05 Oct, 2013 [facility] [address] [id number] [address] [place] [address], [place] [address] 05 Oct, 2013 [facility] [address] [id number] [address] [place] [address], [place] [address] Sep, [facility] [address] [id number] [address] [place] [address], [place] [address] Sep, [facility] [address] [id number] [address] [place] [address], [place] [address] Sep, [facility] [address] [id number] [address] [place] [address], [place] [address] Sep, [facility] [address] [id number] [address] [place] [address], [place] [id number] Sep, [facility] [address] [id number] [address] [place] [address], [place] [id number] Sep, [facility] [address] [id number] [address] [place] [address], [place] [id number] Sep, [facility] [address] [id number] [address] [place] [address], [place] [id number] Sep, [facility] [address] [id number] [address] [place] [address], [place] [id number] Sep, [facility] [address] [id number] [address] [place] [address], [place] [id number] Sep, [facility] [address] [id number] [address] [place] [address], [place] [id number] Sep, [facility] [address] [id number] [address] [place] [id number] Sep, [facility] [address] [id number] [address] [place] [address], [place] [id number] Aug, [facility] [address] [id number] [address] [place] [address], [place] [id number] Aug, [facility] [address] [id number] [address] [place] [address], [place] [id number] Aug, [facility] [address] [id number] [address] [place] [address], [place] [id number] Aug, [facility] [address] [id number] [address] [place] [address], [place] [id number] June, [facility] [address] [id number] [address] [place] [address], [place] [address] May, [facility] [place] [facility] [address] [id number] [address] [place] [address], [place] [address] 24 May, 2013 [facility] [address] [id number] [address] [place] [address], [place] [address] May, [facility] [address] [id number] [address] [place] [address], [place] [address] 18 May, 2013 [facility] [address] [id number] [address] [place] [address], [place] [address] 17 May, 2013 [facility] [place] [facility] [address] [id number] [address] [place] [address], [place] [id number] 17 May, 2013 [facility] [place] [facility] [address] [id number] [address] [place] [address], [place] [address] 16 May, 2013 [facility] [place] [facility] [address] [id number] [address] [place] [address], [place] [address] 16 May, 2013 [facility] [place] [facility] [address] [id number] [address] [place] [address], [place] [address] May, [facility] [place] [facility] [address] [id number] [address] [place] [address] 14 May, 2013 [facility] [address] [id number] [address] [place] [address], [place] [address] 14 May, 2013 [facility] [address] [id number] [address] [place] [address], [place] [address] 14 May, 2013 [facility] [address] [id number] [address] [place] [address], [place] [address] Apr, [facility] [address] [id number] [address] [place] [address], [place] [address] Apr, [facility] [address] [id number] [address] [place] [address], [place] [address] Mar, [facility] [address] [id number] [address] [place] [address], [place] [address] Mar, [facility] [address] [id number] [address] [place] [address], [place] [address] Dec, [facility] [address] [id number] [address] [place] [address], [place] [address] Dec, [facility] [address] [id number] [address] [place] [address], [place] [address] Dec, [facility] [address] [id number] [address] [place] [address], [place] [address] Dec, [facility] [address] [id number] [address] [place] [address], [place] [address] Nov, [facility] [address] [id number] [address] [place] [address], [place] [address] Nov, [facility] [address] [id number] [address] [place] [address], [place] [address] 30 Oct, 2012 [facility] [place] [facility] [address] [id number] [address] [place] [address], [place] [address] 27 Oct, 2012 [facility] [address] [id number] [address] [place] [address], [place] [address] Aug, [facility] [address] [id number] [address] [place] [address], [place] [address] Aug, [facility] [address] [id number] [address] [place] [address], [place] [address] Aug, [facility] [address] [id number] [address] [place] [address], [place] [address] Jul, [facility] [address] [id number] [address] [place] [address], [place] [address] June, [facility] [address] [id number] [address] [place] [address], [place] [address] June, [facility] [address] [id number] [address] [place] [address], [place] [address] Apr, [facility] [address] [id number] [address] [place] [address], [place] [address] Mar, [facility] [address] [id number] [address] [place] [address], [place] [address] Mar, [facility] [address] [id number] [address] [place] [address], [place] [address] Mar, [facility] [address] [id number] [address] [place] [address], [place] [address] Mar, [facility] [address] [id number] [address] [place] [address], [place] [address] Mar, [facility] [address] [id number] [address] [place] [address], [place] [address] Feb, [facility] [address] [id number] [address] [place] [address], [place] [address] Feb, [facility] [address] [id number] [address] [place] [address], [place] [address] Feb, [facility] [address] [id number] [address] [place] [address], [place] [address] Feb, [facility] [address] [id number] [address] [place] [address], [place] [address] Jan, [facility] [address] [id number] [address] [place] [address], [place] [address] Jan, [facility] [address] [id number] [address] [place] [address], [place] [address] Dec, [facility] [place] [facility] [address] [id number] [address] [place] [address], [place] [address] Dec, [facility] [address] [id number] [address] [place] [address], [place] [address] Dec, [facility] [address] [id number] [address] [place] [address], [place] [address] Dec, [facility] [address] [id number] [address] [place] [address], [place] [address] Oct, [facility] [address] [id number] [address] [place] [address], [place] [address] Aug, [facility] [address] [id number] [address] [place] [address], [place] [address] Jul, [facility] [address] [id number] [address] [place] [address], [place] [address] June, [facility] [address] [id number] [address] [place] [address], [place] [address] June, [facility] [address] [id number] [address] [place] [address], [place] [address] June, [facility] [address] [id number] [address] [place] [address], [place] [address] June, [facility] [address] [id number] [address] [place] [address], [place] [address] June, [facility] [address] [id number] [address] [place] [address], [place] [address] May, [facility] [address] [id number] [address] [place] [address], [place] [address] May, [facility] [place] [facility] [address] [id number] [address] [place] [address], [place] [address] 15 Apr, 2011 [facility] [address] [id number] [address] [place] [address], [place] [address] 13 Apr, 2011 [facility] [address] [id number] [address] [place] [address], [place] [address] Mar, [facility] [address] [id number] [address] [place] [address], [place] [address] Feb, [facility] [address] [id number] [address] [place] [address], [place] [address] Nov, [facility] [address] [id number] [address] [place] [address], [place] [address] Nov, [facility] [address] [id number] [address] [place] [address], [place] [address] Nov, [facility] [address] [id number] [address] [place] [address], [place] [address] Apr, [facility] [address] [id number] [address] [place] [address], [place] [address] Jan, [facility] [address] [id number] [address] [place] [address], [place] [address] Dec, [facility] [address] [id number] [address] [place] [address], [place] [address] Dec, [facility] [address] [id number] [address] [place] [address], [place] [address] 29 Nov, 2009 [facility] [address] [id number] [address] [place] [address], [place] [address] June, [facility] [address] [id number] [address] [place] [address], [place] [address] 29 Jan, 2009 [facility] [address] [id number] [address] [place] [address], [place] [address] Jan, [facility] [address] [id number] [address] [place] [id number] 23 Jan, 2009 [facility] [address] [id number] [address] [place] [id number] 22 Jan, 2009 [facility] [address] [id number] [address] [place] [id number] 16 Jan, 2009 [facility] [address] [id number] [address] [place] [id number] 15 Jan, 2009 [facility] [address] [id number] [address] [place] [id number] 15 Jan, 2009 [facility] [address] [id number] [address] [place] [id number] 11 Jan, 2009 [facility] [address] [id number] [address] [place] [id number] 11 Jan, 2009 [facility] [address] [id number] [address] [place] [id number] 10 Jan, 2009 [facility] [address] [id number] [address] [place] [id number] 04 Jan, 2009 [facility] [address] [id number] [address] [place] [id number] 02 Jan, 2009 [facility] [address] [id number] [address] [place] [id number] 25 Dec, 2008 [facility] [address] [id number] [address] [place] [id number] Dec, [facility] [address] [id number] [address] [place] [id number] 17 Dec, 2008 [facility] [address] [id number] [address] [place] [id number] 17 Dec, 2008 [facility] [address] [id number] [address] [place] [id number] 20 Nov, 2008 [facility] [address] [id number] [address] [place] [id number] 10 Oct, 2008 IMMUNIZATIONS No Known Immunizations SOCIAL HISTORY Never Assessed REASON FOR VISIT PLAN OF CARE VITAL SIGNS Height 73 in 2013-10-12 Weight 285.6 lbs 2013-10-12 Temperature 98.6 degrees Fahrenheit 2013-10-12 Heart Rate 86 bpm 2013-10-12 Respiratory Rate 22 2013-10-12 Blood pressure systolic 130 mmHg 2013-10-12 Blood pressure diastolic 84 mmHg 2013-10-12 MEDICATIONS Unknown Medications RESULTS No Results PROCEDURES [...]
--- OUTSIDE RECORDS SUMMARY | 2019-07-04 10:17 | XMS REPORT ---
Author Author Charles Perez Doctor Organization 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 5 Active 962086985 Problem End stage kidney disease N18.6 Activ e 86116355 Problem Gout of left knee due to renal impairment, unspe cified chronicity M10.362 Active 365706628 Problem Type 2 diabetes mellitus with hyperglycemia E11.65 Active 483492838982627 Problem Mood disorder F39 Active 897223 05 Problem Delayed gastric emptying K30 Activ e 954273895 Problem Kidney stone N20.0 Active 9715622 7 Problem Proteinuria R80.9 Active 65506674 Problem Sinusitis J32.9 Active 27776819 ALLERGIES No Information ENCOUNTERS Encounter Location Date Diagnosis [facility] [address] [facility] [id number] [address] [place] [address] Oct, [facility] [address] [facility] [id number] [address] [place] [address] Jul, Type 2 diabetes mellitus wit h hyperglycemia E11.65 [facility] [address] [facility] [id number] [address] [place] [address] Jul, Type 2 diabetes mellitus wit h hyperglycemia E11.65 [facility] [address] [facility] [id number] [address] [place] [address] Jul, Type 2 diabetes mellitus wit h hyperglycemia E11.65 [facility] [address] [facility] [id number] [address] [place] [address] June, Type 2 diabetes mellitus wit h hyperglycemia E11.65 ; End stage kidney disease N18.[address] [facility] [address] [facility] [id number] [address] [place] [address] May, [facility] [address] [facility] [id number] [address] [place] [address] May, Essential hypertension I10 [facility] [address] [facility] [id number] [address] [place] [address] Apr, [facility] [address] [facility] [id number] [address] [place] [address] Apr, Type 2 diabetes mellitus wit h hyperglycemia E11.65 and Essential hypertension I10 [facility] [address] [facility] [id number] [address] [place] [address] Apr, [facility] [address] [facility] [id number] [address] [place] [address] Apr, Type 2 diabetes mellitus wit h hyperglycemia E11.65 [facility] [address] [facility] [id number] [address] [place] [address] Apr, [facility] [address] [facility] [id number] [address] [place] [address] Mar, Type 2 diabetes mellitus wit h hyperglycemia E11.65 [facility] [address] [facility] [id number] [address] [place] [address] Mar, Type 2 diabetes mellitus wit h diabetic nephropathy E11.21 ; End stage kidney disease N18.6 ; Callus L84 and Onychomycosis B35.1 [facility] [address] [facility] [id number] [address] [place] [address] Feb, [facility] [address] [place] [id number] [address] [place] [address] Feb, Sinusitis J32.9 ; Nausea R11 [address] [facility] [address] [address] Jan, [place] [address] [address] Jan, [place] [address] [address] Jan, Essential hypertension I10 ; Gout, unspecified M10.9 ; Coronary atherosclerosis of unspecified type of vessel, [place] or graft I25.10 ; Mixed hyperlipidemia E78.2 and Type 2 diabetes mellitus with hyperglycemia E11.65 [place] [address] [address] Dec, Chronic kidney disease, stag e 3 N18.3 ; Proteinuria R80.9 ; Diabetes mellitus E11.9 ; Acute kidney failure, unspecified N17.9 and Mixed hyperlipidemia E78.2 [place] [address] [address] 16 Dec, 2017 Chronic kidney disease, stag e 3 N18.3 ; Essential hypertension I10 ; Proteinuria R80.9 ; Diabetes mellitus E11.9 ; Kidney stone N20.0 ; Acute kidney failure, unspecified N17.9 ; Edema R60.9 and Mixed hyperlipidemia E78.2 [place] [address] [place] [id number] [address] [place] [address] 14 Dec, 2017 Type 2 diabetes mellitus wit h hyperglycemia E11.[address] [address] 14 Dec, 2017 Chronic kidney disease, stag e 3 N18.3 [place] [address] [address] 06 Dec, 2017 Type 2 diabetes mellitus wit h hyperglycemia E11.65 [place] [address] [place] [id number] [address] [place] [address] Dec, [place] [address] [address] Nov, Type 2 diabetes mellitus wit h hyperglycemia E11.65 [place] [address] [place] [id number] [place] [address] Nov, [place] [address] [address] Nov, Chronic kidney disease, stag e V (very severe) N18.5 ; Type 2 diabetes mellitus with hyperglycemia E11.65 ; Encounter for immunization Z23 and Delayed gastric emptying K30 [place] [address] [place] [id number] [place] [address] Nov, [place] [address] [address] Oct, Essential hypertension I10 ; Coronary atherosclerosis of unspecified type of vessel, p[place] or graft I25.10 ; Type 2 diabetes mellitus with hyperglycemia E11.65 and Gout, unspecified M10.9 [place] [address] [address] 07 Oct, 2017 Chronic kidney disease, stag e V (very severe) N18.5 [place] [address] [address] Oct, Mixed hyperlipidemia E78.2 [place] [address] [place] [id number] [place] [address] Sep, Type 2 diabetes mellitus wit h hyperglycemia E11.65 [place] [address] [address] Sep, Mixed hyperlipidemia E78.2 [place] [address] [place] [id number] [place] [address] Sep, Chronic kidney disease, stag e V (very severe) N18.5 [place] [address] [address] 15 Sep, 2017 Type 2 diabetes mellitus wit h hyperglycemia E11.65 and Essential hypertension I10 [place] [address] [address] Sep, Type 2 diabetes mellitus wit h hyperglycemia E11.65 [place] [address] [address] 16 Aug, 2017 Gout, unspecified M10.9 ; Ga stroesophageal reflux disease, esophagitis presence not specified K21.9 ; Mood disorder F39 and Coronary atherosclerosis of unspecified type of vessel, [place] or graft I25.10 [place] [address] [address] Aug, [place] [address] [address] June, Type 2 diabetes mellitus wit h hyperglycemia E11.65 [place] [address] [address] May, Mood disorder F39 ; Gastroes ophageal reflux disease, esophagitis presence not specified K21.9 ; Gout, unspecified M10.9 ; Coronary atherosclerosis of unspecified type of vessel, p[place] or graft I25.10 and Type 2 diabetes mellitus with hyperglycemia E11.65 [place] [address] [address] May, Type 2 diabetes mellitus wit h hyperglycemia E11.65 [place] [address] [address] Apr, Diabetes E11.9 and Mood diso rder F39 [place] [address] [address] 15 Mar, 2017 Primary osteoarthritis of le ft knee M17.12 and Tear of lateral meniscus of left knee, unspecified tear type, unspecified whether old or current tear, initial encounter S83.282A [place] [address] [address] Feb, Mood disorder F39 [facility] [address] [facility] [id number] [address] [place] [address] Feb, Pseudogout M11.20 [facility] [address] [facility] [id number] [address] [place] [address] Jan, Other rod buster (current) dr ug therapy Z79.899 [facility] [address] [id number] [address] [place] [address] Jan, [facility] [address] [facility] [id number] [address] [place] [address] Jan, Pseudogout M11.20 ; Type 2 d iabetes mellitus with hyperglycemia E11.65 and Other rod buster (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 [facility] [address] [facility] [id number] [address] [place] [address] Jan, Gout of left knee due to eloisa al impairment, unspecified chronicity M10.362 ; Type 2 diabetes mellitus with diabetic nephropathy E11.21 ; Synovial cyst of popliteal space [Mejia], left knee M71.22 and Low back pain M54.5 [place] [address] [facility] [id number] [address] [place] [address] Dec, Pseudogout M11.20 [place] [id number] [facility] [id number] [address] [place] [address] Dec, [place] [address] [facility] [id number] [address] [place] [address] 13 Dec, 2016 Type 2 diabetes mellitus wit h diabetic nephropathy E11.21 and Right anterior knee pain M25.561 [place] [address] [facility] [id number] [address] [place] [address] Nov, Pseudogout M11.20 [facility] [address] [facility] [id number] [address] [place] [address] Nov, Pseudogout M11.20 ; Chronic kidney disease, stage 3 N18.3 ; Mixed hyperlipidemia E78.2 ; Gout, unspecified M10.9 ; Coronary atherosclerosis of unspecified type of vessel, p[place] or graft I25.10 ; Mood disorder F39 and Gastroesophageal reflux disease, esophagitis presence not specified K21.9 [facility] [address] [facility] [id number] [address] [place] [address] Nov, [facility] [address] [facility] [id number] [address] [place] [address] Oct, Pseudogout M11.20 [facility] [address] [place] [id number] [address] [place] [address] Sep, Pseudogout M11.20 [facility] [address] [place] [id number] [address] [place] [address] Sep, Pseudogout M11.20 [facility] [address] [place] [id number] [address] [place] [address] Sep, [facility] [address] [place] [id number] [place] [id number] Aug, [facility] [address] [place] [id number] [address] [place] [address] Aug, Diabetes E11.9 ; Chronic kid tahir disease, stage 3 N18.3 ; Hyperuricemia E79.0 ; Mixed hyperlipidemia E78.2 ; Gastroesophageal reflux disease, esophagitis presence not specified K21.9 ; Gout, unspecified M10.9 ; Coronary atherosclerosis of unspecified type of vessel, p[place] or graft I25.10 [address] Mood disorder F39 [facility] [address] [facility] [id number] [address] [place] [address] June, [facility] [address] [place] [id number] [address] [place] [address] June, [facility] [address] [facility] [id number] [address] [place] [address] June, [facility] [address] [facility] [id number] [address] [place] [address] May, Chronic renal failure, stage 3 (moderate) N18.3 [facility] [address] [id number] [address] [place] [address] May, Diabetes E11.9 [facility] [address] [id number] [address] [place] [address] May, [facility] [address] [id number] [address] [place] [address] Apr, [facility] [address] [id number] [address] [place] [address] Apr, [facility] [address] [id number] [address] [place] [address] Apr, Cellulitis of right lower ex tremity L03.[address] [facility] [address] [facility] [id number] [address] [place] [address] Apr, Type 2 diabetes mellitus wit h hyperglycemia E11.65 [facility] [address] [facility] [id number] [address] [place] [address] Mar, Cellulitis of right lower ex tremity L03.115 and Low back pain M54.5 [place] [address] [facility] [id number] [address] [place] [address] Mar, [facility] [address] [facility] [id number] [address] [place] [address] Mar, Cellulitis of right lower ex tremity L03.115 [facility] [address] [facility] [id number] [address] [place] [address] Mar, Cellulitis of right lower ex tremity L03.115 [facility] [address] [facility] [id number] [address] [place] [address] Feb, Cellulitis of right lower ex tremity L03.115 [facility] [address] [facility] [id number] [address] [place] [address] Feb, Cellulitis of right lower ex tremity L03.115 [place] [address] [id number] [address] [place] [address] Feb, [facility] [address] [id number] [address] [place] [address] Feb, Leukocytosis, unspecified ty pe D72.829 ; Chronic renal failure, stage 3 (moderate) N18.3 and Type 2 diabetes mellitus with hyperglycemia E11.65 [place] [address] [id number] [address] [place] [address] Feb, Leukocytosis, unspecified ty pe D72.829 [place] [address] [id number] [address] [place] [address] Feb, [place] [address] [id number] [address] [place] [address] Feb, Cellulitis of right lower ex tremity L03.115 ; Thrush B37.0 ; Gout of left knee due to renal impairment, unspecified chronicity M10.362 and Chronic renal failure, stage 3 (moderate) N18.3 [place] [address] [id number] [address] [place] [address] Feb, [place] [address] [id number] [address] [place] [address] Feb, Right foot infection L08.9 ; Type 2 diabetes mellitus with hyperglycemia E11.65 ; Arthralgia of left knee M25.562 ; Chronic kidney disease, stage 3 N18.3 and Diabetes E11.9 [place] [address] [id number] [address] [place] [address] Feb, [place] [address] [id number] [address] [place] [address] Feb, Diabetes E11.9 ; Arthralgia of left knee M25.562 and Thrush B37.0 [place] [address] [id number] [address] [place] [address] Jan, [place] [address] [place] [id number] [place] [address] 08 Jan, 2016 Type 2 diabetes mellitus wit h hyperglycemia E11.65 ; Chronic renal failure, stage 3 (moderate) N18.3 and Leukocytosis, unspecified type D72.829 [facility] [address] [address] Jan, Type 2 diabetes mellitus wit h hyperglycemia E11.65 [place] [address] [address] Dec, Gout of left knee due to eloisa al impairment, unspecified chronicity M10.362 [place] [address] [address] Dec, Gout of left knee due to eloisa al impairment, unspecified chronicity M10.362 and Diabetes E11.9 [place] [address] [address] Dec, [place] [address] [address] Dec, [facility] [address] [address] Dec, [place] [address] [address] Dec, Chronic kidney disease, stag e 3 N18.3 ; Type 2 diabetes mellitus with diabetic nephropathy E11.21 ; Type 2 diabetes mellitus with hyperglycemia E11.65 and 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 [address] [address] Nov, [place] [address] [address] Jul, [facility] [address] [facility] [id number] [address] [place] [address] Jul, Diabetes E11.9 ; Low back pa in M54.5 and Other chronic pain G89.29 [facility] [address] [id number] [address] [place] [address] June, [facility] [address] [facility] [id number] [address] [place] [address] June, [facility] [address] [id number] [address] [place] [address] Jan, Viral illness B34.9 [facility] [address] [facility] [id number] [address] [place] [address] Jan, Type 2 diabetes mellitus wit h hyperglycemia E11.65 ; Pain in right foot M79.671 and Localized edema R60.0 [facility] [address] [facility] [id number] [address] [place] [address] Jan, [facility] [address] [facility] [id number] [address] [place] [address] Dec, Right foot pain M79.671 ; In somnia, unspecified type G47.[address] [facility] [address] [facility] [id number] [address] [place] [address] Dec, Pain in right foot M79.671 [facility] [address] [id number] [address] [place] [address] Nov, [facility] [address] [facility] [id number] [address] [place] [address] Sep, [facility] [address] [facility] [id number] [address] [place] [address] Sep, Diabetes mellitus, type II [address] [facility] [address] [facility] [id number] [address] [place] [address] May, [facility] [address] [id number] [address] [place] [address] [place] [address] 13 May, 2014 [facility] [address] [id number] [address] [place] [address], [place] [address] 19 Apr, 2014 [facility] [address] [id number] [address] [place] [address], [place] [address] 19 Apr, 2014 [facility] [address] [id number] [address] [place] [address], [place] [address] 16 Apr, 2014 [facility] [address] [id number] [address] [place] [address], [place] [address] 16 Apr, 2014 [facility] [address] [id number] [address] [place] [address], [place] [address] 12 Apr, 2014 [facility] [address] [id number] [address] [place] [address], [place] [address] 12 Apr, 2014 [facility] [address] [id number] [address] [place] [address], [place] [address] 05 Apr, 2014 [facility] [address] [id number] [address] [place] [address], [place] [address] 05 Apr, 2014 [facility] [address] [id number] [address] [place] [address], [place] [address] 18 Jan, 2014 [facility] [address] [id number] [address] [place] [address], [place] [address] 18 Jan, 2014 [facility] [address] [id number] [address] [place] [address], [place] [address] 15 Jan, 2014 [facility] [address] [id number] [address] [place] [address], [place] [address] 15 Jan, 2014 [facility] [address] [id number] [address] [place] [address], [place] [address] 10 Dec, 2013 [facility] [address] [id number] [address] [place] [address], [place] [address] 10 Dec, 2013 [facility] [address] [id number] [address] [place] [address], [place] [address] 13 Nov, 2013 [facility] [address] [id number] [facility] [place] [address] 13 Nov, 2013 [facility] [address] [id number] [facility] [place] [address] Oct, [facility] [address] [id number] [address] [place] [address], [place] [address] Oct, 2013 [facility] [address] [id number] [address] [place] [address], [place] [address] 05 Oct, 2013 [facility] [address] [id number] [address] [place] [address], [place] [address] 05 Oct, 2013 [facility] [address] [id number] [address] [place] [address], [place] [address] Sep, [facility] [address] [id number] [address] [place] [address], [place] [address] Sep, [facility] [address] [id number] [address] [place] [address], [place] [address] Sep, [facility] [address] [id number] [address] [place] [address], [place] [address] Sep, [facility] [address] [id number] [address] [place] [address], [place] [address] Sep, [facility] [address] [id number] [address] [place] [address], [place] [address] Sep, [facility] [address] [id number] [address] [place] [address], [place] [address] Sep, [facility] [address] [id number] [address] [place] [address], [place] [address] Sep, [facility] [address] [id number] [address] [place] [address], [place] [address] Sep, [facility] [address] [id number] [address] [place] [address], [place] [address] Sep, [facility] [address] [id number] [address] [place] [address], [place] [address] Sep, [facility] [address] [id number] [facility] [place] [address] Sep, [facility] [address] [id number] [address] [place] [address], [place] [address] Aug, [facility] [address] [id number] [address] [place] [address], [place] [address] Aug, [facility] [address] [id number] [address] [place] [address], [place] [address] Aug, [facility] [address] [id number] [address] [place] [address], [place] [address] Aug, [facility] [facility] [address] [id number] [address] [place] [address], [place] [address] June, [facility] [address] [id number] [address] [address], [place] [address] May, [facility] [place] [facility] [address] [id number] [address] [place] [address], [place] [address] 24 May, 2013 [facility] [address] [id number] [address] [address], [place] [address] May, [facility] [address] [id number] [address] [place] [address], [place] [address] 18 May, 2013 [facility] [address] [id number] [address] [address], [place] [address] 17 May, 2013 [facility] [place] [facility] [address] [id number] [address] [address], [place] [address] 17 May, 2013 [facility] [place] [facility] [address] [id number] [address] [place] [address], [place] [address] 16 May, 2013 [facility] [place] [facility] [address] [id number] [address] [place] [address], [place] [address] 16 May, 2013 [facility] [place] [facility] [address] [id number] [address] [place] [address], [place] [address] May, [facility] [place] [facility] [address] [id number] [address] [place] [address] 14 May, 2013 [facility] [address] [id number] [address] [place] [address], [place] [address] 14 May, 2013 [facility] [address] [id number] [address] [address], [place] [address] 14 May, 2013 [facility] [address] [id number] [address] [address], [place] [address] Apr, [facility] [address] [id number] [address] [address], [place] [address] Apr, [facility] [address] [id number] [address] [place] [address], [place] [address] Mar, [facility] [address] [id number] [address] [place] [address], [place] [address] Mar, [facility] [address] [id number] [address] [address], [place] [address] Dec, [facility] [address] [id number] [address] [address], [place] [address] Dec, [facility] [address] [id number] [address] [address], [place] [address] Dec, [facility] [address] [id number] [address] [address], [place] [address] Dec, [facility] [address] [id number] [address] [address], [place] [address] Nov, [facility] [address] [id number] [address] [address], [place] [address] Nov, [facility] [address] [id number] [address] [address], [place] [address] 30 Oct, 2012 [facility] [place] [facility] [address] [id number] [address] [address], [place] [address] 27 Oct, 2012 [facility] [address] [id number] [address] [address], [place] [address] Aug, [facility] [address] [id number] [address] [address], [place] [address] Aug, [facility] [address] [id number] [address] [address], [place] [address] Aug, [facility] [address] [id number] [address] [address], [place] [address] Jul, [facility] [address] [id number] [address] [address], [place] [address] June, [facility] [address] [id number] [address] [address], [place] [address] June, [facility] [address] [id number] [address] [address], [place] [address] Apr, [facility] [address] [id number] [address] [address], [place] [address] Mar, [facility] [address] [id number] [address] [place] [address], [place] [address] Mar, [facility] [address] [id number] [address] [place] [address], [place] [address] Mar, [facility] [address] [id number] [address] [address], [place] [address] Mar, [facility] [address] [id number] [address] [address], [place] [address] Mar, [facility] [address] [id number] [address] [address], [place] [address] Feb, [facility] [address] [id number] [address] [address], [place] [address] Feb, [facility] [address] [id number] [address] [address], [place] [address] Feb, [facility] [address] [id number] [address] [address], [place] [address] Feb, [facility] [address] [id number] [address] [address], [place] [address] Jan, [facility] [address] [id number] [address] [address], [place] [address] Jan, [facility] [address] [id number] [address] [address], [place] [address] Dec, [facility] [address] [id number] [address] [address], [place] [address] Dec, [facility] [address] [id number] [address] [address], [place] [address] Dec, [facility] [address] [id number] [address] [address], [place] [address] Dec, [facility] [address] [id number] [address] [address], [place] [address] Oct, [facility] [address] [id number] [address] [address], [place] [address] Aug, [facility] [address] [id number] [address] [address], [place] [address] Jul, [facility] [address] [id number] [address] [address], [place] [address] June, [facility] [address] [id number] [address] [address], [place] [address] June, [facility] [address] [id number] [address] [address], [place] [address] June, [facility] [address] [id number] [address] [address], [place] [address] June, [facility] [address] [id number] [address] [address], [place] [address] June, [facility] [address] [id number] [address] [address], [place] [address] May, [facility] [address] [id number] [address] [address], [place] [address] May, [facility] [address] [id number] [address] [address], [place] [address] 15 Apr, 2011 [facility] [address] [id number] [address] [address], [place] [address] 13 Apr, 2011 [facility] [address] [id number] [address] [address], [place] [address] Mar, [facility] [address] [id number] [address] [address], [place] [address] Feb, [facility] [address] [id number] [address] [address], [place] [address] Nov, [facility] [address] [id number] [address] [address], [place] [address] Nov, [facility] [address] [id number] [address] [address], [place] [address] Nov, [facility] [address] [id number] [address] [address], [place] [address] Apr, [facility] [address] [id number] [address] [address], [place] [address] Jan, [facility] [address] [id number] [address] [address], [place] [address] Dec, [facility] [address] [id number] [address] [address], [place] [address] Dec, [facility] [address] [id number] [address] [address], [place] [address] 29 Nov, 2009 [facility] [address] [id number] [address] [address], [place] [address] June, [facility] [address] [id number] [address] [address], [place] [address] 29 Jan, 2009 [facility] [address] [id number] [address] [place] [address], [place] [address] Jan, [facility] [address] [id number] [address] [place] [address] 23 Jan, 2009 [facility] [address] [id number] [address] [place] [address] 22 Jan, 2009 [facility] [address] [id number] [address] [place] [address] 16 Jan, 2009 [facility] [address] [id number] [address] [place] [address] 15 Jan, 2009 [facility] [address] [id number] [address] [place] [address] 15 Jan, 2009 [facility] [address] [id number] [address] [place] [address] 11 Jan, 2009 [facility] [address] [id number] [address] [place] [address] 11 Jan, 2009 [facility] [address] [id number] [address] [place] [address] 10 Jan, 2009 [facility] [address] [id number] [address] [place] [address] 04 Jan, 2009 [facility] [address] [id number] [address] [place] [address] 02 Jan, 2009 [facility] [address] [id number] [address] [place] [address] 25 Dec, 2008 [facility] [address] [id number] [address] [place] [address] Dec, [facility] [address] [id number] [address] [place] [address] 17 Dec, 2008 [facility] [address] [id number] [address] [place] [id number] 17 Dec, 2008 [facility] [address] [id number] [address] [place] [id number] 20 Nov, 2008 [facility] [address] [id number] [address] [place] [address] 10 Oct, 2008 IMMUNIZATIONS No Known Immunizations [...] knee pseudogout s tatus post joint fluid analysis-[facility] 09/20/16 Hospitalization History kidneys--[facility] 11/2017 Hospitalization History Diverticulitis--[facility] 06/2018
--- OUTSIDE RECORDS SUMMARY | 2019-07-04 10:17 | XMS REPORT ---
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 5 Active 628273484 Problem End stage kidney disease N18.6 Activ e 95889542 Problem Gout of left knee due to renal impairment, unspe cified chronicity M10.362 Active 602308728 Problem Type 2 diabetes mellitus with hyperglycemia E11.65 Active 934572941085968 Problem Mood disorder F39 Active 381658 05 Problem Delayed gastric emptying K30 Activ e 600652697 Problem Kidney stone N20.0 Active 8975991 7 Problem Proteinuria R80.9 Active 29790488 Problem Sinusitis J32.9 Active 98103346 ALLERGIES No Information ENCOUNTERS Encounter Location Date Diagnosis [facility] [address] [facility] [id number] [address] [place] [phone] Oct, [facility] [address] [facility] [id number] [address] [place] [address] Jul, Type 2 diabetes mellitus wit h hyperglycemia E11.65 [facility] [address] [facility] [id number] [address] [place] [id number] Jul, Type 2 diabetes mellitus wit h hyperglycemia E11.65 [facility] [address] [facility] [id number] [address] [place] [address] Jul, Type 2 diabetes mellitus wit h hyperglycemia E11.65 [facility] [address] [facility] [id number] [address] [place] [address] June, Type 2 diabetes mellitus wit h hyperglycemia E11.65 ; End stage kidney disease N18.6 and Callus L84 [facility] [address] [facility] [id number] [address] [place] [address] May, [facility] [address] [facility] [id number] [address] [place] [phone] May, Essential hypertension I10 [facility] [address] [facility] [id number] [address] [place] [address] Apr, [facility] [address] [facility] [id number] [address] [place] [address] Apr, Type 2 diabetes mellitus wit h hyperglycemia E11.65 and Essential hypertension I10 [facility] [address] [facility] [id number] [address] [place] [id number] Apr, [facility] [address] [facility] [id number] [address] [place] [address] Apr, Type 2 diabetes mellitus wit h hyperglycemia E11.65 [facility] [address] [facility] [id number] [address] [place] [address] Apr, [facility] [address] [facility] [id number] [address] [place] [address] Mar, Type 2 diabetes mellitus wit h hyperglycemia E11.65 [facility] [address] [facility] [id number] [address] [place] [address] Mar, Type 2 diabetes mellitus wit h diabetic nephropathy E11.21 ; End stage kidney disease N18.6 ; Callus L84 and Onychomycosis B35.1 [facility] [address] [facility] [id number] [address] [place] [id number] Feb, [facility] [address] [place] [id number] [address] [place] [phone] Feb, Sinusitis J32.9 ; Nausea R11 .0 and Otalgia H92.09 [facility] [address] [address] Jan, [place] [address] [address] Jan, [place] [address] [address] Jan, Essential hypertension I10 ; Gout, unspecified M10.9 ; Coronary atherosclerosis of unspecified type of vessel, takotna or graft I25.10 ; Mixed hyperlipidemia E78.2 and Type 2 diabetes mellitus with hyperglycemia E11.65 [place] [address] [address] Dec, Chronic kidney disease, stag e 3 N18.3 ; Proteinuria R80.9 ; Diabetes mellitus E11.9 ; Acute kidney failure, unspecified N17.9 and Mixed hyperlipidemia E78.2 [place] [address] [address] 16 Dec, 2017 Chronic kidney disease, stag e 3 N18.3 ; Essential hypertension I10 ; Proteinuria R80.9 ; Diabetes mellitus E11.9 ; Kidney stone N20.0 ; Acute kidney failure, unspecified N17.9 ; Edema R60.9 and Mixed hyperlipidemia E78.2 [place] [address] [place] [id number] [address] [place] [address] 14 Dec, 2017 Type 2 diabetes mellitus wit h hyperglycemia E11.[address] [address] 14 Dec, 2017 Chronic kidney disease, stag e 3 N18.3 [place] [address] [address] 06 Dec, 2017 Type 2 diabetes mellitus wit h hyperglycemia E11.65 [place] [address] [place] [id number] [address] [place] [address] Dec, [place] [address] [address] Nov, Type 2 diabetes mellitus wit h hyperglycemia E11.65 [place] [address] [place] [id number] [place] [address] Nov, [place] [address] [address] Nov, Chronic kidney disease, stag e V (very severe) N18.5 ; Type 2 diabetes mellitus with hyperglycemia E11.65 ; Encounter for immunization Z23 and Delayed gastric emptying K30 [place] [address] [place] [id number] [place] [address] Nov, [place] [address] [address] Oct, Essential hypertension I10 ; Coronary atherosclerosis of unspecified type of vessel, takotna or graft I25.10 ; Type 2 diabetes mellitus with hyperglycemia E11.65 and Gout, unspecified M10.9 [place] [address] [address] 07 Oct, 2017 Chronic kidney disease, stag e V (very severe) N18.5 [place] [address] [address] Oct, Mixed hyperlipidemia E78.2 [place] [address] [place] [id number] [place] [address] Sep, Type 2 diabetes mellitus wit h hyperglycemia E11.65 [place] [address] [address] Sep, Mixed hyperlipidemia E78.2 [place] [address] [place] [id number] [place] [address] Sep, Chronic kidney disease, stag e V (very severe) N18.5 [place] [address] [address] 15 Sep, 2017 Type 2 diabetes mellitus wit h hyperglycemia E11.65 and Essential hypertension I10 [place] [address] [address] Sep, Type 2 diabetes mellitus wit h hyperglycemia E11.65 [place] [address] [address] 16 Aug, 2017 Gout, unspecified M10.9 ; Ga stroesophageal reflux disease, esophagitis presence not specified K21.9 ; Mood disorder F39 and Coronary atherosclerosis of unspecified type of vessel, takotna or graft I25.10 [place] [address] [address] Aug, [place] [address] [address] June, Type 2 diabetes mellitus wit h hyperglycemia E11.65 [place] [address] [address] May, Mood disorder F39 ; Gastroes ophageal reflux disease, esophagitis presence not specified K21.9 ; Gout, unspecified M10.9 ; Coronary atherosclerosis of unspecified type of vessel, takotna or graft I25.10 and Type 2 diabetes mellitus with hyperglycemia E11.65 [place] [address] [address] May, Type 2 diabetes mellitus wit h hyperglycemia E11.65 [place] [address] [address] Apr, Diabetes E11.9 and Mood diso rder F39 [place] [address] [address] 15 Mar, 2017 Primary osteoarthritis of le ft knee M17.12 and Tear of lateral meniscus of left knee, unspecified tear type, unspecified whether old or current tear, initial encounter S83.282A [place] [address] [address] Feb, Mood disorder F39 [facility] [address] [facility] [id number] [address] [place] [address] Feb, Pseudogout M11.20 [facility] [address] [facility] [id number] [address] [place] [address] Jan, 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 [facility] [address] [id number] [address] [place] [address] Jan, [facility] [address] [facility] [id number] [address] [place] [address] Jan, Pseudogout M11.20 ; Type 2 d iabetes mellitus with hyperglycemia E11.65 and 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 [facility] [address] [facility] [id number] [address] [place] [address] Jan, Gout of left knee due to eloisa al impairment, unspecified chronicity M10.362 ; Type 2 diabetes mellitus with diabetic nephropathy E11.21 ; Synovial cyst of popliteal space [Mejia], left knee M71.22 and Low back pain M54.5 [place] [address] [facility] [id number] [address] [place] [address] Dec, Pseudogout M11.20 [place] [address] [facility] [id number] [address] [place] [address] Dec, [place] [address] [facility] [id number] [address] [place] [address] 13 Dec, 2016 Type 2 diabetes mellitus wit h diabetic nephropathy E11.21 and Right anterior knee pain M25.561 [place] [address] [facility] [id number] [address] [place] [address] Nov, Pseudogout M11.20 [facility] [address] [facility] [id number] [address] [place] [address] Nov, Pseudogout M11.20 ; Chronic kidney disease, stage 3 N18.3 ; Mixed hyperlipidemia E78.2 ; Gout, unspecified M10.9 ; Coronary atherosclerosis of unspecified type of vessel, takotna or graft I25.10 ; Mood disorder F39 and Gastroesophageal reflux disease, esophagitis presence not specified K21.9 [facility] [address] [facility] [id number] [address] [place] [address] Nov, [facility] [address] [facility] [id number] [address] [place] [address] Oct, Pseudogout M11.20 [facility] [address] [place] [id number] [address] [place] [address] Sep, Pseudogout M11.20 [facility] [address] [place] [id number] [address] [place] [address] Sep, Pseudogout M11.20 [facility] [address] [place] [id number] [address] [place] [phone] Sep, [facility] [address] [place] [id number] [place] [id number] Aug, [facility] [address] [place] [id number] [address] [place] [address] Aug, Diabetes E11.9 ; Chronic kid tahir disease, stage 3 N18.3 ; Hyperuricemia E79.0 ; Mixed hyperlipidemia E78.2 ; Gastroesophageal reflux disease, esophagitis presence not specified K21.9 ; Gout, unspecified M10.9 ; Coronary atherosclerosis of unspecified type of vessel, takotna or graft I25.10 and Mood disorder F39 [facility] [address] [facility] [id number] [address] [place] [id number] June, [facility] [address] [place] [id number] [address] [place] [phone] June, [facility] [address] [facility] [id number] [address] [place] [phone] June, [facility] [address] [facility] [id number] [address] [place] [phone] May, Chronic renal failure, stage 3 (moderate) N18.3 [facility] [address] [id number] [address] [place] [phone] May, Diabetes E11.9 [facility] [address] [id number] [address] [place] [phone] May, [facility] [address] [id number] [address] [place] [phone] Apr, [facility] [address] [id number] [address] [place] [id number] Apr, [facility] [address] [id number] [address] [place] [address] Apr, Cellulitis of right lower ex tremity L03.115 and Diabetes E11.9 [facility] [address] [facility] [id number] [address] [place] [address] Apr, Type 2 diabetes mellitus wit h hyperglycemia E11.65 [facility] [address] [facility] [id number] [address] [place] [id number] Mar, Cellulitis of right lower ex tremity L03.115 and Low back pain M54.5 [place] [address] [facility] [id number] [address] [place] [phone] Mar, [facility] [address] [facility] [id number] [address] [place] [address] Mar, Cellulitis of right lower ex tremity L03.115 [facility] [address] [facility] [id number] [address] [place] [address] Mar, Cellulitis of right lower ex tremity L03.115 [facility] [address] [facility] [id number] [address] [place] [address] Feb, Cellulitis of right lower ex tremity L03.115 [facility] [address] [facility] [id number] [address] [place] [address] Feb, Cellulitis of right lower ex tremity L03.115 [place] [address] [id number] [address] [place] [id number] Feb, [facility] [address] [id number] [address] [place] [address] Feb, Leukocytosis, unspecified ty pe D72.829 ; Chronic renal failure, stage 3 (moderate) N18.3 and Type 2 diabetes mellitus with hyperglycemia E11.65 [place] [address] [id number] [address] [place] [address] Feb, Leukocytosis, unspecified ty pe D72.829 [place] [address] [id number] [address] [place] [phone] Feb, [place] [address] [id number] [address] [place] [address] Feb, Cellulitis of right lower ex tremity L03.115 ; Thrush B37.0 ; Gout of left knee due to renal impairment, unspecified chronicity M10.362 and Chronic renal failure, stage 3 (moderate) N18.3 [place] [address] [id number] [address] [place] [address] Feb, [place] [address] [id number] [address] [place] [address] Feb, Right foot infection L08.9 ; Type 2 diabetes mellitus with hyperglycemia E11.65 ; Arthralgia of left knee M25.562 ; Chronic kidney disease, stage 3 N18.3 and Diabetes E11.9 [place] [address] [id number] [address] [place] [address] Feb, [place] [address] [id number] [address] [place] [address] Feb, Diabetes E11.9 ; Arthralgia of left knee M25.562 and Thrush B37.0 [place] [address] [id number] [address] [place] [address] Jan, [place] [address] [place] [id number] [place] [address] 08 Jan, 2016 Type 2 diabetes mellitus wit h hyperglycemia E11.65 ; Chronic renal failure, stage 3 (moderate) N18.3 and Leukocytosis, unspecified type D72.829 [facility] [address] [address] Jan, Type 2 diabetes mellitus wit h hyperglycemia E11.65 [place] [address] [address] Dec, Gout of left knee due to eloisa al impairment, unspecified chronicity M10.362 [place] [address] [address] Dec, Gout of left knee due to eloisa al impairment, unspecified chronicity M10.362 and Diabetes E11.9 [place] [address] [address] Dec, [place] [address] [address] Dec, [facility] [address] [address] Dec, [place] [address] [address] Dec, Chronic kidney disease, stag e 3 N18.3 ; Type 2 diabetes mellitus with diabetic nephropathy E11.21 ; Type 2 diabetes mellitus with hyperglycemia E11.65 and manager intermediate 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 [facility] [address] [address] Dec, Leukocytosis, unspecified ty pe D72.829 ; Chronic renal failure, stage 3 (moderate) N18.3 and Nausea R11.0 [facility] [address] [address] Nov, [place] [address] [address] Jul, [facility] [address] [facility] [id number] [address] [place] [address] Jul, Diabetes E11.9 ; Low back pa in M54.5 and Other chronic pain G89.29 [facility] [address] [id number] [address] [place] [phone] June, [facility] [address] [facility] [id number] [address] [place] [address] June, [facility] [address] [id number] [address] [place] [address] Jan, Viral illness B34.9 [facility] [address] [facility] [id number] [address] [place] [address] Jan, Type 2 diabetes mellitus wit h hyperglycemia E11.65 ; Pain in right foot M79.671 and Localized edema R60.0 [facility] [address] [facility] [id number] [address] [place] [address] Jan, [facility] [address] [facility] [id number] [address] [place] [address] Dec, Right foot pain M79.671 ; In somnia, unspecified type G47.00 and Diabetes E11.9 [facility] [address] [facility] [id number] [address] [place] [address] Dec, Pain in right foot M79.671 [facility] [address] [id number] [address] [place] [id number] Nov, [facility] [address] [facility] [id number] [address] [place] [id number] Sep, [facility] [address] [facility] [id number] [address] [place] [address] Sep, Diabetes mellitus, type II 2 50.00 [facility] [address] [facility] [id number] [address] [place] [id number] May, [facility] [address] [id number] [address] [place] [address] [place] [address] 13 May, 2014 [facility] [address] [id number] [address] [place] [address], [place] [address] 19 Apr, 2014 [facility] [address] [id number] [address] [place] [address], [place] [address] 19 Apr, 2014 [facility] [address] [id number] [address] [place] [address], [place] [address] 16 Apr, 2014 [facility] [address] [id number] [address] [place] [address], [place] [address] 16 Apr, 2014 [facility] [address] [id number] [address] [place] [address], [place] [address] 12 Apr, 2014 [facility] [address] [id number] [address] [place] [address], [place] [address] 12 Apr, 2014 [facility] [address] [id number] [address] [place] [address], [place] [address] 05 Apr, 2014 [facility] [address] [id number] [address] [place] [address], [place] [address] 05 Apr, 2014 [facility] [address] [id number] [address] [place] [address], [place] [address] 18 Jan, 2014 [facility] [address] [id number] [address] [place] [address], [place] [address] 18 Jan, 2014 [facility] [address] [id number] [address] [place] [address], [place] [address] 15 Jan, 2014 [facility] [address] [id number] [address] [place] [address], [place] [address] 15 Jan, 2014 [facility] [address] [id number] [address] [place] [address], [place] [address] 10 Dec, 2013 [facility] [address] [id number] [address] [place] [address], [place] [address] 10 Dec, 2013 [facility] [address] [id number] [address] [place] [address], [place] [address] 13 Nov, 2013 [facility] [address] [id number] [facility] [place] [address] 13 Nov, 2013 [facility] [address] [id number] [facility] [place] [address] Oct, [facility] [address] [id number] [address] [place] [address], [place] [address] Oct, 2013 [facility] [address] [id number] [address] [place] [address], [place] [address] 05 Oct, 2013 [facility] [address] [id number] [address] [place] [address], [place] [address] 05 Oct, 2013 [facility] [address] [id number] [address] [place] [address], [place] [address] Sep, [facility] [address] [id number] [address] [place] [address], [place] [address] Sep, [facility] [address] [id number] [address] [place] [address], [place] [address] Sep, [facility] [address] [id number] [address] [place] [address], [place] [address] Sep, [facility] [address] [id number] [address] [place] [address], [place] [address] Sep, [facility] [address] [id number] [address] [place] [address], [place] [address] Sep, [facility] [address] [id number] [address] [place] [address], [place] [address] Sep, [facility] [address] [id number] [address] [place] [address], [place] [address] Sep, [facility] [address] [id number] [address] [place] [address], [place] [address] Sep, [facility] [address] [id number] [address] [place] [address], [place] [address] Sep, [facility] [address] [id number] [address] [place] [address], [place] [address] Sep, [facility] [address] [id number] [facility] [place] [address] Sep, [facility] [address] [id number] [address] [place] [address], [place] [address] Aug, [facility] [address] [id number] [address] [place] [address], [place] [address] Aug, [facility] [address] [id number] [address] [place] [address], [place] [address] Aug, [facility] [address] [id number] [address] [place] [address], [place] [address] Aug, [facility] [address] [id number] [address] [place] [address], [place] [address] June, [facility] [address] [id number] [address] [place] [address], [place] [address] May, [facility] [address] [id number] [address] [place] [address], [place] [address] 24 May, 2013 [facility] [address] [id number] [address] [place] [address], [place] [address] May, [facility] [address] [id number] [address] [place] [address], [place] [address] 18 May, 2013 [facility] [address] [id number] [address] [place] [address], [place] [address] 17 May, 2013 [facility] [address] [id number] [address] [place] [address], [place] [address] 17 May, 2013 [facility] [address] [id number] [address] [place] [address], [place] [address] 16 May, 2013 [facility] [address] [id number] [address] [place] [address], [place] [address] 16 May, 2013 [facility] [address] [id number] [address] [place] [address], [place] [address] May, [facility] [place] [facility] [address] [id number] [address] [place] [address] 14 May, 2013 [facility] [address] [id number] [address] [place] [address], [place] [address] 14 May, 2013 [facility] [address] [id number] [address] [place] [address], [place] [address] 14 May, 2013 [facility] [address] [id number] [address] [place] [address], [place] [address] Apr, [facility] [address] [id number] [address] [place] [address], [place] [address] Apr, [facility] [address] [id number] [address] [place] [address], [place] [address] Mar, [facility] [address] [id number] [address] [place] [address], [place] [address] Mar, [facility] [address] [id number] [address] [place] [address], [place] [address] Dec, [facility] [address] [id number] [address] [place] [address], [place] [address] Dec, [facility] [address] [id number] [address] [place] [address], [place] [address] Dec, [facility] [address] [id number] [address] [place] [address], [place] [address] Dec, [facility] [address] [id number] [address] [place] [address], [place] [address] Nov, [facility] [address] [id number] [address] [place] [address], [place] [address] Nov, [facility] [address] [id number] [address] [place] [address], [place] [address] 30 Oct, 2012 [facility] [place] [facility] [address] [id number] [address] [place] [address], [place] [address] 27 Oct, 2012 [facility] [address] [id number] [address] [place] [address], [place] [address] Aug, [facility] [address] [id number] [address] [place] [address], [place] [address] Aug, [facility] [address] [id number] [address] [place] [address], [place] [address] Aug, [facility] [address] [id number] [address] [place] [address], [place] [address] Jul, [facility] [address] [id number] [address] [place] [address], [place] [address] June, [facility] [address] [id number] [address] [place] [address], [place] [address] June, [facility] [address] [id number] [address] [place] [address], [place] [address] Apr, [facility] [address] [id number] [address] [place] [address], [place] [address] Mar, [facility] [address] [id number] [address] [place] [address], [place] [address] Mar, [facility] [address] [id number] [address] [place] [address], [place] [address] Mar, [facility] [address] [id number] [address] [place] [address], [place] [address] Mar, [facility] [address] [id number] [address] [place] [address], [place] [address] Mar, [facility] [address] [id number] [address] [place] [address], [place] [address] Feb, [facility] [address] [id number] [address] [place] [address], [place] [address] Feb, [facility] [address] [id number] [address] [place] [address], [place] [address] Feb, [facility] [address] [id number] [address] [place] [address], [place] [address] Feb, [facility] [address] [id number] [address] [place] [address], [place] [address] Jan, [facility] [address] [id number] [address] [place] [address], [place] [address] Jan, [facility] [address] [id number] [address] [place] [address], [place] [address] Dec, [facility] [address] [id number] [address] [place] [address], [place] [address] Dec, [facility] [address] [id number] [address] [place] [address], [place] [address] Dec, [facility] [address] [id number] [address] [place] [address], [place] [address] Dec, [facility] [address] [id number] [address] [place] [address], [place] [address] Oct, [facility] [address] [id number] [address] [place] [address], [place] [address] Aug, [facility] [address] [id number] [address] [place] [address], [place] [address] Jul, [facility] [address] [id number] [address] [place] [address], [place] [address] June, [facility] [address] [id number] [address] [place] [address], [place] [address] June, [facility] [address] [id number] [address] [place] [address], [place] [address] June, [facility] [address] [id number] [address] [place] [address], [place] [address] June, [facility] [address] [id number] [address] [place] [address], [place] [address] June, [facility] [address] [id number] [address] [place] [address], [place] [address] May, [facility] [address] [id number] [address] [place] [address], [place] [address] May, [facility] [address] [id number] [address] [place] [address], [place] [address] 15 Apr, 2011 [facility] [address] [id number] [address] [place] [address], [place] [address] 13 Apr, 2011 [facility] [address] [id number] [address] [place] [address], [place] [address] Mar, [facility] [address] [id number] [address] [place] [address], [place] [address] Feb, [facility] [address] [id number] [address] [place] [address], [place] [address] Nov, [facility] [address] [id number] [address] [place] [address], [place] [address] Nov, [facility] [address] [id number] [address] [place] [address], [place] [address] Nov, [facility] [address] [id number] [address] [place] [address], [place] [address] Apr, [facility] [address] [id number] [address] [place] [address], [place] [address] Jan, [facility] [address] [id number] [address] [place] [address], [place] [address] Dec, [facility] [address] [id number] [address] [place] [address], [place] [address] Dec, [facility] [address] [id number] [address] [place] [address], [place] [address] 29 Nov, 2009 [facility] [address] [id number] [address] [place] [address], [place] [address] June, [facility] [address] [id number] [address] [place] [address], [place] [address] 29 Jan, 2009 [facility] [address] [id number] [address] [place] [address], [place] [address] Jan, [facility] [address] [id number] [address] [place] [id number] 23 Jan, 2009 [facility] [address] [id number] [address] [place] [id number] 22 Jan, 2009 [facility] [address] [id number] [address] [place] [id number] 16 Jan, 2009 [facility] [address] [id number] [address] [place] [id number] 15 Jan, 2009 [facility] [address] [id number] [address] [place] [id number] 15 Jan, 2009 [facility] [address] [id number] [address] [place] [id number] 11 Jan, 2009 [facility] [address] [id number] [address] [place] [id number] 11 Jan, 2009 [facility] [address] [id number] [address] [place] [id number] 10 Jan, 2009 [facility] [address] [id number] [address] [place] [id number] 04 Jan, 2009 [facility] [address] [id number] [address] [place] [id number] 02 Jan, 2009 [facility] [address] [id number] [address] [place] [id number] 25 Dec, 2008 [facility] [address] [id number] [address] [place] [id number] Dec, [facility] [address] [id number] [address] [place] [id number] 17 Dec, 2008 [facility] [address] [id number] [address] [place] [id number] 17 Dec, 2008 [facility] [address] [id number] [address] [place] [id number] 20 Nov, 2008 [facility] [address] [id number] [address] [place] [id number] 10 Oct, 2008 IMMUNIZATIONS No Known Immunizations [...] knee pseudogout s tatus post joint fluid analysis-[facility] 09/20/16 Hospitalization History kidneys--[facility] 11/2017 Hospitalization History Diverticulitis--[facility] 06/2018
--- OUTSIDE RECORDS SUMMARY | 2019-07-04 10:17 | XMS REPORT ---
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 5 Active 883856649 Problem End stage kidney disease N18.6 Activ e 60305272 Problem Gout of left knee due to renal impairment, unspe cified chronicity M10.362 Active 607376143 Problem Type 2 diabetes mellitus with hyperglycemia E11.65 Active 246473406759225 Problem Mood disorder F39 Active 468847 05 Problem Delayed gastric emptying K30 Activ e 741471142 Problem Kidney stone N20.0 Active 3928292 7 Problem Proteinuria R80.9 Active 01602350 Problem Sinusitis J32.9 Active 87288550 ALLERGIES No Information ENCOUNTERS Encounter Location Date Diagnosis [facility] [address] [facility] [id number] [address] [place] [phone] Oct, [facility] [address] [facility] [id number] [address] [place] [address] Jul, Type 2 diabetes mellitus wit h hyperglycemia E11.65 [facility] [address] [facility] [id number] [address] [place] [address] Jul, Type 2 diabetes mellitus wit h hyperglycemia E11.65 [facility] [address] [facility] [id number] [address] [place] [address] Jul, Type 2 diabetes mellitus wit h hyperglycemia E11.65 [facility] [address] [facility] [id number] [address] [place] [address] June, Type 2 diabetes mellitus wit h hyperglycemia E11.65 ; End stage kidney disease N18.6 and Callus L84 [facility] [address] [facility] [id number] [address] [place] [address] May, [facility] [address] [facility] [id number] [address] [place] [phone] May, Essential hypertension I10 [facility] [address] [facility] [id number] [address] [place] [address] Apr, [facility] [address] [facility] [id number] [address] [place] [address] Apr, Type 2 diabetes mellitus wit h hyperglycemia E11.65 and Essential hypertension I10 [facility] [address] [facility] [id number] [address] [place] [address] Apr, [facility] [address] [facility] [id number] [address] [place] [address] Apr, Type 2 diabetes mellitus wit h hyperglycemia E11.65 [facility] [address] [facility] [id number] [address] [place] [address] Apr, [facility] [address] [facility] [id number] [address] [place] [address] Mar, Type 2 diabetes mellitus wit h hyperglycemia E11.65 [facility] [address] [facility] [id number] [address] [place] [address] Mar, Type 2 diabetes mellitus wit h diabetic nephropathy E11.21 ; End stage kidney disease N18.6 ; Callus L84 and Onychomycosis B35.1 [facility] [address] [address] Feb, [facility] [address] [address] Feb, Sinusitis J32.9 ; Nausea R11 .0 and Otalgia H92.09 [place] [address] [address] Jan, [facility] [address] [address] Jan, [place] [address] [address] Jan, Essential hypertension I10 ; Gout, unspecified M10.9 ; Coronary atherosclerosis of unspecified type of vessel, [place] or graft I25.10 ; Mixed hyperlipidemia E78.2 and Type 2 diabetes mellitus with hyperglycemia E11.65 [place] [address] [address] Dec, Chronic kidney disease, stag e 3 N18.3 ; Proteinuria R80.9 ; Diabetes mellitus E11.9 ; Acute kidney failure, unspecified N17.9 and Mixed hyperlipidemia E78.2 [place] [address] [address] 16 Dec, 2017 Chronic kidney disease, stag e 3 N18.3 ; Essential hypertension I10 ; Proteinuria R80.9 ; Diabetes mellitus E11.9 ; Kidney stone N20.0 ; Acute kidney failure, unspecified N17.9 ; Edema R60.9 and Mixed hyperlipidemia E78.2 [place] [address] [address] Dec, Type 2 diabetes mellitus wit h hyperglycemia E11.65 [place] [address] [address] Dec, Chronic kidney disease, stag e 3 N18.3 [place] [address] [place] [address] Dec, Type 2 diabetes mellitus wit h hyperglycemia E11.65 [place] [address] [place] [id number] [place] [address] Dec, [place] [address] [place] [id number] [address] [place] [address] Nov, Type 2 diabetes mellitus wit h hyperglycemia E11.65 [place] [address] [place] [id number] [place] [address] Nov, [place] [address] [place] [id number] [place] [address] Nov, Chronic kidney disease, stag e V (very severe) N18.5 ; Type 2 diabetes mellitus with hyperglycemia E11.65 ; Encounter for immunization Z23 and Delayed gastric emptying K30 [place] [id number] [place] [address] Nov, [place] [address] [address] Oct, Essential hypertension I10 ; Coronary atherosclerosis of unspecified type of vessel, [place] or graft I25.10 ; Type 2 diabetes mellitus with hyperglycemia E11.65 and Gout, unspecified M10.9 [place] [address] [place] [id number] [place] [address] Oct, Chronic kidney disease, stag e V (very severe) N18.5 [place] [address] [place] [id number] [address] [place] [address] Oct, Mixed hyperlipidemia E78.2 [place] [address] [place] [id number] [address] [place] [address] Sep, Type 2 diabetes mellitus wit h hyperglycemia E11.65 [place] [address] [place] [id number] [address] [place] [address] Sep, Mixed hyperlipidemia E78.2 [place] [address] [place] [id number] [address] [place] [address] Sep, Chronic kidney disease, stag e V (very severe) N18.5 [place] [address] [address] Sep, Type 2 diabetes mellitus wit h hyperglycemia E11.65 and Essential hypertension I10 [place] [address] [place] [id number] [place] [address] Sep, Type 2 diabetes mellitus wit h hyperglycemia E11.65 [place] [address] [address] Aug, Gout, unspecified M10.9 ; Ga stroesophageal reflux disease, esophagitis presence not specified K21.9 ; Mood disorder F39 and Coronary atherosclerosis of unspecified type of vessel, [place] or graft I25.10 [place] [address] [address] Aug, [place] [address] [address] June, Type 2 diabetes mellitus wit h hyperglycemia E11.65 [place] [address] [address] May, Mood disorder F39 ; Gastroes ophageal reflux disease, esophagitis presence not specified K21.9 ; Gout, unspecified M10.9 ; Coronary atherosclerosis of unspecified type of vessel, [place] or graft I25.10 and Type 2 diabetes mellitus with hyperglycemia E11.65 [place] [address] [place] [id number] [address] [place] [address] May, Type 2 diabetes mellitus wit h hyperglycemia E11.65 [place] [address] [place] [id number] [address] [place] [address] Apr, Diabetes E11.9 and Mood diso rder F39 [place] [address] [place] [id number] [address] [place] [address] 15 Mar, 2017 Primary osteoarthritis of le ft knee M17.12 and Tear of lateral meniscus of left knee, unspecified tear type, unspecified whether old or current tear, initial encounter S83.282A [facility] [address] [facility] [id number] [address] [place] [address] Feb, Mood disorder F39 [facility] [address] [facility] [id number] [address] [place] [address] Feb, Pseudogout M11.20 [facility] [address] [facility] [id number] [address] [place] [address] Jan, Other retirement (current) dr anna therapy Z79.899 [facility] [address] [facility] [id number] [address] [place] [address] Jan, [facility] [address] [facility] [id number] [address] [place] [address] Jan, Pseudogout M11.20 ; Type 2 d iabetes mellitus with hyperglycemia E11.65 and Other retirement (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 [facility] [address] [facility] [id number] [address] [place] [address] Jan, Gout of left knee due to eloisa al impairment, unspecified chronicity M10.362 ; Type 2 diabetes mellitus with diabetic nephropathy E11.21 ; Synovial cyst of popliteal space [Mejia], left knee M71.22 and Low back pain M54.5 [facility] [address] [facility] [id number] [address] [place] [address] Dec, Pseudogout M11.20 [facility] [address] [facility] [id number] [address] [place] [address] 14 Dec, 2016 [facility] [address] [facility] [id number] [address] [place] [address] 13 Dec, 2016 Type 2 diabetes mellitus wit h diabetic nephropathy E11.21 and Right anterior knee pain M25.561 [facility] [address] [facility] [id number] [address] [place] [address] Nov, Pseudogout M11.20 [facility] [address] [facility] [id number] [address] [place] [address] Nov, Pseudogout M11.20 ; Chronic kidney disease, stage 3 N18.3 ; Mixed hyperlipidemia E78.2 ; Gout, unspecified M10.9 ; Coronary atherosclerosis of unspecified type of vessel, [place] or graft I25.10 ; Mood disorder F39 and Gastroesophageal reflux disease, esophagitis presence not specified K21.9 [facility] [address] [place] [id number] [address] [place] [address] Nov, [facility] [address] [address] Oct, Pseudogout M11.20 [place] [address] [place] [id number] [place] [address] Sep, Pseudogout M11.20 [place] [address] [place] [id number] [place] [address] Sep, Pseudogout M11.20 [place] [address] [address] Sep, [facility] [address] [place] [id number] [place] [id number] Aug, [facility] [address] [place] [id number] [place] [address] Aug, Diabetes E11.9 ; Chronic kid tahir disease, stage 3 N18.3 ; Hyperuricemia E79.0 ; Mixed hyperlipidemia E78.2 ; Gastroesophageal reflux disease, esophagitis presence not specified K21.9 ; Gout, unspecified M10.9 ; Coronary atherosclerosis of unspecified type of vessel, [place] or graft I25.10 and Mood disorder F39 [facility] [address] [place] [id number] [address] [place] [address] June, [facility] [address] [place] [id number] [place] [address] June, [facility] [address] [place] [id number] [address] [place] [address] June, [place] [address] [id number] [address] [place] [phone] May, Chronic renal failure, stage 3 (moderate) N18.3 [facility] [address] [id number] [address] [place] [phone] May, Diabetes E11.9 [facility] [address] [id number] [address] [place] [address] May, [facility] [address] [facility] [id number] [address] [place] [phone] Apr, [facility] [address] [id number] [address] [place] [phone] Apr, [facility] [address] [facility] [id number] [address] [place] [address] Apr, Cellulitis of right lower ex tremity L03.115 and Diabetes E11.9 [facility] [address] [facility] [id number] [address] [place] [address] Apr, Type 2 diabetes mellitus wit h hyperglycemia E11.65 [facility] [address] [id number] [address] [place] [address] Mar, Cellulitis of right lower ex tremity L03.115 and Low back pain M54.5 [facility] [address] [facility] [id number] [address] [place] [address] Mar, [facility] [address] [facility] [id number] [address] [place] [address] Mar, Cellulitis of right lower ex tremity L03.115 [facility] [address] [facility] [id number] [address] [place] [address] Mar, Cellulitis of right lower ex tremity L03.115 [facility] [address] [facility] [id number] [address] [place] [address] Feb, Cellulitis of right lower ex tremity L03.115 [facility] [address] [id number] [address] [place] [address] Feb, Cellulitis of right lower ex tremity L03.115 [place] [address] [id number] [address] [place] [phone] Feb, [facility] [address] [id number] [address] [place] [address] Feb, Leukocytosis, unspecified ty pe D72.829 ; Chronic renal failure, stage 3 (moderate) N18.3 and Type 2 diabetes mellitus with hyperglycemia E11.65 [place] [address] [id number] [address] [place] [address] Feb, Leukocytosis, unspecified ty pe D72.829 [place] [address] [facility] [id number] [address] [place] [address] Feb, [place] [address] [facility] [id number] [address] [place] [address] Feb, Cellulitis of right lower ex tremity L03.115 ; Thrush B37.0 ; Gout of left knee due to renal impairment, unspecified chronicity M10.362 and Chronic renal failure, stage 3 (moderate) N18.3 [place] [address] [facility] [id number] [address] [place] [address] Feb, [place] [address] [facility] [id number] [address] [place] [address] Feb, Right foot infection L08.9 ; Type 2 diabetes mellitus with hyperglycemia E11.65 ; Arthralgia of left knee M25.562 ; Chronic kidney disease, stage 3 N18.3 and Diabetes E11.9 [place] [address] [id number] [address] [place] [address] Feb, [place] [address] [facility] [id number] [address] [place] [address] Feb, Diabetes E11.9 ; Arthralgia of left knee M25.562 and Thrush B37.0 [place] [address] [facility] [id number] [place] [address] Jan, [place] [address] [address] Jan, Type 2 diabetes mellitus wit h hyperglycemia E11.65 ; Chronic renal failure, stage 3 (moderate) N18.3 and Leukocytosis, unspecified type D72.829 [place] [address] [address] Jan, Type 2 diabetes mellitus wit h hyperglycemia E11.65 [place] [address] [place] [id number] [place] [address] Dec, Gout of left knee due to eloisa al impairment, unspecified chronicity M10.362 [place] [address] [address] Dec, Gout of left knee due to eloisa al impairment, unspecified chronicity M10.362 and Diabetes E11.9 [place] [address] [address] Dec, [place] [address] [address] Dec, [facility] [place] [address] [address] Dec, [place] [address] [address] Dec, Chronic kidney disease, stag e 3 N18.3 ; Type 2 diabetes mellitus with diabetic nephropathy E11.21 ; Type 2 diabetes mellitus with hyperglycemia E11.65 and 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 [facility] [address] [address] 05 Dec, 2015 Leukocytosis, unspecified ty pe D72.829 ; Chronic renal failure, stage 3 (moderate) N18.3 and Nausea R11.0 [place] [address] [address] Nov, [facility] [address] [id number] [address] [place] [address] Jul, [facility] [address] [facility] [id number] [address] [place] [address] Jul, Diabetes E11.9 ; Low back pa in M54.5 and Other chronic pain G89.29 [facility] [address] [facility] [id number] [address] [place] [address] June, [facility] [address] [facility] [id number] [address] [place] [address] June, [facility] [address] [facility] [id number] [address] [place] [address] Jan, Viral illness B34.9 [facility] [address] [facility] [id number] [address] [place] [address] Jan, Type 2 diabetes mellitus wit h hyperglycemia E11.65 ; Pain in right foot M79.671 and Localized edema R60.0 [facility] [address] [id number] [address] [place] [id number] Jan, [facility] [address] [facility] [id number] [address] [place] [address] Dec, Right foot pain M79.671 ; In somnia, unspecified type G47.00 and Diabetes E11.9 [facility] [address] [facility] [id number] [address] [place] [address] Dec, Pain in right foot M79.671 [facility] [address] [id number] [address] [place] [address] Nov, [facility] [address] [facility] [id number] [address] [place] [address] Sep, [facility] [address] [facility] [id number] [address] [place] [address] Sep, Diabetes mellitus, type II 2 50.00 [facility] [address] [facility] [id number] [address] [place] [id number] 14 May, 2014 [facility] [address] [id number] [address] [place] [address], [place] [address] 13 May, 2014 [facility] [address] [id number] [address] [place] [address], [place] [address] 19 Apr, 2014 [facility] [address] [id number] [address] [place] [address], [place] [address] 19 Apr, 2014 [facility] [address] [id number] [address] [place] [address], [place] [address] 16 Apr, 2014 [facility] [address] [id number] [address] [place] [address], [place] [address] 16 Apr, 2014 [facility] [address] [id number] [address] [place] [address], [place] [address] 12 Apr, 2014 [facility] [address] [id number] [address] [place] [address], [place] [address] 12 Apr, 2014 [facility] [address] [id number] [address] [place] [address], [place] [address] 05 Apr, 2014 [facility] [address] [id number] [address] [place] [address], [place] [address] 05 Apr, 2014 [facility] [address] [id number] [address] [place] [address], [place] [address] 18 Jan, 2014 [facility] [address] [id number] [address] [place] [address], [place] [address] 18 Jan, 2014 [facility] [address] [id number] [address] [place] [address], [place] [address] 15 Jan, 2014 [facility] [address] [id number] [address] [place] [address], [place] [address] 15 Jan, 2014 [facility] [address] [id number] [address] [place] [address], [place] [address] 10 Dec, 2013 [facility] [address] [id number] [address] [place] [address], [place] [address] 10 Dec, 2013 [facility] [address] [id number] [facility] [place] [address] Nov, [facility] [address] [id number] [address] [place] [address], [place] [address] Nov, [facility] [address] [id number] [facility] [place] [address] Oct, [facility] [address] [id number] [address] [place] [address], [place] [address] Oct, [facility] [address] [id number] [address] [place] [address], [place] [address] 05 Oct, 2013 [facility] [address] [id number] [address] [place] [address], [place] [address] Oct, [facility] [address] [id number] [address] [place] [address], [place] [address] Sep, [facility] [address] [id number] [address] [place] [address], [place] [address] Sep, [facility] [address] [id number] [address] [place] [address], [place] [address] Sep, [facility] [address] [id number] [address] [place] [address], [place] [address] Sep, [facility] [address] [id number] [address] [place] [address], [place] [address] Sep, [facility] [address] [id number] [address] [place] [address], [place] [address] Sep, [facility] [address] [id number] [address] [place] [address], [place] [address] Sep, [facility] [address] [id number] [address] [place] [address], [place] [address] Sep, [facility] [address] [id number] [address] [place] [address], [place] [address] Sep, [facility] [address] [id number] [address] [place] [address], [place] [address] Sep, [facility] [address] [id number] [facility] [place] [address] Sep, [facility] [address] [id number] [address] [place] [address], [place] [address] Sep, [facility] [address] [id number] [facility] [place] [address] Aug, [facility] [address] [id number] [address] [place] [address], [place] [address] Aug, [facility] [address] [id number] [address] [place] [address], [place] [address] Aug, [facility] [address] [address] [id number] [address] [place] [address], [place] [address] Aug, [facility] [address] [id number] [address] [place] [address], [place] [address] June, [facility] [address] [id number] [address] [place] [address], [place] [address] May, [facility] [address] [id number] [address] [place] [address], [place] [address] May, [facility] [address] [id number] [address] [place] [address], [place] [address] May, [facility] [address] [id number] [address] [place] [address], [place] [address] 18 May, 2013 [facility] [address] [id number] [address] [place] [address], [place] [address] May, [facility] [address] [id number] [address] [place] [address], [place] [address] May, [facility] [address] [id number] [address] [place] [address], [place] [address] 16 May, 2013 [facility] [address] [id number] [address] [place] [address], [place] [address] May, [facility] [address] [id number] [address] [place] [address], [place] [address] 14 May, 2013 [facility] [address] [id number] [address] [place] [address], [place] [address] 14 May, 2013 [facility] [address] [id number] [address] [place] [address], [place] [address] 14 May, 2013 [facility] [address] [id number] [address] [place] [address], [place] [address] 14 May, 2013 [facility] [address] [id number] [address] [place] [address], [place] [address] Apr, [facility] [address] [id number] [address] [place] [address], [place] [address] Apr, [facility] [address] [id number] [address] [place] [address], [place] [address] Mar, [facility] [address] [id number] [address] [place] [address], [place] [address] Mar, [facility] [address] [id number] [address] [place] [address], [place] [address] Dec, [facility] [address] [id number] [address] [place] [address], [place] [address] Dec, [facility] [address] [id number] [address] [place] [address], [place] [address] Dec, [facility] [address] [id number] [address] [place] [address], [place] [address] Dec, [facility] [address] [id number] [address] [place] [address], [place] [address] Nov, [facility] [address] [id number] [address] [place] [address], [place] [address] Nov, [facility] [address] [id number] [address] [place] [address], [place] [address] 30 Oct, 2012 [facility] [address] [id number] [address] [place] [address], [place] [address] Oct, [facility] [address] [id number] [address] [place] [address], [place] [address] Aug, [facility] [address] [id number] [address] [place] [address], [place] [address] Aug, [facility] [address] [id number] [address] [place] [address], [place] [address] Aug, [facility] [address] [id number] [address] [place] [address], [place] [address] Jul, [facility] [address] [id number] [address] [place] [address], [place] [address] June, [facility] [address] [id number] [address] [place] [address], [place] [address] June, [facility] [address] [id number] [address] [place] [address], [place] [address] Apr, [facility] [address] [id number] [address] [place] [address], [place] [address] Mar, [facility] [address] [id number] [address] [place] [address], [place] [address] Mar, [facility] [address] [id number] [address] [place] [address], [place] [address] Mar, [facility] [address] [id number] [address] [place] [address], [place] [address] Mar, [facility] [address] [id number] [address] [place] [address], [place] [address] Mar, [facility] [address] [id number] [address] [place] [address], [place] [address] Feb, [facility] [address] [id number] [address] [place] [address], [place] [address] Feb, [facility] [address] [id number] [address] [place] [address], [place] [address] Feb, [facility] [address] [id number] [address] [place] [address], [place] [address] Feb, [facility] [address] [id number] [address] [place] [address], [place] [address] Jan, [facility] [address] [id number] [address] [place] [address], [place] [address] Jan, [facility] [address] [id number] [address] [place] [address], [place] [address] Dec, [facility] [address] [id number] [address] [place] [address], [place] [address] Dec, [facility] [address] [id number] [address] [place] [address], [place] [address] Dec, [facility] [address] [id number] [address] [place] [address], [place] [address] Dec, [facility] [address] [id number] [address] [place] [address], [place] [address] Oct, [facility] [address] [id number] [address] [place] [address], [place] [address] Aug, [facility] [address] [id number] [address] [place] [address], [place] [address] Jul, [facility] [address] [id number] [address] [place] [address], [place] [address] June, [facility] [address] [id number] [address] [place] [address], [place] [address] June, [facility] [address] [id number] [address] [place] [address], [place] [address] June, [facility] [address] [id number] [address] [place] [address], [place] [address] June, [facility] [address] [id number] [address] [place] [address], [place] [address] June, [facility] [address] [id number] [address] [place] [address], [place] [address] May, [facility] [address] [id number] [address] [place] [address], [place] [address] 23 May, 2011 [facility] [address] [id number] [address] [place] [address], [place] [address] 15 Apr, 2011 [facility] [address] [id number] [address] [place] [address], [place] [address] 13 Apr, 2011 [facility] [address] [id number] [address] [place] [address], [place] [address] Mar, [facility] [address] [id number] [address] [place] [address], [place] [address] Feb, [facility] [address] [id number] [address] [place] [address], [place] [address] 26 Nov, 2010 [facility] [address] [id number] [address] [place] [address], [place] [address] 13 Nov, 2010 [facility] [address] [id number] [address] [place] [address], [place] [address] Nov, [facility] [address] [id number] [address] [place] [address], [place] [address] 17 Apr, 2010 [facility] [address] [id number] [address] [place] [address], [place] [address] Jan, [facility] [address] [id number] [address] [place] [address], [place] [address] Dec, [facility] [address] [id number] [address] [place] [address], [place] [address] Dec, [facility] [address] [id number] [address] [place] [address], [place] [address] Nov, [facility] [address] [id number] [address] [place] [address], [place] [address] June, [facility] [address] [id number] [address] [place] [address], [place] [address] 29 Jan, 2009 [facility] [address] [id number] [address] [address] 28 Jan, 2009 [facility] [address] [id number] [address] [place] [address], [place] [address] 23 Jan, 2009 [facility] [address] [id number] [address] [place] [phone] 22 Jan, 2009 [facility] [address] [id number] [address] [place] [phone] 16 Jan, 2009 [facility] [address] [id number] [address] [place] [phone] 15 Jan, 2009 [facility] [address] [id number] [address] [place] [address] 15 Jan, 2009 [facility] [address] [id number] [address] [place] [phone] 11 Jan, 2009 [facility] [address] [id number] [address] [place] [phone] 11 Jan, 2009 [facility] [address] [id number] [address] [place] [address] 10 Jan, 2009 [facility] [address] [id number] [address] [place] [phone] 04 Jan, 2009 [facility] [address] [id number] [address] [place] [phone] 02 Jan, 2009 [facility] [address] [id number] [address] [place] [phone] 25 Dec, 2008 [facility] [address] [id number] [address] [place] [phone] 19 Dec, 2008 [facility] [address] [id number] [address] [place] [phone] 17 Dec, 2008 [facility] [address] [id number] [address] [place] [phone] 17 Dec, 2008 [facility] [address] [id number] [address] [place] [phone] 20 Nov, 2008 [facility] [address] [id number] [address] [place] [address] 10 Oct, 2008 IMMUNIZATIONS No Known Immunizations SOCIAL HISTORY Never Assessed REASON FOR VISIT Prior Authorization Request PLAN OF CARE VITAL SIGNS MEDICATIONS Medication Instructions Dosage Frequency Start Date End Date Duration S li Baronuvia 25 MG Orally Once a day 1 tablet 24h Apr, 30 days Active RESULTS No Results PROCEDURES [...]
--- OUTSIDE RECORDS SUMMARY | 2019-07-04 10:18 | XMS REPORT ---
Author Author Charles Perez Doctor Organization [facility] Address Unknown Phone Unavailable Care Team Providers Care Air Brush Artist Name Role Phone Migration, Doctor Unavailable Unavailable PROBLEMS Type Condition ICD9-CM Code [id number] Code Onset Dates Condition S tatus SNOMED Code Problem Hypertriglyceridemia E78.1 Active 134581424 Problem Coronary atherosclerosis of unspecified type of vessel, ely shoshone or graft I25.10 Active 456609617 Problem Gastroesophageal reflux disease, esophagitis pre sence not specified K21.9 Active 924305886 Problem oysterman 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 Active 839395647 Problem Insomnia, unspecified G47.00 Active 456305543 Problem Chronic kidney disease, stage 3 N18.3 Active 479417082 Problem 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 440167875 Problem Primary osteoarthritis of left knee M17.12 Active 406528042090554 Problem Essential hypertension I10 Active 92024291 Problem Chronic kidney disease, stage V (very severe) N18. 5 Active 842204967 Problem End stage kidney disease N18.6 Activ e 79907601 Problem Gout of left knee due to renal impairment, unspe cified chronicity M10.362 Active 572066905 Problem Type 2 diabetes mellitus with hyperglycemia E11.65 Active 642502251038793 Problem Mood disorder F39 Active 814150 05 Problem Delayed gastric emptying K30 Activ e 096713997 Problem Kidney stone N20.0 Active 2692638 7 Problem Proteinuria R80.9 Active 94451430 Problem Sinusitis J32.9 Active 72014942 ALLERGIES No Information ENCOUNTERS Encounter Location Date Diagnosis [facility] [address] [facility] [id number] [address] [place] [address] Aug, [facility] [address] [facility] [id number] [address] [place] [address] Jul, Type 2 diabetes mellitus wit h hyperglycemia E11.65 [facility] [address] [facility] [id number] [address] [place] [address] Jul, Type 2 diabetes mellitus wit h hyperglycemia E11.65 [facility] [address] [facility] [id number] [address] [place] [address] Jul, Type 2 diabetes mellitus wit h hyperglycemia E11.65 [facility] [address] [facility] [id number] [address] [place] [address] June, Type 2 diabetes mellitus wit h hyperglycemia E11.65 ; End stage kidney disease N18.6 and Callus L84 [facility] [address] [facility] [id number] [address] [place] [address] May, [facility] [address] [facility] [id number] [address] [place] [address] May, Essential hypertension I10 [facility] [address] [facility] [id number] [address] [place] [address] Apr, [facility] [address] [facility] [id number] [address] [place] [address] Apr, Type 2 diabetes mellitus wit h hyperglycemia E11.65 and Essential hypertension I10 [facility] [address] [facility] [id number] [address] [place] [address] Apr, [facility] [address] [facility] [id number] [address] [place] [address] Apr, Type 2 diabetes mellitus wit h hyperglycemia E11.65 [facility] [address] [facility] [id number] [address] [place] [address] Apr, [facility] [address] [facility] [id number] [address] [place] [address] Mar, Type 2 diabetes mellitus wit h hyperglycemia E11.65 [facility] [address] [facility] [id number] [address] [place] [address] Mar, Type 2 diabetes mellitus wit h diabetic nephropathy E11.21 ; End stage kidney disease N18.6 ; Callus L84 and Onychomycosis B35.1 [facility] [address] [facility] [id number] [address] [place] [address] Feb, [facility] [address] [place] [id number] [address] [place] [address] Feb, Sinusitis J32.9 ; Nausea R11 .0 and Otalgia H92.09 [facility] [address] [address] Jan, [place] [address] [address] Jan, [place] [address] [address] Jan, Essential hypertension I10 ; Gout, unspecified M10.9 ; Coronary atherosclerosis of unspecified type of vessel, ely shoshone or graft I25.10 ; Mixed hyperlipidemia E78.2 and Type 2 diabetes mellitus with hyperglycemia E11.65 [place] [address] [address] Dec, Chronic kidney disease, stag e 3 N18.3 ; Proteinuria R80.9 ; Diabetes mellitus E11.9 ; Acute kidney failure, unspecified N17.9 and Mixed hyperlipidemia E78.2 [place] [address] [address] 16 Dec, 2017 Chronic kidney disease, stag e 3 N18.3 ; Essential hypertension I10 ; Proteinuria R80.9 ; Diabetes mellitus E11.9 ; Kidney stone N20.0 ; Acute kidney failure, unspecified N17.9 ; Edema R60.9 and Mixed hyperlipidemia E78.2 [place] [address] [place] [id number] [address] [place] [address] 14 Dec, 2017 Type 2 diabetes mellitus wit h hyperglycemia E11.[address] [address] 14 Dec, 2017 Chronic kidney disease, stag e 3 N18.3 [place] [address] [address] 06 Dec, 2017 Type 2 diabetes mellitus wit h hyperglycemia E11.65 [place] [address] [place] [id number] [address] [place] [address] Dec, [place] [address] [address] Nov, Type 2 diabetes mellitus wit h hyperglycemia E11.65 [place] [address] [place] [id number] [place] [address] Nov, [place] [address] [address] Nov, Chronic kidney disease, stag e V (very severe) N18.5 ; Type 2 diabetes mellitus with hyperglycemia E11.65 ; Encounter for immunization Z23 and Delayed gastric emptying K30 [place] [address] [place] [id number] [place] [address] Nov, [place] [address] [address] Oct, Essential hypertension I10 ; Coronary atherosclerosis of unspecified type of vessel, ely shoshone or graft I25.10 ; Type 2 diabetes mellitus with hyperglycemia E11.65 and Gout, unspecified M10.9 [place] [address] [address] 07 Oct, 2017 Chronic kidney disease, stag e V (very severe) N18.5 [place] [address] [address] Oct, Mixed hyperlipidemia E78.2 [place] [address] [place] [id number] [place] [address] Sep, Type 2 diabetes mellitus wit h hyperglycemia E11.65 [place] [address] [address] Sep, Mixed hyperlipidemia E78.2 [place] [address] [place] [id number] [place] [address] Sep, Chronic kidney disease, stag e V (very severe) N18.5 [place] [address] [address] 15 Sep, 2017 Type 2 diabetes mellitus wit h hyperglycemia E11.65 and Essential hypertension I10 [place] [address] [address] Sep, Type 2 diabetes mellitus wit h hyperglycemia E11.65 [place] [address] [address] 16 Aug, 2017 Gout, unspecified M10.9 ; Ga stroesophageal reflux disease, esophagitis presence not specified K21.9 ; Mood disorder F39 and Coronary atherosclerosis of unspecified type of vessel, ely shoshone or graft I25.10 [place] [address] [address] Aug, [place] [address] [address] June, Type 2 diabetes mellitus wit h hyperglycemia E11.65 [place] [address] [address] May, Mood disorder F39 ; Gastroes ophageal reflux disease, esophagitis presence not specified K21.9 ; Gout, unspecified M10.9 ; Coronary atherosclerosis of unspecified type of vessel, ely shoshone or graft I25.10 and Type 2 diabetes mellitus with hyperglycemia E11.65 [place] [address] [address] May, Type 2 diabetes mellitus wit h hyperglycemia E11.65 [place] [address] [address] Apr, Diabetes E11.9 and Mood diso rder F39 [place] [address] [address] 15 Mar, 2017 Primary osteoarthritis of le ft knee M17.12 and Tear of lateral meniscus of left knee, unspecified tear type, unspecified whether old or current tear, initial encounter S83.282A [place] [address] [address] Feb, Mood disorder F39 [facility] [address] [facility] [id number] [address] [place] [address] Feb, Pseudogout M11.20 [facility] [address] [facility] [id number] [address] [place] [address] Jan, Other terminal carman (current) dr ug therapy Z79.899 [facility] [address] [id number] [address] [place] [address] Jan, [facility] [address] [facility] [id number] [address] [place] [address] Jan, Pseudogout M11.20 ; Type 2 d iabetes mellitus with hyperglycemia E11.65 and Other terminal carman (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 [facility] [address] [facility] [id number] [address] [place] [address] Jan, Gout of left knee due to eloisa al impairment, unspecified chronicity M10.362 ; Type 2 diabetes mellitus with diabetic nephropathy E11.21 ; Synovial cyst of popliteal space [Mejia], left knee M71.22 and Low back pain M54.5 [place] [address] [facility] [id number] [address] [place] [address] Dec, Pseudogout M11.20 [place] [address] [facility] [id number] [address] [place] [address] Dec, [place] [address] [facility] [id number] [address] [place] [address] 13 Dec, 2016 Type 2 diabetes mellitus wit h diabetic nephropathy E11.21 and Right anterior knee pain M25.561 [place] [address] [facility] [id number] [address] [place] [address] Nov, Pseudogout M11.20 [facility] [address] [facility] [id number] [address] [place] [address] Nov, Pseudogout M11.20 ; Chronic kidney disease, stage 3 N18.3 ; Mixed hyperlipidemia E78.2 ; Gout, unspecified M10.9 ; Coronary atherosclerosis of unspecified type of vessel, ely shoshone or graft I25.10 ; Mood disorder F39 and Gastroesophageal reflux disease, esophagitis presence not specified K21.9 [facility] [address] [facility] [id number] [address] [place] [address] Nov, [facility] [address] [facility] [id number] [address] [place] [address] Oct, Pseudogout M11.20 [facility] [address] [place] [id number] [address] [place] [address] Sep, Pseudogout M11.20 [facility] [address] [place] [id number] [address] [place] [address] Sep, Pseudogout M11.20 [facility] [address] [place] [id number] [address] [place] [address] Sep, [facility] [address] [place] [id number] [place] [id number] Aug, [facility] [address] [place] [id number] [address] [place] [address] Aug, Diabetes E11.9 ; Chronic kid tahir disease, stage 3 N18.3 ; Hyperuricemia E79.0 ; Mixed hyperlipidemia E78.2 ; Gastroesophageal reflux disease, esophagitis presence not specified K21.9 ; Gout, unspecified M10.9 ; Coronary atherosclerosis of unspecified type of vessel, ely shoshone or graft I25.10 and Mood disorder F39 [facility] [address] [facility] [id number] [address] [place] [address] June, [facility] [address] [place] [id number] [address] [place] [address] June, [facility] [address] [facility] [id number] [address] [place] [address] June, [facility] [address] [facility] [id number] [address] [place] [address] May, Chronic renal failure, stage 3 (moderate) N18.3 [facility] [address] [id number] [address] [place] [address] May, Diabetes E11.9 [facility] [address] [id number] [address] [place] [address] May, [facility] [address] [id number] [address] [place] [address] Apr, [facility] [address] [id number] [address] [place] [address] Apr, [facility] [address] [id number] [address] [place] [address] Apr, Cellulitis of right lower ex tremity L03.115 and Diabetes E11.9 [facility] [address] [facility] [id number] [address] [place] [address] Apr, Type 2 diabetes mellitus wit h hyperglycemia E11.65 [facility] [address] [facility] [id number] [address] [place] [address] Mar, Cellulitis of right lower ex tremity L03.115 and Low back pain M54.5 [place] [address] [facility] [id number] [address] [place] [address] Mar, [facility] [address] [facility] [id number] [address] [place] [address] Mar, Cellulitis of right lower ex tremity L03.115 [facility] [address] [facility] [id number] [address] [place] [address] Mar, Cellulitis of right lower ex tremity L03.115 [facility] [address] [facility] [id number] [address] [place] [address] Feb, Cellulitis of right lower ex tremity L03.115 [facility] [address] [facility] [id number] [address] [place] [address] Feb, Cellulitis of right lower ex tremity L03.115 [place] [address] [id number] [address] [place] [address] Feb, [facility] [address] [id number] [address] [place] [address] Feb, Leukocytosis, unspecified ty pe D72.829 ; Chronic renal failure, stage 3 (moderate) N18.3 and Type 2 diabetes mellitus with hyperglycemia E11.65 [place] [address] [id number] [address] [place] [address] Feb, Leukocytosis, unspecified ty pe D72.829 [place] [address] [id number] [address] [place] [address] Feb, [place] [address] [id number] [address] [place] [address] Feb, Cellulitis of right lower ex tremity L03.115 ; Thrush B37.0 ; Gout of left knee due to renal impairment, unspecified chronicity M10.362 and Chronic renal failure, stage 3 (moderate) N18.3 [place] [address] [id number] [address] [place] [address] Feb, [place] [address] [id number] [address] [place] [address] Feb, Right foot infection L08.9 ; Type 2 diabetes mellitus with hyperglycemia E11.65 ; Arthralgia of left knee M25.562 ; Chronic kidney disease, stage 3 N18.3 and Diabetes E11.9 [place] [address] [id number] [address] [place] [address] Feb, [place] [address] [id number] [address] [place] [address] Feb, Diabetes E11.9 ; Arthralgia of left knee M25.562 and Thrush B37.0 [place] [address] [id number] [address] [place] [address] Jan, [place] [address] [place] [id number] [place] [address] 08 Jan, 2016 Type 2 diabetes mellitus wit h hyperglycemia E11.65 ; Chronic renal failure, stage 3 (moderate) N18.3 and Leukocytosis, unspecified type D72.829 [facility] [address] [address] Jan, Type 2 diabetes mellitus wit h hyperglycemia E11.65 [place] [address] [address] Dec, Gout of left knee due to eloisa al impairment, unspecified chronicity M10.362 [place] [address] [address] Dec, Gout of left knee due to eloisa al impairment, unspecified chronicity M10.362 and Diabetes E11.9 [place] [address] [address] Dec, [place] [address] [address] Dec, [facility] [address] [address] Dec, [place] [address] [address] Dec, Chronic kidney disease, stag e 3 N18.3 ; Type 2 diabetes mellitus with diabetic nephropathy E11.21 ; Type 2 diabetes mellitus with hyperglycemia E11.65 and oysterman 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 [facility] [address] [address] Dec, Leukocytosis, unspecified ty pe D72.829 ; Chronic renal failure, stage 3 (moderate) N18.3 and Nausea R11.0 [facility] [address] [address] Nov, [place] [address] [address] Jul, [facility] [address] [facility] [id number] [address] [place] [address] Jul, Diabetes E11.9 ; Low back pa in M54.5 and Other chronic pain G89.29 [facility] [address] [id number] [address] [place] [address] June, [facility] [address] [facility] [id number] [address] [place] [address] June, [facility] [address] [id number] [address] [place] [address] Jan, Viral illness B34.9 [facility] [address] [facility] [id number] [address] [place] [address] Jan, Type 2 diabetes mellitus wit h hyperglycemia E11.65 ; Pain in right foot M79.671 and Localized edema R60.0 [facility] [address] [facility] [id number] [address] [place] [address] Jan, [facility] [address] [facility] [id number] [address] [place] [address] Dec, Right foot pain M79.671 ; In somnia, unspecified type G47.00 and Diabetes E11.9 [facility] [address] [facility] [id number] [address] [place] [address] Dec, Pain in right foot M79.671 [facility] [address] [id number] [address] [place] [address] Nov, [facility] [address] [facility] [id number] [address] [place] [address] Sep, [facility] [address] [facility] [id number] [address] [place] [address] Sep, Diabetes mellitus, type II 2 50.00 [facility] [address] [facility] [id number] [address] [place] [address] May, [facility] [address] [id number] [address] [place] [address] [place] [address] 13 May, 2014 [facility] [address] [id number] [address] [place] [address], [place] [address] 19 Apr, 2014 [facility] [address] [id number] [address] [place] [address], [place] [address] 19 Apr, 2014 [facility] [address] [id number] [address] [place] [address], [place] [address] 16 Apr, 2014 [facility] [address] [id number] [address] [place] [address], [place] [address] 16 Apr, 2014 [facility] [address] [id number] [address] [place] [address], [place] [address] 12 Apr, 2014 [facility] [address] [id number] [address] [place] [address], [place] [address] 12 Apr, 2014 [facility] [address] [id number] [address] [place] [address], [place] [address] 05 Apr, 2014 [facility] [address] [id number] [address] [place] [address], [place] [address] 05 Apr, 2014 [facility] [address] [id number] [address] [place] [address], [place] [address] 18 Jan, 2014 [facility] [address] [id number] [address] [place] [address], [place] [address] 18 Jan, 2014 [facility] [address] [id number] [address] [place] [address], [place] [address] 15 Jan, 2014 [facility] [address] [id number] [address] [place] [address], [place] [address] 15 Jan, 2014 [facility] [address] [id number] [address] [place] [address], [place] [address] 10 Dec, 2013 [facility] [address] [id number] [address] [place] [address], [place] [address] 10 Dec, 2013 [facility] [address] [id number] [address] [place] [address], [place] [address] 13 Nov, 2013 [facility] [address] [id number] [facility] [place] [address] 13 Nov, 2013 [facility] [address] [id number] [facility] [place] [address] Oct, [facility] [address] [id number] [address] [place] [address], [place] [address] Oct, 2013 [facility] [address] [id number] [address] [place] [address], [place] [address] 05 Oct, 2013 [facility] [address] [id number] [address] [place] [address], [place] [address] 05 Oct, 2013 [facility] [address] [id number] [address] [place] [address], [place] [address] Sep, [facility] [address] [id number] [address] [place] [address], [place] [address] Sep, [facility] [address] [id number] [address] [place] [address], [place] [address] Sep, [facility] [address] [id number] [address] [place] [address], [place] [address] Sep, [facility] [address] [id number] [address] [place] [address], [place] [address] Sep, [facility] [address] [id number] [address] [place] [address], [place] [address] Sep, [facility] [address] [id number] [address] [place] [address], [place] [address] Sep, [facility] [address] [id number] [address] [place] [address], [place] [address] Sep, [facility] [address] [id number] [address] [place] [address], [place] [address] Sep, [facility] [address] [id number] [address] [place] [address], [place] [address] Sep, [facility] [address] [id number] [address] [place] [address], [place] [address] Sep, [facility] [address] [id number] [address] [place] [address] Sep, [facility] [address] [id number] [address] [place] [address], [place] [address] Aug, [facility] [address] [id number] [address] [place] [address], [place] [address] Aug, [facility] [address] [id number] [address] [place] [address], [place] [address] Aug, [facility] [address] [id number] [address] [place] [address], [place] [address] Aug, [facility] [address] [address] [id number] [address] [place] [address], [place] [address] June, [facility] [address] [id number] [address] [place] [address], [place] [address] May, [facility] [place] [facility] [address] [id number] [address] [place] [address], [place] [address] 24 May, 2013 [facility] [address] [id number] [address] [place] [address], [place] [address] May, [facility] [address] [id number] [address] [place] [address], [place] [address] 18 May, 2013 [facility] [address] [id number] [address] [place] [address], [place] [address] 17 May, 2013 [facility] [place] [facility] [address] [id number] [address] [place] [address], [place] [address] 17 May, 2013 [facility] [place] [facility] [address] [id number] [address] [place] [address], [place] [address] 16 May, 2013 [facility] [place] [facility] [address] [id number] [address] [place] [address], [place] [address] 16 May, 2013 [facility] [place] [facility] [address] [id number] [address] [place] [address], [place] [address] May, [facility] [place] [facility] [address] [id number] [address] [place] [address] 14 May, 2013 [facility] [address] [id number] [address] [place] [address], [place] [address] 14 May, 2013 [facility] [address] [id number] [address] [place] [address], [place] [address] 14 May, 2013 [facility] [address] [id number] [address] [place] [address], [place] [address] Apr, [facility] [address] [id number] [address] [place] [address], [place] [address] Apr, [facility] [address] [id number] [address] [place] [address], [place] [address] Mar, [facility] [address] [id number] [address] [place] [address], [place] [address] Mar, [facility] [address] [id number] [address] [place] [address], [place] [address] Dec, [facility] [address] [id number] [address] [place] [address], [place] [address] Dec, [facility] [address] [id number] [address] [place] [address], [place] [address] Dec, [facility] [address] [id number] [address] [place] [address], [place] [address] Dec, [facility] [address] [id number] [address] [place] [address], [place] [address] Nov, [facility] [address] [id number] [address] [place] [address], [place] [address] Nov, [facility] [address] [id number] [address] [place] [address], [place] [address] 30 Oct, 2012 [facility] [place] [facility] [address] [id number] [address] [place] [address], [place] [address] 27 Oct, 2012 [facility] [address] [id number] [address] [place] [address], [place] [address] Aug, [facility] [address] [id number] [address] [place] [address], [place] [address] Aug, [facility] [address] [id number] [address] [place] [address], [place] [address] Aug, [facility] [address] [id number] [address] [place] [address], [place] [address] Jul, [facility] [address] [id number] [address] [place] [address], [place] [address] June, [facility] [address] [id number] [address] [place] [address], [place] [address] June, [facility] [address] [id number] [address] [place] [address], [place] [address] Apr, [facility] [address] [id number] [address] [place] [address], [place] [address] Mar, [facility] [address] [id number] [address] [place] [address], [place] [address] Mar, [facility] [address] [id number] [address] [place] [address], [place] [address] Mar, [facility] [address] [id number] [address] [place] [address], [place] [address] Mar, [facility] [address] [id number] [address] [place] [address], [place] [address] Mar, [facility] [address] [id number] [address] [place] [address], [place] [address] Feb, [facility] [address] [id number] [address] [place] [address], [place] [address] Feb, [facility] [address] [id number] [address] [place] [address], [place] [address] Feb, [facility] [address] [id number] [address] [place] [address], [place] [address] Feb, [facility] [address] [id number] [address] [place] [address], [place] [address] Jan, [facility] [address] [id number] [address] [place] [address], [place] [address] Jan, [facility] [address] [id number] [address] [place] [address], [place] [address] Dec, [facility] [address] [id number] [address] [place] [address], [place] [address] Dec, [facility] [address] [id number] [address] [place] [address], [place] [address] Dec, [facility] [address] [id number] [address] [place] [address], [place] [address] Dec, [facility] [address] [id number] [address] [place] [address], [place] [address] Oct, [facility] [address] [id number] [address] [place] [address], [place] [address] Aug, [facility] [address] [id number] [address] [place] [address], [place] [address] Jul, [facility] [address] [id number] [address] [place] [address], [place] [address] June, [facility] [address] [id number] [address] [place] [address], [place] [address] June, [facility] [address] [id number] [address] [place] [address], [place] [address] June, [facility] [address] [id number] [address] [place] [address], [place] [address] June, [facility] [address] [id number] [address] [place] [address], [place] [address] June, [facility] [address] [id number] [address] [place] [address], [place] [address] May, [facility] [address] [id number] [address] [place] [address], [place] [address] May, [facility] [address] [id number] [address] [place] [address], [place] [address] 15 Apr, 2011 [facility] [address] [id number] [address] [place] [address], [place] [address] 13 Apr, 2011 [facility] [address] [id number] [address] [place] [address], [place] [address] Mar, [facility] [address] [id number] [address] [place] [address], [place] [address] Feb, [facility] [address] [id number] [address] [place] [address], [place] [address] Nov, [facility] [address] [id number] [address] [place] [address], [place] [address] Nov, [facility] [address] [id number] [address] [place] [address], [place] [address] Nov, [facility] [address] [id number] [address] [place] [address], [place] [address] Apr, [facility] [address] [id number] [address] [place] [address], [place] [address] Jan, [facility] [address] [id number] [address] [place] [address], [place] [address] Dec, [facility] [address] [id number] [address] [place] [address], [place] [address] Dec, [facility] [address] [id number] [address] [place] [address], [place] [address] 29 Nov, 2009 [facility] [address] [id number] [address] [place] [address], [place] [address] June, [facility] [address] [id number] [address] [place] [address], [place] [address] 29 Jan, 2009 [facility] [address] [id number] [address] [place] [address], [place] [address] Jan, [facility] [address] [id number] [address] [place] [address] 23 Jan, 2009 [facility] [address] [id number] [address] [place] [address] 22 Jan, 2009 [facility] [address] [id number] [address] [place] [address] 16 Jan, 2009 [facility] [address] [id number] [address] [place] [address] 15 Jan, 2009 [facility] [address] [id number] [address] [place] [address] 15 Jan, 2009 [facility] [address] [id number] [address] [place] [address] 11 Jan, 2009 [facility] [address] [id number] [address] [place] [address] 11 Jan, 2009 [facility] [address] [id number] [address] [place] [address] 10 Jan, 2009 [facility] [address] [id number] [address] [place] [address] 04 Jan, 2009 [facility] [address] [id number] [address] [place] [address] 02 Jan, 2009 [facility] [address] [id number] [address] [place] [address] 25 Dec, 2008 [facility] [address] [id number] [address] [place] [address] Dec, [facility] [address] [id number] [address] [place] [address] 17 Dec, 2008 [facility] [address] [id number] [address] [place] [address] 17 Dec, 2008 [facility] [address] [id number] [address] [place] [address] 20 Nov, 2008 [facility] [address] [id number] [address] [place] [address] 10 Oct, 2008 IMMUNIZATIONS No Known Immunizations SOCIAL HISTORY Never Assessed REASON FOR VISIT PLAN OF CARE VITAL SIGNS Height 73 in 2014-05-13 Weight 301.91 lbs 2014-05-13 Temperature 97.9 degrees Fahrenheit 2014-05-13 Heart Rate 84 bpm 2014-05-13 Respiratory Rate 22 2014-05-13 Blood pressure systolic 128 mmHg 2014-05-13 Blood pressure diastolic 84 mmHg 2014-05-13 MEDICATIONS Unknown Medications RESULTS No Results PROCEDURES Procedure Date Ordered Result Body Site DRAIN/INJECT, JOINT/BURSA May 13, 2014 INSTRUCTIONS MEDICATIONS ADMINISTERED No Known Medications [...] knee pseudogout s tatus post joint fluid analysis-[facility] 09/20/16 Hospitalization History kidneys--[facility] 11[facility]2017 Hospitalization History Diverticulitis--[facility] 06/2018
--- OUTSIDE RECORDS SUMMARY | 2019-07-04 10:18 | XMS REPORT ---
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 5 Active 948152217 Problem End stage kidney disease N18.6 Activ e 75921170 Problem Gout of left knee due to renal impairment, unspe cified chronicity M10.362 Active 794496723 Problem Type 2 diabetes mellitus with hyperglycemia E11.65 Active 438113046643989 Problem Mood disorder F39 Active 481740 05 Problem Delayed gastric emptying K30 Activ e 306624679 Problem Kidney stone N20.0 Active 6291244 7 Problem Proteinuria R80.9 Active 41042153 Problem Sinusitis J32.9 Active 84094022 ALLERGIES No Information ENCOUNTERS Encounter Location Date Diagnosis [facility] [address] [facility] [id number] [address] [place] [address] Aug, [facility] [address] [facility] [id number] [address] [place] [address] Jul, Type 2 diabetes mellitus wit h hyperglycemia E11.65 [facility] [address] [facility] [id number] [address] [place] [address] Jul, Type 2 diabetes mellitus wit h hyperglycemia E11.65 [facility] [address] [facility] [id number] [address] [place] [address] Jul, Type 2 diabetes mellitus wit h hyperglycemia E11.65 [facility] [address] [facility] [id number] [address] [place] [address] June, Type 2 diabetes mellitus wit h hyperglycemia E11.65 ; End stage kidney disease N18.[address] [facility] [address] [facility] [id number] [address] [place] [address] May, [facility] [address] [facility] [id number] [address] [place] [address] May, Essential hypertension I10 [facility] [address] [facility] [id number] [address] [place] [address] Apr, [facility] [address] [facility] [id number] [address] [place] [address] Apr, Type 2 diabetes mellitus wit h hyperglycemia E11.65 and Essential hypertension I10 [facility] [address] [facility] [id number] [address] [place] [address] Apr, [facility] [address] [facility] [id number] [address] [place] [address] Apr, Type 2 diabetes mellitus wit h hyperglycemia E11.65 [facility] [address] [facility] [id number] [address] [place] [address] Apr, [facility] [address] [facility] [id number] [address] [place] [address] Mar, Type 2 diabetes mellitus wit h hyperglycemia E11.65 [facility] [address] [facility] [id number] [address] [place] [address] Mar, Type 2 diabetes mellitus wit h diabetic nephropathy E11.21 ; End stage kidney disease N18.6 ; Callus L84 and On[address]omycosis B35.1 [facility] [address] [facility] [id number] [address] [place] [address] Feb, [facility] [address] [place] [id number] [address] [place] [address] Feb, Sinusitis J32.9 ; Nausea R11 [address] [facility] [address] [address] Jan, [place] [address] [address] Jan, [place] [address] [address] Jan, Essential hypertension I10 ; Gout, unspecified M10.9 ; Coronary atherosclerosis of unspecified type of vessel, eagle or graft I25.10 ; Mixed hyperlipidemia E78.2 and Type 2 diabetes mellitus with hyperglycemia E11.65 [place] [address] [address] Dec, Chronic kidney disease, stag e 3 N18.3 ; Proteinuria R80.9 ; Diabetes mellitus E11.9 ; Acute kidney failure, unspecified N17.9 and Mixed hyperlipidemia E78.2 [place] [address] [address] 16 Dec, 2017 Chronic kidney disease, stag e 3 N18.3 ; Essential hypertension I10 ; Proteinuria R80.9 ; Diabetes mellitus E11.9 ; Kidney stone N20.0 ; Acute kidney failure, unspecified N17.9 ; Edema R60.9 and Mixed hyperlipidemia E78.2 [place] [address] [place] [id number] [address] [place] [address] 14 Dec, 2017 Type 2 diabetes mellitus wit h hyperglycemia E11.[address] [address] 14 Dec, 2017 Chronic kidney disease, stag e 3 N18.3 [place] [address] [address] 06 Dec, 2017 Type 2 diabetes mellitus wit h hyperglycemia E11.65 [place] [address] [place] [id number] [address] [place] [address] Dec, [place] [address] [address] Nov, Type 2 diabetes mellitus wit h hyperglycemia E11.65 [place] [address] [place] [id number] [place] [address] Nov, [place] [address] [address] Nov, Chronic kidney disease, stag e V (very severe) N18.5 ; Type 2 diabetes mellitus with hyperglycemia E11.65 ; Encounter for immunization Z23 and Delayed gastric emptying K30 [place] [address] [place] [id number] [place] [address] Nov, [place] [address] [address] Oct, Essential hypertension I10 ; Coronary atherosclerosis of unspecified type of vessel, eagle or graft I25.10 ; Type 2 diabetes mellitus with hyperglycemia E11.65 and Gout, unspecified M10.9 [place] [address] [address] 07 Oct, 2017 Chronic kidney disease, stag e V (very severe) N18.5 [place] [address] [address] Oct, Mixed hyperlipidemia E78.2 [place] [address] [place] [id number] [place] [address] Sep, Type 2 diabetes mellitus wit h hyperglycemia E11.65 [place] [address] [address] Sep, Mixed hyperlipidemia E78.2 [place] [address] [place] [id number] [place] [address] Sep, Chronic kidney disease, stag e V (very severe) N18.5 [place] [address] [address] 15 Sep, 2017 Type 2 diabetes mellitus wit h hyperglycemia E11.65 and Essential hypertension I10 [place] [address] [address] Sep, Type 2 diabetes mellitus wit h hyperglycemia E11.65 [place] [address] [address] 16 Aug, 2017 Gout, unspecified M10.9 ; Ga stroesophageal reflux disease, esophagitis presence not specified K21.9 ; Mood disorder F39 and Coronary atherosclerosis of unspecified type of vessel, eagle or graft I25.10 [place] [address] [address] Aug, [place] [address] [address] June, Type 2 diabetes mellitus wit h hyperglycemia E11.65 [place] [address] [address] May, Mood disorder F39 ; Gastroes ophageal reflux disease, esophagitis presence not specified K21.9 ; Gout, unspecified M10.9 ; Coronary atherosclerosis of unspecified type of vessel, eagle or graft I25.10 and Type 2 diabetes mellitus with hyperglycemia E11.65 [place] [address] [address] May, Type 2 diabetes mellitus wit h hyperglycemia E11.65 [place] [address] [address] Apr, Diabetes E11.9 and Mood diso rder F39 [place] [address] [address] 15 Mar, 2017 Primary osteoarthritis of le ft knee M17.12 and Tear of lateral meniscus of left knee, unspecified tear type, unspecified whether old or current tear, initial encounter S83.282A [place] [address] [address] Feb, Mood disorder F39 [facility] [address] [facility] [id number] [address] [place] [address] Feb, Pseudogout M11.20 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 [address] [facility] [id number] [address] [place] [address] Jan, Gout of left knee due to eloisa al impairment, unspecified chronicity M10.362 ; Type 2 diabetes mellitus with diabetic nephropathy E11.21 ; Synovial cyst of popliteal space [Mejia], left knee M71.22 and Low back pain M54.5 [place] [address] [facility] [id number] [address] [place] [address] Dec, Pseudogout M11.20 [place] [address] [facility] [id number] [address] [place] [address] Dec, [place] [address] [facility] [id number] [address] [place] [address] 13 Dec, 2016 Type 2 diabetes mellitus wit h diabetic nephropathy E11.21 and Right anterior knee pain M25.561 [place] [address] [facility] [id number] [address] [place] [address] Nov, Pseudogout M11.20 [facility] [address] [facility] [id number] [address] [place] [address] Nov, Pseudogout M11.20 ; Chronic kidney disease, stage 3 N18.3 ; Mixed hyperlipidemia E78.2 ; Gout, unspecified M10.9 ; Coronary atherosclerosis of unspecified type of vessel, eagle or graft I25.10 ; Mood disorder F39 and Gastroesophageal reflux disease, esophagitis presence not specified K21.9 [facility] [address] [facility] [id number] [address] [place] [address] Nov, [facility] [address] [facility] [id number] [address] [place] [address] Oct, Pseudogout M11.20 [facility] [address] [place] [id number] [address] [place] [address] Sep, Pseudogout M11.20 [facility] [address] [place] [id number] [address] [place] [address] Sep, Pseudogout M11.20 [facility] [address] [place] [id number] [address] [place] [address] Sep, [facility] [address] [place] [id number] [place] [id number] Aug, [facility] [address] [place] [id number] [address] [place] [address] Aug, Diabetes E11.9 ; Chronic kid tahir disease, stage 3 N18.3 ; Hyperuricemia E79.0 ; Mixed hyperlipidemia E78.2 ; Gastroesophageal reflux disease, esophagitis presence not specified K21.9 ; Gout, unspecified M10.9 ; Coronary atherosclerosis of unspecified type of vessel, eagle or graft I25.[address] [facility] [address] [facility] [id number] [address] [place] [address] June, [facility] [address] [place] [id number] [address] [place] [address] June, [facility] [address] [facility] [id number] [address] [place] [address] June, [facility] [address] [facility] [id number] [address] [place] [address] May, Chronic renal failure, stage 3 (moderate) N18.3 [facility] [address] [id number] [address] [place] [address] May, Diabetes E11.9 [facility] [address] [id number] [address] [place] [address] May, [facility] [address] [id number] [address] [place] [address] Apr, [facility] [address] [id number] [address] [place] [address] Apr, [facility] [address] [id number] [address] [place] [address] Apr, Cellulitis of right lower ex tremity L03.[address] [facility] [address] [facility] [id number] [address] [place] [address] Apr, Type 2 diabetes mellitus wit h hyperglycemia E11.65 [facility] [address] [facility] [id number] [address] [place] [address] Mar, Cellulitis of right lower ex tremity L03.115 and Low back pain M54.5 [place] [address] [facility] [id number] [address] [place] [address] Mar, [facility] [address] [facility] [id number] [address] [place] [address] Mar, Cellulitis of right lower ex tremity L03.115 [facility] [address] [facility] [id number] [address] [place] [address] Mar, Cellulitis of right lower ex tremity L03.115 [facility] [address] [facility] [id number] [address] [place] [address] Feb, Cellulitis of right lower ex tremity L03.115 [facility] [address] [facility] [id number] [address] [place] [address] Feb, Cellulitis of right lower ex tremity L03.115 [place] [address] [id number] [address] [place] [address] Feb, [facility] [address] [id number] [address] [place] [address] Feb, Leukocytosis, unspecified ty pe D72.829 ; Chronic renal failure, stage 3 (moderate) N18.3 and Type 2 diabetes mellitus with hyperglycemia E11.65 [place] [address] [id number] [address] [place] [address] Feb, Leukocytosis, unspecified ty pe D72.829 [place] [address] [id number] [address] [place] [address] Feb, [place] [address] [id number] [address] [place] [address] Feb, Cellulitis of right lower ex tremity L03.115 ; Thrush B37.0 ; Gout of left knee due to renal impairment, unspecified chronicity M10.362 and Chronic renal failure, stage 3 (moderate) N18.3 [place] [address] [id number] [address] [place] [address] Feb, [place] [address] [id number] [address] [place] [address] Feb, Right foot infection L08.9 ; Type 2 diabetes mellitus with hyperglycemia E11.65 ; Arthralgia of left knee M25.562 ; Chronic kidney disease, stage 3 N18.3 and Diabetes E11.9 [place] [address] [id number] [address] [place] [address] Feb, [place] [address] [id number] [address] [place] [address] Feb, Diabetes E11.9 ; Arthralgia of left knee M25.562 and Thrush B37.0 [place] [address] [id number] [address] [place] [address] Jan, [place] [address] [place] [id number] [place] [address] 08 Jan, 2016 Type 2 diabetes mellitus wit h hyperglycemia E11.65 ; Chronic renal failure, stage 3 (moderate) N18.3 and Leukocytosis, unspecified type D72.829 [facility] [address] [address] Jan, Type 2 diabetes mellitus wit h hyperglycemia E11.65 [place] [address] [address] Dec, Gout of left knee due to eloisa al impairment, unspecified chronicity M10.362 [place] [address] [address] Dec, Gout of left knee due to elosia al impairment, unspecified chronicity M10.362 and Diabetes E11.9 [place] [address] [address] Dec, [place] [address] [address] Dec, 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 [address] [address] Dec, Leukocytosis, unspecified ty pe D72.829 ; Chronic renal failure, stage 3 (moderate) N18.[address] [facility] [address] [address] Nov, [place] [address] [address] Jul, [facility] [address] [facility] [id number] [address] [place] [address] Jul, Diabetes E11.9 ; Low back pa in M54.5 and Other chronic pain G89.29 [facility] [address] [id number] [address] [place] [address] June, [facility] [address] [facility] [id number] [address] [place] [address] June, [facility] [address] [id number] [address] [place] [address] Jan, Viral illness B34.9 [facility] [address] [facility] [id number] [address] [place] [address] Jan, Type 2 diabetes mellitus wit h hyperglycemia E11.65 ; Pain in right foot M79.671 and Localized edema R60.0 [facility] [address] [facility] [id number] [address] [place] [address] Jan, [facility] [address] [facility] [id number] [address] [place] [address] Dec, Right foot pain M79.671 ; In somnia, unspecified type G47.[address] [facility] [address] [facility] [id number] [address] [place] [address] Dec, Pain in right foot M79.671 [facility] [address] [id number] [address] [place] [address] Nov, [facility] [address] [facility] [id number] [address] [place] [address] Sep, [facility] [address] [facility] [id number] [address] [place] [address] Sep, Diabetes mellitus, type II [address] [facility] [address] [facility] [id number] [address] [place] [address] May, [facility] [address] [id number] [address] [place] [address] [place] [address] 13 May, 2014 [facility] [address] [id number] [address] [place] [address], [place] [address] 19 Apr, 2014 [facility] [address] [id number] [address] [place] [address], [place] [address] 19 Apr, 2014 [facility] [address] [id number] [address] [place] [address], [place] [address] 16 Apr, 2014 [facility] [address] [id number] [address] [place] [address], [place] [address] 16 Apr, 2014 [facility] [address] [id number] [address] [place] [address], [place] [address] 12 Apr, 2014 [facility] [address] [id number] [address] [place] [address], [place] [address] 12 Apr, 2014 [facility] [address] [id number] [address] [place] [address], [place] [address] 05 Apr, 2014 [facility] [address] [id number] [address] [place] [address], [place] [address] 05 Apr, 2014 [facility] [address] [id number] [address] [place] [address], [place] [address] 18 Jan, 2014 [facility] [address] [id number] [address] [place] [address], [place] [address] 18 Jan, 2014 [facility] [address] [id number] [address] [place] [address], [place] [address] 15 Jan, 2014 [facility] [address] [id number] [address] [place] [address], [place] [address] 15 Jan, 2014 [facility] [address] [id number] [address] [place] [address], [place] [address] 10 Dec, 2013 [facility] [address] [id number] [address] [place] [address], [place] [address] 10 Dec, 2013 [facility] [address] [id number] [address] [place] [address], [place] [address] 13 Nov, 2013 [facility] [address] [id number] [facility] [place] [address] 13 Nov, 2013 [facility] [address] [id number] [facility] [place] [address] Oct, [facility] [address] [id number] [address] [place] [address], [place] [address] Oct, 2013 [facility] [address] [id number] [address] [place] [address], [place] [address] 05 Oct, 2013 [facility] [address] [id number] [address] [place] [address], [place] [address] 05 Oct, 2013 [facility] [address] [id number] [address] [place] [address], [place] [address] Sep, [facility] [address] [id number] [address] [place] [address], [place] [address] Sep, [facility] [address] [id number] [address] [place] [address], [place] [address] Sep, [facility] [address] [id number] [address] [place] [address], [place] [address] Sep, [facility] [address] [id number] [address] [place] [address], [place] [address] Sep, [facility] [address] [id number] [address] [place] [address], [place] [address] Sep, [facility] [address] [id number] [address] [place] [address], [place] [address] Sep, [facility] [address] [id number] [address] [place] [address], [place] [address] Sep, [facility] [address] [id number] [address] [place] [address], [place] [address] Sep, [facility] [address] [id number] [address] [place] [address], [place] [address] Sep, [facility] [address] [id number] [address] [place] [address], [place] [address] Sep, [facility] [address] [id number] [facility] [place] [address] Sep, [facility] [address] [id number] [address] [place] [address], [place] [address] Aug, [facility] [address] [id number] [address] [place] [address], [place] [address] Aug, [facility] [address] [id number] [address] [place] [address], [place] [address] Aug, [facility] [address] [id number] [address] [place] [address], [place] [address] Aug, [facility] [address] [id number] [address] [place] [address], [place] [address] June, [facility] [address] [id number] [address] [place] [address], [place] [address] May, [facility] [address] [id number] [address] [place] [address], [place] [address] 24 May, 2013 [facility] [address] [id number] [address] [place] [address], [place] [address] May, [facility] [address] [id number] [address] [place] [address], [place] [address] 18 May, 2013 [facility] [address] [id number] [address] [place] [place] [address], [place] [address] 17 May, 2013 [facility] [place] [facility] [address] [id number] [address] [place] [address], [place] [address] 17 May, 2013 [facility] [place] [facility] [address] [id number] [address] [place] [address], [place] [address] 16 May, 2013 [facility] [place] [facility] [address] [id number] [address] [place] [address], [place] [address] 16 May, 2013 [facility] [place] [facility] [address] [id number] [address] [place] [address], [place] [address] May, [facility] [place] [facility] [address] [id number] [address] [place] [address] 14 May, 2013 [facility] [address] [id number] [address] [place] [address], [place] [address] 14 May, 2013 [facility] [address] [id number] [address] [place] [address], [place] [address] 14 May, 2013 [facility] [address] [id number] [address] [place] [address], [place] [address] Apr, [facility] [address] [id number] [address] [place] [address], [place] [address] Apr, [facility] [address] [id number] [address] [place] [address], [place] [address] Mar, [facility] [address] [id number] [address] [place] [address], [place] [address] Mar, [facility] [address] [id number] [address] [place] [address], [place] [address] Dec, [facility] [address] [id number] [address] [place] [address], [place] [address] Dec, [facility] [address] [id number] [address] [place] [address], [place] [address] Dec, [facility] [address] [id number] [address] [place] [address], [place] [address] Dec, [facility] [address] [id number] [address] [place] [address], [place] [address] Nov, [facility] [address] [id number] [address] [place] [address], [place] [address] Nov, [facility] [address] [id number] [address] [place] [address], [place] [address] 30 Oct, 2012 [facility] [place] [facility] [address] [id number] [address] [place] [address], [place] [address] 27 Oct, 2012 [facility] [address] [id number] [address] [place] [address], [place] [address] Aug, [facility] [address] [id number] [address] [place] [address], [place] [address] Aug, [facility] [address] [id number] [address] [place] [address], [place] [address] Aug, [facility] [address] [id number] [address] [place] [address], [place] [address] Jul, [facility] [address] [id number] [address] [place] [address], [place] [address] June, [facility] [address] [id number] [address] [place] [address], [place] [address] June, [facility] [address] [id number] [address] [place] [address], [place] [address] Apr, [facility] [address] [id number] [address] [place] [address], [place] [address] Mar, [facility] [address] [id number] [address] [place] [address], [place] [address] Mar, [facility] [address] [id number] [address] [place] [address], [place] [address] Mar, [facility] [address] [id number] [address] [place] [address], [place] [address] Mar, [facility] [address] [id number] [address] [place] [address], [place] [address] Mar, [facility] [address] [id number] [address] [place] [address], [place] [address] Feb, [facility] [address] [id number] [address] [place] [address], [place] [address] Feb, [facility] [address] [id number] [address] [place] [address], [place] [address] Feb, [facility] [address] [id number] [address] [place] [address], [place] [address] Feb, [facility] [address] [id number] [address] [place] [address], [place] [address] Jan, [facility] [address] [id number] [address] [place] [address], [place] [address] Jan, [facility] [address] [id number] [address] [place] [address], [place] [address] Dec, [facility] [address] [id number] [address] [place] [address], [place] [address] Dec, [facility] [address] [id number] [address] [place] [address], [place] [address] Dec, [facility] [address] [id number] [address] [place] [address], [place] [address] Dec, [facility] [address] [id number] [address] [place] [address], [place] [address] Oct, [facility] [address] [id number] [address] [place] [address], [place] [address] Aug, [facility] [address] [id number] [address] [place] [address], [place] [address] Jul, [facility] [address] [id number] [address] [place] [address], [place] [address] June, [facility] [address] [id number] [address] [place] [address], [place] [address] June, [facility] [address] [id number] [address] [place] [address], [place] [address] June, [facility] [address] [id number] [address] [place] [address], [place] [address] June, [facility] [address] [id number] [address] [place] [address], [place] [address] June, [facility] [address] [id number] [address] [place] [address], [place] [address] May, [facility] [address] [id number] [address] [place] [address], [place] [address] May, [facility] [address] [id number] [address] [place] [address], [place] [address] 15 Apr, 2011 [facility] [address] [id number] [address] [place] [address], [place] [address] 13 Apr, 2011 [facility] [address] [id number] [address] [place] [address], [place] [address] Mar, [facility] [address] [id number] [address] [place] [address], [place] [address] Feb, [facility] [address] [id number] [address] [place] [address], [place] [address] Nov, [facility] [address] [id number] [address] [place] [address], [place] [address] Nov, [facility] [address] [id number] [address] [place] [address], [place] [address] Nov, [facility] [address] [id number] [address] [place] [address], [place] [address] Apr, [facility] [address] [id number] [address] [place] [address], [place] [address] Jan, [facility] [address] [id number] [address] [place] [address], [place] [address] Dec, [facility] [address] [id number] [address] [place] [address], [place] [address] Dec, [facility] [address] [id number] [address] [place] [address], [place] [address] 29 Nov, 2009 [facility] [address] [id number] [address] [place] [address], [place] [address] June, [facility] [address] [id number] [address] [place] [address], [place] [address] 29 Jan, 2009 [facility] [address] [id number] [address] [place] [address], [place] [address] Jan, [facility] [address] [id number] [address] [place] [id number] 23 Jan, 2009 [facility] [address] [id number] [address] [place] [address] 22 Jan, 2009 [facility] [address] [id number] [address] [place] [address] 16 Jan, 2009 [facility] [address] [id number] [address] [place] [id number] 15 Jan, 2009 [facility] [address] [id number] [address] [place] [id number] 15 Jan, 2009 [facility] [address] [id number] [address] [place] [id number] 11 Jan, 2009 [facility] [address] [id number] [address] [place] [id number] 11 Jan, 2009 [facility] [address] [id number] [address] [place] [phone] 10 Jan, 2009 [facility] [address] [id number] [address] [place] [id number] 04 Jan, 2009 [facility] [address] [id number] [address] [place] [id number] [address], [address] [facility] [address] [id number] [address] [place] [phone] [address], [address] [facility] [address] [id number] [address] [place] [phone] Dec, [facility] [address] [id number] [address] [place] [id number] 17 Dec, 2008 [facility] [address] [id number] [address] [place] [id number] [address], [address] [facility] [address] [id number] [address] [place] [id number] 20 Nov, 2008 [facility] [address] [id number] [address] [place] [phone] 10 Oct, 2008 IMMUNIZATIONS No Known Immunizations [...] knee pseudogout s tatus post joint fluid analysis-[facility] 09/20/16 Hospitalization History kidneys--[facility] 11/2017 Hospitalization History Diverticulitis--[facility] 06/2018
--- OUTSIDE RECORDS SUMMARY | 2019-07-04 10:18 | XMS REPORT ---
Author Author Charles Perez Doctor Organization 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 5 Active 105942560 Problem End stage kidney disease N18.6 Activ e 46973331 Problem Gout of left knee due to renal impairment, unspe cified chronicity M10.362 Active 716997187 Problem Type 2 diabetes mellitus with hyperglycemia E11.65 Active 155320142814748 Problem Mood disorder F39 Active 620178 05 Problem Delayed gastric emptying K30 Activ e 596024067 Problem Kidney stone N20.0 Active 8659115 7 Problem Proteinuria R80.9 Active 34783753 Problem Sinusitis J32.9 Active 06938873 ALLERGIES No Information ENCOUNTERS Encounter Location Date Diagnosis [facility] [address] [facility] [id number] [address] [place] [address] Jul, Type 2 diabetes mellitus wit h hyperglycemia E11.65 [facility] [address] [facility] [id number] [address] [place] [address] Jul, Type 2 diabetes mellitus wit h hyperglycemia E11.65 [facility] [address] [facility] [id number] [address] [place] [address] Jul, Type 2 diabetes mellitus wit h hyperglycemia E11.65 [facility] [address] [facility] [id number] [address] [place] [address] June, Type 2 diabetes mellitus wit h hyperglycemia E11.65 ; End stage kidney disease N18.6 and Callus L84 [facility] [address] [facility] [id number] [address] [place] [address] May, [facility] [address] [facility] [id number] [address] [place] [address] May, Essential hypertension I10 [facility] [address] [facility] [id number] [address] [place] [address] Apr, [facility] [address] [facility] [id number] [address] [place] [address] Apr, Type 2 diabetes mellitus wit h hyperglycemia E11.65 and Essential hypertension I10 [facility] [address] [facility] [id number] [address] [place] [address] Apr, [facility] [address] [facility] [id number] [address] [place] [address] Apr, Type 2 diabetes mellitus wit h hyperglycemia E11.65 [facility] [address] [facility] [id number] [address] [place] [address] Apr, [facility] [address] [facility] [id number] [address] [place] [address] Mar, Type 2 diabetes mellitus wit h hyperglycemia E11.65 [facility] [address] [facility] [id number] [address] [place] [address] Mar, Type 2 diabetes mellitus wit h diabetic nephropathy E11.21 ; End stage kidney disease N18.6 ; Callus L84 and Onychomycosis B35.1 [facility] [address] [facility] [id number] [address] [place] [address] Feb, [facility] [address] [facility] [id number] [address] [place] [address] Feb, Sinusitis J32.9 ; Nausea R11 .0 and Otalgia H92.09 [place] [address] [address] Jan, [place] [address] [address] Jan, [place] [address] [address] Jan, Essential hypertension I10 ; Gout, unspecified M10.9 ; Coronary atherosclerosis of unspecified type of vessel, [place] or graft I25.10 ; Mixed hyperlipidemia E78.2 and Type 2 diabetes mellitus with hyperglycemia E11.65 [place] [address] [address] Dec, Chronic kidney disease, stag e 3 N18.3 ; Proteinuria R80.9 ; Diabetes mellitus E11.9 ; Acute kidney failure, unspecified N17.9 and Mixed hyperlipidemia E78.[address] [address] Dec, Chronic kidney disease, stag e 3 N18.3 ; Essential hypertension I10 ; Proteinuria R80.9 ; Diabetes mellitus E11.9 ; Kidney stone N20.0 ; Acute kidney failure, unspecified N17.9 ; Edema R60.9 and Mixed hyperlipidemia E78.[address] [address] Dec, Type 2 diabetes mellitus wit h hyperglycemia E11.65 [place] [address] [address] Dec, Chronic kidney disease, stag e [address] [address] Dec, Type 2 diabetes mellitus wit h hyperglycemia E11.65 [place] [address] [address] Dec, [place] [address] [facility] [id number] [address] [place] [address] Nov, Type 2 diabetes mellitus wit h hyperglycemia E11.65 [place] [address] [facility] [id number] [address] [place] [address] Nov, [place] [address] [facility] [id number] [address] [place] [address] Nov, Chronic kidney disease, stag e V (very severe) N18.5 ; Type 2 diabetes mellitus with hyperglycemia E11.65 ; Encounter for immunization Z23 and Delayed gastric emptying K30 [place] [address] [facility] [id number] [address] [place] [address] Nov, [place] [address] [facility] [id number] [address] [place] [address] Oct, Essential hypertension I10 ; Coronary atherosclerosis of unspecified type of vessel, [place] or graft I25.10 ; Type 2 diabetes mellitus with hyperglycemia E11.65 and Gout, unspecified M10.9 [place] [address] [place] [id number] [address] [place] [id number] 07 Oct, 2017 Chronic kidney disease, stag e V (very severe) N18.5 [place] [address] [facility] [id number] [address] [place] [address] Oct, Mixed hyperlipidemia E78.2 [place] [address] [facility] [id number] [address] [place] [address] Sep, Type 2 diabetes mellitus wit h hyperglycemia E11.65 [place] [address] [facility] [id number] [address] [place] [address] Sep, Mixed hyperlipidemia E78.2 [place] [address] [facility] [id number] [address] [place] [address] Sep, Chronic kidney disease, stag e V (very severe) N18.5 [place] [address] [facility] [id number] [address] [place] [address] Sep, Type 2 diabetes mellitus wit h hyperglycemia E11.65 and Essential hypertension I10 [place] [address] [facility] [id number] [address] [place] [address] Sep, Type 2 diabetes mellitus wit h hyperglycemia E11.65 [place] [address] [facility] [id number] [address] [place] [address] 16 Aug, 2017 Gout, unspecified M10.9 ; Ga stroesophageal reflux disease, esophagitis presence not specified K21.9 ; Mood disorder F39 and Coronary atherosclerosis of unspecified type of vessel, [place] or graft I25.10 [place] [address] [id number] [address] [place] [address] Aug, [place] [address] [facility] [id number] [place] [address] June, Type 2 diabetes mellitus wit h hyperglycemia E11.65 [place] [address] [facility] [id number] [address] [place] [address] May, Mood disorder F39 ; Gastroes ophageal reflux disease, esophagitis presence not specified K21.9 ; Gout, unspecified M10.9 ; Coronary atherosclerosis of unspecified type of vessel, [place] or graft I25.10 and Type 2 diabetes mellitus with hyperglycemia E11.65 [place] [address] [facility] [id number] [address] [place] [address] May, Type 2 diabetes mellitus wit h hyperglycemia E11.65 [place] [address] [facility] [id number] [address] [place] [address] Apr, Diabetes E11.9 and Mood diso rder F39 [place] [address] [facility] [id number] [address] [place] [address] Mar, Primary osteoarthritis of le ft knee M17.12 and Tear of lateral meniscus of left knee, unspecified tear type, unspecified whether old or current tear, initial encounter S83.282A [place] [address] [facility] [id number] [address] [place] [address] Feb, Mood disorder F39 [place] [address] [facility] [id number] [address] [place] [address] Feb, Pseudogout M11.20 [facility] [address] [facility] [id number] [address] [place] [address] Jan, Other residential (current) dr anna therapy Z79.899 [facility] [address] [facility] [id number] [address] [place] [address] Jan, [facility] [address] [facility] [id number] [address] [place] [address] Jan, Pseudogout M11.20 ; Type 2 d iabetes mellitus with hyperglycemia E11.65 and 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 [facility] [address] [facility] [id number] [address] [place] [address] Jan, Gout of left knee due to eloisa al impairment, unspecified chronicity M10.362 ; Type 2 diabetes mellitus with diabetic nephropathy E11.21 ; Synovial cyst of popliteal space [Mejia], left knee M71.22 and Low back pain M54.5 [facility] [address] [place] [id number] [address] [place] [address] Dec, Pseudogout M11.20 [facility] [address] [place] [id number] [address] [place] [address] 14 Dec, 2016 [place] [address] [place] [id number] [place] [address] 13 Dec, 2016 Type 2 diabetes mellitus wit h diabetic nephropathy E11.21 and Right anterior knee pain M25.561 [facility] [address] [facility] [id number] [address] [place] [address] Nov, Pseudogout M11.20 [facility] [address] [facility] [id number] [address] [place] [address] 19 Nov, 2016 Pseudogout M11.20 ; Chronic kidney disease, stage 3 N18.3 ; Mixed hyperlipidemia E78.2 ; Gout, unspecified M10.9 ; Coronary atherosclerosis of unspecified type of vessel, [place] or graft I25.10 ; Mood disorder F39 and Gastroesophageal reflux disease, esophagitis presence not specified K21.9 [facility] [address] [place] [id number] [address] [place] [address] Nov, [facility] [address] [place] [id number] [address] [place] [address] Oct, Pseudogout M11.20 [facility] [address] [place] [id number] [address] [place] [address] Sep, Pseudogout M11.20 [facility] [address] [place] [id number] [address] [place] [address] Sep, Pseudogout M11.20 [facility] [address] [place] [id number] [place] [address] Sep, [facility] [address] [place] [id number] [place] [id number] Aug, [facility] [address] [place] [id number] [place] [address] Aug, Diabetes E11.9 ; Chronic kid tahir disease, stage 3 N18.3 ; Hyperuricemia E79.0 ; Mixed hyperlipidemia E78.2 ; Gastroesophageal reflux disease, esophagitis presence not specified K21.9 ; Gout, unspecified M10.9 ; Coronary atherosclerosis of unspecified type of vessel, [place] or graft I25.10 and Mood disorder F39 [facility] [address] [place] [id number] [address] [place] [address] June, [facility] [address] [place] [id number] [place] [phone] June, [facility] [address] [address] June, [facility] [address] [place] [id number] [address] [place] [address] May, Chronic renal failure, stage 3 (moderate) N18.3 [facility] [address] [place] [id number] [place] [address] May, Diabetes E11.9 [facility] [address] [id number] [address] [place] [phone] May, [facility] [address] [facility] [id number] [address] [place] [address] Apr, [facility] [address] [id number] [address] [place] [address] Apr, [facility] [address] [facility] [id number] [address] [place] [address] Apr, Cellulitis of right lower ex tremity L03.115 and Diabetes E11.9 [facility] [address] [id number] [address] [place] [address] Apr, Type 2 diabetes mellitus wit h hyperglycemia E11.65 [facility] [address] [facility] [id number] [address] [place] [address] Mar, Cellulitis of right lower ex tremity L03.115 and Low back pain M54.5 [facility] [address] [id number] [address] [place] [address] Mar, [facility] [address] [id number] [address] [place] [address] Mar, Cellulitis of right lower ex tremity L03.115 [facility] [address] [facility] [id number] [address] [place] [address] Mar, Cellulitis of right lower ex tremity L03.115 [facility] [address] [id number] [address] [place] [address] Feb, Cellulitis of right lower ex tremity L03.115 [facility] [address] [facility] [id number] [address] [place] [address] Feb, Cellulitis of right lower ex tremity L03.115 [facility] [address] [facility] [id number] [address] [place] [address] Feb, [place] [address] [id number] [address] [place] [address] Feb, Leukocytosis, unspecified ty pe D72.829 ; Chronic renal failure, stage 3 (moderate) N18.3 and Type 2 diabetes mellitus with hyperglycemia E11.65 [place] [address] [id number] [address] [place] [address] Feb, Leukocytosis, unspecified ty pe D72.829 [place] [address] [id number] [address] [place] [address] Feb, [place] [address] [id number] [address] [place] [address] Feb, Cellulitis of right lower ex tremity L03.115 ; Thrush B37.0 ; Gout of left knee due to renal impairment, unspecified chronicity M10.362 and Chronic renal failure, stage 3 (moderate) N18.3 [place] [address] [id number] [address] [place] [address] Feb, [place] [address] [id number] [address] [place] [address] Feb, Right foot infection L08.9 ; Type 2 diabetes mellitus with hyperglycemia E11.65 ; Arthralgia of left knee M25.562 ; Chronic kidney disease, stage 3 N18.3 and Diabetes E11.9 [place] [address] [id number] [address] [place] [address] Feb, [place] [address] [id number] [address] [place] [address] Feb, Diabetes E11.9 ; Arthralgia of left knee M25.562 and Thrush B37.0 [place] [address] [id number] [address] [place] [address] Jan, [place] [address] [id number] [address] [place] [address] Jan, Type 2 diabetes mellitus wit h hyperglycemia E11.65 ; Chronic renal failure, stage 3 (moderate) N18.3 and Leukocytosis, unspecified type D72.829 [place] [address] [place] [id number] [address] [place] [address] Jan, Type 2 diabetes mellitus wit h hyperglycemia E11.65 [place] [address] [place] [id number] [address] [place] [address] 30 Dec, 2015 Gout of left knee due to eloisa al impairment, unspecified chronicity M10.362 [place] [address] [address] Dec, Gout of left knee due to eloisa al impairment, unspecified chronicity M10.362 and Diabetes E11.9 [place] [address] [address] Dec, [place] [address] [address] Dec, [facility] [address] [address] Dec, [place] [address] [address] Dec, Chronic kidney disease, stag e 3 N18.3 ; Type 2 diabetes mellitus with diabetic nephropathy E11.21 ; Type 2 diabetes mellitus with hyperglycemia E11.65 and 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 [facility] [address] [place] [id number] [place] [address] Dec, Leukocytosis, unspecified ty pe D72.829 ; Chronic renal failure, stage 3 (moderate) N18.3 and Nausea R11.0 [place] [address] [address] Nov, [place] [address] [place] [id number] [place] [address] Jul, [place] [address] [address] Jul, Diabetes E11.9 ; Low back pa in M54.5 and Other chronic pain G89.29 [facility] [address] [facility] [id number] [address] [place] [address] June, [facility] [address] [id number] [address] [place] [address] June, [facility] [address] [facility] [id number] [address] [place] [address] Jan, Viral illness B34.9 [facility] [address] [facility] [id number] [address] [place] [address] Jan, Type 2 diabetes mellitus wit h hyperglycemia E11.65 ; Pain in right foot M79.671 and Localized edema R60.0 [facility] [address] [facility] [id number] [address] [place] [address] Jan, [facility] [address] [facility] [id number] [address] [place] [address] Dec, Right foot pain M79.671 ; In somnia, unspecified type G47.00 and Diabetes E11.9 [facility] [address] [facility] [id number] [address] [place] [address] Dec, Pain in right foot M79.671 [facility] [address] [facility] [id number] [address] [place] [address] Nov, [facility] [address] [facility] [id number] [address] [place] [address] Sep, [facility] [address] [facility] [id number] [address] [place] [address] Sep, Diabetes mellitus, type II 2 50.00 [facility] [address] [facility] [id number] [address] [place] [address] 14 May, 2014 [facility] [address] [facility] [id number] [address] [place] [address] May, [facility] [address] [id number] [address] [place] [address] [place] [address] 19 Apr, 2014 [facility] [address] [id number] [address] [place] [address], [place] [address] 19 Apr, 2014 [facility] [address] [id number] [address] [place] [address], [place] [address] 16 Apr, 2014 [facility] [address] [id number] [address] [place] [address], [place] [address] 16 Apr, 2014 [facility] [address] [id number] [address] [place] [address], [place] [address] 12 Apr, 2014 [facility] [address] [id number] [address] [place] [address], [place] [address] 12 Apr, 2014 [facility] [address] [id number] [address] [place] [address], [place] [address] 05 Apr, 2014 [facility] [address] [id number] [address] [place] [address], [place] [address] 05 Apr, 2014 [facility] [address] [id number] [address] [place] [address], [place] [address] 18 Jan, 2014 [facility] [address] [id number] [address] [place] [address], [place] [address] 18 Jan, 2014 [facility] [address] [id number] [address] [place] [address], [place] [address] 15 Jan, 2014 [facility] [address] [id number] [address] [place] [address], [place] [address] 15 Jan, 2014 [facility] [address] [id number] [address] [place] [address], [place] [address] 10 Dec, 2013 [facility] [address] [id number] [address] [place] [address], [place] [address] 10 Dec, 2013 [facility] [address] [id number] [address] [place] [address], [place] [address] 13 Nov, 2013 [facility] [address] [id number] [address] [place] [address], [place] [address] 13 Nov, 2013 [facility] [address] [id number] [facility] [place] [address] Oct, 2013 [facility] [address] [id number] [facility] [place] [address] 26 Oct, 2013 [facility] [address] [id number] [facility] [place] [address] 05 Oct, 2013 [facility] [address] [id number] [address] [place] [address], [place] [address] 05 Oct, 2013 [facility] [address] [id number] [address] [place] [address], [place] [address] Sep, [facility] [address] [id number] [address] [place] [address], [place] [address] Sep, [facility] [address] [id number] [address] [place] [address], [place] [address] Sep, [facility] [address] [id number] [address] [place] [address], [place] [address] Sep, [facility] [address] [id number] [address] [place] [address], [place] [address] Sep, [facility] [address] [id number] [address] [place] [address], [place] [address] Sep, [facility] [address] [id number] [address] [place] [address], [place] [address] Sep, [facility] [address] [id number] [address] [place] [address], [place] [id number] Sep, [facility] [address] [id number] [address] [place] [address], [place] [address] Sep, [facility] [address] [id number] [address] [place] [address], [place] [address] Sep, [facility] [address] [id number] [address] [place] [address], [place] [address] Sep, [facility] [address] [id number] [address] [place] [address], [place] [address] Sep, [facility] [address] [id number] [facility] [place] [address] Aug, [facility] [address] [id number] [address] [place] [address], [place] [address] Aug, [facility] [address] [id number] [address] [place] [address], [place] [address] Aug, [facility] [address] [id number] [address] [place] [address], [place] [address] Aug, [facility] [address] [id number] [address] [place] [address], [place] [id number] June, [facility] [address] [id number] [address] [place] [address], [place] [address] May, [facility] [address] [id number] [address] [place] [address], [place] [address] May, [facility] [address] [id number] 14 [place] [address], [place] [address] May, [facility] [address] [id number] [address] [place] [address], [place] [address] 18 May, 2013 [facility] [address] [id number] [address] [place] [address], [place] [address] May, [facility] [address] [id number] [address] [place] [address], [place] [address] 17 May, 2013 [facility] [place] [facility] [address] [id number] [address] [place] [address], [place] [address] 16 May, 2013 [facility] [place] [facility] [address] [id number] [address] [place] [address], [place] [address] 16 May, 2013 [facility] [place] [facility] [address] [id number] [address] [place] [address], [place] [address] 14 May, 2013 [facility] [place] [facility] [address] [id number] [address] [place] [address], [place] [address] May, [facility] [address] [id number] [address] [place] [address] 14 May, 2013 [facility] [address] [id number] [address] [place] [address], [place] [address] May, [facility] [address] [id number] [address] [place] [address], [place] [address] Apr, [facility] [address] [id number] [address] [place] [address], [place] [address] Apr, [facility] [address] [id number] [address] [place] [address], [place] [address] Mar, [facility] [address] [id number] [address] [place] [address], [place] [address] Mar, [facility] [address] [id number] [address] [place] [address], [place] [address] Dec, [facility] [address] [id number] [address] [place] [address], [place] [address] Dec, [facility] [address] [id number] [address] [place] [address], [place] [address] Dec, [facility] [address] [id number] [address] [place] [address], [place] [address] Dec, [facility] [address] [id number] [address] [place] [address], [place] [address] Nov, [facility] [address] [id number] [address] [place] [address], [place] [address] Nov, [facility] [address] [id number] [address] [place] [address], [place] [address] Oct, [facility] [address] [id number] [address] [place] [address], [place] [address] Oct, [facility] [address] [id number] [address] [place] [address], [place] [address] Aug, [facility] [address] [id number] [address] [place] [address], [place] [address] Aug, [facility] [address] [id number] [address] [place] [address], [place] [address] Aug, [facility] [address] [id number] [address] [place] [address], [place] [address] Jul, [facility] [address] [id number] [address] [place] [address], [place] [address] June, [facility] [address] [id number] [address] [place] [address], [place] [address] June, [facility] [address] [id number] [address] [place] [address], [place] [address] Apr, [facility] [address] [id number] [address] [place] [address], [place] [address] Mar, [facility] [address] [id number] [address] [place] [address], [place] [address] Mar, [facility] [address] [id number] [address] [place] [address], [place] [address] Mar, [facility] [address] [id number] [address] [place] [address], [place] [address] Mar, [facility] [address] [id number] [address] [place] [address], [place] [address] Mar, [facility] [address] [id number] [address] [place] [address], [place] [address] Feb, [facility] [address] [id number] [address] [place] [address], [place] [address] Feb, [facility] [address] [id number] [address] [place] [address], [place] [address] Feb, [facility] [address] [id number] [address] [place] [address], [place] [address] Feb, [facility] [address] [id number] [address] [place] [address], [place] [address] Jan, [facility] [address] [id number] [address] [place] [address], [place] [address] Jan, [facility] [address] [id number] [address] [place] [address], [place] [address] Dec, [facility] [address] [id number] [address] [place] [address], [place] [address] Dec, [facility] [address] [id number] [address] [place] [address], [place] [address] Dec, [facility] [address] [id number] [address] [place] [address], [place] [address] Dec, [facility] [address] [id number] [address] [place] [address], [place] [address] Oct, [facility] [address] [id number] [address] [place] [address], [place] [address] Aug, [facility] [address] [id number] [address] [place] [address], [place] [address] Jul, [facility] [address] [id number] [address] [place] [address], [place] [address] June, [facility] [address] [id number] [address] [place] [address], [place] [address] June, [facility] [address] [id number] [address] [place] [address], [place] [address] June, [facility] [address] [id number] [address] [place] [address], [place] [address] June, [facility] [address] [id number] [address] [place] [address], [place] [address] June, [facility] [address] [id number] [address] [place] [address], [place] [address] May, [facility] [address] [id number] [address] [place] [address], [place] [address] May, [facility] [address] [id number] [address] [place] [address], [place] [address] Apr, [facility] [address] [id number] [address] [place] [address], [place] [address] 13 Apr, 2011 [facility] [address] [id number] [address] [place] [address], [place] [address] 27 Mar, 2011 [facility] [address] [id number] [address] [place] [address], [place] [address] Feb, [facility] [address] [id number] [address] [place] [address], [place] [address] Nov, [facility] [address] [id number] [address] [place] [address], [place] [address] Nov, [facility] [address] [id number] [address] [place] [address], [place] [address] Nov, [facility] [address] [id number] [address] [place] [address], [place] [address] Apr, [facility] [address] [id number] [address] [place] [address], [place] [address] Jan, [facility] [address] [id number] [address] [place] [address], [place] [address] Dec, [facility] [address] [id number] [address] [place] [address], [place] [address] Dec, [facility] [address] [id number] [address] [place] [address], [place] [address] 29 Nov, [address] [facility] [address] [id number] [address] [place] [address], [place] [address] June, [facility] [address] [id number] [address] [place] [address], [place] [address] Jan, [facility] [address] [id number] [address] [place] [address], [place] [address] Jan, [facility] [address] [id number] [address] [place] [address], [place] [address] Jan, [facility] [address] [id number] [address] [place] [id number] 22 Jan, 2009 [facility] [address] [id number] [address] [place] [id number] 16 Jan, 2009 [facility] [address] [id number] [address] [place] [address] Jan, [facility] [address] [id number] [address] [place] [address] Jan, [facility] [address] [id number] [address] [place] [address] Jan, [facility] [address] [id number] [address] [place] [address] Jan, [facility] [address] [id number] [address] [place] [address] Jan, [facility] [address] [id number] [address] [place] [id number] Jan, [facility] [address] [id number] [address] [place] [id number] Jan, [facility] [address] [id number] [address] [place] [address] Dec, [facility] [address] [id number] [address] [place] [address] Dec, [facility] [address] [id number] [address] [place] [address] Dec, [facility] [address] [id number] [address] [place] [address] Dec, [facility] [address] [id number] [address] [place] [address] Nov, [facility] [address] [id number] [address] [place] [id number] 10 Oct, 2008 IMMUNIZATIONS No Known Immunizations [...] knee pseudogout s tatus post joint fluid analysis-[facility] 09/20/16 Hospitalization History kidneys--[facility] 11/2017 Hospitalization History Diverticulitis--[facility] 06/2018
--- OUTSIDE RECORDS SUMMARY | 2019-07-04 10:18 | XMS REPORT ---
Author Author Charles Perez Doctor Organization [facility] [address] Address Unknown Phone Unavailable Care Team Providers Care Clay Press Operator Name Role Phone Migration, Doctor Unavailable Unavailable PROBLEMS Type Condition ICD9-CM Code RSC05-KS Code Onset Dates Condition S tatus SNOMED Code Problem Hypertriglyceridemia E78.1 Active 668234742 Problem Coronary atherosclerosis of unspecified type of vessel, [place] or graft I25.10 Active 566154872 Problem Gastroesophageal reflux disease, esophagitis pre sence not specified K21.9 Active 336494167 Problem 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 5 Active 320789382 Problem End stage kidney disease N18.6 Activ e 04559495 Problem Gout of left knee due to renal impairment, unspe cified chronicity M10.362 Active 244573567 Problem Type 2 diabetes mellitus with hyperglycemia E11.65 Active 944503690830794 Problem Mood disorder F39 Active 703720 05 Problem Delayed gastric emptying K30 Activ e 311470168 Problem Kidney stone N20.0 Active 7902741 7 Problem Proteinuria R80.9 Active 17341969 Problem Sinusitis J32.9 Active 75052014 ALLERGIES No Information ENCOUNTERS Encounter Location Date Diagnosis [facility] [address] [facility] [id number] [address] [place] [address] Aug, [facility] [address] [facility] [id number] [address] [place] [address] Jul, Type 2 diabetes mellitus wit h hyperglycemia E11.65 [facility] [address] [facility] [id number] [address] [place] [address] Jul, Type 2 diabetes mellitus wit h hyperglycemia E11.65 [facility] [address] [facility] [id number] [address] [place] [address] Jul, Type 2 diabetes mellitus wit h hyperglycemia E11.65 [facility] [address] [facility] [id number] [address] [place] [address] June, Type 2 diabetes mellitus wit h hyperglycemia E11.65 ; End stage kidney disease N18.6 and Callus L84 [facility] [address] [facility] [id number] [address] [place] [address] May, [facility] [address] [facility] [id number] [address] [place] [address] May, Essential hypertension I10 [facility] [address] [facility] [id number] [address] [place] [address] Apr, [facility] [address] [facility] [id number] [address] [place] [address] Apr, Type 2 diabetes mellitus wit h hyperglycemia E11.65 and Essential hypertension I10 [facility] [address] [facility] [id number] [address] [place] [address] Apr, [facility] [address] [facility] [id number] [address] [place] [address] Apr, Type 2 diabetes mellitus wit h hyperglycemia E11.65 [facility] [address] [facility] [id number] [address] [place] [address] Apr, [facility] [address] [facility] [id number] [address] [place] [address] Mar, Type 2 diabetes mellitus wit h hyperglycemia E11.65 [facility] [address] [facility] [id number] [address] [place] [address] Mar, Type 2 diabetes mellitus wit h diabetic nephropathy E11.21 ; End stage kidney disease N18.6 ; Callus L84 and Onychomycosis B35.1 [facility] [address] [facility] [id number] [address] [place] [address] Feb, [facility] [address] [place] [id number] [address] [place] [address] Feb, Sinusitis J32.9 ; Nausea R11 .0 and Otalgia H92.09 [facility] [address] [address] Jan, [place] [address] [address] Jan, [place] [address] [address] Jan, Essential hypertension I10 ; Gout, unspecified M10.9 ; Coronary atherosclerosis of unspecified type of vessel, [place] or graft I25.10 ; Mixed hyperlipidemia E78.2 and Type 2 diabetes mellitus with hyperglycemia E11.65 [place] [address] [address] Dec, Chronic kidney disease, stag e 3 N18.3 ; Proteinuria R80.9 ; Diabetes mellitus E11.9 ; Acute kidney failure, unspecified N17.9 and Mixed hyperlipidemia E78.2 [place] [address] [address] 16 Dec, 2017 Chronic kidney disease, stag e 3 N18.3 ; Essential hypertension I10 ; Proteinuria R80.9 ; Diabetes mellitus E11.9 ; Kidney stone N20.0 ; Acute kidney failure, unspecified N17.9 ; Edema R60.9 and Mixed hyperlipidemia E78.2 [place] [address] [place] [id number] [address] [place] [address] 14 Dec, 2017 Type 2 diabetes mellitus wit h hyperglycemia E11.[address] [address] 14 Dec, 2017 Chronic kidney disease, stag e 3 N18.3 [place] [address] [address] 06 Dec, 2017 Type 2 diabetes mellitus wit h hyperglycemia E11.65 [place] [address] [place] [id number] [address] [place] [address] Dec, [place] [address] [address] Nov, Type 2 diabetes mellitus wit h hyperglycemia E11.65 [place] [address] [place] [id number] [place] [address] Nov, [place] [address] [address] Nov, Chronic kidney disease, stag e V (very severe) N18.5 ; Type 2 diabetes mellitus with hyperglycemia E11.65 ; Encounter for immunization Z23 and Delayed gastric emptying K30 [place] [address] [place] [id number] [place] [address] Nov, [place] [address] [address] Oct, Essential hypertension I10 ; Coronary atherosclerosis of unspecified type of vessel, [place] or graft I25.10 ; Type 2 diabetes mellitus with hyperglycemia E11.65 and Gout, unspecified M10.9 [place] [address] [address] 07 Oct, 2017 Chronic kidney disease, stag e V (very severe) N18.5 [place] [address] [address] Oct, Mixed hyperlipidemia E78.2 [place] [address] [place] [id number] [place] [address] Sep, Type 2 diabetes mellitus wit h hyperglycemia E11.65 [place] [address] [address] Sep, Mixed hyperlipidemia E78.2 [place] [address] [place] [id number] [place] [address] Sep, Chronic kidney disease, stag e V (very severe) N18.5 [place] [address] [address] 15 Sep, 2017 Type 2 diabetes mellitus wit h hyperglycemia E11.65 and Essential hypertension I10 [place] [address] [address] Sep, Type 2 diabetes mellitus wit h hyperglycemia E11.65 [place] [address] [address] 16 Aug, 2017 Gout, unspecified M10.9 ; Ga stroesophageal reflux disease, esophagitis presence not specified K21.9 ; Mood disorder F39 and Coronary atherosclerosis of unspecified type of vessel, [place] or graft I25.10 [place] [address] [address] Aug, [place] [address] [address] June, Type 2 diabetes mellitus wit h hyperglycemia E11.65 [place] [address] [address] May, Mood disorder F39 ; Gastroes ophageal reflux disease, esophagitis presence not specified K21.9 ; Gout, unspecified M10.9 ; Coronary atherosclerosis of unspecified type of vessel, [place] or graft I25.10 and Type 2 diabetes mellitus with hyperglycemia E11.65 [place] [address] [address] May, Type 2 diabetes mellitus wit h hyperglycemia E11.65 [place] [address] [address] Apr, Diabetes E11.9 and Mood diso rder F39 [place] [address] [address] 15 Mar, 2017 Primary osteoarthritis of le ft knee M17.12 and Tear of lateral meniscus of left knee, unspecified tear type, unspecified whether old or current tear, initial encounter S83.282A [place] [address] [address] Feb, Mood disorder F39 [facility] [address] [facility] [id number] [address] [place] [address] Feb, Pseudogout M11.20 [facility] [address] 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 [address] [id number] [address] [place] [address] Jan, [facility] [address] 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 [id number] [address] [place] [address] Jan, Gout of left knee due to eloisa al impairment, unspecified chronicity M10.362 ; Type 2 diabetes mellitus with diabetic nephropathy E11.21 ; Synovial cyst of popliteal space [Mejia], left knee M71.22 and Low back pain M54.5 [place] [address] [facility] [id number] [address] [place] [address] Dec, Pseudogout M11.20 [place] [address] [facility] [id number] [address] [place] [address] Dec, [place] [address] [facility] [id number] [address] [place] [address] 13 Dec, 2016 Type 2 diabetes mellitus wit h diabetic nephropathy E11.21 and Right anterior knee pain M25.561 [place] [address] [facility] [id number] [address] [place] [address] Nov, Pseudogout M11.20 [facility] [address] [facility] [id number] [address] [place] [address] Nov, Pseudogout M11.20 ; Chronic kidney disease, stage 3 N18.3 ; Mixed hyperlipidemia E78.2 ; Gout, unspecified M10.9 ; Coronary atherosclerosis of unspecified type of vessel, [place] or graft I25.10 ; Mood disorder F39 and Gastroesophageal reflux disease, esophagitis presence not specified K21.9 [facility] [address] [facility] [id number] [address] [place] [address] Nov, [facility] [address] [facility] [id number] [address] [place] [address] Oct, Pseudogout M11.20 [facility] [address] [place] [id number] [address] [place] [address] Sep, Pseudogout M11.20 [facility] [address] [place] [id number] [address] [place] [address] Sep, Pseudogout M11.20 [facility] [address] [place] [id number] [address] [place] [address] Sep, [facility] [address] [place] [id number] [place] [id number] Aug, [facility] [address] [place] [id number] [address] [place] [address] Aug, Diabetes E11.9 ; Chronic kid tahir disease, stage 3 N18.3 ; Hyperuricemia E79.0 ; Mixed hyperlipidemia E78.2 ; Gastroesophageal reflux disease, esophagitis presence not specified K21.9 ; Gout, unspecified M10.9 ; Coronary atherosclerosis of unspecified type of vessel, [place] or graft I25.10 and Mood disorder F39 [facility] [address] [facility] [id number] [address] [place] [address] June, [facility] [address] [place] [id number] [address] [place] [address] June, [facility] [address] [facility] [id number] [address] [place] [address] June, [facility] [address] [facility] [id number] [address] [place] [address] May, Chronic renal failure, stage 3 (moderate) N18.3 [facility] [address] [id number] [address] [place] [address] May, Diabetes E11.9 [facility] [address] [id number] [address] [place] [address] May, [facility] [address] [id number] [address] [place] [address] Apr, [facility] [address] [id number] [address] [place] [address] Apr, [facility] [address] [id number] [address] [place] [address] Apr, Cellulitis of right lower ex tremity L03.115 and Diabetes E11.9 [facility] [address] [facility] [id number] [address] [place] [address] Apr, Type 2 diabetes mellitus wit h hyperglycemia E11.65 [facility] [address] [facility] [id number] [address] [place] [address] Mar, Cellulitis of right lower ex tremity L03.115 and Low back pain M54.5 [place] [address] [facility] [id number] [address] [place] [address] Mar, [facility] [address] [facility] [id number] [address] [place] [address] Mar, Cellulitis of right lower ex tremity L03.115 [facility] [address] [facility] [id number] [address] [place] [address] Mar, Cellulitis of right lower ex tremity L03.115 [facility] [address] [facility] [id number] [address] [place] [address] Feb, Cellulitis of right lower ex tremity L03.115 [facility] [address] [facility] [id number] [address] [place] [address] Feb, Cellulitis of right lower ex tremity L03.115 [place] [address] [id number] [address] [place] [address] Feb, [facility] [address] [id number] [address] [place] [address] Feb, Leukocytosis, unspecified ty pe D72.829 ; Chronic renal failure, stage 3 (moderate) N18.3 and Type 2 diabetes mellitus with hyperglycemia E11.65 [place] [address] [id number] [address] [place] [address] Feb, Leukocytosis, unspecified ty pe D72.829 [place] [address] [id number] [address] [place] [address] Feb, [place] [address] [id number] [address] [place] [address] Feb, Cellulitis of right lower ex tremity L03.115 ; Thrush B37.0 ; Gout of left knee due to renal impairment, unspecified chronicity M10.362 and Chronic renal failure, stage 3 (moderate) N18.3 [place] [address] [id number] [address] [place] [address] Feb, [place] [address] [id number] [address] [place] [address] Feb, Right foot infection L08.9 ; Type 2 diabetes mellitus with hyperglycemia E11.65 ; Arthralgia of left knee M25.562 ; Chronic kidney disease, stage 3 N18.3 and Diabetes E11.9 [place] [address] [id number] [address] [place] [address] Feb, [place] [address] [id number] [address] [place] [address] Feb, Diabetes E11.9 ; Arthralgia of left knee M25.562 and Thrush B37.0 [place] [address] [id number] [address] [place] [address] Jan, [place] [address] [place] [id number] [place] [address] 08 Jan, 2016 Type 2 diabetes mellitus wit h hyperglycemia E11.65 ; Chronic renal failure, stage 3 (moderate) N18.3 and Leukocytosis, unspecified type D72.829 [facility] [address] [address] Jan, Type 2 diabetes mellitus wit h hyperglycemia E11.65 [place] [address] [address] Dec, Gout of left knee due to eloisa al impairment, unspecified chronicity M10.362 [place] [address] [address] Dec, Gout of left knee due to eloisa al impairment, unspecified chronicity M10.362 and Diabetes E11.9 [place] [address] [address] Dec, [place] [address] [address] Dec, [facility] [address] [address] Dec, [place] [address] [address] Dec, Chronic kidney disease, stag e 3 N18.3 ; Type 2 diabetes mellitus with diabetic nephropathy E11.21 ; Type 2 diabetes mellitus with hyperglycemia E11.65 and 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 [id number] [address] [place] [address] Jul, Diabetes E11.9 ; Low back pa in M54.5 and Other chronic pain G89.29 [facility] [address] [id number] [address] [place] [address] June, [facility] [address] [facility] [id number] [address] [place] [address] June, [facility] [address] [id number] [address] [place] [address] Jan, Viral illness B34.9 [facility] [address] [facility] [id number] [address] [place] [address] Jan, Type 2 diabetes mellitus wit h hyperglycemia E11.65 ; Pain in right foot M79.671 and Localized edema R60.0 [facility] [address] [facility] [id number] [address] [place] [address] Jan, [facility] [address] [facility] [id number] [address] [place] [address] Dec, Right foot pain M79.671 ; In somnia, unspecified type G47.00 and Diabetes E11.9 [facility] [address] [facility] [id number] [address] [place] [address] Dec, Pain in right foot M79.671 [facility] [address] [id number] [address] [place] [address] Nov, [facility] [address] [facility] [id number] [address] [place] [address] Sep, [facility] [address] [facility] [id number] [address] [place] [address] Sep, Diabetes mellitus, type II 2 50.00 [facility] [address] [facility] [id number] [address] [place] [address] May, [facility] [address] [id number] [address] [place] [address] [place] [address] 13 May, 2014 [facility] [address] [id number] [address] [place] [address], [place] [address] 19 Apr, 2014 [facility] [address] [id number] [address] [place] [address], [place] [address] 19 Apr, 2014 [facility] [address] [id number] [address] [place] [address], [place] [address] 16 Apr, 2014 [facility] [address] [id number] [address] [place] [address], [place] [address] 16 Apr, 2014 [facility] [address] [id number] [address] [place] [address], [place] [address] 12 Apr, 2014 [facility] [address] [id number] [address] [place] [address], [place] [address] 12 Apr, 2014 [facility] [address] [id number] [address] [place] [address], [place] [address] 05 Apr, 2014 [facility] [address] [id number] [address] [place] [address], [place] [address] 05 Apr, 2014 [facility] [address] [id number] [address] [place] [address], [place] [address] 18 Jan, 2014 [facility] [address] [id number] [address] [place] [address], [place] [address] 18 Jan, 2014 [facility] [address] [id number] [address] [place] [address], [place] [address] 15 Jan, 2014 [facility] [address] [id number] [address] [place] [address], [place] [address] 15 Jan, 2014 [facility] [address] [id number] [address] [place] [address], [place] [address] 10 Dec, 2013 [facility] [address] [id number] [address] [place] [address], [place] [address] 10 Dec, 2013 [facility] [address] [id number] [address] [place] [address], [place] [address] 13 Nov, 2013 [facility] [address] [id number] [facility] [place] [address] 13 Nov, 2013 [facility] [address] [id number] [facility] [place] [address] Oct, [facility] [address] [id number] [address] [place] [address], [place] [address] Oct, 2013 [facility] [address] [id number] [address] [place] [address], [place] [address] 05 Oct, 2013 [facility] [address] [id number] [address] [place] [address], [place] [address] 05 Oct, 2013 [facility] [address] [id number] [address] [place] [address], [place] [address] Sep, [facility] [address] [id number] [address] [place] [address], [place] [address] Sep, [facility] [address] [id number] [address] [place] [address], [place] [address] Sep, [facility] [address] [id number] [address] [place] [address], [place] [address] Sep, [facility] [address] [id number] [address] [place] [address], [place] [address] Sep, [facility] [address] [id number] [address] [place] [address], [place] [address] Sep, [facility] [address] [id number] [address] [place] [address], [place] [address] Sep, [facility] [address] [id number] [address] [place] [address], [place] [address] Sep, [facility] [address] [id number] [address] [place] [address], [place] [address] Sep, [facility] [address] [id number] [address] [place] [address], [place] [address] Sep, [facility] [address] [id number] [address] [place] [address], [place] [address] Sep, [facility] [address] [id number] [address] [place] [address] Sep, [facility] [address] [id number] [address] [place] [address], [place] [address] Aug, [facility] [address] [id number] [address] [place] [address], [place] [address] Aug, [facility] [address] [id number] [address] [place] [address], [place] [address] Aug, [facility] [address] [id number] [address] [place] [address], [place] [address] Aug, [facility] [address] [id number] [address] [place] [address], [place] [address] June, [facility] [address] [id number] [address] [place] [address], [place] [address] May, [facility] [address] [id number] [address] [place] [address], [place] [address] 24 May, 2013 [facility] [address] [id number] [address] [place] [address], [place] [address] May, [facility] [facility] [address] [id number] [address] [place] [address], [place] [address] 18 May, 2013 [facility] [address] [id number] [address] [place] [address], [place] [address] 17 May, 2013 [facility] [address] [id number] [address] [place] [address], [place] [address] 17 May, 2013 [facility] [place] [facility] [address] [id number] [address] [place] [address], [place] [address] 16 May, 2013 [facility] [place] [facility] [address] [id number] [address] [place] [address], [place] [address] 16 May, 2013 [facility] [place] [facility] [address] [id number] [address] [place] [address], [place] [address] May, [facility] [place] [facility] [address] [id number] [address] [place] [address] 14 May, 2013 [facility] [address] [id number] [address] [place] [address], [place] [address] 14 May, 2013 [facility] [address] [id number] [address] [place] [address], [place] [address] 14 May, 2013 [facility] [address] [id number] [address] [place] [address], [place] [address] Apr, [facility] [address] [id number] [address] [place] [address], [place] [address] Apr, [facility] [address] [id number] [address] [place] [address], [place] [address] Mar, [facility] [address] [id number] [address] [place] [address], [place] [address] Mar, [facility] [address] [id number] [address] [place] [address], [place] [address] Dec, [facility] [address] [id number] [address] [place] [address], [place] [address] Dec, [facility] [address] [id number] [address] [place] [address], [place] [address] Dec, [facility] [address] [id number] [address] [place] [address], [place] [address] Dec, [facility] [address] [id number] [address] [place] [address], [place] [address] Nov, [facility] [address] [id number] [address] [place] [address], [place] [address] Nov, [facility] [address] [id number] [address] [place] [address], [place] [address] 30 Oct, 2012 [facility] [place] [facility] [address] [id number] [address] [place] [address], [place] [address] 27 Oct, 2012 [facility] [address] [id number] [address] [place] [address], [place] [address] Aug, [facility] [address] [id number] [address] [place] [address], [place] [address] Aug, [facility] [address] [id number] [address] [place] [address], [place] [address] Aug, [facility] [address] [id number] [address] [place] [address], [place] [address] Jul, [facility] [address] [id number] [address] [place] [address], [place] [address] June, [facility] [address] [id number] [address] [place] [address], [place] [address] June, [facility] [address] [id number] [address] [place] [address], [place] [address] Apr, [facility] [address] [id number] [address] [place] [address], [place] [address] Mar, [facility] [address] [id number] [address] [place] [address], [place] [address] Mar, [facility] [address] [id number] [address] [place] [address], [place] [address] Mar, [facility] [address] [id number] [address] [place] [address], [place] [address] Mar, [facility] [address] [id number] [address] [place] [address], [place] [address] Mar, [facility] [address] [id number] [address] [place] [address], [place] [address] Feb, [facility] [address] [id number] [address] [place] [address], [place] [address] Feb, [facility] [address] [id number] [address] [place] [address], [place] [address] Feb, [facility] [address] [id number] [address] [place] [address], [place] [address] Feb, [facility] [address] [id number] [address] [place] [address], [place] [address] Jan, [facility] [address] [id number] [address] [place] [address], [place] [address] Jan, [facility] [address] [id number] [address] [place] [address], [place] [address] Dec, [facility] [address] [id number] [address] [place] [address], [place] [address] Dec, [facility] [address] [id number] [address] [place] [address], [place] [address] Dec, [facility] [address] [id number] [address] [place] [address], [place] [address] Dec, [facility] [address] [id number] [address] [place] [address], [place] [address] Oct, [facility] [address] [id number] [address] [place] [address], [place] [address] Aug, [facility] [address] [id number] [address] [place] [address], [place] [address] Jul, [facility] [address] [id number] [address] [place] [address], [place] [address] June, [facility] [address] [id number] [address] [place] [address], [place] [address] June, [facility] [address] [id number] [address] [place] [address], [place] [address] June, [facility] [address] [id number] [address] [place] [address], [place] [address] June, [facility] [address] [id number] [address] [place] [address], [place] [address] June, [facility] [address] [id number] [address] [place] [address], [place] [address] May, [facility] [address] [id number] [address] [place] [address], [place] [address] May, [facility] [address] [id number] [address] [place] [address], [place] [address] 15 Apr, 2011 [facility] [address] [id number] [address] [place] [address], [place] [address] 13 Apr, 2011 [facility] [address] [id number] [address] [place] [address], [place] [address] Mar, [facility] [address] [id number] [address] [place] [address], [place] [address] Feb, [facility] [address] [id number] [address] [place] [address], [place] [address] Nov, [facility] [address] [id number] [address] [place] [address], [place] [address] Nov, [facility] [address] [id number] [address] [place] [address], [place] [address] Nov, [facility] [address] [id number] [address] [place] [address], [place] [address] Apr, [facility] [address] [id number] [address] [place] [address], [place] [address] Jan, [facility] [address] [id number] [address] [place] [address], [place] [address] Dec, [facility] [address] [id number] [address] [place] [address], [place] [address] Dec, [facility] [address] [id number] [address] [place] [address], [place] [address] 29 Nov, 2009 [facility] [address] [id number] [address] [place] [address], [place] [address] June, [facility] [address] [id number] [address] [place] [address], [place] [address] 29 Jan, 2009 [facility] [address] [id number] [address] [place] [address], [place] [address] Jan, [facility] [address] [id number] [address] [place] [address] 23 Jan, 2009 [facility] [address] [id number] [address] [place] [address] 22 Jan, 2009 [facility] [address] [id number] [address] [place] [address] 16 Jan, 2009 [facility] [address] [id number] [address] [place] [address] 15 Jan, 2009 [facility] [address] [id number] [address] [place] [address] 15 Jan, 2009 [facility] [address] [id number] [address] [place] [address] 11 Jan, 2009 [facility] [address] [id number] [address] [place] [address] 11 Jan, 2009 [facility] [address] [id number] [address] [place] [address] 10 Jan, 2009 [facility] [address] [id number] [address] [place] [address] 04 Jan, 2009 [facility] [address] [id number] [address] [place] [address] 02 Jan, 2009 [facility] [address] [id number] [address] [place] [address] 25 Dec, 2008 [facility] [address] [id number] [address] [place] [address] Dec, [facility] [address] [id number] [address] [place] [address] 17 Dec, 2008 [facility] [address] [id number] [address] [place] [address] 17 Dec, 2008 [facility] [address] [id number] [address] [place] [address] 20 Nov, 2008 [facility] [address] [id number] [address] [place] [address] 10 Oct, 2008 IMMUNIZATIONS No Known Immunizations [...] s tatus post joint fluid analysis-[facility] 09/20/16 Hospitalization History kidneys--[facility] 11/2017 Hospitalization History Diverticulitis--[facility] 06/2018
--- OUTSIDE RECORDS SUMMARY | 2019-07-04 10:19 | XMS REPORT ---
Author Author Charles Perez Doctor Organization [facility] Address Unknown Phone Unavailable Care Team Providers Care Traffic Reporter Name Role Phone Migration, Doctor Unavailable Unavailable PROBLEMS Type Condition ICD9-CM Code CBV77-FR Code Onset Dates Condition S tatus SNOMED Code Problem Hypertriglyceridemia E78.1 Active 671443578 Problem Coronary atherosclerosis of unspecified type of vessel, upper sioux or graft I25.10 Active 846142194 Problem Gastroesophageal reflux disease, esophagitis pre sence not specified K21.9 Active 128709960 Problem medical terminologist 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 Active 713763681 Problem Insomnia, unspecified G47.00 Active 192244915 Problem Chronic kidney disease, stage 3 N18.3 Active 185451175 Problem 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 521208751 Problem Primary osteoarthritis of left knee M17.12 Active [id number] Problem Essential hypertension I10 Active 58422646 Problem Chronic kidney disease, stage V (very severe) N18. 5 Active 125943435 Problem End stage kidney disease N18.6 Activ e 92283656 Problem Gout of left knee due to renal impairment, unspe cified chronicity M10.362 Active 540814482 Problem Type 2 diabetes mellitus with hyperglycemia E11.65 Active 501780315494481 Problem Mood disorder F39 Active 229681 05 Problem Delayed gastric emptying K30 Activ e 343471274 Problem Kidney stone N20.0 Active 7015870 7 Problem Proteinuria R80.9 Active 11043065 Problem Sinusitis J32.9 Active 54671761 ALLERGIES No Information ENCOUNTERS Encounter Location Date Diagnosis [facility] [address] [id number] [address] [place] [address] June, Type 2 diabetes mellitus wit h hyperglycemia E11.65 ; End stage kidney disease N18.6 and Callus L84 [facility] [address] [facility] [id number] [address] [place] [address] May, [facility] [address] [id number] [place] [address] May, Essential hypertension I10 [facility] [address] [address] Apr, [facility] [address] [address] Apr, Type 2 diabetes mellitus wit h hyperglycemia E11.65 and Essential hypertension I10 [facility] [address] [address] Apr, [facility] [address] [address] Apr, Type 2 diabetes mellitus wit h hyperglycemia E11.65 [facility] [address] [address] Apr, [facility] [address] [address] Mar, Type 2 diabetes mellitus wit h hyperglycemia E11.65 [facility] [address] [address] Mar, Type 2 diabetes mellitus wit h diabetic nephropathy E11.21 ; End stage kidney disease N18.6 ; Callus L84 and Onychomycosis B35.1 [facility] [id number] [place] [address] Feb, [facility] [id number] [place] [address] Feb, Sinusitis J32.9 ; Nausea R11 .0 and Otalgia H92.09 [facility] [address] [address] Jan, [facility] [address] [address] Jan, [facility] [address] [address] Jan, Essential hypertension I10 ; Gout, unspecified M10.9 ; Coronary atherosclerosis of unspecified type of vessel, upper sioux or graft I25.10 ; Mixed hyperlipidemia E78.2 and Type 2 diabetes mellitus with hyperglycemia E11.65 [place] [address] [address] Dec, Chronic kidney disease, stag e 3 N18.3 ; Proteinuria R80.9 ; Diabetes mellitus E11.9 ; Acute kidney failure, unspecified N17.9 and Mixed hyperlipidemia E78.2 [place] [address] [address] 16 Dec, 2017 Chronic kidney disease, stag e 3 N18.3 ; Essential hypertension I10 ; Proteinuria R80.9 ; Diabetes mellitus E11.9 ; Kidney stone N20.0 ; Acute kidney failure, unspecified N17.9 ; Edema R60.9 and Mixed hyperlipidemia E78.2 [place] [address] [address] Dec, Type 2 diabetes mellitus wit h hyperglycemia E11.65 [place] [address] [address] 14 Dec, 2017 Chronic kidney disease, stag e 3 N18.3 [place] [address] [address] Dec, Type 2 diabetes mellitus wit h hyperglycemia E11.65 [place] [address] [address] Dec, [address] [address] Nov, Type 2 diabetes mellitus wit h hyperglycemia E11.65 [place] [address] [address] Nov, [address] [address] Nov, Chronic kidney disease, stag e V (very severe) N18.5 ; Type 2 diabetes mellitus with hyperglycemia E11.65 ; Encounter for immunization Z23 and Delayed gastric emptying K30 [place] [address] [place] [address] Nov, [place] [address] [id number] [place] [address] Oct, Essential hypertension I10 ; Coronary atherosclerosis of unspecified type of vessel, upper sioux or graft I25.10 ; Type 2 diabetes mellitus with hyperglycemia E11.65 and Gout, unspecified M10.9 [place] [id number] [place] [address] Oct, Chronic kidney disease, stag e V (very severe) N18.5 [place] [id number] [place] [address] Oct, Mixed hyperlipidemia E78.2 [place] [address] [address] Sep, Type 2 diabetes mellitus wit h hyperglycemia E11.65 [place] [address] [id number] [address] [place] [address] Sep, Mixed hyperlipidemia E78.2 [place] [address] [id number] [address] [place] [address] Sep, Chronic kidney disease, stag e V (very severe) N18.5 [place] [address] [address] Sep, Type 2 diabetes mellitus wit h hyperglycemia E11.65 and Essential hypertension I10 [place] [address] [address] Sep, Type 2 diabetes mellitus wit h hyperglycemia E11.65 [place] [address] [id number] [place] [address] Aug, Gout, unspecified M10.9 ; Ga stroesophageal reflux disease, esophagitis presence not specified K21.9 ; Mood disorder F39 and Coronary atherosclerosis of unspecified type of vessel, upper sioux or graft I25.10 [facility] [address] [facility] [id number] [address] [place] [address] Aug, [facility] [address] [facility] [id number] [address] [place] [address] June, Type 2 diabetes mellitus wit h hyperglycemia E11.65 [place] [address] [facility] [id number] [address] [place] [address] May, Mood disorder F39 ; Gastroes ophageal reflux disease, esophagitis presence not specified K21.9 ; Gout, unspecified M10.9 ; Coronary atherosclerosis of unspecified type of vessel, upper sioux or graft I25.10 and Type 2 diabetes mellitus with hyperglycemia E11.65 [place] [address] [facility] [id number] [address] [place] [address] May, Type 2 diabetes mellitus wit h hyperglycemia E11.65 [place] [address] [address] [id number] [address] [place] [address] Apr, Diabetes E11.9 and Mood diso rder F39 [place] [address] [facility] [id number] [address] [place] [address] Mar, Primary osteoarthritis of le ft knee M17.12 and Tear of lateral meniscus of left knee, unspecified tear type, unspecified whether old or current tear, initial encounter S83.282A [place] [address] [id number] [address] [place] [address] Feb, Mood disorder F39 [place] [address] [id number] [address] [place] [address] Feb, Pseudogout M11.20 [place] [address] [facility] [id number] [address] [place] [address] Jan, Other 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 terminal attack controller (current) dr anna mendosa Z79.899 [facility] [address] [facility] [id number] [address] [place] [address] Jan, [facility] [id number] [place] [address] Jan, Pseudogout M11.20 ; Type 2 d iabetes mellitus with hyperglycemia E11.65 and Other joint terminal attack controller (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 [place] [address] [place] [id number] [address] [place] [address] 18 Jan, 2017 Gout of left knee due to eloisa al impairment, unspecified chronicity M10.362 ; Type 2 diabetes mellitus with diabetic nephropathy E11.21 ; Synovial cyst of popliteal space [Mejia], left knee M71.22 and Low back pain M54.5 [place] [address] [address] Dec, Pseudogout M11.20 [place] [address] [address] [id number] [place] [address] 14 Dec, 2016 [place] [address] [address] Dec, Type 2 diabetes mellitus wit h diabetic nephropathy E11.21 and Right anterior knee pain M25.561 [place] [id number] [place] [address] Nov, Pseudogout M11.20 [place] [address] [address] [id number] [place] [address] Nov, Pseudogout M11.20 ; Chronic kidney disease, stage 3 N18.3 ; Mixed hyperlipidemia E78.2 ; Gout, unspecified M10.9 ; Coronary atherosclerosis of unspecified type of vessel, upper sioux or graft I25.10 ; Mood disorder F39 and Gastroesophageal reflux disease, esophagitis presence not specified K21.9 [place] [address] [place] [id number] [place] [address] Nov, [place] [address] [address] [id number] [place] [address] Oct, Pseudogout M11.20 [place] [address] [address] [id number] [place] [address] Sep, Pseudogout M11.20 [facility] [address] [facility] [id number] [address] [place] [address] Sep, Pseudogout M11.20 [facility] [address] [facility] [id number] [address] [place] [address] Sep, [facility] [id number] [place] [id number] Aug, [facility] [address] [facility] [id number] [address] [place] [address] Aug, Diabetes E11.9 ; Chronic kid tahir disease, stage 3 N18.3 ; Hyperuricemia E79.0 ; Mixed hyperlipidemia E78.2 ; Gastroesophageal reflux disease, esophagitis presence not specified K21.9 ; Gout, unspecified M10.9 ; Coronary atherosclerosis of unspecified type of vessel, upper sioux or graft I25.10 and Mood disorder F39 [facility] [id number] [place] [address] June, [facility] [id number] [address] [place] [address] June, [facility] [address] [address] June, [facility] [id number] [address] [place] [address] May, Chronic renal failure, stage 3 (moderate) N18.3 [facility] [id number] [address] [place] [address] May, Diabetes E11.9 [facility] [address] [facility] [id number] [address] [place] [address] May, [facility] [id number] [place] [address] Apr, [facility] [id number] [address] [place] [address] Apr, [facility] [address] [place] [address] Apr, Cellulitis of right lower ex tremity L03.115 and Diabetes E11.9 [place] [address] [facility] [id number] [address] [place] [address] Apr, Type 2 diabetes mellitus wit h hyperglycemia E11.65 [place] [address] [facility] [id number] [address] [place] [address] Mar, Cellulitis of right lower ex tremity L03.115 and Low back pain M54.5 [place] [address] [facility] [id number] [address] [place] [address] Mar, [place] [address] [facility] [id number] [address] [place] [address] Mar, Cellulitis of right lower ex tremity L03.115 [place] [address] [facility] [id number] [address] [place] [address] Mar, Cellulitis of right lower ex tremity L03.115 [place] [address] [facility] [id number] [address] [place] [address] Feb, Cellulitis of right lower ex tremity L03.115 [place] [address] [facility] [id number] [address] [place] [address] Feb, Cellulitis of right lower ex tremity L03.115 [place] [address] [facility] [id number] [address] [place] [address] Feb, [place] [address] [facility] [id number] [address] [place] [address] Feb, Leukocytosis, unspecified ty pe D72.829 ; Chronic renal failure, stage 3 (moderate) N18.3 and Type 2 diabetes mellitus with hyperglycemia E11.65 [place] [address] [id number] [address] [place] [address] Feb, Leukocytosis, unspecified ty pe D72.829 [place] [address] [id number] [address] [place] [address] Feb, [place] [address] [facility] [id number] [address] [place] [address] Feb, Cellulitis of right lower ex tremity L03.115 ; Thrush B37.0 ; Gout of left knee due to renal impairment, unspecified chronicity M10.362 and Chronic renal failure, stage 3 (moderate) N18.3 [place] [address] [facility] [id number] [address] [place] [address] Feb, [place] [address] [place] [id number] [address] [place] [address] Feb, Right foot infection L08.9 ; Type 2 diabetes mellitus with hyperglycemia E11.65 ; Arthralgia of left knee M25.562 ; Chronic kidney disease, stage 3 N18.3 and Diabetes E11.9 [place] [address] [place] [id number] [address] [place] [address] Feb, [place] [address] [facility] [id number] [address] [place] [address] Feb, Diabetes E11.9 ; Arthralgia of left knee M25.562 and Thrush B37.0 [place] [address] [facility] [id number] [address] [place] [address] Jan, [place] [address] [facility] [id number] [address] [place] [address] Jan, Type 2 diabetes mellitus wit h hyperglycemia E11.65 ; Chronic renal failure, stage 3 (moderate) N18.3 and Leukocytosis, unspecified type D72.829 [place] [address] [facility] [id number] [address] [place] [address] Jan, Type 2 diabetes mellitus wit h hyperglycemia E11.65 [place] [address] [facility] [id number] [address] [place] [address] Dec, Gout of left knee due to eloisa al impairment, unspecified chronicity M10.362 [place] [address] [address] 14 Dec, 2015 Gout of left knee due to eloisa al impairment, unspecified chronicity M10.362 and Diabetes E11.9 [facility] [address] [address] 14 Dec, 2015 [facility] [address] [address] Dec, [facility] [address] [address] 11 Dec, 2015 [facility] [address] [address] Dec, Chronic kidney disease, stag e 3 N18.3 ; Type 2 diabetes mellitus with diabetic nephropathy E11.21 ; Type 2 diabetes mellitus with hyperglycemia E11.65 and medical terminologist 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 [facility] [address] [address] Dec, Leukocytosis, unspecified ty pe D72.829 ; Chronic renal failure, stage 3 (moderate) N18.3 and Nausea R11.0 [place] [address] [address] Nov, [place] [address] [address] Jul, [place] [address] [address] Jul, Diabetes E11.9 ; Low back pa in M54.5 and Other chronic pain G89.29 [place] [address] [address] June, [place] [address] [address] June, [facility] [address] [address] Jan, Viral illness B34.9 [facility] [address] [id number] [address] [place] [address] 08 Jan, 2015 Type 2 diabetes mellitus wit h hyperglycemia E11.65 ; Pain in right foot M79.671 and Localized edema R60.0 [facility] [address] [id number] [address] [place] [address] Jan, [facility] [address] [id number] [address] [place] [address] Dec, Right foot pain M79.671 ; In somnia, unspecified type G47.00 and Diabetes E11.9 [facility] [address] [id number] [address] [place] [address] Dec, Pain in right foot M79.671 [facility] [address] [id number] [address] [place] [address] Nov, [facility] [address] [id number] [address] [place] [address] Sep, [facility] [address] [id number] [address] [place] [address] Sep, Diabetes mellitus, type II 2 50.00 [facility] [address] [id number] [address] [place] [address] 14 May, 2014 [facility] [address] [id number] [address] [place] [address] May, [facility] [address] [id number] [address] [place] [address] Apr, [facility] [address] [id number] [address] [place] [address] Apr, [facility] [address] [id number] [address] [place] [address] 16 Apr, 2014 [facility] [address] [id number] [address] [place] [address] Apr, [facility] [address] [id number] [address] [place] [address], [place] [address] 12 Apr, 2014 [facility] [address] [id number] [address] [place] [address], [place] [address] 12 Apr, 2014 [facility] [address] [id number] [address] [place] [address], [place] [address] 05 Apr, 2014 [facility] [address] [id number] [address] [place] [address], [place] [address] 05 Apr, 2014 [facility] [address] [id number] [address] [place] [address], [place] [address] 18 Jan, 2014 [facility] [address] [id number] [address] [place] [address], [place] [address] 18 Jan, 2014 [facility] [address] [id number] [address] [place] [address], [place] [address] 15 Jan, 2014 [facility] [address] [id number] [address] [place] [address], [place] [address] 15 Jan, 2014 [facility] [address] [id number] [address] [place] [address], [place] [address] Dec, [facility] [address] [id number] [address] [place] [address], [place] [address] Dec, [facility] [address] [id number] [address] [place] [address], [place] [address] Nov, [facility] [address] [id number] [address] [place] [address], [place] [address] Nov, [facility] [address] [id number] [address] [place] [address], [place] [address] Oct, [facility] [address] [id number] [address] [place] [address], [place] [address] Oct, [facility] [address] [id number] [address] [place] [address], [place] [address] 05 Oct, 2013 [facility] [address] [id number] [address] [place] [address], [place] [address] 05 Oct, 2013 [facility] [address] [id number] [facility] [place] [address] Sep, [facility] [address] [id number] [facility] [place] [address] Sep, [facility] [address] [id number] [facility] [place] [address] Sep, [facility] [address] [id number] [address] [place] [address], [place] [address] Sep, [facility] [address] [id number] [address] [place] [address], [place] [address] Sep, [facility] [address] [id number] [address] [place] [address], [place] [address] Sep, [facility] [address] [id number] [address] [place] [address], [place] [address] Sep, [facility] [address] [id number] [address] [place] [address], [place] [address] Sep, [facility] [address] [id number] [address] [place] [address], [place] [address] Sep, [facility] [address] [id number] [address] [place] [address], [place] [address] Sep, [facility] [address] [id number] [address] [place] [address], [place] [address] Sep, [facility] [address] [id number] [address] [place] [address], [place] [address] Sep, [facility] [address] [id number] [address] [place] [address], [place] [address] Aug, [facility] [address] [id number] [address] [place] [address], [place] [address] Aug, [facility] [address] [id number] [address] [place] [address], [place] [address] Aug, [facility] [address] [id number] [address] [place] [address], [place] [address] 14 Aug, 2013 [facility] [address] [id number] [address] [place] [address], [place] [address] June, [facility] [address] [id number] [address] [place] [address], [place] [address] 24 May, 2013 [facility] [address] [id number] [address] [place] [address], [place] [address] 24 May, 2013 [facility] [address] [id number] [address] [place] [address], [place] [address] May, [facility] [address] [id number] [address] [place] [address], [place] [address] 18 May, 2013 [facility] [address] [id number] [address] [place] [address], [place] [address] 17 May, 2013 [facility] [address] [id number] [address] [place] [address], [place] [address] 17 May, 2013 [facility] [address] [id number] [address] [place] [address], [place] [address] 16 May, 2013 [facility] [address] [id number] [address] [place] [address], [place] [address] 16 May, 2013 [facility] [address] [id number] [address] [place] [address], [place] [address] 14 May, 2013 [facility] [address] [id number] [address] [place] [address], [place] [address] 14 May, 2013 [facility] [address] [id number] [address] [place] [address], [place] [address] 14 May, 2013 [facility] [address] [id number] [address] [place] [address], [place] [address] 14 May, 2013 [facility] [address] [id number] [address] [place] [address], [place] [address] 11 Apr, 2013 [facility] [address] [id number] [address] [place] [address], [place] [address] Apr, [facility] [address] [id number] [address] [place] [address], [place] [address] Mar, [facility] [address] [id number] [address] [place] [address], [place] [address] Mar, [facility] [address] [id number] [address] [place] [address], [place] [address] Dec, [facility] [address] [id number] [address] [place] [address], [place] [address] Dec, [facility] [address] [id number] [address] [place] [address], [place] [address] Dec, [facility] [address] [id number] [address] [place] [address], [place] [address] Dec, [facility] [address] [id number] [address] [place] [address], [place] [address] Nov, [facility] [address] [id number] [address] [place] [address], [place] [address] Nov, [facility] [address] [id number] [address] [place] [address], [place] [address] Oct, [facility] [address] [id number] [address] [place] [address], [place] [address] Oct, [facility] [address] [address] [id number] [address] [place] [address], [place] [address] Aug, [facility] [address] [id number] [address] [place] [address], [place] [address] Aug, [facility] [address] [id number] [address] [place] [address], [place] [address] Aug, [facility] [address] [id number] [address] [place] [address], [place] [address] Jul, [facility] [address] [id number] [address] [place] [address], [place] [address] June, [facility] [address] [id number] [address] [place] [address], [place] [address] June, [facility] [address] [id number] [address] [place] [address], [place] [address] Apr, [facility] [address] [id number] [address] [place] [address], [place] [address] Mar, [facility] [address] [id number] [address] [place] [address], [place] [address] Mar, [facility] [address] [id number] [address] [place] [address], [place] [address] Mar, [facility] [address] [id number] [address] [place] [address], [place] [address] Mar, [facility] [address] [id number] [address] [place] [address], [place] [address] Mar, [facility] [address] [id number] [address] [place] [address], [place] [address] Feb, [facility] [address] [id number] [address] [place] [address], [place] [address] Feb, [facility] [address] [id number] [address] [place] [address], [place] [address] Feb, [facility] [address] [id number] [address] [place] [address], [place] [address] Feb, [facility] [address] [id number] [address] [place] [address], [place] [address] Jan, [facility] [address] [id number] [address] [place] [address], [place] [address] Jan, [facility] [address] [id number] [address] [place] [address], [place] [address] Dec, [facility] [address] [id number] [address] [place] [address], [place] [address] Dec, [facility] [address] [id number] [address] [place] [address], [place] [address] Dec, [facility] [address] [id number] [address] [place] [address], [place] [address] Dec, [facility] [address] [id number] [address] [place] [address], [place] [address] Oct, [facility] [address] [id number] [address] [place] [address], [place] [address] Aug, [facility] [address] [id number] [address] [place] [address], [place] [address] Jul, [facility] [address] [id number] [address] [place] [address], [place] [address] June, [facility] [address] [id number] [address] [place] [address], [place] [address] June, [facility] [address] [id number] [address] [place] [address], [place] [address] June, [facility] [address] [id number] [address] [place] [address], [place] [address] June, [facility] [address] [id number] [address] [place] [address], [place] [address] June, [facility] [address] [id number] [address] [place] [address], [place] [address] May, [facility] [address] [id number] [address] [place] [address], [place] [address] May, [facility] [address] [id number] [address] [place] [address], [place] [address] Apr, [facility] [address] [id number] [address] [place] [address], [place] [address] Apr, [facility] [address] [id number] [address] [place] [address], [place] [address] Mar, [facility] [address] [id number] [address] [place] [address], [place] [address] Feb, [facility] [address] [id number] [address] [place] [address], [place] [address] Nov, [facility] [address] [id number] [address] [place] [address], [place] [address] 13 Nov, 2010 [facility] [address] [id number] [address] [place] [address], [place] [address] 13 Nov, 2010 [facility] [address] [id number] [address] [place] [address], [place] [address] 17 Apr, 2010 [facility] [address] [id number] [address] [place] [address], [place] [address] 07 Jan, 2010 [facility] [address] [id number] [address] [place] [address], [place] [address] 24 Dec, 2009 [facility] [address] [id number] [address] [place] [address], [place] [address] Dec, [facility] [address] [id number] [address] [place] [address], [place] [address] 29 Nov, 2009 [facility] [address] [id number] [address] [place] [address], [place] [address] June, [facility] [address] [id number] [address] [place] [address], [place] [address] 29 Jan, 2009 [facility] [address] [id number] [address] [place] [address] 28 Jan, 2009 [facility] [address] [id number] [address] [place] [address], [place] [address] 23 Jan, 2009 [facility] [address] [id number] [address] [place] [address] 22 Jan, 2009 [facility] [address] [id number] [address] [place] [address], [place] [address] 16 Jan, 2009 [facility] [address] [id number] [address] [place] [address], [place] [address] 15 Jan, 2009 [facility] [address] [id number] [address] [place] [address] 15 Jan, 2009 [facility] [address] [id number] [address] [place] [address] Jan, [facility] [address] [id number] [address] [place] [address] Jan, [facility] [address] [id number] [address] [place] [address] Jan, [facility] [address] [id number] [address] [place] [address] Jan, [facility] [address] [id number] [address] [place] [address] Jan, [facility] [address] [id number] [address] [place] [address] Dec, [facility] [address] [id number] [address] [place] [address] Dec, [facility] [address] [id number] [address] [place] [address] Dec, [facility] [address] [id number] [address] [place] [address] Dec, [facility] [address] [id number] [address] [place] [address] Nov, [facility] [address] [id number] [address] [place] [address] Oct, IMMUNIZATIONS No Known Immunizations SOCIAL HISTORY Never Assessed REASON FOR VISIT [facility] [place] PLAN OF CARE VITAL SIGNS MEDICATIONS No [...] knee pseudogout s tatus post joint fluid analysis-[facility] 09/20/16 Hospitalization History kidneys--[place] 11/2017 Hospitalization History Diverticulitis--[place] 06/2018
--- OUTSIDE RECORDS SUMMARY | 2019-07-04 10:19 | XMS REPORT ---
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 5 Active 829957078 Problem End stage kidney disease N18.6 Activ e 86872217 Problem Gout of left knee due to renal impairment, unspe cified chronicity M10.362 Active 093410566 Problem Type 2 diabetes mellitus with hyperglycemia E11.65 Active 107009860178623 Problem Mood disorder F39 Active 762240 05 Problem Delayed gastric emptying K30 Activ e 748305811 Problem Kidney stone N20.0 Active 6190931 7 Problem Proteinuria R80.9 Active 50830795 Problem Sinusitis J32.9 Active 59616354 ALLERGIES No Information ENCOUNTERS Encounter Location Date Diagnosis [facility] [address] [facility] [id number] [address] [place] [address] Aug, [facility] [address] [facility] [id number] [address] [place] [address] Jul, Type 2 diabetes mellitus wit h hyperglycemia E11.65 [facility] [address] [facility] [id number] [address] [place] [address] Jul, Type 2 diabetes mellitus wit h hyperglycemia E11.65 [facility] [address] [facility] [id number] [address] [place] [address] Jul, Type 2 diabetes mellitus wit h hyperglycemia E11.65 [facility] [address] [facility] [id number] [address] [place] [address] June, Type 2 diabetes mellitus wit h hyperglycemia E11.65 ; End stage kidney disease N18.6 and Callus L84 [facility] [address] [facility] [id number] [address] [place] [address] May, [facility] [address] [facility] [id number] [address] [place] [address] May, Essential hypertension I10 [facility] [address] [facility] [id number] [address] [place] [address] Apr, [facility] [address] [facility] [id number] [address] [place] [address] Apr, Type 2 diabetes mellitus wit h hyperglycemia E11.65 and Essential hypertension I10 [facility] [address] [facility] [id number] [address] [place] [address] Apr, [facility] [address] [facility] [id number] [address] [place] [address] Apr, Type 2 diabetes mellitus wit h hyperglycemia E11.65 [facility] [address] [facility] [id number] [address] [place] [address] Apr, [facility] [address] [facility] [id number] [address] [place] [address] Mar, Type 2 diabetes mellitus wit h hyperglycemia E11.65 [facility] [address] [facility] [id number] [address] [place] [address] Mar, Type 2 diabetes mellitus wit h diabetic nephropathy E11.21 ; End stage kidney disease N18.6 ; Callus L84 and Onychomycosis B35.1 [facility] [address] [address] Feb, [facility] [address] [address] Feb, Sinusitis J32.9 ; Nausea R11 .0 and Otalgia H92.09 [place] [address] [address] Jan, [facility] [address] [address] Jan, [place] [address] [address] Jan, Essential hypertension I10 ; Gout, unspecified M10.9 ; Coronary atherosclerosis of unspecified type of vessel, [place] or graft I25.10 ; Mixed hyperlipidemia E78.2 and Type 2 diabetes mellitus with hyperglycemia E11.65 [place] [address] [address] Dec, Chronic kidney disease, stag e 3 N18.3 ; Proteinuria R80.9 ; Diabetes mellitus E11.9 ; Acute kidney failure, unspecified N17.9 and Mixed hyperlipidemia E78.2 [place] [address] [address] 16 Dec, 2017 Chronic kidney disease, stag e 3 N18.3 ; Essential hypertension I10 ; Proteinuria R80.9 ; Diabetes mellitus E11.9 ; Kidney stone N20.0 ; Acute kidney failure, unspecified N17.9 ; Edema R60.9 and Mixed hyperlipidemia E78.2 [place] [address] [address] Dec, Type 2 diabetes mellitus wit h hyperglycemia E11.65 [place] [address] [address] 14 Dec, 2017 Chronic kidney disease, stag e 3 N18.3 [place] [address] [address] Dec, Type 2 diabetes mellitus wit h hyperglycemia E11.65 [place] [address] [place] [id number] [place] [address] Dec, [place] [address] [place] [id number] [address] [place] [address] Nov, Type 2 diabetes mellitus wit h hyperglycemia E11.65 [place] [address] [address] Nov, [place] [address] [place] [id number] [place] [address] Nov, Chronic kidney disease, stag e V (very severe) N18.5 ; Type 2 diabetes mellitus with hyperglycemia E11.65 ; Encounter for immunization Z23 and Delayed gastric emptying K30 [address] [address] Nov, [place] [address] [address] Oct, Essential hypertension I10 ; Coronary atherosclerosis of unspecified type of vessel, [place] or graft I25.10 ; Type 2 diabetes mellitus with hyperglycemia E11.65 and Gout, unspecified M10.9 [place] [address] [place] [id number] [place] [address] Oct, Chronic kidney disease, stag e V (very severe) N18.5 [place] [address] [place] [id number] [address] [place] [address] Oct, Mixed hyperlipidemia E78.2 [place] [address] [place] [id number] [address] [place] [address] Sep, Type 2 diabetes mellitus wit h hyperglycemia E11.65 [place] [address] [place] [id number] [address] [place] [address] Sep, Mixed hyperlipidemia E78.2 [place] [address] [place] [id number] [place] [address] Sep, Chronic kidney disease, stag e V (very severe) N18.5 [place] [address] [address] Sep, Type 2 diabetes mellitus wit h hyperglycemia E11.65 and Essential hypertension I10 [place] [address] [place] [id number] [address] [place] [address] Sep, Type 2 diabetes mellitus wit h hyperglycemia E11.65 [place] [address] [address] Aug, Gout, unspecified M10.9 ; Ga stroesophageal reflux disease, esophagitis presence not specified K21.9 ; Mood disorder F39 and Coronary atherosclerosis of unspecified type of vessel, [place] or graft I25.10 [place] [address] [address] Aug, [place] [address] [address] June, Type 2 diabetes mellitus wit h hyperglycemia E11.65 [place] [address] [address] May, Mood disorder F39 ; Gastroes ophageal reflux disease, esophagitis presence not specified K21.9 ; Gout, unspecified M10.9 ; Coronary atherosclerosis of unspecified type of vessel, [place] or graft I25.10 and Type 2 diabetes mellitus with hyperglycemia E11.65 [place] [id number] [place] [address] May, Type 2 diabetes mellitus wit h hyperglycemia E11.65 [place] [address] [place] [id number] [address] [place] [address] Apr, Diabetes E11.9 and Mood diso rder F39 [place] [address] [place] [id number] [address] [place] [address] 15 Mar, 2017 Primary osteoarthritis of le ft knee M17.12 and Tear of lateral meniscus of left knee, unspecified tear type, unspecified whether old or current tear, initial encounter S83.282A [facility] [address] [facility] [id number] [address] [place] [address] Feb, Mood disorder F39 [facility] [address] [id number] [address] [place] [address] Feb, Pseudogout M11.20 [facility] [address] [facility] [id number] [address] [place] [address] Jan, Other care home (current) dr anna therapy Z79.899 [facility] [address] [id number] [address] [place] [address] Jan, [facility] [address] [facility] [id number] [address] [place] [address] Jan, Pseudogout M11.20 ; Type 2 d iabetes mellitus with hyperglycemia E11.65 and Other care home (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 [facility] [address] [facility] [id number] [address] [place] [address] Jan, Gout of left knee due to eloisa al impairment, unspecified chronicity M10.362 ; Type 2 diabetes mellitus with diabetic nephropathy E11.21 ; Synovial cyst of popliteal space [Mejia], left knee M71.22 and Low back pain M54.5 [facility] [address] [facility] [id number] [address] [place] [address] Dec, Pseudogout M11.20 [facility] [address] [facility] [id number] [address] [place] [address] 14 Dec, 2016 [place] [address] [facility] [id number] [address] [place] [address] 13 Dec, 2016 Type 2 diabetes mellitus wit h diabetic nephropathy E11.21 and Right anterior knee pain M25.561 [facility] [address] [facility] [id number] [address] [place] [address] Nov, Pseudogout M11.20 [facility] [address] [facility] [id number] [address] [place] [address] Nov, Pseudogout M11.20 ; Chronic kidney disease, stage 3 N18.3 ; Mixed hyperlipidemia E78.2 ; Gout, unspecified M10.9 ; Coronary atherosclerosis of unspecified type of vessel, [place] or graft I25.10 ; Mood disorder F39 and Gastroesophageal reflux disease, esophagitis presence not specified K21.9 [facility] [address] [place] [id number] [address] [place] [address] Nov, [place] [address] [place] [id number] [place] [address] Oct, Pseudogout M11.20 [place] [address] [place] [id number] [place] [address] Sep, Pseudogout M11.20 [place] [address] [place] [id number] [place] [address] Sep, Pseudogout M11.20 [place] [address] [place] [id number] [place] [address] Sep, [facility] [address] [place] [id number] [place] [id number] Aug, [place] [address] [place] [id number] [place] [address] Aug, Diabetes E11.9 ; Chronic kid tahir disease, stage 3 N18.3 ; Hyperuricemia E79.0 ; Mixed hyperlipidemia E78.2 ; Gastroesophageal reflux disease, esophagitis presence not specified K21.9 ; Gout, unspecified M10.9 ; Coronary atherosclerosis of unspecified type of vessel, [place] or graft I25.10 and Mood disorder F39 [facility] [address] [place] [id number] [address] [place] [address] June, [facility] [address] [place] [id number] [place] [address] June, [facility] [address] [place] [id number] [address] [place] [address] June, [place] [address] [id number] [address] [place] [address] May, Chronic renal failure, stage 3 (moderate) N18.3 [facility] [address] [id number] [address] [place] [address] May, Diabetes E11.9 [facility] [address] [id number] [address] [place] [address] May, [facility] [address] [id number] [address] [place] [address] Apr, [facility] [address] [id number] [address] [place] [address] Apr, [facility] [address] [facility] [id number] [address] [place] [address] Apr, Cellulitis of right lower ex tremity L03.115 and Diabetes E11.9 [facility] [address] [id number] [address] [place] [address] Apr, Type 2 diabetes mellitus wit h hyperglycemia E11.65 [facility] [address] [id number] [address] [place] [address] Mar, Cellulitis of right lower ex tremity L03.115 and Low back pain M54.5 [facility] [address] [facility] [id number] [address] [place] [address] Mar, [facility] [address] [id number] [address] [place] [address] Mar, Cellulitis of right lower ex tremity L03.115 [facility] [address] [id number] [address] [place] [address] Mar, Cellulitis of right lower ex tremity L03.115 [facility] [address] [facility] [id number] [address] [place] [address] Feb, Cellulitis of right lower ex tremity L03.115 [facility] [address] [id number] [address] [place] [address] Feb, Cellulitis of right lower ex tremity L03.115 [place] [address] [id number] [address] [place] [address] Feb, [place] [address] [id number] [address] [place] [address] Feb, Leukocytosis, unspecified ty pe D72.829 ; Chronic renal failure, stage 3 (moderate) N18.3 and Type 2 diabetes mellitus with hyperglycemia E11.65 [place] [address] [id number] [address] [place] [address] Feb, Leukocytosis, unspecified ty pe D72.829 [place] [address] [facility] [id number] [address] [place] [address] Feb, [place] [address] [facility] [id number] [address] [place] [address] Feb, Cellulitis of right lower ex tremity L03.115 ; Thrush B37.0 ; Gout of left knee due to renal impairment, unspecified chronicity M10.362 and Chronic renal failure, stage 3 (moderate) N18.3 [place] [address] [id number] [address] [place] [address] Feb, [place] [address] [facility] [id number] [address] [place] [address] Feb, Right foot infection L08.9 ; Type 2 diabetes mellitus with hyperglycemia E11.65 ; Arthralgia of left knee M25.562 ; Chronic kidney disease, stage 3 N18.3 and Diabetes E11.9 [place] [address] [id number] [address] [place] [address] Feb, [place] [address] [facility] [id number] [address] [place] [address] Feb, Diabetes E11.9 ; Arthralgia of left knee M25.562 and Thrush B37.0 [place] [address] [facility] [id number] [address] [place] [address] Jan, [facility] [address] [place] [id number] [address] [place] [address] Jan, Type 2 diabetes mellitus wit h hyperglycemia E11.65 ; Chronic renal failure, stage 3 (moderate) N18.3 and Leukocytosis, unspecified type D72.829 [place] [id number] [place] [address] Jan, Type 2 diabetes mellitus wit h hyperglycemia E11.65 [place] [address] [facility] [id number] [address] [place] [address] Dec, Gout of left knee due to eloisa al impairment, unspecified chronicity M10.362 [place] [address] [address] Dec, Gout of left knee due to eloisa al impairment, unspecified chronicity M10.362 and Diabetes E11.9 [place] [address] [address] Dec, [place] [address] [address] Dec, [facility] [address] [address] Dec, [place] [address] [place] [id number] [address] [place] [address] Dec, Chronic kidney disease, stag e 3 N18.3 ; Type 2 diabetes mellitus with diabetic nephropathy E11.21 ; Type 2 diabetes mellitus with hyperglycemia E11.65 and terminal gauger 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 [facility] [address] [address] 05 Dec, 2015 Leukocytosis, unspecified ty pe D72.829 ; Chronic renal failure, stage 3 (moderate) N18.3 and Nausea R11.0 [place] [address] [place] [id number] [address] [place] [address] Nov, [facility] [address] [id number] [address] [place] [address] Jul, [facility] [address] [facility] [id number] [address] [place] [address] Jul, Diabetes E11.9 ; Low back pa in M54.5 and Other chronic pain G89.29 [facility] [address] [facility] [id number] [address] [place] [address] June, [facility] [address] [facility] [id number] [address] [place] [address] June, [facility] [address] [facility] [id number] [address] [place] [address] Jan, Viral illness B34.9 [facility] [address] [facility] [id number] [address] [place] [address] Jan, Type 2 diabetes mellitus wit h hyperglycemia E11.65 ; Pain in right foot M79.671 and Localized edema R60.0 [facility] [address] [id number] [address] [place] [address] Jan, [facility] [address] [facility] [id number] [address] [place] [address] Dec, Right foot pain M79.671 ; In somnia, unspecified type G47.00 and Diabetes E11.9 [facility] [address] [facility] [id number] [address] [place] [address] Dec, Pain in right foot M79.671 [facility] [address] [id number] [address] [place] [address] Nov, [facility] [address] [facility] [id number] [address] [place] [address] Sep, [facility] [address] [facility] [id number] [address] [place] [address] Sep, Diabetes mellitus, type II 2 50.00 [facility] [address] [facility] [id number] [address] [place] [address] 14 May, 2014 [facility] [address] [id number] [address] [place] [address], [place] [address] 13 May, 2014 [facility] [address] [id number] [address] [place] [address], [place] [address] 19 Apr, 2014 [facility] [address] [id number] [address] [place] [address], [place] [address] 19 Apr, 2014 [facility] [address] [id number] [address] [place] [address], [place] [address] 16 Apr, 2014 [facility] [address] [id number] [address] [place] [address], [place] [address] 16 Apr, 2014 [facility] [address] [id number] [address] [place] [address], [place] [address] 12 Apr, 2014 [facility] [address] [id number] [address] [place] [address], [place] [address] 12 Apr, 2014 [facility] [address] [id number] [address] [place] [address], [place] [address] 05 Apr, 2014 [facility] [address] [id number] [address] [place] [address], [place] [address] 05 Apr, 2014 [facility] [address] [id number] [address] [place] [address], [place] [address] 18 Jan, 2014 [facility] [address] [id number] [address] [place] [address], [place] [address] 18 Jan, 2014 [facility] [address] [id number] [address] [place] [address], [place] [address] 15 Jan, 2014 [facility] [address] [id number] [address] [place] [address], [place] [address] 15 Jan, 2014 [facility] [address] [id number] [address] [place] [address], [place] [address] 10 Dec, 2013 [facility] [address] [id number] [address] [place] [address], [place] [address] 10 Dec, 2013 [facility] [address] [id number] [facility] [place] [place] [address] Nov, [facility] [address] [id number] [address] [place] [address], [place] [address] Nov, [facility] [address] [id number] [address] [place] [address], [place] [address] Oct, [facility] [address] [id number] [address] [place] [address], [place] [address] Oct, [facility] [address] [id number] [address] [place] [address], [place] [address] Oct, [facility] [address] [id number] [address] [place] [address], [place] [address] Oct, [facility] [address] [id number] [address] [place] [address], [place] [address] Sep, [facility] [address] [id number] [address] [place] [address], [place] [address] Sep, [facility] [address] [id number] [address] [place] [address], [place] [address] Sep, [facility] [address] [id number] [address] [place] [address], [place] [address] Sep, [facility] [address] [id number] [address] [place] [address], [place] [address] Sep, [facility] [address] [id number] [address] [place] [address], [place] [address] Sep, [facility] [address] [id number] [address] [place] [address], [place] [address] Sep, [facility] [address] [id number] [address] [place] [address], [place] [address] Sep, [facility] [address] [id number] [address] [place] [address], [place] [address] Sep, [facility] [address] [id number] [address] [place] [address], [place] [address] Sep, [facility] [address] [id number] [facility] [place] [address] Sep, [facility] [address] [id number] [address] [place] [address], [place] [address] Sep, [facility] [address] [id number] [address] [place] [address], [place] [address] Aug, [facility] [address] [id number] [address] [place] [address], [place] [address] Aug, [facility] [address] [id number] [address] [place] [address], [place] [address] Aug, [facility] [address] [id number] [address] [place] [address], [place] [address] Aug, [facility] [address] [id number] [address] [place] [address], [place] [address] June, [facility] [address] [id number] [address] [place] [address], [place] [address] May, [facility] [address] [id number] [address] [place] [address], [place] [address] May, [facility] [address] [id number] [address] [place] [address], [place] [address] May, [facility] [address] [id number] [address] [place] [address], [place] [address] May, [facility] [address] [id number] [address] [place] [address], [place] [address] May, [facility] [address] [id number] [address] [place] [address], [place] [address] May, [facility] [address] [id number] [address] [place] [address], [place] [address] 16 May, 2013 [facility] [address] [id number] [address] [place] [address], [place] [address] May, [facility] [address] [id number] [address] [place] [address], [place] [address] 14 May, 2013 [facility] [address] [id number] [address] [place] [address], [place] [address] 14 May, 2013 [facility] [address] [id number] [address] [place] [address], [place] [address] 14 May, 2013 [facility] [address] [id number] [address] [place] [address], [place] [address] May, [facility] [address] [id number] [address] [place] [address], [place] [address] Apr, [facility] [address] [id number] [address] [place] [address], [place] [address] Apr, [facility] [address] [id number] [address] [place] [address], [place] [address] Mar, [facility] [address] [id number] [address] [place] [address], [place] [address] Mar, [facility] [address] [id number] [address] [place] [address], [place] [address] Dec, [facility] [address] [id number] [address] [place] [address], [place] [address] Dec, [facility] [address] [id number] [address] [place] [address], [place] [address] Dec, [facility] [address] [id number] [address] [place] [address], [place] [address] Dec, [facility] [address] [id number] [address] [place] [address], [place] [address] Nov, [facility] [address] [id number] [address] [place] [address], [place] [address] Nov, [facility] [address] [id number] [address] [place] [address], [place] [address] 30 Oct, 2012 [facility] [address] [id number] [address] [place] [address], [place] [address] 27 Oct, 2012 [facility] [address] [id number] [address] [place] [address], [place] [address] Aug, [facility] [address] [id number] [address] [place] [address], [place] [address] Aug, [facility] [address] [id number] [address] [place] [address], [place] [address] Aug, [facility] [address] [id number] [address] [place] [address], [place] [address] Jul, [facility] [address] [id number] [address] [place] [address], [place] [address] June, [facility] [address] [id number] [address] [place] [address], [place] [address] June, [facility] [address] [id number] [address] [place] [address], [place] [address] Apr, [facility] [address] [id number] [address] [place] [address], [place] [address] Mar, [facility] [address] [id number] [address] [place] [address], [place] [address] Mar, [facility] [address] [id number] [address] [place] [address], [place] [address] Mar, [facility] [address] [id number] [address] [place] [address], [place] [address] Mar, [facility] [address] [id number] [address] [place] [address], [place] [address] Mar, [facility] [address] [id number] [address] [place] [address], [place] [address] Feb, [facility] [address] [id number] [address] [place] [address], [place] [address] Feb, [facility] [address] [id number] [address] [place] [address], [place] [address] Feb, [facility] [address] [id number] [address] [place] [address] Feb, [facility] [address] [id number] [address] [place] [address], [place] [address] Jan, [facility] [address] [id number] [address] [place] [address], [place] [address] Jan, [facility] [address] [id number] [address] [place] [address], [place] [address] Dec, [facility] [address] [id number] [address] [place] [address], [place] [address] Dec, [facility] [address] [id number] [address] [place] [address], [place] [address] Dec, [facility] [address] [id number] [address] [place] [address], [place] [address] Dec, [facility] [address] [id number] [address] [place] [address], [place] [address] Oct, [facility] [address] [id number] [address] [place] [address], [place] [address] Aug, [facility] [address] [id number] [address] [place] [address], [place] [address] Jul, [facility] [address] [id number] [address] [place] [address], [place] [address] June, [facility] [address] [id number] [address] [place] [address], [place] [address] June, [facility] [address] [id number] [address] [place] [address], [place] [address] June, [facility] [address] [id number] [address] [place] [address], [place] [address] June, [facility] [address] [id number] [address] [place] [address], [place] [address] June, [facility] [address] [id number] [address] [place] [address], [place] [address] May, [facility] [address] [id number] [address] [place] [address], [place] [address] 23 May, 2011 [facility] [address] [id number] [address] [place] [address], [place] [address] 15 Apr, 2011 [facility] [address] [id number] [address] [place] [address], [place] [address] 13 Apr, 2011 [facility] [address] [id number] [address] [place] [address], [place] [address] 27 Mar, 2011 [facility] [address] [id number] [address] [place] [address], [place] [address] Feb, [facility] [address] [id number] [address] [place] [address], [place] [address] 26 Nov, 2010 [facility] [address] [id number] [address] [place] [address], [place] [address] 13 Nov, 2010 [facility] [address] [id number] [address] [place] [address], [place] [address] 13 Nov, 2010 [facility] [address] [id number] [address] [place] [address], [place] [address] 17 Apr, 2010 [facility] [address] [id number] [address] [place] [address], [place] [address] Jan, [facility] [address] [id number] [address] [place] [address], [place] [address] Dec, [facility] [address] [id number] [address] [place] [address], [place] [address] Dec, [facility] [address] [id number] [address] [place] [address], [place] [address] 29 Nov, 2009 [facility] [address] [id number] [address] [place] [address], [place] [address] June, [facility] [address] [id number] [address] [place] [address], [place] [address] 29 Jan, 2009 [facility] [address] [id number] [address] [place] [address], [place] [address] 28 Jan, 2009 [facility] [address] [id number] [address] [place] [address], [place] [address] 23 Jan, 2009 [facility] [address] [id number] [address] [place] [address], [place] [address] 22 Jan, 2009 [facility] [address] [id number] [address] [place] [id number] 16 Jan, 2009 [facility] [address] [id number] [address] [place] [address] 15 Jan, 2009 [facility] [address] [id number] [address] [place] [address], [place] [address] 15 Jan, 2009 [facility] [address] [id number] [address] [place] [id number] 11 Jan, 2009 [facility] [address] [id number] [address] [place] [id number] 11 Jan, 2009 [facility] [address] [id number] [address] [place] [id number] 10 Jan, 2009 [facility] [address] [id number] [address] [place] [id number] 04 Jan, 2009 [facility] [address] [id number] [address] [place] [id number] 02 Jan, 2009 [facility] [address] [id number] [address] [place] [id number] 25 Dec, 2008 [facility] [address] [id number] [address] [place] [id number] 19 Dec, 2008 [facility] [address] [id number] [address] [place] [id number] 17 Dec, 2008 [facility] [address] [id number] [address] [place] [id number] 17 Dec, 2008 [facility] [address] [id number] [address] [place] [id number] 20 Nov, 2008 [facility] [address] [id number] [facility] [place] [place] [address] 10 Oct, 2008 IMMUNIZATIONS No Known Immunizations [...] knee pseudogout s tatus post joint fluid analysis-[facility] 09/20/16 Hospitalization History kidneys--[facility] 11/2017 Hospitalization History Diverticulitis--[facility] 06/2018
--- OUTSIDE RECORDS SUMMARY | 2019-07-04 10:19 | XMS REPORT ---
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 5 Active 436918402 Problem End stage kidney disease N18.6 Activ e 43289793 Problem Gout of left knee due to renal impairment, unspe cified chronicity M10.362 Active 945277478 Problem Type 2 diabetes mellitus with hyperglycemia E11.65 Active 238168888128484 Problem Mood disorder F39 Active 087194 05 Problem Delayed gastric emptying K30 Activ e 402903419 Problem Kidney stone N20.0 Active 7931487 7 Problem Proteinuria R80.9 Active 04194047 Problem Sinusitis J32.9 Active 11296067 ALLERGIES No Information ENCOUNTERS Encounter Location Date Diagnosis [facility] [address] [facility] [id number] [address] [place] [address] May, [facility] [address] [facility] [id number] [address] [place] [address] May, Essential hypertension I10 [facility] [address] [facility] [id number] [address] [place] [address] Apr, [facility] [address] [facility] [id number] [address] Apr, Type 2 diabetes mellitus wit h hyperglycemia E11.65 and Essential hypertension I10 [place] [address] [address] Apr, [facility] [address] [address] Apr, Type 2 diabetes mellitus wit h hyperglycemia E11.65 [facility] [address] [address] Apr, [place] [address] [address] Mar, Type 2 diabetes mellitus wit h hyperglycemia E11.65 [place] [address] [address] Mar, Type 2 diabetes mellitus wit h diabetic nephropathy E11.21 ; End stage kidney disease N18.6 ; Callus L84 and Onychomycosis B35.1 [place] [address] [address] Feb, [facility] [address] [address] Feb, Sinusitis J32.9 ; Nausea R11 .0 and Otalgia H92.09 [place] [address] [address] Jan, [facility] [address] [address] Jan, [place] [address] [address] Jan, Essential hypertension I10 ; Gout, unspecified M10.9 ; Coronary atherosclerosis of unspecified type of vessel, duckwater or graft I25.10 ; Mixed hyperlipidemia E78.2 and Type 2 diabetes mellitus with hyperglycemia E11.65 [place] [address] [address] [place] [address] [place] [address] Dec, Chronic kidney disease, stag e 3 N18.3 ; Proteinuria R80.9 ; Diabetes mellitus E11.9 ; Acute kidney failure, unspecified N17.9 and Mixed hyperlipidemia E78.2 [facility] [address] [place] [id number] [address] [place] [address] 16 Dec, 2017 Chronic kidney disease, stag e 3 N18.3 ; Essential hypertension I10 ; Proteinuria R80.9 ; Diabetes mellitus E11.9 ; Kidney stone N20.0 ; Acute kidney failure, unspecified N17.9 ; Edema R60.9 and Mixed hyperlipidemia E78.2 [place] [address] [address] Dec, Type 2 diabetes mellitus wit h hyperglycemia E11.65 [place] [address] [address] Dec, Chronic kidney disease, stag e 3 N18.3 [place] [address] [address] 06 Dec, 2017 Type 2 diabetes mellitus wit h hyperglycemia E11.65 [place] [address] [address] Dec, [place] [address] [address] Nov, Type 2 diabetes mellitus wit h hyperglycemia E11.65 [place] [address] [place] [id number] [address] [place] [address] Nov, [place] [address] [address] 17 Nov, 2017 Chronic kidney disease, stag e V (very severe) N18.5 ; Type 2 diabetes mellitus with hyperglycemia E11.65 ; Encounter for immunization Z23 and Delayed gastric emptying K30 [facility] [address] [place] [id number] [address] [place] [address] 10 Nov, 2017 [place] [address] [place] [id number] [address] [place] [address] Oct, Essential hypertension I10 ; Coronary atherosclerosis of unspecified type of vessel, duckwater or graft I25.10 ; Type 2 diabetes mellitus with hyperglycemia E11.65 and Gout, unspecified M10.9 [place] [address] [facility] [id number] [address] [place] [address] Oct, Chronic kidney disease, stag e V (very severe) N18.5 [place] [address] [facility] [id number] [address] [place] [address] Oct, Mixed hyperlipidemia E78.2 [place] [address] [place] [id number] [place] [address] Sep, Type 2 diabetes mellitus wit h hyperglycemia E11.65 [place] [address] [place] [id number] [address] [place] [address] Sep, Mixed hyperlipidemia E78.2 [place] [address] [facility] [id number] [address] [place] [address] Sep, Chronic kidney disease, stag e V (very severe) N18.5 [place] [address] [place] [id number] [address] [place] [address] Sep, Type 2 diabetes mellitus wit h hyperglycemia E11.65 and Essential hypertension I10 [place] [address] [place] [id number] [address] [place] [address] Sep, Type 2 diabetes mellitus wit h hyperglycemia E11.65 [place] [address] [facility] [id number] [address] [place] [address] Aug, Gout, unspecified M10.9 ; Ga stroesophageal reflux disease, esophagitis presence not specified K21.9 ; Mood disorder F39 and Coronary atherosclerosis of unspecified type of vessel, duckwater or graft I25.10 [place] [address] [facility] [id number] [address] [place] [address] Aug, [place] [address] [place] [id number] [address] [place] [address] June, Type 2 diabetes mellitus wit h hyperglycemia E11.65 [place] [address] [facility] [id number] [address] [place] [address] May, Mood disorder F39 ; Gastroes ophageal reflux disease, esophagitis presence not specified K21.9 ; Gout, unspecified M10.9 ; Coronary atherosclerosis of unspecified type of vessel, duckwater or graft I25.10 and Type 2 diabetes mellitus with hyperglycemia E11.65 [place] [address] [facility] [id number] [address] [place] [address] May, Type 2 diabetes mellitus wit h hyperglycemia E11.65 [place] [address] [place] [id number] [address] [place] [address] Apr, Diabetes E11.9 and Mood diso rder F39 [place] [address] [place] [id number] [address] [place] [address] 15 Mar, 2017 Primary osteoarthritis of le ft knee M17.12 and Tear of lateral meniscus of left knee, unspecified tear type, unspecified whether old or current tear, initial encounter S83.282A [place] [address] [facility] [id number] [address] [place] [address] Feb, Mood disorder F39 [place] [address] [place] [id number] [address] [place] [address] Feb, Pseudogout M11.20 [facility] [address] [facility] [id number] [address] [place] [address] Jan, 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.899 [facility] [address] [facility] [id number] [address] [place] [address] Jan, [facility] [address] [facility] [id number] [address] [place] [address] Jan, Pseudogout M11.20 ; Type 2 d iabetes mellitus with hyperglycemia E11.65 and Other long chain quiller tender (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 [facility] [address] [place] [id number] [address] [place] [address] 18 Jan, 2017 Gout of left knee due to eloisa al impairment, unspecified chronicity M10.362 ; Type 2 diabetes mellitus with diabetic nephropathy E11.21 ; Synovial cyst of popliteal space [Mejia], left knee M71.22 and Low back pain M54.5 [facility] [address] [place] [id number] [address] [place] [address] Dec, Pseudogout M11.20 [place] [address] [place] [id number] [place] [address] Dec, [place] [address] [address] 13 Dec, 2016 Type 2 diabetes mellitus wit h diabetic nephropathy E11.21 and Right anterior knee pain M25.561 [place] [address] [address] Nov, Pseudogout M11.20 [place] [address] [place] [id number] [place] [address] Nov, Pseudogout M11.20 ; Chronic kidney disease, stage 3 N18.3 ; Mixed hyperlipidemia E78.2 ; Gout, unspecified M10.9 ; Coronary atherosclerosis of unspecified type of vessel, duckwater or graft I25.10 ; Mood disorder F39 and Gastroesophageal reflux disease, esophagitis presence not specified K21.9 [place] [address] [place] [id number] [address] [place] [address] Nov, [place] [address] [place] [id number] [address] [place] [address] Oct, Pseudogout M11.20 [place] [address] [place] [id number] [place] [address] Sep, Pseudogout M11.20 [place] [address] [place] [id number] [address] [place] [address] Sep, Pseudogout M11.20 [place] [address] [id number] [place] [address], [place] [address] Sep, [facility] [address] [place] [id number] [place] [id number] Aug, [facility] [address] [address] Aug, Diabetes E11.9 ; Chronic kid tahir disease, stage 3 N18.3 ; Hyperuricemia E79.0 ; Mixed hyperlipidemia E78.2 ; Gastroesophageal reflux disease, esophagitis presence not specified K21.9 ; Gout, unspecified M10.9 ; Coronary atherosclerosis of unspecified type of vessel, duckwater or graft I25.10 and Mood disorder F39 [facility] [address] [address] June, [facility] [address] [address] June, [facility] [address] [address] June, [facility] [address] [address] May, Chronic renal failure, stage 3 (moderate) N18.3 [facility] [address] [address] May, Diabetes E11.9 [facility] [address] [address] May, [facility] [address] [address] Apr, [facility] [address] [address] Apr, [facility] [address] [address] Apr, Cellulitis of right lower ex tremity L03.115 and Diabetes E11.9 [facility] [address] [address] Apr, Type 2 diabetes mellitus wit h hyperglycemia E11.65 [place] [address] [id number] [address] [place] [address] Mar, Cellulitis of right lower ex tremity L03.115 and Low back pain M54.5 [facility] [address] [id number] [address] [place] [address] Mar, [place] [address] [id number] [address] [place] [address] Mar, Cellulitis of right lower ex tremity L03.115 [place] [address] [id number] [address] [place] [address] Mar, Cellulitis of right lower ex tremity L03.115 [place] [address] [id number] [address] [place] [address] Feb, Cellulitis of right lower ex tremity L03.115 [place] [address] [id number] [address] [place] [address] Feb, Cellulitis of right lower ex tremity L03.115 [place] [address] [id number] [address] [place] [address] Feb, [place] [address] [facility] [id number] [address] [place] [address] Feb, Leukocytosis, unspecified ty pe D72.829 ; Chronic renal failure, stage 3 (moderate) N18.3 and Type 2 diabetes mellitus with hyperglycemia E11.65 [place] [address] [id number] [address] [place] [address] Feb, Leukocytosis, unspecified ty pe D72.829 [place] [address] [facility] [id number] [address] [place] [address] Feb, [place] [address] [facility] [id number] [address] [place] [address] Feb, Cellulitis of right lower ex tremity L03.115 ; Thrush B37.0 ; Gout of left knee due to renal impairment, unspecified chronicity M10.362 and Chronic renal failure, stage 3 (moderate) N18.3 [place] [address] [id number] [address] [place] [address] Feb, [place] [address] [id number] [address] [place] [address] Feb, Right foot infection L08.9 ; Type 2 diabetes mellitus with hyperglycemia E11.65 ; Arthralgia of left knee M25.562 ; Chronic kidney disease, stage 3 N18.3 and Diabetes E11.9 [place] [address] [id number] [address] [place] [address] Feb, [place] [address] [id number] [address] [place] [address] Feb, Diabetes E11.9 ; Arthralgia of left knee M25.562 and Thrush B37.0 [place] [address] [id number] [address] [place] [address] Jan, [place] [address] [id number] [address] [place] [address] Jan, Type 2 diabetes mellitus wit h hyperglycemia E11.65 ; Chronic renal failure, stage 3 (moderate) N18.3 and Leukocytosis, unspecified type D72.829 [place] [address] [id number] [address] [place] [address] Jan, Type 2 diabetes mellitus wit h hyperglycemia E11.65 [place] [address] [id number] [address] [place] [address] Dec, Gout of left knee due to eloisa al impairment, unspecified chronicity M10.362 [place] [address] [id number] [address] [place] [address] Dec, Gout of left knee due to eloisa al impairment, unspecified chronicity M10.362 and Diabetes E11.9 [place] [address] [place] [id number] [address] [place] [address] 14 Dec, 2015 [facility] [address] [place] [id number] [address] [place] [address] Dec, [facility] [address] [place] [id number] [address] [place] [address] Dec, [facility] [address] [address] 09 Dec, 2015 Chronic kidney disease, stag e 3 N18.3 ; Type 2 diabetes mellitus with diabetic nephropathy E11.21 ; Type 2 diabetes mellitus with hyperglycemia E11.65 and alf 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 [facility] [address] [address] 05 Dec, 2015 Leukocytosis, unspecified ty pe D72.829 ; Chronic renal failure, stage 3 (moderate) N18.3 and Nausea R11.0 [place] [address] [address] Nov, [facility] [address] [address] Jul, [place] [address] [address] Jul, Diabetes E11.9 ; Low back pa in M54.5 and Other chronic pain G89.29 [place] [address] [address] June, [place] [address] [place] [id number] [address] [place] [address] June, [place] [address] [address] Jan, Viral illness B34.9 [place] [address] [place] [id number] [address] [place] [address] 08 Jan, 2015 Type 2 diabetes mellitus wit h hyperglycemia E11.65 ; Pain in right foot M79.671 and Localized edema R60.0 [facility] [address] [id number] [address] [place] [address] Jan, [facility] [address] [id number] [address] [place] [address] Dec, Right foot pain M79.671 ; In somnia, unspecified type G47.00 and Diabetes E11.9 [facility] [address] [id number] [address] [place] [address] Dec, Pain in right foot M79.671 [facility] [address] [id number] [address] [place] [address] Nov, [facility] [address] [id number] [address] [place] [address] Sep, [facility] [address] [id number] [address] [place] [address] Sep, Diabetes mellitus, type II 2 50.00 [facility] [address] [id number] [address] [place] [address] May, [facility] [address] [id number] [address] [place] [address] May, [facility] [address] [id number] [address] [place] [address] Apr, [facility] [address] [id number] [address] [place] [address] Apr, [facility] [address] [id number] [address] [place] [address] Apr, [facility] [address] [id number] [address] [place] [address] 16 Apr, 2014 [facility] [address] [facility] [id number] [address] [place] [address] Apr, [facility] [address] [id number] [address] [place] [address] Apr, [facility] [address] [id number] [address] [place] [address], [place] [address] 05 Apr, 2014 [facility] [address] [id number] [address] [place] [address], [place] [address] 05 Apr, 2014 [facility] [address] [id number] [address] [place] [address], [place] [address] 18 Jan, 2014 [facility] [address] [id number] [address] [place] [address], [place] [address] 18 Jan, 2014 [facility] [address] [id number] [address] [place] [address], [place] [address] Jan, [facility] [address] [id number] [address] [place] [address], [place] [address] Jan, [facility] [address] [id number] [address] [place] [address], [place] [address] Dec, [facility] [address] [id number] [address] [place] [address], [place] [address] Dec, [facility] [address] [id number] [address] [place] [address], [place] [address] Nov, [facility] [address] [id number] [address] [place] [address], [place] [address] Nov, [facility] [address] [id number] [address] [place] [address], [place] [address] Oct, [facility] [address] [id number] [address] [place] [address], [place] [address] Oct, [facility] [address] [id number] [address] [place] [address], [place] [address] Oct, [facility] [address] [id number] [address] [place] [address], [place] [address] Oct, [facility] [address] [id number] [address] [place] [address], [place] [address] Sep, [facility] [address] [id number] [address] [place] [address], [place] [address] Sep, [facility] [address] [id number] [facility] [place] [address] Sep, [facility] [address] [id number] [address] [place] [address], [place] [address] Sep, [facility] [address] [id number] [address] [place] [address], [place] [address] Sep, [facility] [address] [id number] [address] [place] [address], [place] [address] Sep, [facility] [address] [id number] [address] [place] [address], [place] [address] Sep, [facility] [address] [id number] [address] [place] [address], [place] [address] Sep, [facility] [address] [id number] [address] [place] [address], [place] [address] Sep, [facility] [address] [id number] [address] [place] [address], [place] [address] Sep, [facility] [address] [id number] [address] [place] [address], [place] [address] Sep, [facility] [address] [id number] [address] [place] [address], [place] [address] Sep, [facility] [address] [id number] [address] [place] [address], [place] [address] Aug, [facility] [address] [id number] [address] [place] [address], [place] [address] Aug, [facility] [address] [id number] [address] [place] [address], [place] [address] Aug, [facility] [address] [id number] [address] [place] [address], [place] [address] Aug, [facility] [address] [id number] [address] [place] [address], [place] [address] June, [facility] [address] [id number] [facility] [place] [address] 24 May, 2013 [facility] [address] [id number] [address] [place] [address], [place] [address] 24 May, 2013 [facility] [address] [id number] [address] [place] [address], [place] [address] 21 May, 2013 [facility] [address] [id number] [address] [place] [address], [place] [id number] 18 May, 2013 [facility] [address] [id number] [address] [place] [address], [place] [address] 17 May, 2013 [facility] [address] [id number] [address] [place] [address], [place] [address] 17 May, 2013 [facility] [address] [id number] [address] [place] [address], [place] [address] 16 May, 2013 [facility] [address] [id number] [address] [place] [address], [place] [address] 16 May, 2013 [facility] [address] [id number] [address] [place] [address], [place] [address] 14 May, 2013 [facility] [address] [id number] [address] [place] [address], [place] [address] 14 May, 2013 [facility] [address] [id number] [address] [place] [address], [place] [address] 14 May, 2013 [facility] [address] [id number] [address] [place] [address], [place] [address] 14 May, 2013 [facility] [address] [id number] [address] [place] [address], [place] [address] Apr, [facility] [address] [id number] [address] [place] [address], [place] [address] Apr, [facility] [address] [id number] [address] [place] [address], [place] [address] Mar, [facility] [address] [id number] [address] [place] [address], [place] [address] Mar, [facility] [address] [id number] [address] [place] [address], [place] [address] Dec, [facility] [facility] [address] [id number] [address] [place] [address], [place] [address] Dec, [facility] [address] [id number] [address] [place] [address], [place] [address] Dec, [facility] [address] [id number] [address] [place] [address], [place] [address] Dec, [facility] [address] [id number] [address] [place] [address], [place] [address] Nov, [facility] [address] [id number] [address] [place] [address], [place] [address] Nov, [facility] [address] [id number] [address] [place] [address], [place] [address] Oct, [facility] [address] [id number] [address] [place] [address], [place] [address] Oct, [facility] [address] [id number] [address] [place] [address], [place] [address] Aug, [facility] [address] [id number] [address] [place] [address], [place] [address] Aug, [facility] [address] [id number] [address] [place] [address], [place] [address] Aug, [facility] [address] [id number] [address] [place] [address] Jul, [facility] [address] [id number] [address] [place] [address], [place] [address] June, [facility] [address] [id number] [address] [place] [address], [place] [address] June, [facility] [address] [id number] [address] [place] [address], [place] [address] Apr, [facility] [address] [id number] [address] [place] [id number] Mar, [facility] [address] [id number] [address] [place] [address], [place] [address] Mar, [facility] [address] [id number] [address] [place] [address], [place] [address] Mar, [facility] [address] [id number] [address] [place] [address], [place] [address] Mar, [facility] [address] [id number] [address] [place] [address], [place] [address] Mar, [facility] [address] [id number] [address] [place] [address], [place] [address] Feb, [facility] [address] [id number] [address] [place] [address], [place] [address] Feb, [facility] [address] [id number] [address] [place] [address], [place] [address] Feb, [facility] [address] [id number] [address] [place] [address], [place] [address] Feb, [facility] [address] [id number] [address] [place] [address], [place] [address] Jan, [facility] [address] [id number] [address] [place] [address], [place] [address] Jan, [facility] [address] [id number] [address] [place] [address], [place] [address] Dec, [facility] [address] [id number] [address] [place] [address], [place] [address] Dec, [facility] [address] [id number] [address] [place] [address], [place] [address] Dec, [facility] [address] [id number] [address] [place] [address], [place] [address] Dec, [facility] [address] [id number] [address] [place] [address] Oct, [facility] [address] [id number] [address] [place] [address], [place] [address] Aug, [facility] [address] [id number] [address] [place] [address], [place] [address] Jul, [facility] [address] [id number] [address] [place] [address], [place] [address] June, [facility] [address] [id number] [address] [place] [address], [place] [address] June, [facility] [address] [id number] [address] [place] [address], [place] [address] June, [facility] [address] [id number] [address] [place] [address], [place] [address] June, [facility] [address] [id number] [address] [place] [address], [place] [address] June, [facility] [address] [id number] [address] [place] [address], [place] [address] May, [facility] [address] [id number] [address] [place] [address], [place] [address] May, [facility] [address] [id number] [address] [place] [address], [place] [address] Apr, [facility] [address] [id number] [address] [place] [address], [place] [address] Apr, [facility] [address] [id number] [address] [place] [address], [place] [address] Mar, [facility] [address] [id number] [address] [place] [address], [place] [address] Feb, [facility] [address] [id number] [address] [place] [address], [place] [address] Nov, [facility] [address] [id number] [address] [place] [address], [place] [address] Nov, [facility] [address] [id number] [address] [place] [address], [place] [address] 13 Nov, 2010 [facility] [address] [id number] [address] [place] [address], [place] [address] 17 Apr, 2010 [facility] [address] [id number] [address] [place] [address], [place] [address] 07 Jan, 2010 [facility] [address] [id number] [address] [place] [address], [place] [address] 24 Dec, 2009 [facility] [address] [id number] [address] [place] [address], [place] [address] Dec, [facility] [address] [id number] [address] [place] [address], [place] [address] 29 Nov, 2009 [facility] [address] [id number] [address] [place] [address], [place] [address] June, [facility] [address] [id number] [address] [place] [address], [place] [address] 29 Jan, 2009 [facility] [address] [id number] [address] [place] [address], [place] [address] 28 Jan, 2009 [facility] [address] [id number] [address] [place] [address], [place] [address] 23 Jan, 2009 [facility] [address] [id number] [address] [place] [address], [place] [address] 22 Jan, 2009 [facility] [address] [id number] [address] [place] [address], [place] [address] 16 Jan, 2009 [facility] [address] [id number] [address] [place] [address], [place] [address] 15 Jan, 2009 [facility] [address] [id number] [address] [place] [address], [place] [address] 15 Jan, 2009 [facility] [address] [id number] [address] [place] [address], [place] [address] 11 Jan, 2009 [facility] [address] [id number] [address] [place] [address], [place] [address] 11 Jan, 2009 [facility] [address] [id number] [address] [place] [address] Jan, [facility] [address] [facility] [id number] [address] [place] [address] Jan, [facility] [address] [facility] [id number] [address] [place] [phone] Jan, [facility] [address] [facility] [id number] [address] [place] [address] Dec, [facility] [address] [facility] [id number] [address] [place] [address] Dec, [facility] [address] [facility] [id number] [address] [place] [address] Dec, [facility] [address] [facility] [id number] [address] [place] [address] Dec, [facility] [address] [facility] [id number] [address] [place] [address] Nov, [facility] [address] [facility] [id number] [address] [place] [phone] Oct, IMMUNIZATIONS No Known Immunizations SOCIAL HISTORY Never Assessed REASON FOR VISIT [facility] [place] VITAL SIGNS MEDICATIONS Unknown [...] knee pseudogout s tatus post joint fluid analysis[facility] 09/20/16 Hospitalization History kidneys--[facility] 11/2017
--- OUTSIDE RECORDS SUMMARY | 2019-07-04 10:19 | XMS REPORT ---
Author Author Charles Perez Doctor Organization [facility] Address Unknown Phone Unavailable Care Team Providers Care Cripple Chaser Name Role Phone Migration, Doctor Unavailable Unavailable PROBLEMS Type Condition ICD9-CM Code NEE22-AZ Code Onset Dates Condition S tatus SNOMED Code Problem Hypertriglyceridemia E78.1 Active 613609511 Problem Coronary atherosclerosis of unspecified type of vessel, upper sioux or graft I25.10 Active 713419151 Problem Gastroesophageal reflux disease, esophagitis pre sence not specified K21.9 Active 838095572 Problem meterman 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 Active 373616963 Problem Insomnia, unspecified G47.00 Active 013630034 Problem Chronic kidney disease, stage 3 N18.3 Active 216147048 Problem 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 182146193 Problem Primary osteoarthritis of left knee M17.12 Active 369074041670381 Problem Essential hypertension I10 Active 58811550 Problem Chronic kidney disease, stage V (very severe) N18. 5 Active 218227544 Problem End stage kidney disease N18.6 Activ e 67900040 Problem Gout of left knee due to renal impairment, unspe cified chronicity M10.362 Active 064035157 Problem Type 2 diabetes mellitus with hyperglycemia E11.65 Active 424910605553719 Problem Mood disorder F39 Active 106109 05 Problem Delayed gastric emptying K30 Activ e 517549802 Problem Kidney stone N20.0 Active 8631746 7 Problem Proteinuria R80.9 Active 15787127 Problem Sinusitis J32.9 Active 46991719 ALLERGIES Substance Reaction Event Type Date Status Acetaminophen-codeine 300-30 Mg Tablet Failed Ameritox UDS- THC Non Drug Allergy May, Active ENCOUNTERS Encounter Location Date Diagnosis [facility], [place] [address] [facility] [id number] [address] [place] [address] Aug, [facility], [place] [address] [facility] [id number] [address] [place] [address] Jul, Type 2 diabetes mellitus wit h hyperglycemia E11.65 [facility], [place] [address] [facility] [id number] [address] [place] [address] Jul, Type 2 diabetes mellitus wit h hyperglycemia E11.65 [facility], [place] [address] [facility] [id number] [address] [place] [address] Jul, Type 2 diabetes mellitus wit h hyperglycemia E11.65 [facility], [place] [address] [facility] [id number] [address] [place] [address] June, Type 2 diabetes mellitus wit h hyperglycemia E11.65 ; End stage kidney disease N18.6 and Callus L84 [facility], [place] [address] [facility] [id number] [address] [place] [address] May, [facility], [place] [address] [facility] [id number] [address] [place] [address] May, Essential hypertension I10 [facility], [place] [address] [facility] [id number] [address] [place] [address] Apr, [facility], [place] [address] [facility] [id number] [address] [place] [address] Apr, Type 2 diabetes mellitus wit h hyperglycemia E11.65 and Essential hypertension I10 [facility], [place] [address] [facility] [id number] [address] [place] [address] Apr, [facility], [place] [address] [facility] [id number] [address] [place] [address] Apr, Type 2 diabetes mellitus wit h hyperglycemia E11.65 [facility], [place] [address] [facility] [id number] [address] [place] [address] Apr, [facility], [place] [address] [facility] [id number] [address] [place] [address] Mar, Type 2 diabetes mellitus wit h hyperglycemia E11.65 [facility], [place] [address] [facility] [id number] [address] [place] [address] Mar, Type 2 diabetes mellitus wit h diabetic nephropathy E11.21 ; End stage kidney disease N18.6 ; Callus L84 and Onychomycosis B35.1 [facility], [place] [address] [address] Feb, [facility] [address] [address] Feb, Sinusitis J32.9 ; Nausea R11 .0 and Otalgia H92.09 [place] [address] [address] Jan, [facility], [place] [address] [address] Jan, [place] [address] [address] Jan, Essential hypertension I10 ; Gout, unspecified M10.9 ; Coronary atherosclerosis of unspecified type of vessel, upper sioux or graft I25.10 ; Mixed hyperlipidemia E78.2 and Type 2 diabetes mellitus with hyperglycemia E11.65 [place] [address] [address] Dec, Chronic kidney disease, stag e 3 N18.3 ; Proteinuria R80.9 ; Diabetes mellitus E11.9 ; Acute kidney failure, unspecified N17.9 and Mixed hyperlipidemia E78.2 [place] [address] [address] 16 Dec, 2017 Chronic kidney disease, stag e 3 N18.3 ; Essential hypertension I10 ; Proteinuria R80.9 ; Diabetes mellitus E11.9 ; Kidney stone N20.0 ; Acute kidney failure, unspecified N17.9 ; Edema R60.9 and Mixed hyperlipidemia E78.2 [place] [address] [address] Dec, Type 2 diabetes mellitus wit h hyperglycemia E11.65 [place] [address] [address] Dec, Chronic kidney disease, stag e 3 N18.3 [place] [address] [place] [address] Dec, Type 2 diabetes mellitus wit h hyperglycemia E11.65 [place] [address] [place] [id number] [place] [address] Dec, [place] [address] [place] [id number] [address] [place] [address] Nov, Type 2 diabetes mellitus wit h hyperglycemia E11.65 [place] [address] [place] [id number] [place] [address] Nov, [place] [address] [place] [id number] [place] [address] Nov, Chronic kidney disease, stag e V (very severe) N18.5 ; Type 2 diabetes mellitus with hyperglycemia E11.65 ; Encounter for immunization Z23 and Delayed gastric emptying K30 [place] [id number] [place] [address] Nov, [place] [address] [address] Oct, Essential hypertension I10 ; Coronary atherosclerosis of unspecified type of vessel, upper sioux or graft I25.10 ; Type 2 diabetes mellitus with hyperglycemia E11.65 and Gout, unspecified M10.9 [place] [address] [place] [id number] [place] [address] Oct, Chronic kidney disease, stag e V (very severe) N18.5 [place] [address] [place] [id number] [address] [place] [address] Oct, Mixed hyperlipidemia E78.2 [place] [address] [place] [id number] [address] [place] [address] Sep, Type 2 diabetes mellitus wit h hyperglycemia E11.65 [place] [address] [place] [id number] [address] [place] [address] Sep, Mixed hyperlipidemia E78.2 [place] [address] [place] [id number] [address] [place] [address] Sep, Chronic kidney disease, stag e V (very severe) N18.5 [place] [address] [address] Sep, Type 2 diabetes mellitus wit h hyperglycemia E11.65 and Essential hypertension I10 [place] [address] [place] [id number] [place] [address] Sep, Type 2 diabetes mellitus wit h hyperglycemia E11.65 [place] [address] [address] Aug, Gout, unspecified M10.9 ; Ga stroesophageal reflux disease, esophagitis presence not specified K21.9 ; Mood disorder F39 and Coronary atherosclerosis of unspecified type of vessel, upper sioux or graft I25.10 [place] [address] [address] Aug, [place] [address] [address] June, Type 2 diabetes mellitus wit h hyperglycemia E11.65 [place] [address] [address] May, Mood disorder F39 ; Gastroes ophageal reflux disease, esophagitis presence not specified K21.9 ; Gout, unspecified M10.9 ; Coronary atherosclerosis of unspecified type of vessel, upper sioux or graft I25.10 and Type 2 diabetes mellitus with hyperglycemia E11.65 [place] [address] [place] [id number] [address] [place] [address] May, Type 2 diabetes mellitus wit h hyperglycemia E11.65 [place] [address] [place] [id number] [address] [place] [address] Apr, Diabetes E11.9 and Mood diso rder F39 [place] [address] [place] [id number] [address] [place] [address] 15 Mar, 2017 Primary osteoarthritis of le ft knee M17.12 and Tear of lateral meniscus of left knee, unspecified tear type, unspecified whether old or current tear, initial encounter S83.282A [facility], [place] [address] [facility] [id number] [address] [place] [address] Feb, Mood disorder F39 [facility], [place] [address] [facility] [id number] [address] [place] [address] Feb, Pseudogout M11.20 [facility], [place] [address] [facility] [id number] [address] [place] [address] Jan, Other meterman (current) dr anna therapy Z79.899 [facility] [address] [facility] [id number] [address] [place] [address] Jan, [facility], [place] [address] [facility] [id number] [address] [place] [address] Jan, Pseudogout M11.20 ; Type 2 d iabetes mellitus with hyperglycemia E11.65 and Other meterman (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 [facility], [place] [address] [facility] [id number] [address] [place] [address] Jan, Gout of left knee due to eloisa al impairment, unspecified chronicity M10.362 ; Type 2 diabetes mellitus with diabetic nephropathy E11.21 ; Synovial cyst of popliteal space [Mejia], left knee M71.22 and Low back pain M54.5 [facility], [place] [address] [facility] [id number] [address] [place] [address] Dec, Pseudogout M11.20 [facility], [place] [address] [facility] [id number] [address] [place] [address] 14 Dec, 2016 [facility], [place] [address] [facility] [id number] [address] [place] [address] 13 Dec, 2016 Type 2 diabetes mellitus wit h diabetic nephropathy E11.21 and Right anterior knee pain M25.561 [facility], [place] [address] [facility] [id number] [address] [place] [address] Nov, Pseudogout M11.20 [facility], [place] [address] [facility] [id number] [address] [place] [address] Nov, Pseudogout M11.20 ; Chronic kidney disease, stage 3 N18.3 ; Mixed hyperlipidemia E78.2 ; Gout, unspecified M10.9 ; Coronary atherosclerosis of unspecified type of vessel, upper sioux or graft I25.10 ; Mood disorder F39 and Gastroesophageal reflux disease, esophagitis presence not specified K21.9 [facility], [place] [address] [place] [id number] [address] [place] [address] Nov, [facility], [place] [address] [address] Oct, Pseudogout M11.20 [place] [address] [place] [id number] [place] [address] Sep, Pseudogout M11.20 [place] [address] [place] [id number] [place] [address] Sep, Pseudogout M11.20 [place] [address] [address] Sep, [facility] [address] [place] [id number] [place] [id number] Aug, [facility], [place] [address] [place] [id number] [place] [address] Aug, Diabetes E11.9 ; Chronic kid tahir disease, stage 3 N18.3 ; Hyperuricemia E79.0 ; Mixed hyperlipidemia E78.2 ; Gastroesophageal reflux disease, esophagitis presence not specified K21.9 ; Gout, unspecified M10.9 ; Coronary atherosclerosis of unspecified type of vessel, upper sioux or graft I25.10 and Mood disorder F39 [facility], [place] [address] [place] [id number] [address] [place] [address] June, [facility], [place] [address] [place] [id number] [place] [address] June, [facility], [place] [address] [place] [id number] [address] [place] [address] June, [place] [id number] [id number] [address] [place] [address] May, Chronic renal failure, stage 3 (moderate) N18.3 [facility], [place] [address] [id number] [address] [place] [address] May, Diabetes E11.9 [facility], [place] [address] [id number] [address] [place] [address] May, [facility], [place] [address] [facility] [id number] [address] [place] [address] Apr, [facility], [place] [address] [id number] [address] [place] [address] Apr, [facility], [place] [address] [facility] [id number] [address] [place] [address] Apr, Cellulitis of right lower ex tremity L03.115 and Diabetes E11.9 [facility], [place] [address] [facility] [id number] [address] [place] [address] Apr, Type 2 diabetes mellitus wit h hyperglycemia E11.65 [facility], [place] [address] [id number] [address] [place] [address] Mar, Cellulitis of right lower ex tremity L03.115 and Low back pain M54.5 [facility], [place] [address] [facility] [id number] [address] [place] [address] Mar, [facility], [place] [address] [facility] [id number] [address] [place] [address] Mar, Cellulitis of right lower ex tremity L03.115 [facility], [place] [address] [facility] [id number] [address] [place] [address] Mar, Cellulitis of right lower ex tremity L03.115 [facility], [place] [address] [facility] [id number] [address] [place] [address] Feb, Cellulitis of right lower ex tremity L03.115 [facility], [place] [address] [id number] [address] [place] [address] Feb, Cellulitis of right lower ex tremity L03.115 [place] [address] [id number] [address] [place] [address] Feb, [facility], [place] [address] [id number] [address] [place] [address] Feb, Leukocytosis, unspecified ty pe D72.829 ; Chronic renal failure, stage 3 (moderate) N18.3 and Type 2 diabetes mellitus with hyperglycemia E11.65 [place] [address] [id number] [address] [place] [address] Feb, Leukocytosis, unspecified ty pe D72.829 [place] [address] [facility] [id number] [address] [place] [address] Feb, [place] [address] [facility] [id number] [address] [place] [address] Feb, Cellulitis of right lower ex tremity L03.115 ; Thrush B37.0 ; Gout of left knee due to renal impairment, unspecified chronicity M10.362 and Chronic renal failure, stage 3 (moderate) N18.3 [place] [address] [facility] [id number] [address] [place] [address] Feb, [place] [address] [facility] [id number] [address] [place] [address] Feb, Right foot infection L08.9 ; Type 2 diabetes mellitus with hyperglycemia E11.65 ; Arthralgia of left knee M25.562 ; Chronic kidney disease, stage 3 N18.3 and Diabetes E11.9 [place] [address] [id number] [address] [place] [address] Feb, [place] [address] [facility] [id number] [address] [place] [address] Feb, Diabetes E11.9 ; Arthralgia of left knee M25.562 and Thrush B37.0 [place] [address] [facility] [id number] [place] [address] Jan, [place] [address] [address] Jan, Type 2 diabetes mellitus wit h hyperglycemia E11.65 ; Chronic renal failure, stage 3 (moderate) N18.3 and Leukocytosis, unspecified type D72.829 [place] [address] [address] Jan, Type 2 diabetes mellitus wit h hyperglycemia E11.65 [place] [address] [place] [id number] [place] [address] Dec, Gout of left knee due to eloisa al impairment, unspecified chronicity M10.362 [place] [address] [address] Dec, Gout of left knee due to eloisa al impairment, unspecified chronicity M10.362 and Diabetes E11.9 [place] [address] [address] Dec, [place] [address] [address] Dec, [facility] [place] [address] [address] Dec, [place] [address] [address] Dec, Chronic kidney disease, stag e 3 N18.3 ; Type 2 diabetes mellitus with diabetic nephropathy E11.21 ; Type 2 diabetes mellitus with hyperglycemia E11.65 and meterman 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 [facility] [address] [address] 05 Dec, 2015 Leukocytosis, unspecified ty pe D72.829 ; Chronic renal failure, stage 3 (moderate) N18.3 and Nausea R11.0 [place] [address] [address] Nov, [facility], [place] [address] [id number] [address] [place] [address] Jul, [facility], [place] [address] [facility] [id number] [address] [place] [address] Jul, Diabetes E11.9 ; Low back pa in M54.5 and Other chronic pain G89.29 [facility] [place] [address] [facility] [id number] [address] [place] [address] June, [facility], [place] [address] [facility] [id number] [address] [place] [address] June, [facility] [place] [address] [facility] [id number] [address] [place] [address] Jan, Viral illness B34.9 [facility] [place] [address] [facility] [id number] [address] [place] [address] Jan, Type 2 diabetes mellitus wit h hyperglycemia E11.65 ; Pain in right foot M79.671 and Localized edema R60.0 [facility] [place] [address] [id number] [address] [place] [address] Jan, [facility] [place] [address] [facility] [id number] [address] [place] [address] Dec, Right foot pain M79.671 ; In somnia, unspecified type G47.00 and Diabetes E11.9 [facility] [place] [address] [facility] [id number] [address] [place] [address] Dec, Pain in right foot M79.671 [facility] [place] [address] [id number] [address] [place] [address] Nov, [facility] [place] [address] [facility] [id number] [address] [place] [address] Sep, [facility] [place] [address] [facility] [id number] [address] [place] [address] Sep, Diabetes mellitus, type II 2 50.00 [facility] [place] [address] [facility] [id number] [address] [place] [address] 14 May, 2014 [facility] [address] [id number] [address] [place] [address], [place] [address] 13 May, 2014 [facility] [address] [id number] [address] [place] [address], [place] [address] 19 Apr, 2014 [facility] [address] [id number] [address] [place] [address], [place] [address] 19 Apr, 2014 [facility] [address] [id number] [address] [place] [address], [place] [address] 16 Apr, 2014 [facility] [address] [id number] [address] [place] [address], [place] [address] 16 Apr, 2014 [facility] [address] [id number] [address] [place] [address], [place] [address] 12 Apr, 2014 [facility] [address] [id number] [address] [place] [address], [place] [address] 12 Apr, 2014 [facility] [address] [id number] [address] [place] [address], [place] [address] 05 Apr, 2014 [facility] [address] [id number] [address] [place] [address], [place] [address] 05 Apr, 2014 [facility] [address] [id number] [address] [place] [address], [place] [address] 18 Jan, 2014 [facility] [address] [id number] [address] [place] [address], [place] [address] 18 Jan, 2014 [facility] [address] [id number] [address] [place] [address], [place] [address] 15 Jan, 2014 [facility] [address] [id number] [address] [place] [address], [place] [address] 15 Jan, 2014 [facility] [address] [id number] [address] [place] [address], [place] [address] 10 Dec, 2013 [facility] [address] [id number] [address] [place] [address], [place] [address] 10 Dec, 2013 [facility] [address] [id number] [address] [place] [address] Nov, [facility] [address] [id number] [address] [place] [address], [place] [address] Nov, [facility] [address] [id number] [facility] [place] [address] Oct, [facility] [address] [id number] [address] [place] [address], [place] [address] Oct, [facility] [address] [id number] [address] [place] [address], [place] [address] 05 Oct, 2013 [facility] [address] [id number] [address] [place] [address], [place] [address] Oct, [facility] [address] [id number] [address] [place] [address], [place] [address] Sep, [facility] [address] [id number] [address] [place] [address], [place] [address] Sep, [facility] [address] [id number] [address] [place] [address], [place] [address] Sep, [facility] [address] [id number] [address] [place] [address], [place] [address] Sep, [facility] [address] [id number] [address] [place] [address], [place] [address] Sep, [facility] [address] [id number] [address] [place] [address], [place] [address] Sep, [facility] [address] [id number] [address] [place] [address], [place] [address] Sep, [facility] [address] [id number] [address] [place] [address], [place] [address] Sep, [facility] [address] [id number] [address] [place] [address], [place] [address] Sep, [facility] [address] [id number] [address] [place] [address], [place] [address] Sep, [facility] [address] [id number] [facility] [place] [address] Sep, [facility] [address] [id number] [address] [place] [address], [place] [address] Sep, [facility] [address] [id number] [facility] [place] [place] [address] Aug, [facility] [address] [id number] [address] [place] [address], [place] [address] Aug, [facility] [address] [id number] [address] [place] [address], [place] [address] Aug, [facility] [address] [id number] [address] [place] [address], [place] [address] Aug, [facility] [address] [id number] [address] [place] [address], [place] [address] June, [facility] [address] [id number] [address] [place] [address], [place] [address] May, [facility] [address] [id number] [address] [place] [address], [place] [address] May, [facility] [address] [id number] [address] [place] [address], [place] [address] May, [facility] [address] [id number] [address] [place] [address], [place] [address] 18 May, 2013 [facility] [address] [id number] [address] [place] [address], [place] [address] May, [facility] [address] [id number] [address] [place] [address], [place] [address] May, [facility] [address] [id number] [address] [place] [address], [place] [address] 16 May, 2013 [facility] [address] [id number] [address] [place] [address], [place] [address] May, [facility] [address] [id number] [address] [place] [address], [place] [address] 14 May, 2013 [facility] [address] [id number] [address] [place] [address], [place] [address] 14 May, 2013 [facility] [address] [id number] [address] [place] [address], [place] [address] 14 May, 2013 [facility] [address] [id number] [address] [place] [address], [place] [address] 14 May, 2013 [facility] [address] [id number] [address] [place] [address], [place] [address] Apr, [facility] [address] [id number] [address] [place] [address], [place] [address] Apr, [facility] [address] [id number] [address] [place] [address], [place] [address] Mar, [facility] [address] [id number] [address] [place] [address], [place] [address] Mar, [facility] [address] [id number] [address] [place] [address], [place] [address] Dec, [facility] [address] [id number] [address] [place] [address], [place] [address] Dec, [facility] [address] [id number] [address] [place] [address], [place] [address] Dec, [facility] [address] [id number] [address] [place] [address], [place] [address] Dec, [facility] [address] [id number] [address] [place] [address], [place] [address] Nov, [facility] [address] [id number] [address] [place] [address], [place] [address] Nov, [facility] [address] [id number] [address] [place] [address], [place] [address] 30 Oct, 2012 [facility] [address] [id number] [address] [place] [address], [place] [address] Oct, [facility] [address] [id number] [address] [place] [address], [place] [address] Aug, [facility] [address] [id number] [address] [place] [address], [place] [address] Aug, [facility] [address] [id number] [address] [place] [address], [place] [address] Aug, [facility] [address] [id number] [address] [place] [address], [place] [address] Jul, [facility] [address] [id number] [address] [place] [address], [place] [address] June, [facility] [address] [id number] [address] [place] [address], [place] [address] June, [facility] [address] [id number] [address] [place] [address], [place] [address] Apr, [facility] [address] [id number] [address] [place] [address], [place] [address] Mar, [facility] [address] [id number] [address] [place] [address], [place] [address] Mar, [facility] [address] [id number] [address] [place] [address], [place] [address] Mar, [facility] [address] [id number] [address] [place] [address], [place] [address] Mar, [facility] [address] [id number] [address] [place] [address], [place] [address] Mar, [facility] [address] [id number] [address] [place] [address], [place] [address] Feb, [facility] [address] [id number] [address] [place] [address], [place] [address] Feb, [facility] [address] [id number] [address] [place] [address], [place] [address] Feb, [facility] [address] [id number] [address] [place] [address], [place] [address] Feb, [facility] [address] [id number] [address] [place] [address], [place] [address] Jan, [facility] [address] [id number] [address] [place] [address], [place] [address] Jan, [facility] [address] [id number] [address] [place] [address], [place] [address] Dec, [facility] [address] [id number] [address] [place] [address], [place] [address] Dec, [facility] [address] [id number] [address] [place] [address], [place] [address] Dec, [facility] [address] [id number] [address] [place] [address], [place] [address] Dec, [facility] [address] [id number] [address] [place] [address], [place] [address] Oct, [facility] [address] [id number] [address] [place] [address], [place] [address] Aug, [facility] [address] [id number] [address] [place] [address], [place] [address] Jul, [facility] [address] [id number] [address] [place] [address], [place] [address] June, [facility] [address] [id number] [address] [place] [address], [place] [address] June, [facility] [address] [id number] [address] [place] [address], [place] [address] June, [facility] [address] [id number] [address] [place] [address], [place] [address] June, [facility] [address] [id number] [address] [place] [address], [place] [address] June, [facility] [address] [id number] [address] [place] [address], [place] [address] May, [facility] [address] [id number] [address] [place] [address], [place] [address] 23 May, 2011 [facility] [address] [id number] [address] [place] [address], [place] [address] 15 Apr, 2011 [facility] [address] [id number] [address] [place] [address], [place] [address] 13 Apr, 2011 [facility] [address] [id number] [address] [place] [address], [place] [address] Mar, [facility] [address] [id number] [address] [place] [address], [place] [address] Feb, [facility] [address] [id number] [address] [place] [address], [place] [address] 26 Nov, 2010 [facility] [address] [id number] [address] [place] [address], [place] [address] 13 Nov, 2010 [facility] [address] [id number] [address] [place] [address], [place] [address] Nov, [facility] [address] [id number] [address] [place] [address], [place] [address] 17 Apr, 2010 [facility] [address] [id number] [address] [place] [address], [place] [address] Jan, [facility] [address] [id number] [address] [place] [address], [place] [address] Dec, [facility] [address] [id number] [address] [place] [address], [place] [address] Dec, [facility] [address] [id number] [address] [place] [address], [place] [address] Nov, [facility] [address] [id number] [address] [place] [address], [place] [address] June, [facility] [address] [id number] [address] [place] [address], [place] [address] 29 Jan, 2009 [facility] [address] [id number] [address] [address] 28 Jan, 2009 [facility] [address] [id number] [address] [place] [address], [place] [address] 23 Jan, 2009 [facility] [address] [id number] [address] [place] [address] 22 Jan, 2009 [facility] [address] [id number] [address] [place] [address] 16 Jan, 2009 [facility] [address] [id number] [address] [place] [address] 15 Jan, 2009 [facility] [address] [id number] [address] [place] [address] 15 Jan, 2009 [facility] [address] [id number] [address] [place] [address] 11 Jan, 2009 [facility] [address] [id number] [address] [place] [address] 11 Jan, 2009 [facility] [address] [id number] [address] [place] [address] 10 Jan, 2009 [facility] [address] [id number] [address] [place] [address] 04 Jan, 2009 [facility] [address] [id number] [address] [place] [address] 02 Jan, 2009 [facility] [address] [id number] [address] [place] [address] 25 Dec, 2008 [facility] [address] [id number] [address] [place] [address] 19 Dec, 2008 [facility] [address] [id number] [address] [place] [address] 17 Dec, 2008 [facility] [address] [id number] [address] [place] [address] 17 Dec, 2008 [facility] [address] [id number] [address] [place] [address] 20 Nov, 2008 [facility] [address] [id number] [address] [place] [address] 10 Oct, 2008 IMMUNIZATIONS No Known Immunizations SOCIAL HISTORY Never Assessed REASON FOR VISIT [facility] [place] PLAN OF CARE VITAL SIGNS MEDICATIONS Medication Instructions Dosage Frequency Start Date End Date Duration S tatus Permethrin 5 % 1 Application by Top ical route 1 time per week head to toe, leave on for 8 hours, then wash off. Apr, Active Actos 15 mg take 1 tablet (15 mg) by oral route once daily Jan, Active Seroquel 50 mg 1-2 tablet by Oral route 1 time per day at bedtime Jan, Active Allopurinol 300 mg 1 tablet by Oral route 1 time per day Jan, Active GlipiZIDE 10 mg 1 tablet by Oral route 2 times per day 1 Jan, Active Lipitor 10 mg 1 tablet by Oral route 1 time per day 15 2013 Active metformin 500 mg take 2 tablet by Ora l route 2 times per day with the evening meal Jan, Active Indomethacin 50 mg 1 capsule by Oral route 3 times per day Jan, Active Levemir 100 units/mL inject 100 units by Subcutaneous route 2 times per day Apr, Active Ranitidine HCl 150 mg 1 tablet by Oral route every 12 hours Apr, Active Lisinopril 5 mg 1 tablet by Oral route 1 time per day Jan, Active HydrOXYzine HCl 50 mg 1 tablet by Oral route 4 t imes per day PRN for anxiety Jan, Active cyclobenzaprine 10 mg 1 tablet 3 times per day PRN 2013 Active RESULTS No Results PROCEDURES No Known [...] pseudogout s tatus post joint fluid analysis-[facility] 09/20/16 Hospitalization History kidneys--[facility] 11/2017 Hospitalization History Diverticulitis--[facility] 06/2018
--- OUTSIDE RECORDS SUMMARY | 2019-07-04 10:20 | XMS REPORT ---
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 5 Active 484504651 Problem End stage kidney disease N18.6 Activ e 48907834 Problem Gout of left knee due to renal impairment, unspe cified chronicity M10.362 Active 626235817 Problem Type 2 diabetes mellitus with hyperglycemia E11.65 Active [id number] Problem Mood disorder F39 Active 495149 05 Problem Delayed gastric emptying K30 Activ e 551871621 Problem Kidney stone N20.0 Active 8319448 7 Problem Proteinuria R80.9 Active 41097206 Problem Sinusitis J32.9 Active 09875383 ALLERGIES No Information ENCOUNTERS Encounter Location Date Diagnosis [facility] [address] [facility] [id number] [address] [place] [address] May, [facility] [address] [facility] [id number] [address] [place] [address] May, Essential hypertension I10 [facility] [address] [facility] [id number] [address] [place] [address] Apr, [facility] [address] [facility] [id number] [address] Apr, Type 2 diabetes mellitus wit h hyperglycemia E11.65 and Essential hypertension I10 [place] [address] [address] Apr, [facility] [address] [address] Apr, Type 2 diabetes mellitus wit h hyperglycemia E11.65 [facility] [address] [address] Apr, [place] [address] [address] Mar, Type 2 diabetes mellitus wit h hyperglycemia E11.65 [place] [address] [address] Mar, Type 2 diabetes mellitus wit h diabetic nephropathy E11.21 ; End stage kidney disease N18.6 ; Callus L84 and Onychomycosis B35.1 [place] [address] [address] Feb, [facility] [address] [address] Feb, Sinusitis J32.9 ; Nausea R11 .0 and Otalgia H92.09 [place] [address] [address] Jan, [facility] [address] [address] Jan, [place] [address] [address] Jan, Essential hypertension I10 ; Gout, unspecified M10.9 ; Coronary atherosclerosis of unspecified type of vessel, kletsel dehe wintun or graft I25.10 ; Mixed hyperlipidemia E78.2 and Type 2 diabetes mellitus with hyperglycemia E11.65 [place] [address] [place] [address] [place] [address] Dec, Chronic kidney disease, stag e 3 N18.3 ; Proteinuria R80.9 ; Diabetes mellitus E11.9 ; Acute kidney failure, unspecified N17.9 and Mixed hyperlipidemia E78.2 [facility] [address] [place] [id number] [address] [place] [address] 16 Dec, 2017 Chronic kidney disease, stag e 3 N18.3 ; Essential hypertension I10 ; Proteinuria R80.9 ; Diabetes mellitus E11.9 ; Kidney stone N20.0 ; Acute kidney failure, unspecified N17.9 ; Edema R60.9 and Mixed hyperlipidemia E78.2 [place] [address] [address] Dec, Type 2 diabetes mellitus wit h hyperglycemia E11.65 [place] [address] [address] Dec, Chronic kidney disease, stag e 3 N18.3 [place] [address] [address] 06 Dec, 2017 Type 2 diabetes mellitus wit h hyperglycemia E11.65 [place] [address] [address] Dec, [place] [address] [address] Nov, Type 2 diabetes mellitus wit h hyperglycemia E11.65 [place] [address] [place] [id number] [address] [place] [address] Nov, [place] [address] [address] 17 Nov, 2017 Chronic kidney disease, stag e V (very severe) N18.5 ; Type 2 diabetes mellitus with hyperglycemia E11.65 ; Encounter for immunization Z23 and Delayed gastric emptying K30 [facility] [address] [place] [id number] [address] [place] [address] 10 Nov, 2017 [place] [address] [place] [id number] [address] [place] [address] Oct, Essential hypertension I10 ; Coronary atherosclerosis of unspecified type of vessel, kletsel dehe wintun or graft I25.10 ; Type 2 diabetes mellitus with hyperglycemia E11.65 and Gout, unspecified M10.9 [place] [address] [facility] [id number] [address] [place] [address] Oct, Chronic kidney disease, stag e V (very severe) N18.5 [place] [address] [facility] [id number] [address] [place] [address] Oct, Mixed hyperlipidemia E78.2 [place] [address] [place] [id number] [place] [address] Sep, Type 2 diabetes mellitus wit h hyperglycemia E11.65 [place] [address] [place] [id number] [address] [place] [address] Sep, Mixed hyperlipidemia E78.2 [place] [address] [facility] [id number] [address] [place] [address] Sep, Chronic kidney disease, stag e V (very severe) N18.5 [place] [address] [place] [id number] [address] [place] [address] Sep, Type 2 diabetes mellitus wit h hyperglycemia E11.65 and Essential hypertension I10 [place] [address] [place] [id number] [address] [place] [address] Sep, Type 2 diabetes mellitus wit h hyperglycemia E11.65 [place] [address] [facility] [id number] [address] [place] [address] Aug, Gout, unspecified M10.9 ; Ga stroesophageal reflux disease, esophagitis presence not specified K21.9 ; Mood disorder F39 and Coronary atherosclerosis of unspecified type of vessel, kletsel dehe wintun or graft I25.10 [place] [address] [facility] [id number] [address] [place] [address] Aug, [place] [address] [place] [id number] [address] [place] [address] June, Type 2 diabetes mellitus wit h hyperglycemia E11.65 [place] [address] [facility] [id number] [address] [place] [address] May, Mood disorder F39 ; Gastroes ophageal reflux disease, esophagitis presence not specified K21.9 ; Gout, unspecified M10.9 ; Coronary atherosclerosis of unspecified type of vessel, kletsel dehe wintun or graft I25.10 and Type 2 diabetes mellitus with hyperglycemia E11.65 [place] [address] [facility] [id number] [address] [place] [address] May, Type 2 diabetes mellitus wit h hyperglycemia E11.65 [place] [address] [place] [id number] [address] [place] [address] Apr, Diabetes E11.9 and Mood diso rder F39 [place] [address] [place] [id number] [address] [place] [address] 15 Mar, 2017 Primary osteoarthritis of le ft knee M17.12 and Tear of lateral meniscus of left knee, unspecified tear type, unspecified whether old or current tear, initial encounter S83.282A [place] [address] [facility] [id number] [address] [place] [address] Feb, Mood disorder F39 [place] [address] [place] [id number] [address] [place] [address] Feb, Pseudogout M11.20 [facility] [address] [facility] [id number] [address] [place] [address] Jan, 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 [facility] [address] [facility] [id number] [address] [place] [address] Jan, [facility] [address] [facility] [id number] [address] [place] [address] Jan, Pseudogout M11.20 ; Type 2 d iabetes mellitus with hyperglycemia E11.65 and 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 [facility] [address] [place] [id number] [address] [place] [address] 18 Jan, 2017 Gout of left knee due to eloisa al impairment, unspecified chronicity M10.362 ; Type 2 diabetes mellitus with diabetic nephropathy E11.21 ; Synovial cyst of popliteal space [Mejia], left knee M71.22 and Low back pain M54.5 [facility] [address] [place] [id number] [address] [place] [address] Dec, Pseudogout M11.20 [place] [address] [place] [id number] [place] [address] Dec, [place] [address] [address] 13 Dec, 2016 Type 2 diabetes mellitus wit h diabetic nephropathy E11.21 and Right anterior knee pain M25.561 [place] [address] [address] Nov, Pseudogout M11.20 [place] [address] [place] [id number] [place] [address] Nov, Pseudogout M11.20 ; Chronic kidney disease, stage 3 N18.3 ; Mixed hyperlipidemia E78.2 ; Gout, unspecified M10.9 ; Coronary atherosclerosis of unspecified type of vessel, kletsel dehe wintun or graft I25.10 ; Mood disorder F39 and Gastroesophageal reflux disease, esophagitis presence not specified K21.9 [place] [address] [place] [id number] [address] [place] [address] Nov, [place] [address] [place] [id number] [address] [place] [address] Oct, Pseudogout M11.20 [place] [address] [place] [id number] [place] [address] Sep, Pseudogout M11.20 [place] [address] [place] [id number] [address] [place] [address] Sep, Pseudogout M11.20 [place] [address] [id number] [place] [address], [place] [address] Sep, [facility] [address] [place] [id number] [place] [id number] Aug, [facility] [address] [address] Aug, Diabetes E11.9 ; Chronic kid tahir disease, stage 3 N18.3 ; Hyperuricemia E79.0 ; Mixed hyperlipidemia E78.2 ; Gastroesophageal reflux disease, esophagitis presence not specified K21.9 ; Gout, unspecified M10.9 ; Coronary atherosclerosis of unspecified type of vessel, kletsel dehe wintun or graft I25.10 and Mood disorder F39 [facility] [address] [address] June, [facility] [address] [address] June, [facility] [address] [address] June, [facility] [address] [address] May, Chronic renal failure, stage 3 (moderate) N18.3 [facility] [address] [address] May, Diabetes E11.9 [facility] [address] [address] May, [facility] [address] [address] Apr, [facility] [address] [address] Apr, [facility] [address] [address] Apr, Cellulitis of right lower ex tremity L03.115 and Diabetes E11.9 [facility] [address] [address] Apr, Type 2 diabetes mellitus wit h hyperglycemia E11.65 [place] [address] [id number] [address] [place] [address] Mar, Cellulitis of right lower ex tremity L03.115 and Low back pain M54.5 [facility] [address] [id number] [address] [place] [address] Mar, [place] [address] [id number] [address] [place] [address] Mar, Cellulitis of right lower ex tremity L03.115 [place] [address] [id number] [address] [place] [address] Mar, Cellulitis of right lower ex tremity L03.115 [place] [address] [id number] [address] [place] [address] Feb, Cellulitis of right lower ex tremity L03.115 [place] [address] [id number] [address] [place] [address] Feb, Cellulitis of right lower ex tremity L03.115 [place] [address] [id number] [address] [place] [address] Feb, [place] [address] [facility] [id number] [address] [place] [address] Feb, Leukocytosis, unspecified ty pe D72.829 ; Chronic renal failure, stage 3 (moderate) N18.3 and Type 2 diabetes mellitus with hyperglycemia E11.65 [place] [address] [id number] [address] [place] [address] Feb, Leukocytosis, unspecified ty pe D72.829 [place] [address] [facility] [id number] [address] [place] [address] Feb, [place] [address] [facility] [id number] [address] [place] [address] Feb, Cellulitis of right lower ex tremity L03.115 ; Thrush B37.0 ; Gout of left knee due to renal impairment, unspecified chronicity M10.362 and Chronic renal failure, stage 3 (moderate) N18.3 [place] [address] [id number] [address] [place] [address] Feb, [place] [address] [id number] [address] [place] [address] Feb, Right foot infection L08.9 ; Type 2 diabetes mellitus with hyperglycemia E11.65 ; Arthralgia of left knee M25.562 ; Chronic kidney disease, stage 3 N18.3 and Diabetes E11.9 [place] [address] [id number] [address] [place] [address] Feb, [place] [address] [id number] [address] [place] [address] Feb, Diabetes E11.9 ; Arthralgia of left knee M25.562 and Thrush B37.0 [place] [address] [id number] [address] [place] [address] Jan, [place] [address] [id number] [address] [place] [address] Jan, Type 2 diabetes mellitus wit h hyperglycemia E11.65 ; Chronic renal failure, stage 3 (moderate) N18.3 and Leukocytosis, unspecified type D72.829 [place] [address] [id number] [address] [place] [address] Jan, Type 2 diabetes mellitus wit h hyperglycemia E11.65 [place] [address] [id number] [address] [place] [address] Dec, Gout of left knee due to eloisa al impairment, unspecified chronicity M10.362 [place] [address] [id number] [address] [place] [address] Dec, Gout of left knee due to eloisa al impairment, unspecified chronicity M10.362 and Diabetes E11.9 [place] [address] [place] [id number] [address] [place] [address] 14 Dec, 2015 [facility] [address] [place] [id number] [address] [place] [address] Dec, [facility] [address] [place] [id number] [address] [place] [address] Dec, [facility] [address] [address] 09 Dec, 2015 Chronic kidney disease, stag e 3 N18.3 ; Type 2 diabetes mellitus with diabetic nephropathy E11.21 ; Type 2 diabetes mellitus with hyperglycemia E11.65 and long-term 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 [facility] [address] [address] 05 Dec, 2015 Leukocytosis, unspecified ty pe D72.829 ; Chronic renal failure, stage 3 (moderate) N18.3 and Nausea R11.0 [place] [address] [address] Nov, [facility] [address] [address] Jul, [place] [address] [address] Jul, Diabetes E11.9 ; Low back pa in M54.5 and Other chronic pain G89.29 [place] [address] [address] June, [place] [address] [place] [id number] [address] [place] [address] June, [place] [address] [address] Jan, Viral illness B34.9 [place] [address] [place] [id number] [address] [place] [address] 08 Jan, 2015 Type 2 diabetes mellitus wit h hyperglycemia E11.65 ; Pain in right foot M79.671 and Localized edema R60.0 [facility] [address] [id number] [address] [place] [address] Jan, [facility] [address] [id number] [address] [place] [address] Dec, Right foot pain M79.671 ; In somnia, unspecified type G47.00 and Diabetes E11.9 [facility] [address] [id number] [address] [place] [address] Dec, Pain in right foot M79.671 [facility] [address] [id number] [address] [place] [address] Nov, [facility] [address] [id number] [address] [place] [address] Sep, [facility] [address] [id number] [address] [place] [address] Sep, Diabetes mellitus, type II 2 50.00 [facility] [address] [id number] [address] [place] [address] May, [facility] [address] [id number] [address] [place] [address] May, [facility] [address] [id number] [address] [place] [address] Apr, [facility] [address] [id number] [address] [place] [address] Apr, [facility] [address] [id number] [address] [place] [address] Apr, [facility] [address] [id number] [address] [place] [address] 16 Apr, 2014 [facility] [address] [facility] [id number] [address] [place] [address] Apr, [facility] [address] [id number] [address] [place] [address] Apr, [facility] [address] [id number] [address] [place] [address], [place] [address] 05 Apr, 2014 [facility] [address] [id number] [address] [place] [address], [place] [address] 05 Apr, 2014 [facility] [address] [id number] [address] [place] [address], [place] [address] 18 Jan, 2014 [facility] [address] [id number] [address] [place] [address], [place] [address] 18 Jan, 2014 [facility] [address] [id number] [address] [place] [address], [place] [address] Jan, [facility] [address] [id number] [address] [place] [address], [place] [address] Jan, [facility] [address] [id number] [address] [place] [address], [place] [address] Dec, [facility] [address] [id number] [address] [place] [address], [place] [address] Dec, [facility] [address] [id number] [address] [place] [address], [place] [address] Nov, [facility] [address] [id number] [address] [place] [address], [place] [address] Nov, [facility] [address] [id number] [address] [place] [address], [place] [address] Oct, [facility] [address] [id number] [address] [place] [address], [place] [address] Oct, [facility] [address] [id number] [address] [place] [address], [place] [address] Oct, [facility] [address] [id number] [address] [place] [address], [place] [address] Oct, [facility] [address] [id number] [address] [place] [address], [place] [address] Sep, [facility] [address] [id number] [address] [place] [address], [place] [address] Sep, [facility] [address] [id number] [facility] [address] Sep, [facility] [address] [id number] [address] [place] [address], [place] [address] Sep, [facility] [address] [id number] [address] [place] [address], [place] [address] Sep, [facility] [address] [id number] [address] [place] [address], [place] [address] Sep, [facility] [address] [id number] [address] [place] [address], [place] [address] Sep, [facility] [address] [id number] [address] [place] [address], [place] [address] Sep, [facility] [address] [id number] [address] [place] [address], [place] [address] Sep, [facility] [address] [id number] [address] [place] [address], [place] [address] Sep, [facility] [address] [id number] [address] [place] [address], [place] [address] Sep, [facility] [address] [id number] [address] [place] [address], [place] [address] Sep, [facility] [address] [id number] [address] [place] [address], [place] [address] Aug, [facility] [address] [id number] [address] [place] [address], [place] [address] Aug, [facility] [address] [id number] [address] [place] [address], [place] [address] Aug, [facility] [address] [id number] [address] [place] [address], [place] [address] Aug, [facility] [address] [id number] [address] [place] [address], [place] [address] June, [facility] [address] [id number] [facility] [place] [address] 24 May, 2013 [facility] [address] [id number] [address] [place] [address], [place] [address] 24 May, 2013 [facility] [address] [id number] [address] [place] [address], [place] [address] 21 May, 2013 [facility] [address] [id number] [address] [place] [address], [place] [address] 18 May, 2013 [facility] [address] [id number] [address] [place] [address], [place] [address] 17 May, 2013 [facility] [address] [id number] [address] [place] [address], [place] [address] 17 May, 2013 [facility] [address] [id number] [address] [place] [address], [place] [address] 16 May, 2013 [facility] [address] [id number] [address] [place] [address], [place] [address] 16 May, 2013 [facility] [address] [id number] [address] [place] [address], [place] [address] 14 May, 2013 [facility] [address] [id number] [address] [place] [address], [place] [address] 14 May, 2013 [facility] [address] [id number] [address] [place] [address], [place] [address] 14 May, 2013 [facility] [address] [id number] [address] [place] [address], [place] [address] 14 May, 2013 [facility] [address] [id number] [address] [place] [address], [place] [address] Apr, [facility] [address] [id number] [address] [place] [address], [place] [address] Apr, [facility] [address] [id number] [address] [place] [address], [place] [address] Mar, [facility] [address] [id number] [address] [place] [address], [place] [address] Mar, [facility] [address] [id number] [address] [place] [address], [place] [address] Dec, [facility] [address] [id number] [address] [place] [address], [place] [address] Dec, [facility] [address] [id number] [address] [place] [address], [place] [address] Dec, [facility] [address] [id number] [address] [place] [address], [place] [address] Dec, [facility] [address] [id number] [address] [place] [address], [place] [address] Nov, [facility] [address] [id number] [address] [place] [address], [place] [address] Nov, [facility] [address] [id number] [address] [place] [address], [place] [address] Oct, [facility] [address] [id number] [address] [place] [address], [place] [address] Oct, [facility] [address] [id number] [address] [place] [address], [place] [address] Aug, [facility] [address] [id number] [address] [place] [address], [place] [address] Aug, [facility] [address] [id number] [address] [place] [address], [place] [address] Aug, [facility] [address] [id number] [address] [place] [id number] Jul, [facility] [address] [id number] [address] [place] [address], [place] [address] June, [facility] [address] [id number] [address] [place] [address], [place] [address] June, [facility] [address] [id number] [address] [place] [address], [place] [address] Apr, [facility] [address] [id number] [address] [place] [id number] Mar, [facility] [address] [id number] [address] [place] [address], [place] [address] Mar, [facility] [address] [id number] [address] [place] [address], [place] [address] Mar, [facility] [address] [id number] [address] [place] [address], [place] [address] Mar, [facility] [address] [id number] [address] [place] [address], [place] [address] Mar, [facility] [address] [id number] [address] [place] [address], [place] [address] Feb, [facility] [address] [id number] [address] [place] [address], [place] [address] Feb, [facility] [address] [id number] [address] [place] [address], [place] [address] Feb, [facility] [address] [id number] [address] [place] [address], [place] [address] Feb, [facility] [address] [id number] [address] [place] [address], [place] [address] Jan, [facility] [address] [id number] [address] [place] [address], [place] [address] Jan, [facility] [address] [id number] [address] [place] [address], [place] [address] Dec, [facility] [address] [id number] [address] [place] [address], [place] [address] Dec, [facility] [address] [id number] [address] [place] [address], [place] [address] Dec, [facility] [address] [id number] [address] [place] [address], [place] [address] Dec, [facility] [address] [id number] [address] [place] [address] Oct, [facility] [address] [id number] [address] [place] [address], [place] [address] Aug, [facility] [address] [id number] [address] [place] [address], [place] [address] Jul, [facility] [address] [id number] [address] [place] [address], [place] [address] June, [facility] [address] [id number] [address] [place] [address], [place] [address] June, [facility] [address] [id number] [address] [place] [address], [place] [address] June, [facility] [address] [id number] [address] [place] [address], [place] [address] June, [facility] [address] [id number] [address] [place] [address], [place] [address] June, [facility] [address] [id number] [address] [place] [address], [place] [address] May, [facility] [address] [id number] [address] [place] [address], [place] [address] May, [facility] [address] [id number] [address] [place] [address], [place] [address] Apr, [facility] [address] [id number] [address] [place] [address], [place] [address] Apr, [facility] [address] [id number] [address] [place] [address], [place] [address] Mar, [facility] [address] [id number] [address] [place] [address], [place] [address] Feb, [facility] [address] [id number] [address] [place] [address], [place] [address] Nov, [facility] [address] [id number] [address] [place] [address], [place] [address] Nov, [facility] [address] [id number] [address] [place] [address], [place] [address] 13 Nov, 2010 [facility] [address] [id number] [address] [place] [address], [place] [address] 17 Apr, 2010 [facility] [address] [id number] [address] [place] [address], [place] [address] 07 Jan, 2010 [facility] [address] [id number] [address] [place] [address], [place] [address] 24 Dec, 2009 [facility] [address] [id number] [address] [place] [address], [place] [address] Dec, [facility] [address] [id number] [address] [place] [address], [place] [address] 29 Nov, 2009 [facility] [address] [id number] [address] [place] [address], [place] [address] June, [facility] [address] [id number] [address] [place] [address], [place] [address] 29 Jan, 2009 [facility] [address] [id number] [address] [place] [address], [place] [address] 28 Jan, 2009 [facility] [address] [id number] [address] [place] [address], [place] [address] 23 Jan, 2009 [facility] [address] [id number] [address] [place] [address], [place] [address] 22 Jan, 2009 [facility] [address] [id number] [address] [place] [address], [place] [address] 16 Jan, 2009 [facility] [address] [id number] [address] [place] [address], [place] [address] 15 Jan, 2009 [facility] [address] [id number] [address] [place] [address], [place] [address] 15 Jan, 2009 [facility] [address] [id number] [address] [place] [address], [place] [address] 11 Jan, 2009 [facility] [address] [id number] [address] [place] [address], [place] [address] 11 Jan, 2009 [facility] [address] [id number] [address] [place] [address] Jan, [facility] [address] [facility] [id number] [address] [place] [address] Jan, [facility] [address] [facility] [id number] [address] [place] [address] Jan, [facility] [address] [facility] [id number] [address] [place] [address] Dec, [facility] [address] [facility] [id number] [address] [place] [address] Dec, [facility] [address] [facility] [id number] [address] [place] [address] Dec, [facility] [address] [facility] [id number] [address] [place] [address] Dec, [facility] [address] [facility] [id number] [address] [place] [address] Nov, [facility] [address] [facility] [id number] [address] [place] [address] Oct, IMMUNIZATIONS No Known Immunizations SOCIAL HISTORY Never Assessed REASON FOR VISIT [facility] [place] PLAN OF CARE VITAL SIGNS MEDICATIONS Unknown [...] knee pseudogout s tatus post joint fluid analysis-[facility] 09/20/16 Hospitalization History kidneys--[facility] 11/2017
--- OUTSIDE RECORDS SUMMARY | 2019-07-04 10:20 | XMS REPORT ---
Author Author Charles Perez Doctor Organization [facility] Address Unknown Phone Unavailable Care Team Providers Care Warehouse Logistics Coordinator Name Role Phone Migration, Doctor Unavailable Unavailable PROBLEMS Type Condition ICD9-CM Code FEA29-LS Code Onset Dates Condition S tatus SNOMED Code Problem Hypertriglyceridemia E78.1 Active 664594156 Problem Coronary atherosclerosis of unspecified type of vessel, [place] or graft I25.10 Active 776061216 Problem Gastroesophageal reflux disease, esophagitis pre sence not specified K21.9 Active 532248468 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 5 Active 173996037 Problem End stage kidney disease N18.6 Activ e 29419515 Problem Gout of left knee due to renal impairment, unspe cified chronicity M10.362 Active 117665899 Problem Type 2 diabetes mellitus with hyperglycemia E11.65 Active [id number] Problem Mood disorder F39 Active 162285 05 Problem Delayed gastric emptying K30 Activ e 368457276 Problem Kidney stone N20.0 Active 7814533 7 Problem Proteinuria R80.9 Active 54154683 Problem Sinusitis J32.9 Active 49683510 ALLERGIES No Information ENCOUNTERS Encounter Location Date Diagnosis [facility] [address] [facility] [id number] [address] [place] [address] May, [facility] [address] [facility] [id number] [address] [place] [address] May, Essential hypertension I10 [facility] [address] [facility] [id number] [address] [place] [address] Apr, [facility] [address] [facility] [id number] [address] Apr, Type 2 diabetes mellitus wit h hyperglycemia E11.65 and Essential hypertension I10 [place] [address] [address] Apr, [facility] [address] [address] Apr, Type 2 diabetes mellitus wit h hyperglycemia E11.65 [facility] [address] [address] Apr, [place] [address] [address] Mar, Type 2 diabetes mellitus wit h hyperglycemia E11.65 [place] [address] [address] Mar, Type 2 diabetes mellitus wit h diabetic nephropathy E11.21 ; End stage kidney disease N18.6 ; Callus L84 and Onychomycosis B35.1 [place] [address] [address] Feb, [facility] [address] [address] Feb, Sinusitis J32.9 ; Nausea R11 .0 and Otalgia H92.09 [place] [address] [address] Jan, [facility] [address] [address] Jan, [place] [address] [address] Jan, Essential hypertension I10 ; Gout, unspecified M10.9 ; Coronary atherosclerosis of unspecified type of vessel, [place] or graft I25.10 ; Mixed hyperlipidemia E78.2 and Type 2 diabetes mellitus with hyperglycemia E11.65 [place] [address] [place] [address] [place] [address] Dec, Chronic kidney disease, stag e 3 N18.3 ; Proteinuria R80.9 ; Diabetes mellitus E11.9 ; Acute kidney failure, unspecified N17.9 and Mixed hyperlipidemia E78.2 [facility] [address] [place] [id number] [address] [place] [address] 16 Dec, 2017 Chronic kidney disease, stag e 3 N18.3 ; Essential hypertension I10 ; Proteinuria R80.9 ; Diabetes mellitus E11.9 ; Kidney stone N20.0 ; Acute kidney failure, unspecified N17.9 ; Edema R60.9 and Mixed hyperlipidemia E78.2 [place] [address] [address] Dec, Type 2 diabetes mellitus wit h hyperglycemia E11.65 [place] [address] [address] Dec, Chronic kidney disease, stag e 3 N18.3 [place] [address] [address] 06 Dec, 2017 Type 2 diabetes mellitus wit h hyperglycemia E11.65 [place] [address] [address] Dec, [place] [address] [address] Nov, Type 2 diabetes mellitus wit h hyperglycemia E11.65 [place] [address] [place] [id number] [address] [place] [address] Nov, [place] [address] [address] 17 Nov, 2017 Chronic kidney disease, stag e V (very severe) N18.5 ; Type 2 diabetes mellitus with hyperglycemia E11.65 ; Encounter for immunization Z23 and Delayed gastric emptying K30 [facility] [address] [place] [id number] [address] [place] [address] 10 Nov, 2017 [place] [address] [place] [id number] [address] [place] [address] Oct, Essential hypertension I10 ; Coronary atherosclerosis of unspecified type of vessel, [place] or graft I25.10 ; Type 2 diabetes mellitus with hyperglycemia E11.65 and Gout, unspecified M10.9 [place] [address] [facility] [id number] [address] [place] [address] Oct, Chronic kidney disease, stag e V (very severe) N18.5 [place] [address] [facility] [id number] [address] [place] [address] Oct, Mixed hyperlipidemia E78.2 [place] [address] [place] [id number] [place] [address] Sep, Type 2 diabetes mellitus wit h hyperglycemia E11.65 [place] [address] [place] [id number] [address] [place] [address] Sep, Mixed hyperlipidemia E78.2 [place] [address] [facility] [id number] [address] [place] [address] Sep, Chronic kidney disease, stag e V (very severe) N18.5 [place] [address] [place] [id number] [address] [place] [address] Sep, Type 2 diabetes mellitus wit h hyperglycemia E11.65 and Essential hypertension I10 [place] [address] [place] [id number] [address] [place] [address] Sep, Type 2 diabetes mellitus wit h hyperglycemia E11.65 [place] [address] [facility] [id number] [address] [place] [address] Aug, Gout, unspecified M10.9 ; Ga stroesophageal reflux disease, esophagitis presence not specified K21.9 ; Mood disorder F39 and Coronary atherosclerosis of unspecified type of vessel, [place] or graft I25.10 [place] [address] [facility] [id number] [address] [place] [address] Aug, [place] [address] [place] [id number] [address] [place] [address] June, Type 2 diabetes mellitus wit h hyperglycemia E11.65 [place] [id number] [facility] [id number] [address] [place] [address] May, Mood disorder F39 ; Gastroes ophageal reflux disease, esophagitis presence not specified K21.9 ; Gout, unspecified M10.9 ; Coronary atherosclerosis of unspecified type of vessel, [place] or graft I25.10 and Type 2 diabetes mellitus with hyperglycemia E11.65 [place] [address] [facility] [id number] [address] [place] [address] May, Type 2 diabetes mellitus wit h hyperglycemia E11.65 [place] [address] [place] [id number] [address] [place] [address] Apr, Diabetes E11.9 and Mood diso rder F39 [place] [address] [place] [id number] [address] [place] [id number] 15 Mar, 2017 Primary osteoarthritis of le ft knee M17.12 and Tear of lateral meniscus of left knee, unspecified tear type, unspecified whether old or current tear, initial encounter S83.282A [place] [address] [facility] [id number] [address] [place] [address] Feb, Mood disorder F39 [place] [address] [place] [id number] [address] [place] [address] Feb, Pseudogout M11.20 [facility] [address] [facility] [id number] [address] [place] [address] Jan, Other long goods drier (current) dr anna therapy Z79.899 [facility] [address] [facility] [id number] [address] [place] [address] Jan, [facility] [address] [facility] [id number] [address] [place] [address] Jan, Pseudogout M11.20 ; Type 2 d iabetes mellitus with hyperglycemia E11.65 and Other long goods drier (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 [facility] [address] [place] [id number] [address] [place] [address] 18 Jan, 2017 Gout of left knee due to eloisa al impairment, unspecified chronicity M10.362 ; Type 2 diabetes mellitus with diabetic nephropathy E11.21 ; Synovial cyst of popliteal space [Mejia], left knee M71.22 and Low back pain M54.5 [facility] [address] [place] [id number] [address] [place] [address] Dec, Pseudogout M11.20 [place] [address] [place] [id number] [place] [address] Dec, [place] [address] [address] 13 Dec, 2016 Type 2 diabetes mellitus wit h diabetic nephropathy E11.21 and Right anterior knee pain M25.561 [place] [address] [address] Nov, Pseudogout M11.20 [place] [address] [place] [id number] [place] [address] Nov, Pseudogout M11.20 ; Chronic kidney disease, stage 3 N18.3 ; Mixed hyperlipidemia E78.2 ; Gout, unspecified M10.9 ; Coronary atherosclerosis of unspecified type of vessel, [place] or graft I25.10 ; Mood disorder F39 and Gastroesophageal reflux disease, esophagitis presence not specified K21.9 [place] [address] [place] [id number] [address] [place] [address] Nov, [place] [address] [place] [id number] [address] [place] [address] Oct, Pseudogout M11.20 [place] [address] [place] [id number] [place] [address] Sep, Pseudogout M11.20 [place] [address] [place] [id number] [address] [place] [address] Sep, Pseudogout M11.20 [place] [address] [id number] [place] [address], [place] [address] Sep, [facility] [address] [place] [id number] [place] [id number] Aug, [facility] [address] [address] Aug, Diabetes E11.9 ; Chronic kid tahir disease, stage 3 N18.3 ; Hyperuricemia E79.0 ; Mixed hyperlipidemia E78.2 ; Gastroesophageal reflux disease, esophagitis presence not specified K21.9 ; Gout, unspecified M10.9 ; Coronary atherosclerosis of unspecified type of vessel, [place] or graft I25.10 and Mood disorder F39 [facility] [address] [address] June, [facility] [address] [address] June, [facility] [address] [address] June, [facility] [address] [address] May, Chronic renal failure, stage 3 (moderate) N18.3 [facility] [address] [address] May, Diabetes E11.9 [facility] [address] [address] May, [facility] [address] [address] Apr, [facility] [address] [address] Apr, [facility] [address] [address] Apr, Cellulitis of right lower ex tremity L03.115 and Diabetes E11.9 [facility] [address] [address] Apr, Type 2 diabetes mellitus wit h hyperglycemia E11.65 [place] [address] [id number] [address] [place] [address] Mar, Cellulitis of right lower ex tremity L03.115 and Low back pain M54.5 [facility] [address] [id number] [address] [place] [address] Mar, [place] [address] [id number] [address] [place] [address] Mar, Cellulitis of right lower ex tremity L03.115 [place] [address] [id number] [address] [place] [address] Mar, Cellulitis of right lower ex tremity L03.115 [place] [address] [id number] [address] [place] [address] Feb, Cellulitis of right lower ex tremity L03.115 [place] [address] [id number] [address] [place] [address] Feb, Cellulitis of right lower ex tremity L03.115 [place] [address] [id number] [address] [place] [address] Feb, [place] [address] [facility] [id number] [address] [place] [address] Feb, Leukocytosis, unspecified ty pe D72.829 ; Chronic renal failure, stage 3 (moderate) N18.3 and Type 2 diabetes mellitus with hyperglycemia E11.65 [place] [address] [id number] [address] [place] [address] Feb, Leukocytosis, unspecified ty pe D72.829 [place] [address] [facility] [id number] [address] [place] [address] Feb, [place] [address] [facility] [id number] [address] [place] [address] Feb, Cellulitis of right lower ex tremity L03.115 ; Thrush B37.0 ; Gout of left knee due to renal impairment, unspecified chronicity M10.362 and Chronic renal failure, stage 3 (moderate) N18.3 [place] [address] [id number] [address] [place] [address] Feb, [place] [address] [id number] [address] [place] [address] Feb, Right foot infection L08.9 ; Type 2 diabetes mellitus with hyperglycemia E11.65 ; Arthralgia of left knee M25.562 ; Chronic kidney disease, stage 3 N18.3 and Diabetes E11.9 [place] [address] [id number] [address] [place] [address] Feb, [place] [address] [id number] [address] [place] [address] Feb, Diabetes E11.9 ; Arthralgia of left knee M25.562 and Thrush B37.0 [place] [address] [id number] [address] [place] [address] Jan, [place] [address] [id number] [address] [place] [address] Jan, Type 2 diabetes mellitus wit h hyperglycemia E11.65 ; Chronic renal failure, stage 3 (moderate) N18.3 and Leukocytosis, unspecified type D72.829 [place] [address] [id number] [address] [place] [address] Jan, Type 2 diabetes mellitus wit h hyperglycemia E11.65 [place] [address] [id number] [address] [place] [address] Dec, Gout of left knee due to eloisa al impairment, unspecified chronicity M10.362 [place] [address] [id number] [address] [place] [address] Dec, Gout of left knee due to eloisa al impairment, unspecified chronicity M10.362 and Diabetes E11.9 [place] [address] [place] [id number] [address] [place] [address] 14 Dec, 2015 [facility] [address] [place] [id number] [address] [place] [address] Dec, [facility] [address] [place] [id number] [address] [place] [address] Dec, [facility] [address] [address] 09 Dec, 2015 Chronic kidney disease, stag e 3 N18.3 ; Type 2 diabetes mellitus with diabetic nephropathy E11.21 ; Type 2 diabetes mellitus with hyperglycemia E11.65 and longterm 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 [facility] [address] [address] 05 Dec, 2015 Leukocytosis, unspecified ty pe D72.829 ; Chronic renal failure, stage 3 (moderate) N18.3 and Nausea R11.0 [place] [address] [address] Nov, [facility] [address] [address] Jul, [place] [address] [address] Jul, Diabetes E11.9 ; Low back pa in M54.5 and Other chronic pain G89.29 [place] [address] [address] June, [place] [address] [place] [id number] [address] [place] [address] June, [place] [address] [address] Jan, Viral illness B34.9 [place] [address] [place] [id number] [address] [place] [address] 08 Jan, 2015 Type 2 diabetes mellitus wit h hyperglycemia E11.65 ; Pain in right foot M79.671 and Localized edema R60.0 [facility] [address] [id number] [address] [place] [address] Jan, [facility] [address] [id number] [address] [place] [address] Dec, Right foot pain M79.671 ; In somnia, unspecified type G47.00 and Diabetes E11.9 [facility] [address] [id number] [address] [place] [address] Dec, Pain in right foot M79.671 [facility] [address] [id number] [address] [place] [address] Nov, [facility] [address] [id number] [address] [place] [address] Sep, [facility] [address] [id number] [address] [place] [address] Sep, Diabetes mellitus, type II 2 50.00 [facility] [address] [id number] [address] [place] [address] May, [facility] [address] [id number] [address] [place] [address] May, [facility] [address] [id number] [address] [place] [address] Apr, [facility] [address] [id number] [address] [place] [address] Apr, [facility] [address] [id number] [address] [place] [address] Apr, [facility] [address] [id number] [address] [place] [address] 16 Apr, 2014 [facility] [address] [facility] [id number] [address] [place] [address] Apr, [facility] [address] [id number] [address] [place] [address] Apr, [facility] [address] [id number] [address] [place] [address], [place] [address] 05 Apr, 2014 [facility] [address] [id number] [address] [place] [address], [place] [address] 05 Apr, 2014 [facility] [address] [id number] [address] [place] [address], [place] [address] 18 Jan, 2014 [facility] [address] [id number] [address] [place] [address], [place] [address] 18 Jan, 2014 [facility] [address] [id number] [address] [place] [address], [place] [address] Jan, [facility] [address] [id number] [address] [place] [address], [place] [address] Jan, [facility] [address] [id number] [address] [place] [address], [place] [address] Dec, [facility] [address] [id number] [address] [place] [address], [place] [address] Dec, [facility] [address] [id number] [address] [place] [address], [place] [address] Nov, [facility] [address] [id number] [address] [place] [address], [place] [address] Nov, [facility] [address] [id number] [address] [place] [address], [place] [address] Oct, [facility] [address] [id number] [address] [place] [address], [place] [address] Oct, [facility] [address] [id number] [address] [place] [address], [place] [address] Oct, [facility] [address] [id number] [address] [place] [address], [place] [address] Oct, [facility] [address] [id number] [address] [place] [address], [place] [address] Sep, [facility] [address] [id number] [address] [place] [address], [place] [address] Sep, [facility] [address] [id number] [facility] [place] [address] Sep, [facility] [address] [id number] [address] [place] [address], [place] [address] Sep, [facility] [address] [id number] [address] [place] [address], [place] [address] Sep, [facility] [address] [id number] [address] [place] [address], [place] [address] Sep, [facility] [address] [id number] [address] [place] [address], [place] [address] Sep, [facility] [address] [id number] [address] [place] [address], [place] [address] Sep, [facility] [address] [id number] [address] [place] [address], [place] [address] Sep, [facility] [address] [id number] [address] [place] [address], [place] [address] Sep, [facility] [address] [id number] [address] [place] [address], [place] [address] Sep, [facility] [address] [id number] [address] [place] [address], [place] [address] Sep, [facility] [address] [id number] [address] [place] [address], [place] [address] Aug, [facility] [address] [id number] [address] [place] [address], [place] [address] Aug, [facility] [address] [id number] [address] [place] [address], [place] [address] Aug, [facility] [address] [id number] [address] [place] [address], [place] [address] Aug, [facility] [address] [id number] [address] [place] [address], [place] [address] June, [facility] [address] [id number] [facility] [place] [address] 24 May, 2013 [facility] [address] [id number] [address] [place] [address], [place] [address] 24 May, 2013 [facility] [address] [id number] [address] [place] [address], [place] [address] 21 May, 2013 [facility] [address] [id number] [address] [place] [address], [place] [address] 18 May, 2013 [facility] [address] [id number] [address] [place] [address], [place] [id number] 17 May, 2013 [facility] [address] [id number] [address] [place] [address], [place] [address] 17 May, 2013 [facility] [address] [id number] [address] [place] [address], [place] [id number] 16 May, 2013 [facility] [address] [id number] [address] [place] [address], [place] [id number] 16 May, 2013 [facility] [address] [id number] [address] [place] [address], [place] [id number] 14 May, 2013 [facility] [address] [id number] [address] [place] [address], [place] [id number] 14 May, 2013 [facility] [address] [id number] [address] [place] [address], [place] [id number] 14 May, 2013 [facility] [address] [id number] [address] [place] [address], [place] [id number] 14 May, 2013 [facility] [address] [id number] [address] [place] [address], [place] [id number] Apr, [facility] [address] [id number] [address] [place] [address], [place] [id number] Apr, [facility] [address] [id number] [address] [place] [address], [place] [id number] Mar, [facility] [address] [id number] [address] [place] [address], [place] [id number] Mar, [facility] [address] [id number] [address] [place] [address], [place] [id number] Dec, [facility] [address] [id number] [address] [place] [address], [place] [id number] Dec, [facility] [address] [id number] [address] [place] [address], [place] [id number] Dec, [facility] [address] [id number] [address] [place] [address], [place] [id number] Dec, [facility] [address] [id number] [address] [place] [address], [place] [id number] Nov, [facility] [address] [id number] [address] [place] [address], [place] [id number] Nov, [facility] [address] [id number] [address] [place] [address], [place] [id number] Oct, [facility] [address] [id number] [address] [place] [address], [place] [id number] Oct, [facility] [address] [id number] [address] [place] [place] [address], [place] [id number] Aug, [facility] [address] [id number] [address] [place] [address], [place] [id number] Aug, [facility] [address] [id number] [address] [place] [address], [place] [id number] Aug, [facility] [address] [id number] [address] [place] [id number] Jul, [facility] [address] [id number] [address] [place] [address], [place] [phone] June, [facility] [address] [id number] [address] [place] [address], [place] [phone] June, [facility] [address] [id number] [address] [place] [address], [place] [id number] Apr, [facility] [address] [id number] [address] [place] [id number] Mar, [facility] [address] [id number] [address] [place] [address], [place] [phone] Mar, [facility] [address] [id number] [address] [place] [address], [place] [phone] Mar, [facility] [address] [id number] [address] [place] [address], [place] [id number] Mar, [facility] [address] [id number] [address] [place] [address], [place] [id number] Mar, [facility] [address] [id number] [address] [place] [address], [place] [phone] Feb, [facility] [address] [id number] [address] [place] [address], [place] [id number] Feb, [facility] [address] [id number] [address] [place] [address], [place] [id number] Feb, [facility] [address] [id number] [address] [place] [address], [place] [id number] Feb, [facility] [address] [id number] [address] [place] [address], [place] [phone] Jan, [facility] [address] [id number] [address] [place] [address], [place] [phone] Jan, [facility] [address] [id number] [address] [place] [address], [place] [phone] Dec, [facility] [address] [id number] [address] [place] [address], [place] [phone] Dec, [facility] [address] [id number] [address] [place] [address], [place] [phone] Dec, [facility] [address] [id number] [address] [place] [address], [place] [phone] Dec, [facility] [address] [id number] [address] [place] [id number] Oct, [facility] [address] [id number] [address] [place] [address], [place] [id number] Aug, [facility] [address] [id number] [address] [place] [address], [place] [phone] Jul, [facility] [address] [id number] [address] [place] [address], [place] [phone] June, [facility] [address] [id number] [address] [place] [address], [place] [phone] June, [facility] [address] [id number] [address] [place] [address], [place] [phone] June, [facility] [address] [id number] [address] [place] [address], [place] [id number] June, [facility] [address] [id number] [address] [place] [address], [place] [phone] June, [facility] [address] [id number] [address] [place] [address], [place] [phone] May, [facility] [address] [id number] [address] [place] [address], [place] [phone] May, [facility] [address] [id number] [address] [place] [address], [place] [phone] Apr, [facility] [address] [id number] [address] [place] [address], [place] [phone] Apr, [facility] [address] [id number] [address] [place] [address], [place] [id number] Mar, [facility] [address] [id number] [address] [place] [address], [place] [phone] Feb, [facility] [address] [id number] [address] [place] [address], [place] [phone] Nov, [facility] [address] [id number] [address] [place] [address], [place] [id number] Nov, [facility] [address] [id number] [address] [place] [address], [place] [id number] 13 Nov, 2010 [facility] [address] [id number] [address] [place] [address], [place] [id number] 17 Apr, 2010 [facility] [address] [id number] [address] [place] [address], [place] [id number] 07 Jan, 2010 [facility] [address] [id number] [address] [place] [address], [place] [id number] 24 Dec, 2009 [facility] [address] [id number] [address] [place] [address], [place] [id number] Dec, [facility] [address] [id number] [address] [place] [address], [place] [id number] 29 Nov, 2009 [facility] [address] [id number] [address] [place] [address], [place] [id number] June, [facility] [address] [id number] [address] [place] [address], [place] [id number] 29 Jan, 2009 [facility] [address] [id number] [address] [place] [address], [place] [id number] 28 Jan, 2009 [facility] [address] [id number] [address] [place] [address], [place] [phone] 23 Jan, 2009 [facility] [address] [id number] [address] [place] [address], [place] [id number] 22 Jan, 2009 [facility] [address] [id number] [address] [place] [address], [place] [id number] 16 Jan, 2009 [facility] [address] [id number] [address] [place] [address], [place] [id number] 15 Jan, 2009 [facility] [address] [id number] [address] [place] [address], [place] [id number] 15 Jan, 2009 [facility] [address] [id number] [address] [place] [address], [place] [phone] 11 Jan, 2009 [facility] [address] [id number] [address] [place] [address], [place] [id number] 11 Jan, 2009 [facility] [address] [id number] [address] [place] [id number] Jan, [facility] [address] [facility] [id number] [address] [place] [id number] Jan, [facility] [address] [facility] [id number] [address] [place] [id number] Jan, [facility] [address] [facility] [id number] [address] [place] [id number] Dec, [facility] [address] [facility] [id number] [address] [place] [id number] Dec, [facility] [address] [facility] [id number] [address] [place] [id number] Dec, [facility] [address] [facility] [id number] [address] [place] [id number] Dec, [facility] [address] [facility] [id number] [address] [place] [id number] Nov, [facility] [address] [facility] [id number] [address] [place] [id number] Oct, IMMUNIZATIONS No Known Immunizations SOCIAL HISTORY Never Assessed REASON FOR VISIT [facility] PLAN OF CARE VITAL SIGNS [...] pseudogout s tatus post joint fluid analysis-[facility] 09[facility]20/16 Hospitalization History kidneys--[facility] 11/2017
--- OUTSIDE RECORDS SUMMARY | 2019-07-04 10:24 | XMS REPORT ---
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 5 Active 808246988 Problem End stage kidney disease N18.6 Activ e 39183527 Problem Gout of left knee due to renal impairment, unspe cified chronicity M10.362 Active 098722057 Problem Type 2 diabetes mellitus with hyperglycemia E11.65 Active 938872927282839 Problem Mood disorder F39 Active 502348 05 Problem Delayed gastric emptying K30 Activ e 525852909 Problem Kidney stone N20.0 Active 0861088 7 Problem Proteinuria R80.9 Active 14086171 Problem Sinusitis J32.9 Active 41079696 ALLERGIES No Information ENCOUNTERS Encounter Location Date Diagnosis [facility], [place] [address] [facility] [id number] [address] [place] [address] Jul, Type 2 diabetes mellitus wit h hyperglycemia E11.65 [facility], [place] [address] [facility] [id number] [address] [place] [address] Jul, Type 2 diabetes mellitus wit h hyperglycemia E11.65 [facility], [place] [address] [facility] [id number] [address] [place] [address] Jul, Type 2 diabetes mellitus wit h hyperglycemia E11.65 [facility], [place] [address] [facility] [id number] [address] [place] [address] June, Type 2 diabetes mellitus wit h hyperglycemia E11.65 ; End stage kidney disease N18.6 and Callus L84 [facility], [place] [address] [facility] [id number] [address] [place] [address] May, [facility], [place] [address] [facility] [id number] [address] [place] [address] May, Essential hypertension I10 [facility], [place] [address] [facility] [id number] [address] [place] [address] Apr, [facility], [place] [address] [facility] [id number] [address] [place] [address] Apr, Type 2 diabetes mellitus wit h hyperglycemia E11.65 and Essential hypertension I10 [facility], [place] [address] [facility] [id number] [address] [place] [address] Apr, [facility], [place] [address] [facility] [id number] [address] [place] [address] Apr, Type 2 diabetes mellitus wit h hyperglycemia E11.65 [facility], [place] [address] [facility] [id number] [address] [place] [address] Apr, [facility], [place] [address] [facility] [id number] [address] [place] [address] Mar, Type 2 diabetes mellitus wit h hyperglycemia E11.65 [facility], [place] [address] [facility] [id number] [address] [place] [address] Mar, Type 2 diabetes mellitus wit h diabetic nephropathy E11.21 ; End stage kidney disease N18.6 ; Callus L84 and Onychomycosis B35.1 [facility], [place] [address] [facility] [id number] [address] [place] [address] Feb, [facility] [address] [facility] [id number] [address] [place] [address] Feb, Sinusitis J32.9 ; Nausea R11 .0 and Otalgia H92.09 [place] [address] [address] Jan, [place] [address] [address] Jan, [place] [address] [address] Jan, Essential hypertension I10 ; Gout, unspecified M10.9 ; Coronary atherosclerosis of unspecified type of vessel, port gamble or graft I25.10 ; Mixed hyperlipidemia E78.2 and Type 2 diabetes mellitus with hyperglycemia E11.65 [place] [address] [address] Dec, Chronic kidney disease, stag e 3 N18.3 ; Proteinuria R80.9 ; Diabetes mellitus E11.9 ; Acute kidney failure, unspecified N17.9 and Mixed hyperlipidemia E78.[address] [address] Dec, Chronic kidney disease, stag e 3 N18.3 ; Essential hypertension I10 ; Proteinuria R80.9 ; Diabetes mellitus E11.9 ; Kidney stone N20.0 ; Acute kidney failure, unspecified N17.9 ; Edema R60.9 and Mixed hyperlipidemia E78.[address] [address] Dec, Type 2 diabetes mellitus wit h hyperglycemia E11.65 [place] [address] [address] Dec, Chronic kidney disease, stag e [address] [address] Dec, Type 2 diabetes mellitus wit h hyperglycemia E11.65 [place] [address] [address] Dec, [place] [address] [facility] [id number] [address] [place] [address] Nov, Type 2 diabetes mellitus wit h hyperglycemia E11.65 [place] [address] [facility] [id number] [address] [place] [address] Nov, [place] [address] [facility] [id number] [address] [place] [address] Nov, Chronic kidney disease, stag e V (very severe) N18.5 ; Type 2 diabetes mellitus with hyperglycemia E11.65 ; Encounter for immunization Z23 and Delayed gastric emptying K30 [place] [address] [facility] [id number] [address] [place] [address] Nov, [place] [address] [facility] [id number] [address] [place] [address] Oct, Essential hypertension I10 ; Coronary atherosclerosis of unspecified type of vessel, port gamble or graft I25.10 ; Type 2 diabetes mellitus with hyperglycemia E11.65 and Gout, unspecified M10.9 [place] [address] [place] [id number] [address] [place] [address] 07 Oct, 2017 Chronic kidney disease, stag e V (very severe) N18.5 [place] [address] [facility] [id number] [address] [place] [address] Oct, Mixed hyperlipidemia E78.2 [place] [address] [facility] [id number] [address] [place] [address] Sep, Type 2 diabetes mellitus wit h hyperglycemia E11.65 [place] [address] [facility] [id number] [address] [place] [address] Sep, Mixed hyperlipidemia E78.2 [place] [address] [facility] [id number] [address] [place] [address] Sep, Chronic kidney disease, stag e V (very severe) N18.5 [place] [address] [facility] [id number] [address] [place] [address] Sep, Type 2 diabetes mellitus wit h hyperglycemia E11.65 and Essential hypertension I10 [place] [address] [facility] [id number] [address] [place] [address] Sep, Type 2 diabetes mellitus wit h hyperglycemia E11.65 [place] [address] [facility] [id number] [address] [place] [address] 16 Aug, 2017 Gout, unspecified M10.9 ; Ga stroesophageal reflux disease, esophagitis presence not specified K21.9 ; Mood disorder F39 and Coronary atherosclerosis of unspecified type of vessel, port gamble or graft I25.10 [place] [address] [id number] [address] [place] [address] Aug, [place] [address] [facility] [id number] [place] [address] June, Type 2 diabetes mellitus wit h hyperglycemia E11.65 [place] [address] [facility] [id number] [address] [place] [address] May, Mood disorder F39 ; Gastroes ophageal reflux disease, esophagitis presence not specified K21.9 ; Gout, unspecified M10.9 ; Coronary atherosclerosis of unspecified type of vessel, port gamble or graft I25.10 and Type 2 diabetes mellitus with hyperglycemia E11.65 [place] [address] [facility] [id number] [address] [place] [address] May, Type 2 diabetes mellitus wit h hyperglycemia E11.65 [place] [address] [facility] [id number] [address] [place] [address] Apr, Diabetes E11.9 and Mood diso rder F39 [place] [address] [facility] [id number] [address] [place] [address] Mar, Primary osteoarthritis of le ft knee M17.12 and Tear of lateral meniscus of left knee, unspecified tear type, unspecified whether old or current tear, initial encounter S83.282A [place] [address] [facility] [id number] [address] [place] [address] Feb, Mood disorder F39 [place] [address] [facility] [id number] [address] [place] [address] Feb, Pseudogout M11.20 [facility], [place] [address] [facility] [id number] [address] [place] [address] Jan, Other penitentiary (current) dr anna therapy Z79.899 [facility] [address] [facility] [id number] [address] [place] [address] Jan, [facility], [place] [address] [facility] [id number] [address] [place] [address] Jan, Pseudogout M11.20 ; Type 2 d iabetes mellitus with hyperglycemia E11.65 and 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 [facility], [place] [address] [facility] [id number] [address] [place] [address] Jan, Gout of left knee due to eloisa al impairment, unspecified chronicity M10.362 ; Type 2 diabetes mellitus with diabetic nephropathy E11.21 ; Synovial cyst of popliteal space [Mejia], left knee M71.22 and Low back pain M54.5 [facility], [place] [address] [place] [id number] [address] [place] [address] Dec, Pseudogout M11.20 [facility], [place] [address] [place] [id number] [address] [place] [address] 14 Dec, 2016 [place] [address] [place] [id number] [place] [address] 13 Dec, 2016 Type 2 diabetes mellitus wit h diabetic nephropathy E11.21 and Right anterior knee pain M25.561 [facility], [place] [address] [facility] [id number] [address] [place] [address] Nov, Pseudogout M11.20 [facility], [place] [address] [facility] [id number] [address] [place] [address] 19 Nov, 2016 Pseudogout M11.20 ; Chronic kidney disease, stage 3 N18.3 ; Mixed hyperlipidemia E78.2 ; Gout, unspecified M10.9 ; Coronary atherosclerosis of unspecified type of vessel, port gamble or graft I25.10 ; Mood disorder F39 and Gastroesophageal reflux disease, esophagitis presence not specified K21.9 [facility], [place] [address] [place] [id number] [address] [place] [address] Nov, [facility], [place] [address] [place] [id number] [address] [place] [address] Oct, Pseudogout M11.20 [facility], [place] [address] [place] [id number] [address] [place] [address] Sep, Pseudogout M11.20 [facility], [place] [address] [place] [id number] [address] [place] [address] Sep, Pseudogout M11.20 [facility], [place] [address] [place] [id number] [place] [address] Sep, [facility] [address] [place] [id number] [place] [id number] Aug, [facility], [place] [address] [place] [id number] [place] [address] Aug, Diabetes E11.9 ; Chronic kid tahir disease, stage 3 N18.3 ; Hyperuricemia E79.0 ; Mixed hyperlipidemia E78.2 ; Gastroesophageal reflux disease, esophagitis presence not specified K21.9 ; Gout, unspecified M10.9 ; Coronary atherosclerosis of unspecified type of vessel, port gamble or graft I25.10 and Mood disorder F39 [facility], [place] [address] [place] [id number] [address] [place] [address] June, [facility], [place] [address] [place] [id number] [place] [address] June, [facility], [place] [address] [address] June, [facility], [place] [address] [place] [id number] [address] [place] [address] May, Chronic renal failure, stage 3 (moderate) N18.3 [facility], [place] [address] [place] [id number] [place] [address] May, Diabetes E11.9 [facility], [place] [address] [id number] [address] [place] [address] May, [facility], [place] [address] [facility] [id number] [address] [place] [address] Apr, [facility], [place] [address] [id number] [address] [place] [address] Apr, [facility], [place] [address] [facility] [id number] [address] [place] [address] Apr, Cellulitis of right lower ex tremity L03.115 and Diabetes E11.9 [facility], [place] [address] [id number] [address] [place] [address] Apr, Type 2 diabetes mellitus wit h hyperglycemia E11.65 [facility], [place] [address] [facility] [id number] [address] [place] [address] Mar, Cellulitis of right lower ex tremity L03.115 and Low back pain M54.5 [facility], [place] [address] [id number] [address] [place] [address] Mar, [facility], [place] [address] [id number] [address] [place] [address] Mar, Cellulitis of right lower ex tremity L03.115 [facility], [place] [address] [facility] [id number] [address] [place] [address] Mar, Cellulitis of right lower ex tremity L03.115 [facility], [place] [address] [id number] [address] [place] [address] Feb, Cellulitis of right lower ex tremity L03.115 [facility], [place] [address] [facility] [id number] [address] [place] [address] Feb, Cellulitis of right lower ex tremity L03.115 [facility], [place] [address] [facility] [id number] [address] [place] [address] Feb, [place] [address] [id number] [address] [place] [address] Feb, Leukocytosis, unspecified ty pe D72.829 ; Chronic renal failure, stage 3 (moderate) N18.3 and Type 2 diabetes mellitus with hyperglycemia E11.65 [place] [address] [id number] [address] [place] [address] Feb, Leukocytosis, unspecified ty pe D72.829 [place] [address] [id number] [address] [place] [address] Feb, [place] [address] [id number] [address] [place] [address] Feb, Cellulitis of right lower ex tremity L03.115 ; Thrush B37.0 ; Gout of left knee due to renal impairment, unspecified chronicity M10.362 and Chronic renal failure, stage 3 (moderate) N18.3 [place] [address] [id number] [address] [place] [address] Feb, [place] [address] [id number] [address] [place] [address] Feb, Right foot infection L08.9 ; Type 2 diabetes mellitus with hyperglycemia E11.65 ; Arthralgia of left knee M25.562 ; Chronic kidney disease, stage 3 N18.3 and Diabetes E11.9 [place] [address] [id number] [address] [place] [address] Feb, [place] [address] [id number] [address] [place] [address] Feb, Diabetes E11.9 ; Arthralgia of left knee M25.562 and Thrush B37.0 [place] [address] [id number] [address] [place] [address] Jan, [place] [address] [id number] [address] [place] [address] Jan, Type 2 diabetes mellitus wit h hyperglycemia E11.65 ; Chronic renal failure, stage 3 (moderate) N18.3 and Leukocytosis, unspecified type D72.829 [place] [address] [place] [id number] [address] [place] [address] Jan, Type 2 diabetes mellitus wit h hyperglycemia E11.65 [place] [address] [place] [id number] [address] [place] [address] 30 Dec, 2015 Gout of left knee due to eloisa al impairment, unspecified chronicity M10.362 [place] [address] [address] Dec, Gout of left knee due to eloisa al impairment, unspecified chronicity M10.362 and Diabetes E11.9 [place] [address] [address] Dec, [place] [address] [address] Dec, [facility] [address] [address] Dec, [place] [address] [address] Dec, Chronic kidney disease, stag e 3 N18.3 ; Type 2 diabetes mellitus with diabetic nephropathy E11.21 ; Type 2 diabetes mellitus with hyperglycemia E11.65 and 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 [facility] [address] [place] [id number] [place] [address] Dec, Leukocytosis, unspecified ty pe D72.829 ; Chronic renal failure, stage 3 (moderate) N18.3 and Nausea R11.0 [place] [address] [address] Nov, [place] [address] [place] [id number] [place] [address] Jul, [place] [address] [address] Jul, Diabetes E11.9 ; Low back pa in M54.5 and Other chronic pain G89.29 [facility], [place] [address] [facility] [id number] [address] [place] [address] June, [facility], [place] [address] [id number] [address] [place] [address] June, [facility], [place] [address] [facility] [id number] [address] [place] [address] Jan, Viral illness B34.9 [facility], [place] [address] [facility] [id number] [address] [place] [address] Jan, Type 2 diabetes mellitus wit h hyperglycemia E11.65 ; Pain in right foot M79.671 and Localized edema R60.0 [facility], [place] [address] [facility] [id number] [address] [place] [address] Jan, [facility], [place] [address] [facility] [id number] [address] [place] [address] Dec, Right foot pain M79.671 ; In somnia, unspecified type G47.00 and Diabetes E11.9 [facility], [place] [address] [facility] [id number] [address] [place] [address] Dec, Pain in right foot M79.671 [facility], [place] [address] [facility] [id number] [address] [place] [address] Nov, [facility], [place] [address] [facility] [id number] [address] [place] [address] Sep, [facility], [place] [address] [facility] [id number] [address] [place] [address] Sep, Diabetes mellitus, type II 2 50.00 [facility], [place] [address] [facility] [id number] [address] [place] [address] 14 May, 2014 [facility], [place] [address] [facility] [id number] [address] [place] [address] May, [facility], [place] [address] [id number] [address] [place] [address] [place] [address] 19 Apr, 2014 [facility] [address] [id number] [address] [place] [address], [place] [address] 19 Apr, 2014 [facility] [address] [id number] [address] [place] [address], [place] [address] 16 Apr, 2014 [facility] [address] [id number] [address] [place] [address], [place] [address] 16 Apr, 2014 [facility] [address] [id number] [address] [place] [address], [place] [address] 12 Apr, 2014 [facility] [address] [id number] [address] [place] [address], [place] [address] 12 Apr, 2014 [facility] [address] [id number] [address] [place] [address], [place] [address] 05 Apr, 2014 [facility] [address] [id number] [address] [place] [address], [place] [address] 05 Apr, 2014 [facility] [address] [id number] [address] [place] [address], [place] [address] 18 Jan, 2014 [facility] [address] [id number] [address] [place] [address], [place] [address] 18 Jan, 2014 [facility] [address] [id number] [address] [place] [address], [place] [address] 15 Jan, 2014 [facility] [address] [id number] [address] [place] [address], [place] [address] 15 Jan, 2014 [facility] [address] [id number] [address] [place] [address], [place] [address] 10 Dec, 2013 [facility] [address] [id number] [address] [place] [address], [place] [address] 10 Dec, 2013 [facility] [address] [id number] [address] [place] [address], [place] [address] 13 Nov, 2013 [facility] [address] [id number] [address] [place] [address], [place] [address] 13 Nov, 2013 [facility] [address] [id number] [facility] [place] [address] Oct, 2013 [facility] [address] [id number] [facility] [place] [address] 26 Oct, 2013 [facility] [address] [id number] [facility] [place] [address] 05 Oct, 2013 [facility] [address] [id number] [address] [place] [address], [place] [address] 05 Oct, 2013 [facility] [address] [id number] [address] [place] [address], [place] [address] Sep, [facility] [address] [id number] [address] [place] [address], [place] [address] Sep, [facility] [address] [id number] [address] [place] [address], [place] [address] Sep, [facility] [address] [id number] [address] [place] [address], [place] [address] Sep, [facility] [address] [id number] [address] [place] [address], [place] [address] Sep, [facility] [address] [id number] [address] [place] [address], [place] [address] Sep, [facility] [address] [id number] [address] [place] [address], [place] [address] Sep, [facility] [address] [id number] [address] [place] [address], [place] [address] Sep, [facility] [address] [id number] [address] [place] [address], [place] [address] Sep, [facility] [address] [id number] [address] [place] [address], [place] [address] Sep, [facility] [address] [id number] [address] [place] [address], [place] [address] Sep, [facility] [address] [id number] [address] [place] [address], [place] [address] Sep, [facility] [address] [id number] [address] [place] [address] Aug, [facility] [address] [id number] [address] [place] [address], [place] [address] Aug, [facility] [address] [id number] [address] [place] [address], [place] [address] Aug, [facility] [address] [id number] [address] [place] [address], [place] [address] Aug, [facility] [address] [id number] [address] [place] [address], [place] [address] June, [facility] [address] [id number] [address] [place] [address], [place] [address] May, [facility] [address] [id number] [address] [place] [address], [place] [address] May, [facility] [address] [id number] [address] [place] [address], [place] [address] May, [facility] [address] [id number] [address] [place] [address], [place] [address] 18 May, 2013 [facility] [address] [id number] [address] [place] [address], [place] [address] May, [facility] [address] [id number] [address] [place] [address], [place] [address] 17 May, 2013 [facility] [address] [id number] [address] [place] [address], [place] [address] 16 May, 2013 [facility] [place] [address] [id number] [address] [place] [address], [place] [address] 16 May, 2013 [facility] [place] [facility] [address] [id number] [address] [place] [address], [place] [address] 14 May, 2013 [facility] [place] [facility] [address] [id number] [address] [place] [address], [place] [address] May, [facility] [address] [id number] [address] [place] [address] 14 May, 2013 [facility] [address] [id number] [address] [place] [address], [place] [address] May, [facility] [address] [id number] [address] [place] [address], [place] [address] Apr, [facility] [address] [id number] [address] [place] [address], [place] [address] Apr, [facility] [address] [id number] [address] [place] [address], [place] [address] Mar, [facility] [address] [id number] [address] [place] [address], [place] [address] Mar, [facility] [address] [id number] [address] [place] [address], [place] [address] Dec, [facility] [address] [id number] [address] [place] [address], [place] [address] Dec, [facility] [address] [id number] [address] [place] [address], [place] [address] Dec, [facility] [address] [id number] [address] [place] [address], [place] [address] Dec, [facility] [address] [id number] [address] [place] [address], [place] [address] Nov, [facility] [address] [id number] [address] [place] [address], [place] [address] Nov, [facility] [address] [id number] [address] [place] [address], [place] [address] Oct, [facility] [address] [id number] [address] [place] [address], [place] [address] Oct, [facility] [address] [id number] [address] [place] [address], [place] [address] Aug, [facility] [address] [id number] [address] [place] [address], [place] [address] Aug, [facility] [address] [id number] [address] [place] [address], [place] [address] Aug, [facility] [address] [id number] [address] [place] [address], [place] [address] Jul, [facility] [address] [id number] [address] [place] [address], [place] [address] June, [facility] [address] [id number] [address] [place] [address], [place] [address] June, [facility] [address] [id number] [address] [place] [address], [place] [address] Apr, [facility] [address] [id number] [address] [place] [address], [place] [address] Mar, [facility] [address] [id number] [address] [place] [address], [place] [address] Mar, [facility] [address] [id number] [address] [place] [address], [place] [address] Mar, [facility] [address] [id number] [address] [place] [address], [place] [address] Mar, [facility] [address] [id number] [address] [place] [address], [place] [address] Mar, [facility] [address] [id number] [address] [place] [address], [place] [address] Feb, [facility] [address] [id number] [address] [place] [address], [place] [address] Feb, [facility] [address] [id number] [address] [place] [address], [place] [address] Feb, [facility] [address] [id number] [address] [place] [address], [place] [address] Feb, [facility] [address] [id number] [address] [place] [address], [place] [address] Jan, [facility] [address] [id number] [address] [place] [address], [place] [address] Jan, [facility] [address] [id number] [address] [place] [address], [place] [address] Dec, [facility] [address] [id number] [address] [place] [address], [place] [address] Dec, [facility] [address] [id number] [address] [place] [address], [place] [address] Dec, [facility] [address] [id number] [address] [place] [address], [place] [address] Dec, [facility] [address] [id number] [address] [place] [address], [place] [address] Oct, [facility] [address] [id number] [address] [place] [address], [place] [address] Aug, [facility] [address] [id number] [address] [place] [address], [place] [address] Jul, [facility] [address] [id number] [address] [place] [address], [place] [address] June, [facility] [address] [id number] [address] [place] [address], [place] [address] June, [facility] [address] [id number] [address] [place] [address], [place] [address] June, [facility] [address] [id number] [address] [place] [address], [place] [address] June, [facility] [address] [id number] [address] [place] [address], [place] [address] June, [facility] [address] [id number] [address] [place] [address], [place] [address] May, [facility] [address] [id number] [address] [place] [address], [place] [address] May, [facility] [address] [id number] [address] [place] [address], [place] [address] Apr, [facility] [address] [id number] [address] [place] [address], [place] [address] 13 Apr, 2011 [facility] [address] [id number] [address] [place] [address], [place] [address] 27 Mar, 2011 [facility] [address] [id number] [address] [place] [address], [place] [address] Feb, [facility] [address] [id number] [address] [place] [address], [place] [address] Nov, [facility] [address] [id number] [address] [place] [address], [place] [address] Nov, [facility] [address] [id number] [address] [place] [address], [place] [address] Nov, [facility] [address] [id number] [address] [place] [address], [place] [address] Apr, [facility] [address] [id number] [address] [place] [address], [place] [address] Jan, [facility] [address] [id number] [address] [place] [address], [place] [address] Dec, [facility] [address] [id number] [address] [place] [address], [place] [address] Dec, [facility] [address] [id number] [address] [place] [address], [place] [address] 29 Nov, 2009 [facility] [address] [id number] [address] [place] [address], [place] [address] June, [facility] [address] [id number] [address] [place] [address], [place] [address] Jan, [facility] [address] [id number] [address] [place] [address], [place] [address] Jan, [facility] [address] [id number] [address] [place] [address], [place] [address] Jan, [facility] [address] [id number] [address] [place] [address] 22 Jan, 2009 [facility] [place] [address] [id number] [address] [place] [address] 16 Jan, 2009 [facility] [place] [address] [id number] [address] [place] [address] Jan, [facility] [place] [address] [id number] [address] [place] [address] Jan, [facility] [place] [address] [id number] [address] [place] [address] Jan, [facility] [place] [address] [id number] [address] [place] [address] Jan, [facility] [place] [address] [id number] [address] [place] [address] Jan, [facility] [place] [address] [id number] [address] [place] [address] Jan, [facility] [place] [address] [id number] [address] [place] [address] Jan, [facility] [place] [address] [id number] [address] [place] [address] Dec, [facility] [place] [address] [id number] [address] [place] [address] Dec, [facility] [place] [address] [id number] [address] [place] [address] Dec, [facility] [place] [address] [id number] [address] [place] [address] Dec, [facility] [place] [address] [id number] [address] [place] [address] Nov, [facility] [place] [address] [id number] [address] [place] [address] 10 Oct, 2008 IMMUNIZATIONS No Known Immunizations [...] knee pseudogout s tatus post joint fluid analysis-[facility] 09/20/16 Hospitalization History kidneys--[facility] 11[facility]2017 Hospitalization History Diverticulitis--[facility] 06/2018
--- OUTSIDE RECORDS SUMMARY | 2019-07-04 10:28 | XMS REPORT | Continuity of Care Document ---
Demographics Preferred Language Unknown Marital Status Unknown Spiritism Affiliation Unknown Race Unknown Ethnic Group Unknown Author Organization Unknown Address Unknown Phone Unavailable Allergies Active Description Code Type Severity Reaction Onset Reported/Identified Relationship to Patient Clinical Status Yes No Known Drug Allergies [id number] Drug Allergy Mild N/A 09/15/2008 Yes Actos Drug Allergy 06/25/2009 Yes Actos Drug Allergy N/A N/A 06/25/2009 Yes acetaminophen-codeine 300-30 mg tablet Drug Allergy N/A N/A 09/24/2013 Medications There is no data. Problems Date Dx Coded Attending Type Code Diagnosis Diagnosed By ELMER KRAMER, JUAN Ot D63.1 ANEMIA IN CHRONIC KIDNEY DISEASE ELMER KRAMER, JUAN Ot N18.3 CHRONIC KIDNEY DISEASE, STAGE 3 (MODERAT 09/15/2008 Ot 250.00 09/15/2008 Ot 274.9 09/15/2008 Ot 729.5 09/15/2008 Ot V15.81 11/01/2008 250.02 ROGER BETES MELLITUS POORLY CONTROLLED 11/01/2008 272.4 HYPE RLIPIDEMIA HYPERLIPOPROTEINEMIAS (Old Classification) 11/01/2008 KATERIN MERRILL DOA K 250.02 DIABETES MELLITUS POORLY CONTROLLED 11/01/2008 GARFIELD MAURICIO CHARMAINE K 272.4 HYPERLIPIDEMIA HYPERLIPOPROTEINEMIAS (Old Classification) 11/01/2008 SARI MOJICA MD 250.0 2 DIABETES MELLITUS POORLY CONTROLLED 11/01/2008 SARI MOJICA MD 272.4 HYPERLIPIDEMIA HYPERLIPOPROTEINEMIAS (Old Classification) 11/01/2008 MERRILL DO CHARMAINE K 250.02 DIABETES MELLITUS POORLY CONTROLLED 11/01/2008 GARFIELD MAURICIO CHARMAINE K 272.4 HYPERLIPIDEMIA HYPERLIPOPROTEINEMIAS (Old Classification) 11/01/2008 GARFIELD [...] MUOGHALU DDS, SANA N 272.4 HYPERLIPIDEMIA HYPERLIPOPROTEINEMIAS (Old Classificati on) 11/07/2008 250.40 ROGER BETIC NEPHROPATHY 11/07/2008 MERRILL DO, CHARMAINE K 250.40 DIABETIC NEPHROPATHY 11/07/2008 GALINA KRAMER, SARI 250.4 0 DIABETIC NEPHROPATHY 11/07/2008 MRERILL DO, CHARMAINE K 250.40 DIABETIC NEPHROPATHY 11/07/2008 [...] DO, CHARMAINE K 250.40 DIABETIC NEPHROPATHY 11/07/2008 MUOGHALRoverto S, SANA N 250.40 DIABETIC NEPHROPATHY 02/11/2009 250.00 ROGER BETES MELLITUS TYPE II 02/11/2009 MERRILL DO, CHARMAINE K 250.00 DIABETES MELLITUS TYPE II 02/11/2009 SARI MOJICA MD 250.0 0 DIABETES MELLITUS TYPE II 02/11/2009 MERRILL DO, [...] K 250.00 DIABETES MELLITUS TYPE II [facility] N 250.00 DIABETES MELLITUS TYPE II 02/18/2009 599.7 RUSLAN TURIA 02/18/2009 788.1 pain during urination (dysuria) 02/18/2009 [...] K 788.1 Pain During Urination (dysuria) 02/18/2009 LUIZ LUNA, SANA N 599.7 HEMATURIA 02/18/2009 LUIZ MONROYS, SANA N 788.1 pain during urination (dysuria) 02/19/2009 599.70 blo od in urine 02/19/2009 MERRILL DO, CHARMAINE K 599.70 Blood In Urine 02/19/2009 SARI MOJICA MD 599.7 0 Blood In Urine 02/19/2009 MERRILL DO, CHARMAINE K 599.70 Blood In Urine 02/19/2009 MERRILL DO, CHARMAINE K 599.70 Blood In Urine 02/19/2009 MERRILL DO, CHRAMAINE K 599.70 Blood In Urine 02/19/2009 MERRILL DO, CHARMAINE K 599.70 Blood In Urine 02/19/2009 MERRILL DO, CHARMAINE K 599.70 Blood In Urine 02/19/2009 MERRILL DO, CHARMAINE K 599.70 Blood In Urine 02/19/2009 MERRILL DO, CHARMAINE K 599.70 Blood In Urine 02/19/2009 MERRILL DO, CHARMAINE K 599.70 Blood In Urine 02/19/2009 MERRILL DO, CHARMAINE K 599.70 Blood In Urine 02/19/2009 LUIZ MONROYS, SANA N 599.70 blood in urine 03/19/2009 NODX NO DI AGNOSIS 03/19/2009 MERRILL DO, CHARMAINE K NODX No Diagnosis 03/19/2009 GALINA KRAMER, SARI NODX No Diagnosis 03/19/2009 MERRILL DO, CHARMAINE Shahid NODX No Diagnosis 03/19/2009 MERRILL DO, CHARMAINE Shahid NODX No Diagnosis 03/19/2009 MERRILL DO, CHARMAINE K NODX No Diagnosis 03/19/2009 MERRILL DO, CHARMAINE K NODX No Diagnosis 03/19/2009 MERRILL DO, CHARMAINE K NODX No Diagnosis 03/19/2009 MERRILL DO, CHARMAINE K NODX No Diagnosis 03/19/2009 MERRILL DO, CHARMAINE K NODX No Diagnosis 03/19/2009 MERRILL DO, CHARMAINE K NODX No Diagnosis 03/19/2009 MERRILL DO, CHARMAINE K NODX No Diagnosis 03/19/2009 LUIZ MONROYS, SANA Darling NODX NO DIAGNOSIS 05/23/2009 Ot 250.00 ROGER B MIHAELA WO COMPL, TYPE II OR UNSPEC TY 05/23/2009 Ot 401.9 HYPE RTENSION NOS 05/23/2009 Ot 574.20 CHO LELITHIASIS NOS 05/23/2009 Ot 592.1 CALC ULUS OF URETER 05/23/2009 Ot 788.0 RAJESH L COLIC 05/23/2009 Ot 789.09 05/23/2009 Ot V58.67 MAURIZIO G-TERM (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 07/05/2009 Ot 250.02 ROGER B MIHAELA WO COMPL, TYPE II OR UNSPEC TY 07/05/2009 Ot 272.1 PURE HYPERGLYCERIDEMIA 07/05/2009 Ot 274.9 GOUT NOS 07/05/2009 Ot 278.00 OBE SITY, NOS 07/05/2009 Ot 305.1 TOBA BUTTON STATION WORKER USE DISORDER 07/05/2009 Ot 401.9 HYPE RTENSION NOS 07/05/2009 Ot 414.01 COR ONARY ATHEROSCLEROSIS OF [place] CORON 07/05/2009 Ot 574.20 CHO LELITHIASIS NOS 07/05/2009 Ot 577.0 ACUT E PANCREATITIS 07/05/2009 Ot 592.0 CALC ULUS OF KIDNEY 07/05/2009 Ot 593.9 RAJESH L URETERAL DIS NOS 07/05/2009 Ot 794.39 ABN CARDIOVASC STUDY NEC 07/05/2009 Ot V12.79 PER CHRIS HISTORY OTH SPEC DIGESTIVE SYST 07/05/2009 Ot V85.39 BOD Y MASS INDEX 39.0-39.9, ADULT 08/16/2009 Ot 414.00 COR ON ATHEROSCLER NOS TYPE VESSEL, NATIV 08/16/2009 Ot 440.20 ATH EROSCLEROSIS [place] ARTERIES EXTREMIT 08/16/2009 Ot 496 CHR AI RWAY OBSTRUCT NEC 08/16/[address] PAIN NOS 09/30/2009 729.5 PAIN IN LIMB [...] K 729.5 Pain In Limb 09/30/2009 LUIZ DDS, SANA N 729.5 PAIN IN LIMB 02/03/2010 692.83 GIANNI MATITIS DUE TO METALS 02/03/2010 MERRILL DO, CHARMAINE K 692.83 Dermatitis Due To Metals 02/03/2010 SARI MOJICA MD 692.8 3 Dermatitis Due To Metals 02/03/2010 MERRILL DO, [...] K 692.83 Dermatitis Due To Metals 02/03/2010 SANA DEE DDS N 692.83 DERMATITIS DUE TO METALS 05/14/2010 585.3 SAUSAGE CANNER ASHIA KIDNEY DISEASE STAGE III (MODERATE) 05/14/2010 MERRILL DO, CHARMAINE K 585.3 CHRONIC KIDNEY DISEASE STAGE III (MODERATE) 05/14/2010 SARI MOJICA MD 585.3 CHRONIC KIDNEY DISEASE STAGE III (MODERATE) [...] DISEASE STAGE III (MODERATE) 05/14/2010 MERRILL DO, CAHRMAINE K 585.3 CHRONIC KIDNEY DISEASE STAGE III (MODERATE) 05/14/2010 SANA DEE DDS N 585.3 CHRONIC KIDNEY DISEASE STAGE III (MODERATE) 12/10/2010 278.00 OBE SITY UNSPECIFIED 12/10/2010 700 CORNS AND CALLOSITIES 12/10/2010 724.2 LUMBAGO 12/10/2010 V04.81 FLU DX (3 YRS AND ABOVE, IM) 12/10/2010 MERRILL DO, CHARMAINE K 278.00 OBESITY UNSPECIFIED 12/10/2010 MERRILL DO, CHARMAINE K 700 Corns And Callosities 12/10/2010 MERRILL DO, CHARMAINE K 724.2 LUMBAGO 12/10/2010 MERRILL DO, CHARMAINE K V04.81 FLU DX (3 YRS AND ABOVE, IM) 12/10/2010 GALINA KRAMER SARI 278.0 0 OBESITY UNSPECIFIED 12/10/2010 SARI MOJICA MD 700 Corns And Callosities 12/10/2010 SARI MOJICA MD 724.2 LUMBAGO 12/10/2010 SARI MOJICA MD V04.8 1 FLU DX (3 YRS AND ABOVE, IM) [...] MERRILL DO, CHARMAINE K 724.2 LUMBAGO 12/10/2010 MRERILL DO, CHARMAINE K V04.81 FLU DX (3 [...] YRS AND ABOVE, IM) 01/07/2011 Ot 250.00 ROGER B MIHAELA WO COMPL, TYPE II OR UNSPEC TY 01/07/2011 Ot 305.1 TOBA BUTTON STATION WORKER USE DISORDER 01/07/2011 Ot 401.9 HYPE RTENSION NOS 01/07/2011 Ot 414.01 COR ONARY ATHEROSCLEROSIS OF [place] CORON 01/07/[address] PAIN NOS 01/07/2011 Ot 789.00 ABD OMINAL PAIN, UNSPECIFIED SITE 01/07/2011 Ot 791.9 ABN URINE FINDINGS NEC 01/07/2011 Ot V45.82 PER CUTANEOUS TRANSLUM CORON ANGIOPLASTY 01/07/2011 Ot V58.67 MAURIZIO G-TERM (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 05/01/2011 Ot 840.4 SPRA IN ROTATOR CUFF 05/01/2011 Ot 924.20 CON TUSION OF FOOT 05/01/2011 Ot 959.2 SHLD R/UPPER ARM INJ NOS 05/01/2011 Ot E000.8 OTH ER EXTERNAL CAUSE STATUS 05/01/2011 Ot E849.0 ACC IDENT IN HOME 05/01/2011 Ot E917.9 STR UCK BY OBJ/PERSON NEC 05/01/2011 Ot E927.0 OVE REXERTION FROM SUDDEN STRENUOUS MOVEM 05/13/2011 840.4 ROTA TOR CUFF (CAPSULE) SPRAIN 05/13/2011 CHARMAINE MERRILL DO K 840.4 Rotator Cuff (capsule) Sprain 05/13/2011 SARI MOJICA MD 840.4 Rotator Cuff (capsule) Sprain 05/13/2011 CHARMAINE MERRILL DO K 840.4 Rotator Cuff (capsule) Sprain 05/13/2011 CHARMAINE MERRILL DO K 840.4 Rotator Cuff (capsule) Sprain 05/13/2011 KATERIN MERRILL DOA K 840.4 Rotator Cuff (capsule) Sprain 05/13/2011 KATERIN MERRILL DOA K 840.4 Rotator Cuff (capsule) Sprain 05/13/2011 KATERIN MERRILL DOA K 840.4 Rotator Cuff (capsule) Sprain 05/13/2011 KATERIN MERRILL DOA K 840.4 Rotator Cuff (capsule) Sprain 05/13/2011 KATERIN MERRILL DOA K 840.4 Rotator Cuff (capsule) Sprain 05/13/2011 KATERIN MERRILL DOA K 840.4 Rotator Cuff (capsule) Sprain 05/13/2011 KATERIN MERRILL DOA K 840.4 Rotator Cuff (capsule) Sprain 05/13/2011 LUIZ LUNA, SANA N 840.4 ROTATOR CUFF (CAPSULE) SPRAIN 06/21/2011 719.41 BOO N IN JOINT INVOLVING SHOULDER REGION 06/21/2011 CHARMAINE MERRILL DO 719.41 Pain In Joint Involving Shoulder Region 06/21/2011 SARI MOJICA MD 719.4 1 Pain In Joint Involving Shoulder Region 06/21/2011 [...] Involving Shoulder Region 06/21/2011 LUIZ LUNA, SANA [place] 719.41 PAIN IN JOINT INVOLVING SHOULDER REGION 11/27/2011 Ot 250.00 ROGER B MIHAELA WO COMPL, TYPE II OR UNSPEC TY 11/27/2011 Ot 414.00 COR ON ATHEROSCLER NOS TYPE VESSEL, NATIV 11/27/2011 Ot 789.09 ABD OMINAL PAIN, OTHER SPECIFIED SITE 11/27/2011 Ot V45.82 PER CUTANEOUS TRANSLUM CORON ANGIOPLASTY 11/27/2011 Ot V58.67 MAURIZIO G-TERM (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 11/27/2011 Ot V58.69 OTH MED,LT,CURRENT USE 03/23/2012 CHARMAINE MERRILL DO 414.00 CORONARY ATHEROSCLEROSIS OF UNSPECIFIED TYPE OF VESSEL [place] OR GRAFT 03/23/2012 CHARMAINE MERRILL DO 780.52 INSOMNIA UNSPECIFIED 03/23/2012 CHARMAINE MERRILL DO 791.0 MICROALBUMINURIA 03/23/2012 CHARMAINE MERRILL DO V58.69 LONG-TERM (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 OTHER MEDICATIONS 03/23/2012 SARI MOJICA MD 414.0 0 CORONARY ATHEROSCLEROSIS OF UNSPECIFIED TYPE OF VESSEL [place] OR GRAFT 03/23/2012 SARI MOJICA MD 780.5 2 INSOMNIA UNSPECIFIED 03/23/2012 SARI MOJICA MD 791.0 MICROALBUMINURIA 03/23/2012 SARI MOJICA MD V58.6 9 LONG-TERM (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 OTHER MEDICATIONS 03/23/2012 CHARMAINE MERRILL DO 414.00 CORONARY ATHEROSCLEROSIS OF UNSPECIFIED TYPE OF VESSEL [place] OR GRAFT 03/23/2012 MERRILL DO, CHARMAINE K 780.52 INSOMNIA UNSPECIFIED 03/23/2012 MERRILL DO, CHARMAINE K 791.0 MICROALBUMINURIA 03/23/2012 MERRILL DO, CHARMAINE K V58.69 LONG-TERM (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 OTHER MEDICATIONS 03/23/2012 MERRILL DO, CHARMAINE K 414.00 CORONARY ATHEROSCLEROSIS OF UNSPECIFIED TYPE OF VESSEL [place] OR GRAFT 03/23/2012 MERRILL DO, CHARMAINE K 780.52 INSOMNIA UNSPECIFIED 03/23/2012 MERRILL DO, CHARMAINE K 791.0 MICROALBUMINURIA 03/23/2012 MERRILL DO, CHARMAINE K V58.69 LONG-TERM (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 OTHER MEDICATIONS 03/23/2012 MERRILL DO, CHARMAINE K 414.00 CORONARY ATHEROSCLEROSIS OF UNSPECIFIED TYPE OF VESSEL [place] OR GRAFT 03/23/2012 MERRILL DO, CHARMAINE K 780.52 INSOMNIA UNSPECIFIED 03/23/2012 MERRILL DO, CHARMAINE K 791.0 MICROALBUMINURIA 03/23/2012 MERRILL DO, CHARMAINE K V58.69 LONG-TERM (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 OTHER MEDICATIONS 03/23/2012 MERRILL DO, CHARMAINE K 414.00 CORONARY ATHEROSCLEROSIS OF UNSPECIFIED TYPE OF VESSEL [place] OR GRAFT 03/23/2012 MERRILL DO, CHARMAINE K 780.52 INSOMNIA UNSPECIFIED 03/23/2012 MERRILL DO, CHARMAINE K 791.0 MICROALBUMINURIA 03/23/2012 MERRILL DO, CHARMAINE K V58.69 LONG-TERM (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 OTHER MEDICATIONS 03/23/2012 MERRILL DO, CHARMAINE K 414.00 CORONARY ATHEROSCLEROSIS OF UNSPECIFIED TYPE OF VESSEL [place] OR GRAFT 03/23/2012 MERRILL DO, CHARMAINE K 780.52 INSOMNIA UNSPECIFIED 03/23/2012 MERRILL DO, CHARMAINE K 791.0 MICROALBUMINURIA 03/23/2012 MERRILL DO, CHARMAINE K V58.69 LONG-TERM (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 OTHER MEDICATIONS 03/23/2012 MERRILL DO, CHARMAINE K 414.00 CORONARY ATHEROSCLEROSIS OF UNSPECIFIED TYPE OF VESSEL [place] OR GRAFT 03/23/2012 MERRILL DO, CHARMAINE K 780.52 INSOMNIA UNSPECIFIED 03/23/2012 MERRILL DO, CHARMAINE K 791.0 MICROALBUMINURIA 03/23/2012 MERRILL DO, CHARMAINE K V58.69 LONG-TERM (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 OTHER MEDICATIONS 03/23/2012 MERRILL DO, CHARMAINE K 414.00 CORONARY ATHEROSCLEROSIS OF UNSPECIFIED TYPE OF VESSEL [place] OR GRAFT 03/23/2012 MERRILL DO, CHARMAINE K 780.52 INSOMNIA UNSPECIFIED 03/23/2012 MERRILL DO, CHARMAINE K 791.0 MICROALBUMINURIA 03/23/2012 MERRILL DO, CHARMAINE K V58.69 LONG-TERM (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 OTHER MEDICATIONS 03/23/2012 MERRILL DO, CHARMAINE K 414.00 CORONARY ATHEROSCLEROSIS OF UNSPECIFIED TYPE OF VESSEL [place] OR GRAFT 03/23/2012 MERRILL DO CHARMAINE K 780.52 INSOMNIA UNSPECIFIED 03/23/2012 MERRILL DO, CHARMAINE K 791.0 MICROALBUMINURIA 03/23/2012 MERRILL , CHARMAINE K V58.69 LONG-TERM (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 OTHER MEDICATIONS 03/23/2012 MERRILL DO, CHARMAINE K 414.00 CORONARY ATHEROSCLEROSIS OF UNSPECIFIED TYPE OF VESSEL [place] OR GRAFT 03/23/2012 GARFIELD MAURICIO CHARMAINE K 780.52 INSOMNIA UNSPECIFIED 03/23/2012 MERRILL DO, CHARMAINE K 791.0 MICROALBUMINURIA 03/23/2012 GARFIELD MAURICIO CHARMAINE K V58.69 LONG-TERM (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 OTHER MEDICATIONS 03/27/2012 Ot 250.00 ROGER B MIHAELA WO COMPL, TYPE II OR UNSPEC TY 03/27/2012 Ot 272.4 HYPE RLIPIDEMIA NEC/NOS 03/27/2012 Ot 276.50 VOL UME DEPLETION, UNSPECIFIED 03/27/2012 Ot 305.1 TOBA BUTTON STATION WORKER USE DISORDER 03/27/2012 Ot 403.90 HYP TNSV CHR KID DIS, UNSPEC, W CHR KD ST 03/27/2012 Ot 414.01 COR ONARY ATHEROSCLEROSIS OF [place] CORON 03/27/2012 Ot 585.9 SAUSAGE CANNER ASHIA KIDNEY DISEASE, UNSPECIFIED 03/27/2012 Ot 787.01 EDWIN SEA WITH VOMITING 03/27/2012 Ot 789.09 ABD OMINAL PAIN, OTHER SPECIFIED SITE 03/27/2012 Ot V45.82 PER CUTANEOUS TRANSLUM CORON ANGIOPLASTY 06/05/2012 Ot 250.00 ROGER B MIHAELA WO COMPL, TYPE II OR UNSPEC TY 06/05/2012 Ot 274.9 GOUT NOS 06/05/2012 Ot 414.01 COR ONARY ATHEROSCLEROSIS OF [place] CORON 06/05/2012 Ot 593.9 RAJESH L URETERAL DIS NOS 06/05/[address] PAIN NOS 06/05/2012 Ot 794.31 ABN ORM ELECTROCARDIOGRAM 06/05/2012 Ot V45.82 PER CUTANEOUS TRANSLUM CORON ANGIOPLASTY 06/05/2012 Ot V58.66 MAURIZIO G-TERM (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 ASPIRIN 06/05/2012 Ot V58.67 MAURIZIO G-TERM (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 06/05/2012 Ot V58.69 OTH MED,LT,CURRENT USE 07/10/2012 LESIA TERRY MD Ot 719.46 JOINT PAIN-L/LEG 07/10/2012 LESIA TERRY MD Ot 823.80 FX TIBIA NOS-CLOSED 07/10/2012 LESIA TERRY MD Ot E000.8 OTHER EXTERNAL CAUSE STATUS 07/10/2012 LESIA TERRY MD Ot E917.4 STAT OB W/O SUB FALL NEC 04/19/2013 ARIELLE MICHAEL MD Ot 250.00 DIAB MIHAELA WO COMPL, TYPE II OR UNSPEC TY 04/19/2013 ARIELLE MICHAEL MD Ot 272.0 PURE HYPERCHOLESTEROLEM 04/19/2013 ARIELLE MICHAEL MD Ot 272.4 HYPERLIPIDEMIA NEC/NOS 04/19/2013 ARIELLE MICHAEL MD Ot 274.9 GOUT NOS 04/19/2013 ARIELLE MICHAEL MD Ot 276.1 HYPOSMOLALITY 04/19/2013 ARIELLE MICHAEL MD Ot 305.1 TOBACCO USE DISORDER 04/19/2013 ARIELLE MICHAEL MD Ot 401.9 HYPERTENSION NOS 04/19/2013 ARIELLE MICHAEL MD Ot 414.01 CORONARY ATHEROSCLEROSIS OF [place] CORON 04/19/2013 ARIELLE MICHAEL MD Ot 574.20 CHOLELITHIASIS NOS 04/19/2013 ARIELLE MICHAEL MD Ot 577.0 ACUTE PANCREATITIS 04/19/2013 ARIELLE MICHAEL MD Ot 787.01 NAUSEA WITH VOMITING 04/19/2013 ARIELLE MICHAEL MD Ot V15.81 HX OF PAST NONCOMPLIANCE 04/19/2013 ARIELLE MICHAEL MD Ot V45.82 PERCUTANEOUS TRANSLUM CORON ANGIOPLASTY 04/20/2013 BRAYAN KRAMER, FACUNDO Lezama Ot 574.10 CHOLELITH W CHOLECYS NEC 05/08/2013 CHARMAINE MERRILL DO 372.30 CONJUNCTIVITIS UNSPECIFIED 05/08/2013 MERRILL DO, CHARMAINE [...] MEDICAL TREATMENT PRESENTING HAZARDS TO HEALTH 09/10/2013 EMRRILL DO, CHARMAINE K 719.46 PAIN IN JOINT INVOLVING LOWER LEG 09/10/2013 MERRILL DO, CHARMAINE K 784.0 HEADACHE 09/10/2013 MERRILL DO, CHARMAINE K V15.81 PERSONAL HISTORY OF NONCOMPLIANCE WITH MEDICAL TREATMENT PRESENTING HAZARDS TO HEALTH 09/10/2013 MERRILL DO, CHARMAINE K 719.46 PAIN IN JOINT INVOLVING LOWER LEG 09/10/2013 CHARMAINE MERRILL DO K 784.0 HEADACHE 09/10/2013 CHARMAINE MERRILL DO K V15.81 PERSONAL HISTORY OF NONCOMPLIANCE WITH MEDICAL TREATMENT PRESENTING HAZARDS TO HEALTH 11/06/2013 SHILA DARLINGCOMPA Ot 719.46 JOINT PAIN-L/LEG 02/06/2014 Ot 414.01 02/06/2014 Ot 786.50 02/06/2014 Ot 414.9 02/06/2014 Ot 786.50 02/06/2014 AMI MEZA MD Ot 717. 5 02/11/2014 GARFIELD MAURICIO CHARMAINE K 840.9 SPRAIN OF UNSPECIFIED SITE OF SHOULDER AND UPPER ARM 03/06/2014 MARIA TERESA ROD MD (DDU) Ot V68.01 03/06/2014 MARIA TERESA ROD MD (DDU) Ot V82.89 06/15/2014 JOS QUIROZ DO Ot 250.00 DIAB MIHAELA WO COMPL, TYPE II OR UNSPEC TY 06/15/2014 JOS QUIROZ DO Ot 275.2 DIS MAGNESIUM METABOLISM 06/15/2014 JOS QUIROZ DO Ot 558.9 NONINF GASTROENTERIT NEC 06/15/2014 JOS QUIROZ DO Ot 789.07 ABDOMINAL PAIN, GENERALIZED 06/15/2014 JOS QUIROZ DO Ot V58.69 OTH MED,LT,CURRENT USE 06/15/2014 Ot 414.01 06/15/2014 Ot 786.50 06/15/2014 Ot 414.9 06/15/2014 Ot 786.50 06/15/2014 AMI MEZA MD Ot 717. 5 06/15/2014 VINCE MEJIA MD (DDU) Ot V68.01 06/15/2014 VINCE MEJIA MD (DDU) Ot V82.89 06/15/2014 MARIA TERESA ROD MD (DDU) Ot V68.01 06/15/2014 MARIA TERESA ROD MD (DDU) Ot V82.89 09/08/2014 Ot 414.01 09/08/2014 Ot 786.50 09/08/2014 Ot 414.9 09/08/2014 Ot 786.50 09/08/2014 AMI MEZA MD Ot 717. 5 09/08/2014 VINCE MEJIA MD (DDU) Ot V68.01 [...] Ot 786.50 09/08/2014 AMI MEZA MD Ot 717. 5 09/08/2014 VINCE MEJIA MD (DDU) Ot V68.01 09/08/2014 VINCE MEJIA MD (DDU) Ot V82.89 09/08/2014 MARIA TERESA ROD MD (DDU) Ot V68.01 09/08/2014 MARIA TERESA ROD MD (DDU) Ot V82.89 09/13/2014 Ot 414.01 09/13/2014 Ot 786.50 09/13/2014 Ot 414.9 09/13/2014 Ot 786.50 09/13/2014 AMI MEZA MD Ot 717. 5 09/13/2014 VINCE MEJIA MD (DDU) Ot V68.01 09/13/2014 VINCE MEJIA MD (DDU) Ot V82.89 09/13/2014 MARIA TERESA ROD MD (DDU) Ot V68.01 09/13/2014 MARIA TERESA ROD MD (DDU) Ot V82.89 01/12/2015 Ot 414.01 01/12/2015 Ot 786.50 01/12/2015 Ot 414.9 01/12/2015 Ot 786.50 01/12/2015 AMI MEZA MD Ot 717. 5 01/12/2015 VINCE MEJIA MD (DDU) Ot V68.01 01/12/2015 VINCE MEJIA MD (DDU) Ot V82.89 01/12/2015 MARIA TERESA ROD MD (DDU) Ot V68.01 01/12/2015 MARIA TERESA ROD MD (DDU) Ot V82.89 01/12/2015 ANGELIA CHAMORRO DO Ot E11.9 TYPE 2 DIABETES MELLITUS WITHOUT COMPLIC 01/12/2015 ANGELIA CHAMORRO DO Ot F17.210 NICOTINE DEPENDENCE, CIGARETTES, UNCOMPL 01/12/2015 ANGELIA CHAMORRO DO Ot I70.201 UNSP ATHSCL [place] ARTERIES OF EXTREMITI 01/12/2015 ANGELIA CHAMORRO DO Ot M77.31 CALCANEAL SPUR, RIGHT FOOT 01/12/2015 ANGELIA CHAMORRO DO Ot Z79.4 GROUP HOME (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 01/12/2015 ANGELIA CHAMORRO DO Ot Z79.899 OTHER DRIVING INSTRUCTOR (CURRENT) DRUG THERAPY 01/14/2015 Ot 414.01 01/14/2015 Ot 786.50 01/14/2015 Ot 414.9 01/14/2015 Ot 786.50 01/14/2015 AMI MEZA MD Ot 717. 5 01/14/2015 VINCE MEJIA MD (DDU) Ot V68.01 01/14/2015 VINCE MEJIA MD (DDU) Ot V82.89 01/14/2015 MARIA TERESA ROD MD (DDU) Ot V68.01 01/14/2015 MARIA TERESA ROD MD (DDU) Ot V82.89 06/27/2015 Ot 414.01 COR ONARY ATHEROSCLEROSIS OF [place] CORON 06/27/[address] PAIN NOS 06/27/2015 Ot 414.9 CHR ISCHEMIC HRT DIS NOS 06/27/[address] PAIN NOS 06/27/2015 AMI MEZA MD Ot 717. 5 DERANGEMENT MENISCUS NEC 06/27/2015 VINCE MEJIA MD (DDU) Ot V68.01 DISABILITY EXAMINATION 06/27/2015 VINCE MEJIA MD (DDU) Ot V82.89 SCREEN FOR OTH SPECIF CONDITIONS 06/27/2015 MARIA TERESA ROD MD (U) Ot V68.01 DISABILITY EXAMINATION 06/27/2015 MARIA TERESA ROD MD (U) Ot V82.89 SCREEN FOR OTH SPECIF CONDITIONS 06/28/2015 Ot 414.01 COR ONARY ATHEROSCLEROSIS OF [place] CORON 06/28/[address] PAIN NOS 06/28/2015 Ot 414.9 CHR ISCHEMIC HRT DIS NOS 06/28/[address] PAIN NOS 06/28/2015 AMI MEZA MD Ot 717. 5 DERANGEMENT MENISCUS NEC 06/28/2015 VINCE MEJIA MD (DDU) Ot V68.01 DISABILITY EXAMINATION 06/28/2015 VINCE MEJIA MD ([facility]) Ot V82.89 SCREEN FOR OTH SPECIF CONDITIONS 06/28/2015 MARIA TERESA ROD MD (U) Ot V68.01 DISABILITY EXAMINATION 06/28/2015 MARIA TERESA ROD MD (U) Ot V82.89 SCREEN FOR OTH SPECIF CONDITIONS 06/28/2015 KAYA TADEO MD Ot E11.65 TYPE 2 DIABETES MELLITUS WITH HYPERGLYCE 06/28/2015 KAYA TADEO MD Ot E66 .9 OBESITY, UNSPECIFIED 06/28/2015 KAYA TADEO MD Ot F17.210 NICOTINE DEPENDENCE, CIGARETTES, UNCOMPL 06/28/2015 KAYA TADEO MD Ot I12 .9 HYPERTENSIVE CHRONIC KIDNEY DISEASE W ST 06/28/2015 KAYA TADEO MD Ot K21 .9 GASTRO-ESOPHAGEAL REFLUX DISEASE WITHOUT 06/28/2015 KAYA TADEO MD Ot N18 .3 CHRONIC KIDNEY DISEASE, STAGE 3 (MODERAT 06/28/2015 KAYA TADEO MD Ot R07.89 OTHER CHEST PAIN 06/28/2015 KAYA TADEO MD Ot Z68.37 BODY MASS INDEX (BMI) 37.0-37.9, ADULT 06/28/2015 KAYA TADEO MD Ot 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 06/28/2015 KAYA TADEO MD Ot Z91.14 PATIENT'S OTHER NONCOMPLIANCE WITH MEDIC 06/28/2015 KAYA TADEO MD Ot E11.65 TYPE 2 DIABETES MELLITUS WITH HYPERGLYCE 06/28/2015 KAYA TADEO MD Ot E66 .9 OBESITY, UNSPECIFIED 06/28/2015 KAYA TADEO MD Ot F17.210 NICOTINE DEPENDENCE, CIGARETTES, UNCOMPL 06/28/2015 KAYA TADEO MD Ot I12 .9 HYPERTENSIVE CHRONIC KIDNEY DISEASE W ST 06/28/2015 KAYA TADEO MD Ot K21 .9 GASTRO-ESOPHAGEAL REFLUX DISEASE WITHOUT 06/28/2015 KAYA TADEO MD Ot N18 .3 CHRONIC KIDNEY DISEASE, STAGE 3 (MODERAT 06/28/2015 KAYA TADEO MD Ot R07.89 OTHER CHEST PAIN 06/28/2015 KAYA TADEO MD Ot Z68.37 BODY MASS INDEX (BMI) 37.0-37.9, ADULT 06/28/2015 KAYA TADEO MD Ot Z79 .4 GROUP HOME (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 06/28/2015 KAYA TADEO MD Ot Z91.14 PATIENT'S OTHER NONCOMPLIANCE WITH MEDIC 06/30/2015 Ot 414.01 COR ONARY ATHEROSCLEROSIS OF [place] CORON 06/30/[address] PAIN NOS 06/30/2015 Ot 414.9 CHR ISCHEMIC HRT DIS NOS 06/30/[address] PAIN NOS 06/30/2015 AMI MEZA MD Ot 717. 5 DERANGEMENT MENISCUS NEC 06/30/2015 VINCE MEJIA MD ([facility]) Ot V68.01 DISABILITY EXAMINATION 06/30/2015 VINCE MEJIA MD ([facility]) Ot V82.89 SCREEN FOR OTH SPECIF CONDITIONS 06/30/2015 MARIA TERESA ROD MD (U) Ot V68.01 DISABILITY EXAMINATION 06/30/2015 MARIA TERESA ROD MD ([facility]) Ot V82.89 SCREEN FOR OTH SPECIF CONDITIONS 08/20/2015 Ot 574.20 CHO LELITHIASIS NOS 08/20/2015 Ot 592.0 CALC ULUS OF KIDNEY 08/20/2015 Ot 592.1 CALC ULUS OF URETER 08/20/2015 Ot 274.11 URI C ACID NEPHROLITHIAS 08/20/2015 Ot 592.1 CALC ULUS OF URETER 08/20/2015 Ot 414.01 COR ONARY ATHEROSCLEROSIS OF [place] CORON 08/20/[address] PAIN NOS 08/20/2015 Ot 414.9 CHR ISCHEMIC HRT DIS NOS 08/20/[address] PAIN NOS 08/20/2015 AMI MEZA MD Ot 717. 5 DERANGEMENT MENISCUS NEC 08/20/2015 VINCE MEJIA MD ([facility]) Ot V68.01 DISABILITY EXAMINATION 08/20/2015 VINCE MEJIA MD ([facility]) Ot V82.89 SCREEN FOR OTH SPECIF CONDITIONS 08/20/2015 MARIA TERESA ROD MD ([facility]) Ot V68.01 DISABILITY EXAMINATION 08/20/2015 MARIA TERESA ROD MD ([facility]) Ot V82.89 SCREEN FOR OTH SPECIF CONDITIONS 08/20/2015 Ot 414.01 COR ONARY ATHEROSCLEROSIS OF [place] CORON 08/20/[address] PAIN NOS 08/20/2015 Ot 414.9 CHR ISCHEMIC HRT DIS NOS 08/20/[address] PAIN NOS 08/20/2015 AMI MEZA MD Ot 717. 5 DERANGEMENT MENISCUS NEC 08/20/2015 VINCE MEJIA MD ([facility]) Ot V68.01 DISABILITY EXAMINATION 08/20/2015 VINCE MEJIA MD ([facility]) Ot V82.89 SCREEN FOR OTH SPECIF CONDITIONS 08/20/2015 MARIA TERESA ROD MD ([facility]) Ot V68.01 DISABILITY EXAMINATION 08/20/2015 MARIA TERESA ROD MD ([facility]) Ot V82.89 SCREEN FOR OTH SPECIF CONDITIONS 09/29/2015 Ot 414.01 COR ONARY ATHEROSCLEROSIS OF [place] CORON 09/29/[address] PAIN NOS 09/29/2015 Ot 414.9 CHR ISCHEMIC HRT DIS NOS 09/29/[address] PAIN NOS 09/29/2015 AMI MEZA MD Ot 717. 5 DERANGEMENT MENISCUS NEC 09/29/2015 VINCE MEJIA MD ([facility]) Ot V68.01 DISABILITY EXAMINATION 09/29/2015 VINCE MEJIA MD ([facility]) Ot V82.89 SCREEN FOR OTH SPECIF CONDITIONS 09/29/2015 MARIA TERESA ROD MD ([facility]) Ot V68.01 DISABILITY EXAMINATION 09/29/2015 MARIA TERESA ROD MD ([facility]) Ot V82.89 SCREEN FOR OTH SPECIF CONDITIONS 11/10/2015 Ot 414.9 CHR ISCHEMIC HRT DIS NOS 11/10/[address] PAIN NOS 11/10/2015 AMI MEZA MD Ot 717. 5 DERANGEMENT MENISCUS NEC 11/10/2015 VINCE MEJIA MD ([facility]) Ot V68.01 DISABILITY EXAMINATION 11/10/2015 VINCE MEJIA MD ([facility]) Ot V82.89 SCREEN FOR OTH SPECIF CONDITIONS 11/10/2015 MARIA TERESA ROD MD ([facility]) Ot V68.01 DISABILITY EXAMINATION 11/10/2015 MARIA TERESA ROD MD ([facility]) Ot V82.89 SCREEN FOR OTH SPECIF CONDITIONS 01/02/2016 Ot 414.9 CHR ISCHEMIC HRT DIS NOS 01/02/[address] PAIN NOS 01/02/2016 AMI MEZA MD Ot 717. 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 5 DERANGEMENT MENISCUS NEC 01/02/2016 VINCE MEJIA MD (DDU) Ot V68.01 DISABILITY EXAMINATION 01/02/2016 VINCE MEJIA MD (DDU) Ot V82.89 SCREEN FOR OTH SPECIF CONDITIONS 01/02/2016 MARIA TERESA ROD MD (DDU) Ot V68.01 DISABILITY EXAMINATION 01/02/2016 MARIA TERESA ROD MD (DDU) Ot V82.89 SCREEN FOR OTH SPECIF CONDITIONS 01/09/2016 Ot 414.9 CHR ISCHEMIC HRT DIS NOS 01/09/[address] PAIN NOS 01/09/2016 AMI EMZA MD Ot 717. 5 DERANGEMENT MENISCUS NEC 01/09/2016 VINCE MEJIA MD (DDU) Ot V68.01 DISABILITY EXAMINATION 01/09/2016 VINCE MEJAI MD (DDU) Ot V82.89 SCREEN FOR OTH SPECIF CONDITIONS 01/09/2016 MARIA TERESA ROD MD (DDU) Ot V68.01 DISABILITY EXAMINATION 01/09/2016 MARIA TERESA ROD MD (DDU) Ot V82.89 SCREEN FOR OTH SPECIF CONDITIONS 01/09/2016 JOS QUIROZ DO Ot E11.9 TYPE 2 DIABETES MELLITUS WITHOUT COMPLIC 01/09/2016 JOS QUIROZ DO, Ot I1 0 ESSENTIAL (PRIMARY) HYPERTENSION 01/09/2016 JOS QUIROZ DO, Ot S93.402A SPRAIN OF UNSPECIFIED LIGAMENT OF LEFT A 01/09/2016 JOS QUIROZ DO, Ot S99.912A UNSPECIFIED INJURY OF LEFT ANKLE, INITIA 01/09/2016 JOS QUIROZ DO, Ot W18.31XA FALL ON SAME LEVEL DUE TO STEPPING ON AN 01/09/2016 JOS QUIROZ DO, Ot Y92.[address] OR NOT APPLICABLE 01/09/2016 JOS QUIROZ DO, Ot Y93.9 ACTIVITY, UNSPECIFIED 01/09/2016 JOS QUIROZ DO, Ot Y99.8 OTHER EXTERNAL CAUSE STATUS 01/09/2016 JOS QUIROZ DO, Ot Z79.4 GROUP HOME (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 01/09/2016 JOS QUIROZ DO, Ot Z79.899 OTHER DRIVING INSTRUCTOR (CURRENT) DRUG THERAPY 01/10/2016 ROSALIE BURDICK MD, Ot E11.65 TYPE 2 DIABETES MELLITUS WITH HYPERGLYCE 01/10/2016 ROSALIE BURDICK MD, Ot I12.9 HYPERTENSIVE CHRONIC KIDNEY DISEASE W ST 01/10/2016 ROSALIE BURDICK MD, Ot N18.9 CHRONIC KIDNEY DISEASE, UNSPECIFIED 01/10/2016 ROSALIE BURDICK MD, Ot N28.89 OTHER SPECIFIED DISORDERS OF KIDNEY AND 01/10/2016 ROSALIE BURDICK MD, Ot R10.32 LEFT LOWER QUADRANT PAIN 01/10/2016 ROSALIE BURDICK MD, Ot R11.2 NAUSEA WITH VOMITING, UNSPECIFIED 01/10/2016 ROSALIE BURDICK MD, Ot R19.7 DIARRHEA, UNSPECIFIED 01/10/2016 ROSALIE BURDICK MD, Ot Z79.4 DRIVING INSTRUCTOR (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 01/10/2016 ROSALIE BURDICK MD, Ot Z79.84 GROUP HOME (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 ORAL HYPOGLYC 01/10/2016 ROSALIE BURDICK MD, Ot Z79.899 OTHER DRIVING INSTRUCTOR (CURRENT) DRUG THERAPY 01/12/2016 JOS QUIROZ DO, Ot E11.9 TYPE 2 DIABETES MELLITUS WITHOUT COMPLIC 01/12/2016 JOS QUIROZ DO, Ot I1 0 ESSENTIAL (PRIMARY) HYPERTENSION 01/12/2016 JOS QUIROZ DO, [...] STATUS 01/12/2016 JOS QUIROZ DO, Ot Z79.4 DRIVING INSTRUCTOR (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 01/12/2016 JOS QUIROZ DO, Ot Z79.899 OTHER GROUP HOME (CURRENT) DRUG THERAPY 02/24/2016 SARAH KRAMER, SAMSON Camacho Ot E11. 9 TYPE 2 DIABETES MELLITUS WITHOUT COMPLIC 02/24/2016 SARAH KRAMER, SAMSON Camacho Ot I10 ESSENTIAL (PRIMARY) HYPERTENSION 02/24/2016 SARAH KRAMER, SAMSON Camacho Ot M10. 9 GOUT, UNSPECIFIED 02/24/2016 SARAH KRAMER, SAMSON Camacho Ot M25.462 EFFUSION, LEFT KNEE 02/24/2016 SARAH KRAMER, SAMSON Camacho Ot M25.472 EFFUSION, LEFT ANKLE 02/24/2016 SARAH KRAMER, SAMSON Camacho Ot M25.562 PAIN IN LEFT KNEE 02/24/2016 SARAH KRAMER, SAMSON Camacho Ot Z79. 4 GROUP HOME (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 02/24/2016 SAMSON SMITH MD Ot Z79.899 OTHER GROUP HOME (CURRENT) DRUG THERAPY 03/12/2016 BENJAMIN ANAND APRN Ot E11 .9 TYPE 2 DIABETES MELLITUS WITHOUT COMPLIC 03/12/2016 BENJAMIN ANAND APRN Ot I10 ESSENTIAL (PRIMARY) HYPERTENSION 03/12/2016 BENJAMIN ANAND APRN Ot L03.115 CELLULITIS OF RIGHT LOWER LIMB 03/12/2016 BENJAMIN ANAND APRN Ot R22.41 LOCALIZED SWELLING, MASS AND LUMP, RIGHT 03/12/2016 BENJAMIN ANAND APRN Ot 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 03/12/2016 BENJAMIN ANAND APRN Ot Z79.899 OTHER GROUP HOME (CURRENT) DRUG THERAPY 03/12/2016 BENJAMIN ANAND APRN Ot Z95 .5 PRESENCE OF CORONARY ANGIOPLASTY IMPLANT 03/15/2016 BENJAMIN ANAND APRN Ot E11 .9 TYPE 2 DIABETES MELLITUS WITHOUT COMPLIC 03/15/2016 BENJAMIN ANAND [employer] Ot I10 ESSENTIAL (PRIMARY) HYPERTENSION 03/15/2016 BENJAMIN ANAND APRN Ot L03.115 CELLULITIS OF RIGHT LOWER LIMB 03/15/2016 BENJAMIN ANAND APRN Ot R22.41 LOCALIZED SWELLING, MASS AND LUMP, RIGHT 03/15/2016 BENJAMIN ANAND APRN Ot Z79 .4 GROUP HOME (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 03/15/2016 BENJAMIN ANAND APRN Ot Z79.899 OTHER DRIVING INSTRUCTOR (CURRENT) DRUG THERAPY 03/15/2016 BENJAMIN ANAND APRN Ot Z95 .5 PRESENCE OF CORONARY ANGIOPLASTY IMPLANT 03/18/2016 DRAGAN, MIKHAIL BULK SYSTEM OPERATOR Ot E11.9 TYPE 2 DIABETES MELLITUS WITHOUT COMPLIC 03/18/2016 DRAGAN, MIKHAIL BULK SYSTEM OPERATOR Ot F17.210 NICOTINE DEPENDENCE, CIGARETTES, UNCOMPL 03/18/2016 DRAGAN, MIKHAIL BULK SYSTEM OPERATOR Ot I10 ESSENTIAL (PRIMARY) HYPERTENSION 03/18/2016 DRAGAN, MIKHAIL BULK SYSTEM OPERATOR Ot L03.115 CELLULITIS OF RIGHT LOWER LIMB 03/18/2016 DRAGAN, MIKHAIL BULK SYSTEM OPERATOR Ot M79.671 PAIN IN RIGHT FOOT 03/18/2016 DRAGAN, MIKHAIL BULK SYSTEM OPERATOR Ot Z79.4 DRIVING INSTRUCTOR (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 03/18/2016 DRAGAN, MIKHAIL BULK SYSTEM OPERATOR Ot Z79.899 OTHER DRIVING INSTRUCTOR (CURRENT) DRUG THERAPY 03/18/2016 DRAGAN, MIKHAIL BULK SYSTEM OPERATOR Ot Z95.5 PRESENCE OF CORONARY ANGIOPLASTY IMPLANT 03/19/2016 DRAGAN, MIKHAIL BULK SYSTEM OPERATOR Ot E11.9 TYPE 2 DIABETES MELLITUS WITHOUT COMPLIC 03/19/2016 DRAGAN, MIKHAIL BULK SYSTEM OPERATOR Ot F17.210 NICOTINE DEPENDENCE, CIGARETTES, UNCOMPL 03/19/2016 DRAGAN, MIKHAIL BULK SYSTEM OPERATOR Ot I10 ESSENTIAL (PRIMARY) HYPERTENSION 03/19/2016 DRAGAN, MIKHAIL BULK SYSTEM OPERATOR Ot L03.115 CELLULITIS OF RIGHT LOWER LIMB 03/19/2016 DRAGAN, MIKHAIL BULK SYSTEM OPERATOR Ot M79.671 PAIN IN RIGHT FOOT 03/19/2016 DRAGAN, MIKHAIL BULK SYSTEM OPERATOR Ot Z79.4 DRIVING INSTRUCTOR (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 03/19/2016 DRAGAN, MIKHAIL BULK SYSTEM OPERATOR Ot Z79.899 OTHER GROUP HOME (CURRENT) DRUG THERAPY 03/19/2016 DRAGAN, MIKHAIL BULK SYSTEM OPERATOR Ot Z95.5 PRESENCE OF CORONARY ANGIOPLASTY IMPLANT 03/24/2016 DRAGAN, MIKHAIL BULK SYSTEM OPERATOR Ot E11.9 TYPE 2 DIABETES MELLITUS WITHOUT COMPLIC 03/24/2016 DRAGAN, MIKHAIL BULK SYSTEM OPERATOR Ot F17.210 NICOTINE DEPENDENCE, CIGARETTES, UNCOMPL 03/24/2016 DRAGAN, MIKHAIL BULK SYSTEM OPERATOR Ot I10 ESSENTIAL (PRIMARY) HYPERTENSION 03/24/2016 DRAGAN, MIKHAIL BULK SYSTEM OPERATOR Ot L03.115 CELLULITIS OF RIGHT LOWER LIMB 03/24/2016 DRAGAN, MIKHAIL BULK SYSTEM OPERATOR Ot M79.671 PAIN IN RIGHT FOOT 03/24/2016 DRAGAN, MIKHAIL BULK SYSTEM OPERATOR Ot Z79.4 GROUP HOME (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 03/24/2016 DRAGAN, MIKHAIL BULK SYSTEM OPERATOR Ot Z79.899 OTHER DRIVING INSTRUCTOR (CURRENT) DRUG THERAPY 03/24/2016 MIKHAIL ARCHIBALD Ot Z95.5 PRESENCE OF CORONARY ANGIOPLASTY IMPLANT [...] R11.2 NAUSEA WITH VOMITING, UNSPECIFIED 04/05/2016 ASHTYN DO, ANGELIA K Ot R19.7 DIARRHEA, UNSPECIFIED 04/05/2016 ASHTYN DO, ANGELIA K Ot Z79.4 DRIVING INSTRUCTOR (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 04/05/2016 ASHTYN DO, ANGELIA K Ot Z79.899 OTHER GROUP HOME (CURRENT) DRUG THERAPY 04/05/2016 ASHTYN DO, ANGELIA K Ot Z95.5 PRESENCE OF CORONARY ANGIOPLASTY IMPLANT 06/05/2016 ERICA BOWMAN MD Ot E11. 22 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 CANNER 06/05/2016 ERICA BOWMAN MD Ot E66. 9 OBESITY, UNSPECIFIED 06/05/2016 ERICA BOWMAN MD Ot E78. 5 HYPERLIPIDEMIA, UNSPECIFIED 06/05/2016 ERICA BOWMAN MD, Ot I12. 9 HYPERTENSIVE CHRONIC KIDNEY DISEASE W ST 06/05/2016 ERICA BOWMAN MD Ot I25.110 ATHSCL HEART DISEASE OF [place] COR ART W 06/05/2016 ERICA BOWMAN MD, Ot N18. 9 CHRONIC KIDNEY DISEASE, UNSPECIFIED 06/05/2016 ERICA BOWMAN MD, Ot T82.855A STENOSIS OF CORONARY ARTERY STENT, INITI 06/05/2016 ERICA BOWMAN MD, Ot Z68. 38 BODY MASS INDEX (BMI) 38.0-38.9, ADULT 06/05/2016 ERICA BOWMAN MD Ot Z72. 0 TOBACCO USE 06/05/2016 ERICA BOWMAN MD, Ot Z79. 84 GROUP HOME (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 ORAL HYPOGLYC 06/05/2016 ERICA BOWMAN MD, Ot Z79.899 OTHER GROUP HOME (CURRENT) DRUG THERAPY 06/07/2016 Ot 414.9 CHR ISCHEMIC HRT DIS NOS 06/07/[address] PAIN NOS 06/07/2016 AMI MEZA MD Ot 717. 5 DERANGEMENT MENISCUS NEC 06/07/2016 VINCE MEJIA MD (DDU) Ot V68.01 DISABILITY EXAMINATION 06/07/2016 VINCE MEJIA MD (DDU) Ot V82.89 SCREEN FOR OTH SPECIF CONDITIONS 06/07/2016 MARIA TERESA ROD MD (DDU) Ot V68.01 DISABILITY EXAMINATION 06/07/2016 MARIA TERESA ROD MD (DDU) Ot V82.89 SCREEN FOR OTH SPECIF CONDITIONS 06/24/2016 ERICA BOWMAN MD Ot E11. 22 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 CANNER 06/24/2016 ERICA BOWMAN MD Ot E66. 9 OBESITY, UNSPECIFIED 06/24/2016 ERICA BOWMAN MD Ot E78. 5 HYPERLIPIDEMIA, UNSPECIFIED 06/24/2016 ERICA BOWMAN MD Ot I12. 9 HYPERTENSIVE CHRONIC KIDNEY DISEASE W ST 06/24/2016 ERICA BOWMAN MD Ot I25.110 ATHSCL HEART DISEASE OF [place] COR ART W 06/24/2016 ERICA BOWMAN MD Ot N18. 9 CHRONIC KIDNEY DISEASE, UNSPECIFIED 06/24/2016 ERICA BOWMAN MD Ot T82.855A STENOSIS OF CORONARY ARTERY STENT, INITI 06/24/2016 ERICA BOWMAN MD Ot Z68. 38 BODY MASS INDEX (BMI) 38.0-38.9, ADULT 06/24/2016 ERICA BOWMAN MD, Ot Z72. 0 TOBACCO USE 06/24/2016 ERICA BOWMAN MD, Ot Z79. 84 GROUP HOME (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 ORAL HYPOGLYC 06/24/2016 ERICA BOWMAN MD, Ot Z79.899 OTHER GROUP HOME (CURRENT) DRUG THERAPY 08/03/2016 DENISA FU Ot I25.10 ATHSCL HEART DISEASE OF [place] CORONARY 08/03/2016 SCOTTY DARLING DENISA K Ot K21.9 GASTRO-ESOPHAGEAL REFLUX DISEASE WITHOUT 08/03/2016 SCOTTY DARLING DENISA K Ot N18.9 CHRONIC KIDNEY DISEASE, UNSPECIFIED 08/03/2016 SCOTTY DARLING DENISA Zehra Ot R07.89 OTHER CHEST PAIN 08/04/2016 SCOTTY DARLING DENISA Zehra Ot I25.10 ATHSCL HEART DISEASE OF [place] CORONARY 08/04/2016 SCOTTY DARLING DENISA K Ot K21.9 GASTRO-ESOPHAGEAL REFLUX DISEASE WITHOUT 08/04/2016 SCOTTY DARLING DENISA K Ot N18.9 CHRONIC KIDNEY DISEASE, UNSPECIFIED 08/04/2016 SCOTTY DARLING DENISA Zehra Ot R07.89 OTHER CHEST PAIN 08/04/2016 Ot 414.9 CHR ISCHEMIC HRT DIS NOS 08/04/[address] PAIN NOS 08/04/2016 AMI MEZA MD Ot 717. 5 DERANGEMENT MENISCUS NEC 08/04/2016 VINCE MEJIA MD (DDU) Ot V68.01 DISABILITY EXAMINATION 08/04/2016 VINCE MEJIA MD (DDU) Ot V82.89 SCREEN FOR OTH SPECIF CONDITIONS 08/04/2016 MARIA TERESA ROD MD (DDU) Ot V68.01 DISABILITY EXAMINATION 08/04/2016 MARIA TERESA ROD MD (DDU) Ot V82.89 SCREEN FOR OTH SPECIF CONDITIONS 08/04/2016 ERICA BOWMAN MD Ot E11. 9 TYPE 2 DIABETES MELLITUS WITHOUT COMPLIC 08/04/2016 ERICA BOWMAN MD Ot E78. 5 HYPERLIPIDEMIA, UNSPECIFIED 08/04/2016 ERICA BOWMAN MD Ot I10 ESSENTIAL (PRIMARY) HYPERTENSION 08/04/2016 ERICA BOWMAN MD Ot I25. 10 ATHSCL HEART DISEASE OF [place] CORONARY 08/04/2016 ERICA BOWMAN MD Ot R07. 89 OTHER CHEST PAIN 08/04/2016 ERICA BOWMAN MD Ot R35. 8 OTHER POLYURIA 08/04/2016 ERICA BOWMAN MD, Ot Z53. 09 PROC/TRTMT NOT CARRIED OUT BECAUSE OF CO 08/04/2016 ERICA BOWMAN MD, Ot Z72. 0 TOBACCO USE 08/04/2016 ERICA BOWMAN MD, Ot Z79. 4 DRIVING INSTRUCTOR (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 08/04/2016 ERICA BOWMAN MD Ot Z79.899 OTHER GROUP HOME (CURRENT) DRUG THERAPY 08/04/2016 ERICA BOWMAN MD Ot Z95. 5 PRESENCE OF CORONARY ANGIOPLASTY IMPLANT 08/04/2016 DENISA FU Ot I25.10 ATHSCL HEART DISEASE OF [place] CORONARY 08/04/2016 DENISA FU Ot K21.9 GASTRO-ESOPHAGEAL REFLUX DISEASE WITHOUT 08/04/2016 DENISA FU Ot N18.9 CHRONIC KIDNEY DISEASE, UNSPECIFIED 08/04/2016 DENISA FU Ot R07.89 OTHER CHEST PAIN 08/05/2016 ERICA BOWMAN MD Ot E11. 22 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 CANNER 08/05/2016 ERICA BOWMAN MD Ot E66. 9 OBESITY, UNSPECIFIED 08/05/2016 ERICA BOWMAN MD Ot E78. 5 HYPERLIPIDEMIA, UNSPECIFIED 08/05/2016 ERICA BOWMAN MD Ot I12. 9 HYPERTENSIVE CHRONIC KIDNEY DISEASE W ST 08/05/2016 ERICA BOWMAN MD Ot I25. 10 ATHSCL HEART DISEASE OF [place] CORONARY 08/05/2016 ERICA BOWMAN MD Ot K21. 9 GASTRO-ESOPHAGEAL REFLUX DISEASE WITHOUT 08/05/2016 ERICA BOWMAN MD Ot N18. 9 CHRONIC KIDNEY DISEASE, UNSPECIFIED 08/05/2016 ERICA BOWMAN MD Ot Z68. 37 BODY MASS INDEX (BMI) 37.0-37.9, ADULT 08/05/2016 ERICA BOWMAN MD Ot Z72. 0 TOBACCO USE 08/05/2016 ERICA BOWMAN MD Ot Z79. 4 DRIVING INSTRUCTOR (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 08/05/2016 ERICA BOWMAN MD, Ot Z79.899 OTHER DRIVING INSTRUCTOR (CURRENT) DRUG THERAPY 08/05/2016 ERICA BOWMAN MD Ot Z95. 5 PRESENCE OF CORONARY ANGIOPLASTY IMPLANT 08/05/2016 ANGELIA CHAMORRO DO Ot A59.03 TRICHOMONAL [...] 08/05/2016 ASHTYN DO, ANGELIA K Ot Z79.4 GROUP HOME (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 08/05/2016 ASHTYN DO, ANGELIA K Ot Z79.899 OTHER DRIVING INSTRUCTOR (CURRENT) DRUG THERAPY 08/05/2016 ASHTYN DO, ANGELIA K Ot Z95.5 PRESENCE OF CORONARY ANGIOPLASTY IMPLANT 08/11/2016 ERICA BOWMAN MD Ot E11. 9 TYPE 2 DIABETES MELLITUS WITHOUT COMPLIC 08/11/2016 ERICA BOWMAN MD Ot E78. 5 HYPERLIPIDEMIA, UNSPECIFIED 08/11/2016 ERICA BOWMAN MD Ot I10 ESSENTIAL (PRIMARY) HYPERTENSION 08/11/2016 ERICA BOWMAN MD, Ot I25. 10 ATHSCL HEART DISEASE OF [place] CORONARY 08/11/2016 ERICA BOWMAN MD Ot R07. 89 OTHER CHEST PAIN 08/11/2016 ERICA BOWMAN MD Ot R35. 8 OTHER POLYURIA 08/11/2016 ERICA BOWMAN MD, Ot Z53. 09 PROC/TRTMT NOT CARRIED OUT BECAUSE OF CO 08/11/2016 ERICA BOWMAN MD Ot Z72. 0 TOBACCO USE 08/11/2016 ERICA BOWMAN MD, Ot Z79. 4 DRIVING INSTRUCTOR (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 08/11/2016 ERICA BOWMAN MD, Ot Z79.899 OTHER GROUP HOME (CURRENT) DRUG THERAPY 08/11/2016 ERICA BOWMAN MD Ot Z95. 5 PRESENCE OF CORONARY ANGIOPLASTY IMPLANT 08/11/2016 DENISA FU Ot I25.10 ATHSCL HEART DISEASE OF [place] CORONARY 08/11/2016 DENISA FU Ot K21.9 GASTRO-ESOPHAGEAL REFLUX DISEASE WITHOUT 08/11/2016 DENISA FU Ot N18.9 CHRONIC KIDNEY DISEASE, UNSPECIFIED 08/11/2016 DENISA FU Ot R07.89 OTHER CHEST PAIN 08/27/2016 ERICA BOWMAN MD Ot E78. 2 MIXED HYPERLIPIDEMIA 08/27/2016 ERICA BOWMAN MD Ot I10 ESSENTIAL (PRIMARY) HYPERTENSION 08/27/2016 ERICA BOWMAN MD Ot I25. 10 ATHSCL HEART DISEASE OF [place] CORONARY 08/27/2016 ERICA BOWMAN MD Ot R07. 89 OTHER CHEST PAIN 09/07/2016 ERICA BOWMAN MD Ot E78. 2 MIXED HYPERLIPIDEMIA 09/07/2016 ERICA BOWMAN MD Ot I10 ESSENTIAL (PRIMARY) HYPERTENSION 09/07/2016 ERICA BOWMAN MD Ot I25. 10 ATHSCL HEART DISEASE OF [place] CORONARY 09/07/2016 ERICA BOWMAN MD Ot R07. 89 OTHER CHEST PAIN 09/07/2016 ERICA BOWMAN MD Ot E78. 2 MIXED HYPERLIPIDEMIA 09/07/2016 ERICA BOWMAN MD Ot I10 ESSENTIAL (PRIMARY) HYPERTENSION 09/07/2016 ERICA BOWMAN MD Ot I25. 10 ATHSCL HEART DISEASE OF [place] CORONARY 09/07/2016 ERICA BOWMAN MD Ot R07. 89 OTHER CHEST PAIN 09/20/2016 Ot 414.9 CHR ISCHEMIC HRT DIS NOS 09/20/[address] PAIN NOS 09/20/2016 AMI MEZA MD Ot 717. 5 DERANGEMENT MENISCUS NEC 09/20/2016 VINCE MEJIA MD (DDU) Ot V68.01 DISABILITY EXAMINATION 09/20/2016 VINCE MEJIA MD (DDU) Ot V82.89 SCREEN FOR OTH SPECIF CONDITIONS 09/20/2016 MARIA TERESA ROD MD (DDU) Ot V68.01 DISABILITY EXAMINATION 09/20/2016 MARIA TERESA ROD MD (DDU) Ot V82.89 SCREEN FOR OTH SPECIF CONDITIONS 09/20/2016 ERICA BOWMAN MD Ot E11. 9 TYPE 2 DIABETES MELLITUS WITHOUT COMPLIC 09/20/2016 ERICA BOWMAN MD, Ot E78. 5 HYPERLIPIDEMIA, UNSPECIFIED 09/20/2016 ERICA BOWMAN MD Ot I10 ESSENTIAL (PRIMARY) HYPERTENSION 09/20/2016 ERICA BOWMAN MD Ot I25. 10 ATHSCL HEART DISEASE OF [place] CORONARY 09/20/2016 ERICA BOWMAN MD Ot R07. 89 OTHER CHEST PAIN 09/20/2016 ERICA BOWMAN MD Ot R35. 8 OTHER POLYURIA 09/20/2016 ERICA BOWMAN MD, Ot Z53. 09 PROC/TRTMT NOT CARRIED OUT BECAUSE OF CO 09/20/2016 ERICA BOWMAN MD, Ot Z72. 0 TOBACCO USE 09/20/2016 ERICA BOWMAN MD, Ot Z79. 4 DRIVING INSTRUCTOR (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 09/20/2016 ERICA BOWMAN MD, Ot Z79.899 OTHER GROUP HOME (CURRENT) DRUG THERAPY 09/20/2016 ERICA BOWMAN MD, Ot Z95. 5 PRESENCE OF CORONARY ANGIOPLASTY IMPLANT 09/20/2016 DENISA FU Ot I25.10 ATHSCL HEART DISEASE OF [place] CORONARY 09/20/2016 DENISA FU Ot K21.9 GASTRO-ESOPHAGEAL REFLUX DISEASE WITHOUT 09/20/2016 DENISA FU Ot N18.9 CHRONIC KIDNEY DISEASE, UNSPECIFIED 09/20/2016 DENISA FU Ot R07.89 OTHER CHEST PAIN 09/20/2016 ERICA BOWMAN MD Ot E78. 2 MIXED HYPERLIPIDEMIA 09/20/2016 ERICA BOWMAN MD Ot I10 ESSENTIAL (PRIMARY) HYPERTENSION 09/20/2016 ERICA BOWMAN MD Ot I25. 10 ATHSCL HEART DISEASE OF [place] CORONARY 09/20/2016 ERICA BOWMAN MD Ot R07. 89 OTHER CHEST PAIN 09/20/2016 CHARMAINE MERRILL DO Ot E11.65 TYPE 2 DIABETES MELLITUS WITH HYPERGLYCE 09/20/2016 CHARMAINE MERRILL DO Ot E78.5 HYPERLIPIDEMIA, UNSPECIFIED 09/20/2016 CHARMAINE MERRILL DO Ot F17.21 0 NICOTINE DEPENDENCE, CIGARETTES, UNCOMPL 09/20/2016 MERRILL DO, CHARMAINE K Ot G62.9 POLYNEUROPATHY, UNSPECIFIED 09/20/2016 CHARMAINE MERRILL DO K Ot I12.9 HYPERTENSIVE CHRONIC KIDNEY DISEASE W ST 09/20/2016 CHARMAINE MERRILL DO Ot I25.10 ATHSCL HEART DISEASE OF [place] CORONARY 09/20/2016 CHARMAINE MERRILL DO Ot M11.26 2 OTHER CHONDROCALCINOSIS, LEFT KNEE 09/20/2016 GARFIELD MAURICIO CHARMAINE Shahid Ot N18.9 CHRONIC KIDNEY DISEASE, UNSPECIFIED 09/20/2016 CHARMAINE MERRILL DO Ot T38.0X 5A ADVERSE EFFECT OF GLUCOCORT/SYNTH ANALOG 09/20/2016 GARFIELD MAURICIO CHARMAINE Shahid Ot Z79.4 GROUP HOME (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 09/20/2016 GARFIELD MAURICIO CHARMAINE K Ot Z95.5 PRESENCE OF CORONARY ANGIOPLASTY IMPLANT 12/01/2016 JUAN PAYNE MD Ot E11.21 TYPE 2 DIABETES MELLITUS WITH DIABETIC N 12/01/2016 JUAN PAYNE MD Ot I12.9 HYPERTENSIVE CHRONIC KIDNEY DISEASE W ST 12/01/2016 JUAN PAYNE MD Ot N18.3 CHRONIC KIDNEY DISEASE, STAGE 3 (MODERAT 12/01/2016 JUAN PAYNE MD Ot N20.0 CALCULUS OF KIDNEY 12/01/2016 JUAN PAYNE MD Ot R80.9 PROTEINURIA, UNSPECIFIED 12/02/2016 CHAPARRO MUJICA Ot E11.9 TYPE 2 DIABETES MELLITUS WITHOUT COMPLIC 12/02/2016 CHAPARRO MUJICA Ot I12.9 HYPERTENSIVE CHRONIC KIDNEY DISEASE W ST 12/02/2016 CHAPARRO MUJICA Ot N18.3 CHRONIC KIDNEY DISEASE, STAGE 3 (MODERAT 12/02/2016 CHAPARRO MUJICA Ot N20.0 CALCULUS OF KIDNEY 12/02/2016 CHAPARRO MUJICA Ot R80.9 PROTEINURIA, UNSPECIFIED 12/07/2016 JUAN PAYNE MD Ot E11.9 TYPE 2 DIABETES MELLITUS WITHOUT COMPLIC 12/07/2016 JUAN PAYNE MD Ot I12.9 HYPERTENSIVE CHRONIC KIDNEY DISEASE W ST 12/07/2016 JUAN PAYNE MD Ot N18.3 CHRONIC KIDNEY DISEASE, STAGE 3 (MODERAT 12/07/2016 JUAN PAYNE MD Ot N20.0 CALCULUS OF KIDNEY 12/07/2016 ELMER KRAMER, JUAN Ot R80.9 PROTEINURIA, UNSPECIFIED 12/07/2016 ELMER KRAMER, JUAN Ot E11.21 TYPE 2 DIABETES MELLITUS WITH DIABETIC N 12/07/2016 ELMER KRAMER, JUAN Ot I12.9 HYPERTENSIVE CHRONIC KIDNEY DISEASE W ST 12/07/2016 JUAN PAYNE MD Ot N18.3 CHRONIC KIDNEY DISEASE, STAGE 3 (MODERAT 12/07/2016 ELMER KRAMER, JUAN Ot N20.0 CALCULUS OF KIDNEY 12/07/2016 ELMER KRAMER, JUAN Ot R80.9 PROTEINURIA, UNSPECIFIED 12/07/2016 CHAPARRO MUJICA BULK SYSTEM OPERATOR Ot E11.9 TYPE 2 DIABETES MELLITUS WITHOUT COMPLIC 12/07/2016 CHAPARRO MUJICA BULK SYSTEM OPERATOR Ot I12.9 HYPERTENSIVE CHRONIC KIDNEY DISEASE W ST 12/07/2016 CHAPARRO MUJICA BULK SYSTEM OPERATOR Ot N18.3 CHRONIC KIDNEY DISEASE, STAGE 3 (MODERAT 12/07/2016 CHAPARRO MUJICA BULK SYSTEM OPERATOR Ot N20.0 CALCULUS OF KIDNEY 12/07/2016 CHAPARRO MUJICAP Ot R80.9 PROTEINURIA, UNSPECIFIED 12/17/2016 JUAN PAYNE MD Ot E11.21 TYPE 2 DIABETES MELLITUS WITH DIABETIC N 12/17/2016 JUAN PAYNE MD Ot I12.9 HYPERTENSIVE CHRONIC KIDNEY DISEASE W ST 12/17/2016 JUAN PAYNE MD Ot N18.3 CHRONIC KIDNEY DISEASE, STAGE 3 (MODERAT 12/17/2016 JUAN PAYNE MD Ot N20.0 CALCULUS OF KIDNEY 12/17/2016 JUAN PAYNE MD Ot R80.9 PROTEINURIA, UNSPECIFIED 02/08/2017 CHAPARRO MUJICA BULK SYSTEM OPERATOR Ot E11.9 TYPE 2 DIABETES MELLITUS WITHOUT COMPLIC 02/08/2017 CHAPARRO MUJICA BULK SYSTEM OPERATOR Ot I12.9 HYPERTENSIVE CHRONIC KIDNEY DISEASE W ST 02/08/2017 CHAPARRO MUJICA BULK SYSTEM OPERATOR Ot N18.3 CHRONIC KIDNEY DISEASE, STAGE 3 (MODERAT 02/08/2017 CHAPARRO MUJICAP Ot N20.0 CALCULUS OF KIDNEY 02/08/2017 CHAPARRO MUJICA Ot R80.9 PROTEINURIA, UNSPECIFIED 02/08/2017 BENJAIMN ANAND APRN Ot E11.22 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 CANNER 02/08/2017 BENJAMIN ANAND APRN Ot E11.40 TYPE 2 DIABETES MELLITUS WITH DIABETIC N 02/08/2017 BENJAMIN ANAND APRN Ot E78.00 PURE HYPERCHOLESTEROLEMIA, UNSPECIFIED 02/08/2017 BENJAMIN ANAND APRN Ot F41 .9 ANXIETY DISORDER, UNSPECIFIED 02/08/2017 BENJAMIN ANAND APRN Ot I12 .9 HYPERTENSIVE CHRONIC KIDNEY DISEASE W ST 02/08/2017 BENJAMIN ANAND APRN Ot I25.10 ATHSCL HEART DISEASE OF [place] CORONARY 02/08/2017 BENJAMIN ANAND APRN Ot K21 .9 GASTRO-ESOPHAGEAL REFLUX DISEASE WITHOUT 02/08/2017 BENJAMIN ANAND APRN Ot M11.262 OTHER CHONDROCALCINOSIS, LEFT KNEE 02/08/2017 BENJAMIN ANAND APRN Ot M25.462 EFFUSION, LEFT KNEE 02/08/2017 BENJAMIN ANAND APRN Ot N18 .9 CHRONIC KIDNEY DISEASE, UNSPECIFIED 02/08/2017 BENJAMIN ANAND APRN Ot Z77.22 CNTCT W AND EXPSR TO ENVIRON TOBACCO SMO 02/08/2017 BENJAMIN ANAND APRN Ot Z79 .4 GROUP HOME (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 02/08/2017 BENJAMIN ANAND APRN Ot Z82.49 FAMILY HX OF ISCHEM HEART DIS AND OTH DI 02/08/2017 BENJAMIN ANAND APRN Ot Z87.19 PERSONAL HISTORY OF OTHER DISEASES OF TH 02/08/2017 BENJAMIN ANAND APRN Ot Z87.442 PERSONAL HISTORY OF URINARY CALCULI 02/08/2017 BENJAMIN ANAND APRN Ot Z95 .5 PRESENCE OF CORONARY ANGIOPLASTY IMPLANT 02/08/2017 CHAPARRO MUJICAP Ot E11.9 TYPE 2 DIABETES MELLITUS WITHOUT COMPLIC 02/08/2017 CHAPARRO MUJICAP Ot I12.9 HYPERTENSIVE CHRONIC KIDNEY DISEASE W ST 02/08/2017 CHAPARRO MUJICA Ot N18.3 CHRONIC KIDNEY DISEASE, STAGE 3 (MODERAT 02/08/2017 CHAPARRO MUJICA BULK SYSTEM OPERATOR Ot N20.0 CALCULUS OF KIDNEY 02/08/2017 CHAPARRO MUJICA BULK SYSTEM OPERATOR Ot R80.9 PROTEINURIA, UNSPECIFIED 02/13/2017 CHAPARRO MUJICA BULK SYSTEM OPERATOR Ot E11.9 TYPE 2 DIABETES MELLITUS WITHOUT COMPLIC 02/13/2017 CHAPARRO MUJICA BULK SYSTEM OPERATOR Ot I12.9 HYPERTENSIVE CHRONIC KIDNEY DISEASE W ST 02/13/2017 CHAPARRO MUJICA BULK SYSTEM OPERATOR Ot N18.3 CHRONIC KIDNEY DISEASE, STAGE 3 (MODERAT 02/13/2017 CHAPARRO MUJICA BULK SYSTEM OPERATOR Ot N20.0 CALCULUS OF KIDNEY 02/13/2017 CHAPARRO MUJICA BULK SYSTEM OPERATOR Ot R80.9 PROTEINURIA, UNSPECIFIED 02/13/2017 ASHTYN DO, ANGELIA K Ot E11.22 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 CANNER 02/13/2017 ASHTYN DO, ANGELIA K Ot E11.40 TYPE 2 DIABETES MELLITUS WITH DIABETIC N 02/13/2017 ASHTYN DO, ANGELIA K Ot E78.00 PURE HYPERCHOLESTEROLEMIA, UNSPECIFIED 02/13/2017 ASHTYN DO, ANGELIA K Ot F12.10 CANNABIS ABUSE, UNCOMPLICATED 02/13/2017 ASHTYN DO, ANGELIA K Ot F17.210 NICOTINE DEPENDENCE, CIGARETTES, UNCOMPL 02/13/2017 ASHTYN DO, ANGELIA K Ot F41.9 ANXIETY DISORDER, UNSPECIFIED 02/13/2017 ASHTYN DO, ANGELIA K Ot G89.29 OTHER CHRONIC PAIN 02/13/2017 ASHTYN DO, ANGELIA K Ot I12.9 HYPERTENSIVE CHRONIC KIDNEY DISEASE W ST 02/13/2017 ASHTYN DO, ANGELIA K Ot I25.10 ATHSCL HEART DISEASE OF [place] CORONARY 02/13/2017 ASHTYN DO, ANGELIA K Ot K21.9 GASTRO-ESOPHAGEAL REFLUX DISEASE WITHOUT 02/13/2017 ASHTYN DO, ANGELIA K Ot M25.462 EFFUSION, LEFT KNEE 02/13/2017 ASHTYN DO, ANGELIA K Ot M25.562 PAIN IN LEFT KNEE 02/13/2017 ASHTYN DO, ANGELIA K Ot N18.9 CHRONIC KIDNEY DISEASE, UNSPECIFIED 02/13/2017 ASHTYN DO, ANGELIA K Ot Z79.4 DRIVING INSTRUCTOR (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 02/13/2017 ANGELIA CHAMORRO DO Ot Z79.82 DRIVING INSTRUCTOR (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 ASPIRIN 02/13/2017 ANGELIA CHAMORRO DO Ot Z82.49 FAMILY HX OF ISCHEM HEART DIS AND OTH DI 02/13/2017 ANGELIA CHAMORRO DO Ot Z95.5 PRESENCE OF CORONARY ANGIOPLASTY IMPLANT 02/13/2017 ANGELIA CHAMORRO DO Ot Z96.0 PRESENCE OF UROGENITAL IMPLANTS 07/07/2017 VINCE MEJIA MD (DDU) Ot Z02.71 ENCOUNTER FOR DISABILITY DETERMINATION 07/07/2017 VINCE MEJIA MD (DDU) Ot Z02.71 ENCOUNTER FOR DISABILITY DETERMINATION 07/13/2017 VINCE MEJIA MD (DDU) Ot Z02.71 ENCOUNTER FOR DISABILITY DETERMINATION 08/04/2017 VINCE MEJIA MD (DDU) Ot Z02.71 ENCOUNTER FOR DISABILITY DETERMINATION 12/06/2017 VINCE MEJIA MD (DDU) Ot Z02.71 ENCOUNTER FOR DISABILITY DETERMINATION 12/06/2017 ROSALIE BURDICK MD Ot E11.22 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 CANNER 12/06/2017 ROSALIE BURDICK MD Ot E78.00 PURE HYPERCHOLESTEROLEMIA, UNSPECIFIED 12/06/2017 ROSALIE BURDICK MD Ot F12.10 CANNABIS ABUSE, UNCOMPLICATED 12/06/2017 ROSALEI BURDICK MD Ot F41.9 ANXIETY DISORDER, UNSPECIFIED 12/06/2017 ROSALIE BURDICK MD Ot I12.9 HYPERTENSIVE CHRONIC KIDNEY DISEASE W ST 12/06/2017 ROSALIE BURDICK MD Ot I25.10 ATHSCL HEART DISEASE OF [place] CORONARY 12/06/2017 ROSALIE BURDICK MD Ot K21.9 GASTRO-ESOPHAGEAL REFLUX DISEASE WITHOUT 12/06/2017 ROSALIE BURDICK MD Ot M10.9 GOUT, UNSPECIFIED 12/06/2017 ROSALIE BURDICK MD Ot N17.9 ACUTE KIDNEY FAILURE, UNSPECIFIED 12/06/2017 ROSALIE BURDICK MD Ot N18.9 CHRONIC KIDNEY DISEASE, UNSPECIFIED 12/06/2017 ROSALIE BURDICK MD Ot R07.89 OTHER CHEST PAIN 12/06/2017 ROSALIE BURDICK MD Ot Z77.22 CNTCT W AND EXPSR TO ENVIRON TOBACCO SMO 12/06/2017 ROSALIE BURDICK MD Ot Z79.4 GROUP HOME (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 12/06/2017 ROSALIE BURDICK MD Ot Z79.52 GROUP HOME (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 SYSTEMIC STER 12/06/2017 ROSALIE BURDICK MD, Ot Z79.82 DRIVING INSTRUCTOR (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 ASPIRIN 12/06/2017 ROSALIE BURDICK MD Ot Z82.49 FAMILY HX OF ISCHEM HEART DIS AND OTH DI 12/06/2017 ROSALIE BURDICK MD, Ot Z87.442 PERSONAL HISTORY OF URINARY CALCULI 12/06/2017 ROSALIE BURDICK MD, Ot Z90.49 ACQUIRED ABSENCE OF OTHER SPECIFIED PART 12/06/2017 ROSALIE BURDICK MD, Ot Z95.5 PRESENCE OF CORONARY ANGIOPLASTY IMPLANT 12/08/2017 ROSALIE BURDICK MD Ot E11.22 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 CANNER 12/08/2017 ROSALIE BURDICK MD Ot E78.00 PURE HYPERCHOLESTEROLEMIA, UNSPECIFIED 12/08/2017 ROSALIE BURDICK MD Ot F12.10 CANNABIS ABUSE, UNCOMPLICATED 12/08/2017 ROSALIE BURDCIK MD Ot F41.9 ANXIETY DISORDER, UNSPECIFIED 12/08/2017 ROSALIE BURDICK MD Ot I12.9 HYPERTENSIVE CHRONIC KIDNEY DISEASE W ST 12/08/2017 ROSALIE BURDICK MD Ot I25.10 ATHSCL HEART DISEASE OF [place] CORONARY 12/08/2017 ROSALIE BURDICK MD Ot K21.9 GASTRO-ESOPHAGEAL REFLUX DISEASE WITHOUT 12/08/2017 ROSALIE BURDICK MD Ot M10.9 GOUT, UNSPECIFIED 12/08/2017 ROSALIE BURDICK MD Ot N17.9 ACUTE KIDNEY FAILURE, UNSPECIFIED 12/08/2017 ROSALIE BURDICK MD, Ot N18.9 CHRONIC KIDNEY DISEASE, UNSPECIFIED 12/08/2017 ROSALIE BURDICK MD Ot R07.89 OTHER CHEST PAIN 12/08/2017 ROSALIE BURDICK MD Ot Z77.22 CNTCT W AND EXPSR TO ENVIRON TOBACCO SMO 12/08/2017 ROSALIE BURDICK MD Ot Z79.4 GROUP HOME (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 12/08/2017 ROSALIE BURDICK MD, Ot Z79.52 DRIVING INSTRUCTOR (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 SYSTEMIC STER 12/08/2017 ROSALIE BURDICK MD, Ot Z79.82 GROUP HOME (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 ASPIRIN 12/08/2017 ROSALIE BURDICK MD, Ot Z82.49 FAMILY HX OF ISCHEM HEART DIS AND OTH DI 12/08/2017 ROSALIE BURDICK MD, Ot Z87.442 PERSONAL HISTORY OF URINARY CALCULI 12/08/2017 ROSALIE BURDICK MD, Ot Z90.49 ACQUIRED ABSENCE OF OTHER SPECIFIED PART 12/08/2017 ROSALIE BURDICK MD, Ot Z95.5 PRESENCE OF CORONARY ANGIOPLASTY IMPLANT 12/12/2017 ROSALIE BURDICK MD, Ot E11.22 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 CANNER 12/12/2017 ROSALIE BURDICK MD, Ot E78.00 PURE HYPERCHOLESTEROLEMIA, UNSPECIFIED 12/12/2017 ROSALIE BURDICK MD Ot F12.10 CANNABIS ABUSE, UNCOMPLICATED 12/12/2017 ROSALIE BURDICK MD Ot F41.9 ANXIETY DISORDER, UNSPECIFIED 12/12/2017 ROSALIE BURDICK MD Ot I12.9 HYPERTENSIVE CHRONIC KIDNEY DISEASE W ST 12/12/2017 ROSALIE BURDICK MD, Ot I25.10 ATHSCL HEART DISEASE OF [place] CORONARY 12/12/2017 ROSALIE BURDICK MD Ot K21.9 GASTRO-ESOPHAGEAL REFLUX DISEASE WITHOUT 12/12/2017 ROSALIE BURDICK MD Ot M10.9 GOUT, UNSPECIFIED 12/12/2017 ROSALIE BURDICK MD, Ot N17.9 ACUTE KIDNEY FAILURE, UNSPECIFIED 12/12/2017 ROSALIE BURDICK MD, Ot N18.9 CHRONIC KIDNEY DISEASE, UNSPECIFIED 12/12/2017 ROSALIE BURDICK MD Ot R07.89 OTHER CHEST PAIN 12/12/2017 ROSALIE BURDICK MD Ot Z77.22 CNTCT W AND EXPSR TO ENVIRON TOBACCO SMO 12/12/2017 ROSALIE BURDICK MD, Ot Z79.4 DRIVING INSTRUCTOR (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 12/12/2017 ROSALIE BURDICK MD, Ot Z79.52 GROUP HOME (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 SYSTEMIC STER 12/12/2017 ROSALIE BURDICK MD, Ot Z79.82 DRIVING INSTRUCTOR (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 ASPIRIN 12/12/2017 ROSALIE BURDICK MD, Ot Z82.49 FAMILY HX OF ISCHEM HEART DIS AND OTH DI 12/12/2017 ROSALIE BURDICK MD, Ot Z87.442 PERSONAL HISTORY OF URINARY CALCULI 12/12/2017 ROSALIE BURDICK MD, Ot Z90.49 ACQUIRED ABSENCE OF OTHER SPECIFIED PART 12/12/2017 ROSALIE BURDICK MD Ot Z95.5 PRESENCE OF CORONARY ANGIOPLASTY IMPLANT 01/09/2018 VINCE MEJIA MD (DDU) Ot Z02.71 ENCOUNTER FOR DISABILITY DETERMINATION 01/16/2018 VINCE MEJIA MD (DDU) Ot Z02.71 ENCOUNTER FOR DISABILITY DETERMINATION 01/17/2018 VINCE MEJIA MD (DDU) Ot Z02.71 ENCOUNTER FOR DISABILITY DETERMINATION 01/17/2018 ROLAND GOODEN Ot E11.40 TYPE 2 DIABETES MELLITUS WITH DIABETIC N 01/17/2018 ELMER GOODENIS Ot E78.00 PURE HYPERCHOLESTEROLEMIA, UNSPECIFIED 01/17/2018 ELMER GOODENIS Ot F41.9 ANXIETY DISORDER, UNSPECIFIED 01/17/2018 GIACOMO ROLAND Ot G89.29 OTHER CHRONIC PAIN 01/17/2018 GIACOMO ROLAND Ot I10 ESSENTIAL (PRIMARY) HYPERTENSION 01/17/2018 ELMER GOODENIS Ot I25.10 ATHSCL HEART DISEASE OF [place] CORONARY 01/17/2018 GIACOMO ROLAND Ot K21.9 GASTRO-ESOPHAGEAL REFLUX DISEASE WITHOUT 01/17/2018 GIACOMO ROLAND Ot M10.9 GOUT, UNSPECIFIED 01/17/2018 ELMER GOODENIS Ot M25.561 PAIN IN RIGHT KNEE 01/17/2018 GIACOMO ROLAND Ot 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 01/17/2018 ELMER GOODENIS Ot Z77.22 CNTCT W AND EXPSR TO ENVIRON TOBACCO SMO 01/17/2018 ELMER GOODENIS Ot Z79.02 DRIVING INSTRUCTOR (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 ANTITHROMBOTI 01/17/2018 ELMER GOODENIS Ot Z79.4 DRIVING INSTRUCTOR (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 01/17/2018 ELMER GOODENIS Ot Z79.52 GROUP HOME (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 SYSTEMIC STER 01/17/2018 ELMER GOODENIS Ot Z79.82 GROUP HOME (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 ASPIRIN 01/17/2018 GIACOMO ROLAND Ot Z82.49 FAMILY HX OF ISCHEM HEART DIS AND OTH DI 01/17/2018 ELMER GOODENIS Ot Z87.442 PERSONAL HISTORY OF URINARY CALCULI 01/17/2018 BERNELMER NEGRETEIS Ot Z87.448 PERSONAL HISTORY OF OTHER DISEASES OF UR 01/17/2018 ELMER GOODENIS Ot Z95.5 PRESENCE OF CORONARY ANGIOPLASTY IMPLANT 01/17/2018 ELMER GOODENIS Ot Z95.9 PRESENCE OF CARDIAC AND VASCULAR IMPLANT 01/19/2018 BERNCADEN ROLAND Ot E11.40 TYPE 2 DIABETES MELLITUS WITH DIABETIC N 01/19/2018 BERNCADEN ROLAND Ot E78.00 PURE HYPERCHOLESTEROLEMIA, UNSPECIFIED 01/19/2018 GIACOMO ROLAND Ot F41.9 ANXIETY DISORDER, UNSPECIFIED 01/19/2018 ELMER GOODENIS Ot G89.29 OTHER CHRONIC PAIN 01/19/2018 GIACOMO ROLAND Ot I10 ESSENTIAL (PRIMARY) HYPERTENSION 01/19/2018 ELMER GOODENIS Ot I25.10 ATHSCL HEART DISEASE OF [place] CORONARY 01/19/2018 GIACOMO ROLAND Ot K21.9 GASTRO-ESOPHAGEAL REFLUX DISEASE WITHOUT 01/19/2018 GIACOMO ROLAND Ot M10.9 GOUT, UNSPECIFIED 01/19/2018 GIACOMO ROLAND Ot M25.561 PAIN IN RIGHT KNEE 01/19/2018 GIACOMO ROLAND Ot 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 01/19/2018 GIACOMO ROLAND Ot Z77.22 CNTCT W AND EXPSR TO ENVIRON TOBACCO SMO 01/19/2018 GIACOMO ROLAND Ot Z79.02 DRIVING INSTRUCTOR (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 ANTITHROMBOTI 01/19/2018 GIACOMO, ROLAND Ot Z79.4 DRIVING INSTRUCTOR (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 01/19/2018 ELMER GOODENIS Ot Z79.52 DRIVING INSTRUCTOR (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 SYSTEMIC STER 01/19/2018 GIACOMO, ROLAND Ot Z79.82 GROUP HOME (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 ASPIRIN 01/19/2018 GIACOMO, ROLAND Ot Z82.49 FAMILY HX OF ISCHEM HEART DIS AND OTH DI 01/19/2018 ELMER GOODENIS Ot Z87.442 PERSONAL HISTORY OF URINARY CALCULI 01/19/2018 ELMER GOODENIS Ot Z87.448 PERSONAL HISTORY OF OTHER DISEASES OF UR 01/19/2018 ELMER GOODENIS Ot Z95.5 PRESENCE OF CORONARY ANGIOPLASTY IMPLANT 01/19/2018 ROLAND GOODEN Ot Z95.9 PRESENCE OF CARDIAC AND VASCULAR IMPLANT 01/25/2018 DENISA FU Ot E13.9 OTHER SPECIFIED DIABETES MELLITUS WITHOU 01/25/2018 DENISA FU Ot E78.2 MIXED HYPERLIPIDEMIA 01/25/2018 DENISA FU K Ot I08.3 COMB RHEUMATIC DISORD OF MITRAL, AORTIC 01/25/2018 DENISA FU K Ot I12.9 HYPERTENSIVE CHRONIC KIDNEY DISEASE W ST 01/25/2018 DENISA FU Ot I25.10 ATHSCL HEART DISEASE OF [place] CORONARY 01/25/2018 DENISA FU Ot N18.9 CHRONIC KIDNEY DISEASE, UNSPECIFIED 02/13/2018 DENISA FU K Ot E13.9 OTHER SPECIFIED DIABETES MELLITUS WITHOU 02/13/2018 DENISA FU K Ot E78.2 MIXED HYPERLIPIDEMIA 02/13/2018 DENISA FU K Ot I08.3 COMB RHEUMATIC DISORD OF MITRAL, AORTIC 02/13/2018 DENSIA FU K Ot I12.9 HYPERTENSIVE CHRONIC KIDNEY DISEASE W ST 02/13/2018 DENISA FU K Ot I25.10 ATHSCL HEART DISEASE OF [place] CORONARY 02/13/2018 DENISA FU K Ot N18.9 CHRONIC KIDNEY DISEASE, UNSPECIFIED 03/24/2018 ELMER KRAMER, RYAN S Ot E11.22 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 CANNER 03/24/2018 ELMER KRAMER, RYAN S Ot I12.9 HYPERTENSIVE CHRONIC KIDNEY DISEASE W ST 03/24/2018 ELMER KRAMER, RYAN S Ot N17.9 ACUTE KIDNEY FAILURE, UNSPECIFIED 03/24/2018 ELMER KRAMER, RYAN S Ot N18.3 CHRONIC KIDNEY DISEASE, STAGE 3 (MODERAT 03/24/2018 ELMER KRAMER, EPIFANIOMED S Ot N20.0 CALCULUS OF KIDNEY 03/24/2018 ELMER KRAMER, RYAN Camacho Ot R60.9 EDEMA, UNSPECIFIED 03/24/2018 ELMER KRAMER, RYAN Camacho Ot R80.9 PROTEINURIA, UNSPECIFIED 04/07/2018 ELMER KRAMER, RYAN Camacho Ot E11.22 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 CANNER 04/07/2018 ELMER KRAMER, RYAN Camacho Ot I12.9 HYPERTENSIVE CHRONIC KIDNEY DISEASE W ST 04/07/2018 ELMER KRAMER, RYAN Camacho Ot N17.9 ACUTE KIDNEY FAILURE, UNSPECIFIED 04/07/2018 ELMER KRAMER, RYAN S Ot N18.3 CHRONIC KIDNEY DISEASE, STAGE 3 (MODERAT 04/07/2018 ELMER KRAMER, RYAN Camacho Ot N20.0 CALCULUS OF KIDNEY 04/07/2018 ELMER KRAMER, RYAN Camacho Ot R60.9 EDEMA, UNSPECIFIED 04/07/2018 ELMER KRAMER, RYAN Camacho Ot R80.9 PROTEINURIA, UNSPECIFIED 06/12/2018 ROSALIE BURDICK MD Ot E11.22 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 CANNER 06/12/2018 ROSALIE BURDICK MD Ot E78.00 PURE HYPERCHOLESTEROLEMIA, UNSPECIFIED 06/12/2018 ROSALIE BURDICK MD Ot F12.10 CANNABIS ABUSE, UNCOMPLICATED 06/12/2018 ROSALIE BURDICK MD Ot F17.210 NICOTINE DEPENDENCE, CIGARETTES, UNCOMPL 06/12/2018 ROSALIE BURDICK MD Ot F41.9 ANXIETY DISORDER, UNSPECIFIED 06/12/2018 ROSALIE BURDICK MD Ot I12.0 HYP CHR KIDNEY DISEASE W STAGE 5 CHR KID 06/12/2018 ROSALIE BURDICK MD Ot I25.10 ATHSCL HEART DISEASE OF [place] CORONARY 06/12/2018 ROSALIE BURDICK MD Ot K21.9 GASTRO-ESOPHAGEAL REFLUX DISEASE WITHOUT 06/12/2018 ROSALIE BURDICK MD Ot M10.9 GOUT, UNSPECIFIED 06/12/2018 ROSALIE BURDICK MD Ot N17.9 ACUTE KIDNEY FAILURE, UNSPECIFIED 06/12/2018 ROSALIE BURDICK MD Ot N18.6 END STAGE RENAL DISEASE 06/12/2018 ROSALIE BURDICK MD Ot R10.13 EPIGASTRIC PAIN 06/12/2018 ROSALIE BURDICK MD, Ot Z79.02 GROUP HOME (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 ANTITHROMBOTI 06/12/2018 ROSALIE BURDICK MD, Ot Z79.82 GROUP HOME (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 ASPIRIN 06/12/2018 ROSALIE BURDICK MD Ot Z82.49 FAMILY HX OF ISCHEM HEART DIS AND OTH DI 06/12/2018 ROSALIE BURDICK MD, Ot Z87.19 PERSONAL HISTORY OF OTHER DISEASES OF TH 06/12/2018 ROSALIE BURDICK MD, Ot Z87.442 PERSONAL HISTORY OF URINARY CALCULI 06/12/2018 ROSALIE BURDICK MD, Ot Z90.49 ACQUIRED ABSENCE OF OTHER SPECIFIED PART 06/12/2018 ROSALIE BURDICK MD, Ot Z95.9 PRESENCE OF CARDIAC AND VASCULAR IMPLANT 06/12/2018 ROSALIE BURDICK MD, Ot Z98.890 OTHER SPECIFIED POSTPROCEDURAL STATES 06/12/2018 ROSALIE BURDICK MD, Ot Z99.2 DEPENDENCE ON RENAL DIALYSIS 06/14/2018 ROSALIE BURDICK MD Ot E11.22 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 CANNER 06/14/2018 ROSALIE BURDICK MD Ot E78.00 PURE HYPERCHOLESTEROLEMIA, UNSPECIFIED 06/14/2018 ROSALIE BURDICK MD Ot F12.10 CANNABIS ABUSE, UNCOMPLICATED 06/14/2018 ROSALIE BURDICK MD Ot F17.210 NICOTINE DEPENDENCE, CIGARETTES, UNCOMPL 06/14/2018 ROSALIE BURDICK MD Ot F41.9 ANXIETY DISORDER, UNSPECIFIED 06/14/2018 ROSALIE BURDICK MD Ot I12.0 HYP CHR KIDNEY DISEASE W STAGE 5 CHR KID 06/14/2018 ROSALIE BURDICK MD Ot I25.10 ATHSCL HEART DISEASE OF [place] CORONARY 06/14/2018 ROSALIE BURDICK MD Ot K21.9 GASTRO-ESOPHAGEAL REFLUX DISEASE WITHOUT 06/14/2018 ROSALIE BURDICK MD Ot M10.9 GOUT, UNSPECIFIED 06/14/2018 ROSALIE BURDICK MD Ot N17.9 ACUTE KIDNEY FAILURE, UNSPECIFIED 06/14/2018 ROSALIE BURDICK MD Ot N18.6 END STAGE RENAL DISEASE 06/14/2018 ROSALIE BURDICK MD, Ot R10.13 EPIGASTRIC PAIN 06/14/2018 ROSALIE BURDICK MD, Ot Z79.02 GROUP HOME (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 ANTITHROMBOTI 06/14/2018 ROSALIE BURDICK MD, Ot Z79.82 GROUP HOME (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 ASPIRIN 06/14/2018 ROSALIE BURDICK MD, Ot Z82.49 FAMILY HX OF ISCHEM HEART DIS AND OTH DI 06/14/2018 ROSALIE BURDICK MD, Ot Z87.19 PERSONAL HISTORY OF OTHER DISEASES OF TH 06/14/2018 ROSALIE BURDICK MD, Ot Z87.442 PERSONAL HISTORY OF URINARY CALCULI 06/14/2018 ROSALIE BURDICK MD, Ot Z90.49 ACQUIRED ABSENCE OF OTHER SPECIFIED PART 06/14/2018 ROSALIE BURDICK MD, Ot Z95.9 PRESENCE OF CARDIAC AND VASCULAR IMPLANT 06/14/2018 ROSALIE BURDICK MD, Ot Z98.890 OTHER SPECIFIED POSTPROCEDURAL STATES 06/14/2018 ROSALIE BURDICK MD, Ot Z99.2 DEPENDENCE ON RENAL DIALYSIS 07/17/2018 RYAN PAYNE MD Ot E11.22 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 CANNER 07/17/2018 RYAN PAYNE MD Ot I12.9 HYPERTENSIVE CHRONIC KIDNEY DISEASE W ST 07/17/2018 RYAN PAYNE MD Ot N17.9 ACUTE KIDNEY FAILURE, UNSPECIFIED 07/17/2018 RYAN PAYNE MD Ot N18.3 CHRONIC KIDNEY DISEASE, STAGE 3 (MODERAT 07/17/2018 RYAN PAYNE MD Ot N20.0 CALCULUS OF KIDNEY 07/17/2018 RYAN PAYNE MD Ot R60.9 EDEMA, UNSPECIFIED 07/17/2018 RYAN PAYNE MD Ot R80.9 PROTEINURIA, UNSPECIFIED 2018 RYAN PAYNE MD S Ot E11.22 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 CANNER 2018 RYAN PAYNE MD S Ot I12.9 HYPERTENSIVE CHRONIC KIDNEY DISEASE W ST 2018 RYNA PAYNE MD S Ot N17.9 ACUTE KIDNEY FAILURE, UNSPECIFIED 2018 ELMER KRAMER, RYAN S Ot N18.3 CHRONIC KIDNEY DISEASE, STAGE 3 (MODERAT 2018 ELMER KRAMER, EPIFANIOMED S Ot N20.0 CALCULUS OF KIDNEY 2018 ELMER KRAMER, EPIFANIOMED S Ot R60.9 EDEMA, UNSPECIFIED 2018 ELMER KRAMER, EPIFANIOMED S Ot R80.9 PROTEINURIA, UNSPECIFIED 08/17/2018 ELMER KRAMER, RYAN S Ot E11.22 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 CANNER 08/17/2018 ELMER KRAMER, EPIFANIOMED S Ot I12.9 HYPERTENSIVE CHRONIC KIDNEY DISEASE W ST 08/17/2018 ELMER KRAMER, RYAN S Ot N17.9 ACUTE KIDNEY FAILURE, UNSPECIFIED 08/17/2018 ELMER KRAMER, RYAN S Ot N18.3 CHRONIC KIDNEY DISEASE, STAGE 3 (MODERAT 08/17/2018 ELMER KRAMER, EPIFANIOMED S Ot N20.0 CALCULUS OF KIDNEY 08/17/2018 ELMER KRAMER, RYAN S Ot R60.9 EDEMA, UNSPECIFIED 08/17/2018 ELMER KRAMER, RYAN S Ot R80.9 PROTEINURIA, UNSPECIFIED 09/04/2018 ELMER KRAMER, JUAN Ot D63.1 ANEMIA IN CHRONIC KIDNEY DISEASE 09/04/2018 ELMRE KRAMER, JUAN Ot N18.3 CHRONIC KIDNEY DISEASE, STAGE 3 (MODERAT 09/04/2018 ELMER KRAMER, RYAN S Ot E11.22 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 CANNER 09/04/2018 ELMER KRAMER, RYAN S Ot I12.9 HYPERTENSIVE CHRONIC KIDNEY DISEASE W ST 09/04/2018 ELMER KRAMER, RYAN S Ot N17.9 ACUTE KIDNEY FAILURE, UNSPECIFIED 09/04/2018 ELMER KRAMER, RYAN S Ot N18.3 CHRONIC KIDNEY DISEASE, STAGE 3 (MODERAT 09/04/2018 ELMER KRAMER, RYAN S Ot N20.0 CALCULUS OF KIDNEY 09/04/2018 ELMER KRAMER, RYAN S Ot R60.9 EDEMA, UNSPECIFIED 09/04/2018 ELMER KRAMER, RYAN Camacho Ot R80.9 PROTEINURIA, UNSPECIFIED 09/04/2018 ELMER KRAMER, JUAN Ot E11.22 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 CANNER 09/04/2018 ELMER KRAMER, JUAN Ot I12.9 HYPERTENSIVE CHRONIC KIDNEY DISEASE W ST 09/04/2018 ELMER KRAMER, JUAN Ot N17.9 ACUTE KIDNEY FAILURE, UNSPECIFIED 09/04/2018 ELMER KRAMER, JUAN Ot N18.3 CHRONIC KIDNEY DISEASE, STAGE 3 (MODERAT 09/04/2018 ELMER KRAMER, JUAN Ot N20.0 CALCULUS OF KIDNEY 09/04/2018 JUAN PAYNE MD Ot R60.9 EDEMA, UNSPECIFIED 09/04/2018 ELMER KRAMER, JUAN Ot R80.9 PROTEINURIA, UNSPECIFIED 09/07/2018 ROBERTO KRAMER, VINCE Wilkins ([facility]) Ot Z02.71 ENCOUNTER FOR DISABILITY DETERMINATION 09/07/2018 DENISA FU Ot E13.9 OTHER SPECIFIED DIABETES MELLITUS WITHOU 09/07/2018 DENISA FU Ot E78.2 MIXED HYPERLIPIDEMIA 09/07/2018 DNEISA FU Ot I08.3 COMB RHEUMATIC DISORD OF MITRAL, AORTIC 09/07/2018 DENISA FU Ot I12.9 HYPERTENSIVE CHRONIC KIDNEY DISEASE W ST 09/07/2018 DENISA FU Ot I25.10 ATHSCL HEART DISEASE OF [place] CORONARY 09/07/2018 DENISA FU Ot N18.9 CHRONIC KIDNEY DISEASE, UNSPECIFIED 09/07/2018 ELMER KRAMER, RYAN Camacho Ot E11.22 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 CANNER 09/07/2018 ELMER KRAMER, RYAN Camacho Ot I12.9 HYPERTENSIVE CHRONIC KIDNEY DISEASE W ST 09/07/2018 ELMER KRMAER, RYAN Camacho Ot N17.9 ACUTE KIDNEY FAILURE, UNSPECIFIED 09/07/2018 ELMER KRAMER, RYAN S Ot N18.3 CHRONIC KIDNEY DISEASE, STAGE 3 (MODERAT 09/07/2018 ELMER KRAMER, RYAN Camacho Ot N20.0 CALCULUS OF KIDNEY 09/07/2018 ELMER KRAMER, AHMED S Ot R60.9 EDEMA, UNSPECIFIED 09/07/2018 ELMER KRAMER, AHMED S Ot R80.9 PROTEINURIA, UNSPECIFIED 09/07/2018 ELMER KRAMER, AHMED S Ot E11.22 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 CANNER 09/07/2018 ELMER KRAMER, AHMED S Ot I12.9 HYPERTENSIVE CHRONIC KIDNEY DISEASE W ST 09/07/2018 ELMER KRAMER, AHMED S Ot N17.9 ACUTE KIDNEY FAILURE, UNSPECIFIED 09/07/2018 ELMER KRAMER, AHMED S Ot N18.3 CHRONIC KIDNEY DISEASE, STAGE 3 (MODERAT 09/07/2018 ELMER KRAMER, AHMED S Ot N20.0 CALCULUS OF KIDNEY 09/07/2018 ELMER KRAMER, EPIFANIOMED S Ot R60.9 EDEMA, UNSPECIFIED 09/07/2018 ELMER KRAMER, AHMED S Ot R80.9 PROTEINURIA, UNSPECIFIED 09/07/2018 ELMER KRAMER, JUAN Ot D63.1 ANEMIA IN CHRONIC KIDNEY DISEASE 09/07/2018 ELMER KRAMER, JUAN Ot N18.3 CHRONIC KIDNEY DISEASE, STAGE 3 (MODERAT 09/07/2018 ELMER KRAMER, JUAN Ot E11.22 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 CANNER 09/07/2018 ELMER KRAMER, JUAN Ot I12.9 HYPERTENSIVE CHRONIC KIDNEY DISEASE W ST 09/07/2018 ELMER KRAMER, JUAN Ot N17.9 ACUTE KIDNEY FAILURE, UNSPECIFIED 09/07/2018 ELMER KRAMER, JUAN Ot N18.3 CHRONIC KIDNEY DISEASE, STAGE 3 (MODERAT 09/07/2018 ELMER KRAMER, JUAN Ot N20.0 CALCULUS OF KIDNEY 09/07/2018 ELMER KRAMER, JUAN Ot R60.9 EDEMA, UNSPECIFIED 09/07/2018 ELMER KRAMER, JUAN Ot R80.9 PROTEINURIA, UNSPECIFIED 09/07/2018 ELMER KRAMER, AHMED S Ot E11.22 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 CANNER 09/07/2018 ELMER KRAMER, AHMED S Ot I12.9 HYPERTENSIVE CHRONIC KIDNEY DISEASE W ST 09/07/2018 ELMER KRAMER, AHMED S Ot N17.9 ACUTE KIDNEY FAILURE, UNSPECIFIED 09/07/2018 ELMER KRAMER, AHMED S Ot N18.3 CHRONIC KIDNEY DISEASE, STAGE 3 (MODERAT 09/07/2018 ELMER KRAMER, EPIFANIOMED S Ot N20.0 CALCULUS OF KIDNEY 09/07/2018 ELMER KRAMER, AHMED S Ot R60.9 EDEMA, UNSPECIFIED 09/07/2018 ELMER KRAMER, AHMED S Ot R80.9 PROTEINURIA, UNSPECIFIED 09/07/2018 ELMER KRAMER, JUAN Ot E11.22 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 CANNER 09/07/2018 ELMER KRAMER, JUAN Ot I12.9 HYPERTENSIVE CHRONIC KIDNEY DISEASE W ST 09/07/2018 ELMER KRAMER, JUAN Ot N17.9 ACUTE KIDNEY FAILURE, UNSPECIFIED 09/07/2018 ELMER KRAMER, JUAN Ot N18.3 CHRONIC KIDNEY DISEASE, STAGE 3 (MODERAT 09/07/2018 ELMER KRAMER, JUAN Ot N20.0 CALCULUS OF KIDNEY 09/07/2018 ELMER KRAMER, JUNA Ot R60.9 EDEMA, UNSPECIFIED 09/07/2018 ELMER KRAMER, JUAN Ot Z53.8 PROCEDURE AND TREATMENT NOT CARRIED OUT 09/13/2018 ELMER KRAMER, EPIFANIOMED S Ot E11.22 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 CANNER 09/13/2018 ELMER KRAMER, AHMED S Ot I12.9 HYPERTENSIVE CHRONIC KIDNEY DISEASE W ST 09/13/2018 ELMER KRAMER, AHMED S Ot N17.9 ACUTE KIDNEY FAILURE, UNSPECIFIED 09/13/2018 ELMER KRAMER, AHMED S Ot N18.3 CHRONIC KIDNEY DISEASE, STAGE 3 (MODERAT 09/13/2018 ELMER KRAMER, AHMED S Ot N20.0 CALCULUS OF KIDNEY 09/13/2018 ELMER KRAMER, AHMED S Ot R60.9 EDEMA, UNSPECIFIED 09/13/2018 ELMER KRAMER, AHMED S Ot R80.9 PROTEINURIA, UNSPECIFIED 09/13/2018 ROBERTO KRAMER, VINCE Wilkins ([facility]) Ot Z02.71 ENCOUNTER FOR DISABILITY DETERMINATION 09/13/2018 SCOTTY DARLING, DENISA Shahid Ot E13.9 OTHER SPECIFIED DIABETES MELLITUS WITHOU 09/13/2018 SCOTTY DARLING, DENISA Shahid Ot E78.2 MIXED HYPERLIPIDEMIA 09/13/2018 SCOTTY DARLING, DENISA Shahid Ot I08.3 COMB RHEUMATIC DISORD OF MITRAL, AORTIC 09/13/2018 SCOTTY DARLING, DENISA Shahid Ot I12.9 HYPERTENSIVE CHRONIC KIDNEY DISEASE W ST 09/13/2018 SCOTTY DARLIGN, DENISA Shahid Ot I25.10 ATHSCL HEART DISEASE OF [place] CORONARY 09/13/2018 SCOTTY DARLING, DENISA Shahid Ot N18.9 CHRONIC KIDNEY DISEASE, UNSPECIFIED 09/13/2018 ELMER KRAMER, RYAN S Ot E11.22 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 CANNER 09/13/2018 ELMER KRAMER, RYAN S Ot I12.9 HYPERTENSIVE CHRONIC KIDNEY DISEASE W ST 09/13/2018 ELMER KRAMER, RYAN S Ot N17.9 ACUTE KIDNEY FAILURE, UNSPECIFIED 09/13/2018 ELMER KRAMER, RYAN S Ot N18.3 CHRONIC KIDNEY DISEASE, STAGE 3 (MODERAT 09/13/2018 ELMER KRAMER, EPIFANIOMED S Ot N20.0 CALCULUS OF KIDNEY 09/13/2018 ELMER KRAMER, EPIFANIOMED S Ot R60.9 EDEMA, UNSPECIFIED 09/13/2018 ELMER KRAMER, EPIFANIOMED S Ot R80.9 PROTEINURIA, UNSPECIFIED 09/13/2018 ELMER KRAMER, EPIFANIOMED S Ot E11.22 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 CANNER 09/13/2018 ELMER KRAMER, EPIFANIOMED S Ot I12.9 HYPERTENSIVE CHRONIC KIDNEY DISEASE W ST 09/13/2018 ELMER KRAMER, EPIFANIOMED S Ot N17.9 ACUTE KIDNEY FAILURE, UNSPECIFIED 09/13/2018 ELMER KRAMER, EPIFANIOMED S Ot N18.3 CHRONIC KIDNEY DISEASE, STAGE 3 (MODERAT 09/13/2018 ELMER KRAMER, EPIFANIOMED S Ot N20.0 CALCULUS OF KIDNEY 09/13/2018 ELMER KRAMER, AHMED S Ot R60.9 EDEMA, UNSPECIFIED 09/13/2018 ELMER KRAMER, AHMED S Ot R80.9 PROTEINURIA, UNSPECIFIED 09/13/2018 ELMER KRAMER, JUAN Ot D63.1 ANEMIA IN CHRONIC KIDNEY DISEASE 09/13/2018 ELMER KRAMER, JUAN Ot N18.3 CHRONIC KIDNEY DISEASE, STAGE 3 (MODERAT 09/13/2018 ELMER KRAMER, JUAN Ot E11.22 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 CANNER 09/13/2018 ELMER KRAMER, JUAN Ot I12.9 HYPERTENSIVE CHRONIC KIDNEY DISEASE W ST 09/13/2018 ELMER KRAMER, JUAN Ot N17.9 ACUTE KIDNEY FAILURE, UNSPECIFIED 09/13/2018 ELMER KRAMER, JUAN Ot N18.3 CHRONIC KIDNEY DISEASE, STAGE 3 (MODERAT 09/13/2018 ELMER KRAMER, JUAN Ot N20.0 CALCULUS OF KIDNEY 09/13/2018 ELMER KRAMER, JUAN Ot R60.9 EDEMA, UNSPECIFIED 09/13/2018 ELMER KRAMER, JUAN Ot R80.9 PROTEINURIA, UNSPECIFIED 09/13/2018 ELMER KRAMER, EPIFANIOMED S Ot E11.22 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 CANNER 09/13/2018 ELMER KRAMER, EPIFANIOMED S Ot I12.9 HYPERTENSIVE CHRONIC KIDNEY DISEASE W ST 09/13/2018 ELMER KRAMER, EPIFANIOMED S Ot N17.9 ACUTE KIDNEY FAILURE, UNSPECIFIED 09/13/2018 ELMER KRAMER, AHMED S Ot N18.3 CHRONIC KIDNEY DISEASE, STAGE 3 (MODERAT 09/13/2018 EMLER KRAMER, AHMED S Ot N20.0 CALCULUS OF KIDNEY 09/13/2018 ELMER KRAMER, AHMED S Ot R60.9 EDEMA, UNSPECIFIED 09/13/2018 ELMER KRAMER, AHMED S Ot R80.9 PROTEINURIA, UNSPECIFIED 09/13/2018 ELMER KRAMER, JUAN Ot E11.22 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 CANNER 09/13/2018 ELMER KRAMER, JUAN Ot I12.9 HYPERTENSIVE CHRONIC KIDNEY DISEASE W ST 09/13/2018 ELMER KRAMER, JUAN Ot N17.9 ACUTE KIDNEY FAILURE, UNSPECIFIED 09/13/2018 ELMER KRAMER, JUAN Ot N18.3 CHRONIC KIDNEY DISEASE, STAGE 3 (MODERAT 09/13/2018 JUAN PAYNE MD Ot N20.0 CALCULUS OF KIDNEY 09/13/2018 ELMER KRAMER, JUAN Ot R60.9 EDEMA, UNSPECIFIED 09/13/2018 ELMER KRAMER, JUAN Ot Z53.8 PROCEDURE AND TREATMENT NOT CARRIED OUT 09/13/2018 ELMER KRAMER, RYAN S Ot E11.22 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 CANNER 09/13/2018 ELMER KRAMER, RYAN S Ot I12.9 HYPERTENSIVE CHRONIC KIDNEY DISEASE W ST 09/13/2018 ELMER KRAMER, RYAN S Ot N17.9 ACUTE KIDNEY FAILURE, UNSPECIFIED 09/13/2018 ELMER KRAMER, RYAN S Ot N18.3 CHRONIC KIDNEY DISEASE, STAGE 3 (MODERAT 09/13/2018 ELMER KRAMER, RYAN S Ot N20.0 CALCULUS OF KIDNEY 09/13/2018 ELMER KRAMER, RYAN S Ot R60.9 EDEMA, UNSPECIFIED 09/13/2018 ELMER KRAMER, RYAN S Ot R80.9 PROTEINURIA, UNSPECIFIED 09/18/2018 ELMER KRAMER, RYAN S Ot E11.22 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 CANNER 09/18/2018 ELMER KRAMER, RYAN S Ot I12.9 HYPERTENSIVE CHRONIC KIDNEY DISEASE W ST 09/18/2018 ELMER KRAMER, RYAN S Ot N17.9 ACUTE KIDNEY FAILURE, UNSPECIFIED 09/18/2018 ELMER KRAMER, RYAN S Ot N18.3 CHRONIC KIDNEY DISEASE, STAGE 3 (MODERAT 09/18/2018 RYAN PAYNE MD S Ot N20.0 CALCULUS OF KIDNEY 09/22/2018 JUAN PAYNE MD Ot D63.1 ANEMIA IN CHRONIC KIDNEY DISEASE 09/22/2018 JUAN PAYNE MD Ot N18.3 CHRONIC KIDNEY DISEASE, STAGE 3 (MODERAT Procedures Code Description Performed By Per formed On 00.40 07/04/2009 00.45 07/04/2009 00.66 07/04/2009 36.07 07/04/2009 88.56 07/04/2009 47066 ROUT INE VENIPUNCTURE 03/23/2012 71491 A1C (IN-HOUSE) 03/23/2012 27620 MICR O ALBUMIN-IN HOUSE 03/23/2012 05832 MICR OALBUMIN 03/23/2012 56742 CMP 03/23/2012 01488 LIPI D PANEL 03/23/2012 [id number] GF R CALC (RESULT ONLY) 03/23/2012 Cardiolog Rroy Moreland 04/27/2012 11405 A1C (IN-HOUSE) 06/11/2013 16172 ROUT INE VENIPUNCTURE 06/14/2013 55302 A1C (IN-HOUSE) 06/14/2013 14863 MICR O ALBUMIN-IN HOUSE 06/14/2013 [id number] GF R CALC (RESULT ONLY) 06/14/2013 80254 CMP 06/14/2013 92457 LIPI D PANEL 06/14/2013 69476 MICR OALBUMIN 06/15/2013 71728 CMP 09/10/2013 91862 URIC ACID 09/10/2013 24926 AMERITOX 09/10/2013 16934 A1C (IN-HOUSE) 09/10/2013 63189 JOIN T INJECTION- LARGE JOINT (SPECIFY MEDCIN DESCRIPTION) 11/23 86049 ROUT INE VENIPUNCTURE 02/11/2014 53386 CMP 02/11/2014 45201 A1C (IN-HOUSE) 02/11/[id number] CHANDLER OF LEFT KNEE JOINT, PERCUTANEOU 09/20/2016 Results Test Result Range Complete blood count (CBC) with automate d white blood cell (WBC) differential - 01/02/16 15:35 Blood leukocytes automated count (number/volume) 17.2 10*3/uL 4.3-11.0 Blood erythrocytes automated count (number/volume) 5.02 10*6/uL 4.35-5.85 Venous blood hemoglobin measurement (mass/volume) 13.7 g/dL 13.3-17.7 Blood hematocrit (volume fraction) 40 % 40-54 Automated erythrocyte mean corpuscular volume 80 [ foz_us] 80-99 Automated erythrocyte mean corpuscular h emoglobin (mass per erythrocyte) 27 pg 25-34 Automated erythrocyte mean corpuscular h emoglobin concentration measurement (mass/volume) 34 g/dL 32-36 Automated erythrocyte distribution width ratio 14. 9 % 10.0- 14.5 Automated blood platelet count (count/volume) 308 10*3/uL 130-400 Automated blood platelet mean volume measurement 10.3 [foz_us] 7.4-10.4 Automated blood neutrophils/100 leukocytes 87 % 42-75 Automated blood lymphocytes/100 leukocytes 8 % 12-44 Blood monocytes/100 leukocytes 4 % 0-12 Automated blood eosinophils/100 leukocytes 1 % 0-10 Automated blood basophils/100 leukocytes 0 % 0-10 Blood neutrophils automated count (number/volume) 15.0 10*3 1.8-7.8 Blood lymphocytes automated count (number/volume) 1.4 10*3 1.0-4.0 Blood monocytes automated count (number/volume) 0. 6 10*3 0.0-1.0 Automated eosinophil count 0.2 10*3/uL 0 .0-0.3 Automated blood basophil count (count/volume) 0.0 10*3/uL 0.0-0.1 Comprehensive metabolic panel - 01/02/16 15:35 Serum or plasma sodium measurement (moles/volume) 137 mmol/L 135-145 Serum or plasma potassium measurement (moles/volume) 4.7 mmol/L 3.6-5.0 Serum or plasma chloride measurement (moles/volume) 107 mmol/L 98-107 Carbon dioxide 16 mmol/L 21-32 Serum or plasma anion gap determination (moles/volume) 14 mmol/L 5-14 Serum or plasma urea nitrogen measurement (mass/volume ) 32 mg/dL 7-18 Serum or plasma creatinine measurement (mass/volume) 2.59 mg/dL 0.60-1.30 Serum or plasma urea nitrogen/creatinine mass ratio 12 NRG Serum or plasma creatinine measurement w ith calculation of estimated glomerular filtration rate 32 NRG Serum or plasma glucose measurement (mass/volume) 302 mg/dL 70-105 Serum or plasma calcium measurement (mass/volume) 9.4 mg/dL 8.5-10.1 Serum or plasma total bilirubin measurement (mass/volu me) 0.3 mg/dL 0.1-1.0 Serum or plasma alkaline phosphatase martha surement (enzymatic activity/volume) 89 U/L 40-136 Serum or plasma aspartate aminotransfera se measurement (enzymatic activity/volume) 17 U/L 5-34 Serum or plasma alanine aminotransferase measurement (enzymatic activity/volume) 19 U/L 0-55 Serum or plasma protein measurement (mass/volume) 7.4 g/dL 6.4-8.2 Serum or plasma albumin measurement (mass/volume) 3.8 g/dL 3.2-4.5 Lipase - 01/02/16 15:35 Lipase 54 U/L 8-78 Blood manual differential performed dete ction - 01/02/16 15:35 Blood monocytes/100 leukocytes 2 [...] NRG Urine drug screening test - 01/02/16 17: 20 Urine phencyclidine detection by screening method NEGATIVE NEGATIVE Urine benzodiazepines detection by screening method NEGATIVE NEGATIVE Urine cocaine detection NEGATIVE NEGATI VE Urine amphetamines detection by screening method N EGATIVE NEGATIVE Urine methamphetamine detection by screening method NEGATIVE NEGATIVE Urine cannabinoids detection by screening method P OSITIVE NEGATIVE Urine opiates detection by screening method NEGATI VE NEGATIVE Urine barbiturates detection NEGATIVE N EGATIVE Screening urine tricyclic antidepressants detection POSITIVE NEGATIVE Urine methadone detection by screening method NEGA TIVE NEGATIVE Urine oxycodone detection NEGATIVE NEGA TIVE Urine propoxyphene detection NEGATIVE N EGATIVE Urine buprenophrine screen NEGATIVE NEG ATIVE Complete urinalysis with reflex to cultu re - 01/02/16 17:20 Urine color determination YELLOW NRG Urine clarity determination CLEAR NR G Urine pH measurement by test strip 5 5-9 Specific gravity of urine by test strip 1.015 1.016-1.022 Urine protein assay by test strip, semi-quantitative 4+ NEGATIVE Urine glucose detection by automated test strip 2+ NEGATIVE Erythrocytes detection in urine sediment by light micr oscopy 3+ NEGATIVE Urine ketones detection by automated test strip NE GATIVE NEGATIVE Urine nitrite detection by test strip NEGATIVE NEGATIVE Urine total bilirubin detection by test strip NEGA TIVE NEGATIVE Urine urobilinogen measurement by automated test strip (mass/volume) NORMAL NORMAL Urine leukocyte esterase detection by dipstick 1+ NEGATIVE Automated urine sediment erythrocyte cou nt by microscopy (number/high power field) [HPF] NRG Automated urine sediment leukocyte count by microscopy (number/high power field) [HPF] NRG Bacteria detection in urine sediment by light microsco py FEW NRG Squamous epithelial cells detection in u rine sediment by light microscopy 0-2 NRG Crystals detection in urine sediment by light microsco py NONE NRG Casts detection in urine sediment by light microscopy NONE NRG Mucus detection in urine sediment by light microscopy NEGATIVE NRG Complete urinalysis with reflex to culture YES NRG Bacterial urine culture - 01/02/16 17:20 URINE CULTURE RESULTS <10,000/ML NRG CBC+Platelet+Hem Review - 01/07/16 00:00 WBC TNP x10E3/uL RBC TNP Hemoglobin TNP Hematocrit TNP Platelets TNP Neutrophils TNP % Lymphs TNP Monocytes TNP Comp. Metabolic Panel (14) - 01/07/16 00 :00 Glucose, Serum 144 mg/dL 65-99 BUN 25 mg/dL 6-24 Creatinine, Serum 2.41 mg/dL 0.76-1.27 eGFR If NonAfricn Am 31 mL/min/1.73 >59 eGFR If Africn Am 35 mL/min/1.73 >59 BUN/Creatinine Ratio 10 9-20 Sodium, Serum 143 mmol/L 136-144 Potassium, Serum 5.0 mmol/L 3.5-5.2 Chloride, Serum 103 mmol/L 97-106 Carbon Dioxide, Total 22 mmol/L 18-29 Calcium, Serum 9.5 mg/dL 8.7-10.2 Protein, Total, Serum 6.9 g/dL 6.0-8.5 Albumin, Serum 3.8 g/dL 3.5-5.5 Globulin, Total 3.1 g/dL 1.5-4.5 A/G Ratio 1.2 1.1-2.5 Bilirubin, Total <0.2 mg/dL 0.0-1.2 Alkaline Phosphatase, S 89 IU/L 39-117 AST (SGOT) 23 IU/L 0-40 ALT (SGPT) 17 IU/L 0-44 Uric Acid, Serum - 01/07/16 00:00 Uric Acid, Serum 9.9 mg/dL 3.7-8.6 Phosphorus, Serum - 01/07/16 00:00 Phosphorus, Serum 4.0 mg/dL 2.5-4.5 Request Problem - 01/07/16 00:00 Request Problem TNP Complete blood count (CBC) with automate d white blood cell (WBC) differential - 02/22/16 15:42 Blood leukocytes automated count (number/volume) 11.3 10*3/uL 4.3-11.0 Blood erythrocytes automated count (number/volume) 4.38 10*6/uL 4.35-5.85 Venous blood hemoglobin measurement (mass/volume) 12.1 g/dL 13.3-17.7 Blood hematocrit (volume fraction) 36 % 40-54 Automated erythrocyte mean corpuscular volume 82 [ foz_us] 80-99 Automated erythrocyte mean corpuscular h emoglobin (mass per erythrocyte) 28 pg 25-34 Automated erythrocyte mean corpuscular h emoglobin concentration measurement (mass/volume) 34 g/dL 32-36 Automated erythrocyte distribution width ratio 15. 8 % 10.0- 14.5 Automated blood platelet count (count/volume) 229 10*3/uL 130-400 Automated blood platelet mean volume measurement 10.3 [foz_us] 7.4-10.4 Automated blood neutrophils/100 leukocytes 74 % 42-75 Automated blood lymphocytes/100 leukocytes 18 % 12-44 Blood monocytes/100 leukocytes 6 % 0-12 Automated blood eosinophils/100 leukocytes 2 % 0-10 Automated blood basophils/100 leukocytes 0 % 0-10 Blood neutrophils automated count (number/volume) 8.4 10*3 1.8-7.8 Blood lymphocytes automated count (number/volume) 2.0 10*3 1.0-4.0 Blood monocytes automated count (number/volume) 0. 6 10*3 0.0-1.0 Automated eosinophil count 0.2 10*3/uL 0 .0-0.3 Automated blood basophil count (count/volume) 0.0 10*3/uL 0.0-0.1 Erythrocyte sedimentation rate by juan antonio gren method - 02/22/16 15:42 Erythrocyte sedimentation rate by westergren method 68 mm 0- 15 Serum or plasma uric acid measurement (m ass/volume) - 02/22/16 15:42 Serum or plasma uric acid measurement (mass/volume) 7.0 mg/dL 2.6-7.2 Comprehensive metabolic panel - 02/22/16 15:42 Serum or plasma sodium measurement (moles/volume) 132 mmol/L 135-145 Serum or plasma potassium measurement (moles/volume) 4.4 mmol/L 3.6-5.0 Serum or plasma chloride measurement (moles/volume) 101 mmol/L 98-107 Carbon dioxide 19 mmol/L 21-32 Serum or plasma anion gap determination (moles/volume) 12 mmol/L 5-14 Serum or plasma urea nitrogen measurement (mass/volume ) 23 mg/dL 7-18 Serum or plasma creatinine measurement (mass/volume) 2.88 mg/dL 0.60-1.30 Serum or plasma urea nitrogen/creatinine mass ratio 8 NRG Serum or plasma creatinine measurement w ith calculation of estimated glomerular filtration rate 29 NRG Serum or plasma glucose measurement (mass/volume) 536 mg/dL 70-105 Serum or plasma calcium measurement (mass/volume) 8.7 mg/dL 8.5-10.1 Serum or plasma total bilirubin measurement (mass/volu me) 0.2 mg/dL 0.1-1.0 Serum or plasma alkaline phosphatase martha surement (enzymatic activity/volume) 90 U/L 40-136 Serum or plasma aspartate aminotransfera se measurement (enzymatic activity/volume) 13 U/L 5-34 Serum or plasma alanine aminotransferase measurement (enzymatic activity/volume) 14 U/L 0-55 Serum or plasma protein measurement (mass/volume) 6.6 g/dL 6.4-8.2 Serum or plasma albumin measurement (mass/volume) 3.2 g/dL 3.2-4.5 Complete blood count (CBC) with automate d white blood cell (WBC) differential - 03/12/16 17:06 Blood leukocytes automated count (number/volume) 16.0 10*3/uL 4.3-11.0 Blood erythrocytes automated count (number/volume) 4.40 10*6/uL 4.35-5.85 Venous blood hemoglobin measurement (mass/volume) 12.1 g/dL 13.3-17.7 Blood hematocrit (volume fraction) 36 % 40-54 Automated erythrocyte mean corpuscular volume 83 [ foz_us] 80-99 Automated erythrocyte mean corpuscular h emoglobin (mass per erythrocyte) 28 pg 25-34 Automated erythrocyte mean corpuscular h emoglobin concentration measurement (mass/volume) 33 g/dL 32-36 Automated erythrocyte distribution width ratio 16. 1 % 10.0- 14.5 Automated blood platelet count (count/volume) 249 10*3/uL 130-400 Automated blood platelet mean volume measurement 10.7 [foz_us] 7.4-10.4 Automated blood neutrophils/100 leukocytes 81 % 42-75 Automated blood lymphocytes/100 leukocytes 13 % 12-44 Blood monocytes/100 leukocytes 5 % 0-12 Automated blood eosinophils/100 leukocytes 1 % 0-10 Automated blood basophils/100 leukocytes 0 % 0-10 Blood neutrophils automated count (number/volume) 12.9 10*3 1.8-7.8 Blood lymphocytes automated count (number/volume) 2.1 10*3 1.0-4.0 Blood monocytes automated count (number/volume) 0. 8 10*3 0.0-1.0 Automated eosinophil count 0.1 10*3/uL 0 .0-0.3 Automated blood basophil count (count/volume) 0.0 10*3/uL 0.0-0.1 Serum or plasma C reactive protein measu rement (mass/volume) - 03/12/16 17:06 Serum or plasma C reactive protein measurement (mass/v olume) 8.85 mg/dL 0.00-0.50 Blood manual differential performed dete ction - 03/12/16 17:06 Blood monocytes/100 leukocytes 1 [...] NR Whole blood basic metabolic panel - 02/28 05/14 17:06 Serum or plasma sodium measurement (moles/volume) 139 mmol/L 135-145 Serum or plasma potassium measurement (moles/volume) 4.1 mmol/L 3.6-5.0 Serum or plasma chloride measurement (moles/volume) 103 mmol/L 98-107 Carbon dioxide 25 mmol/L 21-32 Serum or plasma anion gap determination (moles/volume) 11 mmol/L 5-14 Serum or plasma urea nitrogen measurement (mass/volume ) 22 mg/dL 7-18 Serum or plasma creatinine measurement (mass/volume) 2.29 mg/dL 0.60-1.30 Serum or plasma urea nitrogen/creatinine mass ratio 10 NRG Serum or plasma creatinine measurement w ith calculation of estimated glomerular filtration rate 37 NRG Serum or plasma glucose measurement (mass/volume) 150 mg/dL 70-105 Serum or plasma calcium measurement (mass/volume) 9.2 mg/dL 8.5-10.1 CBC With Differential/Platelet - 7 17:35 WBC 11.1 x10E3/uL 3.4-10.8 RBC 4.46 x10E6/uL 4.14-5.80 Hemoglobin 12.2 g/dL 12.6-17.7 Hematocrit 36.7 % 37.5-51.0 MCV 82 fL 79-97 MCH 27.4 pg 26.6-33.0 MCHC 33.2 g/dL 31.5-35.7 RDW 16.5 % 12.3-15.4 Platelets 301 x10E3/uL 150-379 Neutrophils 68 % Lymphs 26 % Monocytes 4 % Eos 2 % Basos 0 % Neutrophils (Absolute) 7.6 x10E3/uL 1.4- 7.0 Lymphs (Absolute) 2.9 x10E3/uL 0.7-3.1 Monocytes(Absolute) 0.5 x10E3/uL 0.1-0.9 Eos (Absolute) 0.2 x10E3/uL 0.0-0.4 Baso (Absolute) 0.0 x10E3/uL 0.0-0.2 Immature Granulocytes 0 % Immature Grans (Abs) 0.0 x10E3/uL 0.0-0. 1 Comp. Metabolic Panel (14) - 03/15/16 17 :35 Glucose, Serum 181 mg/dL 65-99 BUN 21 mg/dL 6-24 Creatinine, Serum 2.47 mg/dL 0.76-1.27 eGFR If NonAfricn Am 30 mL/min/1.73 >59 eGFR If Africn Am 34 mL/min/1.73 >59 BUN/Creatinine Ratio 9 9-20 Sodium, Serum 141 mmol/L 134-144 Potassium, Serum 4.5 mmol/L 3.5-5.2 Chloride, Serum 97 mmol/L 96-106 Carbon Dioxide, Total 26 mmol/L 18-29 Calcium, Serum 9.3 mg/dL 8.7-10.2 Protein, Total, Serum 6.3 g/dL 6.0-8.5 Albumin, Serum 3.3 g/dL 3.5-5.5 Globulin, Total 3.0 g/dL 1.5-4.5 A/G Ratio 1.1 1.1-2.5 Bilirubin, Total <0.2 mg/dL 0.0-1.2 Alkaline Phosphatase, S 86 IU/L 39-117 AST (SGOT) 11 IU/L 0-40 ALT (SGPT) 11 IU/L 0-44 Prot+CreatU (Random) - 03/15/16 17:35 Creatinine, Urine 289.2 mg/dL Not Estab. Protein,Total,Urine 927.6 mg/dL Not Esta b. Protein/Creat Ratio 3207 mg/g creat 0-20 0 Microalb/Creat Ratio, Randm Ur - 7 17:35 Microalbumin, Urine 5532.1 ug/mL Not Est ab. Microalb/Creat Ratio 1912.9 mg/g creat 0 .0-30.0 Antinuclear Ab Reflex Nelson - 03/15/16 17:35 JOHNSON Direct Negative Negative See below: Comment Rheumatoid Arthritis Factor - 03/15/16 1 7:35 RA Latex Turbid. 11.8 IU/mL 0.0-13.9 Uric Acid, Serum - 03/15/16 17:35 Uric Acid, Serum 7.0 mg/dL 3.7-8.6 C-Reactive Protein, Quant - 03/15/16 17: 35 C-Reactive Protein, Quant 36.2 mg/L 0.0- 4.9 Complete blood count (CBC) with automate d white blood cell (WBC) differential - 03/18/16 17:00 Blood leukocytes automated count (number/volume) 12.5 10*3/uL 4.3-11.0 Blood erythrocytes automated count (number/volume) 4.72 10*6/uL 4.35-5.85 Venous blood hemoglobin measurement (mass/volume) 13.1 g/dL 13.3-17.7 Blood hematocrit (volume fraction) 39 % 40-54 Automated erythrocyte mean corpuscular volume 83 [ foz_us] 80-99 Automated erythrocyte mean corpuscular h emoglobin (mass per erythrocyte) 28 pg 25-34 Automated erythrocyte mean corpuscular h emoglobin concentration measurement (mass/volume) 33 g/dL 32-36 Automated erythrocyte distribution width ratio 16. 2 % 10.0- 14.5 Automated blood platelet count (count/volume) 280 10*3/uL 130-400 Automated blood platelet mean volume measurement 9.4 [foz_us] 7.4-10.4 Automated blood neutrophils/100 leukocytes 80 % 42-75 Automated blood lymphocytes/100 leukocytes 14 % 12-44 Blood monocytes/100 leukocytes 5 % 0-12 Automated blood eosinophils/100 leukocytes 2 % 0-10 Automated blood basophils/100 leukocytes 0 % 0-10 Blood neutrophils automated count (number/volume) 9.9 10*3 1.8-7.8 Blood lymphocytes automated count (number/volume) 1.7 10*3 1.0-4.0 Blood monocytes automated count (number/volume) 0. 6 10*3 0.0-1.0 Automated eosinophil count 0.2 10*3/uL 0 .0-0.3 Automated blood basophil count (count/volume) 0.0 10*3/uL 0.0-0.1 Comprehensive metabolic panel - 03/18/16 17:00 Serum or plasma sodium measurement (moles/volume) 140 mmol/L 135-145 Serum or plasma potassium measurement (moles/volume) 4.4 mmol/L 3.6-5.0 Serum or plasma chloride measurement (moles/volume) 104 mmol/L 98-107 Carbon dioxide 25 mmol/L 21-32 Serum or plasma anion gap determination (moles/volume) 11 mmol/L 5-14 Serum or plasma urea nitrogen measurement (mass/volume ) 21 mg/dL 7-18 Serum or plasma creatinine measurement (mass/volume) 2.29 mg/dL 0.60-1.30 Serum or plasma urea nitrogen/creatinine mass ratio 9 NRG Serum or plasma creatinine measurement w ith calculation of estimated glomerular filtration rate 37 NRG Serum or plasma glucose measurement (mass/volume) 136 mg/dL 70-105 Serum or plasma calcium measurement (mass/volume) 9.3 mg/dL 8.5-10.1 Serum or plasma total bilirubin measurement (mass/volu me) 0.2 mg/dL 0.1-1.0 Serum or plasma alkaline phosphatase martha surement (enzymatic activity/volume) 77 U/L 40-136 Serum or plasma aspartate aminotransfera se measurement (enzymatic activity/volume) 18 U/L 5-34 Serum or plasma alanine aminotransferase measurement (enzymatic activity/volume) 17 U/L 0-55 Serum or plasma protein measurement (mass/volume) 6.7 g/dL 6.4-8.2 Serum or plasma albumin measurement (mass/volume) 3.3 g/dL 3.2-4.5 CBC With Differential/Platelet - 7 13:09 WBC 14.4 x10E3/uL 3.4-10.8 RBC 4.44 x10E6/uL 4.14-5.80 Hemoglobin 12.1 g/dL 12.6-17.7 Hematocrit 36.2 % 37.5-51.0 MCV 82 fL 79-97 MCH 27.3 pg 26.6-33.0 MCHC 33.4 g/dL 31.5-35.7 RDW 17.3 % 12.3-15.4 Platelets 221 x10E3/uL 150-379 Neutrophils 77 % Lymphs 16 % Monocytes 5 % Eos 1 % Basos 0 % Neutrophils (Absolute) 11.2 x10E3/uL 1.4 -7.0 Lymphs (Absolute) 2.2 x10E3/uL 0.7-3.1 Monocytes(Absolute) 0.7 x10E3/uL 0.1-0.9 Eos (Absolute) 0.2 x10E3/uL 0.0-0.4 Baso (Absolute) 0.0 x10E3/uL 0.0-0.2 Immature Granulocytes 1 % Immature Grans (Abs) 0.1 x10E3/uL 0.0-0. 1 Complete urinalysis with reflex to cultu re - 04/04/16 00:37 Urine color determination YELLOW NRG Urine clarity determination VERY CLOUDY NRG Urine pH measurement by test strip 7 5-9 Specific gravity of urine by test strip 1.010 1.016-1.022 Urine protein assay by test strip, semi-quantitative 4+ NEGATIVE Urine glucose detection by automated test strip NE GATIVE NEGATIVE Erythrocytes detection in urine sediment by light micr oscopy 3+ NEGATIVE Urine ketones detection by automated test strip 1+ NEGATIVE Urine nitrite detection by test strip NEGATIVE NEGATIVE Urine total bilirubin detection by test strip NEGA TIVE NEGATIVE Urine urobilinogen measurement by automated test strip (mass/volume) NORMAL NORMAL Urine leukocyte esterase detection by dipstick 2+ NEGATIVE Automated urine sediment erythrocyte cou nt by microscopy (number/high power field) [HPF] NRG Automated urine sediment leukocyte count by microscopy (number/high power field) > [HPF] NRG Bacteria detection in urine sediment by light microsco py TRACE NRG Squamous epithelial cells detection in u rine sediment by light microscopy RARE NRG Crystals detection in urine sediment by light microsco py NONE NRG Casts detection in urine sediment by light microscopy NONE NRG Mucus detection in urine sediment by light microscopy NEGATIVE NRG Complete urinalysis with reflex to culture YES NRG Urine Trichomonas species detection by light microscop y FEW NRG Other elements identification in urine sediment by lig ht microscopy FEW SPERM NRG Bacterial urine culture - 04/04/16 00:37 URINE CULTURE RESULTS <10,000/ML NRG Complete blood count (CBC) with automate d white blood cell (WBC) differential - 04/04/16 22:40 Blood leukocytes automated count (number/volume) 14.3 10*3/uL 4.3-11.0 Blood erythrocytes automated count (number/volume) 4.67 10*6/uL 4.35-5.85 Venous blood hemoglobin measurement (mass/volume) 12.9 g/dL 13.3-17.7 Blood hematocrit (volume fraction) 38 % 40-54 Automated erythrocyte mean corpuscular volume 82 [ foz_us] 80-99 Automated erythrocyte mean corpuscular h emoglobin (mass per erythrocyte) 28 pg 25-34 Automated erythrocyte mean corpuscular h emoglobin concentration measurement (mass/volume) 34 g/dL 32-36 Automated erythrocyte distribution width ratio 16. 5 % 10.0- 14.5 Automated blood platelet count (count/volume) 312 10*3/uL 130-400 Automated blood platelet mean volume measurement 9.6 [foz_us] 7.4-10.4 Automated blood neutrophils/100 leukocytes 77 % 42-75 Automated blood lymphocytes/100 leukocytes 17 % 12-44 Blood monocytes/100 leukocytes 5 % 0-12 Automated blood eosinophils/100 leukocytes 1 % 0-10 Automated blood basophils/100 leukocytes 0 % 0-10 Blood neutrophils automated count (number/volume) 11.0 10*3 1.8-7.8 Blood lymphocytes automated count (number/volume) 2.5 10*3 1.0-4.0 Blood monocytes automated count (number/volume) 0. 6 10*3 0.0-1.0 Automated eosinophil count 0.2 10*3/uL 0 .0-0.3 Automated blood basophil count (count/volume) 0.1 10*3/uL 0.0-0.1 Blood manual differential performed dete ction - 04/04/16 22:40 Blood monocytes/100 leukocytes 5 % NRG Manual blood segmented neutrophils/100 leukocytes 79 % NRG Blood band neutrophils/100 leukocytes 17 % NRG Manual blood lymphocytes/100 leukocytes 2 % NRG Manual eosinophils/100 leukocytes in nose 0 % NRG Manual blood basophils/100 leukocytes 0 % NRG Blood erythrocyte morphology finding identification NORMAL NRG Comprehensive metabolic panel - 04/04/16 22:40 Serum or plasma sodium measurement (moles/volume) 140 mmol/L 135-145 Serum or plasma potassium measurement (moles/volume) 4.0 mmol/L 3.6-5.0 Serum or plasma chloride measurement (moles/volume) 100 mmol/L 98-107 Carbon dioxide 25 mmol/L 21-32 Serum or plasma anion gap determination (moles/volume) 15 mmol/L 5-14 Serum or plasma urea nitrogen measurement (mass/volume ) 18 mg/dL 7-18 Serum or plasma creatinine measurement (mass/volume) 2.71 mg/dL 0.60-1.30 Serum or plasma urea nitrogen/creatinine mass ratio 7 NRG Serum or plasma creatinine measurement w ith calculation of estimated glomerular filtration rate 31 NRG Serum or plasma glucose measurement (mass/volume) 100 mg/dL 70-105 Serum or plasma calcium measurement (mass/volume) 9.6 mg/dL 8.5-10.1 Serum or plasma total bilirubin measurement (mass/volu me) 0.4 mg/dL 0.1-1.0 Serum or plasma alkaline phosphatase martha surement (enzymatic activity/volume) 85 U/L 40-136 Serum or plasma aspartate aminotransfera se measurement (enzymatic activity/volume) 15 U/L 5-34 Serum or plasma alanine aminotransferase measurement (enzymatic activity/volume) 12 U/L 0-55 Serum or plasma protein measurement (mass/volume) 7.2 g/dL 6.4-8.2 Serum or plasma albumin measurement (mass/volume) 3.5 g/dL 3.2-4.5 Serum or plasma uric acid measurement (m ass/volume) - 04/04/16 22:40 Serum or plasma uric acid measurement (mass/volume) 8.3 mg/dL 2.6-7.2 Magnesium - 04/04/16 22:40 Magnesium 1.7 mg/dL 1.8-2.4 Serum or plasma amylase measurement (enz ymatic activity/volume) - 04/04/16 22:40 Serum or plasma amylase measurement (enzymatic activit y/volume) 142 U/L 25-125 Lipase - 04/04/16 22:40 Lipase 15 U/L 8-78 Serum or plasma C reactive protein measu rement (mass/volume) - 04/04/16 22:40 Serum or plasma C reactive protein measurement (mass/v olume) 3.15 mg/dL 0.00-0.50 Erythrocyte sedimentation rate by juan antonio gren method - 04/04/16 22:40 Erythrocyte sedimentation rate by westergren method 90 mm 0- 15 Blood lactic acid measurement (moles/vol ume) - 04/04/16 22:50 Blood lactic acid measurement (moles/volume) 1.7 m mol/L 0.5- 2.0 Bacterial blood culture - 04/04/16 22:50 Bacterial blood culture NG NRG Bacterial blood culture - 04/04/16 22:50 Bacterial blood culture NG NRG Complete blood count (CBC) with automate d white blood cell (WBC) differential - 06/04/16 09:38 Blood leukocytes automated count (number/volume) 12.7 10*3/uL 4.3-11.0 Blood erythrocytes automated count (number/volume) 4.31 10*6/uL 4.35-5.85 Venous blood hemoglobin measurement (mass/volume) 12.1 g/dL 13.3-17.7 Blood hematocrit (volume fraction) 37 % 40-54 Automated erythrocyte mean corpuscular volume 85 [ foz_us] 80-99 Automated erythrocyte mean corpuscular h emoglobin (mass per erythrocyte) 28 pg 25-34 Automated erythrocyte mean corpuscular h emoglobin concentration measurement (mass/volume) 33 g/dL 32-36 Automated erythrocyte distribution width ratio 16. 1 % 10.0- 14.5 Automated blood platelet count (count/volume) 253 10*3/uL 130-400 Automated blood platelet mean volume measurement 10.1 [foz_us] 7.4-10.4 Automated blood neutrophils/100 leukocytes 75 % 42-75 Automated blood lymphocytes/100 leukocytes 16 % 12-44 Blood monocytes/100 leukocytes 5 % 0-12 Automated blood eosinophils/100 leukocytes 4 % 0-10 Automated blood basophils/100 leukocytes 0 % 0-10 Blood neutrophils automated count (number/volume) 9.5 10*3 1.8-7.8 Blood lymphocytes automated count (number/volume) 2.0 10*3 1.0-4.0 Blood monocytes automated count (number/volume) 0. 7 10*3 0.0-1.0 Automated eosinophil count 0.5 10*3/uL 0 .0-0.3 Automated blood basophil count (count/volume) 0.0 10*3/uL 0.0-0.1 Comprehensive metabolic panel - 06/04/16 10:09 Serum or plasma sodium measurement (moles/volume) 138 mmol/L 135-145 Serum or plasma potassium measurement (moles/volume) 4.6 mmol/L 3.6-5.0 Serum or plasma chloride measurement (moles/volume) 102 mmol/L 98-107 Carbon dioxide 25 mmol/L 21-32 Serum or plasma anion gap determination (moles/volume) 11 mmol/L 5-14 Serum or plasma urea nitrogen measurement (mass/volume ) 21 mg/dL 7-18 Serum or plasma creatinine measurement (mass/volume) 2.34 mg/dL 0.60-1.30 Serum or plasma urea nitrogen/creatinine mass ratio 9 NRG Serum or plasma creatinine measurement w ith calculation of estimated glomerular filtration rate 36 NRG Serum or plasma glucose measurement (mass/volume) 305 mg/dL 70-105 Serum or plasma calcium measurement (mass/volume) 9.0 mg/dL 8.5-10.1 Serum or plasma total bilirubin measurement (mass/volu me) 0.3 mg/dL 0.1-1.0 Serum or plasma alkaline phosphatase martha surement (enzymatic activity/volume) 81 U/L 40-136 Serum or plasma aspartate aminotransfera se measurement (enzymatic activity/volume) 17 U/L 5-34 Serum or plasma alanine aminotransferase measurement (enzymatic activity/volume) 15 U/L 0-55 Serum or plasma protein measurement (mass/volume) 6.6 g/dL 6.4-8.2 Serum or plasma albumin measurement (mass/volume) 3.2 g/dL 3.2-4.5 Serum or plasma troponin i.cardiac measu rement (mass/volume) - 06/04/16 10:09 Serum or plasma troponin i.cardiac measurement (mass/v olume) < ng/mL <0.30 PT panel in platelet poor plasma by coag ulation assay - 06/04/16 12:15 Prothrombin time (PT) in platelet poor plasma by coagu lation assay 13.6 s 12.2-14.7 INR in platelet poor plasma or blood by coagulation as say 1.1 0.8-1.4 Activated partial thromboplastin time (a PTT) in platelet poor plasma bycoagulation assay - 06/04/16 12:15 Activated partial thromboplastin time (a PTT) in platelet poor plasma bycoagulation assay 32 s 24-35 Serum or plasma troponin i.cardiac measu rement (mass/volume) - 06/04/16 15:45 Serum or plasma troponin i.cardiac measurement (mass/v olume) < ng/mL <0.30 Capillary blood glucose measurement by g lucometer (mass/volume) - 06/04/16 17:53 Capillary blood glucose measurement by glucometer (mas s/volume) 144 mg/dL 70-110 Whole blood basic metabolic panel - 09/13 20:40 Serum or plasma sodium measurement (moles/volume) 142 mmol/L 135-145 Serum or plasma potassium measurement (moles/volume) 3.7 mmol/L 3.6-5.0 Serum or plasma chloride measurement (moles/volume) 105 mmol/L 98-107 Carbon dioxide 26 mmol/L 21-32 Serum or plasma anion gap determination (moles/volume) 11 mmol/L 5-14 Serum or plasma urea nitrogen measurement (mass/volume ) 20 mg/dL 7-18 Serum or plasma creatinine measurement (mass/volume) 2.27 mg/dL 0.60-1.30 Serum or plasma urea nitrogen/creatinine mass ratio 9 NRG Serum or plasma creatinine measurement w ith calculation of estimated glomerular filtration rate 38 NRG Serum or plasma glucose measurement (mass/volume) 135 mg/dL 70-105 Serum or plasma calcium measurement (mass/volume) 8.8 mg/dL 8.5-10.1 Magnesium - 06/04/16 20:40 Magnesium 1.5 mg/dL 1.8-2.4 Automated blood complete blood count (he mogram) panel - 06/05/16 03:30 Blood leukocytes automated count (number/volume) 14.4 10*3/uL 4.3-11.0 Blood erythrocytes automated count (number/volume) 3.97 10*6/uL 4.35-5.85 Venous blood hemoglobin measurement (mass/volume) 10.9 g/dL 13.3-17.7 Blood hematocrit (volume fraction) 33 % 40-54 Automated erythrocyte mean corpuscular volume 83 [ foz_us] 80-99 Automated erythrocyte mean corpuscular h emoglobin (mass per erythrocyte) 28 pg 25-34 Automated erythrocyte mean corpuscular h emoglobin concentration measurement (mass/volume) 33 g/dL 32-36 Automated erythrocyte distribution width ratio 15. 9 % 10.0- 14.5 Automated blood platelet count (count/volume) 273 10*3/uL 130-400 Automated blood platelet mean volume measurement 9.5 [foz_us] 7.4-10.4 Whole blood basic metabolic panel - 10/14 03:30 Serum or plasma sodium measurement (moles/volume) 141 mmol/L 135-145 Serum or plasma potassium measurement (moles/volume) 3.7 mmol/L 3.6-5.0 Serum or plasma chloride measurement (moles/volume) 107 mmol/L 98-107 Carbon dioxide 22 mmol/L 21-32 Serum or plasma anion gap determination (moles/volume) 12 mmol/L 5-14 Serum or plasma urea nitrogen measurement (mass/volume ) 20 mg/dL 7-18 Serum or plasma creatinine measurement (mass/volume) 2.21 mg/dL 0.60-1.30 Serum or plasma urea nitrogen/creatinine mass ratio 9 NRG Serum or plasma creatinine measurement w ith calculation of estimated glomerular filtration rate 39 NRG Serum or plasma glucose measurement (mass/volume) 126 mg/dL 70-105 Serum or plasma calcium measurement (mass/volume) 8.5 mg/dL 8.5-10.1 Serum or plasma troponin i.cardiac measu rement (mass/volume) - 06/05/16 03:30 Serum or plasma troponin i.cardiac measurement (mass/v olume) < ng/mL <0.30 Lipid 1996 panel - 06/05/16 03:30 Serum or plasma triglyceride measurement (mass/volume) 382 mg/dL <150 Serum or plasma cholesterol measurement (mass/volume) 155 mg/dL < 200 Serum or plasma cholesterol in HDL measurement (mass/v olume) 23 mg/dL 40-60 Cholesterol in LDL [mass/volume] in serum or plasma by direct assay 54 mg/dL 1-129 Serum or plasma cholesterol in VLDL measurement (mass/ volume) 76 mg/dL 5-40 Automated blood complete blood count ( mogram) panel - 07/21/16 07:03 Blood leukocytes automated count (number/volume) 14.5 10*3/uL 4.3-11.0 Blood erythrocytes automated count (number/volume) 4.63 10*6/uL 4.35-5.85 Venous blood hemoglobin measurement (mass/volume) 12.5 g/dL 13.3-17.7 Blood hematocrit (volume fraction) 38 % 40-54 Automated erythrocyte mean corpuscular volume 83 [ foz_us] 80-99 Automated erythrocyte mean corpuscular h emoglobin (mass per erythrocyte) 27 pg 25-34 Automated erythrocyte mean corpuscular h emoglobin concentration measurement (mass/volume) 33 g/dL 32-36 Automated erythrocyte distribution width ratio 16. 0 % 10.0- 14.5 Automated blood platelet count (count/volume) 294 10*3/uL 130-400 Automated blood platelet mean volume measurement 9.8 [foz_us] 7.4-10.4 Complete urinalysis with reflex to cultu re - 07/21/16 07:03 Urine color determination YELLOW NRG Urine clarity determination CLEAR NR G Urine pH measurement by test strip 6.5 5-9 Specific gravity of urine by test strip 1.010 1.016-1.022 Urine protein assay by test strip, semi-quantitative 4+ NEGATIVE Urine glucose detection by automated test strip NE GATIVE NEGATIVE Erythrocytes detection in urine sediment by light micr oscopy 3+ NEGATIVE Urine ketones detection by automated test strip NE GATIVE NEGATIVE Urine nitrite detection by test strip NEGATIVE NEGATIVE Urine total bilirubin detection by test strip NEGA TIVE NEGATIVE Urine urobilinogen measurement by automated test strip (mass/volume) NORMAL NORMAL Urine leukocyte esterase detection by dipstick 1+ NEGATIVE Automated urine sediment erythrocyte cou nt by microscopy (number/high power field) [HPF] NRG Automated urine sediment leukocyte count by microscopy (number/high power field) [HPF] NRG Bacteria detection in urine sediment by light microsco py TRACE NRG Squamous epithelial cells detection in u rine sediment by light microscopy RARE NRG Crystals detection in urine sediment by light microsco py NONE NRG Casts detection in urine sediment by light microscopy NONE NRG Mucus detection in urine sediment by light microscopy NEGATIVE NRG Complete urinalysis with reflex to culture YES NRG PT panel in platelet poor plasma by coag ulation assay - 07/21/16 07:03 Prothrombin time (PT) in platelet poor plasma by coagu lation assay 12.5 s 12.2-14.7 INR in platelet poor plasma or blood by coagulation as say 1.0 0.8-1.4 Activated partial thromboplastin time (a PTT) in platelet poor plasma bycoagulation assay - 07/21/16 07:03 Activated partial thromboplastin time (a PTT) in platelet poor plasma bycoagulation assay 34 s 24-35 Comprehensive metabolic panel - 07/21/16 07:03 Serum or plasma sodium measurement (moles/volume) 139 mmol/L 135-145 Serum or plasma potassium measurement (moles/volume) 4.0 mmol/L 3.6-5.0 Serum or plasma chloride measurement (moles/volume) 105 mmol/L 98-107 Carbon dioxide 21 mmol/L 21-32 Serum or plasma anion gap determination (moles/volume) 13 mmol/L 5-14 Serum or plasma urea nitrogen measurement (mass/volume ) 38 mg/dL 7-18 Serum or plasma creatinine measurement (mass/volume) 3.09 mg/dL 0.60-1.30 Serum or plasma urea nitrogen/creatinine mass ratio 12 NRG Serum or plasma creatinine measurement w ith calculation of estimated glomerular filtration rate 26 NRG Serum or plasma glucose measurement (mass/volume) 208 mg/dL 70-105 Serum or plasma calcium measurement (mass/volume) 9.4 mg/dL 8.5-10.1 Serum or plasma total bilirubin measurement (mass/volu me) 0.2 mg/dL 0.1-1.0 Serum or plasma alkaline phosphatase martha surement (enzymatic activity/volume) 76 U/L 40-136 Serum or plasma aspartate aminotransfera se measurement (enzymatic activity/volume) 15 U/L 5-34 Serum or plasma alanine aminotransferase measurement (enzymatic activity/volume) 11 U/L 0-55 Serum or plasma protein measurement (mass/volume) 7.3 g/dL 6.4-8.2 Serum or plasma albumin measurement (mass/volume) 3.7 g/dL 3.2-4.5 Lipid 1996 panel - 07/21/16 07:03 Serum or plasma triglyceride measurement (mass/volume) 668 mg/dL <150 Serum or plasma cholesterol measurement (mass/volume) 189 mg/dL < 200 Serum or plasma cholesterol in HDL measurement (mass/v olume) 22 mg/dL 40-60 Cholesterol in LDL [mass/volume] in serum or plasma by direct assay 55 mg/dL 1-129 Serum or plasma cholesterol in VLDL measurement (mass/ volume) 134 mg/dL 5-40 Urine protein/creatinine mass ratio - 07:03 Urine protein measurement (mass/volume) 295 mg/dL 6-12 Urine creatinine measurement (mass/volume) 112 mg/ dL 30-125 Urine protein/creatinine mass ratio 2.63 NRG Bacterial urine culture - 07/21/16 07:03 Bacterial urine culture [id number] NRG COLONY COUNT >100,000/ML NRG FTX;REPORTABLE SENSITIVITY NOT USUALLY PERFORMED F OR NRG FREE TEXT ENTRY 2 THIS ORGANISM. NRG Methicillin resistant Staphylococcus aur eus (MRSA) screening culture - 07/21/16 07:05 Methicillin resistant Staphylococcus aureus (MRSA) scr eening culture NEG NRG Whole blood basic metabolic panel - 07/14 14:41 Serum or plasma sodium measurement (moles/volume) 139 mmol/L 135-145 Serum or plasma potassium measurement (moles/volume) 4.0 mmol/L 3.6-5.0 Serum or plasma chloride measurement (moles/volume) 106 mmol/L 98-107 Carbon dioxide 22 mmol/L 21-32 Serum or plasma anion gap determination (moles/volume) 11 mmol/L 5-14 Serum or plasma urea nitrogen measurement (mass/volume ) 18 mg/dL 7-18 Serum or plasma creatinine measurement (mass/volume) 2.25 mg/dL 0.60-1.30 Serum or plasma urea nitrogen/creatinine mass ratio 8 NRG Serum or plasma creatinine measurement w ith calculation of estimated glomerular filtration rate 38 NRG Serum or plasma glucose measurement (mass/volume) 278 mg/dL 70-105 Serum or plasma calcium measurement (mass/volume) 8.8 mg/dL 8.5-10.1 Complete urinalysis with reflex to cultu re - 08/04/16 08:05 Urine color determination YELLOW NRG Urine clarity determination SLIGHTLY CLOUDY NRG Urine pH measurement by test strip 6 5-9 Specific gravity of urine by test strip 1.015 1.016-1.022 Urine protein assay by test strip, semi-quantitative 4+ NEGATIVE Urine glucose detection by automated test strip NE GATIVE NEGATIVE Erythrocytes detection in urine sediment by light micr oscopy 3+ NEGATIVE Urine ketones detection by automated test strip NE GATIVE NEGATIVE Urine nitrite detection by test strip NEGATIVE NEGATIVE Urine total bilirubin detection by test strip NEGA TIVE NEGATIVE Urine urobilinogen measurement by automated test strip (mass/volume) NORMAL NORMAL Urine leukocyte esterase detection by dipstick 1+ NEGATIVE Automated urine sediment erythrocyte cou nt by microscopy (number/high power field) [HPF] NRG Automated urine sediment leukocyte count by microscopy (number/high power field) [HPF] NRG Bacteria detection in urine sediment by light microsco py TRACE NRG Squamous epithelial cells detection in u rine sediment by light microscopy 2-5 NRG Crystals detection in urine sediment by light microsco py NONE NRG Casts detection in urine sediment by light microscopy NONE NRG Mucus detection in urine sediment by light microscopy NEGATIVE NRG Complete urinalysis with reflex to culture YES NRG Bacterial urine culture - 08/04/16 08:05 Bacterial urine culture [id number] NRG COLONY COUNT >100,000/ML NRG FTX;REPORTABLE SENSITIVITY NOT USUALLY PERFORMED O N NRG FREE TEXT ENTRY 2 THIS ORGANISM. NRG Automated blood complete blood count ( mogram) panel - 08/04/16 08:11 Blood leukocytes automated count (number/volume) 12.9 10*3/uL 4.3-11.0 Blood erythrocytes automated count (number/volume) 4.58 10*6/uL 4.35-5.85 Venous blood hemoglobin measurement (mass/volume) 12.5 g/dL 13.3-17.7 Blood hematocrit (volume fraction) 38 % 40-54 Automated erythrocyte mean corpuscular volume 83 [ foz_us] 80-99 Automated erythrocyte mean corpuscular h emoglobin (mass per erythrocyte) 27 pg 25-34 Automated erythrocyte mean corpuscular h emoglobin concentration measurement (mass/volume) 33 g/dL 32-36 Automated erythrocyte distribution width ratio 16. 3 % 10.0- 14.5 Automated blood platelet count (count/volume) 265 10*3/uL 130-400 Automated blood platelet mean volume measurement 9.5 [foz_us] 7.4-10.4 PT panel in platelet poor plasma by coag ulation assay - 08/04/16 08:11 Prothrombin time (PT) in platelet poor plasma by coagu lation assay 12.7 s 12.2-14.7 INR in platelet poor plasma or blood by coagulation as say 1.0 0.8-1.4 Activated partial thromboplastin time (a PTT) in platelet poor plasma bycoagulation assay - 08/04/16 08:11 Activated partial thromboplastin time (a PTT) in platelet poor plasma bycoagulation assay 30 s 24-35 Comprehensive metabolic panel - 08/04/16 08:11 Serum or plasma sodium measurement (moles/volume) 140 mmol/L 135-145 Serum or plasma potassium measurement (moles/volume) 3.8 mmol/L 3.6-5.0 Serum or plasma chloride measurement (moles/volume) 106 mmol/L 98-107 Carbon dioxide 24 mmol/L 21-32 Serum or plasma anion gap determination (moles/volume) 10 mmol/L 5-14 Serum or plasma urea nitrogen measurement (mass/volume ) 17 mg/dL 7-18 Serum or plasma creatinine measurement (mass/volume) 2.36 mg/dL 0.60-1.30 Serum or plasma urea nitrogen/creatinine mass ratio 7 NRG Serum or plasma creatinine measurement w ith calculation of estimated glomerular filtration rate 36 NRG Serum or plasma glucose measurement (mass/volume) 209 mg/dL 70-105 Serum or plasma calcium measurement (mass/volume) 9.0 mg/dL 8.5-10.1 Serum or plasma total bilirubin measurement (mass/volu me) 0.2 mg/dL 0.1-1.0 Serum or plasma alkaline phosphatase martha surement (enzymatic activity/volume) 77 U/L 40-136 Serum or plasma aspartate aminotransfera se measurement (enzymatic activity/volume) 18 U/L 5-34 Serum or plasma alanine aminotransferase measurement (enzymatic activity/volume) 23 U/L 0-55 Serum or plasma protein measurement (mass/volume) 7.2 g/dL 6.4-8.2 Serum or plasma albumin measurement (mass/volume) 3.5 g/dL 3.2-4.5 Methicillin resistant Staphylococcus aur eus (MRSA) screening culture - 08/04/16 08:11 Methicillin resistant Staphylococcus aureus (MRSA) scr eening culture NEG NRG Capillary blood glucose measurement by g lucometer (mass/volume) - 08/04/16 19:20 Capillary blood glucose measurement by glucometer (mas s/volume) 103 mg/dL 70-110 Capillary blood glucose measurement by g lucometer (mass/volume) - 08/04/16 20:54 Capillary blood glucose measurement by glucometer (mas s/volume) 102 mg/dL 70-110 Automated blood complete blood count (he mogram) panel - 08/05/16 03:27 Blood leukocytes automated count (number/volume) 13.8 10*3/uL 4.3-11.0 Blood erythrocytes automated count (number/volume) 4.06 10*6/uL 4.35-5.85 Venous blood hemoglobin measurement (mass/volume) 11.0 g/dL 13.3-17.7 Blood hematocrit (volume fraction) 34 % 40-54 Automated erythrocyte mean corpuscular volume 83 [ foz_us] 80-99 Automated erythrocyte mean corpuscular h emoglobin (mass per erythrocyte) 27 pg 25-34 Automated erythrocyte mean corpuscular h emoglobin concentration measurement (mass/volume) 33 g/dL 32-36 Automated erythrocyte distribution width ratio 16. 1 % 10.0- 14.5 Automated blood platelet count (count/volume) 250 10*3/uL 130-400 Automated blood platelet mean volume measurement 9.9 [foz_us] 7.4-10.4 Whole blood basic metabolic panel - 10/14 03:27 Serum or plasma sodium measurement (moles/volume) 142 mmol/L 135-145 Serum or plasma potassium measurement (moles/volume) 3.9 mmol/L 3.6-5.0 Serum or plasma chloride measurement (moles/volume) 110 mmol/L 98-107 Carbon dioxide 22 mmol/L 21-32 Serum or plasma anion gap determination (moles/volume) 10 mmol/L 5-14 Serum or plasma urea nitrogen measurement (mass/volume ) 16 mg/dL 7-18 Serum or plasma creatinine measurement (mass/volume) 2.03 mg/dL 0.60-1.30 Serum or plasma urea nitrogen/creatinine mass ratio 8 NRG Serum or plasma creatinine measurement w ith calculation of estimated glomerular filtration rate 43 NRG Serum or plasma glucose measurement (mass/volume) 98 mg/dL 70-105 Serum or plasma calcium measurement (mass/volume) 8.4 mg/dL 8.5-10.1 Complete urinalysis with reflex to cultu re - 09/19/16 18:23 Urine color determination YELLOW NRG Urine clarity determination CLEAR NR G Urine pH measurement by test strip 7 5-9 Specific gravity of urine by test strip 1.010 1.016-1.022 Urine protein assay by test strip, semi-quantitative 4+ NEGATIVE Urine glucose detection by automated test strip 1+ NEGATIVE Erythrocytes detection in urine sediment by light micr oscopy 2+ NEGATIVE Urine ketones detection by automated test strip NE GATIVE NEGATIVE Urine nitrite detection by test strip NEGATIVE NEGATIVE Urine total bilirubin detection by test strip NEGA TIVE NEGATIVE Urine urobilinogen measurement by automated test strip (mass/volume) NORMAL NORMAL Urine leukocyte esterase detection by dipstick 1+ NEGATIVE Automated urine sediment erythrocyte cou nt by microscopy (number/high power field) [HPF] NRG Automated urine sediment leukocyte count by microscopy (number/high power field) [HPF] NRG Bacteria detection in urine sediment by light microsco py FEW NRG Squamous epithelial cells detection in u rine sediment by light microscopy 2-5 NRG Crystals detection in urine sediment by light microsco py NONE NRG Casts detection in urine sediment by light microscopy NONE NRG Mucus detection in urine sediment by light microscopy SMALL NRG Complete urinalysis with reflex to culture YES NRG Urine drug screening test - 09/19/16 18: 23 Urine phencyclidine detection by screening method NEGATIVE NEGATIVE Urine benzodiazepines detection by screening method NEGATIVE NEGATIVE Urine cocaine detection NEGATIVE NEGATI VE Urine amphetamines detection by screening method N EGATIVE NEGATIVE Urine methamphetamine detection by screening method NEGATIVE NEGATIVE Urine cannabinoids detection by screening method P OSITIVE NEGATIVE Urine opiates detection by screening method NEGATI VE NEGATIVE Urine barbiturates detection NEGATIVE N EGATIVE Screening urine tricyclic antidepressants detection POSITIVE NEGATIVE Urine methadone detection by screening method NEGA TIVE NEGATIVE Urine oxycodone detection NEGATIVE NEGA TIVE Urine propoxyphene detection NEGATIVE N EGATIVE Bacterial urine culture - 09/19/16 18:23 Bacterial urine culture [id number] NRG COLONY COUNT 10,000/ML - 100,000/ML NRG Complete blood count (CBC) with automate d white blood cell (WBC) differential - 09/19/16 19:30 Blood leukocytes automated count (number/volume) 15.5 10*3/uL 4.3-11.0 Blood erythrocytes automated count (number/volume) 4.48 10*6/uL 4.35-5.85 Venous blood hemoglobin measurement (mass/volume) 12.4 g/dL 13.3-17.7 Blood hematocrit (volume fraction) 38 % 40-54 Automated erythrocyte mean corpuscular volume 85 [ foz_us] 80-99 Automated erythrocyte mean corpuscular h emoglobin (mass per erythrocyte) 28 pg 25-34 Automated erythrocyte mean corpuscular h emoglobin concentration measurement (mass/volume) 33 g/dL 32-36 Automated erythrocyte distribution width ratio 16. 9 % 10.0- 14.5 Automated blood platelet count (count/volume) 371 10*3/uL 130-400 Automated blood platelet mean volume measurement 9.5 [foz_us] 7.4-10.4 Automated blood neutrophils/100 leukocytes 76 % 42-75 Automated blood lymphocytes/100 leukocytes 14 % 12-44 Blood monocytes/100 leukocytes 6 % 0-12 Automated blood eosinophils/100 leukocytes 4 % 0-10 Automated blood basophils/100 leukocytes 0 % 0-10 Blood neutrophils automated count (number/volume) 11.8 10*3 1.8-7.8 Blood lymphocytes automated count (number/volume) 2.2 10*3 1.0-4.0 Blood monocytes automated count (number/volume) 0. 9 10*3 0.0-1.0 Automated eosinophil count 0.6 10*3/uL 0 .0-0.3 Automated blood basophil count (count/volume) 0.1 10*3/uL 0.0-0.1 Blood manual differential performed dete ction - 09/19/16 19:30 Blood monocytes/100 leukocytes 2 % NRG Manual blood segmented neutrophils/100 leukocytes 76 % NRG Blood band neutrophils/100 leukocytes 1 % NRG Manual blood lymphocytes/100 leukocytes 19 % NRG Manual eosinophils/100 leukocytes in nose 2 % NRG Manual blood basophils/100 leukocytes 0 % NRG Blood erythrocyte morphology finding identification NORMAL NRG Comprehensive metabolic panel - 09/19/16 19:30 Serum or plasma sodium measurement (moles/volume) 139 mmol/L 135-145 Serum or plasma potassium measurement (moles/volume) 4.2 mmol/L 3.6-5.0 Serum or plasma chloride measurement (moles/volume) 103 mmol/L 98-107 Carbon dioxide 21 mmol/L 21-32 Serum or plasma anion gap determination (moles/volume) 15 mmol/L 5-14 Serum or plasma urea nitrogen measurement (mass/volume ) 28 mg/dL 7-18 Serum or plasma creatinine measurement (mass/volume) 2.83 mg/dL 0.60-1.30 Serum or plasma urea nitrogen/creatinine mass ratio 10 NRG Serum or plasma creatinine measurement w ith calculation of estimated glomerular filtration rate 29 NRG Serum or plasma glucose measurement (mass/volume) 222 mg/dL 70-105 Serum or plasma calcium measurement (mass/volume) 9.4 mg/dL 8.5-10.1 Serum or plasma total bilirubin measurement (mass/volu me) 0.3 mg/dL 0.1-1.0 Serum or plasma alkaline phosphatase martha surement (enzymatic activity/volume) 89 U/L 40-136 Serum or plasma aspartate aminotransfera se measurement (enzymatic activity/volume) 11 U/L 5-34 Serum or plasma alanine aminotransferase measurement (enzymatic activity/volume) 16 U/L 0-55 Serum or plasma protein measurement (mass/volume) 7.6 g/dL 6.4-8.2 Serum or plasma albumin measurement (mass/volume) 3.7 g/dL 3.2-4.5 Serum or plasma uric acid measurement (m ass/volume) - 09/19/16 19:30 Serum or plasma uric acid measurement (mass/volume) 5.1 mg/dL 2.6-7.2 Serum or plasma C reactive protein measu rement (mass/volume) - 09/19/16 19:30 Serum or plasma C reactive protein measurement (mass/v olume) 3.70 mg/dL 0.00-0.50 Erythrocyte sedimentation rate by juan antonio gren method - 09/19/16 19:30 Erythrocyte sedimentation rate by westergren method 71 mm 0- 15 Capillary blood glucose measurement by g lucometer (mass/volume) - 09/19/16 19:57 Capillary blood glucose measurement by glucometer (mas s/volume) 211 mg/dL 70-110 Blood lactic acid measurement (moles/vol ume) - 09/19/16 20:40 Blood lactic acid measurement (moles/volume) 2.09 mmol/L 0.50-2.00 Bacterial blood culture - 09/19/16 20:40 Bacterial blood culture NG NRG Bacterial blood culture - 09/19/16 21:02 Bacterial blood culture NG NRG Serum or plasma lactate measurement (mol es/volume) - 09/19/16 22:45 Serum or plasma lactate measurement (moles/volume) 2.07 mmol/L 0.50-2.00 Complete blood count (CBC) with automate d white blood cell (WBC) differential - 09/20/16 06:00 Blood leukocytes automated count (number/volume) 14.6 10*3/uL 4.3-11.0 Blood erythrocytes automated count (number/volume) 4.36 10*6/uL 4.35-5.85 Venous blood hemoglobin measurement (mass/volume) 12.0 g/dL 13.3-17.7 Blood hematocrit (volume fraction) 36 % 40-54 Automated erythrocyte mean corpuscular volume 83 [ foz_us] 80-99 Automated erythrocyte mean corpuscular h emoglobin (mass per erythrocyte) 28 pg 25-34 Automated erythrocyte mean corpuscular h emoglobin concentration measurement (mass/volume) 33 g/dL 32-36 Automated erythrocyte distribution width ratio 16. 2 % 10.0- 14.5 Automated blood platelet count (count/volume) 378 10*3/uL 130-400 Automated blood platelet mean volume measurement 10.4 [foz_us] 7.4-10.4 Automated blood neutrophils/100 leukocytes 94 % 42-75 Automated blood lymphocytes/100 leukocytes 5 % 12-44 Blood monocytes/100 leukocytes 1 % 0-12 Automated blood eosinophils/100 leukocytes 0 % 0-10 Automated blood basophils/100 leukocytes 0 % 0-10 Blood neutrophils automated count (number/volume) 13.7 10*3 1.8-7.8 Blood lymphocytes automated count (number/volume) 0.8 10*3 1.0-4.0 Blood monocytes automated count (number/volume) 0. 1 10*3 0.0-1.0 Automated eosinophil count 0.0 10*3/uL 0 .0-0.3 Automated blood basophil count (count/volume) 0.0 10*3/uL 0.0-0.1 Comprehensive metabolic panel - 09/20/16 06:10 Serum or plasma sodium measurement (moles/volume) 132 mmol/L 135-145 Serum or plasma potassium measurement (moles/volume) 5.5 mmol/L 3.6-5.0 Serum or plasma chloride measurement (moles/volume) 100 mmol/L 98-107 Carbon dioxide 21 mmol/L 21-32 Serum or plasma anion gap determination (moles/volume) 11 mmol/L 5-14 Serum or plasma urea nitrogen measurement (mass/volume ) 34 mg/dL 7-18 Serum or plasma creatinine measurement (mass/volume) 2.87 mg/dL 0.60-1.30 Serum or plasma urea nitrogen/creatinine mass ratio 12 NRG Serum or plasma creatinine measurement w ith calculation of estimated glomerular filtration rate 29 NRG Serum or plasma glucose measurement (mass/volume) 502 mg/dL 70-105 Serum or plasma calcium measurement (mass/volume) 9.0 mg/dL 8.5-10.1 Serum or plasma total bilirubin measurement (mass/volu me) 0.3 mg/dL 0.1-1.0 Serum or plasma alkaline phosphatase martha surement (enzymatic activity/volume) 82 U/L 40-136 Serum or plasma aspartate aminotransfera se measurement (enzymatic activity/volume) 11 U/L 5-34 Serum or plasma alanine aminotransferase measurement (enzymatic activity/volume) 15 U/L 0-55 Serum or plasma protein measurement (mass/volume) 7.1 g/dL 6.4-8.2 Serum or plasma albumin measurement (mass/volume) 3.3 g/dL 3.2-4.5 Body fluid cell count - 09/20/16 08:07 Specimen source identification of body fluid SYNOV IAL NRG Evaluation of color of body fluid SL XANTHO NRG Determination of appearance of body fluid MOD CLDY NRG Body fluid leukocytes count (number/volume) 5900 / uL NRG Body fluid erythrocytes count (number/volume) 3000 /uL NRG Manual body fluid polymorphonuclear cells/100 leukocyt es 90 % NRG Manual body fluid mononuclear cells/100 leukocytes 0 % NRG Manual body fluid lymphocytes/100 leukocytes 6 % NRG Other cells/100 leukocytes in body fluid by manual cou nt 4 % NRG * Body fluid crystals type by light micr oscopy - 09/20/16 08:07 * Body fluid crystals type by light microscopy SEE FOOTNOTE NRG Bacteria identification in isolate by an aerobe culture - 09/20/16 08:07 Bacteria identification in isolate by anaerobe culture [facility] Gram stain microscopy - 09/20/16 08:07 GRAM STAIN RESULT NUMEROUS WBC'S, NO BACTERIA OBSE RVED NRG Mycobacterium species detection by organ ism specific culture - 09/20/16 08:07 Mycobacterium species detection by organism specific c ulture FOOTNOTE NRG Bacteria identification in wound by cult ure - 09/20/16 08:07 Bacteria identification in wound by culture NG NRG Capillary blood glucose measurement by g lucometer (mass/volume) - 09/20/16 10:53 Capillary blood glucose measurement by glucometer (mas s/volume) 469 mg/dL 70-110 Automated blood complete blood count (he mogram) panel - 11/29/16 17:40 Blood leukocytes automated count (number/volume) 10.9 10*3/uL 4.3-11.0 Blood erythrocytes automated count (number/volume) 4.64 10*6/uL 4.35-5.85 Venous blood hemoglobin measurement (mass/volume) 12.6 g/dL 13.3-17.7 Blood hematocrit (volume fraction) 38 % 40-54 Automated erythrocyte mean corpuscular volume 83 [ foz_us] 80-99 Automated erythrocyte mean corpuscular h emoglobin (mass per erythrocyte) 27 pg 25-34 Automated erythrocyte mean corpuscular h emoglobin concentration measurement (mass/volume) 33 g/dL 32-36 Automated erythrocyte distribution width ratio 15. 0 % 10.0- 14.5 Automated blood platelet count (count/volume) 256 10*3/uL 130-400 Automated blood platelet mean volume measurement 10.2 [foz_us] 7.4-10.4 Serum or plasma renal function panel (Na , K, Cl, CO2, BUN, Cr, glucose,Ca, phos, alb) - 11/29/16 17:40 Serum or plasma sodium measurement (moles/volume) 140 mmol/L 135-145 Serum or plasma potassium measurement (moles/volume) 4.2 mmol/L 3.6-5.0 Serum or plasma chloride measurement (moles/volume) 106 mmol/L 98-107 Carbon dioxide 23 mmol/L 21-32 Serum or plasma anion gap determination (moles/volume) 11 mmol/L 5-14 Serum or plasma urea nitrogen measurement (mass/volume ) 38 mg/dL 7-18 Serum or plasma creatinine measurement (mass/volume) 3.45 mg/dL 0.60-1.30 Serum or plasma urea nitrogen/creatinine mass ratio 11 NRG Serum or plasma creatinine measurement w ith calculation of estimated glomerular filtration rate 23 NRG Serum or plasma glucose measurement (mass/volume) 168 mg/dL 70-105 Serum or plasma calcium measurement (mass/volume) 9.3 mg/dL 8.5-10.1 Serum or plasma albumin measurement (mass/volume) 3.6 g/dL 3.2-4.5 Serum or plasma phosphate measurement (mass/volume) 3.5 mg/dL 2.3-4.7 Serum or plasma uric acid measurement (m ass/volume) - 11/29/16 17:40 Serum or plasma uric acid measurement (mass/volume) 6.9 mg/dL 2.6-7.2 Magnesium - 11/29/16 17:40 Magnesium 1.9 mg/dL 1.8-2.4 Serum or plasma intact pararthyroid horm one measurement (mass/volume) - 11/29/16 17:40 Serum or plasma intact parathyroid hormone measurement (mass/volume) 89.0 pg/mL 10.0-65.0 Bio-intact parathyroid hormone (PTH) measurement with calcium 9.1 % 8.5-10.5 25-hydroxyvitamin D measurement - 17:40 25-hydroxy vitamin D measurement 8 % 30-100 Complete urinalysis with reflex to cultu re - 12/01/16 10:03 Urine color determination YELLOW NRG Urine clarity determination CLEAR NR G Urine pH measurement by test strip 5 5-9 Specific gravity of urine by test strip 1.015 1.016-1.022 Urine protein assay by test strip, semi-quantitative 4+ NEGATIVE Urine glucose detection by automated test strip NE GATIVE NEGATIVE Erythrocytes detection in urine sediment by light micr oscopy 3+ NEGATIVE Urine ketones detection by automated test strip NE GATIVE NEGATIVE Urine nitrite detection by test strip NEGATIVE NEGATIVE Urine total bilirubin detection by test strip NEGA TIVE NEGATIVE Urine urobilinogen measurement by automated test strip (mass/volume) NORMAL NORMAL Urine leukocyte esterase detection by dipstick 1+ NEGATIVE Automated urine sediment erythrocyte cou nt by microscopy (number/high power field) [HPF] NRG Automated urine sediment leukocyte count by microscopy (number/high power field) [HPF] NRG Bacteria detection in urine sediment by light microsco py TRACE NRG Squamous epithelial cells detection in u rine sediment by light microscopy 2-5 NRG Crystals detection in urine sediment by light microsco py NONE NRG Casts detection in urine sediment by light microscopy NONE NRG Mucus detection in urine sediment by light microscopy NEGATIVE NRG Complete urinalysis with reflex to culture YES NRG Urine protein/creatinine mass ratio - 10:03 Urine protein measurement (mass/volume) 236 mg/dL 6-12 Urine creatinine measurement (mass/volume) 69 mg/d L 30-125 Urine protein/creatinine mass ratio 3.42 NRG Bacterial urine culture - 12/01/16 10:03 URINE CULTURE RESULTS <10,000/ML NRG Complete blood count (CBC) with automate d white blood cell (WBC) differential - 02/08/17 15:58 Blood leukocytes automated count (number/volume) 15.4 10*3/uL 4.3-11.0 Blood erythrocytes automated count (number/volume) 5.16 10*6/uL 4.35-5.85 Venous blood hemoglobin measurement (mass/volume) 14.3 g/dL 13.3-17.7 Blood hematocrit (volume fraction) 42 % 40-54 Automated erythrocyte mean corpuscular volume 81 [ foz_us] 80-99 Automated erythrocyte mean corpuscular h emoglobin (mass per erythrocyte) 28 pg 25-34 Automated erythrocyte mean corpuscular h emoglobin concentration measurement (mass/volume) 34 g/dL 32-36 Automated erythrocyte distribution width ratio 15. 4 % 10.0- 14.5 Automated blood platelet count (count/volume) 222 10*3/uL 130-400 Automated blood platelet mean volume measurement 10.0 [foz_us] 7.4-10.4 Automated blood neutrophils/100 leukocytes 73 % 42-75 Automated blood lymphocytes/100 leukocytes 18 % 12-44 Blood monocytes/100 leukocytes 6 % 0-12 Automated blood eosinophils/100 leukocytes 2 % 0-10 Automated blood basophils/100 leukocytes 1 % 0-10 Blood neutrophils automated count (number/volume) 11.3 10*3 1.8-7.8 Blood lymphocytes automated count (number/volume) 2.8 10*3 1.0-4.0 Blood monocytes automated count (number/volume) 0. 9 10*3 0.0-1.0 Automated eosinophil count 0.3 10*3/uL 0 .0-0.3 Automated blood basophil count (count/volume) 0.1 10*3/uL 0.0-0.1 Blood manual differential performed dete ction - 02/08/17 15:58 Blood monocytes/100 leukocytes 1 % NRG Manual blood segmented neutrophils/100 leukocytes 71 % NRG Blood band neutrophils/100 leukocytes 1 % NRG Manual blood lymphocytes/100 leukocytes 23 % NRG Manual eosinophils/100 leukocytes in nose 4 % NRG Manual blood basophils/100 leukocytes 0 % NRG Blood erythrocyte morphology finding identification NORMAL NRG Whole blood basic metabolic panel - 01/28 04/16 15:58 Serum or plasma sodium measurement (moles/volume) 137 mmol/L 135-145 Serum or plasma potassium measurement (moles/volume) 4.9 mmol/L 3.6-5.0 Serum or plasma chloride measurement (moles/volume) 100 mmol/L 98-107 Carbon dioxide 23 mmol/L 21-32 Serum or plasma anion gap determination (moles/volume) 14 mmol/L 5-14 Serum or plasma urea nitrogen measurement (mass/volume ) 31 mg/dL 7-18 Serum or plasma creatinine measurement (mass/volume) 3.32 mg/dL 0.60-1.30 Serum or plasma urea nitrogen/creatinine mass ratio 9 NRG Serum or plasma creatinine measurement w ith calculation of estimated glomerular filtration rate 24 NRG Serum or plasma glucose measurement (mass/volume) 153 mg/dL 70-105 Serum or plasma calcium measurement (mass/volume) 9.4 mg/dL 8.5-10.1 Serum or plasma C reactive protein measu rement (mass/volume) - 02/08/17 15:58 Serum or plasma C reactive protein measurement (mass/v olume) 2.50 mg/dL 0.00-0.50 Erythrocyte sedimentation rate by juan antonio gren method - 02/08/17 15:58 Erythrocyte sedimentation rate by westergren method 25 mm 0- 15 Gram stain microscopy - 02/08/17 16:09 GRAM STAIN RESULT NO BACTERIA OBSERVED NRG Bacterial body fluid culture - 02/08/17 16:09 Bacterial body fluid culture NG N RG Complete blood count (CBC) with automate d white blood cell (WBC) differential - 02/13/17 19:35 Blood leukocytes automated count (number/volume) 13.0 10*3/uL 4.3-11.0 Blood erythrocytes automated count (number/volume) 4.29 10*6/uL 4.35-5.85 Venous blood hemoglobin measurement (mass/volume) 11.6 g/dL 13.3-17.7 Blood hematocrit (volume fraction) 35 % 40-54 Automated erythrocyte mean corpuscular volume 82 [ foz_us] 80-99 Automated erythrocyte mean corpuscular h emoglobin (mass per erythrocyte) 27 pg 25-34 Automated erythrocyte mean corpuscular h emoglobin concentration measurement (mass/volume) 33 g/dL 32-36 Automated erythrocyte distribution width ratio 14. 9 % 10.0- 14.5 Automated blood platelet count (count/volume) 261 10*3/uL 130-400 Automated blood platelet mean volume measurement 9.8 [foz_us] 7.4-10.4 Automated blood neutrophils/100 leukocytes 76 % 42-75 Automated blood lymphocytes/100 leukocytes 14 % 12-44 Blood monocytes/100 leukocytes 6 % 0-12 Automated blood eosinophils/100 leukocytes 4 % 0-10 Automated blood basophils/100 leukocytes 0 % 0-10 Blood neutrophils automated count (number/volume) 9.8 10*3 1.8-7.8 Blood lymphocytes automated count (number/volume) 1.8 10*3 1.0-4.0 Blood monocytes automated count (number/volume) 0. 8 10*3 0.0-1.0 Automated eosinophil count 0.6 10*3/uL 0 .0-0.3 Automated blood basophil count (count/volume) 0.1 10*3/uL 0.0-0.1 Erythrocyte sedimentation rate by juan antonio gren method - 02/13/17 19:35 Erythrocyte sedimentation rate by westergren method 55 mm 0- 15 Comprehensive metabolic panel - 02/13/17 19:35 Serum or plasma sodium measurement (moles/volume) 139 mmol/L 135-145 Serum or plasma potassium measurement (moles/volume) 5.1 mmol/L 3.6-5.0 Serum or plasma chloride measurement (moles/volume) 106 mmol/L 98-107 Carbon dioxide 22 mmol/L 21-32 Serum or plasma anion gap determination (moles/volume) 11 mmol/L 5-14 Serum or plasma urea nitrogen measurement (mass/volume ) 42 mg/dL 7-18 Serum or plasma creatinine measurement (mass/volume) 3.86 mg/dL 0.60-1.30 Serum or plasma urea nitrogen/creatinine mass ratio 11 NRG Serum or plasma creatinine measurement w ith calculation of estimated glomerular filtration rate 20 NRG Serum or plasma glucose measurement (mass/volume) 149 mg/dL 70-105 Serum or plasma calcium measurement (mass/volume) 9.2 mg/dL 8.5-10.1 Serum or plasma total bilirubin measurement (mass/volu me) 0.2 mg/dL 0.1-1.0 Serum or plasma alkaline phosphatase martha surement (enzymatic activity/volume) 79 U/L 40-136 Serum or plasma aspartate aminotransfera se measurement (enzymatic activity/volume) 21 U/L 5-34 Serum or plasma alanine aminotransferase measurement (enzymatic activity/volume) 16 U/L 0-55 Serum or plasma protein measurement (mass/volume) 7.5 g/dL 6.4-8.2 Serum or plasma albumin measurement (mass/volume) 3.5 g/dL 3.2-4.5 Serum or plasma uric acid measurement (m ass/volume) - 02/13/17 19:35 Serum or plasma uric acid measurement (mass/volume) 5.0 mg/dL 2.6-7.2 Complete urinalysis with reflex to cultu re - 02/13/17 20:30 Urine color determination YELLOW NRG Urine clarity determination CLEAR NR G Urine pH measurement by test strip 6 5-9 Specific gravity of urine by test strip 1.015 1.016-1.022 Urine protein assay by test strip, semi-quantitative 4+ NEGATIVE Urine glucose detection by automated test strip NE GATIVE NEGATIVE Erythrocytes detection in urine sediment by light micr oscopy 3+ NEGATIVE Urine ketones detection by automated test strip NE GATIVE NEGATIVE Urine nitrite detection by test strip NEGATIVE NEGATIVE Urine total bilirubin detection by test strip NEGA TIVE NEGATIVE Urine urobilinogen measurement by automated test strip (mass/volume) NORMAL NORMAL Urine leukocyte esterase detection by dipstick NEG ATIVE NEGATIVE Automated urine sediment erythrocyte cou nt by microscopy (number/high power field) [HPF] NRG Automated urine sediment leukocyte count by microscopy (number/high power field) [HPF] NRG Bacteria detection in urine sediment by light microsco py TRACE NRG Squamous epithelial cells detection in u rine sediment by light microscopy 2-5 NRG Crystals detection in urine sediment by light microsco py NONE NRG Casts detection in urine sediment by light microscopy NONE NRG Mucus detection in urine sediment by light microscopy NEGATIVE NRG Complete urinalysis with reflex to culture YES NRG Urine drug screening test - 02/13/17 20: 30 Urine phencyclidine detection by screening method NEGATIVE NEGATIVE Urine benzodiazepines detection by screening method NEGATIVE NEGATIVE Urine cocaine detection NEGATIVE NEGATI VE Urine amphetamines detection by screening method N EGATIVE NEGATIVE Urine methamphetamine detection by screening method NEGATIVE NEGATIVE Urine cannabinoids detection by screening method P OSITIVE NEGATIVE Urine opiates detection by screening method POSITI VE NEGATIVE Urine barbiturates detection NEGATIVE N EGATIVE Screening urine tricyclic antidepressants detection POSITIVE NEGATIVE Urine methadone detection by screening method NEGA TIVE NEGATIVE Urine oxycodone detection NEGATIVE NEGA TIVE Urine propoxyphene detection NEGATIVE N EGATIVE Bacterial urine culture - 02/13/17 20:30 Bacterial urine culture [id number] NRG COLONY COUNT <10,000 NRG Comprehensive metabolic panel - 07/05/17 09:44 Serum or plasma sodium measurement (moles/volume) 139 mmol/L 135-145 Serum or plasma potassium measurement (moles/volume) 4.5 mmol/L 3.6-5.0 Serum or plasma chloride measurement (moles/volume) 105 mmol/L 98-107 Carbon dioxide 24 mmol/L 21-32 Serum or plasma anion gap determination (moles/volume) 10 mmol/L 5-14 Serum or plasma urea nitrogen measurement (mass/volume ) 31 mg/dL 7-18 Serum or plasma creatinine measurement (mass/volume) 3.92 mg/dL 0.60-1.30 Serum or plasma urea nitrogen/creatinine mass ratio 8 NRG Serum or plasma creatinine measurement w ith calculation of estimated glomerular filtration rate 20 NRG Serum or plasma glucose measurement (mass/volume) 253 mg/dL 70-105 Serum or plasma calcium measurement (mass/volume) 8.6 mg/dL 8.5-10.1 Serum or plasma total bilirubin measurement (mass/volu me) 0.2 mg/dL 0.1-1.0 Serum or plasma alkaline phosphatase martha surement (enzymatic activity/volume) 81 U/L 40-136 Serum or plasma aspartate aminotransfera se measurement (enzymatic activity/volume) 24 U/L 5-34 Serum or plasma alanine aminotransferase measurement (enzymatic activity/volume) 20 U/L 0-55 Serum or plasma protein measurement (mass/volume) 7.3 g/dL 6.4-8.2 Serum or plasma albumin measurement (mass/volume) 3.5 g/dL 3.2-4.5 LIPID PANEL - 10/12/17 10:53 CHOLESTEROL, TOTAL 214 mg/dL <200 HDL CHOLESTEROL 25 mg/dL >40 TRIGLYCERIDES 835 mg/dL <150 LDL-CHOLESTEROL mg/dL (calc) NRG CHOL/HDLC RATIO 8.6 (calc) <5.0 NON HDL CHOLESTEROL 189 mg/dL (calc) <13 0 PROTEIN, TOTAL W/CREAT, RANDOM URINE - 0 11/04/17 16:52 CREATININE, RANDOM URINE 123 mg/dL 20-37 0 PROTEIN/CREATININE RATIO 3488 mg/g creat 22-128 PROTEIN, TOTAL, RANDOM UR 429 mg/dL 5-25 CBC - 11/04/17 16:52 WHITE BLOOD CELL COUNT 13.6 Thousand/uL 3.8-10.8 RED BLOOD CELL COUNT 4.16 Million/uL 4.2 0-5.80 HEMOGLOBIN 11.2 g/dL 13.2-17.1 HEMATOCRIT 34.3 % 38.5-50.0 MCV 82.5 fL 80.0-100.0 MCH 26.9 pg 27.0-33.0 MCHC 32.7 g/dL 32.0-36.0 RDW 14.8 % 11.0-15.0 PLATELET COUNT 257 Thousand/uL 140-400 MPV 9.9 fL 7.5-12.5 ABSOLUTE NEUTROPHILS 9670 cells/uL 1500- 7800 ABSOLUTE LYMPHOCYTES 2910 cells/uL 850-3 900 ABSOLUTE MONOCYTES 585 cells/uL 200-950 ABSOLUTE EOSINOPHILS 354 cells/uL 15-500 ABSOLUTE BASOPHILS 82 cells/uL 0-200 NEUTROPHILS 71.1 % NRG LYMPHOCYTES 21.4 % NRG MONOCYTES 4.3 % NRG EOSINOPHILS 2.6 % NRG BASOPHILS 0.6 % NRG UA W/ MICROSCOPY - 11/04/17 16:52 COLOR YELLOW YELLOW APPEARANCE CLEAR CLEAR SPECIFIC GRAVITY 1.013 1.001-1.035 PH 6.0 5.0-8.0 GLUCOSE NEGATIVE NEGATIVE BILIRUBIN NEGATIVE NEGATIVE KETONES NEGATIVE NEGATIVE OCCULT BLOOD TRACE NEGATIVE PROTEIN 3+ NEGATIVE NITRITE NEGATIVE NEGATIVE LEUKOCYTE ESTERASE NEGATIVE NEGATIVE WBC 6-10 /HPF < OR = 5 RBC 0-2 /HPF < OR = 2 SQUAMOUS EPITHELIAL CELLS 6-10 /HPF < OR = 5 BACTERIA NONE SEEN /HPF NONE SEEN HYALINE CAST NONE SEEN /LPF NONE SEEN Complete blood count (CBC) with automate d white blood cell (WBC) differential - 12/06/17 14:32 Blood leukocytes automated count (number/volume) 12.5 10*3/uL 4.3-11.0 Blood erythrocytes automated count (number/volume) 4.23 10*6/uL 4.35-5.85 Venous blood hemoglobin measurement (mass/volume) 11.3 g/dL 13.3-17.7 Blood hematocrit (volume fraction) 35 % 40-54 Automated erythrocyte mean corpuscular volume 82 [ foz_us] 80-99 Automated erythrocyte mean corpuscular h emoglobin (mass per erythrocyte) 27 pg 25-34 Automated erythrocyte mean corpuscular h emoglobin concentration measurement (mass/volume) 33 g/dL 32-36 Automated erythrocyte distribution width ratio 15. 6 % 10.0- 14.5 Automated blood platelet count (count/volume) 274 10*3/uL 130-400 Automated blood platelet mean volume measurement 10.3 [foz_us] 7.4-10.4 Automated blood neutrophils/100 leukocytes 73 % 42-75 Automated blood lymphocytes/100 leukocytes 18 % 12-44 Blood monocytes/100 leukocytes 5 % 0-12 Automated blood eosinophils/100 leukocytes 4 % 0-10 Automated blood basophils/100 leukocytes 0 % 0-10 Blood neutrophils automated count (number/volume) 9.2 10*3 1.8-7.8 Blood lymphocytes automated count (number/volume) 2.2 10*3 1.0-4.0 Blood monocytes automated count (number/volume) 0. 6 10*3 0.0-1.0 Automated eosinophil count 0.5 10*3/uL 0 .0-0.3 Automated blood basophil count (count/volume) 0.1 10*3/uL 0.0-0.1 PT panel in platelet poor plasma by coag ulation assay - 12/06/17 14:32 Prothrombin time (PT) in platelet poor plasma by coagu lation assay 13.2 s 12.2-14.7 INR in platelet poor plasma or blood by coagulation as say 1.0 0.8-1.4 Activated partial thromboplastin time (a PTT) in platelet poor plasma bycoagulation assay - 12/06/17 14:32 Activated partial thromboplastin time (a PTT) in platelet poor plasma bycoagulation assay 21 s 24-35 Fibrin D-dimer FEU measurement in platel et poor plasma (mass/volume) - 12/06/17 14:32 Fibrin D-dimer FEU measurement in platelet poor plasma (mass/volume) 0.87 ug/mL 0.00-0.49 Comprehensive metabolic panel - 12/06/17 14:32 Serum or plasma sodium measurement (moles/volume) 138 mmol/L 135-145 Serum or plasma potassium measurement (moles/volume) 5.1 mmol/L 3.6-5.0 Serum or plasma chloride measurement (moles/volume) 106 mmol/L 98-107 Carbon dioxide 22 mmol/L 21-32 Serum or plasma anion gap determination (moles/volume) 10 mmol/L 5-14 Serum or plasma urea nitrogen measurement (mass/volume ) 39 mg/dL 7-18 Serum or plasma creatinine measurement (mass/volume) 4.90 mg/dL 0.60-1.30 Serum or plasma urea nitrogen/creatinine mass ratio 8 NRG Serum or plasma creatinine measurement w ith calculation of estimated glomerular filtration rate 15 NRG Serum or plasma glucose measurement (mass/volume) 123 mg/dL 70-105 Serum or plasma calcium measurement (mass/volume) 8.9 mg/dL 8.5-10.1 Serum or plasma total bilirubin measurement (mass/volu me) 0.3 mg/dL 0.1-1.0 Serum or plasma alkaline phosphatase martha surement (enzymatic activity/volume) 71 U/L 40-136 Serum or plasma aspartate aminotransfera se measurement (enzymatic activity/volume) 23 U/L 5-34 Serum or plasma alanine aminotransferase measurement (enzymatic activity/volume) 19 U/L 0-55 Serum or plasma protein measurement (mass/volume) 7.4 g/dL 6.4-8.2 Serum or plasma albumin measurement (mass/volume) 3.7 g/dL 3.2-4.5 CALCIUM CORRECTED 9.1 mg/dL 8.5-10.1 Magnesium - 12/06/17 14:32 Magnesium 1.7 mg/dL 1.8-2.4 Serum or plasma troponin i.cardiac measu rement (mass/volume) - 12/06/17 14:32 Serum or plasma troponin i.cardiac measurement (mass/v olume) < ng/mL <0.30 Myoglobin, serum - 12/06/17 14:32 Myoglobin, serum 246.2 ng/mL 10.0-92.0 Serum or plasma lithium measurement (mol es/volume) - 12/06/17 14:32 BNP level 43.0 pg/mL <100.0 URIC ACID, SERUM - 12/14/17 14:13 URIC ACID 5.6 mg/dL 4.0-8.0 PTH (INTACT) - 01/18/18 13:41 CALCIUM 8.4 mg/dL 8.6-10.3 PARATHYROID HORMONE, INTACT 209 pg/mL 14 -64 VITAMIN D, 25-H - 01/18/18 13:41 VITAMIN D,25-OH,TOTAL,IA 8 ng/mL 30-10 0 Automated blood complete blood count (he mogram) panel - 03/23/18 14:13 Blood leukocytes automated count (number/volume) 12.0 10*3/uL 4.3-11.0 Blood erythrocytes automated count (number/volume) 3.76 10*6/uL 4.35-5.85 Venous blood hemoglobin measurement (mass/volume) 9.8 g/dL 13.3-17.7 Blood hematocrit (volume fraction) 31 % 40-54 Automated erythrocyte mean corpuscular volume 82 [ foz_us] 80-99 Automated erythrocyte mean corpuscular h emoglobin (mass per erythrocyte) 26 pg 25-34 Automated erythrocyte mean corpuscular h emoglobin concentration measurement (mass/volume) 32 g/dL 32-36 Automated erythrocyte distribution width ratio 16. 1 % 10.0- 14.5 Automated blood platelet count (count/volume) 256 10*3/uL 130-400 Automated blood platelet mean volume measurement 9.0 [foz_us] 7.4-10.4 Serum or plasma renal function panel (Na , K, Cl, CO2, BUN, Cr, glucose,Ca, phos, alb) - 03/23/18 14:13 Serum or plasma sodium measurement (moles/volume) 144 mmol/L 135-145 Serum or plasma potassium measurement (moles/volume) 4.7 mmol/L 3.6-5.0 Serum or plasma chloride measurement (moles/volume) 109 mmol/L 98-107 Carbon dioxide 25 mmol/L 21-32 Serum or plasma anion gap determination (moles/volume) 10 mmol/L 5-14 Serum or plasma urea nitrogen measurement (mass/volume ) 44 mg/dL 7-18 Serum or plasma creatinine measurement (mass/volume) 5.90 mg/dL 0.60-1.30 Serum or plasma urea nitrogen/creatinine mass ratio 7 NRG Serum or plasma creatinine measurement w ith calculation of estimated glomerular filtration rate 12 NRG Serum or plasma glucose measurement (mass/volume) 95 mg/dL 70-105 Serum or plasma calcium measurement (mass/volume) 8.4 mg/dL 8.5-10.1 Serum or plasma albumin measurement (mass/volume) 3.5 g/dL 3.2-4.5 Serum or plasma phosphate measurement (mass/volume) 4.1 mg/dL 2.3-4.7 Serum or plasma uric acid measurement (m ass/volume) - 03/23/18 14:13 Serum or plasma uric acid measurement (mass/volume) 5.0 mg/dL 2.6-7.2 Complete blood count (CBC) with automate d white blood cell (WBC) differential - 06/12/18 14:12 Blood leukocytes automated count (number/volume) 13.1 10*3/uL 4.3-11.0 Blood erythrocytes automated count (number/volume) 4.12 10*6/uL 4.35-5.85 Venous blood hemoglobin measurement (mass/volume) 10.9 g/dL 13.3-17.7 Blood hematocrit (volume fraction) 33 % 40-54 Automated erythrocyte mean corpuscular volume 80 [ foz_us] 80-99 Automated erythrocyte mean corpuscular h emoglobin (mass per erythrocyte) 26 pg 25-34 Automated erythrocyte mean corpuscular h emoglobin concentration measurement (mass/volume) 33 g/dL 32-36 Automated erythrocyte distribution width ratio 17. 4 % 10.0- 14.5 Automated blood platelet count (count/volume) 258 10*3/uL 130-400 Automated blood platelet mean volume measurement 10.1 [foz_us] 7.4-10.4 Automated blood neutrophils/100 leukocytes 74 % 42-75 Automated blood lymphocytes/100 leukocytes 18 % 12-44 Blood monocytes/100 leukocytes 6 % 0-12 Automated blood eosinophils/100 leukocytes 2 % 0-10 Automated blood basophils/100 leukocytes 1 % 0-10 Blood neutrophils automated count (number/volume) 9.7 10*3 1.8-7.8 Blood lymphocytes automated count (number/volume) 2.4 10*3 1.0-4.0 Blood monocytes automated count (number/volume) 0. 7 10*3 0.0-1.0 Automated eosinophil count 0.2 10*3/uL 0 .0-0.3 Automated blood basophil count (count/volume) 0.1 10*3/uL 0.0-0.1 Comprehensive metabolic panel - 06/12/18 14:12 Serum or plasma sodium measurement (moles/volume) 140 mmol/L 135-145 Serum or plasma potassium measurement (moles/volume) 4.7 mmol/L 3.6-5.0 Serum or plasma chloride measurement (moles/volume) 108 mmol/L 98-107 Carbon dioxide 21 mmol/L 21-32 Serum or plasma anion gap determination (moles/volume) 11 mmol/L 5-14 Serum or plasma urea nitrogen measurement (mass/volume ) 72 mg/dL 7-18 Serum or plasma creatinine measurement (mass/volume) 8.27 mg/dL 0.60-1.30 Serum or plasma urea nitrogen/creatinine mass ratio 9 NRG Serum or plasma creatinine measurement w ith calculation of estimated glomerular filtration rate 8 NRG Serum or plasma glucose measurement (mass/volume) 86 mg/dL 70-105 Serum or plasma calcium measurement (mass/volume) 9.2 mg/dL 8.5-10.1 Serum or plasma total bilirubin measurement (mass/volu me) 0.3 mg/dL 0.1-1.0 Serum or plasma alkaline phosphatase martha surement (enzymatic activity/volume) 71 U/L 40-136 Serum or plasma aspartate aminotransfera se measurement (enzymatic activity/volume) 17 U/L 5-34 Serum or plasma alanine aminotransferase measurement (enzymatic activity/volume) 14 U/L 0-55 Serum or plasma protein measurement (mass/volume) 7.9 g/dL 6.4-8.2 Serum or plasma albumin measurement (mass/volume) 3.8 g/dL 3.2-4.5 CALCIUM CORRECTED 9.4 mg/dL 8.5-10.1 Magnesium - 06/12/18 14:12 Magnesium 2.2 mg/dL 1.8-2.4 Serum or plasma C reactive protein measu rement (mass/volume) - 06/12/18 14:12 Serum or plasma C reactive protein measurement (mass/v olume) 1.87 mg/dL 0.00-0.50 Automated blood complete blood count (he mogram) panel - 07/10/18 17:44 Blood leukocytes automated count (number/volume) 13.0 10*3/uL 4.3-11.0 Blood erythrocytes automated count (number/volume) 3.51 10*6/uL 4.35-5.85 Venous blood hemoglobin measurement (mass/volume) 9.1 g/dL 13.3-17.7 Blood hematocrit (volume fraction) 29 % 40-54 Automated erythrocyte mean corpuscular volume 82 [ foz_us] 80-99 Automated erythrocyte mean corpuscular h emoglobin (mass per erythrocyte) 26 pg 25-34 Automated erythrocyte mean corpuscular h emoglobin concentration measurement (mass/volume) 32 g/dL 32-36 Automated erythrocyte distribution width ratio 17. 3 % 10.0- 14.5 Automated blood platelet count (count/volume) 218 10*3/uL 130-400 Automated blood platelet mean volume measurement 10.6 [foz_us] 7.4-10.4 Serum or plasma renal function panel (Na , K, Cl, CO2, BUN, Cr, glucose,Ca, phos, alb) - 07/10/18 17:44 Serum or plasma sodium measurement (moles/volume) 144 mmol/L 135-145 Serum or plasma potassium measurement (moles/volume) 5.2 mmol/L 3.6-5.0 Serum or plasma chloride measurement (moles/volume) 110 mmol/L 98-107 Carbon dioxide 17 mmol/L 21-32 Serum or plasma anion gap determination (moles/volume) 17 mmol/L 5-14 Serum or plasma urea nitrogen measurement (mass/volume ) 74 mg/dL 7-18 Serum or plasma creatinine measurement (mass/volume) 8.63 mg/dL 0.60-1.30 Serum or plasma urea nitrogen/creatinine mass ratio 9 NRG Serum or plasma creatinine measurement w ith calculation of estimated glomerular filtration rate 8 NRG Serum or plasma glucose measurement (mass/volume) 79 mg/dL 70-105 Serum or plasma calcium measurement (mass/volume) 8.0 mg/dL 8.5-10.1 Serum or plasma albumin measurement (mass/volume) 3.9 g/dL 3.2-4.5 Serum or plasma phosphate measurement (mass/volume) 5.5 mg/dL 2.3-4.7 Serum or plasma uric acid measurement (m ass/volume) - 07/10/18 17:44 Serum or plasma uric acid measurement (mass/volume) 5.6 mg/dL 2.6-7.2 Whole blood hemoglobin and hematocrit pa sangeeta - 07/13/18 16:08 Venous blood hemoglobin measurement (mass/volume) 10.3 g/dL 13.3-17.7 Blood hematocrit (volume fraction) 32 % 40-54 Serum or plasma renal function panel (Na , K, Cl, CO2, BUN, Cr, glucose,Ca, phos, alb) - 07/13/18 16:08 Serum or plasma sodium measurement (moles/volume) 140 mmol/L 135-145 Serum or plasma potassium measurement (moles/volume) 4.6 mmol/L 3.6-5.0 Serum or plasma chloride measurement (moles/volume) 111 mmol/L 98-107 Carbon dioxide 16 mmol/L 21-32 Serum or plasma anion gap determination (moles/volume) 13 mmol/L 5-14 Serum or plasma urea nitrogen measurement (mass/volume ) 70 mg/dL 7-18 Serum or plasma creatinine measurement (mass/volume) 8.56 mg/dL 0.60-1.30 Serum or plasma urea nitrogen/creatinine mass ratio 8 NRG Serum or plasma creatinine measurement w ith calculation of estimated glomerular filtration rate 8 NRG Serum or plasma glucose measurement (mass/volume) 97 mg/dL 70-105 Serum or plasma calcium measurement (mass/volume) 7.9 mg/dL 8.5-10.1 Serum or plasma albumin measurement (mass/volume) 3.8 g/dL 3.2-4.5 Serum or plasma phosphate measurement (mass/volume) 4.5 mg/dL 2.3-4.7 Serum iron and total iron binding capaci ty panel - 07/13/18 16:08 Serum or plasma iron measurement (mass/volume) 39 % 40-180 Total iron binding capacity and transferrin saturation measurement 15 % 15-50 Iron binding capacity [mass/volume] in serum or plasma 265 % 280-380 UIBC (unsaturated iron binding capacity) 226 % 55-450 Serum or plasma ferritin measurement (mass/volume) 152.5 % 32.0-356.0 Complete blood count (CBC) with automate d white blood cell (WBC) differential - 07/31/18 17:23 Blood leukocytes automated count (number/volume) 11.6 10*3/uL 4.3-11.0 Blood erythrocytes automated count (number/volume) 3.64 10*6/uL 4.35-5.85 Venous blood hemoglobin measurement (mass/volume) 9.4 g/dL 13.3-17.7 Blood hematocrit (volume fraction) 29 % 40-54 Automated erythrocyte mean corpuscular volume 81 [ foz_us] 80-99 Automated erythrocyte mean corpuscular h emoglobin (mass per erythrocyte) 26 pg 25-34 Automated erythrocyte mean corpuscular h emoglobin concentration measurement (mass/volume) 32 g/dL 32-36 Automated erythrocyte distribution width ratio 17. 7 % 10.0- 14.5 Automated blood platelet count (count/volume) 212 10*3/uL 130-400 Automated blood platelet mean volume measurement 10.7 [foz_us] 7.4-10.4 Automated blood neutrophils/100 leukocytes 75 % 42-75 Automated blood lymphocytes/100 leukocytes 17 % 12-44 Blood monocytes/100 leukocytes 5 % 0-12 Automated blood eosinophils/100 leukocytes 2 % 0-10 Automated blood basophils/100 leukocytes 1 % 0-10 Blood neutrophils automated count (number/volume) 8.7 10*3 1.8-7.8 Blood lymphocytes automated count (number/volume) 2.0 10*3 1.0-4.0 Blood monocytes automated count (number/volume) 0. 6 10*3 0.0-1.0 Automated eosinophil count 0.2 10*3/uL 0 .0-0.3 Automated blood basophil count (count/volume) 0.1 10*3/uL 0.0-0.1 Serum or plasma renal function panel (Na , K, Cl, CO2, BUN, Cr, glucose,Ca, phos, alb) - 07/31/18 17:23 Serum or plasma sodium measurement (moles/volume) 139 mmol/L 135-145 Serum or plasma potassium measurement (moles/volume) 4.5 mmol/L 3.6-5.0 Serum or plasma chloride measurement (moles/volume) 109 mmol/L 98-107 Carbon dioxide 20 mmol/L 21-32 Serum or plasma anion gap determination (moles/volume) 10 mmol/L 5-14 Serum or plasma urea nitrogen measurement (mass/volume ) 64 mg/dL 7-18 Serum or plasma creatinine measurement (mass/volume) 8.67 mg/dL 0.60-1.30 Serum or plasma urea nitrogen/creatinine mass ratio 7 NRG Serum or plasma creatinine measurement w ith calculation of estimated glomerular filtration rate 8 NRG Serum or plasma glucose measurement (mass/volume) 95 mg/dL 70-105 Serum or plasma calcium measurement (mass/volume) 8.2 mg/dL 8.5-10.1 Serum or plasma albumin measurement (mass/volume) 3.7 g/dL 3.2-4.5 Serum or plasma phosphate measurement (mass/volume) 4.4 mg/dL 2.3-4.7 Serum or plasma uric acid measurement (m ass/volume) - 07/31/18 17:23 Serum or plasma uric acid measurement (mass/volume) 6.5 mg/dL 2.6-7.2 Automated blood complete blood count (he mogram) panel - 08/14/18 14:07 Blood leukocytes automated count (number/volume) 11.1 10*3/uL 4.3-11.0 Blood erythrocytes automated count (number/volume) 3.73 10*6/uL 4.35-5.85 Venous blood hemoglobin measurement (mass/volume) 9.6 g/dL 13.3-17.7 Blood hematocrit (volume fraction) 30 % 40-54 Automated erythrocyte mean corpuscular volume 81 [ foz_us] 80-99 Automated erythrocyte mean corpuscular h emoglobin (mass per erythrocyte) 26 pg 25-34 Automated erythrocyte mean corpuscular h emoglobin concentration measurement (mass/volume) 32 g/dL 32-36 Automated erythrocyte distribution width ratio 17. 5 % 10.0- 14.5 Automated blood platelet count (count/volume) 209 10*3/uL 130-400 Automated blood platelet mean volume measurement 9.8 [foz_us] 7.4-10.4 Serum or plasma renal function panel (Na , K, Cl, CO2, BUN, Cr, glucose,Ca, phos, alb) - 08/14/18 14:07 Serum or plasma sodium measurement (moles/volume) 138 mmol/L 135-145 Serum or plasma potassium measurement (moles/volume) 4.6 mmol/L 3.6-5.0 Serum or plasma chloride measurement (moles/volume) 106 mmol/L 98-107 Carbon dioxide 21 mmol/L 21-32 Serum or plasma anion gap determination (moles/volume) 11 mmol/L 5-14 Serum or plasma urea nitrogen measurement (mass/volume ) 56 mg/dL 7-18 Serum or plasma creatinine measurement (mass/volume) 8.27 mg/dL 0.60-1.30 Serum or plasma urea nitrogen/creatinine mass ratio 7 NRG Serum or plasma creatinine measurement w ith calculation of estimated glomerular filtration rate 8 NRG Serum or plasma glucose measurement (mass/volume) 108 mg/dL 70-105 Serum or plasma calcium measurement (mass/volume) 7.5 mg/dL 8.5-10.1 Serum or plasma albumin measurement (mass/volume) 3.6 g/dL 3.2-4.5 Serum or plasma phosphate measurement (mass/volume) 4.3 mg/dL 2.3-4.7 Serum or plasma uric acid measurement (m ass/volume) - 08/14/18 14:07 Serum or plasma uric acid measurement (mass/volume) 11.3 mg/dL 2.6-7.2 Complete blood count (CBC) with automate d white blood cell (WBC) differential - 09/07/18 16:26 Blood leukocytes automated count (number/volume) 17.1 10*3/uL 4.3-11.0 Blood erythrocytes automated count (number/volume) 3.69 10*6/uL 4.35-5.85 Venous blood hemoglobin measurement (mass/volume) 9.5 g/dL 13.3-17.7 Blood hematocrit (volume fraction) 30 % 40-54 Automated erythrocyte mean corpuscular volume 81 [ foz_us] 80-99 Automated erythrocyte mean corpuscular h emoglobin (mass per erythrocyte) 26 pg 25-34 Automated erythrocyte mean corpuscular h emoglobin concentration measurement (mass/volume) 32 g/dL 32-36 Automated erythrocyte distribution width ratio 17. 5 % 10.0- 14.5 Automated blood platelet count (count/volume) 259 10*3/uL 130-400 Automated blood platelet mean volume measurement 10.0 [foz_us] 7.4-10.4 Automated blood neutrophils/100 leukocytes 81 % 42-75 Automated blood lymphocytes/100 leukocytes 11 % 12-44 Blood monocytes/100 leukocytes 6 % 0-12 Automated blood eosinophils/100 leukocytes 1 % 0-10 Automated blood basophils/100 leukocytes 1 % 0-10 Blood neutrophils automated count (number/volume) 13.9 10*3 1.8-7.8 Blood lymphocytes automated count (number/volume) 2.0 10*3 1.0-4.0 Blood monocytes automated count (number/volume) 0. 9 10*3 0.0-1.0 Automated eosinophil count 0.2 10*3/uL 0 .0-0.3 Automated blood basophil count (count/volume) 0.1 10*3/uL 0.0-0.1 Serum or plasma renal function panel (Na , K, Cl, CO2, BUN, Cr, glucose,Ca, phos, alb) - 09/07/18 16:26 Serum or plasma sodium measurement (moles/volume) 139 mmol/L 135-145 Serum or plasma potassium measurement (moles/volume) 5.0 mmol/L 3.6-5.0 Serum or plasma chloride measurement (moles/volume) 107 mmol/L 98-107 Carbon dioxide 20 mmol/L 21-32 Serum or plasma anion gap determination (moles/volume) 12 mmol/L 5-14 Serum or plasma urea nitrogen measurement (mass/volume ) 75 mg/dL 7-18 Serum or plasma creatinine measurement (mass/volume) 9.46 mg/dL 0.60-1.30 Serum or plasma urea nitrogen/creatinine mass ratio 8 NRG Serum or plasma creatinine measurement w ith calculation of estimated glomerular filtration rate 7 NRG Serum or plasma glucose measurement (mass/volume) 80 mg/dL 70-105 Serum or plasma calcium measurement (mass/volume) 8.0 mg/dL 8.5-10.1 Serum or plasma albumin measurement (mass/volume) 3.9 g/dL 3.2-4.5 Serum or plasma phosphate measurement (mass/volume) 5.7 mg/dL 2.3-4.7 Serum or plasma uric acid measurement (m ass/volume) - 09/07/18 16:26 Serum or plasma uric acid measurement (mass/volume) 5.8 mg/dL 2.6-7.2 Manual absolute plasma cell count - 08/28 03/18 16:26 Blood monocytes/100 leukocytes 4 % NRG Manual blood segmented neutrophils/100 leukocytes 81 % NRG Blood band neutrophils/100 leukocytes 1 % NRG Manual blood lymphocytes/100 leukocytes 14 % NRG Manual eosinophils/100 leukocytes in nose 0 % NRG Manual blood basophils/100 leukocytes 0 % NRG Blood anisocytosis detection by light microscopy S LIGHT NRG Blood hypochromia detection by light microscopy SL IGHT NRG Blood target cells detection by light microscopy S LIGHT NRG Complete blood count (CBC) with automate d white blood cell (WBC) differential - 09/13/18 14:17 Blood leukocytes automated count (number/volume) 12.1 10*3/uL 4.3-11.0 Blood erythrocytes automated count (number/volume) 3.80 10*6/uL 4.35-5.85 Venous blood hemoglobin measurement (mass/volume) 9.9 g/dL 13.3-17.7 Blood hematocrit (volume fraction) 30 % 40-54 Automated erythrocyte mean corpuscular volume 80 [ foz_us] 80-99 Automated erythrocyte mean corpuscular h emoglobin (mass per erythrocyte) 26 pg 25-34 Automated erythrocyte mean corpuscular h emoglobin concentration measurement (mass/volume) 33 g/dL 32-36 Automated erythrocyte distribution width ratio 17. 1 % 10.0- 14.5 Automated blood platelet count (count/volume) 253 10*3/uL 130-400 Automated blood platelet mean volume measurement 10.0 [foz_us] 7.4-10.4 Automated blood neutrophils/100 leukocytes 78 % 42-75 Automated blood lymphocytes/100 leukocytes 14 % 12-44 Blood monocytes/100 leukocytes 5 % 0-12 Automated blood eosinophils/100 leukocytes 2 % 0-10 Automated blood basophils/100 leukocytes 1 % 0-10 Blood neutrophils automated count (number/volume) 9.4 10*3 1.8-7.8 Blood lymphocytes automated count (number/volume) 1.7 10*3 1.0-4.0 Blood monocytes automated count (number/volume) 0. 6 10*3 0.0-1.0 Automated eosinophil count 0.3 10*3/uL 0 .0-0.3 Automated blood basophil count (count/volume) 0.1 10*3/uL 0.0-0.1 Serum or plasma renal function panel (Na , K, Cl, CO2, BUN, Cr, glucose,Ca, phos, alb) - 09/13/18 14:17 Serum or plasma sodium measurement (moles/volume) 141 mmol/L 135-145 Serum or plasma potassium measurement (moles/volume) 4.9 mmol/L 3.6-5.0 Serum or plasma chloride measurement (moles/volume) 109 mmol/L 98-107 Carbon dioxide 20 mmol/L 21-32 Serum or plasma anion gap determination (moles/volume) 12 mmol/L 5-14 Serum or plasma urea nitrogen measurement (mass/volume ) 76 mg/dL 7-18 Serum or plasma creatinine measurement (mass/volume) 9.40 mg/dL 0.60-1.30 Serum or plasma urea nitrogen/creatinine mass ratio 8 NRG Serum or plasma creatinine measurement w ith calculation of estimated glomerular filtration rate 7 NRG Serum or plasma glucose measurement (mass/volume) 98 mg/dL 70-105 Serum or plasma calcium measurement (mass/volume) 8.2 mg/dL 8.5-10.1 Serum or plasma albumin measurement (mass/volume) 3.5 g/dL 3.2-4.5 Serum or plasma phosphate measurement (mass/volume) 5.3 mg/dL 2.3-4.7 Acute hepatitis panel - 09/13/18 14:17 Confirmatory quantitative serum or plasm a hepatitis B virus surface antigen measurement Non-Reactive Non-Reactive Hepatitis A virus IgM antibody assay Non-Reactive Non- Reactive Hepatitis B virus core IgM antibody assay Non-Reac tive Non- Reactive Serum hepatitis C virus antibody detection Non-[place] Path ctive Non-Reactive Encounters ACCT No. Visit Date/Time Discharge Status Pt. Type Provider Facility Loc./Unit Complaint [id number] 03/16/2016 18:05:00 Document Registration [id number] 02/11/2014 11:53:00 02/11/2014 23:59: 59 [facility] Outpatient CHARMAINE MERRILL DO [id number] 12/20/2013 00:00:00 12/20/2013 23:59: 59 CLS Outpatient MERRILL DOCHARMAINE [id number] 11/23/2013 11:17:00 11/23/2013 23:59: 59 CLS Outpatient GARFIELD DOCHARMAINE [id number] 10/12/2013 13:36:00 10/12/2013 23:59: 59 CLS Outpatient GARFIELD DOCHARMAINE [id number] 09/10/2013 08:26:00 09/10/2013 23:59: 59 CLS Outpatient GARFIELD DOCHARMAINE [id number] 06/14/2013 11:34:00 06/14/2013 23:59: 59 CLS Outpatient MERRILL DOCHARMAINE [id number] 06/11/2013 16:49:00 06/11/2013 23:59: 59 CLS Outpatient MERRILL DOCHARMAINE [id number] 05/08/2013 16:16:00 05/08/2013 23:59: 59 CLS Outpatient GARFIELD DOCHARMAINE [id number] 09/06/2012 10:39:00 09/06/2012 23:59: 59 CLS Outpatient GARFIELD DOCHARMAINE [id number] 04/12/2012 12:53:00 04/12/2012 23:59: 59 CLS Outpatient SARI MOJICA MD [id number] 03/23/2012 09:53:00 03/23/2012 23:59: 59 CLS Outpatient GARFIELD DOCHARMAINE [id number] 01/11/2012 14:51:00 01/11/2012 23:59: 59 CLS Outpatient [id number] 07/08/2011 13:35:00 07/08/2011 23:59:5 9 CLS Outpatient SANA DEE DDS [id number] 02/14/2019 10:40:00 02/14/2019 23:59: 59 CLS Outpatient CHAPARRO MUJICA APRN [facility] [id number] 01/18/2018 13:00:00 Document Registration [id number] 12/14/2017 13:20:00 Document Registration [id number] 11/04/2017 16:40:00 Document Registration [id number] 10/12/2017 11:40:00 Document Registration [id number] 07/13/2018 15:31:00 09:52:00 DIS Outpatient ELMER KRAMER, JUAN Vazquez [facility] CHRONIC KIDNEY DISEASE STAGE 3 [id number] 09/13/2018 14:01:00 23:59:59 CLS Outpatient RYAN PAYNE MD [facility] LAB ROUTINE LAB [id number] 09/07/2018 16:01:00 23:59:59 CLS Outpatient RYAN APYNE MD S [facility] LAB ROUTINE LABS [id number] 09/04/2018 19:23:00 23:59:59 CLS Outpatient JUAN PAYNE MD [facility] LAB N18.3 [id number] 08/14/2018 13:47:00 23:59:59 CLS Outpatient RYAN PAYNE MD [facility] LAB N18.3 [id number] 07/31/2018 16:52:00 23:59:59 CLS Outpatient JUAN PAYNE MD [facility] LAB N18.3,R80.9,E11.9,I10,N20.0,N17.9,R60.9 [id number] 07/10/2018 17:15:00 23:59:59 CLS Outpatient RYAN PAYNE MD [facility] LAB N18.3,R80.9,E11.9,I10,N20.0,N17.9,R60.9 [id number] 06/12/2018 13:34:00 18:26:00 DIS Emergency GENNARO KRAMER, ROSALIE Mccarthy [facility] ER ABD PAIN [id number] 03/23/2018 13:47:00 23:59:59 CLS Outpatient RYAN PAYNE MD [facility] LAB CBC,URIC ACID,R ENAL PANEL [id number] 01/24/2018 12:50:00 23:59:59 CLS Outpatient OSCAR FU [facility] CARD CAD [id number] 01/17/2018 16:40:00 018 18:20:00 DIS Emergency ROLAND GOODEN [facility] ER R KNEE PAIN [id number] 01/09/2018 15:34:00 018 23:59:59 CLS Preadmit DENISA FU [facility] CARD CAD [id number] 12/06/2017 13:37:00 018 19:08:00 DIS Emergency ROSALIE BURDICK MD [facility] ER CHEST PAIN [id number] 07/05/2017 09:16:00 018 23:59:59 CLS Outpatient ROBERTO KRAMER, VINCE Wilkins (DDU) [facility] LAB DDU [id number] 02/13/2017 18:57:00 017 21:39:00 DIS Emergency ANGELIA CHAMORRO DO [facility] ER L KNEE SWELLING [id number] 02/08/2017 15:24:00 017 18:30:00 DIS Emergency BENJAMIN ANAND APRN [facility] ER LT KNEE PAIN/SWELLING [id number] 12/01/2016 10:01:00 017 23:59:59 CLS Outpatient CHAPARRO MUJICA [facility] LAB [id number] 11/29/2016 17:28:00 017 23:59:59 CLS Outpatient JUAN PAYNE MD [facility] LAB N18.3,R80.9,E11 .9,I10,N20 [id number] 11/22/2016 09:01:00 017 23:59:59 CLS Outpatient JUAN PAYNE MD [facility] RAD CKD STAGE 3 N18 .3 [id number] 09/19/2016 21:15:00 017 14:45:00 DIS Inpatient CHARMAINE MERRILL DO, [facility] 4TH SEPTIC L KNEE JOINT; I. D.D.M; CHRONIC RENAL FAILUR [id number] 08/26/2016 12:36:00 017 23:59:59 CLS Outpatient ERICA BOWMAN MD [facility] LAB I25.10 R07.89 I10 [id number] 08/04/2016 07:54:00 017 09:05:00 DIS Outpatient ERICA BOWMAN MD [facility] CATH CP,CAD,HTN,CKD,HLP [id number] 08/02/2016 14:24:00 017 23:59:59 CLS Outpatient OSCAR FU [facility] LAB I25.10,N18.9,R07.89,K21.9 [id number] 07/30/2016 08:30:00 017 23:59:59 CLS Preadmit ELMER KRAMER, JUAN [facility] RAD N18.3 CHRONIC KIDNEY DI SEASE [id number] 07/21/2016 06:44:00 017 23:59:59 CLS Outpatient ERICA BOWMAN MD [facility] CP,CAD [id number] 06/04/2016 13:20:00 017 08:58:00 DIS Outpatient ERICA BOWMAN MD [facility] CHEST PAIN [id number] 04/04/2016 21:58:00 017 01:18:00 DIS Emergency ANGELIA CHAMORRO DO [facility] ER N/V, R FOOT SWELLING, F EVER [id number] 03/18/2016 14:04:00 017 17:39:00 DIS Emergency MIKHAIL ARCHIBALD [facility] ER RIGHT FOOT PAIN [id number] 03/12/2016 15:50:00 017 18:18:00 DIS Emergency BENJAMIN ANAND APRN [facility] ER R FOOT SWELLING [id number] 02/22/2016 15:03:00 016 16:56:00 DIS Outpatient SARAH KRAMER, SAMSON Camacho [facility] ER LEFT LEG PAIN [id number] 01/09/2016 14:22:00 016 17:00:00 DIS Emergency JOS QUIROZ DO [facility] ER LEFT FOOT/ANKLE PAIN [id number] 01/02/2016 15:14:00 016 19:05:00 DIS Emergency ROSALIE BURDICK MD [facility] ER AB PAIN [id number] 06/27/2015 23:30:00 016 13:20:00 DIS Inpatient SHWETHA KRAMER, KAYA Mcknight [facility] 4TH CHEST PAIN/RENAL INSUFFICIENCY/DIABETES OUT OF [id number] 03/26/2015 11:32:00 23:59:59 CLS Outpatient MOSES GOMES [facility] QUICK [id number] 01/12/2015 21:12:00 015 22:48:00 DIS Emergency ANGELIA CHAMORRO DO [facility] ER RIGHT FOOT PAIN [id number] 09/08/2014 14:00:00 015 17:12:00 DIS Emergency COMPA WANG [facility] ER L KNEE PAIN [id number] 06/15/2014 12:40:00 015 16:34:00 DIS Emergency JOS QUIROZ DO [facility] ER ABD PAIN [id number] 02/26/2014 09:50:00 014 23:59:59 CLS Outpatient MARCEL KRAMER, MARIA TERESA Mcknight (DDU) [facility] RAD DDU [id number] 02/06/2014 12:37:00 014 23:59:59 CLS Outpatient ROBERTO KRAMER, VINCE Wilkins (DDU) [facility] RAD RIGHT KNEE PAIN RIGHT ANKLE PAIN [id number] 11/06/2013 21:14:00 014 23:47:00 DIS Emergency COMPA WANG [facility] ER RIGHT KNEE PAIN [id number] 04/20/2013 06:19:00 014 12:55:00 DIS Outpatient BRAYAN KRAMER, FACUNDO Lezama [facility] SDC DYSPHAGIA [id number] 04/16/2013 04:25:00 014 15:35:00 DIS Inpatient FERNANDA KRAMER, ARIELLE Lezama [facility] SURGICAL PANCREATITIS;CHOLYLITHIASIS [id number] 09/12/2012 15:27:00 013 23:59:59 CLS Outpatient AMI MEZA MD [facility] RAD PAIN AND CATCHING OF RI GHT KNEE [id number] 07/10/2012 20:30:00 21:47:00 DIS Emergency HARRISON KRAMER, LESIA Crowder [facility] ER R KNEE INJ [id number] 08/20/2015 15:09:00 Document Registration [id number] 06/04/2012 17:23:00 Document Registration [id number] 05/12/2012 07:46:00 Document Registration [id number] 03/26/2012 14:45:00 Document Registration [id number] 11/27/2011 07:30:00 Document Registration [id number] 05/01/2011 20:33:00 Document Registration [id number] 01/07/2011 11:48:00 Document Registration [id number] 04/28/2010 06:57:00 Document Registration [id number] 08/15/2009 06:57:00 Document Registration [id number] 06/28/2009 01:11:00 Document Registration [id number] 05/23/2009 06:17:00 Document Registration [id number] 05/19/2009 12:59:00 Document Registration [id number] 02/24/2009 07:48:00 Document Registration [id number] 09/15/2008 06:13:00 Document Registration [id number] 01/08/2016 13:06:00 Document Registration [id number] 03/30/2016 07:05:00 Document Registration
[2019-07-04] MEDS ORDERED: fentaNYL INJECTION 100 MCG/2 ML AMP IVP ONE (10:45)
--- NOTE | 2019-07-04 10:57 | ED GU-Male ---
General Chief Complaint: Male Reproductive Stated Complaint: GROIN PAIN Source: patient Exam Limitations: no limitations History of Present Illness Date Seen by Provider: July 04, 2019 Time Seen by Provider: 10:44 Initial Comments To ER with bilateral testicular pain and swelling for 3 days no known injury, no history of this. He does have some dysuria. No swelling elsewhere.m chronic kidney disease, does hemodialysis Tuesday and has not yet rece ived today's treatment. Timing/Duration: getting worse Severity/Quality: moderate Location: scrotal Radiation: none Activities at Onset: none Prior Genitourinary Problems: none Associated Symptoms: dysuria Allergies and Home Medications Allergies Coded Allergies: No Known Drug Allergies (Unverified , 09/15/08) Home Medications Aspirin 81 Mg Tablet.dr, 81 MG PO HS, (Reported) Atorvastatin Calcium 10 Mg Tablet, 10 MG PO HS, (Reported) Clopidogrel Bisulfate 75 Mg Tablet, 75 MG PO HS, (Reported) Colchicine 0.6 Mg Capsule, 0.6 MG PO DAILY Prescribed by: LESIA DEMARCO on 09/20/16 1250 Colchicine 0.6 Mg Capsule, 0.6 MG PO UD Prescribed by: ANGELIA CHAMORRO on 02/13/17 2120 Dulaglutide 0.75 Mg/0.5 Ml Pen.injctr, 0.75 MG SQ Fr, (Reported) Febuxostat 80 Mg Tablet, 80 MG PO HS, (Reported) Hydrocodone/Acetaminophen 1 Each Tablet, 1 EACH PO Q6H PRN for PAIN-MODERATE Prescribed by: BENJAMIN ANAND on 02/08/17 1736 Omeprazole 40 Mg Capsule.dr, 40 MG PO HS, (Reported) Quetiapine Fumarate 50 Mg Tablet, 100-150 MG PO HS, (Reported) TAKES 2-3 (50 MG) TABLETS AT BEDTIME Patient Home Medication List Home Medication List Reviewed: Yes Review of Systems Review of Systems Constitutional: see HPI EENTM: see HPI Respiratory: no symptoms reported Cardiovascular: no symptoms reported Genitourinary: see HPI Musculoskeletal: no symptoms reported Skin: no symptoms reported Psychiatric/Neurological: No Symptoms Reported Endocrine: No Symptoms Reported Hematologic/Lymphatic: No Symptoms Reported Past Qblvdxp-Etitnq-Adcgda Hx Patient Social History Drug of Choice: THC Type Used: Cigarettes 2nd Hand Smoke Exposure: Yes Recent Foreign Travel: No Contact w/Someone Who Travel: No Recent Hopitalizations: No Immunizations Up To Date Tetanus Booster (TDap): Unknown PED Vaccines UTD: Yes Date of Influenza Vaccine: Dec 29, 2010 Seasonal Allergies Seasonal Allergies: No Past Medical History Surgeries: Yes Gallbladder Respiratory: No Cardiac: Yes (CARDIAC CATHS--STENTS X 2 --LAST CATH 08/04/16) Coronary Artery Disease, High Cholesterol, Hypertension Neurological: Yes (PERIPHERAL NEUROPATHY) Neuropathy Reproductive Disorders: No Sexually Transmitted Disease: No HIV/AIDS: No Genitourinary: Yes Kidney Stones, Renal Failure Gastrointestinal: Yes (S/P ASHLEY) Gastroesophageal Reflux, Gall Bladder Disease Musculoskeletal: Yes (CHRONIC KNEE PAIN, ANKLE PAIN, FOOT PAIN ; PSEUDO GOUT ) Gout Endocrine: Yes Diabetes, Insulin dep HEENT: No Cancer: No Psychosocial: Yes Anxiety Integumentary: Yes (MULTIPLE EPISODES OF CELLULITIS) Blood Disorders: No Adverse Reaction/Blood Tranf: No Family Medical History Chest pain 03 MOTHER Family history: Arthritis 03 MOTHER Family history: Diabetes mellitus 03 MOTHER 09 BROTHER Family history: Gastrointestinal disease 03 MOTHER 09 BROTHER Family history: Thyroid disorder 03 MOTHER Headache 03 MOTHER Hypercholesterolemia 03 FATHER 03 MOTHER 09 BROTHER Myocardial infarction 03 FATHER 03 MOTHER No Family History of: Abdominal aortic aneurysm Hardin's disease Alcoholism Aphasia Cancer Cancer of colon Cataract Congenital heart disease Congestive heart failure Cystic fibrosis Dementia Dysphagia Family history: Allergy Family history: Alzheimer's disease Family history: Asthma Family history: Breast disease Family history: Cardiovascular disease Family history: Coronary thrombosis Family history: Glaucoma Family history: Hypertension Family history: Osteoporosis Hearing loss Heart disease Hereditary disease History of - anemia History of - disorder History of - respiratory disease History of drug abuse Human immunodeficiency virus (HIV) seropositivity Kidney disease Malignant neoplasm of lung Parkinson's disease Prostate cancer Psychotic disorder Seizure disorder Stroke Tuberculosis Visual impairment Physical Exam Vital Signs Vital Signs - First Documented 07/04/19 10:30 Temp 37.1 Pulse 71 Resp 18 B/P (MAP) 147/86 (106) Pulse Ox 98 Capillary Refill : Height, Weight, BMI Height: 6'1.00" Weight: 278lbs. 6.0oz. 126.689212wz; 36.8 BMI Method:Stated General Appearance: WD/WN, no apparent distress HEENT: PERRL/EOMI, normal ENT inspection Neck: non-tender, full range of motion Respiratory: normal breath sounds, no respiratory distress, no accessory muscle use Gastrointestinal: normal bowel sounds, non tender Male: testicular tenderness (bilat swollen and tender) Genital/Rectal: other (the overlying scrotal skin is thin and without evidence of cellulitis or wound.) Extremities: normal range of motion, non-tender Neurologic/Psychiatric: alert, normal mood/affect, oriented x 3 Skin: normal color, warm/dry Progress/Results/Core Measures Suspected Sepsis SIRS Temperature: Pulse: Respiratory Rate: Blood Pressure / Mean: Results/Orders My Orders Orders - BENJAMIN ANAND APRN Fentanyl Injection (Sublimaze Injection (07/04/19 10:45) Cbc With Automated Diff (07/04/19 10:41) Comprehensive Metabolic Panel (07/04/19 10:41) Neis Kyle Dna Urine Test (07/04/19 10:41) Chlamydia Trachomatis Urine (07/04/19 10:41) Ua Culture If Indicated (07/04/19 10:41) Us Scrotum (Testicle) [id number] (07/04/19 10:41) Ed Iv/Invasive Line Start (07/04/19 10:41) Ceftriaxone For Iv Use (Rocephin For I (07/04/19 11:00) Hydrocodone/Apap 5/325 Tablet (Lortab 5 (07/04/19 12:00) Medications Given in ED Current Medications Medications Dose Ordered Sig/Augusto Route Start Time Stop Time Status Last Admin Dose Admin Ceftriaxone Sodium 1000 mg/ Sterile Water 10 ml @ 200 mls/hr ONCE ONCE IV 07/04/19 11:00 07/04/19 11:02 DC 07/04/19 11:28 200 MLS/HR Fentanyl Citrate 50 mcg ONCE ONCE IVP 07/04/19 10:45 07/04/19 10:46 DC 07/04/19 10:52 50 MCG Vital Signs/I&O 07/04/19 10:30 Temp 37.1 Pulse 71 Resp 18 B/P (MAP) 147/86 (106) Pulse Ox 98 Capillary Refill : Departure Communication (Admissions) got a 22-gauge IV to the dorsal left forearm but it will not draw blood. I then tried to draw blood out of his hand, unsuccessfully. States he will only allow 3 attempts. Refuses to allow EJ to be accessed. 1148-Spoke with Dr Ferrara from radiology, states a hypoechoic 1.5-2cm on one of the testes could be early abscess. I recommended hospital admission, however because he is a dialysis patient and has not yet had it today be transferred to one of the [facility] where in-house dialysis is available. He states he doesn't want to be transferred by ambulance, he'll take himself over there later today. I will have him sign out against Medical advice, he agrees to do so. I discussed risks of doing so including , permanent disability, loss of genitals. We were still unable to obtain blood. Both myself and 2 individuals from the laboratory have been unable to get blood. He still refuses to allow me to access the external jugular. as such we were unable to get blood sample from him. Rocephin 1 g has been given along with 50 g of fentanyl and 1 hydrocodone 07/22. Impression Primary Impression: Epididymitis, bilateral Disposition: 07 AGAINST MEDICAL ADVICE (ERASED) Condition: Against Medical Advice Departure-Patient Inst. Decision time for Depature: 11:26 Referrals: [facility] (PCP) Primary Care Physician CHAPARRO MUJICA (Family) Primary Care Physician Patient Instructions: Epididymitis (DC) BENJAMIN ANAND ALGEBRAIST July 04, 2019 10:57
[2019-07-04] MEDS ORDERED: cefTRIAXone FOR IV USE 1,000 MG in WATER (STERILE) FOR INJECTION 10 ML IV ONE (11:00)
--- NOTE | 2019-07-04 11:36 | NUR ---
LAB HERE TO DRAW BLOOD DUE UNABLE TO DRAW FROM IV STARTED Nilay ANAND . LAB UNABLE TO UNABLE DRAW BLOOD .
--- NOTE | 2019-07-04 11:44 | NUR ---
LAB HERE TO TRY AND OBTAIN BLOOD.
--- NOTE | 2019-07-04 11:48 | Diagnostic Imaging Report ---
PROCEDURE: US Scrotum. TECHNIQUE: Multiple real-time grayscale images were obtained over the scrotum in various projections bilaterally. INDICATION: Testicular pain There are no prior studies for comparison. Both testicles were identified. The right testicle measures 4.2 x 2.2 x 3.1 cm, left testicle measures 4.2 x 2.2 x 2.7 cm. Along the inferior aspect of the right testicle there is a 1.9 x 1.7 x 2.5 cm area of diminished echogenicity. The tissue around this area is hypervascular. This finding could be secondary to a focal area of inflammation secondary to orchitis. It would be less likely that this is a neoplastic mass although that possibility should still be considered. The right epididymis is also prominent and somewhat hyperemic and there may be an element of epididymitis present as well. There is no evidence for a solid testicular mass or torsion on the left testicle. There is no evidence for epididymitis either. There is a small hydrocele on the left. IMPRESSION: 1. The small hypoechoic area in the inferior pole of the right testicle is of uncertain etiology. This may be related to an early abscess secondary to orchitis. There also appears to be an element of epididymitis present.. The possibility that the hypoechoic lesion in the inferior pole of the right testicle is related to a neoplastic mass should still be considered however. A urologic consult would be recommended. 2. There is no abnormality of the left testicle. 3. These results were discussed with Gordo Avilez APRN.. Dictated by: Dictated on workstation # [id number]
[2019-07-04 11:53] LABS: BILIRUBIN,URINE NEGATIVE (NEGATIVE); CLARITY,URINE SL CLOUDY; COLOR,URINE YELLOW; GLUCOSE, URINE (UA) NEGATIVE (NEGATIVE); KETONES,URINE NEGATIVE (NEGATIVE); LEUKOCYTE ESTERASE ,URINE 2+ (NEGATIVE); NITRITE,URINE POSITIVE (NEGATIVE); PH,URINE 7.5 (5-9); PROTEIN,URINE 3+ (NEGATIVE)
--- NOTE | 2019-07-04 11:53 | NUR ---
LAB STILL UNABLE TO DRAW BLOOD P KIKA FUNG AWARE.
[2019-07-04] MEDS ORDERED: HYDROcodone/APAP 5 MG/325 MG (LORTAB) TAB PO ONE (12:00)
[2019-07-04 12:09] VITALS: BP 134/72
[2019-07-04 12:13] LABS: BACTERIA,URINE NEGATIVE /HPF; SQUAMOUS EPITHELIAL CELL,UR 0-2 /HPF; WBC,URINE >100 /HPF
== END 2019-07-04 12:07 | disposition left against medical advice (07) ==
LOC: EDUNIT# 09:47 → ER 09:48
DX: N45.1 Epididymitis (principal); I12.9 Hypertensive chronic kidney disease with stage 1 through stage 4 chronic kidney disease, or unspecified chronic kidney disease; N18.9 Chronic kidney disease, unspecified; I25.10 Atherosclerotic heart disease of native coronary artery without angina pectoris; E78.00 Pure hypercholesterolemia, unspecified; E11.40 Type 2 diabetes mellitus with diabetic neuropathy, unspecified; K21.9 Gastro-esophageal reflux disease without esophagitis; M10.9 Gout, unspecified; F41.9 Anxiety disorder, unspecified; M25.569 Pain in unspecified knee; G89.29 Other chronic pain; Z87.440 Personal history of urinary (tract) infections; Z95.5 Presence of coronary angioplasty implant and graft; Z99.2 Dependence on renal dialysis; Z79.82 Long term (current) use of aspirin; Z79.899 Other long term (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 therapy
CPT/HCPCS: 36415; 76870; 81000; 87088; 87491; 87591

== ENCOUNTER 2019-10-24 12:26 | Outpatient (CLI) | payer MEDICARE, MEDICAID ==
[~2019-10-24] VITALS: Ht 185 cm; Wt 111.0 kg
[~2019-10-24 12:26] MED LIST changes: +ALLO300T2 PO; +ASPI-999 PO; +METF-397 PO; +METO50TA15 PO
== END 2019-10-24 12:37 | disposition home or self-care (01) ==
LOC: PREOP 12:26
PROVIDERS: ATTEND Surgery
DX: Z01.818 Encounter for other preprocedural examination (principal)

== ENCOUNTER 2019-10-30 08:31 | Day surgery (SDC) | payer MEDICARE, MEDICAID ==
[~2019-10-30] VITALS: Ht 185 cm; Wt 111.0 kg
[2019-10-30] MEDS ORDERED: LACTATED RINGERS 1,000 ML IV ONE (08:33)
[2019-10-30] MEDS ORDERED: LACTATED RINGERS 1,000 ML IV STA (08:38)
[2019-10-30 08:45] VITALS: BP 133/75
--- NOTE | 2019-10-30 08:52 | Progress Note-Pre Operative ---
Pre-Operative Progress Note H&P Reviewed The H&P was reviewed, patient examined and no changes noted. Date Seen by Provider: Oct 30, 2019 Time Seen by Provider: 08:50 Date H&P Reviewed: Oct 30, 2019 Time H&P Reviewed: 08:51 Pre-Operative Diagnosis: screening colonoscopy KATJA GARNETT DO Oct 30, 2019 08:52
[2019-10-30] MEDS ORDERED: PROPOFOL INJECTION 50 ML IV ONE (08:56)
[2019-10-30] MEDS ORDERED: MIDAZOLAM 2 MG/2 ML (VERSED) VIAL ONE (08:56)
[2019-10-30] MEDS ORDERED: LIDOCAINE PF 2% 5 ML (XYLOCAINE) VIAL ONE (09:25)
[2019-10-30] MEDS ORDERED: KETAMINE/NaCl 50 MG/5 ML SYRINGE (ED ONLY) ONE (09:27)
[2019-10-30 09:41] VITALS: BP 140/65
--- NOTE | 2019-10-30 09:41 | Progress Note-Post Operative ---
Post-Operative Progess Note Surgeon (s)/Cementer Helper (s) Surgeon KATJA GARNETT DO Cementer Helper: na Pre-Operative Diagnosis screening colonoscopy Post-Operative Diagnosis poor prep Procedure & Operative Findings Date of Procedure 10/30/19 Procedure Performed/Findings flex sig Anesthesia Type per chief inspector Estimated Blood Loss Estimated blood loss (mL): none Specimens/Packing Specimens Removed none KATJA GARNETT DO Oct 30, 2019 09:41
--- NOTE | 2019-10-30 09:43 | Discharge Inst-Simple/Standard ---
Discharge Inst-Standard Patient Instructions/Follow Up Plan of Care/Instructions/FU: Clear liquids today and repeat colon prep instructions today. Activity as Tolerated: Yes Discharge Diet: Liquid Diet (clear liquid diet today and nothing to drink after midnight.) KATJA GARNETT DO Oct 30, 2019 09:43
[2019-10-30 09:45] VITALS: BP 151/71
[2019-10-30 10:10] VITALS: BP 142/78
[2019-10-30 10:15] VITALS: BP 142/78
--- NOTE | 2019-10-30 11:18 | Anesthesia-General Post-Op ---
MAC Patient Condition Mental Status/LOC: Same as Preop Cardiovascular: Satisfactory Nausea/Vomiting: Absent Respiratory: Satisfactory Pain: Controlled Complications: Absent Post Op Complications Complications None Follow Up Care/Instructions Patient Instructions None needed. Anesthesiology Discharge Order Discharge Order Patient is doing well, no complaints, stable vital signs, no apparent adverse anesthesia problems. No complications reported per nursing. SKIP JACOME CRNA Oct 30, 2019 11:18
--- NOTE | 2019-10-30 13:19 | OPERATIVE REPORT ---
DATE OF SERVICE: 10/30/2019 PREOPERATIVE DIAGNOSIS: Screening colonoscopy. POSTOPERATIVE DIAGNOSIS: Poor prep. PROCEDURE: Flexible sigmoidoscopy. SURGEON: Katja Palomo DO ANESTHESIA: Per OPTICAL GLASS INSPECTOR. ESTIMATED BLOOD LOSS: None. COMPLICATIONS: None. INDICATIONS: The patient is a 54-year-old male needing evaluation for renal transplant, needing screening colonoscopy. He understands risks and benefits of procedure and wished to proceed with procedure. Consent was signed in the chart. DESCRIPTION OF PROCEDURE: The patient was taken to the endoscopy suite, placed in left lateral recumbent position. Timeout was performed. Digital rectal exam was performed. There were no palpable polyps, masses or ulcerations. Scope was inserted in the rectum and began to be advanced significant stool load in the rectum, which was able to be navigated further into the sigmoid colon, still significant amount of stool, which did not provide adequate visualization; therefore, at this time, the procedure was aborted and the scope was then slowly retracted back. Scope was then slowly retracted all the way back until completely removed. The patient tolerated procedure well without any complications and taken to recovery room in stable condition. RECOMMENDATIONS: The patient will re-prep tonight and we will schedule in the morning for full colonoscopy. If unable to do so, we will reschedule implant, 2-day prep. Job ID: [id number] DocumentID: [id number] Dictated Date: 10/30/2019 09:48:41 Physicist [place] Date: 10/30/2019 13:18:32 Dictated By: KATJA PALOMO DO
== END 2019-10-30 10:15 | disposition home or self-care (01) ==
LOC: ENDO 08:31
PROVIDERS: ATTEND Surgery
DX: Z12.11 Encounter for screening for malignant neoplasm of colon (principal)

== ENCOUNTER → 2019-12-31 | Outpatient (CLI) | payer MEDICARE, MEDICAID ==
[~2019-12-31] MED LIST changes: +ASPI-1238 PO; -ASPI-983 PO
== END ==
LOC: LABNPT 05:32
PROVIDERS: ATTEND Urology
DX: Z20.828 Contact with and (suspected) exposure to other viral communicable diseases (principal)
CPT/HCPCS: 87635

== ENCOUNTER 2021-04-12 23:58 | Emergency (ER) | payer MEDICAID, MEDICARE, OTHER ==
[~2021-04-12 23:58] MED LIST changes: -LISI-552 PO; -LISI-556 PO; +LISI20TA26 PO; +LISI5TAB20 PO; -OMEP40CA27 PO; +OMEP40CA6 PO; +QUET50TA23 PO; -QUET50TA55 PO; -SULF1TAB35 PO; +SULF1TAB38 PO
--- NOTE | 2021-04-13 00:27 | ED Dyspnea ---
General Stated Complaint: CP - SOA Source of Information: Patient Exam Limitations: No Limitations History of Present Illness Date Seen by Provider: Apr 13, 2021 Time Seen by Provider: 00:05 Initial Comments Patient is a 55-year-old male with a history of coronary artery disease, end- stage renal disease on dialysis for the last 2 years, diabetic who presents to the emergency room with a fairly sudden onset of shortness of breath around 11- 11 30 tonight. Patient states he is not doing any particular activity when he started getting short of breath. He had accompanying chest "tightness". He states it reminds him of when he had previous stents placed. The pain was nonradiating. He is not nauseated. EMS reported sats in the 70s on arrival. He is not normally on home oxygen. He is a former smoker having quit 2 years ago. Does not need to use inhalers. He states at this point his chest pain is completely gone. He dialyzes Wednesdays. He did complete dialysis on Tuesday of last week. He states he went only about 3 hours. 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 No recent sick contacts. He is not Covid vaccinated. He denies any fevers or chills or upper respiratory complaints. He still makes urine 1-2 times daily. Denies any recent black or bloody stools. No significant swelling. All other review of systems reviewed and negative except as stated. Timing/Duration: 1 Hour Severity: Severe Activities at Onset: None Prior Episodes/Possible Cause: No Prior Episodes Associated Symptoms: Chest Pain, Other (Shortness of breath) Allergies and Home Medications Allergies Coded Allergies: No Known Drug Allergies (Unverified , 10/24/19) Patient Home Medication List Home Medication List Reviewed: Yes Allopurinol (Allopurinol) 300 Mg Tablet, 300 MG PO DAILY, (Reported) Entered as Reported by: JEFF BOUCHER on 10/24/19 1223 Aspirin (Aspirin) 81 Mg Tab.chew, 81 MG PO DAILY, (Reported) Entered as Reported by: JEFF BOUCHER on 10/24/19 1223 Atorvastatin Calcium (Lipitor) 10 Mg Tablet, 10 MG PO HS, (Reported) Entered as Reported by: VIDHYA ALEJO on 06/04/16 1539 Metformin HCl (Metformin HCl) 500 Mg Tablet, 500 MG PO DAILY, (Reported) Entered as Reported by: JEFF BOUCHER on 10/24/19 1223 Metoprolol Tartrate (Metoprolol Tartrate) 50 Mg Tablet, 50 MG PO DAILY, (Reported) Entered as Reported by: JEFF BOUCHER on 10/24/19 1223 Quetiapine Fumarate (Seroquel) 50 Mg Tablet, 50 MG PO DAILY, (Reported) Entered as Reported by: JEFF BOUCHER on 10/24/19 1223 Review of Systems Review of Systems Constitutional: see HPI EENTM: no symptoms reported Respiratory: short of breath Cardiovascular: chest pain Gastrointestinal: no symptoms reported Genitourinary: no symptoms reported Musculoskeletal: no symptoms reported Skin: no symptoms reported Psychiatric/Neurological: No Symptoms Reported All Other Systems Reviewed Negative Unless Noted: Yes Past [id number]-Bjootz Hx Immunizations Up To Date Tetanus Booster (TDap): Unknown PED Vaccines UTD: Yes Seasonal Allergies Seasonal Allergies: No Past Medical History Surgeries: Yes Gallbladder Respiratory: No Cardiac: Yes (CARDIAC CATHS--STENTS X 2 --LAST CATH 08/04/16) Coronary Artery Disease, High Cholesterol, Hypertension Neurological: Yes (PERIPHERAL NEUROPATHY) Neuropathy Reproductive Disorders: No Sexually Transmitted Disease: No HIV/AIDS: No Genitourinary: Yes (DIALYSIS) Kidney Stones, Renal Failure Gastrointestinal: Yes Gastroesophageal Reflux, Gall Bladder Disease Musculoskeletal: Yes (CHRONIC KNEE PAIN, ANKLE PAIN, FOOT PAIN ; PSEUDO GOUT ) Gout Endocrine: Yes Diabetes, Non-Insulin dep HEENT: No (GLASSES) Loss of Vision: Denies Hearing Impairment: Denies Cancer: No Psychosocial: Yes Anxiety Integumentary: No Blood Disorders: No Adverse Reaction/Blood Tranf: No (N/A) Family Medical History Chest pain 03 MOTHER Family history: Arthritis 03 MOTHER Family history: Diabetes mellitus 03 MOTHER 09 BROTHER Family history: Gastrointestinal disease 03 MOTHER 09 BROTHER Family history: Thyroid disorder 03 MOTHER Headache 03 MOTHER Hypercholesterolemia 03 FATHER 03 MOTHER 09 BROTHER Myocardial infarction 03 FATHER 03 MOTHER No Family History of: Abdominal aortic aneurysm Clarion's disease Alcoholism Aphasia Cancer Cancer of colon Cataract Congenital heart disease Congestive heart failure Cystic fibrosis Dementia Dysphagia Family history: Allergy Family history: Alzheimer's disease Family history: Asthma Family history: Breast disease Family history: Cardiovascular disease Family history: Coronary thrombosis Family history: Glaucoma Family history: Hypertension Family history: Osteoporosis Hearing loss Heart disease Hereditary disease History of - anemia History of - disorder History of - respiratory disease History of drug abuse Human immunodeficiency virus (HIV) seropositivity Kidney disease Malignant neoplasm of lung Parkinson's disease Prostate cancer Psychotic disorder Seizure disorder Stroke Tuberculosis Visual impairment Physical Exam Vital Signs Vital Signs - First Documented 04/13/21 00:00 Temp 36.7 Pulse 84 Resp 20 B/P (MAP) 196/89 (124) Pulse Ox 85 Capillary Refill : Height, Weight, BMI Height: 6'1.00" Weight: 278lbs. 6.0oz. 126.625241cm; 32.43 BMI Method:Stated General Appearance: No Apparent Distress, WD/WN HEENT: PERRL/EOMI Neck: Normal Inspection Respiratory: Lungs Clear (Sats in NRB 93%), Normal Breath Sounds, No Accessory Muscle Use, No Respiratory Distress Cardiovascular: Regular Rate, Rhythm, Normal Peripheral Pulses Gastrointestinal: Normal Bowel Sounds, Non Tender, Soft Extremity: Normal Inspection, Normal Range of Motion, Non Tender, No Pedal Edema Neurologic/Psychiatric: Alert, Oriented x3, No Motor/Sensory Deficits, Normal Mood/Affect Skin: Normal Color, Warm/Dry Progress/Results/Core Measures Results/Orders Lab Results Laboratory Tests Test 04/13/21 00:11 04/13/21 00:38 04/13/21 00:53 Range/Units Glucometer 117 H 70-110 MG/DL Influenza Type A (RT-PCR) Not Detected Not Detecte Influenza Type B (RT-PCR) Not Detected Not Detecte SARS-CoV-2 RNA (RT-PCR) Not Detected Not Detecte White Blood Count 12.8 H 4.3-11.0 10^3/uL Red Blood Count 3.03 L 4.30-5.52 10^6/uL Hemoglobin 8.4 L 13.3-17.7 g/dL Hematocrit 27 L 40-54 % Mean Corpuscular Volume 88 80-99 fL Mean Corpuscular Hemoglobin 28 25-34 pg Mean Corpuscular Hemoglobin Concent 32 32-36 g/dL Red Cell Distribution Width 18.3 H 10.0-14.5 % Platelet Count 184 130-400 10^3/uL Mean Platelet Volume 9.4 9.0-12.2 fL Immature Granulocyte % (Auto) 1 % Neutrophils (%) (Auto) 85 H 42-75 % Lymphocytes (%) (Auto) 9 L 12-44 % Monocytes (%) (Auto) 4 0-12 % Eosinophils (%) (Auto) 2 0-10 % Basophils (%) (Auto) 1 0-10 % Neutrophils # (Auto) 10.9 H 1.8-7.8 10^3/uL Lymphocytes # (Auto) 1.1 1.0-4.0 10^3/uL Monocytes # (Auto) 0.5 0.0-1.0 10^3/uL Eosinophils # (Auto) 0.2 0.0-0.3 10^3/uL Basophils # (Auto) 0.1 0.0-0.1 10^3/uL Immature Granulocyte # (Auto) 0.1 0.0-0.1 10^3/uL Prothrombin Time 15.0 H 12.2-14.7 SEC INR Comment 1.1 0.8-1.4 Activated Partial Thromboplast Time 40 H 24-35 SEC D-Dimer 1.77 H 0.00-0.49 UG/ML Sodium Level 142 135-145 MMOL/L Potassium Level 4.4 3.6-5.0 MMOL/L Chloride Level 103 98-107 MMOL/L Carbon Dioxide Level 20 L 21-32 MMOL/L Anion Gap 19 H 5-14 MMOL/L Blood Urea Nitrogen 62 H 7-18 MG/DL Creatinine 15.96 H 0.60-1.30 MG/DL Estimat Glomerular Filtration Rate 3 BUN/Creatinine Ratio 4 Glucose Level 134 H 70-105 MG/DL Calcium Level 8.5 8.5-10.1 MG/DL Corrected Calcium 8.3 L 8.5-10.1 MG/DL Total Bilirubin 0.6 0.1-1.0 MG/DL Aspartate Amino Transf (AST/SGOT) 33 5-34 U/L Alanine Aminotransferase (ALT/SGPT) 34 0-55 U/L Alkaline Phosphatase 58 40-136 U/L Troponin I < 0.028 <0.028 NG/ML B-Type Natriuretic Peptide 456.5 H <100.0 PG/ML Total Protein 8.3 H 6.4-8.2 GM/DL Albumin 4.2 3.2-4.5 GM/DL My Orders Orders - CAMELIA ERWIN MD Ed Iv/Invasive Line Start (04/13/21 00:22) Cbc With Automated Diff (04/13/21:22) Comprehensive Metabolic Panel (04/13/21:22) Troponin I [place] (04/13/21:22) Bnp [place] (04/13/21:22) Chest 1 View, Ap/Pa Only (04/13/21:22) Covid 19 Inhouse Test (04/13/21:) Influenza A And B By Pcr (04/13/21:) Isolation Central Supply Req (04/13/21:) Ekg Tracing (04/13/21:) Protime With Inr (04/13/21:) Partial Thromboplastin Time (04/13/21:) Fibrin Degradation Products (04/13/21:) O2 (04/13/21 03:43) Vital Signs/I&O 04/13/21 04/13/21 04/13/21 04/13/21 00:00 00:00 00:00 00:27 Temp 36.7 Pulse 84 Resp 20 B/P (MAP) 196/89 (124) Pulse Ox 85 93 O2 Delivery Non Rebreather Non Rebreather Non Rebreather Nasal Cannula O2 Flow Rate 15.00 15.00 4.00 04/13/21 09:45 Pulse 74 Resp 12 B/P (MAP) 163/56 Pulse Ox 99 O2 Delivery Nasal Cannula O2 Flow Rate 4.00 Progress Progress Note #1: Time: 02:39 Progress Note Multiple attempts at peripheral IV access attempted. His VS have been stable. I tried to use the ultrasound, without success. Has not required the use of IV meds at this time. No Central line has been attempted as of yet. He is not in distress at this time. Resting comfortably. Tolerating the 6L well. No increased work of breathing or chest pain since arrival. Progress Note #2: Time: 03:01 Progress Note @1255 No beds at [facility] in [place]; no beds at [facility] or [place]. Early Branch Control put me in touch with [facility] at [phone]. They are reviewing his chart. Will call back Progress Note #3: Time: 04:46 Progress Note Patient begrudgingly consented to left EJ line. Placed without difficulty left neck. Satting 100% on 6L. Will turn him down to 4L and see how he does. BP looks good. Bed assignment obtained at . Will transport this morning. Initial ECG Impression Date: Apr 13, 2021 Initial ECG Impression Time: 00:03 Initial ECG Rate: 87 Initial ECG Rhythm: Normal Sinus Initial ECG Intervals [place] 161 QRS 90 QTc [address] segment elevation or depression, no ectopy is noted. Diagnostic Imaging Diagonstic Imaging: Xray Plain Films/CT/US/NM/MRI: chest Comments Chest Xray: Pulmonary edema Departure Impression Primary Impression: Pulmonary edema Qualified Codes: J81.0 - Acute pulmonary edema Additional Impressions: ESRD (end stage renal disease) on dialysis High blood pressure Qualified Codes: I10 - Essential (primary) hypertension Hypoxia Disposition: 02 XFER SHT-TRM HOSP Condition: Stable Transfer Transfer Reason: Exceeds level of care Time Spoke to Accepting Phy: 03:30 Transfer Progress Notes Accepted through Transfer Center on behalf of doc - Transfer Time: 09:30 Transfer Facility: Method of Transfer: EMS Departure-Patient Inst. Referrals: [facility] (PCP) Primary Care Physician CHAPARRO MUIJCA (Family) Primary Care Physician CAMELIA ERWIN MD Apr 13, 2021 00:27
[2021-04-13 01:05] LABS: BASOPHILS # (AUTO) 0.1 10^3/uL (0.0-0.1); BASOPHILS % (AUTO) 1 % (0-10); EOSINOPHILS # (AUTO) 0.2 10^3/uL (0.0-0.3); EOSINOPHILS % (AUTO) 2 % (0-10); HEMATOCRIT 27 % (40-54); HEMOGLOBIN 8.4 g/dL (13.3-17.7); LYMPHOCYTES # (AUTO) 1.1 10^3/uL (1.0-4.0); LYMPHOCYTES % (AUTO) 9 % (12-44); MEAN CORPUSCULAR HEMOGLOBIN 28 pg (25-34); MEAN CORPUSCULAR HGB CONC 32 g/dL (32-36); MEAN CORPUSCULAR VOLUME 88 fL (80-99); MEAN PLATELET VOLUME 9.4 fL (9.0-12.2); MONOCYTES # (AUTO) 0.5 10^3/uL (0.0-1.0); MONOCYTES % (AUTO) 4 % (0-12); NEUTROPHILS # (AUTO) 10.9 10^3/uL (1.8-7.8); NEUTROPHILS % (AUTO) 85 % (42-75); PLATELET COUNT 184 10^3/uL (130-400); WHITE BLOOD COUNT 12.8 10^3/uL (4.3-11.0)
[2021-04-13 01:15] LABS: ALBUMIN 4.2 GM/DL (3.2-4.5); CHLORIDE 103 MMOL/L (98-107); POTASSIUM 4.4 MMOL/L (3.6-5.0); SODIUM 142 MMOL/L (135-145)
[2021-04-13 01:17] LABS: CALCIUM 8.5 MG/DL (8.5-10.1); FIBRIN DEGRADATION PRODUCTS 1.77 UG/ML (0.00-0.49); INR 1.1 (0.8-1.4)
[2021-04-13 01:18] LABS: GLUCOSE 134 MG/DL (70-105); TOTAL PROTEIN 8.3 GM/DL (6.4-8.2)
[2021-04-13 01:19] LABS: CARBON DIOXIDE 20 MMOL/L (21-32)
[2021-04-13 01:20] LABS: BILIRUBIN,TOTAL 0.6 MG/DL (0.1-1.0)
[2021-04-13 01:21] LABS: ALKALINE PHOSPHATASE 58 U/L (40-136); CREATININE SERUM 15.96 MG/DL (0.60-1.30); GFR ESTIMATED 3
[2021-04-13 01:22] LABS: BUN/CREATININE RATIO 4
[2021-04-13 01:24] LABS: ALANINE AMINOTRANSFERASE 34 U/L (0-55)
--- NOTE | 2021-04-13 06:45 | Diagnostic Imaging Report ---
EXAM: CHEST 1 VIEW, AP/PA ONLY INDICATION: Shortness of breath. COMPARISON: 12/06/2017. FINDINGS: Normal heart size. Airspace opacities throughout both lungs. Normal central pulmonary vascularity. No pleural effusion or pneumothorax. No acute osseous findings. IMPRESSION: Airspace opacities throughout both lungs suspicious for pneumonitis. A degree of edema is not excluded. Dictated by: Dictated on workstation # [id number]
[2021-04-13 09:45] VITALS: BP 163/56
== END 2021-04-13 09:45 | disposition short-term general hospital (02) ==
LOC: EDUNIT# 23:58 → ER 23:59
DX: J81.1 Chronic pulmonary edema (principal); I12.0 Hypertensive chronic kidney disease with stage 5 chronic kidney disease or end stage renal disease; E11.22 Type 2 diabetes mellitus with diabetic chronic kidney disease; N18.6 End stage renal disease; R09.02 Hypoxemia; I25.10 Atherosclerotic heart disease of native coronary artery without angina pectoris; E78.00 Pure hypercholesterolemia, unspecified; M10.9 Gout, unspecified; F41.9 Anxiety disorder, unspecified; Z20.822 Contact with and (suspected) exposure to COVID-19; Z79.84 Long term (current) use of oral hypoglycemic drugs; Z79.82 Long term (current) use of aspirin; Z79.899 Other long term (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 therapy
CPT/HCPCS: 36415; 71045; 80053; 82947; 83880; 84484; 85025; 85379; 85610; 85730; 87636; 93005; 94760

== ENCOUNTER 2021-09-02 01:48 | Emergency (ER) | payer MEDICARE ==
[~2021-09-02] VITALS: Ht 185.4 cm; Wt 123.4 kg
[2021-09-02] MEDS ORDERED: NITROGLYCERIN 2% OINT 1 GM UNIT DOSE PACKET TOP STA (02:10)
[2021-09-02] MEDS ORDERED: ASPIRIN 81 MG CHEW (CHILDREN'S ASA) PO ONE (02:15)
--- NOTE | 2021-09-02 02:37 | ED General ---
General Chief Complaint: Chest Pain Stated Complaint: SOB,TIGHTNESS OF CHEST,ANKLES SWOLLEN Source of Information: Patient, Other (FEMALE S.O. TRIES TO DO ALL TALKING FOR PT) History of Present Illness Date Seen by Provider: Sep 02, 2021 Time Seen by Provider: 02:10 Initial Comments PT ARRIVES VIA POV FROM HOME PT C/O SHORTNESS OF BREATH AND CHEST TIGHTNESS--BEGAN AROUND 2330 TONIGHT, WHILE SITTING. WOKE UP S.O. AT THAT TIME. ALSO HAVING ABDOMINAL DISCOMFORT AND BACK PAIN RATES CHEST TIGHTNESS 7/10 AT THIS TIEM C/O INCREASED SWELLING IN LEGS/FEET AND ABDOMEN TONIGHT NO COUGH NO FEVER NO NAUSEA/VOMITING NO DIFFICULTY URINATING--STILL MAKES URINE. PT HAS ESRD ON DIALYSIS--[id number]--HAD NORMAL SESSION ON TuesdayAUGUST 31, AND IS DUE THIS MORNING FOR NEXT SESSION PT HAS CAD WITH STENTS X 3, AND CHF. PT ALSO HAS HTN PT WAS DX WITH RENAL CANCER AND HAD LEFT NEPHRECTOMY IN 2020. NO CHEMO OR RADIATION PT IS NON-INSULIN DEPENDENT DIABETIC, DOES NOT CHECK BLOOD GLUCOSE ROUTINELY, AND DID NOT CHECK IT TONIGHT DENIES HISTORY OF ASTHMA OR COPD AND DOES NOT REQUIRE HOME O2. PT DENIES ANY MISSED DOSES OF MEDICATIONS OR ANY CHANGES IN MEDICATIONS. PT IS ON ASPIRIN ,BUT NO OTHER BLOOD THINNERS PT SMOKED 1 PPD, QUIT 2 YEARS AGO USED TO DRINK BUT DOES NOT DRINK ANYMORE DOES SMOKE MARIJUANA ON REGULAR BASIS. PT HAS NOT HAD COVID OR FLU VACCINES. 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 BOWMAN EMERGENCY DEPARTMENT PHYSICIAN: DR. Ramos"--PT HAS DIALYSIS AT [facility] Allergies and Home Medications Allergies Coded Allergies: No Known Drug Allergies (Unverified , 10/24/19) Patient Home Medication List Home Medication List Reviewed: Yes Allopurinol (Allopurinol) 300 Mg Tablet, 300 MG PO DAILY, (Reported) Entered as Reported by: JEFF BOUCHER on 10/24/19 1223 Aspirin (Aspirin) 81 Mg Tab.chew, 81 MG PO DAILY, (Reported) Entered as Reported by: JEFF BOUCHER on 10/24/19 1223 Atorvastatin Calcium (Lipitor) 10 Mg Tablet, 10 MG PO HS, (Reported) Entered as Reported by: VIDHYA ALEJO on 06/04/16 1539 Metformin HCl (Metformin HCl) 500 Mg Tablet, 500 MG PO DAILY, (Reported) Entered as Reported by: JEFF BOUCHER on 10/24/19 1223 Metoprolol Tartrate (Metoprolol Tartrate) 50 Mg Tablet, 50 MG PO DAILY, (Reported) Entered as Reported by: JEFF BOUCHER on 10/24/19 1223 Quetiapine Fumarate (Seroquel) 50 Mg Tablet, 50 MG PO DAILY, (Reported) Entered as Reported by: JEFF BOUCHER on 10/24/19 1223 Review of Systems Review of Systems Constitutional: no symptoms reported; No chills, No fever EENTM: no symptoms reported Respiratory: see HPI; No cough; dyspnea on exertion, orthopnea, short of breath Cardiovascular: see HPI, chest pain, edema; No palpitations, No syncope Gastrointestinal: see HPI, abdominal pain; No nausea, No vomiting Genitourinary: see HPI Musculoskeletal: see HPI, back pain, other (LEG SWELLING) Skin: no symptoms reported Psychiatric/Neurological: No Symptoms Reported Hematologic/Lymphatic: No Symptoms Reported Immunological/Allergic: no symptoms reported Past Pswmdnx-Puarde-Uskfwc Hx Patient Social History Tobacco Use?: Yes Tobacco type used: Cigarettes Smoking Status: Former Smoker Substance use?: Yes Substance type: Marijuana Substance frequency: Daily Alcohol Use?: Yes Immunizations Up To Date Tetanus Booster (TDap): Unknown PED Vaccines UTD: Yes Seasonal Allergies Seasonal Allergies: No Past Medical History Surgeries: Yes Cardiac, Coronary Stent, Dialysis, Gallbladder, Nephrectomy, Vascular Surgery Respiratory: No Cardiac: Yes (CARDIAC CATHS--STENTS X 3 --LAST CATH 08/04/16; CHF/FLUID OVERLOAD) Chronic Edema/Swelling, Coronary Artery Disease, High Cholesterol, Hypertension Neurological: Yes (PERIPHERAL NEUROPATHY) Neuropathy Reproductive Disorders: No Sexually Transmitted Disease: No HIV/AIDS: No Genitourinary: Yes (DIALYSIS M-W-F) Kidney Stones, Renal Failure Gastrointestinal: Yes Gastroesophageal Reflux, Polyps, Gall Bladder Disease Musculoskeletal: Yes (CHRONIC KNEE PAIN, ANKLE PAIN, FOOT PAIN ; PSEUDO GOUT ) Gout Endocrine: Yes Diabetes, Non-Insulin dep HEENT: No (GLASSES) Loss of Vision: Denies Hearing Impairment: Denies Cancer: Yes Kidney Did You Recieve Any Treatments: Yes What Type of Treatment Did You: Surgical Intervention RENAL CANCER--S/P LEFT NEPHRECTOMY IN 2020 NO CHEMO OR RADIATION Psychosocial: Yes Anxiety Integumentary: No Blood Disorders: No Adverse Reaction/Blood Tranf: No (N/A) Family Medical History Chest pain 03 MOTHER Family history: Arthritis 03 MOTHER Family history: Diabetes mellitus 03 MOTHER 09 BROTHER Family history: Gastrointestinal disease 03 MOTHER 09 BROTHER Family history: Thyroid disorder 03 MOTHER Headache 03 MOTHER Hypercholesterolemia 03 FATHER 03 MOTHER 09 BROTHER Myocardial infarction 03 FATHER 03 MOTHER No Family History of: Abdominal aortic aneurysm Niraj's disease Alcoholism Aphasia Cancer Cancer of colon Cataract Congenital heart disease Congestive heart failure Cystic fibrosis Dementia Dysphagia Family history: Allergy Family history: Alzheimer's disease Family history: Asthma Family history: Breast disease Family history: Cardiovascular disease Family history: Coronary thrombosis Family history: Glaucoma Family history: Hypertension Family history: Osteoporosis Hearing loss Heart disease Hereditary disease History of - anemia History of - disorder History of - respiratory disease History of drug abuse Human immunodeficiency virus (HIV) seropositivity Kidney disease Malignant neoplasm of lung Parkinson's disease Prostate cancer Psychotic disorder Seizure disorder Stroke Tuberculosis Visual impairment SOCIAL HISTORY: -SMOKED 1 PPD, QUIT 2019 -[facility]--USED TO DRINK, BUT QUIT -DRUGS--SMOKES MARIJUANA DAILY. PAST SURGICAL HISTORY; -"GROWTH UNDER ABDOMEN" REMOVED--BENIGN, PER PT - URETERAL STENTS -LEFT NEPHRECTOMY 2020 FOR RENAL CANCER. -MULTIPLE CARDIAC CATHS--STENTS X 3--MULTIPLE STENTS TO LAD AND RCA -RIGHT ARM AV DIALYSIS GRAFT/FISTULA -10/31/19--COLONOSCOPY BY DR. GARNETT: Procedure Performed/Findings colonoscopy c hot biospy polypectomy and cold biopsy anorectal mucosal change -08/04/2016-MOST RECENT CARDIAC CATH BY DR. BOWMAN Physical Exam Vital Signs Vital Signs - First Documented 09/02/21 01:57 Temp 36.0 Pulse 82 Resp 24 B/P (MAP) 202/101 (134) Pulse Ox 91 O2 Delivery Nasal Cannula O2 Flow Rate 2.00 Capillary Refill : Height, Weight, BMI Height: 6'1.00" Weight: 278lbs. 6.0oz. 126.430145gt; 32.43 BMI Method:Stated General Appearance: No Apparent Distress, WD/WN, Other (VERY FLAT AFFECT) HEENT: Other (MILD PERIORBITAL EDEMA--LEFT > RIGHT. ) Neck: Normal Inspection; No Carotid Bruit, No JVD Respiratory: Normal Breath Sounds, No Accessory Muscle Use, No Respiratory Distress; No Rales, No Stridor, No Wheezing Cardiovascular: Regular Rate, Rhythm, No JVD, No Murmur, Normal Peripheral Pulses Gastrointestinal: Normal Bowel Sounds, No Organomegaly, No Pulsatile Mass, Non Tender, Soft Extremity: Normal Capillary Refill, Normal Range of Motion, Non Tender, No Calf Tenderness, Pedal Edema (1+ BILATERALLY. ) Neurologic/Psychiatric: Alert, Oriented x3, No Motor/Sensory Deficits, electrical continuity inspector II- XII Norm as Tested Skin: Normal Color (PT IS BLACK. ) Progress/Results/Core Measures Suspected Sepsis SIRS Temperature: Pulse: Respiratory Rate: Laboratory Tests 09/02/21 02:30: White Blood Count 12.4H Blood Pressure / Mean: Laboratory Tests 09/02/21 02:30: Creatinine 15.30H, INR Comment 1.1, Platelet Count 166, Total Bilirubin 0.7 Results/Orders Lab Results Laboratory Tests Test 09/02/21 02:22 09/02/21 02:30 Range/Units Influenza Type A (RT-PCR) Not Detected Not Detecte Influenza Type B (RT-PCR) Not Detected Not Detecte SARS-CoV-2 RNA (RT-PCR) Not Detected Not Detecte White Blood Count 12.4 H 4.3-11.0 10^3/uL Red Blood Count 3.07 L 4.30-5.52 10^6/uL Hemoglobin 8.3 L 13.3-17.7 g/dL Hematocrit 27 L 40-54 % Mean Corpuscular Volume 88 80-99 fL Mean Corpuscular Hemoglobin 27 25-34 pg Mean Corpuscular Hemoglobin Concent 31 L 32-36 g/dL Red Cell Distribution Width 19.6 H 10.0-14.5 % Platelet Count 166 130-400 10^3/uL Mean Platelet Volume 10.3 9.0-12.2 fL Immature Granulocyte % (Auto) 0 % Neutrophils (%) (Auto) 85 H 42-75 % Lymphocytes (%) (Auto) 9 L 12-44 % Monocytes (%) (Auto) 4 0-12 % Eosinophils (%) (Auto) 1 0-10 % Basophils (%) (Auto) 1 0-10 % Neutrophils # (Auto) 10.4 H 1.8-7.8 10^3/uL Lymphocytes # (Auto) 1.1 1.0-4.0 10^3/uL Monocytes # (Auto) 0.5 0.0-1.0 10^3/uL Eosinophils # (Auto) 0.2 0.0-0.3 10^3/uL Basophils # (Auto) 0.1 0.0-0.1 10^3/uL Immature Granulocyte # (Auto) 0.0 0.0-0.1 10^3/uL Neutrophils % (Manual) 88 % Lymphocytes % (Manual) 7 % Monocytes % (Manual) 4 % Eosinophils % (Manual) 1 % Hypochromasia SLIGHT Microcytosis SLIGHT Target Cells SLIGHT Prothrombin Time 14.4 12.2-14.7 SEC INR Comment 1.1 0.8-1.4 Activated Partial Thromboplast Time 38 H 24-35 SEC Sodium Level 144 135-145 MMOL/L Potassium Level 4.2 3.6-5.0 MMOL/L Chloride Level 95 L 98-107 MMOL/L Carbon Dioxide Level 29 21-32 MMOL/L Anion Gap 20 H 5-14 MMOL/L Blood Urea Nitrogen 51 H 7-18 MG/DL Creatinine 15.30 H 0.60-1.30 MG/DL Estimat Glomerular Filtration Rate 3 BUN/Creatinine Ratio 3 Glucose Level 120 H 70-105 MG/DL Calcium Level 9.3 8.5-10.1 MG/DL Corrected Calcium 9.3 8.5-10.1 MG/DL Magnesium Level 2.4 1.6-2.4 MG/DL Total Bilirubin 0.7 0.1-1.0 MG/DL Aspartate Amino Transf (AST/SGOT) 36 H 5-34 U/L Alanine Aminotransferase (ALT/SGPT) 40 0-55 U/L Alkaline Phosphatase 66 40-136 U/L Troponin I < 0.028 <0.028 NG/ML Total Protein 7.6 6.4-8.2 GM/DL Albumin 4.0 3.2-4.5 GM/DL Amylase Level 195 H 25-125 U/L Lipase 98 H 8-78 U/L My Orders Orders - ANGELIA CHAMORRO DO Ekg Tracing (09/02/21 01:54) Ed Iv/Invasive Line Start (09/02/21 02:10) O2 (09/02/21 02:10) Monitor-Rhythm Ecg Trace Only (09/02/21 02:10) Amylase (09/02/21 02:10) Cbc With Automated Diff (09/02/21 02:10) Comprehensive Metabolic Panel (09/02/21 02:10) Lipase (09/02/21 02:10) Magnesium (09/02/21 02:10) Protime With Inr (09/02/21 02:10) Partial Thromboplastin Time (09/02/21 02:10) Troponin I [place] (09/02/21 02:10) Chest 1 View, Ap/Pa Only (09/02/21 02:10) Ed Iv/Invasive Line Start (09/02/21 02:10) Aspirin Chewable Tablet (Baby Aspirin Ch (09/02/21 02:15) Nitroglycerin Ointment (Nitrobid Ointme (09/02/21 02:10) Covid 19 Inhouse Test (09/02/21 02:21) Influenza A And B By Pcr (09/02/21 02:21) Isolation Central Supply Req (09/02/21 02:21) Manual Differential (09/02/21 02:30) Nitroglycerin Ointment (Nitrobid Ointme (09/02/21 03:15) Labetalol Injection (Normodyne Injection (09/02/21 03:15) Furosemide Injection (Lasix Injection) (09/02/21 03:15) Hydralazine Injection (Apresoline Inject (09/02/21 04:30) Medications Given in ED Current Medications Medications Dose Ordered Sig/Augusto Route Start Time Stop Time Status Last Admin Dose Admin Aspirin 324 mg ONCE ONCE PO 09/02/21 02:15 09/02/21 02:16 DC 09/02/21 02:25 324 MG Furosemide 40 mg ONCE ONCE IVP 09/02/21 03:15 09/02/21 03:16 DC 09/02/21 03:23 40 MG Hydralazine HCl 10 mg ONCE ONCE IV 09/02/21 04:30 09/02/21 04:31 DC 09/02/21 04:55 10 MG Labetalol HCl 20 mg ONCE ONCE IV 09/02/21 03:15 09/02/21 03:16 DC 09/02/21 03:23 20 MG Nitroglycerin 1 inch ONCE ONCE TOP 09/02/21 03:15 09/02/21 03:16 DC 09/02/21 03:23 1 INCH Vital Signs/I&O 09/02/21 09/02/21 01:57 05:50 Temp 36.0 Pulse 82 74 Resp 24 18 B/P (MAP) 202/101 (134) 205/91 Pulse Ox 91 98 O2 Delivery Nasal Cannula Nasal Cannula O2 Flow Rate 2.00 2.00 Capillary Refill : Progress Note : Progress Note O2 SAT 85-86% ON ROOM AIR ON ARRIVAL, UP TO 99% ON 2L/NC GIVEN ASPIRIN, NITROPASTE, LABETALOL AND LASIX. CHEST PAIN RESOLVED AFTER 1" OF NITROPASTE GIVEN ADDITIONAL NITROPASTE AND LABETALOL, WELL HYDRALAZINE FOR PERSISTENT HYPERTENSION--SYSTOLIC BP STILL IN 200'S ECG Initial ECG Impression Date: Sep 02, 2021 Initial ECG Impression Time: 02:03 Initial ECG Rate: 80 Initial ECG Rhythm: Normal Sinus Diagnostic Imaging Comments CXR--CHF/FLUID OVERLOAD, PENDING RADIOLOGIST REVIEW' Reviewed: Reviewed by Me Departure Communication (Admissions) 0312--CALLED [facility], PT PREFERENCE. [facility] HOSPITALIST AND EMERGENCY DEPARTMENT PHYSICIAN. 0325--SPOKE WITH DR. Ramos", PT'S EMERGENCY DEPARTMENT PHYSICIAN. [facility] IS AT CAPACITY, ARE ALL OTHER HOSPITALS WITH DIALYSIS CAPABILITY IN THE AREA. HE ADVISES TO HOLD HERE IN ER AND THEN SEND PT TO DIALYSIS HERE IN [place] WHEN THEY OPEN AT 0700, HE IS DUE FOR DIALYSIS THIS MORNING. WILL CALL THEM BACK IF PT'S CONDITION DETERIORATES. 0341--DR. Ramos" HAS CALLED BACK, HAS NOW DECIDED THAT PT DOES NEED TO BE TRANSFERRED TO [facility] FOR EMERGENT DIALYSIS. AGREES WITH CURRENT TREATMENT AND DOES NOT HAVE ANY ADDITIONAL RECOMMENDATIONS. [facility] HOSPITALIST. 0350--[facility] HAS BEEN CONTACTED AND ADVISED OF NEED FOR TRANSFER TO [place]. WILL CALL THEM BACK WITH BED ASSIGNMENT. 0421--SPOKE WITH DR. MARK, HOSPITALIST RESIDENT. ACCEPTS PT FOR ADMIT. THEY WILL CALL BACK WITH BED ASSIGNMENT 0450--CALLED [facility] FOR BED ASSIGNMENT. MESSAGE LEFT ON MACHINE. 0500--[facility] HAS CALLED BACK WITH BED ASSIGNMENT AND EMS HAS BEEN DISPATCHED. 0540--EMS HERE FOR TRANSPORT Impression Primary Impression: Acute respiratory failure with hypoxia Additional Impressions: CHF/FLUID OVERLOAD ESRD on dialysis Chest pain HX OF CAD WITH STENTS Hypertensive urgency Disposition: 02 XFER SHT-TRM HOSP Condition: Stable Transfer Transfer Reason: Exceeds level of care (NEPHROLOGY SERVICES/DIALYSIS) [facility] Method of Transfer: EMS Departure-Patient Inst. Referrals: [facility] (PCP) Primary Care Physician SIMON STARK APRN (Family) Primary Care Physician ANGELIA CHAMORRO DO Sep 02, 2021 02:37
[2021-09-02 02:39] LABS: BASOPHILS # (AUTO) 0.1 10^3/uL (0.0-0.1); BASOPHILS % (AUTO) 1 % (0-10); EOSINOPHILS # (AUTO) 0.2 10^3/uL (0.0-0.3); EOSINOPHILS % (AUTO) 1 % (0-10); HEMATOCRIT 27 % (40-54); HEMOGLOBIN 8.3 g/dL (13.3-17.7); LYMPHOCYTES # (AUTO) 1.1 10^3/uL (1.0-4.0); LYMPHOCYTES % (AUTO) 9 % (12-44); MEAN CORPUSCULAR HEMOGLOBIN 27 pg (25-34); MEAN CORPUSCULAR HGB CONC 31 g/dL (32-36); MEAN CORPUSCULAR VOLUME 88 fL (80-99); MEAN PLATELET VOLUME 10.3 fL (9.0-12.2); MONOCYTES # (AUTO) 0.5 10^3/uL (0.0-1.0); MONOCYTES % (AUTO) 4 % (0-12); NEUTROPHILS # (AUTO) 10.4 10^3/uL (1.8-7.8); NEUTROPHILS % (AUTO) 85 % (42-75); PLATELET COUNT 166 10^3/uL (130-400); WHITE BLOOD COUNT 12.4 10^3/uL (4.3-11.0)
[2021-09-02 02:52] LABS: CHLORIDE 95 MMOL/L (98-107); INR 1.1 (0.8-1.4); POTASSIUM 4.2 MMOL/L (3.6-5.0); PROTHROMBIN TIME PATIENT 14.4 SEC (12.2-14.7); SODIUM 144 MMOL/L (135-145)
[2021-09-02 02:53] LABS: AMYLASE 195 U/L (25-125); CALCIUM 9.3 MG/DL (8.5-10.1)
[2021-09-02 02:54] LABS: GLUCOSE 120 MG/DL (70-105); TOTAL PROTEIN 7.6 GM/DL (6.4-8.2)
[2021-09-02 02:55] LABS: CARBON DIOXIDE 29 MMOL/L (21-32)
[2021-09-02 02:56] LABS: BILIRUBIN,TOTAL 0.7 MG/DL (0.1-1.0)
[2021-09-02 02:57] LABS: ALKALINE PHOSPHATASE 66 U/L (40-136)
[2021-09-02 02:58] LABS: GFR ESTIMATED 3
[2021-09-02 02:59] LABS: BUN/CREATININE RATIO 3
[2021-09-02 03:01] LABS: ALANINE AMINOTRANSFERASE 40 U/L (0-55); MAGNESIUM 2.4 MG/DL (1.6-2.4)
[2021-09-02 03:02] LABS: LIPASE 98 U/L (8-78)
[2021-09-02 03:12] LABS: EOSINOPHILS % (MANUAL) 1 %; LYMPHOCYTES % (MANUAL) 7 %; MONOCYTES % (MANUAL) 4 %; NEUTROPHILS % (MANUAL) 88 %
[2021-09-02 03:13] LABS: HYPOCHROMASIA SLIGHT; MICROCYTOSIS SLIGHT; TARGET CELLS SLIGHT
[2021-09-02] MEDS ORDERED: LABETALOL HCL 20 MG/4 ML VIAL IV ONE (03:15)
[2021-09-02] MEDS ORDERED: NITROGLYCERIN 2% OINT 1 GM UNIT DOSE PACKET TOP ONE (03:15)
[2021-09-02] MEDS ORDERED: FUROSEMIDE 40 MG/4 ML INJ (LASIX) IVP ONE (03:15)
[2021-09-02] MEDS ORDERED: hydrALAZINE (APESOLINE) 20 MG/ML VIAL IV ONE (04:30)
[2021-09-02 05:50] VITALS: BP 205/91
--- NOTE | 2021-09-02 06:12 | Diagnostic Imaging Report ---
CLINICAL INDICATION: Patient with chest pain. EXAM: Portable chest x-ray upright view. COMPARISON: Chest x-ray dated 04/13/2021. FINDINGS: There is cardiomegaly with mild pulmonary vascular congestion. There is mild subtle patchy airspace opacities involving both lung bases. There is no pleural effusion or pneumothorax. There are small spurs involving the thoracic spine. IMPRESSION: 1: There is cardiomegaly with mild pulmonary vascular congestion which may be seen with congestive heart failure. 2: There is mild patchy airspace opacities involving both lower lung elkins which may be related to pulmonary edema/congestion, but infectious process cannot be completely excluded. Dictated by: Dictated on workstation # [id number]
== END 2021-09-02 05:52 | disposition short-term general hospital (02) ==
LOC: EDUNIT# 01:48 → ER 01:51
DX: I13.2 Hypertensive heart and chronic kidney disease with heart failure and with stage 5 chronic kidney disease, or end stage renal disease (principal); E11.22 Type 2 diabetes mellitus with diabetic chronic kidney disease; N18.6 End stage renal disease; J96.01 Acute respiratory failure with hypoxia; I16.0 Hypertensive urgency; I25.10 Atherosclerotic heart disease of native coronary artery without angina pectoris; E11.42 Type 2 diabetes mellitus with diabetic polyneuropathy; Z87.891 Personal history of nicotine dependence; Z85.528 Personal history of other malignant neoplasm of kidney; Z99.2 Dependence on renal dialysis; Z90.5 Acquired absence of kidney; Z95.5 Presence of coronary angioplasty implant and graft; Z20.822 Contact with and (suspected) exposure to COVID-19
CPT/HCPCS: 36415; 71045; 80053; 82150; 83690; 83735; 84484; 85007; 85027; 85610; 85730; 87636; 93005; 93041

== ENCOUNTER → 2022-01-06 | Outpatient (CLI) | payer MEDICARE ==
[~2022-01-06] MED LIST changes: +CATHETER FLUSH 10 ML SYR IVP PRN; +CLOP-31 PO; -CLOP75TA69 PO; +REGADENOSON 0.4 MG/5 ML SYR (LEXISCAN) IV ONE
== END ==
LOC: CARD 08:05
PROVIDERS: ATTEND Internal Medicine Cardiovascular Disease
DX: I11.9 Hypertensive heart disease without heart failure (principal); I08.3 Combined rheumatic disorders of mitral, aortic and tricuspid valves; I25.10 Atherosclerotic heart disease of native coronary artery without angina pectoris
CPT/HCPCS: 93306

== ENCOUNTER → 2022-01-19 | Outpatient (CLI) | payer MEDICARE ==
[~2022-01-19] MED LIST changes: -CATHETER FLUSH 10 ML SYR IVP PRN; -CLOP-31 PO; +CLOP75TA69 PO
[2022-01-19] MEDS: CATHETER FLUSH 10 ML SYR IVP PRN ×2 (07:17→08:08)
[2022-01-19 08:06] VITALS: BP 202/103
--- NOTE | 2022-01-19 12:03 | Cardiology Stress Test Report ---
Stress Test Report Date of Procedure/Referring: Date of Procedure: Jan 19, 2022 [facility] Admitting Physician Admitting Physician: Attending Physician: Erica Valadez MD Baseline Heart Rate: 71 Baseline Blood Pressure: Blood Pressure Systolic: 202 Blood Pressure Diastolic: 103 Baseline Vitals Vital Signs Date Time Temp Pulse Resp B/P (MAP) Pulse Ox O2 Delivery O2 Flow Rate FiO2 01/19/22 08:06 70 202/103 (136) 98 Room Air Baseline EKG: Baseline EKG: NSR Summary After explaining the procedure to the patient, he signed a consent and then brought to the stress nuclear laboratory. Patient received 0.4 mg Lexiscan for stress test, ECG, heart rate and blood pressure were monitored continuously. Resting and stress dose of radio tracer were injected, imaging was acquired and reviewed in short axis, horizontal long axis and vertical long axis views. TID: 1.18 SSS: 6 SDS: 0 EF: 34 1. Patient tolerated Lexiscan well 2. Patchy uptake, the IV line was infiltrated during the injection of radioisotope. Overall there is a fixed defect at the basal to mid anterior wall and basal to mid inferior wall. No significant ischemia was noted 3. Prominent left ventricle with diffuse left ventricular hypokinesia, ejection fraction 34% Copy Copies To 1: [facility]/ERICA FANG MD Jan 19, 2022 12:03
== END ==
LOC: CARD 06:34
PROVIDERS: ATTEND Internal Medicine Cardiovascular Disease
DX: I10 Essential (primary) hypertension (principal); I25.10 Atherosclerotic heart disease of native coronary artery without angina pectoris
CPT/HCPCS: 78452; 93017; A9502

== ENCOUNTER → 2022-03-02 | Outpatient (CLI) | payer MEDICARE ==
[~2022-03-02] MED LIST changes: +CLOP-31 PO; -CLOP75TA69 PO; -REGADENOSON 0.4 MG/5 ML SYR (LEXISCAN) IV ONE
== END | disposition home or self-care (01) ==
LOC: PREOP 05:35
PROVIDERS: ATTEND Surgery
DX: Z01.818 Encounter for other preprocedural examination (principal)

== ENCOUNTER 2022-05-27 00:01 | Inpatient (IN) | payer MEDICARE, MEDICAID ==
[~2022-05-27] VITALS: Ht 185.5 cm; Wt 113.0 kg
[2022-05-27] MEDS ORDERED: ASPIRIN 81 MG CHEW (CHILDREN'S ASA) PO ONE (00:15)
[2022-05-27] MEDS ORDERED: NITROGLYCERIN 0.4 MG SL TABS BTL 25'S SL PRN ×2 (00:15→02:30)
[2022-05-27 00:22] LABS: BASOPHILS # (AUTO) 0.1 10^3/uL (0.0-0.1); BASOPHILS % (AUTO) 1 % (0-10); EOSINOPHILS # (AUTO) 0.2 10^3/uL (0.0-0.3); EOSINOPHILS % (AUTO) 2 % (0-10); HEMATOCRIT 27 % (40-54); HEMOGLOBIN 8.7 g/dL (13.3-17.7); LYMPHOCYTES # (AUTO) 1.5 10^3/uL (1.0-4.0); LYMPHOCYTES % (AUTO) 20 % (12-44); MEAN CORPUSCULAR HEMOGLOBIN 29 pg (25-34); MEAN CORPUSCULAR HGB CONC 32 g/dL (32-36); MEAN CORPUSCULAR VOLUME 92 fL (80-99); MEAN PLATELET VOLUME 8.9 fL (9.0-12.2); MONOCYTES # (AUTO) 0.4 10^3/uL (0.0-1.0); MONOCYTES % (AUTO) 6 % (0-12); NEUTROPHILS # (AUTO) 5.3 10^3/uL (1.8-7.8); NEUTROPHILS % (AUTO) 71 % (42-75); PLATELET COUNT 138 10^3/uL (130-400); WHITE BLOOD COUNT 7.5 10^3/uL (4.3-11.0)
--- NOTE | 2022-05-27 00:29 | ED Chest Pain ---
General Chief Complaint: Chest Pain Stated Complaint: CHEST PAIN Nursing Triage Note: Pt presents with c/o chest pain that started approx 3 days ago. He reports pain is worse when he's laying down. Pt presents with nausea and vomiting with onset of pain. Source: patient, old records, spouse History of Present Illness Date Seen by Provider: May 27, 2022 Time Seen by Provider: 00:04 Initial Comments PT ARRIVES VIA POV FROM HOME WITH . PT C/O CHEST PAIN SINCE TUESDAY NIGHT 05/23/22 PAIN COMES AND GOES, AND IS ESSENTIALLY ONLY AT NIGHT AFTER HE LAYS DOWN STATES HE GETS A BURNING SENSATION IN HIS CHEST, GETS A LITTLE SHORT OF BREATH AND THEN STARTS VOMITING--EVERY NIGHT, EVERY TIME HE LAYS DOWN. HE HAS VOMITED X 3 TONIGHT--INCLUDING ON ARRIVAL TO ER. HE IS NOT CURRENTLY NAUSEATED. NO ABDOMINAL PAIN NO RADIATION OF PAIN RATES PAIN "03/01" --HE HAS NOT TAKEN ANYTHING FOR SYMPTOMS PT HAS ESRD ON DIALYSIS--M-W---HAD DIALYSIS TODAY ( TUESDAY) AND FELT FINE DURING DIALYSIS. THEY TOOK OFF NORMAL AMOUNT OF FLUID. HE DOES NOT HAVE ANY CURRENT SWELLING PT DOES HAVE A HISTORY OF NIDDM, RENAL CANCER, HTN, HYPERLIPIDEMIA AND CAD WITH PRIOR STENTS. HE HAD A STRESS TEST BY DR. BOWMAN 12/2021-- 1. Patient tolerated Lexiscan well 2. Patchy uptake, the IV line was infiltrated during the injection of radioisotope. Overall there is a fixed defect at the basal to mid anterior wall and basal to mid inferior wall. No significant ischemia was noted 3. Prominent left ventricle with diffuse left ventricular hypokinesia, ejection fraction 34% HE DOES HAVE A HISTORY OF GERD AND TAKES OMPRAZOLE. Allergies and Home Medications Allergies Coded Allergies: No Known Drug Allergies (Unverified , 10/24/19) Patient Home Medication List Allopurinol (Allopurinol) 300 Mg Tablet, 300 MG PO DAILY, (Reported) Entered as Reported by: JEFF BOUCHER on 10/24/19 1223 Aspirin (Aspirin) 81 Mg Tab.chew, 81 MG PO DAILY, (Reported) Entered as Reported by: JEFF BOUCHER on 10/24/19 1223 Atorvastatin Calcium (Lipitor) 10 Mg Tablet, 10 MG PO HS, (Reported) Entered as Reported by: VIDHYA ALEJO on 06/04/16 1539 Metformin HCl (Metformin HCl) 500 Mg Tablet, 500 MG PO DAILY, (Reported) Entered as Reported by: JEFF BOUCHER on 10/24/19 1223 Metoprolol Tartrate (Metoprolol Tartrate) 50 Mg Tablet, 50 MG PO DAILY, (Reported) Entered as Reported by: JEFF BOUCHER on 10/24/19 1223 Quetiapine Fumarate (Seroquel) 50 Mg Tablet, 50 MG PO DAILY, (Reported) Entered as Reported by: JEFF BOUCHER on 10/24/19 1223 Review of Systems Review of Systems Constitutional: no symptoms reported; No diaphoresis Respiratory: See HPI, Orthopnea Cardiovascular: See HPI, Chest Pain Gastrointestinal: See HPI; Denies Abdominal Pain; Nausea, Vomiting Genitourinary: See HPI (ESRD ON DIALYSIS) Musculoskeletal: no symptoms reported Skin: no symptoms reported Psychiatric/Neurological: No Symptoms Reported Endocrine: No Symptoms Reported Hematologic/Lymphatic: No Symptoms Reported Past Mgovjug-Mfeven-Vtbnlm Hx Patient Social History Tobacco Use?: Yes Smoking Status: Former Smoker Substance use?: Yes Substance type: Marijuana Substance frequency: Daily Alcohol Use?: Yes Immunizations Up To Date Tetanus Booster (TDap): Unknown PED Vaccines UTD: Yes Influenza Vaccine Up-to-Date: Yes; Up-to-Date Seasonal Allergies Seasonal Allergies: No Past Medical History Surgeries: Yes Cardiac, Coronary Stent, Dialysis, Gallbladder, Nephrectomy, Vascular Surgery Respiratory: No Cardiac: Yes (CARDIAC CATHS--STENTS X 3 --LAST CATH 08/04/16; CHF/FLUID OVERLOAD) Chronic Edema/Swelling, Coronary Artery Disease, High Cholesterol, Hypertension Neurological: Yes (PERIPHERAL NEUROPATHY) Neuropathy Reproductive Disorders: No Sexually Transmitted Disease: No HIV/AIDS: No Genitourinary: Yes (DIALYSIS M-W-F) Kidney Stones, Renal Failure Gastrointestinal: Yes Gastroesophageal Reflux, Polyps, Gall Bladder Disease Musculoskeletal: Yes (CHRONIC KNEE PAIN, ANKLE PAIN, FOOT PAIN ; PSEUDO GOUT ) Gout Endocrine: Yes Diabetes, Non-Insulin dep HEENT: No (GLASSES) Loss of Vision: Denies Hearing Impairment: Denies Cancer: Yes Kidney Did You Recieve Any Treatments: Yes What Type of Treatment Did You: Surgical Intervention Psychosocial: Yes Anxiety Integumentary: No Blood Disorders: Yes (CHRONIC ANEMIA) Adverse Reaction/Blood Tranf: No (N/A) Family Medical History Chest pain 03 MOTHER Family history: Arthritis 03 MOTHER Family history: Diabetes mellitus 03 MOTHER 09 BROTHER Family history: Gastrointestinal disease 03 MOTHER 09 BROTHER Family history: Thyroid disorder 03 MOTHER Headache 03 MOTHER Hypercholesterolemia 03 FATHER 03 MOTHER 09 BROTHER Myocardial infarction 03 FATHER 03 MOTHER No Family History of: Abdominal aortic aneurysm [place]'s disease Alcoholism Aphasia Cancer Cancer of colon Cataract Congenital heart disease Congestive heart failure Cystic fibrosis Dementia Dysphagia Family history: Allergy Family history: Alzheimer's disease Family history: Asthma Family history: Breast disease Family history: Cardiovascular disease Family history: Coronary thrombosis Family history: Glaucoma Family history: Hypertension Family history: Osteoporosis Hearing loss Heart disease Hereditary disease History of - anemia History of - disorder History of - respiratory disease History of drug abuse Human immunodeficiency virus (HIV) seropositivity Kidney disease Malignant neoplasm of lung Parkinson's disease Prostate cancer Psychotic disorder Seizure disorder Stroke Tuberculosis Visual impairment SOCIAL HISTORY: -SMOKED 1 PPD, QUIT 2019 -[facility]OH--USED TO DRINK, BUT QUIT -DRUGS--SMOKES MARIJUANA DAILY. PAST SURGICAL HISTORY; -"GROWTH UNDER ABDOMEN" REMOVED--BENIGN, PER PT - URETERAL STENTS -LEFT NEPHRECTOMY 2020 FOR RENAL CANCER. -MULTIPLE CARDIAC CATHS--STENTS X 3--MULTIPLE STENTS TO LAD AND RCA -RIGHT ARM AV DIALYSIS GRAFT/FISTULA -10/31/19--COLONOSCOPY BY DR. GARNETT: Procedure Performed/Findings colonoscopy c hot biospy polypectomy and cold biopsy anorectal mucosal change -08/04/2016-MOST RECENT CARDIAC CATH BY DR. BOWMAN -STRESS TEST 01/19/[address] BOWMAN: 1. Patient tolerated Lexiscan well 2. Patchy uptake, the IV line was infiltrated during the injection of radioisotope. Overall there is a fixed defect at the basal to mid anterior wall and basal to mid inferior wall. No significant ischemia was noted 3. Prominent left ventricle with diffuse left ventricular hypokinesia, ejection fraction 34% Physical Exam Vital Signs Vital Signs - First Documented 05/27/22 00:09 Temp 36.7 Pulse 80 Resp 20 B/P (MAP) 160/79 (106) Capillary Refill : Less Than 3 Seconds Height, Weight, BMI Height: 6'1.00" Weight: 278lbs. 6.0oz. 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 Skin: Normal Color, Warm/Dry Progress/Results/Core Measures Results/Orders Lab Results Laboratory Tests Test 05/27/22 00:15 Range/Units White Blood Count 7.5 4.3-11.0 10^3/uL Red Blood Count 2.96 L 4.30-5.52 10^6/uL Hemoglobin 8.7 L 13.3-17.7 g/dL Hematocrit 27 L 40-54 % Mean Corpuscular Volume 92 80-99 fL Mean Corpuscular Hemoglobin 29 25-34 pg Mean Corpuscular Hemoglobin Concent 32 32-36 g/dL Red Cell Distribution Width 17.3 H 10.0-14.5 % Platelet Count 138 130-400 10^3/uL Mean Platelet Volume 8.9 L 9.0-12.2 fL Immature Granulocyte % (Auto) 0 % Neutrophils (%) (Auto) 71 42-75 % Lymphocytes (%) (Auto) 20 12-44 % Monocytes (%) (Auto) 6 0-12 % Eosinophils (%) (Auto) 2 0-10 % Basophils (%) (Auto) 1 0-10 % Neutrophils # (Auto) 5.3 1.8-7.8 10^3/uL Lymphocytes # (Auto) 1.5 1.0-4.0 10^3/uL Monocytes # (Auto) 0.4 0.0-1.0 10^3/uL Eosinophils # (Auto) 0.2 0.0-0.3 10^3/uL Basophils # (Auto) 0.1 0.0-0.1 10^3/uL Immature Granulocyte # (Auto) 0.0 0.0-0.1 10^3/uL Prothrombin Time 14.2 12.2-14.7 SEC INR Comment 1.0 0.8-1.4 Activated Partial Thromboplast Time 38 H 24-35 SEC D-Dimer 0.45 0.00-0.49 UG/ML Sodium Level 143 135-145 MMOL/L Potassium Level 3.8 3.6-5.0 MMOL/L Chloride Level 98 98-107 MMOL/L Carbon Dioxide Level 29 21-32 MMOL/L Anion Gap 16 H 5-14 MMOL/L Blood Urea Nitrogen 18 7-18 MG/DL Creatinine 8.92 H 0.60-1.30 MG/DL Estimat Glomerular Filtration Rate 6 BUN/Creatinine Ratio 2 Glucose Level 115 H 70-105 MG/DL Calcium Level 10.4 H 8.5-10.1 MG/DL Corrected Calcium 10.3 H 8.5-10.1 MG/DL Magnesium Level 2.4 1.6-2.4 MG/DL Total Bilirubin 0.4 0.1-1.0 MG/DL Aspartate Amino Transf (AST/SGOT) 18 5-34 U/L Alanine Aminotransferase (ALT/SGPT) 15 0-55 U/L Alkaline Phosphatase 49 40-136 U/L Total Creatine Kinase 271 H 30-200 U/L Creatine Kinase MB 1.8 <6.6 NG/ML Myoglobin 632.8 H 10.0-92.0 NG/ML Troponin I 0.184 H <0.028 NG/ML B-Type Natriuretic Peptide 236.6 H <100.0 PG/ML Total Protein 8.3 H 6.4-8.2 GM/DL Albumin 4.1 3.2-4.5 GM/DL Amylase Level 404 H 25-125 U/L Lipase 83 H 8-78 U/L My Orders Orders - ANGELIA CHAMORRO DO Ekg Tracing (05/27/22 00:04) Cbc With Automated Diff (05/27/22 00:04) Magnesium (05/27/22 00:04) Chest 1 View, Ap/Pa Only (05/27/22 00:04) Ekg Tracing (05/27/22 00:04) Comprehensive Metabolic Panel (05/27/22 00:04) Myoglobin Serum (05/27/22 00:04) Protime With Inr (05/27/22 00:04) Partial Thromboplastin Time (05/27/22 00:04) O2 (05/27/22 00:04) Monitor-Rhythm Ecg Trace Only (05/27/22 00:04) Ed Iv/Invasive Line Start (05/27/22 00:04) Creatine Kinase (05/27/22 00:04) Creatine Kinase Mb (05/27/22 00:04) Lipase (05/27/22 00:04) Amylase (05/27/22 00:04) Bnp Jovana (05/27/22 00:04) Fibrin Degradation Products (05/27/22 00:04) Troponin I Barber (05/27/22 00:04) Nitroglycerin 0.4 Mg Btl 25's (Nitrostat (05/27/22 00:15) Aspirin Chewable Tablet (Baby Aspirin Ch (05/27/22 00:15) Pantoprazole Injection (Protonix Injecti (05/27/22 00:30) Clopidogrel Tablet (Plavix Tablet) (05/27/22 01:45) Metoprolol Succinate (Xl) Tab (Toprol Xl (05/27/22 01:45) Medications Given in ED Current Medications Medications Dose Ordered Sig/Augusto Route Start Time Stop Time Status Last Admin Dose Admin Aspirin 324 mg ONCE ONCE PO 05/27/22 00:15 05/27/22 00:16 DC 05/27/22 00:20 324 MG Clopidogrel Bisulfate 75 mg ONCE ONCE PO 05/27/22 01:45 05/27/22 01:46 DC 05/27/22 01:45 75 MG Nitroglycerin 0.4 mg UD PRN SL 05/27/22 00:15 05/27/22 00:20 0.4 MG Pantoprazole 40 mg ONCE ONCE IV 05/27/22 00:30 05/27/22 00:31 DC 05/27/22 00:23 40 MG Vital Signs/I&O 05/27/22 00:09 Temp 36.7 Pulse 80 Resp 20 B/P (MAP) 160/79 (106) Blood Pressure Mean: 106 Progress Progress Note : Progress Note GIVEN: -ASPIRIN -NTG X 1--IMMEDIATE RELIEF OF PAIN -PROTONIX UNEVENTFUL ER STAY NO PAIN OR ANY OTHER SYMPTOMS FOR REMAINDER OF ER STAY. PT SLEPT / RESTED QUIETLY FOR REMAINDER OF ER HIEN VITALS STABLE COMPLEX MANAGEMENT DUE TO MULTIPLE CO-MORBIDITIES INCLUDING: -EVIDENCE OF NSTEMI WITH ELEVATED TROPONIN -HX OF CAD WITH STENTS X 3 -HX OF CHF -ESRD ON DIALYSIS -NIDDM -HTN -CHRONIC ANEMIA REVIEWED PRIOR RECORDS INCLUDING ER VISITS, ADMITS/H&P'S/CONSULTS/DISCHARGE SUMMARIES, TESTS/PROCEDURES. DISCUSSED TESTS, NEED FOR ADMIT AND PT AGREES TO PLAN. Initial ECG Impression Date: May 27, 2022 Initial ECG Impression Time: 00:09 Initial ECG Rate: 83 Initial ECG Rhythm: Normal Sinus Initial ECG Intervals MN 162 QRS 99 QT/QTC 369/409 Initial ECG Impression: Nonspecific Changes Comment NO SIGNIFICANT CHANGE FROM PREVIOUS INTERPRETED BY ME Diagnostic Imaging Comments CXR--NO ACUTE PROCESS, PENDING RADIOLOGIST REVIEW Reviewed: Reviewed by Me Departure Communication (Admissions) 129/131--PAGED/SPOKE WITH DR. ADAIR, ACCEPTS PT FOR ADMIT/CONSULT GRACIE IN AM. ORDERS NOTED. 138--SPOKE WITH DR. LA, HOSPITALIST FOR [facility] [place], ACCEPTS PT FOR ADMIT. Impression Primary Impression: NSTEMI (non-ST elevated myocardial infarction) Additional Impressions: Chest pain Gastroesophageal reflux disease ESRD on dialysis HTN (hypertension) NIDDM HX OF CHF Hyperlipidemia Chronic anemia Disposition: ADMITTED INPATIENT Condition: Improved Admissions Decision to Admit Reason: Admit from ER (General) Decision to Admit/Date: May 27, 2022 Time/Decision to Admit Time: 01:35 Departure-Patient Inst. Referrals: [facility] (PCP) Primary Care Physician SIMON STARK APRN (Family) Primary Care Physician ANGELIA CHAMORRO DO May 27, 2022 00:29
[2022-05-27] MEDS ORDERED: PANTOPRAZOLE 40 MG (PROTONIX) VIAL IV ONE (00:30)
[2022-05-27 00:39] LABS: ALBUMIN 4.1 GM/DL (3.2-4.5); POTASSIUM 3.8 MMOL/L (3.6-5.0)
[2022-05-27 00:40] LABS: CALCIUM 10.4 MG/DL (8.5-10.1)
[2022-05-27 00:42] LABS: TOTAL PROTEIN 8.3 GM/DL (6.4-8.2)
[2022-05-27 00:43] LABS: BILIRUBIN,TOTAL 0.4 MG/DL (0.1-1.0)
[2022-05-27 00:45] LABS: CREATININE SERUM 8.92 MG/DL (0.60-1.30)
[2022-05-27 00:48] LABS: MAGNESIUM 2.4 MG/DL (1.6-2.4); PROTHROMBIN TIME PATIENT 14.2 SEC (12.2-14.7)
[2022-05-27 00:56] LABS: CREATINE KINASE MB 1.8 NG/ML (<6.6)
[2022-05-27] MEDS ORDERED: CLOPIDOGREL 75 MG (PLAVIX) TABLET PO ONE (01:45)
[2022-05-27] MEDS ORDERED: meTOproloL SUCCINATE 50 MG (TOPROL XL) TAB PO SCH ×2 (01:45→09:00)
[2022-05-27] MEDS ORDERED: morphine INJ 4 MG/ML 1 ML (VIAL/SYRINGE) IV PRN (02:30)
[2022-05-27] MEDS ORDERED: ONDANSETRON 4 MG/2 ML (SDV) Z0FRAN IV PRN (02:30)
[2022-05-27] MEDS ORDERED: CATHETER FLUSH 10 ML SYR IVP PRN (02:30)
--- NOTE | 2022-05-27 03:22 | Tele-ICU Progress Note ---
Progress Note 56M with ESRD last HD tue (day of presentation), renal ca, gout, DM presented with chest pain. Reports pain is intermittent. Occurs while lying flat, burning sensation followed by SOB and vomiting. Has been every night since Tuesday. In ED had 8.5/10 pain, immediately relieved with NTG x1 and did not recur. Admitted to ICU with cardiology consult. - NSTEMI: troponin 0.184, not yet repeated. Cardiology managing. On ASA and plavix. Noted to have negative stress 01/19. - ESRD - DM: insulin sliding scale Focused Exam Height, Weight, BMI Height: 6'1.00" Weight: 278lbs. 6.0oz. 126.379206wc; 32.89 BMI Method:Stated MARSHALL TRAMMELL MD May 27, 2022 03:22
--- NOTE | 2022-05-27 05:31 | Diagnostic Imaging Report ---
INDICATION: Chest pain COMPARISON: 09/02/2021 FINDINGS: Single frontal view of the chest demonstrates normal heart size and pulmonary vascularity. The lungs are well aerated and clear. No large pleural effusion or pneumothorax is seen. The visualized osseous structures show no acute abnormalities. IMPRESSION: 1. No acute cardiopulmonary process. Dictated by: Dictated on workstation # [id number]
[2022-05-27 05:41] LABS: BASOPHILS # (AUTO) 0.1 10^3/uL (0.0-0.1); BASOPHILS % (AUTO) 1 % (0-10); EOSINOPHILS # (AUTO) 0.1 10^3/uL (0.0-0.3); EOSINOPHILS % (AUTO) 2 % (0-10); HEMATOCRIT 25 % (40-54); HEMOGLOBIN 7.9 g/dL (13.3-17.7); LYMPHOCYTES # (AUTO) 1.4 10^3/uL (1.0-4.0); LYMPHOCYTES % (AUTO) 19 % (12-44); MEAN CORPUSCULAR HEMOGLOBIN 29 pg (25-34); MEAN CORPUSCULAR HGB CONC 32 g/dL (32-36); MEAN CORPUSCULAR VOLUME 92 fL (80-99); MEAN PLATELET VOLUME 9.7 fL (9.0-12.2); MONOCYTES # (AUTO) 0.5 10^3/uL (0.0-1.0); MONOCYTES % (AUTO) 6 % (0-12); NEUTROPHILS # (AUTO) 5.5 10^3/uL (1.8-7.8); NEUTROPHILS % (AUTO) 72 % (42-75); PLATELET COUNT 144 10^3/uL (130-400); WHITE BLOOD COUNT 7.6 10^3/uL (4.3-11.0)
[2022-05-27 05:51] LABS: POTASSIUM 3.9 MMOL/L (3.6-5.0)
[2022-05-27 05:53] LABS: TOTAL PROTEIN 7.5 GM/DL (6.4-8.2)
[2022-05-27 05:55] LABS: BILIRUBIN,TOTAL 0.4 MG/DL (0.1-1.0)
[2022-05-27 05:57] LABS: CREATININE SERUM 9.36 MG/DL (0.60-1.30); PHOSPHORUS 4.8 MG/DL (2.3-4.7)
[2022-05-27 06:00] LABS: MAGNESIUM 2.3 MG/DL (1.6-2.4)
[2022-05-27] MEDS: inSUlin ASPART (NovoLOG) 1 UNIT/0.01 ML (CHARGE PER UNIT) SC SCH ×3 (07:41→16:34)
[2022-05-27] MEDS: CATHETER FLUSH 10 ML SYR IVP SCH ×2 (07:41→14:40)
[2022-05-27] MEDS ORDERED: KCL 20 MEQ TAB (K-DUR) PO ONE (07:45)
[2022-05-27] MEDS ORDERED: NS IV 500 ML 500 ML IV PRN (07:45)
[2022-05-27 08:17] LABS: ALBUMIN 3.6 GM/DL (3.2-4.5)
--- NOTE | 2022-05-27 08:27 | Consultation-Cardiology ---
HPI-Cardiology Cardiology Consultation Date of Consultation 05/27/22 Date of Admission Time Seen by Provider: 08:29 Indication: Chest pain, NSTEMI HPI Patient is a 56 y/o male with history of CAD with multiple interventions in the past, CHF, ESRD on HD, HTN. Presented to the ER with complaints of increased chest pain over the past 4-5 days. Associated dyspnea and orthopnea. Denies any active chest pain. Was given SL NG in ER with relief of CP. Home Medications & Allergies Allergies: Coded Allergies: No Known Drug Allergies (Unverified , 10/24/19) Home Medication List Reviewed: Yes UCN-Yqzkke-Bxrgvv Hx Patient Social History Drug of Choice: THC Smoking Status: Former Smoker Type Used: Cigarettes 2nd Hand Smoke Exposure: Yes Recent Hopitalizations: No Have you traveled recently?: No Alcohol Use?: Yes Substance type: Marijuana Immunizations Up To Date Tetanus Booster (TDap): Unknown Date of Influenza Vaccine: Dec 04, 2018 Past Medical History CAD, CHF, ESRD, HTN Family Medical History Family History: Chest pain 03 MOTHER Family history: Arthritis 03 MOTHER Family history: Diabetes mellitus 03 MOTHER 09 BROTHER Family history: Gastrointestinal disease 03 MOTHER 09 BROTHER Family history: Thyroid disorder 03 MOTHER Headache 03 MOTHER Hypercholesterolemia 03 FATHER 03 MOTHER 09 BROTHER Myocardial infarction 03 FATHER 03 MOTHER No Family History of: Abdominal aortic aneurysm [place]'s disease Alcoholism Aphasia Cancer Cancer of colon Cataract Congenital heart disease Congestive heart failure Cystic fibrosis Dementia Dysphagia Family history: Allergy Family history: Alzheimer's disease Family history: Asthma Family history: Breast disease Family history: Cardiovascular disease Family history: Coronary thrombosis Family history: Glaucoma Family history: Hypertension Family history: Osteoporosis Hearing loss Heart disease Hereditary disease History of - anemia History of - disorder History of - respiratory disease History of drug abuse Human immunodeficiency virus (HIV) seropositivity Kidney disease Malignant neoplasm of lung Parkinson's disease Prostate cancer Psychotic disorder Seizure disorder Stroke Tuberculosis Visual impairment Review of Systems-General Review of Systems Constitutional: no symptoms reported, see HPI; No diaphoresis Respiratory: see HPI, dyspnea on exertion, orthopnea, short of breath Cardiovascular: see HPI, chest pain; No edema; Hx of Intervention; No syncope; vascular heart diseas Gastrointestinal: no symptoms reported, see HPI; No abdominal pain Genitourinary: no symptoms reported Musculoskeletal: no symptoms reported Skin: no symptoms reported Psychiatric/Neurological: No Symptoms Reported Reviewed Test Results Reviewed Test Results Lab Laboratory Tests 05/27/22 00:15: White Blood Count 7.5, Red Blood Count 2.96L, Hemoglobin 8.7L, Hematocrit 27L, Mean Corpuscular Volume 92, Mean Corpuscular Hemoglobin 29, Mean Corpuscular Hemoglobin Concent 32, Red Cell Distribution Width 17.3H, Platelet Count 138, Mean Platelet Volume 8.9L, Immature Granulocyte % (Auto) 0, Neutrophils (%) (Auto) 71, Lymphocytes (%) (Auto) 20, Monocytes (%) (Auto) 6, Eosinophils (%) (Auto) 2, Basophils (%) (Auto) 1, Neutrophils # (Auto) 5.3, Lymphocytes # (Auto) 1.5, Monocytes # (Auto) 0.4, Eosinophils # (Auto) 0.2, Basophils # (Auto) 0.1, Immature Granulocyte # (Auto) 0.0, Prothrombin Time 14.2, INR Comment 1.0, Acti vated Partial Thromboplast Time 38H, D-Dimer 0.45, Sodium Level 143, Potassium Level 3.8, Chloride Level 98, Carbon Dioxide Level 29, Anion Gap 16H, Blood Urea Nitrogen 18, Creatinine 8.92H, Estimat Glomerular Filtration Rate 6, BUN/Creatinine Ratio 2, Glucose Level 115H, Calcium Level 10.4H, Corrected Calcium 10.3H, Magnesium Level 2.4, Total Bilirubin 0.4, Aspartate Amino Transf (AST/SGOT) 18, Alanine Aminotransferase (ALT/SGPT) 15, Alkaline Phosphatase 49, Total Creatine Kinase 271H, Creatine Kinase MB 1.8, Myoglobin 632.8H, Troponin I 0.184H, B-Type Natriuretic Peptide 236.6H, Total Protein 8.3H, Albumin 4.1, Amylase Level 404H, Lipase 83H 05/27/22 04:09: White Blood Count 7.6, Red Blood Count 2.74L, Hemoglobin 7.9L, Hematocrit 25L, Mean Corpuscular Volume 92, Mean Corpuscular Hemoglobin 29, Mean Corpuscular Hem oglobin Concent 32, Red Cell Distribution Width 17.3H, Platelet Count 144, Mean Platelet Volume 9.7, Immature Granulocyte % (Auto) 1, Neutrophils (%) (Auto) 72, Lymphocytes (%) (Auto) 19, Monocytes (%) (Auto) 6, Eosinophils (%) (Auto) 2, Basophils (%) (Auto) 1, Neutrophils # (Auto) 5.5, Lymphocytes # (Auto) 1.4, Monocytes # (Auto) 0.5, Eosinophils # (Auto) 0.1, Basophils # (Auto) 0.1, Immature Granulocyte # (Auto) 0.0, Sodium Level 143, Potassium Level 3.9, Chloride Level 99, Carbon Dioxide Level 29, Anion Gap 15H, Blood Urea Nitrogen 19H, Creatinine 9.36#H, Estimat Glomerular Filtration Rate 6, BUN/Creatinine Ratio 2, Glucose Level 84, Calcium Level 10.0, Corrected Calcium 10.3H, Magnesium Level 2.3, Total Bilirubin 0.4, Aspartate Amino Transf (AST/SGOT) 17, Alanine Aminotransferase (ALT/SGPT) 13, Alkaline Phosphatase 42, Troponin I 0.213H, Total Protein 7.5, Albumin 3.6, Phosphorus Level 4.8H, Triglycerides Level 171H, Cholesterol Level 132, LDL Cholesterol Direct 62, VLDL Cholesterol 34, HDL Cholesterol 29L ECG Impression ECG Initial ECG Rhythm: Normal Sinus Physical Exam Physical Exam Vital Signs Vital Signs - First Documented 05/27/22 05/27/22 05/27/22 00:09 02:15 07:40 Temp 36.7 Pulse 80 Resp 20 B/P (MAP) 160/79 (106) Pulse Ox 94 O2 Delivery Room Air O2 Flow Rate 2.00 Capillary Refill : Less Than 3 Seconds Height, Weight, BMI Height: 6'1.00" Weight: 278lbs. 6.0oz. 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 Initial trop 0.184, repeat trop 0.213. Recommend [facility]. Will arrange for transfer to [place] as patient will need dialysis after cardiac catheterization Discussed with Dr. Aguilar, recommend transferring to a tertiary care center Coronary artery disease, multiple interventions in the past 2009, Promus Premier stent to the LAD using 3 oh by 23 mm. 2016, angioplasty to the LAD stent 2016, Alpine stenting to the right coronary artery 3.5 x 23 mm Stress test done in December 2021 with patchy uptake, there is a fixed defect at the basal to mid anterior wall and basal to mid inferior wall but no significant ischemia. Stress score 6, SDS 0, gated images showed diffuse hypokinesia with ejection fraction 34% 2D echo done in December 2021 with severe LVH, EF 60 to 65%, grade 3 diastolic dysfunction, left atrial dilatation, mild mitral regurgitation, mild aortic regurgitation, aortic valve sclerosis, moderate tricuspid regurgitation, PA pressure 60 to 65 mmHg Cannot tolerate MARISOL inhibitor and/or ARB Congestive heart failure, severe left ventricular hypertrophy with advanced diastolic dysfunction stage III. Cannot tolerate MARISOL inhibitor and/or ARB Maintained on beta-blockers, Imdur Hypertension, restart home blood pressure medication and continue to monitor Hyperlipidemia, maintained on Lipitor 40 mg daily. Mild bilateral carotid stenosis, ultrasound was done in September 2021. Continue to monitor End-stage kidney disease maintained on hemodialysis [facility], history of nephrectomy. History of tobaccoism, stopped smoking in 2019. Acute pancreatitis, history of pancreatitis, monitored and followed by primary care physician Thank you for allowing us to participate in the management of Mr. Silverman. This is Denisa Mckinney PA-C, as a scribe for Dr. Valadez. Patient was seen and evaluated with Denisa, I interviewed and examined the patient. Patient was admitted with chest pain, elevation in troponin, non-ST elevation myocardial infarction He is in acute on chronic renal failure, worsening creatinine level, he has been maintained on dialysis. Will require cardiac catheterization possible PTCA I discussed with Dr. Aguilar the management plan recommended transferring him to a tertiary care center for the procedure Continue to monitor blood pressure and lipids Maintained on anticoagulation. Had elevation in amylase and lipase, patient has history of chronic pancreatitis with worsening amylase and lipase level. I made few modification to the note using Italic font Clinical Quality Measures AMI/AHF: ASA po Prior to arrival: No DENISA FAJARDO May 27, 2022 08:27 ERICA VALADEZ MD May 27, 2022 11:08
[2022-05-27] MEDS ORDERED: ASPIRIN E.C. 81 MG (ECOTRIN) TAB PO SCH (09:00)
[2022-05-27] MEDS ORDERED: CLOPIDOGREL 75 MG (PLAVIX) TABLET PO SCH (09:00)
[2022-05-27] MEDS ORDERED: PANTOPRAZOLE 40 MG (PROTONIX) VIAL IV SCH (09:00)
--- NOTE | 2022-05-27 10:26 | History & Physical ---
HPI History of Present Illness: Chest pain x 4 days, burning feeling, pressure, heaviness, shortness of breath. Occurring when he laid down to go to sleep. Has not had similar episodes in past. Admits nausea, vomiting, sweating. No radiation of pain. Source: patient Date seen by provider: May 27, 2022 Time Seen by Provider: 10:24 Attending Physician [facility] PCP Admitting Physician: Parisa Aguilar MD Attending Physician: Parisa Aguilar MD Consult Date of Admission May 27, 2022 at 01:57 Home Medications Home Medications Reviewed patient Home Medication Reconciliation performed by pharmacy medication reconciliations electrical controls technician and/or nursing. Patients Allergies have been reviewed. Allergies Coded Allergies: No Known Drug Allergies (Unverified , 10/24/19) INX-Dtnzvj-Tbkyiv Hx Patient Social History Drug of Choice: THC Smoking Status: Former Smoker (quit in 2019, smoked for 25 years, 1/2 ppd) 2nd Hand Smoke Exposure: Yes Recent Hopitalizations: No Alcohol Use?: Yes (reports rare use, once every 6-7 months; history of regular use in past about a case every 4 days) Substance type: Marijuana (last use about 05/14/22) Have you traveled recently?: No Immunizations Up To Date Tetanus Booster (TDap): Unknown Influenza Vaccine Up-to-Date: Yes; Up-to-Date First/Initial COVID19 Vaccinat: None Past Medical History PMHx: HTN DMII End stage renal disease on dialysis HLD Coronary artery disease with stenting CHF Renal cancer s/p left kidney resection Pancreatitis SurgHx: Coronary artery stenting and ballooning x 3 Excision of abdominal mass Nephrolithiasis treatment Left nephrectomy Cholecystectomy Family Medical History Other Significan Family Hx: Family History: Chest pain 03 MOTHER Family history: Arthritis 03 MOTHER Family history: Diabetes mellitus 03 MOTHER 09 BROTHER Family history: Gastrointestinal disease 03 MOTHER 09 BROTHER Family history: Thyroid disorder 03 MOTHER Headache 03 MOTHER Hypercholesterolemia 03 FATHER 03 MOTHER 09 BROTHER Myocardial infarction 03 FATHER 03 MOTHER No Family History of: Abdominal aortic aneurysm Niraj's disease Alcoholism Aphasia Cancer Cancer of colon Cataract Congenital heart disease Congestive heart failure Cystic fibrosis Dementia Dysphagia Family history: Allergy Family history: Alzheimer's disease Family history: Asthma Family history: Breast disease Family history: Cardiovascular disease Family history: Coronary thrombosis Family history: Glaucoma Family history: Hypertension Family history: Osteoporosis Hearing loss Heart disease Hereditary disease History of - anemia History of - disorder History of - respiratory disease History of drug abuse Human immunodeficiency virus (HIV) seropositivity Kidney disease Malignant neoplasm of lung Parkinson's disease Prostate cancer Psychotic disorder Seizure disorder Stroke Tuberculosis Visual impairment Review of Systems (CHC) Constitutional: No fever EENTM: No nose congestion, No throat pain Respiratory: cough ("little bit"), short of breath Cardiovascular: chest pain Gastrointestinal: No abdominal pain, No constipation, No diarrhea; nausea, vomiting Genitourinary: No dysuria Musculoskeletal: No joint pain; muscle pain (chronic) Skin: No rash Psychiatric/Neurological: Denies Anxiety, Denies Depressed Reviewed Test Results Reviewed Test Results Lab Laboratory Tests Test 05/27/22 00:15 05/27/22 04:09 Range/Units White Blood Count 7.5 7.6 4.3-11.0 10^3/uL Red Blood Count 2.96 L 2.74 L 4.30-5.52 10^6/uL Hemoglobin 8.7 L 7.9 L 13.3-17.7 g/dL Hematocrit 27 L 25 L 40-54 % Mean Corpuscular Volume 92 92 80-99 fL Mean Corpuscular Hemoglobin 29 29 25-34 pg Mean Corpuscular Hemoglobin Concent 32 32 32-36 g/dL Red Cell Distribution Width 17.3 H 17.3 H 10.0-14.5 % Platelet Count 138 144 130-400 10^3/uL Mean Platelet Volume 8.9 L 9.7 9.0-12.2 fL Immature Granulocyte % (Auto) 0 1 % Neutrophils (%) (Auto) 71 72 42-75 % Lymphocytes (%) (Auto) 20 19 12-44 % Monocytes (%) (Auto) 6 6 0-12 % Eosinophils (%) (Auto) 2 2 0-10 % Basophils (%) (Auto) 1 1 0-10 % Neutrophils # (Auto) 5.3 5.5 1.8-7.8 10^3/uL Lymphocytes # (Auto) 1.5 1.4 1.0-4.0 10^3/uL Monocytes # (Auto) 0.4 0.5 0.0-1.0 10^3/uL Eosinophils # (Auto) 0.2 0.1 0.0-0.3 10^3/uL Basophils # (Auto) 0.1 0.1 0.0-0.1 10^3/uL Immature Granulocyte # (Auto) 0.0 0.0 0.0-0.1 10^3/uL Prothrombin Time 14.2 12.2-14.7 SEC INR Comment 1.0 0.8-1.4 Activated Partial Thromboplast Time 38 H 24-35 SEC D-Dimer 0.45 0.00-0.49 UG/ML Sodium Level 143 143 135-145 MMOL/L Potassium Level 3.8 3.9 3.6-5.0 MMOL/L Chloride Level 98 99 98-107 MMOL/L Carbon Dioxide Level 29 29 21-32 MMOL/L Anion Gap 16 H 15 H 5-14 MMOL/L Blood Urea Nitrogen 18 19 H 7-18 MG/DL Creatinine 8.92 H 9.36 #H 0.60-1.30 MG/DL Estimat Glomerular Filtration Rate 6 6 BUN/Creatinine Ratio 2 2 Glucose Level 115 H 84 70-105 MG/DL Calcium Level 10.4 H 10.0 8.5-10.1 MG/DL Corrected Calcium 10.3 H 10.3 H 8.5-10.1 MG/DL Magnesium Level 2.4 2.3 1.6-2.4 MG/DL Total Bilirubin 0.4 0.4 0.1-1.0 MG/DL Aspartate Amino Transf (AST/SGOT) 18 17 5-34 U/L Alanine Aminotransferase (ALT/SGPT) 15 13 0-55 U/L Alkaline Phosphatase 49 42 40-136 U/L Total Creatine Kinase 271 H 30-200 U/L Creatine Kinase MB 1.8 <6.6 NG/ML Myoglobin 632.8 H 10.0-92.0 NG/ML Troponin I 0.184 H 0.213 H <0.028 NG/ML B-Type Natriuretic Peptide 236.6 H <100.0 PG/ML Total Protein 8.3 H 7.5 6.4-8.2 GM/DL Albumin 4.1 3.6 3.2-4.5 GM/DL Amylase Level 404 H 25-125 U/L Lipase 83 H 8-78 U/L Phosphorus Level 4.8 H 2.3-4.7 MG/DL Triglycerides Level 171 H <150 MG/DL Cholesterol Level 132 < 200 MG/DL LDL Cholesterol Direct 62 1-129 MG/DL VLDL Cholesterol 34 5-40 MG/DL HDL Cholesterol 29 L 40-60 MG/DL Radiology CXR 05/27 no acute findings Physical Exam-(CHC) Physical Exam Vital Signs VS - Last 72 Hours, by Label 05/27/22 05/27/22 05/27/22 05/27/22 00:09 02:15 02:17 02:30 Temp 36.7 36.7 Pulse 80 75 74 75 Resp 20 15 15 B/P (MAP) 160/79 (106) 170/86 (114) 152/71 (98) Pulse Ox 94 94 O2 Delivery Room Air Room Air 05/27/22 05/27/22 05/27/22 05/27/22 02:45 03:00 04:00 07:00 Pulse 71 68 64 Resp 26 B/P (MAP) 139/69 (92) 140/72 (94) 131/60 (83) Pulse Ox 96 97 96 94 O2 Delivery Room Air Room Air Room Air Room Air 05/27/22 05/27/22 05/27/22 05/27/22 07:08 07:40 08:00 08:35 Pulse 65 73 B/P (MAP) 144/78 (100) Pulse Ox 100 99 O2 Delivery Nasal Cannula Nasal Cannula Nasal Cannula O2 Flow Rate 2.00 2.00 2.00 05/27/22 05/27/22 05/27/22 05/27/22 09:00 09:15 10:00 11:00 Temp 36.8 Pulse 63 67 67 Resp 14 B/P (MAP) 142/80 (100) 151/81 (104) 148/82 (104) Pulse Ox 97 96 96 O2 Delivery Nasal Cannula Nasal Cannula Nasal Cannula O2 Flow Rate 2.00 2.00 2.00 05/27/22 05/27/22 11:29 12:15 Temp 36.3 Pulse 63 Resp 7 B/P (MAP) 120/78 (92) Pulse Ox 98 O2 Delivery Nasal Cannula O2 Flow Rate 2.00 Capillary Refill : Less Than 3 Seconds General Appearance: no apparent distress Respiratory: lungs clear, normal breath sounds Cardiovascular: regular rate, rhythm, no murmur Gastrointestinal: normal bowel sounds, soft, other (mild epigastric ttp) Neurologic/Psychiatric: alert, normal mood/affect Skin: normal color, warm/dry Assessment/Plan Assessment/Plan Admission Status: Inpatient Order (span 2 midnights) Reason for Inpatient Admission: Elevated troponin with multiple serious comorbidities (1) Chest pain Status: Acute Assessment & Plan: Possibly pancreatitis related, however has increasing troponin and significant cardiac history, see below. (2) NSTEMI (non-ST elevated myocardial infarction) Status: Acute Assessment & Plan: Troponin trending up, no ST changes on EKG. Cardiology consulted, appreciate recommendations, suspect need for cath and recommend transfer due to need for dialysis. Discussed with hospitalist at [facility] and accepted in transfer. (3) Nausea and vomiting Status: Acute Assessment & Plan: Supportive care with antiemetics, caution with fluids given ESRD (4) Pancreatitis Status: Acute Assessment & Plan: Lipase slightly elevated, pain described as chest, but does have some epigastric ttp. Pain is mild, monitor closely. Qualifiers: (5) Diabetes Status: Chronic Assessment & Plan: Sliding scale insulin Qualifiers: (6) ESRD (end stage renal disease) on dialysis Status: Chronic Assessment & Plan: Had dialysis 05/26, due again 05/28 (7) HTN (hypertension) Status: Acute (8) Chronic anemia Status: Chronic Assessment & Plan: Secondary to end stage renal disease, stable. (9) Coronary artery disease Status: Chronic Assessment & Plan: With history of LAD stent, LAD stent ballooning in 2017, RCA stent in 2017. Qualifiers: (10) History of renal carcinoma Status: Chronic (11) CHF (congestive heart failure) Status: Chronic Assessment & Plan: Stress test 12/2021 with EF in the 30s. Qualifiers: Qualified Codes: I50.22 - Chronic systolic (congestive) heart failure Clinical Quality Measures AMI/AHF: ASA po Prior to arrival: PARISA Neff MD May 27, 2022 10:26
--- NOTE | 2022-05-27 12:58 | Discharge Summary ---
Discharge Summary Hospital Course Problems/Diagnosis: (1) Chest pain Status: Acute Assessment & Plan: Possibly pancreatitis related, however has increasing troponin and significant cardiac history, see below. (2) NSTEMI (non-ST elevated myocardial infarction) Status: Acute Assessment & Plan: Troponin trending up, no ST changes on EKG. Cardiology consulted, appreciate recommendations, suspect need for cath and recommend transfer due to need for dialysis. Discussed with hospitalist at [facility] and accepted in transfer. (3) Nausea and vomiting Status: Acute (4) Pancreatitis Status: Acute Assessment & Plan: Lipase slightly elevated, pain described as chest, but does have some epigastric ttp. Tansferred to [place]. Qualifiers: (5) Diabetes Status: Chronic Assessment & Plan: Sliding scale insulin Qualifiers: (6) ESRD (end stage renal disease) on dialysis Status: Chronic Assessment & Plan: Had dialysis 05/26, due again 05/28, transferred to [place]. (7) HTN (hypertension) Status: Acute (8) Chronic anemia Status: Chronic Assessment & Plan: Secondary to end stage renal disease, stable. (9) Coronary artery disease Status: Chronic Assessment & Plan: With history of LAD stent, LAD stent ballooning in 2017, RCA stent in 2017. Qualifiers: (10) History of renal carcinoma Status: Chronic (11) CHF (congestive heart failure) Status: Chronic Assessment & Plan: Stress test 12/2021 with EF in the 30s. Qualifiers: Qualified Codes: I50.22 - Chronic systolic (congestive) heart failure Hospital Course Date of Admission: May 27, 2022 at 01:57 Admission Diagnosis : Family Physician/Provider: Irene Christopher Aprn Date of Discharge: 05/27/22 Discharge Diagnosis: See problem list Hospital Course: See problem list- admitted with chest pain, possible pancreatitis, possible NSTE [place], transferred to [facility] due to need for cath and no dialysis capabilities here. Labs and Pending Lab Test: Laboratory Tests 05/27/22 00:15: White Blood Count 7.5, Red Blood Count 2.96L, Hemoglobin 8.7L, Hematocrit 27L, Mean Corpuscular Volume 92, Mean Corpuscular Hemoglobin 29, Mean Corpuscular Hemoglobin Concent 32, Red Cell Distribution Width 17.3H, Platelet Count 138, Mean Platelet Volume 8.9L, Immature Granulocyte % (Auto) 0, Neutrophils (%) (Auto) 71, Lymphocytes (%) (Auto) 20, Monocytes (%) (Auto) 6, Eosinophils (%) (Auto) 2, Basophils (%) (Auto) 1, Neutrophils # (Auto) 5.3, Lymphocytes # (Auto) 1.5, Monocytes # (Auto) 0.4, Eosinophils # (Auto) 0.2, Basophils # (Auto) 0.1, Immature Granulocyte # (Auto) 0.0, Prothrombin Time 14.2, INR Comment 1.0, Activated Partial Thromboplast Time 38H, D-Dimer 0.45, Sodium Level 143, Potassium Level 3.8, Chloride Level 98, Carbon Dioxide Level 29, Anion Gap 16H, Blood Urea Nitrogen 18, Creatinine 8.92H, Estimat Glomerular Filtration Rate 6, BUN/Creatinine Ratio 2, Glucose Level 115H, Calcium Level 10.4H, Corrected Calcium 10.3H, Magnesium Level 2.4, Total Bilirubin 0.4, Aspartate Amino Transf (AST/SGOT) 18, Alanine Aminotransferase (ALT/SGPT) 15, Alkaline Phosphatase 49, Total Creatine Kinase 271H, Creatine Kinase MB 1.8, Myoglobin 632.8H, Troponin I 0.184H, B-Type Natriuretic Peptide 236.6H, Total Protein 8.3H, Albumin 4.1, Amylase Level 404H, Lipase 83H 05/27/22 04:09: White Blood Count 7.6, Red Blood Count 2.74L, Hemoglobin 7.9L, Hematocrit 25L, Mean Corpuscular Volume 92, Mean Corpuscular Hemoglobin 29, Mean Corpuscular Hemoglobin Concent 32, Red Cell Distribution Width 17.3H, Platelet Count 144, Mean Platelet Volume 9.7, Immature Granulocyte % (Auto) 1, Neutrophils (%) (Auto) 72, Lymphocytes (%) (Auto) 19, Monocytes (%) (Auto) 6, Eosinophils (%) (Auto) 2, Basophils (%) (Auto) 1, Neutrophils # (Auto) 5.5, Lymphocytes # (Auto) 1.4, Monocytes # (Auto) 0.5, Eosinophils # (Auto) 0.1, Basophils # (Auto) 0.1, Immature Granulocyte # (Auto) 0.0, Sodium Level 143, Potassium Level 3.9, Chloride Level 99, Carbon Dioxide Level 29, Anion Gap 15H, Blood Urea Nitrogen 19H, Creatinine 9.36#H, Estimat Glomerular Filtration Rate 6, BUN/Creatinine Ratio 2, Glucose Level 84, Calcium Level 10.0, Corrected Calcium 10.3H, Magnesium Level 2.3, Total Bilirubin 0.4, Aspartate Amino Transf (AST/SGOT) 17, Alanine Aminotransferase (ALT/SGPT) 13, Alkaline Phosphatase 42, Troponin I 0.213H, Total Protein 7.5, Albumin 3.6, Phosphorus Level 4.8H, Triglycerides Level 171H, Cholesterol Level 132, LDL Cholesterol Direct 62, VLDL Cholesterol 34, HDL Cholesterol 29L 05/27/22 11:21: Glucometer 77 Home Meds Active Reported Seroquel (Quetiapine Fumarate) 50 Mg Tablet 50 Mg PO DAILY Allopurinol 300 Mg Tablet 300 Mg PO DAILY Metoprolol Tartrate 50 Mg Tablet 50 Mg PO DAILY Metformin HCl 500 Mg Tablet 500 Mg PO DAILY Aspirin 81 Mg Tab.chew 81 Mg PO DAILY Lipitor (Atorvastatin Calcium) 10 Mg Tablet 10 Mg PO HS Assessment/Pt DC Instructions Follow up with primary within a week of discharge. Discharge Physical Examination Allergies: Coded Allergies: No Known Drug Allergies (Unverified , 10/24/19) Clinical Quality Measures AMI/AHF: ASA po Prior to arrival: PARISA Neff MD May 27, 2022 12:58
[2022-05-27] MEDS ORDERED: SITA25TA5 PO (13:24)
[2022-05-27] MEDS ORDERED: OMEP40CA6 PO (13:24)
[2022-05-27] MEDS ORDERED: ATOR40TA70 PO (13:24)
[2022-05-27] MEDS ORDERED: ISOS30TA82 PO (13:24)
[2022-05-27] MEDS ORDERED: CALC667C10 PO (13:24)
[2022-05-27] MEDS ORDERED: AMLO-251 PO (13:24)
[2022-05-27] MEDS ORDERED: TORS100T4 PO (13:24)
[2022-05-27] MEDS ORDERED: QUET50TA23 PO (13:24)
[2022-05-27] MEDS ORDERED: CHOL200052 PO (13:24)
[2022-05-27] MEDS ORDERED: MTP100TCR PO (13:24)
[2022-05-27] MEDS ORDERED: CHLO500T4 PO (13:24)
[2022-05-27 17:45] VITALS: BP 168/84
[2022-05-28] MEDS ORDERED: POTASSIUM CL 10MEQ/50ML IVPB 50 ML IV SCH (06:00)
[2022-05-28] MEDS ORDERED: MAGNESIUM 1 GM/100 ML IVPB 100 ML IV SCH (06:00)
[2022-05-28] MEDS ORDERED: KCL 20 MEQ TAB (K-DUR) PO SCH (06:00)
== END 2022-05-27 18:00 | disposition short-term general hospital (02) | DRG 438 ==
LOC: EDUNIT# 00:01 → ER 00:04 → ICU 01:57
PROVIDERS: ADMIT Family Medicine; ATTEND Family Medicine
DX: K85.90 Acute pancreatitis without necrosis or infection, unspecified (principal); I21.4 Non-ST elevation (NSTEMI) myocardial infarction; N18.6 End stage renal disease; I13.2 Hypertensive heart and chronic kidney disease with heart failure and with stage 5 chronic kidney disease, or end stage renal disease; I50.22 Chronic systolic (congestive) heart failure; E11.22 Type 2 diabetes mellitus with diabetic chronic kidney disease; I25.10 Atherosclerotic heart disease of native coronary artery without angina pectoris; E78.5 Hyperlipidemia, unspecified; M10.9 Gout, unspecified; D63.1 Anemia in chronic kidney disease; Z99.2 Dependence on renal dialysis; Z79.84 Long term (current) use of oral hypoglycemic drugs; Z79.899 Other long term (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 therapy; Z79.1 Long term (current) use of non-steroidal anti-inflammatories (NSAID); Z87.891 Personal history of nicotine dependence; Z95.5 Presence of coronary angioplasty implant and graft; Z98.890 Other specified postprocedural states; Z79.02 Long term (current) use of antithrombotics/antiplatelets; Z90.5 Acquired absence of kidney; Z85.528 Personal history of other malignant neoplasm of kidney; Z87.442 Personal history of urinary calculi; Z90.49 Acquired absence of other specified parts of digestive tract
CPT/HCPCS: 36415; 71045; 80053; 80061; 82150; 82550; 82553; 82947; 83690; 83735; 83874; 83880; 84100; 84484; 85025; 85379; 85610; 85730; 87081; 93005; 93041

== ENCOUNTER 2022-11-15 08:00 | Day surgery (SDC) | payer MEDICARE, MEDICAID ==
[~2022-11-15] VITALS: Ht 185.4 cm; Wt 101.1 kg
[2022-11-15] VITALS (9 sets, daily range): BP systolic 128–154; BP diastolic 47–85
[2022-11-15 07:28] LABS: HEMATOCRIT 34 % (40-54); HEMOGLOBIN 10.8 g/dL (13.3-17.7); MEAN CORPUSCULAR HEMOGLOBIN 30 pg (25-34); MEAN CORPUSCULAR HGB CONC 32 g/dL (32-36); MEAN CORPUSCULAR VOLUME 92 fL (80-99); MEAN PLATELET VOLUME 9.8 fL (9.0-12.2); PLATELET COUNT 173 10^3/uL (130-400); WHITE BLOOD COUNT 9.9 10^3/uL (4.3-11.0)
[2022-11-15 07:40] LABS: PROTHROMBIN TIME PATIENT 13.5 SEC (12.2-14.7)
--- NOTE | 2022-11-15 07:42 | Diagnostic Imaging Report ---
INDICATION: Chest pain. Comparison is made with prior exam of 05/27/2022. FINDINGS: The heart size, mediastinal configuration, and pulmonary vascularity are within normal limits. There is no pleural effusion, pneumothorax, or pneumonia. The osseous structures are unremarkable. IMPRESSION: No acute cardiopulmonary abnormality. Dictated by: Dictated on workstation # [id number]
[2022-11-15 07:49] LABS: ALBUMIN 3.7 GM/DL (3.2-4.5); BILIRUBIN,TOTAL 0.3 MG/DL (0.1-1.0); CALCIUM 9.1 MG/DL (8.5-10.1); CREATININE SERUM 14.2 MG/DL (0.60-1.30); TOTAL PROTEIN 7.4 GM/DL (6.4-8.2)
[2022-11-15 07:50] LABS: POTASSIUM 4.9 MMOL/L (3.6-5.0)
[~2022-11-15 08:00] MED LIST changes: +AMLO-251 PO; +ATOR40TA70 PO; +CALC667C10 PO; +CHLO500T4 PO; +CHOL200052 PO; +FEBU40TA PO; +HEParin (CATH LAB) 2,000 ML IV ONE; +ISOS30TA82 PO; +LIDOCAINE 1% INJ 20 ML VIAL ONE; +LOSA25TA41 PO; +MIDAZOLAM INJ 5 MG/5 ML VIAL ONE; +MTP100TCR PO; +NS IV 1000 ML 1,000 ML IV SCH; +NS IV 1000 ML 1,000 ML ONE; +PANT40TA52 PO; +SEVE800T7 PO; +SITA25TA5 PO; +TORS100T4 PO; +fentaNYL INJECTION 100 MCG/2 ML VIAL ONE
--- NOTE | 2022-11-15 09:01 | Cardiac Procedure Note-CS/ASA ---
Pre-Procedure Note Pre-Op Procedure Note Date of Available H&P: Nov 11, 2022 Date H&P Reviewed: Nov 15, 2022 Time H&P Reviewed: 09:01 History & Physical: H&P Reviewed, Patient Examed, No changes noted Pre-Operative Diagnosis: CAD Moderate Sedation PreProcedure Time 09:01 ASA Score 3 Airway Lungs Heart ASA score ASA 1: a normal healthy patient ASA 2: a patient with a mild systemic disease (mid diabetes, controlled hypertension, obesity ASA 3: a patient with a severe systemic disease that limits activity (angina, COPD, prior Myocardial infarction) ASA 4: a patient with an incapacitating disease that is a constant threat to life (CHF, renal failure) ASA 5: a moribund patient not expected to survive 24 hrs. (ruptured aneurysm) ASA 6: a declared brain- patient whose organs are being harvested. For emergent operations, add the letter E after the classification Mallampati Classification Grade 3 Sedation Plan Analgesia, Amnesia, Plan communicated to team members, Discussed options with patient/fam, Discussed risks with patient/fam The patient is an appropriate candidate to undergo the planned procedure, sedation, and anesthesia. The patient immediately re-assessed prior to indication. ERICA BOWMAN MD Nov 15, 2022 09:01
--- NOTE | 2022-11-15 09:48 | Discharge Inst-Post CATH ---
Discharge Inst-CATH/EP Problems Reviewed?: Yes Post Cardiac Cath/EP D/C Inst Follow Up/Plan Appointment with Dr. Valadez's office in 2 to 4 weeks <b>CARDIAC CATH/EP PROCEDURE DISCHARGE INSTRUCTIONS</b> ACTIVITY * Go Home directly and rest. * Limit activity of the leg (or wrist if it was used) for 7 days including aer obics, swimming, jogging, bicycling, etc. * Restrict stair-climbing for 7 days if possible, if not, climb up with your non-cath leg, then bring together on the same step. * Avoid lifting, pushing, pulling or excessive movement of the affected extremi ty for 7 days. * Customary sexual activity may be resumed after 2 days-use caution not to use a position that strains or causes pain to the affected extremity. * No driving for 24 hours. * NO SMOKING. * Avoid straining for bowel movements for 7 days. * Gentle walking on level ground is allowed. * Returning to work will depend on the type of procedure and the results. Your doctor will discuss this with you. CALL YOUR DOCTOR FOR ANY OF THE FOLLOWING: *If bleeding from the puncture site occurs- Apply gentle pressure to site with clean cloth and call your doctor or EMS. * If a knot or lump forms under the skin, increases in size, or causes pain. * If bruising appears to be worsening or moving further down your leg instead of disappearing. * Temperature above 101 F. CARE OF YOUR GROIN INCISION; * Bruising or purple discoloration of the skin near the puncture site is common. * You may shower only, no bathtub bathing for 5 days. Be careful to avoid slipping as your leg may feel stiff. * If a closure device was used on your femoral artery, please see the attached guide regarding care of the device and your leg. * Leave dressing on FOR 24 hours. CARE OF YOUR WRIST INCISION; * Bruising or purple discoloration of the skin near the puncture site is common. * You may shower. * DO NOT submerge wrist. * Leave dressing on FOR 24 hours. ERICA VALADEZ MD Nov 15, 2022 09:48
--- NOTE | 2022-11-15 09:52 | Cardiac Cath Report ---
Cardiac Cath Report Physician (s)/Ehs Manager (s) Physician ERICA BOWMAN MD Pre-Procedure Diagnosis Pre-Procedure Diagnosis: CAD Post-Procedure Note Procedure Start Date: Nov 15, 2022 Name of Procedure: Left heart catheterization Findings/Procedure Note PROCEDURE NOTE: 57-year-old gentleman with history of coronary artery disease, end-stage kidney disease, has been having recurrent chest pain, known to have extensive coronary artery disease scheduled for diagnostic cardiac catheterization. After explaining the procedure to the patient, all pros and cons were explained, all questions were answered. The patient signed the consent and then he was placed in the cardiac catheterization laboratory. Groin was prepped in SL fashion local anesthesia was used. Sheath placed in the right femoral artery artery. Rocky' left was advanced to the left coronary system and angiogram was done, Rocky right was advanced to the left ventricular cavity, pressure was m easured, pullback LV to aorta was done, did not engage the right coronary artery, known to be occluded At the end of the procedure the sheath was removed. Closure device was deployed FINDINGS: Hemodynamics LV 92/12, end-diastolic pressure of 12 Aorta 78/50 mean of 49 ANATOMY: Left Main is free of obstructive disease Left Anterior Descending has 2 stents in the proximal and mid LAD, there is 70 to 80% mid in-stent restenosis, distally the LAD is occluded getting filled by collaterals Left Circumflex is moderate in size with 40 to 50% stenosis in the mid circumflex artery large artery. Right Coronary Artery is known to be occluded with collateral filling the right coronary artery from the left system LV Gram was not done, pressure was measured CONCLUSION: Occluded right coronary artery which is known to be occluded since 2018 with collateral filling the distal right from the left system Severe in-stent restenosis in the mid LAD with occlusion in the distal LAD getting filled by collaterals Large circumflex artery with 40 to 50% mid circumflex artery stenosis Normal left ventricular end-diastolic pressure DISCUSSION AND RECOMMENDATION: Patient has end-stage kidney disease, conservative management is recommended, I will forward his cath film for evaluation at a tertiary care center for the distal LAD and the in-stent restenosis in the LAD. Anesthesia Type: Conscious Sedation Estimated blood loss (mL): 10 ml Contrast Amount: 14 ml Total Radiation Dose: 280 mGy Post-Procedure Diagnosis Post-operative diagnosis: Chest pain Coronary artery disease Hypertension Hyperlipidemia ERICA BOWMAN MD Nov 15, 2022 09:52
[2022-11-15] MEDS ORDERED: PATIENT MAY USE OWN MEDS, ALL PO SCH (10:00)
[2022-11-15] MEDS ORDERED: NS IV 1000 ML 1,000 ML IV SCH (10:00)
== END 2022-11-15 12:50 | disposition home or self-care (01) ==
LOC: CATH 08:00 → SDC 10:18 → CATH 12:50
PROVIDERS: ATTEND Internal Medicine Cardiovascular Disease
DX: T82.855A Stenosis of coronary artery stent, initial encounter (principal); I25.10 Atherosclerotic heart disease of native coronary artery without angina pectoris; N18.6 End stage renal disease; I08.3 Combined rheumatic disorders of mitral, aortic and tricuspid valves; I11.0 Hypertensive heart disease with heart failure; I50.32 Chronic diastolic (congestive) heart failure; I65.23 Occlusion and stenosis of bilateral carotid arteries; E78.2 Mixed hyperlipidemia; E66.9 Obesity, unspecified; Z28.310 Unvaccinated for COVID-19; Z68.29 Body mass index [BMI] 29.0-29.9, adult; Z87.891 Personal history of nicotine dependence; Z79.899 Other long term (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 therapy; Z87.19 Personal history of other diseases of the digestive system; Z79.82 Long term (current) use of aspirin
CPT/HCPCS: 36415; 71045; 80053; 80061; 85027; 85610; 85730; 87081; 93005; 93458